=== PATIENT | female | born 1945 | race Caucasian/White ===

== ENCOUNTER 2016-08-24 11:09 | Inpatient (IN) | payer MEDICARE, OTHER ==
[~2016-08-24] VITALS: Ht 167.6 cm; Wt 106.8 kg
[~2016-08-24 11:09] MED LIST: CARV12.5 PO; GABA300C5 PO; HUMALOG SQ; LEVO.125 PO; PLAV75TA29 PO; SEVEL800 PO
[2016-08-24] MEDS ORDERED: HEPARIN SODIUM - SQ 10,000 UNITS/ML VIAL ONE (11:40)
[2016-08-24] MEDS ORDERED: BUPIVACAINE/EPINEPHRINE 0.5% PF 30 ML VIAL ONE (11:40)
[2016-08-24] MEDS ORDERED: HEPARIN SODIUM - IV 10,000 UNITS/10 ML VIAL ONE (11:40)
[2016-08-24] MEDS ORDERED: PROTAMINE SULFATE 50 MG/5 ML VIAL ONE (11:41)
[2016-08-24] MEDS ORDERED: LACTATED RINGER'S 1000 ML IV SCH (12:00)
[2016-08-24] MEDS ORDERED: SODIUM CHLORID 0.9% 500 ML IV SCH (12:00)
[2016-08-24] MEDS ORDERED: METOPROLOL TARTRATE 25 MG TAB PO PRN (12:00)
[2016-08-24] MEDS ORDERED: INSULIN HUMAN REGULAR 1,000 UNITS/10 ML VIAL SQ PRN (12:00)
[2016-08-24] MEDS ORDERED: PROPOFOL 200 MG/20 ML AMP IV ONE (12:00)
[2016-08-24] MEDS ORDERED: SODIUM CHLORID 0.9% 500 ML INJ 500 ML IV ONE (12:00)
[2016-08-24] MEDS ORDERED: ePHEDrine/NS 25 MG/5 ML SYR IV ONE (12:00)
[2016-08-24] MEDS ORDERED: ceFAZolin INJ 1,000 MG VIAL ONE (12:08)
[2016-08-24] MEDS ORDERED: SODIUM CHLORIDE 0.9% INJ 100 ML ONE (12:08)
[2016-08-24 12:33] LABS: AUTOMATED NEUTROPHIL # 6.7 TH/MM3 (1.8-7.7); BASOPHIL # 0.1 TH/MM3 (0-0.2); BASOPHIL % 0.9 % (0.0-2.0); EOSINOPHIL # 0.2 TH/MM3 (0-0.4); EOSINOPHIL % 2.4 % (0.0-4.0); HEMATOCRIT 33.9 % (35.0-46.0); HEMO FLAGS DIFF FINAL; LYMPH % 14.7 % (9.0-44.0); LYMPHOCYTE # 1.4 TH/MM3 (1.0-4.8); MEAN CELL VOLUME 94.3 FL (80.0-100.0); MEAN CORPUSCULAR HGB CONC 32.8 % (32.0-36.0); MONO % 11.1 % (0.0-8.0); NEUT % 70.9 % (16.0-70.0); PLATELET COUNT 245 TH/MM3 (150-450); RED BLOOD COUNT 3.59 MIL/MM3 (4.00-5.30); RED CELL DISTRIBUTION WIDTH 13.3 % (11.6-17.2); WHITE BLOOD COUNT 9.5 TH/MM3 (4.0-11.0)
[2016-08-24 12:40] LABS: APTT (PATIENT) 26.8 SEC (24.3-30.1); PROTHROMBIN TIME - PATIENT 10.6 SEC (9.8-11.6)
[2016-08-24 12:42] LABS: BICARBONATE 26.8 MEQ/L (21.0-32.0); POTASSIUM 4.3 MEQ/L (3.5-5.1)
[2016-08-24] MEDS ORDERED: MIDAZOLAM HCL 2 MG/2 ML VIAL ONE (12:45)
[2016-08-24] MEDS ORDERED: DEXAMETHASONE SOD PHOS 4 MG/ML VIAL ONE (12:45)
[2016-08-24] MEDS ORDERED: FAMOTIDINE 20 MG/2 ML VIAL ONE (12:45)
[2016-08-24] MEDS ORDERED: IOHEXOL 300 MG/ML 50 ML BTL (for RAD DIAG) OTHER ONE (13:53)
[2016-08-24] MEDS ORDERED: NITROGLYCERIN 1000 MCG/5 ML VIAL I-CORONARY ONE (14:46)
[2016-08-24] MEDS ORDERED: *morphine SULFATE 8 MG/ML PERIprocedure ONLY ONE ×3 (16:28→18:24)
[2016-08-24] MEDS ORDERED: *ONDANSETRON 4 MG VIAL PERIprocedural Use ONLY ONE (16:32)
[2016-08-24] MEDS: MEDIUM DOSE INSULIN NOVOLIN REGULAR SUPPLEMENTAL SCALE SQ SCH ×2 (16:50→20:44)
[2016-08-24] MEDS ORDERED: ONDANSETRON HCL 4 MG/2 ML VIAL IV PUSH PRN (17:00)
[2016-08-24] MEDS ORDERED: GLUCAGON 1 MG/ML VIAL OTHER PRN (17:00)
[2016-08-24] MEDS ORDERED: SODIUM CHLORIDE 0.9% FLUSH 10 ML FLUSH IV FLUSH PRN (17:00)
[2016-08-24] MEDS ORDERED: SODIUM CHLOR 0.9% 1000 ML INJ 1,000 ML IV ONE (17:00)
[2016-08-24] MEDS ORDERED: ATROPINE SULFATE 1 MG/10 ML SYRINGE IV PRN (17:00)
[2016-08-24] MEDS ORDERED: LIDOCAINE HCL 1% 20 ML VIAL INFIL PRN (17:00)
[2016-08-24] MEDS ORDERED: DEXTROSE 50% IN WATER 50 ML VIAL(D50) IV PUSH PRN (17:00)
[2016-08-24] MEDS ORDERED: CLOPIDOGREL 300 MG TAB PO SCH (17:00)
[2016-08-24] MEDS ORDERED: LORazepam 2 MG/ML VIAL IV PRN (17:00)
[2016-08-24] MEDS ORDERED: SODIUM CHLOR 0.9% 250 ML INJ 250 ML IV PRN (17:00)
[2016-08-24] MEDS ORDERED: DO NOT ADM ANY ANTICOAGULANT DRUGS XX PRN (17:00)
[2016-08-24] MEDS ORDERED: METOCLOPRAMIDE HCL 10 MG/2 ML VIAL IV PRN (17:00)
[2016-08-24] MEDS ORDERED: oxyCODONE/ACETAMINOPHEN 5 MG/325 MG TAB PO PRN (17:15)
[2016-08-24] MEDS ORDERED: NITROPRUSSIDE 50 MG/D5W 250 ML IV PRN ×2 (17:15)
[2016-08-24] MEDS ORDERED: ENALAPRILAT 1.25 MG/ML VIAL IV PUSH PRN (17:15)
[2016-08-24] MEDS ORDERED: POTASSIUM CHLORIDE 20 MEQ CONTROLLED RELEASE TAB PO PRN (17:15)
[2016-08-24] MEDS ORDERED: cloNIDine HCL 0.1 MG TAB PO PRN (17:15)
[2016-08-24] MEDS ORDERED: TEMAZEPAM 15 MG CAP PO PRN (17:15)
[2016-08-24] MEDS ORDERED: MISCELLANEOUS NURSING INFORMATION XX PRN (17:15)
[2016-08-24] MEDS ORDERED: LABETALOL HCL 100 MG/20 ML VIAL IV PRN (17:15)
[2016-08-24] MEDS ORDERED: MORPHINE SULFATE 4 MG/ML INJ IV PRN (17:15)
[2016-08-24 19:34] LABS: BICARBONATE 25.4 MEQ/L (21.0-32.0); POTASSIUM 5.1 MEQ/L (3.5-5.1)
[2016-08-24 20:00] VITALS: BP_SYST 109; BP_SYST 159; BP_DIAS 48; BP_DIAS 63; PULSE 61; PULSE 78; RESP 18; TEMP 97.8; O2SAT 96
[2016-08-24] MEDS: GABAPENTIN 300 MG CAP PO SCH ×2 (20:40→20:56)
[2016-08-24] MEDS: HEPARIN SODIUM - SQ 10,000 UNITS/ML VIAL SQ SCH (20:41)
[2016-08-24] MEDS: CARVEDILOL 12.5 MG TAB PO SCH (20:45)
[2016-08-24] MEDS: LISPRO INSULIN SQ SCH (20:58)
[2016-08-24 21:00] VITALS: PULSE 60
[2016-08-24 22:00] VITALS: PULSE 54
[2016-08-24 23:00] VITALS: PULSE 52
[2016-08-25] VITALS (11 sets, daily range): BP systolic 109–157; BP diastolic 48–71; PULSE 50–60; RESP 18–20; TEMP 97.6–98; O2SAT 99–100
[2016-08-25] MEDS: LISPRO INSULIN SQ SCH ×3 (05:28→16:00)
[2016-08-25] MEDS: MEDIUM DOSE INSULIN NOVOLIN REGULAR SUPPLEMENTAL SCALE SQ SCH ×3 (05:28→16:00)
[2016-08-25] MEDS: CILOSTAZOL 100 MG TAB PO SCH ×2 (05:28→16:00)
[2016-08-25] MEDS ORDERED: LEVOTHYROXINE SODIUM 125 MCG TAB PO SCH (06:00)
[2016-08-25] MEDS: GABAPENTIN 300 MG CAP PO SCH (07:53)
--- NOTE | 2016-08-25 07:53 | EKG ---
Date Performed: 08/24/2016 Time Performed: 12:00:32 PTAGE: 71 years EKG: Sinus rhythm WITH FIRST DEGREE AV BLOCK MARKED LEFT AXIS DEVIATION INTRAVENTRICULAR CONDUCTION DELAY ABNORMAL ECG Compared to PREVIOUS TRACING , there has been widening of the QRS complex and a leftward shift in the axis. There has been an increase in the lateral ST-T wave changes. EKG is now more suggestive of a p ossible old anteroseptal infarct. Clinical correlation is recommended. PREVIOUS TRACIN04/26/2005 0 1.27 DOCTOR: Buffy Hernandez Interpretating Date/Time 08/25/2016 07:53:32
[2016-08-25] MEDS: CARVEDILOL 12.5 MG TAB PO SCH (07:54)
[2016-08-25] MEDS: HEPARIN SODIUM - SQ 10,000 UNITS/ML VIAL SQ SCH (07:54)
[2016-08-25] MEDS: SEVELAMER CARBONATE 800 MG TAB PO SCH ×2 (07:59→12:00)
[2016-08-25] MEDS ORDERED: SODIUM CHLOR 0.9% 1000 ML INJ 1,000 ML IV PRN ×3 (08:54)
[2016-08-25] MEDS ORDERED: HEPARIN SODIUM - IV 10,000 UNITS/10 ML VIAL IVF PRN (09:00)
[2016-08-25] MEDS ORDERED: ACETAMINOPHEN 325 MG TAB PO PRN (09:00)
[2016-08-25] MEDS ORDERED: ALBUMIN HUMAN 25% 25 GM/100 ML BAGP IV PRN (09:00)
[2016-08-25] MEDS ORDERED: cloNIDine HCL 0.1 MG TAB PO PRN (09:00)
[2016-08-25] MEDS ORDERED: GELATIN 12 MM/7 MM FOAM TOP PRN (09:00)
[2016-08-25] MEDS ORDERED: SODIUM CHLORIDE 0.9% FLUSH 10 ML FLUSH IV FLUSH PRN (09:00)
[2016-08-25] MEDS ORDERED: GENTAMICIN SULFATE (DIALYSIS USE ONLY) 20 MG/2 ML VIAL IV PRN (09:00)
[2016-08-25] MEDS ORDERED: HEPARIN SODIUM - IV 10,000 UNITS/10 ML VIAL PRN (09:00)
[2016-08-25] MEDS ORDERED: NITROGLYCERIN 0.4 MG SL 25 TABS/BTL SL PRN (09:00)
[2016-08-25] MEDS ORDERED: ASPIRIN EC 81 MG TABEC PO SCH (09:00)
[2016-08-25] MEDS ORDERED: MANNITOL 12.5 GM/50 ML VIAL IV PRN (09:00)
[2016-08-25] MEDS ORDERED: ONDANSETRON HCL 4 MG/2 ML VIAL IV PRN (09:00)
[2016-08-25] MEDS ORDERED: CLOPIDOGREL 75 MG TAB PO SCH (09:00)
[2016-08-25] MEDS ORDERED: diphenhydrAMINE HCL 25 MG CAP PO PRN (09:00)
--- NOTE | 2016-08-25 09:06 | PD.CONS ---
HPI Service Nephrology Consult Requested By Dr. Brothers Reason for Consult Known ESRD on HD Primary Care Physician Anila (Garret) MD Ad[place] History of Present Illness The patient is a 71 yo [place] female who is known to our services for ESRD on HD. She was admitted to day surgery 08/[address] Brothers for re-vascularization of LLE with amputation of 2nd toe on same foot. We were consulted for dialysis as it is her regularly scheduled day and she will not be discharged in time to have outpatient HD. Feeling well. No NV. Anxious to eat. No specific complaints at the present. (Ayala Simmons) Review of Systems ROS Limitations: Other (ROS negative) (Ayala Simmons) Past Family Social History Allergies: Coded Allergies: Bumex (Verified Allergy, Severe, 08/23/16) PT STATES NOT ALLERGIC Norvasc (Verified Allergy, Severe, 08/23/16) Past Medical History ESRD on HD DM HTN CAD PVD Hx of Osteomyelitis CVA x2 Past Surgical History Sarah CABG 3 vessel RUE AVF formation Cataract repair L 2nd toe amputation Reported Medications Reported Meds & Active Scripts Active Reported Humalog Inj (Insulin Human Lispro) 1,000 Unit/10 Ml Vial Unknown Dose SQ ACHS Max dose at bedtime:( )units; sugars< 70,(0)units; sugars 150-199,(1)unit; sugars 200-249,(3)units; sugars 250-299,(5)units; sugars 300-349,(7)units; sugars more than 349,(9)units. Renvela (Sevelamer Carbonate) 800 Mg Tab 800 Mg PO TID Synthroid (Levothyroxine Sodium) 125 Mcg Tab 125 Mcg PO DAILY Gabapentin 300 Mg Cap 300 Mg PO BID Plavix (Clopidogrel Bisulfate) 75 Mg Tab 75 Mg PO DAILY Coreg (Carvedilol) 12.5 Mg Tab 12.5 Mg PO BID Active Ordered Medications Current Medications Medications (Trade) Dose Ordered Sig/Julius Route Start Time Stop Time Status Last Admin Miscellaneous Information ALL NURSING DEPARTME... UNSCH PRN XX 08/24/16 17:00 08/25/16 16:59 (D50w (Vial) Inj) 25 ml UNSCH PRN IV PUSH 08/24/16 17:00 (Glucagon Inj) 1 mg UNSCH PRN OTHER 08/24/16 17:00 (NS Flush) 2 ml UNSCH PRN IV FLUSH 08/24/16 17:00 (Xylocaine 1% Inj) 10 ml UNSCH PRN INFIL 08/24/16 17:00 (Ativan Inj) 0.5 mg Q10M PRN IV 08/24/16 17:00 Atropine Sulfate 0.5 mg 0.5 mg UNSCH PRN IV 08/24/16 17:00 (NS 250 ml Inj) 250 ml @ 250 mls/hr UNSCH PRN IV 08/24/16 17:00 (Reglan Inj) 10 mg Q4H PRN IV 08/24/16 17:00 (Zofran Inj) 4 mg Q6H PRN IV PUSH 08/24/16 17:00 (Heparin Inj) 5,000 units Q12H SQ 08/24/16 21:00 08/25/16 07:54 (Pletal) 100 mg BIDAC PO 08/25/16 07:00 08/25/16 05:28 (Plavix) 75 mg DAILY PO 08/25/16 09:00 08/25/16 07:54 (Morphine Inj) 4 mg Q30M PRN IV 08/24/16 17:15 (Restoril) 15 mg HS PRN PO 08/24/16 17:15 (Ecotrin Ec) 81 mg DAILY PO 08/25/16 09:00 08/25/16 07:53 (Vasotec Inj) 1.25 mg UNSCH PRN IV PUSH 08/24/16 17:15 Labetalol HCl 2.5 mg 2.5 mg Q10M PRN IV 08/24/16 17:15 (Nipride Inj/D5W Inj) 250 ml @ 0 mls/hr UNSCH PRN IV 08/24/16 17:15 (Catapres) 0.1 mg Q30M PRN PO 08/24/16 17:15 (KCl) 20 meq UNSCH PRN PO 08/24/16 17:15 (Percocet 5-325 Mg) 1 tab Q4H PRN PO 08/24/16 17:15 Miscellaneous Information "HOLD GLUCOPHAGE, GLUCOPH... UNSCH PRN XX 08/24/16 17:15 08/26/16 17:14 (Coreg) 12.5 mg BID PO 08/24/16 21:00 08/25/16 07:54 (Neurontin) 300 mg BID PO 08/24/16 21:00 08/25/16 07:53 (Synthroid) 125 mcg DAILY@06 PO 08/25/16 06:00 08/25/16 05:28 (Renvela) 800 mg TIDAC PO 08/25/16 08:00 08/25/16 07:59 Patient Own Medication PT OWN MED: INSU... ACHS SQ 08/24/16 21:00 08/24/16 20:58 Family History Non-contributory Social History , lives locally with her Non-smoker No EtOH No illicit (Ayala Simmons) Physical Exam Vital Signs Vital Signs Date Time Temp Pulse Resp B/P Pulse Ox O2 Delivery O2 Flow Rate FiO2 08/25/16 06:00 55 08/25/16 05:00 50 08/25/16 04:00 54 08/25/16 04:00 97.6 56 18 124/63 100 08/25/16 03:00 52 08/25/16 02:00 52 08/25/16 01:00 52 08/25/16 00:00 59 08/25/16 00:00 97.6 58 18 109/48 99 08/24/16 23:00 52 08/24/16 22:00 54 08/24/16 21:00 60 08/24/16 20:00 61 08/24/16 20:00 97.8 78 18 159/63 96 08/24/16 19:30 59 18 146/62 99 Nasal Cannula 2 08/24/16 19:15 62 20 157/64 97 Nasal Cannula 2 08/24/16 19:00 63 22 166/73 100 Nasal Cannula 2 08/24/16 18:45 62 22 158/66 99 Nasal Cannula 2 08/24/16 18:30 61 17 172/78 98 Nasal Cannula 2 08/24/16 18:15 56 17 158/66 100 Nasal Cannula 2 08/24/16 18:00 63 16 157/72 100 Nasal Cannula 2 08/24/16 17:45 60 16 167/64 99 Nasal Cannula 2 08/24/16 17:30 61 12 151/65 99 Nasal Cannula 2 08/24/16 17:15 58 16 147/69 100 Nasal Cannula 2 08/24/16 17:00 68 16 160/73 99 Nasal Cannula 2 08/24/16 16:45 66 16 154/67 99 Nasal Cannula 2 08/24/16 16:30 70 16 164/75 100 Nasal Cannula 2 08/24/16 16:24 97.7 80 16 162/76 100 Nasal Cannula 2 Physical Exam GENERAL: Pt sitting up in bed watching TV. Says she is feeling well and looks quite good. SKIN: Warm and dry. HEAD: Atraumatic. Normocephalic. EYES: Pupils equal and round. No scleral icterus. No injection or drainage. ENT: No nasal bleeding or discharge. Mucous membranes pink and moist. NECK: Trachea midline. No JVD. CARDIOVASCULAR: Regular rate and rhythm. RESPIRATORY: No accessory muscle use. Clear to auscultation. Breath sounds equal bilaterally. GASTROINTESTINAL: Abdomen soft, non-tender, nondistended. Hepatic and splenic margins not palpable. MUSCULOSKELETAL: Extremities without clubbing, cyanosis, or edema. L foot bandages in sterile dressings. NEUROLOGICAL: Awake and alert. Normal speech. PSYCHIATRIC: Appropriate mood and affect; insight and judgment normal. Laboratory Laboratory Tests Test 08/24/16 08/24/16 12:00 18:50 White Blood Count 9.5 Red Blood Count 3.59 Hemoglobin 11.1 Hematocrit 33.9 Mean Corpuscular Volume 94.3 Mean Corpuscular Hemoglobin 31.0 Mean Corpuscular Hemoglobin 32.8 Concent Red Cell Distribution Width 13.3 Platelet Count 245 Mean Platelet Volume 7.2 Neutrophils (%) (Auto) 70.9 Lymphocytes (%) (Auto) 14.7 Monocytes (%) (Auto) 11.1 Eosinophils (%) (Auto) 2.4 Basophils (%) (Auto) 0.9 Neutrophils # (Auto) 6.7 Lymphocytes # (Auto) 1.4 Monocytes # (Auto) 1.0 Eosinophils # (Auto) 0.2 Basophils # (Auto) 0.1 CBC Comment DIFF FINAL Differential Comment Prothrombin Time 10.6 Prothromb Time International 1.0 Ratio Activated Partial 26.8 Thromboplast Time Sodium Level 134 135 Potassium Level 4.3 5.1 Chloride Level 97 101 Carbon Dioxide Level 26.8 25.4 Anion Gap 10 9 Blood Urea Nitrogen 24 27 Creatinine 3.94 3.90 Estimat Glomerular Filtration 11 11 Rate Random Glucose 177 210 Calcium Level 9.7 9.4 Blood Type O NEGATIVE Antibody Screen NEGATIVE Blood Bank Comment (Ayala Simmons) Result Diagram: 08/24/16 1200 08/24/16 2270 Assessment and Plan Problem List: (1) ESRD (end stage renal disease) on dialysis Plan: Pt to be changed to admit status for HD as she will not be discharged in [facility] today to have outpatient tx. Order placed. Contacted HD nurse. HD orders in. Medications should be adjusted for the patient's ESRD. Avoid gadolinium. (2) Diabetes mellitus Plan: Continue home medications (on insulin pump) (3) Hypertension Plan: Continue home medications (4) Peripheral vascular disease Plan: s/p revascularization and toe amputation with Dr. Brothers (5) Amputated toe of left foot Plan: Mgmt as per Zev (Ayala Simmons) Assessment and Plan The exam, history, and the medical decision-making described in the above note were completed with the assistance of the PA-C. I reviewed and agree with the findings presented. I attest that I had a [id number] encounter with the patient on the same day, and personally performed and documented my assessment and findings in the medical record. (Kimberly Sampson MD) Ayala Simmons Aug 25, 2016 09:05 Kimberly Sampson MD Aug 25, 2016 17:10
--- NOTE | 2016-08-25 17:11 | HHI.PR ---
Subjective Remarks Patient was seen during her dialysis session today. Some difficulty accessing her fistula but currently we are achieving adequate blood flow. Patient alert and orientated. Lungs clear. Patient will likely be discharged today. Will follow-up in the outpatient dialysis unit. Objective Vital Signs Date Time Temp Pulse Resp B/P Pulse Ox O2 Delivery O2 Flow Rate FiO2 08/25/16 12:00 97.9 18 147/68 99 08/25/16 08:00 60 08/25/16 07:00 98.0 56 20 157/71 100 08/25/16 06:00 55 08/25/16 05:00 50 08/25/16 04:00 54 08/25/16 04:00 97.6 56 18 124/63 100 08/25/16 03:00 52 08/25/16 02:00 52 08/25/16 01:00 52 08/25/16 00:00 59 08/25/16 00:00 97.6 58 18 109/48 99 08/24/16 23:00 52 08/24/16 22:00 54 08/24/16 21:00 60 08/24/16 20:00 61 08/24/16 20:00 97.8 78 18 159/63 96 08/24/16 19:30 59 18 146/62 99 Nasal Cannula 2 08/24/16 19:15 62 20 157/64 97 Nasal Cannula 2 08/24/16 19:00 63 22 166/73 100 Nasal Cannula 2 08/24/16 18:45 62 22 158/66 99 Nasal Cannula 2 08/24/16 18:30 61 17 172/78 98 Nasal Cannula 2 08/24/16 18:15 56 17 158/66 100 Nasal Cannula 2 08/24/16 18:00 63 16 157/72 100 Nasal Cannula 2 08/24/16 17:45 60 16 167/64 99 Nasal Cannula 2 08/24/16 17:30 61 12 151/65 99 Nasal Cannula 2 08/24/16 17:15 58 16 147/69 100 Nasal Cannula 2 I/O 08/24/16 08/24/16 08/24/16 08/25/16 08/25/16 08/25/16 07:00 15:00 23:00 07:00 15:00 23:00 Intake Total 20 ml Balance 20 ml Intake IV Total 20 ml Result Diagram: 08/24/16 1200 08/24/16 1850 Kimberly Sampson MD Aug 25, 2016 17:11
--- NOTE | 2016-08-27 08:26 | MP ---
cc: JULIA BROTHERS M.D., STEVE M.D. DATE OF SURGERY 08/24/2016 PREOPERATIVE DIAGNOSIS Ischemic gangrene left second toe. POSTOPERATIVE DIAGNOSIS Ischemic gangrene left second toe. PROCEDURE Left superficial femoral and popliteal orbital atherectomy with percutaneous balloon angioplasty - drug coated. SURGEON Julia Brothers MD CHUCK TENDER TIM Winston ANESTHESIA Local MAC DESCRIPTION OF THE OPERATIVE PROCEDURE With the patient in the supine position and under IV sedation, the lower abdomen, both groins and thighs were prepped with Betadine and draped in a sterile fashion. One gram of Ancef was administered prophylactically and following a protocol time-out, the skin and subcutaneous tissue surrounding the right common femoral access site infiltrated with 0.5% Marcaine with epinephrine. Utilizing ultrasound guidance, an 18 gauge needle was negotiated into the right mid common femoral, retrograde approach. A J-wire was advanced under fluoroscopic guidance into the right external iliac artery. An Advantage guidewire Omni catheter combination was negotiated into the subrenal aorta. Diluted contrast was injected through the Omni catheter in conjunction with digital C-arm fluoroscopic imaging. The distal aorta, both common internal and external iliac arteries were widely patent throughout. The proximal left superficial femoral artery exhibited a high-grade, diffuse stenosis along its proximal one-third, at least 90% stenotic at its origin. The more distal SFA appeared less disease, however, the popliteal exhibited diffuse stenosis from the adductor level to the knee joint level. At the mid above-knee popliteal, near-complete occlusion was apparent. The below-knee popliteal was relatively non-diseased and a normal-appearing posterior tibial provided uninterrupted flow to the left foot with robust visualization of the plantar arch, tarsal and metatarsal vessels. An Advantage guidewire was negotiated over the aortic bifurcation into the left iliac. The 5-Taiwanese hemostatic sheath was exchanged for a 45 cm Taiwanese sheath which was guided over the aortic bifurcation and parked within the proximal left common femoral artery. The patient was systemically heparinized with 5000 units. During the course of the procedure, additional 1000 units aliquots of heparin were administered to maintain ACT above 250. The left popliteal and SFA disease was orbitally atherectomized with a CSI 2.0 solid crown spun at 60, 90 and 140 thousand RPMs. Post-atherectomy, the popliteal was treated with a 4 x 130 mm balloon inflated to 8 atmospheres, two separate inflations of two minutes each followed by a 5 x 130 mm drug coated balloon inflated to 8 atmospheres for three minutes. The SFA atherectomized area was treated with a 5 x 80 mm balloon followed by a 5 x 60 drug coated balloon, identical inflations and times. Completion angiogram revealed no residual stenotic disease with rapid flow through the left SFA to the plantar arch. The long 6-Taiwanese sheath was exchanged for a short 6-Taiwanese sheath. The Heparin was not reversed. The patient returned to recovery in stable condition having tolerated the procedure well. MD SHAKEEL Mejía/LIDYA /7:54 AM /8:15 AM
--- NOTE | 2016-09-09 08:34 | MP ---
cc: JULIA BROTHERS M.D. DATE OF SURGERY 08/24/2016 PREOPERATIVE DIAGNOSIS Ischemic gangrene left second toe. POSTOPERATIVE DIAGNOSIS Ischemic gangrene left second toe. OPERATIVE PROCEDURE Amputation left second toe. SURGEON Viral Brothers MD CUSTOMER SERVICE SUPERVISOR TIM Winston ANESTHESIA Local MAC. DESCRIPTION OF THE OPERATIVE PROCEDURE With the patient in supine position and under IV sedation following left SFA and popliteal orbital atherectomy/percutaneous balloon angioplasty, digital block left second toe was accomplished with 1% Xylocaine with epinephrine. A circumferential "fish-mouth shaped" incision was performed around the base of the left second toe. Superficial skin flaps were dissected to the metatarsophalangeal joint. Flexor and extensor tendons were transected. The proximal phalanx was transected with a bone cutter. The wound was irrigated with saline. Skin edges were reapproximated with skin jessika. Sterile dressing applied. No operative complications. The patient returned to the recovery room in stable condition having tolerated the procedure well. Julia Brothers MD JTS/SSB /3:25 PM /8:29 AM
== END 2016-08-25 18:42 | disposition home or self-care (01) | DRG 270 ==
LOC: HSDC 11:09 → HCIS 19:45 → OBSVTOIN 19:45
PROVIDERS: ADMIT Surgery Vascular Surgery; ATTEND Surgery Vascular Surgery
PROC: 04CN3ZZ Extirpation of Matter from Left Popliteal Artery, Percutaneous Approach (ICD-10-PCS; 2016-08-24)
PROC: B41DZZZ Fluoroscopy of Aorta and Bilateral Lower Extremity Arteries (ICD-10-PCS; 2016-08-24)
PROC: 0Y6S0Z3 Detachment at Left 2nd Toe, Low, Open Approach (ICD-10-PCS; 2016-08-24)
PROC: 04CL3ZZ Extirpation of Matter from Left Femoral Artery, Percutaneous Approach (ICD-10-PCS; principal; 2016-08-24 13:10)
PROC: 047L34Z Dilation of Left Femoral Artery with Drug-eluting Intraluminal Device, Percutaneous Approach (ICD-10-PCS; 2016-08-24 13:10)
PROC: 047N34Z Dilation of Left Popliteal Artery with Drug-eluting Intraluminal Device, Percutaneous Approach (ICD-10-PCS; 2016-08-24 13:10)
PROC: 5A1D00Z (ICD-10-PCS; 2016-08-25)
DX: I70.262 Atherosclerosis of native arteries of extremities with gangrene, left leg (principal); N18.6 End stage renal disease; E11.22 Type 2 diabetes mellitus with diabetic chronic kidney disease; I12.0 Hypertensive chronic kidney disease with stage 5 chronic kidney disease or end stage renal disease; Z96.41 Presence of insulin pump (external) (internal); E78.5 Hyperlipidemia, unspecified; I25.10 Atherosclerotic heart disease of native coronary artery without angina pectoris; E66.9 Obesity, unspecified; Z68.38 Body mass index [BMI] 38.0-38.9, adult; Z99.2 Dependence on renal dialysis; Z79.4 Long term (current) use of insulin; Z95.1 Presence of aortocoronary bypass graft
CPT/HCPCS: 75710; 80048; 82948; 85025; 85610; 85730; 86850; 86900; 86901; 88305; 88311; 90935; 93005; C1725; C1769; C1887; C2623; J0690; J1100; J1644; J2250; J2270; J2405; J2720; J3010; J7040; Q9967

== ENCOUNTER 2017-07-21 11:36 | Inpatient (IN) | payer MEDICARE, OTHER ==
[2017-07-21] VITALS (8 sets, daily range): BP systolic 144–222; BP diastolic 63–87; PULSE 61–75; RESP 16–20; TEMP 97.8–98.1; O2SAT 92–99
[~2017-07-21] VITALS: Ht 167.6 cm; Wt 107.0 kg
[2017-07-21] MEDS ORDERED: ONDANSETRON HCL 4 MG/2 ML VIAL IVP ONE (12:00)
[2017-07-21] MEDS ORDERED: SODIUM CHLORID 0.9% 500 ML INJ 500 ML IV ONE (12:00)
--- NOTE | 2017-07-21 12:33 | PD ---
HPI Chief Complaint: GI Complaint Time Seen by Provider: 11:54 Travel History International Travel<30 days: No Contact w/Intl Traveler<30days: No Traveled to known affect area: No History of Present Illness HPI 71-year-old female that presents to the ED for evaluation of nausea and vomiting since yesterday. Per patient she has significant history of CVA, kidney failure on dialysis and diabetes as well as history of ACS that presents to the ED for evaluation of emesis 7. Per patient she feels dizzy and she gets lightheaded whenever she stands up. She's also been noted to be pale. She denies any blood in her emesis. Denies any abdominal pain no chest pain or shortness of breath. She states that opening her eyes makes the symptoms worse. She denies any head injury or any new foods or drinks the car caused this. No diarrhea or bowel movement changes. She's had normal bowel movements. Takes blood thinners. Denies any symptoms like this in the past. She went to see her doctor who told her to come here to get evaluated. She had her last dialysis yesterday and she states that she was doing fine except she felt little dry yesterday. She has no other medical issues. Denies any numbness, tingling, weakness. She is hard to get a history as her nausea appears to be affecting her. PFSH Past Medical History Arthritis: Yes Autoimmune Disease: No Blood Disorders: No Cancer: No Cardiovascular Problems: Yes High Cholesterol: Yes Congestive Heart Failure: Yes Diabetes: Yes Endocrine: Yes Genitourinary: Yes (DIALYSIS MON, WED, FRI) Hepatitis: No Hiatal Hernia: No Hypertension: Yes Immune Disorder: No Musculoskeletal: Yes Neurologic: Yes (3 CAMERON IN THE PAST) Psychiatric: No Reproductive: No Respiratory: No Renal Failure: Yes Thyroid Disease: Yes Past Surgical History Abdominal Surgery: Yes (GALLBLADDER 1973, APPY 194) AICD: No Body Medical Devices: INSULIN PUMP, RUE DIALYSIS GRAFT STERNAL WIRES Cardiac Surgery: Yes (BYPASS TRIPLE ) Ear Surgery: No Endocrine Surgery: Yes Eye Surgery: Yes (CATARCT BILATERAL) Genitourinary Surgery: No Gynecologic Surgery: No Joint Replacement: No Oral Surgery: No Pacemaker: No Thoracic Surgery: Yes Social History Alcohol Use: No Tobacco Use: No Substance Use: No Allergies-Medications (Allergen,Severity, Reaction): Coded Allergies: amlodipine (Unverified Allergy, Severe, 8/15/17) bumetanide (Unverified Allergy, Severe, 01/11/17) PT STATES NOT ALLERGIC Reported Meds & Prescriptions Reported Meds & Active Scripts Active Reported Sensipar (Cinacalcet) 30 Mg Tab 30 Mg PO DAILY Humalog Inj (Insulin Human Lispro) 1,000 Unit/10 Ml Vial SQ ACHS SLIDING SCALE DIRECTED Synthroid (Levothyroxine Sodium) 125 Mcg Tab 125 Mcg PO DAILY Gabapentin 300 Mg Cap 300 Mg PO BID Plavix (Clopidogrel Bisulfate) 75 Mg Tab 75 Mg PO DAILY Coreg (Carvedilol) 12.5 Mg Tab 12.5 Mg PO BID Review of Systems Except as stated in HPI: all other systems reviewed are Neg Physical Exam Narrative GENERAL: SKIN: Warm and dry. HEAD: Atraumatic. Normocephalic. EYES: Pupils equal and round. No scleral icterus. No injection or drainage. ENT: No nasal bleeding or discharge. Mucous membranes pink and moist. Tongue is midline. No uvula deviation. TMS are clear bilaterally with no sign of infection or perforation. NECK: Trachea midline. No JVD. CARDIOVASCULAR: Regular rate and rhythm. No murmurs, S3, S4. RESPIRATORY: No accessory muscle use. Clear to auscultation. Breath sounds equal bilaterally. GASTROINTESTINAL: Abdomen soft, non-tender, nondistended. Hepatic and splenic margins not palpable. MUSCULOSKELETAL: Extremities without clubbing, cyanosis, or edema. No obvious deformities. Full range of motion of the upper and lower extremities bilaterally. 2+ pulses bilaterally. NEUROLOGICAL: Awake and alert. No obvious cranial nerve deficits. Motor grossly within normal limits. Five out of 5 muscle strength in the arms and legs. Normal speech. PSYCHIATRIC: Appropriate mood and affect; insight and judgment normal. Data Data Last Documented VS Vital Signs Date Time Temp Pulse Resp B/P (MAP) Pulse Ox O2 Delivery O2 Flow Rate FiO2 07/21/17 13:26 19 07/21/17 12:53 64 193/87 (122) 96 Room Air 07/21/17 11:37 98.1 Orders Orders Complete Blood Count With Diff (07/21/17 11:58) Comprehensive Metabolic Panel (07/21/17 11:58) Lipase (07/21/17 11:58) Lactic Acid (07/21/17 11:58) Prothrombin Time / Inr (Pt) (07/21/17 11:58) Act Partial Throm Time (Ptt) (07/21/17 11:58) Urinalysis - C+S If Indicated (07/21/17 11:58) Iv Access Insert/Monitor (07/21/17 11:58) Ecg Monitoring (07/21/17 11:58) Oximetry (07/21/17 11:58) Ondansetron Inj (Zofran Inj) (07/21/17 12:00) Electrocardiogram (07/21/17 11:58) Sodium Chlorid 0.9% 500 Ml Inj (Ns 500 M (07/21/17 12:00) Troponin I (07/21/17 11:58) Ckmb (Isoenzyme) Profile (07/21/17 11:58) Chest, Single Ap (07/21/17 ) Ct Brain W/O Iv Contrast(Rout) (07/21/17 ) Promethazine Inj (Phenergan Inj) (07/21/17 13:15) CKMB (07/21/17 12:57) CKMB% (07/21/17 12:57) Metoclopramide Inj (Reglan Inj) (07/21/17 14:00) Morphine Inj (Morphine Inj) (07/21/17 14:00) Aspirin (Aspirin) (07/21/17 14:00) Heparin-D5w 25,000 U/250 Ml (Heparin-D5w (07/21/17 16:00) Act Partial Throm Time (Ptt) (07/21/17 14:07) Prothrombin Time / Inr (Pt) (07/21/17 14:07) Cbc No Diff, Includes Plts (07/21/17 14:07) Cbc No Diff, Includes Plts (07/24/17 06:00) Act Partial Throm Time (Ptt) (07/21/17 21:07) Occult Blood (Hemoccult) Stool (07/21/17 14:07) Nitroglycerin 2% Oint (Nitroglycerin 2% (07/21/17 14:30) Admit Order (Ed Use Only) (07/21/17 14:25) Admit To Inpatient (07/21/17 ) Vital Signs (Adult) Q4H (07/21/17 14:24) Activity Oob With Assistance (07/21/17 14:24) Project Design Engineer / Telemetry .CONTINUOUS (07/21/17 14:24) Diet Npo (07/21/17 Dinner) Sodium Chloride 0.9% Flush (Ns Flush) (07/21/17 14:30) Sodium Chloride 0.9% Flush (Ns Flush) (07/21/17 21:00) Basic Metabolic Panel (Bmp) (07/22/17 06:00) Complete Blood Count With Diff (07/22/17 06:00) Creatine Kinase (Cpk) (07/21/17 19:00) Creatine Kinase (Cpk) (07/22/17 01:00) Troponin I (07/21/17 19:00) Troponin I (07/22/17 01:00) Electrocardiogram (07/21/17 19:00) Electrocardiogram (07/22/17 01:00) Pt Request For Service (07/21/17 14:24) Case Management Consult (07/21/17 14:24) Naloxone Inj (Narcan Inj) (07/21/17 14:30) Inpatient Certification (07/21/17 ) Labs Laboratory Tests Test 07/21/17 12:57 White Blood Count 12.3 TH/MM3 Red Blood Count 3.82 MIL/MM3 Hemoglobin 12.4 GM/DL Hematocrit 36.8 % Mean Corpuscular Volume 96.2 FL Mean Corpuscular Hemoglobin 32.3 PG Mean Corpuscular Hemoglobin Concent 33.6 % Red Cell Distribution Width 14.2 % Platelet Count 314 TH/MM3 Mean Platelet Volume 7.4 FL Neutrophils (%) (Auto) 85.9 % Lymphocytes (%) (Auto) 9.0 % Monocytes (%) (Auto) 4.2 % Eosinophils (%) (Auto) 0.2 % Basophils (%) (Auto) 0.7 % Neutrophils # (Auto) 10.5 TH/MM3 Lymphocytes # (Auto) 1.1 TH/MM3 Monocytes # (Auto) 0.5 TH/MM3 Eosinophils # (Auto) 0.0 TH/MM3 Basophils # (Auto) 0.1 TH/MM3 CBC Comment DIFF FINAL Differential Comment Prothrombin Time 10.3 SEC Prothromb Time International Ratio 1.0 RATIO Activated Partial Thromboplast Time 25.9 SEC Blood Urea Nitrogen 32 MG/DL Creatinine 4.16 MG/DL Random Glucose 307 MG/DL Total Protein 8.3 GM/DL Albumin 3.5 GM/DL Calcium Level 10.4 MG/DL Alkaline Phosphatase 110 U/L Aspartate Amino Transf (AST/SGOT) 39 U/L Alanine Aminotransferase (ALT/SGPT) 16 U/L Total Bilirubin 0.4 MG/DL Sodium Level 137 MEQ/L Potassium Level 4.2 MEQ/L Chloride Level 101 MEQ/L Carbon Dioxide Level 26.8 MEQ/L Anion Gap 9 MEQ/L Estimat Glomerular Filtration Rate 11 ML/MIN Lactic Acid Level 1.2 mmol/L Total Creatine Kinase 230 U/L Creatine Kinase MB 18.3 NG/ML Creatine Kinase MB % 8.0 % Troponin I 12.70 NG/ML Lipase 178 U/L MDM Medical Decision Making Medical Screen Exam Complete: Yes Emergency Medical Condition: Yes Medical Record Reviewed: Yes Interpretation(s) CBC & BMP Diagram 07/21/17 12:57 Total Protein 8.3 H, Albumin 3.5, Calcium Level 10.4 H, Alkaline Phosphatase 110 , Aspartate Amino Transf (AST/SGOT) 39 H, Alanine Aminotransferase (ALT/SGPT) 16 , Total Bilirubin 0.4 Last Impressions Chest X-Ray 07/21/17 0000 Signed Impressions: Service Date/Time: , July 21, 2017 12:13 - CONCLUSION: 1. Chronic appearing interstitial changes with a small area of atelectasis on the left. No acute abnormality. Satish Sanchez MD troponin of 12.7 CKMB elevated EKG shows atrial fibrillation but no ST elevation read by me and attending. Differential Diagnosis Hypertension versus hypertensive emergency versus nausea and vomiting versus intractable nausea and vomiting versus a typical chest pain versus dehydration versus electrolyte abnormality versus CVA Narrative Course 71-year-old female that presents to the ED for evaluation of nausea and vomiting. Patient was properly examined and was found to have signs and symptoms which appear to be consistent with motion vomiting. Platelet this time the patient does have significant medical history. She's had her her dialysis yesterday. She does appear to be very hypertensive on exam. Labs and imaging were ordered. Patient was given antiemetics and fluids. Labs and imaging came back and show what appears to be possible NSTEMI. patient still denies chest pain. Questionable whether this is angina equivalent. Case discussed with Dr Hinojosa who evaluated patient and agrees with admission. Started on nitroglycerin, aspirin, heparin. Admitted to Dr Blake who agrees to admission. Dr Khanna for cardiology agrees to follow patient and treatment plan. Procedures EKG Prior to Arrival: No Diagnosis Primary Impression: NSTEMI (non-ST elevated myocardial infarction) Additional Impression: ESRD (end stage renal disease) on dialysis Admitting Information Admitting Physician Requests: Admit Trino Koch Jul 21, 2017 12:33
--- NOTE | 2017-07-21 13:02 | RADRPT ---
EXAM DATE/TIME: 07/21/2017 12:13 [facility] COMPARISON: No previous studies available for comparison. INDICATIONS : Nausea, vomiting, weakness, short of breath for 24 hours MEDICAL HISTORY : Cardiovascular disease. SURGICAL HISTORY : CABG. ENCOUNTER: Initial ACUITY: 1 day PAIN SCORE: 0/10 LOCATION: Bilateral chest FINDINGS: The heart is mildly enlarged. The patient is post median sternotomy. There are chronic appearing inte rstitial changes. There is a small band of linear atelectasis in the left midlung field. The visualized bony structures are grossly intact. CONCLUSION: 1. Chronic appearing interstitial changes with a small area of atelectasis on the left. No acute abno rmality. Satish Sanchez MD on July 21, 2017 at 12:58 Board Certified Radiologist. This report was verified electronically.
[2017-07-21] MEDS ORDERED: PROMETHAZINE INJ 25 MG/ML VIAL IM ONE (13:15)
[2017-07-21 13:16] LABS: AUTOMATED NEUTROPHIL # 10.5 TH/MM3 (1.8-7.7); BASOPHIL # 0.1 TH/MM3 (0-0.2); BASOPHIL % 0.7 % (0.0-2.0); EOSINOPHIL % 0.2 % (0.0-4.0); HEMATOCRIT 36.8 % (35.0-46.0); HEMOGLOBIN 12.4 GM/DL (11.6-15.3); LYMPHOCYTE # 1.1 TH/MM3 (1.0-4.8); MEAN CELL VOLUME 96.2 FL (80.0-100.0); MEAN CORPUSCULAR HEMOGLOBIN 32.3 PG (27.0-34.0); MEAN CORPUSCULAR HGB CONC 33.6 % (32.0-36.0); MEAN PLATELET VOLUME 7.4 FL (7.0-11.0); MONO % 4.2 % (0.0-8.0); MONOCYTE # 0.5 TH/MM3 (0-0.9); NEUT % 85.9 % (16.0-70.0); PLATELET COUNT 314 TH/MM3 (150-450); RED BLOOD COUNT 3.82 MIL/MM3 (4.00-5.30); RED CELL DISTRIBUTION WIDTH 14.2 % (11.6-17.2); WHITE BLOOD COUNT 12.3 TH/MM3 (4.0-11.0)
[2017-07-21 13:32] LABS: PROTHROMBIN TIME - PATIENT 10.3 SEC (9.8-11.6)
[2017-07-21 13:35] LABS: ALBUMIN 3.5 GM/DL (3.4-5.0); ALT (GPT) 16 U/L (10-53); AST (GOT) 39 U/L (15-37); BICARBONATE 26.8 MEQ/L (21.0-32.0); BLOOD UREA NITROGEN 32 MG/DL (7-18); CALCIUM 10.4 MG/DL (8.5-10.1); CHLORIDE 101 MEQ/L (98-107); CREATININE 4.16 MG/DL (0.50-1.00); GLOMERULAR FILTRATION RATE 11 ML/MIN (>89); GLUCOSE,RANDOM 307 MG/DL (74-106); SODIUM (NA) 137 MEQ/L (136-145)
[2017-07-21 13:37] LABS: ALKALINE PHOSPHATASE 110 U/L (45-117); TOTAL BILIRUBIN ADULT 0.4 MG/DL (0.2-1.0); TOTAL PROTEIN 8.3 GM/DL (6.4-8.2)
[2017-07-21 13:58] LABS: TROPONIN I 12.7 NG/ML (0.02-0.05)
[2017-07-21] MEDS ORDERED: METOCLOPRAMIDE HCL 10 MG/2 ML VIAL IV PUSH ONE (14:00)
[2017-07-21] MEDS: ASPIRIN 325 MG TAB PO ONE ×2 (14:00→14:06)
[2017-07-21] MEDS ORDERED: MORPHINE SULFATE 4 MG/ML INJ IV PUSH ONE (14:00)
[2017-07-21] MEDS ORDERED: CINA30 PO (14:01)
[2017-07-21] MEDS ORDERED: NITROGLYCERIN 2% OINT 1 GM PACKET TOPICAL ONE (14:30)
[2017-07-21] MEDS ORDERED: SODIUM CHLORIDE 0.9% FLUSH 10 ML FLUSH IV FLUSH PRN (14:30)
[2017-07-21] MEDS ORDERED: NALOXONE HCL 0.4 MG/ML AMP IV PUSH PRN (14:30)
--- NOTE | 2017-07-21 14:36 | HHI.HP ---
[facility] Anila (Garret) MD [place] Admission Diagnosis NSTEMI, intractable nausea and vomit, angina equivalent? Diagnoses: Travel History International Travel<30 Days: No Contact w/Intl Traveler <30 Da: No Traveled to Known Affected Are: No History of Present Illness History from patient, ER physician communication, review of her medical records. Patient is quite lethargic at the time of my examination. She reports that she just got morphine prior to my arrival. She reports for the past 24 hours, she has been extremely nauseous. She vomited 7 times. Denies any blood in her vomitus. Denies any associated abdominal pain. Denies any diarrhea or constipation. Denies any chest pain or tightness. Denies shortness of breath. Report she was having cold chills at the time for the past 24 hours. Denies any sinus symptoms/cough/fever/nausea/vomiting/diarrhea/urinary burning or pain on urination in the past 1-2 weeks apart from her current symptoms in the past 24 hours. Patient's at the bedside stated that patient was here in August 2016 for her left toes amputation by Dr. Brothers. Prior to that, she was at [facility] and had undergone cardiac stress test and angiogram for cardiac clearance by Dr. De Leon. She then had her amputation and had another complicated infection in her toes within a few weeks for which she was treated with antibiotics by rib knitter Dr. Diego. Her last hospitalization was about 10 months ago. In the emergency room, patient was found to have troponin of 12. As far as the family knows, she has not had any similar lab abnormalities. She is end-stage renal disease patient on hemodialysis. She last received her dialysis yesterday. To the ER PA, patient was complaining of pain prior to my arrival. However she reported pain to me and the ER physician as all over. It is somewhat difficult called to get history from the patient at this time because she is falling asleep during interview. 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 Father with cancer. Social History Denies smoking/alcohol abuse/drug abuse. Physical Exam Vital Signs Vital Signs Date Time Temp Pulse Resp B/P (MAP) Pulse Ox O2 Delivery O2 Flow Rate FiO2 07/21/17 13:26 19 07/21/17 12:53 64 20 193/87 (122) 96 Room Air 07/21/17 11:37 98.1 69 16 222/86 (131) 98 Room Air Physical Exam GENERAL: This is a well-nourished, well-developed patient, in no apparent distress. but is drowsy SKIN: No rashes, ecchymoses or lesions. Cool and dry. HEAD: Atraumatic. Normocephalic. No temporal or scalp tenderness. EYES: No scleral icterus. No injection or drainage. ENT: Nose without bleeding, purulent drainage or septal hematoma. Airway patent. NECK: Trachea midline. No JVD CARDIOVASCULAR: Regular rate and rhythm without murmurs, gallops, or rubs. RESPIRATORY: Clear to auscultation. Breath sounds equal bilaterally. No wheezes , rales, or rhonchi. GASTROINTESTINAL: Abdomen soft, non-tender, nondistended. No guarding. MUSCULOSKELETAL: Extremities without clubbing, cyanosis, or edema. . No calf tenderness. NEUROLOGICAL: Awake and alert. Motor and sensory grossly within normal limits. Normal speech. Laboratory Laboratory Tests Test 07/21/17 12:57 White Blood Count 12.3 Red Blood Count 3.82 Hemoglobin 12.4 Hematocrit 36.8 Mean Corpuscular Volume 96.2 Mean Corpuscular Hemoglobin 32.3 Mean Corpuscular Hemoglobin Concent 33.6 Red Cell Distribution Width 14.2 Platelet Count 314 Mean Platelet Volume 7.4 Neutrophils (%) (Auto) 85.9 Lymphocytes (%) (Auto) 9.0 Monocytes (%) (Auto) 4.2 Eosinophils (%) (Auto) 0.2 Basophils (%) (Auto) 0.7 Neutrophils # (Auto) 10.5 Lymphocytes # (Auto) 1.1 Monocytes # (Auto) 0.5 Eosinophils # (Auto) 0.0 Basophils # (Auto) 0.1 CBC Comment DIFF FINAL Differential Comment Prothrombin Time 10.3 Prothromb Time International Ratio 1.0 Activated Partial Thromboplast Time 25.9 Blood Urea Nitrogen 32 Creatinine 4.16 Random Glucose 307 Total Protein 8.3 Albumin 3.5 Calcium Level 10.4 Alkaline Phosphatase 110 Aspartate Amino Transf (AST/SGOT) 39 Alanine Aminotransferase (ALT/SGPT) 16 Total Bilirubin 0.4 Sodium Level 137 Potassium Level 4.2 Chloride Level 101 Carbon Dioxide Level 26.8 Anion Gap 9 Estimat Glomerular Filtration Rate 11 Lactic Acid Level 1.2 Total Creatine Kinase 230 Creatine Kinase MB 18.3 Creatine Kinase MB % 8.0 Troponin I 12.70 Lipase 178 Result Diagram: 07/21/17 1257 07/21/17 1257 Imaging Last 48 hours Impressions Chest X-Ray 07/21/17 0000 Signed Impressions: Service Date/Time: June 12:13 - CONCLUSION: 1. Chronic appearing interstitial changes with a small area of atelectasis on the left. No acute abnormality. Satish Sanchez MD Caprini VTE Risk Assessment Caprini VTE Risk Assessment: Mod/High Risk (score >= 2) Caprini Risk Assessment Model Point Value = 1 Point Value = 2 Point Value = 3 Point Value = 5 Age 41-60 Minor surgery BMI > 25 kg/m2 Swollen legs Varicose veins or History of unexplained or recurrent spontaneous Oral contraceptives or hormone replacement Sepsis (< 1 month) Serious lung disease, including pneumonia (< 1 month) Abnormal pulmonary function Acute myocardial infarction Congestive heart failure (< 1 month) History of inflammatory bowel disease Medical patient at bed rest Age 61-74 Arthroscopic surgery Major open surgery (> 45 min) Laparoscopic surgery (> 45 min) Malignancy Confined to bed (> 72 hours) Immobilizing plaster cast Central venous access Age >= 75 History of VTE Family history of VTE Factor V Leiden Prothrombin [id number] Lupus anticoagulant Anticardiolipin antibodies Elevated serum homocysteine Heparin-induced thrombocytopenia Other congenital or acquired thrombophilia Stroke (< 1 month) Elective arthroplasty Hip, pelvis, or leg fracture Acute spinal cord injury (< 1 month) Prophylaxis Regimen Total Risk Factor Score Risk Level Prophylaxis Regimen 0-1 Low Early ambulation 2 Moderate Order ONE of the following: *Sequential Compression Device (SCD) *Heparin 5000 units SQ BID 3-4 Higher Order ONE of the following medications: *Heparin 5000 units SQ TID *Enoxaparin/Lovenox 40 mg SQ daily (WT < 150 kg, CrCl > 30 mL/min) *Enoxaparin/Lovenox 30 mg SQ daily (WT < 150 kg, CrCl > 10-29 mL/min) *Enoxaparin/Lovenox 30 mg SQ BID (WT < 150 kg, CrCl > 30 mL/min) AND/OR *Sequential Compression Device (SCD) 5 or more Highest Order ONE of the following medications: *Heparin 5000 units SQ TID (Preferred with Epidurals) *Enoxaparin/Lovenox 40 mg SQ daily (WT < 150 kg, CrCl > 30 mL/min) *Enoxaparin/Lovenox 30 mg SQ daily (WT < 150 kg, CrCl > 10-29 mL/min) *Enoxaparin/Lovenox 30 mg SQ BID (WT < 150 kg, CrCl > 30 mL/min) AND *Sequential Compression Device (SCD) Assessment and Plan Assessment and Plan Impression: Persistent nausea/vomiting. Possible angina equivalent. 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 Nitropaste. Serial cardiac enzymes and EKGs. Head CT. Heparin drip to start if head CT is negative for any acute bleed. Cardiology was consulted. ER PA discussed with tank cleaning supervisor. EKG personally reviewed. Sinus rhythm, left axis. Q waves in anterolateral leads. Age indeterminate. Obtain records from [facility]. Nephrologic consult for dialysis. Nothing by mouth. Start patient on D5 fluids at 42 cc per hour. Monitor fingersticks. DVT prophylaxis. We'll start heparin drip if head CT is negative. Discussed Condition With patient, , ER PA and physician, nursing staff Physician Certification 2 Midnight Certification Type: Admission for Inpatient Services Order for Inpatient Services The services are ordered in accordance with Medicare regulations or non- Medicare payer requirements, as applicable. In the case of services not specified as inpatient-only, they are appropriately provided as inpatient services in accordance with the 2-midnight benchmark. Estimated LOS (days): 2 days is the estimated time the patient will need to remain in the hospital, assuming treatment plan goals are met and no additional complications. Post-Hospital Plan: Home Lupe Blake MD Jul 21, 2017 14:36
[2017-07-21 14:57] LABS: HEMATOCRIT 33.9 % (35.0-46.0); HEMOGLOBIN 11.9 GM/DL (11.6-15.3); MEAN CELL VOLUME 95.8 FL (80.0-100.0); MEAN CORPUSCULAR HEMOGLOBIN 33.7 PG (27.0-34.0); MEAN CORPUSCULAR HGB CONC 35.2 % (32.0-36.0); MEAN PLATELET VOLUME 7.1 FL (7.0-11.0); PLATELET COUNT 269 TH/MM3 (150-450); RED BLOOD COUNT 3.54 MIL/MM3 (4.00-5.30); RED CELL DISTRIBUTION WIDTH 14.2 % (11.6-17.2); WHITE BLOOD COUNT 13.4 TH/MM3 (4.0-11.0)
[2017-07-21] MEDS ORDERED: NITROGLYCERIN 0.4 MG SL 25 TABS/BTL SL PRN (15:15)
[2017-07-21 15:19] LABS: PROTHROMBIN TIME - PATIENT 10.3 SEC (9.8-11.6)
--- NOTE | 2017-07-21 15:42 | PD ---
Physical Exam Date Seen by Provider: Jul 21, 2017 Time Seen by Provider: 15:35 Narrative 71-year-old female came to the emergency room with her with history of nausea, vomiting and dizziness that started yesterday. Patient has end-stage renal disease and hemodialysis dependent. This started after she got hemodialyzed yesterday and came home. Patient is seen by the PA and I'm supervising him. Test results came back and her troponin was significantly elevated. Patient has been complaining of some chest pain after the fact for which morphine was given. The PA spoke with the on-call cnp who is covering for the patient's cnp Dr. Cook. He will come and consult on the patient. There is a head CT that is pending. Head CT is negative patient will be started on heparin. Patient has been admitted to the hospitalist. When I examined her she was groggy with morphine. Vital signs are stable. Data Data Last Documented VS Orders Orders Complete Blood Count With Diff (07/21/17 11:58) Comprehensive Metabolic Panel (07/21/17 11:58) Lipase (07/21/17 11:58) Lactic Acid (07/21/17 11:58) Prothrombin Time / Inr (Pt) (07/21/17 11:58) Act Partial Throm Time (Ptt) (07/21/17 11:58) Urinalysis - C+S If Indicated (07/21/17 11:58) Iv Access Insert/Monitor (07/21/17 11:58) Ecg Monitoring (07/21/17 11:58) Oximetry (07/21/17 11:58) Ondansetron Inj (Zofran Inj) (07/21/17 12:00) Electrocardiogram (07/21/17 11:58) Sodium Chlorid 0.9% 500 Ml Inj (Ns 500 M (07/21/17 12:00) Troponin I (07/21/17 11:58) Ckmb (Isoenzyme) Profile (07/21/17 11:58) Chest, Single Ap (07/21/17 ) Ct Brain W/O Iv Contrast(Rout) (07/21/17 ) Promethazine Inj (Phenergan Inj) (07/21/17 13:15) CKMB (07/21/17 12:57) CKMB% (07/21/17 12:57) Metoclopramide Inj (Reglan Inj) (07/21/17 14:00) Morphine Inj (Morphine Inj) (07/21/17 14:00) Aspirin (Aspirin) (07/21/17 14:00) Heparin-D5w 25,000 U/250 Ml (Heparin-D5w (07/21/17 16:00) Act Partial Throm Time (Ptt) (07/21/17 14:07) Prothrombin Time / Inr (Pt) (07/21/17 14:07) Cbc No Diff, Includes Plts (07/21/17 14:07) Act Partial Throm Time (Ptt) (07/21/17 21:07) Occult Blood (Hemoccult) Stool (07/21/17 14:07) Nitroglycerin 2% Oint (Nitroglycerin 2% (07/21/17 14:30) Admit Order (Ed Use Only) (07/21/17 14:25) Admit To Inpatient (07/21/17 ) Vital Signs (Adult) Q4H (07/21/17 14:24) Activity Oob With Assistance (07/21/17 14:24) Operating Systems Specialist / Telemetry .CONTINUOUS (07/21/17 14:24) Sodium Chloride 0.9% Flush (Ns Flush) (07/21/17 14:30) Sodium Chloride 0.9% Flush (Ns Flush) (07/21/17 21:00) Basic Metabolic Panel (Bmp) (07/22/17 06:00) Complete Blood Count With Diff (07/22/17 06:00) Creatine Kinase (Cpk) (07/21/17 19:00) Creatine Kinase (Cpk) (07/22/17 01:00) Troponin I (07/21/17 19:00) Troponin I (07/22/17 01:00) Electrocardiogram (07/21/17 19:00) Electrocardiogram (07/22/17 01:00) Pt Request For Service (07/21/17 14:24) Case Management Consult (07/21/17 14:24) Naloxone Inj (Narcan Inj) (07/21/17 14:30) Inpatient Certification (07/21/17 ) Labs Laboratory Tests Test 07/21/17 12:57 White Blood Count 12.3 TH/MM3 Red Blood Count 3.82 MIL/MM3 Hemoglobin 12.4 GM/DL Hematocrit 36.8 % Mean Corpuscular Volume 96.2 FL Mean Corpuscular Hemoglobin 32.3 PG Mean Corpuscular Hemoglobin Concent 33.6 % Red Cell Distribution Width 14.2 % Platelet Count 314 TH/MM3 Mean Platelet Volume 7.4 FL Neutrophils (%) (Auto) 85.9 % Lymphocytes (%) (Auto) 9.0 % Monocytes (%) (Auto) 4.2 % Eosinophils (%) (Auto) 0.2 % Basophils (%) (Auto) 0.7 % Neutrophils # (Auto) 10.5 TH/MM3 Lymphocytes # (Auto) 1.1 TH/MM3 Monocytes # (Auto) 0.5 TH/MM3 Eosinophils # (Auto) 0.0 TH/MM3 Basophils # (Auto) 0.1 TH/MM3 CBC Comment DIFF FINAL Differential Comment Prothrombin Time 10.3 SEC Prothromb Time International Ratio 1.0 RATIO Activated Partial Thromboplast Time 25.9 SEC Blood Urea Nitrogen 32 MG/DL Creatinine 4.16 MG/DL Random Glucose 307 MG/DL Total Protein 8.3 GM/DL Albumin 3.5 GM/DL Calcium Level 10.4 MG/DL Alkaline Phosphatase 110 U/L Aspartate Amino Transf (AST/SGOT) 39 U/L Alanine Aminotransferase (ALT/SGPT) 16 U/L Total Bilirubin 0.4 MG/DL Sodium Level 137 MEQ/L Potassium Level 4.2 MEQ/L Chloride Level 101 MEQ/L Carbon Dioxide Level 26.8 MEQ/L Anion Gap 9 MEQ/L Estimat Glomerular Filtration Rate 11 ML/MIN Lactic Acid Level 1.2 mmol/L Total Creatine Kinase 230 U/L Creatine Kinase MB 18.3 NG/ML Creatine Kinase MB % 8.0 % Troponin I 12.70 NG/ML Lipase 178 U/L [facility] Supervised Visit with DIRK: Yes Critical Care Narrative Aggregate critical care time was 30 minutes. Time to perform other separately billable procedures was not included in the critical care time. My time did not include minutes spent treating any other patients simultaneously or on activities that did not directly contribute to the patient's treatment. The services I provided to this patient were to treat and/or prevent clinically significant deterioration that could result in: Non-STEMI, heparin I provided critical care services requiring my management, as noted below: Chart data review, documentation time, medication orders and management, vital sign assessments/reviewing monitor data, ordering and reviewing lab tests, ordering and interpreting/reviewing x-rays and diagnostic studies, care of the patient and discussion of the patient with the admitting physicians. Diagnosis Primary Impression: NSTEMI (non-ST elevated myocardial infarction) Additional Impression: ESRD (end stage renal disease) on dialysis Admitting Information Admitting Physician Requests: Admit Scripts Lactobacillus Acidophilus (Lactinex) 1 Chew 1 TAB CHEW DAILY for Nutritional Supplement, #30 TAB 0 Refills Prov: Lizzie Medeiros MD 07/23/17 Cefuroxime (Ceftin) 250 Mg Tab 250 MG PO BID for infection for 7 Days, #14 TAB Prov: Lizzie Medeiros MD 07/23/17 Oxygen tank (Oxygen tank) 1 Ea Tank LITER FLORINDA.CANULA CONTINUOUS for HYPOXEMIA PREVENTION, #2 Oxygen Concentrator Portable Gaseous 2 L/min via Nasal Cannula Continuous For 99 months Prov: Lizzie Medeiros MD 07/23/17 Oxygen (O2) (Oxygen (O2)) Device LITER FLORINDA.CANULA CONTINUOUS Y for respiratory failure , #2 Oxygen Concentrator Portable Gaseous 2 L/min via Nasal Canula Continuous For 99 months Prov: Lizzie Medeiros MD 07/23/17 Hydralazine HCl (Hydralazine HCl) 50 Mg Tablet 50 MG PO Q6HR for Blood Pressure Management, #90 TAB Prov: Lizzie Medeiros MD 07/23/17 Nitroglycerin SL (Nitrostat SL) 0.4 Mg Subl 0.4 MG SL Q5M Y for CHEST PAIN, #30 TAB Prov: Lizzie Medeiros MD 07/23/17 Labetalol (Labetalol) 100 Mg Tab 100 MG PO Q8HR for Blood Pressure Management, #90 TAB Prov: Lizzie Medeiros MD 07/23/17 Gabapentin (Gabapentin) 100 Mg Cap 100 MG PO TID for Pain Management, #60 CAP Prov: Lizzie Medeiros MD 07/23/17 Tejas Hinojosa MD Jul 21, 2017 15:42
[2017-07-21] MEDS ORDERED: HEPARIN-D5W 25,000 U/250 ML 250 ML IV PRN (16:00)
[2017-07-21] MEDS ORDERED: PROMETHAZINE INJ 25 MG/ML VIAL IM PRN (16:00)
--- NOTE | 2017-07-21 16:35 | RADRPT ---
EXAM DATE/TIME: 07/21/2017 14:53 [facility] COMPARISON: No previous studies available for comparison. INDICATIONS : Dizziness,nausea vomiting RADIATION DOSE: 36.52 CTDIvol (mGy) MEDICAL HISTORY : Cerebrovascular disease. Cardiovascular disease Hypertension.diabetes SURGICAL HISTORY : None. ENCOUNTER: Initial ACUITY: 1 day PAIN SCALE: 0/10 LOCATION: cranial TECHNIQUE: Multiple contiguous axial images were obtained of the head. Using automated exposure control and adj ustment of the mA and/or kV according to patient size, radiation dose was kept as low as reasonably a chievable to obtain optimal diagnostic quality images. DICOM format image data is available electro nically for review and comparison. FINDINGS: CEREBRUM: The ventricles are normal for age. No evidence of midline shift, mass lesion, hemorrhage or acute in farction. No extra-axial fluid collections are seen. POSTERIOR FOSSA: The cerebellum and brainstem are intact. The 4th ventricle is midline. The cerebellopontine angle i s unremarkable. EXTRACRANIAL: The visualized portion of the orbits is intact. SKULL: The calvaria is intact. No evidence of skull fracture. CONCLUSION: Normal examination. Rosendo Ruth MD on July 21, 2017 at 15:44 Board Certified Radiologist. This report was verified electronically.
[2017-07-21] MEDS ORDERED: PILL SPLITTER OTHER PRN (16:45)
[2017-07-21] MEDS ORDERED: LORazepam 2 MG/ML VIAL IV PUSH ONE (17:15)
[2017-07-21] MEDS ORDERED: PROMETHAZINE HCL 25 MG SUPP RECTAL PRN (17:15)
[2017-07-21] MEDS: ONDANSETRON HCL 4 MG/2 ML VIAL IV PUSH PRN (17:33)
--- NOTE | 2017-07-21 17:58 | MB ---
cc: BEATRICE JIANG MD DATE OF CONSULTATION 07/21/17 DATE OF 1945 I WAS asked by Dr. Lupe Blake to evaluate patient with abnormal troponin levels and history of coronary artery disease. HISTORY OF PRESENT ILLNESS Mary Jarrell is a pleasant 71-year-old woman with past medical history significant for coronary disease, status post coronary artery bypass graft times three, hypertension, hyperlipidemia, end-stage renal disease on hemodialysis. She is interviewed and examined in the emergency room with her at bedside. She reports having episodes of nausea and vomiting for the past two days. She is not able to hold anything down. She reports no associated chest pain, sustained palpitations or shortness of breath with her symptoms. The emergency room evaluation significant for elevated troponins. She reports having cardiac catheterization in November by Dr. De Leon that showed no significant coronary disease. No intervention was undertaken. Her coronary angiography was performed prior to her toe amputations. Emergency room evaluation significant for severe hypertension, 222/86 mmHg and 192/82 mmHg. Troponin 12.7, CK-MB 8.0, potassium 4.2, BUN 32, creatinine is 4.16. CARDIOLOGY STUDIES ECG showed sinus rhythm with first-degree heart block, left anterior mimi-block, old anteroseptal infarction. QS complexes V1-V3. T-wave inversion 1 and AVL. IMAGING STUDIES Chest x-ray shows cardiomegaly, status post sternotomy. No CHF. MEDICATIONS Prior to admission reviewed and noted to in JUL. 1. Sensipar 30 mg daily, 2. Humalog insulin, 3. Synthroid 125 mcg daily 4. Gabapentin 300 mg b.i.d., 5. Plavix 75 mg daily, 6. Aspirin 81 mg daily, 7. Coreg 12.5 mg b.i.d. ALLERGIES AMLODIPINE BUMETANIDE PAST MEDICAL HISTORY As above. 1. Diabetes mellitus, 2. Hypothyroidism, 3. Hyperlipidemia, 4. Hypertension, 5. End-stage renal disease on hemodialysis, 6. Peripheral arterial disease, 7. History of TIA. PAST SURGICAL HISTORY 1. Status post AV fistula right upper extremity 2. Status post coronary artery bypass graft times three 3. Appendectomy 4. Cholecystectomy SOCIAL HISTORY She lives with her . She does not smoke or drink alcohol. No illicit drug use. FAMILY HISTORY Mother had history of hypertension. Father of cancer. PHYSICAL EXAMINATION VITAL SIGNS: Blood pressure 192/72, respirations 17, pulse 68, room air sat 92%. GENERAL: Moderately obese, no acute distress, somnolent HEENT: Anicteric. Pupils equal, round, reactive to light and accommodation. No xanthelasma. NECK: Flat JVD, no carotid bruits. LUNGS: Few bibasilar crackles otherwise clear. HEART: Regular rate and rhythm. Soft 1-2/6 systolic murmur left lower sternal border. ABDOMEN: Soft and nontender. EXTREMITIES: With +1 edema. LABORATORY DATA Sodium 137, potassium 4.2, BUN 32, creatinine is 4.16. Lactic acid is 1.2, AST 39, ALT 16, troponin 12.7. WBC is 12.3, hemoglobin is 12.4, hematocrit 36.8, platelet count is 314,000. IMPRESSION 1. Nausea, vomiting, query etiology, query related to malignant hypertension. 2. Malignant hypertension. Blood pressure 222/86 on presentation, 3. Troponins positive for acute coronary syndrome. 4. History of end-stage renal disease on hemodialysis. 5. Known coronary artery disease, status post coronary artery bypass graft. PLAN 1. Discontinue Carvedilol. 2. Start labetalol 100 mg t.i.d. Can give labetalol 10 mg IV x1 now. 3. Start hydralazine 50 mg q. 6 hours 4. Continue nitro paste one inch q.6 h 5. Aggressive hemodialysis per renal service. 6. Obtain echocardiogram. 7. We will review previous coronary angiography at [facility] that was done this past summer. Thank you for allowing me to contribute to the patient's care. Thank you for this consultation. MD YONATHAN Westbrook/ /3:48 PM /5:38 PM
[2017-07-21] MEDS: hydrALAZINE HCL 50 MG TAB PO SCH ×2 (18:00→21:00)
[2017-07-21] MEDS: SODIUM CHLORIDE 0.9% FLUSH 10 ML FLUSH IV FLUSH SCH (20:57)
[2017-07-21] MEDS: GABAPENTIN 300 MG CAP PO SCH (21:00)
[2017-07-21] MEDS: LABETALOL HCL 100 MG TAB PO SCH (21:00)
[2017-07-21] MEDS ORDERED: CARVEDILOL 12.5 MG TAB PO SCH (21:00)
[2017-07-21 21:46] LABS: TROPONIN I 8.9 NG/ML (0.02-0.05)
[2017-07-22] VITALS (24 sets, daily range): BP systolic 109–174; BP diastolic 53–74; PULSE 60–77; RESP 16–20; TEMP 97.8–98.8; O2SAT 91–100
[2017-07-22] MEDS: ONDANSETRON HCL 4 MG/2 ML VIAL IV PUSH PRN ×3 (00:22→17:12)
[2017-07-22 03:55] LABS: TROPONIN I 8.37 NG/ML (0.02-0.05)
[2017-07-22 05:57] LABS: AUTOMATED NEUTROPHIL # 15.2 TH/MM3 (1.8-7.7); BASOPHIL # 0.1 TH/MM3 (0-0.2); BASOPHIL % 0.5 % (0.0-2.0); EOSINOPHIL % 0.1 % (0.0-4.0); HEMATOCRIT 33.9 % (35.0-46.0); HEMOGLOBIN 11.4 GM/DL (11.6-15.3); LYMPH % 6.6 % (9.0-44.0); LYMPHOCYTE # 1.2 TH/MM3 (1.0-4.8); MEAN CELL VOLUME 96.8 FL (80.0-100.0); MEAN CORPUSCULAR HEMOGLOBIN 32.6 PG (27.0-34.0); MEAN CORPUSCULAR HGB CONC 33.7 % (32.0-36.0); MEAN PLATELET VOLUME 7.1 FL (7.0-11.0); MONOCYTE # 1.1 TH/MM3 (0-0.9); NEUT % 86.8 % (16.0-70.0); PLATELET COUNT 294 TH/MM3 (150-450); RED BLOOD COUNT 3.51 MIL/MM3 (4.00-5.30); RED CELL DISTRIBUTION WIDTH 14.3 % (11.6-17.2); WHITE BLOOD COUNT 17.5 TH/MM3 (4.0-11.0)
[2017-07-22] MEDS: LEVOTHYROXINE SODIUM 125 MCG TAB PO SCH (06:00)
[2017-07-22 06:20] LABS: BICARBONATE 25.2 MEQ/L (21.0-32.0); CALCIUM 9.9 MG/DL (8.5-10.1); CREATININE 4.76 MG/DL (0.50-1.00)
--- NOTE | 2017-07-22 07:45 | HHI.PR ---
Subjective Remarks Chest pain overnight. Palpitations, nausea, lightheadedness. Plan for 2D echo today. Patient feels very tired. [place] nauseated in the morning however she is not nauseated at this time and no plan for cardiac cath per cardiology. Will advance diet. No diarrhea or constipation. Objective Vitals Vital Signs Date Time Temp Pulse Resp B/P (MAP) Pulse Ox O2 Delivery O2 Flow Rate FiO2 07/22/17 04:48 98.1 64 16 120/60 (80) 92 07/22/17 02:00 69 07/22/17 01:00 62 07/22/17 00:05 97.8 71 16 109/53 (71) 91 07/22/17 00:00 62 07/21/17 23:00 61 07/21/17 22:00 66 07/21/17 21:00 64 07/21/17 20:00 97.8 71 16 144/63 (90) 99 07/21/17 20:00 64 07/21/17 19:00 75 07/21/17 15:10 68 17 192/82 (118) 92 Room Air 07/21/17 13:26 19 07/21/17 12:53 64 20 193/87 (122) 96 Room Air 07/21/17 11:37 98.1 69 16 222/86 (131) 98 Room Air I/O 07/21/17 07/21/17 07/21/17 07/22/17 07/22/17 07/22/17 07:00 15:00 23:00 07:00 15:00 23:00 Intake Total 0 ml Balance 0 ml Intake Oral 0 ml # Voids 1 # Bowel Movements 0 Result Diagram: 07/22/17 0538 07/22/17 0538 Imaging Last Impressions Head CT 07/21/17 0000 Signed Impressions: Service Date/Time: June 14:53 - CONCLUSION: Normal examination. Rosendo Ruth MD Chest X-Ray 07/21/17 0000 Signed Impressions: Service Date/Time: June 12:13 - CONCLUSION: 1. Chronic appearing interstitial changes with a small area of atelectasis on the left. No acute abnormality. Satish Sanchez MD Objective Remarks GENERAL: This is a well-nourished, well-developed patient, in no apparent distress. but is drowsy CARDIOVASCULAR: Regular rate and rhythm without murmurs, gallops, or rubs. RESPIRATORY: Clear to auscultation. Breath sounds equal bilaterally. No wheezes , rales, or rhonchi. GASTROINTESTINAL: Abdomen soft, non-tender, nondistended. No guarding. MUSCULOSKELETAL: Extremities without clubbing, cyanosis, or edema. . No calf tenderness. NEUROLOGICAL: Awake and alert. Motor and sensory grossly within normal limits. Normal speech. A/P Assessment and Plan Persistent nausea/vomiting. Possible angina equivalent. 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 Control BP Nitropaste. Serial cardiac enzymes and EKGs. EKG reviewed. Sinus rhythm, left axis. Q waves in anterolateral leads. Age indeterminate. Head CT no acute findings Cardiology was consulted and ff Records from [facility]. Cardiac cath July 2016 : total occlusion RCA, LAD AND CFX, patent CARTER-LAD, SVG-OM and SVG-RCA. DC heparin. No plan for cardiac cath per cardiology. 2D echo pending Nephrology consult for dialysis. Continue HD Monitor fingersticks. DVT prophylaxis. scd/teds Discussed Condition With patient, nurse Lizzie Medeiros MD Jul 22, 2017 07:45
--- NOTE | 2017-07-22 08:39 | PD.CARD.PN ---
Subjective Subjective Remarks FEELS BETTER, NAUSEA LARGELY RESOLVED, FEELS HUNGRY. NO COMPLAINTS OF CHEST PAIN OR SOB HTN BETTER CONTROLLED CARDIAC CATH 07/2016 SHOWED TOTAL OCCLUSIONS OF RCA, LAD AND CFX PATENT CARTER-LAD, SVG-OM AND SVG-RCA. Objective Medications Current Medications Medications (Trade) Dose Ordered Sig/Julius Route Start Time Stop Time Status Last Admin Heparin Sodium/ Dextrose 250 ml @ 10 mls/hr TITRATE PRN IV 07/21/17 16:00 07/21/17 17:38 (NS Flush) 2 ml UNSCH PRN IV FLUSH 07/21/17 14:30 (NS Flush) 2 ml BID IV FLUSH 07/21/17 21:00 (Narcan Inj) 0.4 mg UNSCH PRN IV PUSH 07/21/17 14:30 (Nitrostat Sl) 0.4 mg Q5M PRN SL 07/21/17 15:15 (Sensipar) 30 mg DAILY PO 07/22/17 09:00 (Plavix) 75 mg DAILY PO 07/22/17 09:00 (Neurontin) 300 mg BID PO 07/21/17 21:00 (Synthroid) 125 mcg DAILY@0600 PO 07/22/17 06:00 (Zofran Inj) 4 mg Q6HR PRN IV PUSH 07/21/17 16:00 07/22/17 00:22 (Phenergan Inj) 12.5 mg Q4H PRN IM 07/21/17 16:00 07/22/17 03:54 (Trandate) 50 mg Q12HR PO 07/21/17 21:00 (Apresoline) 50 mg Q6HR PO 07/21/17 18:00 (Pill Splitter) 1 ea UNSCH PRN OTHER 07/21/17 16:45 (Phenergan Supp) 25 mg Q4H PRN RECTAL 07/21/17 17:15 Vital Signs / I&O Vital Signs Date Time Temp Pulse Resp B/P (MAP) Pulse Ox O2 Delivery O2 Flow Rate FiO2 07/22/17 06:00 68 07/22/17 05:00 64 07/22/17 04:48 98.1 64 16 120/60 (80) 92 07/22/17 04:00 66 07/22/17 03:00 66 07/22/17 02:00 69 07/22/17 01:00 62 07/22/17 00:05 97.8 71 16 109/53 (71) 91 07/22/17 00:00 62 07/21/17 23:00 61 07/21/17 22:00 66 07/21/17 21:00 64 07/21/17 20:00 97.8 71 16 144/63 (90) 99 07/21/17 20:00 64 07/21/17 19:00 75 07/21/17 15:10 68 17 192/82 (118) 92 Room Air 07/21/17 13:26 19 07/21/17 12:53 64 20 193/87 (122) 96 Room Air 07/21/17 11:37 98.1 69 16 222/86 (131) 98 Room Air I/O 07/21/17 07/21/17 07/21/17 07/22/17 07/22/17 07/22/17 07:00 15:00 23:00 07:00 15:00 23:00 Intake Total 0 ml Balance 0 ml Intake Oral 0 ml # Voids 1 # Bowel Movements 0 Physical Exam NAD, COMFORTABLE ANTICTERIC FLAT JVD LUNGS CLEAR IRREGULAR RATE AND RHYTHM ABD SOFT EXTREMITIES WITHOUT EDEMA Laboratory Laboratory Tests Test 07/21/17 12:57 07/21/17 14:45 07/21/17 20:33 07/21/17 23:07 White Blood Count 12.3 TH/MM3 13.4 TH/MM3 Red Blood Count 3.82 MIL/MM3 3.54 MIL/MM3 Hemoglobin 12.4 GM/DL 11.9 GM/DL Hematocrit 36.8 % 33.9 % Mean Corpuscular Volume 96.2 FL 95.8 FL Mean Corpuscular Hemoglobin 32.3 PG 33.7 PG Mean Corpuscular Hemoglobin Concent 33.6 % 35.2 % Red Cell Distribution Width 14.2 % 14.2 % Platelet Count 314 TH/MM3 269 TH/MM3 Mean Platelet Volume 7.4 FL 7.1 FL Neutrophils (%) (Auto) 85.9 % Lymphocytes (%) (Auto) 9.0 % Monocytes (%) (Auto) 4.2 % Eosinophils (%) (Auto) 0.2 % Basophils (%) (Auto) 0.7 % Neutrophils # (Auto) 10.5 TH/MM3 Lymphocytes # (Auto) 1.1 TH/MM3 Monocytes # (Auto) 0.5 TH/MM3 Eosinophils # (Auto) 0.0 TH/MM3 Basophils # (Auto) 0.1 TH/MM3 CBC Comment DIFF FINAL Differential Comment Prothrombin Time 10.3 SEC 10.3 SEC Prothromb Time International Ratio 1.0 RATIO 1.0 RATIO Activated Partial Thromboplast Time 25.9 SEC 28.3 SEC 37.3 SEC Blood Urea Nitrogen 32 MG/DL Creatinine 4.16 MG/DL Random Glucose 307 MG/DL Total Protein 8.3 GM/DL Albumin 3.5 GM/DL Calcium Level 10.4 MG/DL Alkaline Phosphatase 110 U/L Aspartate Amino Transf (AST/SGOT) 39 U/L Alanine Aminotransferase (ALT/SGPT) 16 U/L Total Bilirubin 0.4 MG/DL Sodium Level 137 MEQ/L Potassium Level 4.2 MEQ/L Chloride Level 101 MEQ/L Carbon Dioxide Level 26.8 MEQ/L Anion Gap 9 MEQ/L Estimat Glomerular Filtration Rate 11 ML/MIN Lactic Acid Level 1.2 mmol/L Total Creatine Kinase 230 U/L 184 U/L Creatine Kinase MB 18.3 NG/ML Creatine Kinase MB % 8.0 % Troponin I 12.70 NG/ML 8.90 NG/ML Lipase 178 U/L Test 07/22/17 02:36 07/22/17 05:38 Total Creatine Kinase 142 U/L Troponin I 8.37 NG/ML White Blood Count 17.5 TH/MM3 Red Blood Count 3.51 MIL/MM3 Hemoglobin 11.4 GM/DL Hematocrit 33.9 % Mean Corpuscular Volume 96.8 FL Mean Corpuscular Hemoglobin 32.6 PG Mean Corpuscular Hemoglobin Concent 33.7 % Red Cell Distribution Width 14.3 % Platelet Count 294 TH/MM3 Mean Platelet Volume 7.1 FL Neutrophils (%) (Auto) 86.8 % Lymphocytes (%) (Auto) 6.6 % Monocytes (%) (Auto) 6.0 % Eosinophils (%) (Auto) 0.1 % Basophils (%) (Auto) 0.5 % Neutrophils # (Auto) 15.2 TH/MM3 Lymphocytes # (Auto) 1.2 TH/MM3 Monocytes # (Auto) 1.1 TH/MM3 Eosinophils # (Auto) 0.0 TH/MM3 Basophils # (Auto) 0.1 TH/MM3 CBC Comment DIFF FINAL Differential Comment Activated Partial Thromboplast Time 45.1 SEC Blood Urea Nitrogen 42 MG/DL Creatinine 4.76 MG/DL Random Glucose 247 MG/DL Calcium Level 9.9 MG/DL Sodium Level 139 MEQ/L Potassium Level 4.6 MEQ/L Chloride Level 103 MEQ/L Carbon Dioxide Level 25.2 MEQ/L Anion Gap 11 MEQ/L Estimat Glomerular Filtration Rate 9 ML/MIN Assessment and Plan Assessment and Plan SEVERE/MALIGNANT HTN, IMPROVED, BETTER CONTROLLED ACS, PROBABLE TYPE 2 DUE TO MALIGNANT HTN HEMODYNAMICALLY STABLE, NO ANGINA, CHF OR VENTRICULAR ARRHYTHMIAS ESRD ON HD NAUSEA AND VOMITING, ? ETIO. NO ABD PAIN OR DIARRHEA, IS ASYMPTOMATIC. PLAN: OK TO DC IV HEPARIN MEDICATIONS REVIEWED, CONTINUE SAME CARDIAC CATH FOR ANGINA, CHF OR MALIGNANT ARRHYTHMIAS ECHO TODAY HD PER RENAL. PPI LFTS CONSIDER ABD US. DR JACKSON IS COVERING THIS WEEK END. Nitin Khanna MD Jul 22, 2017 08:39
[2017-07-22] MEDS: SODIUM CHLORIDE 0.9% FLUSH 10 ML FLUSH IV FLUSH SCH ×2 (09:00→21:54)
[2017-07-22] MEDS: LABETALOL HCL 100 MG TAB PO SCH ×2 (09:26→21:54)
[2017-07-22] MEDS: CLOPIDOGREL 75 MG TAB PO SCH (09:26)
[2017-07-22] MEDS: GABAPENTIN 300 MG CAP PO SCH (09:26)
[2017-07-22] MEDS: CINACALCET HYDROCHLORIDE 30 MG TAB PO SCH (09:26)
[2017-07-22] MEDS ORDERED: diphenhydrAMINE HCL 25 MG CAP PO PRN (09:30)
[2017-07-22] MEDS ORDERED: SODIUM CHLOR 0.9% 1000 ML OTHER PRN ×2 (09:30)
[2017-07-22] MEDS ORDERED: GELATIN 12 MM/7 MM FOAM TOPICAL PRN (09:30)
[2017-07-22] MEDS ORDERED: GENTAMICIN SULFATE 20 MG/2 ML VIAL OTHER PRN (09:30)
[2017-07-22] MEDS ORDERED: ONDANSETRON HCL 4 MG/2 ML VIAL IV PUSH PRN (09:30)
[2017-07-22] MEDS ORDERED: MANNITOL 12.5 GM/50 ML VIAL IV PUSH PRN (09:30)
[2017-07-22] MEDS ORDERED: ACETAMINOPHEN 325 MG TAB PO PRN (09:30)
[2017-07-22] MEDS ORDERED: NITROGLYCERIN 0.4 MG SL 25 TABS/BTL SL PRN (09:30)
[2017-07-22] MEDS ORDERED: NS 250 ML IV PRN (09:30)
[2017-07-22] MEDS ORDERED: ALBUMIN 25% 25 GM/100 ML BAG IV PRN (09:30)
[2017-07-22] MEDS ORDERED: cloNIDine HCL 0.1 MG TAB PO PRN (09:30)
[2017-07-22] MEDS ORDERED: HEPARIN SODIUM - IV 10,000 UNITS/10 ML VIAL IV FLUSH PRN ×2 (09:30)
[2017-07-22] MEDS ORDERED: SODIUM CHLORIDE 0.9% FLUSH 10 ML FLUSH IV FLUSH PRN (09:30)
[2017-07-22] MEDS ORDERED: HEPARIN SODIUM - IV 10,000 UNITS/10 ML VIAL OTHER PRN (09:30)
[2017-07-22] MEDS: hydrALAZINE HCL 50 MG TAB PO SCH ×2 (12:00→17:12)
--- NOTE | 2017-07-22 14:13 | EKG ---
Date Performed: 07/21/2017 Time Performed: 12:57:57 PTAGE: 71 years EKG: Sinus rhythm with a wandering atrial pacemaker MARKED LEFT AXIS DEVIATION ANTEROSEPTAL MYOCARDIAL INFARCTION MODE RATE T-WAVE ABNORMALITY, CONSIDER LATERAL ISCHEMIA ABNORMAL ECG PREVIOUS TRACING : 08/24/2016 12.00 Since the prior tracing, the rhythm disturbance is new, and there has been a slight increase in the lateral R-wave voltage on the precordial leads. But otherwis e, there is no overt significant serial change. DOCTOR: Buffy Hernandez Interpretating Date/Time 07/22/2017 14:12:23
--- NOTE | 2017-07-22 14:45 | EKG ---
Date Performed: 07/22/2017 Time Performed: 01:57:10 PTAGE: 71 years EKG: Sinus rhythm with PAC(s) with borderline 1st degree A-V block Left axis deviation Cannot rule out anteroseptal in farct - age undetermined Left ventricular hypertrophy Inferior/lateral ST-T changes may be due to hyp ertrophy and/or ischemia Abnormal ECG PREVIOUS TRACING 07/21/2017 @ 07.57 Since the prior tracing, there has been no significan t change DOCTOR: Buffy Hernandez Interpretating Date/Time 07/22/2017 14:39:22
--- NOTE | 2017-07-22 16:36 | PD.CONS ---
HPI Consult Requested By Reason for Consult End-stage renal disease Inpatient hemodialysis. Primary Care Physician Anila (Garret) MD [place] History of Present Illness This patient is a 71-year-old female with a history of end-stage renal disease, coronary artery disease, hypertension presenting with a history of nausea and vomiting for the last few days noted to have elevated troponin levels and uncontrolled hypertension on presentation. She has been evaluated by cardiology. Patient had a cardiac catheterization last year which showed extensive coronary disease but patent grafts. Blood pressure regimen adjusted by cardiology and the patient currently on labetalol and hydralazine. Review of Systems Constitutional: DENIES: Diaphoretic episodes, Fatigue, Fever, Weight gain, Weight loss, Chills, Dizziness, Change in appetite, Night Sweats Respiratory: DENIES: Apneas, Cough, Snoring, Wheezing, Hemoptysis, Sputum production, Shortness of breath Gastrointestinal: COMPLAINS OF: Nausea, Vomiting, DENIES: Abdominal pain, Black stools, Bloody stools, Constipation, Diarrhea, Difficulty Swallowing, Anorexia Musculoskeletal: DENIES: Joint pain, Muscle aches, Stiffness, Joint Swelling, Back pain, Neck pain Past Family Social History Allergies: Coded Allergies: amlodipine (Unverified Allergy, Severe, 01/11/17) bumetanide (Unverified Allergy, Severe, 01/11/17) PT STATES NOT ALLERGIC Past Medical History End-stage renal disease Diabetes mellitus Hypertension Coronary artery disease Peripheral arterial disease. Previous [place] this. CVA 2. Coronary artery bypass grafting 3.. Patent grafts noted on cardiac catheterization last year. Right upper extremity AV fistula. Previous left second toe amputation. Past Surgical History As above. Reported Medications Reported Meds & Active Scripts Active Reported Sensipar (Cinacalcet) 30 Mg Tab 30 Mg PO DAILY Humalog Inj (Insulin Human Lispro) 1,000 Unit/10 Ml Vial SQ ACHS SLIDING SCALE DIRECTED Synthroid (Levothyroxine Sodium) 125 Mcg Tab 125 Mcg PO DAILY Gabapentin 300 Mg Cap 300 Mg PO BID Plavix (Clopidogrel Bisulfate) 75 Mg Tab 75 Mg PO DAILY Coreg (Carvedilol) 12.5 Mg Tab 12.5 Mg PO BID Active Ordered Medications Current Medications Ondansetron HCl (Zofran Inj) 4 mg ONCE ONCE IVP Last administered on at 12:47; Start 07/21/17 at 12:00; Stop 07/21/17 at 12:03; Status DC Sodium Chloride 500 ml @ 500 mls/hr BOLUS ONCE IV Last administered on at 12:47; Start 07/21/17 at 12:00; Stop 07/21/17 at 12:59; Status DC Promethazine HCl (Phenergan Inj) 25 mg ONCE ONCE IM Last administered on at 13:19; Start 07/21/17 at 13:15; Stop 07/21/17 at 13:16; Status DC Metoclopramide HCl (Reglan Inj) 5 mg ONCE ONCE IV PUSH Last administered on at 14:05; Start 07/21/17 at 14:00; Stop 07/21/17 at 14:02; Status DC Morphine Sulfate (Morphine Inj) 4 mg ONCE ONCE IV PUSH Last administered on at 14:05; Start 07/21/17 at 14:00; Stop 07/21/17 at 14:02; Status DC Aspirin (Aspirin) 325 mg ONCE ONCE PO ; Start 07/21/17 at 14:00; Stop 07/21/17 at 14:02; Status DC Heparin Sodium/ Dextrose 250 ml @ 10 mls/hr TITRATE PRN IV Coagulation Management Last administered on 07/21/17at 17:38; Start 07/21/17 at 16:00 Nitroglycerin (Nitroglycerin 2% Oint) 1 inch ONCE ONCE TOPICAL Last administered on 07/21/17at 15:05; Start 07/21/17 at 14:30; Stop 07/21/17 at 14:31 ; Status DC Sodium Chloride (NS Flush) 2 ml UNSCH PRN IV FLUSH FLUSH AFTER USING IV ACCESS ; Start 07/21/17 at 14:30 Sodium Chloride (NS Flush) 2 ml BID IV FLUSH Last administered on 07/22/17at 09: 00; Start 07/21/17 at 21:00 Naloxone HCl (Narcan Inj) 0.4 mg UNSCH PRN IV PUSH SEE LABEL COMMENTS; Start at 14:30 Nitroglycerin (Nitrostat Sl) 0.4 mg Q5M PRN SL CHEST PAIN; Start 07/21/17 at 15 :15 Carvedilol (Coreg) 12.5 mg BID PO ; Start 07/21/17 at 21:00; Stop 07/21/17 at 21 :00; Status DC Cinacalcet (Sensipar) 30 mg DAILY PO Last administered on 07/22/17 09:26; Start 07/22/17 at 09:00 Clopidogrel Bisulfate (Plavix) 75 mg DAILY PO Last administered on 07/22/17 09 :26; Start 07/22/17 at 09:00 Gabapentin (Neurontin) 300 mg BID PO Last administered on 07/22/17at 09:26; Start 07/21/17 at 21:00 Levothyroxine Sodium (Synthroid) 125 mcg DAILY@0600 PO ; Start 07/22/17 at 06:00 Ondansetron HCl (Zofran Inj) 4 mg Q6HR PRN IV PUSH nausea Last administered on 07/22/17 09:26; Start 07/21/17 at 16:00 Promethazine HCl (Phenergan Inj) 12.5 mg Q4H PRN IM severe nausea Last administered on 07/22/17at 03:54; Start 07/21/17 at 16:00 Labetalol HCl (Trandate) 50 mg Q12HR PO Last administered on 07/22/17 09:26; Start 07/21/17 at 21:00 Hydralazine HCl (Apresoline) 50 mg Q6HR PO ; Start 07/21/17 at 18:00 Miscellaneous (Pill Splitter) 1 ea UNSCH PRN OTHER SEE LABEL COMMENTS; Start at 16:45 Lorazepam (Ativan Inj) 1 mg ONCE ONCE IV PUSH Last administered on 07/21/17at 17:33; Start 07/21/17 at 17:15; Stop 07/21/17 at 17:31; Status DC Promethazine HCl (Phenergan Supp) 25 mg Q4H PRN RECTAL persistent nausea; Start 07/21/17 at 17:15 Sodium Chloride 1,000 ml @ 0 mls/hr TITRATE PRN OTHER WITH DIALYSIS; Start at 09:30 Heparin Sodium (Porcine) (Heparin Inj) 8,000 units UNSCH PRN IV FLUSH WITH DIALYSIS; Start 07/22/17 at 09:30 Heparin Sodium (Porcine) (Heparin Inj) 1,000 units Q1H PRN IV FLUSH WITH DIALYSIS; Start 07/22/17 at 09:30 Sodium Chloride 1,000 ml @ 200 mls/hr Q5H PRN OTHER WITH DIALYSIS; Start at 09:30 Sodium Chloride 200 ml @ 0 mls/hr UNSCH PRN IV WITH DIALYSIS; Start 07/22/17 at 09:30 Mannitol (Mannitol Inj) 12.5 gm UNSCH PRN IV PUSH WITH DIALYSIS; Start at 09:30 Albumin Human 100 ml @ 60 mls/hr UNSCH PRN IV WITH DIALYSIS; Start 07/22/17 at 09:30 Sodium Chloride (NS Flush) 5 ml UNSCH PRN IV FLUSH WITH DIALYSIS; Start at 09:30 Heparin Sodium (Porcine) (Heparin Inj) Dwell Heparin to f... UNSCH PRN OTHER WITH DIALYSIS; Start 07/22/17 at 09:30 Gentamicin Sulfate (Gentamicin Inj) 10 mg UNSCH PRN OTHER WITH DIALYSIS; Start 07/22/17 at 09:30 Gelatin (Gelfoam 12 Mm/7 Mm Top) 1 foam UNSCH PRN TOPICAL WITH DIALYSIS; Start 07/22/17 at 09:30 Ondansetron HCl (Zofran Inj) 4 mg UNSCH PRN IV PUSH NAUSEA OR VOMITING; Start 07/22/17 at 09:30 Acetaminophen (Tylenol) 650 mg UNSCH PRN PO WITH DIALYSIS; Start 07/22/17 at 09 :30 Diphenhydramine HCl (Benadryl) 25 mg UNSCH PRN PO WITH DIALYSIS; Start at 09:30 Nitroglycerin (Nitrostat Sl) 0.4 mg UNSCH PRN SL WITH DIALYSIS; Start 07/22/17 at 09:30 Clonidine (Catapres) 0.1 mg UNSCH PRN PO WITH DIALYSIS; Start 07/22/17 at 09:30 Family History Noncontributory to current complaint. Social History No history of current illicit drug use. Physical Exam Vital Signs Vital Signs Date Time Temp Pulse Resp B/P (MAP) Pulse Ox O2 Delivery O2 Flow Rate FiO2 07/22/17 16:00 70 07/22/17 15:41 69 07/22/17 15:37 97.8 66 20 119/54 (75) 100 07/22/17 10:04 98 Nasal Cannula 3.00 07/22/17 10:00 64 07/22/17 09:00 60 07/22/17 09:00 60 07/22/17 08:00 98.8 61 20 174/74 (107) 97 07/22/17 08:00 68 07/22/17 06:00 68 07/22/17 05:00 64 07/22/17 04:48 98.1 64 16 120/60 (80) 92 07/22/17 04:00 66 07/22/17 03:00 66 07/22/17 02:00 69 07/22/17 01:00 62 07/22/17 00:05 97.8 71 16 109/53 (71) 91 07/22/17 00:00 62 07/21/17 23:00 61 07/21/17 22:00 66 07/21/17 21:00 64 07/21/17 20:00 97.8 71 16 144/63 (90) 99 07/21/17 20:00 64 07/21/17 19:00 75 Physical Exam GENERAL: Patient lying in bed not in respiratory distress still having some nausea however but no active vomiting. SKIN: Warm and dry. HEAD: Normocephalic. EYES: No scleral icterus. No injection or drainage. NECK: Supple, trachea midline. No JVD.. CARDIOVASCULAR: Regular rate and rhythm without murmurs, gallops, or rubs. AV fistula with good bruit and thrill. RESPIRATORY: Breath sounds equal bilaterally. No accessory muscle use. GASTROINTESTINAL: Abdomen soft, non-tender, nondistended. MUSCULOSKELETAL: No cyanosis, or edema. BACK: Nontender without obvious deformity. No CVA tenderness. Laboratory Laboratory Tests Test 07/21/17 20:33 07/21/17 23:07 07/22/17 02:36 07/22/17 05:38 Total Creatine Kinase 184 142 Troponin I 8.90 8.37 Activated Partial Thromboplast Time 37.3 45.1 White Blood Count 17.5 Red Blood Count 3.51 Hemoglobin 11.4 Hematocrit 33.9 Mean Corpuscular Volume 96.8 Mean Corpuscular Hemoglobin 32.6 Mean Corpuscular Hemoglobin Concent 33.7 Red Cell Distribution Width 14.3 Platelet Count 294 Mean Platelet Volume 7.1 Neutrophils (%) (Auto) 86.8 Lymphocytes (%) (Auto) 6.6 Monocytes (%) (Auto) 6.0 Eosinophils (%) (Auto) 0.1 Basophils (%) (Auto) 0.5 Neutrophils # (Auto) 15.2 Lymphocytes # (Auto) 1.2 Monocytes # (Auto) 1.1 Eosinophils # (Auto) 0.0 Basophils # (Auto) 0.1 CBC Comment DIFF FINAL Differential Comment Blood Urea Nitrogen 42 Creatinine 4.76 Random Glucose 247 Calcium Level 9.9 Sodium Level 139 Potassium Level 4.6 Chloride Level 103 Carbon Dioxide Level 25.2 Anion Gap 11 Estimat Glomerular Filtration Rate 9 Result Diagram: 07/22/1753707/22/17537 Assessment and Plan Problem List: (1) ESRD (end stage renal disease) on dialysis ICD Codes: N18.6 - End stage renal disease; Z99.2 - Dependence on renal dialysis Status: Chronic Plan: Patient completed her dialysis today as ordered. Will continue Tuesday and Tuesday schedule per outpatient schedule. Next dialysis tentatively Tuesday. Medications should be adjusted for end-stage renal disease when indicated. Will reduce Neurontin dosage in view of this. Avoid gadolinium. (2) Coronary artery disease ICD Codes: I25.10 - Atherosclerotic heart disease of [place] coronary artery without angina pectoris Plan: Management per cardiology. (3) Hypertension ICD Codes: I10 - Essential (primary) hypertension Status: Acute Plan: Continue to follow blood pressure on current regimen of hydralazine and labetalol. Blood pressure has improved since admission. (4) Diabetes mellitus type 2 with complications ICD Codes: E11.8 - Type 2 diabetes mellitus with unspecified complications Plan: Management per primary care physician. Kimberly Sampson MD Jul 22, 2017 16:36
--- NOTE | 2017-07-22 16:56 | ECHRPT ---
Indication: DYSPNEA CONCLUSIONS Moderate concentric left ventricular hypertrophy. The right ventricular size is normal. The aortic root and proximal ascending aorta are not well visualized. No mitral valve regurgitation. Aortic valve sclerosis is present. Diffuse calcification of the aortic valve. No aortic valve regurgitation. Mild aortic valve stenosis. No tricuspid regurgitation. The tricuspid valve is not well visualized. No pulmonary valve regurgitation. The inferior vena cava was not well visualized. BP: 120 / 60 HR: Rhythm: MEASUREMENTS (Male / Female) Normal Values Technical Quality:Technically difficult study 2D ECHO LV Diastolic Diameter PLAX 4.8 cm 4.2 - 5.9 / 3.9 - 5.3 cm LV Systolic Diameter PLAX 3.5 cm IVS Diastolic Thickness 1.6 cm 0.6 - 1.0 / 0.6 - 0.9 cm LVPW Diastolic Thickness 1.3 cm 0.6 - 1.0 / 0.6 - 0.9 cm LV Relative Wall Thickness 0.6 RV Internal Dim ED PLAX 3.4 cm M-MODE Aortic Root Diameter MM 3.3 cm LA Systolic Diameter MM 5.0 cm LA Ao Ratio MM 1.5 AV Cusp Separation MM 1.3 cm DOPPLER Mitral E Point Velocity 134.0 cm/s Mitral A Point Velocity 81.4 cm/s Mitral E to A Ratio 1.6 FINDINGS LEFT VENTRICLE The left ventricular systolic function is normal with an estimated ejection fraction in the range of 60-65%. Moderate concentric left ventricular hypertrophy. RIGHT VENTRICLE The right ventricular size is normal. LEFT ATRIUM The left atrial size is normal. RIGHT ATRIUM The right atrial size is normal. ATRIAL SEPTUM Normal atrial septal thickness without atrial level shunting by limited color doppler interrogation. AORTA The aortic root and proximal ascending aorta are not well visualized. MITRAL VALVE Structurally normal mitral valve. No mitral valve regurgitation. AORTIC VALVE Aortic valve sclerosis is present. Diffuse calcification of the aortic valve. No aortic valve regurgitation. Mild aortic valve stenosis. TRICUSPID VALVE No tricuspid regurgitation. The tricuspid valve is not well visualized. PULMONARY VALVE No pulmonary valve regurgitation. VESSELS The inferior vena cava was not well visualized. PERICARDIUM No pericardial effusion. Jann Gannon MD, FACC (Electronically Signed) Final Date:22 July 2017 16:54
[2017-07-22] MEDS: GABAPENTIN 100 MG CAP PO SCH (18:00)
[2017-07-23] VITALS (20 sets, daily range): BP systolic 149–168; BP diastolic 67–71; PULSE 50–64; RESP 16–18; TEMP 97.9–98.9; O2SAT 93–98
[2017-07-23] MEDS: hydrALAZINE HCL 50 MG TAB PO SCH ×3 (00:48→12:00)
[2017-07-23] MEDS: LEVOTHYROXINE SODIUM 125 MCG TAB PO SCH (06:07)
[2017-07-23 07:40] LABS: BACTERIA, URINE OCC /hpf; BILIRUBIN, URINE NEG (NEG); BLOOD, URINE SMALL (NEG); GLUCOSE,URINE 300 mg/dL (NEG); KETONE, URINE NEG (NEG); NITRITE,URINE NEG (NEG); RENAL EPITHELIAL CELLS <1 /hpf; SQUAMOUS EPITHELIAL CELL URINE 21 /hpf (0-5); URINE COLOR YELLOW (YELLW/STRAW); URINE LEUKOCYTE ESTERASE LARGE (NEG); WHITE BLOOD CELL CLUMPS MOD
[2017-07-23] MEDS ORDERED: LABE100T2 PO ×2 (08:47→09:21)
[2017-07-23] MEDS ORDERED: GABA100C4 PO (08:47)
--- NOTE | 2017-07-23 08:47 | HHI.DS ---
Discharge Summary Admission Date Jul 21, 2017 at 14:26 Discharge Date: Jul 23, 2017 Admitting Diagnosis NSTEMI, intractable nausea and vomit, angina equivalent? (1) Cough ICD Code: R05 - Cough (2) Diabetes mellitus ICD Code: E11.9 - Type 2 diabetes mellitus without complications Status: Acute (3) Coronary artery disease ICD Code: I25.10 - Atherosclerotic heart disease of [place] coronary artery without angina pectoris (4) Peripheral vascular disease ICD Code: I73.9 - Peripheral vascular disease, unspecified Status: Acute (5) Hypertension ICD Code: I10 - Essential (primary) hypertension Status: Acute (6) ESRD (end stage renal disease) on dialysis ICD Code: N18.6 - End stage renal disease; Z99.2 - Dependence on renal dialysis Status: Chronic (7) Diabetes mellitus type 2 with complications ICD Code: E11.8 - Type 2 diabetes mellitus with unspecified complications (8) Amputated toe of left foot ICD Code: Z89.422 - Acquired absence of other left toe(s) Status: Acute (9) Respiratory failure ICD Code: J96.90 - Respiratory failure, unspecified, unspecified whether with hypoxia or hypercapnia Procedures none Brief History - From Admission History from patient, ER physician communication, review of her medical records. Patient is quite lethargic at the time of my examination. She reports that she just got morphine prior to my arrival. She reports for the past 24 hours, she has been extremely nauseous. She vomited 7 times. Denies any blood in her vomitus. Denies any associated abdominal pain. Denies any diarrhea or constipation. Denies any chest pain or tightness. Denies shortness of breath. Report she was having cold chills at the time for the past 24 hours. Denies any sinus symptoms/cough/fever/nausea/vomiting/diarrhea/urinary burning or pain on urination in the past 1-2 weeks apart from her current symptoms in the past 24 hours. Patient's at the bedside stated that patient was here in August 2016 for her left toes amputation by Dr. Brothers. Prior to that, she was at [facility] and had undergone cardiac stress test and angiogram for cardiac clearance by Dr. De Leon. She then had her amputation and had another complicated infection in her toes within a few weeks for which she was treated with antibiotics by civilian technician Dr. Diego. Her last hospitalization was about 10 months ago. In the emergency room, patient was found to have troponin of 12. As far as the family knows, she has not had any similar lab abnormalities. She is end-stage renal disease patient on hemodialysis. She last received her dialysis yesterday. To the ER PA, patient was complaining of pain prior to my arrival. However she reported pain to me and the ER physician as all over. It is somewhat difficult called to get history from the patient at this time because she is falling asleep during interview. CBC/BMP: 07/22/17 0538 07/22/17 0538 Significant Findings Laboratory Tests Test 07/21/17 12:57 07/21/17 14:45 07/21/17 20:33 07/21/17 23:07 White Blood Count 12.3 TH/MM3 (4.0-11.0) 13.4 TH/MM3 (4.0-11.0) Red Blood Count 3.82 MIL/MM3 (4.00-5.30) 3.54 MIL/MM3 (4.00-5.30) Neutrophils (%) (Auto) 85.9 % (16.0-70.0) Neutrophils # (Auto) 10.5 TH/MM3 (1.8-7.7) Blood Urea Nitrogen 32 MG/DL (7-18) Creatinine 4.16 MG/DL (0.50-1.00) Random Glucose 307 MG/DL (74-106) Total Protein 8.3 GM/DL (6.4-8.2) Calcium Level 10.4 MG/DL (8.5-10.1) Aspartate Amino Transf (AST/SGOT) 39 U/L (15-37) Estimat Glomerular Filtration Rate 11 ML/MIN (>89) Total Creatine Kinase 230 U/L (26-192) Creatine Kinase MB 18.3 NG/ML (0.5-3.6) Creatine Kinase MB % 8.0 % (0.0-4.0) Troponin I 12.70 NG/ML (0.02-0.05) 8.90 NG/ML (0.02-0.05) Hematocrit 33.9 % (35.0-46.0) Activated Partial Thromboplast Time 37.3 SEC (24.3-30.1) Test 07/22/17 02:36 07/22/17 05:38 07/23/17 07:00 Troponin I 8.37 NG/ML (0.02-0.05) White Blood Count 17.5 TH/MM3 (4.0-11.0) Red Blood Count 3.51 MIL/MM3 (4.00-5.30) Hemoglobin 11.4 GM/DL (11.6-15.3) Hematocrit 33.9 % (35.0-46.0) Neutrophils (%) (Auto) 86.8 % (16.0-70.0) Lymphocytes (%) (Auto) 6.6 % (9.0-44.0) Neutrophils # (Auto) 15.2 TH/MM3 (1.8-7.7) Monocytes # (Auto) 1.1 TH/MM3 (0-0.9) Activated Partial Thromboplast Time 45.1 SEC (24.3-30.1) Blood Urea Nitrogen 42 MG/DL (7-18) Creatinine 4.76 MG/DL (0.50-1.00) Random Glucose 247 MG/DL (74-106) Estimat Glomerular Filtration Rate 9 ML/MIN (>89) Urine Turbidity CLOUDY (CLEAR) Urine Protein 300 mg/dL (NEG-TRACE) Urine Glucose (UA) 300 mg/dL (NEG) Urine Occult Blood SMALL (NEG) Urine Leukocyte Esterase LARGE (NEG) Urine RBC 10 /hpf (0-3) Urine WBC Clumps MOD (NONE) Urine Bacteria OCC /hpf (NONE) Urine Yeast (Budding) MANY (NONE) Imaging Last Impressions Head CT 07/21/17 0000 Signed Impressions: Service Date/Time: June 14:53 - CONCLUSION: Normal examination. Rosendo Ruth MD Chest X-Ray 07/21/17 0000 Signed Impressions: Service Date/Time: June 12:13 - CONCLUSION: 1. Chronic appearing interstitial changes with a small area of atelectasis on the left. No acute abnormality. Satish Sanchez MD PE at Discharge GENERAL: This is a very pleasant 71 yo female, well-nourished, well-developed patient, in no apparent distress. CARDIOVASCULAR: Regular rate and rhythm without murmurs, gallops, or rubs. RESPIRATORY: Clear to auscultation. Breath sounds equal bilaterally. No wheezes , rales, or rhonchi. GASTROINTESTINAL: Abdomen soft, non-tender, nondistended. No guarding. MUSCULOSKELETAL: Extremities without clubbing, cyanosis, or edema. . No calf tenderness. NEUROLOGICAL: Awake and alert. Motor and sensory grossly within normal limits. Normal speech. Pt update on day of discharge Feels better no more nausea. No cp, sob, however she is on 2L NC. Doesn't have O2 at home. Patient failed walking O2 at DC needs O2 at DC and arrangements done per CM for O2 at home . Feels weak. Hospital Course Persistent nausea/vomiting. Possible angina equivalent. 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 Control BP Nitropaste. Serial cardiac enzymes and EKGs. EKG reviewed. Sinus rhythm, left axis. Q waves in anterolateral leads. Age indeterminate. Head CT no acute findings Cardiology was consulted and ff Records from [facility]. Cardiac cath July 2016 : total occlusion RCA, LAD AND CFX, patent CARTER-LAD, SVG-OM and SVG-RCA. DC heparin. No plan for cardiac cath per cardiology. To follow up asOp with cardiology . Control HTN however patient with labile BP on HD. 2D echo with normal EF, Nephrology consult for dialysis. Continue HD Monitor fingersticks. DVT prophylaxis. scd/teds Discussed Condition With patient, nurse, family at baseline Patient improved able to eat, no more nausea, no chest pain . Was DC home with home health in stable condition to follow up as OP with PCP and consultants. Patient failed walking O2 at DC needs O2 at DC and arrangements done per CM for O2 at home . Pt Condition on Discharge: Stable Discharge Disposition: Disch w/ Home Health Serv Discharge Time: > 30 minutes Discharge Instructions DIET: Follow Instructions for: Heart Healthy Diet, Dialysis Diet Activities you can perform: Regular-No Restrictions Activities to Avoid: Driving Follow up Referrals: Cardiology - 1 Week Nephrology - 3-5 Days PCP Follow-up - 1 Week Pulmonology - 1 Week New Medications: Cefuroxime (Ceftin) 250 Mg Tab 250 MG PO BID for infection for 7 Days, #14 TAB Lactobacillus Acidophilus (Lactinex) 1 Chew 1 TAB CHEW DAILY for Nutritional Supplement, #30 TAB 0 Refills Oxygen (O2) (Oxygen (O2)) Device LITER FLORINDA.CANULA CONTINUOUS PRN for respiratory failure , #2 Oxygen Concentrator Portable Gaseous 2 L/min via Nasal Canula Continuous For 99 months Oxygen tank (Oxygen tank) 1 Ea Tank LITER FLORINDA.CANULA CONTINUOUS for HYPOXEMIA PREVENTION, #2 Oxygen Concentrator Portable Gaseous 2 L/min via Nasal Cannula Continuous For 99 months Gabapentin (Gabapentin) 100 Mg Cap 100 MG PO TID for Pain Management, #60 CAP Hydralazine HCl (Hydralazine HCl) 50 Mg Tablet 50 MG PO Q6HR for Blood Pressure Management, #90 TAB Labetalol (Labetalol) 100 Mg Tab 100 MG PO Q8HR for Blood Pressure Management, #90 TAB Nitroglycerin SL (Nitrostat SL) 0.4 Mg Subl 0.4 MG SL Q5M PRN for CHEST PAIN, #30 TAB Continued Medications: Cinacalcet (Sensipar) 30 Mg Tab 30 MG PO DAILY, #30 TAB 0 Refills Clopidogrel (Plavix) 75 Mg Tab 75 MG PO DAILY for Blood Clot Prevention, #30 TAB 0 Refills Gabapentin (Gabapentin) 300 Mg Cap 300 MG PO BID, #60 CAP 0 Refills Insulin Lispro (Human) Inj (Humalog Inj) 1,000 Unit/10 Ml Vial SQ ACHS for Blood Sugar Management, #1 VIAL 0 Refills SLIDING SCALE DIRECTED Levothyroxine (Synthroid) 125 Mcg Tab 125 MCG PO DAILY for Thyroid, #30 TAB 0 Refills Discontinued Medications: Carvedilol (Coreg) 12.5 Mg Tab 12.5 MG PO BID, #60 TAB 0 Refills Lizzie Medeiros MD Jul 23, 2017 08:47
--- NOTE | 2017-07-23 08:52 | HHI.FF ---
Face to Face Verification Diagnosis: (1) ESRD (end stage renal disease) on dialysis (2) NSTEMI (non-ST elevated myocardial infarction) (3) Hypertension (4) Peripheral vascular disease (5) Coronary artery disease (6) Amputated toe of left foot (7) Diabetes mellitus type 2 with complications Physical Therapy Order: Evaluate and Treat Home Health Nursing Order: Medical education Signs/symptoms of disease process Diabetic education Medication education-adverse effect Nursing assessment with vital signs I have seen patient Mary Jarrell on 07/23/17. My clinical findings support the need for the requested home health care services because: Ltd mobility - disease progression Patient has SOB I certify that my clinical findings support that this patient is homebound because: Post-op weakness Unsteady gait/balance Lizzie Medeiros MD Jul 23, 2017 08:52
[2017-07-23] MEDS ORDERED: DEXTROSE 50% IN WATER 50 ML VIAL(D50) IV PUSH PRN (09:00)
[2017-07-23] MEDS ORDERED: GLUCAGON 1 MG/ML VIAL OTHER PRN (09:00)
[2017-07-23] MEDS ORDERED: NITR0.4S SL (09:21)
[2017-07-23] MEDS ORDERED: HYDR-3800 PO (09:21)
[2017-07-23] MEDS: GABAPENTIN 100 MG CAP PO SCH ×2 (10:13→13:00)
[2017-07-23] MEDS: CLOPIDOGREL 75 MG TAB PO SCH (10:13)
[2017-07-23] MEDS: CINACALCET HYDROCHLORIDE 30 MG TAB PO SCH (10:13)
[2017-07-23] MEDS: SODIUM CHLORIDE 0.9% FLUSH 10 ML FLUSH IV FLUSH SCH (10:14)
[2017-07-23] MEDS ORDERED: INSULIN ASPART SUPPLEMENTAL SCALE SQ SCH (12:00)
[2017-07-23] MEDS ORDERED: OXYGENDME NAS.CANULA (12:58)
[2017-07-23] MEDS ORDERED: OXYGENTANK NAS.CANULA (13:03)
[2017-07-23] MEDS ORDERED: CEFU1TAB18 PO (13:07)
[2017-07-23] MEDS ORDERED: LACTCHW3 CHEW (13:08)
[2017-07-23] MEDS ORDERED: LABETALOL HCL 100 MG TAB PO SCH (14:00)
[2017-07-23 14:44] LABS: AUTOMATED NEUTROPHIL # 9.6 TH/MM3 (1.8-7.7); BASOPHIL # 0.1 TH/MM3 (0-0.2); BASOPHIL % 0.5 % (0.0-2.0); EOSINOPHIL % 0.3 % (0.0-4.0); HEMATOCRIT 35.5 % (35.0-46.0); HEMOGLOBIN 11.8 GM/DL (11.6-15.3); LYMPH % 11.4 % (9.0-44.0); LYMPHOCYTE # 1.4 TH/MM3 (1.0-4.8); MEAN CELL VOLUME 97.7 FL (80.0-100.0); MEAN CORPUSCULAR HEMOGLOBIN 32.6 PG (27.0-34.0); MEAN CORPUSCULAR HGB CONC 33.3 % (32.0-36.0); MEAN PLATELET VOLUME 7.5 FL (7.0-11.0); MONO % 7.6 % (0.0-8.0); MONOCYTE # 0.9 TH/MM3 (0-0.9); NEUT % 80.2 % (16.0-70.0); PLATELET COUNT 281 TH/MM3 (150-450); RED BLOOD COUNT 3.64 MIL/MM3 (4.00-5.30); RED CELL DISTRIBUTION WIDTH 14.3 % (11.6-17.2)
[2017-07-23 15:15] LABS: BICARBONATE 30.5 MEQ/L (21.0-32.0); CREATININE 4.6 MG/DL (0.50-1.00)
--- NOTE | 2017-07-25 07:05 | EKG ---
Date Performed: 07/21/2017 Time Performed: 19:57:32 PTAGE: 71 years EKG: Sinus arrhythmia with 1st degree A-V block Left axis deviation IV conduction defect Cannot rule out anteroseptal infarct - age undetermined Possible left ventricular hypertrophy Lateral ST-T c hanges may be due to hypertrophy and/or ischemia Abnormal ECG NO PREVIOUS TRACING 07/21/20172056 Since the prior tracing, there has been no significan t change DOCTOR: Buffy Hernandez Interpretating Date/Time 07/25/2017 07:04:59
== END 2017-07-23 17:35 | disposition home health service (06) | DRG 291 ==
LOC: NEPE 11:36 → NEDA 14:26 → HCPC 17:48
PROVIDERS: ADMIT Family Medicine; ATTEND Family Medicine
DX: I13.2 Hypertensive heart and chronic kidney disease with heart failure and with stage 5 chronic kidney disease, or end stage renal disease (principal); N18.6 End stage renal disease; J96.90 Respiratory failure, unspecified, unspecified whether with hypoxia or hypercapnia; E11.22 Type 2 diabetes mellitus with diabetic chronic kidney disease; I25.82 Chronic total occlusion of coronary artery; E11.51 Type 2 diabetes mellitus with diabetic peripheral angiopathy without gangrene; I25.110 Atherosclerotic heart disease of native coronary artery with unstable angina pectoris; R11.2 Nausea with vomiting, unspecified; E03.9 Hypothyroidism, unspecified; I48.91 Unspecified atrial fibrillation; E78.5 Hyperlipidemia, unspecified; M19.90 Unspecified osteoarthritis, unspecified site; Z79.4 Long term (current) use of insulin; Z86.73 Personal history of transient ischemic attack (TIA), and cerebral infarction without residual deficits; Z89.422 Acquired absence of other left toe(s); Z95.1 Presence of aortocoronary bypass graft; Z96.41 Presence of insulin pump (external) (internal); Z99.2 Dependence on renal dialysis
CPT/HCPCS: 70450; 71045; 80048; 80053; 81001; 82550; 82552; 82948; 83605; 83690; 84484; 85025; 85027; 85610; 85730; 87086; 90935; 93005; 93306; 94150; 94618; 96361; 96372; 96374; 96375; J1644; J2060; J2270; J2405; J2550; J2765; J7040

== ENCOUNTER 2017-09-06 19:44 | Inpatient (IN) | payer MEDICARE, OTHER ==
[~2017-09-06] VITALS: Ht 170.2 cm; Wt 117.0 kg
[~2017-09-06 19:44] MED LIST changes: -CARV12.5 PO; +CEFU1TAB18 PO; +CINA30 PO; +GABA100C4 PO; +HYDR-3800 PO; +LABE100T2 PO; +LACTCHW3 CHEW; +NITR0.4S SL; +OXYGENDME NAS.CANULA; +OXYGENTANK NAS.CANULA; -SEVEL800 PO
[2017-09-06 20:00] VITALS: BP 140/63; PULSE 55; RESP 16; TEMP 97.9; O2SAT 96
[2017-09-06] MEDS ORDERED: ONDANSETRON HCL 4 MG/2 ML VIAL IV PUSH ONE (20:30)
[2017-09-06] MEDS ORDERED: SODIUM CHLORIDE 0.9% FLUSH 10 ML FLUSH IV FLUSH PRN (20:30)
[2017-09-06] MEDS ORDERED: MORPHINE SULFATE 2 MG/ML SYRINGE SQ ONE (20:30)
[2017-09-06 20:45] VITALS: BP 116/59; PULSE 56; RESP 18; TEMP 97.8; O2SAT 97
[2017-09-06 21:08] LABS: AUTOMATED NEUTROPHIL # 7.7 TH/MM3 (1.8-7.7); BASOPHIL # 0.1 TH/MM3 (0-0.2); BASOPHIL % 0.8 % (0.0-2.0); EOSINOPHIL # 0.1 TH/MM3 (0-0.4); HEMATOCRIT 28.4 % (35.0-46.0); HEMOGLOBIN 9.5 GM/DL (11.6-15.3); LYMPH % 12.1 % (9.0-44.0); LYMPHOCYTE # 1.3 TH/MM3 (1.0-4.8); MEAN CELL VOLUME 103.9 FL (80.0-100.0); MEAN CORPUSCULAR HEMOGLOBIN 34.6 PG (27.0-34.0); MEAN CORPUSCULAR HGB CONC 33.3 % (32.0-36.0); MEAN PLATELET VOLUME 7.5 FL (7.0-11.0); MONO % 13.6 % (0.0-8.0); MONOCYTE # 1.5 TH/MM3 (0-0.9); NEUT % 72.5 % (16.0-70.0); PLATELET COUNT 296 TH/MM3 (150-450); RED BLOOD COUNT 2.74 MIL/MM3 (4.00-5.30); RED CELL DISTRIBUTION WIDTH 19.6 % (11.6-17.2); WHITE BLOOD COUNT 10.7 TH/MM3 (4.0-11.0)
[2017-09-06 21:20] LABS: INTERNATIONAL NORMALIZED RATIO 1.1 RATIO; PROTHROMBIN TIME - PATIENT 10.9 SEC (9.8-11.6)
--- NOTE | 2017-09-06 21:21 | RADRPT ---
EXAM DATE/TIME: 09/06/2017 20:55 [facility] COMPARISON: No previous studies available for comparison. INDICATIONS : Left flank pain, patient had fem pop one week ago on left side. ORAL CONTRAST: No oral contrast ingested. RADIATION DOSE: 17.02 CTDIvol (mGy) MEDICAL HISTORY : Hypertension. Congestive heart failure. Renal failure. Dialysis. Diabetes. SURGICAL HISTORY : CABG Cholecystectomy. Appendectomy. ENCOUNTER: Initial ACUITY: 1 week PAIN SCALE: 6/10 LOCATION: Left flank TECHNIQUE: Volumetric scanning of the abdomen and pelvis was performed. Using automated exposure control and ad justment of the mA and/or kV according to patient size, radiation dose was kept as low as reasonably achievable to obtain optimal diagnostic quality images. DICOM format image data is available electro nically for review and comparison. FINDINGS: LOWER LUNGS: There are no confluent infiltrates or effusions. There is a calcified granuloma in the left lower lob e. There is a noncalcified one point centimeter soft tissue nodule in the right lower lobe best seen on image #10. LIVER: Homogeneous density without lesion. There is no dilation of the biliary tree. No calcified gallston es. SPLEEN: Normal size without lesion. PANCREAS: Within normal limits. KIDNEYS: Bilateral cortical atrophy is present. There is a small cyst extending off the left kidney. There is no mass, stone, or hydronephrosis. ADRENAL GLANDS: Within normal limits. VASCULAR: There is no aortic aneurysm. BOWEL/MESENTERY: The stomach, small bowel, and colon demonstrate no acute abnormality. There is no free intraperitone al air or fluid. ABDOMINAL WALL: Within normal limits. RETROPERITONEUM: There is no lymphadenopathy. BLADDER: No wall thickening or mass. REPRODUCTIVE: Within normal limits. INGUINAL: There is no lymphadenopathy or hernia. Post surgical changes are noted in the left groin with hematom a measuring up to 4.1 x 2.6 cm in diameter and mild surrounding soft tissue swelling and inflammatory change. MUSCULOSKELETAL: Within normal limits for patient age. CONCLUSION: 1. Post surgical changes in the left groin with hematoma. 2. 1.2 cm noncalcified pulmonary nodule in the right lower lobe which is nonspecific. A nonemergent o utpatient chest CT is recommended for further evaluation. 3. Cortical atrophy in both kidneys. Efrem Briceño MD on September 06, 2017 at 21:14 Board Certified Radiologist. This report was verified electronically.
--- NOTE | 2017-09-06 21:32 | RADRPT ---
EXAM DATE/TIME: 09/06/2017 21:03 [facility] COMPARISON: CT ABDOMEN & PELVIS W/O CONTRAST, September 06, 2017, 20:55. INDICATIONS : Hematoma. MEDICAL HISTORY : Congestive heart failure. Hypercholesterolemia. Hypertension. Thyroid disease. Renal disease. Renal f ailure. Arthritis. Diabetes. SURGICAL HISTORY : CABG. Cholecystectomy. Bilateral cataract surgery. ENCOUNTER: Initial ACUITY: 4-6 days PAIN SCORE: 10/10 LOCATION: Left leg. AREA EVALUATED: Left groin. FINDINGS: A targeted left groin ultrasound study was performed again there is a hematoma which is hypoechoic an d measures up to 6.1 x 2.4 x 5.3 cm in greatest diameter. This demonstrates no internal color flow. CONCLUSION: Left groin hematoma. Efrem Briceño MD on September 06, 2017 at 21:28 Board Certified Radiologist. This report was verified electronically.
[2017-09-06 21:40] LABS: ALT (GPT) 24 U/L (10-53)
[2017-09-06 21:41] LABS: ALBUMIN 2.5 GM/DL (3.4-5.0); AST (GOT) 32 U/L (15-37); BLOOD UREA NITROGEN 29 MG/DL (7-18); CALCIUM 9.4 MG/DL (8.5-10.1); CHLORIDE 99 MEQ/L (98-107); CREATININE 5.22 MG/DL (0.50-1.00); GLOMERULAR FILTRATION RATE 8 ML/MIN (>89); GLUCOSE,RANDOM 83 MG/DL (74-106); SODIUM (NA) 136 MEQ/L (136-145)
[2017-09-06 21:43] LABS: ALKALINE PHOSPHATASE 157 U/L (45-117); TOTAL BILIRUBIN ADULT 0.8 MG/DL (0.2-1.0); TOTAL PROTEIN 6.7 GM/DL (6.4-8.2)
--- NOTE | 2017-09-06 22:00 | RADRPT ---
EXAM DATE/TIME: 09/06/2017 21:07 [facility] COMPARISON: No previous studies available for comparison. INDICATIONS : Left leg swelling. MEDICAL HISTORY : Congestive heart failure. Hypertension. Hypercholesterolemia. Thyroid disease. Renal disease. Leny l failure. Arthritis. Diabetes. SURGICAL HISTORY : Cholecystectomy. CABG Bilateral cataract surgery. ENCOUNTER: Initial ACUITY: 4 - 6 days PAIN SCORE: 10/10 LOCATION: Left leg. TECHNIQUE: Venous ultrasound of the leg was performed from the inguinal ligament to the proximal calf. Real-ryan e, color Doppler and spectral tracing, compression and augmentation techniques were used. FINDINGS: The study is suboptimal and admitted secondary to postsurgical changes, wound VAC and multiple bandag es in the groin. Portions of the common femoral and superficial femoral veins were not well visualize d and could not be compressed. No definite deep venous thrombosis was identified. The known groin hem atoma was partially visualized. CONCLUSION: 1. Limited, suboptimal examination. 2. No definite deep venous thrombosis identified. 3. Partial visualization of the known groin hematoma. Efrem Briceño MD on September 06, 2017 at 21:55 Board Certified Radiologist. This report was verified electronically.
--- NOTE | 2017-09-06 22:29 | PD ---
HPI Chief Complaint: Pain: Acute or Chronic Time Seen by Provider: 20:30 Travel History International Travel<30 days: No Contact w/Intl Traveler<30days: No Traveled to known affect area: No History of Present Illness HPI 72-year-old female presents to the emergency department by EMS transport from [facility] for complaint of left lower extremity left hip and left flank pain. Patient is under the care of Dr. Brothers. Patient underwent L femoral- popliteal bypass, femoral endartectomy procedure last Tuesday08/30/17 at [facility]. Patient reportedly did well and was discharged on Tuesday afternoon to the rehab facility after undergoing hemodialysis. Patient has chronic kidney failure and is dialyzed on Wednesdays and Fridays. Patient had reported significant pain to the left lower extremity hip and back area on Tuesday and Tuesday reportedly felt better on Tuesday and underwent physical therapy at the rehab facility with walking and leg exercises. On Tuesday patient noted significant pain increase to the left lower extremity hip and back and stated it was so severe it interfered with her dialysis on Tuesday and patient is now scheduled for dialysis Tuesday and Tuesday of this week. Due to persistent greater than 10/10 pain to the left lower extremity hip and back patient is brought to the emergency room for evaluation. Patient reportedly had Percocet prior to being released from the nursing facility to the paramedics. Patient denies fever chills. Patient denies chest pain or shortness of breath. Patient had no pleuritic pain. Patient does not report any abdominal pain. Patient denies any upper extremity numbness tingling or weakness or pain and denies any right lower extremity symptoms. Patient had dressings changed on her left lower extremity as recently as 09/04/17. Patient is not noticed any drainage from the surgical sites. Patient has a wound VAC in place. Patient also reports history of diabetes. Reports blood sugars have been well controlled. PFSH Past Medical History Arthritis: Yes Autoimmune Disease: No Blood Disorders: No Cancer: No Cardiovascular Problems: Yes High Cholesterol: Yes Congestive Heart Failure: Yes Diabetes: Yes Diminished Hearing: No Endocrine: Yes Genitourinary: Yes (DIALYSIS TUE, TUE, TUE) Hepatitis: No Hiatal Hernia: No Hypertension: Yes Immune Disorder: No Musculoskeletal: Yes Neurologic: Yes (3 CAMERON IN THE PAST) Psychiatric: No Reproductive: No Respiratory: No Renal Failure: Yes Thyroid Disease: Yes ?: Not Past Surgical History Abdominal Surgery: Yes (GALLBLADDER 1973, APPY 1949) AICD: No Body Medical Devices: INSULIN PUMP, RUE DIALYSIS GRAFT STERNAL WIRES Cardiac Surgery: Yes (BYPASS TRIPLE ) Ear Surgery: No Endocrine Surgery: Yes Eye Surgery: Yes (CATARCT BILATERAL) Genitourinary Surgery: No Gynecologic Surgery: No Joint Replacement: No Oral Surgery: No Pacemaker: No Thoracic Surgery: Yes Other Surgery: Yes Social History Alcohol Use: No Tobacco Use: No Substance Use: No Allergies-Medications (Allergen,Severity, Reaction): Coded Allergies: amlodipine (Unverified Allergy, Severe, 01/11/17) bumetanide (Unverified Allergy, Severe, 01/11/17) PT STATES NOT ALLERGIC Reported Meds & Prescriptions Reported Meds & Active Scripts Active Oxygen tank (Oxygen) 1 Ea Tank Liter FLORINDA.CANULA CONTINUOUS Oxygen Concentrator Portable Gaseous 2 L/min via Nasal Cannula Continuous For 99 months Oxygen (O2) Device Liter FLORINDA.CANULA CONTINUOUS PRN Oxygen Concentrator Portable Gaseous 2 L/min via Nasal Canula Continuous For 99 months Nitrostat SL (Nitroglycerin) 0.4 Mg Subl 0.4 Mg SL Q5M PRN Gabapentin 100 Mg Cap 100 Mg PO TID Reported Carvedilol 6.25 Mg Tab 6.25 Mg PO BID Renvela (Sevelamer Carbonate) 800 Mg Tab 800 Mg PO TID Ranitidine (Ranitidine HCl) 150 Mg Tab 150 Mg PO BID Vytorin (Ezetimibe-Simvastatin) 10-80 Mg Tab 1 Tab PO HS Procrit Inj (Epoetin Dio) 2,000 Unit/Ml Inj 1,000 Units SQ TUESDAY Sensipar (Cinacalcet) 30 Mg Tab 30 Mg PO DAILY Humalog Inj (Insulin Human Lispro) 1,000 Unit/10 Ml Vial SQ ACHS SLIDING SCALE DIRECTED Synthroid (Levothyroxine Sodium) 125 Mcg Tab 125 Mcg PO DAILY Plavix (Clopidogrel Bisulfate) 75 Mg Tab 75 Mg PO DAILY Physical Exam Narrative GENERAL: Well-developed well-nourished obese female in discomfort without respiratory distress SKIN: Warm and dry. HEAD: Normocephalic. EYES: No scleral icterus. No injection or drainage. NECK: Supple, trachea midline. No JVD or lymphadenopathy. CARDIOVASCULAR: Regular rate and rhythm without murmurs, gallops, or rubs. RESPIRATORY: Breath sounds equal bilaterally. No accessory muscle use. GASTROINTESTINAL: Abdomen soft, non-tender, nondistended. Left lower quadrant mild tenderness without fluctuance or induration seems consistent with postoperative changes. MUSCULOSKELETAL: No cyanosis, or edema. Attention left lower extremity and left hip patient with wound VAC in place ecchymosis and tenderness to the left groin distally extremity is with edema however pink and warm with brisk capillary refill less than 2 seconds per digit dorsalis pedis pulse is not palpable but readily detected by as well as well as is posterior tibialis to Doppler Doppler. Patient has intact range of motion at the left ankle. Patient able to bend knee although slowly due to pain to the right groin. Left lower extremity surgical wounds are without redness induration tenderness or drainage jessika are placed. Left groin ecchymotic and tender to palpation. BACK: Nontender without obvious deformity. No CVA tenderness. Data Data Last Documented VS Vital Signs Date Time Temp Pulse Resp B/P (MAP) Pulse Ox O2 Delivery O2 Flow Rate FiO2 09/06/17 20:00 97.9 55 16 140/63 (88) 96 Orders Orders Complete Blood Count With Diff (09/06/17 20:30) Comprehensive Metabolic Panel (09/06/17 20:30) Lipase (09/06/17 20:30) Prothrombin Time / Inr (Pt) (09/06/17 20:30) Act Partial Throm Time (Ptt) (09/06/17 20:30) Urinalysis - C+S If Indicated (09/06/17 20:30) Ct Abd/Pel W/O Iv Contrast (09/06/17 20:30) Iv Access Insert/Monitor (09/06/17 20:30) Ecg Monitoring (09/06/17 20:30) Oximetry (09/06/17 20:30) Sodium Chloride 0.9% Flush (Ns Flush) (09/06/17 20:30) Ondansetron Inj (Zofran Inj) (09/06/17 20:30) Morphine Inj (Morphine Inj) (09/06/17 20:30) Us Leg Venous Doppler (09/06/17 ) Us Leg Hematoma/Pseudoaneurysm (09/06/17 ) Admit Order (Ed Use Only) (09/06/17 ) Clinical Immunologist / Telemetry [id number] (09/06/17 22:47) Activity Bed Rest (09/06/17 22:47) Notify Dr: Other (09/06/17 22:47) Consult Nephrology (09/06/17 ) Consult Vascular Surgery (09/06/17 ) Labs Laboratory Tests Test 09/06/17 20:40 White Blood Count 10.7 TH/MM3 Red Blood Count 2.74 MIL/MM3 Hemoglobin 9.5 GM/DL Hematocrit 28.4 % Mean Corpuscular Volume 103.9 FL Mean Corpuscular Hemoglobin 34.6 PG Mean Corpuscular Hemoglobin Concent 33.3 % Red Cell Distribution Width 19.6 % Platelet Count 296 TH/MM3 Mean Platelet Volume 7.5 FL Neutrophils (%) (Auto) 72.5 % Lymphocytes (%) (Auto) 12.1 % Monocytes (%) (Auto) 13.6 % Eosinophils (%) (Auto) 1.0 % Basophils (%) (Auto) 0.8 % Neutrophils # (Auto) 7.7 TH/MM3 Lymphocytes # (Auto) 1.3 TH/MM3 Monocytes # (Auto) 1.5 TH/MM3 Eosinophils # (Auto) 0.1 TH/MM3 Basophils # (Auto) 0.1 TH/MM3 CBC Comment DIFF FINAL Differential Comment Prothrombin Time 10.9 SEC Prothromb Time International Ratio 1.1 RATIO Activated Partial Thromboplast Time 27.5 SEC Blood Urea Nitrogen 29 MG/DL Creatinine 5.22 MG/DL Random Glucose 83 MG/DL Total Protein 6.7 GM/DL Albumin 2.5 GM/DL Calcium Level 9.4 MG/DL Alkaline Phosphatase 157 U/L Aspartate Amino Transf (AST/SGOT) 32 U/L Alanine Aminotransferase (ALT/SGPT) 24 U/L Total Bilirubin 0.8 MG/DL Sodium Level 136 MEQ/L Potassium Level 4.9 MEQ/L Chloride Level 99 MEQ/L Carbon Dioxide Level 26.0 MEQ/L Anion Gap 11 MEQ/L Estimat Glomerular Filtration Rate 8 ML/MIN Lipase 46 U/L MDM Medical Decision Making Medical Screen Exam Complete: Yes Emergency Medical Condition: Yes Medical Record Reviewed: Yes Interpretation(s) Last Impressions Abdomen/Pelvis CT 09/06/172029 Signed Impressions: Service Date/Time: Wednesday, September 06, 2017 20:55 - CONCLUSION: 1. Post surgical changes in the left groin with hematoma. 2. 1.2 cm noncalcified pulmonary nodule in the right lower lobe which is nonspecific. A nonemergent outpatient chest CT is recommended for further evaluation. 3. Cortical atrophy in both kidneys. Efrem Briceño MD Lower Extremity Ultrasound 09/06/17 0000 Signed Impressions: Service Date/Time: Wednesday, September 06, 2017 21:03 - CONCLUSION: Left groin hematoma. Efrem Briceño MD Lower Extremity Ultrasound 09/06/17 0000 Signed Impressions: Service Date/Time: Wednesday, September 06, 2017 21:07 - CONCLUSION: 1. Limited, suboptimal examination. 2. No definite deep venous thrombosis identified. 3. Partial visualization of the known groin hematoma. Efrem Briceño MD CBC & BMP Diagram 09/06/17 20:40 Total Protein 6.7, Albumin 2.5 L, Calcium Level 9.4, Alkaline Phosphatase 157 H , Aspartate Amino Transf (AST/SGOT) 32, Alanine Aminotransferase (ALT/SGPT) 24, Total Bilirubin 0.8 Vital Signs Date Time Temp Pulse Resp B/P (MAP) Pulse Ox O2 Delivery O2 Flow Rate FiO2 09/06/17 20:00 97.9 55 16 140/63 (88) 96 Differential Diagnosis Leg pain musculoskeletal pain DVT limb ischemia fracture cellulitis abscess Narrative Course IV access obtained specimens collected and sent for resulting; patient administered morphine for pain management Imaging studies ordered CT abdomen pelvis reveals left groin hematoma Ultrasound left lower extremity no obvious DVT hematoma is noted; ultrasound for hematoma versus similar aneurysm shows fluid collection without flow consistent with hematoma. Lab values found to be grossly within normal range Patient's case discussed with her vascular surgeon Dr. Brothers recommends observation admission to medicine service with consult to vascular in the a.m. to further address patient's symptoms. Physician Communication Physician Communication discussed with Dr Brothers; call placed to Dr Guerrero Diagnosis Primary Impression: Groin hematoma Admitting Information Admitting Physician Requests: Observation Shreya Pablo MD Sep 06, 2017 22:29
[2017-09-06 22:54] VITALS: BP 102/50; PULSE 52; RESP 15; O2SAT 96
[2017-09-06] MEDS ORDERED: RANI150T PO (23:11)
[2017-09-06] MEDS ORDERED: CARV6.252 PO (23:11)
[2017-09-06] MEDS ORDERED: SEVEL800 PO (23:11)
[2017-09-06] MEDS ORDERED: [UNRECOGNIZED DRUG - CODE] SQ (23:11)
[2017-09-06] MEDS ORDERED: VYTO10TA25 PO (23:11)
[2017-09-07] VITALS (8 sets, daily range): BP systolic 80–129; BP diastolic 35–56; PULSE 49–88; RESP 16–18; TEMP 97.7–98.7; O2SAT 92–98
[2017-09-07] MEDS ORDERED: ONDANSETRON HCL 4 MG/2 ML VIAL IVP PRN (01:30)
[2017-09-07] MEDS ORDERED: LACTULOSE SYRUP 20 GM/30 ML CUP PO PRN (01:30)
[2017-09-07] MEDS ORDERED: SODIUM CHLORIDE 0.9% FLUSH 10 ML FLUSH IV FLUSH PRN ×2 (01:30→09:45)
[2017-09-07] MEDS ORDERED: SENNOSIDES 8.6 MG TAB PO PRN (01:30)
[2017-09-07] MEDS ORDERED: NALOXONE HCL 0.4 MG/ML AMP IV PUSH PRN (01:30)
[2017-09-07] MEDS ORDERED: BISACODYL 10 MG SUPP RECTAL PRN (01:30)
[2017-09-07] MEDS ORDERED: MAGNESIUM HYDROXIDE SUSP 30 ML CUP PO PRN (01:30)
[2017-09-07] MEDS: MORPHINE SULFATE 2 MG/ML SYRINGE IV PUSH PRN ×2 (01:53→10:15)
--- NOTE | 2017-09-07 03:22 | HHI.HP ---
[facility] Anila (Garret) MD Aden Admission Diagnosis L groin hematoma s/p Fem-Pop bypass Diagnoses: Travel History International Travel<30 Days: No Contact w/Intl Traveler <30 Da: No Traveled to Known Affected Are: No History of Present Illness 72-year-old female with a past medical history significant for diabetes mellitus , end-stage renal disease on dialysis, peripheral vascular disease, coronary artery disease, hypertension and hyperlipidemia presents to the emergency department from [facility] for the evaluation of left hip and left lower extremity pain. The patient had a left femoral-popliteal bypass and femoral endarterectomy last Tuesday on 08/30/17 at [facility]. The patient reportedly did well and was discharged on Tuesday to rehabilitation facility after undergoing hemodialysis. She reports that her pain was not adequately treated a [facility] and yesterday it became so severe that she had an ambulance transport her to the emergency department for further evaluation. Patient denies any chest pain or shortness of breath. Denies abdominal pain. No nausea/vomiting/diarrhea. No lateralizing signs/symptoms. No weakness. Review of Systems Except as stated in HPI: all other systems reviewed are Neg Past Family Social History Past Medical History Diabetes mellitus End-stage renal disease on dialysis Tuesday Peripheral vascular disease Hypertension Hyperlipidemia Coronary artery disease Past Surgical History Appendectomy Cholecystectomy CABG 3 Left second toe amputation Femoral-popliteal bypass with femoral endarterectomy Reported Medications Reported Meds & Active Scripts Active Oxygen tank (Oxygen) 1 Ea Tank Liter FLORINDA.CANULA CONTINUOUS Oxygen Concentrator Portable Gaseous 2 L/min via Nasal Cannula Continuous For 99 months Oxygen (O2) Device Liter FLORINDA.CANULA CONTINUOUS PRN Oxygen Concentrator Portable Gaseous 2 L/min via Nasal Canula Continuous For 99 months Nitrostat SL (Nitroglycerin) 0.4 Mg Subl 0.4 Mg SL Q5M PRN Gabapentin 100 Mg Cap 100 Mg PO TID Reported Carvedilol 6.25 Mg Tab 6.25 Mg PO BID Renvela (Sevelamer Carbonate) 800 Mg Tab 800 Mg PO TID Ranitidine (Ranitidine HCl) 150 Mg Tab 150 Mg PO BID Vytorin (Ezetimibe-Simvastatin) 10-80 Mg Tab 1 Tab PO HS Procrit Inj (Epoetin Dio) 2,000 Unit/Ml Inj 1,000 Units SQ TUESDAY Sensipar (Cinacalcet) 30 Mg Tab 30 Mg PO DAILY Humalog Inj (Insulin Human Lispro) 1,000 Unit/10 Ml Vial SQ ACHS SLIDING SCALE DIRECTED Synthroid (Levothyroxine Sodium) 125 Mcg Tab 125 Mcg PO DAILY Plavix (Clopidogrel Bisulfate) 75 Mg Tab 75 Mg PO DAILY Allergies: Coded Allergies: amlodipine (Unverified Allergy, Severe, 01/11/17) bumetanide (Unverified Allergy, Severe, 01/11/17) PT STATES NOT ALLERGIC Family History Father with cardiac disease Social History Negative for alcohol, tobacco and illicit drugs Physical Exam Vital Signs Vital Signs Date Time Temp Pulse Resp B/P (MAP) Pulse Ox O2 Delivery O2 Flow Rate FiO2 09/07/17 00:47 98.4 49 16 129/56 (80) 96 09/07/17 00:33 09/06/17 22:54 52 15 102/50 (67) 96 Room Air 09/06/17 20:00 97.9 55 16 140/63 (88) 96 Physical Exam GENERAL: female lying in bed SKIN: No rashes, ecchymoses or lesions. Cool and dry. Left wound VAC in place. HEAD: Atraumatic. Normocephalic. No temporal or scalp tenderness. EYES: Pupils equal round and reactive. Extraocular motions intact. No scleral icterus. No injection or drainage. ENT: Nose without bleeding, purulent drainage or septal hematoma. Throat without erythema, tonsillar hypertrophy or exudate. Uvula midline. Airway patent. NECK: Trachea midline. No JVD or lymphadenopathy. Supple, nontender, no meningeal signs. CARDIOVASCULAR: Regular rate and rhythm without murmurs, gallops, or rubs. RESPIRATORY: Clear to auscultation. Breath sounds equal bilaterally. No wheezes , rales, or rhonchi. GASTROINTESTINAL: Abdomen soft, non-tender, nondistended. No hepato-splenomegaly , or palpable masses. No guarding. MUSCULOSKELETAL: Extremities without clubbing, cyanosis, or edema. No joint tenderness, effusion, or edema noted. No calf tenderness. Negative Homans sign bilaterally. NEUROLOGICAL: Awake and alert. Cranial nerves II through XII intact. Motor and sensory grossly within normal limits. Normal speech. Laboratory Laboratory Tests Test 09/06/17 20:40 White Blood Count 10.7 Red Blood Count 2.74 Hemoglobin 9.5 Hematocrit 28.4 Mean Corpuscular Volume 103.9 Mean Corpuscular Hemoglobin 34.6 Mean Corpuscular Hemoglobin Concent 33.3 Red Cell Distribution Width 19.6 Platelet Count 296 Mean Platelet Volume 7.5 Neutrophils (%) (Auto) 72.5 Lymphocytes (%) (Auto) 12.1 Monocytes (%) (Auto) 13.6 Eosinophils (%) (Auto) 1.0 Basophils (%) (Auto) 0.8 Neutrophils # (Auto) 7.7 Lymphocytes # (Auto) 1.3 Monocytes # (Auto) 1.5 Eosinophils # (Auto) 0.1 Basophils # (Auto) 0.1 CBC Comment DIFF FINAL Differential Comment Prothrombin Time 10.9 Prothromb Time International Ratio 1.1 Activated Partial Thromboplast Time 27.5 Blood Urea Nitrogen 29 Creatinine 5.22 Random Glucose 83 Total Protein 6.7 Albumin 2.5 Calcium Level 9.4 Alkaline Phosphatase 157 Aspartate Amino Transf (AST/SGOT) 32 Alanine Aminotransferase (ALT/SGPT) 24 Total Bilirubin 0.8 Sodium Level 136 Potassium Level 4.9 Chloride Level 99 Carbon Dioxide Level 26.0 Anion Gap 11 Estimat Glomerular Filtration Rate 8 Lipase 46 Result Diagram: 09/06/17203909/06/172039 Caprini VTE Risk Assessment Caprini VTE Risk Assessment: Mod/High Risk (score >= 2) Caprini Risk Assessment Model Point Value = 1 Point Value = 2 Point Value = 3 Point Value = 5 Age 41-60 Minor surgery BMI > 25 kg/m2 Swollen legs Varicose veins or History of unexplained or recurrent spontaneous Oral contraceptives or hormone replacement Sepsis (< 1 month) Serious lung disease, including pneumonia (< 1 month) Abnormal pulmonary function Acute myocardial infarction Congestive heart failure (< 1 month) History of inflammatory bowel disease Medical patient at bed rest Age 61-74 Arthroscopic surgery Major open surgery (> 45 min) Laparoscopic surgery (> 45 min) Malignancy Confined to bed (> 72 hours) Immobilizing plaster cast Central venous access Age >= 75 History of VTE Family history of VTE Factor V Leiden Prothrombin [id number] Lupus anticoagulant Anticardiolipin antibodies Elevated serum homocysteine Heparin-induced thrombocytopenia Other congenital or acquired thrombophilia Stroke (< 1 month) Elective arthroplasty Hip, pelvis, or leg fracture Acute spinal cord injury (< 1 month) Prophylaxis Regimen Total Risk Factor Score Risk Level Prophylaxis Regimen 0-1 Low Early ambulation 2 Moderate Order ONE of the following: *Sequential Compression Device (SCD) *Heparin 5000 units SQ BID 3-4 Higher Order ONE of the following medications: *Heparin 5000 units SQ TID *Enoxaparin/Lovenox 40 mg SQ daily (WT < 150 kg, CrCl > 30 mL/min) *Enoxaparin/Lovenox 30 mg SQ daily (WT < 150 kg, CrCl > 10-29 mL/min) *Enoxaparin/Lovenox 30 mg SQ BID (WT < 150 kg, CrCl > 30 mL/min) AND/OR *Sequential Compression Device (SCD) 5 or more Highest Order ONE of the following medications: *Heparin 5000 units SQ TID (Preferred with Epidurals) *Enoxaparin/Lovenox 40 mg SQ daily (WT < 150 kg, CrCl > 30 mL/min) *Enoxaparin/Lovenox 30 mg SQ daily (WT < 150 kg, CrCl > 10-29 mL/min) *Enoxaparin/Lovenox 30 mg SQ BID (WT < 150 kg, CrCl > 30 mL/min) AND *Sequential Compression Device (SCD) Assessment and Plan Assessment and Plan Assessment/plan: 1. Left hip/lower extremity pain/left groin hematoma CT of the abdomen/pelvis significant for left groin with hematoma Vascular surgery, Dr. Brothers consulted, appreciate recommendations Morphine for pain 2. 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 Diabetes mellitus Sliding scale insulin Monitor blood glucose 4. Hypertension/hyperlipidemia/CAD/hypothyroidism Continue home medications FEN NPO Electrolytes: monitor and replete prn Holding pharmacologic anticoagulation secondary to hematoma Robyn Guerrero MD Sep 07, 2017 03:22
[2017-09-07] MEDS ORDERED: DEXTROSE 50% IN WATER 50 ML VIAL(D50) IV PUSH PRN (04:15)
[2017-09-07] MEDS ORDERED: GLUCAGON 1 MG/ML VIAL OTHER PRN (04:15)
[2017-09-07] MEDS: LEVOTHYROXINE SODIUM 125 MCG TAB PO SCH (06:13)
[2017-09-07] MEDS: INSULIN ASPART SUPPLEMENTAL SCALE SQ SCH ×4 (08:00→21:00)
[2017-09-07] MEDS: CINACALCET HYDROCHLORIDE 30 MG TAB PO SCH (09:00)
[2017-09-07] MEDS ORDERED: SODIUM CHLOR 0.9% 1000 ML INJ 1,000 ML IV PRN (09:42)
[2017-09-07] MEDS ORDERED: SODIUM CHLOR 0.9% 1000 ML INJ 1,000 ML OTHER PRN (09:42)
[2017-09-07] MEDS ORDERED: ONDANSETRON HCL 4 MG/2 ML VIAL IV PUSH PRN (09:45)
[2017-09-07] MEDS ORDERED: diphenhydrAMINE HCL 25 MG CAP PO PRN (09:45)
[2017-09-07] MEDS ORDERED: cloNIDine HCL 0.1 MG TAB PO PRN (09:45)
[2017-09-07] MEDS ORDERED: HEPARIN SODIUM - IV 10,000 UNITS/10 ML VIAL PRN (09:45)
[2017-09-07] MEDS ORDERED: GENTAMICIN SULFATE 20 MG/2 ML VIAL OTHER PRN (09:45)
[2017-09-07] MEDS ORDERED: NITROGLYCERIN 0.4 MG SL 25 TABS/BTL SL PRN (09:45)
[2017-09-07] MEDS: CARVEDILOL 6.25 MG TAB PO SCH ×2 (10:13→20:51)
[2017-09-07] MEDS: CLOPIDOGREL 75 MG TAB PO SCH (10:13)
[2017-09-07] MEDS: GABAPENTIN 100 MG CAP PO SCH ×3 (10:13→20:52)
[2017-09-07] MEDS: DOCUSATE SODIUM 50 MG/SENNA 8.6 MG TAB PO SCH ×2 (10:14→20:50)
[2017-09-07] MEDS: SODIUM CHLORIDE 0.9% FLUSH 10 ML FLUSH IV FLUSH SCH ×2 (10:15→20:50)
[2017-09-07] MEDS ORDERED: traMADol HCL 50 MG TAB PO PRN (11:45)
[2017-09-07] MEDS ORDERED: LEVOFLOXACIN 500 MG TAB PO ONE (15:00)
[2017-09-07] MEDS ORDERED: VANCOMYCIN 1,000 MG/NS 250 ML IV ONE ×2 (15:00)
--- NOTE | 2017-09-07 16:00 | PD.CONS ---
HPI Consult Requested By Reason for Consult End-stage renal disease with need for inpatient dialysis. Primary Care Physician Anila (GarretAdrianne Samaniego MD History of Present Illness This patient is a 72-year-old female with a history of multiple medical problems including diabetes mellitus, hypertension, end-stage renal disease, anemia renal disease and peripheral vascular disease now recently status post left femoropopliteal bypass after developing subacute occlusion. Ration now presented with pain and noted to have evidence of a hematoma complicating the femoropopliteal bypass. Review of Systems Constitutional: COMPLAINS OF: Fatigue, DENIES: Diaphoretic episodes, Fever, Weight gain, Chills Respiratory: DENIES: Apneas, Cough, Snoring, Wheezing, Hemoptysis, Sputum production, Shortness of breath Cardiovascular: COMPLAINS OF: Lower Extremity Edema, DENIES: Chest pain, Palpitations, Syncope, Dyspnea on Exertion, PND, Orthopnea, Claudication Gastrointestinal: COMPLAINS OF: Abdominal pain, DENIES: Black stools, Bloody stools, Constipation, Diarrhea, Nausea, Vomiting, Difficulty Swallowing, Anorexia Musculoskeletal: COMPLAINS OF: Stiffness Past Family Social History Allergies: Coded Allergies: amlodipine (Unverified Allergy, Severe, 01/11/17) bumetanide (Unverified Allergy, Severe, 01/11/17) PT STATES NOT ALLERGIC Past Medical History End-stage renal disease Diabetes mellitus Hypertension Coronary artery disease Peripheral arterial disease. Previous [place] this. CVA 2. Coronary artery bypass grafting 3.. Patent grafts noted on cardiac catheterization last year. Right upper extremity AV fistula. Previous left second toe amputation. Past Surgical History Patient status post recent left femoropopliteal bypass. Reported Medications Reported Meds & Active Scripts Active Oxygen tank (Oxygen) 1 Ea Tank Liter FLORINDA.CANULA CONTINUOUS Oxygen Concentrator Portable Gaseous 2 L/min via Nasal Cannula Continuous For 99 months Oxygen (O2) Device Liter FLORINDA.CANULA CONTINUOUS PRN Oxygen Concentrator Portable Gaseous 2 L/min via Nasal Canula Continuous For 99 months Nitrostat SL (Nitroglycerin) 0.4 Mg Subl 0.4 Mg SL Q5M PRN Gabapentin 100 Mg Cap 100 Mg PO TID Reported Carvedilol 6.25 Mg Tab 6.25 Mg PO BID Renvela (Sevelamer Carbonate) 800 Mg Tab 800 Mg PO TID Ranitidine (Ranitidine HCl) 150 Mg Tab 150 Mg PO BID Vytorin (Ezetimibe-Simvastatin) 10-80 Mg Tab 1 Tab PO HS Procrit Inj (Epoetin Dio) 2,000 Unit/Ml Inj 1,000 Units SQ TUESDAY Sensipar (Cinacalcet) 30 Mg Tab 30 Mg PO DAILY Humalog Inj (Insulin Human Lispro) 1,000 Unit/10 Ml Vial SQ ACHS SLIDING SCALE DIRECTED Synthroid (Levothyroxine Sodium) 125 Mcg Tab 125 Mcg PO DAILY Plavix (Clopidogrel Bisulfate) 75 Mg Tab 75 Mg PO DAILY Active Ordered Medications Current Medications Sodium Chloride (NS Flush) 2 ml UNSCH PRN IV FLUSH FLUSH AFTER USING IV ACCESS ; Start 09/06/17 at 20:30; Stop 09/07/17 at 01:31; Status DC Ondansetron HCl (Zofran Inj) 4 mg ONCE ONCE IV PUSH Last administered on at 20:41; Start 09/06/17 at 20:30; Stop 09/06/17 at 20:35; Status DC Morphine Sulfate (Morphine Inj) 2 mg ONCE ONCE SQ Last administered on at 20:42; Start 09/06/17 at 20:30; Stop 09/06/17 at 20:35; Status DC Sodium Chloride (NS Flush) 2 ml UNSCH PRN IV FLUSH FLUSH AFTER USING IV ACCESS ; Start 09/07/17 at 01:30 Sodium Chloride (NS Flush) 2 ml BID IV FLUSH Last administered on 09/07/17at 10: 15; Start 09/07/17 at 09:00 Acetaminophen (Tylenol) 650 mg Q4H PRN PO TEMP > 100.4; Start 09/07/17 at 01:30 Ondansetron HCl (Zofran Inj) 4 mg Q6H PRN IVP NAUSEA OR VOMITING; Start at 01:30 Naloxone HCl (Narcan Inj) 0.4 mg UNSCH PRN IV PUSH SEE LABEL COMMENTS; Start at 01:30 Senna/Docusate Sodium ([place]-Colace) 1 tab BID PO Last administered on at 10:14; Start 09/07/17 at 09:00 Magnesium Hydroxide (Milk Of Magnesia Liq) 30 ml Q12H PRN PO Mild constipation ; Start 09/07/17 at 01:30 Sennosides (Senokot) 17.2 mg Q12H PRN PO Moderate constipation; Start 09/07/17 at 01:30 Bisacodyl (Dulcolax Supp) 10 mg DAILY PRN RECTAL SEVERE CONSITIPATION; Start at 01:30 Lactulose (Lactulose Liq) 30 ml DAILY PRN PO SEVERE CONSITIPATION; Start at 01:30 Morphine Sulfate (Morphine Inj) 2 mg Q3H PRN IV PUSH BREAKTHROUGH PAIN Last administered on 09/07/17at 10:15; Start 09/07/17 at 01:30 Carvedilol (Coreg) 6.25 mg BID PO Last administered on 09/07/17at 10:13; Start 09/07/17 at 09:00 Cinacalcet (Sensipar) 30 mg DAILY PO ; Start 09/07/17 at 09:00 Clopidogrel Bisulfate (Plavix) 75 mg DAILY PO Last administered on 09/07/17at 10 :13; Start 09/07/17 at 09:00 Gabapentin (Neurontin) 100 mg TID PO Last administered on 09/07/17at 14:10; Start 09/07/17 at 09:00 Levothyroxine Sodium (Synthroid) 125 mcg DAILY@0600 PO Last administered on 04/16at 06:13; Start 09/07/17 at 06:00 Non-Formulary Medication 1 tab HS PO ; Start 09/07/17 at 21:00; Status UNV Dextrose (D50w (Vial) Inj) 50 ml UNSCH PRN IV PUSH HYPOGLYCEMIA-SEE COMMENTS; Start 09/07/17 at 04:15 Glucagon (Glucagon Inj) 1 mg UNSCH PRN OTHER HYPOGLYCEMIA-SEE COMMENTS; Start 09/07/17 at 04:15 Insulin Aspart (NovoLOG SUPPLEMENTAL SCALE) 1 ACHS SLIDING SCALE SQ ; Start 04/16 at 08:00 EZETIMIBE (Zetia) 10 mg HS PO ; Start 09/07/17 at 21:00 Atorvastatin Calcium (Lipitor) 40 mg HS PO ; Start 09/07/17 at 21:00 Sodium Chloride 1,000 ml @ 0 mls/hr Q0M PRN OTHER For Prime & Rinse Back; Start 09/07/17 at 09:42 Sodium Chloride 1,000 ml @ 200 mls/hr Q5H PRN IV WITH DIALYSIS; Start 09/07/17 at 09:42 Sodium Chloride 1,000 ml @ 0 mls/hr Q0M PRN OTHER WITH DIALYSIS; Start at 09:42 Albumin Human 100 ml @ 60 mls/hr UNSCH PRN IV WITH DIALYSIS; Start 09/07/17 at 09:45 Sodium Chloride (NS Flush) 5 ml UNSCH PRN IV FLUSH WITH DIALYSIS; Start at 09:45 Heparin Sodium (Porcine) (Heparin Inj) UNSCH PRN .XX WITH DIALYSIS; Start 04/16 at 09:45 Gentamicin Sulfate (Gentamicin Inj) 20 mg UNSCH PRN OTHER WITH DIALYSIS; Start 09/07/17 at 09:45 Ondansetron HCl (Zofran Inj) 4 mg UNSCH PRN IV PUSH WITH DIALYSIS; Start at 09:45 Acetaminophen (Tylenol) 650 mg UNSCH PRN PO for headach, pain, temp > 101F; Start 09/07/17 at 09:45 Diphenhydramine HCl (Benadryl) 25 mg UNSCH PRN PO for hives/itching/anaphylaxis ; Start 09/07/17 at 09:45 Nitroglycerin (Nitrostat Sl) 0.4 mg UNSCH PRN SL CHEST PAIN; Start 09/07/17 at 09:45 Clonidine (Catapres) 0.1 mg UNSCH PRN PO for BP > 180/100 X 2 readings; Start 09/07/17 at 09:45 Epoetin Dio (Epogen Inj) 8,000 units UNSCH PRN IV PUSH WITH DIALYSIS; Start at 09:45 Gelatin (Gelfoam 12 Mm/7 Mm Top) 1 foam UNSCH PRN TOP SEE LABEL COMMENTS; Start 09/07/17 at 09:45 Tramadol HCl (Ultram) 50 mg Q6H PRN PO Pain 5-10 Last administered on at 14:11; Start 09/07/17 at 11:45 Vancomycin HCl 1000 mg/Sodium Chloride 250 ml @ 250 mls/hr ONCE ONCE IV Last administered on 09/07/17at 15:32; Start 09/07/17 at 15:00; Stop 09/07/17 at 15:59 Levofloxacin (Levaquin) 500 mg ONCE ONCE PO Last administered on 09/07/17at 15: 32; Start 09/07/17 at 15:00; Stop 09/07/17 at 15:01; Status DC Levofloxacin (Levaquin) 250 mg Q48H PO ; Start 09/09/17 at 15:00 Family History Noncontributory to current complaint. Social History No history of illicit drug use. Patient . Physical Exam Vital Signs Vital Signs Date Time Temp Pulse Resp B/P (MAP) Pulse Ox O2 Delivery O2 Flow Rate FiO2 09/07/17 11:50 98.7 51 18 99/47 (64) 97 09/07/17 07:39 98.0 50 18 120/56 (77) 97 09/07/17 07:30 96 21 09/07/17 04:46 97.8 50 16 113/55 (74) 98 09/07/17 00:47 98.4 49 16 129/56 (80) 96 09/07/17 00:33 09/06/17 22:54 52 15 102/50 (67) 96 Room Air 09/06/17 20:00 97.9 55 16 140/63 (88) 96 Physical Exam GENERAL: female lying in bed not in respiratory distress. SKIN: Warm and dry. HEAD: Normocephalic. EYES: No scleral icterus. No injection or drainage. NECK: Supple, trachea midline. No JVD or lymphadenopathy. CARDIOVASCULAR: Regular rate and rhythm without murmurs, gallops, or rubs. RESPIRATORY: Breath sounds equal bilaterally. No accessory muscle use. GASTROINTESTINAL: Abdomen soft, non-tender, nondistended. MUSCULOSKELETAL: No cyanosis, 2+ pitting edema extending from left foot to groin. 1-2+ pitting edema involving right lower extremity. Some erythema noted in the left groin area. Dressing overlying the area was not disturbed. Dressing overlying leg not disturbed. BACK: Nontender without obvious deformity. No CVA tenderness. Laboratory Laboratory Tests Test 09/06/17 20:40 White Blood Count 10.7 Red Blood Count 2.74 Hemoglobin 9.5 Hematocrit 28.4 Mean Corpuscular Volume 103.9 Mean Corpuscular Hemoglobin 34.6 Mean Corpuscular Hemoglobin Concent 33.3 Red Cell Distribution Width 19.6 Platelet Count 296 Mean Platelet Volume 7.5 Neutrophils (%) (Auto) 72.5 Lymphocytes (%) (Auto) 12.1 Monocytes (%) (Auto) 13.6 Eosinophils (%) (Auto) 1.0 Basophils (%) (Auto) 0.8 Neutrophils # (Auto) 7.7 Lymphocytes # (Auto) 1.3 Monocytes # (Auto) 1.5 Eosinophils # (Auto) 0.1 Basophils # (Auto) 0.1 CBC Comment DIFF FINAL Differential Comment Prothrombin Time 10.9 Prothromb Time International Ratio 1.1 Activated Partial Thromboplast Time 27.5 Blood Urea Nitrogen 29 Creatinine 5.22 Random Glucose 83 Total Protein 6.7 Albumin 2.5 Calcium Level 9.4 Alkaline Phosphatase 157 Aspartate Amino Transf (AST/SGOT) 32 Alanine Aminotransferase (ALT/SGPT) 24 Total Bilirubin 0.8 Sodium Level 136 Potassium Level 4.9 Chloride Level 99 Carbon Dioxide Level 26.0 Anion Gap 11 Estimat Glomerular Filtration Rate 8 Lipase 46 Result Diagram: 09/06/17203909/06/172039 Imaging Last 48 hours Impressions Abdomen/Pelvis CT 09/06/172029 Signed Impressions: Service Date/Time: Wednesday, September 06, 2017 20:55 - CONCLUSION: 1. Post surgical changes in the left groin with hematoma. 2. 1.2 cm noncalcified pulmonary nodule in the right lower lobe which is nonspecific. A nonemergent outpatient chest CT is recommended for further evaluation. 3. Cortical atrophy in both kidneys. Efrem Briceño MD Lower Extremity Ultrasound 09/06/17 0000 Signed Impressions: Service Date/Time: Wednesday, September 06, 2017 21:03 - CONCLUSION: Left groin hematoma. Efrem Briceño MD Lower Extremity Ultrasound 09/06/17 0000 Signed Impressions: Service Date/Time: Wednesday, September 06, 2017 21:07 - CONCLUSION: 1. Limited, suboptimal examination. 2. No definite deep venous thrombosis identified. 3. Partial visualization of the known groin hematoma. Efrem Briceño MD Assessment and Plan Problem List: (1) ESRD (end stage renal disease) on dialysis ICD Codes: N18.6 - End stage renal disease; Z99.2 - Dependence on renal dialysis Status: Chronic Plan: Patient will receive hemodialysis today per outpatient schedule. In addition the patient was scheduled to have extra dialysis treatments as an outpatient in view of significant fluid retention. I will plan to do dialysis today, tomorrow and subsequently Tuesday to improve her volume status. Patient agreeable. (2) Edema of both legs ICD Codes: R60.0 - Localized edema Plan: We'll try to improve edema as tolerated with hemodialysis. (3) Anemia of renal disease ICD Codes: D63.1 - Anemia in chronic kidney disease Plan: Epogen for anemia renal disease as ordered. (4) Secondary hyperparathyroidism of renal origin ICD Codes: N25.81 - Secondary hyperparathyroidism of renal origin Plan: Continue Sensipar for secondary hyperparathyroidism of renal disease. (5) Hematoma of groin ICD Codes: S30.1XXA - Contusion of abdominal wall, initial encounter Plan: Per CT scan status post recent femoropopliteal bypass. Management per vascular surgery. Vancomycin will be given postdialysis today as ordered by surgery. Patient will need vancomycin post-each dialysis treatment if surgery plans continue same. (6) Diabetes mellitus ICD Codes: E11.9 - Type 2 diabetes mellitus without complications Status: Acute Kimberly Sampson MD Sep 07, 2017 16:00
[2017-09-07] MEDS: ALBUMIN 25% INJ 100 ML IV PRN ×2 (18:00→18:20)
--- NOTE | 2017-09-07 20:03 | MB ---
cc: Shant Brothers MD, James T MD DATE: 09/07/2017 REASON FOR CONSULTATION: Left thigh and hip pain following 08/30 left femoral popliteal bypass for limb-threatening ischemia. HISTORY OF PRESENT ILLNESS: This 72-year-old hypertensive, type 2 diabetic female with chronic kidney disease requiring maintenance hemodialysis on 08/30 required left femoral popliteal bypass for limb-threatening ischemia. The revascularization procedure was complicated due to severe, concentrically calcified popliteal and tibial runoff in conjunction with inadequate autogenous vein. A below-knee synthetic bypass graft was required. Also, exogenous obesity required extended retraction to allow adequate femoral exposure. She recovered uneventfully and was transferred to a rehab facility late last week. Her contacted me yesterday stating that Ms. Jarrell was experiencing severe pain within the left groin and thigh. She was brought to our emergency room for further evaluation and management. PAST MEDICAL HISTORY: 1. Hypertension. 2. Type 2 diabetes mellitus with diabetic nephropathy, requiring maintenance hemodialysis. 3. Exogenous obesity. 4. Coronary artery disease, status post myocardial infarction. 5. A 3-vessel CABG, 2002. 6. Diabetic retinopathy. 7. Hypothyroidism. PAST SURGICAL HISTORY: As above. Appendectomy 49, cholecystectomy 72, insulin pump placement. MEDICATIONS: Detailed in the medication reconciliation form. PHYSICAL EXAMINATION: VITAL SIGNS: Vitals are recorded in the medical record. GENERAL: A well-developed, obese 72-year-old female with pleasant affect. Alert, oriented to person, place and time. Cardiac rhythm is sinus. Well-healed sternotomy noted. LUNGS: Symmetrically expanded and clear. HEART: Faint bruit, both carotid bifurcations. No neck vein distention or HJR. A 2/6 systolic murmur, left sternal border. ABDOMEN: Obese, soft and nontender. EXTREMITIES: The skin and subcutaneous tissue surrounding the left femoral exposure incision is diffusely ecchymotic and vague erythema extends laterally. No drainage or fluctuance. The popliteal exposure incision is draining clear serous fluid; no incisional erythema apparent. The entire left leg is symmetrically edematous from the knee joint level distally, typical of post-revascularization edema and fluid retention. The femoral popliteal bypass is patent as evidenced by robust biphasic Doppler flow along the course of the prosthetic bypass graft as well as in the posterior tibial. The left foot is warm with brisk capillary refill. Ischemic necrosis of the distal aspect left great toe has become well demarcated. Surgical absence of left second toe noted. Bilateral knee saphenous vein harvest scars are noted as well. NEUROLOGIC: No gross focal deficit. IMAGING STUDIES: I reviewed the left lower extremity CT and ultrasound scans. IMPRESSION: 1. Patent left femoral popliteal bypass. 2. A 2 x 4 cm hematoma, left femoral exposure incision with surrounding cellulitis. PLAN: I changed both incisional dressings using sterile technique. Cultures of fluid left groin area obtained. We will initiate empiric IV vancomycin and oral Levaquin. We will follow with you. Thank you for allowing me to participate in this nice lady's care. MD Mor MejíaTS//rh , 06:16 PM , 06:41 PM
--- NOTE | 2017-09-07 20:10 | HHI.PR ---
Addendum to Inpatient Note Addendum Reason: Additional Documentation Additional Information The patient is complaining of severe left arm pain. Patient is in moderate to severe pain distress. Awake and alert, follows commands. Lungs clear to auscultation bilaterally. S1-S2 present. Abdomen is soft. Left groin has dressing which is C/D/I however there is warmth, induration and tenderness to palpation. Patient with a 24 cm hematoma with surrounding cellulitis. Continue IV antibiotics as started by vascular surgery. I will start the patient on [place] and given severe pain we will give 1 dose of 1 mg of IV Dilaudid and then started 0.5 mg as needed for breakthrough pain. Aj Bassett MD Sep 07, 2017 20:10
[2017-09-07] MEDS ORDERED: HYDROmorphone HCL PF 2 MG/ML VIAL IV PUSH PRN (20:15)
[2017-09-07] MEDS ORDERED: ACETAMINOPHEN/HYDROcodone 325 MG/5 MG TAB PO PRN (20:15)
[2017-09-07] MEDS ORDERED: HYDROmorphone HCL PF 2 MG/ML VIAL IV PUSH ONE (20:15)
[2017-09-07] MEDS: ATORVASTATIN 40 MG TAB PO SCH (20:50)
[2017-09-07] MEDS: EZETIMIBE 10 MG TAB PO SCH (20:51)
[2017-09-07] MEDS ORDERED: NON-FORMULARY DRUG (Ezetimibe-Simvastatin (Vytorin) 1 TAB) PO SCH (21:00)
[2017-09-08 02:33] LABS: HEMATOCRIT 28.5 % (35.0-46.0); HEMOGLOBIN 9.2 GM/DL (11.6-15.3)
--- NOTE | 2017-09-08 03:33 | RADRPT ---
EXAM DATE/TIME: 09/08/2017 02:33 [facility] COMPARISON: No previous studies available for comparison. INDICATIONS : Hematoma left hip post fem-pop. RADIATION DOSE: 25.51 CTDIvol (mGy) ; Combined studies MEDICAL HISTORY : Cardiovascular disease. Hypertension. renal failure. SURGICAL HISTORY : CABG Cholecystectomy. Appendectomy. ENCOUNTER: Initial ACUITY: 1 day PAIN SCALE: 7/10 LOCATION: Left TECHNIQUE: Volumetric scanning of the tibia and fibula was performed. Using automated exposure control and adju stment of the mA and/or kV according to patient size, radiation dose was kept as low as reasonably ac hievable to obtain optimal diagnostic quality images. DICOM format image data is available [facility] for review and comparison. FINDINGS: BONES: No evidence of fracture. Alignment is within normal limits. JOINTS: No evidence of joint narrowing or effusion. SOFT TISSUES: Muscles, tendons, and neurovascular structures are grossly unremarkable. No evidence of mass, organi zed fluid collection or foreign body. [place] are seen in the medial soft tissues. CONCLUSION: No fracture. Postsurgical changes. Marshall Watkins MD on September 08, 2017 at 3:30 Board Certified Radiologist. This report was verified electronically.
--- NOTE | 2017-09-08 03:35 | RADRPT ---
EXAM DATE/TIME: 09/08/2017 02:33 [facility] COMPARISON: No previous studies available for comparison. INDICATIONS : Hematoma post fem-pop. RADIATION DOSE: 25.51 CTDIvol (mGy) ; Combined studies MEDICAL HISTORY : Hypertension. Cardiovascular disease renal failure SURGICAL HISTORY : CABG Appendectomy. Cholecystectomy. ENCOUNTER: Initial ACUITY: 1 day PAIN SCALE: 7/10 LOCATION: Left femur TECHNIQUE: Volumetric scanning of the femur was performed. Using automated exposure control and adjustment of t he mA and/or kV according to patient size, radiation dose was kept as low as reasonably achievable to obtain optimal diagnostic quality images. DICOM format image data is available electronically for review and comparison. FINDINGS: BONES: No evidence of fracture. Alignment is within normal limits. JOINTS: No evidence of joint narrowing or effusion. SOFT TISSUES: Muscles, tendons, and neurovascular structures are grossly unremarkable. No evidence of mass or forei gn body. Small superficial hematoma in the inner thigh measures 4.2 cm CONCLUSION: Small hematoma in the thigh measures 4.2 cm. Marshall Watkins MD on September 08, 2017 at 3:32 Board Certified Radiologist. This report was verified electronically.
[2017-09-08 04:41] VITALS: BP 118/58; PULSE 57; RESP 18; TEMP 98.2; O2SAT 93
[2017-09-08] MEDS: LEVOTHYROXINE SODIUM 125 MCG TAB PO SCH (05:59)
[2017-09-08 08:00] VITALS: BP 128/58; PULSE 67; RESP 21; TEMP 98; O2SAT 97
[2017-09-08] MEDS: INSULIN ASPART SUPPLEMENTAL SCALE SQ SCH ×4 (08:00→23:11)
[2017-09-08] MEDS: CARVEDILOL 6.25 MG TAB PO SCH ×2 (09:00→21:37)
[2017-09-08] MEDS: DOCUSATE SODIUM 50 MG/SENNA 8.6 MG TAB PO SCH ×2 (09:00→23:10)
[2017-09-08] MEDS: CINACALCET HYDROCHLORIDE 30 MG TAB PO SCH (10:11)
[2017-09-08] MEDS: CLOPIDOGREL 75 MG TAB PO SCH (10:11)
[2017-09-08] MEDS: GABAPENTIN 100 MG CAP PO SCH ×3 (10:11→18:00)
[2017-09-08] MEDS: SODIUM CHLORIDE 0.9% FLUSH 10 ML FLUSH IV FLUSH SCH ×2 (10:12→23:11)
[2017-09-08 11:02] LABS: BASOPHIL # 0.1 TH/MM3 (0-0.2); BASOPHIL % 0.4 % (0.0-2.0); HEMATOCRIT 29.3 % (35.0-46.0); HEMOGLOBIN 9.4 GM/DL (11.6-15.3); LYMPH % 5.6 % (9.0-44.0); MEAN CELL VOLUME 104.3 FL (80.0-100.0); MEAN CORPUSCULAR HEMOGLOBIN 33.5 PG (27.0-34.0); MEAN CORPUSCULAR HGB CONC 32.1 % (32.0-36.0); MEAN PLATELET VOLUME 7.3 FL (7.0-11.0); MONO % 11.9 % (0.0-8.0); MONOCYTE # 2.2 TH/MM3 (0-0.9); NEUT % 82.1 % (16.0-70.0); PLATELET COUNT 289 TH/MM3 (150-450); RED CELL DISTRIBUTION WIDTH 19.7 % (11.6-17.2); WHITE BLOOD COUNT 18.3 TH/MM3 (4.0-11.0)
[2017-09-08 11:32] LABS: CALCIUM 9.5 MG/DL (8.5-10.1); CREATININE 4.79 MG/DL (0.50-1.00)
[2017-09-08 12:00] VITALS: BP 122/59; PULSE 59; RESP 20; TEMP 98.1; O2SAT 95
[2017-09-08] MEDS ORDERED: MORPHINE SULFATE 2 MG/ML SYRINGE IV PUSH ONE ×2 (12:45→13:15)
[2017-09-08] MEDS: ALBUMIN 25% INJ 100 ML IV PRN ×2 (15:37→15:57)
--- NOTE | 2017-09-08 16:46 | HHI.PR ---
Subjective Remarks Deferred entry - patient seen at 12: 30 pm Patient still experiencin pain on left groin Denies fevers or chills WBC trending up states dilaudid makes her loopy and refuses to have it. Objective Vitals Vital Signs Date Time Temp Pulse Resp B/P (MAP) Pulse Ox O2 Delivery O2 Flow Rate FiO2 09/08/17 12:00 98.1 59 20 122/59 (80) 95 09/08/17 08:00 98.0 67 21 128/58 (81) 97 09/08/17 04:41 98.2 57 18 118/58 (78) 93 09/08/17 03:47 16 09/07/17 23:51 98/42 (60) 09/07/17 23:39 98.6 88 18 80/35 (50) 92 09/07/17 21:30 18 I/O 09/07/17 09/07/17 09/07/17 09/08/17 09/08/17 09/08/17 07:00 15:00 23:00 07:00 15:00 23:00 Output Total 3000 ml Balance -3000 ml Output Hemodialysis 3000 ml Result Diagram: 09/08/17 1005 09/08/17 1005 Imaging Last Impressions Lower Extremity CT 09/08/17 0000 Signed Impressions: Service Date/Time: August 02:33 - CONCLUSION: No fracture. Postsurgical changes. Marshall Watkins MD Abdomen/Pelvis CT 09/06/172029 Signed Impressions: Service Date/Time: Wednesday, September 06, 2017 20:55 - CONCLUSION: 1. Post surgical changes in the left groin with hematoma. 2. 1.2 cm noncalcified pulmonary nodule in the right lower lobe which is nonspecific. A nonemergent outpatient chest CT is recommended for further evaluation. 3. Cortical atrophy in both kidneys. Efrem Briceño MD Lower Extremity Ultrasound 09/06/17 0000 Signed Impressions: Service Date/Time: Wednesday, September 06, 2017 21:03 - CONCLUSION: Left groin hematoma. Efrem Briceño MD Objective Remarks AAOx3 moderate distress due to pain The skin and subcutaneous tissue surrounding the left femoral exposure incision is diffusely ecchymotic and vague erythema extends laterally. No drainage or fluctuance. Medications and IVs Current Medications Medications (Trade) Dose Ordered Sig/Julius Route Start Time Stop Time Status Last Admin (NS Flush) 2 ml UNSCH PRN IV FLUSH 09/07/17 01:30 (NS Flush) 2 ml BID IV FLUSH 09/07/17 09:00 09/08/17 10:12 (Tylenol) 650 mg Q4H PRN PO 09/07/17 01:30 (Zofran Inj) 4 mg Q6H PRN IVP 09/07/17 01:30 (Narcan Inj) 0.4 mg UNSCH PRN IV PUSH 09/07/17 01:30 (Lucidna-Colace) 1 tab BID PO 09/07/17 09:00 09/07/17 20:50 (Milk Of Magnesia Liq) 30 ml Q12H PRN PO 09/07/17 01:30 (Senokot) 17.2 mg Q12H PRN PO 09/07/17 01:30 (Dulcolax Supp) 10 mg DAILY PRN RECTAL 09/07/17 01:30 (Lactulose Liq) 30 ml DAILY PRN PO 09/07/17 01:30 (Morphine Inj) 2 mg Q3H PRN IV PUSH 09/07/17 01:30 09/07/17 10:15 (Coreg) 6.25 mg BID PO 09/07/17 09:00 09/07/17 20:51 (Sensipar) 30 mg DAILY PO 09/07/17 09:00 09/08/17 10:11 (Plavix) 75 mg DAILY PO 09/07/17 09:00 09/08/17 10:11 (Neurontin) 100 mg TID PO 09/07/17 09:00 09/08/17 12:10 (Synthroid) 125 mcg DAILY@0600 PO 09/07/17 06:00 09/08/17 05:59 (D50w (Vial) Inj) 50 ml UNSCH PRN IV PUSH 09/07/17 04:15 (Glucagon Inj) 1 mg UNSCH PRN OTHER 09/07/17 04:15 (NovoLOG SUPPLEMENTAL SCALE) 1 ACHS SLIDING SCALE SQ 09/07/17 08:00 (Zetia) 10 mg HS PO 09/07/17 21:00 09/07/17 20:51 (Lipitor) 40 mg HS PO 09/07/17 21:00 09/07/17 20:50 Sodium Chloride 1,000 ml @ 0 mls/hr Q0M PRN OTHER 09/07/17 09:42 Sodium Chloride 1,000 ml @ 200 mls/hr Q5H PRN IV 09/07/17 09:42 Sodium Chloride 1,000 ml @ 0 mls/hr Q0M PRN OTHER 09/07/17 09:42 Albumin Human 100 ml @ 60 mls/hr UNSCH PRN IV 09/07/17 09:45 09/08/17 15:57 (NS Flush) 5 ml UNSCH PRN IV FLUSH 09/07/17 09:45 (Heparin Inj) UNSCH PRN .XX 09/07/17 09:45 (Gentamicin Inj) 20 mg UNSCH PRN OTHER 09/07/17 09:45 (Zofran Inj) 4 mg UNSCH PRN IV PUSH 09/07/17 09:45 (Tylenol) 650 mg UNSCH PRN PO 09/07/17 09:45 (Benadryl) 25 mg UNSCH PRN PO 09/07/17 09:45 (Nitrostat Sl) 0.4 mg UNSCH PRN SL 09/07/17 09:45 (Catapres) 0.1 mg UNSCH PRN PO 09/07/17 09:45 (Epogen Inj) 8,000 units UNSCH PRN IV PUSH 09/07/17 09:45 (Gelfoam 12 Mm/7 Mm Top) 1 foam UNSCH PRN TOP 09/07/17 09:45 (Levaquin) 250 mg Q48H PO 09/09/17 15:00 ([place] 5-325 Mg) 1 tab Q4H PRN PO 09/07/17 20:15 09/08/17 12:10 ([place] 5-325 Mg) 2 tab Q4H PRN PO 09/07/17 20:15 A/P Problem List: (1) Hematoma of groin ICD Code: S30.1XXA - Contusion of abdominal wall, initial encounter Status: Acute (2) Diabetes mellitus ICD Code: E11.9 - Type 2 diabetes mellitus without complications Status: Chronic (3) ESRD (end stage renal disease) on dialysis ICD Code: N18.6 - End stage renal disease; Z99.2 - Dependence on renal dialysis Status: Chronic (4) Anemia of renal disease ICD Code: D63.1 - Anemia in chronic kidney disease Assessment and Plan 1. Left hip/lower extremity pain/left groin hematoma CT of the abdomen/pelvis significant for left groin with hematoma Vascular surgery, Dr. Brothers consulted, appreciate recommendations Morphine for pain / There seems to be increased erythema, warmth on the left groin. DC Levaquin and start Zosyn IV, continue Vancomycin. Consult ID. Dc dilaudid for breakthrough pain. Place on Morphine. 2. End-stage renal disease on dialysis Patient reports she is supposed to be dialyzed daily secondary to volume overload Patient's financial operations consultant, Dr. Sampson consulted, appreciate assistance 3. Diabetes mellitus Sliding scale insulin Monitor blood glucose 4. Hypertension/hyperlipidemia/CAD/hypothyroidism Continue home medications FEN NPO Electrolytes: monitor and replete prn Holding pharmacologic anticoagulation secondary to hematoma Discharge Planning Id consulted Problem Qualifiers (1) Hematoma of groin: Qualified Codes: S30.1XXA - Contusion of abdominal wall, initial encounter (2) Diabetes mellitus: Aj Bassett MD Sep 08, 2017 16:46
--- NOTE | 2017-09-08 17:13 | HHI.NPPN ---
Subjective History of Present Illness This patient is a 72-year-old female with a history of multiple medical problems including diabetes mellitus, hypertension, end-stage renal disease, anemia renal disease and peripheral vascular disease now recently status post left femoropopliteal bypass after developing subacute occlusion. Ration now presented with pain and noted to have evidence of a hematoma complicating the femoropopliteal bypass. Interval History The patient was seen during her dialysis treatment today. Unfortunately not tolerating ultrafiltration goal secondary to hypotension. Patient did receive narcotics prior to dialysis today. This may have been contributory. Otherwise patient is alert with no verbal complaints. Review of Systems General Constitutional: Fatigue Objective Data Data Vital Signs Date Time Temp Pulse Resp B/P (MAP) Pulse Ox O2 Delivery O2 Flow Rate FiO2 09/08/17 12:00 98.1 59 20 122/59 (80) 95 09/08/17 08:00 98.0 67 21 128/58 (81) 97 09/08/17 04:41 98.2 57 18 118/58 (78) 93 09/08/17 03:47 16 09/07/17 23:51 98/42 (60) 09/07/17 23:39 98.6 88 18 80/35 (50) 92 09/07/17 21:30 18 -: 09/08/17 1005 09/08/17 1005 Physical Exam General Appearance: Well Nourished, No Acute Distress, Comfortable Pulmonary Resp Exam: Clear Bilaterally, Breath Sounds Equal Cardiology CV Exam: Regular, Normal Sinus Rhythm Gastrointestinal/Abdomen GI Exam: Soft, Non-Tender Integumentary Skin Exam: Clear, Warm, Normal Turgor Extremeties Extremities Exam: Moderate Edema (lower legs and feet.) Neurologic Neuro Exam: Alert, Awake Psychiatric Psych Exam: Appropriate Responses Assessment/Plan Discussed Condition With: Patient Problem List: (1) ESRD (end stage renal disease) on dialysis ICD Codes: N18.6 - End stage renal disease; Z99.2 - Dependence on renal dialysis Status: Chronic Plan: As indicated above probable hypotension during dialysis secondary to administration of narcotics prior to dialysis as well as ultrafiltration goal on dialysis. I will reduce the ultrafiltration goal today with subsequent repeat dialysis tomorrow for additional fluid removal. Thereafter continue regular schedule Tuesday. (2) Edema of both legs ICD Codes: R60.0 - Localized edema Plan: As above. (3) Anemia of renal disease ICD Codes: D63.1 - Anemia in chronic kidney disease Plan: Epogen for anemia renal disease as ordered. (4) Secondary hyperparathyroidism of renal origin ICD Codes: N25.81 - Secondary hyperparathyroidism of renal origin Plan: Continue Sensipar for secondary hyperparathyroidism of renal disease. (5) Hematoma of groin ICD Codes: S30.1XXA - Contusion of abdominal wall, initial encounter Plan: With probable superimposed cellulitis. Patient continues on Levaquin. Re-dose vancomycin today pending final decision from surgeon regarding antibiotic regimen. (6) Diabetes mellitus ICD Codes: E11.9 - Type 2 diabetes mellitus without complications Status: Acute Kimberly Sampson MD Sep 08, 2017 17:13
[2017-09-08] MEDS ORDERED: VANCOMYCIN INJ 1,000 MG in SODIUM CHLOR 0.9% 250 ML INJ 250 ML IV ONE (17:15)
[2017-09-08 18:00] VITALS: TEMP 100
[2017-09-08] MEDS: PIPERACIL-TAZO 2.25 GM PREMIX 50 ML IV SCH (18:58)
[2017-09-08 21:13] VITALS: BP 102/51; PULSE 86; RESP 18; TEMP 98.6; O2SAT 96
[2017-09-08] MEDS: EZETIMIBE 10 MG TAB PO SCH (23:10)
[2017-09-08] MEDS: ATORVASTATIN 40 MG TAB PO SCH (23:10)
[2017-09-09] MEDS: PIPERACIL-TAZO 2.25 GM PREMIX 50 ML IV SCH ×3 (03:34→18:19)
[2017-09-09 05:03] VITALS: BP 114/56; PULSE 59; RESP 18; TEMP 99.7; O2SAT 91
[2017-09-09] MEDS: LEVOTHYROXINE SODIUM 125 MCG TAB PO SCH (06:03)
[2017-09-09 07:40] VITALS: BP 114/50; PULSE 73; RESP 18; TEMP 100.4; O2SAT 92
[2017-09-09] MEDS: ACETAMINOPHEN/HYDROcodone 325 MG/5 MG TAB PO PRN (07:55)
[2017-09-09] MEDS: INSULIN ASPART SUPPLEMENTAL SCALE SQ SCH ×4 (08:00→20:51)
--- NOTE | 2017-09-09 08:41 | MB ---
cc: Bernardo Corrales MD, Franklyn F MD DATE: 09/08/2017 REQUESTING PHYSICIAN: Dr. Malhotra REASON FOR CONSULTATION: Hematoma of the left groin with surrounding cellulitis, worsening leukocytosis. HISTORY OF PRESENT ILLNESS: This is a 72-year-old white female who underwent left femoral popliteal bypass for limb-threatening ischemia on 08/30/2017. The patient started developing severe pain in the left groin on 09/06 and she was brought to the emergency department for evaluation. She was noted to have an area of ecchymosis at the groin and the proximal thigh on the left side. There was noted to be no drainage coming from the surgical site. A swab culture was performed on 09/07 and the culture has gram-negative lucien preliminary. White blood cell count is elevated at 18.3. The patient has a history of end-stage renal disease and undergoes hemodialysis. CT scan of the lower extremities shows a small hematoma measuring 4.[address] scan of the abdomen showed postsurgical changes in the left groin with hematoma. PAST MEDICAL HISTORY: Diabetes mellitus, peripheral vascular disease, hypertension, hyperlipidemia, coronary artery disease, end-stage kidney disease treated with hemodialysis. PAST SURGICAL HISTORY: Appendectomy, cholecystectomy, history of coronary artery bypass graft surgery x2, history of left second toe amputation. ALLERGIES: AMLODIPINE, BUMETANIDE MEDICATIONS: 1. Piperacillin/tazobactam 2. Zetia. 3. Lipitor. 4. [place] 5 p.r.n. 5. Plavix. 6. Sensipar. 7. Synthroid. 8. Neurontin. 9. Morphine sulfate p.r.n. SOCIAL HISTORY: The patient is . No tobacco, no alcohol, no illicit drugs. FAMILY HISTORY: Noncontributory. REVIEW OF SYSTEMS: Difficult to obtain since the patient is currently very drowsy. Main complaint is lower extremity pain on the left side. PHYSICAL EXAMINATION: GENERAL: This is a well-developed female who is currently somewhat drowsy. She awakens easily. VITAL SIGNS: Temperature 100 degrees, BP 122/59, respirations 20, heart rate 60. HEENT: Head is atraumatic. Extraocular movements grossly intact. Pupils reactive to light. No icterus. Oropharynx moist mucosa without lesions. NECK: Supple without adenopathy. LUNGS: Clear to auscultation with breath sounds diminished throughout. CARDIOVASCULAR: Regular S1 and S2. ABDOMEN: Bowel sounds present. Soft, no tenderness appreciated. RECTAL: Not performed. EXTREMITIES: The left groin has ecchymosis. The ecchymosis extends also to the proximal thigh on the left side. It is a large patch of ecchymosis and no significant erythema visible. There is edema of the left lower extremity including up to the thigh. There are 2 incisions in the left lower extremity from prior surgical procedure, which appear intact. The left great toe has dry necrotic eschar at the tip encompassing the entire frontal part of the tuft. SKIN: No diffuse rash. NEUROLOGIC: No gross focal finding. PSYCHIATRIC: The patient is calm and cooperative. LABORATORY DATA: WBC 18.3, platelets 289, hemoglobin 9.4, 82% neutrophils, 5% lymphocytes, 11% monocytes. Creatinine 4.79, BUN 25, sodium 136. IMPRESSION: 1. Gram-negative lucien infected left groin hematoma. May also have cellulitis of the left groin as well. 2. Leukocytosis secondary to infection. 3. End-stage kidney disease on hemodialysis. RECOMMENDATIONS: 1. Continue piperacillin/tazobactam. 2. Monitor gram-negative lucien identity and sensitivity to antibiotics. 3. Monitor clinical response. Further recommendations to be made based on the culture results. Thank you for this consultation. I will monitor the patient's progress with you and make further recommendations on followup if necessary. MD INGA Campuzano/ , 07:36 PM , 08:29 PM
[2017-09-09] MEDS: GABAPENTIN 100 MG CAP PO SCH ×3 (10:21→18:19)
[2017-09-09] MEDS: SODIUM CHLORIDE 0.9% FLUSH 10 ML FLUSH IV FLUSH SCH ×2 (10:21→22:11)
[2017-09-09] MEDS: DOCUSATE SODIUM 50 MG/SENNA 8.6 MG TAB PO SCH ×2 (10:21→22:11)
[2017-09-09] MEDS: CARVEDILOL 6.25 MG TAB PO SCH ×3 (10:21→22:10)
[2017-09-09] MEDS: CINACALCET HYDROCHLORIDE 30 MG TAB PO SCH (10:21)
[2017-09-09] MEDS: CLOPIDOGREL 75 MG TAB PO SCH (10:22)
[2017-09-09 10:50] VITALS: BP 121/58; PULSE 57; RESP 12; TEMP 99.3; O2SAT 96
[2017-09-09 11:48] LABS: AUTOMATED NEUTROPHIL # 19.7 TH/MM3 (1.8-7.7); BASOPHIL # 0.1 TH/MM3 (0-0.2); BASOPHIL % 0.4 % (0.0-2.0); HEMATOCRIT 26.5 % (35.0-46.0); HEMOGLOBIN 8.5 GM/DL (11.6-15.3); LYMPH % 5.3 % (9.0-44.0); LYMPHOCYTE # 1.2 TH/MM3 (1.0-4.8); MEAN CELL VOLUME 103.3 FL (80.0-100.0); MEAN CORPUSCULAR HEMOGLOBIN 33.2 PG (27.0-34.0); MEAN CORPUSCULAR HGB CONC 32.1 % (32.0-36.0); MEAN PLATELET VOLUME 7.6 FL (7.0-11.0); MONO % 9.9 % (0.0-8.0); MONOCYTE # 2.3 TH/MM3 (0-0.9); NEUT % 84.4 % (16.0-70.0); PLATELET COUNT 264 TH/MM3 (150-450); RED BLOOD COUNT 2.57 MIL/MM3 (4.00-5.30); RED CELL DISTRIBUTION WIDTH 19.5 % (11.6-17.2); WHITE BLOOD COUNT 23.3 TH/MM3 (4.0-11.0)
[2017-09-09 12:24] LABS: ALKALINE PHOSPHATASE 269 U/L (45-117); ALT (GPT) 161 U/L (10-53); AST (GOT) 283 U/L (15-37); BICARBONATE 26.9 MEQ/L (21.0-32.0); BLOOD UREA NITROGEN 32 MG/DL (7-18); CALCIUM 9.6 MG/DL (8.5-10.1); CHLORIDE 95 MEQ/L (98-107); CREATININE 4.74 MG/DL (0.50-1.00); GLOMERULAR FILTRATION RATE 9 ML/MIN (>89); GLUCOSE,RANDOM 180 MG/DL (74-106); MAGNESIUM 2.4 MG/DL (1.5-2.5); PHOSPHORUS 4.6 MG/DL (2.5-4.9); SODIUM (NA) 133 MEQ/L (136-145); TOTAL BILIRUBIN ADULT 1.1 MG/DL (0.2-1.0); TOTAL PROTEIN 6.5 GM/DL (6.4-8.2)
[2017-09-09] MEDS ORDERED: LEVOFLOXACIN 250 MG TAB PO SCH (15:00)
--- NOTE | 2017-09-09 15:02 | HHI.NPPN ---
Subjective History of Present Illness This patient is a 72-year-old female with a history of multiple medical problems including diabetes mellitus, hypertension, end-stage renal disease, anemia renal disease and peripheral vascular disease now recently status post left femoropopliteal bypass after developing subacute occlusion. Ration now presented with pain and noted to have evidence of a hematoma complicating the femoropopliteal bypass. Interval History Pt OK today. Pain controlled. Refused HD today. Says she will consent for tomorrow and then we will resume her MWF schedule. (Ayala Simmons) Review of Systems General Constitutional: Fatigue (Ayala Simmons) Objective Data Data Vital Signs Date Time Temp Pulse Resp B/P (MAP) Pulse Ox O2 Delivery O2 Flow Rate FiO2 09/09/17 10:50 99.3 57 12 121/58 (79) 96 Manual Cuff/Auscultation 09/09/17 07:40 100.4 73 18 114/50 (71) 92 09/09/17 05:03 99.7 59 18 114/56 (75) 91 09/08/17 21:13 98.6 86 18 102/51 (68) 96 09/08/17 18:00 100.0 (Ayala Simmons) -: 09/09/17 1128 09/09/17 1128 Imaging Last Impressions Lower Extremity CT 09/08/17 0000 Signed Impressions: Service Date/Time: August 02:33 - CONCLUSION: No fracture. Postsurgical changes. Marshall Watkins MD Abdomen/Pelvis CT [id number]/06/[id number] Signed Impressions: Service Date/Time: Wednesday, September 06, 2017 20:55 - CONCLUSION: 1. Post surgical changes in the left groin with hematoma. 2. 1.2 cm noncalcified pulmonary nodule in the right lower lobe which is nonspecific. A nonemergent outpatient chest CT is recommended for further evaluation. 3. Cortical atrophy in both kidneys. Efrem Briceño MD Lower Extremity Ultrasound 09/06/17 0000 Signed Impressions: Service Date/Time: Wednesday, September 06, 2017 21:03 - CONCLUSION: Left groin hematoma. Efrem Briceño MD Medication Review Current Medications Medications (Trade) Dose Ordered Sig/Julius Route Start Time Stop Time Status Last Admin (NS Flush) 2 ml UNSCH PRN IV FLUSH 09/07/17 01:30 (NS Flush) 2 ml BID IV FLUSH 09/07/17 09:00 09/09/17 10:21 (Tylenol) 650 mg Q4H PRN PO 09/07/17 01:30 (Zofran Inj) 4 mg Q6H PRN IVP 09/07/17 01:30 (Narcan Inj) 0.4 mg UNSCH PRN IV PUSH 09/07/17 01:30 (Lucinda-Colace) 1 tab BID PO 09/07/17 09:00 09/09/17 10:21 (Milk Of Magnesia Liq) 30 ml Q12H PRN PO 09/07/17 01:30 (Senokot) 17.2 mg Q12H PRN PO 09/07/17 01:30 (Dulcolax Supp) 10 mg DAILY PRN RECTAL 09/07/17 01:30 (Lactulose Liq) 30 ml DAILY PRN PO 09/07/17 01:30 (Morphine Inj) 2 mg Q3H PRN IV PUSH 09/07/17 01:30 09/07/17 10:15 (Coreg) 6.25 mg BID PO 09/07/17 09:00 09/09/17 10:21 (Sensipar) 30 mg DAILY PO 09/07/17 09:00 09/09/17 10:21 (Plavix) 75 mg DAILY PO 09/07/17 09:00 09/09/17 10:22 (Neurontin) 100 mg TID PO 09/07/17 09:00 09/09/17 13:41 (Synthroid) 125 mcg DAILY@0600 PO 09/07/17 06:00 09/09/17 06:03 (D50w (Vial) Inj) 50 ml UNSCH PRN IV PUSH 09/07/17 04:15 (Glucagon Inj) 1 mg UNSCH PRN OTHER 09/07/17 04:15 (NovoLOG SUPPLEMENTAL SCALE) 1 ACHS SLIDING SCALE SQ 09/07/17 08:00 (Zetia) 10 mg HS PO 09/07/17 21:00 09/08/17 23:10 (Lipitor) 40 mg HS PO 09/07/17 21:00 09/08/17 23:10 Sodium Chloride 1,000 ml @ 0 mls/hr Q0M PRN OTHER 09/07/17 09:42 Sodium Chloride 1,000 ml @ 200 mls/hr Q5H PRN IV 09/07/17 09:42 Sodium Chloride 1,000 ml @ 0 mls/hr Q0M PRN OTHER 09/07/17 09:42 Albumin Human 100 ml @ 60 mls/hr UNSCH PRN IV 09/07/17 09:45 09/08/17 15:57 (NS Flush) 5 ml UNSCH PRN IV FLUSH 09/07/17 09:45 (Heparin Inj) UNSCH PRN .XX 09/07/17 09:45 (Gentamicin Inj) 20 mg UNSCH PRN OTHER 09/07/17 09:45 (Zofran Inj) 4 mg UNSCH PRN IV PUSH 09/07/17 09:45 (Tylenol) 650 mg UNSCH PRN PO 09/07/17 09:45 (Benadryl) 25 mg UNSCH PRN PO 09/07/17 09:45 (Nitrostat Sl) 0.4 mg UNSCH PRN SL 09/07/17 09:45 (Catapres) 0.1 mg UNSCH PRN PO 09/07/17 09:45 (Epogen Inj) 8,000 units UNSCH PRN IV PUSH 09/07/17 09:45 (Gelfoam 12 Mm/7 Mm Top) 1 foam UNSCH PRN TOP 09/07/17 09:45 ([place] 5-325 Mg) 1 tab Q4H PRN PO 09/07/17 20:15 09/08/17 12:10 ([place] 5-325 Mg) 2 tab Q4H PRN PO 09/07/17 20:15 09/09/17 07:55 Piperacillin Sod/ Tazobactam Sod 50 ml @ 100 mls/hr Q8H IV 09/08/17 18:00 09/09/17 11:51 (Ayala Simmons) Physical Exam General Appearance: Well Nourished, No Acute Distress, Comfortable (Ayala Simmons) Pulmonary Resp Exam: Clear Bilaterally, Breath Sounds Equal (Ayala Simmons) Cardiology CV Exam: Regular, Normal Sinus Rhythm (Ayala Simmons) Gastrointestinal/Abdomen GI Exam: Soft, Non-Tender (Aayla Simmons) Integumentary Skin Exam: Clear, Warm, Normal Turgor (Ayala Simmons) Extremeties Extremities Exam: Moderate Edema (lower legs and feet.) (Ayala Simmons) Neurologic Neuro Exam: Alert, Awake (Ayala Simmons) Psychiatric Psych Exam: Appropriate Responses (Ayala Simmons) Assessment/Plan Discussed Condition With: Patient Problem List: (1) ESRD (end stage renal disease) on dialysis ICD Codes: N18.6 - End stage renal disease; Z99.2 - Dependence on renal dialysis Status: Chronic Plan: HD tomorrow and then resume MWF schedule Significant edema and refused extra HD today. (2) Edema of both legs ICD Codes: R60.0 - Localized edema Plan: As above. (3) Anemia of renal disease ICD Codes: D63.1 - Anemia in chronic kidney disease Status: Chronic Plan: Epogen for anemia renal disease as ordered. (4) Secondary hyperparathyroidism of renal origin ICD Codes: N25.81 - Secondary hyperparathyroidism of renal origin Plan: Continue Sensipar for secondary hyperparathyroidism of renal disease. (5) Hematoma of groin ICD Codes: S30.1XXA - Contusion of abdominal wall, initial encounter Status: Acute Plan: With probable superimposed cellulitis. ID on case. Now on Zosyn (6) Diabetes mellitus ICD Codes: E11.9 - Type 2 diabetes mellitus without complications Status: Chronic (7) Transaminitis ICD Codes: R74.0 - Nonspecific elevation of levels of transaminase and lactic acid dehydrogenase [LDH] Status: Acute Plan: Potentially related to APAP versus Zosyn? Repeat LFTs tomorrow. (Ayala Simmons) Plan The exam, history, and the medical decision-making described in the above note were completed with the assistance of the PALety. I reviewed and agree with the findings presented. (Kimberly Sampson MD) Problem Qualifiers (1) Hematoma of groin: Qualified Codes: S30.1XXA - Contusion of abdominal wall, initial encounter (2) Diabetes mellitus: Ayala Simmons Sep 09, 2017 15:02 Kimberly Sampson MD Sep 15, 2017 15:12
[2017-09-09 15:18] VITALS: BP 124/52; PULSE 56; RESP 20; O2SAT 93
--- NOTE | 2017-09-09 16:37 | HHI.PR ---
Subjective Remarks Rapid response activated yesterday during dialysis session patient found to be hypoglycemic. Patient states that she had her pump and her had been trying to manage her blood sugars. Patient states that she feels better and the pain in the left groin is better controlled. Patient has had a temperature with a T-max of 100.4. Objective Vitals Vital Signs Date Time Temp Pulse Resp B/P (MAP) Pulse Ox O2 Delivery O2 Flow Rate FiO2 09/09/17 15:18 56 20 124/52 (76) 93 09/09/17 10:50 99.3 57 12 121/58 (79) 96 Manual Cuff/Auscultation 09/09/17 07:40 100.4 73 18 114/50 (71) 92 09/09/17 05:03 99.7 59 18 114/56 (75) 91 09/08/17 21:13 98.6 86 18 102/51 (68) 96 09/08/17 18:00 100.0 I/O 09/08/17 09/08/17 09/08/17 09/09/17 09/09/17 09/09/17 07:00 15:00 23:00 07:00 15:00 23:00 Intake Total 480 ml 250 ml Output Total 1500 ml Balance -1020 ml 250 ml Intake Oral 480 ml IV Total 250 ml Output Hemodialysis 1500 ml # Voids 2 # Bowel Movements 2 Result Diagram: 09/09/17 1128 09/09/17 1128 Imaging Last Impressions Lower Extremity CT 09/08/17 0000 Signed Impressions: Service Date/Time: August 02:33 - CONCLUSION: No fracture. Postsurgical changes. Marshall Watkins MD Abdomen/Pelvis CT 09/06/172029 Signed Impressions: Service Date/Time: Wednesday, September 06, 2017 20:55 - CONCLUSION: 1. Post surgical changes in the left groin with hematoma. 2. 1.2 cm noncalcified pulmonary nodule in the right lower lobe which is nonspecific. A nonemergent outpatient chest CT is recommended for further evaluation. 3. Cortical atrophy in both kidneys. Efrem Briceño MD Lower Extremity Ultrasound 09/06/17 0000 Signed Impressions: Service Date/Time: Wednesday, September 06, 2017 21:03 - CONCLUSION: Left groin hematoma. Efrem Briceño MD Objective Remarks AAOx3 nad The skin and subcutaneous tissue surrounding the left femoral exposure incision is diffusely ecchymotic and vague erythema extends laterally. No drainage or fluctuance. Procedures None Medications and IVs Current Medications Medications (Trade) Dose Ordered Sig/Julius Route Start Time Stop Time Status Last Admin (NS Flush) 2 ml UNSCH PRN IV FLUSH 09/07/17 01:30 (NS Flush) 2 ml BID IV FLUSH 09/07/17 09:00 09/09/17 10:21 (Tylenol) 650 mg Q4H PRN PO 09/07/17 01:30 (Zofran Inj) 4 mg Q6H PRN IVP 09/07/17 01:30 (Narcan Inj) 0.4 mg UNSCH PRN IV PUSH 09/07/17 01:30 (Lucinda-Colace) 1 tab BID PO 09/07/17 09:00 09/09/17 10:21 (Milk Of Magnesia Liq) 30 ml Q12H PRN PO 09/07/17 01:30 (Senokot) 17.2 mg Q12H PRN PO 09/07/17 01:30 (Dulcolax Supp) 10 mg DAILY PRN RECTAL 09/07/17 01:30 (Lactulose Liq) 30 ml DAILY PRN PO 09/07/17 01:30 (Morphine Inj) 2 mg Q3H PRN IV PUSH 09/07/17 01:30 09/07/17 10:15 (Coreg) 6.25 mg BID PO 09/07/17 09:00 09/09/17 10:21 (Sensipar) 30 mg DAILY PO 09/07/17 09:00 09/09/17 10:21 (Plavix) 75 mg DAILY PO 09/07/17 09:00 09/09/17 10:22 (Neurontin) 100 mg TID PO 09/07/17 09:00 09/09/17 13:41 (Synthroid) 125 mcg DAILY@0600 PO 09/07/17 06:00 09/09/17 06:03 (D50w (Vial) Inj) 50 ml UNSCH PRN IV PUSH 09/07/17 04:15 (Glucagon Inj) 1 mg UNSCH PRN OTHER 09/07/17 04:15 (NovoLOG SUPPLEMENTAL SCALE) 1 ACHS SLIDING SCALE SQ 09/07/17 08:00 (Zetia) 10 mg HS PO 09/07/17 21:00 09/08/17 23:10 (Lipitor) 40 mg HS PO 09/07/17 21:00 09/08/17 23:10 Sodium Chloride 1,000 ml @ 0 mls/hr Q0M PRN OTHER 09/07/17 09:42 Sodium Chloride 1,000 ml @ 200 mls/hr Q5H PRN IV 09/07/17 09:42 Sodium Chloride 1,000 ml @ 0 mls/hr Q0M PRN OTHER 09/07/17 09:42 Albumin Human 100 ml @ 60 mls/hr UNSCH PRN IV 09/07/17 09:45 09/08/17 15:57 (NS Flush) 5 ml UNSCH PRN IV FLUSH 09/07/17 09:45 (Heparin Inj) UNSCH PRN .XX 09/07/17 09:45 (Gentamicin Inj) 20 mg UNSCH PRN OTHER 09/07/17 09:45 (Zofran Inj) 4 mg UNSCH PRN IV PUSH 09/07/17 09:45 (Tylenol) 650 mg UNSCH PRN PO 09/07/17 09:45 (Benadryl) 25 mg UNSCH PRN PO 09/07/17 09:45 (Nitrostat Sl) 0.4 mg UNSCH PRN SL 09/07/17 09:45 (Catapres) 0.1 mg UNSCH PRN PO 09/07/17 09:45 (Epogen Inj) 8,000 units UNSCH PRN IV PUSH 09/07/17 09:45 (Gelfoam 12 Mm/7 Mm Top) 1 foam UNSCH PRN TOP 09/07/17 09:45 ([place] 5-325 Mg) 1 tab Q4H PRN PO 09/07/17 20:15 09/08/17 12:10 ([place] 5-325 Mg) 2 tab Q4H PRN PO 09/07/17 20:15 09/09/17 07:55 Piperacillin Sod/ Tazobactam Sod 50 ml @ 100 mls/hr Q8H IV 09/08/17 18:00 09/09/17 11:51 A/P Problem List: (1) Hematoma of groin ICD Code: S30.1XXA - Contusion of abdominal wall, initial encounter Status: Acute (2) Diabetes mellitus ICD Code: E11.9 - Type 2 diabetes mellitus without complications Status: Chronic (3) ESRD (end stage renal disease) on dialysis ICD Code: N18.6 - End stage renal disease; Z99.2 - Dependence on renal dialysis Status: Chronic (4) Anemia of renal disease ICD Code: D63.1 - Anemia in chronic kidney disease Status: Chronic (5) Sepsis affecting skin ICD Code: A41.9 - Sepsis, unspecified organism Status: Acute (6) Hypoglycemia associated with type 2 diabetes mellitus ICD Code: E11.649 - Type 2 diabetes mellitus with hypoglycemia without coma Status: Resolved Assessment and Plan 1. Left hip/lower extremity pain/left groin hematoma/Sepsis CT of the abdomen/pelvis significant for left groin with hematoma Vascular surgery, Dr. Brothers consulted, appreciate recommendations Morphine for pain 09/08 There seems to be increased erythema, warmth on the left groin. DC Levaquin and start Zosyn IV, continue Vancomycin. Consult ID. Daryl bealaudid for breakthrough pain. Place on Morphine. 09/09 patient meets sepsis criteria with leukocytosis of 23 K and low-grade fever with a T-max of 100.4. Continue IV Zosyn. Infectious disease recommendations noted. 2. End-stage renal disease on dialysis Patient reports she is supposed to be dialyzed daily secondary to volume overload Patient's senior commercial loan officer, Dr. Sampson consulted, appreciate assistance 3. Diabetes mellitus Sliding scale insulin Monitor blood glucose 09/09 patient had episode of hypoglycemia on 09/08. Insulin Pump was turned off. Continue SSI for now. 4. Hypertension/hyperlipidemia/CAD/hypothyroidism Continue home medications FEN NPO Electrolytes: monitor and replete prn Holding pharmacologic anticoagulation secondary to hematoma Discharge Planning On IV antibiotics. Pending clinical improvement. Problem Qualifiers (1) Hematoma of groin: Qualified Codes: S30.1XXA - Contusion of abdominal wall, initial encounter (2) Diabetes mellitus: Aj Bassett MD Sep 09, 2017 16:37
--- NOTE | 2017-09-09 18:26 | HHI.IDPN ---
Note Infectious Disease Note Patient notes that she has pain in the left groin. Low-grade fever yesterday. Denies chills. The white blood cell count has increased. Wound culture has Klebsiella pneumoniae. Patient is status post left femoral popliteal bypass for limb-threatening ischemia on 08/30/2017. Started developing severe pain in the left groin on 09/06 and she was brought to the emergency department for evaluation. She was noted to have an area of ecchymosis at the groin and the proximal thigh on the left side. PAST MEDICAL HISTORY: Diabetes mellitus, peripheral vascular disease, hypertension, hyperlipidemia, coronary artery disease, end-stage kidney disease treated with hemodialysis. PAST SURGICAL HISTORY: Appendectomy, cholecystectomy, history of coronary artery bypass graft surgery x2, history of left second toe amputation. ALLERGIES: AMLODIPINE, BUMETANIDE MEDICATIONS: Current Medications Medications (Trade) Dose Ordered Sig/Julius Route PRN Reason Start Time Stop Time Status Last Admin Dose Admin Sodium Chloride (NS Flush) 2 ml UNSCH PRN IV FLUSH FLUSH AFTER USING IV ACCESS 09/07/17 01:30 Sodium Chloride (NS Flush) 2 ml BID IV FLUSH 09/07/17 09:00 09/09/17 10:21 Acetaminophen (Tylenol) 650 mg Q4H PRN PO TEMP > 100.4 09/07/17 01:30 Ondansetron HCl (Zofran Inj) 4 mg Q6H PRN IVP NAUSEA OR VOMITING 09/07/17 01:30 Naloxone HCl (Narcan Inj) 0.4 mg UNSCH PRN IV PUSH SEE LABEL COMMENTS 09/07/17 01:30 Senna/Docusate Sodium (Lucinda-Colace) 1 tab BID PO 09/07/17 09:00 09/09/17 10:21 Magnesium Hydroxide (Milk Of Magnesia Liq) 30 ml Q12H PRN PO Mild constipation 09/07/17 01:30 Sennosides (Senokot) 17.2 mg Q12H PRN PO Moderate constipation 09/07/17 01:30 Bisacodyl (Dulcolax Supp) 10 mg DAILY PRN RECTAL SEVERE CONSITIPATION 09/07/17 01:30 Lactulose (Lactulose Liq) 30 ml DAILY PRN PO SEVERE CONSITIPATION 09/07/17 01:30 Morphine Sulfate (Morphine Inj) 2 mg Q3H PRN IV PUSH BREAKTHROUGH PAIN 09/07/17 01:30 09/07/17 10:15 Carvedilol (Coreg) 6.25 mg BID PO 09/07/17 09:00 09/09/17 10:21 Cinacalcet (Sensipar) 30 mg DAILY PO 09/07/17 09:00 09/09/17 10:21 Clopidogrel Bisulfate (Plavix) 75 mg DAILY PO 09/07/17 09:00 09/09/17 10:22 Gabapentin (Neurontin) 100 mg TID PO 09/07/17 09:00 09/09/17 13:41 Levothyroxine Sodium (Synthroid) 125 mcg DAILY@0600 PO 09/07/17 06:00 09/09/17 06:03 Dextrose (D50w (Vial) Inj) 50 ml UNSCH PRN IV PUSH HYPOGLYCEMIA-SEE COMMENTS 09/07/17 04:15 Glucagon (Glucagon Inj) 1 mg UNSCH PRN OTHER HYPOGLYCEMIA-SEE COMMENTS 09/07/17 04:15 Insulin Aspart (NovoLOG SUPPLEMENTAL SCALE) 1 ACHS SLIDING SCALE SQ 09/07/17 08:00 EZETIMIBE (Zetia) 10 mg HS PO 09/07/17 21:00 09/08/17 23:10 Atorvastatin Calcium (Lipitor) 40 mg HS PO 09/07/17 21:00 09/08/17 23:10 Sodium Chloride 1,000 ml @ 0 mls/hr Q0M PRN OTHER For Prime & Rinse Back 09/07/17 09:42 Sodium Chloride 1,000 ml @ 200 mls/hr Q5H PRN IV WITH DIALYSIS 09/07/17 09:42 Sodium Chloride 1,000 ml @ 0 mls/hr Q0M PRN OTHER WITH DIALYSIS 09/07/17 09:42 Albumin Human 100 ml @ 60 mls/hr UNSCH PRN IV WITH DIALYSIS 09/07/17 09:45 09/08/17 15:57 Sodium Chloride (NS Flush) 5 ml UNSCH PRN IV FLUSH WITH DIALYSIS 09/07/17 09:45 Heparin Sodium (Porcine) (Heparin Inj) UNSCH PRN .XX WITH DIALYSIS 09/07/17 09:45 Gentamicin Sulfate (Gentamicin Inj) 20 mg UNSCH PRN OTHER WITH DIALYSIS 09/07/17 09:45 Ondansetron HCl (Zofran Inj) 4 mg UNSCH PRN IV PUSH WITH DIALYSIS 09/07/17 09:45 Acetaminophen (Tylenol) 650 mg UNSCH PRN PO for headach, pain, temp > 101F 09/07/17 09:45 Diphenhydramine HCl (Benadryl) 25 mg UNSCH PRN PO for hives/itching/anaphylaxis 09/07/17 09:45 Nitroglycerin (Nitrostat Sl) 0.4 mg UNSCH PRN SL CHEST PAIN 09/07/17 09:45 Clonidine (Catapres) 0.1 mg UNSCH PRN PO for BP > 180/100 X 2 readings 09/07/17 09:45 Epoetin Dio (Epogen Inj) 8,000 units UNSCH PRN IV PUSH WITH DIALYSIS 09/07/17 09:45 Gelatin (Gelfoam 12 Mm/7 Mm Top) 1 foam UNSCH PRN TOP SEE LABEL COMMENTS 09/07/17 09:45 Acetaminophen/ Hydrocodone Bitart ([place] 5-325 Mg) 1 tab Q4H PRN PO PAIN SCALE 1 TO 4 09/07/17 20:15 09/08/17 12:10 Acetaminophen/ Hydrocodone Bitart ([place] 5-325 Mg) 2 tab Q4H PRN PO PAIN SCALE 5 TO 10 09/07/17 20:15 09/09/17 07:55 Piperacillin Sod/ Tazobactam Sod 50 ml @ 100 mls/hr Q8H IV 09/08/17 18:00 09/09/17 11:51 SOCIAL HISTORY: The patient is . No tobacco, no alcohol, no illicit drugs. Review of systems: Negative 10 point review except for pain in the left groin. Objective: Vital Signs Date Time Temp Pulse Resp B/P (MAP) Pulse Ox O2 Delivery O2 Flow Rate FiO2 09/09/17 15:18 56 20 124/52 (76) 93 09/09/17 10:50 99.3 57 12 121/58 (79) 96 Manual Cuff/Auscultation 09/09/17 07:40 100.4 73 18 114/50 (71) 92 09/09/17 05:03 99.7 59 18 114/56 (75) 91 09/08/17 21:13 98.6 86 18 102/51 (68) 96 Laboratory Tests Test 09/08/17 02:20 09/08/17 10:05 09/09/17 11:28 Hemoglobin 9.2 GM/DL 9.4 GM/DL 8.5 GM/DL Hematocrit 28.5 % 29.3 % 26.5 % White Blood Count 18.3 TH/MM3 23.3 TH/MM3 Red Blood Count 2.80 MIL/MM3 2.57 MIL/MM3 Mean Corpuscular Volume 104.3 FL 103.3 FL Mean Corpuscular Hemoglobin 33.5 PG 33.2 PG Mean Corpuscular Hemoglobin Concent 32.1 % 32.1 % Red Cell Distribution Width 19.7 % 19.5 % Platelet Count 289 TH/MM3 264 TH/MM3 Mean Platelet Volume 7.3 FL 7.6 FL Neutrophils (%) (Auto) 82.1 % 84.4 % Lymphocytes (%) (Auto) 5.6 % 5.3 % Monocytes (%) (Auto) 11.9 % 9.9 % Eosinophils (%) (Auto) 0.0 % 0.0 % Basophils (%) (Auto) 0.4 % 0.4 % Neutrophils # (Auto) 15.0 TH/MM3 19.7 TH/MM3 Lymphocytes # (Auto) 1.0 TH/MM3 1.2 TH/MM3 Monocytes # (Auto) 2.2 TH/MM3 2.3 TH/MM3 Eosinophils # (Auto) 0.0 TH/MM3 0.0 TH/MM3 Basophils # (Auto) 0.1 TH/MM3 0.1 TH/MM3 CBC Comment AUTO DIFF AUTO DIFF Differential Comment AUTO DIFF CONFIRMED AUTO DIFF CONFIRMED Laboratory Tests Test 09/08/17 10:05 09/09/17 11:28 Blood Urea Nitrogen 25 MG/DL 32 MG/DL Creatinine 4.79 MG/DL 4.74 MG/DL Random Glucose 114 MG/DL 180 MG/DL Calcium Level 9.5 MG/DL 9.6 MG/DL Sodium Level 136 MEQ/L 133 MEQ/L Potassium Level 4.6 MEQ/L 5.0 MEQ/L Chloride Level 97 MEQ/L 95 MEQ/L Carbon Dioxide Level 28.0 MEQ/L 26.9 MEQ/L Anion Gap 11 MEQ/L 11 MEQ/L Estimat Glomerular Filtration Rate 9 ML/MIN 9 ML/MIN Total Protein 6.5 GM/DL Albumin 3.0 GM/DL Phosphorus Level 4.6 MG/DL Magnesium Level 2.4 MG/DL Alkaline Phosphatase 269 U/L Aspartate Amino Transf (AST/SGOT) 283 U/L Alanine Aminotransferase (ALT/SGPT) 161 U/L Total Bilirubin 1.1 MG/DL Microbiology Date/Time Source Procedure Growth Status 09/07/17 13:30 Wound Groin Gram Stain - Final Complete 09/07/17 13:30 Wound Culture - Final Klebsiella Pneumoniae Complete Imaging: Lower Extremity CT 09/08/17 0000 Signed Impressions: Service Date/Time: August 02:33 - CONCLUSION: No fracture. Postsurgical changes. Marshall Watkins MD Abdomen/Pelvis CT [id number] Signed Impressions: Service Date/Time: Wednesday, September 06, 2017 20:55 - CONCLUSION: 1. Post surgical changes in the left groin with hematoma. 2. 1.2 cm noncalcified pulmonary nodule in the right lower lobe which is nonspecific. A nonemergent outpatient chest CT is recommended for further evaluation. 3. Cortical atrophy in both kidneys. Efrem Briceño MD Lower Extremity Ultrasound 09/06/17 0000 Signed Impressions: Service Date/Time: Wednesday, September 06, 2017 21:03 - CONCLUSION: Left groin hematoma. Efrem Briceño MD PHYSICAL EXAMINATION: GENERAL: Somnolent. Easily aroused. Alert upon arousal. HEENT: Extraocular movements grossly intact. Pupils reactive to light. No icterus. Oropharynx moist mucosa without lesions. NECK: Supple without adenopathy. LUNGS: Clear to auscultation. CARDIOVASCULAR: Regular S1 and S2. ABDOMEN: Bowel sounds present. Soft, no tenderness appreciated. EXTREMITIES: The left groin has ecchymosis. The ecchymosis extends also to the proximal thigh on the left side. Blanching erythema at the left thigh as well. There is edema of the left lower extremity up to the thigh. There are 2 incisions in the left lower extremity from prior surgical procedure, which appear intact. The left great toe has dry necrotic eschar at the tip encompassing the entire frontal part of the tuft. SKIN: No diffuse rash. NEUROLOGIC: No gross focal finding. PSYCHIATRIC: The patient is calm and cooperative. IMPRESSION: 1. Infected left groin hematoma due to Klebsiella. 2. Cellulitis of the left groin as well. 3. Leukocytosis secondary to infection. 4. End-stage kidney disease on hemodialysis. RECOMMENDATIONS: 1. Continue piperacillin/tazobactam. 2. Monitor clinical response. Because of the recent femoral bypass surgery I would the patient on IV antibiotics for treatment. She may require a 2 week course of IV antibiotic. After that she may require continued antibiotics Oral since she has headache graft material in the groin. Bernardo Corrales MD Sep 09, 2017 18:26
[2017-09-09 20:00] VITALS: BP 101/51; PULSE 55; RESP 19; TEMP 98.9; O2SAT 94
[2017-09-09] MEDS: EZETIMIBE 10 MG TAB PO SCH (22:10)
[2017-09-09] MEDS: ATORVASTATIN 40 MG TAB PO SCH (22:11)
[2017-09-10] VITALS: BP 132/60; PULSE 55; RESP 19; TEMP 98; O2SAT 93
[2017-09-10] MEDS: PIPERACIL-TAZO 2.25 GM PREMIX 50 ML IV SCH ×3 (03:22→18:08)
[2017-09-10 04:00] VITALS: BP 116/56; PULSE 50; RESP 19; TEMP 97.9; O2SAT 95
[2017-09-10] MEDS: ACETAMINOPHEN/HYDROcodone 325 MG/5 MG TAB PO PRN ×4 (04:14→18:06)
[2017-09-10] MEDS: LEVOTHYROXINE SODIUM 125 MCG TAB PO SCH (05:49)
[2017-09-10 07:30] LABS: BASOPHIL # 0.1 TH/MM3 (0-0.2); BASOPHIL % 0.4 % (0.0-2.0); EOSINOPHIL % 0.1 % (0.0-4.0); HEMATOCRIT 26.4 % (35.0-46.0); HEMOGLOBIN 8.5 GM/DL (11.6-15.3); LYMPH % 6.2 % (9.0-44.0); LYMPHOCYTE # 1.3 TH/MM3 (1.0-4.8); MEAN CELL VOLUME 103.3 FL (80.0-100.0); MEAN CORPUSCULAR HEMOGLOBIN 33.3 PG (27.0-34.0); MEAN CORPUSCULAR HGB CONC 32.2 % (32.0-36.0); MEAN PLATELET VOLUME 7.8 FL (7.0-11.0); MONO % 7.7 % (0.0-8.0); MONOCYTE # 1.6 TH/MM3 (0-0.9); NEUT % 85.6 % (16.0-70.0); PLATELET COUNT 265 TH/MM3 (150-450); RED BLOOD COUNT 2.56 MIL/MM3 (4.00-5.30); RED CELL DISTRIBUTION WIDTH 18.4 % (11.6-17.2); WHITE BLOOD COUNT 21.1 TH/MM3 (4.0-11.0)
[2017-09-10 07:50] LABS: ALBUMIN 2.7 GM/DL (3.4-5.0); ALKALINE PHOSPHATASE 276 U/L (45-117); ALT (GPT) 332 U/L (10-53); AST (GOT) 405 U/L (15-37); BICARBONATE 26.8 MEQ/L (21.0-32.0); BLOOD UREA NITROGEN 49 MG/DL (7-18); CALCIUM 9.9 MG/DL (8.5-10.1); CHLORIDE 90 MEQ/L (98-107); CREATININE 5.73 MG/DL (0.50-1.00); GLOMERULAR FILTRATION RATE 7 ML/MIN (>89); GLUCOSE,RANDOM 238 MG/DL (74-106); SODIUM (NA) 131 MEQ/L (136-145); TOTAL BILIRUBIN ADULT 0.9 MG/DL (0.2-1.0); TOTAL PROTEIN 6.4 GM/DL (6.4-8.2)
[2017-09-10 08:23] VITALS: BP 134/60; PULSE 51; RESP 18; TEMP 97.6; O2SAT 97
--- NOTE | 2017-09-10 08:34 | PQ ---
Physician Query Response Document PATIENT: BARRY BARRON : 1945 ADMIT DATE: 09/07/2017 2:23 PM DISCH DATE: RESPONDING PROVIDER #: [email or web address] QUERY TEXT: CDS Clarification Postprocedural hematoma of skin and subcutaneous tissue following fem-pop bypass, being treated with antibiotics Other explanation of clinical findings. Unable to determine (no explanation for clinical findings). Please clarify and document your clinical opinion in the progress notes and discharge summary includi ng the definitive and/or presumptive diagnosis (suspected or probable), related to the above clinical findings. Please include clinical findings supporting your diagnosis. Thank you, Marcia Mcleod CDS: Marcia Mcleod Patient Unit: [id number] Contact Number: CDS/RN Room: [facility] The patient's Clinical Indicators include: * Clinical Indicators: A 2 x 4 cm hematoma, left femoral exposure incision with surrounding celluliti s. * Risk Factors: left femoral-popliteal bypass and femoral endarterectomy on 08/30/17 * Treatment: both incisional dressings changed, IV vancomycin and oral Levaquin initiated Query created by: Marcia Mcleod on 09/08/2017 11:40 AM RESPONSE TEXT: Post procedural hematoma of skin and subcutaneous tissue following fem-pop bypass, being treated with antibiotics Electronically signed by: Aj Anderson MD 09/10/2017 8:31 AM
[2017-09-10] MEDS: CARVEDILOL 6.25 MG TAB PO SCH ×2 (09:00→20:28)
[2017-09-10] MEDS: INSULIN ASPART SUPPLEMENTAL SCALE SQ SCH ×4 (09:15→20:47)
[2017-09-10] MEDS: DOCUSATE SODIUM 50 MG/SENNA 8.6 MG TAB PO SCH ×2 (09:16→20:28)
[2017-09-10] MEDS: GABAPENTIN 100 MG CAP PO SCH ×3 (09:18→18:06)
[2017-09-10] MEDS: CINACALCET HYDROCHLORIDE 30 MG TAB PO SCH (09:18)
[2017-09-10] MEDS: CLOPIDOGREL 75 MG TAB PO SCH (09:18)
[2017-09-10] MEDS: SODIUM CHLORIDE 0.9% FLUSH 10 ML FLUSH IV FLUSH SCH ×2 (09:19→20:28)
--- NOTE | 2017-09-10 11:40 | HHI.PR ---
Subjective Remarks Follow-up infected left groin hematoma/left lower extremity cellulitis September 10, 2017-patient seen and examined, currently afebrile. No acute event overnight. Denies any chest pain or shortness of breath. Pain to left lower extremity well controlled. Objective Vitals Vital Signs Date Time Temp Pulse Resp B/P (MAP) Pulse Ox O2 Delivery O2 Flow Rate FiO2 09/10/17 08:23 97.6 51 18 134/60 (84) 97 09/10/17 04:00 97.9 50 19 116/56 (76) 95 09/10/17 00:00 98.0 55 19 132/60 (84) 93 09/09/17 20:00 98.9 55 19 101/51 (68) 94 09/09/17 15:18 56 20 124/52 (76) 93 I/O 09/09/17 09/09/17 09/09/17 09/10/17 09/10/17 09/10/17 07:00 15:00 23:00 07:00 15:00 23:00 Intake Total 250 ml Balance 250 ml IV Total 250 ml # Voids 0 0 # Bowel Movements 0 0 Result Diagram: 09/10/17 0612 09/10/17 0612 Imaging Last Impressions Lower Extremity CT 09/08/17 0000 Signed Impressions: Service Date/Time: August 02:33 - CONCLUSION: No fracture. Postsurgical changes. Marshall Watkins MD Abdomen/Pelvis CT [id number] Signed Impressions: Service Date/Time: Wednesday, September 06, 2017 20:55 - CONCLUSION: 1. Post surgical changes in the left groin with hematoma. 2. 1.2 cm noncalcified pulmonary nodule in the right lower lobe which is nonspecific. A nonemergent outpatient chest CT is recommended for further evaluation. 3. Cortical atrophy in both kidneys. Efrem Briceño MD Lower Extremity Ultrasound 09/06/17 0000 Signed Impressions: Service Date/Time: Wednesday, September 06, 2017 21:03 - CONCLUSION: Left groin hematoma. Efrem Briceño MD Objective Remarks GENERAL: NAD SKIN: Warm and dry.dressing over LLE incision HEAD: Normocephalic. EYES: No scleral icterus. No injection or drainage. NECK: Supple, trachea midline. No JVD or lymphadenopathy. CARDIOVASCULAR: Regular rate and rhythm without murmurs, gallops, or rubs. RESPIRATORY: Breath sounds equal bilaterally. No accessory muscle use. GASTROINTESTINAL: Abdomen soft, non-tender, nondistended. MUSCULOSKELETAL: No cyanosis, or edema. BACK: Nontender without obvious deformity. No CVA tenderness. Procedures None A/P Problem List: (1) Hematoma of groin ICD Code: S30.1XXA - Contusion of abdominal wall, initial encounter Status: Acute (2) Diabetes mellitus ICD Code: E11.9 - Type 2 diabetes mellitus without complications Status: Chronic (3) ESRD (end stage renal disease) on dialysis ICD Code: N18.6 - End stage renal disease; Z99.2 - Dependence on renal dialysis Status: Chronic (4) Anemia of renal disease ICD Code: D63.1 - Anemia in chronic kidney disease Status: Chronic (5) Sepsis affecting skin ICD Code: A41.9 - Sepsis, unspecified organism Status: Acute (6) Hypoglycemia associated with type 2 diabetes mellitus ICD Code: E11.649 - Type 2 diabetes mellitus with hypoglycemia without coma Status: Resolved Assessment and Plan 72-year-old female with 1. Infected left groin hematoma due to Klebsiella. Cellulitis of the left groin as well. Leukocytosis secondary to infection. Sepsis Currently on vancomycin per infectious disease specialist 2. Left femoral popliteal bypass Appreciate input from Vascular surgery 3.CAD/HTN/Hyperlipidemia Continue with outpatient medications 4. End-stage kidney disease on hemodialysis. HD per Nephrology Continue with electrolyte supplement Problem Qualifiers (1) Hematoma of groin: Qualified Codes: S30.1XXA - Contusion of abdominal wall, initial encounter (2) Diabetes mellitus: Marshall Glover MD Sep 10, 2017 11:40
[2017-09-10 12:00] VITALS: BP 117/51; PULSE 56; RESP 18; TEMP 97.9; O2SAT 97
--- NOTE | 2017-09-10 15:15 | HHI.NPPN ---
Subjective History of Present Illness This patient is a 72-year-old female with a history of multiple medical problems including diabetes mellitus, hypertension, end-stage renal disease, anemia renal disease and peripheral vascular disease now recently status post left femoropopliteal bypass after developing subacute occlusion. Ration now presented with pain and noted to have evidence of a hematoma complicating the femoropopliteal bypass. Interval History Patient was seen during dialysis today. Tolerating treatment well and access is working well. Review of Systems General Constitutional: Fatigue Objective Data Data 09/10/17 09/11/17 19:00 07:00 Intake Total 50 ml Balance 50 ml IV Total 50 ml Vital Signs Date Time Temp Pulse Resp B/P (MAP) Pulse Ox O2 Delivery O2 Flow Rate FiO2 09/10/17 12:00 97.9 56 18 117/51 (73) 97 09/10/17 08:23 97.6 51 18 134/60 (84) 97 09/10/17 04:00 97.9 50 19 116/56 (76) 95 09/10/17 00:00 98.0 55 19 132/60 (84) 93 09/09/17 20:00 98.9 55 19 101/51 (68) 94 09/09/17 15:18 56 20 124/52 (76) 93 -: 09/10/17 0612 09/10/17 0612 Physical Exam General Appearance: Well Nourished, No Acute Distress, Comfortable Pulmonary Resp Exam: Clear Bilaterally, Breath Sounds Equal Cardiology CV Exam: Regular, Normal Sinus Rhythm Gastrointestinal/Abdomen GI Exam: Soft, Non-Tender Integumentary Skin Exam: Clear, Warm, Normal Turgor Extremeties Extremities Exam: Moderate Edema (lower legs and feet. 1+ pitting edema lower thighs.) Neurologic Neuro Exam: Alert, Awake Psychiatric Psych Exam: Appropriate Responses Assessment/Plan Discussed Condition With: Patient Problem List: (1) ESRD (end stage renal disease) on dialysis ICD Codes: N18.6 - End stage renal disease; Z99.2 - Dependence on renal dialysis Status: Chronic Plan: Patient refused hemodialysis yesterday. Treatment being performed today. Tolerating well. We will try to ultrafiltrate about 2.5 L today to try and improve her volume status. Resume Tuesday schedule next week. (2) Edema of both legs ICD Codes: R60.0 - Localized edema Plan: As above. (3) Anemia of renal disease ICD Codes: D63.1 - Anemia in chronic kidney disease Status: Chronic Plan: Epogen for anemia renal disease as ordered. (4) Secondary hyperparathyroidism of renal origin ICD Codes: N25.81 - Secondary hyperparathyroidism of renal origin Plan: Continue Sensipar for secondary hyperparathyroidism of renal disease. (5) Hematoma of groin ICD Codes: S30.1XXA - Contusion of abdominal wall, initial encounter Status: Acute Plan: With probable superimposed cellulitis. ID on case. Now on Zosyn (6) Diabetes mellitus ICD Codes: E11.9 - Type 2 diabetes mellitus without complications Status: Chronic (7) Transaminitis ICD Codes: R74.0 - Nonspecific elevation of levels of transaminase and lactic acid dehydrogenase [LDH] Status: Acute Plan: LFTs continuing to rise. We will check with primary care physician regarding continuance of Lipitor. GI opinion? Problem Qualifiers (1) Hematoma of groin: Qualified Codes: S30.1XXA - Contusion of abdominal wall, initial encounter (2) Diabetes mellitus: Kimberly Sampson MD Sep 10, 2017 15:15
[2017-09-10] MEDS: ALBUMIN 25% INJ 100 ML IV PRN (15:35)
[2017-09-10] MEDS: EPOETIN ALFA 10,000 UNITS/ML VIAL IV PUSH PRN (15:35)
[2017-09-10] MEDS: GELATIN 12 MM/7 MM FOAM TOP PRN (15:36)
[2017-09-10] MEDS: SODIUM CHLOR 0.9% 1000 ML INJ 1,000 ML OTHER PRN (15:36)
[2017-09-10 17:56] VITALS: BP 101/48; PULSE 52; RESP 18; TEMP 97.9; O2SAT 97
[2017-09-10] MEDS: EZETIMIBE 10 MG TAB PO SCH (20:28)
[2017-09-10 21:20] VITALS: BP 117/56; PULSE 60; RESP 18; TEMP 97.5; O2SAT 97
[2017-09-11 01:11] VITALS: BP 97/46; PULSE 49; RESP 18; TEMP 97.1; O2SAT 98
[2017-09-11] MEDS: PIPERACIL-TAZO 2.25 GM PREMIX 50 ML IV SCH ×3 (01:41→17:28)
[2017-09-11 05:08] VITALS: BP 112/50; PULSE 48; RESP 18; TEMP 97.2; O2SAT 98
[2017-09-11] MEDS: LEVOTHYROXINE SODIUM 125 MCG TAB PO SCH (05:20)
[2017-09-11] MEDS: ACETAMINOPHEN/HYDROcodone 325 MG/5 MG TAB PO PRN ×5 (05:25→22:46)
[2017-09-11 08:20] VITALS: BP 100/45; PULSE 50; RESP 18; TEMP 97.4; O2SAT 95
[2017-09-11 08:28] LABS: ALBUMIN 2.7 GM/DL (3.4-5.0); ALKALINE PHOSPHATASE 340 U/L (45-117); ALT (GPT) 237 U/L (10-53); AST (GOT) 132 U/L (15-37); BICARBONATE 27.9 MEQ/L (21.0-32.0); BLOOD UREA NITROGEN 40 MG/DL (7-18); CALCIUM 9.3 MG/DL (8.5-10.1); CHLORIDE 95 MEQ/L (98-107); CREATININE 4.37 MG/DL (0.50-1.00); GLOMERULAR FILTRATION RATE 10 ML/MIN (>89); GLUCOSE,RANDOM 184 MG/DL (74-106); SODIUM (NA) 133 MEQ/L (136-145); TOTAL BILIRUBIN ADULT 0.9 MG/DL (0.2-1.0); TOTAL PROTEIN 6.5 GM/DL (6.4-8.2)
[2017-09-11 08:52] LABS: AUTOMATED NEUTROPHIL # 14.3 TH/MM3 (1.8-7.7); BASOPHIL # 0.1 TH/MM3 (0-0.2); BASOPHIL % 0.5 % (0.0-2.0); EOSINOPHIL # 0.2 TH/MM3 (0-0.4); EOSINOPHIL % 1.2 % (0.0-4.0); HEMATOCRIT 27.2 % (35.0-46.0); HEMOGLOBIN 8.7 GM/DL (11.6-15.3); LYMPH % 5.6 % (9.0-44.0); MEAN CELL VOLUME 101.4 FL (80.0-100.0); MEAN CORPUSCULAR HEMOGLOBIN 32.5 PG (27.0-34.0); MEAN CORPUSCULAR HGB CONC 32.1 % (32.0-36.0); MONO % 9.1 % (0.0-8.0); MONOCYTE # 1.5 TH/MM3 (0-0.9); NEUT % 83.6 % (16.0-70.0); PLATELET COUNT 285 TH/MM3 (150-450); RED BLOOD COUNT 2.68 MIL/MM3 (4.00-5.30); RED CELL DISTRIBUTION WIDTH 18.4 % (11.6-17.2); WHITE BLOOD COUNT 17.1 TH/MM3 (4.0-11.0)
[2017-09-11] MEDS: DOCUSATE SODIUM 50 MG/SENNA 8.6 MG TAB PO SCH ×2 (09:00→22:46)
[2017-09-11] MEDS: CARVEDILOL 6.25 MG TAB PO SCH ×2 (09:00→22:46)
[2017-09-11] MEDS: INSULIN ASPART SUPPLEMENTAL SCALE SQ SCH ×4 (09:05→22:58)
[2017-09-11] MEDS: SODIUM CHLORIDE 0.9% FLUSH 10 ML FLUSH IV FLUSH SCH ×2 (09:05→22:53)
[2017-09-11] MEDS: CINACALCET HYDROCHLORIDE 30 MG TAB PO SCH (09:09)
[2017-09-11] MEDS: GABAPENTIN 100 MG CAP PO SCH ×3 (09:09→17:27)
[2017-09-11] MEDS: CLOPIDOGREL 75 MG TAB PO SCH (09:09)
--- NOTE | 2017-09-11 10:42 | HHI.PR ---
Subjective Remarks Follow-up infected left groin hematoma/left lower extremity cellulitis September 10, 2017-patient seen and examined, currently afebrile. No acute event overnight. Denies any chest pain or shortness of breath. Pain to left lower extremity well controlled. September 11, 2017-patient seen and examined, denies any complaints, LFTs improving , no chest pain or shortness of breath. Afebrile. Objective Vitals Vital Signs Date Time Temp Pulse Resp B/P (MAP) Pulse Ox O2 Delivery O2 Flow Rate FiO2 09/11/17 08:20 97.4 50 18 100/45 (63) 95 09/11/17 05:08 97.2 48 18 112/50 (70) 98 09/11/17 01:11 97.1 49 18 97/46 (63) 98 09/10/17 21:20 97.5 60 18 117/56 (76) 97 09/10/17 17:56 97.9 52 18 101/48 (65) 97 09/10/17 12:00 97.9 56 18 117/51 (73) 97 I/O 09/10/17 09/10/17 09/10/17 09/11/17 09/11/17 09/11/17 06:59 14:59 22:59 06:59 14:59 22:59 Intake Total 530 ml 50 ml 50 ml Balance 530 ml 50 ml 50 ml Intake Oral 480 ml IV Total 50 ml 50 ml 50 ml # Voids 0 0 # Bowel Movements 0 1 Result Diagram: 09/11/17 0637 09/11/17 0637 Objective Remarks GENERAL: NAD SKIN: Warm and dry.dressing over LLE incision HEAD: Normocephalic. EYES: No scleral icterus. No injection or drainage. NECK: Supple, trachea midline. No JVD or lymphadenopathy. CARDIOVASCULAR: Regular rate and rhythm without murmurs, gallops, or rubs. RESPIRATORY: Breath sounds equal bilaterally. No accessory muscle use. GASTROINTESTINAL: Abdomen soft, non-tender, nondistended. MUSCULOSKELETAL: No cyanosis, or edema. BACK: Nontender without obvious deformity. No CVA tenderness. Procedures None A/P Problem List: (1) Hematoma of groin ICD Code: S30.1XXA - Contusion of abdominal wall, initial encounter Status: Acute (2) Diabetes mellitus ICD Code: E11.9 - Type 2 diabetes mellitus without complications Status: Chronic (3) ESRD (end stage renal disease) on dialysis ICD Code: N18.6 - End stage renal disease; Z99.2 - Dependence on renal dialysis Status: Chronic (4) Anemia of renal disease ICD Code: D63.1 - Anemia in chronic kidney disease Status: Chronic (5) Sepsis affecting skin ICD Code: A41.9 - Sepsis, unspecified organism Status: Acute (6) Hypoglycemia associated with type 2 diabetes mellitus ICD Code: E11.649 - Type 2 diabetes mellitus with hypoglycemia without coma Status: Resolved Assessment and Plan 72-year-old female with 1. Infected left groin hematoma due to Klebsiella. Cellulitis of the left groin as well. Leukocytosis secondary to infection. Sepsis Currently on Zosyn per infectious disease specialist 2. Left femoral popliteal bypass Appreciate input from Vascular surgery 3.CAD/HTN/Hyperlipidemia Continue with outpatient medications 4. End-stage kidney disease on hemodialysis. HD per Nephrology Continue with electrolyte supplement 5. Transaminitis On admission LFTs within normal limits however now elevated LFTs likely secondary to medication side effect as patient currently on Zosyn Continue to hold statin and monitor LFTs Consider hepatitis profile Problem Qualifiers (1) Hematoma of groin: Qualified Codes: S30.1XXA - Contusion of abdominal wall, initial encounter (2) Diabetes mellitus: Marshall Glover MD Sep 11, 2017 10:42
[2017-09-11 12:00] VITALS: BP 107/49; PULSE 51; RESP 18; TEMP 97.5; O2SAT 95
[2017-09-11 16:38] VITALS: BP 114/51; PULSE 51; RESP 18; TEMP 97.9; O2SAT 95
[2017-09-11 21:10] VITALS: BP 112/50; PULSE 51; RESP 18; TEMP 97.8; O2SAT 95
[2017-09-11] MEDS: EZETIMIBE 10 MG TAB PO SCH (22:46)
[2017-09-12] VITALS: BP 116/49; PULSE 52; RESP 18; TEMP 98.7; O2SAT 95
[2017-09-12] MEDS: PIPERACIL-TAZO 2.25 GM PREMIX 50 ML IV SCH ×3 (01:22→17:38)
[2017-09-12 05:35] VITALS: BP 135/58; PULSE 60; RESP 18; TEMP 97.8; O2SAT 97
[2017-09-12] MEDS: LEVOTHYROXINE SODIUM 125 MCG TAB PO SCH (06:16)
[2017-09-12] MEDS: ACETAMINOPHEN/HYDROcodone 325 MG/5 MG TAB PO PRN ×2 (06:21→17:38)
[2017-09-12 08:00] VITALS: BP 109/49; PULSE 50; RESP 18; TEMP 98; O2SAT 97
[2017-09-12] MEDS: DOCUSATE SODIUM 50 MG/SENNA 8.6 MG TAB PO SCH ×2 (08:32→22:58)
[2017-09-12] MEDS: CARVEDILOL 6.25 MG TAB PO SCH ×2 (08:32→22:58)
[2017-09-12] MEDS: CLOPIDOGREL 75 MG TAB PO SCH (08:32)
[2017-09-12] MEDS: GABAPENTIN 100 MG CAP PO SCH ×3 (08:32→17:39)
[2017-09-12] MEDS: CINACALCET HYDROCHLORIDE 30 MG TAB PO SCH (08:32)
[2017-09-12] MEDS: SODIUM CHLORIDE 0.9% FLUSH 10 ML FLUSH IV FLUSH SCH ×2 (08:32→21:00)
[2017-09-12] MEDS: INSULIN ASPART SUPPLEMENTAL SCALE SQ SCH ×4 (08:33→22:58)
[2017-09-12 10:29] LABS: BASOPHIL # 0.1 TH/MM3 (0-0.2); BASOPHIL % 0.6 % (0.0-2.0); EOSINOPHIL # 0.2 TH/MM3 (0-0.4); EOSINOPHIL % 1.7 % (0.0-4.0); HEMATOCRIT 27.8 % (35.0-46.0); HEMOGLOBIN 9.1 GM/DL (11.6-15.3); LYMPH % 7.4 % (9.0-44.0); LYMPHOCYTE # 1.1 TH/MM3 (1.0-4.8); MEAN CELL VOLUME 102.6 FL (80.0-100.0); MEAN CORPUSCULAR HEMOGLOBIN 33.7 PG (27.0-34.0); MEAN CORPUSCULAR HGB CONC 32.9 % (32.0-36.0); MEAN PLATELET VOLUME 7.8 FL (7.0-11.0); MONO % 8.9 % (0.0-8.0); MONOCYTE # 1.3 TH/MM3 (0-0.9); NEUT % 81.4 % (16.0-70.0); PLATELET COUNT 300 TH/MM3 (150-450); RED BLOOD COUNT 2.71 MIL/MM3 (4.00-5.30); RED CELL DISTRIBUTION WIDTH 18.5 % (11.6-17.2); WHITE BLOOD COUNT 14.8 TH/MM3 (4.0-11.0)
--- NOTE | 2017-09-12 10:49 | HHI.PR ---
Subjective Remarks Follow-up infected left groin hematoma/left lower extremity cellulitis September 10, 2017-patient seen and examined, currently afebrile. No acute event overnight. Denies any chest pain or shortness of breath. Pain to left lower extremity well controlled. September 11, 2017-patient seen and examined, denies any complaints, LFTs improving , no chest pain or shortness of breath. Afebrile. September 12, 2017-patient seen and examined, no acute event overnight. doing well. CMP pending Objective Vitals Vital Signs Date Time Temp Pulse Resp B/P (MAP) Pulse Ox O2 Delivery O2 Flow Rate FiO2 09/12/17 08:00 98.0 50 18 109/49 (69) 97 09/12/17 05:35 97.8 60 18 135/58 (83) 97 09/12/17 00:00 98.7 52 18 116/49 (71) 95 09/11/17 21:10 97.8 51 18 112/50 (70) 95 09/11/17 16:38 97.9 51 18 114/51 (72) 95 09/11/17 12:00 97.5 51 18 107/49 (68) 95 I/O 09/11/17 09/11/17 09/11/17 09/12/17 09/12/17 09/12/17 07:00 15:00 23:00 07:00 15:00 23:00 Intake Total 530 ml 50 ml Balance 530 ml 50 ml Intake Oral 480 ml IV Total 50 ml 50 ml # Voids 0 # Bowel Movements 1 1 Result Diagram: 09/12/17 0939 09/11/17 0637 Objective Remarks GENERAL: NAD SKIN: Warm and dry.dressing over LLE incision HEAD: Normocephalic. EYES: No scleral icterus. No injection or drainage. NECK: Supple, trachea midline. No JVD or lymphadenopathy. CARDIOVASCULAR: Regular rate and rhythm without murmurs, gallops, or rubs. RESPIRATORY: Breath sounds equal bilaterally. No accessory muscle use. GASTROINTESTINAL: Abdomen soft, non-tender, nondistended. MUSCULOSKELETAL: No cyanosis, or edema. BACK: Nontender without obvious deformity. No CVA tenderness. Procedures None A/P Problem List: (1) Hematoma of groin ICD Code: S30.1XXA - Contusion of abdominal wall, initial encounter Status: Acute (2) Diabetes mellitus ICD Code: E11.9 - Type 2 diabetes mellitus without complications Status: Chronic (3) ESRD (end stage renal disease) on dialysis ICD Code: N18.6 - End stage renal disease; Z99.2 - Dependence on renal dialysis Status: Chronic (4) Anemia of renal disease ICD Code: D63.1 - Anemia in chronic kidney disease Status: Chronic (5) Sepsis affecting skin ICD Code: A41.9 - Sepsis, unspecified organism Status: Acute (6) Hypoglycemia associated with type 2 diabetes mellitus ICD Code: E11.649 - Type 2 diabetes mellitus with hypoglycemia without coma Status: Resolved Assessment and Plan 72-year-old female with 1. Infected left groin hematoma due to Klebsiella. Cellulitis of the left groin as well. Leukocytosis secondary to infection-Trending down Sepsis Currently on Zosyn per infectious disease specialist 2. Left femoral popliteal bypass Appreciate input from Vascular surgery 3.CAD/HTN/Hyperlipidemia Continue with outpatient medications 4. End-stage kidney disease on hemodialysis. HD per Nephrology Continue with electrolyte supplement 5. Transaminitis On admission LFTs within normal limits however now elevated LFTs likely secondary to medication side effect as patient currently on Zosyn Continue to hold statin and monitor LFTs Problem Qualifiers (1) Hematoma of groin: Qualified Codes: S30.1XXA - Contusion of abdominal wall, initial encounter (2) Diabetes mellitus: Marshall Glover MD Sep 12, 2017 10:49
[2017-09-12 10:53] LABS: ALBUMIN 2.6 GM/DL (3.4-5.0); ALKALINE PHOSPHATASE 449 U/L (45-117); ALT (GPT) 197 U/L (10-53); AST (GOT) 84 U/L (15-37); BICARBONATE 28.2 MEQ/L (21.0-32.0); BLOOD UREA NITROGEN 65 MG/DL (7-18); CALCIUM 9.4 MG/DL (8.5-10.1); CHLORIDE 92 MEQ/L (98-107); CREATININE 5.68 MG/DL (0.50-1.00); GLOMERULAR FILTRATION RATE 7 ML/MIN (>89); GLUCOSE,RANDOM 204 MG/DL (74-106); SODIUM (NA) 131 MEQ/L (136-145); TOTAL BILIRUBIN ADULT 0.8 MG/DL (0.2-1.0); TOTAL PROTEIN 6.7 GM/DL (6.4-8.2)
--- NOTE | 2017-09-12 11:29 | HHI.NPPN ---
Subjective History of Present Illness This patient is a 72-year-old female with a history of multiple medical problems including diabetes mellitus, hypertension, end-stage renal disease, anemia renal disease and peripheral vascular disease now recently status post left femoropopliteal bypass after developing subacute occlusion. Ration now presented with pain and noted to have evidence of a hematoma complicating the femoropopliteal bypass. Interval History Patient with no verbal complaints today. Review of Systems General Constitutional: Fatigue Objective Data Data Vital Signs Date Time Temp Pulse Resp B/P (MAP) Pulse Ox O2 Delivery O2 Flow Rate FiO2 09/12/17 08:00 98.0 50 18 109/49 (69) 97 09/12/17 05:35 97.8 60 18 135/58 (83) 97 09/12/17 00:00 98.7 52 18 116/49 (71) 95 09/11/17 21:10 97.8 51 18 112/50 (70) 95 09/11/17 16:38 97.9 51 18 114/51 (72) 95 09/11/17 12:00 97.5 51 18 107/49 (68) 95 -: 09/12/17 0939 09/12/17 0939 Physical Exam General Appearance: Well Nourished, No Acute Distress, Comfortable Pulmonary Resp Exam: Clear Bilaterally, Breath Sounds Equal Cardiology CV Exam: Regular, Normal Sinus Rhythm Gastrointestinal/Abdomen GI Exam: Soft, Non-Tender Integumentary Skin Exam: Clear, Warm, Normal Turgor Extremeties Extremities Exam: Moderate Edema (lower legs and feet. 1+ pitting edema lower thighs.) Neurologic Neuro Exam: Alert, Awake Psychiatric Psych Exam: Appropriate Responses Assessment/Plan Discussed Condition With: Patient Problem List: (1) ESRD (end stage renal disease) on dialysis ICD Codes: N18.6 - End stage renal disease; Z99.2 - Dependence on renal dialysis Status: Chronic Plan: Plan for hemodialysis today to resume her Tuesday schedule. Discussed with patient. Discharge planning per vascular surgery and primary care physician. (2) Edema of both legs ICD Codes: R60.0 - Localized edema Plan: As above. (3) Anemia of renal disease ICD Codes: D63.1 - Anemia in chronic kidney disease Status: Chronic Plan: Epogen for anemia renal disease as ordered. (4) Secondary hyperparathyroidism of renal origin ICD Codes: N25.81 - Secondary hyperparathyroidism of renal origin Plan: Continue Sensipar for secondary hyperparathyroidism of renal disease. (5) Hematoma of groin ICD Codes: S30.1XXA - Contusion of abdominal wall, initial encounter Status: Acute Plan: With probable superimposed cellulitis. ID on case. Now on Zosyn (6) Diabetes mellitus ICD Codes: E11.9 - Type 2 diabetes mellitus without complications Status: Chronic (7) Transaminitis ICD Codes: R74.0 - Nonspecific elevation of levels of transaminase and lactic acid dehydrogenase [LDH] Status: Acute Plan: LFTs continuing to rise. We will check with primary care physician regarding continuance of Lipitor. GI opinion? Problem Qualifiers (1) Hematoma of groin: Qualified Codes: S30.1XXA - Contusion of abdominal wall, initial encounter (2) Diabetes mellitus: Kimberly Sampson MD Sep 12, 2017 11:29
[2017-09-12 11:31] LABS: BANDS 2 % (0-6); BASOPHILS 2 % (0-2); CORRECTED NUCLEATED RBC 1 /100 WBC (0-0); LYMPHOCYTES 10 % (9-44); MONOCYTES 9 % (0-8); NEUTROPHIL # MANUAL DIFF 11.4 TH/MM3 (1.8-7.7); NUCLEATED RED BLOOD CELL 1 (0-0); POLYS (SEG NEUTROPHILS) 75 % (16-70)
[2017-09-12 12:00] VITALS: BP 119/57; PULSE 62; RESP 18; TEMP 97.8; O2SAT 97
--- NOTE | 2017-09-12 12:19 | HHI.IDPN ---
Note Infectious Disease Note Patient notes that she has mild pain in the left groin. Afebrile Denies chills. White blood cell count is decreasing. Some serous drainage coming from the left groin where there is a small opening At the groove underneath the abdominal fold. Patient is status post left femoral popliteal bypass for limb-threatening ischemia on 08/30/2017. Started developing severe pain in the left groin on 09/06 and she was brought to the emergency department for evaluation. She was noted to have an area of ecchymosis at the groin and the proximal thigh on the left side. PAST MEDICAL HISTORY: Diabetes mellitus, peripheral vascular disease, hypertension, hyperlipidemia, coronary artery disease, end-stage kidney disease treated with hemodialysis. PAST SURGICAL HISTORY: Appendectomy, cholecystectomy, history of coronary artery bypass graft surgery x2, history of left second toe amputation. ALLERGIES: AMLODIPINE, BUMETANIDE MEDICATIONS: Current Medications Medications (Trade) Dose Ordered Sig/Julius Route PRN Reason Start Time Stop Time Status Last Admin Dose Admin Sodium Chloride (NS Flush) 2 ml UNSCH PRN IV FLUSH FLUSH AFTER USING IV ACCESS 09/07/17 01:30 Sodium Chloride (NS Flush) 2 ml BID IV FLUSH 09/07/17 09:00 09/12/17 08:32 Acetaminophen (Tylenol) 650 mg Q4H PRN PO TEMP > 100.4 09/07/17 01:30 Ondansetron HCl (Zofran Inj) 4 mg Q6H PRN IVP NAUSEA OR VOMITING 09/07/17 01:30 Naloxone HCl (Narcan Inj) 0.4 mg UNSCH PRN IV PUSH SEE LABEL COMMENTS 09/07/17 01:30 Senna/Docusate Sodium (Lucinda-Colace) 1 tab BID PO 09/07/17 09:00 09/12/17 08:32 Magnesium Hydroxide (Milk Of Magnesia Liq) 30 ml Q12H PRN PO Mild constipation 09/07/17 01:30 Sennosides (Senokot) 17.2 mg Q12H PRN PO Moderate constipation 09/07/17 01:30 Bisacodyl (Dulcolax Supp) 10 mg DAILY PRN RECTAL SEVERE CONSITIPATION 09/07/17 01:30 Lactulose (Lactulose Liq) 30 ml DAILY PRN PO SEVERE CONSITIPATION 09/07/17 01:30 Morphine Sulfate (Morphine Inj) 2 mg Q3H PRN IV PUSH BREAKTHROUGH PAIN 09/07/17 01:30 09/07/17 10:15 Carvedilol (Coreg) 6.25 mg BID PO 09/07/17 09:00 09/12/17 08:32 Cinacalcet (Sensipar) 30 mg DAILY PO 09/07/17 09:00 09/12/17 08:32 Clopidogrel Bisulfate (Plavix) 75 mg DAILY PO 09/07/17 09:00 09/12/17 08:32 Gabapentin (Neurontin) 100 mg TID PO 09/07/17 09:00 09/12/17 08:32 Levothyroxine Sodium (Synthroid) 125 mcg DAILY@0600 PO 09/07/17 06:00 09/12/17 06:16 Dextrose (D50w (Vial) Inj) 50 ml UNSCH PRN IV PUSH HYPOGLYCEMIA-SEE COMMENTS 09/07/17 04:15 Glucagon (Glucagon Inj) 1 mg UNSCH PRN OTHER HYPOGLYCEMIA-SEE COMMENTS 09/07/17 04:15 Insulin Aspart (NovoLOG SUPPLEMENTAL SCALE) 1 ACHS SLIDING SCALE SQ 09/07/17 08:00 09/12/17 08:33 EZETIMIBE (Zetia) 10 mg HS PO 09/07/17 21:00 09/11/17 22:46 Atorvastatin Calcium (Lipitor) 40 mg HS PO 09/07/17 21:00 Future Hold 09/09/17 22:11 Sodium Chloride 1,000 ml @ 0 mls/hr Q0M PRN OTHER For Prime & Rinse Back 09/07/17 09:42 09/10/17 15:36 Sodium Chloride 1,000 ml @ 200 mls/hr Q5H PRN IV WITH DIALYSIS 09/07/17 09:42 Sodium Chloride 1,000 ml @ 0 mls/hr Q0M PRN OTHER WITH DIALYSIS 09/07/17 09:42 Albumin Human 100 ml @ 60 mls/hr UNSCH PRN IV WITH DIALYSIS 09/07/17 09:45 09/10/17 15:35 Sodium Chloride (NS Flush) 5 ml UNSCH PRN IV FLUSH WITH DIALYSIS 09/07/17 09:45 Heparin Sodium (Porcine) (Heparin Inj) UNSCH PRN .XX WITH DIALYSIS 09/07/17 09:45 Gentamicin Sulfate (Gentamicin Inj) 20 mg UNSCH PRN OTHER WITH DIALYSIS 09/07/17 09:45 Ondansetron HCl (Zofran Inj) 4 mg UNSCH PRN IV PUSH WITH DIALYSIS 09/07/17 09:45 Acetaminophen (Tylenol) 650 mg UNSCH PRN PO for headach, pain, temp > 101F 09/07/17 09:45 Diphenhydramine HCl (Benadryl) 25 mg UNSCH PRN PO for hives/itching/anaphylaxis 09/07/17 09:45 Nitroglycerin (Nitrostat Sl) 0.4 mg UNSCH PRN SL CHEST PAIN 09/07/17 09:45 Clonidine (Catapres) 0.1 mg UNSCH PRN PO for BP > 180/100 X 2 readings 09/07/17 09:45 Epoetin Dio (Epogen Inj) 8,000 units UNSCH PRN IV PUSH WITH DIALYSIS 09/07/17 09:45 09/10/17 15:35 Gelatin (Gelfoam 12 Mm/7 Mm Top) 1 foam UNSCH PRN TOP SEE LABEL COMMENTS 09/07/17 09:45 09/10/17 15:36 Acetaminophen/ Hydrocodone Bitart ([place] 5-325 Mg) 1 tab Q4H PRN PO PAIN SCALE 1 TO 4 09/07/17 20:15 09/08/17 12:10 Acetaminophen/ Hydrocodone Bitart ([place] 5-325 Mg) 2 tab Q4H PRN PO PAIN SCALE 5 TO 10 09/07/17 20:15 09/12/17 06:21 Piperacillin Sod/ Tazobactam Sod 50 ml @ 100 mls/hr Q8H IV 09/08/17 18:00 09/12/17 09:52 SOCIAL HISTORY: The patient is . No tobacco, no alcohol, no illicit drugs. Review of systems: Negative 10 point review except for pain in the left groin. Objective: Vital Signs Date Time Temp Pulse Resp B/P (MAP) Pulse Ox O2 Delivery O2 Flow Rate FiO2 09/12/17 08:00 98.0 50 18 109/49 (69) 97 09/12/17 05:35 97.8 60 18 135/58 (83) 97 09/12/17 00:00 98.7 52 18 116/49 (71) 95 4/15/18 21:10 97.8 51 18 112/50 (70) 95 09/11/17 16:38 97.9 51 18 114/51 (72) 95 Laboratory Tests Test 09/11/17 06:37 09/12/17 09:39 White Blood Count 17.1 TH/MM3 14.8 TH/MM3 Red Blood Count 2.68 MIL/MM3 2.71 MIL/MM3 Hemoglobin 8.7 GM/DL 9.1 GM/DL Hematocrit 27.2 % 27.8 % Mean Corpuscular Volume 101.4 FL 102.6 FL Mean Corpuscular Hemoglobin 32.5 PG 33.7 PG Mean Corpuscular Hemoglobin Concent 32.1 % 32.9 % Red Cell Distribution Width 18.4 % 18.5 % Platelet Count 285 TH/MM3 300 TH/MM3 Mean Platelet Volume 8.0 FL 7.8 FL Neutrophils (%) (Auto) 83.6 % 81.4 % Lymphocytes (%) (Auto) 5.6 % 7.4 % Monocytes (%) (Auto) 9.1 % 8.9 % Eosinophils (%) (Auto) 1.2 % 1.7 % Basophils (%) (Auto) 0.5 % 0.6 % Neutrophils # (Auto) 14.3 TH/MM3 12.0 TH/MM3 Lymphocytes # (Auto) 1.0 TH/MM3 1.1 TH/MM3 Monocytes # (Auto) 1.5 TH/MM3 1.3 TH/MM3 Eosinophils # (Auto) 0.2 TH/MM3 0.2 TH/MM3 Basophils # (Auto) 0.1 TH/MM3 0.1 TH/MM3 CBC Comment DIFF FINAL AUTO DIFF Differential Comment FINAL DIFF MANUAL Hematology Comments Differential Total Cells Counted 100 Neutrophils % (Manual) 75 % Band Neutrophils % 2 % Lymphocytes % 10 % Monocytes % 9 % Eosinophils % 2 % Basophils % 2 % Neutrophils # (Manual) 11.4 TH/MM3 Nucleated Red Blood Cells 1 /100 WBC Platelet Estimate NORMAL Platelet Morphology Comment NORMAL Laboratory Tests Test 09/11/17 06:37 09/12/17 09:39 Blood Urea Nitrogen 40 MG/DL 65 MG/DL Creatinine 4.37 MG/DL 5.68 MG/DL Random Glucose 184 MG/DL 204 MG/DL Total Protein 6.5 GM/DL 6.7 GM/DL Albumin 2.7 GM/DL 2.6 GM/DL Calcium Level 9.3 MG/DL 9.4 MG/DL Alkaline Phosphatase 340 U/L 449 U/L Aspartate Amino Transf (AST/SGOT) 132 U/L 84 U/L Alanine Aminotransferase (ALT/SGPT) 237 U/L 197 U/L Total Bilirubin 0.9 MG/DL 0.8 MG/DL Sodium Level 133 MEQ/L 131 MEQ/L Potassium Level 4.3 MEQ/L 4.6 MEQ/L Chloride Level 95 MEQ/L 92 MEQ/L Carbon Dioxide Level 27.9 MEQ/L 28.2 MEQ/L Anion Gap 10 MEQ/L 11 MEQ/L Estimat Glomerular Filtration Rate 10 ML/MIN 7 ML/MIN Imaging: Lower Extremity CT 09/08/17 0000 Signed Impressions: Service Date/Time: August 02:33 - CONCLUSION: No fracture. Postsurgical changes. Marshall Watkins MD Abdomen/Pelvis CT [id number] Signed Impressions: Service Date/Time: Wednesday, September 06, 2017 20:55 - CONCLUSION: 1. Post surgical changes in the left groin with hematoma. 2. 1.2 cm noncalcified pulmonary nodule in the right lower lobe which is nonspecific. A nonemergent outpatient chest CT is recommended for further evaluation. 3. Cortical atrophy in both kidneys. Efrem Briceño MD Lower Extremity Ultrasound 09/06/17 Signed Impressions: Service Date/Time: Wednesday, September 06, 2017 21:03 - CONCLUSION: Left groin hematoma. Efrem Briceño MD PHYSICAL EXAMINATION: GENERAL: Alert and oriented. No acute distress. HEENT: Extraocular movements grossly intact. Pupils reactive to light. No icterus. Oropharynx moist mucosa without lesions. NECK: Supple without adenopathy. LUNGS: Clear to auscultation. CARDIOVASCULAR: Regular S1 and S2. ABDOMEN: Bowel sounds present. Soft, no tenderness appreciated. EXTREMITIES: The left thigh has ecchymosis and also the left groin. Blanching erythema at the left thigh Laterally and also at the in the posterior aspect. Serous drainage coming via a small opening at the group of the groin. SKIN: No diffuse rash. NEUROLOGIC: No gross focal finding. PSYCHIATRIC: The patient is calm and cooperative. IMPRESSION: 1. Infected left groin hematoma due to Klebsiella. Post fem pop bypass with graft. 2. Cellulitis of the left groin. 3. Leukocytosis secondary to infection. 4. End-stage kidney disease on hemodialysis. RECOMMENDATIONS: 1. Continue piperacillin/tazobactam. 2. Monitor clinical response. Further antibiotic determination depending on her clinical response. Bernardo Corrales MD Sep 12, 2017 12:19
[2017-09-12 16:00] VITALS: BP 118/60; PULSE 65; RESP 18; TEMP 97.8; O2SAT 99
[2017-09-12 20:00] VITALS: BP 110/47; PULSE 57; RESP 18; TEMP 97.7; O2SAT 94
[2017-09-12] MEDS: EZETIMIBE 10 MG TAB PO SCH (22:57)
[2017-09-13] VITALS: BP 130/56; PULSE 53; RESP 18; TEMP 97.7; O2SAT 94
[2017-09-13] MEDS: PIPERACIL-TAZO 2.25 GM PREMIX 50 ML IV SCH ×3 (02:57→17:45)
[2017-09-13 04:00] VITALS: BP 128/60; PULSE 55; RESP 18; TEMP 97.9; O2SAT 94
[2017-09-13] MEDS: LEVOTHYROXINE SODIUM 125 MCG TAB PO SCH (05:56)
[2017-09-13 08:00] VITALS: BP 106/46; PULSE 55; RESP 16; TEMP 97.7; O2SAT 95
[2017-09-13] MEDS: GABAPENTIN 100 MG CAP PO SCH ×3 (08:16→17:44)
[2017-09-13] MEDS: CLOPIDOGREL 75 MG TAB PO SCH (08:16)
[2017-09-13] MEDS: DOCUSATE SODIUM 50 MG/SENNA 8.6 MG TAB PO SCH ×2 (08:16→23:30)
[2017-09-13] MEDS: CARVEDILOL 6.25 MG TAB PO SCH ×2 (08:16→23:30)
[2017-09-13] MEDS: CINACALCET HYDROCHLORIDE 30 MG TAB PO SCH (08:16)
[2017-09-13] MEDS: INSULIN ASPART SUPPLEMENTAL SCALE SQ SCH ×4 (09:15→21:00)
[2017-09-13] MEDS: SODIUM CHLORIDE 0.9% FLUSH 10 ML FLUSH IV FLUSH SCH ×2 (09:15→23:31)
[2017-09-13] MEDS: ACETAMINOPHEN/HYDROcodone 325 MG/5 MG TAB PO PRN (10:08)
--- NOTE | 2017-09-13 11:08 | HHI.PR ---
Subjective Remarks Follow-up infected left groin hematoma/left lower extremity cellulitis September 10, 2017-patient seen and examined, currently afebrile. No acute event overnight. Denies any chest pain or shortness of breath. Pain to left lower extremity well controlled. September 11, 2017-patient seen and examined, denies any complaints, LFTs improving , no chest pain or shortness of breath. Afebrile. September 12, 2017-patient seen and examined, no acute event overnight. doing well. CMP pending September 13, 2017-patient seen and examined, afebrile, still with significant drainage from left hematoma; Still with some confusion otherwise stable Objective Vitals Vital Signs Date Time Temp Pulse Resp B/P (MAP) Pulse Ox O2 Delivery O2 Flow Rate FiO2 09/13/17 08:00 97.7 55 16 106/46 (66) 95 09/13/17 04:00 97.9 55 18 128/60 (82) 94 09/13/17 00:00 97.7 53 18 130/56 (80) 94 09/12/17 20:00 97.7 57 18 110/47 (68) 94 09/12/17 16:00 97.8 65 18 118/60 (79) 99 09/12/17 12:00 97.8 62 18 119/57 (77) 97 I/O 09/12/17 09/12/17 09/12/17 09/13/17 09/13/17 09/13/17 07:00 15:00 23:00 07:00 15:00 23:00 Output Total 3000 ml Balance -3000 ml Output Hemodialysis 3000 ml # Bowel Movements 1 Result Diagram: 09/12/17 0939 09/12/17 0939 Imaging Last Impressions Lower Extremity CT 09/08/17 0000 Signed Impressions: Service Date/Time: August 02:33 - CONCLUSION: No fracture. Postsurgical changes. Marshall Watkins MD Abdomen/Pelvis CT [id number] Signed Impressions: Service Date/Time: Wednesday, September 06, 2017 20:55 - CONCLUSION: 1. Post surgical changes in the left groin with hematoma. 2. 1.2 cm noncalcified pulmonary nodule in the right lower lobe which is nonspecific. A nonemergent outpatient chest CT is recommended for further evaluation. 3. Cortical atrophy in both kidneys. Efrem Briceño MD Lower Extremity Ultrasound 09/06/17 0000 Signed Impressions: Service Date/Time: Wednesday, September 06, 2017 21:03 - CONCLUSION: Left groin hematoma. Efrem Briceño MD Objective Remarks GENERAL: NAD SKIN: Warm and dry.dressing over LLE incision HEAD: Normocephalic. EYES: No scleral icterus. No injection or drainage. NECK: Supple, trachea midline. No JVD or lymphadenopathy. CARDIOVASCULAR: Regular rate and rhythm without murmurs, gallops, or rubs. RESPIRATORY: Breath sounds equal bilaterally. No accessory muscle use. GASTROINTESTINAL: Abdomen soft, non-tender, nondistended. MUSCULOSKELETAL: No cyanosis, or edema. BACK: Nontender without obvious deformity. No CVA tenderness. Procedures None A/P Problem List: (1) Hematoma of groin ICD Code: S30.1XXA - Contusion of abdominal wall, initial encounter Status: Acute (2) Diabetes mellitus ICD Code: E11.9 - Type 2 diabetes mellitus without complications Status: Chronic (3) ESRD (end stage renal disease) on dialysis ICD Code: N18.6 - End stage renal disease; Z99.2 - Dependence on renal dialysis Status: Chronic (4) Anemia of renal disease ICD Code: D63.1 - Anemia in chronic kidney disease Status: Chronic (5) Sepsis affecting skin ICD Code: A41.9 - Sepsis, unspecified organism Status: Acute (6) Hypoglycemia associated with type 2 diabetes mellitus ICD Code: E11.649 - Type 2 diabetes mellitus with hypoglycemia without coma Status: Resolved Assessment and Plan 72-year-old female with 1. Infected left groin hematoma due to Klebsiella. Cellulitis of the left groin as well. Leukocytosis secondary to infection-Trending down Sepsis Currently on Zosyn per infectious disease specialist 2. Left femoral popliteal bypass Appreciate input from Vascular surgery 3.CAD/HTN/Hyperlipidemia Continue with outpatient medications 4. End-stage kidney disease on hemodialysis. HD per Nephrology Continue with electrolyte supplement 5. Transaminitis On admission LFTs within normal limits however now elevated LFTs likely secondary to medication side effect as patient currently on Zosyn Continue to hold statin and monitor LFTs. LFTs trending down 6. DM Start Levemir 10units HS and change to Medium ISS Check HgA1C Problem Qualifiers (1) Hematoma of groin: Qualified Codes: S30.1XXA - Contusion of abdominal wall, initial encounter (2) Diabetes mellitus: Marshall Glover MD Sep 13, 2017 11:07
[2017-09-13] MEDS ORDERED: GLUCAGON 1 MG/ML VIAL OTHER PRN (11:15)
[2017-09-13] MEDS ORDERED: DEXTROSE 50% IN WATER 50 ML VIAL(D50) IV PUSH PRN (11:15)
--- NOTE | 2017-09-13 11:45 | HHI.NPPN ---
Subjective History of Present Illness This patient is a 72-year-old female with a history of multiple medical problems including diabetes mellitus, hypertension, end-stage renal disease, anemia renal disease and peripheral vascular disease now recently status post left femoropopliteal bypass after developing subacute occlusion. Ration now presented with pain and noted to have evidence of a hematoma complicating the femoropopliteal bypass. Interval History Pt sitting up in chair. Says she is tired. Appears heavily medicated. (Ayala Simmons) Review of Systems General Constitutional: Fatigue (Ayala Simmons) Objective Data Data Vital Signs Date Time Temp Pulse Resp B/P (MAP) Pulse Ox O2 Delivery O2 Flow Rate FiO2 09/13/17 08:00 97.7 55 16 106/46 (66) 95 09/13/17 04:00 97.9 55 18 128/60 (82) 94 09/13/17 00:00 97.7 53 18 130/56 (80) 94 09/12/17 20:00 97.7 57 18 110/47 (68) 94 09/12/17 16:00 97.8 65 18 118/60 (79) 99 09/12/17 12:00 97.8 62 18 119/57 (77) 97 (Ayala Simmons) -: 09/12/17 0939 09/12/17 0939 Imaging Last Impressions Lower Extremity CT 09/08/17 0000 Signed Impressions: Service Date/Time: August 02:33 - CONCLUSION: No fracture. Postsurgical changes. Marshall Watkins MD Abdomen/Pelvis CT [id number] Signed Impressions: Service Date/Time: Wednesday, September 06, 2017 20:55 - CONCLUSION: 1. Post surgical changes in the left groin with hematoma. 2. 1.2 cm noncalcified pulmonary nodule in the right lower lobe which is nonspecific. A nonemergent outpatient chest CT is recommended for further evaluation. 3. Cortical atrophy in both kidneys. Efrem Briceño MD Lower Extremity Ultrasound 09/06/17 0000 Signed Impressions: Service Date/Time: Wednesday, September 06, 2017 21:03 - CONCLUSION: Left groin hematoma. Efrem Briceño MD Medication Review Current Medications Medications (Trade) Dose Ordered Sig/Julius Route Start Time Stop Time Status Last Admin (NS Flush) 2 ml UNSCH PRN IV FLUSH 09/07/17 01:30 (NS Flush) 2 ml BID IV FLUSH 09/07/17 09:00 09/13/17 09:15 (Tylenol) 650 mg Q4H PRN PO 09/07/17 01:30 (Zofran Inj) 4 mg Q6H PRN IVP 09/07/17 01:30 (Narcan Inj) 0.4 mg UNSCH PRN IV PUSH 09/07/17 01:30 (Lucinda-Colace) 1 tab BID PO 09/07/17 09:00 09/13/17 08:16 (Milk Of Magnesia Liq) 30 ml Q12H PRN PO 09/07/17 01:30 (Senokot) 17.2 mg Q12H PRN PO 09/07/17 01:30 (Dulcolax Supp) 10 mg DAILY PRN RECTAL 09/07/17 01:30 (Lactulose Liq) 30 ml DAILY PRN PO 09/07/17 01:30 (Morphine Inj) 2 mg Q3H PRN IV PUSH 09/07/17 01:30 09/07/17 10:15 (Coreg) 6.25 mg BID PO 09/07/17 09:00 09/13/17 08:16 (Sensipar) 30 mg DAILY PO 09/07/17 09:00 09/13/17 08:16 (Plavix) 75 mg DAILY PO 09/07/17 09:00 09/13/17 08:16 (Neurontin) 100 mg TID PO 09/07/17 09:00 09/13/17 08:16 (Synthroid) 125 mcg DAILY@0600 PO 09/07/17 06:00 09/13/17 05:56 (Glucagon Inj) 1 mg UNSCH PRN OTHER 09/07/17 04:15 (Zetia) 10 mg HS PO 09/07/17 21:00 09/12/17 22:57 (Lipitor) 40 mg HS PO 09/07/17 21:00 Future Hold 09/09/17 22:11 Sodium Chloride 1,000 ml @ 0 mls/hr Q0M PRN OTHER 09/07/17 09:42 09/10/17 15:36 Sodium Chloride 1,000 ml @ 200 mls/hr Q5H PRN IV 09/07/17 09:42 Sodium Chloride 1,000 ml @ 0 mls/hr Q0M PRN OTHER 09/07/17 09:42 Albumin Human 100 ml @ 60 mls/hr UNSCH PRN IV 09/07/17 09:45 09/10/17 15:35 (NS Flush) 5 ml UNSCH PRN IV FLUSH 09/07/17 09:45 (Heparin Inj) UNSCH PRN .XX 09/07/17 09:45 (Gentamicin Inj) 20 mg UNSCH PRN OTHER 09/07/17 09:45 (Zofran Inj) 4 mg UNSCH PRN IV PUSH 09/07/17 09:45 (Tylenol) 650 mg UNSCH PRN PO 09/07/17 09:45 (Benadryl) 25 mg UNSCH PRN PO 09/07/17 09:45 (Nitrostat Sl) 0.4 mg UNSCH PRN SL 09/07/17 09:45 (Catapres) 0.1 mg UNSCH PRN PO 09/07/17 09:45 (Epogen Inj) 8,000 units UNSCH PRN IV PUSH 09/07/17 09:45 09/10/17 15:35 (Gelfoam 12 Mm/7 Mm Top) 1 foam UNSCH PRN TOP 09/07/17 09:45 09/10/17 15:36 ([place] 5-325 Mg) 1 tab Q4H PRN PO 09/07/17 20:15 09/08/17 12:10 ([place] 5-325 Mg) 2 tab Q4H PRN PO 09/07/17 20:15 09/13/17 10:08 Piperacillin Sod/ Tazobactam Sod 50 ml @ 100 mls/hr Q8H IV 09/08/17 18:00 09/13/17 09:15 (D50w (Vial) Inj) 50 ml UNSCH PRN IV PUSH 09/13/17 11:15 (Glucagon Inj) 1 mg UNSCH PRN OTHER 09/13/17 11:15 (NovoLOG SUPPLEMENTAL SCALE) 1 ACHS SLIDING SCALE SQ 09/13/17 12:00 (Levemir Inj) 10 units HS SQ 09/13/17 21:00 (Ayala Simmons) Physical Exam General Appearance: Well Nourished, No Acute Distress, Comfortable (Ayala Simmons) Pulmonary Resp Exam: Clear Bilaterally, Breath Sounds Equal (Ayala Simmons) Cardiology CV Exam: Regular, Normal Sinus Rhythm (Ayala Simmons) Gastrointestinal/Abdomen GI Exam: Soft, Non-Tender (Ayala Simmons) Integumentary Skin Exam: Clear, Warm, Normal Turgor (Ayala Simmons) Extremeties Extremities Exam: Trace Edema (Ayala Simmons) Neurologic Neuro Exam: Alert, Awake (Ayala Simmons) Psychiatric Psych Exam: Appropriate Responses (Ayala Simmons) Assessment/Plan Discussed Condition With: Patient Problem List: (1) ESRD (end stage renal disease) on dialysis ICD Codes: N18.6 - End stage renal disease; Z99.2 - Dependence on renal dialysis Status: Chronic Plan: Continue HD MWF as before. Discharge planning OK from renal standpoint. Medication should be adjusted for the patient's ESRD. Avoid gadolinium. (2) Edema of both legs ICD Codes: R60.0 - Localized edema Plan: Resolved with HD (3) Anemia of renal disease ICD Codes: D63.1 - Anemia in chronic kidney disease Status: Chronic Plan: Epogen for anemia renal disease as ordered. (4) Secondary hyperparathyroidism of renal origin ICD Codes: N25.81 - Secondary hyperparathyroidism of renal origin Plan: Continue Sensipar for secondary hyperparathyroidism of renal disease. (5) Hematoma of groin ICD Codes: S30.1XXA - Contusion of abdominal wall, initial encounter Status: Acute Plan: With probable superimposed cellulitis. ID on case. Now on Zosyn (6) Diabetes mellitus ICD Codes: E11.9 - Type 2 diabetes mellitus without complications Status: Chronic (7) Transaminitis ICD Codes: R74.0 - Nonspecific elevation of levels of transaminase and lactic acid dehydrogenase [LDH] Status: Acute Plan: LFTs improving but still elevated Mgmt deferred to primary (Ayala Simmons) Plan The exam, history, and the medical decision-making described in the above note were completed with the assistance of the RAD[facility]. I reviewed and agree with the findings presented. (Kimberly Sampson MD) Problem Qualifiers (1) Hematoma of groin: Qualified Codes: S30.1XXA - Contusion of abdominal wall, initial encounter (2) Diabetes mellitus: Ayala Simmons Sep 13, 2017 11:45 Kimberly Sampson MD Sep 15, 2017 15:11
[2017-09-13 12:00] VITALS: BP 107/51; PULSE 53; RESP 16; TEMP 98.9; O2SAT 94
--- NOTE | 2017-09-13 15:24 | HHI.NPPN ---
Subjective History of Present Illness This patient is a 72-year-old female with a history of multiple medical problems including diabetes mellitus, hypertension, end-stage renal disease, anemia renal disease and peripheral vascular disease now recently status post left femoropopliteal bypass after developing subacute occlusion. Ration now presented with pain and noted to have evidence of a hematoma complicating the femoropopliteal bypass. Review of Systems General Constitutional: Fatigue Objective Data Data Vital Signs Date Time Temp Pulse Resp B/P (MAP) Pulse Ox O2 Delivery O2 Flow Rate FiO2 09/13/17 08:00 97.7 55 16 106/46 (66) 95 09/13/17 04:00 97.9 55 18 128/60 (82) 94 09/13/17 00:00 97.7 53 18 130/56 (80) 94 09/12/17 20:00 97.7 57 18 110/47 (68) 94 09/12/17 16:00 97.8 65 18 118/60 (79) 99 -: 09/12/17 0939 09/12/17 0939 Physical Exam General Appearance: Well Nourished, No Acute Distress, Comfortable Pulmonary Resp Exam: Clear Bilaterally, Breath Sounds Equal Cardiology CV Exam: Regular, Normal Sinus Rhythm Gastrointestinal/Abdomen GI Exam: Soft, Non-Tender Integumentary Skin Exam: Clear, Warm, Normal Turgor Extremeties Extremities Exam: Trace Edema Neurologic Neuro Exam: Alert, Awake Psychiatric Psych Exam: Appropriate Responses Assessment/Plan Discussed Condition With: Patient Problem List: (1) ESRD (end stage renal disease) on dialysis ICD Codes: N18.6 - End stage renal disease; Z99.2 - Dependence on renal dialysis Status: Chronic Plan: Continue HD MWF as before. Discharge planning OK from renal standpoint. Medication should be adjusted for the patient's ESRD. Avoid gadolinium. (2) Edema of both legs ICD Codes: R60.0 - Localized edema Plan: Resolved with HD (3) Anemia of renal disease ICD Codes: D63.1 - Anemia in chronic kidney disease Status: Chronic Plan: Epogen for anemia renal disease as ordered. (4) Secondary hyperparathyroidism of renal origin ICD Codes: N25.81 - Secondary hyperparathyroidism of renal origin Plan: Continue Sensipar for secondary hyperparathyroidism of renal disease. (5) Hematoma of groin ICD Codes: S30.1XXA - Contusion of abdominal wall, initial encounter Status: Acute Plan: With probable superimposed cellulitis. ID on case. Now on Zosyn (6) Diabetes mellitus ICD Codes: E11.9 - Type 2 diabetes mellitus without complications Status: Chronic (7) Transaminitis ICD Codes: R74.0 - Nonspecific elevation of levels of transaminase and lactic acid dehydrogenase [LDH] Status: Acute Plan: LFTs improving but still elevated Mgmt deferred to primary Plan The exam, history, and the medical decision-making described in the above note were completed with the assistance of the RADHA. I reviewed and agree with the findings presented. Problem Qualifiers (1) Hematoma of groin: Qualified Codes: S30.1XXA - Contusion of abdominal wall, initial encounter (2) Diabetes mellitus: Kimberly Sampson MD Sep 13, 2017 15:24
[2017-09-13 16:00] VITALS: BP 109/44; PULSE 50; RESP 16; TEMP 98.5; O2SAT 94
[2017-09-13 20:00] VITALS: BP 105/49; PULSE 52; RESP 18; TEMP 97.9; O2SAT 95
[2017-09-13] MEDS: EZETIMIBE 10 MG TAB PO SCH (21:00)
[2017-09-13] MEDS: INSULIN DETEMIR 100 UNITS/ML VIAL SQ SCH (21:00)
[2017-09-14] VITALS: BP 114/57; PULSE 52; RESP 18; TEMP 98.2; O2SAT 97
[2017-09-14] MEDS: PIPERACIL-TAZO 2.25 GM PREMIX 50 ML IV SCH ×3 (03:29→18:34)
[2017-09-14 04:00] VITALS: BP 124/55; PULSE 53; RESP 18; TEMP 98.5; O2SAT 96
[2017-09-14] MEDS: LEVOTHYROXINE SODIUM 125 MCG TAB PO SCH (05:59)
[2017-09-14 08:00] VITALS: BP 103/44; PULSE 53; RESP 18; TEMP 98.3; O2SAT 95
[2017-09-14] MEDS: GABAPENTIN 100 MG CAP PO SCH ×3 (09:13→18:34)
[2017-09-14] MEDS: CARVEDILOL 6.25 MG TAB PO SCH ×2 (09:13→21:40)
[2017-09-14] MEDS: CLOPIDOGREL 75 MG TAB PO SCH (09:13)
[2017-09-14] MEDS: CINACALCET HYDROCHLORIDE 30 MG TAB PO SCH (09:13)
[2017-09-14] MEDS: DOCUSATE SODIUM 50 MG/SENNA 8.6 MG TAB PO SCH ×2 (09:14→21:39)
[2017-09-14] MEDS: SODIUM CHLORIDE 0.9% FLUSH 10 ML FLUSH IV FLUSH SCH ×2 (09:14→21:40)
[2017-09-14] MEDS: INSULIN ASPART SUPPLEMENTAL SCALE SQ SCH ×4 (09:14→21:41)
[2017-09-14 09:36] LABS: ALBUMIN 2.8 GM/DL (3.4-5.0); BICARBONATE 27.1 MEQ/L (21.0-32.0); BLOOD UREA NITROGEN 62 MG/DL (7-18); CALCIUM 9.8 MG/DL (8.5-10.1); CHLORIDE 92 MEQ/L (98-107); CREATININE 5.61 MG/DL (0.50-1.00); GLOMERULAR FILTRATION RATE 7 ML/MIN (>89); GLUCOSE,RANDOM 147 MG/DL (74-106); SODIUM (NA) 131 MEQ/L (136-145)
[2017-09-14 09:37] LABS: PHOSPHORUS 4.5 MG/DL (2.5-4.9)
[2017-09-14 12:00] VITALS: PULSE 68; RESP 18; TEMP 98.2; O2SAT 94
--- NOTE | 2017-09-14 12:42 | HHI.IDPN ---
Note Infectious Disease Note Patient notes that she has pain approximately 6/10 level at the left groin. Afebrile Denies chills. Patient is status post left femoral popliteal bypass for limb-threatening ischemia on 08/30/2017. Started developing severe pain in the left groin on 09/06 and she was brought to the emergency department for evaluation. She was noted to have an area of ecchymosis at the groin and the proximal thigh on the left side. PAST MEDICAL HISTORY: Diabetes mellitus, peripheral vascular disease, hypertension, hyperlipidemia, coronary artery disease, end-stage kidney disease treated with hemodialysis. PAST SURGICAL HISTORY: Appendectomy, cholecystectomy, history of coronary artery bypass graft surgery x2, history of left second toe amputation. ALLERGIES: AMLODIPINE, BUMETANIDE MEDICATIONS: Current Medications Medications (Trade) Dose Ordered Sig/Julius Route PRN Reason Start Time Stop Time Status Last Admin Dose Admin Sodium Chloride (NS Flush) 2 ml UNSCH PRN IV FLUSH FLUSH AFTER USING IV ACCESS 09/07/17 01:30 Sodium Chloride (NS Flush) 2 ml BID IV FLUSH 09/07/17 09:00 09/14/17 09:14 Acetaminophen (Tylenol) 650 mg Q4H PRN PO TEMP > 100.4 09/07/17 01:30 Ondansetron HCl (Zofran Inj) 4 mg Q6H PRN IVP NAUSEA OR VOMITING 09/07/17 01:30 Naloxone HCl (Narcan Inj) 0.4 mg UNSCH PRN IV PUSH SEE LABEL COMMENTS 09/07/17 01:30 Senna/Docusate Sodium (Lucinda-Colace) 1 tab BID PO 09/07/17 09:00 09/14/17 09:14 Magnesium Hydroxide (Milk Of Magnesia Liq) 30 ml Q12H PRN PO Mild constipation 09/07/17 01:30 Sennosides (Senokot) 17.2 mg Q12H PRN PO Moderate constipation 09/07/17 01:30 Bisacodyl (Dulcolax Supp) 10 mg DAILY PRN RECTAL SEVERE CONSITIPATION 09/07/17 01:30 Lactulose (Lactulose Liq) 30 ml DAILY PRN PO SEVERE CONSITIPATION 09/07/17 01:30 Morphine Sulfate (Morphine Inj) 2 mg Q3H PRN IV PUSH BREAKTHROUGH PAIN 09/07/17 01:30 09/07/17 10:15 Carvedilol (Coreg) 6.25 mg BID PO 09/07/17 09:00 09/14/17 09:13 Cinacalcet (Sensipar) 30 mg DAILY PO 09/07/17 09:00 09/14/17 09:13 Clopidogrel Bisulfate (Plavix) 75 mg DAILY PO 09/07/17 09:00 09/14/17 09:13 Gabapentin (Neurontin) 100 mg TID PO 09/07/17 09:00 09/14/17 09:13 Levothyroxine Sodium (Synthroid) 125 mcg DAILY@0600 PO 09/07/17 06:00 09/14/17 05:59 Glucagon (Glucagon Inj) 1 mg UNSCH PRN OTHER HYPOGLYCEMIA-SEE COMMENTS 09/07/17 04:15 EZETIMIBE (Zetia) 10 mg HS PO 09/07/17 21:00 09/13/17 21:00 Atorvastatin Calcium (Lipitor) 40 mg HS PO 09/07/17 21:00 Future Hold 09/09/17 22:11 Sodium Chloride 1,000 ml @ 0 mls/hr Q0M PRN OTHER For Prime & Rinse Back 09/07/17 09:42 09/10/17 15:36 Sodium Chloride 1,000 ml @ 200 mls/hr Q5H PRN IV WITH DIALYSIS 09/07/17 09:42 Sodium Chloride 1,000 ml @ 0 mls/hr Q0M PRN OTHER WITH DIALYSIS 09/07/17 09:42 Albumin Human 100 ml @ 60 mls/hr UNSCH PRN IV WITH DIALYSIS 09/07/17 09:45 09/10/17 15:35 Sodium Chloride (NS Flush) 5 ml UNSCH PRN IV FLUSH WITH DIALYSIS 09/07/17 09:45 Heparin Sodium (Porcine) (Heparin Inj) UNSCH PRN .XX WITH DIALYSIS 09/07/17 09:45 Gentamicin Sulfate (Gentamicin Inj) 20 mg UNSCH PRN OTHER WITH DIALYSIS 09/07/17 09:45 Ondansetron HCl (Zofran Inj) 4 mg UNSCH PRN IV PUSH WITH DIALYSIS 09/07/17 09:45 Acetaminophen (Tylenol) 650 mg UNSCH PRN PO for headach, pain, temp > 101F 09/07/17 09:45 Diphenhydramine HCl (Benadryl) 25 mg UNSCH PRN PO for hives/itching/anaphylaxis 09/07/17 09:45 Nitroglycerin (Nitrostat Sl) 0.4 mg UNSCH PRN SL CHEST PAIN 09/07/17 09:45 Clonidine (Catapres) 0.1 mg UNSCH PRN PO for BP > 180/100 X 2 readings 09/07/17 09:45 Epoetin Dio (Epogen Inj) 8,000 units UNSCH PRN IV PUSH WITH DIALYSIS 09/07/17 09:45 09/10/17 15:35 Gelatin (Gelfoam 12 Mm/7 Mm Top) 1 foam UNSCH PRN TOP SEE LABEL COMMENTS 09/07/17 09:45 09/10/17 15:36 Acetaminophen/ Hydrocodone Bitart ([place] 5-325 Mg) 1 tab Q4H PRN PO PAIN SCALE 1 TO 4 09/07/17 20:15 09/08/17 12:10 Acetaminophen/ Hydrocodone Bitart ([place] 5-325 Mg) 2 tab Q4H PRN PO PAIN SCALE 5 TO 10 09/07/17 20:15 09/13/17 10:08 Piperacillin Sod/ Tazobactam Sod 50 ml @ 100 mls/hr Q8H IV 09/08/17 18:00 09/14/17 09:13 Dextrose (D50w (Vial) Inj) 50 ml UNSCH PRN IV PUSH HYPOGLYCEMIA-SEE COMMENTS 09/13/17 11:15 Glucagon (Glucagon Inj) 1 mg UNSCH PRN OTHER HYPOGLYCEMIA-SEE COMMENTS 09/13/17 11:15 Insulin Aspart (NovoLOG SUPPLEMENTAL SCALE) 1 ACHS SLIDING SCALE SQ 09/13/17 12:00 09/14/17 09:14 Insulin Detemir (Levemir Inj) 10 units HS SQ 09/13/17 21:00 09/13/17 21:00 SOCIAL HISTORY: The patient is . No tobacco, no alcohol, no illicit drugs. Review of systems: Negative 10 point review except for pain in the left groin. Objective: Vital Signs Date Time Temp Pulse Resp B/P (MAP) Pulse Ox O2 Delivery O2 Flow Rate FiO2 09/14/17 08:00 98.3 53 18 103/44 (63) 95 09/14/17 04:00 98.5 53 18 124/55 (78) 96 09/14/17 00:00 98.2 52 18 114/57 (76) 97 09/13/17 20:00 97.9 52 18 105/49 (67) 95 09/13/17 16:00 98.5 50 16 109/44 (65) 94 Laboratory Tests Test 09/14/17 08:48 Blood Urea Nitrogen 62 MG/DL Creatinine 5.61 MG/DL Random Glucose 147 MG/DL Albumin 2.8 GM/DL Calcium Level 9.8 MG/DL Phosphorus Level 4.5 MG/DL Sodium Level 131 MEQ/L Potassium Level 4.7 MEQ/L Chloride Level 92 MEQ/L Carbon Dioxide Level 27.1 MEQ/L Anion Gap 12 MEQ/L Estimat Glomerular Filtration Rate 7 ML/MIN Imaging: Lower Extremity CT 09/08/17 0000 Signed Impressions: Service Date/Time: August 02:33 - CONCLUSION: No fracture. Postsurgical changes. Marshall Watkins MD Abdomen/Pelvis CT [id number] Signed Impressions: Service Date/Time: Wednesday, September 06, 2017 20:55 - CONCLUSION: 1. Post surgical changes in the left groin with hematoma. 2. 1.2 cm noncalcified pulmonary nodule in the right lower lobe which is nonspecific. A nonemergent outpatient chest CT is recommended for further evaluation. 3. Cortical atrophy in both kidneys. Efrem Briceño MD Lower Extremity Ultrasound 09/06/17 0000 Signed Impressions: Service Date/Time: Wednesday, September 06, 2017 21:03 - CONCLUSION: Left groin hematoma. Efrem Briceño MD PHYSICAL EXAMINATION: GENERAL: Alert and oriented. No acute distress. HEENT: Extraocular movements grossly intact. Pupils reactive to light. No icterus. Oropharynx moist mucosa without lesions. NECK: Supple without adenopathy. LUNGS: Clear to auscultation. CARDIOVASCULAR: Regular S1 and S2. No murmurs rubs or gallops. ABDOMEN: Bowel sounds present. Soft, no tenderness. EXTREMITIES: The left thigh and left groin has ecchymosis. Blanching erythema at the left thigh Laterally and also at the in the posterior aspect. Serous drainage coming via a small opening at the groove of the groin. The current dressing is saturated. SKIN: No diffuse rash. NEUROLOGIC: Nonfocal. PSYCHIATRIC: Calm and cooperative. IMPRESSION: 1. Infected left groin hematoma due to Klebsiella. Post fem pop bypass with graft. 2. Cellulitis/ecchymosis of the left groin. 3. Leukocytosis secondary to infection. 4. End-stage kidney disease on hemodialysis. RECOMMENDATIONS: 1. Continue piperacillin/tazobactam. 2. Continue to monitor clinical response. 3. Dressing changes to the groin wound. Bernardo Corrales MD Sep 14, 2017 12:42
--- NOTE | 2017-09-14 15:21 | HHI.PR ---
Subjective Remarks Patient just seen by surgeon, she looks fatigued, pain in her groin and leg, per the nurse she has altered mental status on and off today Objective Vitals Vital Signs Date Time Temp Pulse Resp B/P (MAP) Pulse Ox O2 Delivery O2 Flow Rate FiO2 09/14/17 12:00 98.2 68 18 94 09/14/17 08:00 98.3 53 18 103/44 (63) 95 09/14/17 04:00 98.5 53 18 124/55 (78) 96 09/14/17 00:00 98.2 52 18 114/57 (76) 97 09/13/17 20:00 97.9 52 18 105/49 (67) 95 09/13/17 16:00 98.5 50 16 109/44 (65) 94 I/O 09/13/17 09/13/17 09/13/17 09/14/17 09/14/17 09/14/17 07:00 15:00 23:00 07:00 15:00 23:00 # Bowel Movements 1 Result Diagram: 09/12/17 0939 09/14/17 0848 Objective Remarks GENERAL: This is a well-nourished, well-developed patient, in mild distress due to pain in the groin SKIN: No rashes, warm and dry HEAD: Atraumatic. Normocephalic. EYES: Pupils equal round and reactive. Extraocular motions intact. No scleral icterus. ENT: Nose without bleeding, or drainage, Airway patent. NECK: Trachea midline. Supple CARDIOVASCULAR: Regular rate and rhythm without murmurs, gallops, or rubs. RESPIRATORY: Fair air entry bilaterally. No wheezes, rales, or rhonchi. GASTROINTESTINAL: Abdomen soft, non-tender, nondistended. Positive bowel sounds MUSCULOSKELETAL: Right groin hematoma under pressure and gauze along with lower extremity femoropopliteal surgical site and jessika it has been cleaned by the nurse NEUROLOGICAL: Awake and alert. Moves all extremity. Normal speech.no focal neurological deficit Procedures None A/P Problem List: (1) Hematoma of groin ICD Code: S30.1XXA - Contusion of abdominal wall, initial encounter Status: Acute (2) Diabetes mellitus ICD Code: E11.9 - Type 2 diabetes mellitus without complications Status: Chronic (3) ESRD (end stage renal disease) on dialysis ICD Code: N18.6 - End stage renal disease; Z99.2 - Dependence on renal dialysis Status: Chronic (4) Anemia of renal disease ICD Code: D63.1 - Anemia in chronic kidney disease Status: Chronic (5) Sepsis affecting skin ICD Code: A41.9 - Sepsis, unspecified organism Status: Acute (6) Hypoglycemia associated with type 2 diabetes mellitus ICD Code: E11.649 - Type 2 diabetes mellitus with hypoglycemia without coma Status: Resolved Assessment and Plan 72-year-old female with 09/14: Patient just assessed by the surgeon, continue current care with IV antibiotic, monitor growing hematoma, CBC in a.m. A/P: 1. Infected left groin hematoma due to Klebsiella. Cellulitis of the left groin as well. Leukocytosis secondary to infection-Trending down Sepsis Currently on Zosyn per infectious disease specialist 2. Left femoral popliteal bypass Appreciate input from Vascular surgery 3.CAD/HTN/Hyperlipidemia Continue with outpatient medications 4. End-stage kidney disease on hemodialysis. HD per Nephrology Continue with electrolyte supplement 5. Transaminitis On admission LFTs within normal limits however now elevated LFTs likely secondary to medication side effect as patient currently on Zosyn Continue to hold statin and monitor LFTs. LFTs trending down 6. DM Start Levemir 10units HS and change to Medium ISS Check HgA1C Problem Qualifiers (1) Hematoma of groin: Qualified Codes: S30.1XXA - Contusion of abdominal wall, initial encounter (2) Diabetes mellitus: Cydney Katz MD Sep 14, 2017 15:21
[2017-09-14] MEDS ORDERED: traMADol HCL 50 MG TAB PO PRN (15:30)
--- NOTE | 2017-09-14 16:26 | HHI.NPPN ---
Subjective History of Present Illness This patient is a 72-year-old female with a history of multiple medical problems including diabetes mellitus, hypertension, end-stage renal disease, anemia renal disease and peripheral vascular disease now recently status post left femoropopliteal bypass after developing subacute occlusion. Ration now presented with pain and noted to have evidence of a hematoma complicating the femoropopliteal bypass. Interval History Pt seen during HD today. Says that she is in a significant amount of pain and says she may have to sign off treatment early. Trying to de-escalate her pain medication requirement. (Ayala Simmons) Review of Systems General Constitutional: Fatigue (Ayala Simmons) Objective Data Data Vital Signs Date Time Temp Pulse Resp B/P (MAP) Pulse Ox O2 Delivery O2 Flow Rate FiO2 09/14/17 12:00 98.2 68 18 94 09/14/17 08:00 98.3 53 18 103/44 (63) 95 09/14/17 04:00 98.5 53 18 124/55 (78) 96 09/14/17 00:00 98.2 52 18 114/57 (76) 97 09/13/17 20:00 97.9 52 18 105/49 (67) 95 (Ayala Simmons) -: 09/12/17 0939 09/14/17 0848 Imaging Last Impressions Lower Extremity CT 09/08/17 0000 Signed Impressions: Service Date/Time: August 02:33 - CONCLUSION: No fracture. Postsurgical changes. Marshall Watkins MD Abdomen/Pelvis CT [id number] Signed Impressions: Service Date/Time: Wednesday, September 06, 2017 20:55 - CONCLUSION: 1. Post surgical changes in the left groin with hematoma. 2. 1.2 cm noncalcified pulmonary nodule in the right lower lobe which is nonspecific. A nonemergent outpatient chest CT is recommended for further evaluation. 3. Cortical atrophy in both kidneys. Efrem Briceño MD Lower Extremity Ultrasound 09/06/17 0000 Signed Impressions: Service Date/Time: Wednesday, September 06, 2017 21:03 - CONCLUSION: Left groin hematoma. Efrem Briceño MD Medication Review Current Medications Medications (Trade) Dose Ordered Sig/Julius Route Start Time Stop Time Status Last Admin (NS Flush) 2 ml UNSCH PRN IV FLUSH 09/07/17 01:30 (NS Flush) 2 ml BID IV FLUSH 09/07/17 09:00 09/14/17 09:14 (Tylenol) 650 mg Q4H PRN PO 09/07/17 01:30 (Zofran Inj) 4 mg Q6H PRN IVP 09/07/17 01:30 (Narcan Inj) 0.4 mg UNSCH PRN IV PUSH 09/07/17 01:30 (Lucinda-Colace) 1 tab BID PO 09/07/17 09:00 09/14/17 09:14 (Milk Of Magnesia Liq) 30 ml Q12H PRN PO 09/07/17 01:30 (Senokot) 17.2 mg Q12H PRN PO 09/07/17 01:30 (Dulcolax Supp) 10 mg DAILY PRN RECTAL 09/07/17 01:30 (Lactulose Liq) 30 ml DAILY PRN PO 09/07/17 01:30 (Morphine Inj) 2 mg Q3H PRN IV PUSH 09/07/17 01:30 09/07/17 10:15 (Coreg) 6.25 mg BID PO 09/07/17 09:00 09/14/17 09:13 (Sensipar) 30 mg DAILY PO 09/07/17 09:00 09/14/17 09:13 (Plavix) 75 mg DAILY PO 09/07/17 09:00 09/14/17 09:13 (Neurontin) 100 mg TID PO 09/07/17 09:00 09/14/17 13:02 (Synthroid) 125 mcg DAILY@0600 PO 09/07/17 06:00 09/14/17 05:59 (Glucagon Inj) 1 mg UNSCH PRN OTHER 09/07/17 04:15 (Zetia) 10 mg HS PO 09/07/17 21:00 09/13/17 21:00 (Lipitor) 40 mg HS PO 09/07/17 21:00 Future Hold 09/09/17 22:11 Sodium Chloride 1,000 ml @ 0 mls/hr Q0M PRN OTHER 09/07/17 09:42 09/10/17 15:36 Sodium Chloride 1,000 ml @ 200 mls/hr Q5H PRN IV 09/07/17 09:42 Sodium Chloride 1,000 ml @ 0 mls/hr Q0M PRN OTHER 09/07/17 09:42 Albumin Human 100 ml @ 60 mls/hr UNSCH PRN IV 09/07/17 09:45 09/10/17 15:35 (NS Flush) 5 ml UNSCH PRN IV FLUSH 09/07/17 09:45 (Heparin Inj) UNSCH PRN .XX 09/07/17 09:45 (Gentamicin Inj) 20 mg UNSCH PRN OTHER 09/07/17 09:45 (Zofran Inj) 4 mg UNSCH PRN IV PUSH 09/07/17 09:45 (Tylenol) 650 mg UNSCH PRN PO 09/07/17 09:45 (Benadryl) 25 mg UNSCH PRN PO 09/07/17 09:45 (Nitrostat Sl) 0.4 mg UNSCH PRN SL 09/07/17 09:45 (Catapres) 0.1 mg UNSCH PRN PO 09/07/17 09:45 (Epogen Inj) 8,000 units UNSCH PRN IV PUSH 09/07/17 09:45 09/10/17 15:35 (Gelfoam 12 Mm/7 Mm Top) 1 foam UNSCH PRN TOP 09/07/17 09:45 09/10/17 15:36 Piperacillin Sod/ Tazobactam Sod 50 ml @ 100 mls/hr Q8H IV 09/08/17 18:00 09/14/17 09:13 (D50w (Vial) Inj) 50 ml UNSCH PRN IV PUSH 09/13/17 11:15 (Glucagon Inj) 1 mg UNSCH PRN OTHER 09/13/17 11:15 (NovoLOG SUPPLEMENTAL SCALE) 1 ACHS SLIDING SCALE SQ 09/13/17 12:00 09/14/17 13:02 (Levemir Inj) 10 units HS SQ 09/13/17 21:00 09/13/17 21:00 (Ultram) 50 mg Q8H PRN PO 09/14/17 15:30 09/14/17 16:09 (Ayala Simmons) Physical Exam General Appearance: No Acute Distress (Ayala Simmons) Pulmonary Resp Exam: Clear Bilaterally, Breath Sounds Equal (Ayala Simmons) Cardiology CV Exam: Regular, Normal Sinus Rhythm (Ayala Simmons) Gastrointestinal/Abdomen GI Exam: Soft, Non-Tender (Ayala Simmons) Integumentary Skin Exam: Clear, Warm, Normal Turgor (Ayala Simmons) Extremeties Extremities Exam: Moderate Edema (1+ pitting edema BLE L>R) (Ayala Simmons) Neurologic Neuro Exam: Alert, Awake (Ayala Simmons) Psychiatric Psych Exam: Appropriate Responses (Ayala Simmons) Assessment/Plan Discussed Condition With: Patient Problem List: (1) ESRD (end stage renal disease) on dialysis ICD Codes: N18.6 - End stage renal disease; Z99.2 - Dependence on renal dialysis Status: Chronic Plan: Pt seen during HD today. Access working well. Significant edema, but BP marginal as she is on pain medications. May need additional HD tomorrow for additional fluid removal, but doubtful she will consent. Will re-assess in the AM and have tentative extra treatment tomorrow. Discussed with HD nurse. Medication should be adjusted for the patient's ESRD. Avoid gadolinium. (2) Edema of both legs ICD Codes: R60.0 - Localized edema Plan: L>R 2/2 to cellulitis (3) Anemia of renal disease ICD Codes: D63.1 - Anemia in chronic kidney disease Status: Chronic Plan: Epogen for anemia renal disease as ordered. (4) Secondary hyperparathyroidism of renal origin ICD Codes: N25.81 - Secondary hyperparathyroidism of renal origin Plan: Continue Sensipar for secondary hyperparathyroidism of renal disease. (5) Hematoma of groin ICD Codes: S30.1XXA - Contusion of abdominal wall, initial encounter Status: Acute Plan: With probable superimposed cellulitis. ID on case. Now on Zosyn (6) Diabetes mellitus ICD Codes: E11.9 - Type 2 diabetes mellitus without complications Status: Chronic (7) Transaminitis ICD Codes: R74.0 - Nonspecific elevation of levels of transaminase and lactic acid dehydrogenase [LDH] Status: Acute Plan: Repeat LFTs tomorrow (Ayala Simmons) Plan The exam, history, and the medical decision-making described in the above note were completed with the assistance of the RADHA. I reviewed and agree with the findings presented. (Kimberly Sampson MD) Problem Qualifiers (1) Hematoma of groin: Qualified Codes: S30.1XXA - Contusion of abdominal wall, initial encounter (2) Diabetes mellitus: Ayala Simmons Sep 14, 2017 16:26 Kimberly Sampson MD Sep 15, 2017 15:11
[2017-09-14 16:43] LABS: HEMOGLOBIN A1C 6.6 % (4.3-6.0)
[2017-09-14 18:21] LABS: ALBUMIN 2.8 GM/DL (3.4-5.0); DIRECT BILIRUBIN ADULT 0.4 MG/DL (0.0-0.2)
[2017-09-14 18:23] LABS: INDIRECT BILIRUBIN 0.4 MG/DL (0.0-0.8); TOTAL BILIRUBIN ADULT 0.8 MG/DL (0.2-1.0); TOTAL PROTEIN 6.7 GM/DL (6.4-8.2)
[2017-09-14] MEDS: ACETAMINOPHEN 325 MG TAB PO PRN (19:08)
[2017-09-14 21:00] VITALS: BP 111/52; PULSE 56; RESP 16; TEMP 97.8; O2SAT 94
[2017-09-14] MEDS: EZETIMIBE 10 MG TAB PO SCH (21:39)
[2017-09-14] MEDS: INSULIN DETEMIR 100 UNITS/ML VIAL SQ SCH (21:41)
[2017-09-15 00:30] VITALS: BP 115/54; PULSE 58; RESP 17; TEMP 98; O2SAT 94
[2017-09-15] MEDS: PIPERACIL-TAZO 2.25 GM PREMIX 50 ML IV SCH ×3 (01:45→17:59)
[2017-09-15] MEDS: LEVOTHYROXINE SODIUM 125 MCG TAB PO SCH (05:20)
[2017-09-15 05:40] VITALS: BP 110/53; PULSE 56; RESP 16; TEMP 98; O2SAT 95
[2017-09-15 08:00] VITALS: BP 116/56; PULSE 55; RESP 18; TEMP 98.3; O2SAT 92
[2017-09-15] MEDS: INSULIN ASPART SUPPLEMENTAL SCALE SQ SCH ×4 (08:00→22:04)
[2017-09-15] MEDS: CARVEDILOL 6.25 MG TAB PO SCH ×2 (09:00→21:00)
[2017-09-15] MEDS: SODIUM CHLORIDE 0.9% FLUSH 10 ML FLUSH IV FLUSH SCH ×2 (09:21→22:04)
[2017-09-15] MEDS: CINACALCET HYDROCHLORIDE 30 MG TAB PO SCH (09:24)
[2017-09-15] MEDS: DOCUSATE SODIUM 50 MG/SENNA 8.6 MG TAB PO SCH ×2 (09:25→21:00)
[2017-09-15] MEDS: GABAPENTIN 100 MG CAP PO SCH ×3 (09:25→17:59)
[2017-09-15] MEDS: CLOPIDOGREL 75 MG TAB PO SCH (09:27)
[2017-09-15] MEDS: ACETAMINOPHEN 325 MG TAB PO PRN ×2 (09:31→22:03)
[2017-09-15 09:54] LABS: HEMATOCRIT 27.7 % (35.0-46.0); HEMOGLOBIN 8.9 GM/DL (11.6-15.3); MEAN CORPUSCULAR HEMOGLOBIN 33.2 PG (27.0-34.0); MEAN CORPUSCULAR HGB CONC 32.2 % (32.0-36.0); MEAN PLATELET VOLUME 7.8 FL (7.0-11.0); PLATELET COUNT 225 TH/MM3 (150-450); RED BLOOD COUNT 2.69 MIL/MM3 (4.00-5.30); RED CELL DISTRIBUTION WIDTH 19.7 % (11.6-17.2); WHITE BLOOD COUNT 12.9 TH/MM3 (4.0-11.0)
[2017-09-15 10:09] LABS: ALBUMIN 2.6 GM/DL (3.4-5.0); BICARBONATE 25.7 MEQ/L (21.0-32.0); CALCIUM 9.5 MG/DL (8.5-10.1); CREATININE 5.2 MG/DL (0.50-1.00); PHOSPHORUS 4.9 MG/DL (2.5-4.9)
--- NOTE | 2017-09-15 15:13 | HHI.NPPN ---
Subjective History of Present Illness This patient is a 72-year-old female with a history of multiple medical problems including diabetes mellitus, hypertension, end-stage renal disease, anemia renal disease and peripheral vascular disease now recently status post left femoropopliteal bypass after developing subacute occlusion. Ration now presented with pain and noted to have evidence of a hematoma complicating the femoropopliteal bypass. Interval History Patient was seen post dialysis today. No verbal complaints. Review of Systems General Constitutional: Fatigue Objective Data Data 09/15/17 09/16/17 19:00 07:00 Output Total 2000 ml Balance -2000 ml Hemodialysis 2000 ml # Bowel Movements 1 Vital Signs Date Time Temp Pulse Resp B/P (MAP) Pulse Ox O2 Delivery O2 Flow Rate FiO2 09/15/17 08:00 98.3 55 18 116/56 (76) 92 09/15/17 05:40 98.0 56 16 110/53 (72) 95 09/15/17 00:30 98.0 58 17 115/54 (74) 94 09/14/17 21:00 97.8 56 16 111/52 (71) 94 -: 09/15/17 0759 09/15/17 0759 Physical Exam General Appearance: No Acute Distress Pulmonary Resp Exam: Clear Bilaterally, Breath Sounds Equal Cardiology CV Exam: Regular, Normal Sinus Rhythm Gastrointestinal/Abdomen GI Exam: Soft, Non-Tender Integumentary Skin Exam: Clear, Warm, Normal Turgor Extremeties Extremities Exam: Moderate Edema (1+ pitting edema BLE L>R), Pitting Edema Neurologic Neuro Exam: Alert, Awake Psychiatric Psych Exam: Appropriate Responses Assessment/Plan Discussed Condition With: Patient Problem List: (1) ESRD (end stage renal disease) on dialysis ICD Codes: N18.6 - End stage renal disease; Z99.2 - Dependence on renal dialysis Status: Chronic Plan: The patient completed her dialysis today but still has significant edema. To continue dialysis tomorrow as per her Tuesday schedule for additional fluid removal also. This was discussed with her. Medication should be adjusted for the patient's ESRD. Avoid gadolinium. (2) Edema of both legs ICD Codes: R60.0 - Localized edema Plan: L>R 2/2 to cellulitis (3) Anemia of renal disease ICD Codes: D63.1 - Anemia in chronic kidney disease Status: Chronic Plan: Epogen for anemia renal disease as ordered. (4) Secondary hyperparathyroidism of renal origin ICD Codes: N25.81 - Secondary hyperparathyroidism of renal origin Plan: Continue Sensipar for secondary hyperparathyroidism of renal disease. (5) Hematoma of groin ICD Codes: S30.1XXA - Contusion of abdominal wall, initial encounter Status: Acute Plan: With probable superimposed cellulitis. ID on case. Now on Zosyn (6) Diabetes mellitus ICD Codes: E11.9 - Type 2 diabetes mellitus without complications Status: Chronic (7) Transaminitis ICD Codes: R74.0 - Nonspecific elevation of levels of transaminase and lactic acid dehydrogenase [LDH] Status: Acute Plan: Repeat LFTs tomorrow Problem Qualifiers (1) Hematoma of groin: Qualified Codes: S30.1XXA - Contusion of abdominal wall, initial encounter (2) Diabetes mellitus: Kimberly Sampson MD Sep 15, 2017 15:13
[2017-09-15 16:00] VITALS: BP_SYST 75; BP_SYST 89; BP_DIAS 42; BP_DIAS 50; PULSE 53; RESP 18; TEMP 98.2; O2SAT 96
--- NOTE | 2017-09-15 19:53 | HHI.PR ---
Subjective Remarks Resting in bed awake alert she is pleasant denied dizziness or lightheadedness despite low blood pressure, she just came from dialysis she had 2 L removed fluid Objective Vitals Vital Signs Date Time Temp Pulse Resp B/P (MAP) Pulse Ox O2 Delivery O2 Flow Rate FiO2 09/15/17 16:00 98.2 53 18 89/42 (58) 96 75/50 (58) 09/15/17 08:00 98.3 55 18 116/56 (76) 92 09/15/17 05:40 98.0 56 16 110/53 (72) 95 09/15/17 00:30 98.0 58 17 115/54 (74) 94 09/14/17 21:00 97.8 56 16 111/52 (71) 94 I/O 09/14/17 09/14/17 09/14/17 09/15/17 09/15/17 09/15/17 07:00 15:00 23:00 07:00 15:00 23:00 Intake Total 0 ml 500 ml Output Total 1800 ml 0 ml 2000 ml Balance -1800 ml 500 ml -2000 ml Intake Oral 0 ml 500 ml Output Urine Total 0 ml 0 ml Hemodialysis 1800 ml 2000 ml # Bowel Movements 1 0 1 1 Result Diagram: 09/15/17 0759 09/15/17 0759 Objective Remarks GENERAL: This is a well-nourished, well-developed patient, in mild distress due to pain in the groin SKIN: No rashes, warm and dry HEAD: Atraumatic. Normocephalic. EYES: Pupils equal round and reactive. Extraocular motions intact. No scleral icterus. ENT: Nose without bleeding, or drainage, Airway patent. NECK: Trachea midline. Supple CARDIOVASCULAR: Regular rate and rhythm without murmurs, gallops, or rubs. RESPIRATORY: Fair air entry bilaterally. No wheezes, rales, or rhonchi. GASTROINTESTINAL: Abdomen soft, non-tender, nondistended. Positive bowel sounds MUSCULOSKELETAL: Right groin hematoma under pressure and gauze along with lower extremity femoropopliteal surgical site and jessika it has been cleaned by the nurse NEUROLOGICAL: Awake and alert. Moves all extremity. Normal speech.no focal neurological deficit Procedures None A/P Problem List: (1) Hematoma of groin ICD Code: S30.1XXA - Contusion of abdominal wall, initial encounter Status: Acute (2) Diabetes mellitus ICD Code: E11.9 - Type 2 diabetes mellitus without complications Status: Chronic (3) ESRD (end stage renal disease) on dialysis ICD Code: N18.6 - End stage renal disease; Z99.2 - Dependence on renal dialysis Status: Chronic (4) Anemia of renal disease ICD Code: D63.1 - Anemia in chronic kidney disease Status: Chronic (5) Sepsis affecting skin ICD Code: A41.9 - Sepsis, unspecified organism Status: Acute (6) Hypoglycemia associated with type 2 diabetes mellitus ICD Code: E11.649 - Type 2 diabetes mellitus with hypoglycemia without coma Status: Resolved Assessment and Plan 72-year-old female with 09/14: Patient just assessed by the surgeon, continue current care with IV antibiotic, monitor growing hematoma, CBC in a.m. 09/15: Blood pressure on the lower side, status post hemodialysis, 2 L has been removed, nonsymptomatic, continue current care, IV antibiotic, BMP in a.m. Follow with severe and ID A/P: 1. Infected left groin hematoma due to Klebsiella. Cellulitis of the left groin as well. Leukocytosis secondary to infection-Trending down Sepsis Currently on Zosyn per infectious disease specialist 2. Left femoral popliteal bypass Appreciate input from Vascular surgery 3.CAD/HTN/Hyperlipidemia Continue with outpatient medications 4. End-stage kidney disease on hemodialysis. HD per Nephrology Continue with electrolyte supplement 5. Transaminitis On admission LFTs within normal limits however now elevated LFTs likely secondary to medication side effect as patient currently on Zosyn Continue to hold statin and monitor LFTs. LFTs trending down 6. DM Start Levemir 10units HS and change to Medium ISS Check HgA1C Problem Qualifiers (1) Hematoma of groin: Qualified Codes: S30.1XXA - Contusion of abdominal wall, initial encounter (2) Diabetes mellitus: Cydney Katz MD Sep 15, 2017 19:53
[2017-09-15 20:00] VITALS: BP 96/52; PULSE 57; RESP 20; TEMP 98.4; O2SAT 94
[2017-09-15] MEDS: EZETIMIBE 10 MG TAB PO SCH (22:02)
[2017-09-15] MEDS: INSULIN DETEMIR 100 UNITS/ML VIAL SQ SCH (22:03)
[2017-09-16 00:29] VITALS: BP 115/55; PULSE 56; RESP 18; TEMP 97.6; O2SAT 95
[2017-09-16] MEDS: PIPERACIL-TAZO 2.25 GM PREMIX 50 ML IV SCH ×3 (02:30→17:33)
[2017-09-16 04:00] VITALS: BP 114/50; PULSE 54; RESP 18; TEMP 99; O2SAT 94
[2017-09-16] MEDS: LEVOTHYROXINE SODIUM 125 MCG TAB PO SCH (06:23)
[2017-09-16] MEDS: ACETAMINOPHEN 325 MG TAB PO PRN ×3 (06:42→19:31)
[2017-09-16] MEDS: SODIUM CHLORIDE 0.9% FLUSH 10 ML FLUSH IV FLUSH SCH ×2 (08:11→23:00)
[2017-09-16] MEDS: INSULIN ASPART SUPPLEMENTAL SCALE SQ SCH ×4 (08:11→23:02)
[2017-09-16] MEDS: DOCUSATE SODIUM 50 MG/SENNA 8.6 MG TAB PO SCH ×2 (08:12→23:00)
[2017-09-16] MEDS: GABAPENTIN 100 MG CAP PO SCH ×3 (08:12→17:37)
[2017-09-16] MEDS: CARVEDILOL 6.25 MG TAB PO SCH ×2 (08:13→23:00)
[2017-09-16] MEDS: CLOPIDOGREL 75 MG TAB PO SCH (08:14)
[2017-09-16] MEDS: CINACALCET HYDROCHLORIDE 30 MG TAB PO SCH (08:14)
[2017-09-16 08:37] VITALS: BP 106/55; PULSE 57; RESP 18; TEMP 98.8; O2SAT 97
[2017-09-16 12:05] VITALS: BP 113/78; PULSE 55; RESP 18; TEMP 97.2; O2SAT 97
--- NOTE | 2017-09-16 15:50 | HHI.IDPN ---
Note Infectious Disease Note Patient continues to have pain in the left groin. Afebrile. Erythema appears slightly decreased. Patient is status post left femoral popliteal bypass for limb-threatening ischemia on 08/30/2017. Started developing severe pain in the left groin on 09/06 and she was brought to the emergency department for evaluation. She was noted to have an area of ecchymosis at the groin and the proximal thigh on the left side. PAST MEDICAL HISTORY: Diabetes mellitus, peripheral vascular disease, hypertension, hyperlipidemia, coronary artery disease, end-stage kidney disease treated with hemodialysis. PAST SURGICAL HISTORY: Appendectomy, cholecystectomy, history of coronary artery bypass graft surgery x2, history of left second toe amputation. ALLERGIES: AMLODIPINE, BUMETANIDE MEDICATIONS: Current Medications Medications (Trade) Dose Ordered Sig/Julius Route PRN Reason Start Time Stop Time Status Last Admin Dose Admin Sodium Chloride (NS Flush) 2 ml UNSCH PRN IV FLUSH FLUSH AFTER USING IV ACCESS 09/07/17 01:30 09/16/17 02:30 Sodium Chloride (NS Flush) 2 ml BID IV FLUSH 09/07/17 09:00 09/16/17 08:11 Acetaminophen (Tylenol) 650 mg Q4H PRN PO TEMP > 100.4 09/07/17 01:30 Ondansetron HCl (Zofran Inj) 4 mg Q6H PRN IVP NAUSEA OR VOMITING 09/07/17 01:30 Naloxone HCl (Narcan Inj) 0.4 mg UNSCH PRN IV PUSH SEE LABEL COMMENTS 09/07/17 01:30 Senna/Docusate Sodium (Lucinda-Colace) 1 tab BID PO 09/07/17 09:00 09/15/17 09:25 Magnesium Hydroxide (Milk Of Magnesia Liq) 30 ml Q12H PRN PO Mild constipation 09/07/17 01:30 Sennosides (Senokot) 17.2 mg Q12H PRN PO Moderate constipation 09/07/17 01:30 Bisacodyl (Dulcolax Supp) 10 mg DAILY PRN RECTAL SEVERE CONSITIPATION 09/07/17 01:30 Lactulose (Lactulose Liq) 30 ml DAILY PRN PO SEVERE CONSITIPATION 09/07/17 01:30 Morphine Sulfate (Morphine Inj) 2 mg Q3H PRN IV PUSH BREAKTHROUGH PAIN 09/07/17 01:30 09/07/17 10:15 Carvedilol (Coreg) 6.25 mg BID PO 09/07/17 09:00 09/14/17 09:13 Cinacalcet (Sensipar) 30 mg DAILY PO 09/07/17 09:00 09/16/17 08:14 Clopidogrel Bisulfate (Plavix) 75 mg DAILY PO 09/07/17 09:00 09/16/17 08:14 Gabapentin (Neurontin) 100 mg TID PO 09/07/17 09:00 09/16/17 12:52 Levothyroxine Sodium (Synthroid) 125 mcg DAILY@0600 PO 09/07/17 06:00 09/16/17 06:23 EZETIMIBE (Zetia) 10 mg HS PO 09/07/17 21:00 09/15/17 22:02 Atorvastatin Calcium (Lipitor) 40 mg HS PO 09/07/17 21:00 Future Hold 09/09/17 22:11 Sodium Chloride 1,000 ml @ 0 mls/hr Q0M PRN OTHER For Prime & Rinse Back 09/07/17 09:42 09/10/17 15:36 Sodium Chloride 1,000 ml @ 200 mls/hr Q5H PRN IV WITH DIALYSIS 09/07/17 09:42 Sodium Chloride 1,000 ml @ 0 mls/hr Q0M PRN OTHER WITH DIALYSIS 09/07/17 09:42 Albumin Human 100 ml @ 60 mls/hr UNSCH PRN IV WITH DIALYSIS 09/07/17 09:45 09/10/17 15:35 Sodium Chloride (NS Flush) 5 ml UNSCH PRN IV FLUSH WITH DIALYSIS 09/07/17 09:45 Heparin Sodium (Porcine) (Heparin Inj) UNSCH PRN .XX WITH DIALYSIS 09/07/17 09:45 Gentamicin Sulfate (Gentamicin Inj) 20 mg UNSCH PRN OTHER WITH DIALYSIS 09/07/17 09:45 Ondansetron HCl (Zofran Inj) 4 mg UNSCH PRN IV PUSH WITH DIALYSIS 09/07/17 09:45 Acetaminophen (Tylenol) 650 mg UNSCH PRN PO for headach, pain, temp > 101F 09/07/17 09:45 09/16/17 15:19 Diphenhydramine HCl (Benadryl) 25 mg UNSCH PRN PO for hives/itching/anaphylaxis 09/07/17 09:45 Nitroglycerin (Nitrostat Sl) 0.4 mg UNSCH PRN SL CHEST PAIN 09/07/17 09:45 Clonidine (Catapres) 0.1 mg UNSCH PRN PO for BP > 180/100 X 2 readings 09/07/17 09:45 Epoetin Dio (Epogen Inj) 8,000 units UNSCH PRN IV PUSH WITH DIALYSIS 09/07/17 09:45 09/10/17 15:35 Gelatin (Gelfoam 12 Mm/7 Mm Top) 1 foam UNSCH PRN TOP SEE LABEL COMMENTS 09/07/17 09:45 09/10/17 15:36 Piperacillin Sod/ Tazobactam Sod 50 ml @ 100 mls/hr Q8H IV 09/08/17 18:00 09/16/17 08:24 Dextrose (D50w (Vial) Inj) 50 ml UNSCH PRN IV PUSH HYPOGLYCEMIA-SEE COMMENTS 09/13/17 11:15 Glucagon (Glucagon Inj) 1 mg UNSCH PRN OTHER HYPOGLYCEMIA-SEE COMMENTS 09/13/17 11:15 Insulin Aspart (NovoLOG SUPPLEMENTAL SCALE) 1 ACHS SLIDING SCALE SQ 09/13/17 12:00 09/16/17 12:52 Insulin Detemir (Levemir Inj) 10 units HS SQ 09/13/17 21:00 09/15/17 22:03 SOCIAL HISTORY: The patient is . No tobacco, no alcohol, no illicit drugs. Review of systems: Negative 10 point review except for pain in the left groin. Objective: Vital Signs Date Time Temp Pulse Resp B/P (MAP) Pulse Ox O2 Delivery O2 Flow Rate FiO2 09/16/17 12:05 97.2 55 18 113/78 (90) 97 09/16/17 08:37 98.8 57 18 106/55 (72) 97 Manual Cuff/Auscultation 09/16/17 04:00 99.0 54 18 114/50 (71) 94 09/16/17 00:29 97.6 56 18 115/55 (75) 95 09/15/17 20:00 98.4 57 20 96/52 (67) 94 09/15/17 16:00 98.2 53 18 89/42 (58) 96 75/50 (58) Laboratory Tests Test 09/15/17 07:59 White Blood Count 12.9 TH/MM3 Red Blood Count 2.69 MIL/MM3 Hemoglobin 8.9 GM/DL Hematocrit 27.7 % Mean Corpuscular Volume 103.0 FL Mean Corpuscular Hemoglobin 33.2 PG Mean Corpuscular Hemoglobin Concent 32.2 % Red Cell Distribution Width 19.7 % Platelet Count 225 TH/MM3 Mean Platelet Volume 7.8 FL Laboratory Tests Test 09/15/17 07:59 Blood Urea Nitrogen 60 MG/DL Creatinine 5.20 MG/DL Random Glucose 220 MG/DL Albumin 2.6 GM/DL Calcium Level 9.5 MG/DL Phosphorus Level 4.9 MG/DL Sodium Level 131 MEQ/L Potassium Level 4.4 MEQ/L Chloride Level 92 MEQ/L Carbon Dioxide Level 25.7 MEQ/L Anion Gap 13 MEQ/L Estimat Glomerular Filtration Rate 8 ML/MIN Imaging: Lower Extremity CT 09/08/17 0000 Signed Impressions: Service Date/Time: August 02:33 - CONCLUSION: No fracture. Postsurgical changes. Marshall Watkins MD Abdomen/Pelvis CT [id number]/06/[id number] Signed Impressions: Service Date/Time: Wednesday, September 06, 2017 20:55 - CONCLUSION: 1. Post surgical changes in the left groin with hematoma. 2. 1.2 cm noncalcified pulmonary nodule in the right lower lobe which is nonspecific. A nonemergent outpatient chest CT is recommended for further evaluation. 3. Cortical atrophy in both kidneys. Efrem Briceño MD Lower Extremity Ultrasound 09/06/17 Signed Impressions: Service Date/Time: Wednesday, September 06, 2017 21:03 - CONCLUSION: Left groin hematoma. Efrem Briceño MD PHYSICAL EXAMINATION: GENERAL: Alert and oriented. No acute distress. HEENT: Extraocular movements grossly intact. Pupils reactive to light. No icterus. Oropharynx moist mucosa without lesions. NECK: Supple without adenopathy. LUNGS: Clear to auscultation. CARDIOVASCULAR: Regular S1 and S2. No murmurs rubs or gallops. ABDOMEN: Bowel sounds present. Soft, no tenderness. EXTREMITIES: The left thigh and left groin has ecchymosis. Blanching erythema at the left thigh is decreased slightly. Serous drainage coming via a small opening at the groove of the groin. The current dressing is saturated. SKIN: No diffuse rash. NEUROLOGIC: Nonfocal. PSYCHIATRIC: Calm and cooperative. IMPRESSION: 1. Infected left groin hematoma due to Klebsiella. Post fem pop bypass with graft. 2. Cellulitis/ecchymosis of the left groin. 3. Leukocytosis secondary to infection. 4. End-stage kidney disease on hemodialysis. RECOMMENDATIONS: 1. Continue piperacillin/tazobactam. Plan on treatment with IV antibiotics until October 07, 2017. 2. Because of her kidney dysfunction and need for hemodialysis, we will not be able to use a PICC line. 3. We may need to put a central line for the IV antibiotics but that would have to be cleared with the forging press setter up. Bernardo Corrales MD Sep 16, 2017 15:50
[2017-09-16 16:42] VITALS: BP 144/60; PULSE 60; RESP 18; TEMP 97.6; O2SAT 97
--- NOTE | 2017-09-16 19:45 | HHI.PR ---
Subjective Remarks Patient reported feeling tired in fatigue I will check the groin hematoma along with a nurse seems to be improving Objective Vitals Vital Signs Date Time Temp Pulse Resp B/P (MAP) Pulse Ox O2 Delivery O2 Flow Rate FiO2 09/16/17 16:42 97.6 60 18 144/60 (88) 97 09/16/17 12:05 97.2 55 18 113/78 (90) 97 09/16/17 08:37 98.8 57 18 106/55 (72) 97 Manual Cuff/Auscultation 09/16/17 04:00 99.0 54 18 114/50 (71) 94 09/16/17 00:29 97.6 56 18 115/55 (75) 95 09/15/17 20:00 98.4 57 20 96/52 (67) 94 I/O 09/15/17 09/15/17 09/15/17 09/16/17 09/16/17 09/16/17 07:00 15:00 23:00 07:00 15:00 23:00 Intake Total 500 ml 680 ml Output Total 0 ml 2000 ml Balance 500 ml -2000 ml 680 ml Intake Oral 500 ml 680 ml Output Urine Total 0 ml Hemodialysis 2000 ml # Voids 0 # Bowel Movements 0 1 1 3 1 Result Diagram: 09/15/17 0759 09/15/17 0759 Objective Remarks GENERAL: This is a well-nourished, well-developed patient, in mild distress due to pain in the groin SKIN: No rashes, warm and dry HEAD: Atraumatic. Normocephalic. EYES: Pupils equal round and reactive. Extraocular motions intact. No scleral icterus. ENT: Nose without bleeding, or drainage, Airway patent. NECK: Trachea midline. Supple CARDIOVASCULAR: Regular rate and rhythm without murmurs, gallops, or rubs. RESPIRATORY: Fair air entry bilaterally. No wheezes, rales, or rhonchi. GASTROINTESTINAL: Abdomen soft, non-tender, nondistended. Positive bowel sounds MUSCULOSKELETAL: Right groin hematoma under pressure and gauze along with lower extremity femoropopliteal surgical site and jessika it has been cleaned by the nurse NEUROLOGICAL: Awake and alert. Moves all extremity. Normal speech.no focal neurological deficit Procedures None A/P Problem List: (1) Hematoma of groin ICD Code: S30.1XXA - Contusion of abdominal wall, initial encounter Status: Acute (2) Diabetes mellitus ICD Code: E11.9 - Type 2 diabetes mellitus without complications Status: Chronic (3) ESRD (end stage renal disease) on dialysis ICD Code: N18.6 - End stage renal disease; Z99.2 - Dependence on renal dialysis Status: Chronic (4) Anemia of renal disease ICD Code: D63.1 - Anemia in chronic kidney disease Status: Chronic (5) Sepsis affecting skin ICD Code: A41.9 - Sepsis, unspecified organism Status: Acute (6) Hypoglycemia associated with type 2 diabetes mellitus ICD Code: E11.649 - Type 2 diabetes mellitus with hypoglycemia without coma Status: Resolved Assessment and Plan 72-year-old female with 09/16: Continue IV antibiotic, follow with ID and CVS A/P: 1. Infected left groin hematoma due to Klebsiella. Cellulitis of the left groin as well. Leukocytosis secondary to infection-Trending down Sepsis Currently on Zosyn per infectious disease specialist 2. Left femoral popliteal bypass Appreciate input from Vascular surgery 3.CAD/HTN/Hyperlipidemia Continue with outpatient medications 4. End-stage kidney disease on hemodialysis. HD per Nephrology Continue with electrolyte supplement 5. Transaminitis On admission LFTs within normal limits however now elevated LFTs likely secondary to medication side effect as patient currently on Zosyn Continue to hold statin and monitor LFTs. LFTs trending down 6. DM Start Levemir 10units HS and change to Medium ISS Check HgA1C Problem Qualifiers (1) Hematoma of groin: Qualified Codes: S30.1XXA - Contusion of abdominal wall, initial encounter (2) Diabetes mellitus: Cdyney Katz MD Sep 16, 2017 19:45
[2017-09-16 21:06] VITALS: BP 130/59; PULSE 63; RESP 18; TEMP 98.2; O2SAT 95
[2017-09-16] MEDS: EZETIMIBE 10 MG TAB PO SCH (22:59)
[2017-09-16] MEDS: INSULIN DETEMIR 100 UNITS/ML VIAL SQ SCH (23:02)
[2017-09-17] MEDS: ACETAMINOPHEN 325 MG TAB PO PRN ×4 (00:06→16:48)
[2017-09-17 00:38] VITALS: BP 105/46; PULSE 60; RESP 18; TEMP 98.5; O2SAT 96
[2017-09-17] MEDS: PIPERACIL-TAZO 2.25 GM PREMIX 50 ML IV SCH ×3 (02:55→18:00)
[2017-09-17 05:13] VITALS: BP 114/53; PULSE 59; RESP 18; TEMP 98.2; O2SAT 96
[2017-09-17] MEDS: LEVOTHYROXINE SODIUM 125 MCG TAB PO SCH (06:02)
[2017-09-17 08:00] VITALS: BP 123/55; PULSE 54; RESP 17; TEMP 97.4; O2SAT 96
[2017-09-17] MEDS: DOCUSATE SODIUM 50 MG/SENNA 8.6 MG TAB PO SCH ×2 (09:00→21:00)
[2017-09-17] MEDS: CARVEDILOL 6.25 MG TAB PO SCH ×2 (09:00→22:01)
[2017-09-17] MEDS: CINACALCET HYDROCHLORIDE 30 MG TAB PO SCH (09:00)
[2017-09-17] MEDS: GABAPENTIN 100 MG CAP PO SCH ×3 (09:08→18:00)
[2017-09-17] MEDS: CLOPIDOGREL 75 MG TAB PO SCH (09:09)
[2017-09-17] MEDS: INSULIN ASPART SUPPLEMENTAL SCALE SQ SCH ×4 (09:10→22:10)
[2017-09-17] MEDS: SODIUM CHLORIDE 0.9% FLUSH 10 ML FLUSH IV FLUSH SCH ×2 (09:10→22:01)
--- NOTE | 2017-09-17 11:48 | HHI.NPPN ---
Subjective History of Present Illness This patient is a 72-year-old female with a history of multiple medical problems including diabetes mellitus, hypertension, end-stage renal disease, anemia renal disease and peripheral vascular disease now recently status post left femoropopliteal bypass after developing subacute occlusion. Ration now presented with pain and noted to have evidence of a hematoma complicating the femoropopliteal bypass. Interval History Pt says she is feeling OK today Refused HD yesterday, but is willing to go today. Apparently D/C planning underway (Ayala Simmons) Review of Systems General Constitutional: Fatigue (Ayala Simmons) Objective Data Data Vital Signs Date Time Temp Pulse Resp B/P (MAP) Pulse Ox O2 Delivery O2 Flow Rate FiO2 09/17/17 08:00 97.4 54 17 123/55 (77) 96 09/17/17 05:13 98.2 59 18 114/53 (73) 96 09/17/17 00:38 98.5 60 18 105/46 (65) 96 09/16/17 21:06 98.2 63 18 130/59 (82) 95 09/16/17 16:42 97.6 60 18 144/60 (88) 97 09/16/17 12:05 97.2 55 18 113/78 (90) 97 (Ayala Simmons) -: 09/15/17 0759 09/15/17 0759 Imaging Last Impressions Lower Extremity CT 09/08/17 0000 Signed Impressions: Service Date/Time: August 02:33 - CONCLUSION: No fracture. Postsurgical changes. Marshall Watkins MD Abdomen/Pelvis CT [id number]/06/172029 Signed Impressions: Service Date/Time: Wednesday, September 06, 2017 20:55 - CONCLUSION: 1. Post surgical changes in the left groin with hematoma. 2. 1.2 cm noncalcified pulmonary nodule in the right lower lobe which is nonspecific. A nonemergent outpatient chest CT is recommended for further evaluation. 3. Cortical atrophy in both kidneys. Efrem Briceño MD Lower Extremity Ultrasound 09/06/17 0000 Signed Impressions: Service Date/Time: Wednesday, September 06, 2017 21:03 - CONCLUSION: Left groin hematoma. Efrem Briceño MD Medication Review Current Medications Medications (Trade) Dose Ordered Sig/Julius Route Start Time Stop Time Status Last Admin (NS Flush) 2 ml UNSCH PRN IV FLUSH 09/07/17 01:30 09/16/17 02:30 (NS Flush) 2 ml BID IV FLUSH 09/07/17 09:00 09/17/17 09:10 (Tylenol) 650 mg Q4H PRN PO 09/07/17 01:30 09/17/17 06:06 (Zofran Inj) 4 mg Q6H PRN IVP 09/07/17 01:30 (Narcan Inj) 0.4 mg UNSCH PRN IV PUSH 09/07/17 01:30 (Lucinda-Colace) 1 tab BID PO 09/07/17 09:00 09/16/17 23:00 (Milk Of Magnesia Liq) 30 ml Q12H PRN PO 09/07/17 01:30 (Senokot) 17.2 mg Q12H PRN PO 09/07/17 01:30 (Dulcolax Supp) 10 mg DAILY PRN RECTAL 09/07/17 01:30 (Lactulose Liq) 30 ml DAILY PRN PO 09/07/17 01:30 (Morphine Inj) 2 mg Q3H PRN IV PUSH 09/07/17 01:30 09/07/17 10:15 (Coreg) 6.25 mg BID PO 09/07/17 09:00 09/16/17 23:00 (Sensipar) 30 mg DAILY PO 09/07/17 09:00 09/17/17 09:00 (Plavix) 75 mg DAILY PO 09/07/17 09:00 09/17/17 09:09 (Neurontin) 100 mg TID PO 09/07/17 09:00 09/17/17 09:08 (Synthroid) 125 mcg DAILY@0600 PO 09/07/17 06:00 09/17/17 06:02 (Zetia) 10 mg HS PO 09/07/17 21:00 09/16/17 22:59 (Lipitor) 40 mg HS PO 09/07/17 21:00 Future Hold 09/09/17 22:11 Sodium Chloride 1,000 ml @ 0 mls/hr Q0M PRN OTHER 09/07/17 09:42 09/10/17 15:36 Sodium Chloride 1,000 ml @ 200 mls/hr Q5H PRN IV 09/07/17 09:42 Sodium Chloride 1,000 ml @ 0 mls/hr Q0M PRN OTHER 09/07/17 09:42 Albumin Human 100 ml @ 60 mls/hr UNSCH PRN IV 09/07/17 09:45 09/10/17 15:35 (NS Flush) 5 ml UNSCH PRN IV FLUSH 09/07/17 09:45 (Heparin Inj) UNSCH PRN .XX 09/07/17 09:45 (Gentamicin Inj) 20 mg UNSCH PRN OTHER 09/07/17 09:45 (Zofran Inj) 4 mg UNSCH PRN IV PUSH 09/07/17 09:45 (Tylenol) 650 mg UNSCH PRN PO 09/07/17 09:45 09/16/17 19:31 (Benadryl) 25 mg UNSCH PRN PO 09/07/17 09:45 (Nitrostat Sl) 0.4 mg UNSCH PRN SL 09/07/17 09:45 (Catapres) 0.1 mg UNSCH PRN PO 09/07/17 09:45 (Epogen Inj) 8,000 units UNSCH PRN IV PUSH 09/07/17 09:45 09/10/17 15:35 (Gelfoam 12 Mm/7 Mm Top) 1 foam UNSCH PRN TOP 09/07/17 09:45 09/10/17 15:36 Piperacillin Sod/ Tazobactam Sod 50 ml @ 100 mls/hr Q8H IV 09/08/17 18:00 09/17/17 11:03 (D50w (Vial) Inj) 50 ml UNSCH PRN IV PUSH 09/13/17 11:15 (Glucagon Inj) 1 mg UNSCH PRN OTHER 09/13/17 11:15 (NovoLOG SUPPLEMENTAL SCALE) 1 ACHS SLIDING SCALE SQ 09/13/17 12:00 09/17/17 09:10 (Levemir Inj) 10 units HS SQ 09/13/17 21:00 09/16/17 23:02 (Ayala Simmons) Physical Exam General Appearance: No Acute Distress (Ayala Simmons) Pulmonary Resp Exam: Clear Bilaterally, Breath Sounds Equal (Ayala Simmons) Cardiology CV Exam: Regular, Normal Sinus Rhythm (Ayala Simmons) Gastrointestinal/Abdomen GI Exam: Soft, Non-Tender (Ayala Simmons) Integumentary Skin Exam: Clear, Warm, Normal Turgor (Ayala Simmons) Extremeties Extremities Exam: Moderate Edema (1+ pitting edema BLE L>R), Pitting Edema (Ayala Simmons) Neurologic Neuro Exam: Alert, Awake (Ayala Simmons) Psychiatric Psych Exam: Appropriate Responses (Ayala Simmons) Assessment/Plan Discussed Condition With: Patient Problem List: (1) ESRD (end stage renal disease) on dialysis ICD Codes: N18.6 - End stage renal disease; Z99.2 - Dependence on renal dialysis Status: Chronic Plan: HD today then resume MWF outpatient schedule Mention of discharge with abx. OK for [facility], but would avoid PICC Will defer this to ID. Discharge planning OK from renal standpoint. CM to arrange for rehab and transportation [facility]. May contact DESTINY Chen or Email Administrator Ling at [phone] if needed. Medication should be adjusted for the patient's ESRD. Avoid gadolinium. (2) Edema of both legs ICD Codes: R60.0 - Localized edema Plan: L>R 2/2 to cellulitis Will improve with HD (3) Anemia of renal disease ICD Codes: D63.1 - Anemia in chronic kidney disease Status: Chronic Plan: Epogen for anemia renal disease as ordered. (4) Secondary hyperparathyroidism of renal origin ICD Codes: N25.81 - Secondary hyperparathyroidism of renal origin Plan: Continue Sensipar for secondary hyperparathyroidism of renal disease. (5) Hematoma of groin ICD Codes: S30.1XXA - Contusion of abdominal wall, initial encounter Status: Acute Plan: With probable superimposed cellulitis. ID on case. Now on Zosyn (6) Diabetes mellitus ICD Codes: E11.9 - Type 2 diabetes mellitus without complications Status: Chronic (7) Transaminitis ICD Codes: R74.0 - Nonspecific elevation of levels of transaminase and lactic acid dehydrogenase [LDH] Status: Acute Plan: Improving (Ayala Simmons) Plan The exam, history, and the medical decision-making described in the above note were completed with the assistance of the RADHA. I reviewed and agree with the findings presented. (Kimberly Sampson MD) Problem Qualifiers (1) Hematoma of groin: Qualified Codes: S30.1XXA - Contusion of abdominal wall, initial encounter (2) Diabetes mellitus: Ayala Simmons Sep 17, 2017 11:48 Kimberly Sampson MD Sep 18, 2017 15:05
[2017-09-17 12:00] VITALS: BP 146/62; PULSE 54; RESP 17; TEMP 97.1; O2SAT 98
[2017-09-17] MEDS: EPOETIN ALFA 10,000 UNITS/ML VIAL IV PUSH PRN (16:49)
[2017-09-17] MEDS: GELATIN 12 MM/7 MM FOAM TOP PRN (16:49)
[2017-09-17] MEDS: SODIUM CHLOR 0.9% 1000 ML INJ 1,000 ML OTHER PRN (16:49)
--- NOTE | 2017-09-17 17:58 | HHI.PR ---
Subjective Remarks Patient resting in bed comfortably she is pleasant, discussed with the nurse seems to be doing better hematoma is improving No fever or chills Objective Vitals Vital Signs Date Time Temp Pulse Resp B/P (MAP) Pulse Ox O2 Delivery O2 Flow Rate FiO2 09/17/17 12:00 97.1 54 17 146/62 (90) 98 09/17/17 08:00 97.4 54 17 123/55 (77) 96 09/17/17 05:13 98.2 59 18 114/53 (73) 96 09/17/17 00:38 98.5 60 18 105/46 (65) 96 09/16/17 21:06 98.2 63 18 130/59 (82) 95 I/O 09/16/17 09/16/17 09/16/17 09/17/17 09/17/17 09/17/17 06:59 14:59 22:59 06:59 14:59 22:59 Intake Total 680 ml Output Total 500 ml Balance 680 ml -500 ml Intake Oral 680 ml Output Urine Total 500 ml # Voids 0 # Bowel Movements 3 1 Result Diagram: 09/15/17 0759 09/15/17 0759 Objective Remarks GENERAL: This is a well-nourished, well-developed patient, in mild distress due to pain in the groin SKIN: No rashes, warm and dry HEAD: Atraumatic. Normocephalic. EYES: Pupils equal round and reactive. Extraocular motions intact. No scleral icterus. ENT: Nose without bleeding, or drainage, Airway patent. NECK: Trachea midline. Supple CARDIOVASCULAR: Regular rate and rhythm without murmurs, gallops, or rubs. RESPIRATORY: Fair air entry bilaterally. No wheezes, rales, or rhonchi. GASTROINTESTINAL: Abdomen soft, non-tender, nondistended. Positive bowel sounds MUSCULOSKELETAL: Right groin hematoma under pressure and gauze along with lower extremity femoropopliteal surgical site and jessika it has been cleaned by the nurse NEUROLOGICAL: Awake and alert. Moves all extremity. Normal speech.no focal neurological deficit Procedures None A/P Problem List: (1) Hematoma of groin ICD Code: S30.1XXA - Contusion of abdominal wall, initial encounter Status: Acute (2) Diabetes mellitus ICD Code: E11.9 - Type 2 diabetes mellitus without complications Status: Chronic (3) ESRD (end stage renal disease) on dialysis ICD Code: N18.6 - End stage renal disease; Z99.2 - Dependence on renal dialysis Status: Chronic (4) Anemia of renal disease ICD Code: D63.1 - Anemia in chronic kidney disease Status: Chronic (5) Sepsis affecting skin ICD Code: A41.9 - Sepsis, unspecified organism Status: Acute (6) Hypoglycemia associated with type 2 diabetes mellitus ICD Code: E11.649 - Type 2 diabetes mellitus with hypoglycemia without coma Status: Resolved Assessment and Plan 72-year-old female with 09/16: Continue IV antibiotic, follow with ID and CVS 09/17: Continue IV antibiotic, awaiting further recommendation by CVS, follow H&H A/P: 1. Infected left groin hematoma due to Klebsiella. Cellulitis of the left groin as well. Leukocytosis secondary to infection-Trending down Sepsis Currently on Zosyn per infectious disease specialist 2. Left femoral popliteal bypass Appreciate input from Vascular surgery 3.CAD/HTN/Hyperlipidemia Continue with outpatient medications 4. End-stage kidney disease on hemodialysis. HD per Nephrology Continue with electrolyte supplement 5. Transaminitis On admission LFTs within normal limits however now elevated LFTs likely secondary to medication side effect as patient currently on Zosyn Continue to hold statin and monitor LFTs. LFTs trending down 6. DM Start Levemir 10units HS and change to Medium ISS Check HgA1C Problem Qualifiers (1) Hematoma of groin: Qualified Codes: S30.1XXA - Contusion of abdominal wall, initial encounter (2) Diabetes mellitus: Cydney Katz MD Sep 17, 2017 17:58
[2017-09-17] MEDS: EZETIMIBE 10 MG TAB PO SCH (22:01)
[2017-09-17] MEDS: INSULIN DETEMIR 100 UNITS/ML VIAL SQ SCH (22:04)
[2017-09-18] MEDS: PIPERACIL-TAZO 2.25 GM PREMIX 50 ML IV SCH ×3 (01:14→17:35)
[2017-09-18] MEDS: ACETAMINOPHEN 325 MG TAB PO PRN ×4 (03:37→21:38)
[2017-09-18] MEDS: LEVOTHYROXINE SODIUM 125 MCG TAB PO SCH (06:09)
[2017-09-18 08:00] VITALS: BP 103/48; PULSE 61; RESP 18; TEMP 98.4; O2SAT 97
[2017-09-18 08:09] LABS: HEMATOCRIT 28.1 % (35.0-46.0); HEMOGLOBIN 9.2 GM/DL (11.6-15.3); MEAN CELL VOLUME 100.9 FL (80.0-100.0); MEAN CORPUSCULAR HEMOGLOBIN 33.1 PG (27.0-34.0); MEAN CORPUSCULAR HGB CONC 32.8 % (32.0-36.0); MEAN PLATELET VOLUME 8.1 FL (7.0-11.0); PLATELET COUNT 254 TH/MM3 (150-450); RED BLOOD COUNT 2.78 MIL/MM3 (4.00-5.30); RED CELL DISTRIBUTION WIDTH 19.1 % (11.6-17.2); WHITE BLOOD COUNT 10.7 TH/MM3 (4.0-11.0)
[2017-09-18 08:50] LABS: ALBUMIN 2.2 GM/DL (3.4-5.0); BICARBONATE 27.6 MEQ/L (21.0-32.0); CALCIUM 9.3 MG/DL (8.5-10.1); CREATININE 4.55 MG/DL (0.50-1.00); PHOSPHORUS 4.4 MG/DL (2.5-4.9)
[2017-09-18] MEDS: CARVEDILOL 6.25 MG TAB PO SCH ×2 (09:00→19:38)
[2017-09-18] MEDS: CINACALCET HYDROCHLORIDE 30 MG TAB PO SCH (09:03)
[2017-09-18] MEDS: INSULIN ASPART SUPPLEMENTAL SCALE SQ SCH ×4 (09:04→19:51)
[2017-09-18] MEDS: SODIUM CHLORIDE 0.9% FLUSH 10 ML FLUSH IV FLUSH SCH ×2 (09:04→19:39)
[2017-09-18] MEDS: CLOPIDOGREL 75 MG TAB PO SCH (09:04)
[2017-09-18] MEDS: DOCUSATE SODIUM 50 MG/SENNA 8.6 MG TAB PO SCH ×2 (09:04→19:38)
[2017-09-18] MEDS: GABAPENTIN 100 MG CAP PO SCH (09:04)
[2017-09-18 12:00] VITALS: BP 123/51; PULSE 70; RESP 18; TEMP 97.5; O2SAT 98
--- NOTE | 2017-09-18 14:14 | HHI.PR ---
Subjective Remarks Patient pleasant resting in bed, at the bedside, he just had a bowel movement. No acute complaints she has seen by nephrology, ID recommended Kerwin until October 07, she will need central line Objective Vitals Vital Signs Date Time Temp Pulse Resp B/P (MAP) Pulse Ox O2 Delivery O2 Flow Rate FiO2 09/18/17 12:00 97.5 70 18 123/51 (75) 98 09/18/17 08:00 98.4 61 18 103/48 (66) 97 I/O 09/17/17 09/17/17 09/17/17 09/18/17 09/18/17 09/18/17 07:00 15:00 23:00 07:00 15:00 23:00 Intake Total 120 ml 110 ml Output Total 500 ml Balance -500 ml 120 ml 110 ml Intake Oral 120 ml 60 ml IV Total 50 ml Output Urine Total 500 ml # Bowel Movements 1 1 Result Diagram: 09/18/17 0730 09/18/17 0730 Objective Remarks GENERAL: This is a well-nourished, well-developed patient, in mild distress due to pain in the groin SKIN: No rashes, warm and dry HEAD: Atraumatic. Normocephalic. EYES: Pupils equal round and reactive. Extraocular motions intact. No scleral icterus. ENT: Nose without bleeding, or drainage, Airway patent. NECK: Trachea midline. Supple CARDIOVASCULAR: Regular rate and rhythm without murmurs, gallops, or rubs. RESPIRATORY: Fair air entry bilaterally. No wheezes, rales, or rhonchi. GASTROINTESTINAL: Abdomen soft, non-tender, nondistended. Positive bowel sounds MUSCULOSKELETAL: Right groin hematoma under pressure and gauze along with lower extremity femoropopliteal surgical site and jessika it has been cleaned by the nurse NEUROLOGICAL: Awake and alert. Moves all extremity. Normal speech.no focal neurological deficit Procedures None A/P Problem List: (1) Hematoma of groin ICD Code: S30.1XXA - Contusion of abdominal wall, initial encounter Status: Acute (2) Diabetes mellitus ICD Code: E11.9 - Type 2 diabetes mellitus without complications Status: Chronic (3) ESRD (end stage renal disease) on dialysis ICD Code: N18.6 - End stage renal disease; Z99.2 - Dependence on renal dialysis Status: Chronic (4) Anemia of renal disease ICD Code: D63.1 - Anemia in chronic kidney disease Status: Chronic (5) Sepsis affecting skin ICD Code: A41.9 - Sepsis, unspecified organism Status: Acute (6) Hypoglycemia associated with type 2 diabetes mellitus ICD Code: E11.649 - Type 2 diabetes mellitus with hypoglycemia without coma Status: Resolved Assessment and Plan 72-year-old female with 09/18: Stable, seen by nephrology will need to continue IV antibiotic Zosyn until October 07 per ID, who did not recommend PICC line may need central line if okay with renal A/P: 1. Infected left groin hematoma due to Klebsiella. Cellulitis of the left groin as well. Leukocytosis secondary to infection-Trending down Sepsis Currently on Zosyn per infectious disease specialist 2. Left femoral popliteal bypass Appreciate input from Vascular surgery 3.CAD/HTN/Hyperlipidemia Continue with outpatient medications 4. End-stage kidney disease on hemodialysis. HD per Nephrology Continue with electrolyte supplement 5. Transaminitis On admission LFTs within normal limits however now elevated LFTs likely secondary to medication side effect as patient currently on Zosyn Continue to hold statin and monitor LFTs. LFTs trending down 6. DM Start Levemir 10units HS and change to Medium ISS Check HgA1C Problem Qualifiers (1) Hematoma of groin: Qualified Codes: S30.1XXA - Contusion of abdominal wall, initial encounter (2) Diabetes mellitus: Cydney Katz MD Sep 18, 2017 14:14
[2017-09-18] MEDS: EZETIMIBE 10 MG TAB PO SCH (19:38)
[2017-09-18] MEDS: INSULIN DETEMIR 100 UNITS/ML VIAL SQ SCH (19:51)
[2017-09-18 20:00] VITALS: BP 112/57; PULSE 61; RESP 18; TEMP 97.9; O2SAT 96
[2017-09-19] VITALS: BP 115/53; PULSE 67; RESP 18; TEMP 97.6; O2SAT 96
[2017-09-19] MEDS: PIPERACIL-TAZO 2.25 GM PREMIX 50 ML IV SCH ×3 (01:42→17:11)
[2017-09-19] MEDS: ACETAMINOPHEN 325 MG TAB PO PRN ×5 (01:47→21:49)
[2017-09-19 04:00] VITALS: BP 114/33; PULSE 55; RESP 18; TEMP 98.2; O2SAT 95
[2017-09-19] MEDS: LEVOTHYROXINE SODIUM 125 MCG TAB PO SCH (06:00)
[2017-09-19 08:00] VITALS: BP 127/60; PULSE 57; RESP 18; TEMP 97.5; O2SAT 100
[2017-09-19] MEDS: CINACALCET HYDROCHLORIDE 30 MG TAB PO SCH (08:43)
[2017-09-19] MEDS: DOCUSATE SODIUM 50 MG/SENNA 8.6 MG TAB PO SCH ×2 (08:44→21:00)
[2017-09-19] MEDS: CLOPIDOGREL 75 MG TAB PO SCH (08:44)
[2017-09-19] MEDS: GABAPENTIN 100 MG CAP PO SCH (08:45)
[2017-09-19] MEDS: CARVEDILOL 6.25 MG TAB PO SCH ×2 (08:47→21:00)
[2017-09-19] MEDS: SODIUM CHLORIDE 0.9% FLUSH 10 ML FLUSH IV FLUSH SCH ×2 (08:48→21:42)
[2017-09-19] MEDS: INSULIN ASPART SUPPLEMENTAL SCALE SQ SCH ×5 (08:54→21:45)
--- NOTE | 2017-09-19 11:16 | HHI.NPPN ---
Subjective History of Present Illness This patient is a 72-year-old female with a history of multiple medical problems including diabetes mellitus, hypertension, end-stage renal disease, anemia renal disease and peripheral vascular disease now recently status post left femoropopliteal bypass after developing subacute occlusion. Ration now presented with pain and noted to have evidence of a hematoma complicating the femoropopliteal bypass. Interval History Patient was seen during dialysis today. Appears to be tolerating the treatment well. Indicating to me that she has difficulty voiding and has not done so in about 2 days. Review of Systems General Constitutional: Fatigue Objective Data Data 09/19/17 09/20/17 19:00 07:00 # Bowel Movements 1 Vital Signs Date Time Temp Pulse Resp B/P (MAP) Pulse Ox O2 Delivery O2 Flow Rate FiO2 09/19/17 08:00 97.5 57 18 127/60 (82) 100 09/19/17 04:00 98.2 55 18 114/33 (60) 95 09/19/17 00:00 97.6 67 18 115/53 (73) 96 09/18/17 20:00 97.9 61 18 112/57 (75) 96 09/18/17 12:00 97.5 70 18 123/51 (75) 98 -: 09/18/17 0730 09/18/17 0730 Physical Exam General Appearance: No Acute Distress Pulmonary Resp Exam: Clear Bilaterally, Breath Sounds Equal Cardiology CV Exam: Regular, Normal Sinus Rhythm Gastrointestinal/Abdomen GI Exam: Soft, Non-Tender Integumentary Skin Exam: Clear, Warm, Normal Turgor Extremeties Extremities Exam: Moderate Edema (1+ pitting edema BLE L>R), Pitting Edema Neurologic Neuro Exam: Alert, Awake Psychiatric Psych Exam: Appropriate Responses Assessment/Plan Discussed Condition With: Patient Problem List: (1) ESRD (end stage renal disease) on dialysis ICD Codes: N18.6 - End stage renal disease; Z99.2 - Dependence on renal dialysis Status: Chronic Plan: Unfortunately patient not being too cooperative as far as doing extra dialysis sessions to try and improve her edema refusing to come down for treatments when extra treatment ordered. We will attempt ultrafiltration of about 1968-6912 mL's today with albumin. Straight cath bladder ordered today per patient's request in view of symptoms of retention. If persisting may need urological opinion. Mention of discharge with abx. OK becca Purdy but would avoid PICC Will defer this to ID. Discharge planning OK from renal standpoint. CM to arrange for rehab and transportation to [facility]. May contact DESTINY Chen or [facility] at [phone] if needed. Medication should be adjusted for the patient's ESRD. Avoid gadolinium. (2) Edema of both legs ICD Codes: R60.0 - Localized edema Plan: Difficulty managing same because of patient's noncompliance with extra dialysis sessions. (3) Anemia of renal disease ICD Codes: D63.1 - Anemia in chronic kidney disease Status: Chronic Plan: Epogen for anemia renal disease as ordered. (4) Secondary hyperparathyroidism of renal origin ICD Codes: N25.81 - Secondary hyperparathyroidism of renal origin Plan: Continue Sensipar for secondary hyperparathyroidism of renal disease. (5) Hematoma of groin ICD Codes: S30.1XXA - Contusion of abdominal wall, initial encounter Status: Acute Plan: With probable superimposed cellulitis. ID on case. Now on Zosyn (6) Diabetes mellitus ICD Codes: E11.9 - Type 2 diabetes mellitus without complications Status: Chronic Problem Qualifiers (1) Hematoma of groin: Qualified Codes: S30.1XXA - Contusion of abdominal wall, initial encounter (2) Diabetes mellitus: Kimberly Sampson MD Sep 19, 2017 11:16
[2017-09-19] MEDS: EPOETIN ALFA 10,000 UNITS/ML VIAL IV PUSH PRN (12:06)
[2017-09-19] MEDS: GELATIN 12 MM/7 MM FOAM TOP PRN (12:06)
--- NOTE | 2017-09-19 14:59 | HHI.IDPN ---
Note Infectious Disease Note Patient feels pressure in the left groin. Pain has decreased. Afebrile. Erythema at the left thigh has decreased. Denies chills. Patient is status post left femoral popliteal bypass for limb-threatening ischemia on 08/30/2017. Started developing severe pain in the left groin on 09/06 and she was brought to the emergency department for evaluation. She was noted to have an area of ecchymosis at the groin and the proximal thigh on the left side. PAST MEDICAL HISTORY: Diabetes mellitus, peripheral vascular disease, hypertension, hyperlipidemia, coronary artery disease, end-stage kidney disease treated with hemodialysis. PAST SURGICAL HISTORY: Appendectomy, cholecystectomy, history of coronary artery bypass graft surgery x2, history of left second toe amputation. ALLERGIES: AMLODIPINE, BUMETANIDE MEDICATIONS: Current Medications Medications (Trade) Dose Ordered Sig/Julius Route PRN Reason Start Time Stop Time Status Last Admin Dose Admin Sodium Chloride (NS Flush) 2 ml UNSCH PRN IV FLUSH FLUSH AFTER USING IV ACCESS 09/07/17 01:30 09/16/17 02:30 Sodium Chloride (NS Flush) 2 ml BID IV FLUSH 09/07/17 09:00 09/19/17 08:48 Acetaminophen (Tylenol) 650 mg Q4H PRN PO TEMP > 100.4 09/07/17 01:30 09/17/17 16:48 Ondansetron HCl (Zofran Inj) 4 mg Q6H PRN IVP NAUSEA OR VOMITING 09/07/17 01:30 Naloxone HCl (Narcan Inj) 0.4 mg UNSCH PRN IV PUSH SEE LABEL COMMENTS 09/07/17 01:30 Senna/Docusate Sodium (Lucinda-Colace) 1 tab BID PO 09/07/17 09:00 09/19/17 08:44 Magnesium Hydroxide (Milk Of Magnesia Liq) 30 ml Q12H PRN PO Mild constipation 09/07/17 01:30 Sennosides (Senokot) 17.2 mg Q12H PRN PO Moderate constipation 09/07/17 01:30 Bisacodyl (Dulcolax Supp) 10 mg DAILY PRN RECTAL SEVERE CONSITIPATION 09/07/17 01:30 Lactulose (Lactulose Liq) 30 ml DAILY PRN PO SEVERE CONSITIPATION 09/07/17 01:30 Morphine Sulfate (Morphine Inj) 2 mg Q3H PRN IV PUSH BREAKTHROUGH PAIN 09/07/17 01:30 09/07/17 10:15 Carvedilol (Coreg) 6.25 mg BID PO 09/07/17 09:00 09/18/17 19:38 Cinacalcet (Sensipar) 30 mg DAILY PO 09/07/17 09:00 09/19/17 08:43 Clopidogrel Bisulfate (Plavix) 75 mg DAILY PO 09/07/17 09:00 09/19/17 08:44 Levothyroxine Sodium (Synthroid) 125 mcg DAILY@0600 PO 09/07/17 06:00 09/19/17 06:00 EZETIMIBE (Zetia) 10 mg HS PO 09/07/17 21:00 09/18/17 19:38 Atorvastatin Calcium (Lipitor) 40 mg HS PO 09/07/17 21:00 Future Hold 09/09/17 22:11 Sodium Chloride 1,000 ml @ 0 mls/hr Q0M PRN OTHER For Prime & Rinse Back 09/07/17 09:42 09/17/17 16:49 Sodium Chloride 1,000 ml @ 200 mls/hr Q5H PRN IV WITH DIALYSIS 09/07/17 09:42 Sodium Chloride 1,000 ml @ 0 mls/hr Q0M PRN OTHER WITH DIALYSIS 09/07/17 09:42 Albumin Human 100 ml @ 60 mls/hr UNSCH PRN IV WITH DIALYSIS 09/07/17 09:45 09/10/17 15:35 Sodium Chloride (NS Flush) 5 ml UNSCH PRN IV FLUSH WITH DIALYSIS 09/07/17 09:45 Heparin Sodium (Porcine) (Heparin Inj) UNSCH PRN .XX WITH DIALYSIS 09/07/17 09:45 Gentamicin Sulfate (Gentamicin Inj) 20 mg UNSCH PRN OTHER WITH DIALYSIS 09/07/17 09:45 Ondansetron HCl (Zofran Inj) 4 mg UNSCH PRN IV PUSH WITH DIALYSIS 09/07/17 09:45 Acetaminophen (Tylenol) 650 mg UNSCH PRN PO for headach, pain, temp > 101F 09/07/17 09:45 09/19/17 12:06 Diphenhydramine HCl (Benadryl) 25 mg UNSCH PRN PO for hives/itching/anaphylaxis 09/07/17 09:45 Nitroglycerin (Nitrostat Sl) 0.4 mg UNSCH PRN SL CHEST PAIN 09/07/17 09:45 Clonidine (Catapres) 0.1 mg UNSCH PRN PO for BP > 180/100 X 2 readings 09/07/17 09:45 Epoetin Dio (Epogen Inj) 8,000 units UNSCH PRN IV PUSH WITH DIALYSIS 09/07/17 09:45 09/19/17 12:06 Gelatin (Gelfoam 12 Mm/7 Mm Top) 1 foam UNSCH PRN TOP SEE LABEL COMMENTS 09/07/17 09:45 09/19/17 12:06 Piperacillin Sod/ Tazobactam Sod 50 ml @ 100 mls/hr Q8H IV 09/08/17 18:00 09/19/17 09:31 Dextrose (D50w (Vial) Inj) 50 ml UNSCH PRN IV PUSH HYPOGLYCEMIA-SEE COMMENTS 09/13/17 11:15 Glucagon (Glucagon Inj) 1 mg UNSCH PRN OTHER HYPOGLYCEMIA-SEE COMMENTS 09/13/17 11:15 Insulin Aspart (NovoLOG SUPPLEMENTAL SCALE) 1 ACHS SLIDING SCALE SQ 09/13/17 12:00 09/19/17 08:54 Insulin Detemir (Levemir Inj) 10 units HS SQ 09/13/17 21:00 09/18/17 19:51 Gabapentin (Neurontin) 100 mg DAILY PO 09/19/17 09:00 09/19/17 08:45 Objective: Vital Signs Date Time Temp Pulse Resp B/P (MAP) Pulse Ox O2 Delivery O2 Flow Rate FiO2 09/19/17 08:00 97.5 57 18 127/60 (82) 100 09/19/17 04:00 98.2 55 18 114/33 (60) 95 09/19/17 00:00 97.6 67 18 115/53 (73) 96 09/18/17 20:00 97.9 61 18 112/57 (75) 96 Laboratory Tests Test 09/18/17 07:30 White Blood Count 10.7 TH/MM3 Red Blood Count 2.78 MIL/MM3 Hemoglobin 9.2 GM/DL Hematocrit 28.1 % Mean Corpuscular Volume 100.9 FL Mean Corpuscular Hemoglobin 33.1 PG Mean Corpuscular Hemoglobin Concent 32.8 % Red Cell Distribution Width 19.1 % Platelet Count 254 TH/MM3 Mean Platelet Volume 8.1 FL Laboratory Tests Test 09/18/17 07:30 Blood Urea Nitrogen 43 MG/DL Creatinine 4.55 MG/DL Random Glucose 255 MG/DL Albumin 2.2 GM/DL Calcium Level 9.3 MG/DL Phosphorus Level 4.4 MG/DL Sodium Level 135 MEQ/L Potassium Level 3.5 MEQ/L Chloride Level 96 MEQ/L Carbon Dioxide Level 27.6 MEQ/L Anion Gap 11 MEQ/L Estimat Glomerular Filtration Rate 9 ML/MIN Imaging: Lower Extremity CT 09/08/17 Signed Impressions: Service Date/Time: August 02:33 - CONCLUSION: No fracture. Postsurgical changes. Marshall Watkins MD Abdomen/Pelvis CT [id number] Signed Impressions: Service Date/Time: Wednesday, September 06, 2017 20:55 - CONCLUSION: 1. Post surgical changes in the left groin with hematoma. 2. 1.2 cm noncalcified pulmonary nodule in the right lower lobe which is nonspecific. A nonemergent outpatient chest CT is recommended for further evaluation. 3. Cortical atrophy in both kidneys. Efrem Briceño MD Lower Extremity Ultrasound 09/06/17 Signed Impressions: Service Date/Time: Wednesday, September 06, 2017 21:03 - CONCLUSION: Left groin hematoma. Efrem Briceño MD Lower Extremity CT 09/08/17 Signed Impressions: Service Date/Time: August 02:33 - CONCLUSION: No fracture. Postsurgical changes. Marshall Watkins MD Abdomen/Pelvis CT [id number] Signed Impressions: Service Date/Time: Wednesday, September 06, 2017 20:55 - CONCLUSION: 1. Post surgical changes in the left groin with hematoma. 2. 1.2 cm noncalcified pulmonary nodule in the right lower lobe which is nonspecific. A nonemergent outpatient chest CT is recommended for further evaluation. 3. Cortical atrophy in both kidneys. Efrem Briceño MD Lower Extremity Ultrasound 09/06/17 Signed Impressions: Service Date/Time: Wednesday, September 06, 2017 21:03 - CONCLUSION: Left groin hematoma. Efrem Briceño MD PHYSICAL EXAMINATION: GENERAL: Alert and oriented. No acute distress. HEENT: No icterus. Oropharynx moist mucosa without lesions. NECK: Supple without adenopathy. LUNGS: Clear to auscultation. CARDIOVASCULAR: Regular S1 and S2. No murmurs rubs or gallops. ABDOMEN: Bowel sounds present. Soft, no tenderness. EXTREMITIES: The left thigh and left groin erythema and ecchymosis has decreased. Serous drainage on the dressing. 2+ edema at the upper thigh. Little serous drainage from the left distal thigh incision. SKIN: No diffuse rash. NEUROLOGIC: Nonfocal. PSYCHIATRIC: Calm and cooperative. IMPRESSION: 1. Infected left groin hematoma due to Klebsiella. Post fem pop bypass with graft. 2. Cellulitis/ecchymosis of the left groin. 3. Leukocytosis secondary to infection. WBC is down to normal. 4. End-stage kidney disease on hemodialysis. RECOMMENDATIONS: 1. Continue piperacillin/tazobactam. Plan on treatment with IV antibiotics until October 07, 2017. After completion of the IV antibiotics she may need to be placed on oral antibiotics. Arrange follow-up with infectious disease physician outpatient in 1 week. 2. Purdy ordered for IV antibiotics. 3. Okay to arrange for transfer to rehab and continue the antibiotics at rehab. Case management to arrange for antibiotics. Orders written for antibiotics and also for the Purdy. Discussed with patient and her . Bernardo Corrales MD Sep 19, 2017 14:58
--- NOTE | 2017-09-19 15:02 | HHI.FF ---
Infusion Therapy Location of Infusion Therapy: [facility] Infusion Therapy Order Patient Information Patient Weight 119.5 kg Diagnosis: (1) Groin hematoma Diagnosis Infected groin hematoma - Klebsiella. Coded Allergies: amlodipine (Unverified Allergy, Severe, 01/11/17) bumetanide (Unverified Allergy, Severe, 01/11/17) PT STATES NOT ALLERGIC Administer Medication Piperacillin/Tazobactam q 8 hours 2.2grams IV Stop Treatment: October 07, 2017 Additional Information Venous access: Tunneled Catheter Additional Instructions [x] Peripheral flush and dressing changes per protocol [x] Implanted port and central personal lines account manager: * Implanted port: 10 ml Normal Saline followed by 5 ml Heparin 100 units/ml Heparin flush after each use and monthly to maintain. [] May leave port accessed during therapy. [] May leave peripheral site accessed for duration of therapy. [x] If patient has SOB or respiratory distress, check oxygen saturation. If less than 90% or clinical signs of respiratory distress, administer oxygen at 2 L/min. via nasal cannula and notify physician. [x] Anaphylaxis/Reaction orders: * Stop infusion. * Keep IV line open with saline flush. * Notify physician. * Monitor vital signs every 15 minutes until symptoms resolve. * Check Oxygen saturation; Oxygen at 2 L/min. via nasal cannula if less than 90% or clinical signs of respiratory distress. * Administer diphenhydramine (Benadryl) 25 mg IV STAT, (unless patient has received as pre-med). May repeat once, if necessary. * Solu-Cortef 250 mg IVP over 30-60 seconds, use 100 mg vials for each dissolution. * Epinephrine (1mg/1 ml) 0.3 mg subcutaneously or IVP now with any signs of respiratory distress. * Check with physician for new additional pre-med orders if patient is re- challenged or re-treated. [x] May remove PICC line when treatment complete, after confirming with Physician. [x] If the patient is admitted to the hospital, the ED, or transferred via [facility] , complete transfer form including medication reconciliation order sheet. Laboratory Tests Additional Information Follow up with Dr Paula Hughes in 1 week. Bernardo Corrales MD Sep 19, 2017 15:02
[2017-09-19 16:00] VITALS: BP 129/58; PULSE 66; RESP 18; TEMP 97.8; O2SAT 98
--- NOTE | 2017-09-19 16:08 | PD.CONS ---
HPI Service Urology Consult Requested By Dr Katz Reason for Consult Urinary retention Primary Care Physician Anila (Garret) MD [place] Diagnosis: (1) Hematoma of groin ICD Code: S30.1XXA - Contusion of abdominal wall, initial encounter (2) Diabetes mellitus ICD Code: E11.9 - Type 2 diabetes mellitus without complications (3) ESRD (end stage renal disease) on dialysis ICD Code: N18.6 - End stage renal disease; Z99.2 - Dependence on renal dialysis (4) Anemia of renal disease ICD Code: D63.1 - Anemia in chronic kidney disease (5) Sepsis affecting skin ICD Code: A41.9 - Sepsis, unspecified organism (6) Hypoglycemia associated with type 2 diabetes mellitus ICD Code: E11.649 - Type 2 diabetes mellitus with hypoglycemia without coma History of Present Illness 72y.o F with a history of multiple medical problems including diabetes mellitus , hypertension, end-stage renal disease, anemia renal disease and peripheral vascular disease. She is status post left femoropopliteal bypass after developing subacute occlusion. She presented with pain and noted to have evidence of a hematoma complicating the femoropopliteal bypass She is on dialysis and recently told [employer] that has difficulties to pass urine. She states that usually at home has some hesitancy too but here for the past few days because of her groin /genital swelling post surgery its more difficult to pass urine and uncomfortable. She is on str cath, today 700cc was drain, she had previous catheterization a few days ago. She also mentioned that voids on days when has no dialysis Review of Systems Except as stated in HPI: all other systems reviewed are Neg Past Family Social History Past Medical History Diabetes mellitus End-stage renal disease on dialysis Tuesday Peripheral vascular disease Hypertension Hyperlipidemia Coronary artery disease Past Surgical History Appendectomy Cholecystectomy CABG 3 Left second toe amputation Femoral-popliteal bypass with femoral endarterectomy Allergies: Coded Allergies: amlodipine (Unverified Allergy, Severe, 01/11/17) bumetanide (Unverified Allergy, Severe, 01/11/17) PT STATES NOT ALLERGIC Family History Father with cardiac disease Social History Negative for alcohol, tobacco and illicit drugs Physical Exam Vital Signs Date Time Temp Pulse Resp B/P (MAP) Pulse Ox O2 Delivery O2 Flow Rate FiO2 09/19/17 08:00 97.5 57 18 127/60 (82) 100 4/23/18 04:00 98.2 55 18 114/33 (60) 95 09/19/17 00:00 97.6 67 18 115/53 (73) 96 09/18/17 20:00 97.9 61 18 112/57 (75) 96 Physical Exam GENERAL: This is a well-nourished, well-developed patient, in no apparent distress. CARDIOVASCULAR: Regular rate and rhythm without murmurs, gallops, or rubs. RESPIRATORY: Clear to auscultation. Breath sounds equal bilaterally. No wheezes , rales, or rhonchi. GASTROINTESTINAL: Abdomen soft, non-tender, nondistended. GENITOURINARY: Bladder not distended MUSCULOSKELETAL: Gait not assessed NEUROLOGICAL: Awake and alert. Lab results reviewed: Yes Date/Time Source Procedure Growth Status 09/07/17 13:30 Wound Groin Gram Stain - Final Complete 09/07/17 13:30 Wound Culture - Final Klebsiella Pneumoniae Complete Result Diagram: 09/18/17 0730 09/18/17 0730 Personally reviewed images: Yes Imaging Last Impressions Lower Extremity CT 09/08/17 0000 Signed Impressions: Service Date/Time: August 02:33 - CONCLUSION: No fracture. Postsurgical changes. Marshall Watkins MD Abdomen/Pelvis CT 09/06/172029 Signed Impressions: Service Date/Time: Wednesday, September 06, 2017 20:55 - CONCLUSION: 1. Post surgical changes in the left groin with hematoma. 2. 1.2 cm noncalcified pulmonary nodule in the right lower lobe which is nonspecific. A nonemergent outpatient chest CT is recommended for further evaluation. 3. Cortical atrophy in both kidneys. Efrem Briceño MD Lower Extremity Ultrasound 09/06/17 0000 Signed Impressions: Service Date/Time: Wednesday, September 06, 2017 21:03 - CONCLUSION: Left groin hematoma. Efrem Briceño MD Assessment and Plan Assessment and Plan 72 y.o F with above history. urology consulted for possible urinary retention. PT has ESRD and is getting dialysis - Continue care as per primary team and Other consulting teams - No acute intervention needed - If pt c/o inability to void, perform bladder scan, if retains > 250cc place abbott or drain by doing str cath - Flomax daily may help - Send urine for UC to r/o infection - Pt will need to see as outpt if continues to retain urine Urology remains available as needed Discussed Condition With Discussed with Dr Klaudia HELTON attending who agrees with this plan Problem Qualifiers (1) Hematoma of groin: Qualified Codes: S30.1XXA - Contusion of abdominal wall, initial encounter (2) Diabetes mellitus: Tate Redding Sep 19, 2017 16:08
--- NOTE | 2017-09-19 19:09 | HHI.PR ---
Subjective Remarks Patient seen in hemodialysis, slightly tired, no acute issue afebrile Complaint of urinary retention, nephrology recommended urology consultation, nephrology recommended Purdy for IV antibiotic at discharge we will hold Plavix need 5 days holding for Purdy placement Objective Vitals Vital Signs Date Time Temp Pulse Resp B/P (MAP) Pulse Ox O2 Delivery O2 Flow Rate FiO2 09/19/17 16:00 97.8 66 18 129/58 (81) 98 09/19/17 08:00 97.5 57 18 127/60 (82) 100 09/19/17 04:00 98.2 55 18 114/33 (60) 95 09/19/17 00:00 97.6 67 18 115/53 (73) 96 09/18/17 20:00 97.9 61 18 112/57 (75) 96 I/O 09/18/17 09/18/17 09/18/17 09/19/17 09/19/17 09/19/17 07:00 15:00 23:00 07:00 15:00 23:00 Intake Total 110 ml 60 ml 50 ml 480 ml Output Total 3500 ml Balance 110 ml 60 ml 50 ml -3500 ml 480 ml Intake Oral 60 ml 60 ml 480 ml IV Total 50 ml 50 ml Hemodialysis 3500 ml # Bowel Movements 1 1 1 Result Diagram: 09/18/1772909/18/17729 Objective Remarks GENERAL: This is a well-nourished, well-developed patient, in mild distress due to pain in the groin SKIN: No rashes, warm and dry HEAD: Atraumatic. Normocephalic. EYES: Pupils equal round and reactive. Extraocular motions intact. No scleral icterus. ENT: Nose without bleeding, or drainage, Airway patent. NECK: Trachea midline. Supple CARDIOVASCULAR: Regular rate and rhythm without murmurs, gallops, or rubs. RESPIRATORY: Fair air entry bilaterally. No wheezes, rales, or rhonchi. GASTROINTESTINAL: Abdomen soft, non-tender, nondistended. Positive bowel sounds MUSCULOSKELETAL: Right groin hematoma under pressure and gauze along with lower extremity femoropopliteal surgical site and jessika it has been cleaned by the nurse NEUROLOGICAL: Awake and alert. Moves all extremity. Normal speech.no focal neurological deficit Procedures None A/P Problem List: (1) Hematoma of groin ICD Code: S30.1XXA - Contusion of abdominal wall, initial encounter Status: Acute (2) Diabetes mellitus ICD Code: E11.9 - Type 2 diabetes mellitus without complications Status: Chronic (3) ESRD (end stage renal disease) on dialysis ICD Code: N18.6 - End stage renal disease; Z99.2 - Dependence on renal dialysis Status: Chronic (4) Anemia of renal disease ICD Code: D63.1 - Anemia in chronic kidney disease Status: Chronic (5) Sepsis affecting skin ICD Code: A41.9 - Sepsis, unspecified organism Status: Acute (6) Hypoglycemia associated with type 2 diabetes mellitus ICD Code: E11.649 - Type 2 diabetes mellitus with hypoglycemia without coma Status: Resolved Assessment and Plan 72-year-old female with 09/19: Complaint of urinary retention, nephrology recommended urology consultation, nephrology recommended Purdy for IV antibiotic at discharge we will hold Plavix need 5 days holding for Purdy placement A/P: 1. Infected left groin hematoma due to Klebsiella. Cellulitis of the left groin as well. Leukocytosis secondary to infection-Trending down Sepsis Currently on Zosyn per infectious disease specialist 2. Left femoral popliteal bypass Appreciate input from Vascular surgery 3.CAD/HTN/Hyperlipidemia Continue with outpatient medications 4. End-stage kidney disease on hemodialysis. HD per Nephrology Continue with electrolyte supplement 5. Transaminitis On admission LFTs within normal limits however now elevated LFTs likely secondary to medication side effect as patient currently on Zosyn Continue to hold statin and monitor LFTs. LFTs trending down 6. DM Start Levemir 10units HS and change to Medium ISS Check HgA1C Problem Qualifiers (1) Hematoma of groin: Qualified Codes: S30.1XXA - Contusion of abdominal wall, initial encounter (2) Diabetes mellitus: Cydney Katz MD Sep 19, 2017 19:09
[2017-09-19 20:00] VITALS: BP 109/48; PULSE 64; RESP 21; TEMP 97.4; O2SAT 96
[2017-09-19] MEDS: EZETIMIBE 10 MG TAB PO SCH (21:41)
[2017-09-19] MEDS: INSULIN DETEMIR 100 UNITS/ML VIAL SQ SCH (21:43)
[2017-09-20] VITALS: BP 120/58; PULSE 65; RESP 19; TEMP 99.4; O2SAT 94
[2017-09-20] MEDS: PIPERACIL-TAZO 2.25 GM PREMIX 50 ML IV SCH ×3 (02:16→16:51)
[2017-09-20 04:00] VITALS: BP 122/74; PULSE 61; RESP 18; TEMP 98; O2SAT 98
[2017-09-20] MEDS: LEVOTHYROXINE SODIUM 125 MCG TAB PO SCH (05:44)
[2017-09-20 07:44] VITALS: BP 122/55; PULSE 64; RESP 20; TEMP 98.9; O2SAT 98
[2017-09-20] MEDS: DOCUSATE SODIUM 50 MG/SENNA 8.6 MG TAB PO SCH ×2 (08:30→20:34)
[2017-09-20] MEDS: GABAPENTIN 100 MG CAP PO SCH (08:30)
[2017-09-20] MEDS: ACETAMINOPHEN 325 MG TAB PO PRN ×3 (08:31→20:33)
[2017-09-20] MEDS: CINACALCET HYDROCHLORIDE 30 MG TAB PO SCH (08:31)
[2017-09-20] MEDS: SODIUM CHLORIDE 0.9% FLUSH 10 ML FLUSH IV FLUSH SCH ×2 (08:33→20:34)
[2017-09-20] MEDS: CLOPIDOGREL 75 MG TAB PO SCH (08:33)
[2017-09-20] MEDS: CARVEDILOL 6.25 MG TAB PO SCH ×2 (08:38→20:33)
[2017-09-20] MEDS: INSULIN ASPART SUPPLEMENTAL SCALE SQ SCH ×4 (10:08→20:39)
--- NOTE | 2017-09-20 10:44 | HHI.NPPN ---
Subjective History of Present Illness This patient is a 72-year-old female with a history of multiple medical problems including diabetes mellitus, hypertension, end-stage renal disease, anemia renal disease and peripheral vascular disease now recently status post left femoropopliteal bypass after developing subacute occlusion. Ration now presented with pain and noted to have evidence of a hematoma complicating the femoropopliteal bypass. Interval History Some pain and odor to L foot today. Tolerated HD yesterday with some nausea afterwards. (Ayala Simmons) Review of Systems General Constitutional: Fatigue (Ayala Simmons) Musculoskeletal MS: Swelling in Joint (Ayala Simmons) Skin Skin: Lesions (Ayala Simmons) Objective Data Data Vital Signs Date Time Temp Pulse Resp B/P (MAP) Pulse Ox O2 Delivery O2 Flow Rate FiO2 09/20/17 07:44 98.9 64 20 122/55 (77) 98 09/20/17 04:00 98.0 61 18 122/74 (90) 98 09/20/17 00:00 99.4 65 19 120/58 (78) 94 09/19/17 20:00 97.4 64 21 109/48 (68) 96 09/19/17 16:00 97.8 66 18 129/58 (81) 98 (Ayala Simmons) -: 09/18/17 0730 09/18/17 0730 Imaging Last Impressions Lower Extremity CT 09/08/17 0000 Signed Impressions: Service Date/Time: August 02:33 - CONCLUSION: No fracture. Postsurgical changes. Marshall Watkins MD Abdomen/Pelvis CT 09/06/172029 Signed Impressions: Service Date/Time: Wednesday, September 06, 2017 20:55 - CONCLUSION: 1. Post surgical changes in the left groin with hematoma. 2. 1.2 cm noncalcified pulmonary nodule in the right lower lobe which is nonspecific. A nonemergent outpatient chest CT is recommended for further evaluation. 3. Cortical atrophy in both kidneys. Efrem Briceño MD Lower Extremity Ultrasound 09/06/17 0000 Signed Impressions: Service Date/Time: Wednesday, September 06, 2017 21:03 - CONCLUSION: Left groin hematoma. Efrem Briceño MD Medication Review Current Medications Medications (Trade) Dose Ordered Sig/Julius Route Start Time Stop Time Status Last Admin (NS Flush) 2 ml UNSCH PRN IV FLUSH 09/07/17 01:30 09/16/17 02:30 (NS Flush) 2 ml BID IV FLUSH 09/07/17 09:00 09/20/17 08:33 (Tylenol) 650 mg Q4H PRN PO 09/07/17 01:30 09/17/17 16:48 (Zofran Inj) 4 mg Q6H PRN IVP 09/07/17 01:30 (Narcan Inj) 0.4 mg UNSCH PRN IV PUSH 09/07/17 01:30 (Lucinda-Colace) 1 tab BID PO 09/07/17 09:00 09/20/17 08:30 (Milk Of Magnesia Liq) 30 ml Q12H PRN PO 09/07/17 01:30 (Senokot) 17.2 mg Q12H PRN PO 09/07/17 01:30 (Dulcolax Supp) 10 mg DAILY PRN RECTAL 09/07/17 01:30 (Lactulose Liq) 30 ml DAILY PRN PO 09/07/17 01:30 (Morphine Inj) 2 mg Q3H PRN IV PUSH 09/07/17 01:30 09/07/17 10:15 (Coreg) 6.25 mg BID PO 09/07/17 09:00 09/18/17 19:38 (Sensipar) 30 mg DAILY PO 09/07/17 09:00 09/20/17 08:31 (Plavix) 75 mg DAILY PO 09/07/17 09:00 Future hold 09/19/17 08:44 (Synthroid) 125 mcg DAILY@0600 PO 09/07/17 06:00 09/20/17 05:44 (Zetia) 10 mg HS PO 09/07/17 21:00 09/19/17 21:41 (Lipitor) 40 mg HS PO 09/07/17 21:00 Future Hold 09/09/17 22:11 Sodium Chloride 1,000 ml @ 0 mls/hr Q0M PRN OTHER 09/07/17 09:42 09/17/17 16:49 Sodium Chloride 1,000 ml @ 200 mls/hr Q5H PRN IV 09/07/17 09:42 Sodium Chloride 1,000 ml @ 0 mls/hr Q0M PRN OTHER 09/07/17 09:42 Albumin Human 100 ml @ 60 mls/hr UNSCH PRN IV 09/07/17 09:45 09/10/17 15:35 (NS Flush) 5 ml UNSCH PRN IV FLUSH 09/07/17 09:45 (Heparin Inj) UNSCH PRN .XX 09/07/17 09:45 (Gentamicin Inj) 20 mg UNSCH PRN OTHER 09/07/17 09:45 (Zofran Inj) 4 mg UNSCH PRN IV PUSH 09/07/17 09:45 (Tylenol) 650 mg UNSCH PRN PO 09/07/17 09:45 09/20/17 08:31 (Benadryl) 25 mg UNSCH PRN PO 09/07/17 09:45 (Nitrostat Sl) 0.4 mg UNSCH PRN SL 09/07/17 09:45 (Catapres) 0.1 mg UNSCH PRN PO 09/07/17 09:45 (Epogen Inj) 8,000 units UNSCH PRN IV PUSH 09/07/17 09:45 09/19/17 12:06 (Gelfoam 12 Mm/7 Mm Top) 1 foam UNSCH PRN TOP 09/07/17 09:45 09/19/17 12:06 Piperacillin Sod/ Tazobactam Sod 50 ml @ 100 mls/hr Q8H IV 09/08/17 18:00 09/20/17 10:10 (D50w (Vial) Inj) 50 ml UNSCH PRN IV PUSH 09/13/17 11:15 (Glucagon Inj) 1 mg UNSCH PRN OTHER 09/13/17 11:15 (NovoLOG SUPPLEMENTAL SCALE) 1 ACHS SLIDING SCALE SQ 09/13/17 12:00 09/20/17 10:08 (Levemir Inj) 10 units HS SQ 09/13/17 21:00 09/19/17 21:43 (Neurontin) 100 mg DAILY PO 09/19/17 09:00 09/20/17 08:30 (Ayala Simmons) Physical Exam General Appearance: No Acute Distress (Ayala Simmons) Pulmonary Resp Exam: Clear Bilaterally, Breath Sounds Equal (Ayala Simmons) Cardiology CV Exam: Regular, Normal Sinus Rhythm (Ayala Simmons) Gastrointestinal/Abdomen GI Exam: Soft, Non-Tender (Ayala Simmons) Integumentary Skin Exam: Warm, Normal Turgor, Ulcer(s) (L great toe with eschar present distally. Noted serosangineous discharge between 4th and 5th digits. Malodorous ) (Ayala Simmons) Extremeties Extremities Exam: Moderate Edema (1+ pitting edema BLE L>R), Pitting Edema (Ayala Simmons) Neurologic Neuro Exam: Alert, Awake (Ayala Simmons) Psychiatric Psych Exam: Appropriate Responses (Ayala Simmons) Assessment/Plan Discussed Condition With: Patient Problem List: (1) ESRD (end stage renal disease) on dialysis ICD Codes: N18.6 - End stage renal disease; Z99.2 - Dependence on renal dialysis Status: Chronic Plan: s/p HD yesterday Will continue MWF schedule with UF of 4L as tolerated each session. Mention of discharge with abx. OK for Purdy, but would avoid PICC. Plavix held yesterday in preparation for Purdy. Apparently has to be held 5 days prior to insertion. Medication should be adjusted for the patient's ESRD. Avoid gadolinium. (2) Edema of both legs ICD Codes: R60.0 - Localized edema Plan: Difficulty managing same because of patient's noncompliance with extra dialysis sessions. (3) Anemia of renal disease ICD Codes: D63.1 - Anemia in chronic kidney disease Status: Chronic Plan: Epogen for anemia renal disease as ordered. (4) Secondary hyperparathyroidism of renal origin ICD Codes: N25.81 - Secondary hyperparathyroidism of renal origin Plan: Continue Sensipar for secondary hyperparathyroidism of renal disease. (5) Hematoma of groin ICD Codes: S30.1XXA - Contusion of abdominal wall, initial encounter Status: Acute Plan: With probable superimposed cellulitis. ID on case. Now on Zosyn with end date 10/07/17 (6) Diabetes mellitus ICD Codes: E11.9 - Type 2 diabetes mellitus without complications Status: Chronic (7) Urinary retention ICD Codes: R33.9 - Retention of urine, unspecified Plan: Appreciate assistance with urology. Undergoing straight cath periodically (8) Peripheral vascular disease ICD Codes: I73.9 - Peripheral vascular disease, unspecified Status: Acute Plan: Advised RN to contact Dr. Brothers in regards to the patient's L foot ulceration. Will consult Wound Care as well. (Ayala Simmons) Plan The exam, history, and the medical decision-making described in the above note were completed with the assistance of the PA-C. I reviewed and agree with the findings presented. (Kimberly Sampson MD) Problem Qualifiers (1) Hematoma of groin: Qualified Codes: S30.1XXA - Contusion of abdominal wall, initial encounter (2) Diabetes mellitus: Ayala Simmons Sep 20, 2017 10:44 Kimberly Sampson MD Sep 21, 2017 17:16
[2017-09-20 11:32] VITALS: BP 137/63; PULSE 66; RESP 20; TEMP 98.2; O2SAT 96
[2017-09-20] MEDS: TAMSULOSIN HCL 0.4 MG CAP PO SCH (11:56)
--- NOTE | 2017-09-20 15:39 | HHI.PR ---
Subjective Remarks Resting in bed no acute issue, patient is on hemodialysis she will need IV antibiotics until October 07, ID and nephrology agreed on Purdy catheter for which we need to keep Plavix on hold for 5 days, also will need to check lab work a week after placing the Purdy as per nephrology recommendation Objective Vitals Vital Signs Date Time Temp Pulse Resp B/P (MAP) Pulse Ox O2 Delivery O2 Flow Rate FiO2 09/20/17 11:32 98.2 66 20 137/63 (87) 96 09/20/17 07:44 98.9 64 20 122/55 (77) 98 09/20/17 04:00 98.0 61 18 122/74 (90) 98 09/20/17 00:00 99.4 65 19 120/58 (78) 94 09/19/17 20:00 97.4 64 21 109/48 (68) 96 09/19/17 16:00 97.8 66 18 129/58 (81) 98 I/O 09/19/17 09/19/17 09/19/17 09/20/17 09/20/17 09/20/17 07:00 15:00 23:00 07:00 15:00 23:00 Intake Total 50 ml 480 ml Output Total 3500 ml Balance 50 ml -3500 ml 480 ml Intake Oral 480 ml IV Total 50 ml Hemodialysis 3500 ml # Voids 0 # Bowel Movements 1 0 Result Diagram: 09/18/1772909/18/17729 Objective Remarks GENERAL: This is a well-nourished, well-developed patient, in mild distress due to pain in the groin SKIN: No rashes, warm and dry HEAD: Atraumatic. Normocephalic. EYES: Pupils equal round and reactive. Extraocular motions intact. No scleral icterus. ENT: Nose without bleeding, or drainage, Airway patent. NECK: Trachea midline. Supple CARDIOVASCULAR: Regular rate and rhythm without murmurs, gallops, or rubs. RESPIRATORY: Fair air entry bilaterally. No wheezes, rales, or rhonchi. GASTROINTESTINAL: Abdomen soft, non-tender, nondistended. Positive bowel sounds MUSCULOSKELETAL: Right groin hematoma under pressure and gauze along with lower extremity femoropopliteal surgical site and jessika it has been cleaned by the nurse NEUROLOGICAL: Awake and alert. Moves all extremity. Normal speech.no focal neurological deficit Procedures None A/P Problem List: (1) Hematoma of groin ICD Code: S30.1XXA - Contusion of abdominal wall, initial encounter Status: Acute (2) Diabetes mellitus ICD Code: E11.9 - Type 2 diabetes mellitus without complications Status: Chronic (3) ESRD (end stage renal disease) on dialysis ICD Code: N18.6 - End stage renal disease; Z99.2 - Dependence on renal dialysis Status: Chronic (4) Anemia of renal disease ICD Code: D63.1 - Anemia in chronic kidney disease Status: Chronic (5) Sepsis affecting skin ICD Code: A41.9 - Sepsis, unspecified organism Status: Acute (6) Hypoglycemia associated with type 2 diabetes mellitus ICD Code: E11.649 - Type 2 diabetes mellitus with hypoglycemia without coma Status: Resolved Assessment and Plan 72-year-old female with 09/20: will need IV antibiotics until October 07, ID and nephrology agreed on Purdy catheter for which we need to keep Plavix on hold for 5 days, also will need to check lab work a week after placing the Purdy as per nephrology recommendation Left big toe tip necrosis: Consulted podiatry will check MANJEET A/P: 1. Infected left groin hematoma due to Klebsiella. Cellulitis of the left groin as well. Leukocytosis secondary to infection-Trending down Sepsis Currently on Zosyn per infectious disease specialist 2. Left femoral popliteal bypass Appreciate input from Vascular surgery 3.CAD/HTN/Hyperlipidemia Continue with outpatient medications 4. End-stage kidney disease on hemodialysis. HD per Nephrology Continue with electrolyte supplement 5. Transaminitis On admission LFTs within normal limits however now elevated LFTs likely secondary to medication side effect as patient currently on Zosyn Continue to hold statin and monitor LFTs. LFTs trending down 6. DM Start Levemir 10units HS and change to Medium ISS Check HgA1C Problem Qualifiers (1) Hematoma of groin: Qualified Codes: S30.1XXA - Contusion of abdominal wall, initial encounter (2) Diabetes mellitus: Cydney Katz MD Sep 20, 2017 15:39
[2017-09-20 16:06] VITALS: BP 132/55; PULSE 65; RESP 20; TEMP 98.1; O2SAT 98
[2017-09-20 20:00] VITALS: BP 137/59; PULSE 61; RESP 18; TEMP 98.1; O2SAT 98
[2017-09-20] MEDS: EZETIMIBE 10 MG TAB PO SCH (20:32)
[2017-09-20] MEDS: INSULIN DETEMIR 100 UNITS/ML VIAL SQ SCH (20:38)
[2017-09-21] VITALS: BP 117/57; PULSE 67; RESP 21; TEMP 98.6; O2SAT 97
[2017-09-21] MEDS: ACETAMINOPHEN 325 MG TAB PO PRN ×5 (00:20→21:17)
[2017-09-21] MEDS: PIPERACIL-TAZO 2.25 GM PREMIX 50 ML IV SCH ×3 (02:53→17:43)
[2017-09-21 04:00] VITALS: BP 120/56; PULSE 59; RESP 18; TEMP 98.1; O2SAT 98
[2017-09-21] MEDS: LEVOTHYROXINE SODIUM 125 MCG TAB PO SCH (04:46)
[2017-09-21 07:56] LABS: HEMOGLOBIN 9.2 GM/DL (11.6-15.3); MEAN CELL VOLUME 99.9 FL (80.0-100.0); MEAN CORPUSCULAR HEMOGLOBIN 32.9 PG (27.0-34.0); MEAN PLATELET VOLUME 7.8 FL (7.0-11.0); PLATELET COUNT 372 TH/MM3 (150-450); RED BLOOD COUNT 2.81 MIL/MM3 (4.00-5.30); RED CELL DISTRIBUTION WIDTH 18.8 % (11.6-17.2); WHITE BLOOD COUNT 9.8 TH/MM3 (4.0-11.0)
[2017-09-21] MEDS: INSULIN ASPART SUPPLEMENTAL SCALE SQ SCH ×3 (08:00→21:18)
[2017-09-21 08:06] VITALS: BP 112/53; PULSE 53; RESP 20; TEMP 97.2; O2SAT 95
[2017-09-21 08:22] LABS: ALBUMIN 2.3 GM/DL (3.4-5.0); BICARBONATE 25.3 MEQ/L (21.0-32.0); CALCIUM 9.3 MG/DL (8.5-10.1)
[2017-09-21 08:23] LABS: CREATININE 5.36 MG/DL (0.50-1.00)
[2017-09-21 08:29] LABS: DIRECT BILIRUBIN ADULT 0.2 MG/DL (0.0-0.2); INDIRECT BILIRUBIN 0.3 MG/DL (0.0-0.8); PHOSPHORUS 5.4 MG/DL (2.5-4.9); TOTAL BILIRUBIN ADULT 0.5 MG/DL (0.2-1.0); TOTAL PROTEIN 6.1 GM/DL (6.4-8.2)
[2017-09-21] MEDS: CARVEDILOL 6.25 MG TAB PO SCH ×2 (09:00→21:17)
[2017-09-21] MEDS: SODIUM CHLORIDE 0.9% FLUSH 10 ML FLUSH IV FLUSH SCH ×2 (09:00→21:21)
[2017-09-21] MEDS: TAMSULOSIN HCL 0.4 MG CAP PO SCH (09:00)
[2017-09-21] MEDS: DOCUSATE SODIUM 50 MG/SENNA 8.6 MG TAB PO SCH ×2 (09:00→21:00)
[2017-09-21] MEDS: CINACALCET HYDROCHLORIDE 30 MG TAB PO SCH (09:00)
[2017-09-21] MEDS: GABAPENTIN 100 MG CAP PO SCH (09:00)
[2017-09-21] MEDS: GELATIN 12 MM/7 MM FOAM TOP PRN (12:02)
[2017-09-21] MEDS: EPOETIN ALFA 10,000 UNITS/ML VIAL IV PUSH PRN (12:03)
--- NOTE | 2017-09-21 12:44 | RADRPT ---
EXAM DATE/TIME: 09/20/2017 00:00 [facility] COMPARISON: No previous studies available for comparison. INDICATIONS : Status post fem-pop bypass, Diabetes mellitus TECHNIQUE: Four-cuff ankle and brachial pressures were obtained. Pulse cuff waveform tracings of the ankles were recorded, and ankle-brachial indices were calculated. PRESSURES (mmHg): Brachial (arm): Right IV SITE Left 123 Ankle: Right 75 Left CNO MANJEET: Right 0.61 Left CNO TBI: Right 0.19 Left 0.59 PULSED CUFF WAVEFORMS: Demonstrate normal amplitude bilaterally. CONCLUSION: Findings a moderate disease on the right with nondiagnostic evaluation on the left. Small vessel dise ase bilaterally worse on the right than on the left. CT angiography of the abdominal aorta and lower extremities is recommended for further evaluation if clinically indicated. Keyshawn Soliman MD on September 21, 2017 at 12:40 Board Certified Radiologist. This report was verified electronically.
--- NOTE | 2017-09-21 13:33 | HHI.PR ---
Subjective Remarks Follow-up for infected hematoma. Patient is currently doing well. Return from dialysis today. No fever or chills. Objective Vitals Vital Signs Date Time Temp Pulse Resp B/P (MAP) Pulse Ox O2 Delivery O2 Flow Rate FiO2 09/21/17 08:06 97.2 53 20 112/53 (72) 95 09/21/17 04:00 98.1 59 18 120/56 (77) 98 09/21/17 00:00 98.6 67 21 117/57 (77) 97 09/20/17 20:00 98.1 61 18 137/59 (85) 98 09/20/17 16:06 98.1 65 20 132/55 (80) 98 I/O 09/20/17 09/20/17 09/20/17 09/21/17 09/21/17 09/21/17 07:00 15:00 23:00 07:00 15:00 23:00 Intake Total 360 ml Output Total 3500 ml Balance 360 ml -3500 ml Intake Oral 360 ml Hemodialysis 3500 ml Bladder Scan Volume Amount 72 ml # Voids 0 0 1 # Bowel Movements 0 0 0 Result Diagram: 09/21/17 0717 09/21/17 0717 Imaging Last Impressions Lower Extremity CT 09/08/17 0000 Signed Impressions: Service Date/Time: August 02:33 - CONCLUSION: No fracture. Postsurgical changes. Marshall Watkins MD Abdomen/Pelvis CT 09/06/172029 Signed Impressions: Service Date/Time: Wednesday, September 06, 2017 20:55 - CONCLUSION: 1. Post surgical changes in the left groin with hematoma. 2. 1.2 cm noncalcified pulmonary nodule in the right lower lobe which is nonspecific. A nonemergent outpatient chest CT is recommended for further evaluation. 3. Cortical atrophy in both kidneys. Efrem Briceño MD Lower Extremity Ultrasound 09/06/17 0000 Signed Impressions: Service Date/Time: Wednesday, September 06, 2017 21:03 - CONCLUSION: Left groin hematoma. Efrem Briceño MD Objective Remarks GENERAL: Alert, oriented 3, NAD. SKIN: Warm and dry. HEAD: Normocephalic. EYES: No scleral icterus. No injection or drainage. NECK: Supple, trachea midline. No JVD or lymphadenopathy. CARDIOVASCULAR: Regular rate and rhythm without murmurs, gallops, or rubs. RESPIRATORY: Breath sounds equal bilaterally. No accessory muscle use. GASTROINTESTINAL: Abdomen soft, non-tender, nondistended. MUSCULOSKELETAL: No cyanosis, or edema. Large infected area in the medial left thigh. Left great toe has necrotic tip and there is some necrosis around the base of digit 4 and 5 of left foot. BACK: Nontender without obvious deformity. No CVA tenderness. Procedures None A/P Problem List: (1) Hematoma of groin ICD Code: S30.1XXA - Contusion of abdominal wall, initial encounter Status: Acute (2) Diabetes mellitus ICD Code: E11.9 - Type 2 diabetes mellitus without complications Status: Chronic (3) ESRD (end stage renal disease) on dialysis ICD Code: N18.6 - End stage renal disease; Z99.2 - Dependence on renal dialysis Status: Chronic (4) Anemia of renal disease ICD Code: D63.1 - Anemia in chronic kidney disease Status: Chronic (5) Sepsis affecting skin ICD Code: A41.9 - Sepsis, unspecified organism Status: Acute (6) Hypoglycemia associated with type 2 diabetes mellitus ICD Code: E11.649 - Type 2 diabetes mellitus with hypoglycemia without coma Status: Resolved Assessment and Plan Ms. Jarrell is a pleasant 72-year-old female with a history of ESRD, diabetes mellitus, PAD, CAD who presented to the emergency department on 09/07/2017 from [facility] due to left hip and left lower extremity pain. Patient underwent left femoral popliteal bypass and femoral endarterectomy on 08/30/[address] [facility]. She was noted to have ecchymosis at the groin and proximal thigh on the left side. There was drainage from the surgical site. Infectious disease was consulted. Infected left groin hematoma due to Klebsiella. Cellulitis of the left groin as well. -Currently on Zosyn 2.25 mg every 8 hours. -Will consult wound care. Left foot toe gangrene -Patient will discuss with Dr. Brothers. -May need a podiatry evaluation. Diabetes mellitus Diabetic neuropathy -Increase Levemir from 10 to 12 units nightly and medium scale sliding scale insulin. -Goal blood glucose 140-180. If needed we may need to add pre-meal insulin. -Continue gabapentin 100 mg daily. End-stage kidney disease on hemodialysis. -HD per Nephrology -Continue with electrolyte supplement CAD Hypertension -Continue carvedilol 6.25 twice daily Hypothyroidism - continue levothyroxine 125 mcg daily. Full code. SCDs. Problem Qualifiers (1) Hematoma of groin: Qualified Codes: S30.1XXA - Contusion of abdominal wall, initial encounter (2) Diabetes mellitus: Leny White DO Sep 21, 2017 1:33 pm
[2017-09-21 16:31] VITALS: BP 114/59; PULSE 67; RESP 20; TEMP 98.5; O2SAT 98
--- NOTE | 2017-09-21 17:18 | HHI.NPPN ---
Subjective History of Present Illness This patient is a 72-year-old female with a history of multiple medical problems including diabetes mellitus, hypertension, end-stage renal disease, anemia renal disease and peripheral vascular disease now recently status post left femoropopliteal bypass after developing subacute occlusion. Ration now presented with pain and noted to have evidence of a hematoma complicating the femoropopliteal bypass. Interval History Patient lying comfortably in bed. by bedside. No verbal complaints. Review of Systems General Constitutional: Fatigue Musculoskeletal MS: Swelling in Joint Skin Skin: Lesions Objective Data Data 09/21/17 09/22/17 19:00 07:00 Intake Total 600 ml Output Total 3500 ml Balance -2900 ml Intake Oral 600 ml Hemodialysis 3500 ml # Voids 0 # Bowel Movements 0 Vital Signs Date Time Temp Pulse Resp B/P (MAP) Pulse Ox O2 Delivery O2 Flow Rate FiO2 09/21/17 16:31 98.5 67 20 114/59 (77) 98 09/21/17 08:06 97.2 53 20 112/53 (72) 95 09/21/17 04:00 98.1 59 18 120/56 (77) 98 09/21/17 00:00 98.6 67 21 117/57 (77) 97 09/20/17 20:00 98.1 61 18 137/59 (85) 98 -: 09/21/17 0717 09/21/17 0717 Physical Exam General Appearance: No Acute Distress Pulmonary Resp Exam: Clear Bilaterally, Breath Sounds Equal Cardiology CV Exam: Regular, Normal Sinus Rhythm Gastrointestinal/Abdomen GI Exam: Soft, Non-Tender Integumentary Skin Exam: Warm, Normal Turgor, Ulcer(s) (L great toe with eschar present distally. Noted serosangineous discharge between 4th and 5th digits. Malodorous ) Extremeties Extremities Exam: Moderate Edema (1+ pitting edema BLE L>R), Pitting Edema Neurologic Neuro Exam: Alert, Awake Psychiatric Psych Exam: Appropriate Responses Assessment/Plan Discussed Condition With: Patient Problem List: (1) ESRD (end stage renal disease) on dialysis ICD Codes: N18.6 - End stage renal disease; Z99.2 - Dependence on renal dialysis Status: Chronic Plan: Continue hemodialysis Tuesday and Tuesday. Volume status/edema much improved. Mention of discharge with abx. OK for Purdy, but would avoid PICC. Plavix held yesterday in preparation for Purdy. Apparently has to be held 5 days prior to insertion. Medication should be adjusted for the patient's ESRD. Avoid gadolinium. (2) Edema of both legs ICD Codes: R60.0 - Localized edema Plan: Difficulty managing same because of patient's noncompliance with extra dialysis sessions. (3) Anemia of renal disease ICD Codes: D63.1 - Anemia in chronic kidney disease Status: Chronic Plan: Epogen for anemia renal disease as ordered. (4) Secondary hyperparathyroidism of renal origin ICD Codes: N25.81 - Secondary hyperparathyroidism of renal origin Plan: Continue Sensipar for secondary hyperparathyroidism of renal disease. (5) Hematoma of groin ICD Codes: S30.1XXA - Contusion of abdominal wall, initial encounter Status: Acute Plan: With probable superimposed cellulitis. ID on case. Now on Zosyn with end date 10/07/17 (6) Diabetes mellitus ICD Codes: E11.9 - Type 2 diabetes mellitus without complications Status: Chronic (7) Urinary retention ICD Codes: R33.9 - Retention of urine, unspecified Plan: Appreciate assistance with urology. Undergoing straight cath periodically (8) Peripheral vascular disease ICD Codes: I73.9 - Peripheral vascular disease, unspecified Status: Acute Plan: Advised RN to contact Dr. Brothers in regards to the patient's L foot ulceration. Will consult Wound Care as well. Problem Qualifiers (1) Hematoma of groin: Qualified Codes: S30.1XXA - Contusion of abdominal wall, initial encounter (2) Diabetes mellitus: Kimberly Sampson MD Sep 21, 2017 17:17
--- NOTE | 2017-09-21 19:01 | MB ---
cc: Jeny Bloom DPM, Laura M DPM DATE: 09/21/2017 CHIEF COMPLAINT: Left hallux dry gangrene. HISTORY OF PRESENT ILLNESS: Mrs. Jarrell is a 72-year-old female patient with a history of ulcerations to the left foot. She had a femoral popliteal bypass with femoral endarterectomy last Tuesday at [facility]. That is 08/30/2017. The patient developed a severe hematoma and some postoperative complications that led to her admission at [facility]. She has subsequently developed a left hallux eschar on the distal tip of the toe, but states that it was actually there before her procedure. She also has a wound in the 4th interspace, which she also states was there before her procedure. She routinely sees Dr. Roberto Diego as an outpatient. She denies any pain or discomfort to the left foot. PAST MEDICAL HISTORY: Includes diabetes mellitus, end-stage renal disease on dialysis, peripheral vascular disease, hypertension, hyperlipidemia, coronary artery disease. PAST SURGICAL HISTORY: Includes appendectomy, cholecystectomy, CABG x3, left second digit amputation, femoral popliteal bypass with femoral endarterectomy. MEDICATIONS: Please see list. ALLERGIES: AMLODIPINE, BUMETANIDE FAMILY HISTORY: Noncontributory. SOCIAL HISTORY: The patient denies any alcohol, tobacco or drug abuse. Lives at home with family, but is currently residing at [facility]. VITAL SIGNS: Temperature is 98.5, pulse 67, respiratory rate 20, blood pressure 114/59, pulse oximetry 98% O2 on room air. LABORATORY DATA: White count is 9.8, down from 17.1 on admission, hemoglobin 9.2, hematocrit 28.0, platelets 372. PHYSICAL EXAMINATION: The patient has nonpalpable DP and PT pulses, but the foot does feel perfused and warm. Gross sensation is severely diminished. There is an absence of the second digit. The amputation site has healed. The distal tip of the left hallux has a dry eschar with no signs of infection. The fourth interspace has a full-thickness ulceration of approximately 0.75 x 0.75 cm with no exposed bone, tendon, or deep probing. No erythema or signs of infection. ASSESSMENT AND PLAN: 1. Left hallux dry gangrene. No erythema. 2. Left foot stage II ulceration, noninfected. - The hallux is stable. No surgical plans at this time. We will continue to monitor. - Left fourth interspace wound is stable with no signs of infection, dressing change instructions left for nursing staff. - The patient plans to followup with her technical services analyst, Dr. Diego, upon discharge. However, please feel free to reconsult or call with any questions or concerns. We will continue to monitor the patient intermittently while in-house. SNEHAL Clemente/ , 06:46 PM , 07:01 PM [place]
[2017-09-21 20:26] VITALS: BP 152/68; PULSE 76; RESP 18; TEMP 98.9; O2SAT 98
[2017-09-21] MEDS: EZETIMIBE 10 MG TAB PO SCH (21:00)
[2017-09-21] MEDS: INSULIN DETEMIR 100 UNITS/ML VIAL SQ SCH (21:18)
[2017-09-22 00:50] VITALS: BP 120/70; PULSE 69; RESP 18; TEMP 98.7; O2SAT 96
[2017-09-22] MEDS: PIPERACIL-TAZO 2.25 GM PREMIX 50 ML IV SCH ×3 (01:59→18:19)
[2017-09-22 04:50] VITALS: BP 125/56; PULSE 62; RESP 18; TEMP 97.1; O2SAT 96
[2017-09-22] MEDS: LEVOTHYROXINE SODIUM 125 MCG TAB PO SCH (05:41)
[2017-09-22] MEDS: ACETAMINOPHEN 325 MG TAB PO PRN ×3 (05:43→21:55)
[2017-09-22 07:57] VITALS: BP 122/56; PULSE 62; RESP 20; TEMP 98; O2SAT 96
[2017-09-22] MEDS: CINACALCET HYDROCHLORIDE 30 MG TAB PO SCH (08:36)
[2017-09-22] MEDS: GABAPENTIN 100 MG CAP PO SCH (08:37)
[2017-09-22] MEDS: DOCUSATE SODIUM 50 MG/SENNA 8.6 MG TAB PO SCH ×2 (08:37→21:47)
[2017-09-22] MEDS: TAMSULOSIN HCL 0.4 MG CAP PO SCH (08:37)
[2017-09-22] MEDS: CARVEDILOL 6.25 MG TAB PO SCH ×2 (08:39→21:46)
[2017-09-22] MEDS: INSULIN ASPART SUPPLEMENTAL SCALE SQ SCH ×4 (08:40→21:49)
[2017-09-22] MEDS: SODIUM CHLORIDE 0.9% FLUSH 10 ML FLUSH IV FLUSH SCH ×2 (08:40→21:54)
--- NOTE | 2017-09-22 09:08 | HHI.PR ---
Subjective Remarks She is in the chair. Says she has pain in her left groin. Plan for debridement and wound VAC tomorrow. She does not have any fever or chills. Was able to ambulate has some pain with ambulation in her left groin and leg. No nausea vomiting no diarrhea or constipation. She had normal bowel movement in the morning. Had diarrhea yesterday. Objective Vitals Vital Signs Date Time Temp Pulse Resp B/P (MAP) Pulse Ox O2 Delivery O2 Flow Rate FiO2 09/22/17 07:57 98.0 62 20 122/56 (78) 96 09/22/17 04:50 97.1 62 18 125/56 (79) 96 09/22/17 00:50 98.7 69 18 120/70 (87) 96 09/21/17 20:26 98.9 76 18 152/68 (96) 98 09/21/17 16:31 98.5 67 20 114/59 (77) 98 I/O 09/21/17 09/21/17 09/21/17 09/22/17 09/22/17 09/22/17 07:00 15:00 23:00 07:00 15:00 23:00 Intake Total 600 ml Output Total 3500 ml Balance -3500 ml 600 ml Intake Oral 600 ml Hemodialysis 3500 ml # Voids 1 0 2 # Bowel Movements 0 1 2 Result Diagram: 09/21/1717 09/21/1717 Imaging Last Impressions Lower Extremity CT 09/08/17 0000 Signed Impressions: Service Date/Time: August 02:33 - CONCLUSION: No fracture. Postsurgical changes. Marshall Watkins MD Abdomen/Pelvis CT 09/06/172029 Signed Impressions: Service Date/Time: Wednesday, September 06, 2017 20:55 - CONCLUSION: 1. Post surgical changes in the left groin with hematoma. 2. 1.2 cm noncalcified pulmonary nodule in the right lower lobe which is nonspecific. A nonemergent outpatient chest CT is recommended for further evaluation. 3. Cortical atrophy in both kidneys. Efrem Briceño MD Lower Extremity Ultrasound 09/06/17 0000 Signed Impressions: Service Date/Time: Wednesday, September 06, 2017 21:03 - CONCLUSION: Left groin hematoma. Efrem Briceño MD Objective Remarks GENERAL: Alert, oriented 3, NAD. CARDIOVASCULAR: Regular rate and rhythm without murmurs, gallops, or rubs. RESPIRATORY: Breath sounds equal bilaterally. No accessory muscle use. GASTROINTESTINAL: Abdomen soft, non-tender, nondistended. MUSCULOSKELETAL: No cyanosis, or edema. Large infected area in the medial left thigh. Left great toe has necrotic tip and there is some necrosis around the base of digit 4 and 5 of left foot. BACK: Nontender without obvious deformity. No CVA tenderness. Procedures None A/P Problem List: (1) Hematoma of groin ICD Code: S30.1XXA - Contusion of abdominal wall, initial encounter Status: Acute (2) Diabetes mellitus ICD Code: E11.9 - Type 2 diabetes mellitus without complications Status: Chronic (3) ESRD (end stage renal disease) on dialysis ICD Code: N18.6 - End stage renal disease; Z99.2 - Dependence on renal dialysis Status: Chronic (4) Anemia of renal disease ICD Code: D63.1 - Anemia in chronic kidney disease Status: Chronic (5) Sepsis affecting skin ICD Code: A41.9 - Sepsis, unspecified organism Status: Acute (6) Hypoglycemia associated with type 2 diabetes mellitus ICD Code: E11.649 - Type 2 diabetes mellitus with hypoglycemia without coma Status: Resolved Assessment and Plan Ms. Jarrell is a pleasant 72-year-old female with a history of ESRD, diabetes mellitus, PAD, CAD who presented to the emergency department on 09/07/2017 from [facility] due to left hip and left lower extremity pain. Patient underwent left femoral popliteal bypass and femoral endarterectomy on 08/30/2017 at [facility]. She was noted to have ecchymosis at the groin and proximal thigh on the left side. There was drainage from the surgical site. Infectious disease was consulted. Infected left groin hematoma due to Klebsiella. Cellulitis of the left groin as well. Currently on Zosyn 2.25 mg every 8 hours. Consult wound care, appreciate recommendations Consult vascular surgery Plan for debridement and possible wound VAC placement Left foot toe gangrene Patient will discuss with Dr. Brothers. May need a podiatry evaluation. Diabetes mellitus insulin dependent Diabetic neuropathy Increase Levemir from 10 to 12 units nightly and medium scale sliding scale insulin. Goal blood glucose 140-180. If needed we may need to add pre-meal insulin. Continue gabapentin 100 mg daily. End-stage kidney disease on hemodialysis. HD per Nephrology Continue with electrolyte supplement CAD Hypertension Continue carvedilol 6.25 twice daily Hypothyroidism - continue levothyroxine 125 mcg daily. Full code. DVT pps - SCDs. DC plan: pending improvement Plan debridement and possible wound VAC placement tomorrow Check PTT/INR presurgical Discussed with the patient, nurse, Wound care nurse Problem Qualifiers (1) Hematoma of groin: Qualified Codes: S30.1XXA - Contusion of abdominal wall, initial encounter (2) Diabetes mellitus: Lizzie Medeiros MD Sep 22, 2017 09:08
--- NOTE | 2017-09-22 10:08 | PD.WCN.NOT ---
Wound Consult Description: Wound consult ordered by for wound management of left medial thigh. Communicated with: Julio MERCADO [place] , Recommendation: 1. Cleanse Left upper thigh/groin with normal saline pat dry 2. Apply Santyl 2mm thick to wound base with moisten gauze then cover with dry dressing change daily 3. Please reframe from using any adhesive dressing skin/tissue is very friable . 4. Consult general surgery for debridement. Additional Information: Patient was seen today on by production underwriter for wound management.Patient alert and oriented x3 sitting in recliner chair.Dressing removed from Left medial upper thigh/groin with difficulty due to paper tape adhering to friable skin.Wound cleansed with normal saline .Patient has a full thickness wound measuring 11cm x 18cm x Slough.Wound base is ~50% adhered yellow slough 50% adhered soft black necrotic tissue.Periwound has erythema ~5cm circumferential to wound base wound edges are defined irregular in shape even with wound base.Moderate serosanguineous drainage noted to prior dressing.Patient has a dehisced surgical incision to left groin proximal thigh measures 1.0cm x3.0cm x 6.0cm wound base is 100% beefy red non granular tissue .wound edges are well defined thickening starting to roll under.2 Clots noted when incision probed for depth.scant bloody drainage noted with out odor.patient has partial thickness moisture related denuded wound to inner pannus cleansed with normal saline pat dry.ABD pad gently tucked into inner pannus and covering wound.Patient will need aggressive debridement with possible wound vac placement. Do Ocasio [facility] Sep 22, 2017 10:08
[2017-09-22 11:24] VITALS: BP 117/59; PULSE 61; RESP 20; TEMP 97.8; O2SAT 96
[2017-09-22 12:12] LABS: INTERNATIONAL NORMALIZED RATIO 1.1 RATIO; PROTHROMBIN TIME - PATIENT 11.4 SEC (9.8-11.6)
[2017-09-22 15:30] VITALS: BP 136/63; PULSE 70; RESP 20; TEMP 98.2; O2SAT 100
[2017-09-22 20:00] VITALS: BP 112/51; PULSE 59; RESP 16; TEMP 98.2; O2SAT 98
[2017-09-22] MEDS: EZETIMIBE 10 MG TAB PO SCH (21:47)
[2017-09-22] MEDS: INSULIN DETEMIR 100 UNITS/ML VIAL SQ SCH (21:48)
[2017-09-23] VITALS: BP 116/56; PULSE 62; RESP 16; TEMP 98.1; O2SAT 98
[2017-09-23] MEDS: PIPERACIL-TAZO 2.25 GM PREMIX 50 ML IV SCH ×3 (01:19→18:09)
[2017-09-23] MEDS: ACETAMINOPHEN 325 MG TAB PO PRN ×3 (03:10→18:10)
[2017-09-23] MEDS: LEVOTHYROXINE SODIUM 125 MCG TAB PO SCH (05:50)
[2017-09-23 08:00] VITALS: BP 129/60; PULSE 59; RESP 18; TEMP 98.2; O2SAT 97
[2017-09-23] MEDS: INSULIN ASPART SUPPLEMENTAL SCALE SQ SCH ×4 (08:00→21:48)
[2017-09-23 08:01] LABS: AUTOMATED NEUTROPHIL # 5.7 TH/MM3 (1.8-7.7); BASOPHIL # 0.1 TH/MM3 (0-0.2); BASOPHIL % 1.3 % (0.0-2.0); EOSINOPHIL # 0.2 TH/MM3 (0-0.4); EOSINOPHIL % 2.2 % (0.0-4.0); HEMATOCRIT 29.9 % (35.0-46.0); HEMOGLOBIN 9.7 GM/DL (11.6-15.3); LYMPHOCYTE # 1.1 TH/MM3 (1.0-4.8); MEAN CORPUSCULAR HEMOGLOBIN 32.2 PG (27.0-34.0); MEAN CORPUSCULAR HGB CONC 32.5 % (32.0-36.0); MEAN PLATELET VOLUME 7.7 FL (7.0-11.0); MONO % 12.7 % (0.0-8.0); NEUT % 70.8 % (16.0-70.0); PLATELET COUNT 389 TH/MM3 (150-450); RED BLOOD COUNT 3.02 MIL/MM3 (4.00-5.30); RED CELL DISTRIBUTION WIDTH 18.8 % (11.6-17.2); WHITE BLOOD COUNT 8.1 TH/MM3 (4.0-11.0)
[2017-09-23 08:30] LABS: CALCIUM 9.7 MG/DL (8.5-10.1); CREATININE 5.02 MG/DL (0.50-1.00)
[2017-09-23] MEDS: CINACALCET HYDROCHLORIDE 30 MG TAB PO SCH (08:36)
[2017-09-23] MEDS: TAMSULOSIN HCL 0.4 MG CAP PO SCH (08:36)
[2017-09-23] MEDS: GABAPENTIN 100 MG CAP PO SCH (08:36)
[2017-09-23] MEDS: CARVEDILOL 6.25 MG TAB PO SCH ×2 (09:00→21:00)
[2017-09-23] MEDS: DOCUSATE SODIUM 50 MG/SENNA 8.6 MG TAB PO SCH ×2 (09:00→21:00)
[2017-09-23] MEDS: SODIUM CHLORIDE 0.9% FLUSH 10 ML FLUSH IV FLUSH SCH ×2 (09:03→21:00)
--- NOTE | 2017-09-23 11:17 | HHI.NPPN ---
Subjective History of Present Illness This patient is a 72-year-old female with a history of multiple medical problems including diabetes mellitus, hypertension, end-stage renal disease, anemia renal disease and peripheral vascular disease now recently status post left femoropopliteal bypass after developing subacute occlusion. Ration now presented with pain and noted to have evidence of a hematoma complicating the femoropopliteal bypass. Interval History Seen during HD Plans for Purdy placement today for IV abx Also getting wound vac today Potential plans for D/C to [place] this afternoon (Ayala Simmons) Review of Systems General Constitutional: Fatigue (Ayala Simmons) Musculoskeletal MS: Swelling in Joint (Ayala Simmons) Skin Skin: Lesions (Ayala Simmons) Objective Data Data Vital Signs Date Time Temp Pulse Resp B/P (MAP) Pulse Ox O2 Delivery O2 Flow Rate FiO2 09/23/17 08:00 98.2 59 18 129/60 (83) 97 09/23/17 00:00 98.1 62 16 116/56 (76) 98 09/22/17 20:00 98.2 59 16 112/51 (71) 98 09/22/17 15:50 18 09/22/17 15:30 98.2 70 20 136/63 (87) 100 09/22/17 11:24 97.8 61 20 117/59 (78) 96 (Ayala Simmons) -: 09/23/17 0704 09/23/17 0704 Imaging Last Impressions Lower Extremity CT 09/08/17 0000 Signed Impressions: Service Date/Time: August 02:33 - CONCLUSION: No fracture. Postsurgical changes. Marshall Watkins MD Abdomen/Pelvis CT 09/06/172029 Signed Impressions: Service Date/Time: Wednesday, September 06, 2017 20:55 - CONCLUSION: 1. Post surgical changes in the left groin with hematoma. 2. 1.2 cm noncalcified pulmonary nodule in the right lower lobe which is nonspecific. A nonemergent outpatient chest CT is recommended for further evaluation. 3. Cortical atrophy in both kidneys. Efrem Briceño MD Lower Extremity Ultrasound 09/06/17 0000 Signed Impressions: Service Date/Time: Wednesday, September 06, 2017 21:03 - CONCLUSION: Left groin hematoma. Efrem Briceño MD Medication Review Current Medications Medications (Trade) Dose Ordered Sig/Julius Route Start Time Stop Time Status Last Admin (NS Flush) 2 ml UNSCH PRN IV FLUSH 09/07/17 01:30 09/16/17 02:30 (NS Flush) 2 ml BID IV FLUSH 09/07/17 09:00 09/23/17 09:03 (Tylenol) 650 mg Q4H PRN PO 09/07/17 01:30 09/22/17 21:55 (Zofran Inj) 4 mg Q6H PRN IVP 09/07/17 01:30 (Narcan Inj) 0.4 mg UNSCH PRN IV PUSH 09/07/17 01:30 (Lucinda-Colace) 1 tab BID PO 09/07/17 09:00 09/22/17 21:47 (Milk Of Magnesia Liq) 30 ml Q12H PRN PO 09/07/17 01:30 (Senokot) 17.2 mg Q12H PRN PO 09/07/17 01:30 (Dulcolax Supp) 10 mg DAILY PRN RECTAL 09/07/17 01:30 (Lactulose Liq) 30 ml DAILY PRN PO 09/07/17 01:30 (Morphine Inj) 2 mg Q3H PRN IV PUSH 09/07/17 01:30 09/07/17 10:15 (Coreg) 6.25 mg BID PO 09/07/17 09:00 09/22/17 21:46 (Sensipar) 30 mg DAILY PO 09/07/17 09:00 09/23/17 08:36 (Plavix) 75 mg DAILY PO 09/07/17 09:00 Future hold 09/19/17 08:44 (Synthroid) 125 mcg DAILY@0600 PO 09/07/17 06:00 09/22/17 05:41 (Zetia) 10 mg HS PO 09/07/17 21:00 09/22/17 21:47 (Lipitor) 40 mg HS PO 09/07/17 21:00 Future Hold 09/09/17 22:11 Sodium Chloride 1,000 ml @ 0 mls/hr Q0M PRN OTHER 09/07/17 09:42 09/17/17 16:49 Sodium Chloride 1,000 ml @ 200 mls/hr Q5H PRN IV 09/07/17 09:42 Sodium Chloride 1,000 ml @ 0 mls/hr Q0M PRN OTHER 09/07/17 09:42 Albumin Human 100 ml @ 60 mls/hr UNSCH PRN IV 09/07/17 09:45 09/10/17 15:35 (NS Flush) 5 ml UNSCH PRN IV FLUSH 09/07/17 09:45 (Heparin Inj) UNSCH PRN .XX 09/07/17 09:45 (Gentamicin Inj) 20 mg UNSCH PRN OTHER 09/07/17 09:45 (Zofran Inj) 4 mg UNSCH PRN IV PUSH 09/07/17 09:45 (Tylenol) 650 mg UNSCH PRN PO 09/07/17 09:45 09/23/17 08:45 (Benadryl) 25 mg UNSCH PRN PO 09/07/17 09:45 (Nitrostat Sl) 0.4 mg UNSCH PRN SL 09/07/17 09:45 (Catapres) 0.1 mg UNSCH PRN PO 09/07/17 09:45 (Epogen Inj) 8,000 units UNSCH PRN IV PUSH 09/07/17 09:45 09/21/17 12:03 (Gelfoam 12 Mm/7 Mm Top) 1 foam UNSCH PRN TOP 09/07/17 09:45 09/21/17 12:02 Piperacillin Sod/ Tazobactam Sod 50 ml @ 100 mls/hr Q8H IV 09/08/17 18:00 09/23/17 09:03 (D50w (Vial) Inj) 50 ml UNSCH PRN IV PUSH 09/13/17 11:15 (Glucagon Inj) 1 mg UNSCH PRN OTHER 09/13/17 11:15 (NovoLOG SUPPLEMENTAL SCALE) 1 ACHS SLIDING SCALE SQ 09/13/17 12:00 09/22/17 21:49 (Neurontin) 100 mg DAILY PO 09/19/17 09:00 09/23/17 08:36 (Flomax) 0.4 mg DAILY PO 09/20/17 10:45 09/23/17 08:36 (Levemir Inj) 12 units HS SQ 09/21/17 21:00 09/22/17 21:48 (Ayala Simmons) Physical Exam General Appearance: No Acute Distress (Ayala Simmons) Pulmonary Resp Exam: Clear Bilaterally, Breath Sounds Equal (Ayala Simmons) Cardiology CV Exam: Regular, Normal Sinus Rhythm (Ayala Simmons) Gastrointestinal/Abdomen GI Exam: Soft, Non-Tender (Ayala Simmons) Integumentary Skin Exam: Warm, Normal Turgor, Ulcer(s) (L great toe with eschar present distally. Noted serosangineous discharge between 4th and 5th digits. Malodorous ) (Ayala Simmons) Extremeties Extremities Exam: Moderate Edema (1+ pitting edema BLE L>R), Pitting Edema (Ayala Simmons) Neurologic Neuro Exam: Alert, Awake (Ayala Simmons) Psychiatric Psych Exam: Appropriate Responses (Ayala Simmons) Assessment/Plan Discussed Condition With: Patient Problem List: (1) ESRD (end stage renal disease) on dialysis ICD Codes: N18.6 - End stage renal disease; Z99.2 - Dependence on renal dialysis Status: Chronic Plan: Continue hemodialysis Tuesday and Tuesday. Seen during HD today Volume status/edema much improved. Purdy placement today for continuation of IV abx Potential plans for D/C to [place] this afternoon after Purdy and wound vac placement Medication should be adjusted for the patient's ESRD. Avoid gadolinium. (2) Edema of both legs ICD Codes: R60.0 - Localized edema Plan: Improving with UF (3) Anemia of renal disease ICD Codes: D63.1 - Anemia in chronic kidney disease Status: Chronic Plan: Epogen for anemia renal disease as ordered. (4) Secondary hyperparathyroidism of renal origin ICD Codes: N25.81 - Secondary hyperparathyroidism of renal origin Plan: Continue Sensipar for secondary hyperparathyroidism of renal disease. (5) Hematoma of groin ICD Codes: S30.1XXA - Contusion of abdominal wall, initial encounter Status: Acute Plan: With probable superimposed cellulitis. ID on case. Now on Zosyn with end date 10/07/17 (6) Diabetes mellitus ICD Codes: E11.9 - Type 2 diabetes mellitus without complications Status: Chronic (7) Urinary retention ICD Codes: R33.9 - Retention of urine, unspecified Plan: Appreciate assistance with urology. Undergoing straight cath periodically (8) Peripheral vascular disease ICD Codes: I73.9 - Peripheral vascular disease, unspecified Status: Acute Plan: mgmt as per Vasc and Wound Care (Ayala Simmons) Plan The exam, history, and the medical decision-making described in the above note were completed with the assistance of the PA-C. I reviewed and agree with the findings presented. (Kimberly Sampson MD) Problem Qualifiers (1) Hematoma of groin: Qualified Codes: S30.1XXA - Contusion of abdominal wall, initial encounter (2) Diabetes mellitus: Ayala Simmons Sep 23, 2017 11:17 Kimberly Sampson MD Sep 24, 2017 14:17
[2017-09-23] MEDS ORDERED: SUCCINYLCHOLINE CHLORIDE 100 MG/5 ML SYRINGE IV PUSH ONE (12:00)
[2017-09-23] MEDS ORDERED: LIDOCAINE HCL 1% PF 5 ML SYRINGE OTHER ONE (12:00)
[2017-09-23] MEDS ORDERED: PROPOFOL 200 MG/20 ML AMP IV ONE (12:00)
[2017-09-23] MEDS ORDERED: ONDANSETRON HCL 4 MG/2 ML VIAL IV ONE (12:00)
[2017-09-23] MEDS ORDERED: ePHEDrine/NS 25 MG/5 ML SYRINGE IV ONE (12:00)
[2017-09-23] MEDS ORDERED: MIDAZOLAM HCL 2 MG/2 ML VIAL ONE (12:34)
--- NOTE | 2017-09-23 13:05 | PD.RAD ---
Post Procedure Progress Note Pre Procedure Diagnosis: (1) Sepsis affecting skin Post Procedure Diagnosis: (1) Sepsis affecting skin Procedure Date: Sep 23, 2017 Supervising Radiologist: Keyshawn Soliman Proceduralist/Assist: RT Kandice(R)() Anesthesia: Conscious Sedation Plan of Activity Patient to Unit: Nursing Unit Patient Condition: Fair See PACS Report for procedural detail/treatment Central Venous Access Device Procedure 1 Right Internal Jugular Tunneled Central Line Placement single lumen Keyshawn Soliman MD Sep 23, 2017 13:05
[2017-09-23] MEDS ORDERED: SODIUM CHLORIDE 0.9% FLUSH 10 ML FLUSH IVF PRN (13:15)
--- NOTE | 2017-09-23 14:32 | RADRPT ---
EXAM DATE/TIME: 09/23/2017 13:01 [facility] COMPARISON: No previous studies available for comparison. INDICATIONS : Renal patient in need of chcf antibiotic therapy. MEDICAL HISTORY : 1. DM 2. ESRD 3. PAD 4. CAD 5. HTN 6. Hyperlipidemia SURGICAL HISTORY : 1. Appendectomy 2. Cholecystectomy 3. CABG x3 4. Lt toe amputation 5. Fem pop-bypass ENCOUNTER: Initial ACUITY: 2 weeks PAIN SCORE: 6/10 LOCATION: Lt hip and back area FLUORO TIME: 0.6 minutes IMAGE SERIES: 1 SEDATION TIME: 10 minutes ACCESS: Right internal jugular vein SEDATION: 1.) 1 mg midazolam (Versed) IV 2.) 50 mcg fentanyl (Sublimaze) IV DEVICE: 1. 6 Malian single lumen Purdy catheter PROCEDURE : 1. Ultrasound-guided puncture of the prescribed vein. 2. Fluoroscopic guidance. 3. Purdy catheter placement 4. Conscious sedation with continuous EKG and oximetry monitoring. The risks, benefits and alternatives to the procedure were explained and verbal and written consent w as obtained. The site was prepped in sterile fashion. Full sterile technique was used, including ca p, mask, sterile gloves and gown and a large sterile sheet. Hand hygiene and 2% chlorhexidine Betadi ne was utilized per protocol for cutaneous antisepsis with appropriate dry time for site. Sterile ge l and sterile probe cover were utilized for ultrasound guidance. The skin and subcutaneous tissues w ere infiltrated with local anesthetic solution. With ultrasound and fluoroscopic guidance a dermatotomy was created in the supraclavicular region. A micropuncture set was used to access to the prescribed vein and serial dilatation was performed to a ccept a Purdy catheter. A subcutaneous tunnel was created and in antegrade fashion the catheter wa s pulled through the tunnel, cut to the appropriate length and place through the sheath. The cathete r was locked with heparin and sutured in place. Conscious sedation was performed with the prescribed dosages and duration as above in the presence of an independent trained radiology nurse to assist in the monitoring of the patient. EKG and oximetry remained stable throughout the procedure. The patient tolerated the procedure well and there were no complications. The patient was sent to post anesthesia recovery in stable condition. CONCLUSION: Uncomplicated Purdy catheter placement as above. Keyshawn Soliman MD on September 23, 2017 at 14:29 Board Certified Radiologist. This report was verified electronically.
[2017-09-23] MEDS ORDERED: BUPIVACAINE/EPINEPHRINE 0.5% PF 30 ML VIAL ONE (14:34)
[2017-09-23] MEDS ORDERED: DO NOT ADM ANY ANTICOAGULANT DRUGS PRN (15:19)
--- NOTE | 2017-09-23 16:02 | HHI.PR ---
Subjective Remarks Went for HD and had wound vac placement today. Feels nauseated and also has pain. No v/d/c. Denies chest pain or sob. No fever or chills Objective Vitals Vital Signs Date Time Temp Pulse Resp B/P (MAP) Pulse Ox O2 Delivery O2 Flow Rate FiO2 09/23/17 15:45 97.6 63 14 117/71 (86) 97 Nasal Cannula 2 09/23/17 15:30 62 14 115/71 (86) 97 Nasal Cannula 2 09/23/17 15:21 97.6 62 14 127/69 (88) 97 Nasal Cannula 2 09/23/17 12:00 09/23/17 08:00 98.2 59 18 129/60 (83) 97 09/23/17 00:00 98.1 62 16 116/56 (76) 98 09/22/17 20:00 98.2 59 16 112/51 (71) 98 I/O 09/22/17 09/22/17 09/22/17 09/23/17 09/23/17 09/23/17 07:00 15:00 23:00 07:00 15:00 23:00 Intake Total 480 ml 50 ml Output Total 2810 ml Balance 480 ml -2760 ml Intake Oral 480 ml Other 50 ml Hemodialysis 2800 ml Estimated Blood Loss 10 ml # Voids 2 3 # Bowel Movements 2 3 Result Diagram: 09/23/17 0704 09/23/17 0704 Imaging Last Impressions Catheter Placement X-Ray 09/23/17 0000 Signed Impressions: Service Date/Time: Saturday, September 23, 2017 13:01 - CONCLUSION: Uncomplicated Purdy catheter placement as above. Keyshawn Soliman MD Lower Extremity CT 09/08/17 0000 Signed Impressions: Service Date/Time: August 02:33 - CONCLUSION: No fracture. Postsurgical changes. Marshall Watkins MD Abdomen/Pelvis CT 09/06/172029 Signed Impressions: Service Date/Time: Wednesday, September 06, 2017 20:55 - CONCLUSION: 1. Post surgical changes in the left groin with hematoma. 2. 1.2 cm noncalcified pulmonary nodule in the right lower lobe which is nonspecific. A nonemergent outpatient chest CT is recommended for further evaluation. 3. Cortical atrophy in both kidneys. Efrem Briceño MD Lower Extremity Ultrasound 09/06/17 0000 Signed Impressions: Service Date/Time: Wednesday, September 06, 2017 21:03 - CONCLUSION: Left groin hematoma. Efrem Briceño MD Objective Remarks GENERAL: Alert, oriented, appears chronically ill in pain and also nauseated CARDIOVASCULAR: Regular rate and rhythm without murmurs, gallops, or rubs. RESPIRATORY: Breath sounds equal bilaterally. No accessory muscle use. GASTROINTESTINAL: Abdomen soft, non-tender, nondistended. MUSCULOSKELETAL: No cyanosis, or edema. Large infected area in the medial left thigh now with wound vac in place. Left great toe has necrotic tip and there is some necrosis around the base of digit 4 and 5 of left foot. BACK: Nontender without obvious deformity. No CVA tenderness. Procedures None A/P Problem List: (1) Hematoma of groin ICD Code: S30.1XXA - Contusion of abdominal wall, initial encounter Status: Acute (2) Diabetes mellitus ICD Code: E11.9 - Type 2 diabetes mellitus without complications Status: Chronic (3) ESRD (end stage renal disease) on dialysis ICD Code: N18.6 - End stage renal disease; Z99.2 - Dependence on renal dialysis Status: Chronic (4) Anemia of renal disease ICD Code: D63.1 - Anemia in chronic kidney disease Status: Chronic (5) Sepsis affecting skin ICD Code: A41.9 - Sepsis, unspecified organism Status: Acute (6) Hypoglycemia associated with type 2 diabetes mellitus ICD Code: E11.649 - Type 2 diabetes mellitus with hypoglycemia without coma Status: Resolved Assessment and Plan Ms. Jarrell is a pleasant 72-year-old female with a history of ESRD, diabetes mellitus, PAD, CAD who presented to the emergency department on 09/07/[address] [facility] due to left hip and left lower extremity pain. Patient underwent left femoral popliteal bypass and femoral endarterectomy on 08/30/2017 at [facility]. She was noted to have ecchymosis at the groin and proximal thigh on the left side. There was drainage from the surgical site. Infectious disease was consulted. Infected left groin hematoma due to Klebsiella. Cellulitis of the left groin as well. Currently on Zosyn 2.25 mg every 8 hours. Consult wound care, appreciate recommendations Consult vascular surgery Plan for debridement and possible wound VAC placement Nausea/Vomiting. Zofran, add reglan as intractable nausea Left foot toe gangrene Patient will discuss with Dr. Brothers. May need a podiatry evaluation. Diabetes mellitus insulin dependent Diabetic neuropathy Increase Levemir from 10 to 12 units nightly and medium scale sliding scale insulin. Goal blood glucose 140-180. If needed we may need to add pre-meal insulin. Continue gabapentin 100 mg daily. End-stage kidney disease on hemodialysis. HD per Nephrology Continue with electrolyte supplement CAD Hypertension Continue carvedilol 6.25 twice daily Hypothyroidism - continue levothyroxine 125 mcg daily. Full code. DVT pps - SCDs. DC plan: pending improvement Plan debridement and possible wound VAC placement tomorrow Check PTT/INR presurgical Discussed with the patient, nurse. Wound care nurse. Problem Qualifiers (1) Hematoma of groin: Qualified Codes: S30.1XXA - Contusion of abdominal wall, initial encounter (2) Diabetes mellitus: Lizzie Medeiros MD Sep 23, 2017 16:02
--- NOTE | 2017-09-23 16:29 | HHI.IDPN ---
Note Infectious Disease Note Patient notes pain in the left groin. Had wound vac placed today. Now having nausea and HERRMANN. Afebrile. New wound culture sent. Patient is status post left femoral popliteal bypass for limb-threatening ischemia on 08/30/2017. Started developing severe pain in the left groin on 09/06 and she was brought to the emergency department for evaluation. She was noted to have an area of ecchymosis at the groin and the proximal thigh on the left side. PAST MEDICAL HISTORY: Diabetes mellitus, peripheral vascular disease, hypertension, hyperlipidemia, coronary artery disease, end-stage kidney disease treated with hemodialysis. PAST SURGICAL HISTORY: Appendectomy, cholecystectomy, history of coronary artery bypass graft surgery x2, history of left second toe amputation. ALLERGIES: AMLODIPINE, BUMETANIDE MEDICATIONS: Current Medications Medications (Trade) Dose Ordered Sig/Julius Route PRN Reason Start Time Stop Time Status Last Admin Dose Admin Sodium Chloride (NS Flush) 2 ml UNSCH PRN IV FLUSH FLUSH AFTER USING IV ACCESS 09/07/17 01:30 09/16/17 02:30 Sodium Chloride (NS Flush) 2 ml BID IV FLUSH 09/07/17 09:00 09/23/17 09:03 Acetaminophen (Tylenol) 650 mg Q4H PRN PO TEMP > 100.4 09/07/17 01:30 09/22/17 21:55 Ondansetron HCl (Zofran Inj) 4 mg Q6H PRN IVP NAUSEA OR VOMITING 09/07/17 01:30 09/23/17 14:35 Naloxone HCl (Narcan Inj) 0.4 mg UNSCH PRN IV PUSH SEE LABEL COMMENTS 09/07/17 01:30 Senna/Docusate Sodium (Lucinda-Colace) 1 tab BID PO 09/07/17 09:00 09/22/17 21:47 Magnesium Hydroxide (Milk Of Magnesia Liq) 30 ml Q12H PRN PO Mild constipation 09/07/17 01:30 Sennosides (Senokot) 17.2 mg Q12H PRN PO Moderate constipation 09/07/17 01:30 Bisacodyl (Dulcolax Supp) 10 mg DAILY PRN RECTAL SEVERE CONSITIPATION 09/07/17 01:30 Lactulose (Lactulose Liq) 30 ml DAILY PRN PO SEVERE CONSITIPATION 09/07/17 01:30 Morphine Sulfate (Morphine Inj) 2 mg Q3H PRN IV PUSH BREAKTHROUGH PAIN 09/07/17 01:30 09/07/17 10:15 Carvedilol (Coreg) 6.25 mg BID PO 09/07/17 09:00 09/22/17 21:46 Cinacalcet (Sensipar) 30 mg DAILY PO 09/07/17 09:00 09/23/17 08:36 Clopidogrel Bisulfate (Plavix) 75 mg DAILY PO 09/07/17 09:00 Future hold 09/19/17 08:44 Levothyroxine Sodium (Synthroid) 125 mcg DAILY@0600 PO 09/07/17 06:00 09/22/17 05:41 EZETIMIBE (Zetia) 10 mg HS PO 09/07/17 21:00 09/22/17 21:47 Atorvastatin Calcium (Lipitor) 40 mg HS PO 09/07/17 21:00 Future Hold 09/09/17 22:11 Sodium Chloride 1,000 ml @ 0 mls/hr Q0M PRN OTHER For Prime & Rinse Back 09/07/17 09:42 09/17/17 16:49 Sodium Chloride 1,000 ml @ 200 mls/hr Q5H PRN IV WITH DIALYSIS 09/07/17 09:42 Sodium Chloride 1,000 ml @ 0 mls/hr Q0M PRN OTHER WITH DIALYSIS 09/07/17 09:42 Albumin Human 100 ml @ 60 mls/hr UNSCH PRN IV WITH DIALYSIS 09/07/17 09:45 09/10/17 15:35 Sodium Chloride (NS Flush) 5 ml UNSCH PRN IV FLUSH WITH DIALYSIS 09/07/17 09:45 Heparin Sodium (Porcine) (Heparin Inj) UNSCH PRN .XX WITH DIALYSIS 09/07/17 09:45 Gentamicin Sulfate (Gentamicin Inj) 20 mg UNSCH PRN OTHER WITH DIALYSIS 09/07/17 09:45 Ondansetron HCl (Zofran Inj) 4 mg UNSCH PRN IV PUSH WITH DIALYSIS 09/07/17 09:45 Acetaminophen (Tylenol) 650 mg UNSCH PRN PO for headach, pain, temp > 101F 09/07/17 09:45 09/23/17 08:45 Diphenhydramine HCl (Benadryl) 25 mg UNSCH PRN PO for hives/itching/anaphylaxis 09/07/17 09:45 Nitroglycerin (Nitrostat Sl) 0.4 mg UNSCH PRN SL CHEST PAIN 09/07/17 09:45 Clonidine (Catapres) 0.1 mg UNSCH PRN PO for BP > 180/100 X 2 readings 09/07/17 09:45 Epoetin Dio (Epogen Inj) 8,000 units UNSCH PRN IV PUSH WITH DIALYSIS 09/07/17 09:45 09/21/17 12:03 Gelatin (Gelfoam 12 Mm/7 Mm Top) 1 foam UNSCH PRN TOP SEE LABEL COMMENTS 09/07/17 09:45 09/21/17 12:02 Piperacillin Sod/ Tazobactam Sod 50 ml @ 100 mls/hr Q8H IV 09/08/17 18:00 09/23/17 09:03 Dextrose (D50w (Vial) Inj) 50 ml UNSCH PRN IV PUSH HYPOGLYCEMIA-SEE COMMENTS 09/13/17 11:15 Glucagon (Glucagon Inj) 1 mg UNSCH PRN OTHER HYPOGLYCEMIA-SEE COMMENTS 09/13/17 11:15 Insulin Aspart (NovoLOG SUPPLEMENTAL SCALE) 1 ACHS SLIDING SCALE SQ 09/13/17 12:00 09/22/17 21:49 Gabapentin (Neurontin) 100 mg DAILY PO 09/19/17 09:00 09/23/17 08:36 Tamsulosin HCl (Flomax) 0.4 mg DAILY PO 09/20/17 10:45 09/23/17 08:36 Insulin Detemir (Levemir Inj) 12 units HS SQ 09/21/17 21:00 09/22/17 21:48 Sodium Chloride (NS Flush) DAILY IVF 09/24/17 09:00 Heparin Sodium (Porcine) (Heparin Central Flush) DAILY IV FLUSH 09/24/17 09:00 Sodium Chloride (NS Flush) UNSCH PRN IVF SEE PROTOCOL 09/23/17 13:15 Heparin Sodium (Porcine) (Heparin Central Flush) UNSCH PRN IV FLUSH SEE PROTOCOL 09/23/17 13:15 Objective: Vital Signs Date Time Temp Pulse Resp B/P (MAP) Pulse Ox O2 Delivery O2 Flow Rate FiO2 09/23/17 15:45 97.6 63 14 117/71 (86) 97 Nasal Cannula 2 09/23/17 15:30 62 14 115/71 (86) 97 Nasal Cannula 2 09/23/17 15:21 97.6 62 14 127/69 (88) 97 Nasal Cannula 2 09/23/17 12:00 09/23/17 08:00 98.2 59 18 129/60 (83) 97 09/23/17 00:00 98.1 62 16 116/56 (76) 98 09/22/17 20:00 98.2 59 16 112/51 (71) 98 Laboratory Tests Test 09/23/17 07:04 White Blood Count 8.1 TH/MM3 Red Blood Count 3.02 MIL/MM3 Hemoglobin 9.7 GM/DL Hematocrit 29.9 % Mean Corpuscular Volume 99.0 FL Mean Corpuscular Hemoglobin 32.2 PG Mean Corpuscular Hemoglobin Concent 32.5 % Red Cell Distribution Width 18.8 % Platelet Count 389 TH/MM3 Mean Platelet Volume 7.7 FL Neutrophils (%) (Auto) 70.8 % Lymphocytes (%) (Auto) 13.0 % Monocytes (%) (Auto) 12.7 % Eosinophils (%) (Auto) 2.2 % Basophils (%) (Auto) 1.3 % Neutrophils # (Auto) 5.7 TH/MM3 Lymphocytes # (Auto) 1.1 TH/MM3 Monocytes # (Auto) 1.0 TH/MM3 Eosinophils # (Auto) 0.2 TH/MM3 Basophils # (Auto) 0.1 TH/MM3 CBC Comment DIFF FINAL Differential Comment Laboratory Tests Test 09/23/17 07:04 Blood Urea Nitrogen 42 MG/DL Creatinine 5.02 MG/DL Random Glucose 162 MG/DL Calcium Level 9.7 MG/DL Sodium Level 135 MEQ/L Potassium Level 4.0 MEQ/L Chloride Level 93 MEQ/L Carbon Dioxide Level 28.0 MEQ/L Anion Gap 14 MEQ/L Estimat Glomerular Filtration Rate 8 ML/MIN Microbiology Date/Time Source Procedure Growth Status 09/23/17 14:40 Wound Groin Fungal Smear Pending Received 09/23/17 14:40 Wound Groin Fungal Culture Pending Received 09/23/17 14:40 Wound Groin Acid Fast Stain Pending Received 09/23/17 14:40 Wound Groin Mycobacterial Culture Pending Received 09/23/17 14:40 Wound Groin Gram Stain Pending Received 09/23/17 14:40 Wound Groin Wound Culture Pending Received Imaging: Catheter Placement X-Ray 09/23/17 Signed Impressions: Service Date/Time: Saturday, September 23, 2017 13:01 - CONCLUSION: Uncomplicated Purdy catheter placement as above. Keyshawn Soliman MD Lower Extremity CT 09/08/17 Signed Impressions: Service Date/Time: August 02:33 - CONCLUSION: No fracture. Postsurgical changes. Marshall Watkins MD Abdomen/Pelvis CT [id number] Signed Impressions: Service Date/Time: Wednesday, September 06, 2017 20:55 - CONCLUSION: 1. Post surgical changes in the left groin with hematoma. 2. 1.2 cm noncalcified pulmonary nodule in the right lower lobe which is nonspecific. A nonemergent outpatient chest CT is recommended for further evaluation. 3. Cortical atrophy in both kidneys. Efrem Briceño MD Lower Extremity Ultrasound 09/06/17 Signed Impressions: Service Date/Time: Wednesday, September 06, 2017 21:03 - CONCLUSION: Left groin hematoma. Efrem Briceño MD Lower Extremity CT 09/08/17 Signed Impressions: Service Date/Time: August 02:33 - CONCLUSION: No fracture. Postsurgical changes. Marshall Watkins MD Abdomen/Pelvis CT [id number] Signed Impressions: Service Date/Time: Wednesday, September 06, 2017 20:55 - CONCLUSION: 1. Post surgical changes in the left groin with hematoma. 2. 1.2 cm noncalcified pulmonary nodule in the right lower lobe which is nonspecific. A nonemergent outpatient chest CT is recommended for further evaluation. 3. Cortical atrophy in both kidneys. Efrem Briceño MD Lower Extremity Ultrasound 09/06/17 Signed Impressions: Service Date/Time: Wednesday, September 06, 2017 21:03 - CONCLUSION: Left groin hematoma. Efrem Briceño MD PHYSICAL EXAMINATION: GENERAL: Alert and oriented. No acute distress. HEENT: No icterus. Oropharynx moist mucosa without lesions. NECK: Supple without adenopathy. LUNGS: Clear to auscultation. CARDIOVASCULAR: Regular S1 and S2. No murmurs rubs or gallops. ABDOMEN: Bowel sounds present. Soft, no tenderness. EXTREMITIES: The left thigh with erythema. Wound vac in pace. 2+ edema at the upper thigh. SKIN: No diffuse rash. NEUROLOGIC: Nonfocal. PSYCHIATRIC: Calm and cooperative. IMPRESSION: 1. Infected left groin hematoma due to Klebsiella. Status post fem pop bypass with graft. 2. Cellulitis/ecchymosis of the left groin. 3. Leukocytosis secondary to infection. WBC is down to normal. 4. End-stage kidney disease on hemodialysis. RECOMMENDATIONS: 1. Continue piperacillin/tazobactam. Plan on treatment with IV antibiotics until October 07, 2017. After completion of the IV antibiotics she may need to be placed on oral antibiotics. Arrange follow-up with infectious disease physician outpatient in 1 week. 2. Monitor the new cultures. Bernardo Corrales MD Sep 23, 2017 16:29
[2017-09-23 16:31] VITALS: BP 136/60; PULSE 64; RESP 18; TEMP 98; O2SAT 100
[2017-09-23] MEDS ORDERED: ACETAMINOPHEN/CODEINE 300 MG/30 MG TAB PO PRN (16:45)
[2017-09-23] MEDS ORDERED: METOCLOPRAMIDE HCL 10 MG/2 ML VIAL IV PUSH PRN (17:00)
--- NOTE | 2017-09-23 17:37 | MP ---
cc: Shant Brothers MD DATE OF OPERATION: 09/23/2017 DATE OF PROCEDURE: 09/23/2017 PREOPERATIVE DIAGNOSIS: Infected left groin wound with hematoma. POSTOPERATIVE DIAGNOSIS: Infected left groin wound with hematoma. OPERATIVE PROCEDURE: Moderate left groin wound, evacuation subcutaneous hematoma and VAC dressing placement. SURGEON: Shant Brothers MD ANESTHESIA: LMA/local. DESCRIPTION OF PROCEDURE: With the patient in the supine position and under general anesthesia, the lower abdomen, left groin and thigh were prepped with Betadine and draped in a sterile fashion. The patient was receiving scheduled IV antibiotics and no additional IV antibiotic prophylaxis was indicated. The skin and subcutaneous tissue along the edges of the necrotic wound infiltrated with 0.5% Marcaine with epinephrine. The irregular-shaped area of skin and subcutaneous tissue necrosis was excised along the viable skin edge and to viable subcutaneous tissue. The small hematoma within the subcutaneous space was evacuated. Additional cultures were obtained. The wound was then copiously irrigated with saline and strict hemostasis achieved. A VAC dressing was placed. There were no operative complications. The patient returned to the recovery room in stable condition, having tolerated the procedure well. Shant Brothers MD JTS/KD , 05:22 PM , 05:35 PM
[2017-09-23 19:56] VITALS: BP 121/53; PULSE 62; RESP 18; TEMP 98.8; O2SAT 97
[2017-09-23] MEDS: EZETIMIBE 10 MG TAB PO SCH (21:46)
[2017-09-23] MEDS: INSULIN DETEMIR 100 UNITS/ML VIAL SQ SCH (21:48)
[2017-09-24 00:19] VITALS: BP 113/49; PULSE 62; RESP 16; TEMP 98.4; O2SAT 96
[2017-09-24] MEDS: PIPERACIL-TAZO 2.25 GM PREMIX 50 ML IV SCH ×2 (01:32→09:45)
[2017-09-24 05:12] LABS: HEMATOCRIT 28.3 % (35.0-46.0); HEMOGLOBIN 9.3 GM/DL (11.6-15.3); MEAN CELL VOLUME 99.7 FL (80.0-100.0); MEAN CORPUSCULAR HEMOGLOBIN 32.7 PG (27.0-34.0); MEAN CORPUSCULAR HGB CONC 32.8 % (32.0-36.0); MEAN PLATELET VOLUME 7.4 FL (7.0-11.0); PLATELET COUNT 381 TH/MM3 (150-450); RED BLOOD COUNT 2.84 MIL/MM3 (4.00-5.30); RED CELL DISTRIBUTION WIDTH 18.9 % (11.6-17.2); WHITE BLOOD COUNT 7.4 TH/MM3 (4.0-11.0)
[2017-09-24 05:26] LABS: ALBUMIN 2.2 GM/DL (3.4-5.0); BICARBONATE 28.4 MEQ/L (21.0-32.0); CALCIUM 8.7 MG/DL (8.5-10.1); CREATININE 4.28 MG/DL (0.50-1.00)
[2017-09-24] MEDS: LEVOTHYROXINE SODIUM 125 MCG TAB PO SCH (05:44)
[2017-09-24] MEDS: ACETAMINOPHEN 325 MG TAB PO PRN ×2 (05:45→14:34)
[2017-09-24 06:17] VITALS: BP 110/49; PULSE 63; RESP 18; TEMP 98.6; O2SAT 96
[2017-09-24 08:02] VITALS: BP 111/51; PULSE 61; RESP 20; TEMP 97.2; O2SAT 96
--- NOTE | 2017-09-24 08:19 | HHI.PR ---
Subjective Remarks Patient in the chair. Says she is no more nauseated and she is able to eat. No fever or chills. Swelling in her left leg is improving. Eager to get better. Pain is fairly controlle says christophe doesn't help. she is taking tylenol/ codeine. Denies chest pain or sob. No n/v/d/c. Objective Vitals Vital Signs Date Time Temp Pulse Resp B/P (MAP) Pulse Ox O2 Delivery O2 Flow Rate FiO2 09/24/17 08:02 97.2 61 20 111/51 (71) 96 09/24/17 06:17 98.6 63 18 110/49 (69) 96 09/24/17 00:19 98.4 62 16 113/49 (70) 96 09/23/17 19:56 98.8 62 18 121/53 (75) 97 09/23/17 16:31 98.0 64 18 136/60 (85) 100 09/23/17 15:45 97.6 63 14 117/71 (86) 97 Nasal Cannula 2 09/23/17 15:30 62 14 115/71 (86) 97 Nasal Cannula 2 09/23/17 15:21 97.6 62 14 127/69 (88) 97 Nasal Cannula 2 09/23/17 12:00 I/O 09/23/17 09/23/17 09/23/17 09/24/17 09/24/17 09/24/17 07:00 15:00 23:00 07:00 15:00 23:00 Intake Total 50 ml Output Total 2810 ml Balance -2760 ml Other 50 ml Hemodialysis 2800 ml Estimated Blood Loss 10 ml # Voids 2 Result Diagram: 09/24/17 0450 09/24/17 0450 Imaging Last Impressions Catheter Placement X-Ray 09/23/17 0000 Signed Impressions: Service Date/Time: Saturday, September 23, 2017 13:01 - CONCLUSION: Uncomplicated Purdy catheter placement as above. Keyshawn Soliman MD Lower Extremity CT 09/08/17 0000 Signed Impressions: Service Date/Time: August 02:33 - CONCLUSION: No fracture. Postsurgical changes. Marshall Watkins MD Abdomen/Pelvis CT [id number]/06/[id number] Signed Impressions: Service Date/Time: Wednesday, September 06, 2017 20:55 - CONCLUSION: 1. Post surgical changes in the left groin with hematoma. 2. 1.2 cm noncalcified pulmonary nodule in the right lower lobe which is nonspecific. A nonemergent outpatient chest CT is recommended for further evaluation. 3. Cortical atrophy in both kidneys. Efrem Briceño MD Lower Extremity Ultrasound 09/06/17 0000 Signed Impressions: Service Date/Time: Wednesday, September 06, 2017 21:03 - CONCLUSION: Left groin hematoma. Efrem Briceño MD Objective Remarks GENERAL: Alert, oriented, appears chronically ill in pain and also nauseated CARDIOVASCULAR: Regular rate and rhythm without murmurs, gallops, or rubs. RESPIRATORY: Breath sounds equal bilaterally. No accessory muscle use. GASTROINTESTINAL: Abdomen soft, non-tender, nondistended. MUSCULOSKELETAL: No cyanosis, or edema. Large wound medial left thigh now with wound vac in place. Left great toe has necrotic tip and there is some necrosis around the base of digit 4 and 5 of left foot. BACK: Nontender without obvious deformity. No CVA tenderness. Procedures None A/P Problem List: (1) Hematoma of groin ICD Code: S30.1XXA - Contusion of abdominal wall, initial encounter Status: Acute (2) Diabetes mellitus ICD Code: E11.9 - Type 2 diabetes mellitus without complications Status: Chronic (3) ESRD (end stage renal disease) on dialysis ICD Code: N18.6 - End stage renal disease; Z99.2 - Dependence on renal dialysis Status: Chronic (4) Anemia of renal disease ICD Code: D63.1 - Anemia in chronic kidney disease Status: Chronic (5) Sepsis affecting skin ICD Code: A41.9 - Sepsis, unspecified organism Status: Acute (6) Hypoglycemia associated with type 2 diabetes mellitus ICD Code: E11.649 - Type 2 diabetes mellitus with hypoglycemia without coma Status: Resolved Assessment and Plan Ms. Jarrell is a pleasant 72-year-old female with a history of ESRD, diabetes mellitus, PAD, CAD who presented to the emergency department on 09/07/2017 from [facility] due to left hip and left lower extremity pain. Patient underwent left femoral popliteal bypass and femoral endarterectomy on 08/30/2017 at [facility]. She was noted to have ecchymosis at the groin and proximal thigh on the left side. There was drainage from the surgical site. Infectious disease was consulted. Continue Zosyn 2.25 mg every 8 hours until 10/07/[address] Corrales. Patient has a wound vac placed [id number]. Infected left groin hematoma due to Klebsiella. Cellulitis of the left groin as well. Continue Zosyn 2.25 mg every 8 hours until 10/07/[address] Corrales. Consult wound care, appreciate recommendations Consult vascular surgery Plan for debridement and wound VAC placement 09/23/17 Nausea/Vomiting. Zofran, add reglan as intractable nausea Left foot toe gangrene Patient will discuss with Dr. Brothers. May need a podiatry evaluation. Diabetes mellitus insulin dependent Diabetic neuropathy Increase Levemir from 10 to 12 units nightly and medium scale sliding scale insulin. Goal blood glucose 140-180. If needed we may need to add pre-meal insulin. Continue gabapentin 100 mg daily. End-stage kidney disease on hemodialysis. HD per Nephrology Continue with electrolyte supplement CAD Hypertension Continue carvedilol 6.25 twice daily Hypothyroidism - continue levothyroxine 125 mcg daily. Full code. DVT pps - SCDs. DC plan: pending improvement S/P debridement and wound VAC placement 09/23/17 Discussed with the patient, nurse. PT/OT ff Plan to DC to inpatient rehab . Patient has wound vac. Also need antibiotic Zosyn 2.25 mg every 8 hours until 10/07/[address] Corrales. Discussed with Dr Corrales regarding abx at DC. Infusion therapy done by Dr Corrales. ' Plan to DC to [place] rehab once arrangements are done. Problem Qualifiers (1) Hematoma of groin: Qualified Codes: S30.1XXA - Contusion of abdominal wall, initial encounter (2) Diabetes mellitus: Lizzie Medeiros MD Sep 24, 2017 08:19
[2017-09-24] MEDS: CARVEDILOL 6.25 MG TAB PO SCH (09:00)
[2017-09-24] MEDS ORDERED: SODIUM CHLORIDE 0.9% FLUSH 10 ML FLUSH IVF SCH (09:00)
[2017-09-24] MEDS: SODIUM CHLORIDE 0.9% FLUSH 10 ML FLUSH IV FLUSH SCH (09:00)
[2017-09-24] MEDS: DOCUSATE SODIUM 50 MG/SENNA 8.6 MG TAB PO SCH (09:00)
[2017-09-24] MEDS: GABAPENTIN 100 MG CAP PO SCH (09:01)
[2017-09-24] MEDS: CINACALCET HYDROCHLORIDE 30 MG TAB PO SCH (09:01)
[2017-09-24] MEDS: TAMSULOSIN HCL 0.4 MG CAP PO SCH (09:01)
[2017-09-24] MEDS: INSULIN ASPART SUPPLEMENTAL SCALE SQ SCH ×2 (09:02→12:52)
[2017-09-24 11:27] VITALS: BP 120/58; PULSE 63; RESP 20; TEMP 98.2; O2SAT 98
[2017-09-24] MEDS ORDERED: PERI PO (11:29)
[2017-09-24] MEDS ORDERED: ACET1TAB94 PO (11:29)
--- NOTE | 2017-09-24 11:30 | HHI.DS ---
Discharge Summary Admission Date Sep 07, 2017 at 14:23 Discharge Date: Sep 24, 2017 Admitting Diagnosis L groin hematoma s/p Fem-Pop bypass (1) Hematoma of groin ICD Code: S30.1XXA - Contusion of abdominal wall, initial encounter Status: Acute (2) Diabetes mellitus ICD Code: E11.9 - Type 2 diabetes mellitus without complications Status: Chronic (3) ESRD (end stage renal disease) on dialysis ICD Code: N18.6 - End stage renal disease; Z99.2 - Dependence on renal dialysis Status: Chronic (4) Anemia of renal disease ICD Code: D63.1 - Anemia in chronic kidney disease Status: Chronic (5) Sepsis affecting skin ICD Code: A41.9 - Sepsis, unspecified organism Status: Acute (6) Hypoglycemia associated with type 2 diabetes mellitus ICD Code: E11.649 - Type 2 diabetes mellitus with hypoglycemia without coma Status: Resolved Procedures Moderate left groin wound, evacuation subcutaneous hematoma and VAC dressing placement by Dr Brothers Brief History - From Admission 72-year-old female with a past medical history significant for diabetes mellitus , end-stage renal disease on dialysis, peripheral vascular disease, coronary artery disease, hypertension and hyperlipidemia presents to the emergency department from [facility] for the evaluation of left hip and left lower extremity pain. The patient had a left femoral-popliteal bypass and femoral endarterectomy last Tuesday on 08/30/17 at [facility]. The patient reportedly did well and was discharged on Tuesday to rehabilitation facility after undergoing hemodialysis. She reports that her pain was not adequately treated a [facility] and yesterday it became so severe that she had an ambulance transport her to the emergency department for further evaluation. Patient denies any chest pain or shortness of breath. Denies abdominal pain. No nausea/vomiting/diarrhea. No lateralizing signs/symptoms. No weakness. CBC/BMP: 09/24/17 0450 09/24/17 0450 Significant Findings Laboratory Tests Test 09/22/17 11:46 09/23/17 07:04 09/24/17 04:50 Red Blood Count 3.02 MIL/MM3 (4.00-5.30) 2.84 MIL/MM3 (4.00-5.30) Hemoglobin 9.7 GM/DL (11.6-15.3) 9.3 GM/DL (11.6-15.3) Hematocrit 29.9 % (35.0-46.0) 28.3 % (35.0-46.0) Red Cell Distribution Width 18.8 % (11.6-17.2) 18.9 % (11.6-17.2) Neutrophils (%) (Auto) 70.8 % (16.0-70.0) Monocytes (%) (Auto) 12.7 % (0.0-8.0) Monocytes # (Auto) 1.0 TH/MM3 (0-0.9) Blood Urea Nitrogen 42 MG/DL (7-18) 30 MG/DL (7-18) Creatinine 5.02 MG/DL (0.50-1.00) 4.28 MG/DL (0.50-1.00) Random Glucose 162 MG/DL (74-106) 162 MG/DL (74-106) Sodium Level 135 MEQ/L (136-145) Chloride Level 93 MEQ/L (98-107) 95 MEQ/L (98-107) Estimat Glomerular Filtration Rate 8 ML/MIN (>89) 10 ML/MIN (>89) Albumin 2.2 GM/DL (3.4-5.0) Phosphorus Level 5.0 MG/DL (2.5-4.9) Imaging Last Impressions Catheter Placement X-Ray 09/23/17 0000 Signed Impressions: Service Date/Time: Saturday, September 23, 2017 13:01 - CONCLUSION: Uncomplicated Purdy catheter placement as above. Keyshawn Soliman MD Lower Extremity CT 09/08/17 0000 Signed Impressions: Service Date/Time: August 02:33 - CONCLUSION: No fracture. Postsurgical changes. Marshall Watkins MD Abdomen/Pelvis CT [id number]/06/[id number] Signed Impressions: Service Date/Time: Wednesday, September 06, 2017 20:55 - CONCLUSION: 1. Post surgical changes in the left groin with hematoma. 2. 1.2 cm noncalcified pulmonary nodule in the right lower lobe which is nonspecific. A nonemergent outpatient chest CT is recommended for further evaluation. 3. Cortical atrophy in both kidneys. Efrem Briceño MD Lower Extremity Ultrasound 09/06/17 0000 Signed Impressions: Service Date/Time: Wednesday, September 06, 2017 21:03 - CONCLUSION: Left groin hematoma. Efrem Briceño MD PE at Discharge GENERAL: Alert, oriented, appears chronically ill in pain and also nauseated CARDIOVASCULAR: Regular rate and rhythm without murmurs, gallops, or rubs. RESPIRATORY: Breath sounds equal bilaterally. No accessory muscle use. GASTROINTESTINAL: Abdomen soft, non-tender, nondistended. MUSCULOSKELETAL: No cyanosis, or edema. Large infected area in the medial left thigh now with wound vac in place. Left great toe has necrotic tip and there is some necrosis around the base of digit 4 and 5 of left foot. BACK: Nontender without obvious deformity. No CVA tenderness. Hospital Course Ms. Jarrell is a pleasant 72-year-old female with a history of ESRD, diabetes mellitus, PAD, CAD who presented to the emergency department on 09/07/2017 from [facility] due to left hip and left lower extremity pain. Patient underwent left femoral popliteal bypass and femoral endarterectomy on 08/30/2017 at [facility]. She was noted to have ecchymosis at the groin and proximal thigh on the left side. There was drainage from the surgical site. Infectious disease was consulted. Continue Zosyn 2.25 mg every 8 hours until 10/07/[address] Corrales. Patient has a wound vac placed [id number]. DC to [facility] in stable condition to follow up as OP with PCP and consultants. Infected left groin hematoma due to Klebsiella. Cellulitis of the left groin as well. Continue Zosyn 2.25 mg every 8 hours until 10/07/[address] Corrales. Consult wound care, appreciate recommendations Consult vascular surgery S/P Moderate left groin wound, evacuation subcutaneous hematoma and VAC dressing placement by Dr Brothers 09/23/17 Nausea/Vomiting. Zofran, add reglan as intractable nausea Left foot toe gangrene Patient will discuss with Dr. Brothers. May need a podiatry evaluation. Diabetes mellitus insulin dependent Diabetic neuropathy Increase Levemir from 10 to 12 units nightly and medium scale sliding scale insulin. Goal blood glucose 140-180. If needed we may need to add pre-meal insulin. Continue gabapentin 100 mg daily. End-stage kidney disease on hemodialysis. HD per Nephrology Continue with electrolyte supplement CAD Hypertension Continue carvedilol 6.25 twice daily Hypothyroidism - continue levothyroxine 125 mcg daily. Full code. DVT pps - SCDs. DC plan: pending improvement S/P debridement and wound VAC placement 09/23/17 Discussed with the patient, nurse. PT/OT ff Plan to DC to inpatient rehab . Patient has wound vac. Also need antibiotic Zosyn 2.25 mg every 8 hours until 10/07/[address] Corrales. Discussed with Dr Corrales regarding abx at DC. Infusion therapy done by Dr Corrales. ' DC to [facility] in stable condition to follow up as OP with PCP and consultants. Pt Condition on Discharge: Stable Discharge Disposition: Rehab Inpatient Discharge Time: > 30 minutes Discharge Instructions DIET: Follow Instructions for: Heart Healthy Diet, Diabetic Diet Activities you can perform: Regular-No Restrictions Follow up Referrals: Appointment for Follow Up - 1 Week with [facility] - 3-5 Days PCP Follow-up - 2-3 Days Urology - 2 Weeks Vascular Surgery - 2 Weeks New Medications: Piperacillin-Tazobactam Inj (Piperacillin-Tazobactam Inj) 2-0.25 Gm Inj 2.25 GM IV Q8H for Infection for 13 Days, BAG 0 Refills end date 10/07/17 Acetaminophen-Codeine (Acetaminophen-Codeine) 300-30 mg Tab 1 TAB PO Q4H PRN for PAIN SCALE 1-10, #30 TAB Sennosides-Docusate Sodium (Gnp Senna Plus 8.6-50 mg) 8.6 Mg-50 Mg Tab 1 TAB PO BID for Constipation, #60 TAB Continued Medications: Carvedilol (Carvedilol) 6.25 Mg Tab 6.25 MG PO BID, #60 TAB 0 Refills Cinacalcet (Sensipar) 30 Mg Tab 30 MG PO DAILY, #30 TAB 0 Refills Clopidogrel (Plavix) 75 Mg Tab 75 MG PO DAILY for Blood Clot Prevention, #30 TAB 0 Refills Epoetin Inj (Procrit Inj) 2,000 Unit/Ml Inj 1000 UNITS SQ TUESDAY for Anemia, #12 VIAL 0 Refills Ezetimibe-Simvastatin (Vytorin) 10-80 Mg Tab 1 TAB PO HS, #30 TAB 0 Refills Gabapentin (Gabapentin) 100 Mg Cap 100 MG PO TID for Pain Management, #60 CAP Insulin Lispro (Human) Inj (Humalog Inj) 1,000 Unit/10 Ml Vial SQ ACHS for Blood Sugar Management, #1 VIAL 0 Refills SLIDING SCALE DIRECTED Levothyroxine (Synthroid) 125 Mcg Tab 125 MCG PO DAILY for Thyroid, #30 TAB 0 Refills Nitroglycerin SL (Nitrostat SL) 0.4 Mg Subl 0.4 MG SL Q5M PRN for CHEST PAIN, #30 TAB Oxygen (O2) (Oxygen (O2)) Device LITER FLORINDA.CANULA CONTINUOUS PRN for respiratory failure , #2 Oxygen Concentrator Portable Gaseous 2 L/min via Nasal Canula Continuous For 99 months Oxygen tank (Oxygen tank) 1 Ea Tank LITER FLORINDA.CANULA CONTINUOUS for HYPOXEMIA PREVENTION, #2 Oxygen Concentrator Portable Gaseous 2 L/min via Nasal Cannula Continuous For 99 months Ranitidine (Ranitidine) 150 Mg Tab 150 MG PO BID for Heartburn Management, #60 TAB 0 Refills Sevelamer Carbonate (Renvela) 800 Mg Tab 800 MG PO TID for Control phosphorous levels, #90 TAB 0 Refills Lizzie Medeiros MD Sep 24, 2017 11:30
[2017-09-24] MEDS ORDERED: [UNRECOGNIZED DRUG - CODE] IV (11:33)
== END 2017-09-24 14:48 | DRG 919 ==
LOC: NEPC 19:44 → NEDA 22:52 → NEPHCDU 09-07 01:00 → OBSVTOIN 09-07 14:23 → N05B 09-09 19:10
PROVIDERS: ADMIT Hospitalist; ATTEND Hospitalist
PROC: 5A1D70Z Performance of Urinary Filtration, Intermittent, Less than 6 Hours Per Day (ICD-10-PCS; principal; 2017-09-07)
PROC: 0JCM3ZZ Extirpation of Matter from Left Upper Leg Subcutaneous Tissue and Fascia, Percutaneous Approach (ICD-10-PCS; 2017-09-23)
PROC: 05HM33Z Insertion of Infusion Device into Right Internal Jugular Vein, Percutaneous Approach (ICD-10-PCS; 2017-09-23)
DX: L76.32 Postprocedural hematoma of skin and subcutaneous tissue following other procedure (principal); N18.6 End stage renal disease; I13.2 Hypertensive heart and chronic kidney disease with heart failure and with stage 5 chronic kidney disease, or end stage renal disease; E11.52 Type 2 diabetes mellitus with diabetic peripheral angiopathy with gangrene; N25.81 Secondary hyperparathyroidism of renal origin; E11.21 Type 2 diabetes mellitus with diabetic nephropathy; L03.116 Cellulitis of left lower limb; I95.3 Hypotension of hemodialysis; Z68.41 Body mass index [BMI] 40.0-44.9, adult; L97.528 Non-pressure chronic ulcer of other part of left foot with other specified severity; L03.314 Cellulitis of groin; E11.40 Type 2 diabetes mellitus with diabetic neuropathy, unspecified; E11.621 Type 2 diabetes mellitus with foot ulcer; E11.22 Type 2 diabetes mellitus with diabetic chronic kidney disease; I25.10 Atherosclerotic heart disease of native coronary artery without angina pectoris; E78.5 Hyperlipidemia, unspecified; E03.9 Hypothyroidism, unspecified; Y83.2 Surgical operation with anastomosis, bypass or graft as the cause of abnormal reaction of the patient, or of later complication, without mention of misadventure at the time of the procedure; M19.90 Unspecified osteoarthritis, unspecified site; E78.00 Pure hypercholesterolemia, unspecified; E66.09 Other obesity due to excess calories; D63.1 Anemia in chronic kidney disease; E11.319 Type 2 diabetes mellitus with unspecified diabetic retinopathy without macular edema; M79.89 Other specified soft tissue disorders; E11.649 Type 2 diabetes mellitus with hypoglycemia without coma; R74.0 Nonspecific elevation of levels of transaminase and lactic acid dehydrogenase [LDH]; R33.9 Retention of urine, unspecified; R79.89 Other specified abnormal findings of blood chemistry; B96.1 Klebsiella pneumoniae [K. pneumoniae] as the cause of diseases classified elsewhere; I25.2 Old myocardial infarction; Z79.4 Long term (current) use of insulin; Z91.15 Patient's noncompliance with renal dialysis; Z79.899 Other long term (current) drug therapy; Z99.81 Dependence on supplemental oxygen; Z99.2 Dependence on renal dialysis; Z95.1 Presence of aortocoronary bypass graft; Z89.422 Acquired absence of other left toe(s); Z86.73 Personal history of transient ischemic attack (TIA), and cerebral infarction without residual deficits; T40.605A Adverse effect of unspecified narcotics, initial encounter
CPT/HCPCS: 73700; 74176; 76937; 80048; 80053; 80069; 80076; 82948; 83036; 83690; 83735; 84100; 85007; 85014; 85018; 85025; 85027; 85610; 85730; 86403; 87015; 87070; 87077; 87102; 87116; 87186; 87205; 87206; 90935; 93922; 93926; 93971; 96365; 96374; 96375; G8987-GP; G8988-GP; J0330; J1170; J1642; J1815; J2250; J2270; J2405; J2543; J3010; J3370; J7030; J7050; P9047; Q4081

== ENCOUNTER 2017-10-07 12:29 | Inpatient (IN) | payer MEDICARE, OTHER ==
[~2017-10-07] VITALS: Ht 167.6 cm; Wt 122.0 kg
[~2017-10-07 12:29] MED LIST changes: +ACET1TAB94 PO; +CARV6.252 PO; -CEFU1TAB18 PO; +CHOL1000 PO; +COMMODE 3-IN-11 MIS; +FAMO20TA2 PO; -GABA300C5 PO; +HYDR-3516 PO; -HYDR-3800 PO; -LABE100T2 PO; +LACT PO; -LACTCHW3 CHEW; +LEVEMIR SQ; +LIDOCAINE HCL 1% PF 5 ML SYRINGE OTHER ONE; +PERI PO; +PROPOFOL 200 MG/20 ML AMP IV ONE; +RANI150T PO; +SEVEL800 PO; +VYTO10TA25 PO; +WHEEMIS3; +[UNRECOGNIZED DRUG - CODE] IV; +[UNRECOGNIZED DRUG - CODE] SQ; +ePHEDrine/NS 25 MG/5 ML SYRINGE IV ONE
[2017-10-07] MEDS ORDERED: SODIUM CHLORIDE 0.9% FLUSH 10 ML FLUSH IV FLUSH PRN ×3 (13:15→17:00)
[2017-10-07] MEDS ORDERED: LIDOCAINE 1%/EPINEPHrine 1:100,000 SOLN 50 ML VIAL ONE (13:48)
[2017-10-07] MEDS ORDERED: DEXTROSE 50% IN WATER 50 ML SYRINGE ONE (13:58)
[2017-10-07] MEDS ORDERED: DO NOT ADM ANY ANTICOAGULANT DRUGS PRN (15:00)
[2017-10-07] MEDS ORDERED: ONDANSETRON HCL 4 MG/2 ML VIAL IVP PRN (15:30)
[2017-10-07] MEDS ORDERED: LACTULOSE SYRUP 20 GM/30 ML CUP PO PRN (15:30)
[2017-10-07] MEDS ORDERED: MAGNESIUM HYDROXIDE SUSP 30 ML CUP PO PRN (15:30)
[2017-10-07] MEDS ORDERED: SENNOSIDES 8.6 MG TAB PO PRN (15:30)
[2017-10-07] MEDS ORDERED: NITROGLYCERIN 0.4 MG SL 25 TABS/BTL SL PRN ×2 (15:45→17:00)
[2017-10-07] MEDS ORDERED: MORPHINE SULFATE 2 MG/ML SYRINGE IV PUSH PRN (15:45)
[2017-10-07] MEDS ORDERED: ACETAMINOPHEN 325 MG TAB PO PRN ×2 (16:00→17:00)
[2017-10-07] MEDS ORDERED: NALOXONE HCL 0.4 MG/ML AMP IV PUSH PRN (16:00)
[2017-10-07] MEDS ORDERED: SODIUM CHLOR 0.9% 1000 ML INJ 1,000 ML IV SCH (16:00)
[2017-10-07] MEDS ORDERED: BISACODYL 10 MG SUPP RECTAL PRN (16:00)
[2017-10-07] MEDS ORDERED: SODIUM CHLOR 0.9% 1000 ML INJ 1,000 ML IV PRN (16:53)
[2017-10-07] MEDS ORDERED: SODIUM CHLOR 0.9% 1000 ML INJ 1,000 ML OTHER PRN ×2 (16:53)
--- NOTE | 2017-10-07 16:53 | PD.CONS ---
HPI Service Nephrology Consult Requested By Reason for Consult Known to our services for ESRD on HD Primary Care Physician Anila (Garret) MD [place] History of Present Illness This patient is a 72-year-old female with a history of multiple medical problems including diabetes mellitus, hypertension, end-stage renal disease, anemia renal disease and peripheral vascular disease now recently status post left femoropopliteal bypass after developing subacute occlusion. Patient recently admitted with hematoma/infection complicating the femoropopliteal bypass. She has been in [facility] since 09/24, but had to have debridement of L groin hematoma this AM. Pt seen in PACU Awake and alert. No complaints at the present. Review of Systems ROS Limitations: Clinical Condition Past Family Social History Allergies: Coded Allergies: amlodipine (Unverified Allergy, Severe, 01/11/17) adhesive tape (Verified Allergy, Unknown, Generalized Itching, 09/24/17) Redness Past Medical History End-stage renal disease Diabetes mellitus Hypertension Coronary artery disease Peripheral arterial disease. Previous osteomyelitis. CVA 2. Coronary artery bypass grafting 3. Right upper extremity AV fistula. Previous left second toe amputation. Past Surgical History Right upper extremity AV fistula. Previous left second toe amputation. Left femoropopliteal bypass Hematoma debridement 10/07/17 Reported Medications Gnp Vitamin D3 Extra Stre (Cholecalciferol) 1,000 Unit Tab 1,000 Units PO DAILY Sensipar (Cinacalcet) 30 Mg Tab 30 Mg PO WITH DINNER Levemir Inj (Insulin Detemir) 1,000 unit/ 10 ML Vial 20 Units SQ DAILY 30 Days Do not mix with any other Insulin. Levemir Inj (Insulin Detemir) 1,000 unit/ 10 ML Vial 17 Units SQ HS 30 Days Do not mix with any other Insulin. Acidophilus/l-Sporogenes (Lactobacillus Acidophilus) 35 Million Cell-25 Million Cell Tab 1 Tab PO TID Famotidine 20 Mg Tab 10 Mg PO BID Gabapentin 100 Mg Cap 200 Mg PO TID Hydrocodone-Acetamin 5-325 mg (Hydrocodone/Acetaminophen) 5 Mg-325 Mg Tablet 1 Tab PO Q6H PRN Wheelchair (Device) 1 Mis Mis Ea .XX DIRECTED Commode 3-in-1 (Device) 1 Mis Mis Ea .XX DIRECTED Piperacillin-Tazobactam Inj 2-0.25 Gm Inj 2.25 Gm IV Q8H 13 Days end date 10/07/17 Gnp Senna Plus 8.6-50 mg (Sennosides-Docusate Sodium) 8.6 Mg-50 Mg Tab 1 Tab PO BID Oxygen tank (Oxygen) 1 Ea Tank Liter FLORINDA.CANULA CONTINUOUS Oxygen Concentrator Portable Gaseous 2 L/min via Nasal Cannula Continuous For 99 months Oxygen (O2) Device Liter FLORINDA.CANULA CONTINUOUS PRN Oxygen Concentrator Portable Gaseous 2 L/min via Nasal Canula Continuous For 99 months Nitrostat SL (Nitroglycerin) 0.4 Mg Subl 0.4 Mg SL Q5M PRN Reported Carvedilol 6.25 Mg Tab 6.25 Mg PO BID Renvela (Sevelamer Carbonate) 800 Mg Tab 800 Mg PO TID Vytorin (Ezetimibe-Simvastatin) 10-80 Mg Tab 1 Tab PO HS Procrit Inj (Epoetin Dio) 2,000 Unit/Ml Inj 1,000 Units SQ TUESDAY Humalog Inj (Insulin Human Lispro) 1,000 Unit/10 Ml Vial SQ ACHS SLIDING SCALE DIRECTED Synthroid (Levothyroxine Sodium) 125 Mcg Tab 125 Mcg PO DAILY Plavix (Clopidogrel Bisulfate) 75 Mg Tab 75 Mg PO DAILY Active Ordered Medications Current Medications Medications (Trade) Dose Ordered Sig/Julius Route Start Time Stop Time Status Last Admin (NS Flush) 5 ml DAILY IV FLUSH 10/08/17 09:00 (Heparin Central Flush) 500 units DAILY IV FLUSH 10/08/17 09:00 (NS Flush) 5 ml UNSCH PRN IV FLUSH 10/07/17 13:15 10/07/17 13:20 (Heparin Central Flush) 500 units UNSCH PRN IV FLUSH 10/07/17 13:15 Sodium Chloride 1,000 ml @ 75 mls/hr [id number] IV 10/07/17 16:00 (NS Flush) 2 ml UNSCH PRN IV FLUSH 10/07/17 15:30 UNV (NS Flush) 2 ml BID IV FLUSH 10/07/17 21:00 UNV (Tylenol) 650 mg Q4H PRN PO 10/07/17 16:00 (Narcan Inj) 0.4 mg UNSCH PRN IV PUSH 10/07/17 16:00 (Lucinda-Colace) 1 tab BID PO 10/07/17 21:00 (Milk Of Magnesia Liq) 30 ml Q12H PRN PO 10/07/17 15:30 (Senokot) 17.2 mg Q12H PRN PO 10/07/17 15:30 (Dulcolax Supp) 10 mg DAILY PRN RECTAL 10/07/17 16:00 (Lactulose Liq) 30 ml DAILY PRN PO 10/07/17 15:30 (Lovenox Inj) 30 mg Q24H SQ 10/07/17 17:00 UNV ([place] 5-325 Mg) 1 tab Q4H PRN PO 10/07/17 15:45 UNV (Morphine Inj) 2 mg Q4H PRN IV PUSH 10/07/17 15:45 UNV (Coreg) 6.25 mg BID PO 10/07/17 21:00 UNV (Vitamin D3) 1,000 units DAILY PO 10/08/17 09:00 UNV (Sensipar) 30 mg WITH DINNER PO 10/07/17 18:00 UNV (Plavix) 75 mg DAILY PO 10/08/17 09:00 UNV (Pepcid) 10 mg BID PO 10/07/17 21:00 UNV (Neurontin) 200 mg TID PO 10/07/17 18:00 UNV (Levemir Inj) 17 units HS SQ 10/07/17 21:00 UNV (Levemir Inj) 20 units DAILY SQ 10/08/17 09:00 UNV (Lactinex) 1 tab TID PO 10/07/17 18:00 UNV (Synthroid) 125 mcg DAILY PO 10/08/17 09:00 UNV (Nitrostat Sl) 0.4 mg Q5M PRN SL 10/07/17 15:45 UNV (Zosyn 2.25 Gm Vial) 2.25 gm Q8H IV 10/07/17 15:45 UNV (Lucinda-Colace) 1 tab BID PO 10/07/17 21:00 UNV (Renvela) 800 mg TID PO 10/07/17 18:00 UNV Non-Formulary Medication 1 tab HS PO 10/07/17 21:00 UNV (Zofran Odt) 4 mg Q6H PRN PO 10/07/17 15:45 ([facility]) ALL NURSING DEPARTME... UNSCH PRN .XX 10/07/17 15:00 10/08/17 14:59 Family History NC Social History Lives in [place] with her Previous normal ADLs Denies smoking, no EtOH, no illicits Physical Exam Vital Signs Vital Signs Date Time Temp Pulse Resp B/P (MAP) Pulse Ox O2 Delivery O2 Flow Rate FiO2 10/07/17 14:55 97.4 52 14 110/51 (70) 97 Nasal Cannula 3 Physical Exam GENERAL: Laying in PACU bed. Awake and alert. SKIN: Warm and dry. HEAD: Atraumatic. Normocephalic. EYES: Pupils equal and round. No scleral icterus. No injection or drainage. ENT: No nasal bleeding or discharge. Mucous membranes pink and moist. NECK: Trachea midline. No JVD. CARDIOVASCULAR: Regular rate and rhythm. RESPIRATORY: No accessory muscle use. Clear to auscultation. Breath sounds equal bilaterally. GASTROINTESTINAL: Abdomen soft, non-tender, nondistended. Hepatic and splenic margins not palpable. MUSCULOSKELETAL: Extremities without clubbing, cyanosis, 2+ pitting edema BLE NEUROLOGICAL: Awake and alert.Normal speech. PSYCHIATRIC: Appropriate mood and affect; insight and judgment normal. Assessment and Plan Problem List: (1) ESRD (end stage renal disease) on dialysis ICD Codes: N18.6 - End stage renal disease; Z99.2 - Dependence on renal dialysis Status: Chronic Plan: Typical HD MWF, but was held until tomorrow 2/2 to surgery today. HD 10/08 then resume MWF thereafter UF 3-3.5L as tolerated tomorrow. Continue Renvela for hyperphosphatemia Medications should be adjusted for the patient's ESRD. Avoid gadolinium (2) Hematoma of groin ICD Codes: S30.1XXA - Contusion of abdominal wall, initial encounter Status: Acute Plan: s/p debridement 10/08 Management as per vascular (3) Peripheral vascular disease ICD Codes: I73.9 - Peripheral vascular disease, unspecified Status: Acute (4) Anemia of renal disease ICD Codes: D63.1 - Anemia in chronic kidney disease Status: Chronic Plan: CBC in the AM Fe stores mildly low but will hold off on Venofer given infection. Epogen with HD (5) Diabetes mellitus type 2 with complications ICD Codes: E11.8 - Type 2 diabetes mellitus with unspecified complications Status: Chronic Plan: Mgmt as per primary (6) Secondary hyperparathyroidism of renal origin ICD Codes: N25.81 - Secondary hyperparathyroidism of renal origin Plan: Increase Sensipar to 60mg QD. PTH elevated. Goal 150-500 Add on Ergocalciferol twice monthly (7) Hypertension ICD Codes: I10 - Essential (primary) hypertension Status: Acute Ayala Simmons October 07, 2017 16:53
[2017-10-07] MEDS ORDERED: HEPARIN SODIUM - IV 10,000 UNITS/10 ML VIAL PRN (17:00)
[2017-10-07] MEDS ORDERED: ALBUMIN 25% INJ 100 ML IV PRN (17:00)
[2017-10-07] MEDS ORDERED: diphenhydrAMINE HCL 25 MG CAP PO PRN (17:00)
[2017-10-07] MEDS ORDERED: HEPARIN SODIUM - IV 10,000 UNITS/10 ML VIAL IV FLUSH PRN (17:00)
[2017-10-07] MEDS ORDERED: GENTAMICIN SULFATE 20 MG/2 ML VIAL OTHER PRN (17:00)
[2017-10-07] MEDS ORDERED: MANNITOL 12.5 GM/50 ML VIAL IV PRN (17:00)
[2017-10-07] MEDS ORDERED: cloNIDine HCL 0.1 MG TAB PO PRN (17:00)
--- NOTE | 2017-10-07 17:08 | HHI.HP ---
[facility] Physician Anila De La TorreGarretAdrianne Samaniego MD Admission Diagnosis Diagnoses: Chief Complaint: Left groin I&D and wound vac exchange Travel History International Travel<30 Days: No Contact w/Intl Traveler <30 Da: No History of Present Illness This is a 72-year-old female with a past medical history significant for diabetes, end-stage renal disease on hemodialysis Wednesdays and Fridays, peripheral vascular disease, coronary artery disease, hypertension, dyslipidemia, CHF, previous CVA x 3, hx of left foot second toe amputation and hypothyroidism who underwent a left femoral-popliteal bypass and femoral endarterectomy on August 30, [address] Brothers at [facility]. Patient had unremarkable hospital course and was discharged to a [facility] facility for rehabilitation. While at that facility patient developed increasing pain and was brought to [facility] for evaluation. Patient was admitted on September 07, 2017 for acute sepsis secondary to infected left groin hematoma which grew Klebsiella. Dr. Corrales of infectious disease was consulted and recommended patient be treated with IV Zosyn through October 07. Patient was admitted to [facility] on 09/24/17. Dr. Brothers was consulted and performed wound debridement on September 23, 2017 which was subsequently seen by wound care nurse who applied a wound VAC to left groin. While in rehab, patient was seen in consultation by Dr. Perkins of podiatry due to concern for ischemic wound on the left great toe and bony erosions seen on x-ray. Follow- up MRI failed to show any evidence of osteomyelitis and patient underwent bedside debridement of eschar. Patient is now to be admitted following repeat I &D of the left groin and application of wound VAC. Review of Systems Except as stated in HPI: all other systems reviewed are Neg Past Family Social History Past Medical History History of falls PVD CAD s/p CABG x 3 Cerebrovascular accident 3 Osteoarthritis Hypertension Congestive heart failure ESRD on HD MWF Hypothyroidism Diabetes Diabetic retinopathy Past Surgical History Femoral popliteal bypass and debridement of femoral-popliteal bypass site in August 2017 Coronary artery disease with CABG 3 Cholecystectomy Appendectomy Cataracts bilaterally Right upper extremity dialysis graft Reported Medications Gnp Vitamin D3 Extra Stre (Cholecalciferol) 1,000 Unit Tab 1,000 Units PO DAILY Sensipar (Cinacalcet) 30 Mg Tab 30 Mg PO WITH DINNER Levemir Inj (Insulin Detemir) 1,000 unit/ 10 ML Vial 20 Units SQ DAILY 30 Days Do not mix with any other Insulin. Levemir Inj (Insulin Detemir) 1,000 unit/ 10 ML Vial 17 Units SQ HS 30 Days Do not mix with any other Insulin. Acidophilus/l-Sporogenes (Lactobacillus Acidophilus) 35 Million Cell-25 Million Cell Tab 1 Tab PO TID Famotidine 20 Mg Tab 10 Mg PO BID Gabapentin 100 Mg Cap 200 Mg PO TID Hydrocodone-Acetamin 5-325 mg (Hydrocodone/Acetaminophen) 5 Mg-325 Mg Tablet 1 Tab PO Q6H PRN Wheelchair (Device) 1 Mis Mis Ea .XX DIRECTED Commode 3-in-1 (Device) 1 Mis Mis Ea .XX DIRECTED Piperacillin-Tazobactam Inj 2-0.25 Gm Inj 2.25 Gm IV Q8H 13 Days end date 10/07/17 Gnp Senna Plus 8.6-50 mg (Sennosides-Docusate Sodium) 8.6 Mg-50 Mg Tab 1 Tab PO BID Oxygen tank (Oxygen) 1 Ea Tank Liter FLORINDA.CANULA CONTINUOUS Oxygen Concentrator Portable Gaseous 2 L/min via Nasal Cannula Continuous For 99 months Oxygen (O2) Device Liter FLORINDA.CANULA CONTINUOUS PRN Oxygen Concentrator Portable Gaseous 2 L/min via Nasal Canula Continuous For 99 months Nitrostat SL (Nitroglycerin) 0.4 Mg Subl 0.4 Mg SL Q5M PRN Carvedilol 6.25 Mg Tab 6.25 Mg PO BID Renvela (Sevelamer Carbonate) 800 Mg Tab 800 Mg PO TID Vytorin (Ezetimibe-Simvastatin) 10-80 Mg Tab 1 Tab PO HS Procrit Inj (Epoetin Dio) 2,000 Unit/Ml Inj 1,000 Units SQ TUESDAY Humalog Inj (Insulin Human Lispro) 1,000 Unit/10 Ml Vial SQ ACHS SLIDING SCALE DIRECTED Synthroid (Levothyroxine Sodium) 125 Mcg Tab 125 Mcg PO DAILY Plavix (Clopidogrel Bisulfate) 75 Mg Tab 75 Mg PO DAILY Allergies: Coded Allergies: amlodipine (Unverified Allergy, Severe, 01/11/17) adhesive tape (Verified Allergy, Unknown, Generalized Itching, 09/24/17) Redness Active Ordered Medications Current Medications Medications (Trade) Dose Ordered Sig/Julius Route Start Time Stop Time Status Last Admin (NS Flush) 5 ml DAILY IV FLUSH 10/08/17 09:00 (Heparin Central Flush) 500 units DAILY IV FLUSH 10/08/17 09:00 (NS Flush) 5 ml UNSCH PRN IV FLUSH 10/07/17 13:15 10/07/17 13:20 (Heparin Central Flush) 500 units UNSCH PRN IV FLUSH 10/07/17 13:15 Sodium Chloride 1,000 ml @ 75 mls/hr [id number] IV 10/07/17 16:00 (NS Flush) 2 ml UNSCH PRN IV FLUSH 10/07/17 15:30 UNV (NS Flush) 2 ml BID IV FLUSH 10/07/17 21:00 UNV (Tylenol) 650 mg Q4H PRN PO 10/07/17 16:00 (Narcan Inj) 0.4 mg UNSCH PRN IV PUSH 10/07/17 16:00 (Lucinda-Colace) 1 tab BID PO 10/07/17 21:00 (Milk Of Magnesia Liq) 30 ml Q12H PRN PO 10/07/17 15:30 (Senokot) 17.2 mg Q12H PRN PO 10/07/17 15:30 (Dulcolax Supp) 10 mg DAILY PRN RECTAL 10/07/17 16:00 (Lactulose Liq) 30 ml DAILY PRN PO 10/07/17 15:30 (Lovenox Inj) 30 mg Q24H SQ 10/07/17 17:00 UNV ([place] 5-325 Mg) 1 tab Q4H PRN PO 10/07/17 15:45 UNV (Morphine Inj) 2 mg Q4H PRN IV PUSH 10/07/17 15:45 UNV (Coreg) 6.25 mg BID PO 10/07/17 21:00 UNV (Vitamin D3) 1,000 units DAILY PO 10/08/17 09:00 UNV (Sensipar) 30 mg WITH DINNER PO 10/07/17 18:00 UNV (Plavix) 75 mg DAILY PO 10/08/17 09:00 UNV (Pepcid) 10 mg BID PO 10/07/17 21:00 UNV (Neurontin) 200 mg TID PO 10/07/17 18:00 UNV (Levemir Inj) 17 units HS SQ 10/07/17 21:00 UNV (Levemir Inj) 20 units DAILY SQ 10/08/17 09:00 UNV (Lactinex) 1 tab TID PO 10/07/17 18:00 UNV (Synthroid) 125 mcg DAILY PO 10/08/17 09:00 UNV (Nitrostat Sl) 0.4 mg Q5M PRN SL 10/07/17 15:45 UNV (Zosyn 2.25 Gm Vial) 2.25 gm Q8H IV 10/07/17 15:45 UNV (Lucinda-Colace) 1 tab BID PO 10/07/17 21:00 UNV (Renvela) 800 mg TID PO 10/07/17 18:00 UNV Non-Formulary Medication 1 tab HS PO 10/07/17 21:00 UNV (Zofran Odt) 4 mg Q6H PRN PO 10/07/17 15:45 ([facility] ALL NURSING DEPARTME... UNSCH PRN .XX 10/07/17 15:00 10/08/17 14:59 Family History Mother, at age 72 with lung cancer was a smoker Father, in his 80s due to congestive heart failure Social History Patient denies any tobacco use, alcohol consumption or illicit drug use. Physical Exam Vital Signs Vital Signs Date Time Temp Pulse Resp B/P (MAP) Pulse Ox O2 Delivery O2 Flow Rate FiO2 10/07/17 14:55 97.4 52 14 110/51 (70) 97 Nasal Cannula 3 Physical Exam GENERAL: This is an overweight well-nourished, well-developed female patient, in no apparent distress. Awake and alert. SKIN: Warm and dry. Left groin large wound with dry and intact wound VAC with surrounding erythema and edema. HEAD: Atraumatic. Normocephalic. No temporal or scalp tenderness. EYES: Pupils equal round and reactive. Extraocular motions intact. No scleral icterus. No injection or drainage. ENT: Nose without bleeding, purulent drainage or septal hematoma. Throat without erythema, tonsillar hypertrophy or exudate. Uvula midline. Airway patent. NECK: Trachea midline. No JVD or lymphadenopathy. Supple, nontender, no meningeal signs. CARDIOVASCULAR: Regular rate and rhythm without murmurs, gallops, or rubs. RESPIRATORY: Clear to auscultation. Breath sounds equal bilaterally. No wheezes , rales, or rhonchi. GASTROINTESTINAL: Abdomen soft, non-tender, nondistended. No hepato-splenomegaly , or palpable masses. No guarding. MUSCULOSKELETAL: Extremities without clubbing or cyanosis. No joint tenderness, effusion, or edema noted. Bilateral lower extremity edema pitting 2+. s/p left 2nd toe amputation. Right foot first digit s/p removal of eschar with small 1x1cm wound noted over distal aspect, left fourth interspace ulceration noted. Left foot ulceration with granulation noted at base. Right heel DTI. NEUROLOGICAL: Awake and alert. Cranial nerves II through XII grossly intact. Motor and sensory grossly within normal limits. No focal neurologic findings appreciated. Normal speech. Caprini VTE Risk Assessment Caprini VTE Risk Assessment: Mod/High Risk (score >= 2) Caprini Risk Assessment Model Point Value = 1 Point Value = 2 Point Value = 3 Point Value = 5 Age 41-60 Minor surgery BMI > 25 kg/m2 Swollen legs Varicose veins or History of unexplained or recurrent spontaneous Oral contraceptives or hormone replacement Sepsis (< 1 month) Serious lung disease, including pneumonia (< 1 month) Abnormal pulmonary function Acute myocardial infarction Congestive heart failure (< 1 month) History of inflammatory bowel disease Medical patient at bed rest Age 61-74 Arthroscopic surgery Major open surgery (> 45 min) Laparoscopic surgery (> 45 min) Malignancy Confined to bed (> 72 hours) Immobilizing plaster cast Central venous access Age >= 75 History of VTE Family history of VTE Factor V Leiden Prothrombin [id number] Lupus anticoagulant Anticardiolipin antibodies Elevated serum homocysteine Heparin-induced thrombocytopenia Other congenital or acquired thrombophilia Stroke (< 1 month) Elective arthroplasty Hip, pelvis, or leg fracture Acute spinal cord injury (< 1 month) Prophylaxis Regimen Total Risk Factor Score Risk Level Prophylaxis Regimen 0-1 Low Early ambulation 2 Moderate Order ONE of the following: *Sequential Compression Device (SCD) *Heparin 5000 units SQ BID 3-4 Higher Order ONE of the following medications: *Heparin 5000 units SQ TID *Enoxaparin/Lovenox 40 mg SQ daily (WT < 150 kg, CrCl > 30 mL/min) *Enoxaparin/Lovenox 30 mg SQ daily (WT < 150 kg, CrCl > 10-29 mL/min) *Enoxaparin/Lovenox 30 mg SQ BID (WT < 150 kg, CrCl > 30 mL/min) AND/OR *Sequential Compression Device (SCD) 5 or more Highest Order ONE of the following medications: *Heparin 5000 units SQ TID (Preferred with Epidurals) *Enoxaparin/Lovenox 40 mg SQ daily (WT < 150 kg, CrCl > 30 mL/min) *Enoxaparin/Lovenox 30 mg SQ daily (WT < 150 kg, CrCl > 10-29 mL/min) *Enoxaparin/Lovenox 30 mg SQ BID (WT < 150 kg, CrCl > 30 mL/min) AND *Sequential Compression Device (SCD) Assessment and Plan Assessment and Plan Infected left groin hematoma due to Klebsiella Cellulitis left groin On IV Zosyn Status post debridement and application of wound VAC Patient to undergo repeat debridement left groin by Dr. Brothers -Postop management per Dr. Brothers -Follow-up on intraoperative wound culture results -Continue on IV Zosyn -Consult ID, appreciate assistance -Pain management with bowel regimen -PT/OT eval/tx CAD s/p CABG x3 CHF, not in acute exacerbation HTN -Continue on Coreg 6.25 mg twice daily -Monitor for evidence of fluid overload -Monitor BP and adjust treatment according End-stage renal disease on hemodialysis Tuesday -Consult nephrology to resume hemodialysis -resume Lalita DM -Heart healthy diabetic diet -Resume patient on scheduled insulin Levemir 20 units daily, 17 units nightly -Accu-Cheks and insulin sliding scale Hx of CVA -Continue on Plavix and statin therapy Deep tissue injury right Wound left great toe -wound care per Dr. Perkins's orders -pressure relief/off loading, heel raiser boot Hypothyroidism -Resume patient on home dose of levothyroxine 125 mcg daily DVT prophylaxis -Lovenox sq Discussed Condition With Dr. Medeiros Physician Certification 2 Midnight Certification Type: Admission for Inpatient Services Order for Inpatient Services The services are ordered in accordance with Medicare regulations or non- Medicare payer requirements, as applicable. In the case of services not specified as inpatient-only, they are appropriately provided as inpatient services in accordance with the 2-midnight benchmark. Estimated LOS (days): 3 3 days is the estimated time the patient will need to remain in the hospital, assuming treatment plan goals are met and no additional complications. Post-Hospital Plan: Not yet determined Yane Lr October 07, 2017 17:08
[2017-10-07] MEDS ORDERED: ERGOCALCIFEROL (VIT D2) 50,000 UNIT CAP PO SCH (18:00)
[2017-10-07] MEDS ORDERED: PIPERACILLIN/TAZOBACTAM SOD 2.25 GM VIAL IV SCH (18:00)
[2017-10-07] MEDS: CINACALCET HYDROCHLORIDE 30 MG TAB PO SCH (18:00)
[2017-10-07] MEDS ORDERED: CINACALCET HYDROCHLORIDE 30 MG TAB PO SCH (18:00)
[2017-10-07] MEDS: SEVELAMER CARBONATE 800 MG TAB PO SCH (18:00)
[2017-10-07] MEDS ORDERED: PIPERACIL-TAZO 2.25 GM PREMIX 50 ML IV SCH ×2 (18:00→18:15)
[2017-10-07] MEDS: PIPERACIL-TAZO 2.25 GM PREMIX 50 ML IV SCH (18:20)
[2017-10-07] MEDS: GABAPENTIN 100 MG CAP PO SCH (18:49)
[2017-10-07] MEDS: LACTOBACILLUS ACIDOPHILUS TAB PO SCH (18:50)
[2017-10-07 20:00] VITALS: BP 139/61; PULSE 51; RESP 18; O2SAT 98
[2017-10-07] MEDS: ENOXAPARIN SODIUM 30 MG/0.3 ML SYRINGE SQ SCH (20:00)
[2017-10-07] MEDS: SODIUM CHLORIDE 0.9% FLUSH 10 ML FLUSH IV FLUSH SCH (20:24)
[2017-10-07] MEDS: ATORVASTATIN 40 MG TAB PO SCH (20:26)
[2017-10-07] MEDS: CARVEDILOL 6.25 MG TAB PO SCH (20:26)
[2017-10-07] MEDS: FAMOTIDINE 20 MG TAB PO SCH (20:27)
[2017-10-07] MEDS: DOCUSATE SODIUM 50 MG/SENNA 8.6 MG TAB PO SCH (20:27)
[2017-10-07] MEDS: INSULIN DETEMIR 100 UNITS/ML VIAL SQ SCH (20:28)
[2017-10-07] MEDS ORDERED: DOCUSATE SODIUM 50 MG/SENNA 8.6 MG TAB PO SCH (21:00)
[2017-10-07] MEDS ORDERED: NON-FORMULARY DRUG (Ezetimibe-Simvastatin (Vytorin) 1 TAB) PO SCH (21:00)
--- NOTE | 2017-10-07 21:37 | RADRPT ---
EXAM DATE/TIME: 10/07/2017 21:04 [place] COMPARISON: No previous studies available for comparison. INDICATIONS : Persistent left groin wound infection status post fempop bypass ORAL CONTRAST: No oral contrast ingested. RADIATION DOSE: 15.54 CTDIvol (mGy) MEDICAL HISTORY : Renal failure, chronic. Diabetes mellitus type 1. Hypertension.CVA, CHF SURGICAL HISTORY : None. ENCOUNTER: Initial ACUITY: 1 day PAIN SCALE: 6/10 LOCATION: Left groin TECHNIQUE: Volumetric scanning of the pelvis was performed. Using automated exposure control and adjustment of the mA and/or kV according to patient size, radiation dose was kept as low as reasonably achievable t o obtain optimal diagnostic quality images. DICOM format image data is available electronically for review and comparison. FINDINGS: There is an open wound involving the left groin. There is subcutaneous edema seen throughout the visu alized portions of the pelvis including the proximal left thigh. There is fluid circumferential aroun d the proximal femoropopliteal bypass. No air associated with this. The fluid extends for approximate ly 1.5 cm along the proximal bypass. Heavily calcified atherosclerotic plaque is seen involving the n ative vessels. The uterus is unremarkable. Visualized abdominal viscera are unremarkable. No free air or free fluid. CONCLUSION: 1. Large soft tissue defect involving the left groin which does not reach the bypass. Intact soft tis anthony is noted surrounding the bypass. There is a small amount of circumferential fluid surrounding the proximal bypass. 2. Anasarca. Ryan Nugent Jr., MD on October 07, 2017 at 21:31 Board Certified Radiologist. This report was verified electronically.
[2017-10-08] VITALS: BP 104/58; PULSE 52; RESP 18; TEMP 93.5; O2SAT 96
[2017-10-08 01:31] VITALS: O2SAT 95
[2017-10-08] MEDS: PIPERACIL-TAZO 2.25 GM PREMIX 50 ML IV SCH ×3 (02:41→17:55)
[2017-10-08] MEDS: LEVOTHYROXINE SODIUM 125 MCG TAB PO SCH (06:14)
[2017-10-08 06:53] LABS: AUTOMATED NEUTROPHIL # 6.8 TH/MM3 (1.8-7.7); BASOPHIL # 0.1 TH/MM3 (0-0.2); BASOPHIL % 1.1 % (0.0-2.0); EOSINOPHIL # 0.3 TH/MM3 (0-0.4); EOSINOPHIL % 2.8 % (0.0-4.0); HEMOGLOBIN 10.6 GM/DL (11.6-15.3); LYMPH % 10.5 % (9.0-44.0); MEAN CELL VOLUME 96.5 FL (80.0-100.0); MEAN CORPUSCULAR HGB CONC 32.2 % (32.0-36.0); MEAN PLATELET VOLUME 8.2 FL (7.0-11.0); MONO % 13.1 % (0.0-8.0); MONOCYTE # 1.2 TH/MM3 (0-0.9); NEUT % 72.5 % (16.0-70.0); PLATELET COUNT 229 TH/MM3 (150-450); RED BLOOD COUNT 3.42 MIL/MM3 (4.00-5.30); RED CELL DISTRIBUTION WIDTH 18.9 % (11.6-17.2); WHITE BLOOD COUNT 9.4 TH/MM3 (4.0-11.0)
[2017-10-08 07:12] LABS: BICARBONATE 28.1 MEQ/L (21.0-32.0); CREATININE 5.6 MG/DL (0.50-1.00); PHOSPHORUS 6.2 MG/DL (2.5-4.9)
[2017-10-08 08:00] VITALS: BP 139/63; PULSE 58; RESP 17; TEMP 97.6; O2SAT 97
[2017-10-08] MEDS: INSULIN DETEMIR 100 UNITS/ML VIAL SQ SCH ×2 (09:00→21:28)
[2017-10-08] MEDS: SODIUM CHLORIDE 0.9% FLUSH 10 ML FLUSH IV FLUSH SCH ×2 (09:00→21:28)
[2017-10-08] MEDS: DOCUSATE SODIUM 50 MG/SENNA 8.6 MG TAB PO SCH ×2 (09:00→21:28)
[2017-10-08] MEDS: EPOETIN ALFA 10,000 UNITS/ML VIAL IV PUSH PRN (11:39)
[2017-10-08] MEDS: LACTOBACILLUS ACIDOPHILUS TAB PO SCH ×3 (13:00→17:56)
[2017-10-08] MEDS: SEVELAMER CARBONATE 800 MG TAB PO SCH ×3 (13:00→17:56)
[2017-10-08] MEDS: GABAPENTIN 100 MG CAP PO SCH ×3 (13:00→17:56)
[2017-10-08] MEDS: FAMOTIDINE 20 MG TAB PO SCH ×2 (13:15→21:28)
[2017-10-08] MEDS: ACETAMINOPHEN/HYDROcodone 325 MG/5 MG TAB PO PRN ×2 (13:16→17:57)
[2017-10-08] MEDS: EZETIMIBE 10 MG TAB PO SCH (13:16)
[2017-10-08] MEDS: CLOPIDOGREL 75 MG TAB PO SCH (13:16)
[2017-10-08] MEDS: CARVEDILOL 6.25 MG TAB PO SCH ×2 (13:16→21:28)
[2017-10-08] MEDS: Hickman Catheter Daily NS Lock Flush IV FLUSH SCH (13:57)
[2017-10-08] MEDS: CHOLECALCIFEROL (VIT D3) 1000 UNIT TAB PO SCH (14:14)
[2017-10-08] MEDS ORDERED: PHARMACY INFORMATION XX PRN ×3 (14:15)
[2017-10-08] MEDS ORDERED: ASP: Other exception documentation: ( ) PRN (14:15)
[2017-10-08] MEDS: FLUCONAZOLE 100 MG PREMIX BAG 50 ML IV SCH (15:44)
[2017-10-08] MEDS: MEROPENEM INJ 500 MG in SODIUM CHLORIDE 0.9% INJ 100 ML IV SCH ×2 (15:45→17:55)
[2017-10-08 16:00] VITALS: BP 130/60; PULSE 61; RESP 17; TEMP 97.8; O2SAT 95
[2017-10-08 17:41] VITALS: O2SAT 97
[2017-10-08] MEDS: CINACALCET HYDROCHLORIDE 30 MG TAB PO SCH (17:56)
--- NOTE | 2017-10-08 18:04 | MB ---
cc: Bernardo Corrales MD, Franklyn F MD DATE: 10/08/2017 REQUESTING PHYSICIAN: Dr. Medeiros. CHIEF COMPLAINT: Left groin wound. HISTORY OF PRESENT ILLNESS: This is a 72-year-old white female who is known to me from previous hospitalizations. The patient has had a wound in the left groin, which was being treated with IV antibiotics. She had a culture showing Klebsiella and she received IV antibiotics with piperacillin/tazobactam which was started on 09/07/2017. The plan was to continue that treatment until 10/07. The patient was in rehabilitation at [facility]. The wound did not appear to be showing signs of healing and she was evaluated and taken to surgery yesterday. She was found to have very poor tissue and some necrosis of the fat. She underwent debridement and new cultures were taken. The wound is now opened and being packed with surgical dressings. The wound was noted to be getting larger. The patient had previous wound VAC in place and that did not seem to be leading to any improvement as would be expected. The previous culture from the wound had Klebsiella. The new culture is now showing gram-negative lucien from yesterday's procedure. Mrs. Jarrell is afebrile. She has pain in the area of the debridement of the left groin. Her white count is normal. CT scan of the pelvis was performed and it showed a large soft tissue defect involving the left groin, which does not reach the bypass. She had previous femoral bypass surgery. There was intact soft tissue noted surrounding the bypass. The patient has end-stage renal disease, and she undergoes hemodialysis. She has had past history of nonhealing wound before, including the wound at the left tibia, and she had developed some skin breakdown between toes 4 and 5 on the left foot and she was seen by podiatry recently on 10/06/2017. An eschar was removed from the left hallux and there was no signs of ischemia noted. The right heel wound was treated with dressing changes. There was no osteomyelitis noted on MRI of the left foot. The patient states that she has pain in the left groin. She is awake and alert. The pain is her only complaint. PAST MEDICAL HISTORY: Diabetes mellitus, hypertension, peripheral vascular disease, hyperlipidemia, coronary artery disease, end-stage renal disease treated with hemodialysis. Left femoral artery bypass surgery on 08/30/2017 with graft. ALLERGIES: AMLODIPINE, ADHESIVE TAPE. MEDICATIONS: 1. Piperacillin/tazobactam. 2. Vitamin D3. 3. Plavix. 4. Insulin 5. Zetia. 6. Synthroid. 7. Coreg. 8. Pepcid. 9. Levemir. 10. Lucinda-Colace. 11. Lovenox. 12. Lipitor. 13. Lactinex, 14. Neurontin. 15. Renvela. 16. Sensipar. 17. Ergocalciferol. 18. Epogen 19. [place] 5 p.r.n. SOCIAL HISTORY: The patient is . No tobacco, alcohol or illicit drugs. FAMILY HISTORY: Noncontributory. REVIEW OF SYSTEMS: Significant for pain in the left groin. Otherwise, negative on 10-point review of systems. PHYSICAL EXAMINATION: GENERAL: This is a well-developed female who is in no acute distress. She is awake and alert. VITAL SIGNS: Temperature 97.6, BP 139/63, respirations 17, heart rate 58. HEENT: Extraocular movements are grossly intact. Pupils reactive to light. No icterus. No conjunctival erythema. Oropharynx moist mucosa. No visible lesions. No thrush. NECK: Supple without adenopathy or swelling. LUNGS: Clear breath sounds bilateral. No rhonchi. HEART: Regular rate and rhythm. No murmurs, rubs or gallops. ABDOMEN: Bowel sounds, moderately obese, soft, nontender. RECTAL: Not performed. GROIN: The left groin has an open wound with very good clean base tissue. No visible surrounding erythema. The left foot has a surgical dressing over the heel and interspace between the fourth and fifth toes. EXTREMITIES: No clubbing, cyanosis or edema. SKIN: No rash. NEUROLOGIC: No gross focal findings. PSYCHIATRIC: The patient is calm and cooperative. LABORATORY DATA: WBC 9.4, platelets 229, 72% neutrophils, hemoglobin 10.6. Creatinine 5.6, BUN 42, estimated GFR 7. Sodium 132. IMPRESSION: 1. Wound infection of the left groin, nonhealing. Poorly responsive, despite adequate antibiotic for previous bacteria recovered. New culture showing gram-negative lucien. 2. Status post femoral bypass with graft. The graft does not appear to be involved with the wound or infection. 3. Poor wound healing, which could be due to some underlying clinical condition which prevents adequate healing. Also, we need to consider the possibility that there could also be underlying pyoderma gangrenosum. There was noted to be necrosis in the fat tissue upon surgery. RECOMMENDATIONS: 1. Continue the piperacillin. 2. Add meropenem for extended gram negative coverage. 3. Add Diflucan for potential yeast. 4. Add Flagyl to cover potential anaerobes. 5. Monitor the wound closely. 6. Consider sending tissue for pathology evaluation. 7. Continue to follow closely. If there is still difficulty healing the wound, the patient may benefit from hyperbaric oxygen treatments, if that is available and feasible. The patient has end-stage renal disease and she has to go for hemodialysis 3 times a week and hyperbaric chamber treatment sometimes has to be done on a daily basis. Thank you for this consultation. I will monitor the patient's progress along with you. MD INGA Campuzano/ , 02:47 PM , 06:02 PM
[2017-10-08 20:00] VITALS: BP 141/65; PULSE 61; RESP 18; TEMP 98; O2SAT 92
[2017-10-08] MEDS: ENOXAPARIN SODIUM 30 MG/0.3 ML SYRINGE SQ SCH (21:27)
[2017-10-08] MEDS: metroNIDAZOLE 500 MG TAB PO SCH (21:28)
[2017-10-08] MEDS: ATORVASTATIN 40 MG TAB PO SCH (21:28)
[2017-10-09] VITALS (7 sets, daily range): BP systolic 129–147; BP diastolic 58–65; PULSE 44–65; RESP 17–20; TEMP 97.2–98.1; O2SAT 94–97
[2017-10-09] MEDS: PIPERACIL-TAZO 2.25 GM PREMIX 50 ML IV SCH ×3 (00:54→17:04)
[2017-10-09] MEDS: LEVOTHYROXINE SODIUM 125 MCG TAB PO SCH (05:13)
[2017-10-09] MEDS: metroNIDAZOLE 500 MG TAB PO SCH ×3 (05:13→20:48)
[2017-10-09] MEDS: SEVELAMER CARBONATE 800 MG TAB PO SCH ×3 (08:12→17:03)
[2017-10-09] MEDS: FAMOTIDINE 20 MG TAB PO SCH ×2 (08:12→20:49)
[2017-10-09] MEDS: LACTOBACILLUS ACIDOPHILUS TAB PO SCH ×3 (08:12→17:03)
[2017-10-09] MEDS: Hickman Catheter Daily NS Lock Flush IV FLUSH SCH (08:13)
[2017-10-09] MEDS: CARVEDILOL 6.25 MG TAB PO SCH ×2 (08:13→20:49)
[2017-10-09] MEDS: CLOPIDOGREL 75 MG TAB PO SCH (08:13)
[2017-10-09] MEDS: EZETIMIBE 10 MG TAB PO SCH (08:13)
[2017-10-09] MEDS: CHOLECALCIFEROL (VIT D3) 1000 UNIT TAB PO SCH (08:13)
[2017-10-09] MEDS: DOCUSATE SODIUM 50 MG/SENNA 8.6 MG TAB PO SCH ×2 (08:13→20:48)
[2017-10-09] MEDS: GABAPENTIN 100 MG CAP PO SCH ×3 (08:13→17:03)
[2017-10-09] MEDS: SODIUM CHLORIDE 0.9% FLUSH 10 ML FLUSH IV FLUSH SCH ×2 (08:14→20:49)
[2017-10-09] MEDS: INSULIN DETEMIR 100 UNITS/ML VIAL SQ SCH ×2 (08:16→20:49)
[2017-10-09] MEDS: ACETAMINOPHEN/HYDROcodone 325 MG/5 MG TAB PO PRN (08:18)
--- NOTE | 2017-10-09 12:24 | HHI.NPPN ---
Subjective History of Present Illness This patient is a 72-year-old female with a history of multiple medical problems including diabetes mellitus, hypertension, end-stage renal disease, anemia renal disease and peripheral vascular disease now recently status post left femoropopliteal bypass after developing subacute occlusion. Patient recently admitted with hematoma/infection complicating the femoropopliteal bypass. She has been in [facility] since 09/24, but had to have debridement of L groin hematoma this AM. Interval History Patient lying in bed having her wound dressed. No verbal complaints. Objective Data Data Vital Signs Date Time Temp Pulse Resp B/P (MAP) Pulse Ox O2 Delivery O2 Flow Rate FiO2 10/09/17 08:00 98.1 65 17 136/63 (87) 97 10/09/17 00:00 98.0 55 20 129/58 (81) 94 10/08/17 20:00 98.0 61 18 141/65 (90) 92 10/08/17 17:41 97 21 10/08/17 16:00 97.8 61 17 130/60 (83) 95 -: 10/08/17 0618 10/08/17 0618 Physical Exam General Appearance: Well Developed, No Acute Distress, Comfortable Eyes Eye Exam: Sclera White Pulmonary Resp Exam: Clear Bilaterally, Breath Sounds Equal, No Distress Cardiology CV Exam: Regular, Normal Sinus Rhythm Gastrointestinal/Abdomen GI Exam: Soft, Non-Tender Integumentary Skin Exam: Clear, Warm Extremeties Extremities Exam: Trace Edema Assessment/Plan Discussed Condition With: Patient Problem List: (1) ESRD (end stage renal disease) on dialysis ICD Codes: N18.6 - End stage renal disease; Z99.2 - Dependence on renal dialysis Status: Chronic Plan: Hemodialysis to continue Tuesday and Tuesday starting tomorrow. Infectious disease consult reviewed. If hyperbaric possible we will try and coordinate dialysis with same. Continue Renvela for hyperphosphatemia. Medications should be adjusted for the patient's ESRD. Avoid gadolinium (2) Hematoma of groin ICD Codes: S30.1XXA - Contusion of abdominal wall, initial encounter Status: Acute Plan: s/p debridement 10/08 Management as per vascular and infectious disease (3) Peripheral vascular disease ICD Codes: I73.9 - Peripheral vascular disease, unspecified Status: Acute (4) Anemia of renal disease ICD Codes: D63.1 - Anemia in chronic kidney disease Status: Chronic Plan: CBC in the AM Fe stores mildly low but will hold off on Venofer given infection. Epogen with HD (5) Diabetes mellitus type 2 with complications ICD Codes: E11.8 - Type 2 diabetes mellitus with unspecified complications Status: Chronic Plan: Mgmt as per primary (6) Secondary hyperparathyroidism of renal origin ICD Codes: N25.81 - Secondary hyperparathyroidism of renal origin Plan: Increase Sensipar to 60mg QD. PTH elevated. Goal 150-500 Add on Ergocalciferol twice monthly (7) Hypertension ICD Codes: I10 - Essential (primary) hypertension Status: Acute Kimberly Sampson MD October 09, 2017 12:24
[2017-10-09] MEDS: FLUCONAZOLE 100 MG PREMIX BAG 50 ML IV SCH (15:23)
[2017-10-09] MEDS ORDERED: GLUCAGON 1 MG/ML VIAL OTHER PRN (16:45)
[2017-10-09] MEDS ORDERED: PLEASE DISCONTINUE PREVIOUS SUPPLEMENTAL SCALE INSULIN ORDERS ONE (16:45)
[2017-10-09] MEDS ORDERED: DEXTROSE 50% IN WATER 50 ML VIAL(D50) IV PUSH PRN (16:45)
[2017-10-09] MEDS: CINACALCET HYDROCHLORIDE 30 MG TAB PO SCH (17:03)
[2017-10-09] MEDS: MEDIUM DOSE INSULIN NOVOLOG SUPPLEMENTAL SCALE SQ SCH ×2 (17:09→20:50)
[2017-10-09] MEDS: ENOXAPARIN SODIUM 30 MG/0.3 ML SYRINGE SQ SCH (20:49)
[2017-10-09] MEDS: ATORVASTATIN 40 MG TAB PO SCH (20:49)
[2017-10-10] VITALS: BP 144/95; PULSE 65; RESP 18; TEMP 98.4; O2SAT 96
[2017-10-10] MEDS: PIPERACIL-TAZO 2.25 GM PREMIX 50 ML IV SCH ×2 (01:46→10:33)
[2017-10-10] MEDS: metroNIDAZOLE 500 MG TAB PO SCH ×3 (05:39→22:09)
[2017-10-10] MEDS: LEVOTHYROXINE SODIUM 125 MCG TAB PO SCH (05:39)
[2017-10-10 08:00] VITALS: BP 141/60; PULSE 59; RESP 18; TEMP 98.6; O2SAT 96
[2017-10-10] MEDS: MEDIUM DOSE INSULIN NOVOLOG SUPPLEMENTAL SCALE SQ SCH ×4 (08:00→21:00)
[2017-10-10] MEDS: DOCUSATE SODIUM 50 MG/SENNA 8.6 MG TAB PO SCH ×2 (09:00→22:09)
[2017-10-10] MEDS: EZETIMIBE 10 MG TAB PO SCH (09:00)
[2017-10-10] MEDS: CARVEDILOL 6.25 MG TAB PO SCH ×2 (09:00→22:09)
[2017-10-10] MEDS: Hickman Catheter Daily NS Lock Flush IV FLUSH SCH (10:18)
[2017-10-10] MEDS: SODIUM CHLORIDE 0.9% FLUSH 10 ML FLUSH IV FLUSH SCH ×2 (10:19→22:09)
[2017-10-10] MEDS: LACTOBACILLUS ACIDOPHILUS TAB PO SCH ×3 (10:20→18:39)
[2017-10-10] MEDS: GABAPENTIN 100 MG CAP PO SCH ×3 (10:20→18:39)
[2017-10-10] MEDS: CLOPIDOGREL 75 MG TAB PO SCH (10:21)
[2017-10-10] MEDS: FAMOTIDINE 20 MG TAB PO SCH ×2 (10:21→22:08)
[2017-10-10] MEDS: CHOLECALCIFEROL (VIT D3) 1000 UNIT TAB PO SCH (10:22)
[2017-10-10] MEDS: SEVELAMER CARBONATE 800 MG TAB PO SCH ×3 (10:22→18:39)
[2017-10-10] MEDS: INSULIN DETEMIR 100 UNITS/ML VIAL SQ SCH ×2 (10:33→22:10)
[2017-10-10 10:35] VITALS: O2SAT 96
[2017-10-10] MEDS: ACETAMINOPHEN/HYDROcodone 325 MG/5 MG TAB PO PRN ×3 (10:45→22:09)
[2017-10-10 12:00] VITALS: BP 153/65; PULSE 54; RESP 20; TEMP 98.2; O2SAT 95
--- NOTE | 2017-10-10 14:34 | MP ---
cc: Shant Brothers MD, Donald DPM DATE OF OPERATION: 10/07/2017 PREOPERATIVE DIAGNOSIS: Left groin wound infection with subcutaneous tissue necrosis. POSTOPERATIVE DIAGNOSIS: Left groin wound infection with subcutaneous tissue necrosis. OPERATIVE PROCEDURE: Debridement, left groin wound. SURGEON: Shant Brothers MD ANESTHESIA: General/local. HISTORY: On 08/25, this 72-year-old hypertensive, type 2 diabetic female with end-stage renal disease requiring maintenance hemodialysis due to diabetic nephropathy required left femoral popliteal revascularization for progressive ischemic necrosis involving the left great toe and associated cellulitis within the left foot. Unfortunately, both preoperative mapping venous ultrasound and intraoperative findings revealed inadequate autogenous tissue for an autogenous below knee bypass. Thus, a prosthetic PTFE graft was required. Due to prolonged hospitalization leading up to the bypass and brief postoperative hospital course, she was extremely debilitated. She was transferred to a rehab facility. At the time of discharge from [facility], she was afebrile and the left femoral and popliteal exposure incisions appeared to be healing without complication. However, 3 days later, the left groin incision became inflamed with serous drainage, and she was subsequently admitted to this hospital for further evaluation and management. Initial CT scan revealed a small subcutaneous hematoma within the left groin wound, but no evidence of fluid or gas suggestive of abscess. The femoral anastomosis appeared fairly well encompassed by viable muscle and adipose tissue. She was initially treated with superficial wound dressing changes and broad spectrum IV antibiotics as directed by culture and sensitivity reports. Progressive inflammation and development of superficial subcutaneous necrosis required initial debridement, at which time a VAC dressing was applied. She was subsequently transferred to [facility] for much needed physical therapy to arrest her declining physical status. Despite the above measures, wound necrosis appeared to be progressing along the edges of the previous debridement. During this time, the ischemic necrosis that had developed within her left great toe became well demarcated and both physical and Doppler examination suggested continued wide patency of the femoral popliteal bypass. 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 She is returned to the operating room this afternoon for additional wound debridement. The VAC dressing may or may not be supporting wound healing and will be discontinued after today's debridement in lieu of regular b.i.d. dressing changes by wound care. DESCRIPTION OF OPERATIVE PROCEDURE: With the patient in the supine position, general anesthesia was induced. The lower abdomen, left thigh prepped with Hibiclens and draped in a sterile fashion. The skin and subcutaneous tissue along the edges of the irregular shaped left groin wound was infiltrated with 1% Xylocaine. The necrotic subcutaneous tissue (all of the skin edges were viable) was debrided to a vascularized subcutaneous tissue. The base of the wound is clean, viable sartorius muscle and soft tissue, which appears to be recovering well in shielding the underlying femoral anastomosis. There is no evidence of fluctuance or drainage from the deeper tissues suggesting graft infection. The wound was copiously irrigated with saline and strict hemostasis assured. A fluffed sterile saline moistened gauze was placed within the wound covered with ABD pads. No operative complications. The patient returned to the recovery room in stable condition, having tolerated the procedure well. ADDENDUM: PREOPERATIVE DIAGNOSIS: Left groin wound necrosis with cellulitis. POSTOPERATIVE DIAGNOSIS: Left groin wound necrosis with cellulitis. OPERATIVE PROCEDURE: Debridement left groin wound. SURGEON: Viral Brothers MD ANESTHESIA: General/local. DESCRIPTION: This operative procedure involved debridement of skin, necrotic adipose tissue down to viable fascia and viable adipose tissue along the wound edges. The procedure was accomplished utilizing sharp dissection with a scalpel and scissors. Shant Brothers MD JTS/SINGH , 02:06 PM , 02:33 PM
[2017-10-10] MEDS: FLUCONAZOLE 100 MG PREMIX BAG 50 ML IV SCH (15:00)
[2017-10-10] MEDS: MEROPENEM INJ 500 MG in SODIUM CHLORIDE 0.9% INJ 100 ML IV SCH (17:30)
[2017-10-10] MEDS: LINEZOLID 600 MG PREMIX 300 ML IV SCH (18:19)
[2017-10-10] MEDS: CINACALCET HYDROCHLORIDE 30 MG TAB PO SCH (18:39)
[2017-10-10 20:00] VITALS: BP 132/52; PULSE 62; RESP 18; TEMP 98; O2SAT 95
[2017-10-10 20:24] VITALS: O2SAT 98
[2017-10-10] MEDS: ATORVASTATIN 40 MG TAB PO SCH (22:09)
[2017-10-10] MEDS: ENOXAPARIN SODIUM 30 MG/0.3 ML SYRINGE SQ SCH (22:10)
--- NOTE | 2017-10-10 22:22 | HHI.PR ---
Subjective Remarks c/o some pain in left groin Denies cp/sob Denies fevers or chills Objective Vitals Vital Signs Date Time Temp Pulse Resp B/P (MAP) Pulse Ox O2 Delivery O2 Flow Rate FiO2 10/10/17 20:24 98 21 10/10/17 20:00 98.0 62 18 132/52 (78) 95 10/10/17 18:28 16 10/10/17 12:00 98.2 54 20 153/65 (94) 95 10/10/17 10:35 96 10/10/17 08:00 98.6 59 18 141/60 (87) 96 10/10/17 00:00 98.4 65 18 144/95 (111) 96 I/O 10/09/17 10/09/17 10/09/17 10/10/17 10/10/17 10/10/17 07:00 15:00 23:00 07:00 15:00 23:00 Intake Total 100 ml 950 ml 410 ml 50 ml 620 ml Output Total 0 ml 3000 ml Balance 100 ml 950 ml 410 ml 50 ml -2380 ml Intake Oral 800 ml 360 ml 620 ml IV Total 100 ml 150 ml 50 ml 50 ml Output Urine Total 0 ml Stool Total 0 ml Hemodialysis 3000 ml # Voids 1 1 # Bowel Movements 1 2 Result Diagram: 10/08/17 0618 10/08/17 0618 Imaging Last Impressions Pelvis CT 10/07/17 0000 Signed Impressions: Service Date/Time: Saturday, October 07, 2017 21:04 - CONCLUSION: 1. Large soft tissue defect involving the left groin which does not reach the bypass. Intact soft tissue is noted surrounding the bypass. There is a small amount of circumferential fluid surrounding the proximal bypass. 2. Anasarca. Ryan Nugent Jr., MD Objective Remarks GENERAL: This is an overweight well-nourished, well-developed female patient, in no apparent distress. Awake and alert. SKIN: Warm and dry. Left groin large wound with dry and intact wound VAC with surrounding erythema and edema. HEAD: Atraumatic. Normocephalic. No temporal or scalp tenderness. EYES: Pupils equal round and reactive. Extraocular motions intact. No scleral icterus. No injection or drainage. ENT: Nose without bleeding, purulent drainage or septal hematoma. Throat without erythema, tonsillar hypertrophy or exudate. Uvula midline. Airway patent. NECK: Trachea midline. No JVD or lymphadenopathy. Supple, nontender, no meningeal signs. CARDIOVASCULAR: Regular rate and rhythm without murmurs, gallops, or rubs. RESPIRATORY: Clear to auscultation. Breath sounds equal bilaterally. No wheezes , rales, or rhonchi. GASTROINTESTINAL: Abdomen soft, non-tender, nondistended. No hepato-splenomegaly , or palpable masses. No guarding. MUSCULOSKELETAL: Extremities without clubbing or cyanosis. No joint tenderness, effusion, or edema noted. Bilateral lower extremity edema pitting 2+. s/p left 2nd toe amputation. Right foot first digit s/p removal of eschar with small 1x1cm wound noted over distal aspect, left fourth interspace ulceration noted. Left foot ulceration with granulation noted at base. Right heel DTI. NEUROLOGICAL: Awake and alert. Cranial nerves II through XII grossly intact. Motor and sensory grossly within normal limits. No focal neurologic findings appreciated. Normal speech. A/P Assessment and Plan Infected left groin hematoma due to Klebsiella Cellulitis left groin On IV Zosyn Status post debridement and application of wound VAC -Postop management per Dr. Brothers -Follow-up on intraoperative wound culture results -ID consulted. -Pain management with bowel regimen -PT/OT eval/tx -wound cultures are growing K pneumonia MDR and Enterococcus Faecium Vre -Continue antibiotics as per ID - Patient currently on IV Linezolid, IV Meropenem, Fluconazole, oral flagyl, Zosyn IV. CAD s/p CABG x3 CHF, not in acute exacerbation HTN -Continue on Coreg 6.25 mg twice daily -Monitor for evidence of fluid overload -Monitor BP and adjust treatment according -10/10 BP stable, continue management as above. End-stage renal disease on hemodialysis Tuesday -Consult nephrology to resume hemodialysis -Continue Renvela DM -Heart healthy diabetic diet -Resume patient on scheduled insulin Levemir 20 units daily, 17 units nightly -Accu-Cheks and insulin sliding scale Hx of CVA -Continue on Plavix and statin therapy Deep tissue injury right Wound left great toe -wound care per Dr. Perkins's orders -pressure relief/off loading, heel raiser boot Hypothyroidism -Resume patient on home dose of levothyroxine 125 mcg daily DVT prophylaxis -Lovenox sq Aj Bassett MD October 10, 2017 22:22
[2017-10-11] VITALS: BP 140/62; PULSE 62; RESP 18; TEMP 97.7; O2SAT 97
[2017-10-11] MEDS: LEVOTHYROXINE SODIUM 125 MCG TAB PO SCH (04:09)
[2017-10-11] MEDS: metroNIDAZOLE 500 MG TAB PO SCH ×3 (04:09→21:23)
[2017-10-11] MEDS: ACETAMINOPHEN/HYDROcodone 325 MG/5 MG TAB PO PRN ×4 (04:09→21:22)
[2017-10-11] MEDS: LINEZOLID 600 MG PREMIX 300 ML IV SCH ×2 (04:11→18:01)
[2017-10-11 04:52] LABS: HEMATOCRIT 33.5 % (35.0-46.0); HEMOGLOBIN 10.9 GM/DL (11.6-15.3); MEAN CELL VOLUME 96.2 FL (80.0-100.0); MEAN CORPUSCULAR HEMOGLOBIN 31.2 PG (27.0-34.0); MEAN CORPUSCULAR HGB CONC 32.4 % (32.0-36.0); PLATELET COUNT 231 TH/MM3 (150-450); RED BLOOD COUNT 3.48 MIL/MM3 (4.00-5.30); RED CELL DISTRIBUTION WIDTH 19.1 % (11.6-17.2); WHITE BLOOD COUNT 9.3 TH/MM3 (4.0-11.0)
[2017-10-11 08:00] VITALS: BP 122/76; PULSE 56; RESP 17; TEMP 97.2; O2SAT 95
[2017-10-11] MEDS: MEDIUM DOSE INSULIN NOVOLOG SUPPLEMENTAL SCALE SQ SCH ×4 (08:00→21:22)
[2017-10-11 08:13] LABS: CREATININE 3.93 MG/DL (0.50-1.00)
[2017-10-11 08:14] LABS: BICARBONATE 25.9 MEQ/L (21.0-32.0)
[2017-10-11] MEDS: CHOLECALCIFEROL (VIT D3) 1000 UNIT TAB PO SCH (08:44)
[2017-10-11] MEDS: FAMOTIDINE 20 MG TAB PO SCH ×2 (08:44→21:12)
[2017-10-11] MEDS: CLOPIDOGREL 75 MG TAB PO SCH (08:44)
[2017-10-11] MEDS: CARVEDILOL 6.25 MG TAB PO SCH ×2 (08:44→21:00)
[2017-10-11] MEDS: DOCUSATE SODIUM 50 MG/SENNA 8.6 MG TAB PO SCH ×2 (08:44→21:00)
[2017-10-11] MEDS: LACTOBACILLUS ACIDOPHILUS TAB PO SCH ×3 (08:44→18:02)
[2017-10-11] MEDS: SEVELAMER CARBONATE 800 MG TAB PO SCH ×3 (08:45→18:03)
[2017-10-11] MEDS: INSULIN DETEMIR 100 UNITS/ML VIAL SQ SCH ×2 (08:45→21:22)
[2017-10-11] MEDS: EZETIMIBE 10 MG TAB PO SCH (08:45)
[2017-10-11] MEDS: SODIUM CHLORIDE 0.9% FLUSH 10 ML FLUSH IV FLUSH SCH ×2 (09:00→21:00)
[2017-10-11] MEDS: GABAPENTIN 100 MG CAP PO SCH ×3 (09:00→18:03)
--- NOTE | 2017-10-11 09:57 | PD.WOU.CON ---
Patient Intake Chief Complaint Post surgical groin ulcer Consult Requested by Primary Care Physician Anila (Garret) MD [place] Coded Allergies: amlodipine (Unverified Allergy, Severe, 01/11/17) adhesive tape (Verified Allergy, Unknown, Generalized Itching, 09/24/17) Redness Vital Signs Date Time Temp Pulse Resp B/P (MAP) Pulse Ox O2 Delivery O2 Flow Rate FiO2 10/11/17 08:00 97.2 56 17 122/76 (91) 95 10/11/17 00:00 97.7 62 18 140/62 (88) 97 10/10/17 20:24 98 21 10/10/17 20:00 98.0 62 18 132/52 (78) 95 10/10/17 18:28 16 10/10/17 12:00 98.2 54 20 153/65 (94) 95 10/10/17 10:35 96 Lab and Radiology Results Radiology Last Impressions Pelvis CT 10/07/17 0000 Signed Impressions: Service Date/Time: Saturday, October 07, 2017 21:04 - CONCLUSION: 1. Large soft tissue defect involving the left groin which does not reach the bypass. Intact soft tissue is noted surrounding the bypass. There is a small amount of circumferential fluid surrounding the proximal bypass. 2. Anasarca. MD Layla Pena Jr.,Elsa Delcid MD October 11, 2017 09:57
--- NOTE | 2017-10-11 10:55 | PD.WCN.NOT ---
Wound Consult Description: Wound consult ordered by for left groin Communicated with: ,, Recommendation: 1. Cleanse left groin with normal saline pat dry. 2. Apply saline moistened fluffed gauze to wound base cover with ABD secure with paper tape. 3. Change dressing BID sign,date and time dressing. Additional Information: Patient was seen today on 7 by senior technical writer , and for wound management of left groin.Patient alert and oriented x4 sitting up in bed upon arrival with no complaints of distress/discomfort.Dressing removed from Left groin with out difficulty wound cleansed with normal saline pat dry.Measurements are 12.2cm x 21.3cm x 3.3cm with undermining noted from 10-1 O' clock max depth @12 O'clock measuring 4.8cm .Wound edges are well defined irregular in shape mixed sloped and steep with wound base.Periwound has maceration noted @7 O'clock and between 2-4 O'clock. Wound base is ~75% adipose tissue ~15% red/pink non granular tissue 10% beefy red granular tissue.Moderate serosanguineous drainage noted with out odor.Erythema noted ~ 1.0cm circumferentially with worsening erythema noted between 12-4 o'clock and between 7-9 O'clock.Saline moistened fluffed gauze applied to wound base and covered with ABD secured with minimal paper tape.Skin prep applied to distal lateral lower extremity left open to air.Patient had no questions or concerns upon writers departure. Do Ocasio [facility] October 11, 2017 10:55
--- NOTE | 2017-10-11 11:30 | HHI.NPPN ---
Subjective History of Present Illness This patient is a 72-year-old female with a history of multiple medical problems including diabetes mellitus, hypertension, end-stage renal disease, anemia renal disease and peripheral vascular disease now recently status post left femoropopliteal bypass after developing subacute occlusion. Patient recently admitted with hematoma/infection complicating the femoropopliteal bypass. She has been in [facility] since 09/24, but had to have debridement of L groin hematoma this AM. Interval History Pt feeling OK. Is concerned about upcoming plans regarding her wound healing. (Ayala Simmons) Review of Systems General General Remarks No specific complaints (Ayala Simmons) Objective Data Data Vital Signs Date Time Temp Pulse Resp B/P (MAP) Pulse Ox O2 Delivery O2 Flow Rate FiO2 10/11/17 08:00 97.2 56 17 122/76 (91) 95 10/11/17 00:00 97.7 62 18 140/62 (88) 97 10/10/17 20:24 98 21 10/10/17 20:00 98.0 62 18 132/52 (78) 95 10/10/17 18:28 16 10/10/17 12:00 98.2 54 20 153/65 (94) 95 (Ayala Simmons) -: 10/11/17 0432 10/11/17 0551 Imaging Last Impressions Pelvis CT 10/07/17 0000 Signed Impressions: Service Date/Time: Saturday, October 07, 2017 21:04 - CONCLUSION: 1. Large soft tissue defect involving the left groin which does not reach the bypass. Intact soft tissue is noted surrounding the bypass. There is a small amount of circumferential fluid surrounding the proximal bypass. 2. Anasarca. Ryan Nugent Jr., MD Medication Review Current Medications Medications (Trade) Dose Ordered Sig/Julius Route Start Time Stop Time Status Last Admin (NS Flush) 5 ml DAILY IV FLUSH 10/08/17 09:00 10/10/17 10:18 (Heparin Central Flush) 500 units DAILY IV FLUSH 10/08/17 09:00 10/10/17 10:18 (NS Flush) 5 ml UNSCH PRN IV FLUSH 10/07/17 13:15 10/07/17 13:20 (Heparin Central Flush) 500 units UNSCH PRN IV FLUSH 10/07/17 13:15 (NS Flush) 2 ml UNSCH PRN IV FLUSH 10/07/17 15:30 (NS Flush) 2 ml BID IV FLUSH 10/07/17 21:00 10/11/17 09:00 (Tylenol) 650 mg Q4H PRN PO 10/07/17 16:00 (Narcan Inj) 0.4 mg UNSCH PRN IV PUSH 10/07/17 16:00 (Milk Of Magnesia Liq) 30 ml Q12H PRN PO 10/07/17 15:30 (Senokot) 17.2 mg Q12H PRN PO 10/07/17 15:30 (Dulcolax Supp) 10 mg DAILY PRN RECTAL 10/07/17 16:00 (Lactulose Liq) 30 ml DAILY PRN PO 10/07/17 15:30 (Lovenox Inj) 30 mg Q24H SQ 10/07/17 20:00 10/10/17 22:10 ([place] 5-325 Mg) 1 tab Q4H PRN PO 10/07/17 15:45 10/11/17 11:17 (Morphine Inj) 2 mg Q4H PRN IV PUSH 10/07/17 15:45 (Coreg) 6.25 mg BID PO 10/07/17 21:00 10/11/17 08:44 (Vitamin D3) 1,000 units DAILY PO 10/08/17 09:00 10/11/17 08:44 (Plavix) 75 mg DAILY PO 10/08/17 09:00 10/11/17 08:44 (Pepcid) 10 mg BID PO 10/07/17 21:00 10/11/17 08:44 (Neurontin) 200 mg TID PO 10/07/17 18:00 10/10/17 18:39 (Levemir Inj) 17 units HS SQ 10/07/17 21:00 10/10/17 22:10 (Levemir Inj) 20 units DAILY SQ 10/08/17 09:00 10/11/17 08:45 (Lactinex) 1 tab TID PO 10/07/17 18:00 10/11/17 08:44 (Synthroid) 125 mcg DAILY@0600 PO 10/08/17 06:00 10/11/17 04:09 (Nitrostat Sl) 0.4 mg Q5M PRN SL 10/07/17 15:45 (Lucinda-Colace) 1 tab BID PO 10/07/17 21:00 10/11/17 08:44 (Renvela) 800 mg TID PO 10/07/17 18:00 10/11/17 08:45 (Zofran Odt) 4 mg Q6H PRN PO 10/07/17 15:45 (Zetia) 10 mg DAILY PO 10/08/17 09:00 10/11/17 08:45 (Lipitor) 40 mg HS PO 10/07/17 21:00 10/10/17 22:09 (Sensipar) 60 mg WITH DINNER PO 10/07/17 18:00 10/10/17 18:39 Sodium Chloride 1,000 ml @ 0 mls/hr Q0M PRN OTHER 10/07/17 16:53 (Heparin Inj) 8,000 units UNSCH PRN IV FLUSH 10/07/17 17:00 Sodium Chloride 1,000 ml @ 200 mls/hr Q5H PRN IV 10/07/17 16:53 10/08/17 11:39 Sodium Chloride 1,000 ml @ 0 mls/hr Q0M PRN OTHER 10/07/17 16:53 (Mannitol Inj) 12.5 gm UNSCH PRN IV 10/07/17 17:00 Albumin Human 100 ml @ 60 mls/hr UNSCH PRN IV 10/07/17 17:00 (NS Flush) 5 ml UNSCH PRN IV FLUSH 10/07/17 17:00 (Heparin Inj) UNSCH PRN .XX 10/07/17 17:00 10/08/17 11:39 (Gentamicin Inj) 20 mg UNSCH PRN OTHER 10/07/17 17:00 10/08/17 11:40 (Zofran Inj) 4 mg UNSCH PRN IV PUSH 10/07/17 17:00 (Tylenol) 650 mg UNSCH PRN PO 10/07/17 17:00 (Benadryl) 25 mg UNSCH PRN PO 10/07/17 17:00 (Nitrostat Sl) 0.4 mg UNSCH PRN SL 10/07/17 17:00 (Catapres) 0.1 mg UNSCH PRN PO 10/07/17 17:00 (Epogen Inj) 8,000 units UNSCH PRN IV PUSH 10/07/17 17:00 10/08/17 11:39 (Gelfoam 12 Mm/7 Mm Top) 1 foam UNSCH PRN TOP 10/07/17 17:00 (Drisdol) 50,000 units Q14D PO 10/07/17 18:00 10/07/17 18:49 Meropenem 500 mg/ Sodium Chloride 100 ml @ 200 mls/hr Q24H IV 10/08/17 16:00 10/10/17 17:30 (Flagyl) 500 mg Q8HR PO 10/08/17 22:00 10/11/17 04:09 Fluconazole/ Sodium Chloride 50 ml @ 50 mls/hr Q24H IV 10/08/17 15:00 10/09/17 15:23 (D50w (Vial) Inj) 50 ml UNSCH PRN IV PUSH 10/09/17 16:45 (Glucagon Inj) 1 mg UNSCH PRN OTHER 10/09/17 16:45 (NovoLOG SUPPLEMENTAL SCALE) 1 ACHS SLIDING SCALE SQ 10/09/17 17:00 10/09/17 20:50 Linezolid 300 ml @ 300 mls/hr Q12H IV 10/10/17 18:00 10/11/17 04:11 (Ayala Simmons) Physical Exam General Appearance: Well Developed, No Acute Distress, Comfortable (Ayala Simmons) Eyes Eye Exam: Sclera White (Ayala Simmons) Pulmonary Resp Exam: Clear Bilaterally, Breath Sounds Equal, No Distress (Ayala Simmons) Cardiology CV Exam: Regular, Normal Sinus Rhythm (Ayala Simmons) Gastrointestinal/Abdomen GI Exam: Soft, Non-Tender (Ayala Simmons) Integumentary Skin Exam: Clear, Warm (Ayala Simmons) Extremeties Extremities Exam: Moderate Edema (bilat LEs to hips) (Ayala Simmons) Neurologic Neuro Exam: Alert, Awake (Ayala Simmons) Assessment/Plan Discussed Condition With: Patient Problem List: (1) ESRD (end stage renal disease) on dialysis ICD Codes: N18.6 - End stage renal disease; Z99.2 - Dependence on renal dialysis Status: Chronic Plan: Continue Hemodialysis Tuesday and Tuesday Continue Renvela for hyperphosphatemia. Monitor Ca2+ levels. Low 2/2 to hypoalbuminemia. If trends lower, will decrease Sensipar and start Rocaltrol. Encouraged to eat more protein. Will order Nepro as supplement. Medications should be adjusted for the patient's ESRD. Avoid gadolinium (2) Hematoma of groin ICD Codes: S30.1XXA - Contusion of abdominal wall, initial encounter Status: Acute Plan: s/p debridement 10/08 Management as per vascular and infectious disease (3) Peripheral vascular disease ICD Codes: I73.9 - Peripheral vascular disease, unspecified Status: Acute (4) Anemia of renal disease ICD Codes: D63.1 - Anemia in chronic kidney disease Status: Chronic Plan: CBC in the AM Fe stores mildly low but will hold off on Venofer given infection. Epogen with HD (5) Diabetes mellitus type 2 with complications ICD Codes: E11.8 - Type 2 diabetes mellitus with unspecified complications Status: Chronic Plan: Mgmt as per primary (6) Secondary hyperparathyroidism of renal origin ICD Codes: N25.81 - Secondary hyperparathyroidism of renal origin Plan: Continue Sensipar and Ergocalciferol as before. (7) Hypertension ICD Codes: I10 - Essential (primary) hypertension Status: Acute (Ayala Simmons) Plan The exam, history, and the medical decision-making described in the above note were completed with the assistance of the PALety. I reviewed and agree with the findings presented. (Kimberly Sampson MD) Ayala Simmons October 11, 2017 11:30 Kimberly Sampson MD October 12, 2017 10:23
[2017-10-11 12:00] VITALS: BP 136/62; PULSE 62; RESP 16; TEMP 97.2; O2SAT 92
--- NOTE | 2017-10-11 13:17 | PD.VS.CON ---
History of Present Illness Chief Complaint: Left Groin wound S/P L LE distal bypass Consult Requested by: Dr. Brothers History of Present Illness 72/F with a PMH of diabetes mellitus, hypertension, end-stage renal disease, anemia renal disease and peripheral vascular disease Pt s/p L LE fem-pop bypass/ L groin debridement X 2 Pt w/o fever or chills LE warm with biphasic R/L DP/PT (Dorota Mariee) Past/Family/Social History Past Medical History End-stage renal disease Diabetes mellitus Hypertension Coronary artery disease Peripheral arterial disease. Previous osteomyelitis. CVA 2. Coronary artery bypass grafting 3. Right upper extremity AV fistula. Previous left second toe amputation. Past Surgical History Right upper extremity AV fistula. Previous left second toe amputation. 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 Prov:Don Chambers MD 10/07/17 Insulin Detemir Inj (Levemir Inj) 1,000 unit/ 10 ML Vial, 17 UNITS SQ HS for 30 Days, INJECTION Do not mix with any other Insulin. Prov:Don Chambers MD 10/07/17 Lactobacillus Acidophilus (Acidophilus/l-Sporogenes) 35 Million Cell-25 Million Cell Tab, 1 TAB PO TID, #90 TAB Prov:Don Chambers MD 10/07/17 Famotidine (Famotidine) 20 Mg Tab, 10 MG PO BID, #30 TAB Prov:Don Chambers MD 10/07/17 Gabapentin (Gabapentin) 100 Mg Cap, 200 MG PO TID, #180 CAP Prov:Don Chambers MD 10/07/17 Hydrocodone/Acetaminophen (Hydrocodone-Acetamin 5-325 mg) 5 Mg-325 Mg Tablet, 1 TAB PO Q6H Y for Pain 5-10, #60 Prov:Don Chambers MD 10/07/17 Wheelchair (Wheelchair) 1 Mis Mis, EA .XX DIRECTED, #1 0 Refills Prov:Rhoda Ro BREEZY 10/04/17 Commode 3-in-1 (Commode 3-in-1) 1 Mis Mis, EA .XX DIRECTED, #1 0 Refills Prov:JayjayRhoda Keylamiguel a TIJERINA 10/04/17 Piperacillin-Tazobactam Inj (Piperacillin-Tazobactam Inj) 2-0.25 Gm Inj, 2.25 GM IV Q8H for Infection for 13 Days, BAG 0 Refills end date 10/07/17 Prov:Lizzie Medeiros MD 09/24/17 Sennosides-Docusate Sodium (Gnp Senna Plus 8.6-50 mg) 8.6 Mg-50 Mg Tab, 1 TAB PO BID for Constipation, #60 TAB Prov:Lizzie Medeiros MD 09/24/17 Oxygen tank (Oxygen tank) 1 Ea Tank, LITER FLORINDA.CANULA CONTINUOUS for HYPOXEMIA PREVENTION, #2 Oxygen Concentrator Portable Gaseous 2 L/min via Nasal Cannula Continuous For 99 months Prov:Lizzie Medeiros MD 07/23/17 Oxygen (O2) (Oxygen (O2)) Device, LITER FLORINDA.CANULA CONTINUOUS Y for respiratory failure , #2 Oxygen Concentrator Portable Gaseous 2 L/min via Nasal Canula Continuous For 99 months Prov:Lizzie Medeiros MD 07/23/17 Nitroglycerin SL (Nitrostat SL) 0.4 Mg Subl, 0.4 MG SL Q5M Y for CHEST PAIN, # 30 TAB Prov:Lizzie Medeiros MD 07/23/17 Reported Medications Carvedilol (Carvedilol) 6.25 Mg Tab, 6.25 MG PO BID, #60 TAB 0 Refills 09/06/17 Sevelamer Carbonate (Renvela) 800 Mg Tab, 800 MG PO TID for Control phosphorous levels, #90 TAB 0 Refills 09/06/17 Ezetimibe-Simvastatin (Vytorin) 10-80 Mg Tab, 1 TAB PO HS, #30 TAB 0 Refills 09/06/17 Epoetin Inj (Procrit Inj) 2,000 Unit/Ml Inj, 1000 UNITS SQ TUESDAY for Anemia, # 12 VIAL 0 Refills 09/06/17 Insulin Lispro (Human) Inj (Humalog Inj) 1,000 Unit/10 Ml Vial, SQ ACHS for Blood Sugar Management, #1 VIAL 0 Refills SLIDING SCALE DIRECTED 08/23/16 Levothyroxine (Synthroid) 125 Mcg Tab, 125 MCG PO DAILY for Thyroid, #30 TAB 0 Refills 08/23/16 Clopidogrel (Plavix) 75 Mg Tab, 75 MG PO DAILY for Blood Clot Prevention, #30 TAB 0 Refills 08/23/16 Discontinued Reported Medications Ranitidine (Ranitidine) 150 Mg Tab, 150 MG PO BID for Heartburn Management, #60 TAB 0 Refills 09/06/17 Cinacalcet (Sensipar) 30 Mg Tab, 30 MG PO DAILY, #30 TAB 0 Refills 07/21/17 Discontinued Scripts Acetaminophen-Codeine (Acetaminophen-Codeine) 300-30 mg Tab, 1 TAB PO Q4H Y for PAIN SCALE 1-10, #30 TAB Prov:Lizzie Medeiros MD 09/24/17 Gabapentin (Gabapentin) 100 Mg Cap, 100 MG PO TID for Pain Management, #60 CAP Prov:Lizzie Medeiros MD 07/23/17 Coded Allergies: amlodipine (Unverified Allergy, Severe, 01/11/17) adhesive tape (Verified Allergy, Unknown, Generalized Itching, 09/24/17) Redness Review of Systems Constitutional: DENIES: Fever, Chills Cardiovascular: COMPLAINS OF: Lower Extremity Edema (Mild B LE ), DENIES: Chest pain, Claudication Integumentary: COMPLAINS OF: Abnormal pigmentation (Large L groin opened wound with yellow exudate and erythema negrita wound) (Dorota Mariee) Physical Exam Vitals/I&O Date Time Temp Pulse Resp B/P (MAP) Pulse Ox O2 Delivery O2 Flow Rate FiO2 10/11/17 12:00 97.2 62 16 136/62 (86) 92 10/11/17 08:00 97.2 56 17 122/76 (91) 95 10/11/17 00:00 97.7 62 18 140/62 (88) 97 10/10/17 20:24 98 21 10/10/17 20:00 98.0 62 18 132/52 (78) 95 10/10/17 18:28 16 10/11/17 10/11/17 10/11/17 07:00 15:00 23:00 Intake Total 1100 ml Balance 1100 ml Neuro: CN 2-12 intact A&OX3 GCS 15 Speech clear HEENT: LAN Neck: No JVD distention Heart: RRR Lungs: BS CTA Abdomen: S/NT Large L groin opened wound with yellow exudate and erythema negrita wound Vascular: R/L Biphasic DP/PT LE warm w/ motor intact Extremities: LE 5/ UE 5/5 L LE incision intact with jessika (Dorota Mariee) Laboratory Tests Test 10/11/17 04:32 10/11/17 05:51 White Blood Count 9.3 Red Blood Count 3.48 Hemoglobin 10.9 Hematocrit 33.5 Mean Corpuscular Volume 96.2 Mean Corpuscular Hemoglobin 31.2 Mean Corpuscular Hemoglobin Concent 32.4 Red Cell Distribution Width 19.1 Platelet Count 231 Mean Platelet Volume 8.0 Blood Urea Nitrogen 26 Creatinine 3.93 Random Glucose 127 Albumin 2.0 Calcium Level 8.0 Phosphorus Level 4.0 Sodium Level 133 Potassium Level 3.4 Chloride Level 93 Carbon Dioxide Level 25.9 Anion Gap 14 Estimat Glomerular Filtration Rate 11 Date/Time Source Procedure Growth Status 10/07/17 14:40 Wound Groin Fungal Smear - Final NO FUNGAL ELEMENTS SEEN. Resulted 10/07/17 14:40 Fungal Culture - Preliminary Yeast-Id To Follow Resulted (Dorota Mariee) Assessment and Plan Assessment: (1) Peripheral vascular disease Status: Acute (2) Hematoma of groin Status: Acute Plan 72/F S/P L groin debridement/distal bypass LE warm w/ motor intact Reviewed CT results- L LE Graft ok Plan Recommend aggressive wound care to L groin - Wound Vac with debridement ( veraflow) Continue PT Continue broad spectrum antibiotic Dorota Mariee CARE ASSISTANT [facility]/Possible Web [phone] (Dorota Mariee) Plan Pt with significant L groin wound and dessicated muscle but no evidence clinically or radiographically that it involves the graft. I recommend surgical debridement and VAC application. Also may benefit from plastic surgery consultation for possible rectus rotational flap. Mukesh Rodrigues MD [facility] residential leasing agent [facility] - Heart and Vascular Surgery at [place] [phone] (Mukesh Rodrigues MD) Dorota Mariee October 11, 2017 13:17 Mukesh Rodrigues MD October 11, 2017 13:37
[2017-10-11] MEDS: Hickman Catheter Daily NS Lock Flush IV FLUSH SCH (13:31)
[2017-10-11] MEDS: MEROPENEM INJ 500 MG in SODIUM CHLORIDE 0.9% INJ 100 ML IV SCH (15:35)
[2017-10-11] MEDS: FLUCONAZOLE 100 MG PREMIX BAG 50 ML IV SCH (15:35)
[2017-10-11 16:00] VITALS: BP 145/66; PULSE 61; RESP 16; TEMP 97.1; O2SAT 94
--- NOTE | 2017-10-11 16:38 | HHI.PR ---
Subjective Remarks Denies cp/sob Pain controlled Afebrile Objective Vitals Vital Signs Date Time Temp Pulse Resp B/P (MAP) Pulse Ox O2 Delivery O2 Flow Rate FiO2 10/11/17 12:00 97.2 62 16 136/62 (86) 92 10/11/17 08:00 97.2 56 17 122/76 (91) 95 10/11/17 00:00 97.7 62 18 140/62 (88) 97 10/10/17 20:24 98 21 10/10/17 20:00 98.0 62 18 132/52 (78) 95 10/10/17 18:28 16 I/O 10/10/17 10/10/17 10/10/17 10/11/17 10/11/17 10/11/17 07:00 15:00 23:00 07:00 15:00 23:00 Intake Total 410 ml 50 ml 620 ml 1100 ml Output Total 0 ml 3000 ml Balance 410 ml 50 ml -2380 ml 1100 ml Intake Oral 360 ml 620 ml 800 ml IV Total 50 ml 50 ml 300 ml Output Urine Total 0 ml Stool Total 0 ml Hemodialysis 3000 ml # Voids 1 # Bowel Movements 2 1 Result Diagram: 10/11/17 0432 10/11/17 0551 Imaging Last Impressions Pelvis CT 10/07/17 0000 Signed Impressions: Service Date/Time: Saturday, October 07, 2017 21:04 - CONCLUSION: 1. Large soft tissue defect involving the left groin which does not reach the bypass. Intact soft tissue is noted surrounding the bypass. There is a small amount of circumferential fluid surrounding the proximal bypass. 2. Anasarca. Ryan Nugent Jr., MD Objective Remarks GENERAL: This is an overweight well-nourished, well-developed female patient, in no apparent distress. Awake and alert. SKIN: Warm and dry. Left groin large wound with dry and intact wound VAC with surrounding erythema and edema. HEAD: Atraumatic. Normocephalic. No temporal or scalp tenderness. EYES: Pupils equal round and reactive. Extraocular motions intact. No scleral icterus. No injection or drainage. ENT: Nose without bleeding, purulent drainage or septal hematoma. Throat without erythema, tonsillar hypertrophy or exudate. Uvula midline. Airway patent. NECK: Trachea midline. No JVD or lymphadenopathy. Supple, nontender, no meningeal signs. CARDIOVASCULAR: Regular rate and rhythm without murmurs, gallops, or rubs. RESPIRATORY: Clear to auscultation. Breath sounds equal bilaterally. No wheezes , rales, or rhonchi. GASTROINTESTINAL: Abdomen soft, non-tender, nondistended. No hepato-splenomegaly , or palpable masses. No guarding. MUSCULOSKELETAL: Extremities without clubbing or cyanosis. No joint tenderness, effusion, or edema noted. Bilateral lower extremity edema pitting 2+. s/p left 2nd toe amputation. Right foot first digit s/p removal of eschar with small 1x1cm wound noted over distal aspect, left fourth interspace ulceration noted. Left foot ulceration with granulation noted at base. Right heel DTI. NEUROLOGICAL: Awake and alert. Cranial nerves II through XII grossly intact. Motor and sensory grossly within normal limits. No focal neurologic findings appreciated. Normal speech. A/P Assessment and Plan Infected left groin hematoma due to Klebsiella Cellulitis left groin On IV Zosyn Status post debridement and application of wound VAC -Postop management per Dr. Brothers -Follow-up on intraoperative wound culture results -ID consulted. -Pain management with bowel regimen -PT/OT eval/tx -wound cultures are growing K pneumonia MDR and Enterococcus Faecium Vre -Continue antibiotics as per ID - Patient currently on IV Linezolid, IV Meropenem, Fluconazole, oral flagyl, Zosyn IV. 10/11 vascular surgery recommends surgical debridement and VAC application. Patient also may benefit from plastic surgery consultation for possible rectus rotational flap. CAD s/p CABG x3 CHF, not in acute exacerbation HTN -Continue on Coreg 6.25 mg twice daily -Monitor for evidence of fluid overload -Monitor BP and adjust treatment according -10/10 BP stable, continue management as above. End-stage renal disease on hemodialysis Tuesday -Consult nephrology to resume hemodialysis -Continue Renvela DM -Heart healthy diabetic diet -Resume patient on scheduled insulin Levemir 20 units daily, 17 units nightly -Accu-Cheks and insulin sliding scale Hx of CVA -Continue on Plavix and statin therapy Deep tissue injury right Wound left great toe -wound care per Dr. Perkins's orders -pressure relief/off loading, heel raiser boot Hypothyroidism -Resume patient on home dose of levothyroxine 125 mcg daily DVT prophylaxis -Lovenox sq Discharge Planning As per primary team. Aj Bassett MD October 11, 2017 16:38
[2017-10-11] MEDS ORDERED: POTASSIUM CHLORIDE 10 MEQ CONTROLLED RELEASE TAB PO ONE (16:45)
--- NOTE | 2017-10-11 17:06 | HHI.IDPN ---
Note Infectious Disease Note Patient feels okay. I reviewed her chart yesterday and made antibiotic changes based on culture. She was not in the room when I came by yesterday. She has little pain in the left groin. Afebrile. No Chills or SOB. Ambulates in the room. Left groin wound culture has VRE, Klebsiella and another multi resistant bacteria not identified. Pathology evaluation shows adipose tissue with marked acute inflammation and necrosis PAST MEDICAL HISTORY: Diabetes mellitus, hypertension, peripheral vascular disease, hyperlipidemia, coronary artery disease, end-stage renal disease treated with hemodialysis. Left femoral artery bypass surgery on 08/30/2017 with graft. ALLERGIES: AMLODIPINE, ADHESIVE TAPE. MEDICATIONS: Current Medications Medications (Trade) Dose Ordered Sig/Julius Route PRN Reason Start Time Stop Time Status Last Admin Dose Admin Sodium Chloride (NS Flush) 5 ml DAILY IV FLUSH 10/08/17 09:00 10/11/17 13:31 Heparin Sodium (Porcine) (Heparin Central Flush) 500 units DAILY IV FLUSH 10/08/17 09:00 10/11/17 13:31 Sodium Chloride (NS Flush) 5 ml UNSCH PRN IV FLUSH SEE PROTOCOL TABLE 10/07/17 13:15 10/07/17 13:20 Heparin Sodium (Porcine) (Heparin Central Flush) 500 units UNSCH PRN IV FLUSH SEE PROTOCOL TABLE 10/07/17 13:15 Sodium Chloride (NS Flush) 2 ml UNSCH PRN IV FLUSH FLUSH AFTER USING IV ACCESS 10/07/17 15:30 Sodium Chloride (NS Flush) 2 ml BID IV FLUSH 10/07/17 21:00 10/11/17 09:00 Acetaminophen (Tylenol) 650 mg Q4H PRN PO TEMP > 100.4 10/07/17 16:00 Naloxone HCl (Narcan Inj) 0.4 mg UNSCH PRN IV PUSH SEE LABEL COMMENTS 10/07/17 16:00 Magnesium Hydroxide (Milk Of Magnesia Liq) 30 ml Q12H PRN PO Mild constipation 10/07/17 15:30 Sennosides (Senokot) 17.2 mg Q12H PRN PO Moderate constipation 10/07/17 15:30 Bisacodyl (Dulcolax Supp) 10 mg DAILY PRN RECTAL SEVERE CONSITIPATION 10/07/17 16:00 Lactulose (Lactulose Liq) 30 ml DAILY PRN PO SEVERE CONSITIPATION 10/07/17 15:30 Enoxaparin Sodium (Lovenox Inj) 30 mg Q24H SQ 10/07/17 20:00 10/10/17 22:10 Acetaminophen/ Hydrocodone Bitart (Merritt 5-325 Mg) 1 tab Q4H PRN PO pain 2-10 10/07/17 15:45 10/11/17 15:35 Morphine Sulfate (Morphine Inj) 2 mg Q4H PRN IV PUSH breakthrough pain 10/07/17 15:45 Carvedilol (Coreg) 6.25 mg BID PO 10/07/17 21:00 10/11/17 08:44 Cholecalciferol (Vitamin D3) 1,000 units DAILY PO 10/08/17 09:00 10/11/17 08:44 Clopidogrel Bisulfate (Plavix) 75 mg DAILY PO 10/08/17 09:00 10/11/17 08:44 Famotidine (Pepcid) 10 mg BID PO 10/07/17 21:00 10/11/17 08:44 Gabapentin (Neurontin) 200 mg TID PO 10/07/17 18:00 10/11/17 13:30 Insulin Detemir (Levemir Inj) 17 units HS SQ 10/07/17 21:00 10/10/17 22:10 Insulin Detemir (Levemir Inj) 20 units DAILY SQ 10/08/17 09:00 10/11/17 08:45 Lactobacillus Acidophilus (Lactinex) 1 tab TID PO 10/07/17 18:00 10/11/17 13:30 Levothyroxine Sodium (Synthroid) 125 mcg DAILY@0600 PO 10/08/17 06:00 10/11/17 04:09 Nitroglycerin (Nitrostat Sl) 0.4 mg Q5M PRN SL CHEST PAIN 10/07/17 15:45 Senna/Docusate Sodium (Lucinda-Colace) 1 tab BID PO 10/07/17 21:00 10/11/17 08:44 Sevelamer Carbonate (Renvela) 800 mg TID PO 10/07/17 18:00 10/11/17 13:30 Ondansetron HCl (Zofran Odt) 4 mg Q6H PRN PO NAUSEA OR VOMITING 10/07/17 15:45 EZETIMIBE (Zetia) 10 mg DAILY PO 10/08/17 09:00 10/11/17 08:45 Atorvastatin Calcium (Lipitor) 40 mg HS PO 10/07/17 21:00 10/10/17 22:09 Cinacalcet (Sensipar) 60 mg WITH DINNER PO 10/07/17 18:00 10/10/17 18:39 Sodium Chloride 1,000 ml @ 0 mls/hr Q0M PRN OTHER For Prime & Rinse Back 10/07/17 16:53 Heparin Sodium (Porcine) (Heparin Inj) 8,000 units UNSCH PRN IV FLUSH WITH DIALYSIS 10/07/17 17:00 Sodium Chloride 1,000 ml @ 200 mls/hr Q5H PRN IV WITH DIALYSIS 10/07/17 16:53 10/08/17 11:39 Sodium Chloride 1,000 ml @ 0 mls/hr Q0M PRN OTHER WITH DIALYSIS 10/07/17 16:53 Mannitol (Mannitol Inj) 12.5 gm UNSCH PRN IV WITH DIALYSIS 10/07/17 17:00 Albumin Human 100 ml @ 60 mls/hr UNSCH PRN IV WITH DIALYSIS 10/07/17 17:00 Sodium Chloride (NS Flush) 5 ml UNSCH PRN IV FLUSH WITH DIALYSIS 10/07/17 17:00 Heparin Sodium (Porcine) (Heparin Inj) UNSCH PRN .XX WITH DIALYSIS 10/07/17 17:00 10/08/17 11:39 Gentamicin Sulfate (Gentamicin Inj) 20 mg UNSCH PRN OTHER WITH DIALYSIS 10/07/17 17:00 10/08/17 11:40 Ondansetron HCl (Zofran Inj) 4 mg UNSCH PRN IV PUSH WITH DIALYSIS 10/07/17 17:00 Acetaminophen (Tylenol) 650 mg UNSCH PRN PO for headach, pain, temp > 101F 10/07/17 17:00 Diphenhydramine HCl (Benadryl) 25 mg UNSCH PRN PO for hives/itching/anaphylaxis 10/07/17 17:00 Nitroglycerin (Nitrostat Sl) 0.4 mg UNSCH PRN SL CHEST PAIN 10/07/17 17:00 Clonidine (Catapres) 0.1 mg UNSCH PRN PO for BP > 180/100 X 2 readings 10/07/17 17:00 Epoetin Dio (Epogen Inj) 8,000 units UNSCH PRN IV PUSH WITH DIALYSIS 10/07/17 17:00 10/08/17 11:39 Gelatin (Gelfoam 12 Mm/7 Mm Top) 1 foam UNSCH PRN TOP SEE LABEL COMMENTS 10/07/17 17:00 Ergocalciferol (Drisdol) 50,000 units Q14D PO 10/07/17 18:00 10/07/17 18:49 Meropenem 500 mg/ Sodium Chloride 100 ml @ 200 mls/hr Q24H IV 10/08/17 16:00 10/11/17 15:35 Metronidazole (Flagyl) 500 mg Q8HR PO 10/08/17 22:00 10/11/17 13:30 Fluconazole/ Sodium Chloride 50 ml @ 50 mls/hr Q24H IV 10/08/17 15:00 10/11/17 15:35 Dextrose (D50w (Vial) Inj) 50 ml UNSCH PRN IV PUSH HYPOGLYCEMIA - SEE COMMENTS 10/09/17 16:45 Glucagon (Glucagon Inj) 1 mg UNSCH PRN OTHER HYPOGLYCEMIA-SEE COMMENTS 10/09/17 16:45 Insulin Aspart (NovoLOG SUPPLEMENTAL SCALE) 1 ACHS SLIDING SCALE SQ 10/09/17 17:00 10/09/17 20:50 Linezolid 300 ml @ 300 mls/hr Q12H IV 10/10/17 18:00 10/11/17 04:11 OBJECTIVE: Vital Signs Date Time Temp Pulse Resp B/P (MAP) Pulse Ox O2 Delivery O2 Flow Rate FiO2 10/11/17 16:00 97.1 61 16 145/66 (92) 94 10/11/17 12:00 97.2 62 16 136/62 (86) 92 10/11/17 08:00 97.2 56 17 122/76 (91) 95 10/11/17 00:00 97.7 62 18 140/62 (88) 97 10/10/17 20:24 98 21 10/10/17 20:00 98.0 62 18 132/52 (78) 95 10/10/17 18:28 16 Laboratory Tests Test 10/11/17 04:32 White Blood Count 9.3 TH/MM3 Red Blood Count 3.48 MIL/MM3 Hemoglobin 10.9 GM/DL Hematocrit 33.5 % Mean Corpuscular Volume 96.2 FL Mean Corpuscular Hemoglobin 31.2 PG Mean Corpuscular Hemoglobin Concent 32.4 % Red Cell Distribution Width 19.1 % Platelet Count 231 TH/MM3 Mean Platelet Volume 8.0 FL Laboratory Tests Test 10/11/17 05:51 Blood Urea Nitrogen 26 MG/DL Creatinine 3.93 MG/DL Random Glucose 127 MG/DL Albumin 2.0 GM/DL Calcium Level 8.0 MG/DL Phosphorus Level 4.0 MG/DL Sodium Level 133 MEQ/L Potassium Level 3.4 MEQ/L Chloride Level 93 MEQ/L Carbon Dioxide Level 25.9 MEQ/L Anion Gap 14 MEQ/L Estimat Glomerular Filtration Rate 11 ML/MIN IMAGING: Pelvis CT 10/07/17 0000 Signed Impressions: Service Date/Time: Saturday, October 07, 2017 21:04 - CONCLUSION: 1. Large soft tissue defect involving the left groin which does not reach the bypass. Intact soft tissue is noted surrounding the bypass. There is a small amount of circumferential fluid surrounding the proximal bypass. 2. Anasarca. Ryan Nugent Jr., MD PHYSICAL EXAMINATION: GENERAL: No acute distress. She is awake and alert. HEENT: Extraocular movements are grossly intact. Pupils reactive to light. No icterus. No conjunctival erythema. Oropharynx moist mucosa. No visible lesions. No thrush. NECK: Supple without adenopathy or swelling. LUNGS: Clear breath sounds. HEART: Regular rate and rhythm. No murmurs, rubs or gallops. ABDOMEN: Bowel sounds, moderately obese, soft, nontender. GROIN: The left groin has an open wound with very good clean base tissue with granulation. Erythema of the surrounding skin. EXTREMITIES: No clubbing, cyanosis or edema. SKIN: No rash. NEUROLOGIC: No gross focal findings. PSYCHIATRIC: Pleasant, calm and cooperative. IMPRESSION: 1. Wound infection of the left groin, nonhealing. new culture has VRE, Klebsiella and 3rd organism and also Rosa. 2. Status post femoral bypass with graft. The graft does not appear to be involved with the wound or infection. 3. Poor wound healing, which could be due to some underlying clinical condition which prevents adequate healing. RECOMMENDATIONS: 1. Continue meropenem for gram-negative coverage including resistant bacteria. 2. Continue Diflucan for potential yeast. 3. Continue Flagyl to cover potential anaerobes. 4. Continue Zyvox for VRE. 5. Monitor clinical response. Bernardo Corrales MD October 11, 2017 17:06
[2017-10-11] MEDS: CINACALCET HYDROCHLORIDE 30 MG TAB PO SCH (18:02)
[2017-10-11 20:00] VITALS: BP 141/65; PULSE 68; RESP 16; TEMP 97.9; O2SAT 96
[2017-10-11] MEDS: ATORVASTATIN 40 MG TAB PO SCH (21:12)
[2017-10-11] MEDS: ENOXAPARIN SODIUM 30 MG/0.3 ML SYRINGE SQ SCH (21:12)
[2017-10-12] VITALS: BP 140/81; PULSE 62; RESP 16; TEMP 97.7; O2SAT 97
[2017-10-12] MEDS: LEVOTHYROXINE SODIUM 125 MCG TAB PO SCH (05:37)
[2017-10-12] MEDS: metroNIDAZOLE 500 MG TAB PO SCH ×3 (05:37→21:49)
[2017-10-12] MEDS: LINEZOLID 600 MG PREMIX 300 ML IV SCH ×2 (05:37→17:05)
[2017-10-12] MEDS: ONDANSETRON ODT 4 MG TAB PO PRN (05:55)
[2017-10-12 06:34] LABS: MEAN CELL VOLUME 95.8 FL (80.0-100.0); MEAN CORPUSCULAR HEMOGLOBIN 31.1 PG (27.0-34.0); MEAN CORPUSCULAR HGB CONC 32.4 % (32.0-36.0); MEAN PLATELET VOLUME 7.7 FL (7.0-11.0); PLATELET COUNT 232 TH/MM3 (150-450); RED BLOOD COUNT 3.55 MIL/MM3 (4.00-5.30); RED CELL DISTRIBUTION WIDTH 19.6 % (11.6-17.2); WHITE BLOOD COUNT 9.6 TH/MM3 (4.0-11.0)
[2017-10-12 07:08] LABS: BICARBONATE 25.1 MEQ/L (21.0-32.0); CALCIUM 8.1 MG/DL (8.5-10.1); CREATININE 4.55 MG/DL (0.50-1.00)
[2017-10-12 07:09] LABS: PHOSPHORUS 4.5 MG/DL (2.5-4.9)
[2017-10-12 08:00] VITALS: BP 136/60; PULSE 63; RESP 17; TEMP 97.6; O2SAT 94
[2017-10-12] MEDS: MEDIUM DOSE INSULIN NOVOLOG SUPPLEMENTAL SCALE SQ SCH ×4 (08:00→21:50)
[2017-10-12] MEDS: ACETAMINOPHEN/HYDROcodone 325 MG/5 MG TAB PO PRN ×2 (08:16→17:11)
[2017-10-12] MEDS: LACTOBACILLUS ACIDOPHILUS TAB PO SCH ×3 (09:00→17:11)
[2017-10-12] MEDS: SEVELAMER CARBONATE 800 MG TAB PO SCH ×3 (09:00→17:11)
[2017-10-12] MEDS: GABAPENTIN 100 MG CAP PO SCH ×3 (09:00→17:11)
[2017-10-12] MEDS: GELATIN 12 MM/7 MM FOAM TOP PRN (09:16)
[2017-10-12] MEDS: EPOETIN ALFA 10,000 UNITS/ML VIAL IV PUSH PRN (12:37)
[2017-10-12] MEDS: EZETIMIBE 10 MG TAB PO SCH (13:58)
[2017-10-12] MEDS: FAMOTIDINE 20 MG TAB PO SCH ×2 (13:58→21:49)
[2017-10-12] MEDS: CHOLECALCIFEROL (VIT D3) 1000 UNIT TAB PO SCH (13:59)
[2017-10-12] MEDS: CLOPIDOGREL 75 MG TAB PO SCH (13:59)
[2017-10-12] MEDS: CARVEDILOL 6.25 MG TAB PO SCH ×2 (13:59→21:49)
[2017-10-12] MEDS: DOCUSATE SODIUM 50 MG/SENNA 8.6 MG TAB PO SCH ×2 (14:00→21:49)
[2017-10-12] MEDS: INSULIN DETEMIR 100 UNITS/ML VIAL SQ SCH ×2 (14:00→21:49)
[2017-10-12] MEDS: Hickman Catheter Daily NS Lock Flush IV FLUSH SCH (14:00)
[2017-10-12] MEDS: FLUCONAZOLE 100 MG PREMIX BAG 50 ML IV SCH (14:10)
[2017-10-12] MEDS: SODIUM CHLORIDE 0.9% FLUSH 10 ML FLUSH IV FLUSH SCH ×2 (14:11→21:00)
[2017-10-12 14:22] VITALS: O2SAT 98
[2017-10-12] MEDS: MEROPENEM INJ 500 MG in SODIUM CHLORIDE 0.9% INJ 100 ML IV SCH (15:33)
[2017-10-12 16:00] VITALS: BP 150/68; PULSE 70; RESP 17; TEMP 97.4; O2SAT 98
--- NOTE | 2017-10-12 16:47 | HHI.PR ---
Subjective Remarks Follow up groin wound, infection. Patient states that she feels OK today. She denies chest pain, dyspnea. Wound is still painful. No other complaints at this time. Objective Vitals Vital Signs Date Time Temp Pulse Resp B/P (MAP) Pulse Ox O2 Delivery O2 Flow Rate FiO2 10/12/17 14:22 98 21 10/12/17 08:00 97.6 63 17 136/60 (85) 94 10/12/17 00:00 97.7 62 16 140/81 (100) 97 10/11/17 22:30 18 10/11/17 20:00 97.9 68 16 141/65 (90) 96 I/O 10/11/17 10/11/17 10/11/17 10/12/17 10/12/17 10/12/17 07:00 15:00 23:00 07:00 15:00 23:00 Intake Total 1100 ml 900 ml 650 ml Output Total 50 ml Balance 1100 ml 900 ml 600 ml Intake Oral 800 ml 900 ml 650 ml IV Total 300 ml Drainage Total 50 ml # Voids 2 1 # Bowel Movements 1 1 1 Result Diagram: 10/12/17 0600 10/12/17 0600 Imaging Last Impressions Pelvis CT 10/07/17 0000 Signed Impressions: Service Date/Time: Saturday, October 07, 2017 21:04 - CONCLUSION: 1. Large soft tissue defect involving the left groin which does not reach the bypass. Intact soft tissue is noted surrounding the bypass. There is a small amount of circumferential fluid surrounding the proximal bypass. 2. Anasarca. Ryan Nugent Jr., MD Objective Remarks General: Obese elderly female in no acute distress. Heart: Regular rate and rhythm. No murmur. Lungs: Clear to auscultation bilaterally. No wheezes, rales, or rhonchi. Breathing is nonlabored. Abdomen: Soft, nontender, nondistended. Extremities: 2+ bilateral lower extremity edema. Psych: Alert and oriented. Neuro: Normal speech. No focal deficits noted. Skin: Left groin and upper left leg wound bandaged. Procedures 10/07/17 debridement of left groin wound Urinary Catheter: No Vascular Central Line Catheter: No A/P Assessment and Plan 1. Infected left groin hematoma, cellulitis left groin: Continue IV antibiotics per infectious disease recommendations. Wound culture growing Klebsiella pneumonia multidrug resistant, and VRE. Management per vascular surgery. Patient will need surgical debridement and wound VAC application versus plastic surgery consultation for possible rectus rotational flap. 2. Coronary artery disease: Status post CABG 3 vessels. No cardiovascular complaints at this time. Continue current medications. 3. Chronic systolic congestive heart failure: Not in acute exacerbation. Continue beta-murphy. Monitor for fluid overload. 4. End-stage renal disease: Hemodialysis Tuesday/Tuesday/Tuesday. Appreciate nephrology management. 5. Diabetes mellitus: Continue Levemir. Monitor Accu-Cheks and cover with sliding scale insulin. 6. History of CVA: Continue Plavix, statin. 7. Left great toe wound: Appreciate podiatry recommendations. Continue wound care. Offloading heel raiser boots. 8. Hypothyroidism: Continue Synthroid. 9. DVT prophylaxis: Lovenox. Alex Hanley MD October 12, 2017 16:47
[2017-10-12] MEDS: CINACALCET HYDROCHLORIDE 30 MG TAB PO SCH (17:36)
[2017-10-12 20:00] VITALS: BP 136/61; PULSE 67; RESP 19; TEMP 98.1; O2SAT 96
[2017-10-12] MEDS: ATORVASTATIN 40 MG TAB PO SCH (21:49)
[2017-10-12] MEDS: ENOXAPARIN SODIUM 30 MG/0.3 ML SYRINGE SQ SCH (21:50)
[2017-10-13] VITALS: BP 135/62; PULSE 65; RESP 19; TEMP 98.7; O2SAT 97
[2017-10-13] MEDS ORDERED: MORPHINE SULFATE 4 MG/ML INJ IV PUSH PRN (03:30)
[2017-10-13] MEDS: LINEZOLID 600 MG PREMIX 300 ML IV SCH ×2 (06:21→18:07)
[2017-10-13] MEDS: metroNIDAZOLE 500 MG TAB PO SCH ×3 (06:21→19:52)
[2017-10-13] MEDS: LEVOTHYROXINE SODIUM 125 MCG TAB PO SCH (06:21)
[2017-10-13 08:00] VITALS: BP 125/61; PULSE 60; RESP 18; TEMP 97.2; O2SAT 94
[2017-10-13] MEDS: MEDIUM DOSE INSULIN NOVOLOG SUPPLEMENTAL SCALE SQ SCH ×4 (08:00→20:12)
[2017-10-13] MEDS: DOCUSATE SODIUM 50 MG/SENNA 8.6 MG TAB PO SCH ×2 (08:05→19:53)
[2017-10-13] MEDS: Hickman Catheter Daily NS Lock Flush IV FLUSH SCH (08:05)
[2017-10-13] MEDS: GABAPENTIN 100 MG CAP PO SCH ×3 (08:05→18:08)
[2017-10-13] MEDS: CARVEDILOL 6.25 MG TAB PO SCH ×2 (08:06→19:52)
[2017-10-13] MEDS: EZETIMIBE 10 MG TAB PO SCH (08:06)
[2017-10-13] MEDS: FAMOTIDINE 20 MG TAB PO SCH ×2 (08:06→19:52)
[2017-10-13] MEDS: CLOPIDOGREL 75 MG TAB PO SCH (08:06)
[2017-10-13] MEDS: SEVELAMER CARBONATE 800 MG TAB PO SCH ×3 (08:06→18:08)
[2017-10-13] MEDS: CHOLECALCIFEROL (VIT D3) 1000 UNIT TAB PO SCH (08:06)
[2017-10-13] MEDS: LACTOBACILLUS ACIDOPHILUS TAB PO SCH ×3 (08:07→18:08)
[2017-10-13] MEDS: INSULIN DETEMIR 100 UNITS/ML VIAL SQ SCH ×2 (08:07→20:05)
[2017-10-13] MEDS: SODIUM CHLORIDE 0.9% FLUSH 10 ML FLUSH IV FLUSH SCH ×2 (08:07→19:56)
[2017-10-13 08:57] LABS: AUTOMATED NEUTROPHIL # 4.7 TH/MM3 (1.8-7.7); BASOPHIL # 0.2 TH/MM3 (0-0.2); BASOPHIL % 1.8 % (0.0-2.0); EOSINOPHIL # 0.2 TH/MM3 (0-0.4); EOSINOPHIL % 2.2 % (0.0-4.0); HEMATOCRIT 33.2 % (35.0-46.0); HEMOGLOBIN 10.6 GM/DL (11.6-15.3); LYMPH % 22.7 % (9.0-44.0); LYMPHOCYTE # 1.9 TH/MM3 (1.0-4.8); MEAN CELL VOLUME 96.7 FL (80.0-100.0); MEAN CORPUSCULAR HEMOGLOBIN 30.8 PG (27.0-34.0); MEAN CORPUSCULAR HGB CONC 31.8 % (32.0-36.0); MEAN PLATELET VOLUME 7.7 FL (7.0-11.0); MONO % 17.1 % (0.0-8.0); MONOCYTE # 1.4 TH/MM3 (0-0.9); NEUT % 56.2 % (16.0-70.0); PLATELET COUNT 213 TH/MM3 (150-450); RED BLOOD COUNT 3.44 MIL/MM3 (4.00-5.30); RED CELL DISTRIBUTION WIDTH 19.5 % (11.6-17.2); WHITE BLOOD COUNT 8.3 TH/MM3 (4.0-11.0)
[2017-10-13 09:06] LABS: BICARBONATE 26.8 MEQ/L (21.0-32.0); CALCIUM 7.9 MG/DL (8.5-10.1); CREATININE 4.11 MG/DL (0.50-1.00)
--- NOTE | 2017-10-13 10:58 | HHI.PR ---
Subjective Remarks Follow up wound infection. Patient has no complaints at this time. Has had some loose stools this morning. Objective Vitals Vital Signs Date Time Temp Pulse Resp B/P (MAP) Pulse Ox O2 Delivery O2 Flow Rate FiO2 10/13/17 08:00 97.2 60 18 125/61 (82) 94 10/13/17 04:39 18 10/13/17 00:00 98.7 65 19 135/62 (86) 97 10/12/17 20:00 98.1 67 19 136/61 (86) 96 10/12/17 16:00 97.4 70 17 150/68 (95) 98 10/12/17 14:22 98 21 I/O 10/12/17 10/12/17 10/12/17 10/13/17 10/13/17 10/13/17 06:59 14:59 22:59 06:59 14:59 22:59 Intake Total 650 ml 240 ml 680 ml 300 ml Output Total 50 ml Balance 600 ml 240 ml 680 ml 300 ml Intake Oral 650 ml 240 ml 680 ml IV Total 300 ml Drainage Total 50 ml # Voids 1 0 1 # Bowel Movements 1 1 1 1 Result Diagram: 10/13/17 0810 10/13/17 0810 Imaging Last Impressions Pelvis CT 10/07/17 0000 Signed Impressions: Service Date/Time: Saturday, October 07, 2017 21:04 - CONCLUSION: 1. Large soft tissue defect involving the left groin which does not reach the bypass. Intact soft tissue is noted surrounding the bypass. There is a small amount of circumferential fluid surrounding the proximal bypass. 2. Anasarca. Ryan Nugent Jr., MD Objective Remarks General: Obese elderly female in no acute distress. Heart: Regular rate and rhythm. No murmur. Lungs: Clear to auscultation bilaterally. No wheezes, rales, or rhonchi. Breathing is nonlabored. Abdomen: Soft, nontender, nondistended. Extremities: 2+ bilateral lower extremity edema. Psych: Alert and oriented. Neuro: Normal speech. No focal deficits noted. Skin: Left groin and upper left leg wound examined, packing removed by vascular surgery. Procedures 10/07/17 debridement of left groin wound Urinary Catheter: No Vascular Central Line Catheter: No A/P Assessment and Plan 1. Infected left groin hematoma, cellulitis left groin: Continue IV antibiotics per infectious disease recommendations. Wound culture growing Klebsiella pneumonia multidrug resistant, and VRE. Management per vascular surgery. Patient will likely need further surgical debridement on Tuesday. 2. Coronary artery disease: Status post CABG 3 vessels. No cardiovascular complaints at this time. Continue current medications. 3. Chronic systolic congestive heart failure: Not in acute exacerbation. Continue beta-murphy. Monitor for fluid overload. 4. End-stage renal disease: Hemodialysis Tuesday/Tuesday/Tuesday. Appreciate nephrology management. 5. Diabetes mellitus: Continue Levemir. Monitor Accu-Cheks and cover with sliding scale insulin. 6. History of CVA: Continue Plavix, statin. 7. Left great toe wound: Appreciate podiatry recommendations. Continue wound care. Offloading heel raiser boots. 8. Hypothyroidism: Continue Synthroid. 9. DVT prophylaxis: Lovenox. Seen and discussed with Dr. Brothers. Alex Hanley MD October 13, 2017 10:58
[2017-10-13 12:00] VITALS: BP 132/62; PULSE 67; RESP 19; TEMP 97; O2SAT 92
[2017-10-13] MEDS: ACETAMINOPHEN/HYDROcodone 325 MG/5 MG TAB PO PRN ×2 (13:08→18:08)
--- NOTE | 2017-10-13 13:22 | HHI.IDPN ---
Note Infectious Disease Note Patient feels okay. She notes one episode of nausea and a little bit of vomitus. Notes 1 episode of loose stools yesterday also. States that she still has some pain in the left groin. No Chills or SOB. Ambulates in the room. Left groin wound culture has VRE, Klebsiella and another multi resistant bacteria not identified. Left groin wound wound also has Rosa glabrata. Pathology evaluation shows adipose tissue with marked acute inflammation and necrosis PAST MEDICAL HISTORY: Diabetes mellitus, hypertension, peripheral vascular disease, hyperlipidemia, coronary artery disease, end-stage renal disease treated with hemodialysis. Left femoral artery bypass surgery on 08/30/2017 with graft. ALLERGIES: AMLODIPINE, ADHESIVE TAPE. MEDICATIONS: Current Medications Medications (Trade) Dose Ordered Sig/Julius Route PRN Reason Start Time Stop Time Status Last Admin Dose Admin Sodium Chloride (NS Flush) 5 ml DAILY IV FLUSH 10/08/17 09:00 10/13/17 08:05 Heparin Sodium (Porcine) (Heparin Central Flush) 500 units DAILY IV FLUSH 10/08/17 09:00 10/13/17 08:05 Sodium Chloride (NS Flush) 5 ml UNSCH PRN IV FLUSH SEE PROTOCOL TABLE 10/07/17 13:15 10/07/17 13:20 Heparin Sodium (Porcine) (Heparin Central Flush) 500 units UNSCH PRN IV FLUSH SEE PROTOCOL TABLE 10/07/17 13:15 Sodium Chloride (NS Flush) 2 ml UNSCH PRN IV FLUSH FLUSH AFTER USING IV ACCESS 10/07/17 15:30 Sodium Chloride (NS Flush) 2 ml BID IV FLUSH 10/07/17 21:00 10/13/17 08:07 Acetaminophen (Tylenol) 650 mg Q4H PRN PO TEMP > 100.4 10/07/17 16:00 Naloxone HCl (Narcan Inj) 0.4 mg UNSCH PRN IV PUSH SEE LABEL COMMENTS 10/07/17 16:00 Magnesium Hydroxide (Milk Of Magnesia Liq) 30 ml Q12H PRN PO Mild constipation 10/07/17 15:30 Sennosides (Senokot) 17.2 mg Q12H PRN PO Moderate constipation 10/07/17 15:30 Bisacodyl (Dulcolax Supp) 10 mg DAILY PRN RECTAL SEVERE CONSITIPATION 10/07/17 16:00 Lactulose (Lactulose Liq) 30 ml DAILY PRN PO SEVERE CONSITIPATION 10/07/17 15:30 Enoxaparin Sodium (Lovenox Inj) 30 mg Q24H SQ 10/07/17 20:00 10/12/17 21:50 Acetaminophen/ Hydrocodone Bitart ([place] 5-325 Mg) 1 tab Q4H PRN PO pain 2-10 10/07/17 15:45 10/13/17 13:08 Carvedilol (Coreg) 6.25 mg BID PO 10/07/17 21:00 10/13/17 08:06 Cholecalciferol (Vitamin D3) 1,000 units DAILY PO 10/08/17 09:00 10/13/17 08:06 Clopidogrel Bisulfate (Plavix) 75 mg DAILY PO 10/08/17 09:00 10/13/17 08:06 Famotidine (Pepcid) 10 mg BID PO 10/07/17 21:00 10/13/17 08:06 Gabapentin (Neurontin) 200 mg TID PO 10/07/17 18:00 10/13/17 13:07 Insulin Detemir (Levemir Inj) 17 units HS SQ 10/07/17 21:00 10/12/17 21:49 Insulin Detemir (Levemir Inj) 20 units DAILY SQ 10/08/17 09:00 10/13/17 08:07 Lactobacillus Acidophilus (Lactinex) 1 tab TID PO 10/07/17 18:00 10/13/17 13:07 Levothyroxine Sodium (Synthroid) 125 mcg DAILY@0600 PO 10/08/17 06:00 10/13/17 06:21 Nitroglycerin (Nitrostat Sl) 0.4 mg Q5M PRN SL CHEST PAIN 10/07/17 15:45 Senna/Docusate Sodium (Lucinda-Colace) 1 tab BID PO 10/07/17 21:00 10/13/17 08:05 Sevelamer Carbonate (Renvela) 800 mg TID PO 10/07/17 18:00 10/13/17 13:07 Ondansetron HCl (Zofran Odt) 4 mg Q6H PRN PO NAUSEA OR VOMITING 10/07/17 15:45 10/12/17 05:55 EZETIMIBE (Zetia) 10 mg DAILY PO 10/08/17 09:00 10/13/17 08:06 Atorvastatin Calcium (Lipitor) 40 mg HS PO 10/07/17 21:00 10/12/17 21:49 Cinacalcet (Sensipar) 60 mg WITH DINNER PO 10/07/17 18:00 10/12/17 17:36 Sodium Chloride 1,000 ml @ 0 mls/hr Q0M PRN OTHER For Prime & Rinse Back 10/07/17 16:53 Heparin Sodium (Porcine) (Heparin Inj) 8,000 units UNSCH PRN IV FLUSH WITH DIALYSIS 10/07/17 17:00 Sodium Chloride 1,000 ml @ 200 mls/hr Q5H PRN IV WITH DIALYSIS 10/07/17 16:53 10/08/17 11:39 Sodium Chloride 1,000 ml @ 0 mls/hr Q0M PRN OTHER WITH DIALYSIS 10/07/17 16:53 Mannitol (Mannitol Inj) 12.5 gm UNSCH PRN IV WITH DIALYSIS 10/07/17 17:00 Albumin Human 100 ml @ 60 mls/hr UNSCH PRN IV WITH DIALYSIS 10/07/17 17:00 10/12/17 09:16 Sodium Chloride (NS Flush) 5 ml UNSCH PRN IV FLUSH WITH DIALYSIS 10/07/17 17:00 Heparin Sodium (Porcine) (Heparin Inj) UNSCH PRN .XX WITH DIALYSIS 10/07/17 17:00 10/08/17 11:39 Gentamicin Sulfate (Gentamicin Inj) 20 mg UNSCH PRN OTHER WITH DIALYSIS 10/07/17 17:00 10/08/17 11:40 Ondansetron HCl (Zofran Inj) 4 mg UNSCH PRN IV PUSH WITH DIALYSIS 10/07/17 17:00 Acetaminophen (Tylenol) 650 mg UNSCH PRN PO for headach, pain, temp > 101F 10/07/17 17:00 Diphenhydramine HCl (Benadryl) 25 mg UNSCH PRN PO for hives/itching/anaphylaxis 10/07/17 17:00 Nitroglycerin (Nitrostat Sl) 0.4 mg UNSCH PRN SL CHEST PAIN 10/07/17 17:00 Clonidine (Catapres) 0.1 mg UNSCH PRN PO for BP > 180/100 X 2 readings 10/07/17 17:00 Epoetin Dio (Epogen Inj) 8,000 units UNSCH PRN IV PUSH WITH DIALYSIS 10/07/17 17:00 10/12/17 12:37 Gelatin (Gelfoam 12 Mm/7 Mm Top) 1 foam UNSCH PRN TOP SEE LABEL COMMENTS 10/07/17 17:00 10/12/17 09:16 Ergocalciferol (Drisdol) 50,000 units Q14D PO 10/07/17 18:00 10/07/17 18:49 Meropenem 500 mg/ Sodium Chloride 100 ml @ 200 mls/hr Q24H IV 10/08/17 16:00 10/12/17 15:33 Metronidazole (Flagyl) 500 mg Q8HR PO 10/08/17 22:00 10/13/17 13:07 Fluconazole/ Sodium Chloride 50 ml @ 50 mls/hr Q24H IV 10/08/17 15:00 10/12/17 14:10 Dextrose (D50w (Vial) Inj) 50 ml UNSCH PRN IV PUSH HYPOGLYCEMIA - SEE COMMENTS 10/09/17 16:45 Glucagon (Glucagon Inj) 1 mg UNSCH PRN OTHER HYPOGLYCEMIA-SEE COMMENTS 10/09/17 16:45 Insulin Aspart (NovoLOG SUPPLEMENTAL SCALE) 1 ACHS SLIDING SCALE SQ 10/09/17 17:00 10/12/17 21:50 Linezolid 300 ml @ 300 mls/hr Q12H IV 10/10/17 18:00 10/13/17 06:21 Morphine Sulfate (Morphine Inj) 2 mg Q4H PRN IV PUSH breakthrough pain 10/13/17 03:30 10/13/17 03:44 OBJECTIVE: Vital Signs Date Time Temp Pulse Resp B/P (MAP) Pulse Ox O2 Delivery O2 Flow Rate FiO2 10/13/17 12:00 97.0 67 19 132/62 (85) 92 10/13/17 08:00 97.2 60 18 125/61 (82) 94 10/13/17 04:39 18 10/13/17 00:00 98.7 65 19 135/62 (86) 97 10/12/17 20:00 98.1 67 19 136/61 (86) 96 10/12/17 16:00 97.4 70 17 150/68 (95) 98 5/16/18 14:22 98 21 Laboratory Tests Test 10/12/17 06:00 10/13/17 08:10 White Blood Count 9.6 TH/MM3 8.3 TH/MM3 Red Blood Count 3.55 MIL/MM3 3.44 MIL/MM3 Hemoglobin 11.0 GM/DL 10.6 GM/DL Hematocrit 34.0 % 33.2 % Mean Corpuscular Volume 95.8 FL 96.7 FL Mean Corpuscular Hemoglobin 31.1 PG 30.8 PG Mean Corpuscular Hemoglobin Concent 32.4 % 31.8 % Red Cell Distribution Width 19.6 % 19.5 % Platelet Count 232 TH/MM3 213 TH/MM3 Mean Platelet Volume 7.7 FL 7.7 FL Neutrophils (%) (Auto) 56.2 % Lymphocytes (%) (Auto) 22.7 % Monocytes (%) (Auto) 17.1 % Eosinophils (%) (Auto) 2.2 % Basophils (%) (Auto) 1.8 % Neutrophils # (Auto) 4.7 TH/MM3 Lymphocytes # (Auto) 1.9 TH/MM3 Monocytes # (Auto) 1.4 TH/MM3 Eosinophils # (Auto) 0.2 TH/MM3 Basophils # (Auto) 0.2 TH/MM3 CBC Comment DIFF FINAL Differential Comment Laboratory Tests Test 10/12/17 06:00 10/13/17 08:10 Blood Urea Nitrogen 31 MG/DL 24 MG/DL Creatinine 4.55 MG/DL 4.11 MG/DL Random Glucose 138 MG/DL 86 MG/DL Albumin 2.0 GM/DL Calcium Level 8.1 MG/DL 7.9 MG/DL Phosphorus Level 4.5 MG/DL Sodium Level 130 MEQ/L 134 MEQ/L Potassium Level 3.7 MEQ/L 3.8 MEQ/L Chloride Level 90 MEQ/L 95 MEQ/L Carbon Dioxide Level 25.1 MEQ/L 26.8 MEQ/L Anion Gap 15 MEQ/L 12 MEQ/L Estimat Glomerular Filtration Rate 9 ML/MIN 11 ML/MIN IMAGING: Pelvis CT 10/07/17 0000 Signed Impressions: Service Date/Time: Saturday, October 07, 2017 21:04 - CONCLUSION: 1. Large soft tissue defect involving the left groin which does not reach the bypass. Intact soft tissue is noted surrounding the bypass. There is a small amount of circumferential fluid surrounding the proximal bypass. 2. Anasarca. Ryan Nugent Jr., MD PHYSICAL EXAMINATION: GENERAL: No acute distress. She is awake and alert. HEENT: No icterus. No conjunctival erythema. Oropharynx moist mucosa. No visible lesions. No thrush. NECK: Supple without adenopathy or swelling. LUNGS: Clear breath sounds. HEART: Regular rate and rhythm. No murmurs, rubs or gallops. ABDOMEN: Bowel sounds, moderately obese, soft, nontender. GROIN: The left groin has an open wound with very good clean base tissue with granulation. Erythema present at the surrounding skin particularly at the outer portion EXTREMITIES: No clubbing, cyanosis or edema. SKIN: No rash. NEUROLOGIC: No gross focal findings. PSYCHIATRIC: Pleasant, calm and cooperative. IMPRESSION: 1. Wound infection of the left groin, nonhealing. Underwent debridement of the wound left open and is being packed. New culture has VRE, Klebsiella and 3rd organism and also Rosa. Rosa identified as Rosa glabrata. 2. Status post femoral bypass with graft. The graft does not appear to be involved with the infection. 3. Poor wound healing, which could be due to some underlying clinical condition which prevents adequate healing. RECOMMENDATIONS: 1. Continue meropenem for gram-negative coverage including resistant bacteria. 2. Change Diflucan to micafungin for Rosa glabrata. 3. Continue Flagyl to cover potential anaerobes. 4. Continue Zyvox for VRE. 5. Continue to monitor clinical response. Bernardo Corrales MD October 13, 2017 13:22
[2017-10-13] MEDS: MEROPENEM INJ 500 MG in SODIUM CHLORIDE 0.9% INJ 100 ML IV SCH (14:32)
[2017-10-13] MEDS: MICAFUNGIN INJ 100 MG in SODIUM CHLORIDE 0.9% INJ 100 ML IV SCH (14:32)
[2017-10-13 16:00] VITALS: BP 143/61; PULSE 63; RESP 18; TEMP 98.4; O2SAT 94
[2017-10-13] MEDS: CINACALCET HYDROCHLORIDE 30 MG TAB PO SCH (18:08)
[2017-10-13] MEDS: ATORVASTATIN 40 MG TAB PO SCH (19:51)
[2017-10-13] MEDS: ENOXAPARIN SODIUM 30 MG/0.3 ML SYRINGE SQ SCH (19:54)
[2017-10-13 20:00] VITALS: BP 139/60; PULSE 60; RESP 18; TEMP 97.5; O2SAT 96
[2017-10-14] VITALS: BP 159/70; PULSE 59; RESP 20; TEMP 98; O2SAT 97
[2017-10-14] MEDS: metroNIDAZOLE 500 MG TAB PO SCH ×3 (05:32→21:25)
[2017-10-14] MEDS: LEVOTHYROXINE SODIUM 125 MCG TAB PO SCH (05:32)
[2017-10-14] MEDS: LINEZOLID 600 MG PREMIX 300 ML IV SCH ×2 (05:34→17:53)
[2017-10-14 06:48] LABS: HEMATOCRIT 34.1 % (35.0-46.0); HEMOGLOBIN 10.9 GM/DL (11.6-15.3); MEAN CORPUSCULAR HEMOGLOBIN 30.8 PG (27.0-34.0); MEAN CORPUSCULAR HGB CONC 32.1 % (32.0-36.0); MEAN PLATELET VOLUME 7.7 FL (7.0-11.0); PLATELET COUNT 213 TH/MM3 (150-450); RED BLOOD COUNT 3.55 MIL/MM3 (4.00-5.30); RED CELL DISTRIBUTION WIDTH 19.3 % (11.6-17.2); WHITE BLOOD COUNT 7.4 TH/MM3 (4.0-11.0)
[2017-10-14 07:04] LABS: ALBUMIN 2.2 GM/DL (3.4-5.0); BICARBONATE 27.8 MEQ/L (21.0-32.0); CALCIUM 7.8 MG/DL (8.5-10.1); CREATININE 4.79 MG/DL (0.50-1.00)
[2017-10-14 07:05] LABS: PHOSPHORUS 4.8 MG/DL (2.5-4.9)
[2017-10-14 07:06] LABS: CALCIUM-PROTEIN CORRECTED 8.5 MG/DL (8.5-10.1); TOTAL PROTEIN 5.9 GM/DL (6.4-8.2)
[2017-10-14] MEDS: MEDIUM DOSE INSULIN NOVOLOG SUPPLEMENTAL SCALE SQ SCH ×4 (07:36→21:00)
[2017-10-14 08:00] VITALS: BP 158/65; PULSE 58; RESP 18; TEMP 97.5; O2SAT 98
[2017-10-14] MEDS: GABAPENTIN 100 MG CAP PO SCH ×3 (08:41→18:04)
[2017-10-14] MEDS: CLOPIDOGREL 75 MG TAB PO SCH (08:41)
[2017-10-14] MEDS: SEVELAMER CARBONATE 800 MG TAB PO SCH ×3 (08:41→18:04)
[2017-10-14] MEDS: FAMOTIDINE 20 MG TAB PO SCH ×2 (08:41→21:24)
[2017-10-14] MEDS: DOCUSATE SODIUM 50 MG/SENNA 8.6 MG TAB PO SCH ×2 (08:42→21:25)
[2017-10-14] MEDS: CARVEDILOL 6.25 MG TAB PO SCH ×2 (08:42→21:24)
[2017-10-14] MEDS: LACTOBACILLUS ACIDOPHILUS TAB PO SCH ×3 (08:42→18:05)
[2017-10-14] MEDS: CHOLECALCIFEROL (VIT D3) 1000 UNIT TAB PO SCH (08:42)
[2017-10-14] MEDS: ACETAMINOPHEN/HYDROcodone 325 MG/5 MG TAB PO PRN ×2 (08:42→21:24)
[2017-10-14] MEDS: Hickman Catheter Daily NS Lock Flush IV FLUSH SCH (08:43)
[2017-10-14] MEDS: SODIUM CHLORIDE 0.9% FLUSH 10 ML FLUSH IV FLUSH SCH ×2 (08:43→21:25)
[2017-10-14] MEDS: EZETIMIBE 10 MG TAB PO SCH (08:43)
[2017-10-14] MEDS: INSULIN DETEMIR 100 UNITS/ML VIAL SQ SCH ×2 (08:44→21:26)
--- NOTE | 2017-10-14 11:09 | HHI.NPPN ---
Subjective History of Present Illness This patient is a 72-year-old female with a history of multiple medical problems including diabetes mellitus, hypertension, end-stage renal disease, anemia renal disease and peripheral vascular disease now recently status post left femoropopliteal bypass after developing subacute occlusion. Patient recently admitted with hematoma/infection complicating the femoropopliteal bypass. She has been in [facility] since 09/24, but had to have debridement of L groin hematoma this AM. Interval History Pt seen during PT today In good spirits Significant edema today (Ayala Simmons) Review of Systems General General Remarks No specific complaints (Ayala Simmons) Objective Data Data Vital Signs Date Time Temp Pulse Resp B/P (MAP) Pulse Ox O2 Delivery O2 Flow Rate FiO2 10/14/17 08:00 97.5 58 18 158/65 (96) 98 10/14/17 00:00 98.0 59 20 159/70 (99) 97 10/13/17 20:00 97.5 60 18 139/60 (86) 96 10/13/17 16:00 98.4 63 18 143/61 (88) 94 10/13/17 12:00 97.0 67 19 132/62 (85) 92 (Ayala Simmons) -: 10/14/17 0600 10/14/17 0600 Imaging Last Impressions Pelvis CT 10/07/17 0000 Signed Impressions: Service Date/Time: Saturday, October 07, 2017 21:04 - CONCLUSION: 1. Large soft tissue defect involving the left groin which does not reach the bypass. Intact soft tissue is noted surrounding the bypass. There is a small amount of circumferential fluid surrounding the proximal bypass. 2. Anasarca. Ryan Nugent Jr., MD Medication Review Current Medications Medications (Trade) Dose Ordered Sig/Julius Route Start Time Stop Time Status Last Admin (NS Flush) 5 ml DAILY IV FLUSH 10/08/17 09:00 10/14/17 08:43 (Heparin Central Flush) 500 units DAILY IV FLUSH 10/08/17 09:00 10/14/17 08:48 (NS Flush) 5 ml UNSCH PRN IV FLUSH 10/07/17 13:15 10/07/17 13:20 (Heparin Central Flush) 500 units UNSCH PRN IV FLUSH 10/07/17 13:15 (NS Flush) 2 ml UNSCH PRN IV FLUSH 10/07/17 15:30 (NS Flush) 2 ml BID IV FLUSH 10/07/17 21:00 10/13/17 19:56 (Tylenol) 650 mg Q4H PRN PO 10/07/17 16:00 (Narcan Inj) 0.4 mg UNSCH PRN IV PUSH 10/07/17 16:00 (Milk Of Magnesia Liq) 30 ml Q12H PRN PO 10/07/17 15:30 (Senokot) 17.2 mg Q12H PRN PO 10/07/17 15:30 (Dulcolax Supp) 10 mg DAILY PRN RECTAL 10/07/17 16:00 (Lactulose Liq) 30 ml DAILY PRN PO 10/07/17 15:30 (Lovenox Inj) 30 mg Q24H SQ 10/07/17 20:00 10/13/17 19:54 ([place] 5-325 Mg) 1 tab Q4H PRN PO 10/07/17 15:45 10/14/17 08:42 (Coreg) 6.25 mg BID PO 10/07/17 21:00 10/14/17 08:42 (Vitamin D3) 1,000 units DAILY PO 10/08/17 09:00 10/14/17 08:42 (Plavix) 75 mg DAILY PO 10/08/17 09:00 10/14/17 08:41 (Pepcid) 10 mg BID PO 10/07/17 21:00 10/14/17 08:41 (Neurontin) 200 mg TID PO 10/07/17 18:00 10/14/17 08:41 (Levemir Inj) 17 units HS SQ 10/07/17 21:00 10/13/17 20:05 (Levemir Inj) 20 units DAILY SQ 10/08/17 09:00 10/14/17 08:44 (Lactinex) 1 tab TID PO 10/07/17 18:00 10/14/17 08:42 (Synthroid) 125 mcg DAILY@0600 PO 10/08/17 06:00 10/14/17 05:32 (Nitrostat Sl) 0.4 mg Q5M PRN SL 10/07/17 15:45 (Lucinda-Colace) 1 tab BID PO 10/07/17 21:00 10/13/17 08:05 (Renvela) 800 mg TID PO 10/07/17 18:00 10/14/17 08:41 (Zofran Odt) 4 mg Q6H PRN PO 10/07/17 15:45 10/12/17 05:55 (Zetia) 10 mg DAILY PO 10/08/17 09:00 10/14/17 08:43 (Lipitor) 40 mg HS PO 10/07/17 21:00 10/13/17 19:51 (Sensipar) 60 mg WITH DINNER PO 10/07/17 18:00 10/13/17 18:08 Sodium Chloride 1,000 ml @ 0 mls/hr Q0M PRN OTHER 10/07/17 16:53 (Heparin Inj) 8,000 units UNSCH PRN IV FLUSH 10/07/17 17:00 Sodium Chloride 1,000 ml @ 200 mls/hr Q5H PRN IV 10/07/17 16:53 10/08/17 11:39 Sodium Chloride 1,000 ml @ 0 mls/hr Q0M PRN OTHER 10/07/17 16:53 (Mannitol Inj) 12.5 gm UNSCH PRN IV 10/07/17 17:00 Albumin Human 100 ml @ 60 mls/hr UNSCH PRN IV 10/07/17 17:00 10/12/17 09:16 (NS Flush) 5 ml UNSCH PRN IV FLUSH 10/07/17 17:00 (Heparin Inj) UNSCH PRN .XX 10/07/17 17:00 10/08/17 11:39 (Gentamicin Inj) 20 mg UNSCH PRN OTHER 10/07/17 17:00 10/08/17 11:40 (Zofran Inj) 4 mg UNSCH PRN IV PUSH 10/07/17 17:00 (Tylenol) 650 mg UNSCH PRN PO 10/07/17 17:00 (Benadryl) 25 mg UNSCH PRN PO 10/07/17 17:00 (Nitrostat Sl) 0.4 mg UNSCH PRN SL 10/07/17 17:00 (Catapres) 0.1 mg UNSCH PRN PO 10/07/17 17:00 (Epogen Inj) 8,000 units UNSCH PRN IV PUSH 10/07/17 17:00 10/12/17 12:37 (Gelfoam 12 Mm/7 Mm Top) 1 foam UNSCH PRN TOP 10/07/17 17:00 10/12/17 09:16 (Drisdol) 50,000 units Q14D PO 10/07/17 18:00 10/07/17 18:49 Meropenem 500 mg/ Sodium Chloride 100 ml @ 200 mls/hr Q24H IV 10/08/17 16:00 10/13/17 14:32 (Flagyl) 500 mg Q8HR PO 10/08/17 22:00 10/14/17 05:32 (D50w (Vial) Inj) 50 ml UNSCH PRN IV PUSH 10/09/17 16:45 (Glucagon Inj) 1 mg UNSCH PRN OTHER 10/09/17 16:45 (NovoLOG SUPPLEMENTAL SCALE) 1 ACHS SLIDING SCALE SQ 10/09/17 17:00 10/13/17 20:12 Linezolid 300 ml @ 300 mls/hr Q12H IV 10/10/17 18:00 10/14/17 05:34 (Morphine Inj) 2 mg Q4H PRN IV PUSH 10/13/17 03:30 10/13/17 03:44 Micafungin Sodium 100 mg/Sodium Chloride 100 ml @ 100 mls/hr Q24H IV 10/13/17 14:00 10/13/17 14:32 (Ayala Simmons) Physical Exam General Appearance: Well Developed, No Acute Distress, Comfortable (Ayala Simmons) Eyes Eye Exam: Sclera White (Ayala Simmons) Pulmonary Resp Exam: Clear Bilaterally, Breath Sounds Equal, No Distress (Ayala Simmons) Cardiology CV Exam: Regular, Normal Sinus Rhythm (Ayala Simmons) Gastrointestinal/Abdomen GI Exam: Soft, Non-Tender (Ayala Simmons) Integumentary Skin Exam: Clear, Warm (Ayala Simmons) Extremeties Extremities Exam: Moderate Edema (generalized) (Ayala Simmons) Neurologic Neuro Exam: Alert, Awake (Simmons,Ayala Jesica PA) Assessment/Plan Discussed Condition With: Patient Problem List: (1) ESRD (end stage renal disease) on dialysis ICD Codes: N18.6 - End stage renal disease; Z99.2 - Dependence on renal dialysis Status: Chronic Plan: Pending HD today Will try for additional UF given her edema Refused extra treatment tomorrow. Will try for UF of 4-4.5L as tolerated all next week. Continue Renvela for hyperphosphatemia. Encouraged to eat more protein. Will order Nepro as supplement. Medications should be adjusted for the patient's ESRD. Avoid gadolinium (2) Hematoma of groin ICD Codes: S30.1XXA - Contusion of abdominal wall, initial encounter Status: Acute Plan: s/p debridement 10/08 Wound cx Rosa, VRE, and Kleb. Now on Micafungin, Flagyl, and Zyvox (3) Peripheral vascular disease ICD Codes: I73.9 - Peripheral vascular disease, unspecified Status: Acute (4) Anemia of renal disease ICD Codes: D63.1 - Anemia in chronic kidney disease Status: Chronic Plan: CBC in the AM Fe stores mildly low but will hold off on Venofer given infection. Epogen with HD (5) Diabetes mellitus type 2 with complications ICD Codes: E11.8 - Type 2 diabetes mellitus with unspecified complications Status: Chronic Plan: Mgmt as per primary (6) Secondary hyperparathyroidism of renal origin ICD Codes: N25.81 - Secondary hyperparathyroidism of renal origin Plan: Continue Sensipar and Ergocalciferol as before. (7) Hypertension ICD Codes: I10 - Essential (primary) hypertension Status: Acute (Ayala Simmons) Plan The exam, history, and the medical decision-making described in the above note were completed with the assistance of the PALety. I reviewed and agree with the findings presented. (Kimberly Sampson MD) Ayala Simmons October 14, 2017 11:09 Kimberly Sampson MD October 17, 2017 10:55
[2017-10-14 12:00] VITALS: BP 136/64; PULSE 61; RESP 18; TEMP 97.3; O2SAT 96
--- NOTE | 2017-10-14 12:46 | HHI.IDPN ---
Note Infectious Disease Note Patient feels okay. Had loose stool x 1. Little pain in the left groin. No Chills or SOB. Ambulates in the room. Afebrile. Left groin wound culture has VRE, Klebsiella multi drug resistant. Left groin wound wound also has Rosa glabrata. Pathology evaluation shows adipose tissue with marked acute inflammation and necrosis PAST MEDICAL HISTORY: Diabetes mellitus, hypertension, peripheral vascular disease, hyperlipidemia, coronary artery disease, end-stage renal disease treated with hemodialysis. Left femoral artery bypass surgery on 08/30/2017 with graft. ALLERGIES: AMLODIPINE, ADHESIVE TAPE. MEDICATIONS: Current Medications Medications (Trade) Dose Ordered Sig/Julius Route PRN Reason Start Time Stop Time Status Last Admin Dose Admin Sodium Chloride (NS Flush) 5 ml DAILY IV FLUSH 10/08/17 09:00 10/14/17 08:43 Heparin Sodium (Porcine) (Heparin Central Flush) 500 units DAILY IV FLUSH 10/08/17 09:00 10/14/17 08:48 Sodium Chloride (NS Flush) 5 ml UNSCH PRN IV FLUSH SEE PROTOCOL TABLE 10/07/17 13:15 10/07/17 13:20 Heparin Sodium (Porcine) (Heparin Central Flush) 500 units UNSCH PRN IV FLUSH SEE PROTOCOL TABLE 10/07/17 13:15 Sodium Chloride (NS Flush) 2 ml UNSCH PRN IV FLUSH FLUSH AFTER USING IV ACCESS 10/07/17 15:30 Sodium Chloride (NS Flush) 2 ml BID IV FLUSH 10/07/17 21:00 10/13/17 19:56 Acetaminophen (Tylenol) 650 mg Q4H PRN PO TEMP > 100.4 10/07/17 16:00 Naloxone HCl (Narcan Inj) 0.4 mg UNSCH PRN IV PUSH SEE LABEL COMMENTS 10/07/17 16:00 Magnesium Hydroxide (Milk Of Magnesia Liq) 30 ml Q12H PRN PO Mild constipation 10/07/17 15:30 Sennosides (Senokot) 17.2 mg Q12H PRN PO Moderate constipation 10/07/17 15:30 Bisacodyl (Dulcolax Supp) 10 mg DAILY PRN RECTAL SEVERE CONSITIPATION 10/07/17 16:00 Lactulose (Lactulose Liq) 30 ml DAILY PRN PO SEVERE CONSITIPATION 10/07/17 15:30 Enoxaparin Sodium (Lovenox Inj) 30 mg Q24H SQ 10/07/17 20:00 10/13/17 19:54 Acetaminophen/ Hydrocodone Bitart ([place] 5-325 Mg) 1 tab Q4H PRN PO pain 2-10 10/07/17 15:45 10/14/17 08:42 Carvedilol (Coreg) 6.25 mg BID PO 10/07/17 21:00 10/14/17 08:42 Cholecalciferol (Vitamin D3) 1,000 units DAILY PO 10/08/17 09:00 10/14/17 08:42 Clopidogrel Bisulfate (Plavix) 75 mg DAILY PO 10/08/17 09:00 10/14/17 08:41 Famotidine (Pepcid) 10 mg BID PO 10/07/17 21:00 10/14/17 08:41 Gabapentin (Neurontin) 200 mg TID PO 10/07/17 18:00 10/14/17 08:41 Insulin Detemir (Levemir Inj) 17 units HS SQ 10/07/17 21:00 10/13/17 20:05 Insulin Detemir (Levemir Inj) 20 units DAILY SQ 10/08/17 09:00 10/14/17 08:44 Lactobacillus Acidophilus (Lactinex) 1 tab TID PO 10/07/17 18:00 10/14/17 08:42 Levothyroxine Sodium (Synthroid) 125 mcg DAILY@0600 PO 10/08/17 06:00 10/14/17 05:32 Nitroglycerin (Nitrostat Sl) 0.4 mg Q5M PRN SL CHEST PAIN 10/07/17 15:45 Senna/Docusate Sodium (Lucinda-Colace) 1 tab BID PO 10/07/17 21:00 10/13/17 08:05 Sevelamer Carbonate (Renvela) 800 mg TID PO 10/07/17 18:00 10/14/17 08:41 Ondansetron HCl (Zofran Odt) 4 mg Q6H PRN PO NAUSEA OR VOMITING 10/07/17 15:45 10/12/17 05:55 EZETIMIBE (Zetia) 10 mg DAILY PO 10/08/17 09:00 10/14/17 08:43 Atorvastatin Calcium (Lipitor) 40 mg HS PO 10/07/17 21:00 10/13/17 19:51 Cinacalcet (Sensipar) 60 mg WITH DINNER PO 10/07/17 18:00 10/13/17 18:08 Sodium Chloride 1,000 ml @ 0 mls/hr Q0M PRN OTHER For Prime & Rinse Back 10/07/17 16:53 Heparin Sodium (Porcine) (Heparin Inj) 8,000 units UNSCH PRN IV FLUSH WITH DIALYSIS 10/07/17 17:00 Sodium Chloride 1,000 ml @ 200 mls/hr Q5H PRN IV WITH DIALYSIS 10/07/17 16:53 10/08/17 11:39 Sodium Chloride 1,000 ml @ 0 mls/hr Q0M PRN OTHER WITH DIALYSIS 10/07/17 16:53 Mannitol (Mannitol Inj) 12.5 gm UNSCH PRN IV WITH DIALYSIS 10/07/17 17:00 Albumin Human 100 ml @ 60 mls/hr UNSCH PRN IV WITH DIALYSIS 10/07/17 17:00 10/12/17 09:16 Sodium Chloride (NS Flush) 5 ml UNSCH PRN IV FLUSH WITH DIALYSIS 10/07/17 17:00 Heparin Sodium (Porcine) (Heparin Inj) UNSCH PRN .XX WITH DIALYSIS 10/07/17 17:00 10/08/17 11:39 Gentamicin Sulfate (Gentamicin Inj) 20 mg UNSCH PRN OTHER WITH DIALYSIS 10/07/17 17:00 10/08/17 11:40 Ondansetron HCl (Zofran Inj) 4 mg UNSCH PRN IV PUSH WITH DIALYSIS 10/07/17 17:00 Acetaminophen (Tylenol) 650 mg UNSCH PRN PO for headach, pain, temp > 101F 10/07/17 17:00 Diphenhydramine HCl (Benadryl) 25 mg UNSCH PRN PO for hives/itching/anaphylaxis 10/07/17 17:00 Nitroglycerin (Nitrostat Sl) 0.4 mg UNSCH PRN SL CHEST PAIN 10/07/17 17:00 Clonidine (Catapres) 0.1 mg UNSCH PRN PO for BP > 180/100 X 2 readings 10/07/17 17:00 Epoetin Dio (Epogen Inj) 8,000 units UNSCH PRN IV PUSH WITH DIALYSIS 10/07/17 17:00 10/12/17 12:37 Gelatin (Gelfoam 12 Mm/7 Mm Top) 1 foam UNSCH PRN TOP SEE LABEL COMMENTS 10/07/17 17:00 10/12/17 09:16 Ergocalciferol (Drisdol) 50,000 units Q14D PO 10/07/17 18:00 10/07/17 18:49 Meropenem 500 mg/ Sodium Chloride 100 ml @ 200 mls/hr Q24H IV 10/08/17 16:00 10/13/17 14:32 Metronidazole (Flagyl) 500 mg Q8HR PO 10/08/17 22:00 10/14/17 05:32 Dextrose (D50w (Vial) Inj) 50 ml UNSCH PRN IV PUSH HYPOGLYCEMIA - SEE COMMENTS 10/09/17 16:45 Glucagon (Glucagon Inj) 1 mg UNSCH PRN OTHER HYPOGLYCEMIA-SEE COMMENTS 10/09/17 16:45 Insulin Aspart (NovoLOG SUPPLEMENTAL SCALE) 1 ACHS SLIDING SCALE SQ 10/09/17 17:00 10/13/17 20:12 Linezolid 300 ml @ 300 mls/hr Q12H IV 10/10/17 18:00 10/14/17 05:34 Morphine Sulfate (Morphine Inj) 2 mg Q4H PRN IV PUSH breakthrough pain 10/13/17 03:30 10/13/17 03:44 Micafungin Sodium 100 mg/Sodium Chloride 100 ml @ 100 mls/hr Q24H IV 10/13/17 14:00 10/13/17 14:32 OBJECTIVE: Laboratory Tests Test 10/13/17 08:10 10/14/17 06:00 White Blood Count 8.3 TH/MM3 7.4 TH/MM3 Red Blood Count 3.44 MIL/MM3 3.55 MIL/MM3 Hemoglobin 10.6 GM/DL 10.9 GM/DL Hematocrit 33.2 % 34.1 % Mean Corpuscular Volume 96.7 FL 96.0 FL Mean Corpuscular Hemoglobin 30.8 PG 30.8 PG Mean Corpuscular Hemoglobin Concent 31.8 % 32.1 % Red Cell Distribution Width 19.5 % 19.3 % Platelet Count 213 TH/MM3 213 TH/MM3 Mean Platelet Volume 7.7 FL 7.7 FL Neutrophils (%) (Auto) 56.2 % Lymphocytes (%) (Auto) 22.7 % Monocytes (%) (Auto) 17.1 % Eosinophils (%) (Auto) 2.2 % Basophils (%) (Auto) 1.8 % Neutrophils # (Auto) 4.7 TH/MM3 Lymphocytes # (Auto) 1.9 TH/MM3 Monocytes # (Auto) 1.4 TH/MM3 Eosinophils # (Auto) 0.2 TH/MM3 Basophils # (Auto) 0.2 TH/MM3 CBC Comment DIFF FINAL Differential Comment Laboratory Tests Test 10/13/17 08:10 10/14/17 06:00 Blood Urea Nitrogen 24 MG/DL 31 MG/DL Creatinine 4.11 MG/DL 4.79 MG/DL Random Glucose 86 MG/DL 105 MG/DL Calcium Level 7.9 MG/DL 7.8 MG/DL Sodium Level 134 MEQ/L 131 MEQ/L Potassium Level 3.8 MEQ/L 4.0 MEQ/L Chloride Level 95 MEQ/L 92 MEQ/L Carbon Dioxide Level 26.8 MEQ/L 27.8 MEQ/L Anion Gap 12 MEQ/L 11 MEQ/L Estimat Glomerular Filtration Rate 11 ML/MIN 9 ML/MIN Total Protein 5.9 GM/DL Albumin 2.2 GM/DL Phosphorus Level 4.8 MG/DL Protein Corrected Calcium 8.5 MG/DL IMAGING: Pelvis CT 10/07/17 0000 Signed Impressions: Service Date/Time: Saturday, October 07, 2017 21:04 - CONCLUSION: 1. Large soft tissue defect involving the left groin which does not reach the bypass. Intact soft tissue is noted surrounding the bypass. There is a small amount of circumferential fluid surrounding the proximal bypass. 2. Anasarca. Ryan Nugent Jr., MD PHYSICAL EXAMINATION: GENERAL: No acute distress. She is awake and alert. HEENT: No icterus. No conjunctival erythema. Oropharynx moist mucosa. No visible lesions. No thrush. NECK: Supple without adenopathy or swelling. LUNGS: Clear breath sounds. HEART: Regular rate and rhythm. No murmurs, rubs or gallops. ABDOMEN: Bowel sounds, moderately obese, soft, nontender. GROIN: The left groin has an open wound with very good clean base tissue with granulation. creamy slough at edge. Erythema present at the surrounding skin particularly lateral 12 to 4 o'clock position at the outer portion EXTREMITIES: No clubbing, cyanosis, bilateral LE edema. SKIN: No rash. NEUROLOGIC: No gross focal findings. PSYCHIATRIC: Pleasant, calm and cooperative. IMPRESSION: 1. Wound infection of the left groin, nonhealing. Underwent debridement of the wound left open and is being packed. New culture has VRE, Klebsiella and 3rd organism and also Rosa. Rosa identified as Rosa glabrata. 2. Status post femoral bypass with graft. The graft does not appear to be involved with the infection. 3. Poor wound healing, which could be due to some underlying clinical condition which prevents adequate healing. RECOMMENDATIONS: 1. Continue meropenem for Klebsiella. 2. Continue micafungin for Rosa glabrata. 3. Continue Flagyl to cover potential anaerobes. 4. Continue Zyvox for VRE. 5. Monitor clinical response. Bernardo Corrales MD October 14, 2017 12:46
--- NOTE | 2017-10-14 15:19 | HHI.PR ---
Subjective Remarks Follow up loose stools, wound, diabetes. Patient seen in dialysis. She reports worsening diarrhea. No other complaints at this time. Objective Vitals Vital Signs Date Time Temp Pulse Resp B/P (MAP) Pulse Ox O2 Delivery O2 Flow Rate FiO2 10/14/17 12:00 97.3 61 18 136/64 (88) 96 10/14/17 08:00 97.5 58 18 158/65 (96) 98 10/14/17 00:00 98.0 59 20 159/70 (99) 97 10/13/17 20:00 97.5 60 18 139/60 (86) 96 10/13/17 16:00 98.4 63 18 143/61 (88) 94 I/O 10/13/17 10/13/17 10/13/17 10/14/17 10/14/17 10/14/17 07:00 15:00 23:00 07:00 15:00 23:00 Intake Total 680 ml 300 ml 1400 ml 300 ml Balance 680 ml 300 ml 1400 ml 300 ml Intake Oral 680 ml 1400 ml IV Total 300 ml 300 ml # Voids 1 4 1 # Bowel Movements 1 3 1 Result Diagram: 10/14/17 0600 10/14/17 0600 Imaging Last Impressions Pelvis CT 10/07/17 0000 Signed Impressions: Service Date/Time: Saturday, October 07, 2017 21:04 - CONCLUSION: 1. Large soft tissue defect involving the left groin which does not reach the bypass. Intact soft tissue is noted surrounding the bypass. There is a small amount of circumferential fluid surrounding the proximal bypass. 2. Anasarca. Ryan Nugent Jr., MD Objective Remarks General: Obese elderly female in no acute distress. Heart: Regular rate and rhythm. No murmur. Lungs: Clear to auscultation bilaterally. No wheezes, rales, or rhonchi. Breathing is nonlabored. Abdomen: Soft, nontender, nondistended. Extremities: 2+ bilateral lower extremity edema. Psych: Alert and oriented. Neuro: Normal speech. No focal deficits noted. Procedures 10/07/17 debridement of left groin wound Urinary Catheter: No Vascular Central Line Catheter: No A/P Assessment and Plan 1. Infected left groin hematoma, cellulitis left groin: Continue IV antibiotics per infectious disease recommendations. Wound culture growing Klebsiella pneumonia multidrug resistant, and VRE. Management per vascular surgery. Patient will likely need further surgical debridement on Tuesday. 2. Coronary artery disease: Status post CABG 3 vessels. No cardiovascular complaints at this time. Continue current medications. 3. Chronic systolic congestive heart failure: Not in acute exacerbation. Continue beta-murphy. Monitor for fluid overload. 4. End-stage renal disease: Hemodialysis Tuesday/Tuesday/Tuesday. Appreciate nephrology management. 5. Diabetes mellitus: Continue Levemir. Monitor Accu-Cheks and cover with sliding scale insulin. 6. History of CVA: Continue Plavix, statin. 7. Left great toe wound: Appreciate podiatry recommendations. Continue wound care. Offloading heel raiser boots. 8. Hypothyroidism: Continue Synthroid. 9. DVT prophylaxis: Lovenox. 10. Diarrhea: Continue Lactinex. Check stool for C. difficile. Discharge Planning Plan is for discharge to [place] when cleared by vascular surgery, infectious disease. Alex Hanley MD October 14, 2017 15:19
[2017-10-14 17:47] VITALS: BP 126/56; PULSE 67; RESP 20; TEMP 97.7; O2SAT 96
[2017-10-14] MEDS: MEROPENEM INJ 500 MG in SODIUM CHLORIDE 0.9% INJ 100 ML IV SCH (17:52)
[2017-10-14] MEDS: MICAFUNGIN INJ 100 MG in SODIUM CHLORIDE 0.9% INJ 100 ML IV SCH (17:52)
[2017-10-14] MEDS: CINACALCET HYDROCHLORIDE 30 MG TAB PO SCH (18:04)
[2017-10-14 20:00] VITALS: BP 133/63; PULSE 70; RESP 18; TEMP 97.2; O2SAT 96
[2017-10-14] MEDS: ATORVASTATIN 40 MG TAB PO SCH (21:25)
[2017-10-14] MEDS: ENOXAPARIN SODIUM 30 MG/0.3 ML SYRINGE SQ SCH (21:25)
[2017-10-15] VITALS: BP 135/60; PULSE 69; RESP 18; O2SAT 95
[2017-10-15] MEDS: LINEZOLID 600 MG PREMIX 300 ML IV SCH ×2 (05:22→17:19)
[2017-10-15] MEDS: LEVOTHYROXINE SODIUM 125 MCG TAB PO SCH (05:24)
[2017-10-15] MEDS: metroNIDAZOLE 500 MG TAB PO SCH ×3 (05:24→21:15)
[2017-10-15 05:42] LABS: HEMATOCRIT 34.3 % (35.0-46.0); MEAN CELL VOLUME 95.9 FL (80.0-100.0); MEAN CORPUSCULAR HEMOGLOBIN 30.8 PG (27.0-34.0); MEAN CORPUSCULAR HGB CONC 32.1 % (32.0-36.0); MEAN PLATELET VOLUME 7.7 FL (7.0-11.0); PLATELET COUNT 210 TH/MM3 (150-450); RED BLOOD COUNT 3.58 MIL/MM3 (4.00-5.30); WHITE BLOOD COUNT 7.4 TH/MM3 (4.0-11.0)
[2017-10-15 06:17] LABS: ALBUMIN 2.7 GM/DL (3.4-5.0); BICARBONATE 28.6 MEQ/L (21.0-32.0); CREATININE 3.9 MG/DL (0.50-1.00); PHOSPHORUS 3.5 MG/DL (2.5-4.9)
[2017-10-15 08:00] VITALS: BP 175/70; PULSE 65; RESP 17; TEMP 97.9; O2SAT 95
[2017-10-15] MEDS: ONDANSETRON ODT 4 MG TAB PO PRN (08:23)
[2017-10-15] MEDS: MEDIUM DOSE INSULIN NOVOLOG SUPPLEMENTAL SCALE SQ SCH ×4 (08:24→20:07)
[2017-10-15] MEDS: INSULIN DETEMIR 100 UNITS/ML VIAL SQ SCH ×2 (08:24→20:07)
[2017-10-15] MEDS: Hickman Catheter Daily NS Lock Flush IV FLUSH SCH (08:27)
[2017-10-15] MEDS: SODIUM CHLORIDE 0.9% FLUSH 10 ML FLUSH IV FLUSH SCH ×2 (08:27→20:08)
[2017-10-15] MEDS: EZETIMIBE 10 MG TAB PO SCH (09:00)
[2017-10-15] MEDS: CHOLECALCIFEROL (VIT D3) 1000 UNIT TAB PO SCH (09:00)
[2017-10-15] MEDS: DOCUSATE SODIUM 50 MG/SENNA 8.6 MG TAB PO SCH ×2 (09:00→20:08)
[2017-10-15] MEDS: LACTOBACILLUS ACIDOPHILUS TAB PO SCH ×3 (09:50→16:32)
[2017-10-15] MEDS: CLOPIDOGREL 75 MG TAB PO SCH (09:50)
[2017-10-15] MEDS: GABAPENTIN 100 MG CAP PO SCH ×3 (09:50→16:33)
[2017-10-15] MEDS: FAMOTIDINE 20 MG TAB PO SCH ×2 (09:51→20:08)
[2017-10-15] MEDS: CARVEDILOL 6.25 MG TAB PO SCH ×2 (09:51→20:08)
[2017-10-15] MEDS: SEVELAMER CARBONATE 800 MG TAB PO SCH ×3 (09:51→17:17)
[2017-10-15] MEDS: MICAFUNGIN INJ 100 MG in SODIUM CHLORIDE 0.9% INJ 100 ML IV SCH (11:55)
[2017-10-15 12:00] VITALS: BP 138/63; PULSE 65; RESP 16; TEMP 97.9; O2SAT 96
--- NOTE | 2017-10-15 14:36 | HHI.PR ---
Subjective Remarks Follow up diarrhea, groin wound, diabetes. Patient reports ongoing diarrhea. No nausea/vomiting. No chest pain, dyspnea. Right heel is more painful today. Objective Vitals Vital Signs Date Time Temp Pulse Resp B/P (MAP) Pulse Ox O2 Delivery O2 Flow Rate FiO2 10/15/17 12:00 97.9 65 16 138/63 (88) 96 10/15/17 08:00 97.9 65 17 175/70 (105) 95 10/15/17 00:00 69 18 135/60 (85) 95 10/14/17 20:00 97.2 70 18 133/63 (86) 96 10/14/17 17:47 97.7 67 20 126/56 (79) 96 I/O 10/14/17 10/14/17 10/14/17 10/15/17 10/15/17 10/15/17 07:00 15:00 23:00 07:00 15:00 23:00 Intake Total 300 ml 500 ml 560 ml Output Total 4500 ml Balance 300 ml -4000 ml 560 ml Intake Oral 560 ml IV Total 300 ml 500 ml Hemodialysis 4500 ml # Voids 1 1 1 # Bowel Movements 1 2 1 Result Diagram: 10/15/17 0526 10/15/17 0526 Imaging Last Impressions Pelvis CT 10/07/17 0000 Signed Impressions: Service Date/Time: Saturday, October 07, 2017 21:04 - CONCLUSION: 1. Large soft tissue defect involving the left groin which does not reach the bypass. Intact soft tissue is noted surrounding the bypass. There is a small amount of circumferential fluid surrounding the proximal bypass. 2. Anasarca. Ryan Nugent Jr., MD Objective Remarks General: Obese elderly female in no acute distress. Heart: Regular rate and rhythm. No murmur. Lungs: Clear to auscultation bilaterally. No wheezes, rales, or rhonchi. Breathing is nonlabored. Abdomen: Soft, nontender, nondistended. Extremities: 2+ bilateral lower extremity edema. Feet in soft boots. Psych: Alert and oriented. Neuro: Normal speech. No focal deficits noted. Procedures 10/07/17 debridement of left groin wound Urinary Catheter: No Vascular Central Line Catheter: No A/P Assessment and Plan 1. Infected left groin hematoma, cellulitis left groin: Continue IV antibiotics per infectious disease recommendations. Wound culture growing Klebsiella pneumonia multidrug resistant, and VRE. Management per vascular surgery. Patient will likely need further surgical debridement on Tuesday. 2. Coronary artery disease: Status post CABG 3 vessels. No cardiovascular complaints at this time. Continue current medications. 3. Chronic systolic congestive heart failure: Not in acute exacerbation. Continue beta-murphy. Monitor for fluid overload. 4. End-stage renal disease: Hemodialysis Tuesday/Tuesday/Tuesday. Appreciate nephrology management. 5. Diabetes mellitus: Continue Levemir. Monitor Accu-Cheks and cover with sliding scale insulin. 6. History of CVA: Continue Plavix, statin. 7. Left great toe wound, right heel wound: Appreciate podiatry recommendations. Continue wound care. Offloading heel raiser boots. 8. Hypothyroidism: Continue Synthroid. 9. DVT prophylaxis: Lovenox. 10. Diarrhea: Continue Lactinex. C. difficile negative. Imodium as needed. Discharge Planning Plan is for discharge to [place] when cleared by vascular surgery, infectious disease. Alex Hanley MD October 15, 2017 14:36
[2017-10-15] MEDS: LOPERAMIDE HCL 2 MG CAP PO PRN ×2 (15:49→20:08)
[2017-10-15] MEDS: MEROPENEM INJ 500 MG in SODIUM CHLORIDE 0.9% INJ 100 ML IV SCH (15:50)
[2017-10-15 16:00] VITALS: BP 143/65; PULSE 63; RESP 16; TEMP 97.3; O2SAT 95
[2017-10-15] MEDS: CINACALCET HYDROCHLORIDE 30 MG TAB PO SCH (16:32)
[2017-10-15] MEDS: ACETAMINOPHEN/HYDROcodone 325 MG/5 MG TAB PO PRN ×2 (17:17→21:15)
[2017-10-15 20:00] VITALS: BP 140/66; PULSE 70; RESP 18; TEMP 97.5; O2SAT 95
[2017-10-15] MEDS: ATORVASTATIN 40 MG TAB PO SCH (20:07)
[2017-10-15] MEDS: ENOXAPARIN SODIUM 30 MG/0.3 ML SYRINGE SQ SCH (20:08)
[2017-10-16] VITALS: BP 131/62; PULSE 68; RESP 17; TEMP 97; O2SAT 95
[2017-10-16] MEDS: metroNIDAZOLE 500 MG TAB PO SCH ×3 (05:43→22:31)
[2017-10-16] MEDS: LEVOTHYROXINE SODIUM 125 MCG TAB PO SCH (05:43)
[2017-10-16] MEDS: LINEZOLID 600 MG PREMIX 300 ML IV SCH ×2 (06:11→18:07)
[2017-10-16 08:00] VITALS: BP 146/65; PULSE 64; RESP 16; TEMP 98.2; O2SAT 96
[2017-10-16] MEDS: MEDIUM DOSE INSULIN NOVOLOG SUPPLEMENTAL SCALE SQ SCH ×4 (08:00→21:00)
[2017-10-16] MEDS: CLOPIDOGREL 75 MG TAB PO SCH (08:23)
[2017-10-16] MEDS: CARVEDILOL 6.25 MG TAB PO SCH ×2 (08:23→22:31)
[2017-10-16] MEDS: GABAPENTIN 100 MG CAP PO SCH ×3 (08:23→18:00)
[2017-10-16] MEDS: INSULIN DETEMIR 100 UNITS/ML VIAL SQ SCH ×2 (08:24→22:33)
[2017-10-16] MEDS: CHOLECALCIFEROL (VIT D3) 1000 UNIT TAB PO SCH (08:24)
[2017-10-16] MEDS: FAMOTIDINE 20 MG TAB PO SCH ×2 (08:24→22:31)
[2017-10-16] MEDS: LACTOBACILLUS ACIDOPHILUS TAB PO SCH ×3 (08:37→18:00)
[2017-10-16] MEDS: SEVELAMER CARBONATE 800 MG TAB PO SCH ×3 (08:37→18:01)
[2017-10-16] MEDS: EZETIMIBE 10 MG TAB PO SCH (08:38)
[2017-10-16] MEDS: ACETAMINOPHEN/HYDROcodone 325 MG/5 MG TAB PO PRN ×3 (08:38→18:48)
[2017-10-16] MEDS: DOCUSATE SODIUM 50 MG/SENNA 8.6 MG TAB PO SCH ×2 (08:43→22:31)
[2017-10-16] MEDS: SODIUM CHLORIDE 0.9% FLUSH 10 ML FLUSH IV FLUSH SCH ×2 (08:43→22:32)
[2017-10-16] MEDS: Hickman Catheter Daily NS Lock Flush IV FLUSH SCH (08:43)
[2017-10-16] MEDS: LOPERAMIDE HCL 2 MG CAP PO PRN (11:38)
[2017-10-16 12:00] VITALS: BP 129/61; PULSE 65; RESP 16; TEMP 97.4; O2SAT 95
[2017-10-16] MEDS: MICAFUNGIN INJ 100 MG in SODIUM CHLORIDE 0.9% INJ 100 ML IV SCH (13:02)
--- NOTE | 2017-10-16 14:33 | HHI.PR ---
Subjective Remarks Follow up diarrhea, groin wound, diabetes. Stools are more formed today. Denies chest pain, dyspnea. Less right heel pain today. Objective Vitals Vital Signs Date Time Temp Pulse Resp B/P (MAP) Pulse Ox O2 Delivery O2 Flow Rate FiO2 10/16/17 12:00 97.4 65 16 129/61 (83) 95 10/16/17 08:00 98.2 64 16 146/65 (92) 96 10/16/17 00:00 97.0 68 17 131/62 (85) 95 10/15/17 20:00 97.5 70 18 140/66 (90) 95 10/15/17 18:46 16 10/15/17 16:00 97.3 63 16 143/65 (91) 95 I/O 10/15/17 10/15/17 10/15/17 10/16/17 10/16/17 10/16/17 06:59 14:59 22:59 06:59 14:59 22:59 Intake Total 560 ml 1490 ml 240 ml Balance 560 ml 1490 ml 240 ml Intake Oral 560 ml 990 ml 240 ml IV Total 500 ml # Voids 1 1 2 # Bowel Movements 1 3 Result Diagram: 10/15/17 0526 10/15/17 0526 Imaging Last Impressions Pelvis CT 10/07/17 0000 Signed Impressions: Service Date/Time: Saturday, October 07, 2017 21:04 - CONCLUSION: 1. Large soft tissue defect involving the left groin which does not reach the bypass. Intact soft tissue is noted surrounding the bypass. There is a small amount of circumferential fluid surrounding the proximal bypass. 2. Anasarca. Ryna Nugent Jr., MD Objective Remarks General: Obese elderly female in no acute distress. Heart: Regular rate and rhythm. No murmur. Lungs: Clear to auscultation bilaterally. No wheezes, rales, or rhonchi. Breathing is nonlabored. Abdomen: Soft, nontender, nondistended. Extremities: 2+ bilateral lower extremity edema. Feet in soft boots. Psych: Alert and oriented. Neuro: Normal speech. No focal deficits noted. Procedures 10/07/17 debridement of left groin wound Urinary Catheter: No Vascular Central Line Catheter: No A/P Assessment and Plan 1. Infected left groin hematoma, cellulitis left groin: Continue IV antibiotics per infectious disease recommendations. Wound culture growing Klebsiella pneumonia multidrug resistant, and VRE. Management per vascular surgery. Patient will likely need further surgical debridement tomorrow. 2. Coronary artery disease: Status post CABG 3 vessels. No cardiovascular complaints at this time. Continue current medications. 3. Chronic systolic congestive heart failure: Not in acute exacerbation. Continue beta-murphy. Monitor for fluid overload. 4. End-stage renal disease: Hemodialysis Tuesday/Tuesday/Tuesday. Appreciate nephrology management. 5. Diabetes mellitus: Continue Levemir. Monitor Accu-Cheks and cover with sliding scale insulin. 6. History of CVA: Continue Plavix, statin. 7. Left great toe wound, right heel wound: Appreciate podiatry recommendations. Continue wound care. Offloading heel raiser boots. 8. Hypothyroidism: Continue Synthroid. 9. DVT prophylaxis: Lovenox. 10. Diarrhea: Continue Lactinex. C. difficile negative. Imodium as needed. Discharge Planning Plan is for discharge to [place] when cleared by vascular surgery, infectious disease. Alex Hanley MD October 16, 2017 14:33
[2017-10-16 16:00] VITALS: BP 137/62; PULSE 61; RESP 16; TEMP 97.1; O2SAT 97
[2017-10-16] MEDS: CINACALCET HYDROCHLORIDE 30 MG TAB PO SCH (18:00)
[2017-10-16] MEDS: MEROPENEM INJ 500 MG in SODIUM CHLORIDE 0.9% INJ 100 ML IV SCH (18:02)
[2017-10-16 20:00] VITALS: BP 146/64; PULSE 64; RESP 18; TEMP 98.1; O2SAT 97
[2017-10-16] MEDS: ATORVASTATIN 40 MG TAB PO SCH (22:31)
[2017-10-16] MEDS: ENOXAPARIN SODIUM 30 MG/0.3 ML SYRINGE SQ SCH (22:32)
[2017-10-17] VITALS: BP 128/61; PULSE 68; RESP 17; TEMP 97.2; O2SAT 98
[2017-10-17] MEDS: ONDANSETRON HCL 4 MG/2 ML VIAL IV PUSH PRN ×2 (00:57→04:50)
[2017-10-17] MEDS: ACETAMINOPHEN/HYDROcodone 325 MG/5 MG TAB PO PRN ×3 (00:59→20:57)
[2017-10-17] MEDS: metroNIDAZOLE 500 MG TAB PO SCH ×3 (04:50→20:59)
[2017-10-17] MEDS: LEVOTHYROXINE SODIUM 125 MCG TAB PO SCH (04:50)
[2017-10-17] MEDS: LINEZOLID 600 MG PREMIX 300 ML IV SCH ×2 (04:50→16:10)
[2017-10-17 06:55] LABS: AUTOMATED NEUTROPHIL # 5.2 TH/MM3 (1.8-7.7); BASOPHIL # 0.1 TH/MM3 (0-0.2); BASOPHIL % 1.1 % (0.0-2.0); EOSINOPHIL # 0.2 TH/MM3 (0-0.4); EOSINOPHIL % 2.1 % (0.0-4.0); HEMATOCRIT 36.8 % (35.0-46.0); HEMOGLOBIN 11.8 GM/DL (11.6-15.3); LYMPH % 23.1 % (9.0-44.0); LYMPHOCYTE # 1.9 TH/MM3 (1.0-4.8); MEAN CELL VOLUME 96.2 FL (80.0-100.0); MEAN CORPUSCULAR HEMOGLOBIN 30.8 PG (27.0-34.0); MEAN CORPUSCULAR HGB CONC 32.1 % (32.0-36.0); MEAN PLATELET VOLUME 7.7 FL (7.0-11.0); MONO % 9.8 % (0.0-8.0); MONOCYTE # 0.8 TH/MM3 (0-0.9); NEUT % 63.9 % (16.0-70.0); PLATELET COUNT 185 TH/MM3 (150-450); RED BLOOD COUNT 3.83 MIL/MM3 (4.00-5.30); RED CELL DISTRIBUTION WIDTH 20.3 % (11.6-17.2); WHITE BLOOD COUNT 8.1 TH/MM3 (4.0-11.0)
[2017-10-17 07:41] LABS: BICARBONATE 26.1 MEQ/L (21.0-32.0); CALCIUM 8.1 MG/DL (8.5-10.1); CREATININE 5.29 MG/DL (0.50-1.00)
[2017-10-17 08:00] VITALS: BP 147/74; PULSE 70; RESP 18; TEMP 98.4; O2SAT 95
[2017-10-17] MEDS: MEDIUM DOSE INSULIN NOVOLOG SUPPLEMENTAL SCALE SQ SCH ×4 (08:00→20:57)
[2017-10-17] MEDS: INSULIN DETEMIR 100 UNITS/ML VIAL SQ SCH ×2 (08:18→20:58)
[2017-10-17] MEDS: GABAPENTIN 100 MG CAP PO SCH ×3 (08:19→16:07)
[2017-10-17] MEDS: CARVEDILOL 6.25 MG TAB PO SCH ×2 (08:19→21:00)
[2017-10-17] MEDS: EZETIMIBE 10 MG TAB PO SCH (08:20)
[2017-10-17] MEDS: SEVELAMER CARBONATE 800 MG TAB PO SCH ×3 (08:20→16:06)
[2017-10-17] MEDS: LACTOBACILLUS ACIDOPHILUS TAB PO SCH ×3 (08:20→16:07)
[2017-10-17] MEDS: FAMOTIDINE 20 MG TAB PO SCH ×2 (08:20→20:59)
[2017-10-17] MEDS: CLOPIDOGREL 75 MG TAB PO SCH (08:20)
[2017-10-17] MEDS: CHOLECALCIFEROL (VIT D3) 1000 UNIT TAB PO SCH (08:21)
[2017-10-17] MEDS: DOCUSATE SODIUM 50 MG/SENNA 8.6 MG TAB PO SCH ×2 (08:21→21:00)
[2017-10-17] MEDS: Hickman Catheter Daily NS Lock Flush IV FLUSH SCH (08:25)
[2017-10-17] MEDS: SODIUM CHLORIDE 0.9% FLUSH 10 ML FLUSH IV FLUSH SCH ×2 (08:25→21:00)
--- NOTE | 2017-10-17 10:57 | HHI.NPPN ---
Subjective History of Present Illness This patient is a 72-year-old female with a history of multiple medical problems including diabetes mellitus, hypertension, end-stage renal disease, anemia renal disease and peripheral vascular disease now recently status post left femoropopliteal bypass after developing subacute occlusion. Patient recently admitted with hematoma/infection complicating the femoropopliteal bypass. She has been in [facility] since 09/24, but had to have debridement of L groin hematoma this AM. Interval History Patient complaining of edema. Otherwise no verbal complaints. Review of Systems General General Remarks No specific complaints Objective Data Data Vital Signs Date Time Temp Pulse Resp B/P (MAP) Pulse Ox O2 Delivery O2 Flow Rate FiO2 10/17/17 08:00 98.4 70 18 147/74 (98) 95 10/17/17 00:00 97.2 68 17 128/61 (83) 98 10/16/17 20:00 98.1 64 18 146/64 (91) 97 10/16/17 16:00 97.1 61 16 137/62 (87) 97 10/16/17 12:00 97.4 65 16 129/61 (83) 95 -: 10/17/17 0600 10/17/17 0600 Physical Exam General Appearance: Well Developed, No Acute Distress, Comfortable Eyes Eye Exam: Sclera White Pulmonary Resp Exam: Clear Bilaterally, Breath Sounds Equal, No Distress Cardiology CV Exam: Regular, Normal Sinus Rhythm Gastrointestinal/Abdomen GI Exam: Soft, Non-Tender Integumentary Skin Exam: Clear, Warm Extremeties Extremities Exam: Moderate Edema (generalized) Neurologic Neuro Exam: Alert, Awake Assessment/Plan Discussed Condition With: Patient Problem List: (1) ESRD (end stage renal disease) on dialysis ICD Codes: N18.6 - End stage renal disease; Z99.2 - Dependence on renal dialysis Status: Chronic Plan: Patient has marked fluid retention. We have ordered extra dialysis sessions to try and improve her volume status with the patient initially saying that she would do these treatments subsequently refused to have them done. I advised her that there is a limit to how much fluid we can ultrafiltrate off each dialysis session and we do need these extra treatments to try and improve her volume status which may also help in wound healing by reducing her edema. She again indicated to me that she is agreeable to have an extra dialysis session tomorrow and I advised the dialysis nurses of this. Hemodialysis tomorrow and subsequently Tuesday. Continue Renvela for hyperphosphatemia. Encouraged to eat more protein. Will order Nepro as supplement. Medications should be adjusted for the patient's ESRD. Avoid gadolinium (2) Hematoma of groin ICD Codes: S30.1XXA - Contusion of abdominal wall, initial encounter Status: Acute Plan: s/p debridement 10/08 Wound cx Rosa, VRE, and Kleb. Now on Micafungin, Flagyl, and Zyvox (3) Peripheral vascular disease ICD Codes: I73.9 - Peripheral vascular disease, unspecified Status: Acute (4) Anemia of renal disease ICD Codes: D63.1 - Anemia in chronic kidney disease Status: Chronic Plan: CBC in the AM Fe stores mildly low but will hold off on Venofer given infection. Epogen with HD (5) Diabetes mellitus type 2 with complications ICD Codes: E11.8 - Type 2 diabetes mellitus with unspecified complications Status: Chronic Plan: Mgmt as per primary (6) Secondary hyperparathyroidism of renal origin ICD Codes: N25.81 - Secondary hyperparathyroidism of renal origin Plan: Continue Sensipar and Ergocalciferol as before. (7) Hypertension ICD Codes: I10 - Essential (primary) hypertension Status: Acute Kimberly Sampson MD October 17, 2017 10:57
[2017-10-17] MEDS: EPOETIN ALFA 10,000 UNITS/ML VIAL IV PUSH PRN (12:46)
[2017-10-17] MEDS: MICAFUNGIN INJ 100 MG in SODIUM CHLORIDE 0.9% INJ 100 ML IV SCH (13:37)
--- NOTE | 2017-10-17 13:49 | HHI.PR ---
Subjective Remarks Follow up wound, ESRD, diabetes. Patient just returned from dialysis. Had mild nausea this morning. She is hungry. Objective Vitals Vital Signs Date Time Temp Pulse Resp B/P (MAP) Pulse Ox O2 Delivery O2 Flow Rate FiO2 10/17/17 08:00 98.4 70 18 147/74 (98) 95 10/17/17 00:00 97.2 68 17 128/61 (83) 98 10/16/17 20:00 98.1 64 18 146/64 (91) 97 10/16/17 16:00 97.1 61 16 137/62 (87) 97 I/O 10/16/17 10/16/17 10/16/17 10/17/17 10/17/17 10/17/17 07:00 15:00 23:00 07:00 15:00 23:00 Intake Total 240 ml 220 ml 0 ml Output Total 100 ml 4000 ml Balance 240 ml 120 ml 0 ml -4000 ml Intake Oral 240 ml 220 ml 0 ml Output Urine Total 100 ml Hemodialysis 4000 ml # Voids 2 2 # Bowel Movements 2 Result Diagram: 10/17/17 0600 10/17/17 0600 Imaging Last Impressions Pelvis CT 10/07/17 0000 Signed Impressions: Service Date/Time: Saturday, October 07, 2017 21:04 - CONCLUSION: 1. Large soft tissue defect involving the left groin which does not reach the bypass. Intact soft tissue is noted surrounding the bypass. There is a small amount of circumferential fluid surrounding the proximal bypass. 2. Anasarca. Ryan Nugent Jr., MD Objective Remarks General: Obese elderly female in no acute distress. Heart: Regular rate and rhythm. No murmur. Lungs: Clear to auscultation bilaterally. No wheezes, rales, or rhonchi. Breathing is nonlabored. Abdomen: Soft, nontender, nondistended. Extremities: 2+ bilateral lower extremity edema. Feet in soft boots. Psych: Alert and oriented. Neuro: Normal speech. No focal deficits noted. Procedures 10/07/17 debridement of left groin wound Urinary Catheter: No Vascular Central Line Catheter: No A/P Assessment and Plan 1. Infected left groin hematoma, cellulitis left groin: Continue IV antibiotics per infectious disease recommendations. Wound culture growing Klebsiella pneumonia multidrug resistant, and VRE. Management per vascular surgery. No further surgical intervention planned at this time. 2. Coronary artery disease: Status post CABG 3 vessels. No cardiovascular complaints at this time. Continue current medications. 3. Chronic systolic congestive heart failure: Not in acute exacerbation. Continue beta-murphy. Monitor for fluid overload. 4. End-stage renal disease: Hemodialysis Tuesday/Tuesday/Tuesday. Appreciate nephrology management. Will received extra dialysis tomorrow. 5. Diabetes mellitus: Continue Levemir. Monitor Accu-Cheks and cover with sliding scale insulin. 6. History of CVA: Continue Plavix, statin. 7. Left great toe wound, right heel wound: Appreciate podiatry recommendations. Continue wound care. Offloading heel raiser boots. 8. Hypothyroidism: Continue Synthroid. 9. DVT prophylaxis: Lovenox. 10. Diarrhea: Continue Lactinex. C. difficile negative. Imodium as needed. Discharge Planning Probable discharge to [place] inpatient rehab tomorrow. Alex Hanley MD October 17, 2017 13:49
--- NOTE | 2017-10-17 15:11 | HHI.IDPN ---
Note Infectious Disease Note Patient feels okay. No complaints. Little pain in the left groin. No Chills. Ambulates in the room. Afebrile. Left groin wound culture has VRE, Klebsiella multi drug resistant and Rosa. Pathology evaluation shows adipose tissue with marked acute inflammation and necrosis PAST MEDICAL HISTORY: Diabetes mellitus, hypertension, peripheral vascular disease, hyperlipidemia, coronary artery disease, end-stage renal disease treated with hemodialysis. Left femoral artery bypass surgery on 08/30/2017 with graft. ALLERGIES: AMLODIPINE, ADHESIVE TAPE. ANTIBIOTICS: Linezolid. Micafungin. Meropenem. Flagyl. MEDICATIONS: Current Medications Medications (Trade) Dose Ordered Sig/Julius Route PRN Reason Start Time Stop Time Status Last Admin Dose Admin Sodium Chloride (NS Flush) 5 ml DAILY IV FLUSH 10/08/17 09:00 10/17/17 08:25 Heparin Sodium (Porcine) (Heparin Central Flush) 500 units DAILY IV FLUSH 10/08/17 09:00 10/17/17 08:19 Sodium Chloride (NS Flush) 5 ml UNSCH PRN IV FLUSH SEE PROTOCOL TABLE 10/07/17 13:15 10/07/17 13:20 Heparin Sodium (Porcine) (Heparin Central Flush) 500 units UNSCH PRN IV FLUSH SEE PROTOCOL TABLE 10/07/17 13:15 Sodium Chloride (NS Flush) 2 ml UNSCH PRN IV FLUSH FLUSH AFTER USING IV ACCESS 10/07/17 15:30 Sodium Chloride (NS Flush) 2 ml BID IV FLUSH 10/07/17 21:00 10/17/17 08:25 Acetaminophen (Tylenol) 650 mg Q4H PRN PO TEMP > 100.4 10/07/17 16:00 Naloxone HCl (Narcan Inj) 0.4 mg UNSCH PRN IV PUSH SEE LABEL COMMENTS 10/07/17 16:00 Magnesium Hydroxide (Milk Of Magnesia Liq) 30 ml Q12H PRN PO Mild constipation 10/07/17 15:30 Sennosides (Senokot) 17.2 mg Q12H PRN PO Moderate constipation 10/07/17 15:30 Bisacodyl (Dulcolax Supp) 10 mg DAILY PRN RECTAL SEVERE CONSITIPATION 10/07/17 16:00 Lactulose (Lactulose Liq) 30 ml DAILY PRN PO SEVERE CONSITIPATION 10/07/17 15:30 Enoxaparin Sodium (Lovenox Inj) 30 mg Q24H SQ 10/07/17 20:00 10/16/17 22:32 Acetaminophen/ Hydrocodone Bitart ([place] 5-325 Mg) 1 tab Q4H PRN PO pain 2-10 10/07/17 15:45 10/17/17 00:59 Carvedilol (Coreg) 6.25 mg BID PO 10/07/17 21:00 10/17/17 08:19 Cholecalciferol (Vitamin D3) 1,000 units DAILY PO 10/08/17 09:00 10/16/17 08:24 Clopidogrel Bisulfate (Plavix) 75 mg DAILY PO 10/08/17 09:00 10/17/17 08:20 Famotidine (Pepcid) 10 mg BID PO 10/07/17 21:00 10/17/17 08:20 Gabapentin (Neurontin) 200 mg TID PO 10/07/17 18:00 10/17/17 08:19 Insulin Detemir (Levemir Inj) 17 units HS SQ 10/07/17 21:00 10/16/17 22:33 Insulin Detemir (Levemir Inj) 20 units DAILY SQ 10/08/17 09:00 10/17/17 08:18 Lactobacillus Acidophilus (Lactinex) 1 tab TID PO 10/07/17 18:00 10/17/17 08:20 Levothyroxine Sodium (Synthroid) 125 mcg DAILY@0600 PO 10/08/17 06:00 10/17/17 04:50 Nitroglycerin (Nitrostat Sl) 0.4 mg Q5M PRN SL CHEST PAIN 10/07/17 15:45 Senna/Docusate Sodium (Lucinda-Colace) 1 tab BID PO 10/07/17 21:00 10/16/17 22:31 Sevelamer Carbonate (Renvela) 800 mg TID PO 10/07/17 18:00 10/17/17 08:20 Ondansetron HCl (Zofran Odt) 4 mg Q6H PRN PO NAUSEA OR VOMITING 10/07/17 15:45 10/15/17 08:23 EZETIMIBE (Zetia) 10 mg DAILY PO 10/08/17 09:00 10/17/17 08:20 Atorvastatin Calcium (Lipitor) 40 mg HS PO 10/07/17 21:00 10/16/17 22:31 Cinacalcet (Sensipar) 60 mg WITH DINNER PO 10/07/17 18:00 10/16/17 18:00 Sodium Chloride 1,000 ml @ 0 mls/hr Q0M PRN OTHER For Prime & Rinse Back 10/07/17 16:53 Heparin Sodium (Porcine) (Heparin Inj) 8,000 units UNSCH PRN IV FLUSH WITH DIALYSIS 10/07/17 17:00 Sodium Chloride 1,000 ml @ 200 mls/hr Q5H PRN IV WITH DIALYSIS 10/07/17 16:53 10/08/17 11:39 Sodium Chloride 1,000 ml @ 0 mls/hr Q0M PRN OTHER WITH DIALYSIS 10/07/17 16:53 Mannitol (Mannitol Inj) 12.5 gm UNSCH PRN IV WITH DIALYSIS 10/07/17 17:00 Albumin Human 100 ml @ 60 mls/hr UNSCH PRN IV WITH DIALYSIS 10/07/17 17:00 10/12/17 09:16 Sodium Chloride (NS Flush) 5 ml UNSCH PRN IV FLUSH WITH DIALYSIS 10/07/17 17:00 Heparin Sodium (Porcine) (Heparin Inj) UNSCH PRN .XX WITH DIALYSIS 10/07/17 17:00 10/08/17 11:39 Gentamicin Sulfate (Gentamicin Inj) 20 mg UNSCH PRN OTHER WITH DIALYSIS 10/07/17 17:00 10/08/17 11:40 Ondansetron HCl (Zofran Inj) 4 mg UNSCH PRN IV PUSH WITH DIALYSIS 10/07/17 17:00 10/17/17 04:50 Acetaminophen (Tylenol) 650 mg UNSCH PRN PO for headach, pain, temp > 101F 10/07/17 17:00 Diphenhydramine HCl (Benadryl) 25 mg UNSCH PRN PO for hives/itching/anaphylaxis 10/07/17 17:00 Nitroglycerin (Nitrostat Sl) 0.4 mg UNSCH PRN SL CHEST PAIN 10/07/17 17:00 Clonidine (Catapres) 0.1 mg UNSCH PRN PO for BP > 180/100 X 2 readings 10/07/17 17:00 Epoetin Dio (Epogen Inj) 8,000 units UNSCH PRN IV PUSH WITH DIALYSIS 10/07/17 17:00 10/17/17 12:46 Gelatin (Gelfoam 12 Mm/7 Mm Top) 1 foam UNSCH PRN TOP SEE LABEL COMMENTS 10/07/17 17:00 10/12/17 09:16 Ergocalciferol (Drisdol) 50,000 units Q14D PO 10/07/17 18:00 10/07/17 18:49 Meropenem 500 mg/ Sodium Chloride 100 ml @ 200 mls/hr Q24H IV 10/08/17 16:00 10/16/17 18:02 Metronidazole (Flagyl) 500 mg Q8HR PO 10/08/17 22:00 10/17/17 13:37 Dextrose (D50w (Vial) Inj) 50 ml UNSCH PRN IV PUSH HYPOGLYCEMIA - SEE COMMENTS 10/09/17 16:45 Glucagon (Glucagon Inj) 1 mg UNSCH PRN OTHER HYPOGLYCEMIA-SEE COMMENTS 10/09/17 16:45 Insulin Aspart (NovoLOG SUPPLEMENTAL SCALE) 1 ACHS SLIDING SCALE SQ 10/09/17 17:00 10/17/17 08:00 Linezolid 300 ml @ 300 mls/hr Q12H IV 10/10/17 18:00 10/17/17 04:50 Morphine Sulfate (Morphine Inj) 2 mg Q4H PRN IV PUSH breakthrough pain 10/13/17 03:30 10/13/17 03:44 Micafungin Sodium 100 mg/Sodium Chloride 100 ml @ 100 mls/hr Q24H IV 10/13/17 14:00 10/17/17 13:37 Loperamide HCl (Imodium) 2 mg Q4H PRN PO DIARRHEA 10/15/17 14:45 10/16/17 11:38 OBJECTIVE: Vital Signs Date Time Temp Pulse Resp B/P (MAP) Pulse Ox O2 Delivery O2 Flow Rate FiO2 10/17/17 08:00 98.4 70 18 147/74 (98) 95 10/17/17 00:00 97.2 68 17 128/61 (83) 98 10/16/17 20:00 98.1 64 18 146/64 (91) 97 10/16/17 16:00 97.1 61 16 137/62 (87) 97 Laboratory Tests Test 10/17/17 06:00 White Blood Count 8.1 TH/MM3 Red Blood Count 3.83 MIL/MM3 Hemoglobin 11.8 GM/DL Hematocrit 36.8 % Mean Corpuscular Volume 96.2 FL Mean Corpuscular Hemoglobin 30.8 PG Mean Corpuscular Hemoglobin Concent 32.1 % Red Cell Distribution Width 20.3 % Platelet Count 185 TH/MM3 Mean Platelet Volume 7.7 FL Neutrophils (%) (Auto) 63.9 % Lymphocytes (%) (Auto) 23.1 % Monocytes (%) (Auto) 9.8 % Eosinophils (%) (Auto) 2.1 % Basophils (%) (Auto) 1.1 % Neutrophils # (Auto) 5.2 TH/MM3 Lymphocytes # (Auto) 1.9 TH/MM3 Monocytes # (Auto) 0.8 TH/MM3 Eosinophils # (Auto) 0.2 TH/MM3 Basophils # (Auto) 0.1 TH/MM3 CBC Comment DIFF FINAL Differential Comment Laboratory Tests Test 10/17/17 06:00 Blood Urea Nitrogen 40 MG/DL Creatinine 5.29 MG/DL Random Glucose 147 MG/DL Calcium Level 8.1 MG/DL Sodium Level 130 MEQ/L Potassium Level 4.5 MEQ/L Chloride Level 89 MEQ/L Carbon Dioxide Level 26.1 MEQ/L Anion Gap 15 MEQ/L Estimat Glomerular Filtration Rate 8 ML/MIN IMAGING: Pelvis CT 10/07/17 0000 Signed Impressions: Service Date/Time: Saturday, October 07, 2017 21:04 - CONCLUSION: 1. Large soft tissue defect involving the left groin which does not reach the bypass. Intact soft tissue is noted surrounding the bypass. There is a small amount of circumferential fluid surrounding the proximal bypass. 2. Anasarca. Ryan Nugent Jr., MD PHYSICAL EXAMINATION: GENERAL: No acute distress. She is awake and alert. HEENT: No icterus. No conjunctival erythema. Oropharynx moist mucosa. No visible lesions. No thrush. NECK: Supple without adenopathy or swelling. LUNGS: Clear breath sounds. HEART: Regular rate and rhythm. No murmurs, rubs or gallops. ABDOMEN: Bowel sounds, moderately obese, soft, nontender. GROIN: The left groin has an open wound with very good clean base tissue with granulation. creamy slough at edge. Erythema is present but decreased at the surrounding skin at the lateral outer portion EXTREMITIES: No clubbing, cyanosis, bilateral LE edema. SKIN: No rash. NEUROLOGIC: No gross focal findings. PSYCHIATRIC: Pleasant, calm and cooperative. IMPRESSION: 1. Wound infection of the left groin, nonhealing. Underwent debridement of the wound left open and is being packed. New culture has VRE, Klebsiella and 3rd organism and also Rosa. Rosa identified as Rosa glabrata. 2. Status post femoral bypass with graft. The graft does not appear to be involved with the infection. 3. Poor wound healing, which could be due to some underlying clinical condition which prevents adequate healing. RECOMMENDATIONS: 1. Continue meropenem for Klebsiella. 2. Continue micafungin for Rosa glabrata. 3. Continue Flagyl to cover potential anaerobes. 4. Continue Zyvox for VRE. 5. Monitor clinical response. Plan for Antibiotics for 6 weeks (until November 18, 2017) post surgery due to poor healing. Bernardo Corrales MD October 17, 2017 15:11
[2017-10-17] MEDS: MEROPENEM INJ 500 MG in SODIUM CHLORIDE 0.9% INJ 100 ML IV SCH (15:40)
[2017-10-17 16:00] VITALS: BP 136/87; PULSE 68; RESP 17; TEMP 97.4; O2SAT 96
[2017-10-17] MEDS: CINACALCET HYDROCHLORIDE 30 MG TAB PO SCH (16:07)
[2017-10-17 20:00] VITALS: BP 140/63; PULSE 72; RESP 16; TEMP 97.1; O2SAT 94
[2017-10-17] MEDS: ENOXAPARIN SODIUM 30 MG/0.3 ML SYRINGE SQ SCH (20:58)
[2017-10-17] MEDS: ATORVASTATIN 40 MG TAB PO SCH (21:00)
[2017-10-18] VITALS: BP 142/65; PULSE 74; RESP 16; TEMP 98.8; O2SAT 99
[2017-10-18] MEDS: metroNIDAZOLE 500 MG TAB PO SCH ×2 (05:35→15:28)
[2017-10-18] MEDS: LINEZOLID 600 MG PREMIX 300 ML IV SCH (05:35)
[2017-10-18] MEDS: LEVOTHYROXINE SODIUM 125 MCG TAB PO SCH (05:35)
[2017-10-18 06:26] LABS: BICARBONATE 28.2 MEQ/L (21.0-32.0); CALCIUM 8.3 MG/DL (8.5-10.1); CREATININE 4.51 MG/DL (0.50-1.00)
[2017-10-18 08:00] VITALS: BP 142/64; PULSE 66; RESP 18; TEMP 97.2; O2SAT 94
[2017-10-18] MEDS: MEDIUM DOSE INSULIN NOVOLOG SUPPLEMENTAL SCALE SQ SCH ×3 (08:00→16:38)
[2017-10-18] MEDS: DOCUSATE SODIUM 50 MG/SENNA 8.6 MG TAB PO SCH (09:00)
[2017-10-18] MEDS: SODIUM CHLORIDE 0.9% FLUSH 10 ML FLUSH IV FLUSH SCH (09:00)
[2017-10-18] MEDS: INSULIN DETEMIR 100 UNITS/ML VIAL SQ SCH (09:00)
--- NOTE | 2017-10-18 09:45 | HHI.NPPN ---
Subjective History of Present Illness This patient is a 72-year-old female with a history of multiple medical problems including diabetes mellitus, hypertension, end-stage renal disease, anemia renal disease and peripheral vascular disease now recently status post left femoropopliteal bypass after developing subacute occlusion. Patient recently admitted with hematoma/infection complicating the femoropopliteal bypass. She has been in [facility] since 09/24, but had to have debridement of L groin hematoma this AM. Interval History Pt seen at start of extra HD today UF 4L 10/17 Will attempt 3.5 today and 4L 10/19 to keep on MWF schedule She has been counselled about fluid intake and restrictions. Admitted that she was "snacking on ice chips" more so than she usually does Review of Systems General General Remarks No specific complaints Objective Data Data Vital Signs Date Time Temp Pulse Resp B/P (MAP) Pulse Ox O2 Delivery O2 Flow Rate FiO2 10/18/17 08:00 97.2 66 18 142/64 (90) 94 10/18/17 00:00 98.8 74 16 142/65 (90) 99 10/17/17 20:00 97.1 72 16 140/63 (88) 94 10/17/17 17:46 16 10/17/17 16:00 97.4 68 17 136/87 (103) 96 -: 10/17/17 0600 10/18/17 0530 Imaging Last Impressions Pelvis CT 10/07/17 0000 Signed Impressions: Service Date/Time: Saturday, October 07, 2017 21:04 - CONCLUSION: 1. Large soft tissue defect involving the left groin which does not reach the bypass. Intact soft tissue is noted surrounding the bypass. There is a small amount of circumferential fluid surrounding the proximal bypass. 2. Anasarca. Ryan Nugent Jr., MD Medication Review Current Medications Medications (Trade) Dose Ordered Sig/Julius Route Start Time Stop Time Status Last Admin (NS Flush) 5 ml DAILY IV FLUSH 10/08/17 09:00 10/17/17 08:25 (Heparin Central Flush) 500 units DAILY IV FLUSH 10/08/17 09:00 10/17/17 08:19 (NS Flush) 5 ml UNSCH PRN IV FLUSH 10/07/17 13:15 10/07/17 13:20 (Heparin Central Flush) 500 units UNSCH PRN IV FLUSH 10/07/17 13:15 (NS Flush) 2 ml UNSCH PRN IV FLUSH 10/07/17 15:30 (NS Flush) 2 ml BID IV FLUSH 10/07/17 21:00 10/17/17 21:00 (Tylenol) 650 mg Q4H PRN PO 10/07/17 16:00 (Narcan Inj) 0.4 mg UNSCH PRN IV PUSH 10/07/17 16:00 (Milk Of Magnesia Liq) 30 ml Q12H PRN PO 10/07/17 15:30 (Senokot) 17.2 mg Q12H PRN PO 10/07/17 15:30 (Dulcolax Supp) 10 mg DAILY PRN RECTAL 10/07/17 16:00 (Lactulose Liq) 30 ml DAILY PRN PO 10/07/17 15:30 (Lovenox Inj) 30 mg Q24H SQ 10/07/17 20:00 10/17/17 20:58 ([employer] 5-325 Mg) 1 tab Q4H PRN PO 10/07/17 15:45 10/17/17 20:57 (Coreg) 6.25 mg BID PO 10/07/17 21:00 10/17/17 21:00 (Vitamin D3) 1,000 units DAILY PO 10/08/17 09:00 10/16/17 08:24 (Plavix) 75 mg DAILY PO 10/08/17 09:00 10/17/17 08:20 (Pepcid) 10 mg BID PO 10/07/17 21:00 10/17/17 20:59 (Neurontin) 200 mg TID PO 10/07/17 18:00 10/17/17 16:07 (Levemir Inj) 17 units HS SQ 10/07/17 21:00 10/17/17 20:58 (Levemir Inj) 20 units DAILY SQ 10/08/17 09:00 10/17/17 08:18 (Lactinex) 1 tab TID PO 10/07/17 18:00 10/17/17 16:07 (Synthroid) 125 mcg DAILY@0600 PO 10/08/17 06:00 10/18/17 05:35 (Nitrostat Sl) 0.4 mg Q5M PRN SL 10/07/17 15:45 (Lucinda-Colace) 1 tab BID PO 10/07/17 21:00 10/17/17 21:00 (Renvela) 800 mg TID PO 10/07/17 18:00 10/17/17 16:06 (Zofran Odt) 4 mg Q6H PRN PO 10/07/17 15:45 10/15/17 08:23 (Zetia) 10 mg DAILY PO 10/08/17 09:00 10/17/17 08:20 (Lipitor) 40 mg HS PO 10/07/17 21:00 10/17/17 21:00 (Sensipar) 60 mg WITH DINNER PO 10/07/17 18:00 10/17/17 16:07 Sodium Chloride 1,000 ml @ 0 mls/hr Q0M PRN OTHER 10/07/17 16:53 (Heparin Inj) 8,000 units UNSCH PRN IV FLUSH 10/07/17 17:00 Sodium Chloride 1,000 ml @ 200 mls/hr Q5H PRN IV 10/07/17 16:53 10/08/17 11:39 Sodium Chloride 1,000 ml @ 0 mls/hr Q0M PRN OTHER 10/07/17 16:53 (Mannitol Inj) 12.5 gm UNSCH PRN IV 10/07/17 17:00 Albumin Human 100 ml @ 60 mls/hr UNSCH PRN IV 10/07/17 17:00 10/12/17 09:16 (NS Flush) 5 ml UNSCH PRN IV FLUSH 10/07/17 17:00 (Heparin Inj) UNSCH PRN .XX 10/07/17 17:00 10/08/17 11:39 (Gentamicin Inj) 20 mg UNSCH PRN OTHER 10/07/17 17:00 10/08/17 11:40 (Zofran Inj) 4 mg UNSCH PRN IV PUSH 10/07/17 17:00 10/17/17 04:50 (Tylenol) 650 mg UNSCH PRN PO 10/07/17 17:00 (Benadryl) 25 mg UNSCH PRN PO 10/07/17 17:00 (Nitrostat Sl) 0.4 mg UNSCH PRN SL 10/07/17 17:00 (Catapres) 0.1 mg UNSCH PRN PO 10/07/17 17:00 (Epogen Inj) 8,000 units UNSCH PRN IV PUSH 10/07/17 17:00 10/17/17 12:46 (Gelfoam 12 Mm/7 Mm Top) 1 foam UNSCH PRN TOP 10/07/17 17:00 10/12/17 09:16 (Drisdol) 50,000 units Q14D PO 10/07/17 18:00 10/07/17 18:49 Meropenem 500 mg/ Sodium Chloride 100 ml @ 200 mls/hr Q24H IV 10/08/17 16:00 10/17/17 15:40 (Flagyl) 500 mg Q8HR PO 10/08/17 22:00 10/18/17 05:35 (D50w (Vial) Inj) 50 ml UNSCH PRN IV PUSH 10/09/17 16:45 (Glucagon Inj) 1 mg UNSCH PRN OTHER 10/09/17 16:45 (NovoLOG SUPPLEMENTAL SCALE) 1 ACHS SLIDING SCALE SQ 10/09/17 17:00 10/17/17 20:57 Linezolid 300 ml @ 300 mls/hr Q12H IV 10/10/17 18:00 10/18/17 05:35 (Morphine Inj) 2 mg Q4H PRN IV PUSH 10/13/17 03:30 10/13/17 03:44 Micafungin Sodium 100 mg/Sodium Chloride 100 ml @ 100 mls/hr Q24H IV 10/13/17 14:00 10/17/17 13:37 (Imodium) 2 mg Q4H PRN PO 10/15/17 14:45 10/16/17 11:38 Physical Exam General Appearance: Well Developed, No Acute Distress, Comfortable Eyes Eye Exam: Sclera White Pulmonary Resp Exam: Clear Bilaterally, Breath Sounds Equal, No Distress Cardiology CV Exam: Regular, Normal Sinus Rhythm Gastrointestinal/Abdomen GI Exam: Soft, Non-Tender Integumentary Skin Exam: Clear, Warm Extremeties Extremities Exam: Moderate Edema (generalized) Neurologic Neuro Exam: Alert, Awake Assessment/Plan Discussed Condition With: Patient Problem List: (1) ESRD (end stage renal disease) on dialysis ICD Codes: N18.6 - End stage renal disease; Z99.2 - Dependence on renal dialysis Status: Chronic Plan: Seen during extra HD for volume HD tomorrow again as per regular schedule with 4L UF Plans for D/C back to [facility] this afternoon. Continue Renvela for hyperphosphatemia. Encouraged to eat more protein. Nepro as supplement. Medications should be adjusted for the patient's ESRD. Avoid gadolinium (2) Hematoma of groin ICD Codes: S30.1XXA - Contusion of abdominal wall, initial encounter Status: Acute Plan: s/p debridement 10/08 Wound cx Rosa, VRE, and Kleb. Now on Micafungin, Flagyl, and Zyvox (3) Peripheral vascular disease ICD Codes: I73.9 - Peripheral vascular disease, unspecified Status: Acute (4) Anemia of renal disease ICD Codes: D63.1 - Anemia in chronic kidney disease Status: Chronic Plan: CBC in the AM Fe stores mildly low but will hold off on Venofer given infection. Epogen with HD (5) Diabetes mellitus type 2 with complications ICD Codes: E11.8 - Type 2 diabetes mellitus with unspecified complications Status: Chronic Plan: Mgmt as per primary (6) Secondary hyperparathyroidism of renal origin ICD Codes: N25.81 - Secondary hyperparathyroidism of renal origin Plan: Continue Sensipar and Ergocalciferol as before. (7) Hypertension ICD Codes: I10 - Essential (primary) hypertension Status: Acute Ayala Simmons October 18, 2017 09:45
[2017-10-18] MEDS: EPOETIN ALFA 10,000 UNITS/ML VIAL IV PUSH PRN (09:56)
[2017-10-18] MEDS: GELATIN 12 MM/7 MM FOAM TOP PRN (09:56)
[2017-10-18] MEDS: LACTOBACILLUS ACIDOPHILUS TAB PO SCH ×2 (13:00→15:28)
[2017-10-18] MEDS: GABAPENTIN 100 MG CAP PO SCH ×2 (13:00→15:29)
[2017-10-18] MEDS: SEVELAMER CARBONATE 800 MG TAB PO SCH ×2 (13:00→15:29)
[2017-10-18] MEDS ORDERED: HYDR-3516 PO (15:10)
[2017-10-18] MEDS ORDERED: METR-1 PO (15:10)
[2017-10-18] MEDS ORDERED: VITA500012 PO (15:10)
[2017-10-18] MEDS ORDERED: [UNRECOGNIZED DRUG - CODE] IV (15:10)
[2017-10-18] MEDS ORDERED: MERO1INJ IV (15:10)
[2017-10-18] MEDS ORDERED: [UNRECOGNIZED DRUG - CODE] IV (15:10)
[2017-10-18] MEDS ORDERED: CINA30 PO (15:10)
--- NOTE | 2017-10-18 15:19 | HHI.DS ---
Discharge Summary Admission Date October 07, 2017 at 15:33 Discharge Date: October 18, 2017 Admitting Diagnosis (1) Diabetes mellitus type 2 with complications ICD Code: E11.8 - Type 2 diabetes mellitus with unspecified complications Status: Chronic (2) ESRD (end stage renal disease) on dialysis ICD Code: N18.6 - End stage renal disease; Z99.2 - Dependence on renal dialysis Status: Chronic (3) Wound infection ICD Code: T14.8XXA - Other injury of unspecified body region, initial encounter ; L08.9 - Local infection of the skin and subcutaneous tissue, unspecified Diagnosis: Principal Procedures 10/07/17 debridement of left groin wound Brief History - From Admission This is a 72-year-old female with a past medical history significant for diabetes, end-stage renal disease on hemodialysis Wednesdays and Fridays, peripheral vascular disease, coronary artery disease, hypertension, dyslipidemia, CHF, previous CVA x 3, hx of left foot second toe amputation and hypothyroidism who underwent a left femoral-popliteal bypass and femoral endarterectomy on August 30, [address] Brothers at [facility]. Patient had unremarkable hospital course and was [facility] a detention [facility]. While at that facility patient developed increasing pain and was brought to [facility] for evaluation. Patient was admitted on September 07, 2017 for acute sepsis secondary to infected left groin hematoma which grew Klebsiella. Dr. Corrales of infectious disease was consulted and recommended patient be treated with IV Zosyn through October 07. Patient was admitted to [facility] on 09/24/17. Dr. Brothers was consulted and performed wound debridement on September 23, 2017 which was subsequently seen by wound care nurse who applied a wound VAC to left groin. While in rehab, patient was seen in consultation by Dr. Perkins of podiatry due to concern for ischemic wound on the left great toe and bony erosions seen on x-ray. Follow- up MRI failed to show any evidence of osteomyelitis and patient underwent bedside debridement of eschar. Patient is now to be admitted following repeat I &D of the left groin and application of wound VAC. CBC/BMP: 10/17/17 0600 10/18/17 0530 Significant Findings Laboratory Tests Test 10/17/17 06:00 10/18/17 05:30 Red Blood Count 3.83 MIL/MM3 (4.00-5.30) Red Cell Distribution Width 20.3 % (11.6-17.2) Monocytes (%) (Auto) 9.8 % (0.0-8.0) Blood Urea Nitrogen 40 MG/DL (7-18) 35 MG/DL (7-18) Creatinine 5.29 MG/DL (0.50-1.00) 4.51 MG/DL (0.50-1.00) Random Glucose 147 MG/DL (74-106) Calcium Level 8.1 MG/DL (8.5-10.1) 8.3 MG/DL (8.5-10.1) Sodium Level 130 MEQ/L (136-145) Chloride Level 89 MEQ/L (98-107) 94 MEQ/L (98-107) Estimat Glomerular Filtration Rate 8 ML/MIN (>89) 10 ML/MIN (>89) Imaging Last Impressions Pelvis CT 10/07/17 0000 Signed Impressions: Service Date/Time: Saturday, October 07, 2017 21:04 - CONCLUSION: 1. Large soft tissue defect involving the left groin which does not reach the bypass. Intact soft tissue is noted surrounding the bypass. There is a small amount of circumferential fluid surrounding the proximal bypass. 2. Anasarca. Ryan Nugent Jr., MD PE at Discharge General: Obese elderly female in no acute distress. Heart: Regular rate and rhythm. No murmur. Lungs: Clear to auscultation bilaterally. No wheezes, rales, or rhonchi. Breathing is nonlabored. Abdomen: Soft, nontender, nondistended. Extremities: 2+ bilateral lower extremity edema. Feet in soft boots. Psych: Alert and oriented. Neuro: Normal speech. No focal deficits noted. Pt update on day of discharge The patient was eating a late lunch. She was looking forward to going back to rehabilitation. She had no acute complaints. Family was at the bedside. Their questions were answered. Discussed with nursing. Hospital Course Infected left groin hematoma/ cellulitis left groin Imaging showed: Large soft tissue defect involving the left groin which does not reach the bypass; Intact soft tissue is noted surrounding the bypass; There is a small amount of circumferential fluid surrounding the proximal bypass. Wound culture growing Klebsiella pneumonia, multidrug resistant, hans and VRE. Infectious disease and vascular surgery were consulted. 10/07/17 s/p debridement of left groin wound. She received wound care per surgery. No further surgical intervention planned at this time. She will continue IV meropenem, Zyvox, micafungin and PO Flagyl until 11/18/17 per ID. She will follow up with surgery as an outpt. End-stage renal disease Nephrology was consulted. The pt was resumed on hemodialysis Tuesday/Tuesday/ Tuesday. She will follow up with nephrology and will continue her supplements and dialysis as scheduled. Diabetes mellitus We continued Levemir. We monitored Accu-Cheks and covered with sliding scale insulin. She will resume her home regimen upon discharge. Left great toe wound/ right heel wound Podiatry was consulted. The pt received wound care. Offloading heel raiser boots were recommended. She will follow up with podiatry as an outpt. Diarrhea C diff was negative. We continued Lactinex. She received Imodium as needed. Pt Condition on Discharge: Stable Discharge Disposition: Rehab Inpatient Discharge Time: > 30 minutes Discharge Instructions DIET: Follow Instructions for: Diabetic Diet, Renal Failure Diet Activities you can perform: Weight Bearing as Marika Follow up Referrals: Nephrology - 1 Week PCP Follow-up - 1 Week Podiatry - 2 Weeks Vascular Surgery - 1 Week New Medications: Linezolid Inj (Linezolid Inj) 600 Mg/300 Ml Bag 600 MG IV Q12H for Infection, #1 BAG 0 Refills Meropenem Inj (Meropenem Inj) 500 Mg/50 Ml Bag 500 MG IV Q24H for Infection, #1 BAG 0 Refills Micafungin Inj (Mycamine Inj) 100 Mg Inj 100 MG IV DAILY for Infection, #1 VIAL Cinacalcet (Sensipar) 30 Mg Tab 60 MG PO WITH DINNER for Kidneys, #60 TAB Ergocalciferol (Ergocalciferol) 50,000 Unit Cap 33279 UNITS PO Q14D for Supplement, #4 CAP Metronidazole (Flagyl) 500 Mg Tab 500 MG PO Q8HR for Infection, #1 TAB Continued Medications: Carvedilol (Carvedilol) 6.25 Mg Tab 6.25 MG PO BID, #60 TAB 0 Refills Cholecalciferol (Gnp Vitamin D3 Extra Stre) 1,000 Unit Tab 1000 UNITS PO DAILY, #30 TAB Clopidogrel (Plavix) 75 Mg Tab 75 MG PO DAILY for Blood Clot Prevention, #30 TAB 0 Refills Epoetin Inj (Procrit Inj) 2,000 Unit/Ml Inj 1000 UNITS SQ TUESDAY for Anemia, #12 VIAL 0 Refills Ezetimibe-Simvastatin (Vytorin) 10-80 Mg Tab 1 TAB PO HS, #30 TAB 0 Refills Famotidine (Famotidine) 20 Mg Tab 10 MG PO BID, #30 TAB Gabapentin (Gabapentin) 100 Mg Cap 200 MG PO TID, #180 CAP Hydrocodone/Acetaminophen (Hydrocodone-Acetamin 5-325 mg) 5 Mg-325 Mg Tablet 1 TAB PO Q6H PRN for Pain 5-10, #12 TAB (This prescription has been renewed) Insulin Detemir Inj (Levemir Inj) 1,000 unit/ 10 ML Vial 17 UNITS SQ HS for 30 Days, INJECTION Do not mix with any other Insulin. Insulin Detemir Inj (Levemir Inj) 1,000 unit/ 10 ML Vial 20 UNITS SQ DAILY for 30 Days, INJECTION Do not mix with any other Insulin. Insulin Lispro (Human) Inj (Humalog Inj) 1,000 Unit/10 Ml Vial SQ ACHS for Blood Sugar Management, #1 VIAL 0 Refills SLIDING SCALE DIRECTED Lactobacillus Acidophilus (Acidophilus/l-Sporogenes) 35 Million Cell-25 Million Cell Tab 1 TAB PO TID, #90 TAB Levothyroxine (Synthroid) 125 Mcg Tab 125 MCG PO DAILY for Thyroid, #30 TAB 0 Refills Nitroglycerin SL (Nitrostat SL) 0.4 Mg Subl 0.4 MG SL Q5M PRN for CHEST PAIN, #30 TAB Sennosides-Docusate Sodium (Gnp Senna Plus 8.6-50 mg) 8.6 Mg-50 Mg Tab 1 TAB PO BID for Constipation, #60 TAB Sevelamer Carbonate (Renvela) 800 Mg Tab 800 MG PO TID for Control phosphorous levels, #90 TAB 0 Refills Discontinued Medications: Cinacalcet (Sensipar) 30 Mg Tab 30 MG PO WITH DINNER, #30 TAB Piperacillin-Tazobactam Inj (Piperacillin-Tazobactam Inj) 2-0.25 Gm Inj 2.25 GM IV Q8H for Infection for 13 Days, BAG 0 Refills end date 10/07/17 Efrem Garzon DO October 18, 2017 15:18
--- NOTE | 2017-10-18 15:22 | HHI.DCPOC ---
Discharge Care Plan Diagnosis: (1) Wound infection (2) Diabetes mellitus type 2 with complications (3) Anemia of renal disease (4) ESRD (end stage renal disease) on dialysis (5) Peripheral vascular disease Goals to Promote Your Health * To prevent worsening of your condition and complications * To maintain your health at the optimal level Directions to Meet Your Goals Take your medications as prescribed Follow your dietary instruction Follow activity as directed Keep your appointments as scheduled Take your immunizations and boosters as scheduled If your symptoms worsen call your PCP, if no PCP go to Urgent Care Center or Emergency Room Smoking is Dangerous to Your Health. Avoid second hand smoke Call the 24-hour hour crisis hotline for domestic abuse at Efrem Garzon DO October 18, 2017 15:22
[2017-10-18] MEDS: EZETIMIBE 10 MG TAB PO SCH (15:28)
[2017-10-18] MEDS: MICAFUNGIN INJ 100 MG in SODIUM CHLORIDE 0.9% INJ 100 ML IV SCH (15:28)
[2017-10-18] MEDS: CHOLECALCIFEROL (VIT D3) 1000 UNIT TAB PO SCH (15:29)
[2017-10-18] MEDS: FAMOTIDINE 20 MG TAB PO SCH (15:29)
[2017-10-18] MEDS: CLOPIDOGREL 75 MG TAB PO SCH (15:29)
[2017-10-18] MEDS: Hickman Catheter Daily NS Lock Flush IV FLUSH SCH (15:30)
[2017-10-18] MEDS: CARVEDILOL 6.25 MG TAB PO SCH (15:59)
[2017-10-18 16:00] VITALS: BP 129/58; PULSE 79; RESP 19; TEMP 97.2; O2SAT 90
[2017-10-18] MEDS: MEROPENEM INJ 500 MG in SODIUM CHLORIDE 0.9% INJ 100 ML IV SCH (16:36)
[2017-10-18] MEDS: ACETAMINOPHEN/HYDROcodone 325 MG/5 MG TAB PO PRN (17:17)
== END 2017-10-18 17:40 | DRG 856 ==
LOC: HSDC 12:29 → N07B 15:33
PROVIDERS: ADMIT Hospitalist; ATTEND Hospitalist
PROC: 5A1D70Z Performance of Urinary Filtration, Intermittent, Less than 6 Hours Per Day (ICD-10-PCS; 2017-10-08)
PROC: 0JBM0ZZ Excision of Left Upper Leg Subcutaneous Tissue and Fascia, Open Approach (ICD-10-PCS; principal; 2017-10-10)
DX: T81.4XXA Infection following a procedure, initial encounter (principal); N18.6 End stage renal disease; I13.2 Hypertensive heart and chronic kidney disease with heart failure and with stage 5 chronic kidney disease, or end stage renal disease; N25.81 Secondary hyperparathyroidism of renal origin; E11.21 Type 2 diabetes mellitus with diabetic nephropathy; L03.314 Cellulitis of groin; L76.32 Postprocedural hematoma of skin and subcutaneous tissue following other procedure; I50.22 Chronic systolic (congestive) heart failure; Z68.41 Body mass index [BMI] 40.0-44.9, adult; E11.51 Type 2 diabetes mellitus with diabetic peripheral angiopathy without gangrene; D63.1 Anemia in chronic kidney disease; B96.1 Klebsiella pneumoniae [K. pneumoniae] as the cause of diseases classified elsewhere; E83.39 Other disorders of phosphorus metabolism; E11.22 Type 2 diabetes mellitus with diabetic chronic kidney disease; E03.9 Hypothyroidism, unspecified; E78.5 Hyperlipidemia, unspecified; R60.0 Localized edema; R19.7 Diarrhea, unspecified; E11.319 Type 2 diabetes mellitus with unspecified diabetic retinopathy without macular edema; M79.671 Pain in right foot; I25.10 Atherosclerotic heart disease of native coronary artery without angina pectoris; M19.90 Unspecified osteoarthritis, unspecified site; E66.9 Obesity, unspecified; Z16.24 Resistance to multiple antibiotics; Z95.1 Presence of aortocoronary bypass graft; Z99.2 Dependence on renal dialysis; Z79.4 Long term (current) use of insulin; Z86.73 Personal history of transient ischemic attack (TIA), and cerebral infarction without residual deficits; Z79.899 Other long term (current) drug therapy; Z89.422 Acquired absence of other left toe(s); Z79.02 Long term (current) use of antithrombotics/antiplatelets; Z91.81 History of falling
CPT/HCPCS: 72192; 80048; 80069; 82948; 84100; 84155; 85025; 85027; 87015; 87070; 87077; 87102; 87106; 87116; 87176; 87186; 87205; 87206; 87493; 88304; 88305; 90935; 96374; 96375; J1450; J1580; J1642; J1644; J1650; J1815; J2020; J2185; J2248; J2270; J2405; J2543; J7030; P9047; Q4081

== ENCOUNTER 2017-11-15 13:48 | Inpatient (IN) | payer MEDICARE, OTHER ==
[~2017-11-15] VITALS: Ht 167.6 cm; Wt 105.0 kg
[~2017-11-15 13:48] MED LIST changes: -ACET1TAB94 PO; +ACET325T15 PO; +ATOR40TA16 PO; +Aquaphor Oint TOPICAL; +CHOL4POW4 PO; +EZET10 PO; +HYDR-3580 PO; -LIDOCAINE HCL 1% PF 5 ML SYRINGE OTHER ONE; +LOPE2CAP2 PO; +METR-1 PO; -NITR0.4S SL; +ONDA4TAB7 PO; -PERI PO; -PROPOFOL 200 MG/20 ML AMP IV ONE; -RANI150T PO; -SEVEL800 PO; +SILV1CRE20 TOPICAL; +VITA500012 PO; -VYTO10TA25 PO; +Zinc Oxide 20% Oint TOPICAL; +[UNRECOGNIZED DRUG - CODE] IV; -[UNRECOGNIZED DRUG - CODE] IV; -ePHEDrine/NS 25 MG/5 ML SYRINGE IV ONE
[2017-11-15 14:00] VITALS: BP 168/70; PULSE 65; RESP 16; TEMP 97.7; O2SAT 99
--- NOTE | 2017-11-15 14:18 | PD ---
HPI Chief Complaint: GI Complaint Time Seen by Provider: 14:16 Travel History International Travel<30 days: No Contact w/Intl Traveler<30days: No Traveled to known affect area: No History of Present Illness HPI 72 y/o female presents with nonbloody emesis and diarrhea with abdominal cramping over the past couple days. She notes she just got discharged from rehab on Tuesday. She confirms she still on her antibiotics with home health. She notes chills but denies any other concurrent complaints. Quality is nonbloody. Severity is multiple episodes per patient. She states she feels worse when she moves around. She denies other modifying factors. History is supplemented from nurses patient is a poor historian. PFSH Past Medical History Hx Anticoagulant Therapy: Yes Arthritis: Yes Asthma: No Autoimmune Disease: Yes Blood Disorders: No Anxiety: No Depression: No Heart Rhythm Problems: No Cancer: No Cardiovascular Problems: Yes High Cholesterol: Yes Chemotherapy: No Chest Pain: No Congestive Heart Failure: Yes COPD: No Cerebrovascular Accident: Yes Coronary Artery Disease: Yes Diabetes: Yes Diminished Hearing: No Endocrine: Yes GERD: Yes Genitourinary: Yes (DIALYSIS TUE, TUE, TUE) Hepatitis: No Hiatal Hernia: No Hypertension: Yes Immune Disorder: No Kidney Stones: No Musculoskeletal: Yes Neurologic: Yes (3 strokes ) Psychiatric: No Reproductive: No Respiratory: No Migraines: No Radiation Therapy: No Renal Failure: Yes (ON DIALYSIS) Seizures: No Sickle Cell Disease: No Sleep Apnea: No Thyroid Disease: Yes (hypothyroid) Triglycerides - High: Yes Ulcer: No ?: Not Menopausal: Yes Past Surgical History Abdominal Surgery: Yes (appendectomy / gallbladder out) AICD: No Arteriovenous Shunt: Yes (AV Fistula right arm ) Body Medical Devices: INSULIN PUMP, RUE DIALYSIS GRAFT STERNAL WIRES Cardiac Surgery: Yes (3 vessel bypass, fembypass ) Ear Surgery: No Endocrine Surgery: No Eye Surgery: Yes (CATARCT BILATERAL 1999) Genitourinary Surgery: No Gynecologic Surgery: No Insulin Pump: No Joint Replacement: No Oral Surgery: No Pacemaker: No Thoracic Surgery: No Other Surgery: Yes Social History Alcohol Use: No Tobacco Use: No Substance Use: No Allergies-Medications (Allergen,Severity, Reaction): Coded Allergies: amlodipine (Unverified Allergy, Severe, 11/15/17) adhesive tape (Verified Allergy, Unknown, Generalized Itching, 11/15/17) Redness Reported Meds & Prescriptions Reported Meds & Active Scripts Active Eq Acetaminophen (Acetaminophen) 325 Mg Tab 650 Mg PO Q12HR PRN Hydrocodone-Acetamin 5-325 mg (Hydrocodone/Acetaminophen) 5 Mg-325 Mg Tablet 1 Tab PO Q12HR PRN Hydrocodone-Acetamin 7.5-325 (Hydrocodone/Acetaminophen) 7.5 Mg-325 Mg Tablet 1 Tab PO BID PRN [Zinc Oxide 20% Oint] 30 APPLIC/30 GM Oint 1 Applic TOPICAL BID [Aquaphor Oint] 50 APPLIC/50 GM Oint 1 Applic TOPICAL Q12HR Silvadene Topical (Silver Sulfadiazine) 1 % Cream 1 Applic TOPICAL DAILY Levemir Inj (Insulin Detemir) 1,000 unit/ 10 ML Vial 20 Units SQ DAILY 30 Days Do not mix with any other Insulin. Levemir Inj (Insulin Detemir) 1,000 unit/ 10 ML Vial 22 Units SQ HS 30 Days Do not mix with any other Insulin. Ondansetron Odt 4 Mg Tab 4 Mg PO Q4H PRN Hm Loperamide HCl (Loperamide HCl) 2 Mg Cap 4 Mg PO Q6H PRN Gabapentin 100 Mg Cap 200 Mg PO DAILY Atorvastatin (Atorvastatin Calcium) 40 Mg Tab 40 Mg PO HS Zetia (Ezetimibe) 10 Mg Tab 10 Mg PO DAILY Ergocalciferol 50,000 Unit Cap 50,000 Units PO Q14D Sensipar (Cinacalcet) 30 Mg Tab 60 Mg PO WITH DINNER Flagyl (Metronidazole) 500 Mg Tab 500 Mg PO Q8HR Through November 18, 2017. Gnp Vitamin D3 Extra Stre (Cholecalciferol) 1,000 Unit Tab 1,000 Units PO DAILY Acidophilus/l-Sporogenes (Lactobacillus Acidophilus) 35 Million Cell-25 Million Cell Tab 1 Tab PO TID Famotidine 20 Mg Tab 10 Mg PO BID Carvedilol 6.25 Mg Tab 6.25 Mg PO BID Humalog Inj (Insulin Human Lispro) 1,000 Unit/10 Ml Vial 1 Unit SQ ACHS SLIDING SCALE DIRECTED Synthroid (Levothyroxine Sodium) 125 Mcg Tab 125 Mcg PO DAILY Plavix (Clopidogrel Bisulfate) 75 Mg Tab 75 Mg PO DAILY Mycamine Inj (Micafungin Sodium) 100 Mg Inj 100 Mg IV DAILY Wheelchair (Device) 1 Mis Mis Ea .XX DIRECTED Commode 3-in-1 (Device) 1 Mis Mis Ea .XX DIRECTED Oxygen tank (Oxygen) 1 Ea Tank Liter FLORINDA.CANULA CONTINUOUS Oxygen Concentrator Portable Gaseous 2 L/min via Nasal Cannula Continuous For 99 months Oxygen (O2) Device Liter FLORINDA.CANULA CONTINUOUS PRN Oxygen Concentrator Portable Gaseous 2 L/min via Nasal Canula Continuous For 99 months Reported [Rocephin] 1 Gm IV DAILY Procrit Inj (Epoetin Dio) 2,000 Unit/Ml Inj 1,000 Units SQ TUESDAY Review of Systems ROS Limitations: Poor Historian Except as stated in HPI: all other systems reviewed are Neg Physical Exam Narrative GENERAL: 72-year-old female in no apparent distress SKIN: Wound noted to left lower groin without active drainage HEAD: Atraumatic. Normocephalic. EYES: Pupils equal and round. No injection or drainage. ENT: No nasal bleeding or discharge. Mucous membranes pink and moist. NECK: Trachea midline. CARDIOVASCULAR: Regular rate and rhythm. RESPIRATORY: No accessory muscle use. Clear to auscultation. Breath sounds equal bilaterally. GASTROINTESTINAL: Abdomen soft, mild tenderness diffusely, nondistended. MUSCULOSKELETAL: No obvious deformities. No clubbing. No cyanosis. NEUROLOGICAL: Awake. Moves all extremities. Normal speech. Data Data Last Documented VS Vital Signs Date Time Temp Pulse Resp B/P (MAP) Pulse Ox O2 Delivery O2 Flow Rate FiO2 11/15/17 16:28 67 20 169/74 (105) 99 Room Air 11/15/17 14:00 97.7 Orders Orders Complete Blood Count With Diff (11/15/17 14:23) Comprehensive Metabolic Panel (11/15/17 14:23) Lipase (11/15/17 14:23) Iv Access Insert/Monitor (11/15/17 14:23) Oximetry (11/15/17 14:23) Metoclopramide Inj (Reglan Inj) (11/15/17 14:30) Sodium Chlorid 0.9% 500 Ml Inj (Ns 500 M (11/15/17 14:30) Ct Abd/Pel W/O Iv Contrast (11/15/17 ) Ondansetron Odt (Zofran Odt) (11/15/17 16:30) Prochlorperazine Inj (Compazine Inj) (11/15/17 16:30) Consult Nephrology (11/15/17 ) Admit Order (Ed Use Only) (11/15/17 16:48) Labs Laboratory Tests Test 11/15/17 14:20 White Blood Count 14.0 TH/MM3 Red Blood Count 3.99 MIL/MM3 Hemoglobin 12.0 GM/DL Hematocrit 37.9 % Mean Corpuscular Volume 95.0 FL Mean Corpuscular Hemoglobin 30.1 PG Mean Corpuscular Hemoglobin Concent 31.7 % Red Cell Distribution Width 22.1 % Platelet Count 410 TH/MM3 Mean Platelet Volume 7.2 FL Neutrophils (%) (Auto) 83.7 % Lymphocytes (%) (Auto) 8.9 % Monocytes (%) (Auto) 6.3 % Eosinophils (%) (Auto) 0.1 % Basophils (%) (Auto) 1.0 % Neutrophils # (Auto) 11.7 TH/MM3 Lymphocytes # (Auto) 1.2 TH/MM3 Monocytes # (Auto) 0.9 TH/MM3 Eosinophils # (Auto) 0.0 TH/MM3 Basophils # (Auto) 0.1 TH/MM3 CBC Comment DIFF FINAL Differential Comment Blood Urea Nitrogen 31 MG/DL Creatinine 4.37 MG/DL Random Glucose 192 MG/DL Total Protein 7.5 GM/DL Albumin 3.1 GM/DL Calcium Level 8.9 MG/DL Alkaline Phosphatase 258 U/L Aspartate Amino Transf (AST/SGOT) 17 U/L Alanine Aminotransferase (ALT/SGPT) 10 U/L Total Bilirubin 0.6 MG/DL Sodium Level 135 MEQ/L Potassium Level 4.5 MEQ/L Chloride Level 97 MEQ/L Carbon Dioxide Level 23.3 MEQ/L Anion Gap 15 MEQ/L Estimat Glomerular Filtration Rate 10 ML/MIN Lipase 146 U/L [facility] Medical Decision Making Medical Screen Exam Complete: Yes Emergency Medical Condition: Yes Medical Record Reviewed: Yes (Antibiotics noted, discharged from rehab yesterday, recent postop infection) Interpretation(s) CBC & BMP Diagram 11/15/17 14:20 Total Protein 7.5, Albumin 3.1 L, Calcium Level 8.9, Alkaline Phosphatase 258 H , Aspartate Amino Transf (AST/SGOT) 17, Alanine Aminotransferase (ALT/SGPT) 10, Total Bilirubin 0.6 Last 24 hours Impressions Abdomen/Pelvis CT 11/15/17 0000 Signed Impressions: CONCLUSION: 1. No acute finding is identified to explain the clinical symptoms. There is t race free fluid in the left paracolic gutter. 2. Anasarca. 3. Small right pleural effusion with compressive atelectasis in the right lowe r lobe. The 10 mm right lower lobe pulmonary nodule is stable. As recommended p reviously, suggest follow-up to confirm stability. 4. Severe atherosclerotic disease. Differential Diagnosis Colitis, renal failure, abscess... Narrative Course per ID note to Continue Ceftriaxone, Daptomycin (VRE), Micafungin, Flagyl p.o. until November 18, 2017, will check blood work, imaging to assess acute scenario Patient has had 8 of Zofran at home and has had Reglan and Compazine here and is still nauseous and had an episode of emesis. Will place in observation for further care. Her last dialysis was yesterday with Dr. Sampson. Will consult him to follow along. Physician Communication Physician Communication dr talavera agrees to observation Diagnosis Primary Impression: Intractable nausea and vomiting Qualified Codes: R11.2 - Nausea with vomiting, unspecified Additional Impressions: ESRD (end stage renal disease) on dialysis Wound of left groin Qualified Codes: S31.109D - Unspecified open wound of abdominal wall, unspecified quadrant without penetration into peritoneal cavity, subsequent encounter Leukocytosis Qualified Codes: D72.829 - Elevated white blood cell count, unspecified Admitting Information Admitting Physician Requests: Observation Saritha Minaya MD Nov 15, 2017 14:18
[2017-11-15] MEDS ORDERED: SODIUM CHLORID 0.9% 500 ML INJ 500 ML IV ONE (14:30)
[2017-11-15] MEDS ORDERED: METOCLOPRAMIDE HCL 10 MG/2 ML VIAL IV PUSH ONE (14:30)
[2017-11-15 14:39] VITALS: RESP 16; O2SAT 97
[2017-11-15 14:48] LABS: AUTOMATED NEUTROPHIL # 11.7 TH/MM3 (1.8-7.7); BASOPHIL # 0.1 TH/MM3 (0-0.2); EOSINOPHIL % 0.1 % (0.0-4.0); HEMATOCRIT 37.9 % (35.0-46.0); LYMPH % 8.9 % (9.0-44.0); LYMPHOCYTE # 1.2 TH/MM3 (1.0-4.8); MEAN CORPUSCULAR HEMOGLOBIN 30.1 PG (27.0-34.0); MEAN CORPUSCULAR HGB CONC 31.7 % (32.0-36.0); MEAN PLATELET VOLUME 7.2 FL (7.0-11.0); MONO % 6.3 % (0.0-8.0); MONOCYTE # 0.9 TH/MM3 (0-0.9); NEUT % 83.7 % (16.0-70.0); PLATELET COUNT 410 TH/MM3 (150-450); RED BLOOD COUNT 3.99 MIL/MM3 (4.00-5.30); RED CELL DISTRIBUTION WIDTH 22.1 % (11.6-17.2)
[2017-11-15] MEDS ORDERED: ROCEPHIN IV (14:59)
[2017-11-15 15:04] LABS: ALBUMIN 3.1 GM/DL (3.4-5.0); ALT (GPT) 10 U/L (10-53); AST (GOT) 17 U/L (15-37); BICARBONATE 23.3 MEQ/L (21.0-32.0); BLOOD UREA NITROGEN 31 MG/DL (7-18); CALCIUM 8.9 MG/DL (8.5-10.1); CHLORIDE 97 MEQ/L (98-107); CREATININE 4.37 MG/DL (0.50-1.00); GLOMERULAR FILTRATION RATE 10 ML/MIN (>89); GLUCOSE,RANDOM 192 MG/DL (74-106); SODIUM (NA) 135 MEQ/L (136-145)
[2017-11-15 15:08] LABS: ALKALINE PHOSPHATASE 258 U/L (45-117); TOTAL BILIRUBIN ADULT 0.6 MG/DL (0.2-1.0); TOTAL PROTEIN 7.5 GM/DL (6.4-8.2)
--- NOTE | 2017-11-15 16:02 | RADRPT ---
EXAM DATE: 11/15/2017 3:41 PM EDT AGE/SEX: 72 years / Female INDICATIONS: Abdominal pain, nausea, vomiting. CLINICAL DATA: This is the patient's initial encounter. Patient reports that signs and symptoms have been present for 1 day and indicates a pain score of 4/10. MEDICAL/SURGICAL HISTORY: Cardiovascular disease. Hypertension. Diabetes. Reflux, dialysis. CABG. Appendectomy. Cholecystectomy. RADIATION DOSE: 17.02 CTDI (mGy) ; Patient body habitus COMPARISON: [facility] [place], CT ABDOMEN & PELVIS W/O CONTRAST, 09/06/2017. . TECHNIQUE: Multiple contiguous axial images were obtained through the abdomen. Images were obtained using multiple row detector helical technique. Using automated exposure control and adjustment of the mA and/or kV according to patient size, radiation dose was kept as low as reasonably achievable to o btain optimal diagnostic quality images. DICOM format image data is available electronically for rev iew and comparison. FINDINGS: Lower chest: There is a small right pleural effusion with associated compressive atelectasis in the r ight lower lobe. In the right lower lobe there is a stable 10 mm noncalcified pulmonary nodule. In th e left lower lobe there is a stable calcified 10 mm nodule. Severe coronary artery calcification is p resent. Hepatobiliary: No focal lesion is identified on this noncontrast examination. Gallbladder is not visu alized. Kidneys: No hydronephrosis, stone, or mass. There is a 15 mm low-density lesion in the left mid kidne y with density measurements consistent with a simple cyst. Adrenal Glands: Within normal limits. Spleen: Within normal limits. Pancreas: Within normal limits. Vascular: The aorta is nonaneurysmal. There is severe atherosclerotic disease. Bowel/Mesentery: Stomach and small bowel demonstrate no acute finding. No acute colon abnormality is seen. There is trace free fluid in the left paracolic gutter. Abdominal Wall: No hernia is visualized. There is diffuse subcutaneous edema. Retroperitoneum: No lymphadenopathy. Bladder: No wall thickening or mass. Reproductive: No acute abnormality. Inguinal: No lymphadenopathy or hernia. Musculoskeletal: No acute osseous abnormality is identified. There are degenerative changes of the emeka mbar spine. CONCLUSION: 1. No acute finding is identified to explain the clinical symptoms. There is trace free fluid in the left paracolic gutter. 2. Anasarca. 3. Small right pleural effusion with compressive atelectasis in the right lower lobe. The 10 mm righ t lower lobe pulmonary nodule is stable. As recommended previously, suggest follow-up to confirm stab ility. 4. Severe atherosclerotic disease. Electronically signed by: Rosendo Ngo MD 11/15/2017 4:00 PM EDT
[2017-11-15 16:28] VITALS: BP 169/74; PULSE 67; RESP 20; O2SAT 99
[2017-11-15] MEDS ORDERED: ONDANSETRON ODT 4 MG TAB PO ONE (16:30)
[2017-11-15] MEDS ORDERED: PROCHLORPERAZINE INJ 10 MG/2 ML VIAL IV PUSH ONE (16:30)
[2017-11-15] MEDS ORDERED: SENNOSIDES 8.6 MG TAB PO PRN (17:15)
[2017-11-15] MEDS ORDERED: SODIUM CHLORIDE 0.9% FLUSH 10 ML FLUSH IV FLUSH PRN (17:15)
[2017-11-15] MEDS ORDERED: NALOXONE HCL 0.4 MG/ML AMP IV PUSH PRN (17:15)
[2017-11-15] MEDS ORDERED: LACTULOSE SYRUP 20 GM/30 ML CUP PO PRN (17:15)
[2017-11-15] MEDS ORDERED: MAGNESIUM HYDROXIDE SUSP 30 ML CUP PO PRN (17:15)
[2017-11-15] MEDS ORDERED: BISACODYL 10 MG SUPP RECTAL PRN (17:15)
[2017-11-15] MEDS ORDERED: ACETAMINOPHEN/HYDROcodone 325 MG/7.5 MG TAB PO PRN (17:30)
[2017-11-15] MEDS ORDERED: METOCLOPRAMIDE HCL 10 MG/2 ML VIAL IVS PRN (17:30)
[2017-11-15] MEDS ORDERED: PILL SPLITTER OTHER PRN (17:45)
[2017-11-15] MEDS: CINACALCET HYDROCHLORIDE 30 MG TAB PO SCH (18:00)
[2017-11-15] MEDS ORDERED: cefTRIAXone INJ 1,000 MG in SODIUM CHLORIDE 0.9% INJ 100 ML IV SCH (18:00)
[2017-11-15] MEDS: PROMETHAZINE INJ 25 MG/ML VIAL IM PRN (18:07)
[2017-11-15] MEDS ORDERED: ZINC OXIDE 20% OINT 30 GM TUBE TOPICAL PRN (19:45)
--- NOTE | 2017-11-15 20:27 | HHI.HP ---
HPI Service [facility] Primary Care Physician Anila (Garret) MD Aden Admission Diagnosis intractable nausea and vomiting Diagnoses: Chief Complaint: Nausea vomiting diarrhea Travel History International Travel<30 Days: No Contact w/Intl Traveler <30 Da: No Traveled to Known Affected Are: No History of Present Illness 72-year-old female with a history of ESRD on hemodialysis, CAD status post CABG , hypertension, hyperlipidemia, hypothyroid, PVD, diabetes, diabetic neuropathy , CVA who recently underwent a left femoral bypass and femoral artery endarterectomy on 09/26/[address] Brothers for bilateral lower extremity ulcerations. Patient was sent to rehab and discharged on Tuesday, presents today with nausea vomiting and diarrhea. Patient states she has just been feeling very weak and having diarrhea every time she goes to the bathroom. She denies any associated fevers or chills at home. States she has had home health care for her multiple wounds that are due to be changed tonight. For her left groin wound she does follow with Dr. Brothers. In rehab she was followed by Dr. Vega who stated patient was a poor candidate for graft, and was managed by podiatry who recommended amputation for her left heel but it was decided against and conservative management was taken. Review of Systems Except as stated in HPI: all other systems reviewed are Neg Past Family Social History Past Medical History Cerebrovascular accident 3 Osteoarthritis Hypertension Congestive heart failure Hemodialysis on Tuesday Renal failure end-stage renal disease Hypothyroidism Diabetes Diabetic retinopathy Insulin pump Past Surgical History Femoral popliteal bypass and debridement of femoral-popliteal bypass site in August 2017 Coronary artery disease with CABG 3 Cholecystectomy Appendectomy Cataracts bilaterally Right upper extremity dialysis graft Reported Medications Reported Meds & Active Scripts Active Eq Acetaminophen (Acetaminophen) 325 Mg Tab 650 Mg PO Q12HR PRN Hydrocodone-Acetamin 5-325 mg (Hydrocodone/Acetaminophen) 5 Mg-325 Mg Tablet 1 Tab PO Q12HR PRN Hydrocodone-Acetamin 7.5-325 (Hydrocodone/Acetaminophen) 7.5 Mg-325 Mg Tablet 1 Tab PO BID PRN [Zinc Oxide 20% Oint] 30 APPLIC/30 GM Oint 1 Applic TOPICAL BID [Aquaphor Oint] 50 APPLIC/50 GM Oint 1 Applic TOPICAL Q12HR Silvadene Topical (Silver Sulfadiazine) 1 % Cream 1 Applic TOPICAL DAILY Levemir Inj (Insulin Detemir) 1,000 unit/ 10 ML Vial 20 Units SQ DAILY 30 Days Do not mix with any other Insulin. Levemir Inj (Insulin Detemir) 1,000 unit/ 10 ML Vial 22 Units SQ HS 30 Days Do not mix with any other Insulin. Ondansetron Odt 4 Mg Tab 4 Mg PO Q4H PRN Hm Loperamide HCl (Loperamide HCl) 2 Mg Cap 4 Mg PO Q6H PRN Gabapentin 100 Mg Cap 200 Mg PO DAILY Atorvastatin (Atorvastatin Calcium) 40 Mg Tab 40 Mg PO HS Zetia (Ezetimibe) 10 Mg Tab 10 Mg PO DAILY Ergocalciferol 50,000 Unit Cap 50,000 Units PO Q14D Sensipar (Cinacalcet) 30 Mg Tab 60 Mg PO WITH DINNER Flagyl (Metronidazole) 500 Mg Tab 500 Mg PO Q8HR Through November 18, 2017. Gnp Vitamin D3 Extra Stre (Cholecalciferol) 1,000 Unit Tab 1,000 Units PO DAILY Acidophilus/l-Sporogenes (Lactobacillus Acidophilus) 35 Million Cell-25 Million Cell Tab 1 Tab PO TID Famotidine 20 Mg Tab 10 Mg PO BID Carvedilol 6.25 Mg Tab 6.25 Mg PO BID Humalog Inj (Insulin Human Lispro) 1,000 Unit/10 Ml Vial 1 Unit SQ ACHS SLIDING SCALE DIRECTED Synthroid (Levothyroxine Sodium) 125 Mcg Tab 125 Mcg PO DAILY Plavix (Clopidogrel Bisulfate) 75 Mg Tab 75 Mg PO DAILY Mycamine Inj (Micafungin Sodium) 100 Mg Inj 100 Mg IV DAILY Wheelchair (Device) 1 Mis Mis Ea .XX DIRECTED Commode 3-in-1 (Device) 1 Mis Mis Ea .XX DIRECTED Oxygen tank (Oxygen) 1 Ea Tank Liter FLORINDA.CANULA CONTINUOUS Oxygen Concentrator Portable Gaseous 2 L/min via Nasal Cannula Continuous For 99 months Oxygen (O2) Device Liter FLORINDA.CANULA CONTINUOUS PRN Oxygen Concentrator Portable Gaseous 2 L/min via Nasal Canula Continuous For 99 months Reported [Rocephin] 1 Gm IV DAILY Procrit Inj (Epoetin Dio) 2,000 Unit/Ml Inj 1,000 Units SQ TUESDAY Allergies: Coded Allergies: amlodipine (Unverified Allergy, Severe, 11/15/17) adhesive tape (Verified Allergy, Unknown, Generalized Itching, 11/15/17) Redness Active Ordered Medications Current Medications Medications (Trade) Dose Ordered Sig/Julius Route Start Time Stop Time Status Last Admin (NS Flush) 2 ml UNSCH PRN IV FLUSH 11/15/17 17:15 (NS Flush) 2 ml BID IV FLUSH 11/15/17 21:00 (Narcan Inj) 0.4 mg UNSCH PRN IV PUSH 11/15/17 17:15 (Milk Of Magnesia Liq) 30 ml Q12H PRN PO 11/15/17 17:15 (Senokot) 17.2 mg Q12H PRN PO 11/15/17 17:15 (Dulcolax Supp) 10 mg DAILY PRN RECTAL 11/15/17 17:15 (Lactulose Liq) 30 ml DAILY PRN PO 11/15/17 17:15 (Lipitor) 40 mg HS PO 11/15/17 21:00 (Coreg) 6.25 mg BID PO 11/15/17 21:00 (Sensipar) 60 mg WITH DINNER PO 11/15/17 18:00 (Plavix) 75 mg DAILY PO 11/16/17 09:00 (Zetia) 10 mg DAILY PO 11/16/17 09:00 (Pepcid) 10 mg BID PO 11/15/17 21:00 ([place] 7.5-325 Mg) 1 tab BID PRN PO 11/15/17 17:30 (Levemir Inj) 20 units DAILY SQ 11/16/17 09:00 (Levemir Inj) 22 units HS SQ 11/15/17 21:00 (Synthroid) 125 mcg DAILY@0600 PO 11/16/17 06:00 (Flagyl) 500 mg Q8HR PO 11/15/17 22:00 Ceftriaxone Sodium 1000 mg/ Sodium Chloride 100 ml @ 200 mls/hr Q24H IV 11/15/17 18:00 11/15/17 18:07 Micafungin Sodium 100 mg/Sodium Chloride 100 ml @ 100 mls/hr Q24H IV 11/16/17 09:00 (Reglan Inj) 5 mg Q6H PRN IVS 6/19/18 17:30 (Phenergan Inj) 25 mg Q6H PRN IM 11/15/17 17:30 11/15/17 18:07 (Pill Splitter) 1 ea UNSCH PRN OTHER 11/15/17 17:45 Family History Mother at age 72 with lung cancer was a smoker Father in his 80s due to congestive heart failure Social History Denies any tobacco, alcohol, or illicit drug use. 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 Physical Exam Vital Signs Vital Signs Date Time Temp Pulse Resp B/P (MAP) Pulse Ox O2 Delivery O2 Flow Rate FiO2 11/15/17 16:28 67 20 169/74 (105) 99 Room Air 11/15/17 14:39 16 97 Room Air 11/15/17 14:00 97.7 65 16 168/70 (102) 99 Physical Exam GENERAL: This is a well-developed obese female, in no apparent distress. SKIN: No rashes, ecchymoses. Cool and dry. Left groin large wound with dry and intact dressing, Left thigh jessika dry and intact with mid to lower surgical site dehiscence noted covered with gauze. HEAD: Atraumatic. Normocephalic. EYES: Pupils equal round and reactive. No scleral icterus. No injection or drainage. CARDIOVASCULAR: Regular rate and rhythm without murmurs, gallops, or rubs. RESPIRATORY: Clear to auscultation. Breath sounds equal bilaterally. No wheezes , rales, or rhonchi. GASTROINTESTINAL: Abdomen soft, non-tender, nondistended. No guarding. Normal active bowel MUSCULOSKELETAL: Extremities without clubbing, cyanosis. No joint tenderness, effusion, or edema noted. No calf tenderness. Bilateral lower extremity edema + 3 pitting. Right heel dressing intact covered with Santyl. NEUROLOGICAL: Awake and alert, oriented 3. Normal speech. Laboratory Laboratory Tests Test 11/15/17 14:20 White Blood Count 14.0 Red Blood Count 3.99 Hemoglobin 12.0 Hematocrit 37.9 Mean Corpuscular Volume 95.0 Mean Corpuscular Hemoglobin 30.1 Mean Corpuscular Hemoglobin Concent 31.7 Red Cell Distribution Width 22.1 Platelet Count 410 Mean Platelet Volume 7.2 Neutrophils (%) (Auto) 83.7 Lymphocytes (%) (Auto) 8.9 Monocytes (%) (Auto) 6.3 Eosinophils (%) (Auto) 0.1 Basophils (%) (Auto) 1.0 Neutrophils # (Auto) 11.7 Lymphocytes # (Auto) 1.2 Monocytes # (Auto) 0.9 Eosinophils # (Auto) 0.0 Basophils # (Auto) 0.1 CBC Comment DIFF FINAL Differential Comment Blood Urea Nitrogen 31 Creatinine 4.37 Random Glucose 192 Total Protein 7.5 Albumin 3.1 Calcium Level 8.9 Alkaline Phosphatase 258 Aspartate Amino Transf (AST/SGOT) 17 Alanine Aminotransferase (ALT/SGPT) 10 Total Bilirubin 0.6 Sodium Level 135 Potassium Level 4.5 Chloride Level 97 Carbon Dioxide Level 23.3 Anion Gap 15 Estimat Glomerular Filtration Rate 10 Lipase 146 Result Diagram: 11/15/17 1420 11/15/17 1420 Imaging Last Impressions Abdomen/Pelvis CT 11/15/17 0000 Signed Impressions: CONCLUSION: 1. No acute finding is identified to explain the clinical symptoms. There is t race free fluid in the left paracolic gutter. 2. Anasarca. 3. Small right pleural effusion with compressive atelectasis in the right lowe r lobe. The 10 mm right lower lobe pulmonary nodule is stable. As recommended p reviously, suggest follow-up to confirm stability. 4. Severe atherosclerotic disease. Caprini VTE Risk Assessment Caprini VTE Risk Assessment: No/Low Risk (score <= 1) Caprini Risk Assessment Model Point Value = 1 Point Value = 2 Point Value = 3 Point Value = 5 Age 41-60 Minor surgery BMI > 25 kg/m2 Swollen legs Varicose veins or History of unexplained or recurrent spontaneous Oral contraceptives or hormone replacement Sepsis (< 1 month) Serious lung disease, including pneumonia (< 1 month) Abnormal pulmonary function Acute myocardial infarction Congestive heart failure (< 1 month) History of inflammatory bowel disease Medical patient at bed rest Age 61-74 Arthroscopic surgery Major open surgery (> 45 min) Laparoscopic surgery (> 45 min) Malignancy Confined to bed (> 72 hours) Immobilizing plaster cast Central venous access Age >= 75 History of VTE Family history of VTE Factor V Leiden Prothrombin [id number] Lupus anticoagulant Anticardiolipin antibodies Elevated serum homocysteine Heparin-induced thrombocytopenia Other congenital or acquired thrombophilia Stroke (< 1 month) Elective arthroplasty Hip, pelvis, or leg fracture Acute spinal cord injury (< 1 month) Prophylaxis Regimen Total Risk Factor Score Risk Level Prophylaxis Regimen 0-1 Low Early ambulation 2 Moderate Order ONE of the following: *Sequential Compression Device (SCD) *Heparin 5000 units SQ BID 3-4 Higher Order ONE of the following medications: *Heparin 5000 units SQ TID *Enoxaparin/Lovenox 40 mg SQ daily (WT < 150 kg, CrCl > 30 mL/min) *Enoxaparin/Lovenox 30 mg SQ daily (WT < 150 kg, CrCl > 10-29 mL/min) *Enoxaparin/Lovenox 30 mg SQ BID (WT < 150 kg, CrCl > 30 mL/min) AND/OR *Sequential Compression Device (SCD) 5 or more Highest Order ONE of the following medications: *Heparin 5000 units SQ TID (Preferred with Epidurals) *Enoxaparin/Lovenox 40 mg SQ daily (WT < 150 kg, CrCl > 30 mL/min) *Enoxaparin/Lovenox 30 mg SQ daily (WT < 150 kg, CrCl > 10-29 mL/min) *Enoxaparin/Lovenox 30 mg SQ BID (WT < 150 kg, CrCl > 30 mL/min) AND *Sequential Compression Device (SCD) Assessment and Plan Assessment and Plan 72-year-old female with a history of ESRD on hemodialysis, CAD status post CABG , hypertension, hyperlipidemia, hypothyroid, PVD, diabetes, diabetic neuropathy , CVA who recently underwent a left femoral bypass and femoral artery endarterectomy on 09/26/[address] Brothers for bilateral lower extremity ulcerations. Patient was sent to rehab and discharged on Tuesday, presents today with nausea vomiting and diarrhea. Nausea, vomiting, diarrhea, with leukocytosis, WBC [address] shows a small pleural effusion, unremarkable abdomen -Antiemetics as needed -C. difficile ordered AK I on chronic CKD, creatinine 4.3, baseline 3.8 -Consult nephrology patient is a dialysis patient -Monitor creatinine -Avoid nephrotoxins Chronic left groin wound, and bilateral heels -Dr. Vega had recommended Dakin's solution 0.25% to the wound to be changed twice daily along with zinc oxide around the wound edges for protection against the moisture -podiatry had recommended Betadine moistened gauze with DSD to left fifth digit ulceration in between toes and Silvadene with DSD to left and right posterior heel ulceration. -Consult wound care for additional recommendations -Consult infectious disease -IV antibiotics Rocephin and micafungin, PO Flagyl -Pain management with po norco -Doppler US r/o DVT DM, chronic -Accu checks with SSI -Cont home long acting insulin DVT prophylaxis: Heparin Discussed Condition With Patient and RN Mouna Caballero Nov 15, 2017 20:27
[2017-11-15 20:42] VITALS: BP 166/73; PULSE 66; RESP 17; TEMP 98.5; O2SAT 97
[2017-11-15] MEDS: INSULIN ASPART SUPPLEMENTAL SCALE SQ SCH ×2 (21:00→22:02)
[2017-11-15] MEDS: SODIUM HYPOCHLORITE 0.25% 500 ML BTL TOPICAL SCH (21:00)
[2017-11-15] MEDS ORDERED: DEXTROSE 50% IN WATER 50 ML VIAL(D50) IV PUSH PRN (21:00)
[2017-11-15] MEDS ORDERED: GLUCAGON 1 MG/ML VIAL OTHER PRN (21:00)
--- NOTE | 2017-11-15 21:45 | RADRPT ---
EXAM DATE: 11/15/2017 9:41 PM EDT AGE/SEX: 72 years / Female INDICATIONS: Left lower extremity edema. CLINICAL DATA: This is the patient's subsequent encounter. Patient reports that signs and symptoms h ave been present for 2 months and indicates a pain score of 4/10. MEDICAL/SURGICAL HISTORY: Hypertension. Congestive heart failure. Cardiovascular disease. Th yroid disease. CVA. GERD. Dialysis. Renal failure. Diabetic. Liver disease . AV fistula right arm. L eft Fem-Pop Graft - 2017. COMPARISON: [facility] [place]ENOUS [place] 09/06/2017. . TECHNIQUE: Venous ultrasound of both lower extremities was performed from the inguinal ligament to t he proximal calf. Real-time, color Doppler and spectral tracing, compression and augmentation techni ques were used. FINDINGS: There is very limited evaluation of the common femoral vein and proximal femoral vein due t o open wound with wound VAC in place. There is normal compressibility of the mid to distal femoral ve in the proximal calf. No echogenic clot is seen in the lumen of the mid to distal femoral, popliteal , and posterior tibial veins. There is a normal response of the venous system to proximal and distal augmentation and respiration. CONCLUSION: 1. Very limited evaluation of the common femoral and proximal femoral veins, as above. 2. Otherwise, no evidence for left lower extremity DVT. Electronically signed by: Alvarez Sow MD 11/15/2017 9:43 PM EDT
[2017-11-15] MEDS: FAMOTIDINE 20 MG TAB PO SCH ×2 (21:49→23:30)
[2017-11-15] MEDS: metroNIDAZOLE 500 MG TAB PO SCH ×2 (21:50→23:28)
[2017-11-15] MEDS: CARVEDILOL 6.25 MG TAB PO SCH ×2 (21:50→23:29)
[2017-11-15] MEDS: ATORVASTATIN 40 MG TAB PO SCH ×2 (21:50→23:30)
[2017-11-15] MEDS: INSULIN DETEMIR 100 UNITS/ML VIAL SQ SCH (21:54)
[2017-11-15] MEDS: SODIUM CHLORIDE 0.9% FLUSH 10 ML FLUSH IV FLUSH SCH (22:02)
[2017-11-15] MEDS: HEPARIN SODIUM - SQ 10,000 UNITS/ML VIAL SQ SCH (22:02)
[2017-11-16] VITALS (7 sets, daily range): BP systolic 132–170; BP diastolic 65–89; PULSE 62–69; RESP 16–20; TEMP 97.5–98.4; O2SAT 96–98
[2017-11-16] MEDS: PROMETHAZINE INJ 25 MG/ML VIAL IM PRN ×2 (02:29→09:32)
[2017-11-16] MEDS: LEVOTHYROXINE SODIUM 125 MCG TAB PO SCH (06:00)
[2017-11-16] MEDS: SODIUM HYPOCHLORITE 0.25% 500 ML BTL TOPICAL SCH ×3 (06:28→21:00)
[2017-11-16] MEDS: SILVER SULFADIAZINE 1% CR 400 GM JAR TOPICAL SCH ×2 (06:30→21:00)
[2017-11-16 07:30] LABS: AUTOMATED NEUTROPHIL # 9.5 TH/MM3 (1.8-7.7); BASOPHIL # 0.1 TH/MM3 (0-0.2); BASOPHIL % 0.7 % (0.0-2.0); HEMATOCRIT 39.2 % (35.0-46.0); HEMOGLOBIN 12.4 GM/DL (11.6-15.3); LYMPH % 11.8 % (9.0-44.0); LYMPHOCYTE # 1.4 TH/MM3 (1.0-4.8); MEAN CELL VOLUME 96.3 FL (80.0-100.0); MEAN CORPUSCULAR HEMOGLOBIN 30.4 PG (27.0-34.0); MEAN CORPUSCULAR HGB CONC 31.6 % (32.0-36.0); MEAN PLATELET VOLUME 7.5 FL (7.0-11.0); MONOCYTE # 1.1 TH/MM3 (0-0.9); NEUT % 78.5 % (16.0-70.0); PLATELET COUNT 381 TH/MM3 (150-450); RED BLOOD COUNT 4.07 MIL/MM3 (4.00-5.30); RED CELL DISTRIBUTION WIDTH 22.7 % (11.6-17.2); WHITE BLOOD COUNT 12.1 TH/MM3 (4.0-11.0)
[2017-11-16] MEDS: INSULIN ASPART SUPPLEMENTAL SCALE SQ SCH ×4 (08:00→21:00)
[2017-11-16 08:02] LABS: ALKALINE PHOSPHATASE 252 U/L (45-117); ALT (GPT) 7 U/L (10-53); AST (GOT) 20 U/L (15-37); BICARBONATE 25.4 MEQ/L (21.0-32.0); BLOOD UREA NITROGEN 38 MG/DL (7-18); CALCIUM 9.2 MG/DL (8.5-10.1); CHLORIDE 99 MEQ/L (98-107); CREATININE 4.97 MG/DL (0.50-1.00); GLOMERULAR FILTRATION RATE 9 ML/MIN (>89); GLUCOSE,RANDOM 172 MG/DL (74-106); SODIUM (NA) 139 MEQ/L (136-145); TOTAL BILIRUBIN ADULT 0.6 MG/DL (0.2-1.0); TOTAL PROTEIN 7.2 GM/DL (6.4-8.2)
[2017-11-16] MEDS ORDERED: SODIUM CHLOR 0.9% 1000 ML INJ 1,000 ML OTHER PRN ×2 (08:57)
[2017-11-16] MEDS ORDERED: SODIUM CHLOR 0.9% 1000 ML INJ 1,000 ML IV PRN (08:57)
[2017-11-16] MEDS: INSULIN DETEMIR 100 UNITS/ML VIAL SQ SCH ×2 (09:00→22:19)
[2017-11-16] MEDS ORDERED: HEPARIN SODIUM - IV 10,000 UNITS/10 ML VIAL IV FLUSH PRN (09:00)
[2017-11-16] MEDS ORDERED: ONDANSETRON ODT 4 MG TAB PO PRN (09:00)
[2017-11-16] MEDS ORDERED: MICAFUNGIN 100 MG/NS 100 ML IV SCH ×2 (09:00)
[2017-11-16] MEDS ORDERED: ACETAMINOPHEN 325 MG TAB PO PRN (09:00)
[2017-11-16] MEDS ORDERED: HEPARIN SODIUM - IV 10,000 UNITS/10 ML VIAL PRN (09:00)
[2017-11-16] MEDS ORDERED: MANNITOL 12.5 GM/50 ML VIAL IV PRN (09:00)
[2017-11-16] MEDS ORDERED: NITROGLYCERIN 0.4 MG SL 25 TABS/BTL SL PRN (09:00)
[2017-11-16] MEDS ORDERED: GELATIN 12 MM/7 MM FOAM TOP PRN (09:00)
[2017-11-16] MEDS ORDERED: ALBUMIN 25% INJ 100 ML IV PRN (09:00)
[2017-11-16] MEDS ORDERED: cloNIDine HCL 0.1 MG TAB PO PRN (09:00)
[2017-11-16] MEDS ORDERED: MICAFUNGIN SODIUM 100 MG VIAL IV SCH (09:00)
[2017-11-16] MEDS ORDERED: SODIUM CHLORIDE 0.9% FLUSH 10 ML FLUSH IV FLUSH PRN (09:00)
[2017-11-16] MEDS ORDERED: GENTAMICIN SULFATE 20 MG/2 ML VIAL OTHER PRN (09:00)
[2017-11-16] MEDS ORDERED: diphenhydrAMINE HCL 25 MG CAP PO PRN (09:00)
[2017-11-16] MEDS: CLOPIDOGREL 75 MG TAB PO SCH (09:31)
[2017-11-16] MEDS: EZETIMIBE 10 MG TAB PO SCH (09:31)
[2017-11-16] MEDS: HEPARIN SODIUM - SQ 10,000 UNITS/ML VIAL SQ SCH ×2 (09:32→22:19)
[2017-11-16] MEDS: SODIUM CHLORIDE 0.9% FLUSH 10 ML FLUSH IV FLUSH SCH ×2 (09:32→22:17)
--- NOTE | 2017-11-16 12:41 | MB ---
cc: Bernardo Corrales MD DATE: 11/16/2017 REQUESTING PHYSICIAN: Dr. Fonseca. REASON FOR CONSULTATION: On daptomycin for groin wound. HISTORY OF PRESENT ILLNESS: This is a 72-year-old white female who was recently discharged from [facility] 4 days ago. The patient was receiving IV antibiotics for a left groin open wound, which had grew ____ VRE, Klebsiella and Rosa glabrata. She has been receiving IV antibiotics throughout her stay at [place] and during prior hospitalization as well. She also has been getting wound care treatments to the wound. The patient was also being treated with metronidazole prophylactically. The patient developed nausea and vomiting yesterday morning and she also had pain in her abdomen and what her describes as rumbling in the abdomen as well. She continued with nausea and dry heaves throughout yesterday and it is reported that she had diarrhea as well. She, however, tells me this morning that her stools were loose, but somewhat formed. She was sent to the emergency department for evaluation. She had 1 episode of vomiting when she arrived at the emergency department yesterday evening. Currently, she feels slightly better. She has no complaints of pain in the groin. She has no chills or fever. She is somewhat sleepy currently. She undergoes hemodialysis and is due to have hemodialysis treatment today. I have discussed the case regarding the nausea and the diarrhea yesterday with Dr. Brothers and it was decided that a stool sample should be taken if the diarrhea persisted. The patient is afebrile. CBC drawn yesterday evening revealed white count of 14.0 and today, white count is 12.1. Liver function test is normal. Today, she has no abdominal pain. The patient's states that her food intake was of normal foods. She states that she did well after she was discharged 4 days ago for the first 2 days. PAST MEDICAL HISTORY: Hypertension, diabetes mellitus, coronary artery disease, peripheral vascular disease, hyperlipidemia, end-stage renal disease, left femoral artery bypass graft done on 08/31/2017. ALLERGIES 1. AMLODIPINE. 2. ADHESIVE TAPE. MEDICATIONS: 1. Ceftriaxone. 2. Micafungin. 3. Daptomycin. 4. Metronidazole. 5. Zetia. 6. Plavix. 7. Levemir. 8. Zofran. 9. Synthroid. 10. Lipitor. 11. Coreg. 12. Pepcid. 13. Zinc oxide topical. 14. Sensipar. 15. [place] 7.5 hours p.r.n. 16. Phenergan p.r.n. SOCIAL HISTORY: The patient is . No tobacco. No alcohol. No illicit drugs. FAMILY HISTORY: Noncontributory. REVIEW OF SYSTEMS: CONSTITUTIONAL: No fever or chills. HEAD, EARS, EYES, NOSE AND THROAT: No difficulty, blurring or diplopia. No nasal bleeding. No difficulty swallowing. NECK: No neck pain or swelling. CARDIOVASCULAR: No palpitation or chest pain. RESPIRATORY: No cough or shortness of breath. GASTROINTESTINAL: Positive for nausea, vomiting, and abdominal pain. GENITOURINARY: Denies urgency, frequency or dysuria. HEMATOPOIETIC: No easy bruising or bleeding. MUSCULOSKELETAL: Pain occurs in the left groin with dressing changes of the wound. ENDOCRINE: No polyuria or polydipsia. INTEGUMENTARY: No skin rash. Edema of the left lower extremity. NEUROLOGIC: Denies problems with coordination. PSYCHIATRIC: Denies mood changes. PHYSICAL EXAMINATION: GENERAL: Well-developed female who is in no acute distress. She is somewhat somnolent. VITAL SIGNS: Includes temperature 97.6, BP 149/69, heart rate 67, respirations 18. HEENT: Head is atraumatic. Extraocular movements grossly intact. Pupils reactive to light. No icterus. Oropharynx moist mucosa without lesions. NECK: Supple without adenopathy. LUNGS: Clear breath sounds. HEART: Regular S1 and S2, without audible murmurs, rubs or gallops. ABDOMEN: Obese, soft, no tenderness appreciated. No palpable mass. RECTAL: Not performed. EXTREMITIES: Left upper thigh and groin region has a large ulceration which has good granulation tissue and some fatty slough interspersed. The wound is clean and has no erythema. The left leg has 1+ edema including the tibia and proximal thigh. The right heel has a scabbed dry wound, which does not appear infected. The left fifth toe has mild erythema, but does not appear infected. SKIN: No rash. NEUROLOGIC: No gross focal findings. PSYCHIATRIC: The patient is calm and cooperative. LABORATORY DATA: WBC 12.1, platelets 381, hemoglobin 12.4, 78% neutrophils. Creatinine 4.97, BUN 38, estimated GFR of 9, sodium 139, alkaline phosphatase 252. IMAGING STUDIES: A CT scan of the abdomen showed no acute finds. Trace free fluid in the left paracolic gutter. Anasarca and severe atherosclerotic disease and also a 10 mm right lower lobe pulmonary nodule, which is noted to be stable. IMPRESSION: 1. Intractable nausea with some vomiting. 2. Left groin wound infection, being treated with IV antibiotics and appears to be improving. The wound looks clean. 3. End-stage renal disease. The patient undergoes hemodialysis. 4. Leukocytosis. The patient was due to complete the IV antibiotics on 11/18/2017. She has also been receiving the metronidazole, which sometimes can cause nausea and vomiting. She has no signs suggesting sepsis currently. RECOMMENDATIONS: 1. Discontinue micafungin. 2. Discontinue ceftriaxone. 3. Stop daptomycin. 4. Discontinue metronidazole. 5. Follow C. difficile stool testing if obtained. However, the patient does not have sean diarrhea. 6. Continue wound care. 7. Monitor response to treatment. Thank you for this consultation. I will monitor the patient's progress with you and make further recommendations if necessary. MD INGA Campuzano/DARON , 11:53 AM , 12:40 PM
--- NOTE | 2017-11-16 15:24 | HHI.PR ---
Subjective Remarks Follow-up on patient with nausea, vomiting and diarrhea. Patient seen and examined. Patient continues to have some mild nausea however she has not had any further episodes of vomiting. She was able to eat some breakfast without any difficulty. She denies any fever or chills. She denies any chest pain or shortness of breath. She has not had any further episodes of diarrhea. Patient states she was supposed to be seen by her surgeon Dr. Brothers today for follow-up appointment and would like for him to come by and see her while she is in the hospital. She complains of generalized weakness. Objective Vitals Vital Signs Date Time Temp Pulse Resp B/P (MAP) Pulse Ox O2 Delivery O2 Flow Rate FiO2 11/16/17 07:40 97.6 67 18 149/69 (95) 98 11/16/17 04:19 98.2 69 17 170/75 (106) 97 11/16/17 00:11 98.4 69 18 132/89 (103) 97 11/15/17 20:42 98.5 66 17 166/73 (104) 97 11/15/17 16:28 67 20 169/74 (105) 99 Room Air I/O 11/15/17 11/15/17 11/15/17 11/16/17 11/16/17 11/16/17 07:00 15:00 23:00 07:00 15:00 23:00 Intake Total 600 ml Balance 600 ml Intake IV Total 600 ml Result Diagram: 11/16/17 0622 11/16/17 0622 Imaging Last Impressions Lower Extremity Ultrasound 11/15/17 0000 Signed Impressions: CONCLUSION: 1. Very limited evaluation of the common femoral and proximal femoral veins, a s above. 2. Otherwise, no evidence for left lower extremity DVT. Abdomen/Pelvis CT 11/15/17 0000 Signed Impressions: CONCLUSION: 1. No acute finding is identified to explain the clinical symptoms. There is t race free fluid in the left paracolic gutter. 2. Anasarca. 3. Small right pleural effusion with compressive atelectasis in the right lowe r lobe. The 10 mm right lower lobe pulmonary nodule is stable. As recommended p reviously, suggest follow-up to confirm stability. 4. Severe atherosclerotic disease. Objective Remarks GENERAL: This is a well-developed obese female, in no apparent distress. Lethargic after taking pain medication but able to appropriately answer questions. is at the bedside. SKIN: No rashes, ecchymoses. Cool and dry. + Large left groin wound approximately 10x8cm with mild erythema noted along wound edges and yellowish exudate in the wound bed. Incision along lower left leg anteriorly appears to be healing well with some jessika still in place. HEAD: Atraumatic. Normocephalic. EYES: Pupils equal round and reactive. No scleral icterus. No injection or drainage. CARDIOVASCULAR: Regular rate and rhythm without murmurs, gallops, or rubs. RESPIRATORY: Nonlabored. Clear to auscultation. Breath sounds equal bilaterally. No wheezes, rales, or rhonchi. GASTROINTESTINAL: Abdomen soft, non-tender, nondistended. No guarding. Normal active bowel sounds noted. MUSCULOSKELETAL: Extremities without clubbing or cyanosis. No calf tenderness. Bilateral lower extremity edema +1 pitting. Right heel dressing intact covered with Santyl. NEUROLOGICAL: Awake, lethargic, oriented 3. Able to move all extremities spontaneously. No focal neurologic finding appreciated. Normal speech. PSYCHIATRIC: Calm and cooperative. A/P Assessment and Plan 72-year-old female with a history of ESRD on hemodialysis, CAD status post CABG , hypertension, hyperlipidemia, hypothyroid, PVD, diabetes, diabetic neuropathy , CVA who recently underwent a left femoral bypass and femoral artery endarterectomy on 09/26/[address] Brothers for bilateral lower extremity ulcerations. Patient was sent to rehab and discharged on Tuesday, presents today with nausea vomiting and diarrhea. Nausea, vomiting, diarrhea, with leukocytosis, WBC 14, uncertain etiology, possibly medication side effect, patient is on multiple IV antibiotics and p.o. Flagyl CT the abdomen and pelvis reveals anasarca, small right pleural effusion, stable 10 mm right lower lobe pulmonary nodule -Patient is improving. Able to tolerate some breakfast. -Continue antiemetics as needed -C. difficile ordered but unable to obtain specimen secondary to diarrhea resolving -IS and acapella at bedside, encourage use -monitor Leukocytosis, multifactorial, suspect secondary to left groin infection and active nausea/vomiting White count improving, dropped from 14-12.1 Patient is afebrile -Continue to monitor white count as indicated ESRD on HD MWF Hyperkalemia, K 5.9 -Consult nephrology, appreciate assistance -Patient to have hemodialysis today -repeat K level after HD today -Avoid nephrotoxins -monitor on telemetry Left groin wound infection, cultures positive for VRE, MDR, Klebsiella and Rosa glabrata On outpatient IV antibiotic treatment to be completed 11/18/[address] Vega had recommended Dakin's solution 0.25% to the wound to be changed twice daily along with zinc oxide around the wound edges for protection against the moisture Podiatry had recommended Betadine moistened gauze with DSD to left fifth digit ulceration in between toes and Silvadene with DSD to left and right posterior heel ulceration. -Consult wound care for additional recommendations -Infectious disease following, appreciate assistance. Per ID, all antibiotics discontinued. -Pain management with po norco -multipolus boots, float heels off bed PVD Recent left femoral bypass and femoral artery endarterectomy on 09/26/[address] Brothers -Patient states that she had a follow-up appointment with Dr. Brothers's office scheduled for today and is requesting that she be seen while in the hospital -Consult placed to Dr. Brothers, appreciate assistance -continue on Plavix -continue with PT Hypertension, controlled Hx CVA Hx CABGx3 -Continue Coreg 6.25 mg twice daily, Lipitor 40 mg nightly, Zetia 10 mg nightly, and Plavix 75 mg daily -continue to monitor Left lower extremity edema, suspect postoperative response Doppler study negative for DVT -Elevate legs while in bed DM, chronic Blood sugars adequately controlled -Accu checks with SSI -Cont home long acting insulin Hypothyroidism -Continue on home dose of Synthroid -obtain TSH level DVT prophylaxis: Heparin Discharge Planning Patient is not ready for discharge. Discharge pending infectious disease and nephrology clearance. Yane Lr Nov 16, 2017 15:24
[2017-11-16] MEDS: CINACALCET HYDROCHLORIDE 30 MG TAB PO SCH (16:58)
--- NOTE | 2017-11-16 18:58 | PD.CONS ---
HPI Consult Requested By Primary Care Physician Anila (Garret) MD [place] History of Present Illness This patient is a 72-year-old female with a history of multiple medical problems including diabetes mellitus, hypertension, end-stage renal disease, anemia renal disease and peripheral vascular disease now recently status post left femoropopliteal bypass after developing subacute occlusion. Patient recently admitted with hematoma/infection complicating the femoropopliteal bypass requiring surgical debridement and subsequently required wound care for the lesion in her groin. Was on antibiotics for prolonged period of time and subsequently was discharged to rehab. Patient was only discharged from rehab this weekend but now presents with complaints of nausea and vomiting. . Infectious disease has seen the patient during this admission and antibiotics apparently no longer indicated. Being evaluated for possible Clostridium difficile but suspicion apparently low. Review of Systems Constitutional: COMPLAINS OF: Fatigue, Change in appetite, DENIES: Diaphoretic episodes, Fever, Weight gain, Weight loss, Chills, Dizziness, Night Sweats Cardiovascular: COMPLAINS OF: Lower Extremity Edema, DENIES: Chest pain, Palpitations, Syncope, Dyspnea on Exertion, PND, Orthopnea, Claudication Gastrointestinal: COMPLAINS OF: Diarrhea (Improved per), Vomiting (Improved.), DENIES: Abdominal pain, Black stools, Bloody stools, Constipation, Nausea, Difficulty Swallowing, Anorexia Past Family Social History Allergies: Coded Allergies: amlodipine (Unverified Allergy, Severe, 11/15/17) adhesive tape (Verified Allergy, Unknown, Generalized Itching, 11/15/17) Redness Past Medical History Cerebrovascular accident 3 Osteoarthritis Hypertension Congestive heart failure Hemodialysis on Tuesday Renal failure end-stage renal disease Hypothyroidism Diabetes Diabetic retinopathy Insulin pump Past Surgical History Femoral popliteal bypass and debridement of femoral-popliteal bypass site in August 2017 Coronary artery disease with CABG 3 Cholecystectomy Appendectomy Cataracts bilaterally Right upper extremity dialysis graft Family History Noncontributory to current complaint. Social History Contributory to current complaint Physical Exam Vital Signs Vital Signs Date Time Temp Pulse Resp B/P (MAP) Pulse Ox O2 Delivery O2 Flow Rate FiO2 11/16/17 16:30 97.5 68 16 159/67 (97) 97 11/16/17 07:40 97.6 67 18 149/69 (95) 98 11/16/17 04:19 98.2 69 17 170/75 (106) 97 11/16/17 00:11 98.4 69 18 132/89 (103) 97 11/15/17 20:42 98.5 66 17 166/73 (104) 97 Physical Exam GENERAL: Somewhat debilitated appearing elderly female lying in bed not in respiratory distress. SKIN: Warm and dry. HEAD: Normocephalic. EYES: No scleral icterus. No injection or drainage. NECK: Supple, trachea midline. No JVD or lymphadenopathy. CARDIOVASCULAR: Regular rate and rhythm without murmurs, gallops, or rubs. RESPIRATORY: Breath sounds equal bilaterally. No accessory muscle use. GASTROINTESTINAL: Abdomen soft, non-tender, nondistended. MUSCULOSKELETAL: No cyanosis, trace edema of the lower legs. Laboratory Laboratory Tests Test 11/16/17 06:22 11/16/17 18:22 White Blood Count 12.1 Red Blood Count 4.07 Hemoglobin 12.4 Hematocrit 39.2 Mean Corpuscular Volume 96.3 Mean Corpuscular Hemoglobin 30.4 Mean Corpuscular Hemoglobin Concent 31.6 Red Cell Distribution Width 22.7 Platelet Count 381 Mean Platelet Volume 7.5 Neutrophils (%) (Auto) 78.5 Lymphocytes (%) (Auto) 11.8 Monocytes (%) (Auto) 9.0 Eosinophils (%) (Auto) 0.0 Basophils (%) (Auto) 0.7 Neutrophils # (Auto) 9.5 Lymphocytes # (Auto) 1.4 Monocytes # (Auto) 1.1 Eosinophils # (Auto) 0.0 Basophils # (Auto) 0.1 CBC Comment DIFF FINAL Differential Comment Blood Urea Nitrogen 38 Creatinine 4.97 Random Glucose 172 Total Protein 7.2 Albumin 3.0 Calcium Level 9.2 Alkaline Phosphatase 252 Aspartate Amino Transf (AST/SGOT) 20 Alanine Aminotransferase (ALT/SGPT) 7 Total Bilirubin 0.6 Sodium Level 139 Potassium Level 5.9 Chloride Level 99 Carbon Dioxide Level 25.4 Anion Gap 15 Estimat Glomerular Filtration Rate 9 Thyroid Stimulating Hormone 3rd Gen 2.310 Result Diagram: 11/16/1762111/16/17621 Assessment and Plan Problem List: (1) ESRD (end stage renal disease) on dialysis ICD Codes: N18.6 - End stage renal disease; Z99.2 - Dependence on renal dialysis Status: Chronic Plan: Patient has had her hemodialysis today as per outpatient schedule. Tolerated same and her volume status has improved significantly since I last saw her. Medication should be adjusted for end-stage renal disease when indicated. Avoid gadolinium Continue hemodialysis Tuesday and Tuesday as per outpatient schedule. (2) Hyperkalemia ICD Codes: E87.5 - Hyperkalemia Status: Acute Plan: Should improve with dialysis today. Follow-up tomorrow. (3) Secondary hyperparathyroidism of renal origin ICD Codes: N25.81 - Secondary hyperparathyroidism of renal origin Status: Chronic (4) Hypertension ICD Codes: I10 - Essential (primary) hypertension Status: Acute (5) Diabetes mellitus type 2 with complications ICD Codes: E11.8 - Type 2 diabetes mellitus with unspecified complications Status: Chronic Kimberly Sampson MD Nov 16, 2017 18:58
[2017-11-16] MEDS: CARVEDILOL 6.25 MG TAB PO SCH (22:18)
[2017-11-16] MEDS: FAMOTIDINE 20 MG TAB PO SCH (22:18)
[2017-11-16] MEDS: ATORVASTATIN 40 MG TAB PO SCH (22:18)
[2017-11-17 03:20] VITALS: BP 142/65; PULSE 61; RESP 20; TEMP 97.8; O2SAT 97
[2017-11-17 08:00] VITALS: BP 168/69; PULSE 63; RESP 17; TEMP 97.6; O2SAT 63
[2017-11-17] MEDS: INSULIN ASPART SUPPLEMENTAL SCALE SQ SCH ×2 (08:00→12:00)
[2017-11-17] MEDS: LEVOTHYROXINE SODIUM 125 MCG TAB PO SCH (08:46)
[2017-11-17] MEDS: FAMOTIDINE 20 MG TAB PO SCH (08:49)
[2017-11-17] MEDS: CLOPIDOGREL 75 MG TAB PO SCH (08:49)
[2017-11-17] MEDS: EZETIMIBE 10 MG TAB PO SCH (08:49)
[2017-11-17] MEDS: HEPARIN SODIUM - SQ 10,000 UNITS/ML VIAL SQ SCH (08:49)
[2017-11-17] MEDS: CARVEDILOL 6.25 MG TAB PO SCH (08:49)
[2017-11-17] MEDS: SODIUM CHLORIDE 0.9% FLUSH 10 ML FLUSH IV FLUSH SCH (08:49)
[2017-11-17] MEDS: SODIUM HYPOCHLORITE 0.25% 500 ML BTL TOPICAL SCH (08:50)
[2017-11-17] MEDS: INSULIN DETEMIR 100 UNITS/ML VIAL SQ SCH (08:50)
[2017-11-17 12:00] VITALS: BP 122/58; PULSE 59; RESP 16; TEMP 97.6; O2SAT 97
[2017-11-17 12:02] LABS: CALCIUM 8.1 MG/DL (8.5-10.1); CREATININE 4.2 MG/DL (0.50-1.00)
--- NOTE | 2017-11-17 14:27 | HHI.IDPN ---
Note Infectious Disease Note Patient says that he feels much better. She has no nausea. No diarrhea. No fever or chills. Reports mild pain in the left groin. White female who was recently discharged from [facility] 4 days prior to presenting to the emergency department. The patient was receiving IV antibiotics for a left groin open wound, which had grew VRE, Klebsiella and Rosa glabrata. She has been receiving IV antibiotics throughout her stay at [place] and during prior hospitalization as well. She also has been getting wound care treatments to the wound. The patient was also being treated with metronidazole prophylactically. The patient developed nausea and vomiting yesterday morning and she also had pain in her abdomen and what her describes as rumbling in the abdomen as well. She continued with nausea and dry heaves throughout yesterday and it is reported that she had diarrhea as well. She, however, tells me this morning that her stools were loose, but somewhat formed. PAST MEDICAL HISTORY: Hypertension, diabetes mellitus, coronary artery disease, peripheral vascular disease, hyperlipidemia, end-stage renal disease, left femoral artery bypass graft done on 08/31/2017. ALLERGIES 1. AMLODIPINE. 2. ADHESIVE TAPE. MEDICATIONS: Current Medications Medications (Trade) Dose Ordered Sig/Julius Route PRN Reason Start Time Stop Time Status Last Admin Dose Admin Sodium Chloride (NS Flush) 2 ml UNSCH PRN IV FLUSH FLUSH AFTER USING IV ACCESS 11/15/17 17:15 Sodium Chloride (NS Flush) 2 ml BID IV FLUSH 11/15/17 21:00 11/17/17 08:49 Naloxone HCl (Narcan Inj) 0.4 mg UNSCH PRN IV PUSH SEE LABEL COMMENTS 11/15/17 17:15 Magnesium Hydroxide (Milk Of Magnesia Liq) 30 ml Q12H PRN PO Mild constipation 11/15/17 17:15 Sennosides (Senokot) 17.2 mg Q12H PRN PO Moderate constipation 11/15/17 17:15 Bisacodyl (Dulcolax Supp) 10 mg DAILY PRN RECTAL SEVERE CONSITIPATION 11/15/17 17:15 Lactulose (Lactulose Liq) 30 ml DAILY PRN PO SEVERE CONSITIPATION 11/15/17 17:15 Atorvastatin Calcium (Lipitor) 40 mg HS PO 11/15/17 21:00 6/20/18 22:18 Carvedilol (Coreg) 6.25 mg BID PO 11/15/17 21:00 11/17/17 08:49 Cinacalcet (Sensipar) 60 mg WITH DINNER PO 11/15/17 18:00 11/16/17 16:58 Clopidogrel Bisulfate (Plavix) 75 mg DAILY PO 11/16/17 09:00 11/17/17 08:49 EZETIMIBE (Zetia) 10 mg DAILY PO 11/16/17 09:00 11/17/17 08:49 Famotidine (Pepcid) 10 mg BID PO 11/15/17 21:00 11/17/17 08:49 Acetaminophen/ Hydrocodone Bitart ([place] 7.5-325 Mg) 1 tab BID PRN PO For wound dressing changes 11/15/17 17:30 11/16/17 06:19 Insulin Detemir (Levemir Inj) 20 units DAILY SQ 11/16/17 09:00 11/17/17 08:50 Insulin Detemir (Levemir Inj) 22 units HS SQ 11/15/17 21:00 11/16/17 22:19 Levothyroxine Sodium (Synthroid) 125 mcg DAILY@0600 PO 11/16/17 06:00 11/16/17 06:00 Metoclopramide HCl (Reglan Inj) 5 mg Q6H PRN IVS NAUSEA OR VOMITING 11/15/17 17:30 Promethazine HCl (Phenergan Inj) 25 mg Q6H PRN IM NAUSEA IF REGLAN INEFFECTIVE 11/15/17 17:30 11/16/17 09:32 Miscellaneous (Pill Splitter) 1 ea UNSCH PRN OTHER SEE LABEL COMMENTS 11/15/17 17:45 Silver Sulfadiazine (Silvadene 1% Cream (400 Gm)) 1 applic DAILY@2100 TOPICAL 11/15/17 21:00 11/16/17 06:30 Sodium Hypochlorite (Dakin'S 0.25% Soln) 50 ml BID TOPICAL 11/15/17 21:00 11/17/17 08:50 Zinc Oxide (Zinc Oxide 20% Oint) 1 applic UNSCH PRN TOPICAL Dressing changes 11/15/17 19:45 Heparin Sodium (Porcine) (Heparin Inj) 5,000 units Q12HR SQ 11/15/17 21:00 11/17/17 08:49 Dextrose (D50w (Vial) Inj) 50 ml UNSCH PRN IV PUSH HYPOGLYCEMIA-SEE COMMENTS 11/15/17 21:00 Glucagon (Glucagon Inj) 1 mg UNSCH PRN OTHER HYPOGLYCEMIA-SEE COMMENTS 11/15/17 21:00 Insulin Aspart (NovoLOG SUPPLEMENTAL SCALE) 1 ACHS SLIDING SCALE SQ 11/15/17 21:00 Sodium Chloride 1,000 ml @ 0 mls/hr Q0M PRN OTHER For Prime & Rinse Back 11/16/17 08:57 11/16/17 14:50 Heparin Sodium (Porcine) (Heparin Inj) 8,000 units UNSCH PRN IV FLUSH WITH DIALYSIS 11/16/17 09:00 Sodium Chloride 1,000 ml @ 200 mls/hr Q5H PRN IV WITH DIALYSIS 11/16/17 08:57 Sodium Chloride 1,000 ml @ 0 mls/hr Q0M PRN OTHER WITH DIALYSIS 11/16/17 08:57 Mannitol (Mannitol Inj) 12.5 gm UNSCH PRN IV WITH DIALYSIS 11/16/17 09:00 Albumin Human 100 ml @ 60 mls/hr UNSCH PRN IV WITH DIALYSIS 11/16/17 09:00 Sodium Chloride (NS Flush) 5 ml UNSCH PRN IV FLUSH WITH DIALYSIS 11/16/17 09:00 Heparin Sodium (Porcine) (Heparin Inj) UNSCH PRN .XX WITH DIALYSIS 11/16/17 09:00 Gentamicin Sulfate (Gentamicin Inj) 20 mg UNSCH PRN OTHER WITH DIALYSIS 11/16/17 09:00 Ondansetron HCl (Zofran Odt) 4 mg UNSCH PRN PO WITH DIALYSIS 11/16/17 09:00 Acetaminophen (Tylenol) 650 mg UNSCH PRN PO for headach, pain, temp > 101F 11/16/17 09:00 Diphenhydramine HCl (Benadryl) 25 mg UNSCH PRN PO for hives/itching/anaphylaxis 11/16/17 09:00 Nitroglycerin (Nitrostat Sl) 0.4 mg UNSCH PRN SL CHEST PAIN 11/16/17 09:00 Clonidine (Catapres) 0.1 mg UNSCH PRN PO for BP > 180/100 X 2 readings 11/16/17 09:00 Gelatin (Gelfoam 12 Mm/7 Mm Top) 1 foam UNSCH PRN TOP SEE LABEL COMMENTS 11/16/17 09:00 11/16/17 14:50 Objective: Vital Signs Date Time Temp Pulse Resp B/P (MAP) Pulse Ox O2 Delivery O2 Flow Rate FiO2 11/17/17 12:00 97.6 59 16 122/58 (79) 97 11/17/17 08:00 97.6 63 17 168/69 (102) 63 11/17/17 03:20 97.8 61 20 142/65 (90) 97 11/16/17 23:41 97.9 62 20 140/65 (90) 96 11/16/17 20:04 98.4 66 17 150/67 (94) 96 11/16/17 19:49 97 21 11/16/17 16:30 97.5 68 16 159/67 (97) 97 Laboratory Tests Test 11/16/17 06:22 White Blood Count 12.1 TH/MM3 Red Blood Count 4.07 MIL/MM3 Hemoglobin 12.4 GM/DL Hematocrit 39.2 % Mean Corpuscular Volume 96.3 FL Mean Corpuscular Hemoglobin 30.4 PG Mean Corpuscular Hemoglobin Concent 31.6 % Red Cell Distribution Width 22.7 % Platelet Count 381 TH/MM3 Mean Platelet Volume 7.5 FL Neutrophils (%) (Auto) 78.5 % Lymphocytes (%) (Auto) 11.8 % Monocytes (%) (Auto) 9.0 % Eosinophils (%) (Auto) 0.0 % Basophils (%) (Auto) 0.7 % Neutrophils # (Auto) 9.5 TH/MM3 Lymphocytes # (Auto) 1.4 TH/MM3 Monocytes # (Auto) 1.1 TH/MM3 Eosinophils # (Auto) 0.0 TH/MM3 Basophils # (Auto) 0.1 TH/MM3 CBC Comment DIFF FINAL Differential Comment Laboratory Tests Test 11/16/17 06:22 11/16/17 18:22 11/17/17 10:46 Blood Urea Nitrogen 38 MG/DL 29 MG/DL Creatinine 4.97 MG/DL 4.20 MG/DL Random Glucose 172 MG/DL 100 MG/DL Total Protein 7.2 GM/DL Albumin 3.0 GM/DL Calcium Level 9.2 MG/DL 8.1 MG/DL Alkaline Phosphatase 252 U/L Aspartate Amino Transf (AST/SGOT) 20 U/L Alanine Aminotransferase (ALT/SGPT) 7 U/L Total Bilirubin 0.6 MG/DL Sodium Level 139 MEQ/L 137 MEQ/L Potassium Level 5.9 MEQ/L 3.6 MEQ/L 3.7 MEQ/L Chloride Level 99 MEQ/L 96 MEQ/L Carbon Dioxide Level 25.4 MEQ/L 29.0 MEQ/L Anion Gap 15 MEQ/L 12 MEQ/L Estimat Glomerular Filtration Rate 9 ML/MIN 10 ML/MIN Thyroid Stimulating Hormone 3rd Gen 2.310 uIU/ML PHYSICAL EXAMINATION: GENERAL: Patient is awake and alert. No acute distress. HEENT: Head is atraumatic. Extraocular movements grossly intact. Pupils reactive to light. No icterus. Oropharynx moist mucosa without lesions. NECK: Supple without adenopathy. LUNGS: Clear breath sounds. HEART: Regular S1 and S2, without audible murmurs, rubs or gallops. ABDOMEN: Obese, soft, no tenderness appreciated. No palpable mass. EXTREMITIES: Left upper thigh and groin region has a large ulceration which has good granulation tissue and some fatty slough interspersed. The wound is clean and has no erythema. The left leg has 1+ edema including the tibia and proximal thigh. The right heel has a scabbed dry wound, which does not appear infected. The left fifth toe has mild erythema, but does not appear infected. SKIN: No rash. NEUROLOGIC: No gross focal findings. PSYCHIATRIC: Calm and cooperative. IMPRESSION: 1. Intractable nausea with some vomiting. Resolved. Possibly may have been due to metronidazole. 2. Left groin wound infection, being treated with IV antibiotics and appears to be improving. The wound looks clean. 3. End-stage renal disease. The patient undergoes hemodialysis. 4. Leukocytosis. The patient was due to complete the IV antibiotics on 11/18/2017. She has also been receiving the metronidazole, which sometimes can cause nausea and vomiting. She has no signs suggesting sepsis currently. RECOMMENDATIONS: Stop all antibiotics. She has received a long course of antibiotics and I do not think continuing the antibiotics is necessary. Continue to treat with wound care at home. Patient is also due to be evaluated by plastic specialty. No need to follow-up with outpatient ID physician. Outpatient appointment with ID can be arranged if the wound Worsens or show signs of infection. Okay to discharge today from ID standpoint. Bernardo Corrales MD Nov 17, 2017 14:27
--- NOTE | 2017-11-17 15:42 | HHI.PR ---
Subjective Remarks Follow-up on patient with nausea, vomiting and diarrhea. Patient seen and examined. Patient states she feels much better today. She is able to tolerate diet. She denies any nausea, vomiting or abdominal pain. She denies any fever or chills. She denies any diarrhea. Patient states she was seen by Dr. Brothers yesterday and told that the wound looks good. Discussed with nursing staff, no acute issues noted. Objective Vitals Vital Signs Date Time Temp Pulse Resp B/P (MAP) Pulse Ox O2 Delivery O2 Flow Rate FiO2 11/17/17 12:00 97.6 59 16 122/58 (79) 97 11/17/17 08:00 97.6 63 17 168/69 (102) 63 11/17/17 03:20 97.8 61 20 142/65 (90) 97 11/16/17 23:41 97.9 62 20 140/65 (90) 96 11/16/17 20:04 98.4 66 17 150/67 (94) 96 11/16/17 19:49 97 21 11/16/17 16:30 97.5 68 16 159/67 (97) 97 I/O 11/16/17 11/16/17 11/16/17 11/17/17 11/17/17 11/17/17 07:00 15:00 23:00 07:00 15:00 23:00 Intake Total 240 ml Output Total 4000 ml Balance -3760 ml Intake Oral 240 ml Hemodialysis 4000 ml # Voids 1 # Bowel Movements 2 Result Diagram: 11/16/17 0622 11/17/17 1046 Imaging Last Impressions Lower Extremity Ultrasound 11/15/17 0000 Signed Impressions: CONCLUSION: 1. Very limited evaluation of the common femoral and proximal femoral veins, a s above. 2. Otherwise, no evidence for left lower extremity DVT. Abdomen/Pelvis CT 11/15/17 0000 Signed Impressions: CONCLUSION: 1. No acute finding is identified to explain the clinical symptoms. There is t race free fluid in the left paracolic gutter. 2. Anasarca. 3. Small right pleural effusion with compressive atelectasis in the right lowe r lobe. The 10 mm right lower lobe pulmonary nodule is stable. As recommended p reviously, suggest follow-up to confirm stability. 4. Severe atherosclerotic disease. Objective Remarks GENERAL: This is a well-developed obese female, in no apparent distress. Awake and alert. Appears comfortable. at the bedside. SKIN: No rashes, ecchymoses. Cool and dry. + Large left groin wound approximately 10x8cm with mild erythema noted along wound edges and yellowish exudate in the wound bed. Incision along lower left leg anteriorly appears to be healing well with some jessika still in place. HEAD: Atraumatic. Normocephalic. EYES: Pupils equal round and reactive. No scleral icterus. No injection or drainage. CARDIOVASCULAR: Regular rate and rhythm without murmurs, gallops, or rubs. RESPIRATORY: Nonlabored. Clear to auscultation. Breath sounds equal bilaterally. No wheezes, rales, or rhonchi. GASTROINTESTINAL: Abdomen soft, non-tender, nondistended. No guarding. Normal active bowel sounds noted. MUSCULOSKELETAL: Extremities without clubbing or cyanosis. No calf tenderness. Bilateral lower extremity edema +1 pitting. Right heel dressing intact covered with Santyl. NEUROLOGICAL: Awake, lethargic, oriented 3. Able to move all extremities spontaneously. No focal neurologic finding appreciated. Normal speech. PSYCHIATRIC: Calm and cooperative. A/P Assessment and Plan 72-year-old female with a history of ESRD on hemodialysis, CAD status post CABG , hypertension, hyperlipidemia, hypothyroid, PVD, diabetes, diabetic neuropathy , CVA who recently underwent a left femoral bypass and femoral artery endarterectomy on 09/26/[address] Brothers for bilateral lower extremity ulcerations. Patient was sent to rehab and discharged on Tuesday, presents today with nausea vomiting and diarrhea. Nausea, vomiting, diarrhea, with leukocytosis, WBC 14, uncertain etiology, possibly medication side effect, patient is on multiple IV antibiotics and p.o. Flagyl CT the abdomen and pelvis reveals anasarca, small right pleural effusion, stable 10 mm right lower lobe pulmonary nodule Resolved, patient able to tolerate dinner and breakfast without any recurrence of nausea or vomiting. No episodes of diarrhea since admission. -Continue antiemetics as needed -C. difficile ordered but unable to obtain specimen secondary to diarrhea resolving -IS and acapella at bedside, encourage use -monitor Leukocytosis, multifactorial, suspect secondary to left groin infection and active nausea/vomiting White count improving, dropped from 14-12.1 Patient is afebrile -Continue to monitor white count as indicated ESRD on HD MWF Hyperkalemia, K 5.9 -Nephrology following, appreciate assistance -Potassium dropped to 3.6 status post HD yesterday -Avoid nephrotoxins Left groin wound infection, cultures positive for VRE, MDR, Klebsiella and Rosa glabrata On outpatient IV antibiotic treatment to be completed 11/18/[address] Vega had recommended Dakin's solution 0.25% to the wound to be changed twice daily along with zinc oxide around the wound edges for protection against the moisture Podiatry had recommended Betadine moistened gauze with DSD to left fifth digit ulceration in between toes and Silvadene with DSD to left and right posterior heel ulceration. -Patient to resume home health care wound care and physical therapy following discharge -Infectious disease following, appreciate assistance. All antibiotics discontinued, patient completed treatment. Cleared for discharge from ID standpoint -Pain management with po norco -multipolus boots, float heels off bed PVD Recent left femoral bypass and femoral artery endarterectomy on 09/26/[address] Brothers -Patient states that Dr. Brothers came by and saw her yesterday, and told her wound is healing well. No note in chart. -continue on Plavix -continue with PT Hypertension, controlled Hx CVA Hx CABGx3 -Continue Coreg 6.25 mg twice daily, Lipitor 40 mg nightly, Zetia 10 mg nightly, and Plavix 75 mg daily -continue to monitor Left lower extremity edema, suspect postoperative response Doppler study negative for DVT -Elevate legs while in bed DM, chronic Blood sugars adequately controlled -Accu checks with SSI -Cont home long acting insulin Hypothyroidism TSH WNL -Continue on home dose of Synthroid DVT prophylaxis: Heparin Discharge patient to home. Patient to resume previously ordered home health care wound care in PT. Condition on discharge: Improved Heart healthy, renal, diabetic diet as tolerated Ad Judith activity Rx written: Jovan Follow-up with primary care physician, Dr. Brothers of vascular surgery and nephrology Yane Lr Nov 17, 2017 15:42
[2017-11-17] MEDS ORDERED: ONDA4TAB7 PO (15:46)
--- NOTE | 2017-11-17 15:47 | HHI.DCPOC ---
Discharge Care Plan Diagnosis: (1) Hyperkalemia (2) ESRD (end stage renal disease) on dialysis (3) Wound of left groin (4) Intractable nausea and vomiting (5) Leukocytosis Goals to Promote Your Health * To prevent worsening of your condition and complications * To maintain your health at the optimal level Directions to Meet Your Goals Take your medications as prescribed Follow your dietary instruction Follow activity as directed Keep your appointments as scheduled Take your immunizations and boosters as scheduled If your symptoms worsen call your PCP, if no PCP go to Urgent Care Center or Emergency Room Smoking is Dangerous to Your Health. Avoid second hand smoke Call the 24-hour hour crisis hotline for domestic abuse at Yane Lr Nov 17, 2017 15:47
--- NOTE | 2017-11-17 17:35 | HHI.FF ---
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 Silvadene with DSD to right and left posterior heel ulceration Left groin wound wet-to-dry with Dakin solution I have seen patient Mary Jarrell on 11/17/17. My clinical findings support the need for the requested home health care services because: Deconditioned w/ increased weakness Limited ability to care for self High risk of falls I certify that my clinical findings support that this patient is homebound because: Post-op weakness Unsteady gait/balance Unsafe to leave home unassisted Unable to use public transportation Yane Lr Nov 17, 2017 17:35
--- NOTE | 2017-11-17 18:30 | EKG ---
Date Performed: 11/15/2017 Time Performed: 18:06:17 PTAGE: 72 years EKG: Sinus rhythm MARKED LEFT AXIS DEVIATION INTRAVENTRICULAR CONDUCTION DELAY ANTEROSEPTAL MYOCARDIAL INFARCTION ABNO RMAL ECG Since the PREVIOUS TRACING , no significant change noted PREVIOUS TRACIN07/22/2017 01.57 DOCTOR: Amber Zarate Interpretating Date/Time 11/17/2017 18:29:23
--- NOTE | 2017-11-19 17:47 | HHI.DS ---
Discharge Summary Admission Date Nov 16, 2017 at 11:47 Discharge Date: Nov 17, 2017 Admitting Diagnosis intractable nausea and vomiting (1) Diarrhea ICD Code: R19.7 - Diarrhea, unspecified (2) Leukocytosis ICD Code: D72.829 - Elevated white blood cell count, unspecified (3) Nausea & vomiting ICD Code: R11.2 - Nausea with vomiting, unspecified (4) Impaired mobility and activities of daily living ICD Code: Z74.09 - Other reduced mobility Status: Acute (5) Edema of both legs ICD Code: R60.0 - Localized edema (6) Wound infection ICD Code: T14.8XXA - Other injury of unspecified body region, initial encounter ; L08.9 - Local infection of the skin and subcutaneous tissue, unspecified Status: Chronic (7) Status post femoral-popliteal bypass surgery ICD Code: Z95.828 - Presence of other vascular implants and grafts Status: Acute Procedures None Brief History - From Admission 72-year-old female with a history of ESRD on hemodialysis, CAD status post CABG , hypertension, hyperlipidemia, hypothyroid, PVD, diabetes, diabetic neuropathy , CVA who recently underwent a left femoral bypass and femoral artery endarterectomy on 09/26/[address] Brothers for bilateral lower extremity ulcerations. Patient was sent to rehab and discharged on Tuesday, presents today with nausea vomiting and diarrhea. Patient states she has just been feeling very weak and having diarrhea every time she goes to the bathroom. She denies any associated fevers or chills at home. States she has had home health care for her multiple wounds that are due to be changed tonight. For her left groin wound she does follow with Dr. Brothers. In rehab she was followed by Dr. Vega who stated patient was a poor candidate for graft, and was managed by podiatry who recommended amputation for her left heel but it was decided against and conservative management was taken. CBC/BMP: 11/16/17 0622 11/17/17 1046 Significant Findings Laboratory Tests Test 11/16/17 18:22 11/17/17 10:46 Blood Urea Nitrogen 29 MG/DL (7-18) Creatinine 4.20 MG/DL (0.50-1.00) Calcium Level 8.1 MG/DL (8.5-10.1) Chloride Level 96 MEQ/L (98-107) Estimat Glomerular Filtration Rate 10 ML/MIN (>89) Imaging Last Impressions Lower Extremity Ultrasound 11/15/17 0000 Signed Impressions: CONCLUSION: 1. Very limited evaluation of the common femoral and proximal femoral veins, a s above. 2. Otherwise, no evidence for left lower extremity DVT. Abdomen/Pelvis CT 11/15/17 0000 Signed Impressions: CONCLUSION: 1. No acute finding is identified to explain the clinical symptoms. There is t race free fluid in the left paracolic gutter. 2. Anasarca. 3. Small right pleural effusion with compressive atelectasis in the right lowe r lobe. The 10 mm right lower lobe pulmonary nodule is stable. As recommended p reviously, suggest follow-up to confirm stability. 4. Severe atherosclerotic disease. PE at Discharge GENERAL: This is a well-developed obese female, in no apparent distress. Awake and alert. Appears comfortable. at the bedside. SKIN: No rashes, ecchymoses. Cool and dry. + Large left groin wound approximately 10x8cm with mild erythema noted along wound edges and yellowish exudate in the wound bed. Incision along lower left leg anteriorly appears to be healing well with some jessika still in place. HEAD: Atraumatic. Normocephalic. EYES: Pupils equal round and reactive. No scleral icterus. No injection or drainage. CARDIOVASCULAR: Regular rate and rhythm without murmurs, gallops, or rubs. RESPIRATORY: Nonlabored. Clear to auscultation. Breath sounds equal bilaterally. No wheezes, rales, or rhonchi. GASTROINTESTINAL: Abdomen soft, non-tender, nondistended. No guarding. Normal active bowel sounds noted. MUSCULOSKELETAL: Extremities without clubbing or cyanosis. No calf tenderness. Bilateral lower extremity edema +1 pitting. Right heel dressing intact covered with Santyl. NEUROLOGICAL: Awake, lethargic, oriented 3. Able to move all extremities spontaneously. No focal neurologic finding appreciated. Normal speech. PSYCHIATRIC: Calm and cooperative. Pt update on day of discharge Follow-up on patient with nausea, vomiting and diarrhea. Patient seen and examined. Patient states she feels much better today. She is able to tolerate diet. She denies any nausea, vomiting or abdominal pain. She denies any fever or chills. She denies any diarrhea. Patient states she was seen by Dr. Brothers yesterday and told that the wound looks good. Discussed with nursing staff, no acute issues noted. Hospital Course Patient admitted with intractable nausea vomiting and diarrhea. She is noted to have leukocytosis with white count of 14. C. difficile studies were ordered however unable to complete testing secondary lack of sample as patient's diarrhea resolved. She had significant swelling in left lower extremity likely postoperative response. Doppler studies were obtained and were negative for DVT. Patient was continued on her IV antibiotic therapy per her home regimen and was seen in consultation by Dr. Corrales of ID who felt that the patient had adequately completed her course of antibiotic treatment and discontinued all of her antibiotics. Patient had a rapid recovery. Patient's nausea and vomiting resolved. She is able to tolerate a diet. Patient was cleared for discharge from ID standpoint. She was seen in consultation by her vascular surgeon Dr. Brothers who felt that the postoperative wound was healing well and recommended she follow-up as an outpatient. She was seen in consultation by nephrology to continue with her Tuesday hemodialysis schedule. She was noted to be hyperkalemic with potassium level 5.9 which dropped to 3.6 following hemodialysis. Patient was discharged earlier than anticipated due to unforeseen recovery. Pt Condition on Discharge: Stable Discharge Disposition: Disch w/ Home Health Serv Discharge Time: > 30 minutes Discharge Instructions DIET: Follow Instructions for: Heart Healthy Diet, Diabetic Diet Activities you can perform: See Additionl Instruction Other Activity Instructions: per PT recommendations Follow up Referrals: Nephrology - 1 Week PCP Follow-up - 1 Week Vascular Surgery - 1 Week Changed Medications: Ondansetron Odt (Ondansetron Odt) 4 Mg Tab 4 MG PO Q6H PRN for NAUSEA OR VOMITING, #6 TAB (Changed from: Q4H; 10) Continued Medications: Atorvastatin (Atorvastatin) 40 Mg Tab 40 MG PO HS for Cholesterol Management, #30 TAB Carvedilol (Carvedilol) 6.25 Mg Tab 6.25 MG PO BID for Blood Pressure Management, #60 TAB 0 Refills Cholecalciferol (Gnp Vitamin D3 Extra Stre) 1,000 Unit Tab 1000 UNITS PO DAILY for Nutritional Supplement, #30 TAB Cinacalcet (Sensipar) 30 Mg Tab 60 MG PO WITH DINNER for Kidneys, #60 TAB Clopidogrel (Plavix) 75 Mg Tab 75 MG PO DAILY for Blood Clot Prevention, #30 TAB 0 Refills Epoetin Inj (Procrit Inj) 2,000 Unit/Ml Inj 1000 UNITS SQ TUESDAY for Anemia, #12 VIAL 0 Refills Ergocalciferol (Ergocalciferol) 50,000 Unit Cap 69609 UNITS PO Q14D for Supplement, #2 CAP Ezetimibe (Zetia) 10 Mg Tab 10 MG PO DAILY for Cholesterol Management, #30 TAB Famotidine (Famotidine) 20 Mg Tab 10 MG PO BID for Reflux, #30 TAB Gabapentin (Gabapentin) 100 Mg Cap 200 MG PO DAILY for Pain Management, #60 CAP Hydrocodone/Acetaminophen (Hydrocodone-Acetamin 7.5-325) 7.5 Mg-325 Mg Tablet 1 TAB PO BID PRN for For wound dressing changes, #30 0 Refills Hydrocodone/Acetaminophen (Hydrocodone-Acetamin 5-325 mg) 5 Mg-325 Mg Tablet 1 TAB PO Q12HR PRN for PAIN SCALE 6 TO 10, #30 0 Refills Insulin Detemir Inj (Levemir Inj) 1,000 unit/ 10 ML Vial 22 UNITS SQ HS for glucose control for 30 Days, INJECTION Do not mix with any other Insulin. Insulin Detemir Inj (Levemir Inj) 1,000 unit/ 10 ML Vial 20 UNITS SQ DAILY for glucose control for 30 Days, INJECTION Do not mix with any other Insulin. Insulin Lispro (Human) Inj (Humalog Inj) 1,000 Unit/10 Ml Vial 1 UNIT SQ ACHS for Blood Sugar Management, #1 VIAL 0 Refills SLIDING SCALE DIRECTED Lactobacillus Acidophilus (Acidophilus/l-Sporogenes) 35 Million Cell-25 Million Cell Tab 1 TAB PO TID for healthy bacteria, #90 TAB Levothyroxine (Synthroid) 125 Mcg Tab 125 MCG PO DAILY for Thyroid, #30 TAB 0 Refills Loperamide HCl (Hm Loperamide HCl) 2 Mg Cap 4 MG PO Q6H PRN for DIARRHEA, #25 CAP Silver Sulfadiazine Topical (Silvadene Topical) 1 % Cream 1 APPLIC TOPICAL DAILY for wound care for heel, #2 TUBE [Aquaphor Oint] () 50 APPLIC/50 GM OINT 1 APPLIC TOPICAL Q12HR for dry skin, #2 TUBE [Zinc Oxide 20% Oint] () 30 APPLIC/30 GM OINT 1 APPLIC TOPICAL BID for pressure ulcer care, #2 TUBE Discontinued Medications: Acetaminophen (Eq Acetaminophen) 325 Mg Tab 650 MG PO Q12HR PRN for PAIN SCALE 1 TO 5, #30 TAB 0 Refills Metronidazole (Flagyl) 500 Mg Tab 500 MG PO Q8HR for Infection, #20 TAB Through November 18, 2017. Micafungin Inj (Mycamine Inj) 100 Mg Inj 100 MG IV DAILY for Infection, #1 VIAL [Rocephin] () 1 GM IV DAILY Yane Lr Nov 19, 2017 17:47
== END 2017-11-17 18:27 | disposition home health service (06) | DRG 391 ==
LOC: NEPE 13:48 → NEDA 16:57 → INTOOBSV 16:57 → NEPHCDU 18:40 → OBSVTOIN 11-16 11:47
PROVIDERS: ADMIT Hospitalist; ATTEND Hospitalist
PROC: 5A1D70Z Performance of Urinary Filtration, Intermittent, Less than 6 Hours Per Day (ICD-10-PCS; principal; 2017-11-16)
DX: R11.2 Nausea with vomiting, unspecified (principal); I12.0 Hypertensive chronic kidney disease with stage 5 chronic kidney disease or end stage renal disease; N18.6 End stage renal disease; N17.9 Acute kidney failure, unspecified; B37.89 Other sites of candidiasis; N25.81 Secondary hyperparathyroidism of renal origin; E11.22 Type 2 diabetes mellitus with diabetic chronic kidney disease; E87.5 Hyperkalemia; L97.429 Non-pressure chronic ulcer of left heel and midfoot with unspecified severity; L97.419 Non-pressure chronic ulcer of right heel and midfoot with unspecified severity; T81.4XXA Infection following a procedure, initial encounter; L08.9 Local infection of the skin and subcutaneous tissue, unspecified; B95.2 Enterococcus as the cause of diseases classified elsewhere; B96.1 Klebsiella pneumoniae [K. pneumoniae] as the cause of diseases classified elsewhere; Z16.21 Resistance to vancomycin; E11.40 Type 2 diabetes mellitus with diabetic neuropathy, unspecified; E03.9 Hypothyroidism, unspecified; I25.10 Atherosclerotic heart disease of native coronary artery without angina pectoris; Z95.1 Presence of aortocoronary bypass graft; E11.51 Type 2 diabetes mellitus with diabetic peripheral angiopathy without gangrene; E11.319 Type 2 diabetes mellitus with unspecified diabetic retinopathy without macular edema; E11.621 Type 2 diabetes mellitus with foot ulcer; Z79.4 Long term (current) use of insulin; Z99.2 Dependence on renal dialysis; M19.90 Unspecified osteoarthritis, unspecified site; E66.9 Obesity, unspecified; Z68.37 Body mass index [BMI] 37.0-37.9, adult; R91.1 Solitary pulmonary nodule; Z79.02 Long term (current) use of antithrombotics/antiplatelets; Z86.73 Personal history of transient ischemic attack (TIA), and cerebral infarction without residual deficits
CPT/HCPCS: 74176; 80048; 80053; 82948; 83690; 84132; 84443; 85025; 90935; 93005; 93971; 94150; 94667; 94668; 96361; 96365; 96372; 96375; G0378; G8987-GP; G8988-GP; J0696; J0780; J1644; J1815; J2550; J2765; J7030; J7040

== ENCOUNTER 2017-12-22 15:42 | Inpatient (IN) ==
--- NOTE | 2017-12-22 16:37 | ED ---
HPI General Chief complaint: Wound/Laceration Stated complaint: Leg pain/Vomiting Time Seen by Provider: 12/22/17 16:16 Source: patient, family, RN notes reviewed and old records reviewed Mode of arrival: ambulatory Limitations: no limitations History of Present Illness HPI narrative: 72-year-old female presents to the emergency department for evaluation of infection to the left leg. Patient was sent by Dr. Brothers and , vascular surgeon, met her in the emergency department. He states he would like the patient to be admitted to hospitalist and he will consult and do surgery tomorrow. TPatient has PMH of diabetes, end-stage renal disease on hemodialysis Wednesdays and Fridays, peripheral vascular disease, coronary artery disease, hypertension, dyslipidemia, CHF, previous CVA x 3, hx of left foot second toe amputation and hypothyroidism who underwent a left femoral-popliteal bypass and femoral endarterectomy on August 30, [address] Brothers at [facility]. Patient's manager technology is Dr. Sampson. She has had multiple complications and has a large wound to the left upper leg. She reports pain around her left knee at this time. She reports subjective fevers. Moderate severity. MD complaint: Infected left femoropopliteal bypass Location: lower extremity Radiation: non-radiation Severity: moderate Severity scale (1-10): 7 Quality: aching Pain Consistency: constant Relieving factors: none Exacerbating factors: none Associated symptoms: denies other symptoms Related Data Home Medications Medication Instructions Recorded Confirmed carvedilol [Coreg] 6.25 mg PO BID 12/22/17 12/22/17 cinacalcet [Sensipar] 30 mg PO DAILY 12/22/17 12/22/17 clopidogrel [Plavix] 75 mg PO DAILY 12/22/17 12/22/17 ezetimibe-simvastatin [Vytorin 1 tab PO QPM 12/22/17 12/22/17 10-80] gabapentin 100 mg PO BID 12/22/17 12/22/17 insulin pump-infus. 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 within the Last 8 Weeks: No Recent Out of Country Travel within the Last 8 Weeks: No Exam Narrative Exam Narrative: GENERAL: Well-nourished, well-developed female patient, afebrile. SKIN: Focused skin assessment warm/dry. Patient has diffuse erythema to the left lower extremity with a large wound that is currently packed to the proximal aspect of the left leg HEAD: Normocephalic. Atraumatic. EYES: No scleral icterus. No injection or drainage. NECK: Supple, trachea midline. No JVD or lymphadenopathy. CARDIOVASCULAR: Regular rate and rhythm without murmurs, gallops, or rubs. RESPIRATORY: Breath sounds equal bilaterally. No accessory muscle use. Lung sounds are clear to auscultation GASTROINTESTINAL: Abdomen soft, non-tender, nondistended. MUSCULOSKELETAL: No cyanosis. BACK: Nontender without obvious deformity. No CVA tenderness. Course Initial Documented Vital Signs Temperature 99.5 F 12/22/17 15:51 Pulse Rate 67 12/22/17 15:51 Respiratory Rate 16 12/22/17 15:51 Blood Pressure 121/54 L 12/22/17 15:51 Pulse Oximetry 98 12/22/17 15:51 Last Documented Vital Signs Temperature 98.8 F 12/22/17 16:35 Pulse Rate 66 12/22/17 16:35 Respiratory Rate 18 12/22/17 16:41 Blood Pressure 110/49 L 12/22/17 16:35 Pulse Oximetry 99 12/22/17 16:35 Medical Decision Making DIRK Attestation DIRK supervised visit: Yes Attestation: I, Dr. Wilcox, have reviewed the advance practice practitioner's documentation and am in agreement, met with the patient face to face, made the diagnosis, and the medical decision making was done by me. *My assessment and Findings: she was sent her for admission, surgery is planned for tomorrow. Work up initiated and pt admitted to medicine with vasc surg consult as rec by Dr Mor PETERSON Narrative Medical decision making narrative: 72-year-old female presents to the emergency department for infected femoropopliteal bypass to the left lower extremity. Dr. Shell, vascular surgeon, has already examined patient and the emergency department. He like the patient to be admitted to the hospitalist and he will do surgery tomorrow. Consult is placed for him. He states he will place orders. Differential Diagnosis Differential Diagnosis: Infected femoropopliteal bypass versus cellulitis versus sepsis Lab Data Result diagrams: 12/22/17 17:05 12/22/17 17:05 Lab Results 12/22/17 12/22/17 Range/Units 17:05 17:05 WBC 14.5 H (4.0-11.0) th/mm3 RBC 3.44 L (4.00-5.30) mil/mm3 Hgb 10.2 L (11.6-15.3) gm/dL Hct 31.5 L (35.0-46.0) % MCV 91.5 (80.0-100.0) fL MCH 29.6 (27.0-34.0) pg MCHC 32.4 (32.0-36.0) % RDW 20.0 H (11.6-17.2) % Plt Count 332 (150-450) th/mm3 MPV 7.6 (7.0-11.0) fL Neut % (Auto) 76.9 H (16.0-70.0) % Lymph % (Auto) 9.4 (9.0-44.0) % Marin % (Auto) 12.2 H (0.0-8.0) % Eos % (Auto) 0.8 (0.0-4.0) % Baso % (Auto) 0.7 (0.0-2.0) % Neut # (Auto) 11.1 H (1.8-7.7) th/mm3 Lymph # (Auto) 1.4 (1.0-4.8) th/mm3 Marin # (Auto) 1.8 H (0.0-0.9) th/mm3 Eos # (Auto) 0.1 (0.0-0.4) th/mm3 Baso # (Auto) 0.1 (0.0-0.2) th/mm3 WBC Differential . Differential Comment Auto diff final PT 11.3 (9.8-11.6) sec INR 1.1 Ratio APTT 29.4 (24.3-30.1) sec Imaging Data Radiologist's impression: Chest X-Ray 12/22/17 17:10 CONCLUSION: Discharge Plan Discharge Disposition Patient Disposition: 30 Still Patient Discharge Details Diagnosis: Cellulitis Physicians Team ED Provider: Alex Wilcox ED Midlevel Provider: Yue Zarate Primary Care Provider: Garret Samaniego Other Providers: Hemant Shell Rxs /Orders / Referrals /Forms Prescriptions: No Action carvedilol [Coreg] 6.25 mg Tablet 6.25 mg PO BID RF: 0 clopidogrel [Plavix] 75 mg Tablet 75 mg PO DAILY RF: 0 ranitidine HCl [Zantac] 150 mg Tablet 150 mg PO BID RF: 0 gabapentin 100 mg Capsule 100 mg PO BID RF: 0 cinacalcet [Sensipar] 30 mg Tablet 30 mg PO DAILY RF: 0 ezetimibe-simvastatin [Vytorin 10-80] 10-80 mg Tablet 1 tab PO QPM RF: 0 sevelamer carbonate [Renvela] 800 mg Tablet 800 mg PO QID RF: 0 levothyroxine 125 mcg Capsule 125 mcg PO DAILY RF: 0 insulin pump-infus. set-meter auto-injector RF: 0 Status ED Status: With Doctor
--- NOTE | 2017-12-22 17:34 | XR ---
EXAM DATE: 12/22/2017 5:31 PM EDT AGE/SEX: 72 years / Female INDICATIONS: Fever CLINICAL DATA: This is the patient's initial encounter. Patient reports that signs and symptoms have been present for 1 day and indicates a pain score of 0/10. MEDICAL/SURGICAL HISTORY: . : Hypertension. Congestive heart failure. Cardiovascular disease. T hyroid disease. CVA. GERD. Dialysis. Renal failure. Diabetic. Liver disease .. . AV fistula right arm. Left Fem-Pop Graft - 2017 COMPARISON: [facility] [place], CHEST SINGLE AP, 07/21/2017. . FINDINGS: A single AP view of the chest demonstrates the lungs to be symmetrically aerated without evidence of mass, infiltrate or effusion. The heart size remains at the upper limits of normal with no evidence of perihilar edema. Osseous structures are intact. The patient is status post median sternotomy for bypass grafting procedure. There are mild atherosclerotic changes in the aorta. CONCLUSION: No acute cardiopulmonary disease. There is no evidence of pneumonia. Electronically signed by: Efrem Briceño MD 12/22/2017 5:32 PM EDT
--- NOTE | 2017-12-22 17:42 | MB ---
cc: Hemant Shell MD DATE: 12/22/2017 REASON FOR CONSULTATION: Infection of the left leg overlying the left femoral distal graft. HISTORY OF PRESENT ILLNESS: This 72-year-old lady underwent, in August of this year, a successful left leg revascularization with PTFE graft by Dr. Brothers. The patient did well initially, was transferred to [facility], but then developed infection of the left groin with Klebsiella and VRE and Rosa glabrata. She was hospitalized on antibiotics after I and D of the left groin, and a wound VAC was placed. The patient had several episodes of infection, which were treated successfully, still has a wound VAC in the left groin, although I do not see one today, but then she was noted to have redness down the left leg in the area of the distal graft. This was initially aspirated and this seemed to be serous but I was called by Dr. Brothers today to please attend this patient. The patient now comes through the emergency room as admission for incision and drainage of the left leg. PAST MEDICAL HISTORY: Diabetes mellitus, coronary artery disease, severe peripheral vascular disease with end-stage renal disease, and hypertension. PAST SURGICAL HISTORY: Left distal fem-pop graft for severe limb threatening ischemia. MEDICATIONS: Can be found on the record. SOCIAL HISTORY: The patient does not smoke or drink. She is somewhat obese. PHYSICAL EXAMINATION: GENERAL: Reveals a pleasant 72-year-old lady. HEENT: Normocephalic. No trauma to the head. Pupils equal, reactive. Extraocular muscles intact. NECK: Supple. Bilateral carotid pulses. LUNGS: Bilateral breath sounds. HEART: Regular rate and rhythm. ABDOMEN: Soft, active bowel sounds, obese. EXTREMITIES: The patient has dopplerable right and left pulses. The left groin has an incision, which is now packed wet-to-dry, although I was told that otherwise there is a wound VAC in it, but it was taken off for some reason today. Distally, the patient has redness over the popliteal area and then a little lower down. There is some fluctuance noted and this was aspirated by Dr. Jasso yesterday and serous fluid was obtained, so this may not be infected; however, appears to be somewhat red and warm. In addition, the patient has generalized edema in the form of anasarca that does not make any of this easier. NEUROLOGIC: The patient is intact. IMPRESSION AND RECOMMENDATIONS: The patient with possible infection and collection in the left leg. The patient will go for incision and drainage of the left lower leg, washout and debridement of the left groin and new wound VAC placement. The patient will be admitted to medicine due to multitude of medical problems. Thank you very much for your referral. MD CARRIE Brown/DARON , 05:23 PM , 05:31 PM
[2017-12-22 17:56] LABS: Baso # (Auto) 0.1 th/mm3 (0.0-0.2); Baso % (Auto) 0.7 % (0.0-2.0); Eos # (Auto) 0.1 th/mm3 (0.0-0.4); Eos % (Auto) 0.8 % (0.0-4.0); Hematocrit 31.5 % (35.0-46.0); Hemoglobin 10.2 gm/dL (11.6-15.3); Lymph # (Auto) 1.4 th/mm3 (1.0-4.8); Lymph % (Auto) 9.4 % (9.0-44.0); Mean Corpuscular HGB Conc 32.4 % (32.0-36.0); Mean Corpuscular Hemoglobin 29.6 pg (27.0-34.0); Mean Corpuscular Volume 91.5 fL (80.0-100.0); Mean Platelet Volume 7.6 fL (7.0-11.0); Mono # (Auto) 1.8 th/mm3 (0.0-0.9); Mono % (Auto) 12.2 % (0.0-8.0); Neut # (Auto) 11.1 th/mm3 (1.8-7.7); Neut % (Auto) 76.9 % (16.0-70.0); Platelet Count 332 th/mm3 (150-450); Red Blood Count 3.44 mil/mm3 (4.00-5.30); White Blood Count 14.5 th/mm3 (4.0-11.0)
[2017-12-22 18:03] LABS: Activated Partial Thrombo Time 29.4 sec (24.3-30.1); INR 1.1 Ratio; Prothrombin Time 11.3 sec (9.8-11.6)
[2017-12-22 18:23] LABS: Albumin 2.8 g/dL (3.4-5.0); Anion Gap 12 meq/L (5-15); Aspartate Aminotransferase 22 U/L (15-37); Blood Urea Nitrogen 30 mg/dL (7-18); Calcium 9.2 mg/dL (8.5-10.1); Carbon Dioxide 27.3 meq/L (21.0-32.0); Chloride 92 meq/L (98-107); Glomerular Filtration Rate 10 mL/min (>89); Glucose,Random 129 mg/dL (74-106); Sodium 131 meq/L (136-145)
[2017-12-22 18:24] LABS: Alanine Aminotransferase 25 U/L (10-53)
[2017-12-22 18:25] LABS: Alkaline Phosphatase 585 U/L (45-117); Total Protein 7.5 g/dL (6.4-8.2)
[2017-12-22] MEDS ORDERED: Piperacil/Tazo 2.25 GM Premix 50 ML IV.SIG ONE (18:36)
[2017-12-22] MEDS ORDERED: Acetaminophen 325 MG Tablet PO PRN (18:59)
[2017-12-22] MEDS ORDERED: Temazepam 15 MG Capsule PO PRN (18:59)
[2017-12-22] MEDS ORDERED: Bisacodyl 10 MG Supp RECTAL PRN (18:59)
[2017-12-22] MEDS ORDERED: Vancomycin Consult Pharmacy 1 EACH OTHER SCH (19:00)
--- NOTE | 2017-12-22 19:03 | P.HPIM ---
History of Present Illness Primary Care Physician: Garret Samaniego MD History of Present Illness: This is a 72-year-old female with a PMH of HTN, ESRD on HD M/W/F, Hyperlipidemia , PVD, DM and h/o CVA who was referred to the ER by Dr. Brothers for admission due to LLE infection. S/p Left Fem-Bypass and Femoral Artery Endarterectomy on 08/24/[address] Brothers, has had multiple issues w/ infection of surgical site, s/ p evacuation hematoma w/ VAC placement on 09/23/17. Previous Wound Cultures + Rosa, Klebsiella and VRE 10/07/17. Initially on Zyvox, however developed thrombocytopenia and switched to Daptomycin/Ceftriaxone w/ plans for IV antibiotics until 11/18/17 per review of ID notes, Wound VAC placed, however no VAC in place, unclear when it was removed. C/o ongoing left groin pain, severe , 10/10, non-radiating, worse w/ movement. On arrival, BP 121/54, HR 67, O2 sat 98% on RA, Temp 99.5. WBC 14.5. Platelets 332. INR 1.1. Chemistry at baseline, creatinine 4.40, stable. CXR w/ no acute findings. S/p eval in ER by Dr. Juares, plans for surgical intervention in am. S/p Zosyn in ER. 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 HTN (hypertension) High cholesterol Type II diabetes mellitus - Surgical History Surgical History: Surgical History (Last Updated 12/22/17 @ 16:38 by Del Bryant) H/O heart bypass surgery History of appendectomy History of cholecystectomy - Tobacco History Smoking Status: Never smoker - Alcohol History How Often Do You Have a Drink Containing Alcohol: Never - Substance Use History Substance History: No History of Abuse - Travel History Recent Travel in the [place] Within the Last 8 Weeks: No Recent Travel Out of the Country Within the Last 8 Weeks: No - Immunization History Tetanus Immunization: <5 Years Hx Influenza Vaccine This Season: Yes Medications and Allergies Active Medications: Active Medications Acetaminophen (Tylenol) 650 mg PO Q4H PRN PRN Reason: Temp > 100.4 Al Hydroxide/Mg Hydroxide (Milk Of Magnesia Liq) 30 ml PO Q12H PRN PRN Reason: Mild Constipation Bisacodyl (Dulcolax Supp) 10 mg RECTAL DAILY PRN PRN Reason: SEVERE CONSITIPATION Carvedilol (Coreg) 6.25 mg PO BID [facility] Cinacalcet (Sensipar) 30 mg PO DAILY [facility] Gabapentin (Neurontin) 100 mg PO BID [facility] Piperacillin/Tazobactam/Dextrose (Zosyn 2.25 Gm Premix) 50 mls @ 100 mls/hr IV.SIG ONCE ONE Stop: 12/22/17 19:05 Cefepime HCl 1,000 mg/ Sodium (Chloride) 100 mls @ 200 mls/hr IV.SIG Q12H [facility] Pharmacy Profile Note (Vancomycin Consult Pharmacy) 0 mls @ 0 mls/hr OTHER UNSCH [facility] Lactulose (Lactulose Liq) 30 ml PO DAILY PRN PRN Reason: SEVERE CONSITIPATION Non-Formulary Medication (Ezetimibe-Simvastatin [Vytorin 10-80]) 1 tab PO QPM [facility] Non-Formulary Medication (Levothyroxine [Levothyroxine]) 125 mcg PO DAILY [facility] Ondansetron HCl (Zofran Inj) 4 mg IV.PUSH Q6H PRN PRN Reason: NAUSEA OR VOMITING Senna/Docusate Sodium (Lucinda-Colace) 1 tab PO BID [facility] Sennosides (Senokot) 17.2 mg PO Q12H PRN PRN Reason: Moderate Constipation Sevelamer Carbonate (Renvela) 800 mg PO QID [facility] Sodium Chloride (Ns Flush) 2 ml IV.FLUSH BID RICARDO Sodium Chloride (Ns Flush) 2 ml IV.FLUSH PRN PRN PRN Reason: FLUSH AFTER USING IV ACCESS Temazepam (Restoril) 15 mg PO HS PRN PRN Reason: INSOMNIA Allergies Allergy/AdvReac Type Severity Reaction Status Date / Time amlodipine Allergy Severe Unverified 11/15/17 14:41 adhesive tape Allergy Unknown Generalized Verified 11/15/17 14:41 Itching Home Medications Medication Instructions Recorded Confirmed Type carvedilol [Coreg] 6.25 mg PO BID 12/22/17 12/22/17 History cinacalcet [Sensipar] 30 mg PO DAILY 12/22/17 12/22/17 History clopidogrel [Plavix] 75 mg PO DAILY 12/22/17 12/22/17 History ezetimibe-simvastatin [Vytorin 1 tab PO QPM 12/22/17 12/22/17 History 10-80] gabapentin 100 mg PO BID 12/22/17 12/22/17 History insulin pump-infus. set-meter 12/22/17 12/22/17 History levothyroxine 125 mcg PO DAILY 12/22/17 12/22/17 History ranitidine HCl [Zantac] 150 mg PO BID 12/22/17 12/22/17 History sevelamer carbonate [Renvela] 800 mg PO QID 12/22/17 12/22/17 History Exam Vital signs: Vital Signs 12/22/17 15:51 12/22/17 16:35 12/22/17 16:41 Temperature 99.5 F 98.8 F Pulse Rate 67 66 Respiratory Rate 16 17 18 Blood Pressure 121/54 L 110/49 L Pulse Oximetry 98 99 Intake & Output 12/22/17 12/22/17 12/23/17 06:59 18:59 06:59 Weight 99.79 kg Narrative: PE: GENERAL: Pleasant elderly white female in no acute distress. HEENT: PERRLA, EOMI. No scleral icterus or conjunctival pallor. No lid lag or facial droop. CARDIOVASCULAR: Regular rate and rhythm. No obvious murmurs to auscultation. No chest tenderness to palpation. RESPIRATORY: No obvious rhonchi or wheezing. Clear to auscultation. Breath sounds equal bilaterally. GASTROINTESTINAL: Abdomen soft, non-tender, nondistended. BS normal. MUSCULOSKELETAL: Extremities without clubbing, cyanosis, or edema. No obvious deformities. LLE groin w/ dressing in place, open wound, no VAC, +erythema/ edema. NEUROLOGICAL: Awake, alert and oriented x4. No focal neurologic deficits. Moving both upper and lower extremities spontaneously. Results - Labs CBC & Chem 7: 12/22/17 17:05 12/22/17 17:05 Labs: Short CBC 12/22/17 Range/Units 17:05 WBC 14.5 H (4.0-11.0) th/mm3 Hgb 10.2 L (11.6-15.3) gm/dL Hct 31.5 L (35.0-46.0) % Plt Count 332 (150-450) th/mm3 BMP 12/22/17 17:05 Sodium 131 L Potassium 4.0 Chloride 92 L Carbon Dioxide 27.3 BUN 30 H Creatinine 4.40 H Calcium 9.2 Liver Function 12/22/17 Range/Units 17:05 Total Bilirubin 0.6 (0.2-1.0) mg/dL AST 22 (15-37) U/L ALT 25 (10-53) U/L Alkaline Phosphatase 585 H (45-117) U/L Albumin 2.8 L (3.4-5.0) g/dL - Imaging Impressions Chest X-Ray 12/22/17 17:10 CONCLUSION: Caprini VTE Risk Assessment Caprini VTE Risk Assessment: No/Low Risk (score <= 1) VTE Pharmacological Exception Reason: High risk for bleeding VTE Mechanical Exception: LE injury/wound Caprini Risk Assessment Model: Point Value = 1 Point Value = 2 Point Value = 3 Point Value = 5 Age 41-60 Minor surgery BMI > 25 kg/m2 Swollen legs Varicose veins or History of unexplained or recurrent spontaneous Oral contraceptives or hormone replacement Sepsis (< 1 month) Serious lung disease, including pneumonia (< 1 month) Abnormal pulmonary function Acute myocardial infarction Congestive heart failure (< 1 month) History of inflammatory bowel disease Medical patient at bed rest Age 61-74 Arthroscopic surgery Major open surgery (> 45 min) Laparoscopic surgery (> 45 min) Malignancy Confined to bed (> 72 hours) Immobilizing plaster cast Central venous access Age >= 75 History of VTE Family history of VTE Factor V Leiden Prothrombin [id number] Lupus anticoagulant Anticardiolipin antibodies Elevated serum homocysteine Heparin-induced thrombocytopenia Other congenital or acquired thrombophilia Stroke (< 1 month) Elective arthroplasty Hip, pelvis, or leg fracture Acute spinal cord injury (< 1 month) Prophylaxis Regimen: Total Risk Factor Score Risk Level Prophylaxis Regimen 0-1 Low Early ambulation 2 Moderate Order ONE of the following: *Sequential Compression Device (SCD) *Heparin 5000 units SQ BID 3-4 Higher Order ONE of the following medications: *Heparin 5000 units SQ TID *Enoxaparin/Lovenox 40 mg SQ daily (WT < 150 kg, CrCl > 30 mL/min) *Enoxaparin/Lovenox 30 mg SQ daily (WT < 150 kg, CrCl > 10-29 mL/min) *Enoxaparin/Lovenox 30 mg SQ BID (WT < 150 kg, CrCl > 30 mL/min) AND/OR *Sequential Compression Device (SCD) 5 or more Highest Order ONE of the following medications: *Heparin 5000 units SQ TID (Preferred with Epidurals) *Enoxaparin/Lovenox 40 mg SQ daily (WT < 150 kg, CrCl > 30 mL/min) *Enoxaparin/Lovenox 30 mg SQ daily (WT < 150 kg, CrCl > 10-29 mL/min) *Enoxaparin/Lovenox 30 mg SQ BID (WT < 150 kg, CrCl > 30 mL/min) AND *Sequential Compression Device (SCD) Assessment and Plan - Assessment (1) Post op infection Code(s): T81.4XXA - Infection following a procedure, initial encounter Status : Acute (2) ESRD (end stage renal disease) on dialysis Code(s): N18.6 - End stage renal disease; Z99.2 - Dependence on renal dialysis Status: Acute (3) HTN (hypertension) Code(s): I10 - Essential (primary) hypertension Status: Acute (4) DM (diabetes mellitus) Code(s): E11.9 - Type 2 diabetes mellitus without complications Status: Acute - Plan A/P: 1. LLE Post Op Wound Infection: h/o LLE bypass w/ femoral artery endarterectomy by Dr. Brothers, postop complications/infection w/ VAC placement , cultures 10/07/17 +Klebsiella, Rosa and VRE, s/p IV antibiotics, now w / possible recurrent infection. S/p Zosyn in ER, will continue w/ IV Cefepime and Zyvox, monitor for thrombocytopenia closely. S/p eval by Dr. Juares, plans for surgical intervention in am, NPO, analgesics/antiemetics as needed. Consult ID for further evaluation/recommendations regarding antibiotic regimen. Follow up cultures. Wound Consult postop 2. ESRD on HD: M/W/F, follows w/ Dr. Sampson, will consult to resume HD as scheduled. Resume home medications, monitor I/O. 3. DM: H/o DM, not on home medications, Hgb A1c reviewed, 6.6 on 09/14/17, will recheck Hgb A1c, sliding scale w/ Accu-Cheks. 4. HTN: Monitor BP, resume home medications. 5. DVT Prophylaxis: Pharmacologic contraindication due to upcoming surgery, mechanical contraindication due to wound. 6. Social work for d/c planning as needed 7. Case discussed w/ ER physician at length, labs/records/imaging reviewed by me.
[2017-12-22] MEDS ORDERED: Dextrose 50% in Water 50 ML Vial IV.PUSH PRN (19:36)
[2017-12-22] MEDS ORDERED: Vancomycin Inj 2,000 MG in Sodium Chlor 0.9% Inj 500 ML IV.SIG ONE (20:00)
[2017-12-22] MEDS: Gabapentin 100 MG Capsule PO SCH (21:55)
[2017-12-22] MEDS: Carvedilol 6.25 MG Tablet PO SCH (21:56)
[2017-12-22] MEDS: Ezetimibe 10 MG Tablet PO SCH (21:56)
[2017-12-22] MEDS: Senna/Docusate Sodium 8.6/50 MG Tablet PO SCH (22:28)
[2017-12-22] MEDS: Insulin NovoLOG Aspart Correctional Sugar Inj SQ SCH (23:00)
[2017-12-23] MEDS: Levothyroxine 125 MCG Tablet PO SCH (05:51)
[2017-12-23 06:25] LABS: Baso # (Auto) 0.1 th/mm3 (0.0-0.2); Baso % (Auto) 0.9 % (0.0-2.0); Eos # (Auto) 0.2 th/mm3 (0.0-0.4); Eos % (Auto) 1.8 % (0.0-4.0); Hematocrit 28.4 % (35.0-46.0); Hemoglobin 9.3 gm/dL (11.6-15.3); Lymph # (Auto) 1.3 th/mm3 (1.0-4.8); Lymph % (Auto) 9.9 % (9.0-44.0); Mean Corpuscular HGB Conc 32.8 % (32.0-36.0); Mean Corpuscular Hemoglobin 29.5 pg (27.0-34.0); Mean Corpuscular Volume 90.2 fL (80.0-100.0); Mean Platelet Volume 7.4 fL (7.0-11.0); Mono # (Auto) 1.7 th/mm3 (0.0-0.9); Mono % (Auto) 13.5 % (0.0-8.0); Neut # (Auto) 9.4 th/mm3 (1.8-7.7); Neut % (Auto) 73.9 % (16.0-70.0); Platelet Count 283 th/mm3 (150-450); Red Blood Count 3.15 mil/mm3 (4.00-5.30); Red Cell Distribution Width 20.3 % (11.6-17.2); White Blood Count 12.8 th/mm3 (4.0-11.0)
[2017-12-23 06:44] LABS: Albumin 2.3 g/dL (3.4-5.0); Anion Gap 14 meq/L (5-15); Aspartate Aminotransferase 11 U/L (15-37); Blood Urea Nitrogen 34 mg/dL (7-18); Calcium 9.1 mg/dL (8.5-10.1); Carbon Dioxide 24.5 meq/L (21.0-32.0); Chloride 94 meq/L (98-107); Glomerular Filtration Rate 9 mL/min (>89); Glucose,Random 68 mg/dL (74-106); Potassium 4.5 meq/L (3.5-5.1); Sodium 132 meq/L (136-145)
[2017-12-23 06:45] LABS: Alanine Aminotransferase 19 U/L (10-53)
[2017-12-23 06:47] LABS: Alkaline Phosphatase 481 U/L (45-117); Total Protein 6.7 g/dL (6.4-8.2)
[2017-12-23] MEDS ORDERED: Chlorhexidine Gluconate 2% 1 Pack (2 Cloths) TOPICAL SCH (07:15)
[2017-12-23] MEDS ORDERED: Sodium Chlor 0.9% Inj 500 ML IV.SIG SCH (08:00)
[2017-12-23] MEDS ORDERED: Dexmedetomidine Inj 200 MCG/2 ML Vial ONE (09:56)
[2017-12-23] MEDS ORDERED: Heparin 10,000 UNITS/10 ML Vial (for IV use) OTHER PRN ×2 (10:02)
[2017-12-23] MEDS ORDERED: Sod Chloride 0.9% Inj 1,000 ML OTHER PRN ×2 (10:02)
[2017-12-23] MEDS ORDERED: Gelatin 12 MM/7 MM Topical Foam TOPICAL PRN (10:02)
[2017-12-23] MEDS ORDERED: Sod Chloride 0.9% Inj 1,000 ML IV.CONT PRN (10:02)
[2017-12-23] MEDS ORDERED: Albumin Human 25% Inj 100 ML IV.SIG PRN (10:02)
[2017-12-23] MEDS ORDERED: Acetaminophen 325 MG Tablet PO PRN (10:02)
[2017-12-23] MEDS ORDERED: *Meperidine Inj 25 MG/ML Vial PERIprocedural Use ONLY ONE (11:57)
[2017-12-23] MEDS ORDERED: Glycopyrrolate Inj 1 MG/5 ML Syringe IV.PUSH ONE (12:00)
[2017-12-23] MEDS ORDERED: Lidocaine PF 1% Inj 5 ML Syringe INFILTRATN ONE (12:00)
[2017-12-23] MEDS ORDERED: Neostigmine Inj 5 MG/5 ML Syringe IV.PUSH ONE (12:00)
[2017-12-23] MEDS ORDERED: fentaNYL Citrate Inj 100 MCG/2 ML Ampul ONE (12:01)
[2017-12-23] MEDS ORDERED: Morphine Inj 4 MG/ML Vial ONE (12:01)
[2017-12-23] MEDS: Insulin NovoLOG Aspart Correctional Sugar Inj SQ SCH ×4 (12:04→20:53)
[2017-12-23] MEDS: Gabapentin 100 MG Capsule PO SCH ×2 (12:06→20:49)
[2017-12-23] MEDS: Carvedilol 6.25 MG Tablet PO SCH ×2 (12:06→20:53)
[2017-12-23] MEDS: Senna/Docusate Sodium 8.6/50 MG Tablet PO SCH ×2 (12:07→20:49)
[2017-12-23] MEDS ORDERED: *morphine SULFATE 10 MG/ML PERIprocedure ONLY ONE (12:20)
--- NOTE | 2017-12-23 13:23 | P.PNVS ---
Subjective Subjective/Hospital Course: 11/2717 This 72-year-old lady underwent, in August of this year, a successful left leg revascularization with PTFE graft by Dr. Brothers. The patient did well initially, was transferred to [facility], but then developed infection of the left groin with Klebsiella and VRE and Rosa glabrata. She was hospitalized on antibiotics after I and D of the left groin, and a wound VAC was placed. The patient had several episodes of infection, which were treated successfully, still has a wound VAC in the left groin, although I do not see one today, but then she was noted to have redness down the left leg in the area of the distal graft. This was initially aspirated and this seemed to be serous but I was called by Dr. Brothers today to please attend this patient. The patient now comes through the emergency room as admission for incision and drainage of the left leg7. Today patient underwent successful debridement and drainage of the collection of the left popliteal fossa and placement of a new wound VAC to the popliteals and inguinal space Patient will be treated for antibiotics as per infectious disease and be able to go home with wound vacs in a day or 2 depending on the cultures. Pulses remain intact distally Objective Vital Signs / I&O: Vital Signs 12/22/17 15:51 12/22/17 16:35 12/22/17 16:41 Temperature 99.5 F 98.8 F Pulse Rate 67 66 Respiratory Rate 16 17 18 Blood Pressure 121/54 L 110/49 L Pulse Oximetry 98 99 12/22/17 19:46 12/22/17 21:19 12/23/17 00:38 Temperature 98.2 F 97.9 F Pulse Rate 62 62 60 Respiratory Rate 20 18 18 Blood Pressure 107/51 L 123/61 111/53 L Pulse Oximetry 99 95 97 12/23/17 08:00 12/23/17 11:51 12/23/17 12:00 Temperature 98.2 F 98.1 F Pulse Rate 60 58 L 60 Respiratory Rate 16 20 19 Blood Pressure 102/49 L 121/58 L Pulse Oximetry 94 L 99 98 12/23/17 12:15 12/23/17 12:30 12/23/17 12:31 Temperature 98 F Pulse Rate 55 L 56 L Respiratory Rate 18 15 Blood Pressure 115/55 L 111/58 L Pulse Oximetry 100 98 99 12/23/17 12:45 Temperature Pulse Rate 59 L Respiratory Rate 19 Blood Pressure 113/55 L Pulse Oximetry 100 Intake & Output 12/22/17 12/23/17 12/23/17 18:59 06:59 18:59 Intake Total 300 / 300 50 / 50 Output Total 100 / 100 Balance 300 / 300 -50 / -50 Weight 99.79 kg 102 kg Intake: IV 300 / 300 Zyvox 600 mg Premix 300 ML @ 300 / 300 300 mls/hr IV.SIG Q12H RICARDO Rx#: [id number] Anesthesia Amount 50 / 50 Output: Estimated Blood Loss 100 / 100 Other: # Voids 2 Laboratory Results - last 24 hr 12/22/17 12/22/17 12/22/17 17:05 17:05 17:05 WBC 14.5 H RBC 3.44 L Hgb 10.2 L Hct 31.5 L MCV 91.5 MCH 29.6 MCHC 32.4 RDW 20.0 H Plt Count 332 MPV 7.6 Neut % (Auto) 76.9 H Lymph % (Auto) 9.4 Coleman % (Auto) 12.2 H Eos % (Auto) 0.8 Baso % (Auto) 0.7 Neut # (Auto) 11.1 H Lymph # (Auto) 1.4 Coleman # (Auto) 1.8 H Eos # (Auto) 0.1 Baso # (Auto) 0.1 WBC Differential . Differential Comment Auto diff final PT 11.3 INR 1.1 APTT 29.4 Sodium 131 L Potassium 4.0 Chloride 92 L Carbon Dioxide 27.3 Anion Gap 12 BUN 30 H Creatinine 4.40 H Estimated GFR 10 L POC Glucose Random Glucose 129 H Lactic Acid Calcium 9.2 Total Bilirubin 0.6 AST 22 ALT 25 Alkaline Phosphatase 585 H Total Protein 7.5 Albumin 2.8 L 12/22/17 12/23/17 12/23/17 17:05 00:33 05:59 WBC 12.8 H RBC 3.15 L Hgb 9.3 L Hct 28.4 L MCV 90.2 MCH 29.5 MCHC 32.8 RDW 20.3 H Plt Count 283 MPV 7.4 Neut % (Auto) 73.9 H Lymph % (Auto) 9.9 Coleman % (Auto) 13.5 H Eos % (Auto) 1.8 Baso % (Auto) 0.9 Neut # (Auto) 9.4 H Lymph # (Auto) 1.3 Coleman # (Auto) 1.7 H Eos # (Auto) 0.2 Baso # (Auto) 0.1 WBC Differential . Differential Comment Auto diff final PT INR APTT Sodium Potassium Chloride Carbon Dioxide Anion Gap BUN Creatinine Estimated GFR POC Glucose 181 H Random Glucose Lactic Acid 1.2 Calcium Total Bilirubin AST ALT Alkaline Phosphatase Total Protein Albumin 12/23/17 12/23/17 05:59 12:08 WBC RBC Hgb Hct MCV MCH MCHC RDW Plt Count MPV Neut % (Auto) Lymph % (Auto) Coleman % (Auto) Eos % (Auto) Baso % (Auto) Neut # (Auto) Lymph # (Auto) Coleman # (Auto) Eos # (Auto) Baso # (Auto) WBC Differential Differential Comment PT INR APTT Sodium 132 L Potassium 4.5 Chloride 94 L Carbon Dioxide 24.5 Anion Gap 14 BUN 34 H Creatinine 4.94 H Estimated GFR 9 L POC Glucose 104 Random Glucose 68 L Lactic Acid Calcium 9.1 Total Bilirubin 0.6 AST 11 L ALT 19 Alkaline Phosphatase 481 H Total Protein 6.7 D Albumin 2.3 L Microbiology 12/22/17 17:20 Aerobic Blood Culture - Preliminary Blood - Peripheral No growth in 1 day Anaerobic Blood Culture - Preliminary No growth in 1 day 12/22/17 17:05 Aerobic Blood Culture - Preliminary Blood - Peripheral No growth in 1 day Anaerobic Blood Culture - Preliminary No growth in 1 day Impressions Chest X-Ray 12/22/17 17:10 CONCLUSION: No acute cardiopulmonary disease. There is no evidence of pneumonia.
--- NOTE | 2017-12-23 13:37 | MP ---
cc: Hemant Shell MD DATE OF OPERATION: 12/23/2017 DATE OF SURGERY: 12/23/2017 PREOPERATIVE DIAGNOSIS: Infection of the left popliteal space. POSTOPERATIVE DIAGNOSIS: Infection of the left popliteal space. OPERATIVE PROCEDURE: Incision, drainage and debridement of the left popliteal collection. Debridement of the left groin wound. Wound VAC placements to both. SURGEON: MD Suleman ANESTHESIA: General. ESTIMATED BLOOD LOSS: 30 mL DESCRIPTION OF PROCEDURE: The patient was prepped and draped in usual fashion and the left popliteal incision is opened medially at the site of the previous scar. Upon opening of the incision, purulent material escapes which was thick and foul smelling grayish red in color, probably not MRSA, but probably combination of multiple organisms. This is cultured for aerobes and anaerobes. This was washed out. Then, a small retractor was placed and all the devitalized and sort of infected tissue appearing material is debrided and tissue cultures are sent as well. The area irrigated with copious amounts of saline. Meticulous hemostasis obtained. With the new instruments now, the groin incision is clean without and debrided and then wound VACs are placed on both. The patient tolerated the procedure well. MD CARRIE Brown/SINGH , 01:25 PM , 01:30 PM
[2017-12-23 14:55] LABS: Hemoglobin A1c 7.9 % (4.3-6.0)
--- NOTE | 2017-12-23 15:08 | P.PNIM ---
Subjective Interval history: The pt was resting comfortably. She denied any pain. She was awaiting dialysis. She has been having some bleeding from the wound vac site. Discussed with nursing. Family at the bedside. Physical Exam Vital signs: Vital Signs 12/22/17 15:51 12/22/17 16:35 12/22/17 16:41 Temperature 99.5 F 98.8 F Pulse Rate 67 66 Respiratory Rate 16 17 18 Blood Pressure 121/54 L 110/49 L Pulse Oximetry 98 99 12/22/17 19:46 12/22/17 21:19 12/23/17 00:38 Temperature 98.2 F 97.9 F Pulse Rate 62 62 60 Respiratory Rate 20 18 18 Blood Pressure 107/51 L 123/61 111/53 L Pulse Oximetry 99 95 97 12/23/17 08:00 12/23/17 11:51 12/23/17 12:00 Temperature 98.2 F 98.1 F Pulse Rate 60 58 L 60 Respiratory Rate 16 20 19 Blood Pressure 102/49 L 121/58 L Pulse Oximetry 94 L 99 98 12/23/17 12:15 12/23/17 12:30 12/23/17 12:31 Temperature 98 F Pulse Rate 55 L 56 L Respiratory Rate 18 15 Blood Pressure 115/55 L 111/58 L Pulse Oximetry 100 98 99 12/23/17 12:45 Temperature Pulse Rate 59 L Respiratory Rate 19 Blood Pressure 113/55 L Pulse Oximetry 100 Intake & Output 12/22/17 12/23/17 12/23/17 18:59 06:59 18:59 Intake Total 300 / 300 50 / 50 Output Total 100 / 100 Balance 300 / 300 -50 / -50 Weight 99.79 kg 102 kg Intake: IV 300 / 300 Zyvox 600 mg Premix 300 ML @ 300 / 300 300 mls/hr IV.SIG Q12H RICARDO Rx#: [id number] Anesthesia Amount 50 / 50 Output: Estimated Blood Loss 100 / 100 Other: # Voids 2 Narrative: GENERAL: Pleasant female in no acute distress. HEENT: PERRLA, EOMI. No scleral icterus or conjunctival pallor. No lid lag or facial droop. CARDIOVASCULAR: Regular rate and rhythm. No obvious murmurs to auscultation. No chest tenderness to palpation. RESPIRATORY: No obvious rhonchi or wheezing. Clear to auscultation. Breath sounds equal bilaterally. GASTROINTESTINAL: Abdomen soft, non-tender, nondistended. BS normal. MUSCULOSKELETAL: LLE wound VAC with blood around bandages. NEUROLOGICAL: Awake, alert and oriented x4. No focal neurologic deficits. Moving both upper and lower extremities spontaneously. Results - Labs CBC & Chem 7: 12/23/17 05:59 12/23/17 05:59 Laboratory Results - last 24 hr 12/22/17 12/22/17 12/22/17 17:05 17:05 17:05 WBC 14.5 H RBC 3.44 L Hgb 10.2 L Hct 31.5 L MCV 91.5 MCH 29.6 MCHC 32.4 RDW 20.0 H Plt Count 332 MPV 7.6 Neut % (Auto) 76.9 H Lymph % (Auto) 9.4 Swisher % (Auto) 12.2 H Eos % (Auto) 0.8 Baso % (Auto) 0.7 Neut # (Auto) 11.1 H Lymph # (Auto) 1.4 Swisher # (Auto) 1.8 H Eos # (Auto) 0.1 Baso # (Auto) 0.1 WBC Differential . Differential Comment Auto diff final PT 11.3 INR 1.1 APTT 29.4 Sodium 131 L Potassium 4.0 Chloride 92 L Carbon Dioxide 27.3 Anion Gap 12 BUN 30 H Creatinine 4.40 H Estimated GFR 10 L POC Glucose Random Glucose 129 H Lactic Acid Calcium 9.2 Total Bilirubin 0.6 AST 22 ALT 25 Alkaline Phosphatase 585 H Total Protein 7.5 Albumin 2.8 L 12/22/17 12/23/17 12/23/17 17:05 00:33 05:59 WBC 12.8 H RBC 3.15 L Hgb 9.3 L Hct 28.4 L MCV 90.2 MCH 29.5 MCHC 32.8 RDW 20.3 H Plt Count 283 MPV 7.4 Neut % (Auto) 73.9 H Lymph % (Auto) 9.9 Swisher % (Auto) 13.5 H Eos % (Auto) 1.8 Baso % (Auto) 0.9 Neut # (Auto) 9.4 H Lymph # (Auto) 1.3 Swisher # (Auto) 1.7 H Eos # (Auto) 0.2 Baso # (Auto) 0.1 WBC Differential . Differential Comment Auto diff final PT INR APTT Sodium Potassium Chloride Carbon Dioxide Anion Gap BUN Creatinine Estimated GFR POC Glucose 181 H Random Glucose Lactic Acid 1.2 Calcium Total Bilirubin AST ALT Alkaline Phosphatase Total Protein Albumin 12/23/17 12/23/17 05:59 12:08 WBC RBC Hgb Hct MCV MCH MCHC RDW Plt Count MPV Neut % (Auto) Lymph % (Auto) Swisher % (Auto) Eos % (Auto) Baso % (Auto) Neut # (Auto) Lymph # (Auto) Swisher # (Auto) Eos # (Auto) Baso # (Auto) WBC Differential Differential Comment PT INR APTT Sodium 132 L Potassium 4.5 Chloride 94 L Carbon Dioxide 24.5 Anion Gap 14 BUN 34 H Creatinine 4.94 H Estimated GFR 9 L POC Glucose 104 Random Glucose 68 L Lactic Acid Calcium 9.1 Total Bilirubin 0.6 AST 11 L ALT 19 Alkaline Phosphatase 481 H Total Protein 6.7 D Albumin 2.3 L Microbiology 12/22/17 17:20 Blood - Peripheral Aerobic Blood Culture - Preliminary No growth in 1 day 12/22/17 17:20 Blood - Peripheral Anaerobic Blood Culture - Preliminary No growth in 1 day 12/22/17 17:05 Blood - Peripheral Aerobic Blood Culture - Preliminary No growth in 1 day 12/22/17 17:05 Blood - Peripheral Anaerobic Blood Culture - Preliminary No growth in 1 day - Imaging Impressions Chest X-Ray 12/22/17 17:10 CONCLUSION: No acute cardiopulmonary disease. There is no evidence of pneumonia. Assessment and Plan - Assessment (1) Post op infection Code(s): T81.4XXA - Infection following a procedure, initial encounter Status : Acute (2) ESRD (end stage renal disease) on dialysis Code(s): N18.6 - End stage renal disease; Z99.2 - Dependence on renal dialysis Status: Acute (3) HTN (hypertension) Code(s): I10 - Essential (primary) hypertension Status: Acute (4) DM (diabetes mellitus) Code(s): E11.9 - Type 2 diabetes mellitus without complications Status: Acute - Plan LLE post op wound infection H/o LLE bypass w/ femoral artery endarterectomy by Dr. Brothers, postop complications/infection w/ VAC placement 09/23/17, cultures 10/07/17 +Klebsiella, Rosa and VRE, s/p IV antibiotics, now w/ possible recurrent infection. Vascular surgery consult appreciated, s/p debridement and drainage of the collection of the left popliteal fossa and placement of a new wound VAC to the popliteals and inguinal space. - continue IV Cefepime and Zyvox, monitor for thrombocytopenia closely. Consult ID for further evaluation/recommendations regarding antibiotic regimen. - Follow up cultures. - has had bleeding at site of wound vac. Awaiting vascular surgery to re- evaluate. ESRD On HD: M/W/F, follows w/ Dr. Sampson. - resume HD as scheduled. - Resume home medications, monitor I/O. DM H/o DM, not on home medications, Hgb A1c 7.9%. - sliding scale w/ Accu-Cheks. HTN - Monitor BP, resume home medications. DVT Prophylaxis: Pharmacologic contraindication due to surgery, mechanical contraindication due to wound
--- NOTE | 2017-12-23 16:00 | P.CONNP ---
<Ayala Simmons - Last Filed: 12/23/17 15:36> History of Present Illness Service: Nephrology Consult date: 12/23/17 Requesting Physician: Rosie Martinez Reason for Consult: Known ESRD on HD Primary Care Provider: Garret Samaniego MD Family Provider: Garret Samaniego MD Chief Complaint: Leg infection History of Present Illness: The patient is a 72 yo [place] female who is known to our services for ESRD on HD. She presented to this facility yesterday after a visit with Dr. Brothers regarding left groin wound. She underwent a femoral bypass on 08/24/17 with multiple complications including infection & hematoma requiring evacuation and wound vac placement. She completed abx regimen on 11/18/17. She has been having worsening left groin pain for the past few days. Some nausea and vomiting. Seen s/p I&D and debridement of the left popliteal collection and well as debridement of left groin wound. Wound vac present on both sites, but apparent issues involving vac on L popliteal suction. present in the room. Pt groggy, but conversive and appropriate. We have been consulted for HD management Last HD 12/21/17 without complications. 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 HTN (hypertension) High cholesterol Insulin pump in place Type II diabetes mellitus Wound of left groin - Surgical History Surgical History: Surgical History (Last Updated 12/22/17 @ 16:38 by Del Bryant) H/O heart bypass surgery History of appendectomy History of cholecystectomy - Tobacco History Second Hand Smoke Exposure: No Smoking Status: Never smoker - Alcohol History How Often Do You Have a Drink Containing Alcohol: Never - Substance Use History Substance History: No History of Abuse - Travel History Recent Travel in the [place] Within the Last 8 Weeks: No Recent Travel Out of the Country Within the Last 8 Weeks: No - Immunization History Tetanus Immunization: <5 Years Hx Influenza Vaccine This Season: Yes Medications and Allergies Allergies Allergy/AdvReac Type Severity Reaction Status Date / Time amlodipine Allergy Severe Edema, Verified 12/22/17 22:56 Generalized adhesive tape Allergy Unknown Generalized Verified 12/22/17 22:56 Itching Home Medications Medication Instructions Recorded Confirmed Type carvedilol [Coreg] 6.25 mg PO BID 12/22/17 12/22/17 History cinacalcet [Sensipar] 30 mg PO DAILY 12/22/17 12/22/17 History clopidogrel [Plavix] 75 mg PO DAILY 12/22/17 12/22/17 History ezetimibe-simvastatin [Vytorin 1 tab PO QPM 12/22/17 12/22/17 History 10-80] gabapentin 100 mg PO BID 12/22/17 12/22/17 History insulin pump-infus. set-meter 12/22/17 12/22/17 History levothyroxine 125 mcg PO DAILY 12/22/17 12/22/17 History ranitidine HCl [Zantac] 150 mg PO BID 12/22/17 12/22/17 History sevelamer carbonate [Renvela] 800 mg PO QID 12/22/17 12/22/17 History Active Medications: Active Medications Acetaminophen (Tylenol) 650 mg PO Q4H PRN PRN Reason: Temp > 100.4 Acetaminophen (Tylenol) 650 mg PO UNSCH PRN PRN Reason: SEE LABEL COMMENTS Hydrocodone Bitart/Acetaminophen ([place] 5/325) 1 tab PO Q4H PRN PRN Reason: PAIN SCALE 1 TO 10 Last Admin: 12/23/17 05:51 Dose: 1 tab Al Hydroxide/Mg Hydroxide (Milk Of Magnsulma Liq) 30 ml PO Q12H PRN PRN Reason: Mild Constipation Atorvastatin Calcium (Lipitor) 40 mg PO [facility] Last Admin: 12/22/17 21:55 Dose: 40 mg Bisacodyl (Dulcolax Supp) 10 mg RECTAL DAILY PRN PRN Reason: SEVERE CONSITIPATION Carvedilol (Coreg) 6.25 mg PO BID [facility] Last Admin: 12/23/17 12:06 Dose: Not Given Chlorhexidine Gluconate (Chlorhexidine 2% Cloth) 3 pack 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 [facility] Stop: 12/26/17 07:12 Cinacalcet (Sensipar) 30 mg PO DAILY [facility] Last Admin: 12/23/17 12:07 Dose: Not Given Clonidine HCl (Catapres) 0.1 mg PO UNSCH PRN PRN Reason: SEE LABEL COMMENTS Dextrose (D50w Vial) 50 ml IV.PUSH UNSCH PRN PRN Reason: PER HYPOGLYCEMIA PROTOCOL Diphenhydramine HCl (Benadryl) 25 mg PO UNSCH PRN PRN Reason: SEE LABEL COMMENTS Ezetimibe (Zetia) 10 mg PO HS [facility] Last Admin: 12/22/17 21:56 Dose: 10 mg Gabapentin (Neurontin) 100 mg PO BID [facility] Last Admin: 12/23/17 12:06 Dose: Not Given Gelatin (Gelfoam 12 Mm/7 Mm Topical) 1 foam TOPICAL UNSCH PRN PRN Reason: help stop bleeding from site Gentamicin Sulfate (Gentamicin Inj) 20 mg OTHER WITH DIALYSIS PRN PRN Reason: Dwell Gentamycin Lock Glucagon (Glucagon Inj) 1 mg OTHER PRN PRN PRN Reason: for Hypoglycemia Protocol Linezolid (Zyvox 600 Mg Premix) 300 mls @ 300 mls/hr IV.SIG Q12H [facility] Last Admin: 12/23/17 12:05 Dose: Not Given Lactated Ringer's (Lr 1000 Ml Inj) 1,000 mls @ 30 mls/hr IV.SIG .Q24H [facility] Stop: 12/26/17 07:12 Last Admin: 12/23/17 12:04 Dose: Not Given Sodium Chloride (Ns Inj) 500 mls @ 30 mls/hr IV.SIG .Q10H [facility] Stop: 12/26/17 07:12 Albumin Human (Flexbumin 25% Inj) 100 mls @ 60 mls/hr IV.SIG WITH DIALYSIS PRN PRN Reason: hypotension / volume replace Sodium Chloride (Ns Inj) 1,000 mls @ 0 mls/hr OTHER .Q0M PRN PRN Reason: for prime and rinse back Sodium Chloride (Ns Inj) 1,000 mls @ 200 mls/hr OTHER .Q5H PRN PRN Reason: for dialyzer flush PRN Sodium Chloride (Ns Inj) 1,000 mls @ 0 mls/hr IV.CONT .Q0M PRN PRN Reason: hypotension / volume replace Cefepime HCl 1,000 mg/ Sodium (Chloride) 100 mls @ 200 mls/hr IV.SIG Q24H [facility] Insulin Aspart (Novolog Insulin Correctional Sugar Inj) 0 unit SQ ACHS [facility]; Protocol Last Admin: 12/23/17 12:05 Dose: Not Given Lactulose (Lactulose Liq) 30 ml PO DAILY PRN PRN Reason: SEVERE CONSITIPATION Levothyroxine Sodium (Synthroid) 125 mcg PO DAILY@0600 [facility] Last Admin: 12/23/17 05:51 Dose: 125 mcg Mannitol (Mannitol Inj) 12.5 gm IV.PUSH UNSCH PRN PRN Reason: hypotension / volume replace Miscellaneous Information ([employer] [facility] [employer] Nursing Information) 1 each OTHER UNSCH PRN PRN Reason: SEE LABEL COMMENTS Stop: 12/24/17 13:11 Miscellaneous Information ([employer] [facility] [employer] Nursing Information) 1 each OTHER UNSCH PRN PRN Reason: SEE LABEL COMMENTS Stop: 12/24/17 13:14 Nitroglycerin (Nitrostat Sl) 0.4 mg SL Q5M PRN PRN Reason: CHEST PAIN Ondansetron HCl (Zofran Odt) 4 mg PO Q6H PRN PRN Reason: NAUSEA OR VOMITING Ondansetron HCl (Zofran Odt) 4 mg PO UNSCH PRN PRN Reason: NAUSEA OR VOMITING Povidone Iodine (Betadine 5% Antisepsis Kit) 1 applicatio EACH 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 [facility] Stop: 12/26/17 07:12 Senna/Docusate Sodium (Lucinda-Colace) 1 tab PO BID [facility] Last Admin: 12/23/17 12:07 Dose: Not Given Sennosides (Senokot) 17.2 mg PO Q12H PRN PRN Reason: Moderate Constipation Sevelamer Carbonate (Renvela) 800 mg PO ACHS [facility] Last Admin: 12/23/17 12:05 Dose: Not Given Sodium Chloride (Ns Flush) 2 ml IV.FLUSH BID [facility] Last Admin: 12/23/17 12:06 Dose: Not Given Sodium Chloride (Ns Flush) 2 ml IV.FLUSH PRN PRN PRN Reason: FLUSH AFTER USING IV ACCESS Sodium Chloride (Ns Flush) 5 ml IV.FLUSH UNSCH PRN PRN Reason: flush each lumen during HD Temazepam (Restoril) 15 mg PO HS PRN PRN Reason: INSOMNIA Exam Vital signs: Vital Signs 12/22/17 15:51 12/22/17 16:35 12/22/17 16:41 Temperature 99.5 F 98.8 F Pulse Rate 67 66 Respiratory Rate 16 17 18 Blood Pressure 121/54 L 110/49 L Pulse Oximetry 98 99 12/22/17 19:46 12/22/17 21:19 12/23/17 00:38 Temperature 98.2 F 97.9 F Pulse Rate 62 62 60 Respiratory Rate 20 18 18 Blood Pressure 107/51 L 123/61 111/53 L Pulse Oximetry 99 95 97 12/23/17 08:00 12/23/17 11:51 12/23/17 12:00 Temperature 98.2 F 98.1 F Pulse Rate 60 58 L 60 Respiratory Rate 16 20 19 Blood Pressure 102/49 L 121/58 L Pulse Oximetry 94 L 99 98 12/23/17 12:15 12/23/17 12:30 12/23/17 12:31 Temperature 98 F Pulse Rate 55 L 56 L Respiratory Rate 18 15 Blood Pressure 115/55 L 111/58 L Pulse Oximetry 100 98 99 12/23/17 12:45 Temperature Pulse Rate 59 L Respiratory Rate 19 Blood Pressure 113/55 L Pulse Oximetry 100 Intake & Output 12/22/17 12/23/17 12/23/17 18:59 06:59 18:59 Intake Total 300 / 300 50 / 50 Output Total 100 / 100 Balance 300 / 300 -50 / -50 Weight 99.79 kg 102 kg Intake: IV 300 / 300 Zyvox 600 mg Premix 300 ML @ 300 / 300 300 mls/hr IV.SIG Q12H [facility] Rx#: [id number] Anesthesia Amount 50 / 50 Output: Estimated Blood Loss 100 / 100 Other: # Voids 2 - Constitutional no acute distress (medicated, but alert and appropriate) - Routine HEENT Exam Head: Present: normocephalic - Routine Neck Exam Present: supple - Routine Respiratory Exam Present: accessory muscle use, CTA bilaterally - Routine Cardiovascular Exam Present: RRR, S1, S2 - Routine Abdominal Exam Present: soft - Routine Extremities Exam Comments: Wound Vac in place in left groin and in medial popliteal region. Popliteal vac does not appear to be suctioning properly. L leg is mildly edematous. Trace edema in hips. - Routine Neurological Exam Present: alert Results - Lab Results 12/23/17 05:59 12/23/17 05:59 Most recent lab results Calcium 9.1 mg/dL (8.5-10.1) 12/23/17 05:59 Assessment and Plan - Assessment (1) ESRD (end stage renal disease) on dialysis Code(s): N18.6 - End stage renal disease; Z99.2 - Dependence on renal dialysis Status: Acute Plan: Typical HD days MWF Will place on HD first thing in the AM as she is currently undergoing additional procedure with her wound vac this evening. workplace relations adviser contacted and says they can bring her down first thing in the AM. Will plan MWF thereafter. Medications should be adjusted for the patient's ESRD. Avoid gadolinium. (2) Cellulitis Code(s): L03.90 - Cellulitis, unspecified Status: Acute Plan: Management as per vacular team. Cx pending Received Vanc and Zosyn in the ED. Now on Cefepime. 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 HTN (hypertension) High cholesterol Insulin pump in place Type II diabetes mellitus Wound of left groin - Surgical History Surgical History: Surgical History (Last Updated 12/22/17 @ 16:38 by Del Bryant) H/O heart bypass surgery History of appendectomy History of cholecystectomy Medications and Allergies Active Medications: Active Medications Acetaminophen (Tylenol) 650 mg PO Q4H PRN PRN Reason: Temp > 100.4 Acetaminophen (Tylenol) 650 mg PO UNSCH PRN PRN Reason: SEE LABEL COMMENTS Hydrocodone Bitart/Acetaminophen ([place] 5/325) 1 tab PO Q4H PRN PRN Reason: PAIN SCALE 1 TO 10 Last Admin: 12/24/17 12:19 Dose: 1 tab Al Hydroxide/Mg Hydroxide (Milk Of Magnesia Liq) 30 ml PO Q12H PRN PRN Reason: Mild Constipation Atorvastatin Calcium (Lipitor) 40 mg PO HS [facility] Last Admin: 12/23/17 20:48 Dose: 40 mg Bisacodyl (Dulcolax Supp) 10 mg RECTAL DAILY PRN PRN Reason: SEVERE CONSITIPATION Carvedilol (Coreg) 6.25 mg PO BID [facility] Last Admin: 12/24/17 10:17 Dose: Not Given Chlorhexidine Gluconate (Chlorhexidine 2% Cloth) 3 pack [employer] 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 [facility] Stop: 12/26/17 07:12 Cinacalcet (Sensipar) 30 mg PO DAILY [facility] Last Admin: 12/24/17 10:18 Dose: Not Given Clonidine HCl (Catapres) 0.1 mg PO UNSCH PRN PRN Reason: SEE LABEL COMMENTS Dextrose (D50w Vial) 50 ml IV.PUSH UNSCH PRN PRN Reason: PER HYPOGLYCEMIA PROTOCOL Diphenhydramine HCl (Benadryl) 25 mg PO UNSCH PRN PRN Reason: SEE LABEL COMMENTS Ezetimibe (Zetia) 10 mg PO HS [facility] Last Admin: 12/23/17 20:49 Dose: 10 mg Gabapentin (Neurontin) 100 mg PO BID [facility] Last Admin: 12/24/17 10:17 Dose: Not Given Gelatin (Gelfoam 12 Mm/7 Mm Topical) 1 foam TOPICAL UNSCH PRN PRN Reason: help stop bleeding from site Gentamicin Sulfate (Gentamicin Inj) 20 mg OTHER WITH DIALYSIS PRN PRN Reason: Dwell Gentamycin Lock Glucagon (Glucagon Inj) 1 mg OTHER PRN PRN PRN Reason: for Hypoglycemia Protocol Lactated Ringer's (Lr 1000 Ml Inj) 1,000 mls @ 30 mls/hr IV.SIG .Q24H [facility] Stop: 12/26/17 07:12 Last Admin: 12/24/17 07:53 Dose: Not Given Sodium Chloride (Ns Inj) 500 mls @ 30 mls/hr IV.SIG .Q10H [facility] Stop: 12/26/17 07:12 Albumin Human (Flexbumin 25% Inj) 100 mls @ 60 mls/hr IV.SIG WITH DIALYSIS PRN PRN Reason: hypotension / volume replace Last Infusion: 12/24/17 15:51 Dose: Infused Sodium Chloride (Ns Inj) 1,000 mls @ 0 mls/hr OTHER .Q0M PRN PRN Reason: for prime and rinse back Sodium Chloride (Ns Inj) 1,000 mls @ 200 mls/hr OTHER .Q5H PRN PRN Reason: for dialyzer flush PRN Sodium Chloride (Ns Inj) 1,000 mls @ 0 mls/hr IV.CONT .Q0M PRN PRN Reason: hypotension / volume replace Cefepime HCl 1,000 mg/ Sodium (Chloride) 100 mls @ 200 mls/hr IV.SIG Q24H [facility] Last Infusion: 12/24/17 15:49 Dose: Infused Micafungin Sodium 150 mg/ (Sodium Chloride) 100 mls @ 100 mls/hr IV.SIG Q24H [facility] Last Infusion: 12/24/17 10:26 Dose: Infused Linezolid (Zyvox 600 Mg Premix) 300 mls @ 300 mls/hr IV.SIG Q12H [facility] Last Admin: 12/24/17 13:40 Dose: Not Given Insulin Aspart (Novolog Insulin Correctional Sugar Inj) 0 unit SQ [facility]; Protocol Last Admin: 12/24/17 12:11 Dose: Not Given Lactulose (Lactulose Liq) 30 ml PO DAILY PRN PRN Reason: SEVERE CONSITIPATION Levothyroxine Sodium (Synthroid) 125 mcg PO DAILY@0600 [facility] Last Admin: 12/24/17 05:57 Dose: 125 mcg Mannitol (Mannitol Inj) 12.5 gm IV.PUSH UNSCH PRN PRN Reason: hypotension / volume replace Nitroglycerin (Nitrostat Sl) 0.4 mg SL Q5M PRN PRN Reason: CHEST PAIN Ondansetron HCl (Zofran Odt) 4 mg PO Q6H PRN PRN Reason: NAUSEA OR VOMITING Ondansetron HCl (Zofran Odt) 4 mg PO UNSCH PRN PRN Reason: NAUSEA OR VOMITING Povidone Iodine (Betadine 5% Antisepsis Kit) 1 applicatio EACH 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 [facility] Stop: 12/26/17 07:12 Senna/Docusate Sodium (Lucinda-Colace) 1 tab PO BID [facility] Last Admin: 12/24/17 10:18 Dose: Not Given Sennosides (Senokot) 17.2 mg PO Q12H PRN PRN Reason: Moderate Constipation Sevelamer Carbonate (Renvela) 800 mg PO [facility] Last Admin: 12/24/17 12:21 Dose: 800 mg Sodium Chloride (Ns Flush) 2 ml IV.FLUSH BID [facility] Last Admin: 12/24/17 10:17 Dose: Not Given Sodium Chloride (Ns Flush) 2 ml IV.FLUSH PRN PRN PRN Reason: FLUSH AFTER USING IV ACCESS Sodium Chloride (Ns Flush) 5 ml IV.FLUSH UNSCH PRN PRN Reason: flush each lumen during HD Temazepam (Restoril) 15 mg PO HS PRN PRN Reason: INSOMNIA Exam Vital signs: Vital Signs 12/23/17 17:55 12/23/17 20:41 12/24/17 00:25 Temperature 97.1 F L 97.2 F L Pulse Rate 56 L 56 L Respiratory Rate 17 17 Blood Pressure 108/53 L 114/56 L Pulse Oximetry 99 96 96 12/24/17 04:55 12/24/17 08:00 12/24/17 12:00 Temperature 97.2 F L 97.1 F L 97.2 F L Pulse Rate 60 59 L 81 Respiratory Rate 18 16 18 Blood Pressure 109/52 L 118/53 L 116/56 L Pulse Oximetry 97 97 98 Intake & Output 12/23/17 12/24/17 12/24/17 18:59 06:59 18:59 Intake Total 50 / 50 780 / 780 750 / 750 Output Total 300 / 300 75 / 75 3500 / 3500 Balance -250 / -250 705 / 705 -2750 / -2750 Weight 102 kg Intake: IV 300 / 300 650 / 650 Flexbumin 25% Inj 100 ML @ 60 100 / 100 mls/hr IV.SIG WITH DIALYSIS PRN Rx#:[id number] Maxipime Inj 1,000 MG In NS Inj 100 / 100 100 ML @ 200 mls/hr IV.SIG Q24H [facility] Rx#:[id number] Zyvox 600 mg Premix 300 ML @ 300 / 300 300 / 300 300 mls/hr IV.SIG Q12H [facility] Rx#: [id number] Mycamine Inj 150 MG In NS Inj 100 / 100 100 ML @ 100 mls/hr IV.SIG Q24H [facility] Rx#:[id number] Oral 480 / 480 100 / 100 Anesthesia Amount 50 / 50 Output: Hemodialysis Amount 3500 / 3500 Estimated Blood Loss 100 / 100 Wound Vac Amount 200 / 200 75 / 75 LLE and groin 200 / 200 75 / 75 Other: Mode Setting LLE and groin Continuous Continuous Results - Lab Results 12/24/17 06:42 12/24/17 06:42 Most recent lab results Calcium 9.0 mg/dL (8.5-10.1) 12/24/17 06:42 Phosphorus 8.4 mg/dL (2.5-4.9) H 12/24/17 06:42 Assessment and Plan - Assessment (1) ESRD (end stage renal disease) on dialysis Code(s): N18.6 - End stage renal disease; Z99.2 - Dependence on renal dialysis Status: Acute (2) Cellulitis Code(s): L03.90 - Cellulitis, unspecified Status: Acute (3) DM (diabetes mellitus) Code(s): E11.9 - Type 2 diabetes mellitus without complications Status: Acute - Attending Attestation The exam, history, and the medical decision-making described in the above note were completed with the assistance of the RADHA. I reviewed and agree with the findings presented. <Ayala Simmons - Last Filed: 12/23/17 15:36> (2) Cellulitis Qualifiers: Site of cellulitis: extremity Site of cellulitis of extremity: lower extremity Laterality: left Qualified Code(s): L03.116 - Cellulitis of left lower limb <Ryan Sampson - Last Filed: 12/24/17 16:12> (2) Cellulitis Qualifiers: Site of cellulitis: extremity Site of cellulitis of extremity: lower extremity Laterality: left Qualified Code(s): L03.116 - Cellulitis of left lower limb
--- NOTE | 2017-12-23 16:08 | P.CONID ---
History of Present Illness Service: ID Consult date: 12/23/17 Requesting Physician: Hemant Shell Reason for Consult: infected graft Primary Care Provider: Garret Samaniego MD Family Provider: Garret Samaniego MD Chief Complaint: Leg infection History of Present Illness: 72 yo [place] life time no smoker with h/o hypertension, diabetes mellitus, coronary artery disease, peripheral vascular disease, hyperlipidemia, end-stage renal disease, left femoral artery bypass graft done on 08/31/2017. In October pt presented with infected groin wound, cultures were positive for VRE , Klebsiella and Rosa glabrata. She was hospitalized on antibiotics after I and D of the left groin, and a wound VAC was placed She was cont on VAC treatment followed by Dr Mireles as o/p Pt presented few days ago after she was noted to have redness down the left leg in the area of the distal graft. This was initially aspirated and this seemed to be infected. SHe underwent I+D by Dr Shell earlier today I saw her in PACU shortly after surgery She is afebrile, WBC on presentation 14.5 K she was given several abx, including cefepime, zosyn and vancomycin; now on zyvox,cefepime OP Gstain showed purulence, no org's Review of Systems All other systems reviewed negative except as stated in HPI PMFSH - History History Provided By: Patient - Medical History Medical History: Medical History (Last Reviewed 02/19/18 @ 17:31 by Richa Gutierrez MD) Hypothyroidism (Acute) Coronary artery disease (Acute) Retinopathy due to secondary diabetes (Acute) Wound of left groin (Acute) ESRD on dialysis (Acute) Insulin pump in place (Acute) Type II diabetes mellitus (Acute) High cholesterol (Acute) HTN (hypertension) (Acute) 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 (Acute) AV (arteriovenous fistula) - Surgical History Surgical History: Surgical History (Last Reviewed 02/19/18 @ 17:31 by Richa Gutierrez MD) History of coronary artery bypass graft x 3 (Acute) History of cholecystectomy (Acute) History of appendectomy (Acute) H/O heart bypass surgery (Acute) Hx of AKA (above knee amputation) - Family History Family History: Family History (Last Reviewed 02/19/18 @ 17:31 by Richa Gutierrez MD) Mother Cancer Lung cancer Sister Uterine cancer Father Congestive heart failure - Social History I have reviewed the patient's Social History: Yes - Tobacco History Second Hand Smoke Exposure: No Smoking Status: Never smoker - Alcohol History How Often Do You Have a Drink Containing Alcohol: Never - Substance Use History Substance History: No History of Abuse - Travel History Recent Travel in the [place] Within the Last 8 Weeks: No Recent Travel Out of the Country Within the Last 8 Weeks: No - Immunization History Tetanus Immunization: <5 Years Hx Influenza Vaccine This Season: Yes Medications and Allergies Active Medications: Active Medications Acetaminophen (Tylenol) 650 mg PO Q4H PRN PRN Reason: Temp > 100.4 Acetaminophen (Tylenol) 650 mg PO UNSCH PRN PRN Reason: SEE LABEL COMMENTS Hydrocodone Bitart/Acetaminophen ([place] 5/325) 1 tab PO Q4H PRN PRN Reason: PAIN SCALE 1 TO 10 Last Admin: 12/23/17 05:51 Dose: 1 tab Al Hydroxide/Mg Hydroxide (Milk Of Magnesia Liq) 30 ml PO Q12H PRN PRN Reason: Mild Constipation Atorvastatin Calcium (Lipitor) 40 mg PO [facility] Last Admin: 12/22/17 21:55 Dose: 40 mg Bisacodyl (Dulcolax Supp) 10 mg RECTAL DAILY PRN PRN Reason: SEVERE CONSITIPATION Carvedilol (Coreg) 6.25 mg PO BID [facility] Last Admin: 12/23/17 12:06 Dose: Not Given Chlorhexidine Gluconate (Chlorhexidine 2% Cloth) 3 pack [employer] [facility] Stop: 12/26/17 07:12 Cinacalcet (Sensipar) 30 mg PO DAILY [facility] Last Admin: 12/23/17 12:07 Dose: Not Given Clonidine HCl (Catapres) 0.1 mg PO UNSCH PRN PRN Reason: SEE LABEL COMMENTS Dextrose (D50w Vial) 50 ml IV.PUSH UNSCH PRN PRN Reason: PER HYPOGLYCEMIA PROTOCOL Diphenhydramine HCl (Benadryl) 25 mg PO UNSCH PRN PRN Reason: SEE LABEL COMMENTS Ezetimibe (Zetia) 10 mg PO [facility] Last Admin: 12/22/17 21:56 Dose: 10 mg Gabapentin (Neurontin) 100 mg PO BID [facility] Last Admin: 12/23/17 12:06 Dose: Not Given Gelatin (Gelfoam 12 Mm/7 Mm Topical) 1 foam TOPICAL UNSCH PRN PRN Reason: help stop bleeding from site Gentamicin Sulfate (Gentamicin Inj) 20 mg OTHER WITH DIALYSIS PRN PRN Reason: Dwell Gentamycin Lock Glucagon (Glucagon Inj) 1 mg OTHER PRN PRN PRN Reason: for Hypoglycemia Protocol Linezolid (Zyvox 600 Mg Premix) 300 mls @ 300 mls/hr IV.SIG Q12H [facility] Last Admin: 12/23/17 12:05 Dose: Not Given Lactated Ringer's (Lr 1000 Ml Inj) 1,000 mls @ 30 mls/hr IV.SIG .Q24H [facility] Stop: 12/26/17 07:12 Last Admin: 12/23/17 12:04 Dose: Not Given Sodium Chloride (Ns Inj) 500 mls @ 30 mls/hr IV.SIG .Q10H [facility] Stop: 12/26/17 07:12 Albumin Human (Flexbumin 25% Inj) 100 mls @ 60 mls/hr IV.SIG WITH DIALYSIS PRN PRN Reason: hypotension / volume replace Sodium Chloride (Ns Inj) 1,000 mls @ 0 mls/hr OTHER .Q0M PRN PRN Reason: for prime and rinse back Sodium Chloride (Ns Inj) 1,000 mls @ 200 mls/hr OTHER .Q5H PRN PRN Reason: for dialyzer flush PRN Sodium Chloride (Ns Inj) 1,000 mls @ 0 mls/hr IV.CONT .Q0M PRN PRN Reason: hypotension / volume replace Cefepime HCl 1,000 mg/ Sodium (Chloride) 100 mls @ 200 mls/hr IV.SIG Q24H [facility] Insulin Aspart (Novolog Insulin Correctional Sugar Inj) 0 unit SQ ACHS [facility]; Protocol Last Admin: 12/23/17 12:05 Dose: Not Given Lactulose (Lactulose Liq) 30 ml PO DAILY PRN PRN Reason: SEVERE CONSITIPATION Levothyroxine Sodium (Synthroid) 125 mcg PO DAILY@0600 [facility] Last Admin: 12/23/17 05:51 Dose: 125 mcg Mannitol (Mannitol Inj) 12.5 gm IV.PUSH UNSCH PRN PRN Reason: hypotension / volume replace Miscellaneous Information (Misc Nursing Information) 1 each OTHER UNSCH PRN PRN Reason: SEE LABEL COMMENTS Stop: 12/24/17 13:11 Miscellaneous Information ([facility] [place] [facility]) 1 each OTHER UNSCH PRN PRN Reason: SEE LABEL COMMENTS Stop: 12/24/17 13:14 Nitroglycerin (Nitrostat Sl) 0.4 mg SL Q5M PRN PRN Reason: CHEST PAIN Ondansetron HCl (Zofran Odt) 4 mg PO Q6H PRN PRN Reason: NAUSEA OR VOMITING Ondansetron HCl (Zofran Odt) 4 mg PO UNSCH PRN PRN Reason: NAUSEA OR VOMITING Povidone Iodine (Betadine 5% Antisepsis Kit) 1 applicatio EACH [employer] [facility] Stop: 12/26/17 07:12 Senna/Docusate Sodium (Lucinda-Colace) 1 tab PO BID [facility] Last Admin: 12/23/17 12:07 Dose: Not Given Sennosides (Senokot) 17.2 mg PO Q12H PRN PRN Reason: Moderate Constipation Sevelamer Carbonate (Renvela) 800 mg PO ACHS [facility] Last Admin: 12/23/17 12:05 Dose: Not Given Sodium Chloride (Ns Flush) 2 ml IV.FLUSH BID [facility] Last Admin: 12/23/17 12:06 Dose: Not Given Sodium Chloride (Ns Flush) 2 ml IV.FLUSH PRN PRN PRN Reason: FLUSH AFTER USING IV ACCESS Sodium Chloride (Ns Flush) 5 ml IV.FLUSH UNSCH PRN PRN Reason: flush each lumen during HD Temazepam (Restoril) 15 mg PO HS PRN PRN Reason: INSOMNIA Allergies Allergy/AdvReac Type Severity Reaction Status Date / Time amlodipine Allergy Severe Edema, Verified 12/22/17 22:56 Generalized adhesive tape Allergy Unknown Generalized Verified 12/22/17 22:56 Itching Home Medications Medication Instructions Recorded Confirmed Type insulin pump-infus. set-meter 12/22/17 01/16/18 History Exam Vital signs: Vital Signs 12/22/17 16:35 12/22/17 16:41 12/22/17 19:46 Temperature 98.8 F Pulse Rate 66 62 Respiratory Rate 17 18 20 Blood Pressure 110/49 L 107/51 L Pulse Oximetry 99 99 12/22/17 21:19 12/23/17 00:38 12/23/17 08:00 Temperature 98.2 F 97.9 F 98.2 F Pulse Rate 62 60 60 Respiratory Rate 18 18 16 Blood Pressure 123/61 111/53 L Pulse Oximetry 95 97 94 L 12/23/17 11:51 12/23/17 12:00 12/23/17 12:15 Temperature 98.1 F Pulse Rate 58 L 60 55 L Respiratory Rate 20 19 18 Blood Pressure 102/49 L 121/58 L 115/55 L Pulse Oximetry 99 98 100 12/23/17 12:30 12/23/17 12:31 12/23/17 12:45 Temperature 98 F Pulse Rate 56 L 59 L Respiratory Rate 15 19 Blood Pressure 111/58 L 113/55 L Pulse Oximetry 98 99 100 Intake & Output 12/22/17 12/23/17 12/23/17 18:59 06:59 18:59 Intake Total 300 / 300 50 / 50 Output Total 100 / 100 Balance 300 / 300 -50 / -50 Weight 99.79 kg 102 kg Intake: IV 300 / 300 Zyvox 600 mg Premix 300 ML @ 300 / 300 300 mls/hr IV.SIG Q12H [facility] Rx#: [id number] Anesthesia Amount 50 / 50 Output: Estimated Blood Loss 100 / 100 Other: # Voids 2 - Constitutional no acute distress, morbidly obese - Routine HEENT Exam Head: Present: normocephalic, atraumatic Eye: Present: EOMI, PERRL ENT: Present: mucous membranes moist, oropharynx clear - Routine Neck Exam Present: supple, full ROM, trachea midline - Routine Respiratory Exam Present: decreased breath sounds (habiitus), CTA bilaterally - Routine Cardiovascular Exam Present: RRR, S1, S2 Comments: no JVD - Routine Abdominal Exam Present: soft, normoactive bowel sounds Comments: no organomegaly or masses - Routine Extremities Exam Comments: R foot with cyanosis, cool to cold to touch R heel wound showing poor healing signs L foot is warm, well perfused; + edema LLE edematous , + erythema induration @ distal medial aspect VAC in place with serosang dc L groin with VAC in place with serosang dc - Routine Skin Exam Present: intact, warm - Routine Neurological Exam Present: alert, oriented X3, CN II-XII intact, moving all extremities, vision grossly intact, hearing grossly intact - Routine Psychiatric Exam Present: normal affect, cooperative Results - Labs CBC & Chem 7: 12/27/17 05:04 12/27/17 05:04 Labs: Laboratory Results - last 24 hr 12/22/17 12/22/17 12/22/17 17:05 17:05 17:05 WBC 14.5 H RBC 3.44 L Hgb 10.2 L Hct 31.5 L MCV 91.5 MCH 29.6 MCHC 32.4 RDW 20.0 H Plt Count 332 MPV 7.6 Neut % (Auto) 76.9 H Lymph % (Auto) 9.4 [place] % (Auto) 12.2 H Eos % (Auto) 0.8 Baso % (Auto) 0.7 Neut # (Auto) 11.1 H Lymph # (Auto) 1.4 [place] # (Auto) 1.8 H Eos # (Auto) 0.1 Baso # (Auto) 0.1 WBC Differential . Differential Comment Auto diff final PT 11.3 INR 1.1 APTT 29.4 Sodium 131 L Potassium 4.0 Chloride 92 L Carbon Dioxide 27.3 Anion Gap 12 BUN 30 H Creatinine 4.40 H Estimated GFR 10 L POC Glucose Random Glucose 129 H Hemoglobin A1c Lactic Acid Calcium 9.2 Total Bilirubin 0.6 AST 22 ALT 25 Alkaline Phosphatase 585 H Total Protein 7.5 Albumin 2.8 L 12/22/17 12/23/17 12/23/17 17:05 00:33 05:59 WBC 12.8 H RBC 3.15 L Hgb 9.3 L Hct 28.4 L MCV 90.2 MCH 29.5 MCHC 32.8 RDW 20.3 H Plt Count 283 MPV 7.4 Neut % (Auto) 73.9 H Lymph % (Auto) 9.9 [place] % (Auto) 13.5 H Eos % (Auto) 1.8 Baso % (Auto) 0.9 Neut # (Auto) 9.4 H Lymph # (Auto) 1.3 [place] # (Auto) 1.7 H Eos # (Auto) 0.2 Baso # (Auto) 0.1 WBC Differential . Differential Comment Auto diff final PT INR APTT Sodium Potassium Chloride Carbon Dioxide Anion Gap BUN Creatinine Estimated GFR POC Glucose 181 H Random Glucose Hemoglobin A1c Lactic Acid 1.2 Calcium Total Bilirubin AST ALT Alkaline Phosphatase Total Protein Albumin 07/27/18 07/27/18 07/27/18 05:59 05:59 12:08 WBC RBC Hgb Hct MCV MCH MCHC RDW Plt Count MPV Neut % (Auto) Lymph % (Auto) [place] % (Auto) Eos % (Auto) Baso % (Auto) Neut # (Auto) Lymph # (Auto) [place] # (Auto) Eos # (Auto) Baso # (Auto) WBC Differential Differential Comment PT INR APTT Sodium 132 L Potassium 4.5 Chloride 94 L Carbon Dioxide 24.5 Anion Gap 14 BUN 34 H Creatinine 4.94 H Estimated GFR 9 L POC Glucose 104 Random Glucose 68 L Hemoglobin A1c 7.9 H Lactic Acid Calcium 9.1 Total Bilirubin 0.6 AST 11 L ALT 19 Alkaline Phosphatase 481 H Total Protein 6.7 D Albumin 2.3 L - Imaging Impressions Chest X-Ray 12/22/17 17:10 CONCLUSION: No acute cardiopulmonary disease. There is no evidence of pneumonia. Assessment and Plan - Plan PVD ESRD Multiple med probx sp left femoral artery bypass graft done on 08/31/2017. s/p recent infection with VRE, Klebsiella, Rosa glabrata of the proximal graft aspect Now new infection of the distal aspect of the PTFE graft of LLE RECOMMENDATIONS: cont zyvox cefepime micafungin dw Dr Shell will fu op clx Dr Kc to resume care starting tomorrow
[2017-12-23] MEDS ORDERED: EZETIMIBE SIMVASTATIN PO SCH (18:00)
[2017-12-23] MEDS: Micafungin Inj 150 MG in Sodium Chlor 0.9% Inj 100 ML IV.SIG SCH (18:51)
[2017-12-23] MEDS: Ezetimibe 10 MG Tablet PO SCH (20:49)
[2017-12-24] MEDS: Levothyroxine 125 MCG Tablet PO SCH (05:57)
[2017-12-24] MEDS: Insulin NovoLOG Aspart Correctional Sugar Inj SQ SCH ×4 (07:58→21:00)
[2017-12-24 08:16] LABS: Baso # (Auto) 0.1 th/mm3 (0.0-0.2); Baso % (Auto) 0.9 % (0.0-2.0); Eos # (Auto) 0.5 th/mm3 (0.0-0.4); Hematocrit 28.4 % (35.0-46.0); Lymph # (Auto) 1.2 th/mm3 (1.0-4.8); Mean Corpuscular HGB Conc 31.9 % (32.0-36.0); Mean Corpuscular Hemoglobin 29.1 pg (27.0-34.0); Mean Corpuscular Volume 91.3 fL (80.0-100.0); Mean Platelet Volume 7.6 fL (7.0-11.0); Mono # (Auto) 1.4 th/mm3 (0.0-0.9); Mono % (Auto) 11.6 % (0.0-8.0); Neut # (Auto) 9.1 th/mm3 (1.8-7.7); Neut % (Auto) 73.5 % (16.0-70.0); Platelet Count 321 th/mm3 (150-450); Red Blood Count 3.11 mil/mm3 (4.00-5.30); Red Cell Distribution Width 20.1 % (11.6-17.2); White Blood Count 12.4 th/mm3 (4.0-11.0)
[2017-12-24 08:44] LABS: Albumin 2.4 g/dL (3.4-5.0); Carbon Dioxide 25.2 meq/L (21.0-32.0); Phosphorus 8.4 mg/dL (2.5-4.9); Potassium 5.8 meq/L (3.5-5.1)
[2017-12-24] MEDS: Gabapentin 100 MG Capsule PO SCH ×2 (10:17→20:01)
[2017-12-24] MEDS: Carvedilol 6.25 MG Tablet PO SCH ×2 (10:17→20:02)
[2017-12-24] MEDS: Senna/Docusate Sodium 8.6/50 MG Tablet PO SCH ×2 (10:18→20:01)
--- NOTE | 2017-12-24 12:15 | P.PNVS ---
Subjective Subjective/Hospital Course: 11/2717 This 72-year-old lady underwent, in August of this year, a successful left leg revascularization with PTFE graft by Dr. Brothers. The patient did well initially, was transferred to [facility], but then developed infection of the left groin with Klebsiella and VRE and Rosa glabrata. She was hospitalized on antibiotics after I and D of the left groin, and a wound VAC was placed. The patient had several episodes of infection, which were treated successfully, still has a wound VAC in the left groin, although I do not see one today, but then she was noted to have redness down the left leg in the area of the distal graft. This was initially aspirated and this seemed to be serous but I was called by Dr. Brothers today to please attend this patient. The patient now comes through the emergency room as admission for incision and drainage of the left leg7. Today patient underwent successful debridement and drainage of the collection of the left popliteal fossa and placement of a new wound VAC to the popliteals and inguinal space Patient will be treated for antibiotics as per infectious disease and be able to go home with wound vacs in a day or 2 depending on the cultures. Pulses remain intact distally 12/24/2017 Patient is status post drainage of the left leg Swelling is definitely decreased and rubor has receded Pain has also significantly diminished. Wound VAC placed in the operating room had to be changed by me at the bedside yesterday evening for it was not connected to the suction system for a while and it was allowed to form a hematoma which consequently clotted off the tubing. I changed the wound VAC in the bedside washed out incision and is now working fine Distal pulses intact ID help appreciated Objective Vital Signs / I&O: Vital Signs 12/23/17 12:15 12/23/17 12:30 12/23/17 12:31 Temperature 98 F Pulse Rate 55 L 56 L Respiratory Rate 18 15 Blood Pressure 115/55 L 111/58 L Pulse Oximetry 100 98 99 12/23/17 12:45 12/23/17 17:55 12/23/17 20:41 Temperature 97.1 F L Pulse Rate 59 L 56 L Respiratory Rate 19 17 Blood Pressure 113/55 L 108/53 L Pulse Oximetry 100 99 96 12/24/17 00:25 12/24/17 04:55 12/24/17 08:00 Temperature 97.2 F L 97.2 F L 97.1 F L Pulse Rate 56 L 60 59 L Respiratory Rate 17 18 16 Blood Pressure 114/56 L 109/52 L 118/53 L Pulse Oximetry 96 97 97 Intake & Output 12/23/17 12/24/17 12/24/17 18:59 06:59 18:59 Intake Total 50 / 50 780 / 780 100 / 100 Output Total 300 / 300 75 / 75 3500 / 3500 Balance -250 / -250 705 / 705 -3400 / -3400 Weight 102 kg Intake: IV 300 / 300 100 / 100 Zyvox 600 mg Premix 300 ML @ 300 / 300 300 mls/hr IV.SIG Q12H [facility] Rx#: [id number] Mycamine Inj 150 MG In NS Inj 100 / 100 100 ML @ 100 mls/hr IV.SIG Q24H [facility] Rx#:[id number] Oral 480 / 480 Anesthesia Amount 50 / 50 Output: Hemodialysis Amount 3500 / 3500 Estimated Blood Loss 100 / 100 Wound Vac Amount 200 / 200 75 / 75 LLE and groin 200 / 200 75 / 75 Other: Mode Setting LLE and groin Continuous Continuous Laboratory Results - last 24 hr 12/23/17 12/24/17 12/24/17 05:59 06:42 06:42 WBC 12.4 H RBC 3.11 L Hgb 9.0 L Hct 28.4 L MCV 91.3 MCH 29.1 MCHC 31.9 L RDW 20.1 H Plt Count 321 MPV 7.6 Neut % (Auto) 73.5 H Lymph % (Auto) 10.0 [place] % (Auto) 11.6 H Eos % (Auto) 4.0 Baso % (Auto) 0.9 Neut # (Auto) 9.1 H Lymph # (Auto) 1.2 [place] # (Auto) 1.4 H Eos # (Auto) 0.5 H Baso # (Auto) 0.1 WBC Differential . Differential Comment Auto diff final Sodium 129 L Potassium 5.8 H D Chloride 90 L Carbon Dioxide 25.2 Anion Gap 14 BUN 43 H Creatinine 6.06 H Estimated GFR 7 L Random Glucose 75 Hemoglobin A1c 7.9 H Calcium 9.0 Phosphorus 8.4 H Albumin 2.4 L Microbiology 12/22/17 17:20 Aerobic Blood Culture - Preliminary Blood - Peripheral No growth in 2 days Anaerobic Blood Culture - Preliminary No growth in 2 days 12/22/17 17:05 Aerobic Blood Culture - Preliminary Blood - Peripheral No growth in 2 days Anaerobic Blood Culture - Preliminary No growth in 2 days 12/23/17 11:36 Fungal Smear - Final Wound - Leg No fungal elements seen 12/23/17 11:36 Gram Stain - Final Wound - Leg 12/23/17 11:36 Fungal Smear - Final Abscess - Leg No fungal elements seen 12/23/17 11:36 Gram Stain - Final Abscess - Leg Impressions Chest X-Ray 12/22/17 17:10 CONCLUSION: No acute cardiopulmonary disease. There is no evidence of pneumonia.
--- NOTE | 2017-12-24 15:03 | ECG ---
Date Performed: 12/22/2017 Time Performed: 22:14:49 PTAGE: 72 years EKG: Sinus rhythm WITH FIRST DEGREE AV BLOCK MARKED LEFT AXIS DEVIATION INTRAVENTRICULAR CONDUCTION DELAY Since previo us tracing, no significant change noted ABNORMAL ECG PREVIOUS TRACING : 11/15/2017 18.06 DOCTOR: Jeremy Gutierrez Interpretating Date/Time 12/24/2017 15:02:18
--- NOTE | 2017-12-24 15:31 | P.PNIM ---
Subjective Interval history: The patient said that she felt uncomfortable during dialysis. She says she has aches and such. She feels like to take too much fluid off of her. Her was at the bedside. Discussed with nursing. Physical Exam Vital signs: Vital Signs 12/23/17 17:55 12/23/17 20:41 12/24/17 00:25 Temperature 97.1 F L 97.2 F L Pulse Rate 56 L 56 L Respiratory Rate 17 17 Blood Pressure 108/53 L 114/56 L Pulse Oximetry 99 96 96 12/24/17 04:55 12/24/17 08:00 12/24/17 12:00 Temperature 97.2 F L 97.1 F L 97.2 F L Pulse Rate 60 59 L 81 Respiratory Rate 18 16 18 Blood Pressure 109/52 L 118/53 L 116/56 L Pulse Oximetry 97 97 98 Intake & Output 12/23/17 12/24/17 12/24/17 18:59 06:59 18:59 Intake Total 50 / 50 780 / 780 400 / 400 Output Total 300 / 300 75 / 75 3500 / 3500 Balance -250 / -250 705 / 705 -3100 / -3100 Weight 102 kg Intake: IV 300 / 300 400 / 400 Zyvox 600 mg Premix 300 ML @ 300 / 300 300 / 300 300 mls/hr IV.SIG Q12H [facility] Rx#: [id number] Mycamine Inj 150 MG In NS Inj 100 / 100 100 ML @ 100 mls/hr IV.SIG Q24H [facility] Rx#:[id number] Oral 480 / 480 Anesthesia Amount 50 / 50 Output: Hemodialysis Amount 3500 / 3500 Estimated Blood Loss 100 / 100 Wound Vac Amount 200 / 200 75 / 75 LLE and groin 200 / 200 75 / 75 Other: Mode Setting LLE and groin Continuous Continuous Narrative: GENERAL: Pleasant female in no acute distress. HEENT: PERRLA, EOMI. No scleral icterus or conjunctival pallor. No lid lag or facial droop. CARDIOVASCULAR: Regular rate and rhythm. No obvious murmurs to auscultation. No chest tenderness to palpation. RESPIRATORY: No obvious rhonchi or wheezing. Clear to auscultation. Breath sounds equal bilaterally. GASTROINTESTINAL: Abdomen soft, non-tender, nondistended. BS normal. MUSCULOSKELETAL: LLE with wound VAC. NEUROLOGICAL: Awake, alert and oriented x4. No focal neurologic deficits. Moving both upper and lower extremities spontaneously. Results - Labs CBC & Chem 7: 12/24/17 06:42 12/24/17 06:42 Laboratory Results - last 24 hr 12/23/17 12/24/17 12/24/17 05:59 06:42 06:42 WBC 12.4 H RBC 3.11 L Hgb 9.0 L Hct 28.4 L MCV 91.3 MCH 29.1 MCHC 31.9 L RDW 20.1 H Plt Count 321 MPV 7.6 Neut % (Auto) 73.5 H Lymph % (Auto) 10.0 [place] % (Auto) 11.6 H Eos % (Auto) 4.0 Baso % (Auto) 0.9 Neut # (Auto) 9.1 H Lymph # (Auto) 1.2 [place] # (Auto) 1.4 H Eos # (Auto) 0.5 H Baso # (Auto) 0.1 WBC Differential . Differential Comment Auto diff final Sodium 129 L Potassium 5.8 H D Chloride 90 L Carbon Dioxide 25.2 Anion Gap 14 BUN 43 H Creatinine 6.06 H Estimated GFR 7 L Random Glucose 75 Hemoglobin A1c 7.9 H Calcium 9.0 Phosphorus 8.4 H Albumin 2.4 L Microbiology 12/23/17 11:36 Wound - Leg Gram Stain - Final 12/23/17 11:36 Wound - Leg Wound Culture - Preliminary Pseudomonas species 12/23/17 11:36 Abscess - Leg Gram Stain - Final 12/23/17 11:36 Abscess - Leg Wound Culture - Preliminary Pseudomonas species gram negative rods 12/23/17 11:36 Abscess - Leg Fungal Smear - Final No fungal elements seen 12/22/17 17:20 Blood - Peripheral Aerobic Blood Culture - Preliminary No growth in 2 days 12/22/17 17:20 Blood - Peripheral Anaerobic Blood Culture - Preliminary No growth in 2 days 12/22/17 17:05 Blood - Peripheral Aerobic Blood Culture - Preliminary No growth in 2 days 12/22/17 17:05 Blood - Peripheral Anaerobic Blood Culture - Preliminary No growth in 2 days 12/23/17 11:36 Wound - Leg Fungal Smear - Final No fungal elements seen Assessment and Plan - Assessment (1) Post op infection Code(s): T81.4XXA - Infection following a procedure, initial encounter Status : Acute (2) ESRD (end stage renal disease) on dialysis Code(s): N18.6 - End stage renal disease; Z99.2 - Dependence on renal dialysis Status: Acute (3) HTN (hypertension) Code(s): I10 - Essential (primary) hypertension Status: Acute (4) DM (diabetes mellitus) Code(s): E11.9 - Type 2 diabetes mellitus without complications Status: Acute - Plan LLE post op wound infection H/o LLE bypass w/ femoral artery endarterectomy by Dr. Brothers, postop complications/infection w/ VAC placement 09/23/17, cultures 10/07/17 +Klebsiella, Rosa and VRE, s/p IV antibiotics, now w/ possible recurrent infection. Vascular surgery consult appreciated, s/p debridement and drainage of the collection of the left popliteal fossa and placement of a new wound VAC to the popliteals and inguinal space. - Follow up cultures. Pseudomonas growing. - ID consult appreciated. Continue antibiotics. - wound care per vascular surgery. - pain control with a bowel regimen. ESRD On HD: M/W/F, follows w/ Dr. Sampson. - resume HD as scheduled. Had dialysis 12/24. - Resume home medications, monitor I/O. DM H/o DM, not on home medications, Hgb A1c 7.9%. Relatively well controlled. - sliding scale w/ Accu-Cheks. HTN Well controlled. - Monitor BP, resume home medications. DVT Prophylaxis: Pharmacologic contraindication due to surgery, mechanical contraindication due to wound
--- NOTE | 2017-12-24 16:15 | P.PNNP ---
Subjective Interval history: The patient is a 72 yo [place] female who is known to our services for ESRD on HD. She presented to this facility yesterday after a visit with Dr. Brothers regarding left groin wound. She underwent a femoral bypass on 08/24/17 with multiple complications including infection & hematoma requiring evacuation and wound vac placement. She completed abx regimen on 11/18/17. She has been having worsening left groin pain for the past few days. Some nausea and vomiting. Seen s/p I&D and debridement of the left popliteal collection and well as debridement of left groin wound. Wound vac present on both sites, but apparent issues involving vac on L popliteal suction. present in the room. Pt groggy, but conversive and appropriate. We have been consulted for HD management Physical Exam Vital signs: Vital Signs 12/23/17 17:55 12/23/17 20:41 12/24/17 00:25 Temperature 97.1 F L 97.2 F L Pulse Rate 56 L 56 L Respiratory Rate 17 17 Blood Pressure 108/53 L 114/56 L Pulse Oximetry 99 96 96 12/24/17 04:55 12/24/17 08:00 12/24/17 12:00 Temperature 97.2 F L 97.1 F L 97.2 F L Pulse Rate 60 59 L 81 Respiratory Rate 18 16 18 Blood Pressure 109/52 L 118/53 L 116/56 L Pulse Oximetry 97 97 98 Intake & Output 12/23/17 12/24/17 12/24/17 18:59 06:59 18:59 Intake Total 50 / 50 780 / 780 750 / 750 Output Total 300 / 300 75 / 75 3500 / 3500 Balance -250 / -250 705 / 705 -2750 / -2750 Weight 102 kg Intake: IV 300 / 300 650 / 650 Flexbumin 25% Inj 100 ML @ 60 100 / 100 mls/hr IV.SIG WITH DIALYSIS PRN Rx#:[id number] Maxipime Inj 1,000 MG In NS Inj 100 / 100 100 ML @ 200 mls/hr IV.SIG Q24H [facility] Rx#:[id number] Zyvox 600 mg Premix 300 ML @ 300 / 300 300 / 300 300 mls/hr IV.SIG Q12H [facility] Rx#: [id number] Mycamine Inj 150 MG In NS Inj 100 / 100 100 ML @ 100 mls/hr IV.SIG Q24H [facility] Rx#:[id number] Oral 480 / 480 100 / 100 Anesthesia Amount 50 / 50 Output: Hemodialysis Amount 3500 / 3500 Estimated Blood Loss 100 / 100 Wound Vac Amount 200 / 200 75 / 75 LLE and groin 200 / 200 75 / 75 Other: Mode Setting LLE and groin Continuous Continuous Narrative: GENERAL: Pleasant female in no acute distress. HEENT: No scleral icterus or conjunctival pallor. No facial droop. CARDIOVASCULAR: Regular rate and rhythm. No obvious murmurs to auscultation. No chest tenderness to palpation. RESPIRATORY: No obvious rhonchi or wheezing. Clear to auscultation. Breath sounds equal bilaterally. GASTROINTESTINAL: Abdomen soft, non-tender, nondistended. BS normal. MUSCULOSKELETAL: LLE with wound VAC. NEUROLOGICAL: Awake, alert and oriented x4. No focal neurologic deficits. Moving both upper and lower extremities spontaneously. Assessment and Plan - Assessment (1) ESRD (end stage renal disease) on dialysis Code(s): N18.6 - End stage renal disease; Z99.2 - Dependence on renal dialysis Status: Acute Plan: Typical HD days MWF Patient completed her hemodialysis today which will improve her potassium level. Will plan MWF thereafter. Unfortunately patient has required multiple recurrent admissions for complications associated with her vascular bypass surgery. Given her comorbidities believe her long-term prognosis is guarded. Medications should be adjusted for the patient's ESRD. Avoid gadolinium. (2) Cellulitis Code(s): L03.90 - Cellulitis, unspecified Status: Acute Qualifiers: Site of cellulitis: extremity Site of cellulitis of extremity: lower extremity Laterality: left Qualified Code(s): L03.116 - Cellulitis of left lower limb Plan: Management as per vacular team. Received Vanc and Zosyn in the ED. Now on Cefepime. (3) DM (diabetes mellitus) Code(s): E11.9 - Type 2 diabetes mellitus without complications Status: Acute Plan: Mgmt as per primary
[2017-12-24] MEDS: Micafungin Inj 150 MG in Sodium Chlor 0.9% Inj 100 ML IV.SIG SCH (17:51)
[2017-12-24] MEDS: Ezetimibe 10 MG Tablet PO SCH (20:04)
[2017-12-25] MEDS ORDERED: Mineral Oil Enema 118 ML Bottle RECTAL ONE (04:28)
[2017-12-25] MEDS: Levothyroxine 125 MCG Tablet PO SCH (05:03)
[2017-12-25] MEDS: Insulin NovoLOG Aspart Correctional Sugar Inj SQ SCH ×4 (07:11→21:00)
[2017-12-25 08:27] LABS: Hematocrit 32.5 % (35.0-46.0); Hemoglobin 10.2 gm/dL (11.6-15.3); Mean Corpuscular HGB Conc 31.5 % (32.0-36.0); Mean Corpuscular Hemoglobin 29.5 pg (27.0-34.0); Mean Corpuscular Volume 93.7 fL (80.0-100.0); Mean Platelet Volume 7.7 fL (7.0-11.0); Platelet Count 307 th/mm3 (150-450); Red Blood Count 3.47 mil/mm3 (4.00-5.30); Red Cell Distribution Width 20.2 % (11.6-17.2)
[2017-12-25 09:06] LABS: Calcium 9.8 mg/dL (8.5-10.1); Carbon Dioxide 27.5 meq/L (21.0-32.0); Potassium 5.1 meq/L (3.5-5.1)
[2017-12-25] MEDS: Carvedilol 6.25 MG Tablet PO SCH ×3 (09:29→22:30)
[2017-12-25] MEDS: Senna/Docusate Sodium 8.6/50 MG Tablet PO SCH ×2 (09:29→22:26)
[2017-12-25] MEDS: Gabapentin 100 MG Capsule PO SCH ×2 (09:29→22:26)
--- NOTE | 2017-12-25 11:41 | P.PNVS ---
Subjective Subjective/Hospital Course: 11/2717 This 72-year-old lady underwent, in August of this year, a successful left leg revascularization with PTFE graft by Dr. Brothers. The patient did well initially, was transferred to [facility], but then developed infection of the left groin with Klebsiella and VRE and Rosa glabrata. She was hospitalized on antibiotics after I and D of the left groin, and a wound VAC was placed. The patient had several episodes of infection, which were treated successfully, still has a wound VAC in the left groin, although I do not see one today, but then she was noted to have redness down the left leg in the area of the distal graft. This was initially aspirated and this seemed to be serous but I was called by Dr. Brothers today to please attend this patient. The patient now comes through the emergency room as admission for incision and drainage of the left leg7. Today patient underwent successful debridement and drainage of the collection of the left popliteal fossa and placement of a new wound VAC to the popliteals and inguinal space Patient will be treated for antibiotics as per infectious disease and be able to go home with wound vacs in a day or 2 depending on the cultures. Pulses remain intact distally 12/24/2017 Patient is status post drainage of the left leg Swelling is definitely decreased and rubor has receded Pain has also significantly diminished. Wound VAC placed in the operating room had to be changed by me at the bedside yesterday evening for it was not connected to the suction system for a while and it was allowed to form a hematoma which consequently clotted off the tubing. I changed the wound VAC in the bedside washed out incision and is now working fine Distal pulses intact ID help appreciated 12/25/2017 Wound VAC is now working fine in both branches or with a draining serosanguineous fluid The upper wound is very clean and soon will be ready for grafting while the lower one will need some work and allowed to granulate Wound VAC to be changed every Tuesday and and patient expressed wish to take a shower in the meantime while the wound VAC is off which is fine with me. She can get wounds wet with soap and water and wash it out which will help the cleansing and healing as well Cultures of back and patient is growing pseudomonas aeruginosa in the wounds and based on the appearance of the purulent material I suspected this to be a gram-negative and mixed culture collection Objective Vital Signs / I&O: Vital Signs 12/24/17 12:00 12/24/17 16:00 12/24/17 20:00 Temperature 97.2 F L 98.3 F 97.9 F Pulse Rate 81 62 66 Respiratory Rate 18 16 18 Blood Pressure 116/56 L 105/50 L 123/60 Pulse Oximetry 98 94 L 95 12/24/17 22:28 12/25/17 00:00 12/25/17 08:00 Temperature 98.1 F 97.5 F L Pulse Rate 80 58 L Respiratory Rate 18 14 Blood Pressure 130/60 131/60 Pulse Oximetry 96 94 L 94 L Intake & Output 12/24/17 12/25/17 12/25/17 18:59 06:59 18:59 Intake Total 1950 / 1950 Output Total 3500 / 3500 100 / 100 Balance -1550 / -1550 -100 / -100 Intake: IV 650 / 650 Flexbumin 25% Inj 100 ML @ 60 100 / 100 mls/hr IV.SIG WITH DIALYSIS PRN Rx#:[id number] Maxipime Inj 1,000 MG In NS Inj 100 / 100 100 ML @ 200 mls/hr IV.SIG Q24H [facility] Rx#:[id number] Zyvox 600 mg Premix 300 ML @ 300 / 300 300 mls/hr IV.SIG Q12H [facility] Rx#: [id number] Mycamine Inj 150 MG In NS Inj 100 / 100 100 ML @ 100 mls/hr IV.SIG Q24H [facility] Rx#:[id number] Oral 1300 / 1300 Output: Hemodialysis Amount 3500 / 3500 Wound Vac Amount 100 / 100 LLE and groin 100 / 100 Left Coccyx 0 / 0 Other: Mode Setting LLE and groin Continuous Continuous Left Coccyx Continuous Continuous # Voids 2 2 Date of Last Bowel Movement 12/16/17 12/16/17 # Bowel Movements 1 Laboratory Results - last 24 hr 12/25/17 12/25/17 07:50 07:50 WBC 12.0 H RBC 3.47 L Hgb 10.2 L Hct 32.5 L MCV 93.7 MCH 29.5 MCHC 31.5 L RDW 20.2 H Plt Count 307 MPV 7.7 Sodium 132 L Potassium 5.1 Chloride 93 L Carbon Dioxide 27.5 Anion Gap 12 BUN 30 H Creatinine 4.80 H Estimated GFR 9 L Random Glucose 157 H Calcium 9.8 D Microbiology 12/22/17 17:20 Aerobic Blood Culture - Preliminary Blood - Peripheral No growth in 3 days Anaerobic Blood Culture - Preliminary No growth in 3 days 12/22/17 17:05 Aerobic Blood Culture - Preliminary Blood - Peripheral No growth in 3 days Anaerobic Blood Culture - Preliminary No growth in 3 days 12/23/17 11:36 Gram Stain - Final Wound - Leg Wound Culture - Final Pseudomonas aeruginosa 12/23/17 11:36 Gram Stain - Final Abscess - Leg Wound Culture - Preliminary Pseudomonas aeruginosa gram negative rods 12/23/17 11:36 Fungal Smear - Final Abscess - Leg No fungal elements seen Impressions Chest X-Ray 12/22/17 17:10 CONCLUSION: No acute cardiopulmonary disease. There is no evidence of pneumonia.
--- NOTE | 2017-12-25 15:12 | P.PNIM ---
Subjective Interval history: The patient was resting comfortably in bed. She said that she had a bowel movement earlier. She has not been eating that much. Her pain was controlled. Discussed with nursing. Physical Exam Vital signs: Vital Signs 12/24/17 16:00 12/24/17 20:00 12/24/17 22:28 Temperature 98.3 F 97.9 F Pulse Rate 62 66 Respiratory Rate 16 18 Blood Pressure 105/50 L 123/60 Pulse Oximetry 94 L 95 96 12/25/17 00:00 12/25/17 08:00 Temperature 98.1 F 97.5 F L Pulse Rate 80 58 L Respiratory Rate 18 14 Blood Pressure 130/60 131/60 Pulse Oximetry 94 L 94 L Intake & Output 12/24/17 12/25/17 12/25/17 18:59 06:59 18:59 Intake Total 1950 / 1950 300 / 300 100 / 100 Output Total 3500 / 3500 100 / 100 Balance -1550 / -1550 200 / 200 100 / 100 Intake: IV 650 / 650 300 / 300 100 / 100 Flexbumin 25% Inj 100 ML @ 60 100 / 100 mls/hr IV.SIG WITH DIALYSIS PRN Rx#:[id number] Maxipime Inj 1,000 MG In NS Inj 100 / 100 100 ML @ 200 mls/hr IV.SIG Q24H [facility] Rx#:[id number] Zyvox 600 mg Premix 300 ML @ 300 / 300 300 / 300 300 mls/hr IV.SIG Q12H [facility] Rx#: [id number] Mycamine Inj 150 MG In NS Inj 100 / 100 100 / 100 100 ML @ 100 mls/hr IV.SIG Q24H [facility] Rx#:[id number] Oral 1300 / 1300 Output: Hemodialysis Amount 3500 / 3500 Wound Vac Amount 100 / 100 LLE and groin 100 / 100 Left Coccyx 0 / 0 Other: Mode Setting LLE and groin Continuous Continuous Left Coccyx Continuous Continuous # Voids 2 2 Date of Last Bowel Movement 12/16/17 12/16/17 # Bowel Movements 1 Narrative: GENERAL: Pleasant female in no acute distress. HEENT: No scleral icterus or conjunctival pallor. No facial droop. CARDIOVASCULAR: Regular rate and rhythm. No obvious murmurs to auscultation. No chest tenderness to palpation. RESPIRATORY: No obvious rhonchi or wheezing. Clear to auscultation. Breath sounds equal bilaterally. GASTROINTESTINAL: Abdomen soft, non-tender, nondistended. BS normal. MUSCULOSKELETAL: LLE with wound VAC in two locations. NEUROLOGICAL: Awake, alert and oriented x4. No focal neurologic deficits. Moving both upper and lower extremities spontaneously. Results - Labs CBC & Chem 7: 12/25/17 07:50 12/25/17 07:50 Laboratory Results - last 24 hr 12/25/17 12/25/17 07:50 07:50 WBC 12.0 H RBC 3.47 L Hgb 10.2 L Hct 32.5 L MCV 93.7 MCH 29.5 MCHC 31.5 L RDW 20.2 H Plt Count 307 MPV 7.7 Sodium 132 L Potassium 5.1 Chloride 93 L Carbon Dioxide 27.5 Anion Gap 12 BUN 30 H Creatinine 4.80 H Estimated GFR 9 L Random Glucose 157 H Calcium 9.8 D Microbiology 12/23/17 11:36 Wound - Leg Acid Fast Bacilli Smear - Final No acid fast bacilli seen 12/23/17 11:36 Abscess - Leg Acid Fast Bacilli Smear - Final No acid fast bacilli seen 12/22/17 17:20 Blood - Peripheral Aerobic Blood Culture - Preliminary No growth in 3 days 12/22/17 17:20 Blood - Peripheral Anaerobic Blood Culture - Preliminary No growth in 3 days 12/22/17 17:05 Blood - Peripheral Aerobic Blood Culture - Preliminary No growth in 3 days 12/22/17 17:05 Blood - Peripheral Anaerobic Blood Culture - Preliminary No growth in 3 days 12/23/17 11:36 Wound - Leg Gram Stain - Final 12/23/17 11:36 Wound - Leg Wound Culture - Final Pseudomonas aeruginosa 12/23/17 11:36 Abscess - Leg Gram Stain - Final 12/23/17 11:36 Abscess - Leg Wound Culture - Preliminary Pseudomonas aeruginosa gram negative rods 12/23/17 11:36 Abscess - Leg Fungal Smear - Final No fungal elements seen Assessment and Plan - Assessment (1) Post op infection Code(s): T81.4XXA - Infection following a procedure, initial encounter Status : Acute (2) ESRD (end stage renal disease) on dialysis Code(s): N18.6 - End stage renal disease; Z99.2 - Dependence on renal dialysis Status: Acute (3) HTN (hypertension) Code(s): I10 - Essential (primary) hypertension Status: Acute (4) DM (diabetes mellitus) Code(s): E11.9 - Type 2 diabetes mellitus without complications Status: Acute - Plan LLE post op wound infection H/o LLE bypass w/ femoral artery endarterectomy by Dr. Brothers, postop complications/infection w/ VAC placement 09/23/17, cultures 10/07/17 +Klebsiella, Roas and VRE, s/p IV antibiotics, now w/ possible recurrent infection. Vascular surgery consult appreciated, s/p debridement and drainage of the collection of the left popliteal fossa and placement of a new wound VAC to the popliteals and inguinal space. Pseudomonas growing in cultures. - ID consult appreciated. Continue antibiotics, renally dosed. - wound care per vascular surgery. - pain control with a bowel regimen. - physical therapy. - incentive spirometry. ESRD On HD: M/W/F, follows w/ Dr. Sampson. - resume HD as scheduled. Had dialysis 12/24. - Resume home medications, monitor I/O. DM H/o DM, not on home medications, Hgb A1c 7.9%. Relatively well controlled. - sliding scale w/ Accu-Cheks. HTN Well controlled. - Monitor BP, resume home medications. DVT Prophylaxis: Pharmacologic contraindication due to surgery, mechanical contraindication due to wound
[2017-12-25] MEDS: Micafungin Inj 150 MG in Sodium Chlor 0.9% Inj 100 ML IV.SIG SCH (17:14)
[2017-12-25] MEDS: Ezetimibe 10 MG Tablet PO SCH (22:27)
[2017-12-26] MEDS: Levothyroxine 125 MCG Tablet PO SCH (06:45)
[2017-12-26 08:21] LABS: Calcium 9.6 mg/dL (8.5-10.1); Carbon Dioxide 24.4 meq/L (21.0-32.0); Potassium 4.9 meq/L (3.5-5.1)
[2017-12-26] MEDS: Carvedilol 6.25 MG Tablet PO SCH ×2 (08:58→20:15)
[2017-12-26] MEDS: Senna/Docusate Sodium 8.6/50 MG Tablet PO SCH ×2 (08:58→20:16)
[2017-12-26] MEDS: Insulin NovoLOG Aspart Correctional Sugar Inj SQ SCH ×4 (08:59→20:32)
[2017-12-26] MEDS: Gabapentin 100 MG Capsule PO SCH ×2 (09:00→20:09)
--- NOTE | 2017-12-26 09:27 | P.PNNP ---
Subjective Interval history: The patient is a 72 yo [place] female who is known to our services for ESRD on HD. She presented to this facility yesterday after a visit with Dr. Brothers regarding left groin wound. She underwent a femoral bypass on 08/24/17 with multiple complications including infection & hematoma requiring evacuation and wound vac placement. She completed abx regimen on 11/18/17. She has been having worsening left groin pain for the past few days. Some nausea and vomiting. Seen s/p I&D and debridement of the left popliteal collection and well as debridement of left groin wound. Wound vac present on both sites, but apparent issues involving vac on L popliteal suction. present in the room. Pt groggy, but conversive and appropriate. We have been consulted for HD management Last HD 12/21/17 without complications. 12/26/17 Pt laying comfortably in bed. HD completed on 12/24 without issues, but does state she feels too much fluid was removed. Pending HD today. Is hopeful to go home soon. Physical Exam Vital signs: Vital Signs 12/25/17 12:00 12/25/17 20:00 12/26/17 00:00 Temperature 97.4 F L 97.3 F L 97.3 F L Pulse Rate 64 55 L 58 L Respiratory Rate 18 16 16 Blood Pressure 102/50 L 104/48 L 109/50 L Pulse Oximetry 95 96 98 Intake & Output 12/25/17 12/26/17 12/26/17 18:59 06:59 18:59 Intake Total 1400 / 1400 Output Total 50 / 50 Balance 1400 / 1400 -50 / -50 Intake: IV 600 / 600 Maxipime Inj 1,000 MG In NS Inj 100 / 100 100 ML @ 200 mls/hr IV.SIG Q24H [facility] Rx#:[id number] Zyvox 600 mg Premix 300 ML @ 300 / 300 300 mls/hr IV.SIG Q12H [facility] Rx#: [id number] Mycamine Inj 150 MG In NS Inj 200 / 200 100 ML @ 100 mls/hr IV.SIG Q24H [facility] Rx#:[id number] Oral 800 / 800 Output: Wound Vac Amount 50 / 50 LLE and groin 50 / 50 Other: Mode Setting LLE and groin Continuous Continuous Left Coccyx Continuous Left Upper Thigh Continuous # Voids 2 3 Date of Last Bowel Movement 12/16/17 # Bowel Movements 3 - Constitutional no acute distress - Routine HEENT Exam Head: Present: normocephalic - Routine Neck Exam Present: supple - Routine Respiratory Exam Present: CTA bilaterally - Routine Cardiovascular Exam Present: RRR, S1, S2 - Routine Abdominal Exam Present: soft - Routine Extremities Exam Present: edema (trace posterior calves. ) - Routine Skin Exam Comments: two wound vacs present L leg - Routine Neurological Exam Present: alert, oriented X3 - Routine Psychiatric Exam Present: normal affect Assessment and Plan - Assessment (1) ESRD (end stage renal disease) on dialysis Code(s): N18.6 - End stage renal disease; Z99.2 - Dependence on renal dialysis Status: Acute Plan: Pending HD today. Continue MWF schedule. Will discontinue Nepro at patient's request. Did encouraged continued protein intake otherwise. Unfortunately patient has required multiple recurrent admissions for complications associated with her vascular bypass surgery. Given her comorbidities believe her long-term prognosis is guarded. Medications should be adjusted for the patient's ESRD. Avoid gadolinium. (2) Cellulitis Code(s): L03.90 - Cellulitis, unspecified Status: Acute Qualifiers: Site of cellulitis: extremity Site of cellulitis of extremity: lower extremity Laterality: left Qualified Code(s): L03.116 - Cellulitis of left lower limb Plan: Wound cx pseudomonas. Abx as per vascular (3) DM (diabetes mellitus) Code(s): E11.9 - Type 2 diabetes mellitus without complications Status: Acute Plan: Mgmt as per primary
--- NOTE | 2017-12-26 15:55 | P.DCO ---
Post Hospital Infusion Therapy Location of Infusion Therapy: Home [facility] Care IV Infusion Order Patient Weight: 102 kg - Diagnosis (1) Post op infection Code(s): T81.4XXA - Infection following a procedure, initial encounter - Administer Medication Cefepime Dose: 2 grams IV Directions: q 48 hours Additional Dosing Instructions: DOSES TO BE GIVEN AFTER DIALYSIS on MON/WED/FRI. Stop Treatment: 01/23/18 - Additional Information Venous Access: Peripheral Additional Instructions: [x] Peripheral flush and dressing changes per protocol [x] Implanted port and central personal lines agent: * Implanted port: 10 ml Normal Saline followed by 5 ml Heparin 100 units/ml Heparin flush after each use and monthly to maintain. [] May leave port accessed during therapy. [] May leave peripheral site accessed for duration of therapy. [x] If patient has SOB or respiratory distress, check oxygen saturation. If less than 90% or clinical signs of respiratory distress, administer oxygen at 2 L/min. via nasal cannula and notify physician. [x] Anaphylaxis/Reaction orders: * Stop infusion. * Keep IV line open with saline flush. * Notify physician. * Monitor vital signs every 15 minutes until symptoms resolve. * Check Oxygen saturation; Oxygen at 2 L/min. via nasal cannula if less than 90% or clinical signs of respiratory distress. * Administer diphenhydramine (Benadryl) 25 mg IV STAT, (unless patient has received as pre-med). May repeat once, if necessary. * Solu-Cortef 250 mg IVP over 30-60 seconds, use 100 mg vials for each dissolution. * Epinephrine (1mg/1 ml) 0.3 mg subcutaneously or IVP now with any signs of respiratory distress. * Check with physician for new additional pre-med orders if patient is re- challenged or re-treated. [x] May remove PICC line when treatment complete, after confirming with Physician. [x] If the patient is admitted to the hospital, the ED, or transferred via [facility] , complete transfer form including medication reconciliation order sheet. Case Management Consult: Yes Additional Information: Call Dr. Corrales [phone] with questions about antibiotics. Allergies amlodipine Allergy (Severe, Verified 12/22/17 22:56) Edema, Generalized adhesive tape Allergy (Unknown, Verified 12/22/17 22:56) Generalized Itching Redness
--- NOTE | 2017-12-26 16:02 | P.PNID ---
Subjective Remarks: ID follow-up. Patient with known to me from prior hospitalization. Consultation note reviewed. Notes reviewed. Brief history: Patient was treated for left groin wound infection postop. She received a course of IV antibiotics For treatment of VRE, Klebsiella and Rosa from the groin wound. She completed a course of antibiotics and the antibiotics were discontinued. She subsequently followed up with plastics for possible grafting of the left groin wound. It was felt that the skin graft was not appropriate and this another wound VAC was applied to the left groin. Patient subsequently developed swelling at the lower aspect of her femoral bypass graft incision at the inner left leg. She was evaluated by general surgery 1 week ago and attempts at aspiration yielded a small amount of fluid. The area became more swollen and she was sent to the emergency department for evaluation and surgical intervention. She was taken to surgery and had incision and debridement of the wound culture was taken. Culture has growth of pseudomonas aeruginosa and Klebsiella in 1 sample and the second culture has Pseudomonas aeruginosa. She is currently receiving IV antibiotics including linezolid, micafungin and cefepime. Patient has no complaints currently. He was having some problems with constipation but has moved her bowels over the past couple of days. She has no fever chills nausea vomiting or other symptoms. Afebrile. Lines: Peripheral IV catheter intact. 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 (Acute) HTN (hypertension) (Acute) High cholesterol (Acute) Insulin pump in place (Acute) Type II diabetes mellitus (Acute) Wound of left groin (Acute) No Social History Section defined (Last Reviewed 12/25/17 @ 06:33 by Murray Avalos) H/O heart bypass surgery (Acute) History of appendectomy (Acute) History of cholecystectomy (Acute) Allergies/Adverse Reactions: Allergies amlodipine Allergy (Severe, Verified 12/22/17 22:56) Edema, Generalized adhesive tape Allergy (Unknown, Verified 12/22/17 22:56) Generalized Itching Redness Objective Vital Signs 12/25/17 20:00 12/26/17 00:00 12/26/17 08:00 Temperature 97.3 F L 97.3 F L 97.3 F L Pulse Rate 55 L 58 L 55 L Respiratory Rate 16 16 18 Blood Pressure 104/48 L 109/50 L 147/64 H Pulse Oximetry 96 98 97 Intake & Output 12/25/17 12/26/17 12/26/17 18:59 06:59 18:59 Intake Total 1400 / 1400 Output Total 1999 50 / 50 Balance -600 / -600 -50 / -50 Weight 102 kg Intake: IV 600 / 600 Maxipime Inj 1,000 MG In NS Inj 100 / 100 100 ML @ 200 mls/hr IV.SIG Q24H RICARDO Rx#:[id number] Zyvox 600 mg Premix 300 ML @ 300 / 300 300 mls/hr IV.SIG Q12H RICARDO Rx#: [id number] Mycamine Inj 150 MG In NS Inj 200 / 200 100 ML @ 100 mls/hr IV.SIG Q24H RICARDO Rx#:[id number] Oral 800 / 800 Output: Hemodialysis Amount 1999 Wound Vac Amount 50 / 50 LLE and groin 50 / 50 Other: Mode Setting LLE and groin Continuous Continuous Continuous Left Coccyx Continuous Left Upper Thigh Continuous # Voids 2 3 Date of Last Bowel Movement 12/16/17 # Bowel Movements 3 12/22/17 17:20 Blood - Peripheral Aerobic Blood Culture - Preliminary No growth in 4 days 12/22/17 17:20 Blood - Peripheral Anaerobic Blood Culture - Preliminary No growth in 4 days 12/22/17 17:05 Blood - Peripheral Aerobic Blood Culture - Preliminary No growth in 4 days 12/22/17 17:05 Blood - Peripheral Anaerobic Blood Culture - Preliminary No growth in 4 days 12/23/17 11:36 Abscess - Leg Gram Stain - Final 12/23/17 11:36 Abscess - Leg Wound Culture - Final Pseudomonas aeruginosa Klebsiella pneumoniae 12/23/17 11:36 Wound - Leg Acid Fast Bacilli Smear - Final No acid fast bacilli seen 12/23/17 11:36 Wound - Leg Mycobacterial Culture - Pending 12/23/17 11:36 Abscess - Leg Acid Fast Bacilli Smear - Final No acid fast bacilli seen 12/23/17 11:36 Abscess - Leg Mycobacterial Culture - Pending 12/23/17 11:36 Wound - Leg Gram Stain - Final 12/23/17 11:36 Wound - Leg Wound Culture - Final Pseudomonas aeruginosa 12/23/17 11:36 Abscess - Leg Fungal Smear - Final No fungal elements seen 12/23/17 11:36 Abscess - Leg Fungal Culture - Pending 12/23/17 11:36 Wound - Leg Fungal Smear - Final No fungal elements seen 12/23/17 11:36 Wound - Leg Fungal Culture - Pending Lab - Hematology Results 12/25/17 07:50 WBC 12.0 H RBC 3.47 L Hgb 10.2 L Hct 32.5 L MCV 93.7 MCH 29.5 MCHC 31.5 L RDW 20.2 H Plt Count 307 MPV 7.7 Lab - Chemistry Results 12/25/17 12/26/17 12/26/17 07:50 07:15 07:44 Sodium 132 L 130 L Potassium 5.1 4.9 Chloride 93 L 93 L Carbon Dioxide 27.5 24.4 Anion Gap 12 13 BUN 30 H 37 H Creatinine 4.80 H 5.60 H Estimated GFR 9 L 7 L POC Glucose 120 H Random Glucose 157 H 84 Calcium 9.8 D 9.6 12/26/17 12/26/17 12:53 13:15 Sodium Potassium Chloride Carbon Dioxide Anion Gap BUN Creatinine Estimated GFR POC Glucose 78 85 Random Glucose Calcium Imaging: ITS Impressions Chest X-Ray 12/22/17 17:10 CONCLUSION: No acute cardiopulmonary disease. There is no evidence of pneumonia. Physical Exam: GENERAL: No apparent distress. SKIN: Warm and dry. HEAD: Normocephalic. EYES: No scleral icterus. No injection or drainage. NECK: Supple, trachea midline. No JVD or lymphadenopathy. CARDIOVASCULAR: Regular rate and rhythm without murmurs, gallops, or rubs. RESPIRATORY: Breath sounds equal bilaterally. No accessory muscle use. GASTROINTESTINAL: Abdomen soft, non-tender, nondistended. MUSCULOSKELETAL: No cyanosis, or edema. Wound VAC is present at the left groin (left groin wound has shrunken) no surrounding erythema. Left inner thigh has a wound VAC in place and mild erythema and mild swelling is present. Both wound vacs has serosanguineous drainage. NEUROLOGIC: Nonfocal. Assessment and Plan (1) Post op infection Status: Acute Code(s): T81.4XXA - Infection following a procedure, initial encounter - Plan s/p left femoral artery bypass graft done on 08/31/2017. Wound infection of the distal aspect of the graft incision site with klebsiella and Pseudomonas on new culture. s/p recent infection with VRE, Klebsiella, Rosa glabrata of the proximal graft aspect RECOMMENDATIONS: Stop Zyvox Stop micafungin Continue Cefepime 2 g after each dialysis treatment on Mondays, Wednesdays and Fridays for 4 weeks until January 23, 2018. Case management to arrange for IV antibiotics outpatient on discharge. We will try to use peripheral IV catheters for treatment because I like to avoid putting in a new Purdy catheter. Otherwise if we will have to make arrangements to get the antibiotics infused with dialysis if possible.
--- NOTE | 2017-12-26 16:40 | P.PNIM ---
Subjective Interval history: The patient was seen following dialysis. She was hoping to see vascular surgery soon. She says her pain during dialysis was very bad but currently a 2 out of 10. Family at the bedside. Discussed with nursing. Physical Exam Vital signs: Vital Signs 12/25/17 20:00 12/26/17 00:00 12/26/17 08:00 Temperature 97.3 F L 97.3 F L 97.3 F L Pulse Rate 55 L 58 L 55 L Respiratory Rate 16 16 18 Blood Pressure 104/48 L 109/50 L 147/64 H Pulse Oximetry 96 98 97 Intake & Output 12/25/17 12/26/17 12/26/17 18:59 06:59 18:59 Intake Total 1400 / 1400 Output Total 1999 50 / 50 Balance -600 / -600 -50 / -50 Weight 102 kg Intake: IV 600 / 600 Maxipime Inj 1,000 MG In NS Inj 100 / 100 100 ML @ 200 mls/hr IV.SIG Q24H RICARDO Rx#:[id number] Zyvox 600 mg Premix 300 ML @ 300 / 300 300 mls/hr IV.SIG Q12H RICARDO Rx#: [id number] Mycamine Inj 150 MG In NS Inj 200 / 200 100 ML @ 100 mls/hr IV.SIG Q24H RICARDO Rx#:[id number] Oral 800 / 800 Output: Hemodialysis Amount 1999 Wound Vac Amount 50 / 50 LLE and groin 50 / 50 Other: Mode Setting LLE and groin Continuous Continuous Continuous Left Coccyx Continuous Left Upper Thigh Continuous # Voids 2 3 Date of Last Bowel Movement 12/16/17 # Bowel Movements 3 Narrative: GENERAL: Pleasant female in no acute distress. HEENT: No scleral icterus or conjunctival pallor. No facial droop. CARDIOVASCULAR: Regular rate and rhythm. No obvious murmurs to auscultation. No chest tenderness to palpation. RESPIRATORY: No obvious rhonchi or wheezing. Clear to auscultation. Breath sounds equal bilaterally. GASTROINTESTINAL: Abdomen soft, non-tender, nondistended. BS normal. MUSCULOSKELETAL: LLE with wound VAC in two locations. NEUROLOGICAL: Awake, alert and oriented x4. No focal neurologic deficits. Moving both upper and lower extremities spontaneously. Results - Labs CBC & Chem 7: 12/25/17 07:50 12/26/17 07:15 Laboratory Results - last 24 hr 12/26/17 12/26/17 12/26/17 07:15 07:44 12:53 Sodium 130 L Potassium 4.9 Chloride 93 L Carbon Dioxide 24.4 Anion Gap 13 BUN 37 H Creatinine 5.60 H Estimated GFR 7 L POC Glucose 120 H 78 Random Glucose 84 Calcium 9.6 12/26/17 13:15 Sodium Potassium Chloride Carbon Dioxide Anion Gap BUN Creatinine Estimated GFR POC Glucose 85 Random Glucose Calcium Microbiology 12/22/17 17:20 Blood - Peripheral Aerobic Blood Culture - Preliminary No growth in 4 days 12/22/17 17:20 Blood - Peripheral Anaerobic Blood Culture - Preliminary No growth in 4 days 12/22/17 17:05 Blood - Peripheral Aerobic Blood Culture - Preliminary No growth in 4 days 12/22/17 17:05 Blood - Peripheral Anaerobic Blood Culture - Preliminary No growth in 4 days 12/23/17 11:36 Abscess - Leg Gram Stain - Final 12/23/17 11:36 Abscess - Leg Wound Culture - Final Pseudomonas aeruginosa Klebsiella pneumoniae 12/23/17 11:36 Wound - Leg Acid Fast Bacilli Smear - Final No acid fast bacilli seen 12/23/17 11:36 Abscess - Leg Acid Fast Bacilli Smear - Final No acid fast bacilli seen Assessment and Plan - Assessment (1) Post op infection Code(s): T81.4XXA - Infection following a procedure, initial encounter Status : Acute (2) ESRD (end stage renal disease) on dialysis Code(s): N18.6 - End stage renal disease; Z99.2 - Dependence on renal dialysis Status: Acute (3) HTN (hypertension) Code(s): I10 - Essential (primary) hypertension Status: Acute (4) DM (diabetes mellitus) Code(s): E11.9 - Type 2 diabetes mellitus without complications Status: Acute - Plan LLE post op wound infection H/o LLE bypass w/ femoral artery endarterectomy by Dr. Brothers, postop complications/infection w/ VAC placement 09/23/17, cultures 10/07/17 +Klebsiella, Rosa and VRE, s/p IV antibiotics, now w/ possible recurrent infection. Vascular surgery consult appreciated, s/p debridement and drainage of the collection of the left popliteal fossa and placement of a new wound VAC to the popliteals and inguinal space. Pseudomonas growing in cultures. - ID consult appreciated. Continue cefepime, renally dosed. Discharge referral has been placed. Case management to arrange outpt antibiotics. - wound care per vascular surgery. Will need clearance prior to discharge. - pain control with a bowel regimen. - physical therapy. - incentive spirometry. ESRD On HD: M/W/F, follows w/ Dr. Sampson. - resume HD as scheduled. Had dialysis 12/26. - Resume home medications, monitor I/O. DM H/o DM, not on home medications, Hgb A1c 7.9%. Relatively well controlled. - sliding scale w/ Accu-Cheks. HTN Well controlled. - Monitor BP, resume home medications. DVT Prophylaxis: Pharmacologic contraindication due to surgery, mechanical contraindication due to wound
[2017-12-26] MEDS: Ezetimibe 10 MG Tablet PO SCH (20:15)
[2017-12-27 05:18] LABS: Baso # (Auto) 0.1 th/mm3 (0.0-0.2); Eos # (Auto) 0.3 th/mm3 (0.0-0.4); Eos % (Auto) 2.9 % (0.0-4.0); Hematocrit 28.6 % (35.0-46.0); Hemoglobin 9.2 gm/dL (11.6-15.3); Lymph % (Auto) 10.1 % (9.0-44.0); Mean Corpuscular Hemoglobin 29.4 pg (27.0-34.0); Mean Corpuscular Volume 91.9 fL (80.0-100.0); Mean Platelet Volume 7.1 fL (7.0-11.0); Mono % (Auto) 10.4 % (0.0-8.0); Neut # (Auto) 7.3 th/mm3 (1.8-7.7); Neut % (Auto) 75.6 % (16.0-70.0); Platelet Count 310 th/mm3 (150-450); Red Blood Count 3.11 mil/mm3 (4.00-5.30); Red Cell Distribution Width 19.7 % (11.6-17.2); White Blood Count 9.7 th/mm3 (4.0-11.0)
[2017-12-27 05:39] LABS: Albumin 2.5 g/dL (3.4-5.0); Calcium 8.9 mg/dL (8.5-10.1); Carbon Dioxide 30.1 meq/L (21.0-32.0); Phosphorus 5.1 mg/dL (2.5-4.9); Potassium 4.2 meq/L (3.5-5.1)
[2017-12-27] MEDS: Levothyroxine 125 MCG Tablet PO SCH (06:31)
[2017-12-27] MEDS: Insulin NovoLOG Aspart Correctional Sugar Inj SQ SCH ×2 (07:50→11:10)
[2017-12-27] MEDS: Carvedilol 6.25 MG Tablet PO SCH (08:03)
[2017-12-27] MEDS: Senna/Docusate Sodium 8.6/50 MG Tablet PO SCH (08:03)
[2017-12-27] MEDS: Gabapentin 100 MG Capsule PO SCH (08:05)
--- NOTE | 2017-12-27 10:18 | P.DCO ---
- Physical Therapy Order: Evaluate and treat, Improve ambulation, Strength and gait training - Home Health Nursing Order: Medical education, Signs/symptoms of disease process, Diabetic education , Medication education-adverse effect, Wound care and dressing changes, Nursing assessment with vital signs, IV medication administration Instructions: Wound vac to be changed on Mondays and - Certification I have seen patient Mary Jarrell on 12/27/17. My clinical findings support the need for the requested home health care services because: Limited mobility due to disease progression, Deconditioned with increased weakness, Infection with risk of complications, Injectable medication education/ administration I certify that my clinical findings support that this patient is homebound because: Post-op weakness, Unsafe to leave home unassisted
--- NOTE | 2017-12-27 10:20 | P.DS ---
Date of admission: 12/22/17 19:03 Primary care physician: Garret Samaniego MD Anticipated date of discharge: 12/27/17 Brief History from admission: This is a 72-year-old female with a PMH of HTN, ESRD on HD M/W/F, Hyperlipidemia , PVD, DM and h/o CVA who was referred to the ER by Dr. Brothers for admission due to LLE infection. S/p Left Fem-Bypass and Femoral Artery Endarterectomy on 08/24/[address] Brothers, has had multiple issues w/ infection of surgical site, s/ p evacuation hematoma w/ VAC placement on 09/23/17. Previous Wound Cultures + Hans, Klebsiella and VRE 10/07/17. Initially on Zyvox, however developed thrombocytopenia and switched to Daptomycin/Ceftriaxone w/ plans for IV antibiotics until 11/18/17 per review of ID notes, Wound VAC placed, however no VAC in place, unclear when it was removed. C/o ongoing left groin pain, severe , 10/10, non-radiating, worse w/ movement. On arrival, BP 121/54, HR 67, O2 sat 98% on RA, Temp 99.5. WBC 14.5. Platelets 332. INR 1.1. Chemistry at baseline, creatinine 4.40, stable. CXR w/ no acute findings. S/p eval in ER by Dr. Juares, plans for surgical intervention in am. S/p Zosyn in ER. DS: Diagnosis - Discharge Diagnosis (1) Post op infection Status: Acute (2) ESRD (end stage renal disease) on dialysis Status: Acute (3) HTN (hypertension) Status: Acute (4) DM (diabetes mellitus) Status: Acute DS: Medications - Discharge Medications Prescriptions: hydrocodone-acetaminophen 1 tab PO Q4H PRN #18 tab PRN Reason: Pain Scale 1 To 10 DS: Summary Hospital Course: LLE post op wound infection History of LLE bypass w/ femoral artery endarterectomy by Dr. Brothers, postop complications/infection w/ VAC placement 09/23/17, cultures 10/07/17 +Klebsiella, hans and VRE, s/p IV antibiotics. The pt presents with a recurrent infection. Vascular surgery was consulted. S/p debridement and drainage of the collection of the left popliteal fossa and placement of a new wound VAC to the popliteal and inguinal space. Pseudomonas and klebsiella growing in cultures. Infectious disease was consulted. Antibiotics were changed to cefepime, renally dosed. Discharge referral has been placed for continued antibiotics upon discharge. Case management was consulted to arrange outpt antibiotics and wound vac care. The pt received pain control with a bowel regimen. She worked with physical therapy. She utilized incentive spirometry. She will be discharged with home health care and will follow up with vascular surgery. She will resume her vascular regimen upon discharge. ESRD On HD: M/W/F, follows w/ Dr. Sampson. Nephrology was consulted. HD was resumed as scheduled. DM Hgb A1c 7.9%. Relatively well controlled in the hospital. She was placed on a sliding scale w/ Accu-Cheks. She will resume her home regimen and will follow up with her PCP. - Time Spent with Patient Total time spent providing and/or coordinating discharge services: Greater than 30 minutes - Quality: VTE Deep Vein Thrombosis/Pulmonary Embolism Present on Admission: No Exam Vital signs: Vital Signs 12/26/17 16:00 12/26/17 20:00 12/27/17 00:00 Temperature 97.2 F L 97.5 F L 97.7 F Pulse Rate 53 L 63 65 Respiratory Rate 16 18 18 Blood Pressure 109/51 L 110/55 L 115/59 L Pulse Oximetry 95 99 98 12/27/17 08:00 Temperature 97.4 F L Pulse Rate 58 L Respiratory Rate 18 Blood Pressure 112/64 Pulse Oximetry 97 Intake & Output 12/26/17 12/27/17 12/27/17 18:59 06:59 18:59 Intake Total 640 / 640 Balance 640 / 640 Weight 102 kg Intake: Oral 640 / 640 Other: Mode Setting LLE and groin Continuous Continuous Continuous Left Upper Thigh Continuous Continuous # Voids 3 Date of Last Bowel Movement 12/25/17 12/26/17 # Bowel Movements 3 Narrative: GENERAL: Pleasant female in no acute distress. HEENT: No scleral icterus or conjunctival pallor. No facial droop. CARDIOVASCULAR: Regular rate and rhythm. No obvious murmurs to auscultation. No chest tenderness to palpation. RESPIRATORY: No obvious rhonchi or wheezing. Clear to auscultation. Breath sounds equal bilaterally. GASTROINTESTINAL: Abdomen soft, non-tender, nondistended. BS normal. MUSCULOSKELETAL: LLE with wound VAC in two locations. NEUROLOGICAL: Awake, alert and oriented x4. No focal neurologic deficits. Moving both upper and lower extremities spontaneously. Results Procedures completed during hospitalization: Incision, drainage and debridement of the left popliteal collection. Debridement of the left groin wound. Wound VAC placements to both. Labs on day of discharge: Labs from last 24 hours 12/27/17 12/27/17 12/27/17 07:14 05:04 05:04 WBC 9.7 RBC 3.11 L Hgb 9.2 L Hct 28.6 L MCV 91.9 MCH 29.4 MCHC 32.0 RDW 19.7 H Plt Count 310 MPV 7.1 Neut % (Auto) 75.6 H Lymph % (Auto) 10.1 [place] % (Auto) 10.4 H Eos % (Auto) 2.9 Baso % (Auto) 1.0 Neut # (Auto) 7.3 Lymph # (Auto) 1.0 [place] # (Auto) 1.0 H Eos # (Auto) 0.3 Baso # (Auto) 0.1 WBC Differential . Differential Comment Auto diff final Sodium 136 Potassium 4.2 Chloride 97 L Carbon Dioxide 30.1 Anion Gap 9 BUN 22 H Creatinine 4.06 H Estimated GFR 11 L POC Glucose 104 Random Glucose 92 Calcium 8.9 Phosphorus 5.1 H Albumin 2.5 L 12/26/17 12/26/17 12/26/17 23:31 22:46 22:10 WBC RBC Hgb Hct MCV MCH MCHC RDW Plt Count MPV Neut % (Auto) Lymph % (Auto) [place] % (Auto) Eos % (Auto) Baso % (Auto) Neut # (Auto) Lymph # (Auto) [place] # (Auto) Eos # (Auto) Baso # (Auto) WBC Differential Differential Comment Sodium Potassium Chloride Carbon Dioxide Anion Gap BUN Creatinine Estimated GFR POC Glucose 89 64 L 58 L Random Glucose Calcium Phosphorus Albumin 12/26/17 12/26/17 12/26/17 21:44 20:30 17:16 WBC RBC Hgb Hct MCV MCH MCHC RDW Plt Count MPV Neut % (Auto) Lymph % (Auto) [place] % (Auto) Eos % (Auto) Baso % (Auto) Neut # (Auto) Lymph # (Auto) [place] # (Auto) Eos # (Auto) Baso # (Auto) WBC Differential Differential Comment Sodium Potassium Chloride Carbon Dioxide Anion Gap BUN Creatinine Estimated GFR POC Glucose 62 L 67 L 109 Random Glucose Calcium Phosphorus Albumin 12/26/17 12/26/17 13:15 12:53 WBC RBC Hgb Hct MCV MCH MCHC RDW Plt Count MPV Neut % (Auto) Lymph % (Auto) [place] % (Auto) Eos % (Auto) Baso % (Auto) Neut # (Auto) Lymph # (Auto) [place] # (Auto) Eos # (Auto) Baso # (Auto) WBC Differential Differential Comment Sodium Potassium Chloride Carbon Dioxide Anion Gap BUN Creatinine Estimated GFR POC Glucose 85 78 Random Glucose Calcium Phosphorus Albumin Preliminary micro results at discharge 12/22/17 17:20 Aerobic Blood Culture - Preliminary Blood - Peripheral No growth in 4 days Anaerobic Blood Culture - Preliminary No growth in 4 days 12/22/17 17:05 Aerobic Blood Culture - Preliminary Blood - Peripheral No growth in 4 days Anaerobic Blood Culture - Preliminary No growth in 4 days - Impressions ITS Impressions Chest X-Ray 12/22/17 17:10 CONCLUSION: No acute cardiopulmonary disease. There is no evidence of pneumonia. Discharge Plan - Discharge Disposition Patient Disposition: /Home Health Service - Discharge Condition Condition: Stable - Discharge Order Discharge Orders: Discharge Order (Routine); Ordered 12/27/17 Ordered By: Efrem Garzon - Discharge Details Anticipated Discharge Date: 12/27/17 - Physicians Team Primary Care Provider: Garret Samaniego Attending Provider: Efrem Garzon Other Providers: Hemant Shell MD ; Rihca Gutierrez MD ; Ryan Sampson MD ; [facility],Agency ; Bernardo Corrales MD ; [facility],Agency
== END 2017-12-27 13:46 | disposition home health service (06) ==
LOC: NEPE 15:42 → NEDA 19:03 → N07 20:53
PROVIDERS: ADMIT Hospitalist; ATTEND Hospitalist
DX: Z95.1 Presence of aortocoronary bypass graft; E11.22 Type 2 diabetes mellitus with diabetic chronic kidney disease; N18.6 End stage renal disease; Z99.2 Dependence on renal dialysis; E78.5 Hyperlipidemia, unspecified; T81.4XXA Infection following a procedure, initial encounter; Z79.4 Long term (current) use of insulin; B96.5 Pseudomonas (aeruginosa) (mallei) (pseudomallei) as the cause of diseases classified elsewhere; I12.0 Hypertensive chronic kidney disease with stage 5 chronic kidney disease or end stage renal disease; L03.116 Cellulitis of left lower limb; E11.51 Type 2 diabetes mellitus with diabetic peripheral angiopathy without gangrene; Z86.73 Personal history of transient ischemic attack (TIA), and cerebral infarction without residual deficits

== ENCOUNTER 2017-12-28 11:03 | Observation (INO) ==
--- NOTE | 2017-12-28 15:46 | ED ---
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 She was discharged in the hospital yesterday with 2 areas of wound VAC placement. She is on long-term IV antibiotics that she is due to get after her dialysis. Her wound VAC came undone today, she was unable to replace it, while trying to fix that she missed dialysis. Her wound care nurse is unable to give her her IV and Related Data Home Medications Medication Instructions Recorded Confirmed carvedilol [Coreg] 6.25 mg PO BID 12/22/17 12/22/17 cinacalcet [Sensipar] 30 mg PO DAILY 12/22/17 12/22/17 clopidogrel [Plavix] 75 mg PO DAILY 12/22/17 12/22/17 ezetimibe-simvastatin [Vytorin 1 tab PO QPM 12/22/17 12/22/17 10-80] gabapentin 100 mg PO BID 12/22/17 12/22/17 insulin pump-infus. set-meter 12/22/17 12/22/17 levothyroxine 125 mcg PO DAILY 12/22/17 12/22/17 ranitidine HCl [Zantac] 150 mg PO BID 12/22/17 12/22/17 sevelamer carbonate [Renvela] 800 mg PO QID 12/22/17 12/22/17 Previous Rx's Medication Instructions Recorded cefepime 2,000 mg IV Q48H ea 12/27/17 hydrocodone-acetaminophen 1 tab PO Q4H PRN #18 tab 12/27/17 Allergies Allergy/AdvReac Type Severity Reaction Status Date / Time amlodipine Allergy Severe Edema, Verified 12/22/17 22:56 Generalized adhesive tape Allergy Unknown Generalized Verified 12/22/17 22:56 Itching Review of Systems ROS Unobtainable All other systems reviewed negative except as stated in HPI [facility] Medical History Medical History Wound of left groin (Acute) ESRD on dialysis (Acute) Insulin pump in place (Acute) Type II diabetes mellitus (Acute) High cholesterol (Acute) HTN (hypertension) (Acute) 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 (Acute) Surgical History Surgical History History of cholecystectomy (Acute) History of appendectomy (Acute) H/O heart bypass surgery (Acute) Social History Social History Substance History: No History of Abuse Second Hand Smoke Exposure: No Smoking Status: Never smoker Tobacco Type: Cigarettes How Often Do You Have a Drink Containing Alcohol: Never Recent Travel in [facility] within the Last 8 Weeks: No Recent Out of Country Travel within the Last 8 Weeks: No Immunization History Tetanus Immunization: <5 Years Hx Influenza Vaccine This Season: Yes Exam Narrative Exam Narrative: GENERAL: Chronically ill-appearing 72-year-old woman, nontoxic, no acute distress. SKIN: Focused skin assessment warm/dry. HEAD: Atraumatic. Normocephalic. CARDIOVASCULAR: Regular rate and rhythm. No murmur appreciated. RESPIRATORY: No accessory muscle use. Clear to auscultation. Breath sounds equal bilaterally. GASTROINTESTINAL: Abdomen soft, non-tender, nondistended. Hepatic and splenic margins not palpable. MUSCULOSKELETAL: No obvious deformities. She has several areas of wound. There is a wound VAC high up on the left leg. There is a large open wound in the left medial leg, little bit more distal, with just the packing and dressing in place. Course Initial Documented Vital Signs Temperature 98.6 F 12/28/17 11:12 Pulse Rate 65 12/28/17 11:12 Respiratory Rate 20 12/28/17 11:12 Blood Pressure 146/63 H 12/28/17 11:12 Pulse Oximetry 99 12/28/17 11:12 Last Documented Vital Signs Temperature 98.6 F 12/28/17 11:12 Pulse Rate 65 12/28/17 11:12 Respiratory Rate 20 12/28/17 11:12 Blood Pressure 146/63 H 12/28/17 11:12 Pulse Oximetry 99 12/28/17 11:12 Medical Decision Making MDM Narrative Medical decision making narrative: Is a 72-year-old woman, discharge yesterday needs hemodialysis, IV antibiotics after hemodialysis, will plan on observation , discharge once this is accomplished. Discharge Plan Discharge Disposition Patient Disposition: 30 Still Patient Physicians Team ED Provider: Jann Gallegos Primary Care Provider: Garret Samaniego Rxs /Orders / Referrals /Forms Prescriptions: No Action carvedilol [Coreg] 6.25 mg Tablet 6.25 mg PO BID RF: 0 clopidogrel [Plavix] 75 mg Tablet 75 mg PO DAILY RF: 0 ranitidine HCl [Zantac] 150 mg Tablet 150 mg PO BID RF: 0 gabapentin 100 mg Capsule 100 mg PO BID RF: 0 cinacalcet [Sensipar] 30 mg Tablet 30 mg PO DAILY RF: 0 ezetimibe-simvastatin [Vytorin 10-80] 10-80 mg Tablet 1 tab PO QPM RF: 0 sevelamer carbonate [Renvela] 800 mg Tablet 800 mg PO QID RF: 0 levothyroxine 125 mcg Capsule 125 mcg PO DAILY RF: 0 insulin pump-infus. set-meter auto-injector RF: 0 cefepime 1 gram Recon Soln 2,000 mg IV Q48H RF: 0 hydrocodone-acetaminophen 5-325 mg Tablet 1 tab PO Q4H PRN (Reason: Pain Scale 1 To 10) Qty: 18 RF: 0 Status ED Status: With Doctor
[2017-12-28] MEDS ORDERED: Temazepam 15 MG Capsule PO PRN (15:47)
[2017-12-28] MEDS ORDERED: Acetaminophen 325 MG Tablet PO PRN (15:47)
[2017-12-28] MEDS: Heparin - SQ 10,000 UNITS/ML Vial SQ SCH (16:18)
[2017-12-28] MEDS ORDERED: EZETIMIBE SIMVASTATIN PO SCH (18:00)
--- NOTE | 2017-12-28 18:01 | P.HPIM ---
History of Present Illness Primary Care Physician: Garret Samaniego MD Chief Complaint: Wound vac problem History of Present Illness: The patient is a 72-year-old woman with end-stage renal disease and wounds in her left leg from recent femoropopliteal bypass complicated by several areas of infection who was discharged from the hospital yesterday who is presenting with a wound vac problem. The patient states that she was getting ready for dialysis this morning and she somehow pulled out the lower wound VAC. She is unsure how this happened. She called nurse pedodontist and they recommended packing the wound. The higher wound VAC remains in place. Because the patient was trying to fix her wound VAC she missed her dialysis this morning and came to the hospital for further care. The patient complained of the same pains she has been having recently. She denies any changes compared to how she has been feeling on her last hospitalization. She denies any shortness of breath. Her leg pain is controlled with p.o. medication. 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 (Acute) - Surgical History Surgical History: Surgical History (Last Reviewed 12/28/17 @ 15:44 by Jann Gallegos MD) History of cholecystectomy (Acute) History of appendectomy (Acute) H/O heart bypass surgery (Acute) - Tobacco History Second Hand Smoke Exposure: No Tobacco Use In Past 30 Days: No Smoking Status: Never smoker Tobacco Type: Cigarettes - Alcohol History How Often Do You Have a Drink Containing Alcohol: Never - Substance Use History Substance History: No History of Abuse - Travel History Recent Travel in the [place] Within the Last 8 Weeks: No Recent Travel Out of the Country Within the Last 8 Weeks: No - Immunization History Tetanus Immunization: <5 Years Hx Influenza Vaccine This Season: Yes Medications and Allergies Active Medications: Active Medications Acetaminophen (Tylenol) 650 mg PO Q4H PRN PRN Reason: Temp > 100.4 Carvedilol (Coreg) 6.25 mg PO BID [facility] Cinacalcet (Sensipar) 30 mg PO DAILY [facility] Clopidogrel Bisulfate (Plavix) 75 mg PO DAILY [facility] Gabapentin (Neurontin) 100 mg PO BID [facility] Heparin Sodium (Porcine) (Heparin Inj) 5,000 units SQ Q8H [facility] Last Admin: 12/28/17 16:18 Dose: 5,000 units Non-Formulary Medication (Ezetimibe-Simvastatin [Vytorin 10-80]) 1 tab PO QPM [facility] Non-Formulary Medication (Levothyroxine [Levothyroxine]) 125 mcg PO DAILY [facility] Non-Formulary Medication (Ranitidine Hcl [Zantac]) 150 mg PO BID [facility] Sevelamer Carbonate (Renvela) 800 mg PO QID [facility] Temazepam (Restoril) 15 mg PO HS PRN PRN Reason: INSOMNIA Allergies Allergy/AdvReac Type Severity Reaction Status Date / Time amlodipine Allergy Severe Edema, Verified 12/22/17 22:56 Generalized adhesive tape Allergy Unknown Generalized Verified 12/22/17 22:56 Itching Home Medications Medication Instructions Recorded Confirmed Type carvedilol [Coreg] 6.25 mg PO BID 12/22/17 12/22/17 History cinacalcet [Sensipar] 30 mg PO DAILY 12/22/17 12/22/17 History clopidogrel [Plavix] 75 mg PO DAILY 12/22/17 12/22/17 History ezetimibe-simvastatin [Vytorin 1 tab PO QPM 12/22/17 12/22/17 History 10-80] gabapentin 100 mg PO BID 12/22/17 12/22/17 History insulin pump-infus. set-meter 12/22/17 12/22/17 History levothyroxine 125 mcg PO DAILY 12/22/17 12/22/17 History ranitidine HCl [Zantac] 150 mg PO BID 12/22/17 12/22/17 History sevelamer carbonate [Renvela] 800 mg PO QID 12/22/17 12/22/17 History Exam Vital signs: Vital Signs 12/28/17 11:12 12/28/17 16:21 Temperature 98.6 F 98.8 F Pulse Rate 65 60 Respiratory Rate 20 16 Blood Pressure 146/63 H 134/62 Pulse Oximetry 99 Intake & Output 12/27/17 12/28/17 12/28/17 18:59 06:59 18:59 Weight 100.698 kg Narrative: GENERAL: No acute distress. SKIN: Focused skin assessment warm/dry. HEAD: Atraumatic. Normocephalic. CARDIOVASCULAR: Regular rate and rhythm. No murmur appreciated. RESPIRATORY: No accessory muscle use. Clear to auscultation. Breath sounds equal bilaterally. GASTROINTESTINAL: Abdomen soft, non-tender, nondistended. Hepatic and splenic margins not palpable. MUSCULOSKELETAL: There is a wound VAC high up on the left leg. There is a large open wound in the left medial leg, little bit more distal, with just the packing and dressing in place. NEURO: No gross deficits. Caprini VTE Risk Assessment Caprini VTE Risk Assessment: Moderate/High Risk (score >= 2) Caprini Risk Assessment Model: Point Value = 1 Point Value = 2 Point Value = 3 Point Value = 5 Age 41-60 Minor surgery BMI > 25 kg/m2 Swollen legs Varicose veins or History of unexplained or recurrent spontaneous Oral contraceptives or hormone replacement Sepsis (< 1 month) Serious lung disease, including pneumonia (< 1 month) Abnormal pulmonary function Acute myocardial infarction Congestive heart failure (< 1 month) History of inflammatory bowel disease Medical patient at bed rest Age 61-74 Arthroscopic surgery Major open surgery (> 45 min) Laparoscopic surgery (> 45 min) Malignancy Confined to bed (> 72 hours) Immobilizing plaster cast Central venous access Age >= 75 History of VTE Family history of VTE Factor V Leiden Prothrombin 47315H Lupus anticoagulant Anticardiolipin antibodies Elevated serum homocysteine Heparin-induced thrombocytopenia Other congenital or acquired thrombophilia Stroke (< 1 month) Elective arthroplasty Hip, pelvis, or leg fracture Acute spinal cord injury (< 1 month) Prophylaxis Regimen: Total Risk Factor Score Risk Level Prophylaxis Regimen 0-1 Low Early ambulation 2 Moderate Order ONE of the following: *Sequential Compression Device (SCD) *Heparin 5000 units SQ BID 3-4 Higher Order ONE of the following medications: *Heparin 5000 units SQ TID *Enoxaparin/Lovenox 40 mg SQ daily (WT < 150 kg, CrCl > 30 mL/min) *Enoxaparin/Lovenox 30 mg SQ daily (WT < 150 kg, CrCl > 10-29 mL/min) *Enoxaparin/Lovenox 30 mg SQ BID (WT < 150 kg, CrCl > 30 mL/min) AND/OR *Sequential Compression Device (SCD) 5 or more Highest Order ONE of the following medications: *Heparin 5000 units SQ TID (Preferred with Epidurals) *Enoxaparin/Lovenox 40 mg SQ daily (WT < 150 kg, CrCl > 30 mL/min) *Enoxaparin/Lovenox 30 mg SQ daily (WT < 150 kg, CrCl > 10-29 mL/min) *Enoxaparin/Lovenox 30 mg SQ BID (WT < 150 kg, CrCl > 30 mL/min) AND *Sequential Compression Device (SCD) Assessment and Plan - Plan LLE post op wound infection H/o LLE bypass w/ femoral artery endarterectomy complicated by infection. Vascular surgery consulted on last admission, s/p debridement and drainage of the collection of the left popliteal fossa and placement of a new wound VAC to the popliteals and inguinal space. Pseudomonas growing in cultures. She was discharged on IV cefepime to be dosed with dialysis. Last dose was 12/27. Wound vac became dislodged on the lower leg 12/28. - Continue cefepime. She will be due for her next dose after dialysis on 12/29. Discharge referral has been placed. - wound care nurse consult to replace dislodged wound vac. - pain control with a bowel regimen. - physical therapy. - case management consult. ESRD On HD: M/W/F, follows w/ Dr. Sampson. She missed her session 12/28. - Nephrology consulted to resume HD. - Resume home medications, monitor I/O. DM H/o DM, not on home medications, Hgb A1c 7.9%. Relatively well controlled. - sliding scale w/ Accu-Cheks. HTN Well controlled. - Monitor BP, resume home medications. DVT Prophylaxis: Heparin
[2017-12-28] MEDS ORDERED: Dextrose 50% in Water 50 ML Vial IV.PUSH PRN (18:03)
[2017-12-28] MEDS ORDERED: Ezetimibe 10 MG Tablet PO SCH (21:00)
[2017-12-28] MEDS: Famotidine 20 MG Tablet PO SCH (22:47)
[2017-12-28] MEDS: Insulin NovoLOG Aspart Correctional Sugar Inj SQ SCH (22:48)
[2017-12-28] MEDS: Gabapentin 100 MG Capsule PO SCH (22:48)
[2017-12-28] MEDS: Docusate Sodium 100 MG Capsule PO SCH (22:48)
[2017-12-28] MEDS: Carvedilol 6.25 MG Tablet PO SCH (22:48)
[2017-12-29] MEDS: Heparin - SQ 10,000 UNITS/ML Vial SQ SCH ×2 (05:13→08:59)
[2017-12-29] MEDS ORDERED: Levothyroxine 125 MCG Tablet PO SCH (06:00)
[2017-12-29 07:43] LABS: Baso # (Auto) 0.1 th/mm3 (0.0-0.2); Baso % (Auto) 0.9 % (0.0-2.0); Eos # (Auto) 0.3 th/mm3 (0.0-0.4); Eos % (Auto) 3.2 % (0.0-4.0); Hematocrit 28.2 % (35.0-46.0); Hemoglobin 8.9 gm/dL (11.6-15.3); Lymph # (Auto) 1.2 th/mm3 (1.0-4.8); Lymph % (Auto) 12.6 % (9.0-44.0); Mean Corpuscular HGB Conc 31.7 % (32.0-36.0); Mean Corpuscular Hemoglobin 29.2 pg (27.0-34.0); Mean Corpuscular Volume 92.1 fL (80.0-100.0); Mean Platelet Volume 7.2 fL (7.0-11.0); Mono # (Auto) 1.2 th/mm3 (0.0-0.9); Neut # (Auto) 6.5 th/mm3 (1.8-7.7); Neut % (Auto) 70.3 % (16.0-70.0); Platelet Count 265 th/mm3 (150-450); Red Blood Count 3.06 mil/mm3 (4.00-5.30); Red Cell Distribution Width 19.8 % (11.6-17.2); White Blood Count 9.2 th/mm3 (4.0-11.0)
[2017-12-29 08:29] LABS: Alanine Aminotransferase 11 U/L (10-53); Albumin 2.4 g/dL (3.4-5.0); Alkaline Phosphatase 368 U/L (45-117); Anion Gap 11 meq/L (5-15); Aspartate Aminotransferase 10 U/L (15-37); Blood Urea Nitrogen 40 mg/dL (7-18); Carbon Dioxide 27.1 meq/L (21.0-32.0); Chloride 96 meq/L (98-107); Glomerular Filtration Rate 7 mL/min (>89); Glucose,Random 94 mg/dL (74-106); Potassium 4.7 meq/L (3.5-5.1); Sodium 134 meq/L (136-145); Total Protein 6.4 g/dL (6.4-8.2)
[2017-12-29 08:49] VITALS: RESP 18
[2017-12-29] MEDS ORDERED: Albumin Human 25% Inj 100 ML IV.SIG PRN (08:53)
[2017-12-29] MEDS ORDERED: Sod Chloride 0.9% Inj 1,000 ML OTHER PRN ×2 (08:53)
[2017-12-29] MEDS ORDERED: Gelatin 12 MM/7 MM Topical Foam TOPICAL PRN (08:53)
[2017-12-29] MEDS ORDERED: Heparin 10,000 UNITS/10 ML Vial (for IV use) OTHER PRN ×2 (08:53)
[2017-12-29] MEDS ORDERED: Sod Chloride 0.9% Inj 1,000 ML IV.CONT PRN (08:53)
[2017-12-29] MEDS ORDERED: Acetaminophen 325 MG Tablet PO PRN (08:53)
--- NOTE | 2017-12-29 08:53 | P.CONNP ---
History of Present Illness Service: Nephrology Consult date: 12/28/17 Reason for Consult: Known ESRD on HD Primary Care Provider: Garret Samaniego MD Chief Complaint: Wound vac problem History of Present Illness: The patient is a 72 yo [place] female who is known to our services for ESRD on HD. She presented to the ED 12/28/17 with complaints of wound VAC malfunction. She was due for abx today during HD, but unfortunately missed 2/2 to her issues. 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 (Acute) - Surgical History Surgical History: Surgical History (Last Reviewed 12/28/17 @ 15:44 by Jann Gallegos MD) History of cholecystectomy (Acute) History of appendectomy (Acute) H/O heart bypass surgery (Acute) - Tobacco History Second Hand Smoke Exposure: No Tobacco Use In Past 30 Days: No Smoking Status: Never smoker Tobacco Type: Cigarettes - Alcohol History How Often Do You Have a Drink Containing Alcohol: Never - Substance Use History Substance History: No History of Abuse - Travel History Recent Travel in the [place] Within the Last 8 Weeks: No Recent Travel Out of the Country Within the Last 8 Weeks: No - Immunization History Tetanus Immunization: <5 Years Hx Influenza Vaccine This Season: Yes Medications and Allergies Active Medications: Active Medications Acetaminophen (Tylenol) 650 mg PO Q4H PRN PRN Reason: Temp > 100.4 Hydrocodone Bitart/Acetaminophen ([place] 5/325) 1 tab PO Q4H PRN PRN Reason: pain 3-10 Last Admin: 12/29/17 05:14 Dose: 1 tab Atorvastatin Calcium (Lipitor) 40 mg PO HS [facility] Last Admin: 12/28/17 22:47 Dose: 40 mg Carvedilol (Coreg) 6.25 mg PO BID [facility] Last Admin: 12/28/17 22:48 Dose: 6.25 mg Cinacalcet (Sensipar) 30 mg PO DAILY [facility] Clopidogrel Bisulfate (Plavix) 75 mg PO DAILY [facility] Dextrose (D50w Vial) 50 ml IV.PUSH UNSCH PRN PRN Reason: PER HYPOGLYCEMIA PROTOCOL Docusate Sodium (Colace) 100 mg PO BID [facility] Last Admin: 12/28/17 22:48 Dose: 100 mg Ezetimibe (Zetia) 10 mg PO HS [facility] Last Admin: 12/28/17 22:49 Dose: 10 mg Famotidine (Pepcid) 20 mg PO BID [facility] Last Admin: 12/28/17 22:47 Dose: 20 mg Gabapentin (Neurontin) 100 mg PO BID [facility] Last Admin: 12/28/17 22:48 Dose: 100 mg Glucagon (Glucagon Inj) 1 mg OTHER PRN PRN PRN Reason: for Hypoglycemia Protocol Heparin Sodium (Porcine) (Heparin Inj) 5,000 units SQ Q8H [facility] Last Admin: 12/29/17 05:13 Dose: 5,000 units Insulin Aspart (Novolog Insulin Correctional Sugar Inj) 0 unit SQ ACHS [facility]; Protocol Last Admin: 12/28/17 22:48 Dose: Not Given Levothyroxine Sodium (Synthroid) 125 mcg PO DAILY@0600 [facility] Last Admin: 12/29/17 05:14 Dose: 125 mcg Sevelamer Carbonate (Renvela) 800 mg PO QID [facility] Last Admin: 12/28/17 22:48 Dose: 800 mg Temazepam (Restoril) 15 mg PO HS PRN PRN Reason: INSOMNIA Allergies Allergy/AdvReac Type Severity Reaction Status Date / Time amlodipine Allergy Severe Edema, Verified 12/22/17 22:56 Generalized adhesive tape Allergy Unknown Generalized Verified 12/22/17 22:56 Itching Home Medications Medication Instructions Recorded Confirmed Type carvedilol [Coreg] 6.25 mg PO BID 12/22/17 12/28/17 History cinacalcet [Sensipar] 30 mg PO DAILY 12/22/17 12/28/17 History clopidogrel [Plavix] 75 mg PO DAILY 12/22/17 12/28/17 History ezetimibe-simvastatin [Vytorin 1 tab PO QPM 12/22/17 12/28/17 History 10-80] gabapentin 100 mg PO BID 12/22/17 12/28/17 History insulin pump-infus. set-meter 12/22/17 12/28/17 History levothyroxine 125 mcg PO DAILY 12/22/17 12/28/17 History ranitidine HCl [Zantac] 150 mg PO BID 12/22/17 12/28/17 History sevelamer carbonate [Renvela] 800 mg PO QID 12/22/17 12/28/17 History Exam Vital signs: Vital Signs 12/28/17 11:12 12/28/17 16:21 12/28/17 20:00 Temperature 98.6 F 98.8 F 98.1 F Pulse Rate 65 60 58 L Respiratory Rate 20 16 15 Blood Pressure 146/63 H 134/62 121/58 L Pulse Oximetry 99 98 12/28/17 22:30 12/28/17 23:53 12/29/17 04:00 Temperature 98.2 F 98.2 F Pulse Rate 55 L 60 Respiratory Rate 18 16 16 Blood Pressure 115/56 L 115/56 L Pulse Oximetry 97 99 Intake & Output 12/28/17 12/29/17 12/29/17 18:59 06:59 18:59 Weight 100.698 kg 100.698 kg Other: # Voids 1 Weight On Admission 100.698 kg - Constitutional no acute distress - Routine HEENT Exam Head: Present: normocephalic - Routine Neck Exam Present: supple - Routine Respiratory Exam Present: CTA bilaterally - Routine Cardiovascular Exam Present: RRR, S1, S2 - Routine Abdominal Exam Present: soft - Routine Extremities Exam Present: edema (trace-1+ pitting BLE) - Routine Neurological Exam Present: alert, oriented X3 Results - Lab Results 12/29/17 07:00 12/29/17 07:00 Most recent lab results Calcium 9.0 mg/dL (8.5-10.1) 12/29/17 07:00 Assessment and Plan - Assessment (1) ESRD (end stage renal disease) on dialysis Code(s): N18.6 - End stage renal disease; Z99.2 - Dependence on renal dialysis Status: Acute Plan: Pt seen during HD today. Will need dose of Cefepime 2g after HD prior to D/C/ To continue HD MWF otherwise with Cefepime 2g after each HD until 01/23/18. (2) HTN (hypertension) Code(s): I10 - Essential (primary) hypertension Status: Acute (3) Wound of left groin Code(s): S31.109A - Unspecified open wound of abdominal wall, unspecified quadrant without penetration into peritoneal cavity, initial encounter Status : Acute Plan: s/p re-attachment of wound VAC. Likely will be discharged today after HD and abx.
[2017-12-29] MEDS: Insulin NovoLOG Aspart Correctional Sugar Inj SQ SCH ×2 (08:56→13:16)
[2017-12-29] MEDS: Carvedilol 6.25 MG Tablet PO SCH (08:59)
[2017-12-29] MEDS: Gabapentin 100 MG Capsule PO SCH (09:02)
[2017-12-29] MEDS: Famotidine 20 MG Tablet PO SCH (09:03)
[2017-12-29] MEDS: Docusate Sodium 100 MG Capsule PO SCH (09:03)
[2017-12-29 13:27] VITALS: BP 135/59; PULSE 61; TEMP 98.8; O2SAT 98
--- NOTE | 2017-12-29 14:50 | P.PN ---
Subjective Interval history: Follow-up visit end-stage renal disease on hemodialysis, left femoropopliteal wound with wound VAC. Patient seen and examined today. and family at bedside. Patient states that she is doing well. Pain is manageable. States that she had peeled her wound VAC dressing and it had a leak was unable to put it back together that she was told to go to the hospital. She just completed dialysis and was given IV antibiotics. She will continue this at home. Denies pain and discomfort. Denies SOB/ dyspnea. Denies chest pain, palpitations, headaches, dizziness. Denies fevers, chills, n/v/d. Denies dysuria. Physical Exam Vital signs: Vital Signs 12/28/17 16:21 12/28/17 20:00 12/28/17 22:30 Temperature 98.8 F 98.1 F Pulse Rate 60 58 L Respiratory Rate 16 15 18 Blood Pressure 134/62 121/58 L Pulse Oximetry 98 12/28/17 23:53 12/29/17 04:00 12/29/17 08:00 Temperature 98.2 F 98.2 F 97.5 F L Pulse Rate 55 L 60 57 L Respiratory Rate 16 16 18 Blood Pressure 115/56 L 115/56 L 125/58 L Pulse Oximetry 97 99 99 12/29/17 13:25 Temperature 98.8 F Pulse Rate 61 Respiratory Rate 18 Blood Pressure 135/59 L Pulse Oximetry 98 Intake & Output 12/28/17 12/29/17 12/29/17 18:59 06:59 18:59 Intake Total 100 / 100 Output Total 1999 Balance -1900 / -1900 Weight 100.698 kg 100.698 kg Intake: IV 100 / 100 Maxipime Inj 2,000 MG In NS Inj 100 / 100 100 ML @ 200 mls/hr IV.SIG ONCE ONE Rx#:[id number] Output: Hemodialysis Amount 1999 Other: # Voids 1 Weight On Admission 100.698 kg Narrative: GENERAL: This is a well-nourished, well-developed patient, in no apparent distress. SKIN: Warm and dry. Left thigh wound with wound vac in place, surrounding edema and erythema. Left lower extremity wound with wound VAC, surrounding edema and erythema HEENT: Normocephalic. Pupils equal round and reactive. Nose without bleeding. Airway patent. NECK: Trachea midline. Supple. CARDIOVASCULAR: Regular rate and rhythm without murmurs, gallops, or rubs. RESPIRATORY: Clear to auscultation. Breath sounds equal bilaterally. No wheezes , rales, or rhonchi. GASTROINTESTINAL: Abdomen soft, non-tender, nondistended. Bowel Sounds normoactive x4. MUSCULOSKELETAL: Extremities without clubbing, cyanosis. Left lower extremity edema. NEUROLOGICAL: Awake and alert. Oriented to time, place, person. No focal neuro deficit. Moves all extremities. Normal speech. Results - Labs CBC & Chem 7: 12/29/17 07:00 12/29/17 07:00 Laboratory Results - last 24 hr 12/28/17 12/28/17 12/29/17 16:46 22:27 05:17 WBC RBC Hgb Hct MCV MCH MCHC RDW Plt Count MPV Neut % (Auto) Lymph % (Auto) [place] % (Auto) Eos % (Auto) Baso % (Auto) Neut # (Auto) Lymph # (Auto) [place] # (Auto) Eos # (Auto) Baso # (Auto) WBC Differential Differential Comment Sodium Potassium Chloride Carbon Dioxide Anion Gap BUN Creatinine Estimated GFR POC Glucose 88 157 H 94 Random Glucose Calcium Total Bilirubin AST ALT Alkaline Phosphatase Total Protein Albumin 12/29/17 12/29/17 12/29/17 07:00 07:00 08:56 WBC 9.2 RBC 3.06 L Hgb 8.9 L Hct 28.2 L MCV 92.1 MCH 29.2 MCHC 31.7 L RDW 19.8 H Plt Count 265 MPV 7.2 Neut % (Auto) 70.3 H Lymph % (Auto) 12.6 [place] % (Auto) 13.0 H Eos % (Auto) 3.2 Baso % (Auto) 0.9 Neut # (Auto) 6.5 Lymph # (Auto) 1.2 [place] # (Auto) 1.2 H Eos # (Auto) 0.3 Baso # (Auto) 0.1 WBC Differential . Differential Comment Auto diff final Sodium 134 L Potassium 4.7 Chloride 96 L Carbon Dioxide 27.1 Anion Gap 11 BUN 40 H Creatinine 5.99 H Estimated GFR 7 L POC Glucose 105 Random Glucose 94 Calcium 9.0 Total Bilirubin 0.5 AST 10 L ALT 11 Alkaline Phosphatase 368 H Total Protein 6.4 Albumin 2.4 L 12/29/17 11:14 WBC RBC Hgb Hct MCV MCH MCHC RDW Plt Count MPV Neut % (Auto) Lymph % (Auto) [place] % (Auto) Eos % (Auto) Baso % (Auto) Neut # (Auto) Lymph # (Auto) [place] # (Auto) Eos # (Auto) Baso # (Auto) WBC Differential Differential Comment Sodium Potassium Chloride Carbon Dioxide Anion Gap BUN Creatinine Estimated GFR POC Glucose 121 H Random Glucose Calcium Total Bilirubin AST ALT Alkaline Phosphatase Total Protein Albumin Assessment and Plan - Assessment (1) Cellulitis Code(s): L03.90 - Cellulitis, unspecified Status: Acute (2) DM (diabetes mellitus) Code(s): E11.9 - Type 2 diabetes mellitus without complications Status: Acute (3) Wound of left groin Code(s): S31.109A - Unspecified open wound of abdominal wall, unspecified quadrant without penetration into peritoneal cavity, initial encounter Status : Acute (4) ESRD on dialysis Code(s): N18.6 - End stage renal disease; Z99.2 - Dependence on renal dialysis Status: Acute - Plan patient is a 72-year-old woman with end-stage renal disease and wounds in her left leg from recent femoropopliteal bypass complicated by several areas of infection who was discharged from the hospital yesterday who is presenting with a wound vac problem. LLE post op wound infection -H/o LLE bypass w/ femoral artery endarterectomy complicated by infection. Vascular surgery consulted on last admission, s/p debridement and drainage of the collection of the left popliteal fossa and placement of a new wound VAC to the popliteals and inguinal space. Pseudomonas growing in cultures. She was discharged on IV cefepime to be dosed with dialysis. Last dose was 12/27. Wound vac became dislodged on the lower leg 12/28. -Continue cefepime. She will be due for her next dose after dialysis on 12/29. Discharge referral has been placed. -wound care nurse consult to replace dislodged wound vac. Wound VAC has been replaced. -pain control with a bowel regimen. -DC with C and wound care. HD gini ESRD On HD: M/W/F, follows w/ Dr. Sampson. She missed her session 12/28. -Nephrology consulted to resume HD. -Resume home medications, monitor I/O. DM H/o DM, not on home medications, Hgb A1c 7.9%. Relatively well controlled. -sliding scale w/ Accu-Cheks. HTN Well controlled. -Monitor BP, resume home medications. DVT Prophylaxis: Heparin Discharge patient to home with home health care Condition on discharge: Improved Diabetic diet as tolerated Ad Judith activity Rx written: cont home meds Follow-up with primary care physician Code Status: Full code Discussed Condition With: Patient, nurse Discharge Planning: Plan to DC home today continue with home health care. (1) Cellulitis Qualifiers: Site of cellulitis: extremity Site of cellulitis of extremity: lower extremity Laterality: left Qualified Code(s): L03.116 - Cellulitis of left lower limb
--- NOTE | 2017-12-29 15:00 | P.DCO ---
- Physical Therapy Order: Evaluate and treat, Improve ambulation, Strength and gait training - Home Health Nursing Order: Medical education, Signs/symptoms of disease process, Medication education-adverse effect, Wound care and dressing changes, Nursing assessment with vital signs, IV medication administration Instructions: WOUND VAC as ordered - Certification I have seen patient Mary Jarrell on 12/29/17. My clinical findings support the need for the requested home health care services because: Limited mobility due to disease progression, Deconditioned with increased weakness, Medication compliance is questionable, Limited ability to care for self I certify that my clinical findings support that this patient is homebound because: Unsteady gait/balance, Non-ambulatory: confined to bed or chair, Unable to use public transportation, Poor cardiac reserve
--- NOTE | 2017-12-29 15:41 | P.PNWCN ---
Wound Care Nurse Consult Description: Wound consult ordered by for wound vac management Communicated with: Mary MERCADO, Recommendation: Follow up with home health agency for //tue wound vac changes. Additional information: Patient was seen today by designer writer for wound vac placement to left lower extremity full thickness wound and surgical wound.Wounds cleansed with normal saline pat dry Adaptic gauze single layer place on exposed fascia periwounds window paned with drape.black GranuFoam sponge cut to fit wound bed applied .Sponge covered with transparent drape and track pad applied connected to Y connector.Seal obtained @125mmHg low continuous suction with no leaks noted .Patient tolerated wound care well .Currently established with Nurses director of parks and recreation home health whom will perform dressing change Tuesday.No questions or comments upon writers departure. Wound Vac - Wound Vac Left Upper Leg Pressure Setting (mmHg): 125 Mode Setting: Continuous Drainage Description: Serosanguinous Foam type: Black Other Foam Type: Adaptic Left Lower Leg Pressure Setting (mmHg): 125 Mode Setting: Continuous Drainage Description: Serosanguinous Foam type: Black Other Foam Type: adaptic
== END 2017-12-29 17:21 | disposition home health service (06) ==
LOC: NEDA 11:03 → NEPE 11:03 → NEPGCP 11:03
PROVIDERS: ADMIT Hospitalist; ATTEND Hospitalist
DX: L03.90 Cellulitis, unspecified; Z79.02 Long term (current) use of antithrombotics/antiplatelets; E11.22 Type 2 diabetes mellitus with diabetic chronic kidney disease; N18.6 End stage renal disease; I74.3 Embolism and thrombosis of arteries of the lower extremities; Z96.41 Presence of insulin pump (external) (internal); Z91.048 Other nonmedicinal substance allergy status; I12.0 Hypertensive chronic kidney disease with stage 5 chronic kidney disease or end stage renal disease; S31.109A Unspecified open wound of abdominal wall, unspecified quadrant without penetration into peritoneal cavity, initial encounter; Z90.49 Acquired absence of other specified parts of digestive tract; Z79.899 Other long term (current) drug therapy; F17.210 Nicotine dependence, cigarettes, uncomplicated; Z79.4 Long term (current) use of insulin; E78.00 Pure hypercholesterolemia, unspecified; Z99.2 Dependence on renal dialysis

== ENCOUNTER 2018-01-12 11:28 | Inpatient (IN) ==
[2018-01-12] MEDS ORDERED: HYDROmorphone PF Inj 2 MG/ML Vial IV.PUSH ONE (12:00)
--- NOTE | 2018-01-12 12:28 | ED ---
HPI General Chief Complaint: Extremity Injury, Lower Stated Complaint: Leg pain Time Seen by Provider: 01/12/18 11:42 Source: patient Mode of arrival: ambulatory Limitations: no limitations History of Present Illness HPI Narrative: 72-year-old female arrives at the request of Dr. Brothers of vascular surgery. The patient has pain in the bilateral lower extremities. The left lower extremity she has had postoperative wound infections and has been taking antibiotics for those, cefepime and clindamycin. The right lower extremity has severe peripheral artery disease with progressive ischemia causing constant severe pain. As needed oxycodone and 25 mcg/h fentanyl patch does not adequately manage pain. Pain especially on the right side has gradually increased. No fever or vomiting. Compliance with antibiotics reported. I spoke with Dr. Brothers who requests admission to the hospital service for help managing multiple medical problems. A request for a consultation to him and Dr. Rodrigues of vascular was requested. Dr Brothers requested that CTA imaging not be obtained. Severity: severe Relieving factors: other (minimal benefit with oxycodone and fentanyl) Exacerbating factors: movement and palpation Related Data Home Medications Medication Instructions Recorded Confirmed carvedilol [Coreg] 6.25 mg PO BID 12/22/17 12/28/17 cinacalcet [Sensipar] 30 mg PO DAILY 12/22/17 12/28/17 clopidogrel [Plavix] 75 mg PO DAILY 12/22/17 12/28/17 ezetimibe-simvastatin [Vytorin 1 tab PO QPM 12/22/17 12/28/17 10-80] gabapentin 100 mg PO BID 12/22/17 12/28/17 insulin pump-infus. set-meter 12/22/17 12/28/17 levothyroxine 125 mcg PO DAILY 12/22/17 12/28/17 ranitidine HCl [Zantac] 150 mg PO BID 12/22/17 12/28/17 sevelamer carbonate [Renvela] 800 mg PO QID 12/22/17 12/28/17 Previous Rx's Medication Instructions Recorded cefepime 2,000 mg IV Q48H ea 12/27/17 hydrocodone-acetaminophen 1 tab PO Q4H PRN #18 tab 12/27/17 Allergies Allergy/AdvReac Type Severity Reaction Status Date / Time amlodipine Allergy Severe Edema, Verified 12/22/17 22:56 Generalized adhesive tape Allergy Unknown Generalized Verified 12/22/17 22:56 Itching Review of Systems ROS: all other systems reviewed are negative Constitutional Denies fever(s) PMFSH Family History Family History Other Cancer Congestive heart failure Social History Social History Substance History: No History of Abuse Second Hand Smoke Exposure: No Smoking Status: Never smoker Tobacco Type: Cigarettes How Often Do You Have a Drink Containing Alcohol: Never Recent Travel in [facility] within the Last 8 Weeks: No Recent Out of Country Travel within the Last 8 Weeks: No Immunization History Tetanus Immunization: Unsure Hx Influenza Vaccine This Season: Unable to Assess Exam Narrative Exam Narrative: GENERAL: 72-year-old female pleasant well-nourished well- developed moderate to severe distress secondary to pain SKIN: In the region left inguinal crease is a approximate 10 cm x 5 cm markedly tender open surgical wound with some granulation tissue and ecchymosis about the margin possibly and necrosis about the inferior margin. Along the medial aspect of the left tibia is a approximate 10 x 2 cm surgical incision wound. Along the lateral aspect of the left thigh from the region of the greater trochanter to about the midportion of the thigh is an area of chronic appearing ecchymosis which is also quite tender. There is no crepitus. The right lower extremity from the distal third of the tibia through the tips of the toes is erythematous markedly tender with some purple discoloration of the fourth and fifth toe. The heel on the right side there is a open wound and along the head of the first metatarsal there is an open wound laterally. There is no palpable dorsalis pedis pulse on the right side. HEAD: Atraumatic. Normocephalic. EYES: Pupils equal and round. No scleral icterus. No injection or drainage. ENT: No nasal bleeding or discharge. Mucous membranes pink and moist. NECK: Trachea midline. No JVD. CARDIOVASCULAR: Regular rate and rhythm. No murmur appreciated. RESPIRATORY: No accessory muscle use. Clear to auscultation. Breath sounds equal bilaterally. GASTROINTESTINAL: Abdomen soft, non-tender, nondistended. Hepatic and splenic margins not palpable. MUSCULOSKELETAL: No obvious deformities. No clubbing. No cyanosis. No edema. NEUROLOGICAL: Awake and alert. No obvious cranial nerve deficits. Motor grossly within normal limits. Normal speech. PSYCHIATRIC: Appropriate mood and affect; insight and judgment normal. Course Initial Documented Vital Signs Temperature 98.5 F 01/12/18 11:33 Pulse Rate 70 01/12/18 11:33 Respiratory Rate 20 01/12/18 11:33 Blood Pressure 101/45 L 01/12/18 11:33 Pulse Oximetry 98 01/12/18 11:33 Last Documented Vital Signs Temperature 98.5 F 01/12/18 11:33 Pulse Rate 70 01/12/18 11:33 Respiratory Rate 18 01/12/18 11:50 Blood Pressure 125/58 L 01/12/18 11:50 Pulse Oximetry 98 01/12/18 11:33 Medical Decision Making DIRK Attestation DIRK supervised visit: No MDM Narrative Medical decision making narrative: The patient has multiple medical conditions including end-stage kidney disease (test equipment mechanic is Dr. Sampson), diabetes, hypertension in addition to concurrent cellulitis about surgical wounds. There is infected wounds along the left lower extremity and a progressive ischemic right lower extremity. The main issues now are both infection and pain management. Hospitalist service called. The patient received 1 mg hydromorphone here IV. This is on top of 25 mcg fentanyl and 10 mg of oxycodone which had been given about 8 hours prior to ER arrival. d/w Dr Taylor for [facility] service. Medical Screen Exam Complete: Yes Emergency Medical Condition: Yes Medical Records Medical records reviewed: Yes I reviewed the patient's medical records. Lab Data Lab results reviewed: Yes I reviewed the patient's lab results. Result diagrams: 01/12/18 12:15 01/12/18 12:15 Lab Results 01/12/18 01/12/18 01/12/18 Range/Units 12:15 12:15 12:15 WBC 15.2 H (4.0-11.0) th/mm3 RBC 3.44 L (4.00-5.30) mil/mm3 Hgb 10.7 L (11.6-15.3) gm/dL Hct 32.1 L (35.0-46.0) % MCV 93.1 (80.0-100.0) fL MCH 31.2 (27.0-34.0) pg MCHC 33.5 (32.0-36.0) % RDW 20.2 H (11.6-17.2) % Plt Count 371 D (150-450) th/mm3 MPV 7.9 (7.0-11.0) fL Neut % (Auto) 80.0 H (16.0-70.0) % Lymph % (Auto) 7.8 L (9.0-44.0) % [place] % (Auto) 10.1 H (0.0-8.0) % Eos % (Auto) 1.3 (0.0-4.0) % Baso % (Auto) 0.8 (0.0-2.0) % Neut # (Auto) 12.1 H (1.8-7.7) th/mm3 Lymph # (Auto) 1.2 (1.0-4.8) th/mm3 [place] # (Auto) 1.5 H (0.0-0.9) th/mm3 Eos # (Auto) 0.2 (0.0-0.4) th/mm3 Baso # (Auto) 0.1 (0.0-0.2) th/mm3 WBC Differential . Differential Comment Auto diff final PT 11.0 (9.8-11.6) sec INR 1.1 Ratio APTT 29.9 (24.3-30.1) sec Sodium 133 L (136-145) meq/L Potassium 4.4 (3.5-5.1) meq/L Chloride 95 L (98-107) meq/L Carbon Dioxide 27.4 (21.0-32.0) meq/L Anion Gap 11 (5-15) meq/L BUN 25 H (7-18) mg/dL Creatinine 4.17 H (0.50-1.00) mg/dL Estimated GFR 10 L (>89) mL/min Random Glucose 110 H (74-106) mg/dL Calcium 9.9 (8.5-10.1) mg/dL Total Bilirubin 0.7 (0.2-1.0) mg/dL AST 23 (15-37) U/L ALT 15 (10-53) U/L Alkaline Phosphatase 535 H (45-117) U/L Total Protein 8.6 H (6.4-8.2) g/dL Albumin 2.6 L (3.4-5.0) g/dL Lipase 85 (73-393) U/L Blood Type Antibody Screen 01/12/18 Range/Units 12:15 WBC (4.0-11.0) th/mm3 RBC (4.00-5.30) mil/mm3 Hgb (11.6-15.3) gm/dL Hct (35.0-46.0) % MCV (80.0-100.0) fL MCH (27.0-34.0) pg MCHC (32.0-36.0) % RDW (11.6-17.2) % Plt Count (150-450) th/mm3 MPV (7.0-11.0) fL Neut % (Auto) (16.0-70.0) % Lymph % (Auto) (9.0-44.0) % [place] % (Auto) (0.0-8.0) % Eos % (Auto) (0.0-4.0) % Baso % (Auto) (0.0-2.0) % Neut # (Auto) (1.8-7.7) th/mm3 Lymph # (Auto) (1.0-4.8) th/mm3 [place] # (Auto) (0.0-0.9) th/mm3 Eos # (Auto) (0.0-0.4) th/mm3 Baso # (Auto) (0.0-0.2) th/mm3 WBC Differential Differential Comment PT (9.8-11.6) sec INR Ratio APTT (24.3-30.1) sec Sodium (136-145) meq/L Potassium (3.5-5.1) meq/L Chloride (98-107) meq/L Carbon Dioxide (21.0-32.0) meq/L Anion Gap (5-15) meq/L BUN (7-18) mg/dL Creatinine (0.50-1.00) mg/dL Estimated GFR (>89) mL/min Random Glucose (74-106) mg/dL Calcium (8.5-10.1) mg/dL Total Bilirubin (0.2-1.0) mg/dL AST (15-37) U/L ALT (10-53) U/L Alkaline Phosphatase (45-117) U/L Total Protein (6.4-8.2) g/dL Albumin (3.4-5.0) g/dL Lipase (73-393) U/L Blood Type O Negative Antibody Screen Negative Discharge Plan Discharge Disposition Patient Disposition: 30 Still Patient Physicians Team ED Provider: Satish Emerson Primary Care Provider: Garret Samaniego Attending Provider: Mika Taylor Other Providers: Ryan Sampson ; Shant Brothers ; Richa Gutierrez Discharge Interventions Interventions: Vital Signs Last Done: 01/12/18 11:50 Status ED Status: Admitted Observation Patient
[2018-01-12 12:47] LABS: Baso # (Auto) 0.1 th/mm3 (0.0-0.2); Baso % (Auto) 0.8 % (0.0-2.0); Eos # (Auto) 0.2 th/mm3 (0.0-0.4); Eos % (Auto) 1.3 % (0.0-4.0); Hematocrit 32.1 % (35.0-46.0); Hemoglobin 10.7 gm/dL (11.6-15.3); Lymph # (Auto) 1.2 th/mm3 (1.0-4.8); Lymph % (Auto) 7.8 % (9.0-44.0); Mean Corpuscular HGB Conc 33.5 % (32.0-36.0); Mean Corpuscular Hemoglobin 31.2 pg (27.0-34.0); Mean Corpuscular Volume 93.1 fL (80.0-100.0); Mean Platelet Volume 7.9 fL (7.0-11.0); Mono # (Auto) 1.5 th/mm3 (0.0-0.9); Mono % (Auto) 10.1 % (0.0-8.0); Neut # (Auto) 12.1 th/mm3 (1.8-7.7); Platelet Count 371 th/mm3 (150-450); Red Blood Count 3.44 mil/mm3 (4.00-5.30); Red Cell Distribution Width 20.2 % (11.6-17.2); White Blood Count 15.2 th/mm3 (4.0-11.0)
[2018-01-12 12:56] LABS: Activated Partial Thrombo Time 29.9 sec (24.3-30.1); INR 1.1 Ratio
[2018-01-12 13:17] LABS: Alanine Aminotransferase 15 U/L (10-53); Albumin 2.6 g/dL (3.4-5.0); Alkaline Phosphatase 535 U/L (45-117); Anion Gap 11 meq/L (5-15); Aspartate Aminotransferase 23 U/L (15-37); Blood Urea Nitrogen 25 mg/dL (7-18); Calcium 9.9 mg/dL (8.5-10.1); Carbon Dioxide 27.4 meq/L (21.0-32.0); Chloride 95 meq/L (98-107); Glomerular Filtration Rate 10 mL/min (>89); Glucose,Random 110 mg/dL (74-106); Lipase 85 U/L (73-393); Sodium 133 meq/L (136-145); Total Protein 8.6 g/dL (6.4-8.2)
[2018-01-12 13:34] LABS: Potassium 4.4 meq/L (3.5-5.1)
--- NOTE | 2018-01-12 14:02 | P.HP ---
History of Present Illness Primary Care Physician: Garret Samaniego MD History of Present Illness: 72 y/o WF admitted for intract BL LE pain. Namely right foot and left proximal thigh. Patient was in her usual state of health until about 1 week ago when she began experiencing worsening of the pains in her bilateral lower extremities. She has been unable to bear weight now due to the pain whereas she could normally at least transfer and make to her wheelchair. Now the pain is becoming unbearable. Has associated new onset increasing progressing erythema emerging over RLE from ríos level down covering the right foot. unable to bear wt due to pain. Also has left lateral thigh bruising and induration that is very painful as well. Vomited x3 this week per . no fevers, nor diarrhea. Denies any lower extremity swelling. Denies any shortness of breath. Has been treated for chronic ischemic and infected wounds over her left lower extremity, one that is on anterior proximal left thigh and medial left calf. Is still being treated for them with cefepime with her dialysis sessions for recent klebsiella/ Pseudomonas infection. denies any change in the nature of the drainage from the wounds, no purulence noted. Says that wounds drain on a daily basis. Most recently had multiple hospitalization related to her LE wounds. Had a fempop bypass earlier this summer with subsequent formation of chronic wounds . Family member at bedside states that the patient has been most recently started on [facility] because the pain that she has been having his uncontrolled on the max regimen she can receive not being on hospice. Family member states that she is now on a fentanyl patch and oxycodone. 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 (Acute) - Surgical History Surgical History: Surgical History (Last Reviewed 01/12/18 @ 14:01 by Mika Taylor MD) History of cholecystectomy (Acute) History of appendectomy (Acute) H/O heart bypass surgery (Acute) - Family History Family History: Family History (Last Updated 01/12/18 @ 14:14 by Mika Taylor MD) Other Cancer Congestive heart failure - Tobacco History Second Hand Smoke Exposure: No Tobacco Use In Past 30 Days: No Smoking Status: Never smoker Tobacco Type: Cigarettes - Alcohol History How Often Do You Have a Drink Containing Alcohol: Never - Substance Use History Substance History: No History of Abuse - Travel History Recent Travel in the [place] Within the Last 8 Weeks: No Recent Travel Out of the Country Within the Last 8 Weeks: No - Immunization History Tetanus Immunization: Unsure Hx Influenza Vaccine This Season: Unable to Assess Medications and Allergies Active Medications: Active Medications Sodium Chloride (Ns Flush) 2 ml IV.FLUSH BID RICARDO Sodium Chloride (Ns Flush) 2 ml IV.FLUSH PRN PRN PRN Reason: FLUSH AFTER USING IV ACCESS Allergies Allergy/AdvReac Type Severity Reaction Status Date / Time amlodipine Allergy Severe Edema, Verified 12/22/17 22:56 Generalized adhesive tape Allergy Unknown Generalized Verified 12/22/17 22:56 Itching Home Medications Medication Instructions Recorded Confirmed Type carvedilol [Coreg] 6.25 mg PO BID 12/22/17 12/28/17 History cinacalcet [Sensipar] 30 mg PO DAILY 12/22/17 12/28/17 History clopidogrel [Plavix] 75 mg PO DAILY 12/22/17 12/28/17 History ezetimibe-simvastatin [Vytorin 1 tab PO QPM 12/22/17 12/28/17 History 10-80] gabapentin 100 mg PO BID 12/22/17 12/28/17 History insulin pump-infus. set-meter 12/22/17 12/28/17 History levothyroxine 125 mcg PO DAILY 12/22/17 12/28/17 History ranitidine HCl [Zantac] 150 mg PO BID 12/22/17 12/28/17 History sevelamer carbonate [Renvela] 800 mg PO QID 12/22/17 12/28/17 History Exam Vital signs: Vital Signs 01/12/18 11:33 01/12/18 11:50 Temperature 98.5 F Pulse Rate 70 Respiratory Rate 20 18 Blood Pressure 101/45 L 125/58 L Pulse Oximetry 98 Intake & Output 08/15/18 08/16/18 08/16/18 18:59 06:59 18:59 Weight 102.512 kg Narrative: VS: afebrile GENERAL: Obese white female, lying in bed, mild distress secondary to pain, SKIN: Warm and dry. Right ríos with scatterred erythematous streaks that coalease further down at the level of the foot where there is global edema and purple discoloration of right 5th toe. Also has about a palm sized area of induration and ecchymosis over the lateral proximal left thigh that is very tender to touch. Has a anterior wound on the left proximal thigh that has eschar formation on the inferior margin, also has about a 6 inch wound on her left medial thigh. Both wounds are packed with dressing, no obvious purulent drainage, just serosanguineous. EYES: No scleral icterus. No injection or drainage. ENT: No nasal bleeding or discharge. Mucous membranes pink and moist. CARDIOVASCULAR: Regular rate and rhythm. no murmurs RESPIRATORY: No accessory muscle use. Clear to auscultation. Breath sounds equal bilaterally. GASTROINTESTINAL: Abdomen soft, non-tender, nondistended. Extremities: No clubbing, cyanosis, or edema. No obvious deformities. MUSCULOSKELETAL: adequate muscle bulk and tone for age and habitus NEUROLOGICAL: Awake and alert. No obvious cranial nerve deficits. No facial droop nor slurred speech noted. PSYCHIATRIC: Appropriate mood and affect; insight and judgment normal. Results - Labs CBC & Chem 7: 01/12/18 12:15 01/12/18 12:15 Labs: Laboratory Results - last 24 hr 01/12/18 01/12/18 01/12/18 12:15 12:15 12:15 WBC 15.2 H RBC 3.44 L Hgb 10.7 L Hct 32.1 L MCV 93.1 MCH 31.2 MCHC 33.5 RDW 20.2 H Plt Count 371 D MPV 7.9 Neut % (Auto) 80.0 H Lymph % (Auto) 7.8 L [place] % (Auto) 10.1 H Eos % (Auto) 1.3 Baso % (Auto) 0.8 Neut # (Auto) 12.1 H Lymph # (Auto) 1.2 [place] # (Auto) 1.5 H Eos # (Auto) 0.2 Baso # (Auto) 0.1 WBC Differential . Differential Comment Auto diff final PT 11.0 INR 1.1 APTT 29.9 Sodium 133 L Potassium 4.4 Chloride 95 L Carbon Dioxide 27.4 Anion Gap 11 BUN 25 H Creatinine 4.17 H Estimated GFR 10 L Random Glucose 110 H Calcium 9.9 Total Bilirubin 0.7 AST 23 ALT 15 Alkaline Phosphatase 535 H Total Protein 8.6 H Albumin 2.6 L Lipase 85 Blood Type Antibody Screen 01/12/18 12:15 WBC RBC Hgb Hct MCV MCH MCHC RDW Plt Count MPV Neut % (Auto) Lymph % (Auto) [place] % (Auto) Eos % (Auto) Baso % (Auto) Neut # (Auto) Lymph # (Auto) [place] # (Auto) Eos # (Auto) Baso # (Auto) WBC Differential Differential Comment PT INR APTT Sodium Potassium Chloride Carbon Dioxide Anion Gap BUN Creatinine Estimated GFR Random Glucose Calcium Total Bilirubin AST ALT Alkaline Phosphatase Total Protein Albumin Lipase Blood Type O Negative Antibody Screen Negative Caprini VTE Risk Assessment Caprini VTE Risk Assessment: Moderate/High Risk (score >= 2) VTE Pharmacological Exception Reason: Postop bleeding VTE Mechanical Exception: LE injury/wound Caprini Risk Assessment Model: Point Value = 1 Point Value = 2 Point Value = 3 Point Value = 5 Age 41-60 Minor surgery BMI > 25 kg/m2 Swollen legs Varicose veins or History of unexplained or recurrent spontaneous Oral contraceptives or hormone replacement Sepsis (< 1 month) Serious lung disease, including pneumonia (< 1 month) Abnormal pulmonary function Acute myocardial infarction Congestive heart failure (< 1 month) History of inflammatory bowel disease Medical patient at bed rest Age 61-74 Arthroscopic surgery Major open surgery (> 45 min) Laparoscopic surgery (> 45 min) Malignancy Confined to bed (> 72 hours) Immobilizing plaster cast Central venous access Age >= 75 History of VTE Family history of VTE Factor V Leiden Prothrombin [id number] Lupus anticoagulant Anticardiolipin antibodies Elevated serum homocysteine Heparin-induced thrombocytopenia Other congenital or acquired thrombophilia Stroke (< 1 month) Elective arthroplasty Hip, pelvis, or leg fracture Acute spinal cord injury (< 1 month) Prophylaxis Regimen: Total Risk Factor Score Risk Level Prophylaxis Regimen 0-1 Low Early ambulation 2 Moderate Order ONE of the following: *Sequential Compression Device (SCD) *Heparin 5000 units SQ BID 3-4 Higher Order ONE of the following medications: *Heparin 5000 units SQ TID *Enoxaparin/Lovenox 40 mg SQ daily (WT < 150 kg, CrCl > 30 mL/min) *Enoxaparin/Lovenox 30 mg SQ daily (WT < 150 kg, CrCl > 10-29 mL/min) *Enoxaparin/Lovenox 30 mg SQ BID (WT < 150 kg, CrCl > 30 mL/min) AND/OR *Sequential Compression Device (SCD) 5 or more Highest Order ONE of the following medications: *Heparin 5000 units SQ TID (Preferred with Epidurals) *Enoxaparin/Lovenox 40 mg SQ daily (WT < 150 kg, CrCl > 30 mL/min) *Enoxaparin/Lovenox 30 mg SQ daily (WT < 150 kg, CrCl > 10-29 mL/min) *Enoxaparin/Lovenox 30 mg SQ BID (WT < 150 kg, CrCl > 30 mL/min) AND *Sequential Compression Device (SCD) Assessment and Plan - Plan Right foot pain - cellulitis + possible acute on chronic ischemia. Vasc surg consult pending. abx per ID. - continue home fentanyl and gabapentin and oxycodone - We will defer antiplatelet therapy (home medicine being Plavix) to vascular surgery in case procedure is warranted left prox thigh pain - cellulitis , abx per ID (dapto and merrem) Leukocytosis -Stress-induced, possibly from cellulitis as well, monitor for now, treated with antibiotics as above PAD -defer plavix therapy to vasc surg in case procedure anticipated -continue home statin; d/w pharmacy, will check CPK once weekly since pt is started on dapto given risk of myositis Chronic lower extremity wounds -Continue wound care Diabetes type I -Patient wants to use her home insulin pump which I evaluated which seems to be running at a basal rate of 1 U/h. Patient has insisted to let her at least use the basal rate of her insulin pump and is allowing us to cover her with sliding scale as needed otherwise. Her current pump has about 100 hours left worth of basal rate insulin before it runs out. They will attempt to get the cartridge from home. Nephrology -End-stage renal disease, dialysis Tuesday, nephrology consult for such No mechanical DVT prophylaxis due to lower extremity conditions, no pharmacological DVT prophylaxis in light of possible surgery Discharge Planning: Pt affirms full code for now. Currently on hospice otherwise.
[2018-01-12] MEDS ORDERED: Dextrose 50% in Water 50 ML Vial IV.PUSH PRN (14:18)
[2018-01-12] MEDS ORDERED: DAPTOmycin Inj 600 MG in Sodium Chlor 0.9% Inj 100 ML IV.SIG SCH ×2 (15:00→16:00)
--- NOTE | 2018-01-12 15:41 | MB ---
cc: Bernardo Corrales MD DATE: 01/12/2018 REQUESTING PHYSICIAN: Dr. Brothers. REASON: Ischemia with cellulitis of the right foot. Patient with history of wound infections of the left leg. HISTORY OF PRESENT ILLNESS: This is a 72-year-old white female who is known to me from previous hospitalizations. The patient was last admitted for a dehisced wound at the left tibia from a vascular procedure at the end of November. She had Pseudomonas aeruginosa cultured from the leg and also Klebsiella pneumoniae. She was discharged on cefepime, which she was receiving at home. She has been undergoing hemodialysis 3 times a week on Mondays, Wednesdays, and Fridays. She had a previous open wound at the left thigh/groin which was treated with a long course of antibiotics and she was undergoing wound treatment with wound changes. Prior to that she had several wound VACs applied to the wounds. She was noted to have granulation tissue at both the tibial wound and the groin wound. About a week ago, she developed redness of her right foot and became progressively worse with increased erythema and purplish discoloration at the right fifth toe and at the base of the fifth toe as well. She also was noted to develop redness at the lateral thigh, which is new on the left and it has changed color to a slightly purplish. It is around the level of a groin wound but at the lateral aspect of the thigh. The patient tells me that she has had Her is at bedside. He notes that she has had 3 episodes of vomiting after she ate breakfast this week. Besides that, she denies other symptoms including fever, chills, shortness of breath, dizziness, or sweats. Her white count is elevated at 15.2 and she also has increased alkaline phosphatase of 535. She has no trouble with bowel movements. She is afebrile. Blood pressure is normal. She does admit that she has had very severe pains in the leg where the wounds are located on the left. She is awake and alert. 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 ALLERGIES: AMLODIPINE, ADHESIVE TAPE. MEDICATIONS: 1. Coreg. 2. Sensipar. 3. Neurontin. 4. Zantac. 5. Levothyroxine. 6. Renvela. 7. The patient received cefepime with dialysis yesterday. SOCIAL HISTORY: The patient is . No tobacco, no alcohol, no illicit drugs. FAMILY HISTORY: Noncontributory. REVIEW OF SYSTEMS: All systems have been reviewed and are negative, except for that mentioned in the history of present illness. PHYSICAL EXAMINATION: GENERAL: This is a moderately obese female who is in no acute distress. She is currently awake and alert, pleasant. VITAL SIGNS: Temperature 98.5, BP 124/58, respirations 18, heart rate 80. HEENT: Head is atraumatic. Extraocular movements grossly intact. Pupils reactive to light. No icterus. No conjunctival erythema. Oropharynx mucosa moist. NECK: Supple without adenopathy. LUNGS: Clear to auscultation. HEART: Regular S1, S2, without murmurs, rubs or gallops. ABDOMEN: Bowel sounds present, obese, soft, nontender. RECTAL: Not performed. EXTREMITIES: The left inner thigh has chronic open ulceration with good granulation tissue, but some mild erythema at the edge of the lower aspect and some necrosis as well at the edge of the lower aspect of the wound crater. The left lateral thigh has purplish discoloration of the skin. It is warm to touch. The left inner tibial area where the dehisced surgical incision is located is clean with good granulation tissue and some specks of necrotic tissue within it. The left foot is intact and has no erythema. The right foot has a bright red confluent erythema which extends up the proximal tibia and the right 5th toe is completely purplish discolored; and the area around the left fifth toe as well including the plantar aspect has a dark blue discoloration and there is a superficial ulceration at the base of the fifth toe. The upper extremities have no clubbing, cyanosis or edema. SKIN: No diffuse rash. NEUROLOGIC: She is alert and oriented. No gross focal finding. PSYCHIATRIC: The patient is pleasant, calm, and cooperative. ASSESSMENT: 1. Severe peripheral vascular disease, now involving the right foot with necrotic changes at the right fifth toe and base of the right fifth toe. 2. Open wound of the left inner tibia which grew out Pseudomonas and Klebsiella, sensitive to cefepime in late November. 3. Chronic open wound of the left inner groin/thigh which has had positive bacteria in the past and was treated with antibiotics and was doing well with dressing changes. However, now she has some discolored erythematous change in the lateral aspect which may suggest an area of cellulitis and infection, as well. The patient has had prior wounds before these and she had great difficulty healing. 4. Diabetes mellitus. 5. End-stage renal disease on hemodialysis via a right upper extremity arteriovenous fistula which is functioning well. RECOMMENDATIONS: 1. Begin daptomycin. The patient has had VRE in the past in addition to other organisms. 2. Begin meropenem for gram-negative coverage. 3. Begin Diflucan. She has also had Rosa in the past. 4. Follow response of the wounds. 5. Surgical intervention to be determined by vascular surgery. 6. Monitor white blood cell count. 7. Monitor clinical status. The has been discussed with the patient and her . I Will be off tomorrow. Dr. Shiva Feldman will be covering in my absence, and the ID doctor on the weekend will also cover this weekend as well. Thank you for this consultation. I will continue to monitor the patient's progress also. MD INGA Campuzano/ghazal/dane , 02:29 PM , 02:50 PM [place]
[2018-01-12] MEDS: DAPTOmycin Inj 600 MG in Sodium Chlor 0.9% Inj 100 ML IV.SIG SCH (17:50)
[2018-01-12] MEDS ORDERED: EZETIMIBE SIMVASTATIN PO SCH (18:00)
[2018-01-12] MEDS: Ezetimibe 10 MG Tablet PO SCH (18:02)
--- NOTE | 2018-01-12 20:12 | CT ---
EXAM DATE: 01/12/2018 8:00 PM EDT AGE/SEX: 72 years / Female INDICATIONS: Cellulitis abscess CLINICAL DATA: This is the patient's initial encounter. Patient reports that signs and symptoms have been present for 1 day and indicates a pain score of 7/10. MEDICAL/SURGICAL HISTORY: Hypertension. Diabetes. Renal failure, chronic. Cancer Cholecystectom y. RADIATION DOSE: 33.23 CTDI (mGy) COMPARISON: [facility] – [place], CT ABDOMEN & PELVIS W/O CONTRAST, 11/15/2017. . TECHNIQUE: Multiple contiguous axial images were acquired using a multirow detector CT scanner witho ut contrast. Multiplanar reconstruction was performed in the sagittal and coronal planes. Using auto mated exposure control and adjustment of the mA and/or kV according to patient size, radiation dose w as kept as low as reasonably achievable to obtain optimal diagnostic quality images. DICOM format im age data is available electronically for review and comparison. FINDINGS: There are multiple soft tissue defects including the upper anterior thigh as well as the me dial lower thigh in the region of the knee joint. Stranding in the subcutaneous tissues is characteri stic of regional edema but I do not see findings of a drainable abscess. Osseous structures are intac t. There is athetotic calcification of the regional vasculature. CONCLUSION: 1. Soft tissue defect in the anterior upper left thigh and the medial distal left thigh at the level of the knee. 2. Diffuse subcutaneous soft tissue edema. No drainable abscess identified. Electronically signed by: Bradly Pearson MD 01/12/2018 8:11 PM EDT
[2018-01-12] MEDS: Carvedilol 6.25 MG Tablet PO SCH (20:32)
[2018-01-12] MEDS: Heparin - SQ 10,000 UNITS/ML Vial SQ SCH (20:40)
[2018-01-12] MEDS: Gabapentin 100 MG Capsule PO SCH (20:41)
[2018-01-12] MEDS: Famotidine 20 MG Tablet PO SCH (20:42)
[2018-01-13 04:29] LABS: Baso # (Auto) 0.1 th/mm3 (0.0-0.2); Baso % (Auto) 1.3 % (0.0-2.0); Eos # (Auto) 0.2 th/mm3 (0.0-0.4); Eos % (Auto) 1.4 % (0.0-4.0); Hematocrit 30.3 % (35.0-46.0); Hemoglobin 9.6 gm/dL (11.6-15.3); Lymph # (Auto) 1.4 th/mm3 (1.0-4.8); Mean Corpuscular HGB Conc 31.6 % (32.0-36.0); Mean Corpuscular Hemoglobin 29.5 pg (27.0-34.0); Mean Corpuscular Volume 93.3 fL (80.0-100.0); Mean Platelet Volume 7.6 fL (7.0-11.0); Mono # (Auto) 1.5 th/mm3 (0.0-0.9); Neut # (Auto) 8.4 th/mm3 (1.8-7.7); Neut % (Auto) 72.3 % (16.0-70.0); Platelet Count 305 th/mm3 (150-450); Red Blood Count 3.24 mil/mm3 (4.00-5.30); Red Cell Distribution Width 19.9 % (11.6-17.2); White Blood Count 11.6 th/mm3 (4.0-11.0)
[2018-01-13] MEDS: Levothyroxine 125 MCG Tablet PO SCH (05:05)
[2018-01-13] MEDS: Insulin NovoLOG Aspart Correctional Sugar Inj SQ SCH ×4 (08:40→20:20)
[2018-01-13] MEDS: Carvedilol 6.25 MG Tablet PO SCH ×2 (08:41→20:20)
[2018-01-13] MEDS: Gabapentin 100 MG Capsule PO SCH ×2 (08:41→20:18)
[2018-01-13] MEDS: Famotidine 20 MG Tablet PO SCH ×2 (08:42→20:18)
[2018-01-13] MEDS: Heparin - SQ 10,000 UNITS/ML Vial SQ SCH ×2 (08:43→20:20)
[2018-01-13] MEDS ORDERED: Acetaminophen 325 MG Tablet PO PRN (09:49)
[2018-01-13] MEDS ORDERED: Sod Chloride 0.9% Inj 1,000 ML IV.CONT PRN (09:49)
[2018-01-13] MEDS ORDERED: Heparin 10,000 UNITS/10 ML Vial (for IV use) OTHER PRN ×2 (09:49)
[2018-01-13] MEDS ORDERED: Sod Chloride 0.9% Inj 1,000 ML OTHER PRN (09:49)
--- NOTE | 2018-01-13 09:49 | P.CONNP ---
History of Present Illness Service: Nephrology Consult date: 01/12/18 Requesting Physician: Mika Taylor Reason for Consult: Known ESRD on HD Primary Care Provider: Garret Samaniego MD Chief Complaint: Worsening RLE pain History of Present Illness: The patient is a 72 yo [place] female who is known to our services for ESRD on HD. She has had multiple admissions over the past 6 months regarding revascularization of LLE complicated by non-healing of the wound, wound dehiscence, and recurrent cellulitis leading to need for prolonged IV abx and wound VAC. She also has a known non-healing ulceration on her R heel and was told recently that she has severe PAD in her right leg and will likely need amputation soon. She presents with progressive pain in her right foot with darkening toes and redness extending to ríos with inability to ambulate 2/2 to severe pain. There is also a new area of erythema on left lateral thigh that is concerning for new cellulitis. ID has been to see the patient and started on new abx regimen. Pending vascular consultation at this point in time. Should be noted that she is a [facility] patient with dialysis just started . She remains full code with aggressive care. We have been consulted for dialysis management. Last outpatient HD 01/11/18. 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 (Acute) - Surgical History Surgical History: Surgical History (Last Reviewed 01/13/18 @ 09:42 by ANTHONY Recinos) History of cholecystectomy (Acute) History of appendectomy (Acute) H/O heart bypass surgery (Acute) - Family History Family History: Family History (Last Reviewed 01/13/18 @ 09:42 by ANTHONY Recinos) Other Cancer Congestive heart failure - Tobacco History Second Hand Smoke Exposure: No Tobacco Use In Past 30 Days: No Smoking Status: Former smoker Tobacco Type: Cigarettes - Alcohol History How Often Do You Have a Drink Containing Alcohol: Never - Substance Use History Substance History: No History of Abuse - Travel History Recent Travel in the [place] Within the Last 8 Weeks: No Recent Travel Out of the Country Within the Last 8 Weeks: No - Immunization History Tetanus Immunization: Unsure Hx Influenza Vaccine This Season: Unable to Assess Medications and Allergies Active Medications: Active Medications Atorvastatin Calcium (Lipitor) 40 mg PO QPM [facility] Last Admin: 01/12/18 18:02 Dose: 40 mg Carvedilol (Coreg) 6.25 mg PO BID [facility] Last Admin: 01/13/18 08:41 Dose: Not Given Cinacalcet (Sensipar) 30 mg PO DAILY [facility] Last Admin: 01/13/18 08:52 Dose: 30 mg Dextrose (D50w Vial) 50 ml IV.PUSH UNSCH PRN PRN Reason: PER HYPOGLYCEMIA PROTOCOL Ezetimibe (Zetia) 10 mg PO QPM [facility] Last Admin: 01/12/18 18:02 Dose: 10 mg Famotidine (Pepcid) 10 mg PO BID [facility] Last Admin: 01/13/18 08:42 Dose: 10 mg Fentanyl (Duragesic 25 Mcg Patch.72hr) 1 patch T-DERMAL Q3D [facility] Last Admin: 01/12/18 17:50 Dose: 1 patch Gabapentin (Neurontin) 100 mg PO BID [facility] Last Admin: 01/13/18 08:41 Dose: 100 mg Glucagon (Glucagon Inj) 1 mg OTHER PRN PRN PRN Reason: for Hypoglycemia Protocol Heparin Sodium (Porcine) (Heparin Inj) 5,000 units SQ Q12H [facility] Last Admin: 01/13/18 08:43 Dose: 5,000 units Daptomycin 600 mg/ Sodium (Chloride) 100 mls @ 200 mls/hr IV.SIG Q48H [facility] Last Infusion: 01/12/18 18:46 Dose: Infused Meropenem 2,000 mg/ Sodium (Chloride) 100 mls @ 200 mls/hr IV.SIG Q24H [facility] Last Infusion: 01/12/18 19:20 Dose: Infused Fluconazole (Diflucan 200 Mg Premix Bag) 100 mls @ 100 mls/hr IV.SIG Q24H [facility] Last Infusion: 01/12/18 21:38 Dose: Infused Insulin Aspart (Novolog Insulin Correctional Sugar Inj) 0 unit SQ ACHS [facility]; Protocol Last Admin: 01/13/18 08:40 Dose: 2 unit Levothyroxine Sodium (Synthroid) 125 mcg PO DAILY@0600 [facility] Last Admin: 01/13/18 05:05 Dose: 125 mcg Oxycodone HCl (Roxicodone) 10 mg PO Q8H PRN PRN Reason: Acute Pain Patch Removal (Remove Old Patch) 1 each T-DERMAL Q3D [facility] Sevelamer Carbonate (Renvela) 800 mg PO QID [facility] Last Admin: 01/13/18 08:40 Dose: 800 mg Sodium Chloride (Ns Flush) 2 ml IV.FLUSH BID [facility] Last Admin: 01/13/18 08:42 Dose: 2 ml Sodium Chloride (Ns Flush) 2 ml IV.FLUSH PRN PRN PRN Reason: FLUSH AFTER USING IV ACCESS Allergies Allergy/AdvReac Type Severity Reaction Status Date / Time amlodipine Allergy Severe Edema, Verified 12/22/17 22:56 Generalized adhesive tape Allergy Unknown Generalized Verified 12/22/17 22:56 Itching Home Medications Medication Instructions Recorded Confirmed Type carvedilol [Coreg] 6.25 mg PO BID 12/22/17 01/12/18 History cinacalcet [Sensipar] 30 mg PO DAILY 12/22/17 01/12/18 History clopidogrel [Plavix] 75 mg PO DAILY 12/22/17 01/12/18 History ezetimibe-simvastatin [Vytorin 1 tab PO QPM 12/22/17 01/12/18 History 10-80] gabapentin 100 mg PO BID 12/22/17 01/12/18 History insulin pump-infus. set-meter 12/22/17 12/28/17 History levothyroxine 0.125 mg PO DAILY 12/22/17 01/12/18 History ranitidine HCl [Zantac] 150 mg PO BID 12/22/17 01/12/18 History sevelamer carbonate [Renvela] 800 mg PO QID 12/22/17 01/12/18 History clindamycin HCl 300 mg PO TID 01/12/18 01/12/18 History fentanyl 1 patch TRANSDERMAL Q72H 01/12/18 01/12/18 History oxycodone 10 mg PO Q4H PRN 01/12/18 01/12/18 History Exam Vital signs: Vital Signs 01/12/18 11:33 01/12/18 11:50 01/12/18 15:00 Temperature 98.5 F 98.9 F Pulse Rate 70 68 Respiratory Rate 20 18 18 Blood Pressure 101/45 L 125/58 L 104/45 L Pulse Oximetry 98 01/12/18 16:00 01/12/18 20:00 01/13/18 00:00 Temperature 97.4 F L 98.4 F 98 F Pulse Rate 65 62 60 Respiratory Rate 16 17 17 Blood Pressure 111/55 L 97/49 L 104/57 L Pulse Oximetry 97 97 96 01/13/18 08:00 Temperature 97.9 F Pulse Rate 63 Respiratory Rate 18 Blood Pressure 99/45 L Pulse Oximetry 96 Intake & Output 01/12/18 01/13/18 01/13/18 18:59 06:59 18:59 Intake Total 400 / 400 440 / 440 Balance 400 / 400 440 / 440 Weight 102.512 kg 102.512 kg Intake: IV 100 / 100 200 / 200 Cubicin Inj 600 MG In NS Inj 100 / 100 100 ML @ 200 mls/hr IV.SIG Q48H [facility] Rx#:[id number] Diflucan 200 mg Premix Bag 100 100 / 100 ML @ 100 mls/hr IV.SIG Q24H [facility] Rx#:[id number] Merrem Inj 2,000 MG In NS Inj 100 / 100 100 ML @ 200 mls/hr IV.SIG Q24H [facility] Rx#:[id number] Oral 300 / 300 240 / 240 - Constitutional no acute distress Comments: visibly tearful - Routine HEENT Exam Head: Present: normocephalic, atraumatic - Routine Neck Exam Present: supple - Routine Respiratory Exam Present: CTA bilaterally - Routine Cardiovascular Exam Present: RRR, S1, S2 - Routine Abdominal Exam Present: soft, normoactive bowel sounds - Routine Extremities Exam Present: AV fistula - Routine Skin Exam Comments: right 5th toe is purple with extending erythema from foot to her mid ríos. Approx 2cm ulceration on R heel. Large heeling wounds in medial left thigh. Left lateral thigh with large area of erythema and warmth to palpation without definite area of loculation or open wound. - Routine Neurological Exam Present: alert Results - Lab Results 01/13/18 03:38 01/12/18 12:15 Most recent lab results Calcium 9.9 mg/dL (8.5-10.1) 01/12/18 12:15 Assessment and Plan - Assessment (1) ESRD (end stage renal disease) on dialysis Code(s): N18.6 - End stage renal disease; Z99.2 - Dependence on renal dialysis Status: Acute Plan: HD today with tentative MWF schedule as per outpatient. Epogen with HD. Check Phos and iPTH levels. Medications should be adjusted for the patient's ESRD. Avoid gadolinium. (2) Peripheral vascular disease of lower extremity with ulceration Code(s): I73.9 - Peripheral vascular disease, unspecified; L97.909 - Non- pressure chronic ulcer of unspecified part of unspecified lower leg with unspecified severity Status: Acute Plan: Awaiting vascular consultation. ID on case and abx have been adjusted. Will likely require amputation of RLE. Pt aware. (3) Cellulitis Code(s): L03.90 - Cellulitis, unspecified Status: Acute Plan: Abx per ID (4) DM (diabetes mellitus) Code(s): E11.9 - Type 2 diabetes mellitus without complications Status: Acute Plan: Mgmt per primary (3) Cellulitis Qualifiers: Site of cellulitis: extremity Site of cellulitis of extremity: lower extremity Laterality: left Qualified Code(s): L03.116 - Cellulitis of left lower limb
--- NOTE | 2018-01-13 11:14 | P.PNIM ---
Subjective Interval history: The patient was complaining of a lot of lower extremity pain. She said that her new pain medication regimen was working. She said she spoke with the vascular surgeon yesterday. She also spoke with nephrology this morning. She says she is due for dialysis. She has not had a bowel movement in a few days and says she normally takes Metamucil at home. Family at the bedside. Physical Exam Vital signs: Vital Signs 01/12/18 11:33 01/12/18 11:50 01/12/18 15:00 Temperature 98.5 F 98.9 F Pulse Rate 70 68 Respiratory Rate 20 18 18 Blood Pressure 101/45 L 125/58 L 104/45 L Pulse Oximetry 98 01/12/18 16:00 01/12/18 20:00 01/13/18 00:00 Temperature 97.4 F L 98.4 F 98 F Pulse Rate 65 62 60 Respiratory Rate 16 17 17 Blood Pressure 111/55 L 97/49 L 104/57 L Pulse Oximetry 97 97 96 01/13/18 08:00 Temperature 97.9 F Pulse Rate 63 Respiratory Rate 18 Blood Pressure 99/45 L Pulse Oximetry 96 Intake & Output 01/12/18 01/13/18 01/13/18 18:59 06:59 18:59 Intake Total 400 / 400 440 / 440 Balance 400 / 400 440 / 440 Weight 102.512 kg 102.512 kg Intake: IV 100 / 100 200 / 200 Cubicin Inj 600 MG In NS Inj 100 / 100 100 ML @ 200 mls/hr IV.SIG Q48H [facility] Rx#:[id number] Diflucan 200 mg Premix Bag 100 100 / 100 ML @ 100 mls/hr IV.SIG Q24H [facility] Rx#:[id number] Merrem Inj 2,000 MG In NS Inj 100 / 100 100 ML @ 200 mls/hr IV.SIG Q24H [facility] Rx#:[id number] Oral 300 / 300 240 / 240 Narrative: GENERAL: Obese female, lying in bed, no distress. SKIN: Right foot with purple discoloration of 5th toe. Erythema around the area. Also has about a palm sized area of induration and ecchymosis over the lateral proximal left thigh that is very tender to touch. Has a anterior wound on the left proximal thigh that has eschar formation on the inferior margin, also has about a 6 inch wound on her left medial thigh. EYES: No scleral icterus. No injection or drainage. ENT: No nasal bleeding or discharge. Mucous membranes pink and moist. CARDIOVASCULAR: Regular rate and rhythm. No murmurs. RESPIRATORY: No accessory muscle use. Clear to auscultation. Breath sounds equal bilaterally. GASTROINTESTINAL: Abdomen soft, non-tender, nondistended. MUSCULOSKELETAL: LE exam as above. NEUROLOGICAL: Awake and alert. No obvious cranial nerve deficits. Results - Labs CBC & Chem 7: 01/13/18 03:38 01/12/18 12:15 Laboratory Results - last 24 hr 01/12/18 01/12/18 01/12/18 12:15 12:15 12:15 WBC 15.2 H RBC 3.44 L Hgb 10.7 L Hct 32.1 L MCV 93.1 MCH 31.2 MCHC 33.5 RDW 20.2 H Plt Count 371 D MPV 7.9 Neut % (Auto) 80.0 H Lymph % (Auto) 7.8 L [place] % (Auto) 10.1 H Eos % (Auto) 1.3 Baso % (Auto) 0.8 Neut # (Auto) 12.1 H Lymph # (Auto) 1.2 [place] # (Auto) 1.5 H Eos # (Auto) 0.2 Baso # (Auto) 0.1 WBC Differential . Differential Comment Auto diff final PT 11.0 INR 1.1 APTT 29.9 Sodium 133 L Potassium 4.4 Chloride 95 L Carbon Dioxide 27.4 Anion Gap 11 BUN 25 H Creatinine 4.17 H Estimated GFR 10 L POC Glucose Random Glucose 110 H Calcium 9.9 Total Bilirubin 0.7 AST 23 ALT 15 Alkaline Phosphatase 535 H Total Creatine Kinase Total Protein 8.6 H Albumin 2.6 L Lipase 85 Blood Type Antibody Screen 01/12/18 01/12/18 01/12/18 12:15 16:46 22:17 WBC RBC Hgb Hct MCV MCH MCHC RDW Plt Count MPV Neut % (Auto) Lymph % (Auto) [place] % (Auto) Eos % (Auto) Baso % (Auto) Neut # (Auto) Lymph # (Auto) [place] # (Auto) Eos # (Auto) Baso # (Auto) WBC Differential Differential Comment PT INR APTT Sodium Potassium Chloride Carbon Dioxide Anion Gap BUN Creatinine Estimated GFR POC Glucose 143 H 176 H Random Glucose Calcium Total Bilirubin AST ALT Alkaline Phosphatase Total Creatine Kinase Total Protein Albumin Lipase Blood Type O Negative Antibody Screen Negative 01/13/18 01/13/18 01/13/18 03:38 03:38 07:14 WBC 11.6 H RBC 3.24 L Hgb 9.6 L Hct 30.3 L MCV 93.3 MCH 29.5 MCHC 31.6 L RDW 19.9 H Plt Count 305 MPV 7.6 Neut % (Auto) 72.3 H Lymph % (Auto) 12.0 [place] % (Auto) 13.0 H Eos % (Auto) 1.4 Baso % (Auto) 1.3 Neut # (Auto) 8.4 H Lymph # (Auto) 1.4 [place] # (Auto) 1.5 H Eos # (Auto) 0.2 Baso # (Auto) 0.1 WBC Differential . Differential Comment Auto diff final PT INR APTT Sodium Potassium Chloride Carbon Dioxide Anion Gap BUN Creatinine Estimated GFR POC Glucose 199 H Random Glucose Calcium Total Bilirubin AST ALT Alkaline Phosphatase Total Creatine Kinase 28 Total Protein Albumin Lipase Blood Type Antibody Screen - Imaging Impressions Femur CT 01/12/18 00:00 CONCLUSION: 1. Soft tissue defect in the anterior upper left thigh and the medial distal left thigh at the level of the knee. 2. Diffuse subcutaneous soft tissue edema. No drainable abscess identified. Assessment and Plan - Plan Right foot pain/ Chronic lower extremity wounds Cellulitis + possible acute on chronic ischemia. -Vasc surg consult pending. -antibiotics per ID. -continue home fentanyl and gabapentin and oxycodone. -We will defer antiplatelet therapy (home medicine being Plavix) to vascular surgery in case procedure is warranted. PAD Chronic. -defer Plavix therapy to vasc surgery. -continue home statin; will check CPK once weekly since pt is started on dapto given risk of myositis. Diabetes type I Patient wants to use her home insulin pump. -pt will use insulin pump. Sliding scale as needed. Nephrology End-stage renal disease, dialysis Tuesday. -dialysis per nephrology. Constipation Chronic. -add Metamucil per pt request. Chronic pain The pt is on hospice as an outpt. -case management consult. -pain control. No mechanical DVT prophylaxis due to lower extremity conditions, no pharmacological DVT prophylaxis in light of possible surgery
--- NOTE | 2018-01-13 11:31 | P.PNID ---
Subjective Remarks: ID Coverage 72 year old female with known PVD, admitted for evaluation of discoloration on her R foot. She has had prior revascularization surgery on her left lower extremity, and this was complicated by postoperative wound infection on the left groin as well as on the left leg. She grew Pseudomonas and Klebsiella from her wounds. She was discharged and was getting IV antibiotics in the dialysis clinic. Patient stated that she has not had any revascularization procedure on her right lower extremity. Notes reviewed Temps ok Has had ulcer over her 5th MT for months recent bluish discoloration of her R 5th toe and MTP Gets HD MWF Has AVF RUE Antibiotics: Meropenem Daptomycin Diflucan Past Medical History: Diabetes mellitus, end-stage kidney disease, on hemodialysis Tuesday, Tuesday and Tuesday; hypertension, hypercholesteremia, left groin wound infection post-vascular surgery, status post femoral popliteal arterial bypass graft for thrombosed arterial disease of the left leg, wound infection of a the left tibial, history of cholecystectomy, history of appendectomy, history of coronary artery bypass graft. Allergies/Adverse Reactions: Allergies amlodipine Allergy (Severe, Verified 12/22/17 22:56) Edema, Generalized adhesive tape Allergy (Unknown, Verified 12/22/17 22:56) Generalized Itching Redness Objective Vital Signs 01/12/18 11:33 01/12/18 11:50 01/12/18 15:00 Temperature 98.5 F 98.9 F Pulse Rate 70 68 Respiratory Rate 20 18 18 Blood Pressure 101/45 L 125/58 L 104/45 L Pulse Oximetry 98 01/12/18 16:00 01/12/18 20:00 01/13/18 00:00 Temperature 97.4 F L 98.4 F 98 F Pulse Rate 65 62 60 Respiratory Rate 16 17 17 Blood Pressure 111/55 L 97/49 L 104/57 L Pulse Oximetry 97 97 96 01/13/18 08:00 01/13/18 11:19 Temperature 97.9 F Pulse Rate 63 Respiratory Rate 18 Blood Pressure 99/45 L Pulse Oximetry 96 97 Intake & Output 01/12/18 01/13/18 01/13/18 18:59 06:59 18:59 Intake Total 400 / 400 440 / 440 Balance 400 / 400 440 / 440 Weight 102.512 kg 102.512 kg Intake: IV 100 / 100 200 / 200 Cubicin Inj 600 MG In NS Inj 100 / 100 100 ML @ 200 mls/hr IV.SIG Q48H [facility] Rx#:[id number] Diflucan 200 mg Premix Bag 100 100 / 100 ML @ 100 mls/hr IV.SIG Q24H [facility] Rx#:[id number] Merrem Inj 2,000 MG In NS Inj 100 / 100 100 ML @ 200 mls/hr IV.SIG Q24H [facility] Rx#:[id number] Oral 300 / 300 240 / 240 Lab - Hematology Results 01/12/18 01/13/18 12:15 03:38 WBC 15.2 H 11.6 H RBC 3.44 L 3.24 L Hgb 10.7 L 9.6 L Hct 32.1 L 30.3 L MCV 93.1 93.3 MCH 31.2 29.5 MCHC 33.5 31.6 L RDW 20.2 H 19.9 H Plt Count 371 D 305 MPV 7.9 7.6 Neut % (Auto) 80.0 H 72.3 H Lymph % (Auto) 7.8 L 12.0 [place] % (Auto) 10.1 H 13.0 H Eos % (Auto) 1.3 1.4 Baso % (Auto) 0.8 1.3 Neut # (Auto) 12.1 H 8.4 H Lymph # (Auto) 1.2 1.4 [place] # (Auto) 1.5 H 1.5 H Eos # (Auto) 0.2 0.2 Baso # (Auto) 0.1 0.1 WBC Differential . . Differential Comment Auto diff final Auto diff final Lab - Chemistry Results 01/12/18 01/12/18 01/12/18 12:15 16:46 22:17 Sodium 133 L Potassium 4.4 Chloride 95 L Carbon Dioxide 27.4 Anion Gap 11 BUN 25 H Creatinine 4.17 H Estimated GFR 10 L POC Glucose 143 H 176 H Random Glucose 110 H Calcium 9.9 Total Bilirubin 0.7 AST 23 ALT 15 Alkaline Phosphatase 535 H Total Creatine Kinase Total Protein 8.6 H Albumin 2.6 L Lipase 85 01/13/18 01/13/18 03:38 07:14 Sodium Potassium Chloride Carbon Dioxide Anion Gap BUN Creatinine Estimated GFR POC Glucose 199 H Random Glucose Calcium Total Bilirubin AST ALT Alkaline Phosphatase Total Creatine Kinase 28 Total Protein Albumin Lipase Imaging: ITS Impressions Femur CT 01/12/18 00:00 CONCLUSION: 1. Soft tissue defect in the anterior upper left thigh and the medial distal left thigh at the level of the knee. 2. Diffuse subcutaneous soft tissue edema. No drainable abscess identified. Physical Exam: GENERAL: Awake and alert, NAD. HEENT: Head is atraumatic. Extraocular movements grossly intact. Pupils reactive to light. No icterus. No conjunctival erythema. Oropharynx mucosa moist. NECK: Supple without adenopathy. LUNGS: Clear to auscultation. HEART: Regular S1, S2, without murmurs, rubs or gallops. ABDOMEN: Bowel sounds present, obese, soft, nontender. EXTREMITIES: R foot - has purplish color on her 5th toe and MTP,, and a black dry ulcer over 5th MTP. There are some reddish color on the distal R foot that looks more ischemic than cellulitis. LLE - has open wound over her upper thigh with granulation tissue and small area of black necrotic tissue at lower aspect. L leg wound with granulation tissue and small amount of slough. SKIN: No diffuse rash. NEUROLOGIC: She is alert and oriented. No gross focal finding. PSYCHIATRIC: The patient is pleasant, calm, and cooperative. Assessment and Plan - Plan Impression Known PVD LLE PVD RLE, with ischemia 5th toe Infected wounds LLE, completing Rx ESRD on HD MWF DM RECOMMENDATIONS: Continue Cubicin, she has had prior VRE in the past Continue meropenem Continue Diflucan Wound care Vascular surgery to evaluate the patient Follow CBC I will order cultures Monitor progress
--- NOTE | 2018-01-13 15:56 | P.PNWCN ---
Wound Care Nurse Consult Description: Wound consult ordered by for wound management. Communicated with: Richa MERCADO, Recommendation: 1. Ensure patient has heel protectors on when in bed avoiding contact with surface. 2. Cleanse all wounds with normal saline only.Pat dry 3. Apply Calazime cream in thin layer to periwound. 4. Apply Santyl 2mm thick to L groin wound base and left medial surgical wound base. 5. Cover with saline moistened gauze cover with ABD secure with rolled gauze and minimal pieces of tape. 6. Sign and date all dressings.Skin prep Right calcaneus and Right 5th digit BID. Additional information: Patient was seen today by writer technical publications for wound management.Patient known to writer technical publications from multiple previous visits.Patient alert and oriented x4 resting in bed with spouse present at bedside.Dressings removed from left lower extremity without difficulty.Wounds cleansed with normal saline pat dry. Left upper thigh/groin wound measures 11.4cm x15.5cm x1.1cm wound base is 85% moist red granular tissue with 15% black adhered eschar noted from 5-7 O' clock.Wound edges are well defined sloped with wound base.Wound edges noted to be shiv indicating healing process.Moderate serosanguineous exudate noted without odor.Mild erythema noted to periwound. Left lateral thigh has red/light purple blanchable erythema noted.Blanchable and warm to touch no open areas noted. Left medial surgical wound measures 14.8cm x3.9cm x1.6cm .Wound base is 50% moist red tissue and 50% loosely adhered yellow/black slough.1 vascular staple removed with cleaning.Wound edges are well defined and sloped with wound base.Moderate serosanguineous exudate noted with out odor.Periwound intact with mild erythema noted circumferentially. Right calcaneus has a 1.5cm x2.0cm x eschar .Eschar firmly adhered dry intact.no erythema noted to periwound. Right 5th digit purple/black non blanching with black ulcer located on lateral metatarsal.No palpable pedal pulse felt on right. Wounds cleansed with normals rhonda pat dry .Saline moistened gauze applied to left upper thigh and left medial surgical wound, Covered with ABD secured with rolled gauze/4 little pieces of tape.Calazime applied to periwound prior to dressing.Skin prep applied to right heel and right 5th digit. Transport arrived to transport to [facility].wound care to follow up next week on wound progress. Wound/Pressure Injury - Wound Right Foot Wound Assessment: Ongoing Wound Type: Traumatic Wound Is This a Chronic Wound: No Requested from Provider a Wound Care Consult: No (BRIDGETTE Aparicio RN seen 01/13) Wound Bed Appearance: Necrotic Surrounding Tissue Temperature: Cold Left Groin Wound Assessment: Ongoing Wound Type: Traumatic Wound Is This a Chronic Wound: Yes Requested from Provider a Wound Care Consult: No (BRIDGETTE Aparicio RN seen 01/13) Length: 11.4 Width: 15.5 Depth: 1.1 Wound Bed Appearance: Necrotic, Red, Yellow Surrounding Tissue Appearance: Erythema Surrounding Tissue Temperature: Warm Drainage Description: Serosanguinous Drainage Amount: Moderate Drainage Odor: No Odor Dressing Status: Changed Cleansing Solution: Saline Topical: Enzymatic Debridement Ointment Wound Packing Type: Gauze Pads Primary Dressing: Absorbant Pad Tape Type: Paper Wound Dressing Change Date: 01/13/18 Left medial surgical Wound Assessment: Ongoing Wound Type: Traumatic Wound Is This a Chronic Wound: Yes Requested from Provider a Wound Care Consult: No Length: 14.8 Width: 3.9 Depth: 1.6 Wound Bed Appearance: Necrotic, Red, Yellow Surrounding Tissue Appearance: Erythema Surrounding Tissue Temperature: Cool Drainage Description: Serosanguinous Drainage Amount: Minimal Drainage Odor: No Odor Dressing Status: Changed Cleansing Solution: Saline Topical: Enzymatic Debridement Ointment Wound Packing Type: Gauze Pads Primary Dressing: Absorbant Pad Cover Dressing: Gauze Roll/Wrap Tape Type: Paper Wound Dressing Change Date: 01/13/18 Right heel Wound Staging: Unstageable Wound Assessment: Ongoing Wound Type: Pressure Injury Is This a Chronic Wound: Yes Requested from Provider a Wound Care Consult: No Length: 1.5 Width: 2.0 Wound Bed Appearance: Necrotic Wound Bed Appearance: 100% firmly adhered dry black eschar Topical: Cavilon skin prep
--- NOTE | 2018-01-13 16:00 | MB ---
cc: Shant Brothers MD DATE: 01/12/2018 DATE OF CONSULTATION: 01/12/2018 REASON FOR CONSULTATION: Progressive ischemic necrosis, right foot. Delayed healing, left femoral popliteal bypass wounds. HISTORY: This 72-year-old hypertensive, type 2, diabetic female with stage V chronic kidney disease requiring maintenance hemodialysis, coronary artery disease status post CABG has progressive ischemic necrosis involving the right foot. Prior angiographic studies have demonstrated severe, diffuse right SFA, popliteal occlusive disease in conjunction with diabetic type right mid distal tibial arterial occlusions. Her disease pattern is not likely amenable to either surgical or endovascular revascularization. We have been managing her expectantly with oral analgesics. Over the past 2 weeks, her right forefoot and heel necrosis has progressed in her pain has become unbearable. On 08/30/2017, she underwent left below-knee prosthetic femoral popliteal bypass for progressive ischemic necrosis involving the left great and fifth toes. Following reperfusion, necrotic changes within the left great and fifth toes spontaneously lysed/healed. However, she developed necrosis within the femoral and popliteal exposure of wounds. With debridement and ongoing wound care, both wounds have granulated, but remain incompletely healed. Repeated imaging has disclosed no suggestion of infection of the underlying prosthetic graft -- specifically the graft remains patent without any signs of perigraft fluid collections. PAST MEDICAL HISTORY: 1. Hypertension. 2. Type 2 diabetes mellitus. 3. Chronic kidney disease secondary to diabetic nephropathy requiring maintenance hemodialysis. 4. Coronary artery disease, status post CABG 2002. 5. Hypothyroidism. PREVIOUS SURGERY: Appendectomy 48, cholecystectomy 73, 3-vessel CABG in 2002. Diabetic retinopathy laser 2005. Right brachiocephalic AV fistula 08/2014. Left femoral at tibial bypass 08/2017. MEDICATIONS AND ALLERGIES: Detailed in the med reconciliation. PHYSICAL EXAMINATION: VITAL SIGNS: BP 140/80. Pulse 86, respirations 16. GENERAL: A well-developed, obese and chronically debilitated-appearing female with depressed, somewhat somnolent/narcotized affect. CARDIOVASCULAR: Bilateral carotid bifurcation bruits are noted. No neck vein distention or HJR. Well-healed sternotomy. Cardiac rhythm is sinus. A 2/6 systolic murmur, left sternal border. LUNGS: Symmetrically expanded with diminished breath sounds at both bases. ABDOMEN: Obese, soft, nontender. EXTREMITIES: The right foot exhibits ischemic necrosis involving the skin of toes 1 through 5 and right calcaneal region with 14 mm superficial necrotic ulceration centered over the right heel. The entire right foot is swollen with erythema extending proximally to the mid calf level. Right femoral pulse is 2+. Popliteal and pedal pulses are nonpalpable. Right foot is cool with diminished capillary refill. On the left side, oval shaped granulating wounds are present. Left groin and vertical granulating wound, left popliteal exposure areas. Both wounds are quite clean and granulating well. No drainage. No fluctuance. An area approximately 24 x 20 cm diameter is centered over the left proximal lateral thigh, which is indurated, vaguely ecchymotic and slightly erythematous suggesting soft tissue necrosis in this area as well. There is no crepitus or drainage. NEUROLOGIC: Nonfocal. I reviewed this lady's prior aortofemoral CT angiographic imaging studies with interventional radiologist, Perez Nugent MD, and Satish Sanchez MD. As detailed above, Ms. Jarrell has advanced right infrainguinal arterial occlusive disease causing the ischemic changes within her right foot. The occlusive changes do not appear reasonably amenable to endovascular revascularization with any hope of long-term durability. I am going to also ask Mukesh Rodrigues MD, to review the films and give us an opinion as well. If she cannot be reperfused, she will require major amputation. I am also concerned about the area of induration, ecchymosis left lateral thigh. This area has been developing for several weeks, and I do not feel represents an acute necrotizing soft tissue infection. In fact, prior CT scans has documented inflammation within the area of induration, left lateral thigh. We will re-image this area to ensure that no acute changes suggesting evolving necrotizing infection exist. Finally, her left groin and popliteal wounds will require ongoing conservative wound care. We will ask wound care team to assess. I am also going to ask Dr. Corrales to reassess her current antibiotic management and adjust as needed. Thank you for allowing me to participate in this lady's care. Shant Brtohers MD JTS/bry , 03:23 PM , 03:39 PM
[2018-01-13] MEDS: Collagenase Oint 30 GM Tube TOPICAL SCH (16:12)
[2018-01-13] MEDS: Psyllium Husk SF 3.4 GM in 5.8 GM Packet PO SCH (17:35)
[2018-01-13] MEDS: Gelatin 12 MM/7 MM Topical Foam TOPICAL PRN (18:00)
[2018-01-13] MEDS: Ezetimibe 10 MG Tablet PO SCH (20:17)
[2018-01-14] MEDS: Levothyroxine 125 MCG Tablet PO SCH (06:14)
[2018-01-14 07:32] LABS: Baso # (Auto) 0.2 th/mm3 (0.0-0.2); Baso % (Auto) 1.3 % (0.0-2.0); Eos # (Auto) 0.1 th/mm3 (0.0-0.4); Eos % (Auto) 0.8 % (0.0-4.0); Hematocrit 31.8 % (35.0-46.0); Lymph # (Auto) 1.5 th/mm3 (1.0-4.8); Lymph % (Auto) 11.7 % (9.0-44.0); Mean Corpuscular HGB Conc 31.6 % (32.0-36.0); Mean Corpuscular Hemoglobin 29.5 pg (27.0-34.0); Mean Corpuscular Volume 93.4 fL (80.0-100.0); Mean Platelet Volume 7.8 fL (7.0-11.0); Mono # (Auto) 1.6 th/mm3 (0.0-0.9); Mono % (Auto) 12.4 % (0.0-8.0); Neut # (Auto) 9.3 th/mm3 (1.8-7.7); Neut % (Auto) 73.8 % (16.0-70.0); Platelet Count 364 th/mm3 (150-450); White Blood Count 12.6 th/mm3 (4.0-11.0)
[2018-01-14 08:14] LABS: Albumin 2.2 g/dL (3.4-5.0); Calcium 9.9 mg/dL (8.5-10.1); Carbon Dioxide 28.7 meq/L (21.0-32.0); Phosphorus 5.1 mg/dL (2.5-4.9); Potassium 4.8 meq/L (3.5-5.1)
[2018-01-14 08:30] LABS: % Iron Saturation 22.1 % (20-50)
[2018-01-14] MEDS: Collagenase Oint 30 GM Tube TOPICAL SCH (10:04)
[2018-01-14] MEDS: Carvedilol 6.25 MG Tablet PO SCH ×2 (10:04→22:03)
[2018-01-14] MEDS: Insulin NovoLOG Aspart Correctional Sugar Inj SQ SCH ×4 (10:05→22:08)
[2018-01-14] MEDS: Heparin - SQ 10,000 UNITS/ML Vial SQ SCH ×2 (10:05→22:03)
[2018-01-14] MEDS: Gabapentin 100 MG Capsule PO SCH ×2 (10:05→22:02)
[2018-01-14] MEDS: Famotidine 20 MG Tablet PO SCH ×2 (10:05→22:02)
--- NOTE | 2018-01-14 10:48 | P.PNIM ---
Subjective Interval history: Follow-up for right lower extremity cellulitis Right lower extremity pain at baseline. Awaiting for vascular surgery input. Afebrile. Right toe cyanosis stable. Physical Exam Vital signs: Vital Signs 01/13/18 11:19 01/13/18 12:00 01/13/18 20:00 Temperature 97.3 F L 98.5 F Pulse Rate 64 63 Respiratory Rate 17 16 Blood Pressure 100/45 L 96/46 L Pulse Oximetry 97 97 93 L 01/14/18 00:00 01/14/18 04:00 01/14/18 08:00 Temperature 98.3 F 97.1 F L 98.6 F Pulse Rate 70 67 66 Respiratory Rate 16 18 18 Blood Pressure 91/41 L 106/49 L 125/52 L Pulse Oximetry 96 95 95 Intake & Output 01/13/18 01/14/18 01/14/18 18:59 06:59 18:59 Intake Total 800 / 800 1160 / 1160 Balance 800 / 800 1160 / 1160 Weight 100.1 kg Intake: IV 200 / 200 Diflucan 200 mg Premix Bag 100 100 / 100 ML @ 100 mls/hr IV.SIG Q24H RICARDO Rx#:[id number] Merrem Inj 2,000 MG In NS Inj 100 / 100 100 ML @ 200 mls/hr IV.SIG Q24H RICARDO Rx#:[id number] Oral 800 / 800 960 / 960 Other: # Voids 0 Date of Last Bowel Movement 01/09/18 Narrative: GENERAL: Obese female, lying in bed, no distress. CARDIOVASCULAR: Regular rate and rhythm. No murmurs. RESPIRATORY: No accessory muscle use. Clear to auscultation. Breath sounds equal bilaterally. GASTROINTESTINAL: Abdomen soft, non-tender, nondistended. MUSCULOSKELETAL:ight foot with purple discoloration of 5th toe. Erythema around the area. Also has about a palm sized area of induration and ecchymosis over the lateral proximal left thigh that is very tender to touch. Has a anterior wound on the left proximal thigh that has eschar formation on the inferior margin, also has about a 6 inch wound on her left medial thigh. NEUROLOGICAL: Awake and alert. No obvious cranial nerve deficits. Mildly confused, says this happens when she takes narcotics. Results - Labs CBC & Chem 7: 01/14/18 06:40 01/14/18 06:40 Laboratory Results - last 24 hr 01/13/18 01/13/18 01/13/18 11:21 18:43 19:52 WBC RBC Hgb Hct MCV MCH MCHC RDW Plt Count MPV Neut % (Auto) Lymph % (Auto) [place] % (Auto) Eos % (Auto) Baso % (Auto) Neut # (Auto) Lymph # (Auto) [place] # (Auto) Eos # (Auto) Baso # (Auto) WBC Differential Differential Comment Sodium Potassium Chloride Carbon Dioxide Anion Gap BUN Creatinine Estimated GFR POC Glucose 260 H 172 H 183 H Random Glucose Calcium Phosphorus Iron TIBC % Saturation Ferritin Albumin Vitamin D 25-Hydroxy PTH Intact 01/14/18 01/14/18 01/14/18 06:40 06:40 06:40 WBC 12.6 H RBC 3.40 L Hgb 10.0 L Hct 31.8 L MCV 93.4 MCH 29.5 MCHC 31.6 L RDW 20.0 H Plt Count 364 MPV 7.8 Neut % (Auto) 73.8 H Lymph % (Auto) 11.7 [place] % (Auto) 12.4 H Eos % (Auto) 0.8 Baso % (Auto) 1.3 Neut # (Auto) 9.3 H Lymph # (Auto) 1.5 [place] # (Auto) 1.6 H Eos # (Auto) 0.1 Baso # (Auto) 0.2 WBC Differential . Differential Comment Auto diff final Sodium 135 L Potassium 4.8 Chloride 96 L Carbon Dioxide 28.7 Anion Gap 10 BUN 22 H Creatinine 3.95 H Estimated GFR 11 L POC Glucose Random Glucose 153 H Calcium 9.9 Phosphorus 5.1 H Iron 43 L TIBC 195 L % Saturation 22.1 Ferritin 5818 H Albumin 2.2 L Vitamin D 25-Hydroxy 43.6 PTH Intact 274.8 H 01/14/18 08:17 WBC RBC Hgb Hct MCV MCH MCHC RDW Plt Count MPV Neut % (Auto) Lymph % (Auto) [place] % (Auto) Eos % (Auto) Baso % (Auto) Neut # (Auto) Lymph # (Auto) [place] # (Auto) Eos # (Auto) Baso # (Auto) WBC Differential Differential Comment Sodium Potassium Chloride Carbon Dioxide Anion Gap BUN Creatinine Estimated GFR POC Glucose 185 H Random Glucose Calcium Phosphorus Iron TIBC % Saturation Ferritin Albumin Vitamin D 25-Hydroxy PTH Intact Microbiology 01/13/18 12:20 Blood - Peripheral Anaerobic Blood Culture - Final QNS - See aerobic report. 01/13/18 12:25 Blood - Peripheral Anaerobic Blood Culture - Final QNS - See aerobic report. Assessment and Plan - Plan 72 y/o WF admitted for intract BL LE pain. Right lower extremity cellulitis with possible acute on chronic ischemia -Infectious disease following, continue Cubicin, prior VRE in the past, continue meropenem and Diflucan per infectious disease. -Vasc surg consult pending, has history of fifth toe ischemia with PAD -continue home fentanyl and gabapentin and oxycodone. -We will defer antiplatelet therapy (home medicine being Plavix) to vascular surgery in case procedure is warranted. PAD -defer Plavix therapy to vasc surgery. -continue home statin; will check CPK once weekly since pt is started on dapto given risk of myositis. Diabetes type I Patient wants to use her home insulin pump. -pt will use insulin pump. Sliding scale as needed. Nephrology End-stage renal disease, dialysis Tuesday. -dialysis per nephrology. Constipation Chronic. -Continue Metamucil per pt request. Chronic pain The pt is on hospice as an outpt. -case management consult. -pain control. No mechanical DVT prophylaxis due to lower extremity conditions, no pharmacological DVT prophylaxis in light of possible surgery Discussed with .
--- NOTE | 2018-01-14 14:30 | P.PNNP ---
Subjective Interval history: History of Present Illness: The patient is a 72 yo [place] female who is known to our services for ESRD on HD. She has had multiple admissions over the past 6 months regarding revascularization of LLE complicated by non-healing of the wound, wound dehiscence, and recurrent cellulitis leading to need for prolonged IV abx and wound VAC. She also has a known non-healing ulceration on her R heel and was told recently that she has severe PAD in her right leg and will likely need amputation soon. She presents with progressive pain in her right foot with darkening toes and redness extending to ríos with inability to ambulate 2/2 to severe pain. There is also a new area of erythema on left lateral thigh that is concerning for new cellulitis. ID has been to see the patient and started on new abx regimen. Pending vascular consultation at this point in time. Should be noted that she is a [facility] patient with dialysis just started . She remains full code with aggressive care. We have been consulted for dialysis management. Last outpatient HD 01/14/2018: Patient lying comfortably in bed. No respiratory distress. Physical Exam Vital signs: Vital Signs 01/13/18 20:00 01/14/18 00:00 01/14/18 04:00 Temperature 98.5 F 98.3 F 97.1 F L Pulse Rate 63 70 67 Respiratory Rate 16 16 18 Blood Pressure 96/46 L 91/41 L 106/49 L Pulse Oximetry 93 L 96 95 01/14/18 08:00 01/14/18 10:01 01/14/18 12:00 Temperature 98.6 F 98.3 F Pulse Rate 66 67 66 Respiratory Rate 18 18 Blood Pressure 125/52 L 136/60 Pulse Oximetry 95 96 Intake & Output 01/13/18 01/14/18 01/14/18 18:59 06:59 18:59 Intake Total 800 / 800 1160 / 1160 Balance 800 / 800 1160 / 1160 Weight 100.1 kg Intake: IV 200 / 200 Diflucan 200 mg Premix Bag 100 100 / 100 ML @ 100 mls/hr IV.SIG Q24H RICARDO Rx#:[id number] Merrem Inj 2,000 MG In NS Inj 100 / 100 100 ML @ 200 mls/hr IV.SIG Q24H RICARDO Rx#:[id number] Oral 800 / 800 960 / 960 Other: # Voids 0 Date of Last Bowel Movement 01/09/18 01/09/18 Narrative: GENERAL: lying in bed, no distress. CARDIOVASCULAR: Regular rate and rhythm. No murmurs. RESPIRATORY: No accessory muscle use. Clear to auscultation. Breath sounds equal bilaterally. GASTROINTESTINAL: Abdomen soft, non-tender, nondistended. MUSCULOSKELETAL:ight foot with purple discoloration of 5th toe. Erythema around the area. Also has about a palm sized area of induration and ecchymosis over the lateral proximal left thigh with a anterior wound on the left proximal thigh that has eschar formation on the inferior margin, also has about a 6 inch wound on her left medial thigh. NEUROLOGICAL: Awake and alert responding to questions appropriately. Assessment and Plan - Assessment (1) ESRD (end stage renal disease) on dialysis Code(s): N18.6 - End stage renal disease; Z99.2 - Dependence on renal dialysis Status: Acute Plan: HD today with tentative MWF schedule as per outpatient. Epogen with HD. Check Phos and iPTH levels. Medications should be adjusted for the patient's ESRD. Avoid gadolinium. Patient's overall condition has been declining over the last several weeks. (2) Peripheral vascular disease of lower extremity with ulceration Code(s): I73.9 - Peripheral vascular disease, unspecified; L97.909 - Non- pressure chronic ulcer of unspecified part of unspecified lower leg with unspecified severity Status: Acute Plan: Awaiting second opinion from vascular surgery. ID on case and abx have been adjusted. Will likely require amputation of RLE. Pt aware. (3) Cellulitis Code(s): L03.90 - Cellulitis, unspecified Status: Acute Qualifiers: Site of cellulitis: extremity Site of cellulitis of extremity: lower extremity Laterality: left Qualified Code(s): L03.116 - Cellulitis of left lower limb Plan: Abx per ID (4) DM (diabetes mellitus) Code(s): E11.9 - Type 2 diabetes mellitus without complications Status: Acute Plan: Mgmt per primary
[2018-01-14] MEDS: DAPTOmycin Inj 600 MG in Sodium Chlor 0.9% Inj 100 ML IV.SIG SCH (16:42)
[2018-01-14] MEDS: Psyllium Husk SF 3.4 GM in 5.8 GM Packet PO SCH (16:42)
[2018-01-14] MEDS: Ezetimibe 10 MG Tablet PO SCH (17:17)
[2018-01-15] MEDS: Levothyroxine 125 MCG Tablet PO SCH (06:16)
[2018-01-15] MEDS: Famotidine 20 MG Tablet PO SCH ×2 (09:30→22:02)
[2018-01-15] MEDS: Carvedilol 6.25 MG Tablet PO SCH ×2 (09:31→22:02)
[2018-01-15] MEDS: Gabapentin 100 MG Capsule PO SCH ×2 (09:31→22:02)
[2018-01-15] MEDS: Heparin - SQ 10,000 UNITS/ML Vial SQ SCH ×2 (09:32→22:01)
[2018-01-15] MEDS: Insulin NovoLOG Aspart Correctional Sugar Inj SQ SCH ×4 (09:32→22:11)
[2018-01-15] MEDS: Collagenase Oint 30 GM Tube TOPICAL SCH (09:38)
--- NOTE | 2018-01-15 09:55 | P.PNIM ---
Subjective Interval history: Follow-up for lower extremity cellulitis Pain is manageable, patient gets very sleepy but easily arousable, does not want to increase her pain medications because of this. Afebrile. Blood glucose elevated. Physical Exam Vital signs: Vital Signs 01/14/18 10:01 01/14/18 12:00 01/14/18 16:00 Temperature 98.3 F 98.1 F Pulse Rate 67 66 64 Respiratory Rate 18 19 Blood Pressure 136/60 96/45 L Pulse Oximetry 96 97 01/14/18 20:00 01/14/18 23:54 01/15/18 04:00 Temperature 98.2 F 98.7 F 98.7 F Pulse Rate 62 58 L 57 L Respiratory Rate 18 18 Blood Pressure 116/51 L 94/54 L 103/49 L Pulse Oximetry 98 95 94 L Intake & Output 01/14/18 01/15/18 01/15/18 18:59 06:59 18:59 Intake Total 400 / 400 300 / 300 Output Total 0 / 0 Balance 400 / 400 300 / 300 Weight 101.9 kg Intake: IV 300 / 300 Cubicin Inj 600 MG In NS Inj 100 / 100 100 ML @ 200 mls/hr IV.SIG Q48H RICARDO Rx#:[id number] Diflucan 200 mg Premix Bag 100 100 / 100 ML @ 100 mls/hr IV.SIG Q24H RICARDO Rx#:[id number] Merrem Inj 2,000 MG In NS Inj 100 / 100 100 ML @ 200 mls/hr IV.SIG Q24H RICARDO Rx#:[id number] Oral 400 / 400 Output: Urine 0 / 0 Other: # Voids 0 Date of Last Bowel Movement 01/09/18 01/14/18 # Bowel Movements 0 Narrative: GENERAL: Nondistressed. CARDIOVASCULAR: Regular rate and rhythm. No murmurs. RESPIRATORY: No accessory muscle use. Clear to auscultation. Breath sounds equal bilaterally. GASTROINTESTINAL: Abdomen soft, non-tender, nondistended. MUSCULOSKELETAL:Right foot with purple discoloration of 5th toe. Erythema around the area especially on the dorsal aspect. Left medial thigh dressings in place. NEUROLOGICAL: Awake and alert and oriented 3, no focal deficits responding to questions appropriately. Results - Labs CBC & Chem 7: 01/14/18 06:40 01/14/18 06:40 Laboratory Results - last 24 hr 01/14/18 01/14/18 01/14/18 11:44 16:42 22:08 POC Glucose 246 H 200 H 172 H 01/15/18 07:56 POC Glucose 208 H Microbiology 01/13/18 12:25 Blood - Peripheral Aerobic Blood Culture - Preliminary No growth in 1 day 01/13/18 12:25 Blood - Peripheral Anaerobic Blood Culture - Final QNS - See aerobic report. 01/13/18 12:20 Blood - Peripheral Aerobic Blood Culture - Preliminary No growth in 1 day 01/13/18 12:20 Blood - Peripheral Anaerobic Blood Culture - Final QNS - See aerobic report. Assessment and Plan - Plan 72 y/o WF admitted for intract BL LE pain. Right lower extremity cellulitis, left groin and left popliteal wounds, with possible acute on chronic ischemia from PAD -Infectious disease following, continue Cubicin, prior VRE in the past, continue meropenem and Diflucan per infectious disease. -Vascular surgery Dr. 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 Per surgery, does not appear to be amenable to endovascular revascularization with any hope of long-term durability. For second opinion from Dr. Rodrigues. If she cannot be profuse, she will need major amputation. -Continue wound care left groin popliteal once. CT scan of the left thigh showed tissue defect in the left thigh and medial distal left thigh at the level of the knee. Diffuse subcutaneous edema. No abscess. Blood culture remains negative. -continue home fentanyl and gabapentin and oxycodone. -We will defer antiplatelet therapy (home medicine being Plavix) to vascular surgery in case procedure is warranted. PAD -defer Plavix therapy to vasc surgery. -continue home statin; will check CPK once weekly since pt is started on dapto given risk of myositis. Hypertension-controlled, Coreg, Diabetes type I Patient wants to use her home insulin pump. -pt will use insulin pump. Sliding scale as needed. Nephrology End-stage renal disease, dialysis Tuesday. -dialysis per nephrology. Constipation Chronic. -Continue Metamucil per pt request. Chronic pain The pt is on hospice as an outpt. -pain control. No mechanical DVT prophylaxis due to lower extremity conditions, heparin for DVT prophylaxis. Discussed with .
--- NOTE | 2018-01-15 10:45 | P.CONVS ---
History of Present Illness Service: vascular surgery Consult date: 01/15/18 Requesting Physician: Shant Brothers Reason for Consult: R LE ischemia Primary Care Provider: Garret Samaniego MD Chief Complaint: Worsening RLE pain History of Present Illness: 72 yo female with PAD and ESRD s/p L arterial reconstruction with Dr. Brothers and post-operative L groin wound that is being managed by him and wound care team. Asked to eval for R LE ischemia. Pt notes her R foot hurts all the time. She tried to walk yesterday but was unable to put weight on it. 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 (Acute) - Surgical History Surgical History: Surgical History (Last Reviewed 01/15/18 @ 10:42 by Mukesh Rodrigues MD) History of cholecystectomy (Acute) History of appendectomy (Acute) H/O heart bypass surgery (Acute) - Family History Family History: Family History (Last Reviewed 01/13/18 @ 09:42 by ANTHONY Recinos) Other Cancer Congestive heart failure - Tobacco History Second Hand Smoke Exposure: No Tobacco Use In Past 30 Days: No Smoking Status: Former smoker Tobacco Type: Cigarettes - Alcohol History How Often Do You Have a Drink Containing Alcohol: Never - Substance Use History Substance History: No History of Abuse - Travel History Recent Travel in the [place] Within the Last 8 Weeks: No Recent Travel Out of the Country Within the Last 8 Weeks: No - Immunization History Tetanus Immunization: Unsure Hx Influenza Vaccine This Season: Unable to Assess Medications and Allergies Active Medications: Active Medications Acetaminophen (Tylenol) 650 mg PO UNSCH PRN PRN Reason: SEE LABEL COMMENTS Atorvastatin Calcium (Lipitor) 40 mg PO QPM ON LICENSE OF [facility] Last Admin: 01/14/18 17:11 Dose: 40 mg Carvedilol (Coreg) 6.25 mg PO BID ON LICENSE OF [facility] Last Admin: 01/15/18 09:31 Dose: 6.25 mg Cinacalcet (Sensipar) 30 mg PO DAILY ON LICENSE OF [facility] Last Admin: 01/15/18 09:31 Dose: 30 mg Clonidine HCl (Catapres) 0.1 mg PO UNSCH PRN PRN Reason: SEE LABEL COMMENTS Collagenase (Santyl Oint) 1 applicatio TOPICAL DAILY ON LICENSE OF [facility] Last Admin: 01/15/18 09:38 Dose: 1 applicatio Dextrose (D50w Vial) 50 ml IV.PUSH UNSCH PRN PRN Reason: PER HYPOGLYCEMIA PROTOCOL Diphenhydramine HCl (Benadryl) 25 mg PO UNSCH PRN PRN Reason: SEE LABEL COMMENTS Ezetimibe (Zetia) 10 mg PO QPM ON LICENSE OF [facility] Last Admin: 01/14/18 17:17 Dose: 10 mg Epoetin Dio (Epogen Inj) 10,000 unit IV.PUSH UNSCH PRN PRN Reason: SEE LABEL COMMENTS Last Admin: 01/13/18 18:00 Dose: 10,000 unit Famotidine (Pepcid) 10 mg PO BID ON LICENSE OF [facility] Last Admin: 01/15/18 09:30 Dose: 10 mg Fentanyl (Duragesic 25 Mcg Patch.72hr) 1 patch T-DERMAL Q3D ON LICENSE OF [facility] Last Admin: 01/12/18 17:50 Dose: 1 patch Gabapentin (Neurontin) 100 mg PO BID ON LICENSE OF [facility] Last Admin: 01/15/18 09:31 Dose: 100 mg Gelatin (Gelfoam 12 Mm/7 Mm Topical) 1 foam TOPICAL PRN PRN PRN Reason: help stop bleeding from site Last Admin: 01/13/18 18:00 Dose: 1 foam Gentamicin Sulfate (Gentamicin Inj) 20 mg OTHER WITH DIALYSIS PRN PRN Reason: Dwell Gentamycin Lock Glucagon (Glucagon Inj) 1 mg OTHER PRN PRN PRN Reason: for Hypoglycemia Protocol Heparin Sodium (Porcine) (Heparin Inj) 5,000 units SQ Q12H ON LICENSE OF [facility] Last Admin: 01/15/18 09:32 Dose: 5,000 units Heparin Sodium (Porcine) (Heparin Inj) 1,000 units OTHER WITH DIALYSIS PRN PRN Reason: Dwell Heparin to Fill Catheter Heparin Sodium (Porcine) (Heparin Inj) 8,000 units OTHER WITH DIALYSIS PRN PRN Reason: for machine prime Daptomycin 600 mg/ Sodium (Chloride) 100 mls @ 200 mls/hr IV.SIG Q48H ON LICENSE OF [facility] Last Infusion: 01/14/18 19:19 Dose: Infused Meropenem 2,000 mg/ Sodium (Chloride) 100 mls @ 200 mls/hr IV.SIG Q24H ON LICENSE OF [facility] Last Infusion: 01/14/18 19:19 Dose: Infused Fluconazole (Diflucan 200 Mg Premix Bag) 100 mls @ 100 mls/hr IV.SIG Q24H ON LICENSE OF [facility] Last Infusion: 01/15/18 00:40 Dose: Infused Albumin Human (Flexbumin 25% Inj) 100 mls @ 60 mls/hr IV.SIG WITH DIALYSIS PRN PRN Reason: hypotension / volume replace Sodium Chloride (Ns Inj) 1,000 mls @ 0 mls/hr OTHER .Q0M PRN PRN Reason: for prime and rinse back Sodium Chloride (Ns Inj) 1,000 mls @ 200 mls/hr OTHER .Q5H PRN PRN Reason: for dialyzer flush PRN Sodium Chloride (Ns Inj) 1,000 mls @ 0 mls/hr IV.CONT .Q0M PRN PRN Reason: hypotension / volume replace Insulin Aspart (Novolog Insulin Correctional Sugar Inj) 0 unit SQ ACHS ON LICENSE OF [facility]; Protocol Last Admin: 01/15/18 09:32 Dose: 4 unit Levothyroxine Sodium (Synthroid) 125 mcg PO DAILY@0600 ON LICENSE OF [facility] Last Admin: 01/15/18 06:16 Dose: 125 mcg Mannitol (Mannitol Inj) 12.5 gm IV.PUSH UNSCH PRN PRN Reason: hypotension / volume replace Nitroglycerin (Nitrostat Sl) 0.4 mg SL Q5M PRN PRN Reason: CHEST PAIN Oxycodone HCl (Roxicodone) 10 mg PO Q8H PRN PRN Reason: Acute Pain Last Admin: 01/14/18 12:39 Dose: 10 mg Patch Removal (Remove Old Patch) 1 each T-DERMAL Q3D ON LICENSE OF [facility] Psyllium Hydrophilic Mucilloid (Metamucil Fiber Sf Pkt) 1 pack PO DAILY@1700 ON LICENSE OF [facility] Last Admin: 01/14/18 16:42 Dose: 1 pack Sevelamer Carbonate (Renvela) 800 mg PO QID ON LICENSE OF [facility] Last Admin: 01/15/18 09:31 Dose: 800 mg Sodium Chloride (Ns Flush) 2 ml IV.FLUSH BID ON LICENSE OF [facility] Last Admin: 01/15/18 09:38 Dose: 2 ml Sodium Chloride (Ns Flush) 2 ml IV.FLUSH PRN PRN PRN Reason: FLUSH AFTER USING IV ACCESS Sodium Chloride (Ns Flush) 5 ml IV.FLUSH PRN PRN PRN Reason: flush each lumen during HD Allergies Allergy/AdvReac Type Severity Reaction Status Date / Time amlodipine Allergy Severe Edema, Verified 12/22/17 22:56 Generalized adhesive tape Allergy Unknown Generalized Verified 12/22/17 22:56 Itching Home Medications Medication Instructions Recorded Confirmed Type carvedilol [Coreg] 6.25 mg PO BID 12/22/17 01/12/18 History cinacalcet [Sensipar] 30 mg PO DAILY 12/22/17 01/12/18 History clopidogrel [Plavix] 75 mg PO DAILY 12/22/17 01/12/18 History ezetimibe-simvastatin [Vytorin 1 tab PO QPM 12/22/17 01/12/18 History 10-80] gabapentin 100 mg PO BID 12/22/17 01/12/18 History insulin pump-infus. set-meter 12/22/17 12/28/17 History levothyroxine 0.125 mg PO DAILY 12/22/17 01/12/18 History ranitidine HCl [Zantac] 150 mg PO BID 12/22/17 01/12/18 History sevelamer carbonate [Renvela] 800 mg PO QID 12/22/17 01/12/18 History clindamycin HCl 300 mg PO TID 01/12/18 01/12/18 History fentanyl 1 patch TRANSDERMAL Q72H 01/12/18 01/12/18 History oxycodone 10 mg PO Q4H PRN 01/12/18 01/12/18 History Physical Exam Vital Signs / I&O: Vital Signs 01/14/18 12:00 01/14/18 16:00 01/14/18 20:00 Temperature 98.3 F 98.1 F 98.2 F Pulse Rate 66 64 62 Respiratory Rate 18 18 Blood Pressure 136/60 96/45 L 116/51 L Pulse Oximetry 96 97 98 01/14/18 23:54 01/15/18 04:00 01/15/18 08:00 Temperature 98.7 F 98.7 F 97.8 F Pulse Rate 58 L 57 L 58 L Respiratory Rate 18 19 Blood Pressure 94/54 L 103/49 L 116/53 L Pulse Oximetry 95 94 L 91 L Intake & Output 01/14/18 01/15/18 01/15/18 18:59 06:59 18:59 Intake Total 400 / 400 300 / 300 Output Total 0 / 0 Balance 400 / 400 300 / 300 Weight 101.9 kg Intake: IV 300 / 300 Cubicin Inj 600 MG In NS Inj 100 / 100 100 ML @ 200 mls/hr IV.SIG Q48H [facility] Rx#:[id number] Diflucan 200 mg Premix Bag 100 100 / 100 ML @ 100 mls/hr IV.SIG Q24H [facility] Rx#:[id number] Merrem Inj 2,000 MG In NS Inj 100 / 100 100 ML @ 200 mls/hr IV.SIG Q24H [facility] Rx#:[id number] Oral 400 / 400 Output: Urine 0 / 0 Other: # Voids 0 Date of Last Bowel Movement 01/09/18 01/14/18 # Bowel Movements 0 Neuro: alert, slightly somnolent secondary to pain medications HEENT: NC/AT; anicteric; wears glasses Neck: no JVD Heart: reg rate Lungs: nonlabored Vascular: no palpable femoral/popliteal or pedal pulses R LE Extremities: R 5th digit gangrene, forefoot ischemia Laboratory Results - last 24 hr 01/14/18 01/14/18 01/14/18 11:44 16:42 22:08 POC Glucose 246 H 200 H 172 H 01/15/18 07:56 POC Glucose 208 H Microbiology 01/13/18 12:25 Aerobic Blood Culture - Preliminary Blood - Peripheral No growth in 1 day Anaerobic Blood Culture - Final QNS - See aerobic report. 01/13/18 12:20 Aerobic Blood Culture - Preliminary Blood - Peripheral No growth in 1 day Anaerobic Blood Culture - Final QNS - See aerobic report. Assessment and Plan - Assessment (1) Peripheral vascular disease of lower extremity with ulceration Code(s): I73.9 - Peripheral vascular disease, unspecified; L97.909 - Non- pressure chronic ulcer of unspecified part of unspecified lower leg with unspecified severity Status: Acute - Plan She has the unfortunate combination of PAD and ESRD. I don't feel a femoral pulse but may be limited by body habitus. She has had a prolonged recovery from the LEFT leg revascularization. 1. CTA with runoff (on HD) 2. wound care as you are doing 3. PT 4. Will follow Mukesh Rodrigues MD FACS [employer] sales and service officer [facility] - Heart and Vascular Surgery at [place] [phone]
--- NOTE | 2018-01-15 13:59 | P.DIET ---
Nutritional Evaluation Type of nutrition evaluation: initial Nutrition consult regarding: Diet Evaluation ([facility] for Supplement to Oral Intake) Objective - Diagnosis Limb Ischemia, LLE Infection - Objective % IBW: 166 (KME=814#) Body Weight Used for Calculations: IBW (61.4kg) Energy Needs - Lower Range (kCal/kg): 25 Energy Needs - Upper Range (kCal/kg): 30 Lower Limit kCal/kg (kCals): 1,535 Upper Limit kCal/kg (kCals): 1,842 Lower Limit Protein Factor (Grams per Kg): 1.2 Upper Limit Protein Factor (Grams per Kg): 1.5 Lower Protein Needs (Protein): 74 Upper Protein Needs (Protein): 92 Dietitian Reviewed in Medical Record: Current diet, Curent medications, Intake & Output, Labs, Medical history, Wound/DTI Diet Order: Renal, 2g Na Wound Care Note: 01/13 reviewed. Unstageable pressure injury to R heel Objective Comments: Meds: Sensipar, Santyl, Synthroid, Renvela LBM 01/14 Assessment Assessment: Pt admitted for limb ischemia and LLE infection. Pt is on hemodialysis and was on hospice services prior to admission to hospital. She's at 166% of her IBW. Per WOCN note, she has an unstageable pressure injury to her R heel. Current diet is a Renal 2g Na diet. Will provide Nepro supplement BID. Continue current POC. Dietitian following. Recommendations: 1. Diet per MD order. 2. Nepro BID. Dietitian to Monitor: Lab values, Supplement acceptance, Intake & Output, Diet tolerance, Weight change, PO Intake, Wound/skin status, Medical course
--- NOTE | 2018-01-15 15:06 | CT ---
EXAM DATE: 01/15/2018 2:38 PM EDT AGE/SEX: 72 years / Female INDICATIONS: Right foot pain for two days. CLINICAL DATA: This is the patient's initial encounter. Patient reports that signs and symptoms have been present for 2 days and indicates a pain score of 6/10. MEDICAL/SURGICAL HISTORY: Hypertension. femoropopliteal arterial thrombosis Cholecystectomy. Appe ndectomy. insulin pump RADIATION DOSE: 12.35 CTDI (mGy) COMPARISON: [facility] [place] & [place]EL[place] W/O CONTRAST, 11/15/2017. . TECHNIQUE: Volumetric scanning was performed using a multi-row detector CT scanner during bolus infu kash of 97 ml Omnipaque 350 (iohexol) nonionic water-soluble contrast as a single exam dose. The d mikal was post processed with a variety of visualization algorithms including full volume maximum inten sity projection, multi-planar sliding thin slab reformation, curved planar reformation, and surface r endering techniques. Using automated exposure control and adjustment of the mA and/or kV according t o patient size, radiation dose was kept as low as reasonably achievable to obtain optimal diagnostic quality images. DICOM format image data is available electronically for review and comparison. FINDINGS: Angiographic Findings: Abdominal Aorta: Diffuse atherosclerotic calcifications of the abdominal aorta with moderate stenosi s distally at the bifurcation. Renal Arteries: Patent single right renal artery. Calcified left renal artery origin with resultant m ild stenosis. Mesenteric Arteries: Mild stenosis of the celiac origin secondary to calcified plaque. SMA is patent. RUPERT is patent. Right side: Inflow: Moderate focal stenosis of the common iliac origin secondary to concentric calcified plaque. Diffusely calcified common iliac artery with mild diffuse stenosis. Diffusely diseased internal iliac artery. Small caliber but patent external iliac artery. Diffusely calcified common femoral artery wi th mild stenosis. Outflow: Heavily calcified but patent profunda. Diffusely calcified and diffusely diseased SFA with m ultiple tandem moderate to severe stenoses in the mid and severe stenoses in the distal thigh. Diffus sana calcified popliteal artery with severe stenoses in the proximal above-knee popliteal artery and t andem [id number] stenoses throughout. Runoff: Diffusely calcified runoff vessels with occlusion of the posterior tibial artery in the proxi mal calf. Anterior tibial artery also appears occluded in the proximal calf. The peroneal artery is t he predominant runoff vessel with reconstitution of the anterior tibial artery near the distal calf. Left side: Inflow: Prominent circumferential calcified plaque in the proximal common iliac artery with resultant diffuse moderate severe stenosis. Diffusely calcified internal iliac artery. External iliac artery i s small in caliber but patent. Diffuse calcified plaque in the distal common femoral artery with mild to moderate stenosis at the femoral bifurcation. Outflow: Profunda is patent. SFA is occluded. There is a left femoral to above-knee popliteal artery bypass graft in place. There is critical stenosis of the proximal anastomosis. There is circumferenti al mild stenosis of the distal anastomosis. Diffusely calcified below knee popliteal artery with tand em mild stenoses. Runoff: Anterior tibial artery is occluded just beyond the origin. Two-vessel runoff via the peroneal and posterior tibial artery which are diffusely diseased. General Findings: LOWER LUNGS: 10 mm stable nodule in the right lung base. 10 mm calcified nodule in the left lung bas e. Mildly improved trace right pleural effusion. LIVER: Diffusely homogeneous in density without evidence for volume loss. SPLEEN: Homogeneous density without enlargement. PANCREAS: Grossly unremarkable. KIDNEYS: Stable 15 mm cyst in the left mid kidney. Stable (and a fat density lesion in the superior pole the right kidney. Kidneys demonstrate cortical thinning and bilateral cortical scarring but are otherwise stable. No hydronephrosis. ADRENAL GLANDS: Unremarkable. BOWEL/MESENTERY: The bowel loops are grossly unremarkable. The cecum and sigmoid colon have a amanda l configuration. Trace free fluid in the right paracolic gutter. ABDOMINAL WALL: Intact. RETROPERITONEUM: No evidence of adenopathy in the retrocrural, para-aortic, or deep pelvic regions. BLADDER: Contours are smooth. REPRODUCTIVE: No abnormal masses or calcifications seen. INGUINAL: The inguinal region is unremarkable without evidence of adenopathy. BONY STRUCTURES: Degenerative changes of the lower lumbar spine. CONCLUSION: 1. Diffuse atherosclerotic disease with moderate distal aortic stenosis at the bifurcation. 2. Bilateral moderate common iliac artery stenosis, likely overestimated due to degree of calcified plaque. 3. Left femoral to above-knee popliteal artery bypass graft with critical stenosis of the proximal a nastomosis and mild stenosis of the distal anastomosis. 4. Diffuse right SFA disease with tandem moderate stenoses in the proximal thigh and tandem severe s tenoses in the distal thigh. Diffuse right popliteal artery disease. 5. Limited single vessel runoff on the right. The peroneal artery with reconstitution of the anterio r tibial artery in the distal calf. 6. Limited two-vessel runoff on the left. Diffusely diseased posterior tibial and peroneal arteries. 7. Stable 10 mm nodule in the right lung base. Follow-up examination in 3-6 months is again recommen ded to document stability. 8. Stable additional ancillary findings, as above. Electronically signed by: Alvarez Sow MD 01/15/2018 3:05 PM EDT
[2018-01-15] MEDS: Psyllium Husk SF 3.4 GM in 5.8 GM Packet PO SCH (17:03)
[2018-01-15] MEDS: Ezetimibe 10 MG Tablet PO SCH (17:04)
[2018-01-16] MEDS: Levothyroxine 125 MCG Tablet PO SCH (06:45)
--- NOTE | 2018-01-16 07:21 | P.PNVS ---
Subjective Subjective/Hospital Course: Pt with continued R foot pain. No change. CTA reviewed - L LE failing bypass and R significant calcific disease although the opacification of the infrageniculate vessels limited Objective Vital Signs / I&O: Vital Signs 01/15/18 08:00 01/15/18 12:00 01/15/18 16:00 Temperature 97.8 F 98.4 F 98.4 F Pulse Rate 58 L 53 L 56 L Respiratory Rate 19 16 18 Blood Pressure 116/53 L 106/46 L 99/49 L Pulse Oximetry 91 L 95 98 01/15/18 20:00 01/16/18 00:00 01/16/18 04:00 Temperature 98.3 F 98.2 F 98.2 F Pulse Rate 55 L 54 L 52 L Respiratory Rate 17 17 17 Blood Pressure 106/46 L 90/53 L 96/43 L Pulse Oximetry 94 L 96 96 Intake & Output 01/15/18 01/16/18 01/16/18 18:59 06:59 18:59 Intake Total 475 / 475 340 / 340 Output Total 0 / 0 Balance 475 / 475 340 / 340 Intake: IV 100 / 100 Merrem Inj 2,000 MG In NS Inj 100 / 100 100 ML @ 200 mls/hr IV.SIG Q24H [facility] Rx#:[id number] Oral 475 / 475 240 / 240 Output: Urine 0 / 0 Other: Date of Last Bowel Movement 01/14/18 # Bowel Movements 0 Physical Exam: stable R LE tissue loss L groin dressing in tact Laboratory Results - last 24 hr 01/15/18 01/15/18 01/15/18 07:56 12:10 17:01 POC Glucose 208 H 248 H 296 H 01/15/18 22:11 POC Glucose 201 H Microbiology 01/13/18 12:25 Aerobic Blood Culture - Preliminary Blood - Peripheral No growth in 2 days Anaerobic Blood Culture - Final QNS - See aerobic report. 01/13/18 12:20 Aerobic Blood Culture - Preliminary Blood - Peripheral No growth in 2 days Anaerobic Blood Culture - Final QNS - See aerobic report. Impressions Aorta w/Runoff CTA 01/15/18 00:00 CONCLUSION: 1. Diffuse atherosclerotic disease with moderate distal aortic stenosis at the bifurcation. 2. Bilateral moderate common iliac artery stenosis, likely overestimated due to degree of calcified plaque. 3. Left femoral to above-knee popliteal artery bypass graft with critical stenosis of the proximal anastomosis and mild stenosis of the distal anastomosis. 4. Diffuse right SFA disease with tandem moderate stenoses in the proximal thigh and tandem severe stenoses in the distal thigh. Diffuse right popliteal artery disease. 5. Limited single vessel runoff on the right. The peroneal artery with reconstitution of the anterior tibial artery in the distal calf. 6. Limited two-vessel runoff on the left. Diffusely diseased posterior tibial and peroneal arteries. 7. Stable 10 mm nodule in the right lung base. Follow-up examination in 3-6 months is again recommended to document stability. 8. Stable additional ancillary findings, as above. Assessment and Plan - Assessment (1) Peripheral vascular disease of lower extremity with ulceration Code(s): I73.9 - Peripheral vascular disease, unspecified; L97.909 - Non- pressure chronic ulcer of unspecified part of unspecified lower leg with unspecified severity Status: Acute - Plan She has the unfortunate combination of PAD and ESRD. 1. defer to Dr. Brothers re: L LE bypass. Will discuss with him. 2. Tentatively plan for RIGHT leg angiogram on Tue. Please arrange AFTERNOON dialysis and will take to OR in the morning. 3. ABIs pending still 4. wound care as you are doing 5. PT Mukesh Rodrigues MD FACS [employer] food safety technician [facility] - Heart and Vascular Surgery at [facility] [phone]
[2018-01-16 07:44] LABS: Carbon Dioxide 24.2 meq/L (21.0-32.0); Potassium 5.2 meq/L (3.5-5.1)
[2018-01-16] MEDS: Heparin - SQ 10,000 UNITS/ML Vial SQ SCH ×2 (08:05→20:35)
[2018-01-16] MEDS: Insulin NovoLOG Aspart Correctional Sugar Inj SQ SCH ×4 (08:06→20:42)
[2018-01-16] MEDS: Famotidine 20 MG Tablet PO SCH ×2 (08:06→20:34)
[2018-01-16] MEDS: Carvedilol 6.25 MG Tablet PO SCH ×2 (08:07→20:34)
[2018-01-16] MEDS: Gabapentin 100 MG Capsule PO SCH ×2 (08:07→20:34)
[2018-01-16] MEDS: Collagenase Oint 30 GM Tube TOPICAL SCH (08:07)
[2018-01-16] MEDS: Sod Chloride 0.9% Inj 1,000 ML OTHER PRN (11:44)
--- NOTE | 2018-01-16 12:09 | P.PNNP ---
Subjective Interval history: Patient was seen during her dialysis session today. Lethargic secondary to pain meds but responding appropriately to questions. Reviewed vascular surgical notes. Patient is scheduled for a lower extremity angiogram this Tuesday and they are requesting dialysis post angioplasty tentative surgery for . Physical Exam Vital signs: Vital Signs 01/15/18 16:00 01/15/18 20:00 01/16/18 00:00 Temperature 98.4 F 98.3 F 98.2 F Pulse Rate 56 L 55 L 54 L Respiratory Rate 18 17 17 Blood Pressure 99/49 L 106/46 L 90/53 L Pulse Oximetry 98 94 L 96 01/16/18 04:00 01/16/18 08:00 01/16/18 08:03 Temperature 98.2 F 97.5 F L Pulse Rate 52 L 60 51 L Respiratory Rate 17 16 Blood Pressure 96/43 L 119/66 Pulse Oximetry 96 95 Intake & Output 01/15/18 01/16/18 01/16/18 18:59 06:59 18:59 Intake Total 475 / 475 340 / 340 Output Total 0 / 0 Balance 475 / 475 340 / 340 Intake: IV 100 / 100 Merrem Inj 2,000 MG In NS Inj 100 / 100 100 ML @ 200 mls/hr IV.SIG Q24H [facility] Rx#:[id number] Oral 475 / 475 240 / 240 Output: Urine 0 / 0 Other: Date of Last Bowel Movement 01/14/18 # Bowel Movements 0 Narrative: GENERAL: Not in respiratory distress. Currently on hemodialysis. SKIN: Warm and dry. HEAD: Normocephalic. EYES: No scleral icterus. No injection or drainage. NECK: Supple, trachea midline. No JVD or lymphadenopathy. CARDIOVASCULAR: Regular rate and rhythm without murmurs, gallops, or rubs. RESPIRATORY: Breath sounds equal bilaterally. No accessory muscle use. GASTROINTESTINAL: Abdomen soft, non-tender, nondistended. MUSCULOSKELETAL: No cyanosis, trace edema lower extremity. Dressings overlying lesions left lower extremity were not disturbed. Assessment and Plan - Assessment (1) ESRD (end stage renal disease) on dialysis Code(s): N18.6 - End stage renal disease; Z99.2 - Dependence on renal dialysis Status: Acute Plan: HD today with tentative MWF schedule as per outpatient. Epogen with HD. Patient's overall condition has been declining over the last several weeks. Patient still with significant comorbidities and increasing debilitation. Prognosis guarded. Gadolinium is contraindicated. Medication should be adjusted for the patient's end-stage renal disease when indicated. (2) Peripheral vascular disease of lower extremity with ulceration Code(s): I73.9 - Peripheral vascular disease, unspecified; L97.909 - Non- pressure chronic ulcer of unspecified part of unspecified lower leg with unspecified severity Status: Acute Plan: Awaiting second opinion from vascular surgery. ID on case and abx have been adjusted. Will likely require amputation of RLE. Pt aware. (3) Cellulitis Code(s): L03.90 - Cellulitis, unspecified Status: Acute Qualifiers: Site of cellulitis: extremity Site of cellulitis of extremity: lower extremity Laterality: left Qualified Code(s): L03.116 - Cellulitis of left lower limb Plan: Abx per ID (4) DM (diabetes mellitus) Code(s): E11.9 - Type 2 diabetes mellitus without complications Status: Acute Plan: Mgmt per primary
--- NOTE | 2018-01-16 14:27 | P.PNID ---
Subjective Remarks: Patient is post dialysis. Says she has pain in the left lateral thigh. No fever, chills, nausea or vomiting. Afebrile. Due to go for angiogram in couple of days. Ischemia with cellulitis of the right foot. Patient with history of wound infections of the left leg. HISTORY OF PRESENT ILLNESS: This is a 72-year-old white female who is known to me from previous hospitalizations. The patient was last admitted for a dehisced wound at the left tibia from a vascular procedure at the end of November. She had Pseudomonas aeruginosa cultured from the leg and also Klebsiella pneumoniae. She was discharged on cefepime, which she was receiving at hemodialysis center. She developed redness of her right foot and it became progressively worse with increased erythema and purplish discoloration at the right fifth toe and at the base of the fifth toe as well. 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 Allergies/Adverse Reactions: Allergies amlodipine Allergy (Severe, Verified 12/22/17 22:56) Edema, Generalized adhesive tape Allergy (Unknown, Verified 12/22/17 22:56) Generalized Itching Redness Objective Vital Signs 01/15/18 16:00 01/15/18 20:00 01/16/18 00:00 Temperature 98.4 F 98.3 F 98.2 F Pulse Rate 56 L 55 L 54 L Respiratory Rate 18 17 17 Blood Pressure 99/49 L 106/46 L 90/53 L Pulse Oximetry 98 94 L 96 01/16/18 04:00 01/16/18 08:00 01/16/18 08:03 Temperature 98.2 F 97.5 F L Pulse Rate 52 L 60 51 L Respiratory Rate 17 16 Blood Pressure 96/43 L 119/66 Pulse Oximetry 96 95 Intake & Output 01/15/18 01/16/18 01/16/18 18:59 06:59 18:59 Intake Total 475 / 475 340 / 340 Output Total 0 / 0 1999 Balance 475 / 475 340 / 340 -1999 Intake: IV 100 / 100 Merrem Inj 2,000 MG In NS Inj 100 / 100 100 ML @ 200 mls/hr IV.SIG Q24H RICARDO Rx#:[id number] Oral 475 / 475 240 / 240 Output: Urine 0 / 0 Hemodialysis Amount 1999 Other: Date of Last Bowel Movement 01/14/18 # Bowel Movements 0 01/13/18 12:25 Blood - Peripheral Aerobic Blood Culture - Preliminary No growth in 3 days 01/13/18 12:25 Blood - Peripheral Anaerobic Blood Culture - Final QNS - See aerobic report. 01/13/18 12:20 Blood - Peripheral Aerobic Blood Culture - Preliminary No growth in 3 days 01/13/18 12:20 Blood - Peripheral Anaerobic Blood Culture - Final QNS - See aerobic report. Lab - Chemistry Results 01/14/18 01/14/18 01/15/18 16:42 22:08 07:56 Sodium Potassium Chloride Carbon Dioxide Anion Gap BUN Creatinine Estimated GFR POC Glucose 200 H 172 H 208 H Random Glucose Calcium 01/15/18 01/15/18 01/15/18 12:10 17:01 22:11 Sodium Potassium Chloride Carbon Dioxide Anion Gap BUN Creatinine Estimated GFR POC Glucose 248 H 296 H 201 H Random Glucose Calcium 01/16/18 01/16/18 01/16/18 06:16 07:50 11:37 Sodium 129 L Potassium 5.2 H Chloride 91 L Carbon Dioxide 24.2 Anion Gap 14 BUN 48 H Creatinine 6.14 H Estimated GFR 7 L POC Glucose 170 H 127 H Random Glucose 160 H Calcium 10.0 Imaging: ITS Impressions Femur CT 01/12/18 00:00 CONCLUSION: 1. Soft tissue defect in the anterior upper left thigh and the medial distal left thigh at the level of the knee. 2. Diffuse subcutaneous soft tissue edema. No drainable abscess identified. Aorta w/Runoff CTA 01/15/18 00:00 CONCLUSION: 1. Diffuse atherosclerotic disease with moderate distal aortic stenosis at the bifurcation. 2. Bilateral moderate common iliac artery stenosis, likely overestimated due to degree of calcified plaque. 3. Left femoral to above-knee popliteal artery bypass graft with critical stenosis of the proximal anastomosis and mild stenosis of the distal anastomosis. 4. Diffuse right SFA disease with tandem moderate stenoses in the proximal thigh and tandem severe stenoses in the distal thigh. Diffuse right popliteal artery disease. 5. Limited single vessel runoff on the right. The peroneal artery with reconstitution of the anterior tibial artery in the distal calf. 6. Limited two-vessel runoff on the left. Diffusely diseased posterior tibial and peroneal arteries. 7. Stable 10 mm nodule in the right lung base. Follow-up examination in 3-6 months is again recommended to document stability. 8. Stable additional ancillary findings, as above. Physical Exam: GENERAL: No acute distress. Awake, slow verbal responses. HEENT: Head is atraumatic. Extraocular movements grossly intact. Pupils reactive to light. No icterus. No conjunctival erythema. Oropharynx mucosa moist. NECK: Supple without adenopathy. LUNGS: Clear to auscultation. HEART: Regular S1, S2, without murmurs, rubs or gallops. ABDOMEN: Bowel sounds present, obese, soft, nontender. EXTREMITIES: The left inner thigh has chronic open ulceration with good granulation tissue, mild erythema at the edge of the lower aspect. The left lateral thigh has purplish discoloration of the skin. It is warm to touch. The left inner tibial area where the dehisced surgical incision is located is clean with good granulation tissue. The right foot has erythema has receded. Redness now at the dorsum of the foot at the base of the toes and at toe #3 and 4. The right 5th toe and 5th MTP is dry/gangrenous. SKIN: No diffuse rash. NEUROLOGIC: No gross focal finding. PSYCHIATRIC: The patient is pleasant, calm, and cooperative. Assessment and Plan - Plan IMPRESION: 1. Severe peripheral vascular disease, now involving the right foot with gangrene at the right fifth toe and base of the right fifth toe. 2. Open wound of the left inner tibia which grew out Pseudomonas and Klebsiella, sensitive to cefepime in late November. 3. Chronic open wound of the left inner groin/thigh which has had positive bacteria in the past and was treated with antibiotics and was doing well with dressing changes. 4. Left latera thigh ecchymosis/cellulitis. The patient has had prior wounds before these wounds and she had great difficulty healing. 5. Diabetes mellitus. 6. End-stage renal disease on hemodialysis RECOMMENDATIONS: 1. Continue daptomycin. The patient has had VRE in the past in addition to other organisms. 2. Continue Meropenem for gram-negative coverage. 3. Continue Diflucan. She has also had Rosa in the past. 4. Monitor wounds and clinical response.
--- NOTE | 2018-01-16 15:13 | ECHRPT ---
EXAM DATE: 01/16/2018 2:50 PM EDT AGE/SEX: 72 years / Female INDICATIONS: limb ischemia, LLE infection CLINICAL DATA: This is the patient's initial encounter. Patient reports that signs and symptoms have been present for 1 week and indicates a pain score of 1/10. MEDICAL/SURGICAL HISTORY: . Padres, CHF, cancer, wound L groin, ESRD on dialysis, type II diabe tank, HTN, high cholesterol . cholecystectomy, appendectomy, heart bypass surgery, left arterial mick nstruction, fem pop LLE COMPARISON: No prior exams available for comparison. TECHNIQUE: Four-cuff ankle and brachial pressures were obtained. Pulse cuff waveform tracings of the ankles were recorded, and ankle-brachial indices were calculated. PRESSURES (mmHg): Brachial (arm) : RIGHT: no bp/stick, LEFT: 96 Ankle : RIGHT: 32, LEFT: CNO>230 MANJEET : RIGHT: 0.33, LEFT: CNO >230 TBI : RIGHT: 0.00, LEFT: 0.52 FINDINGS: Pulsed-Cuff Waveform: There is blunting of the waveform bilaterally. Other: None. CONCLUSION: Findings of severe disease on the right side with nondiagnostic evaluation on the left. CT angiograph y of the abdominal aorta and lower extremities is recommended for further evaluation if clinically in dicated. Electronically signed by: Keyshawn Soliman MD 01/16/2018 3:12 PM EDT
--- NOTE | 2018-01-16 17:36 | P.PNIM ---
Subjective Interval history: Patient says she is feeling all right. Denies any chest pain or shortness of breath. Physical Exam Vital signs: Vital Signs 01/15/18 20:00 01/16/18 00:00 01/16/18 04:00 Temperature 98.3 F 98.2 F 98.2 F Pulse Rate 55 L 54 L 52 L Respiratory Rate 17 17 17 Blood Pressure 106/46 L 90/53 L 96/43 L Pulse Oximetry 94 L 96 96 01/16/18 08:00 01/16/18 08:03 01/16/18 16:00 Temperature 97.5 F L 97.8 F Pulse Rate 60 51 L 59 L Respiratory Rate 16 15 Blood Pressure 119/66 101/46 L Pulse Oximetry 95 95 Intake & Output 01/15/18 01/16/18 01/16/18 18:59 06:59 18:59 Intake Total 475 / 475 340 / 340 Output Total 0 / 0 1999 Balance 475 / 475 340 / 340 -1999 Intake: IV 100 / 100 Merrem Inj 2,000 MG In NS Inj 100 / 100 100 ML @ 200 mls/hr IV.SIG Q24H RICARDO Rx#:[id number] Oral 475 / 475 240 / 240 Output: Urine 0 / 0 Hemodialysis Amount 1999 Other: Date of Last Bowel Movement 01/14/18 # Bowel Movements 0 Narrative: GENERAL: Patient lying in bed. Appears comfortable. SKIN: Warm and dry. HEAD: Normocephalic. EYES: No scleral icterus. No injection or drainage. NECK: Supple, trachea midline. No JVD. CARDIOVASCULAR: Regular rate and rhythm without murmurs, gallops, or rubs. RESPIRATORY: Breath sounds equal bilaterally. No accessory muscle use. GASTROINTESTINAL: Abdomen soft, non-tender, nondistended. MUSCULOSKELETAL: No cyanosis, or edema. Right lower extremity with right fifth toe gangrene. Dressings not disturbed. BACK: Nontender without obvious deformity. No CVA tenderness. Results - Labs CBC & Chem 7: 01/14/18 06:40 01/16/18 06:16 Laboratory Results - last 24 hr 01/15/18 01/16/18 01/16/18 22:11 06:16 07:50 Sodium 129 L Potassium 5.2 H Chloride 91 L Carbon Dioxide 24.2 Anion Gap 14 BUN 48 H Creatinine 6.14 H Estimated GFR 7 L POC Glucose 201 H 170 H Random Glucose 160 H Calcium 10.0 01/16/18 01/16/18 11:37 17:28 Sodium Potassium Chloride Carbon Dioxide Anion Gap BUN Creatinine Estimated GFR POC Glucose 127 H 257 H Random Glucose Calcium Microbiology 01/13/18 12:25 Blood - Peripheral Aerobic Blood Culture - Preliminary No growth in 3 days 01/13/18 12:25 Blood - Peripheral Anaerobic Blood Culture - Final QNS - See aerobic report. 01/13/18 12:20 Blood - Peripheral Aerobic Blood Culture - Preliminary No growth in 3 days 01/13/18 12:20 Blood - Peripheral Anaerobic Blood Culture - Final QNS - See aerobic report. - Imaging Impressions Extremity Arterial Study 01/15/18 00:00 CONCLUSION: Findings of severe disease on the right side with nondiagnostic evaluation on the left. CT angiography of the abdominal aorta and lower extremities is recommended for further evaluation if clinically indicated. Assessment and Plan - Plan 72 y/o WF admitted for intract BL LE pain. //Right lower extremity cellulitis, left groin and left popliteal wounds, with possible acute on chronic ischemia from PAD -Infectious disease following, continue Cubicin, prior VRE in the past, continue meropenem and Diflucan per infectious disease. -Vascular surgery Dr. 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 Per surgery, does not appear to be amenable to endovascular revascularization with any hope of long-term durability. For second opinion from Dr. Rodrigues. If she cannot be profuse, she will need major amputation. -Continue wound care left groin popliteal once. CT scan of the left thigh showed tissue defect in the left thigh and medial distal left thigh at the level of the knee. Diffuse subcutaneous edema. No abscess. Blood culture remains negative. -continue home fentanyl and gabapentin and oxycodone. -We will defer antiplatelet therapy (home medicine being Plavix) to vascular surgery in case procedure is warranted. = Continue antibiotics as per ID. Vascular surgery following. Plan for intervention on Tuesday. //PAD -defer Plavix therapy to vasc surgery. -continue home statin; will check CPK once weekly since pt is started on dapto given risk of myositis. = Vascular surgery procedure on Tuesday. //Hypertension-controlled, Coreg, //Diabetes type I Patient wants to use her home insulin pump. -pt will use insulin pump. Sliding scale as needed. //Nephrology End-stage renal disease, dialysis Tuesday. -dialysis per nephrology. //Constipation Chronic. -Continue Metamucil per pt request. //Chronic pain The pt is on hospice as an outpt. -pain control. No mechanical DVT prophylaxis due to lower extremity conditions, heparin for DVT prophylaxis. Discharge Planning: When cleared by ID, vascular surgery.
[2018-01-16] MEDS: DAPTOmycin Inj 600 MG in Sodium Chlor 0.9% Inj 100 ML IV.SIG SCH (18:48)
[2018-01-16] MEDS: Psyllium Husk SF 3.4 GM in 5.8 GM Packet PO SCH (18:51)
[2018-01-16] MEDS: Ezetimibe 10 MG Tablet PO SCH (18:53)
--- NOTE | 2018-01-16 20:11 | CT ---
EXAM DATE: 01/16/2018 8:04 PM EDT AGE/SEX: 72 years / Female INDICATIONS: Altered mental status. CLINICAL DATA: This is the patient's initial encounter. Patient reports that signs and symptoms have been present for 1 day and indicates a pain score of Nonresponsive. MEDICAL/SURGICAL HISTORY: Hypertension. CABG. Appendectomy. Cholecystectomy. RADIATION DOSE: 39.80 CTDI (mGy) COMPARISON: [facility] [place], CT BRAIN W/O CONTRAST, 07/21/2017. . TECHNIQUE: CT of the head without contrast. Using automated exposure control and adjustment of the mA and/or kV according to patient size, radiation dose was kept as low as reasonably achievable to ob tain optimal diagnostic quality images. DICOM format image data is available electronically for revi ew and comparison. FINDINGS: Cerebrum: The ventricles are normal for age. No evidence of midline shift, mass lesion, hemorrhage or acute infarction. No extraaxial fluid collections are seen. Posterior Fossa: The cerebellum and brainstem are intact. The 4th ventricle is midline. The cerebe llopontine angle is unremarkable. Extracranial: The visualized portion of the orbits is intact. Skull: The calvaria is intact. No evidence of skull fracture. CONCLUSION: 1. No acute findings in the brain. . Electronically signed by: Ryan De La Torre MD 01/16/2018 8:09 PM EDT
[2018-01-17] MEDS: Levothyroxine 125 MCG Tablet PO SCH (05:03)
[2018-01-17 05:06] LABS: Baso # (Auto) 0.1 th/mm3 (0.0-0.2); Baso % (Auto) 0.6 % (0.0-2.0); Eos # (Auto) 0.5 th/mm3 (0.0-0.4); Eos % (Auto) 3.3 % (0.0-4.0); Hemoglobin 9.4 gm/dL (11.6-15.3); Lymph # (Auto) 1.8 th/mm3 (1.0-4.8); Lymph % (Auto) 12.9 % (9.0-44.0); Mean Corpuscular HGB Conc 32.3 % (32.0-36.0); Mean Corpuscular Hemoglobin 29.8 pg (27.0-34.0); Mean Corpuscular Volume 92.1 fL (80.0-100.0); Mean Platelet Volume 7.7 fL (7.0-11.0); Mono # (Auto) 2.2 th/mm3 (0.0-0.9); Mono % (Auto) 15.2 % (0.0-8.0); Neut # (Auto) 9.7 th/mm3 (1.8-7.7); Platelet Count 321 th/mm3 (150-450); Red Blood Count 3.15 mil/mm3 (4.00-5.30); Red Cell Distribution Width 20.9 % (11.6-17.2); White Blood Count 14.3 th/mm3 (4.0-11.0)
[2018-01-17 05:34] LABS: Albumin 1.9 g/dL (3.4-5.0); Calcium 9.3 mg/dL (8.5-10.1); Carbon Dioxide 28.2 meq/L (21.0-32.0); Phosphorus 3.9 mg/dL (2.5-4.9); Potassium 4.4 meq/L (3.5-5.1)
[2018-01-17 07:02] LABS: Alanine Aminotransferase 11 U/L (10-53); Albumin 1.9 g/dL (3.4-5.0); Anion Gap 6 meq/L (5-15); Aspartate Aminotransferase 20 U/L (15-37); Blood Urea Nitrogen 31 mg/dL (7-18); Calcium 9.3 mg/dL (8.5-10.1); Carbon Dioxide 31.6 meq/L (21.0-32.0); Chloride 97 meq/L (98-107); Glomerular Filtration Rate 9 mL/min (>89); Glucose,Random 156 mg/dL (74-106); Potassium 4.5 meq/L (3.5-5.1); Sodium 135 meq/L (136-145)
[2018-01-17 07:04] LABS: Alkaline Phosphatase 319 U/L (45-117); Total Protein 6.1 g/dL (6.4-8.2)
[2018-01-17 07:23] LABS: Eosinophils 3 % (0-4); Lymphocytes 11 % (9-44); Monocytes 15 % (0-8); Platelet Estimate Normal (Normal); Platelet Morphology Normal (Normal); Tallied Nucleated RBC 4 (0-0)
[2018-01-17] MEDS: Gabapentin 100 MG Capsule PO SCH ×2 (08:15→20:59)
[2018-01-17] MEDS: Carvedilol 6.25 MG Tablet PO SCH ×2 (08:15→20:59)
[2018-01-17] MEDS: Famotidine 20 MG Tablet PO SCH ×2 (08:15→20:58)
[2018-01-17] MEDS: Heparin - SQ 10,000 UNITS/ML Vial SQ SCH ×2 (08:16→21:00)
[2018-01-17] MEDS: Insulin NovoLOG Aspart Correctional Sugar Inj SQ SCH ×4 (08:27→20:56)
[2018-01-17] MEDS: Collagenase Oint 30 GM Tube TOPICAL SCH (08:27)
--- NOTE | 2018-01-17 12:30 | P.PNID ---
Subjective Remarks: Patient feels okay. She is somewhat lethargic. Notes pain in the left thigh when touched. Denies chills, nausea or vomiting. Afebrile. No new complaints Angiogram planned. HISTORY OF PRESENT ILLNESS: This is a 72-year-old white female who is known to me from previous hospitalizations. The patient was last admitted for a dehisced wound at the left tibia from a vascular procedure at the end of November. She had Pseudomonas aeruginosa cultured from the leg and also Klebsiella pneumoniae. She was discharged on cefepime, which she was receiving at hemodialysis center. She developed redness of her right foot and it became progressively worse with increased erythema and purplish discoloration at the right fifth toe and at the base of the fifth toe as well. 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 Allergies/Adverse Reactions: Allergies amlodipine Allergy (Severe, Verified 12/22/17 22:56) Edema, Generalized adhesive tape Allergy (Unknown, Verified 12/22/17 22:56) Generalized Itching Redness Objective Vital Signs 01/16/18 16:00 01/16/18 20:00 01/17/18 00:00 Temperature 97.8 F 98.2 F 97.7 F Pulse Rate 59 L 64 62 Respiratory Rate 15 16 16 Blood Pressure 101/46 L 114/62 111/53 L Pulse Oximetry 95 91 L 92 L 01/17/18 04:00 01/17/18 08:00 Temperature 98.3 F 97.9 F Pulse Rate 56 L 50 L Respiratory Rate 17 14 Blood Pressure 98/50 L 109/47 L Pulse Oximetry 96 94 L Intake & Output 01/16/18 01/17/18 01/17/18 18:59 06:59 18:59 Intake Total 1640 / 1640 Output Total 1999 / 1999 Balance -1999 / -1999 1640 / 1640 Intake: IV 1400 / 1400 Cubicin Inj 600 MG In NS Inj 100 / 100 100 ML @ 200 mls/hr IV.SIG Q48H RICARDO Rx#:[id number] Diflucan 200 mg Premix Bag 100 200 / 200 ML @ 100 mls/hr IV.SIG Q24H RICARDO Rx#:[id number] Merrem Inj 2,000 MG In NS Inj 100 / 100 100 ML @ 200 mls/hr IV.SIG Q24H RICARDO Rx#:[id number] NS Inj 1,000 ML @ As Directed 1000 / 1000 OTHER .Q0M PRN Rx#:[id number] Oral 240 / 240 Output: Hemodialysis Amount 1999 Other: # Voids 0 01/13/18 12:25 Blood - Peripheral Aerobic Blood Culture - Preliminary No growth in 4 days 01/13/18 12:25 Blood - Peripheral Anaerobic Blood Culture - Final QNS - See aerobic report. 01/13/18 12:20 Blood - Peripheral Aerobic Blood Culture - Preliminary No growth in 4 days 01/13/18 12:20 Blood - Peripheral Anaerobic Blood Culture - Final QNS - See aerobic report. Lab - Hematology Results 01/17/18 04:02 WBC 14.3 H RBC 3.15 L Hgb 9.4 L Hct 29.0 L MCV 92.1 MCH 29.8 MCHC 32.3 RDW 20.9 H Plt Count 321 MPV 7.7 Prelim Diff (Auto) Slide review pending Neut % (Auto) 68.0 Lymph % (Auto) 12.9 Creek % (Auto) 15.2 H Eos % (Auto) 3.3 Baso % (Auto) 0.6 Neut # (Auto) 9.7 H Lymph # (Auto) 1.8 Creek # (Auto) 2.2 H Eos # (Auto) 0.5 H Baso # (Auto) 0.1 WBC Differential Manual diff final Seg Neuts % (Manual) 70 Lymphocytes % (Manual) 11 Monocytes % (Manual) 15 H Eosinophils % (Manual) 3 Basophils % (Manual) 1 Abs Neuts (Manual) 10.0 H Nucleated RBCs/100 WBC 4 H Differential Comment . Platelet Estimate Normal Platelet Morphology Normal Lab - Chemistry Results 01/15/18 01/15/18 01/16/18 17:01 22:11 06:16 Sodium 129 L Potassium 5.2 H Chloride 91 L Carbon Dioxide 24.2 Anion Gap 14 BUN 48 H Creatinine 6.14 H Estimated GFR 7 L POC Glucose 296 H 201 H Random Glucose 160 H Calcium 10.0 Phosphorus Magnesium Total Bilirubin AST ALT Alkaline Phosphatase Ammonia Total Protein Albumin 01/16/18 01/16/18 01/16/18 07:50 11:37 17:28 Sodium Potassium Chloride Carbon Dioxide Anion Gap BUN Creatinine Estimated GFR POC Glucose 170 H 127 H 257 H Random Glucose Calcium Phosphorus Magnesium Total Bilirubin AST ALT Alkaline Phosphatase Ammonia Total Protein Albumin 01/16/18 01/17/18 01/17/18 20:39 04:02 06:19 Sodium 136 135 L Potassium 4.4 D 4.5 Chloride 96 L 97 L Carbon Dioxide 28.2 31.6 Anion Gap 12 6 BUN 30 H 31 H Creatinine 4.42 H 4.61 H Estimated GFR 10 L 9 L POC Glucose 194 H Random Glucose 146 H 156 H Calcium 9.3 9.3 Phosphorus 3.9 Magnesium 2.0 Total Bilirubin 0.5 AST 20 ALT 11 Alkaline Phosphatase 319 H Ammonia Total Protein 6.1 L D Albumin 1.9 L 1.9 L 01/17/18 01/17/18 01/17/18 06:19 07:34 11:28 Sodium Potassium Chloride Carbon Dioxide Anion Gap BUN Creatinine Estimated GFR POC Glucose 167 H 189 H Random Glucose Calcium Phosphorus Magnesium Total Bilirubin AST ALT Alkaline Phosphatase Ammonia 39 H Total Protein Albumin Imaging: ITS Impressions Femur CT 01/12/18 00:00 CONCLUSION: 1. Soft tissue defect in the anterior upper left thigh and the medial distal left thigh at the level of the knee. 2. Diffuse subcutaneous soft tissue edema. No drainable abscess identified. Aorta w/Runoff CTA 01/15/18 00:00 CONCLUSION: 1. Diffuse atherosclerotic disease with moderate distal aortic stenosis at the bifurcation. 2. Bilateral moderate common iliac artery stenosis, likely overestimated due to degree of calcified plaque. 3. Left femoral to above-knee popliteal artery bypass graft with critical stenosis of the proximal anastomosis and mild stenosis of the distal anastomosis. 4. Diffuse right SFA disease with tandem moderate stenoses in the proximal thigh and tandem severe stenoses in the distal thigh. Diffuse right popliteal artery disease. 5. Limited single vessel runoff on the right. The peroneal artery with reconstitution of the anterior tibial artery in the distal calf. 6. Limited two-vessel runoff on the left. Diffusely diseased posterior tibial and peroneal arteries. 7. Stable 10 mm nodule in the right lung base. Follow-up examination in 3-6 months is again recommended to document stability. 8. Stable additional ancillary findings, as above. Extremity Arterial Study 01/15/18 00:00 CONCLUSION: Findings of severe disease on the right side with nondiagnostic evaluation on the left. CT angiography of the abdominal aorta and lower extremities is recommended for further evaluation if clinically indicated. Head CT 01/16/18 00:00 CONCLUSION: 1. No acute findings in the brain. . Physical Exam: GENERAL: No acute distress. Awake, alert, lethargic. HEENT: Head is atraumatic. Extraocular movements grossly intact. Pupils reactive to light. No icterus. No conjunctival erythema. Oropharynx mucosa moist. NECK: Supple without adenopathy. LUNGS: Clear to auscultation. HEART: Regular S1, S2, without murmurs, rubs or gallops. ABDOMEN: Bowel sounds present, obese, soft, nontender. EXTREMITIES: The left inner thigh has chronic open ulceration with good granulation tissue. little superficial necrotic area at lower edge. The left lateral thigh has purplish discoloration of the skin. It is warm to touch and tender on palpation. The left inner tibial area dehisced surgical incision has pale granulation tissue with specs of necrotic in the wound bed. Decreased erythema at the dorsum of the foot at the base of the toes and at toe #3 and 4. The right 5th toe and 5th MTP is dry/gangrenous. SKIN: No diffuse rash. NEUROLOGIC: No gross focal finding. PSYCHIATRIC: The patient is pleasant, calm, and cooperative. Assessment and Plan - Plan IMPRESION: 1. Severe peripheral vascular disease, now involving the right foot with gangrene at the right fifth toe and base of the right fifth toe. 2. Open wound of the left inner tibia which grew out Pseudomonas and Klebsiella, sensitive to cefepime in late November. 3. Chronic open wound of the left inner groin/thigh which has had positive bacteria in the past and was treated with antibiotics and was doing well with dressing changes. 4. Left latera thigh ecchymosis/cellulitis unchanged. The patient has had prior wounds before these wounds and she had great difficulty healing. 5. Diabetes mellitus. 6. End-stage renal disease on hemodialysis RECOMMENDATIONS: 1. Continue daptomycin. The patient has had VRE in the past in addition to other organisms. 2. Continue Meropenem for gram-negative coverage. 3. Continue Diflucan. She has also had Rosa in the past. 4. Add Minocycline PO. 5. Wound care and monitor wounds and clinical response.
--- NOTE | 2018-01-17 12:32 | P.PNNP ---
Subjective Interval history: Pt getting wounds dressed. present. Pt very medicated and somewhat confused. Angioplasty scheduled tomorrow. Physical Exam Vital signs: Vital Signs 01/16/18 16:00 01/16/18 20:00 01/17/18 00:00 Temperature 97.8 F 98.2 F 97.7 F Pulse Rate 59 L 64 62 Respiratory Rate 15 16 16 Blood Pressure 101/46 L 114/62 111/53 L Pulse Oximetry 95 91 L 92 L 01/17/18 04:00 01/17/18 08:00 01/17/18 12:00 Temperature 98.3 F 97.9 F 98.1 F Pulse Rate 56 L 50 L 52 L Respiratory Rate 17 14 16 Blood Pressure 98/50 L 109/47 L 96/41 L Pulse Oximetry 96 94 L 97 Intake & Output 01/16/18 01/17/18 01/17/18 18:59 06:59 18:59 Intake Total 1640 / 1640 Output Total 1999 Balance -1999 1640 / 1640 Intake: IV 1400 / 1400 Cubicin Inj 600 MG In NS Inj 100 / 100 100 ML @ 200 mls/hr IV.SIG Q48H [facility] Rx#:[id number] Diflucan 200 mg Premix Bag 100 200 / 200 ML @ 100 mls/hr IV.SIG Q24H [facility] Rx#:[id number] Merrem Inj 2,000 MG In NS Inj 100 / 100 100 ML @ 200 mls/hr IV.SIG Q24H [facility] Rx#:[id number] NS Inj 1,000 ML @ As Directed 1000 / 1000 OTHER .Q0M PRN Rx#:[id number] Oral 240 / 240 Output: Hemodialysis Amount 1999 Other: # Voids 0 - Constitutional no acute distress - Routine HEENT Exam Head: Present: normocephalic - Routine Neck Exam Present: supple - Routine Respiratory Exam Present: CTA bilaterally - Routine Cardiovascular Exam Present: RRR, S1, S2 - Routine Abdominal Exam Present: soft - Routine Extremities Exam Present: edema (trace bilat hips and thighs) - Routine Skin Exam Comments: Ongoing area of apparent ischemia on left lateral thigh that appears to be worsening. Right small toe necrotic. Assessment and Plan - Assessment (1) ESRD (end stage renal disease) on dialysis Code(s): N18.6 - End stage renal disease; Z99.2 - Dependence on renal dialysis Status: Acute Plan: HD today with tentative MWF schedule as per outpatient. Epogen with HD. Patient's overall condition has been declining over the last several weeks. Patient still with significant comorbidities and increasing debilitation. Prognosis guarded. Gadolinium is contraindicated. Medication should be adjusted for the patient's end-stage renal disease when indicated. (2) Peripheral vascular disease of lower extremity with ulceration Code(s): I73.9 - Peripheral vascular disease, unspecified; L97.909 - Non- pressure chronic ulcer of unspecified part of unspecified lower leg with unspecified severity Status: Acute Plan: Angioplasty scheduled 01/18 in AM with HD after. Attempting to salvage right leg. Apparent ischemic area on left lateral thigh. Will review pathology from previous wound debridement of thigh wound from last admission. (3) Cellulitis Code(s): L03.90 - Cellulitis, unspecified Status: Acute Qualifiers: Site of cellulitis: extremity Site of cellulitis of extremity: lower extremity Laterality: left Qualified Code(s): L03.116 - Cellulitis of left lower limb Plan: Abx per ID (4) DM (diabetes mellitus) Code(s): E11.9 - Type 2 diabetes mellitus without complications Status: Acute Plan: Mgmt per primary
--- NOTE | 2018-01-17 13:05 | P.PNIM ---
Subjective Interval history: Patient says she is feeling better than yesterday. Up in bed eating ice cream. Reports pain is controlled. confirms that patient's confusion has resolved Physical Exam Vital signs: Vital Signs 01/16/18 16:00 01/16/18 20:00 01/17/18 00:00 Temperature 97.8 F 98.2 F 97.7 F Pulse Rate 59 L 64 62 Respiratory Rate 15 16 16 Blood Pressure 101/46 L 114/62 111/53 L Pulse Oximetry 95 91 L 92 L 01/17/18 04:00 01/17/18 08:00 01/17/18 12:00 Temperature 98.3 F 97.9 F 98.1 F Pulse Rate 56 L 50 L 52 L Respiratory Rate 17 14 16 Blood Pressure 98/50 L 109/47 L 96/41 L Pulse Oximetry 96 94 L 97 Intake & Output 01/16/18 01/17/18 01/17/18 18:59 06:59 18:59 Intake Total 1640 / 1640 Output Total 1999 / 1999 Balance -1999 / 1640 / 1640 Intake: IV 1400 / 1400 Cubicin Inj 600 MG In NS Inj 100 / 100 100 ML @ 200 mls/hr IV.SIG Q48H [facility] Rx#:[id number] Diflucan 200 mg Premix Bag 100 200 / 200 ML @ 100 mls/hr IV.SIG Q24H [facility] Rx#:[id number] Merrem Inj 2,000 MG In NS Inj 100 / 100 100 ML @ 200 mls/hr IV.SIG Q24H [facility] Rx#:[id number] NS Inj 1,000 ML @ As Directed 1000 / 1000 OTHER .Q0M PRN Rx#:[id number] Oral 240 / 240 Output: Hemodialysis Amount 1999 Other: # Voids 0 Narrative: GENERAL: Patient lying in bed. Appears comfortable. SKIN: Warm and dry. HEAD: Normocephalic. EYES: No scleral icterus. No injection or drainage. NECK: Supple, trachea midline. No JVD. CARDIOVASCULAR: Regular rate and rhythm without murmurs, gallops, or rubs. RESPIRATORY: Breath sounds equal bilaterally. No accessory muscle use. GASTROINTESTINAL: Abdomen soft, non-tender, nondistended. MUSCULOSKELETAL: No cyanosis, or edema. Right lower extremity with right fifth toe gangrene. Dressings not disturbed. Exam unchanged. BACK: Nontender without obvious deformity. No CVA tenderness. Results - Labs CBC & Chem 7: 01/17/18 04:02 01/17/18 06:19 Laboratory Results - last 24 hr 01/16/18 01/16/18 01/17/18 17:28 20:39 04:02 WBC 14.3 H RBC 3.15 L Hgb 9.4 L Hct 29.0 L MCV 92.1 MCH 29.8 MCHC 32.3 RDW 20.9 H Plt Count 321 MPV 7.7 Prelim Diff (Auto) Slide review pending Neut % (Auto) 68.0 Lymph % (Auto) 12.9 Bowie % (Auto) 15.2 H Eos % (Auto) 3.3 Baso % (Auto) 0.6 Neut # (Auto) 9.7 H Lymph # (Auto) 1.8 Bowie # (Auto) 2.2 H Eos # (Auto) 0.5 H Baso # (Auto) 0.1 WBC Differential Manual diff final Seg Neuts % (Manual) 70 Lymphocytes % (Manual) 11 Monocytes % (Manual) 15 H Eosinophils % (Manual) 3 Basophils % (Manual) 1 Abs Neuts (Manual) 10.0 H Nucleated RBCs/100 WBC 4 H Differential Comment . Platelet Estimate Normal Platelet Morphology Normal Sodium Potassium Chloride Carbon Dioxide Anion Gap BUN Creatinine Estimated GFR POC Glucose 257 H 194 H Random Glucose Calcium Phosphorus Magnesium Total Bilirubin AST ALT Alkaline Phosphatase Ammonia Total Protein Albumin 01/17/18 01/17/18 01/17/18 04:02 06:19 06:19 WBC RBC Hgb Hct MCV MCH MCHC RDW Plt Count MPV Prelim Diff (Auto) Neut % (Auto) Lymph % (Auto) Bowie % (Auto) Eos % (Auto) Baso % (Auto) Neut # (Auto) Lymph # (Auto) Bowie # (Auto) Eos # (Auto) Baso # (Auto) WBC Differential Seg Neuts % (Manual) Lymphocytes % (Manual) Monocytes % (Manual) Eosinophils % (Manual) Basophils % (Manual) Abs Neuts (Manual) Nucleated RBCs/100 WBC Differential Comment Platelet Estimate Platelet Morphology Sodium 136 135 L Potassium 4.4 D 4.5 Chloride 96 L 97 L Carbon Dioxide 28.2 31.6 Anion Gap 12 6 BUN 30 H 31 H Creatinine 4.42 H 4.61 H Estimated GFR 10 L 9 L POC Glucose Random Glucose 146 H 156 H Calcium 9.3 9.3 Phosphorus 3.9 Magnesium 2.0 Total Bilirubin 0.5 AST 20 ALT 11 Alkaline Phosphatase 319 H Ammonia 39 H Total Protein 6.1 L D Albumin 1.9 L 1.9 L 01/17/18 01/17/18 07:34 11:28 WBC RBC Hgb Hct MCV MCH MCHC RDW Plt Count MPV Prelim Diff (Auto) Neut % (Auto) Lymph % (Auto) Bowie % (Auto) Eos % (Auto) Baso % (Auto) Neut # (Auto) Lymph # (Auto) Bowie # (Auto) Eos # (Auto) Baso # (Auto) WBC Differential Seg Neuts % (Manual) Lymphocytes % (Manual) Monocytes % (Manual) Eosinophils % (Manual) Basophils % (Manual) Abs Neuts (Manual) Nucleated RBCs/100 WBC Differential Comment Platelet Estimate Platelet Morphology Sodium Potassium Chloride Carbon Dioxide Anion Gap BUN Creatinine Estimated GFR POC Glucose 167 H 189 H Random Glucose Calcium Phosphorus Magnesium Total Bilirubin AST ALT Alkaline Phosphatase Ammonia Total Protein Albumin Microbiology 01/13/18 12:25 Blood - Peripheral Aerobic Blood Culture - Preliminary No growth in 4 days 01/13/18 12:25 Blood - Peripheral Anaerobic Blood Culture - Final QNS - See aerobic report. 01/13/18 12:20 Blood - Peripheral Aerobic Blood Culture - Preliminary No growth in 4 days 01/13/18 12:20 Blood - Peripheral Anaerobic Blood Culture - Final QNS - See aerobic report. - Imaging Impressions Extremity Arterial Study 01/15/18 00:00 CONCLUSION: Findings of severe disease on the right side with nondiagnostic evaluation on the left. CT angiography of the abdominal aorta and lower extremities is recommended for further evaluation if clinically indicated. Head CT 01/16/18 00:00 CONCLUSION: 1. No acute findings in the brain. . Assessment and Plan - Plan 72 y/o WF admitted for intract BL LE pain. //Right lower extremity cellulitis, left groin and left popliteal wounds, with possible acute on chronic ischemia from PAD -Infectious disease following, continue Cubicin, prior VRE in the past, continue meropenem and Diflucan per infectious disease. -Vascular surgery Dr. 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 Per surgery, does not appear to be amenable to endovascular revascularization with any hope of long-term durability. For second opinion from Dr. Rodrigues. If she cannot be profuse, she will need major amputation. -Continue wound care left groin popliteal once. CT scan of the left thigh showed tissue defect in the left thigh and medial distal left thigh at the level of the knee. Diffuse subcutaneous edema. No abscess. Blood culture remains negative. -continue home fentanyl and gabapentin and oxycodone. -We will defer antiplatelet therapy (home medicine being Plavix) to vascular surgery in case procedure is warranted. = 01/17. Continue antibiotics as per ID. Vascular surgery following. Plan for intervention tomorrow. //PAD -defer Plavix therapy to vasc surgery. -continue home statin; will check CPK once weekly since pt is started on dapto given risk of myositis. = 01/17 vascular surgery procedure tomorrow. //Hypertension-controlled, Coreg, //Diabetes type I Patient wants to use her home insulin pump. -pt will use insulin pump. Sliding scale as needed. //Nephrology End-stage renal disease, dialysis Tuesday. -dialysis per nephrology. //Constipation Chronic. -Continue Metamucil per pt request. //Chronic pain The pt is on hospice as an outpt. -pain control. No mechanical DVT prophylaxis due to lower extremity conditions, heparin for DVT prophylaxis. Discharge Planning: When cleared by ID, vascular surgery.
--- NOTE | 2018-01-17 14:49 | P.PNVS ---
- Pre-operative Note Planned Procedure: Bilateral Lower Extremity Angiogram Interval History: 72/F with a Hx of peripheral vascular disease,R LE ischemia and ESRD on HD M/W/ F Pt S/p L arterial reconstruction with Dr. Brothers and post-operative L groin wound that is being managed by him and wound care team Labs: WBC 14.3 th/mm3 (4.0-11.0) H 01/17/18 04:02 RBC 3.15 mil/mm3 (4.00-5.30) L 01/17/18 04:02 Hgb 9.4 gm/dL (11.6-15.3) L 01/17/18 04:02 Hct 29.0 % (35.0-46.0) L 01/17/18 04:02 MCV 92.1 fL (80.0-100.0) 01/17/18 04:02 MCH 29.8 pg (27.0-34.0) 01/17/18 04:02 MCHC 32.3 % (32.0-36.0) 01/17/18 04:02 RDW 20.9 % (11.6-17.2) H 01/17/18 04:02 Plt Count 321 th/mm3 (150-450) 01/17/18 04:02 MPV 7.7 fL (7.0-11.0) 01/17/18 04:02 INR 1.1 Ratio 01/12/18 12:15 Sodium 135 meq/L (136-145) L 01/17/18 06:19 Potassium 4.5 meq/L (3.5-5.1) 01/17/18 06:19 Chloride 97 meq/L (98-107) L 01/17/18 06:19 Carbon Dioxide 31.6 meq/L (21.0-32.0) 01/17/18 06:19 Anion Gap 6 meq/L (5-15) 01/17/18 06:19 BUN 31 mg/dL (7-18) H 01/17/18 06:19 Random Glucose 156 mg/dL (74-106) H 01/17/18 06:19 Calcium 9.3 mg/dL (8.5-10.1) 01/17/18 06:19 Imaging: ITS Impressions Femur CT 01/12/18 00:00 CONCLUSION: 1. Soft tissue defect in the anterior upper left thigh and the medial distal left thigh at the level of the knee. 2. Diffuse subcutaneous soft tissue edema. No drainable abscess identified. Aorta w/Runoff CTA 01/15/18 00:00 CONCLUSION: 1. Diffuse atherosclerotic disease with moderate distal aortic stenosis at the bifurcation. 2. Bilateral moderate common iliac artery stenosis, likely overestimated due to degree of calcified plaque. 3. Left femoral to above-knee popliteal artery bypass graft with critical stenosis of the proximal anastomosis and mild stenosis of the distal anastomosis. 4. Diffuse right SFA disease with tandem moderate stenoses in the proximal thigh and tandem severe stenoses in the distal thigh. Diffuse right popliteal artery disease. 5. Limited single vessel runoff on the right. The peroneal artery with reconstitution of the anterior tibial artery in the distal calf. 6. Limited two-vessel runoff on the left. Diffusely diseased posterior tibial and peroneal arteries. 7. Stable 10 mm nodule in the right lung base. Follow-up examination in 3-6 months is again recommended to document stability. 8. Stable additional ancillary findings, as above. Extremity Arterial Study 01/15/18 00:00 CONCLUSION: Findings of severe disease on the right side with nondiagnostic evaluation on the left. CT angiography of the abdominal aorta and lower extremities is recommended for further evaluation if clinically indicated. Head CT 01/16/18 00:00 CONCLUSION: 1. No acute findings in the brain. . Orders: NPO after midnight Consent: Informed consent has been obtained from Mary Jarrell and Mr. Jarrell (). I have explained the procedure in detail and discussed the risks, benefits, and potential complications. All questions have been answered.
[2018-01-17] MEDS: Psyllium Husk SF 3.4 GM in 5.8 GM Packet PO SCH (16:41)
[2018-01-17] MEDS: Ezetimibe 10 MG Tablet PO SCH (17:08)
[2018-01-17] MEDS: Minocycline 100 MG Capsule PO SCH (20:58)
--- NOTE | 2018-01-17 22:26 | MG ---
cc: Braden Garzon MD ELECTROENCEPHALOGRAM RECORD NUMBER: [id number] DESCRIPTION: A 4-5 Hz posterior rhythm, occasional delta, 20-50 microvolts, suggesting a sleep state. Induced driving with photic stimulation and mild EEG variability reactivity. Background slowing when the patient was noted to be awake. Single-lead EKG showing sinus rhythm. INTERPRETATION: Mild encephalopathy and probable sleep state. Clinical correlation. MD SANFORD Duffy/luis , 09:48 PM , 09:54 PM
[2018-01-18] MEDS ORDERED: Chlorhexidine Gluconate 2% 1 Pack (2 Cloths) TOPICAL SCH (04:45)
[2018-01-18] MEDS ORDERED: Sodium Chlor 0.9% Inj 500 ML IV.SIG SCH (05:00)
[2018-01-18] MEDS: Levothyroxine 125 MCG Tablet PO SCH (05:53)
[2018-01-18] MEDS: Heparin - SQ 10,000 UNITS/ML Vial SQ SCH ×3 (09:33→20:39)
[2018-01-18] MEDS: Gabapentin 100 MG Capsule PO SCH ×2 (09:34→20:06)
[2018-01-18] MEDS: Insulin NovoLOG Aspart Correctional Sugar Inj SQ SCH ×4 (09:34→20:20)
[2018-01-18] MEDS: Carvedilol 6.25 MG Tablet PO SCH ×2 (09:34→20:05)
[2018-01-18] MEDS: Minocycline 100 MG Capsule PO SCH ×2 (09:34→20:00)
[2018-01-18] MEDS: Famotidine 20 MG Tablet PO SCH ×2 (09:34→20:00)
[2018-01-18] MEDS: Collagenase Oint 30 GM Tube TOPICAL SCH (09:36)
[2018-01-18] MEDS ORDERED: Heparin/NS PF Inj 500 ML ONE (10:43)
[2018-01-18] MEDS ORDERED: Heparin 10,000 UNITS/10 ML Vial (for IV use) ONE (10:43)
[2018-01-18] MEDS ORDERED: Iohexol 300 MG/ML 50 ML Vial (for Rad Diag) IVCONTRAST ONE ×4 (11:52→11:53)
[2018-01-18] MEDS ORDERED: Sodium Chlor 0.9% Inj 100 ML IV.SIG ONE (12:00)
[2018-01-18] MEDS ORDERED: Phenylephrine/NS 1000 MCG/10ML Syringe IV.PUSH ONE (12:00)
[2018-01-18] MEDS ORDERED: Glycopyrrolate Inj 1 MG/5 ML Syringe IV.PUSH ONE (12:00)
[2018-01-18] MEDS ORDERED: Lidocaine PF 1% Inj 5 ML Syringe INFILTRATN ONE (12:00)
[2018-01-18] MEDS ORDERED: *morphine SULFATE 4 MG/ML PERIprocedure ONLY ONE ×3 (12:13→12:59)
--- NOTE | 2018-01-18 12:17 | P.OP ---
- Preoperative Diagnosis (1) Peripheral vascular disease of lower extremity with ulceration - Postoperative Diagnosis (1) Peripheral vascular disease of lower extremity with ulceration Date of procedure: 01/18/18 Procedure: 1. Aortogram w/ B LE angiogram 2. L proximal bypass [employer] (6mm DCB) 3. R SEAM TAPER MACHINE Angioseal Implants: R SEAM TAPER MACHINE Angioseal Anesthesia: [facility] Surgeon: Mukesh Rodrigues MD Estimated blood loss (mL): 5 Pathology: none sent Operation and Findings: 1. Patent aorto-iliac segment 2. occluded L profunda 3. High grade (catheter diameter) L bypass stenosis proximally, successful [employer] to 6mm with DCB 4. L PT runoff 5. R infrageniculate disease with PT occlusion, AT reconstitution distally mid calf Will need R fem-AT bypass vs major amputation
[2018-01-18] MEDS ORDERED: *Meperidine Inj 25 MG/ML Vial PERIprocedural Use ONLY ONE (12:20)
--- NOTE | 2018-01-18 13:41 | MP ---
cc: Mukesh Rodrigues MD DATE OF OPERATION: 01/18/2018 PREOPERATIVE DIAGNOSES: Bilateral lower extremity ischemia, peripheral arterial disease, and failing left lower extremity bypass. POSTOPERATIVE DIAGNOSES: Bilateral lower extremity ischemia, peripheral arterial disease, and failing left lower extremity bypass. PROCEDURES: 1. Aortogram with bilateral lower extremity angiograms. 2. Left femoral popliteal angioplasty with a 6-mm drug-coated balloon. 3. Right common femoral artery Angio-Seal. ATTENDING SURGEON: Mukesh Rodrigues MD. ANESTHESIA: Local with sedation. INDICATIONS FOR PROCEDURE: Ms. Jarrell is a 72-year-old lady, who had a left lower extremity bypass done elsewhere. She was taken to the operating room for angiographic evaluation of her left leg, as it is suspected to be a failing bypass as well as the right leg, which has tissue loss. There was no prior catheterization that seemed to be available for my review. DESCRIPTION OF PROCEDURE: Informed consent was obtained from the patient. She was taken to the operating room and placed supine on the operating table. An appropriate timeout was taken to ensure the patient's identity, operative site, and planned procedure. The administration of antibiotics was not necessary, as this was a clean procedure, without the planned implantation of any foreign object. Everyone in the room agreed with the timeout and we proceeded. Her right groin was prepped and draped and locally anesthetized with 1% lidocaine. A 21-gauge micropuncture needle was used to access the right common femoral artery. This was exchanged using Seldinger technique for a micropuncture sheath, through which a 0.035 Glidewire was introduced. The micropuncture sheath was exchanged for a 4-Mongolian sheath. The Glidewire was advanced through the aorta and the VCF catheter was advanced over this, and aortogram was obtained. The Glidewire and VCF were navigated down to the left common femoral artery and a left lower extremity arteriogram was obtained. The patient was heparinized with 3000 units of IV heparin. A 0.035 Griffith wire was introduced through the VCF catheter and the VCF catheter was removed, and a 4-Mongolian sheath was removed. A 6-Mongolian 55-cm Jose sheath was placed over the Griffith. A CXI catheter was placed over the Griffith through the Jose sheath, and the Griffith was exchanged for a Glidewire, which was used to navigate past the stenosis into the distal part of the graft. CXI catheter was advanced over this and we exchanged this back for the Griffith. The CXI catheter was removed and the proximal stenosis was predilated with a 4-mm balloon, and then dilated with a 6 x 60 drug-coated balloon. The completion of angiogram showed excellent result on a extravasation or flow-limiting dissection wire. Catheter and sheath were removed, and a short 6-Mongolian sheath was placed in the right groin, and a right lower extremity arteriogram was obtained. The wire was reintroduced and the sheath was exchanged for the Angio-Seal device, which was used to close the groin. Hemostasis was achieved and the patient was taken to recovery room in stable condition. INTERPRETATION OF IMAGES: The patient has a patent terminal aorta, common iliac arteries, and external arteries bilaterally with no hemodynamically significant stenoses. The left common femoral artery was patent, the profunda was occluded, but reconstitutes several centimeters distally. There was a high-grade proximal stenosis of the femoral to below-knee popliteal artery prosthetic bypass, and this was successfully angioplastied. The below-knee popliteal artery was patent. The posterior tibial artery is the dominant runoff to the foot. Anterior tibial artery is occluded. On the right-hand side, the common femoral and profunda are patent. The SFA had several sequential high-grade calcific stenoses. The popliteal artery has a high-grade ulcerative calcific stenosis and the posterior tibial artery is occluded. The peroneal artery is occluded. The anterior tibial artery reconstitutes at the distal calf. MD DUARTE Matos/quincy/dane , 12:48 PM , 12:55 PM
[2018-01-18] MEDS: Gelatin 12 MM/7 MM Topical Foam TOPICAL PRN (18:05)
--- NOTE | 2018-01-18 18:11 | P.PNIM ---
Subjective Interval history: patient seen this afternoon in dialysis.denies any chest pain or shortness breath. Reports the pain is under control. Physical Exam Vital signs: Vital Signs 01/17/18 20:00 01/18/18 00:00 01/18/18 01:56 Temperature 97.7 F 97.8 F Pulse Rate 52 L 52 L 53 L Respiratory Rate 16 16 Blood Pressure 121/52 L 103/47 L Pulse Oximetry 95 96 01/18/18 04:00 01/18/18 08:00 01/18/18 09:37 Temperature 97.9 F 97.0 F L Pulse Rate 53 L 54 L 52 L Respiratory Rate 17 16 Blood Pressure 114/53 L 112/52 L Pulse Oximetry 96 96 01/18/18 12:05 01/18/18 12:20 01/18/18 12:35 Temperature 98.0 F Pulse Rate 54 L 54 L 54 L Respiratory Rate 20 20 18 Blood Pressure 113/49 L 126/51 L 100/44 L Pulse Oximetry 100 100 95 01/18/18 13:00 01/18/18 14:00 Temperature Pulse Rate 52 L 51 L Respiratory Rate 18 20 Blood Pressure 101/48 L 105/51 L Pulse Oximetry 95 95 Intake & Output 01/17/18 01/18/18 01/18/18 18:59 06:59 18:59 Intake Total 800 / 800 700 / 700 400 / 400 Output Total 5 / 5 Balance 800 / 800 700 / 700 395 / 395 Weight 102 kg Intake: IV 100 / 100 100 / 100 0 / 0 Heparin/NS PF Inj 500 ML @ 0 0 / 0 mls/hr .ROUTE .K-MED ONE Rx#: [id number] Diflucan 200 mg Premix Bag 100 100 / 100 ML @ 100 mls/hr IV.SIG Q24H [facility] Rx#:[id number] Merrem Inj 2,000 MG In NS Inj 100 / 100 100 ML @ 200 mls/hr IV.SIG Q24H [facility] Rx#:[id number] Oral 600 / 600 600 / 600 Anesthesia Amount 400 / 400 Other 100 / 100 Output: Estimated Blood Loss 5 / 5 Other: # Voids 1 Date of Last Bowel Movement 01/17/18 01/17/18 # Bowel Movements 1 Narrative: GENERAL: Patient lying in dialysis bed. Appears comfortable. SKIN: Warm and dry. HEAD: Normocephalic. EYES: No scleral icterus. No injection or drainage. NECK: Supple, trachea midline. No JVD. CARDIOVASCULAR: Regular rate and rhythm without murmurs, gallops, or rubs. RESPIRATORY: Breath sounds equal bilaterally. No accessory muscle use. GASTROINTESTINAL: Abdomen soft, non-tender, nondistended. MUSCULOSKELETAL: No cyanosis, or edema. Right lower extremity with right fifth toe gangrene, about the same as yesterday. Dressings not disturbed. Exam unchanged. BACK: Nontender without obvious deformity. No CVA tenderness. Results - Labs CBC & Chem 7: 01/17/18 04:02 01/17/18 06:19 Laboratory Results - last 24 hr 01/17/18 01/18/18 01/18/18 20:55 08:03 12:32 POC Glucose 200 H 175 H 159 H 01/18/18 18:03 POC Glucose 113 H Microbiology 01/13/18 12:25 Blood - Peripheral Aerobic Blood Culture - Final No growth in 5 days 01/13/18 12:25 Blood - Peripheral Anaerobic Blood Culture - Final QNS - See aerobic report. 01/13/18 12:20 Blood - Peripheral Aerobic Blood Culture - Final No growth in 5 days 01/13/18 12:20 Blood - Peripheral Anaerobic Blood Culture - Final QNS - See aerobic report. Assessment and Plan - Plan 72 y/o WF admitted for intract BL LE pain. //Right lower extremity cellulitis, left groin and left popliteal wounds, with possible acute on chronic ischemia from PAD -Infectious disease following, continue Cubicin, prior VRE in the past, continue meropenem and Diflucan per infectious disease. -Vascular surgery Dr. 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 Per surgery, does not appear to be amenable to endovascular revascularization with any hope of long-term durability. For second opinion from Dr. Rodrigues. If she cannot be profuse, she will need major amputation. -Continue wound care left groin popliteal once. CT scan of the left thigh showed tissue defect in the left thigh and medial distal left thigh at the level of the knee. Diffuse subcutaneous edema. No abscess. Blood culture remains negative. -continue home fentanyl and gabapentin and oxycodone. -We will defer antiplatelet therapy (home medicine being Plavix) to vascular surgery in case procedure is warranted. = 01/17. Continue antibiotics as per ID. Vascular surgery following. Plan for intervention tomorrow. =01/18. Appreciate vascular surgery intervention. Patient underwent angiogram. Plan as per podiatry. Continue antibiotics as per ID. //PAD -defer Plavix therapy to vasc surgery. -continue home statin; will check CPK once weekly since pt is started on dapto given risk of myositis. = 01/17 vascular surgery procedure tomorrow. =01/18. Status post angiogram. Appreciate vascular surgery assistance. //Hypertension-controlled, Coreg, //Diabetes type I Patient wants to use her home insulin pump. -pt will use insulin pump. Sliding scale as needed. //Nephrology End-stage renal disease, dialysis Tuesday. -dialysis per nephrology. //Constipation Chronic. -Continue Metamucil per pt request. //Chronic pain The pt is on hospice as an outpt. -pain control. No mechanical DVT prophylaxis due to lower extremity conditions, heparin for DVT prophylaxis. Discharge Planning: When cleared by ID, podiatry,vascular surgery.
[2018-01-18] MEDS: Psyllium Husk SF 3.4 GM in 5.8 GM Packet PO SCH (18:57)
[2018-01-18] MEDS: DAPTOmycin Inj 600 MG in Sodium Chlor 0.9% Inj 100 ML IV.SIG SCH (19:08)
[2018-01-18] MEDS: Ezetimibe 10 MG Tablet PO SCH (19:09)
--- NOTE | 2018-01-18 19:41 | P.PNNP ---
Subjective Interval history: Patient was seen post hemodialysis and also post angiogram with angioplasty earlier today. Slightly lethargic. by bedside. Physical Exam Vital signs: Vital Signs 01/17/18 20:00 01/18/18 00:00 01/18/18 01:56 Temperature 97.7 F 97.8 F Pulse Rate 52 L 52 L 53 L Respiratory Rate 16 16 Blood Pressure 121/52 L 103/47 L Pulse Oximetry 95 96 01/18/18 04:00 01/18/18 08:00 01/18/18 09:37 Temperature 97.9 F 97.0 F L Pulse Rate 53 L 54 L 52 L Respiratory Rate 17 16 Blood Pressure 114/53 L 112/52 L Pulse Oximetry 96 96 01/18/18 12:05 01/18/18 12:20 01/18/18 12:35 Temperature 98.0 F Pulse Rate 54 L 54 L 54 L Respiratory Rate 20 20 18 Blood Pressure 113/49 L 126/51 L 100/44 L Pulse Oximetry 100 100 95 01/18/18 13:00 01/18/18 14:00 Temperature Pulse Rate 52 L 51 L Respiratory Rate 18 20 Blood Pressure 101/48 L 105/51 L Pulse Oximetry 95 95 Intake & Output 01/18/18 01/18/18 01/19/18 06:59 18:59 06:59 Intake Total 700 / 700 400 / 400 Output Total 5 / 5 Balance 700 / 700 395 / 395 Weight 102 kg Intake: IV 100 / 100 0 / 0 Heparin/NS PF Inj 500 ML @ 0 0 / 0 mls/hr .ROUTE .[facility] Rx#: [id number] Diflucan 200 mg Premix Bag 100 100 / 100 ML @ 100 mls/hr IV.SIG Q24H [facility] Rx#:[id number] Oral 600 / 600 Anesthesia Amount 400 / 400 Output: Estimated Blood Loss 5 / 5 Other: # Voids 1 Date of Last Bowel Movement 01/17/18 01/17/18 Narrative: GENERAL: Patient not in respiratory distress. SKIN: Warm and dry. Lateral aspect of the left thigh is erythematous and tender with brawny edema. HEAD: Normocephalic. EYES: No scleral icterus. No injection or drainage. NECK: Supple, trachea midline. No JVD or lymphadenopathy. CARDIOVASCULAR: Regular rate and rhythm without murmurs, gallops, or rubs. RESPIRATORY: Breath sounds equal bilaterally. No accessory muscle use. GASTROINTESTINAL: Abdomen soft, non-tender, nondistended. MUSCULOSKELETAL:, toes right foot dusky. BACK: Nontender without obvious deformity. No CVA tenderness. Assessment and Plan - Assessment (1) ESRD (end stage renal disease) on dialysis Code(s): N18.6 - End stage renal disease; Z99.2 - Dependence on renal dialysis Status: Acute Plan: HD completed today. Next hemodialysis tentatively Tuesday. Epogen with HD. Patient's overall condition has been declining over the last several weeks. Patient still with significant comorbidities and increasing debilitation. Prognosis guarded. Gadolinium is contraindicated. Medication should be adjusted for the patient's end-stage renal disease when indicated. (2) Peripheral vascular disease of lower extremity with ulceration Code(s): I73.9 - Peripheral vascular disease, unspecified; L97.909 - Non- pressure chronic ulcer of unspecified part of unspecified lower leg with unspecified severity Status: Acute Plan: Patient now status post angioplasty of left femoropopliteal today. Vascular surgery to discuss options regarding right lower extremity i.e. bypass versus amputation. (3) Cellulitis Code(s): L03.90 - Cellulitis, unspecified Status: Acute Qualifiers: Site of cellulitis: extremity Site of cellulitis of extremity: lower extremity Laterality: left Qualified Code(s): L03.116 - Cellulitis of left lower limb Plan: Infectious disease has raised the possibility of calciphylaxis involving the upper lateral left thigh. Patient does not have a history of hypercalcemia or markedly elevated phosphate levels in the past and the PTH level has been within desired range for end- stage renal disease. However the patient does have tenderness involving the left lateral thigh and she is diabetic which is a risk factor for development of calciphylaxis in the setting of end-stage renal disease. Definitive diagnosis however I believe would require skin punch biopsy since there is some question as to the diagnosis. I discussed with the and the patient indications for punch biopsy as well as risks associated with doing same including risk of nonhealing. I also discussed with them off label treatment of calciphylaxis with sodium thiosulfate including duration of therapy and potential complications associated with same. I did explain to them however the calciphylaxis would not account for her peripheral vascular disease in the calciphylaxis is a pathology that involves microvasculature associated with painful skin lesions and poor wound healing. Currently however her wound appears to be healing quite well. The patient indicated that she would like to think about it and will make a decision tomorrow regarding punch biopsy. (4) DM (diabetes mellitus) Code(s): E11.9 - Type 2 diabetes mellitus without complications Status: Acute Plan: Mgmt per primary
[2018-01-19] MEDS: Levothyroxine 125 MCG Tablet PO SCH (05:27)
--- NOTE | 2018-01-19 08:15 | P.PNIM ---
Subjective Interval history: Patient says she is feeling all right. Denies any chest pain or shortness of breath. Reports pain is controlled. Physical Exam Vital signs: Vital Signs 01/18/18 09:37 01/18/18 12:05 01/18/18 12:20 Temperature 98.0 F Pulse Rate 52 L 54 L 54 L Respiratory Rate 20 20 Blood Pressure 113/49 L 126/51 L Pulse Oximetry 100 100 01/18/18 12:35 01/18/18 13:00 01/18/18 14:00 Temperature Pulse Rate 54 L 52 L 51 L Respiratory Rate 18 18 20 Blood Pressure 100/44 L 101/48 L 105/51 L Pulse Oximetry 95 95 95 01/18/18 20:00 01/18/18 20:40 01/19/18 00:00 Temperature 97.2 F L 97.7 F Pulse Rate 57 L 81 Respiratory Rate 15 15 Blood Pressure 105/46 L 124/53 L Pulse Oximetry 97 95 91 L 01/19/18 04:00 Temperature 97.8 F Pulse Rate 57 L Respiratory Rate 16 Blood Pressure 102/43 L Pulse Oximetry 93 L Intake & Output 01/18/18 01/19/18 01/19/18 18:59 06:59 18:59 Intake Total 400 / 400 1200 / 1200 Output Total 5 / 5 Balance 395 / 395 1200 / 1200 Weight 104.2 kg Intake: IV 0 / 0 300 / 300 Heparin/NS PF Inj 500 ML @ 0 0 / 0 mls/hr .ROUTE .[facility] Rx#: [id number] Cubicin Inj 600 MG In NS Inj 100 / 100 100 ML @ 200 mls/hr IV.SIG Q48H [facility] Rx#:[id number] Diflucan 200 mg Premix Bag 100 100 / 100 ML @ 100 mls/hr IV.SIG Q24H [facility] Rx#:[id number] Merrem Inj 2,000 MG In NS Inj 100 / 100 100 ML @ 200 mls/hr IV.SIG Q24H [facility] Rx#:[id number] Oral 900 / 900 Anesthesia Amount 400 / 400 Output: Estimated Blood Loss 5 / 5 Other: Date of Last Bowel Movement 01/17/18 01/17/18 Narrative: GENERAL: Patient appears comfortable lying in bed. SKIN: Warm and dry. HEAD: Normocephalic. EYES: No scleral icterus. No injection or drainage. NECK: Supple, trachea midline. No JVD. CARDIOVASCULAR: Regular rate and rhythm without murmurs, gallops, or rubs. RESPIRATORY: Breath sounds equal bilaterally. No accessory muscle use. GASTROINTESTINAL: Abdomen soft, non-tender, nondistended. MUSCULOSKELETAL: Right fifth toe is necrotic as before. Left thigh erythematous with edema. BACK: Nontender without obvious deformity. No CVA tenderness. Results - Labs CBC & Chem 7: 01/17/18 04:02 01/17/18 06:19 Laboratory Results - last 24 hr 01/18/18 01/18/18 01/18/18 12:32 18:03 20:18 POC Glucose 159 H 113 H 142 H 01/19/18 08:00 POC Glucose 214 H Microbiology 01/13/18 12:25 Blood - Peripheral Aerobic Blood Culture - Final No growth in 5 days 01/13/18 12:25 Blood - Peripheral Anaerobic Blood Culture - Final QNS - See aerobic report. 01/13/18 12:20 Blood - Peripheral Aerobic Blood Culture - Final No growth in 5 days 01/13/18 12:20 Blood - Peripheral Anaerobic Blood Culture - Final QNS - See aerobic report. Assessment and Plan - Plan 72 y/o WF admitted for intract BL LE pain. //Right lower extremity cellulitis, left groin and left popliteal wounds, with possible acute on chronic ischemia from PAD -Infectious disease following, continue Cubicin, prior VRE in the past, continue meropenem and Diflucan per infectious disease. -Vascular surgery Dr. 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 Per surgery, does not appear to be amenable to endovascular revascularization with any hope of long-term durability. For second opinion from Dr. Rodrigues. If she cannot be profuse, she will need major amputation. -Continue wound care left groin popliteal once. CT scan of the left thigh showed tissue defect in the left thigh and medial distal left thigh at the level of the knee. Diffuse subcutaneous edema. No abscess. Blood culture remains negative. -continue home fentanyl and gabapentin and oxycodone. -We will defer antiplatelet therapy (home medicine being Plavix) to vascular surgery in case procedure is warranted. = 01/17. Continue antibiotics as per ID. Vascular surgery following. Plan for intervention tomorrow. =01/18. Appreciate vascular surgery intervention. Patient underwent angiogram. Plan as per podiatry. Continue antibiotics as per ID. = 01/19. Status post bilateral revascularization procedure. Continue antibiotics as per infectious disease. Appreciate vascular surgery assistance. //PAD -defer Plavix therapy to vasc surgery. -continue home statin; will check CPK once weekly since pt is started on dapto given risk of myositis. = 01/17 vascular surgery procedure tomorrow. =01/18. Status post angiogram. Appreciate vascular surgery assistance. //Hypertension-controlled, Coreg, //Diabetes type I Patient wants to use her home insulin pump. -pt will use insulin pump. Sliding scale as needed. //Nephrology End-stage renal disease, dialysis Tuesday. -dialysis per nephrology. //Constipation Chronic. -Continue Metamucil per pt request. //Chronic pain The pt is on hospice as an outpt. -pain control. No mechanical DVT prophylaxis due to lower extremity conditions, heparin for DVT prophylaxis. Discharge Planning: When cleared by ID, vascular surgery.
[2018-01-19] MEDS: Minocycline 100 MG Capsule PO SCH ×2 (09:51→21:25)
[2018-01-19] MEDS: Heparin - SQ 10,000 UNITS/ML Vial SQ SCH ×2 (09:51→21:21)
[2018-01-19] MEDS: Famotidine 20 MG Tablet PO SCH ×2 (09:51→21:25)
[2018-01-19] MEDS: Carvedilol 6.25 MG Tablet PO SCH ×2 (09:51→21:22)
[2018-01-19] MEDS: Insulin NovoLOG Aspart Correctional Sugar Inj SQ SCH ×4 (09:52→21:22)
[2018-01-19] MEDS: Gabapentin 100 MG Capsule PO SCH ×2 (09:55→21:27)
[2018-01-19] MEDS: Collagenase Oint 30 GM Tube TOPICAL SCH (09:57)
[2018-01-19 10:24] LABS: Hematocrit 32.7 % (35.0-46.0); Mean Corpuscular Hemoglobin 29.3 pg (27.0-34.0); Mean Corpuscular Volume 95.2 fL (80.0-100.0); Mean Platelet Volume 7.7 fL (7.0-11.0); Platelet Count 286 th/mm3 (150-450); Red Blood Count 3.43 mil/mm3 (4.00-5.30); Red Cell Distribution Width 21.4 % (11.6-17.2); White Blood Count 11.5 th/mm3 (4.0-11.0)
[2018-01-19 10:25] LABS: Mean Corpuscular HGB Conc 30.8 % (32.0-36.0)
[2018-01-19 10:59] LABS: Calcium 9.4 mg/dL (8.5-10.1); Carbon Dioxide 28.6 meq/L (21.0-32.0); Magnesium 2.1 mg/dL (1.5-2.5); Phosphorus 4.4 mg/dL (2.5-4.9); Potassium 4.3 meq/L (3.5-5.1)
[2018-01-19 11:25] LABS: Eosinophils 9 % (0-4); Lymphocytes 3 % (9-44); Monocytes 10 % (0-8); Myelocytes 1 % (0-0); Platelet Estimate Normal (Normal); Platelet Morphology Normal (Normal)
--- NOTE | 2018-01-19 13:53 | P.PNID ---
Subjective Remarks: Patient has undergone vascular procedure yesterday. She is somnolent but arousable. Her is at bedside and he reports that she was very alert at breakfast time this morning. No fever. Reports that she has no pain at this time. The necrosis at the right fifth toe remains the same. HISTORY OF PRESENT ILLNESS: This is a 72-year-old white female who is known to me from previous hospitalizations. The patient was last admitted for a dehisced wound at the left tibia from a vascular procedure at the end of November. She had Pseudomonas aeruginosa cultured from the leg and also Klebsiella pneumoniae. She was discharged on cefepime, which she was receiving at hemodialysis center. She developed redness of her right foot and it became progressively worse with increased erythema and purplish discoloration at the right fifth toe and at the base of the fifth toe as well. Antibiotics: Meropenem Daptomycin Diflucan Doxycycline. 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 Allergies/Adverse Reactions: Allergies amlodipine Allergy (Severe, Verified 12/22/17 22:56) Edema, Generalized adhesive tape Allergy (Unknown, Verified 12/22/17 22:56) Generalized Itching Redness Objective Vital Signs 01/18/18 14:00 01/18/18 20:00 01/18/18 20:40 Temperature 97.2 F L Pulse Rate 51 L 57 L Respiratory Rate 20 15 Blood Pressure 105/51 L 105/46 L Pulse Oximetry 95 97 95 01/19/18 00:00 01/19/18 04:00 01/19/18 08:00 Temperature 97.7 F 97.8 F 97.7 F Pulse Rate 81 57 L 56 L Respiratory Rate 15 16 20 Blood Pressure 124/53 L 102/43 L 118/74 Pulse Oximetry 91 L 93 L 96 01/19/18 12:00 Temperature 97.4 F L Pulse Rate 88 Respiratory Rate 18 Blood Pressure 117/53 L Pulse Oximetry 92 L Intake & Output 01/18/18 01/19/18 01/19/18 18:59 06:59 18:59 Intake Total 400 / 400 1200 / 1200 Output Total / Balance 395 / 395 1200 / 1200 Weight 104.2 kg Intake: IV 0 / 0 300 / 300 Heparin/NS PF Inj 500 ML @ 0 0 / 0 mls/hr .ROUTE [facility] Rx#: [id number] Cubicin Inj 600 MG In NS Inj 100 / 100 100 ML @ 200 mls/hr IV.SIG Q48H [facility] Rx#:[id number] Diflucan 200 mg Premix Bag 100 100 / 100 ML @ 100 mls/hr IV.SIG Q24H [facility] Rx#:[id number] Merrem Inj 2,000 MG In NS Inj 100 / 100 100 ML @ 200 mls/hr IV.SIG Q24H [facility] Rx#:[id number] Oral 900 / 900 Anesthesia Amount 400 / 400 Output: Estimated Blood Loss Other: Date of Last Bowel Movement 01/17/18 01/17/18 01/13/18 12:25 Blood - Peripheral Aerobic Blood Culture - Final No growth in 5 days 01/13/18 12:25 Blood - Peripheral Anaerobic Blood Culture - Final QNS - See aerobic report. 01/13/18 12:20 Blood - Peripheral Aerobic Blood Culture - Final No growth in 5 days 01/13/18 12:20 Blood - Peripheral Anaerobic Blood Culture - Final QNS - See aerobic report. Lab - Hematology Results 01/19/18 06:53 WBC 11.5 H RBC 3.43 L Hgb 10.0 L Hct 32.7 L MCV 95.2 MCH 29.3 MCHC 30.8 L RDW 21.4 H Plt Count 286 MPV 7.7 Prelim Diff (Auto) Manual diff required WBC Differential Manual diff final Seg Neuts % (Manual) 70 Band Neuts % (Manual) 7 H Lymphocytes % (Manual) 3 L Monocytes % (Manual) 10 H Eosinophils % (Manual) 9 H Myelocytes % (Man) 1 H Abs Neuts (Manual) 9.0 H Differential Comment . Platelet Estimate Normal Platelet Morphology Normal Lab - Chemistry Results 01/17/18 01/17/18 01/18/18 16:36 20:55 08:03 Sodium Potassium Chloride Carbon Dioxide Anion Gap BUN Creatinine Estimated GFR POC Glucose 241 H 200 H 175 H Random Glucose Calcium Phosphorus Magnesium Total Creatine Kinase Albumin 01/18/18 01/18/18 01/18/18 12:32 18:03 20:18 Sodium Potassium Chloride Carbon Dioxide Anion Gap BUN Creatinine Estimated GFR POC Glucose 159 H 113 H 142 H Random Glucose Calcium Phosphorus Magnesium Total Creatine Kinase Albumin 01/19/18 01/19/18 01/19/18 06:53 08:00 11:58 Sodium 134 L Potassium 4.3 Chloride 93 L Carbon Dioxide 28.6 Anion Gap 12 BUN 25 H Creatinine 3.93 H Estimated GFR 11 L POC Glucose 214 H 173 H Random Glucose 165 H Calcium 9.4 Phosphorus 4.4 Magnesium 2.1 Total Creatine Kinase 42 Albumin 2.0 L Imaging: ITS Impressions Femur CT 01/12/18 00:00 CONCLUSION: 1. Soft tissue defect in the anterior upper left thigh and the medial distal left thigh at the level of the knee. 2. Diffuse subcutaneous soft tissue edema. No drainable abscess identified. Aorta w/Runoff CTA 01/15/18 00:00 CONCLUSION: 1. Diffuse atherosclerotic disease with moderate distal aortic stenosis at the bifurcation. 2. Bilateral moderate common iliac artery stenosis, likely overestimated due to degree of calcified plaque. 3. Left femoral to above-knee popliteal artery bypass graft with critical stenosis of the proximal anastomosis and mild stenosis of the distal anastomosis. 4. Diffuse right SFA disease with tandem moderate stenoses in the proximal thigh and tandem severe stenoses in the distal thigh. Diffuse right popliteal artery disease. 5. Limited single vessel runoff on the right. The peroneal artery with reconstitution of the anterior tibial artery in the distal calf. 6. Limited two-vessel runoff on the left. Diffusely diseased posterior tibial and peroneal arteries. 7. Stable 10 mm nodule in the right lung base. Follow-up examination in 3-6 months is again recommended to document stability. 8. Stable additional ancillary findings, as above. Extremity Arterial Study 01/15/18 00:00 CONCLUSION: Findings of severe disease on the right side with nondiagnostic evaluation on the left. CT angiography of the abdominal aorta and lower extremities is recommended for further evaluation if clinically indicated. Head CT 01/16/18 00:00 CONCLUSION: 1. No acute findings in the brain. . Physical Exam: GENERAL: No acute distress. Awake, slow verbal responses. HEENT: Head is atraumatic. Extraocular movements grossly intact. Pupils reactive to light. No icterus. No conjunctival erythema. Oropharynx mucosa moist. NECK: Supple without adenopathy. LUNGS: Clear to auscultation. HEART: Regular S1, S2, without murmurs, rubs or gallops. ABDOMEN: Bowel sounds present, obese, soft, nontender. EXTREMITIES: The left inner thigh has chronic open ulceration with good granulation tissue, mild erythema at the edge of the lower aspect and some necrosis at the lower aspect near the edge. The left lateral thigh discoloration appears less purple and more red. It is warm to touch. The left inner tibial area where the dehisced surgical incision is located is clean with good granulation tissue. Few specks of necrosis. Redness at the dorsum of the foot at the base of the toes #3 and 4 minimal. The right 5th toe and 5th MTP is dry/gangrenous. SKIN: No diffuse rash. NEUROLOGIC: No gross focal finding. PSYCHIATRIC: calm, and cooperative. Assessment and Plan - Plan IMPRESION: 1. Severe peripheral vascular disease, now involving the right foot with gangrene at the right fifth toe and base of the right fifth toe. 2. Open wound of the left inner tibia which grew out Pseudomonas and Klebsiella, sensitive to cefepime in late November. 3. Chronic open wound of the left inner groin/thigh which has had positive bacteria in the past and was treated with antibiotics and was doing well with dressing changes. 4. Left lateral thigh ecchymosis/cellulitis. 5. Diabetes mellitus. 6. End-stage renal disease on hemodialysis RECOMMENDATIONS: 1. Continue daptomycin. The patient has had VRE in the past in addition to other organisms. 2. Continue Meropenem for gram-negative coverage. 3. Continue Diflucan. Change to p.o. She has also had Rosa in the past. 4. Continue doxycycline. 5. Monitor wounds and clinical response.
--- NOTE | 2018-01-19 17:02 | P.PNVS ---
Subjective Subjective/Hospital Course: PT s/p B LE angiogram (w/ L bypass COMPOSITION PROFESSOR) that showed significant infrageniculate disease. She would need a [employer]WAGE [employer]ANT OPERATOR-AT bypass (with non-autologous tissue) for any attempt at limb salvage and I think this is somewhat of a long shot . I attempted to talk with her again today about this but she is too somnolent to have a meaningful conversation. Her is aware of the options, as is Dr. Brothers who bypassed her LEFT leg. Objective Vital Signs / I&O: Vital Signs 01/18/18 20:00 01/18/18 20:40 01/19/18 00:00 Temperature 97.2 F L 97.7 F Pulse Rate 57 L 81 Respiratory Rate 15 15 Blood Pressure 105/46 L 124/53 L Pulse Oximetry 97 95 91 L 01/19/18 04:00 01/19/18 08:00 01/19/18 12:00 Temperature 97.8 F 97.7 F 97.4 F L Pulse Rate 57 L 56 L 88 Respiratory Rate 16 20 18 Blood Pressure 102/43 L 118/74 117/53 L Pulse Oximetry 93 L 96 92 L 01/19/18 14:39 Temperature Pulse Rate Respiratory Rate Blood Pressure Pulse Oximetry 96 Intake & Output 01/18/18 01/19/18 01/19/18 18:59 06:59 18:59 Intake Total 400 / 400 1200 / 1200 Output Total 5 / 5 Balance 395 / 395 1200 / 1200 Weight 104.2 kg Intake: IV 0 / 0 300 / 300 Heparin/NS PF Inj 500 ML @ 0 0 / 0 mls/hr .ROUTE [facility] Rx#: [id number] Cubicin Inj 600 MG In NS Inj 100 / 100 100 ML @ 200 mls/hr IV.SIG Q48H [facility] Rx#:[id number] Diflucan 200 mg Premix Bag 100 100 / 100 ML @ 100 mls/hr IV.SIG Q24H [facility] Rx#:[id number] Merrem Inj 2,000 MG In NS Inj 100 / 100 100 ML @ 200 mls/hr IV.SIG Q24H [facility] Rx#:[id number] Oral 900 / 900 Anesthesia Amount 400 / 400 Output: Estimated Blood Loss 5 / 5 Other: Date of Last Bowel Movement 01/17/18 01/17/18 Physical Exam: Palpable LEFT PT. R foot with severe forefoot ischemia and lateral / 5th toe dry gangrene Laboratory Results - last 24 hr 01/18/18 01/18/18 01/19/18 18:03 20:18 06:53 WBC 11.5 H RBC 3.43 L Hgb 10.0 L Hct 32.7 L MCV 95.2 MCH 29.3 MCHC 30.8 L RDW 21.4 H Plt Count 286 MPV 7.7 Prelim Diff (Auto) Manual diff required WBC Differential Manual diff final Seg Neuts % (Manual) 70 Band Neuts % (Manual) 7 H Lymphocytes % (Manual) 3 L Monocytes % (Manual) 10 H Eosinophils % (Manual) 9 H Myelocytes % (Man) 1 H Abs Neuts (Manual) 9.0 H Differential Comment . Platelet Estimate Normal Platelet Morphology Normal Sodium Potassium Chloride Carbon Dioxide Anion Gap BUN Creatinine Estimated GFR POC Glucose 113 H 142 H Random Glucose Calcium Phosphorus Magnesium Total Creatine Kinase Albumin 01/19/18 01/19/18 01/19/18 06:53 08:00 11:58 WBC RBC Hgb Hct MCV MCH MCHC RDW Plt Count MPV Prelim Diff (Auto) WBC Differential Seg Neuts % (Manual) Band Neuts % (Manual) Lymphocytes % (Manual) Monocytes % (Manual) Eosinophils % (Manual) Myelocytes % (Man) Abs Neuts (Manual) Differential Comment Platelet Estimate Platelet Morphology Sodium 134 L Potassium 4.3 Chloride 93 L Carbon Dioxide 28.6 Anion Gap 12 BUN 25 H Creatinine 3.93 H Estimated GFR 11 L POC Glucose 214 H 173 H Random Glucose 165 H Calcium 9.4 Phosphorus 4.4 Magnesium 2.1 Total Creatine Kinase 42 Albumin 2.0 L Assessment and Plan - Assessment (1) Peripheral vascular disease of lower extremity with ulceration Code(s): I73.9 - Peripheral vascular disease, unspecified; L97.909 - Non- pressure chronic ulcer of unspecified part of unspecified lower leg with unspecified severity Status: Acute - Plan She has the unfortunate combination of PAD and ESRD; very challenging revascularization options. I would like her opinion and guidance but she is at present too somnolent as she was yesterday. The seems to understand the challenges of such a revascularization. The LEFT leg bypass is patent after COMPOSITION PROFESSOR yesterday. 1. continue wound care 2. Limit narcotics 3. I will continue to engage the patient about primary amputation vs fem-AT. 4. Aggressive PT. If she is unable to use her legs then a bypass would not be considered. 5. Consult podiatry for foot wound. The toe is mummified and will need amputation if a bypass is successful. Mukesh Rodrigues MD FACS [employer] piping engineer [facility] - Heart and Vascular Surgery at [place] [id number] [phone]
--- NOTE | 2018-01-19 18:22 | P.PNNP ---
Subjective Interval history: Patient lying in bed. Not in respiratory distress. A bit more alert today. was by bedside. Physical Exam Vital signs: Vital Signs 01/18/18 20:00 01/18/18 20:40 01/19/18 00:00 Temperature 97.2 F L 97.7 F Pulse Rate 57 L 81 Respiratory Rate 15 15 Blood Pressure 105/46 L 124/53 L Pulse Oximetry 97 95 91 L 01/19/18 04:00 01/19/18 08:00 01/19/18 12:00 Temperature 97.8 F 97.7 F 97.4 F L Pulse Rate 57 L 56 L 88 Respiratory Rate 16 20 18 Blood Pressure 102/43 L 118/74 117/53 L Pulse Oximetry 93 L 96 92 L 01/19/18 14:39 01/19/18 16:00 Temperature 97.7 F Pulse Rate 58 L Respiratory Rate 18 Blood Pressure 129/57 L Pulse Oximetry 96 96 Intake & Output 01/18/18 01/19/18 01/19/18 18:59 06:59 18:59 Intake Total 400 / 400 1200 / 1200 420 / 420 Output Total 5 / 5 Balance 395 / 395 1200 / 1200 420 / 420 Weight 104.2 kg Intake: IV 0 / 0 300 / 300 Heparin/NS PF Inj 500 ML @ 0 0 / 0 mls/hr .ROUTE .[facility] Rx#: [id number] Cubicin Inj 600 MG In NS Inj 100 / 100 100 ML @ 200 mls/hr IV.SIG Q48H [facility] Rx#:[id number] Diflucan 200 mg Premix Bag 100 100 / 100 ML @ 100 mls/hr IV.SIG Q24H [facility] Rx#:[id number] Merrem Inj 2,000 MG In NS Inj 100 / 100 100 ML @ 200 mls/hr IV.SIG Q24H [facility] Rx#:[id number] Oral 900 / 900 420 / 420 Anesthesia Amount 400 / 400 Output: Estimated Blood Loss 5 / 5 Other: # Voids 0 Date of Last Bowel Movement 01/17/18 01/17/18 # Bowel Movements 0 Narrative: GENERAL: Patient appears comfortable lying in bed. SKIN: Warm and dry. HEAD: Normocephalic. EYES: No scleral icterus. No injection or drainage. NECK: trachea midline. No JVD. CARDIOVASCULAR: Regular rate and rhythm without murmurs, gallops, or rubs. RESPIRATORY: Breath sounds equal bilaterally. No accessory muscle use. GASTROINTESTINAL: Abdomen soft, non-tender, nondistended. Assessment and Plan - Assessment (1) ESRD (end stage renal disease) on dialysis Code(s): N18.6 - End stage renal disease; Z99.2 - Dependence on renal dialysis Status: Acute Plan: Next hemodialysis tentatively Tuesday. Epogen with HD. Patient's overall condition has been declining over the last several weeks. Patient still with significant comorbidities and increasing debilitation. Prognosis guarded. Gadolinium is contraindicated. Medication should be adjusted for the patient's end-stage renal disease when indicated. (2) Peripheral vascular disease of lower extremity with ulceration Code(s): I73.9 - Peripheral vascular disease, unspecified; L97.909 - Non- pressure chronic ulcer of unspecified part of unspecified lower leg with unspecified severity Status: Acute Plan: Patient now status post angioplasty of left femoropopliteal today. Vascular surgery to discuss options regarding right lower extremity i.e. bypass versus amputation. (3) Cellulitis Code(s): L03.90 - Cellulitis, unspecified Status: Acute Qualifiers: Site of cellulitis: extremity Site of cellulitis of extremity: lower extremity Laterality: left Qualified Code(s): L03.116 - Cellulitis of left lower limb Plan: Infectious disease has raised the possibility of calciphylaxis involving the upper lateral left thigh. I did explain to them however the calciphylaxis would not account for her peripheral vascular disease in the calciphylaxis is a pathology that involves microvasculature associated with painful skin lesions and poor wound healing. The patient and indicated to me today that they were agreeable to proceed with a skin punch biopsy to determine if there is any pathological indication of the patient does indeed have calciphylaxis. It does appear to be the case proceed with sodium thiosulfate therapy with dialysis. I discussed with them again potential side effects of sodium thiosulfate therapy as well as potential benefits i.e possible improvement in wound healing as well as relief of pain. They are aware that this will not however improve her peripheral arterial disease. Quality of life issues were also discussed with patient and . I suspect that the patient's quality of life as well as prognosis regardless of aggressiveness of care will likely be poor. I spoke with Dr. Brothers. He indicated that he would be leaving town but he will discuss the situation with Dr. Rodrigues with the possibility of proceeding to punch skin biopsy for possible calciphylaxis either this week or next week. The patient indicated that she would like to think about it and will make a decision tomorrow regarding punch biopsy. (4) DM (diabetes mellitus) Code(s): E11.9 - Type 2 diabetes mellitus without complications Status: Acute Plan: Mgmt per primary
[2018-01-19] MEDS: Ezetimibe 10 MG Tablet PO SCH (18:28)
[2018-01-19] MEDS: Psyllium Husk SF 3.4 GM in 5.8 GM Packet PO SCH (18:28)
[2018-01-20] MEDS: Levothyroxine 125 MCG Tablet PO SCH (06:10)
--- NOTE | 2018-01-20 09:06 | P.PNIM ---
Subjective Interval history: Patient says she is feeling right. Denies any chest pain or shortness of breath. Denies nausea or vomiting. Physical Exam Vital signs: Vital Signs 01/19/18 12:00 01/19/18 14:39 01/19/18 16:00 Temperature 97.4 F L 97.7 F Pulse Rate 88 58 L Respiratory Rate 18 18 Blood Pressure 117/53 L 129/57 L Pulse Oximetry 92 L 96 96 01/19/18 20:00 01/19/18 21:37 01/20/18 00:00 Temperature 97.8 F 98.6 F Pulse Rate 58 L 78 Respiratory Rate 17 18 19 Blood Pressure 106/46 L 119/53 L Pulse Oximetry 94 L 93 L 01/20/18 04:00 Temperature 97.6 F Pulse Rate 60 Respiratory Rate 16 Blood Pressure 119/52 L Pulse Oximetry 94 L Intake & Output 01/19/18 01/20/18 01/20/18 18:59 06:59 18:59 Intake Total 420 / 420 700 / 700 Balance 420 / 420 700 / 700 Weight 105 kg Intake: IV 200 / 200 Diflucan 200 mg Premix Bag 100 100 / 100 ML @ 100 mls/hr IV.SIG Q24H [facility] Rx#:[id number] Merrem Inj 2,000 MG In NS Inj 100 / 100 100 ML @ 200 mls/hr IV.SIG Q24H [facility] Rx#:[id number] Oral 420 / 420 500 / 500 Other: # Voids 0 Date of Last Bowel Movement 01/17/18 01/18/18 # Bowel Movements 0 Narrative: GENERAL: Patient lying in bed. Appears comfortable. Awake, alert SKIN: Warm and dry. HEAD: Normocephalic. EYES: No scleral icterus. No injection or drainage. NECK: Supple, trachea midline. No JVD CARDIOVASCULAR: Regular rate and rhythm without murmurs, gallops, or rubs. RESPIRATORY: Breath sounds equal bilaterally. No accessory muscle use. GASTROINTESTINAL: Abdomen soft, non-tender, nondistended. MUSCULOSKELETAL: No edema. Right fifth toe dry gangrene. Minimal surrounding erythema. BACK: Nontender without obvious deformity. No CVA tenderness. Results - Labs CBC & Chem 7: 01/19/18 06:53 01/19/18 06:53 Laboratory Results - last 24 hr 01/19/18 01/19/18 01/19/18 06:53 06:53 11:58 WBC 11.5 H RBC 3.43 L Hgb 10.0 L Hct 32.7 L MCV 95.2 MCH 29.3 MCHC 30.8 L RDW 21.4 H Plt Count 286 MPV 7.7 Prelim Diff (Auto) Manual diff required WBC Differential Manual diff final Seg Neuts % (Manual) 70 Band Neuts % (Manual) 7 H Lymphocytes % (Manual) 3 L Monocytes % (Manual) 10 H Eosinophils % (Manual) 9 H Myelocytes % (Man) 1 H Abs Neuts (Manual) 9.0 H Differential Comment . Platelet Estimate Normal Platelet Morphology Normal Sodium 134 L Potassium 4.3 Chloride 93 L Carbon Dioxide 28.6 Anion Gap 12 BUN 25 H Creatinine 3.93 H Estimated GFR 11 L POC Glucose 173 H Random Glucose 165 H Calcium 9.4 Phosphorus 4.4 Magnesium 2.1 Total Creatine Kinase 42 Albumin 2.0 L 01/19/18 01/19/18 01/20/18 17:09 20:54 08:23 WBC RBC Hgb Hct MCV MCH MCHC RDW Plt Count MPV Prelim Diff (Auto) WBC Differential Seg Neuts % (Manual) Band Neuts % (Manual) Lymphocytes % (Manual) Monocytes % (Manual) Eosinophils % (Manual) Myelocytes % (Man) Abs Neuts (Manual) Differential Comment Platelet Estimate Platelet Morphology Sodium Potassium Chloride Carbon Dioxide Anion Gap BUN Creatinine Estimated GFR POC Glucose 201 H 141 H 186 H Random Glucose Calcium Phosphorus Magnesium Total Creatine Kinase Albumin Assessment and Plan - Plan 72 y/o WF admitted for intract BL LE pain. //Right lower extremity cellulitis, left groin and left popliteal wounds, with possible acute on chronic ischemia from PAD -Infectious disease following, continue Cubicin, prior VRE in the past, continue meropenem and Diflucan per infectious disease. -Vascular surgery Dr. 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 Per surgery, does not appear to be amenable to endovascular revascularization with any hope of long-term durability. For second opinion from Dr. Rodrigues. If she cannot be profuse, she will need major amputation. -Continue wound care left groin popliteal once. CT scan of the left thigh showed tissue defect in the left thigh and medial distal left thigh at the level of the knee. Diffuse subcutaneous edema. No abscess. Blood culture remains negative. -continue home fentanyl and gabapentin and oxycodone. -We will defer antiplatelet therapy (home medicine being Plavix) to vascular surgery in case procedure is warranted. = 01/17. Continue antibiotics as per ID. Vascular surgery following. Plan for intervention tomorrow. =01/18. Appreciate vascular surgery intervention. Patient underwent angiogram. Plan as per podiatry. Continue antibiotics as per ID. = 01/19. Status post bilateral revascularization procedure. Continue antibiotics as per infectious disease. Appreciate vascular surgery assistance. = 01/20. Appreciate vascular surgery assistance. Will consult podiatry as per vascular surgery recommendations for right fifth toe resection. //PAD -defer Plavix therapy to vasc surgery. -continue home statin; will check CPK once weekly since pt is started on dapto given risk of myositis. = 01/17 vascular surgery procedure tomorrow. =01/18. Status post angiogram. Appreciate vascular surgery assistance. = 01/20. Appreciate vascular surgery assistance. //Hypertension-controlled, Coreg, //Diabetes type I Patient wants to use her home insulin pump. -pt will use insulin pump. Sliding scale as needed. //Nephrology End-stage renal disease, dialysis Tuesday. -dialysis per nephrology. //Constipation Chronic. -Continue Metamucil per pt request. //Chronic pain The pt is on hospice as an outpt. -pain control. No mechanical DVT prophylaxis due to lower extremity conditions, heparin for DVT prophylaxis. Discharge Planning: When cleared by ID, vascular surgery, podiatry.
[2018-01-20] MEDS: Minocycline 100 MG Capsule PO SCH ×2 (09:25→22:09)
[2018-01-20] MEDS: Heparin - SQ 10,000 UNITS/ML Vial SQ SCH ×2 (09:25→22:10)
[2018-01-20] MEDS: Famotidine 20 MG Tablet PO SCH ×2 (09:26→22:09)
[2018-01-20] MEDS: Carvedilol 6.25 MG Tablet PO SCH ×2 (09:26→22:09)
[2018-01-20] MEDS: Insulin NovoLOG Aspart Correctional Sugar Inj SQ SCH ×4 (09:26→22:12)
[2018-01-20] MEDS: Gabapentin 100 MG Capsule PO SCH ×2 (09:26→22:11)
[2018-01-20] MEDS ORDERED: Senna/Docusate Sodium 8.6/50 MG Tablet PO ONE (10:00)
--- NOTE | 2018-01-20 12:11 | P.DIET ---
Nutritional Evaluation Type of nutrition evaluation: follow-up Nutrition consult regarding: Diet Evaluation (MDC for Supplement to Oral Intake) Screening comments: 01/14 MDC for supplement to oral intake Subjective Subjective Comments: Pt visited after breakfast today. Meal tray still in room w/approx. 75% po intake. Pt says breakfast is okay and adds there arent many menu choices. Pt does not care for the Nepro flavors she has received; receptive to trying another flavor. Objective - Diagnosis Limb Ischemia, LLE Infection - Objective [place] body weight: 61.8 kg % IBW: 166 (CZM=002#) Body Weight Used for Calculations: IBW (61.4kg) Energy Needs - Lower Range (kCal/kg): 30 Energy Needs - Upper Range (kCal/kg): 35 Lower Limit kCal/kg (kCals): 1,854 Upper Limit kCal/kg (kCals): 2,163 Lower Limit Protein Factor (Grams per Kg): 1.2 Upper Limit Protein Factor (Grams per Kg): 1.5 Lower Protein Needs (Protein): 74 Upper Protein Needs (Protein): 93 Dietitian Reviewed in Medical Record: Current diet, Curent medications, Intake & Output, Labs, Medical history, Wound/DTI Diet Order: Renal, 2g Na Wound Care Note: 01/13 WOCN note-reviewed: Unstageable pressure injury to Right heel Objective Comments: PMH Includes: ESRD HD --, high cholesterol, HTN, DM-2 w/Insulin pump inlace Accucheck 186, BUN 25, Creatinine 3.93, estGFR 11 Meds: Lipitor, Zetia, Coreg, Cinacalcet, Catapres, Pepcid, Neurontin, Metamucil Fiber, Synthroid, Renvela LBM 01/18 Feeding - Current PO Supplement Current Supplement: Nepro Current Frequency of Supplement: Twice daily Current kCals Provided by Supplement: 425 Current Protein Provided by Supplement: 19 Assessment Assessment: Pt continues to be at nutritional risk r/t diagnosis, increased needs for wounds and ESRD on hemodialysis --. Pt receiving hospice services at home prior to this admission. Variable po intake 25% to 75% for meals. Current diet is a Renal 2g Na diet. Rec diet change to Cardiac to allow for increased menu selections. Continue Nepro supplement BID w/a different flavor-monitor for pt acceptance. Labs, electrolytes, fluids reviewed. Wt changes noted. Dietitian following. Recommendations: 1. Rec diet change to Cardiac to allow for increased menu selections 2. Continue Nepro supplement BID w/a different flavor-monitor for pt acceptance 3. Dietitian following Dietitian to Monitor: Lab values, Electrolytes, Renal labs, Glucose level, Supplement acceptance, Intake & Output, Diet tolerance, Weight change, PO Intake , Wound/skin status, Medical course
[2018-01-20] MEDS: Collagenase Oint 30 GM Tube TOPICAL SCH (13:01)
--- NOTE | 2018-01-20 15:06 | P.PNNP ---
Subjective Interval history: Seen during HD today. Lethargic. <Ayala Simmons R - Last Filed: 01/20/18 16:26> Physical Exam Vital signs: Vital Signs 01/19/18 16:00 01/19/18 20:00 01/19/18 21:37 Temperature 97.7 F 98.1 F Pulse Rate 58 L 59 L Respiratory Rate 18 20 18 Blood Pressure 129/57 L 120/53 L Pulse Oximetry 96 94 L 01/20/18 00:00 01/20/18 04:00 01/20/18 12:00 Temperature 98.6 F 97.6 F 97.9 F Pulse Rate 78 60 64 Respiratory Rate 19 16 19 Blood Pressure 119/53 L 119/52 L 124/58 L Pulse Oximetry 93 L 94 L 93 L Intake & Output 01/19/18 01/20/18 01/20/18 18:59 06:59 18:59 Intake Total 420 / 420 700 / 700 Balance 420 / 420 700 / 700 Weight 105 kg Intake: IV 200 / 200 Diflucan 200 mg Premix Bag 100 100 / 100 ML @ 100 mls/hr IV.SIG Q24H [facility] Rx#:[id number] Merrem Inj 2,000 MG In NS Inj 100 / 100 100 ML @ 200 mls/hr IV.SIG Q24H [facility] Rx#:[id number] Oral 420 / 420 500 / 500 Other: # Voids 0 Date of Last Bowel Movement 01/17/18 01/18/18 # Bowel Movements 0 - Constitutional no acute distress - Routine Respiratory Exam Present: CTA bilaterally - Routine Cardiovascular Exam Present: RRR, S1, S2 - Routine Extremities Exam Present: edema (1+ hips.) <Ayala Simmons R - Last Filed: 01/20/18 16:26> Vital signs: Vital Signs 01/19/18 20:00 01/19/18 21:37 01/20/18 00:00 Temperature 98.1 F 98.6 F Pulse Rate 59 L 78 Respiratory Rate 20 18 19 Blood Pressure 120/53 L 119/53 L Pulse Oximetry 94 L 93 L 01/20/18 04:00 01/20/18 09:00 01/20/18 12:00 Temperature 97.6 F 97.9 F Pulse Rate 60 64 Respiratory Rate 16 19 Blood Pressure 119/52 L 124/58 L Pulse Oximetry 94 L 95 93 L Intake & Output 01/19/18 01/20/18 01/20/18 18:59 06:59 18:59 Intake Total 420 / 420 700 / 700 Balance 420 / 420 700 / 700 Weight 105 kg Intake: IV 200 / 200 Diflucan 200 mg Premix Bag 100 100 / 100 ML @ 100 mls/hr IV.SIG Q24H [facility] Rx#:[id number] Merrem Inj 2,000 MG In NS Inj 100 / 100 100 ML @ 200 mls/hr IV.SIG Q24H [facility] Rx#:[id number] Oral 420 / 420 500 / 500 Other: # Voids 0 Date of Last Bowel Movement 01/17/18 01/18/18 # Bowel Movements 0 <Ryan Sampson - Last Filed: 01/20/18 17:05> Assessment and Plan - Assessment (1) ESRD (end stage renal disease) on dialysis Code(s): N18.6 - End stage renal disease; Z99.2 - Dependence on renal dialysis Status: Acute Plan: Seen during HD today. Tolerating session well. But access flow suboptimal. Will ask vascular to assess on Tuesday. Continue MWF HD schedule. Patient's overall condition has been declining over the last several weeks. Patient still with significant comorbidities and increasing debilitation. Prognosis guarded. Gadolinium is contraindicated. Medication should be adjusted for the patient's end-stage renal disease when indicated. (2) Peripheral vascular disease of lower extremity with ulceration Code(s): I73.9 - Peripheral vascular disease, unspecified; L97.909 - Non- pressure chronic ulcer of unspecified part of unspecified lower leg with unspecified severity Status: Acute Plan: Patient now status post angioplasty of left femoropopliteal today. Vascular surgery to discuss options regarding right lower extremity i.e. bypass versus amputation. (3) Cellulitis Code(s): L03.90 - Cellulitis, unspecified Status: Acute Qualifiers: Site of cellulitis: extremity Site of cellulitis of extremity: lower extremity Laterality: left Qualified Code(s): L03.116 - Cellulitis of left lower limb Plan: Infectious disease has raised the possibility of calciphylaxis involving the upper lateral left thigh. I did explain to them however the calciphylaxis would not account for her peripheral vascular disease in the calciphylaxis is a pathology that involves microvasculature associated with painful skin lesions and poor wound healing. The patient and indicated to me today that they were agreeable to proceed with a skin punch biopsy to determine if there is any pathological indication of the patient does indeed have calciphylaxis. If it does appear to be the case, can proceed with sodium thiosulfate therapy with dialysis. I discussed with them again potential side effects of sodium thiosulfate therapy as well as potential benefits i.e possible improvement in wound healing as well as relief of pain. They are aware that this will not however improve her peripheral arterial disease. Quality of life issues were also discussed with patient and . I suspect that the patient's quality of life as well as prognosis regardless of aggressiveness of care will likely be poor. I spoke with Dr. Brothers. He indicated that he would be leaving town but he will discuss the situation with Dr. Rodrigues with the possibility of proceeding to punch skin biopsy for possible calciphylaxis either this week or next week. (4) DM (diabetes mellitus) Code(s): E11.9 - Type 2 diabetes mellitus without complications Status: Acute Plan: Mgmt per primary <Ayala Simmons - Last Filed: 01/20/18 16:26> - Assessment (1) ESRD (end stage renal disease) on dialysis Code(s): N18.6 - End stage renal disease; Z99.2 - Dependence on renal dialysis Status: Acute (2) Peripheral vascular disease of lower extremity with ulceration Code(s): I73.9 - Peripheral vascular disease, unspecified; L97.909 - Non- pressure chronic ulcer of unspecified part of unspecified lower leg with unspecified severity Status: Acute (3) Cellulitis Code(s): L03.90 - Cellulitis, unspecified Status: Acute Qualifiers: Site of cellulitis: extremity Site of cellulitis of extremity: lower extremity Laterality: left Qualified Code(s): L03.116 - Cellulitis of left lower limb (4) DM (diabetes mellitus) Code(s): E11.9 - Type 2 diabetes mellitus without complications Status: Acute - Attending Attestation The exam, history, and the medical decision-making described in the above note were completed with the assistance of the PALety. I reviewed and agree with the findings presented. I attest that I had a [id number] encounter with the patient on the same day, and personally performed and documented my assessment and findings in the medical record. <Ryan Sampson - Last Filed: 01/20/18 17:05>
--- NOTE | 2018-01-20 18:22 | P.PNID ---
Subjective Remarks: Patient is currently undergoing hemodialysis. No complaints. Notes pain at the left thigh. No fever. HISTORY OF PRESENT ILLNESS: This is a 72-year-old white female who is known to me from previous hospitalizations. The patient was last admitted for a dehisced wound at the left tibia from a vascular procedure at the end of November. She had Pseudomonas aeruginosa cultured from the leg and also Klebsiella pneumoniae. She was discharged on cefepime, which she was receiving at hemodialysis center. She developed redness of her right foot and it became progressively worse with increased erythema and purplish discoloration at the right fifth toe and at the base of the fifth toe as well. Antibiotics: Meropenem Daptomycin Diflucan Doxycycline. 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 Allergies/Adverse Reactions: Allergies amlodipine Allergy (Severe, Verified 12/22/17 22:56) Edema, Generalized adhesive tape Allergy (Unknown, Verified 12/22/17 22:56) Generalized Itching Redness Objective Vital Signs 01/19/18 20:00 01/19/18 21:37 01/20/18 00:00 Temperature 98.1 F 98.6 F Pulse Rate 59 L 78 Respiratory Rate 20 18 19 Blood Pressure 120/53 L 119/53 L Pulse Oximetry 94 L 93 L 01/20/18 04:00 01/20/18 09:00 01/20/18 12:00 Temperature 97.6 F 97.9 F Pulse Rate 60 64 Respiratory Rate 16 19 Blood Pressure 119/52 L 124/58 L Pulse Oximetry 94 L 95 93 L Intake & Output 01/19/18 01/20/18 01/20/18 18:59 06:59 18:59 Intake Total 420 / 420 700 / 700 Balance 420 / 420 700 / 700 Weight 105 kg Intake: IV 200 / 200 Diflucan 200 mg Premix Bag 100 100 / 100 ML @ 100 mls/hr IV.SIG Q24H [facility] Rx#:[id number] Merrem Inj 2,000 MG In NS Inj 100 / 100 100 ML @ 200 mls/hr IV.SIG Q24H [facility] Rx#:[id number] Oral 420 / 420 500 / 500 Other: # Voids 0 Date of Last Bowel Movement 01/17/18 01/18/18 # Bowel Movements 0 01/13/18 12:25 Blood - Peripheral Aerobic Blood Culture - Final No growth in 5 days 01/13/18 12:25 Blood - Peripheral Anaerobic Blood Culture - Final QNS - See aerobic report. 01/13/18 12:20 Blood - Peripheral Aerobic Blood Culture - Final No growth in 5 days 01/13/18 12:20 Blood - Peripheral Anaerobic Blood Culture - Final QNS - See aerobic report. Lab - Hematology Results 01/19/18 06:53 WBC 11.5 H RBC 3.43 L Hgb 10.0 L Hct 32.7 L MCV 95.2 MCH 29.3 MCHC 30.8 L RDW 21.4 H Plt Count 286 MPV 7.7 Prelim Diff (Auto) Manual diff required WBC Differential Manual diff final Seg Neuts % (Manual) 70 Band Neuts % (Manual) 7 H Lymphocytes % (Manual) 3 L Monocytes % (Manual) 10 H Eosinophils % (Manual) 9 H Myelocytes % (Man) 1 H Abs Neuts (Manual) 9.0 H Differential Comment . Platelet Estimate Normal Platelet Morphology Normal Lab - Chemistry Results 01/18/18 01/19/18 01/19/18 20:18 06:53 08:00 Sodium 134 L Potassium 4.3 Chloride 93 L Carbon Dioxide 28.6 Anion Gap 12 BUN 25 H Creatinine 3.93 H Estimated GFR 11 L POC Glucose 142 H 214 H Random Glucose 165 H Calcium 9.4 Phosphorus 4.4 Magnesium 2.1 Total Creatine Kinase 42 Albumin 2.0 L 01/19/18 01/19/18 01/19/18 11:58 17:09 20:54 Sodium Potassium Chloride Carbon Dioxide Anion Gap BUN Creatinine Estimated GFR POC Glucose 173 H 201 H 141 H Random Glucose Calcium Phosphorus Magnesium Total Creatine Kinase Albumin 01/20/18 01/20/18 01/20/18 08:23 12:26 14:51 Sodium Potassium Chloride Carbon Dioxide Anion Gap BUN Creatinine Estimated GFR POC Glucose 186 H 197 H 182 H Random Glucose Calcium Phosphorus Magnesium Total Creatine Kinase Albumin Imaging: ITS Impressions Femur CT 01/12/18 00:00 CONCLUSION: 1. Soft tissue defect in the anterior upper left thigh and the medial distal left thigh at the level of the knee. 2. Diffuse subcutaneous soft tissue edema. No drainable abscess identified. Aorta w/Runoff CTA 01/15/18 00:00 CONCLUSION: 1. Diffuse atherosclerotic disease with moderate distal aortic stenosis at the bifurcation. 2. Bilateral moderate common iliac artery stenosis, likely overestimated due to degree of calcified plaque. 3. Left femoral to above-knee popliteal artery bypass graft with critical stenosis of the proximal anastomosis and mild stenosis of the distal anastomosis. 4. Diffuse right SFA disease with tandem moderate stenoses in the proximal thigh and tandem severe stenoses in the distal thigh. Diffuse right popliteal artery disease. 5. Limited single vessel runoff on the right. The peroneal artery with reconstitution of the anterior tibial artery in the distal calf. 6. Limited two-vessel runoff on the left. Diffusely diseased posterior tibial and peroneal arteries. 7. Stable 10 mm nodule in the right lung base. Follow-up examination in 3-6 months is again recommended to document stability. 8. Stable additional ancillary findings, as above. Extremity Arterial Study 01/15/18 00:00 CONCLUSION: Findings of severe disease on the right side with nondiagnostic evaluation on the left. CT angiography of the abdominal aorta and lower extremities is recommended for further evaluation if clinically indicated. Head CT 01/16/18 00:00 CONCLUSION: 1. No acute findings in the brain. . Physical Exam: GENERAL: No acute distress. Awake, slow verbal responses. HEENT: Head is atraumatic. Extraocular movements grossly intact. Pupils reactive to light. No icterus. No conjunctival erythema. Oropharynx mucosa moist. NECK: Supple without adenopathy. LUNGS: Clear to auscultation. HEART: Regular S1, S2, without murmurs, rubs or gallops. ABDOMEN: Bowel sounds present, obese, soft, nontender. EXTREMITIES: The left inner thigh has chronic open ulceration with good granulation tissue, mild erythema at the edge of the lower aspect and some necrosis at the lower aspect near the edge. Lateral left thigh erythema is the same. The left inner tibial area where the dehisced surgical incision is located is clean with good granulation tissue. Few specks of necrosis. Redness at the dorsum of the foot at the base of the toes #3 and 4 minimal. The right 5th toe and 5th MTP is dry/gangrenous. SKIN: No diffuse rash. NEUROLOGIC: No gross focal finding. PSYCHIATRIC: calm, and cooperative. Assessment and Plan - Plan IMPRESION: 1. Severe peripheral vascular disease, now involving the right foot with gangrene at the right fifth toe and base of the right fifth toe. 2. Open wound of the left inner tibia which grew out Pseudomonas and Klebsiella, sensitive to cefepime in late November. 3. Chronic open wound of the left inner groin/thigh which has had positive bacteria in the past and was treated with antibiotics and was doing well with dressing changes. 4. Left lateral thigh ecchymosis/cellulitis. 5. Diabetes mellitus. 6. End-stage renal disease on hemodialysis RECOMMENDATIONS: 1. Continue daptomycin. 2. Continue Meropenem. 3. Continue Diflucan. 4. Continue doxycycline. 5. Monitor wounds and clinical response.
[2018-01-20] MEDS: Psyllium Husk SF 3.4 GM in 5.8 GM Packet PO SCH (18:51)
[2018-01-20] MEDS: DAPTOmycin Inj 600 MG in Sodium Chlor 0.9% Inj 100 ML IV.SIG SCH (18:51)
[2018-01-20] MEDS: Ezetimibe 10 MG Tablet PO SCH (18:53)
--- NOTE | 2018-01-20 19:36 | P.CONPOD ---
History of Present Illness Service: Podiatry Consult date: 01/20/18 Reason for Consult: gangrene right foot, left 5th toe infection Primary Care Provider: Garret Samaniego MD Chief Complaint: Worsening RLE pain History of Present Illness: Patient relates history of pain to right foot that was increasing and color changes to right foot. She says the left little toe is better, and when I told her that bone was sticking out, she said, "Oh." Patient says that she has had a problem there for a long time, but it is not as painful as the right. Review of Systems All other systems reviewed negative except as stated in HPI PMFSH - History History Provided By: Patient, Family Member - Medical History Medical History: Medical History (Last Reviewed 01/17/18 @ 08:20 by Pradeep Dhoerty) Wound of left groin (Acute) ESRD on dialysis (Acute) Insulin pump in place (Acute) Type II diabetes mellitus (Acute) High cholesterol (Acute) HTN (hypertension) (Acute) 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 (Acute) - Surgical History Surgical History: Surgical History (Last Reviewed 01/17/18 @ 08:20 by Pradeep Doherty) History of cholecystectomy (Acute) History of appendectomy (Acute) H/O heart bypass surgery (Acute) - Family History Family History: Family History (Last Reviewed 01/13/18 @ 09:42 by ANTHONY Recinos) Other Cancer Congestive heart failure - Tobacco History Second Hand Smoke Exposure: No Tobacco Use In Past 30 Days: No Smoking Status: Former smoker Tobacco Type: Cigarettes - Alcohol History How Often Do You Have a Drink Containing Alcohol: Never - Substance Use History Substance History: No History of Abuse - Travel History Recent Travel in the [place] Within the Last 8 Weeks: No Recent Travel Out of the Country Within the Last 8 Weeks: No - Immunization History Tetanus Immunization: Unsure Hx Influenza Vaccine This Season: Unable to Assess Medications and Allergies Active Medications: Active Medications Acetaminophen (Tylenol) 650 mg PO UNSCH PRN PRN Reason: SEE LABEL COMMENTS Atorvastatin Calcium (Lipitor) 40 mg PO QPM [facility] Last Admin: 01/20/18 18:52 Dose: Not Given Carvedilol (Coreg) 6.25 mg PO BID [facility] Last Admin: 01/20/18 09:26 Dose: 6.25 mg Chlorhexidine Gluconate (Chlorhexidine 2% Cloth) 3 pack TOPICAL RIBBON INKER [facility] Stop: 01/21/18 04:44 Cinacalcet (Sensipar) 30 mg PO DAILY [facility] Last Admin: 01/20/18 09:25 Dose: 30 mg Clonidine HCl (Catapres) 0.1 mg PO UNSCH PRN PRN Reason: SEE LABEL COMMENTS Collagenase (Santyl Oint) 1 applicatio TOPICAL DAILY [facility] Last Admin: 01/20/18 13:01 Dose: 1 applicatio Dextrose (D50w Vial) 50 ml IV.PUSH UNSCH PRN PRN Reason: PER HYPOGLYCEMIA PROTOCOL Diphenhydramine HCl (Benadryl) 25 mg PO UNSCH PRN PRN Reason: SEE LABEL COMMENTS Ezetimibe (Zetia) 10 mg PO QPM [facility] Last Admin: 01/20/18 18:53 Dose: Not Given Epoetin Dio (Epogen Inj) 10,000 unit IV.PUSH UNSCH PRN PRN Reason: SEE LABEL COMMENTS Last Admin: 01/20/18 17:54 Dose: 10,000 unit Famotidine (Pepcid) 10 mg PO BID [facility] Last Admin: 01/20/18 09:26 Dose: 10 mg Gabapentin (Neurontin) 100 mg PO BID [facility] Last Admin: 01/20/18 09:26 Dose: 100 mg Gelatin (Gelfoam 12 Mm/7 Mm Topical) 1 foam TOPICAL PRN PRN PRN Reason: help stop bleeding from site Last Admin: 01/18/18 18:05 Dose: 1 foam Gentamicin Sulfate (Gentamicin Inj) 20 mg OTHER WITH DIALYSIS PRN PRN Reason: Dwell Gentamycin Lock Glucagon (Glucagon Inj) 1 mg OTHER PRN PRN PRN Reason: for Hypoglycemia Protocol Heparin Sodium (Porcine) (Heparin Inj) 5,000 units SQ Q12H [facility] Last Admin: 01/20/18 09:25 Dose: 5,000 units Heparin Sodium (Porcine) (Heparin Inj) 1,000 units OTHER WITH DIALYSIS PRN PRN Reason: Dwell Heparin to Fill Catheter Heparin Sodium (Porcine) (Heparin Inj) 8,000 units OTHER WITH DIALYSIS PRN PRN Reason: for machine prime Daptomycin 600 mg/ Sodium (Chloride) 100 mls @ 200 mls/hr IV.SIG Q48H [facility] Last Admin: 01/20/18 18:51 Dose: Not Given Meropenem 2,000 mg/ Sodium (Chloride) 100 mls @ 200 mls/hr IV.SIG Q24H [facility] Last Admin: 01/20/18 18:52 Dose: Not Given Fluconazole (Diflucan 200 Mg Premix Bag) 100 mls @ 100 mls/hr IV.SIG Q24H [facility] Last Infusion: 01/19/18 23:55 Dose: Infused Albumin Human (Flexbumin 25% Inj) 100 mls @ 60 mls/hr IV.SIG WITH DIALYSIS PRN PRN Reason: hypotension / volume replace Sodium Chloride (Ns Inj) 1,000 mls @ 0 mls/hr OTHER .Q0M PRN PRN Reason: for prime and rinse back Last Infusion: 01/16/18 19:46 Dose: Infused Sodium Chloride (Ns Inj) 1,000 mls @ 200 mls/hr OTHER .Q5H PRN PRN Reason: for dialyzer flush PRN Sodium Chloride (Ns Inj) 1,000 mls @ 0 mls/hr IV.CONT .Q0M PRN PRN Reason: hypotension / volume replace Lactated Ringer's (Lr 1000 Ml Inj) 1,000 mls @ 30 mls/hr IV.SIG .Q24H [facility] Stop: 01/21/18 04:44 Last Admin: 01/20/18 06:04 Dose: Not Given Sodium Chloride (Ns Inj) 500 mls @ 30 mls/hr IV.SIG .Q10H [facility] Stop: 01/21/18 04:44 Insulin Aspart (Novolog Insulin Correctional Sugar Inj) 0 unit SQ ACHS [facility]; Protocol Last Admin: 01/20/18 18:51 Dose: Not Given Levothyroxine Sodium (Synthroid) 125 mcg PO DAILY@0600 [facility] Last Admin: 01/20/18 06:10 Dose: 125 mcg Mannitol (Mannitol Inj) 12.5 gm IV.PUSH UNSCH PRN PRN Reason: hypotension / volume replace Minocycline HCl (Minocin) 100 mg PO Q12HR [facility] Last Admin: 01/20/18 09:25 Dose: 100 mg Nitroglycerin (Nitrostat Sl) 0.4 mg SL Q5M PRN PRN Reason: CHEST PAIN Oxycodone HCl (Roxicodone) 10 mg PO Q8H PRN PRN Reason: Acute Pain Last Admin: 01/19/18 01:29 Dose: 10 mg Patch Removal (Remove Old Patch) 1 each T-DERMAL Q3D [facility] Last Admin: 01/18/18 18:09 Dose: Not Given Povidone Iodine (Betadine 5% Antisepsis Kit) 1 applicatio EACH NARE RIBBON INKER [facility] Stop: 01/21/18 04:44 Psyllium Hydrophilic Mucilloid (Metamucil Fiber Sf Pkt) 1 pack PO DAILY@1700 [facility] Last Admin: 01/20/18 18:51 Dose: Not Given Sevelamer Carbonate (Renvela) 800 mg PO QID [facility] Last Admin: 01/20/18 18:53 Dose: Not Given Sodium Chloride (Ns Flush) 2 ml IV.FLUSH BID [facility] Last Admin: 01/20/18 09:28 Dose: 2 ml Sodium Chloride (Ns Flush) 5 ml IV.FLUSH PRN PRN PRN Reason: flush each lumen during HD Sodium Chloride (Ns Flush) 2 ml IV.FLUSH BID [facility] Last Admin: 01/20/18 11:31 Dose: Not Given Sodium Chloride (Ns Flush) 2 ml IV.FLUSH PRN PRN PRN Reason: FLUSH AFTER USING IV ACCESS Allergies Allergy/AdvReac Type Severity Reaction Status Date / Time amlodipine Allergy Severe Edema, Verified 12/22/17 22:56 Generalized adhesive tape Allergy Unknown Generalized Verified 12/22/17 22:56 Itching Home Medications Medication Instructions Recorded Confirmed Type carvedilol [Coreg] 6.25 mg PO BID 12/22/17 01/12/18 History cinacalcet [Sensipar] 30 mg PO DAILY 12/22/17 01/12/18 History clopidogrel [Plavix] 75 mg PO DAILY 12/22/17 01/12/18 History ezetimibe-simvastatin [Vytorin 1 tab PO QPM 12/22/17 01/12/18 History 10-80] gabapentin 100 mg PO BID 12/22/17 01/12/18 History insulin pump-infus. set-meter 12/22/17 01/16/18 History levothyroxine 0.125 mg PO DAILY 12/22/17 01/12/18 History ranitidine HCl [Zantac] 150 mg PO BID 12/22/17 01/12/18 History sevelamer carbonate [Renvela] 800 mg PO QID 12/22/17 01/12/18 History clindamycin HCl 300 mg PO TID 01/12/18 01/12/18 History fentanyl 1 patch TRANSDERMAL Q72H 01/12/18 01/12/18 History oxycodone 10 mg PO Q4H PRN 01/12/18 01/12/18 History Physical Exam Vital signs: Vital Signs 01/19/18 20:00 01/19/18 21:37 01/20/18 00:00 Temperature 98.1 F 98.6 F Pulse Rate 59 L 78 Respiratory Rate 20 18 19 Blood Pressure 120/53 L 119/53 L Pulse Oximetry 94 L 93 L 01/20/18 04:00 01/20/18 09:00 01/20/18 12:00 Temperature 97.6 F 97.9 F Pulse Rate 60 64 Respiratory Rate 16 19 Blood Pressure 119/52 L 124/58 L Pulse Oximetry 94 L 95 93 L 01/20/18 18:38 Temperature Pulse Rate Respiratory Rate Blood Pressure Pulse Oximetry 93 L Intake & Output 01/20/18 01/20/18 01/21/18 06:59 18:59 06:59 Intake Total 700 / 700 Output Total 3000 / 3000 Balance 700 / 700 -3000 / -3000 Weight 105 kg Intake: IV 200 / 200 Diflucan 200 mg Premix Bag 100 100 / 100 ML @ 100 mls/hr IV.SIG Q24H [facility] Rx#:[id number] Merrem Inj 2,000 MG In NS Inj 100 / 100 100 ML @ 200 mls/hr IV.SIG Q24H [facility] Rx#:[id number] Oral 500 / 500 Output: Hemodialysis Amount 3000 / 3000 Other: Date of Last Bowel Movement 01/18/18 Narrative: Right lateral foot with mummified tissue to 5th digit extending along 5th metatarsal area dorsally and plantarly. Margins with mild erythema, edema, but dry and stable. Left 5th toe with exposed bone of proximal phalanx medially. No sean purulence. No erythema, minimal edema. Results - Labs CBC & Chem 7: 01/19/18 06:53 01/19/18 06:53 Laboratory Results - last 24 hr 01/19/18 01/20/18 01/20/18 20:54 08:23 12:26 POC Glucose 141 H 186 H 197 H 01/20/18 14:51 POC Glucose 182 H - Imaging Ordering XR bilateral feet Assessment and Plan - Assessment (1) Osteomyelitis of left foot Code(s): M86.9 - Osteomyelitis, unspecified Status: Acute Plan: Bone exposed and amputation of 5th digit likely when surgery for right foot takes place. (2) Gangrene of right foot Code(s): I96 - Gangrene, not elsewhere classified Status: Acute Plan: Await revascularization and further demarcation. Likely amputation late next week.
--- NOTE | 2018-01-20 22:31 | XR ---
EXAM DATE: 01/20/2018 10:15 PM EDT AGE/SEX: 72 years / Female INDICATIONS: Left foot pain, no injury. CLINICAL DATA: This is the patient's initial encounter. Patient reports that signs and symptoms have been present for 1 day and indicates a pain score of 9/10. MEDICAL/SURGICAL HISTORY: Diabetes. Hypertension. None. COMPARISON: [facility] [place] COMPLETE ([id number]), 10/05/2017. . FINDINGS: First digit: Truncation of the distal tuft, stable. Second digit: Phalangeal amputation. Third digit: Concentric narrowing of the distal metaphysis of the metatarsus and hyperangulation of t he MTP joint, stable from prior. Fourth digit dislocation of the MTP joint with 90 degree angulation, stable from prior. Fifth digit: Dislocation of the PIP joint and hyperextension of the MTP joint. Other: Scattered areas of periarticular sclerosis of the TMT articulation with regional osteoporosis. Large plantar and retrocalcaneal spurs. Vascular calcification in the dorsal midfoot. CONCLUSION: Multiple bony deformities and subluxations, very similar appearance to 10/05/2017. No evidence of new f ocal bony destruction or periosteal reaction. Electronically signed by: Ryan De La Torre MD 01/20/2018 10:30 PM EDT
--- NOTE | 2018-01-20 22:33 | XR ---
EXAM DATE: 01/20/2018 10:19 PM EDT AGE/SEX: 72 years / Female INDICATIONS: Right foot pain, no injury. CLINICAL DATA: This is the patient's initial encounter. Patient reports that signs and symptoms have been present for 1 day and indicates a pain score of 10/10. MEDICAL/SURGICAL HISTORY: Diabetes. Hypertension. None. COMPARISON: [facility], FOOT RIGHT COMPLETE ([id number]), 10/05/2017. . FINDINGS: The osseous structures of the foot are intact. Moderate arthropathy in the TMT articulation. Hypertro phic bone at the base of the fifth metatarsus and plantar/retrocrural calcaneal region, stable. Diffu se vascular calcifications. Areas of calcification in the soft tissues posterior to the calcaneus, st able. Mild periosteal thickening of the maximal cortex of the second through fourth metatarsus, stabl e. CONCLUSION: No acute findings. No evidence of bony destruction or new periosteal reaction. Electronically signed by: Ryan De La Torre MD 01/20/2018 10:32 PM EDT
[2018-01-21] MEDS: Levothyroxine 125 MCG Tablet PO SCH (05:56)
[2018-01-21] MEDS: Heparin - SQ 10,000 UNITS/ML Vial SQ SCH ×2 (10:33→20:31)
[2018-01-21] MEDS: Famotidine 20 MG Tablet PO SCH ×2 (10:34→20:31)
[2018-01-21] MEDS: Carvedilol 6.25 MG Tablet PO SCH ×2 (10:34→20:31)
[2018-01-21] MEDS: Minocycline 100 MG Capsule PO SCH ×2 (10:34→20:32)
[2018-01-21] MEDS: Gabapentin 100 MG Capsule PO SCH ×2 (10:35→20:32)
[2018-01-21] MEDS: Insulin NovoLOG Aspart Correctional Sugar Inj SQ SCH ×4 (10:35→20:32)
[2018-01-21] MEDS: Collagenase Oint 30 GM Tube TOPICAL SCH (10:41)
--- NOTE | 2018-01-21 11:51 | P.PNIM ---
Subjective Interval history: Patient says she is feeling well. Denies any chest pain or shortness of breath. Patient apparently confused overnight. Physical Exam Vital signs: Vital Signs 01/20/18 12:00 01/20/18 18:38 01/20/18 20:00 Temperature 97.9 F 98.8 F Pulse Rate 64 64 Respiratory Rate 19 22 Blood Pressure 124/58 L 119/52 L Pulse Oximetry 93 L 93 L 93 L 01/20/18 20:34 01/21/18 00:00 01/21/18 08:00 Temperature 97.9 F 97.4 F L Pulse Rate 60 61 Respiratory Rate 20 18 Blood Pressure 128/62 146/65 H Pulse Oximetry 94 L 94 L 97 Intake & Output 01/20/18 01/21/18 01/21/18 18:59 06:59 18:59 Intake Total 100 / 100 Output Total 3000 / 3000 Balance -3000 / -3000 100 / 100 Intake: IV 100 / 100 Diflucan 200 mg Premix Bag 100 100 / 100 ML @ 100 mls/hr IV.SIG Q24H [facility] Rx#:[id number] Output: Hemodialysis Amount 3000 / 3000 Other: Date of Last Bowel Movement 01/21/18 Narrative: GENERAL: Patient lying in bed. Appears comfortable. Awake, alert SKIN: Warm and dry. HEAD: Normocephalic. EYES: No scleral icterus. No injection or drainage. NECK: Supple, trachea midline. No JVD CARDIOVASCULAR: Regular rate and rhythm without murmurs, gallops, or rubs. RESPIRATORY: Breath sounds equal bilaterally. No accessory muscle use. GASTROINTESTINAL: Abdomen soft, non-tender, nondistended. MUSCULOSKELETAL: No edema. Right fifth toe dry gangrene. Minimal surrounding erythema. Dressing to left groin intact. BACK: Nontender without obvious deformity. No CVA tenderness. Results - Labs CBC & Chem 7: 01/19/18 06:53 01/19/18 06:53 Laboratory Results - last 24 hr 01/20/18 01/20/18 01/21/18 12:26 14:51 07:15 POC Glucose 197 H 182 H 193 H - Imaging Impressions Foot X-Ray 01/20/18 00:00 CONCLUSION: Multiple bony deformities and subluxations, very similar appearance to 2017. No evidence of new focal bony destruction or periosteal reaction. Foot X-Ray 01/20/18 00:00 CONCLUSION: No acute findings. No evidence of bony destruction or new periosteal reaction. Assessment and Plan - Plan 72 y/o WF admitted for intract BL LE pain. //Right lower extremity cellulitis, left groin and left popliteal wounds, with possible acute on chronic ischemia from PAD -Infectious disease following, continue Cubicin, prior VRE in the past, continue meropenem and Diflucan per infectious disease. -Vascular surgery Dr. 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 Per surgery, does not appear to be amenable to endovascular revascularization with any hope of long-term durability. For second opinion from Dr. Rodrigues. If she cannot be profuse, she will need major amputation. -Continue wound care left groin popliteal once. CT scan of the left thigh showed tissue defect in the left thigh and medial distal left thigh at the level of the knee. Diffuse subcutaneous edema. No abscess. Blood culture remains negative. -continue home fentanyl and gabapentin and oxycodone. -We will defer antiplatelet therapy (home medicine being Plavix) to vascular surgery in case procedure is warranted. = 01/17. Continue antibiotics as per ID. Vascular surgery following. Plan for intervention tomorrow. =01/18. Appreciate vascular surgery intervention. Patient underwent angiogram. Plan as per podiatry. Continue antibiotics as per ID. = 01/19. Status post bilateral revascularization procedure. Continue antibiotics as per infectious disease. Appreciate vascular surgery assistance. = 01/20. Appreciate vascular surgery assistance. Will consult podiatry as per vascular surgery recommendations for right fifth toe resection. = 01/21. Family present would like to speak with Dr. Rodrigues. Nursing will see if Dr. Rodrigues can discuss with family //PAD -defer Plavix therapy to vasc surgery. -continue home statin; will check CPK once weekly since pt is started on dapto given risk of myositis. = 01/17 vascular surgery procedure tomorrow. =01/18. Status post angiogram. Appreciate vascular surgery assistance. = 01/20. Appreciate vascular surgery assistance. = 01/21. Await vascular surgery discussion with family. //Hypertension-controlled, Coreg, //Diabetes type I Patient wants to use her home insulin pump. -Sliding scale as needed. = 01/21. Will add low-dose Levemir as patient is on dialysis //Nephrology End-stage renal disease, dialysis Tuesday. -dialysis per nephrology. //Constipation Chronic. -Continue Metamucil per pt request. //Chronic pain The pt is on hospice as an outpt. -pain control. //Hospital induced delirium/. Discussed with family. Would recommend possible Seroquel, who her family does not feel this is appropriate. Would not like to change pain regimen at this time as pain appears controlled. Would recommend family or another facility her face could see with patient overnight. No mechanical DVT prophylaxis due to lower extremity conditions, heparin for DVT prophylaxis. Discharge Planning: When cleared by ID, vascular surgery, podiatry.
[2018-01-21] MEDS: Psyllium Husk SF 3.4 GM in 5.8 GM Packet PO SCH (18:34)
[2018-01-21] MEDS: Ezetimibe 10 MG Tablet PO SCH (20:31)
[2018-01-21] MEDS: Insulin Detemir Inj 1,000 UNIT/10 ML Vial SQ SCH (20:32)
[2018-01-21 21:28] LABS: Baso # (Auto) 0.1 th/mm3 (0.0-0.2); Baso % (Auto) 0.5 % (0.0-2.0); Eos # (Auto) 0.3 th/mm3 (0.0-0.4); Eos % (Auto) 2.4 % (0.0-4.0); Hematocrit 32.3 % (35.0-46.0); Hemoglobin 10.1 gm/dL (11.6-15.3); Lymph % (Auto) 13.9 % (9.0-44.0); Mean Corpuscular HGB Conc 31.3 % (32.0-36.0); Mean Corpuscular Hemoglobin 29.3 pg (27.0-34.0); Mean Corpuscular Volume 93.9 fL (80.0-100.0); Mean Platelet Volume 8.1 fL (7.0-11.0); Mono # (Auto) 1.9 th/mm3 (0.0-0.9); Mono % (Auto) 13.5 % (0.0-8.0); Neut # (Auto) 9.8 th/mm3 (1.8-7.7); Neut % (Auto) 69.7 % (16.0-70.0); Platelet Count 275 th/mm3 (150-450); Red Blood Count 3.44 mil/mm3 (4.00-5.30); Red Cell Distribution Width 21.1 % (11.6-17.2); White Blood Count 14.1 th/mm3 (4.0-11.0)
[2018-01-21 22:06] LABS: Albumin 1.9 g/dL (3.4-5.0); Calcium 8.6 mg/dL (8.5-10.1); Carbon Dioxide 28.3 meq/L (21.0-32.0); Phosphorus 4.2 mg/dL (2.5-4.9); Potassium 3.9 meq/L (3.5-5.1)
[2018-01-22] MEDS: Levothyroxine 125 MCG Tablet PO SCH (05:53)
[2018-01-22] MEDS: Heparin - SQ 10,000 UNITS/ML Vial SQ SCH ×2 (08:24→21:43)
[2018-01-22] MEDS: Carvedilol 6.25 MG Tablet PO SCH ×2 (08:24→21:45)
[2018-01-22] MEDS: Famotidine 20 MG Tablet PO SCH ×2 (08:25→21:44)
[2018-01-22] MEDS: Insulin NovoLOG Aspart Correctional Sugar Inj SQ SCH ×4 (08:25→21:51)
[2018-01-22] MEDS: Gabapentin 100 MG Capsule PO SCH ×2 (08:26→21:46)
[2018-01-22] MEDS: Minocycline 100 MG Capsule PO SCH ×2 (08:26→21:45)
[2018-01-22] MEDS: Insulin Detemir Inj 1,000 UNIT/10 ML Vial SQ SCH ×2 (08:26→21:54)
--- NOTE | 2018-01-22 08:26 | P.PNVS ---
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 Discussed options with patient and her this morning. The patient is much more alert. They both would like to proceed with R LE bypass. I think they understand that this is somewhat heroic given her poor physical state at present, the extent of the bypass, as well as the lack of available autogenous conduit. They are aware that the other option, which may come to fruition if/when the bypass fails, is an AKA. Objective Vital Signs / I&O: Vital Signs 01/21/18 12:00 01/21/18 15:59 01/21/18 20:00 Temperature 97.4 F L 98.0 F 97.3 F L Pulse Rate 61 57 L 16 L Respiratory Rate 18 18 16 Blood Pressure 142/65 H 135/64 113/5 L Pulse Oximetry 95 96 97 01/22/18 00:00 01/22/18 04:00 Temperature 97.3 F L 97.2 F L Pulse Rate 51 L 50 L Respiratory Rate 16 18 Blood Pressure 113/56 L 108/51 L Pulse Oximetry 97 96 Intake & Output 01/21/18 01/22/18 01/22/18 18:59 06:59 18:59 Intake Total 1200 / 1200 200 / 200 Balance 1200 / 1200 200 / 200 Weight 102.3 kg Intake: IV 200 / 200 Diflucan 200 mg Premix Bag 100 100 / 100 ML @ 100 mls/hr IV.SIG Q24H RICARDO Rx#:[id number] Merrem Inj 1,000 MG In NS Inj 100 / 100 100 ML @ 200 mls/hr IV.SIG Q24H RICARDO Rx#:[id number] Oral 1200 / 1200 Other: # Voids 0 # Bowel Movements 1 Physical Exam: R forefoot ischemia and 4th and 5th toe gangrene. Laboratory Results - last 24 hr 01/21/18 01/21/18 01/21/18 12:11 18:01 19:52 WBC RBC Hgb Hct MCV MCH MCHC RDW Plt Count MPV Neut % (Auto) Lymph % (Auto) Cobb % (Auto) Eos % (Auto) Baso % (Auto) Neut # (Auto) Lymph # (Auto) Cobb # (Auto) Eos # (Auto) Baso # (Auto) WBC Differential Differential Comment Sodium Potassium Chloride Carbon Dioxide Anion Gap BUN Creatinine Estimated GFR POC Glucose 216 H 196 H 203 H Random Glucose Calcium Phosphorus Albumin 01/21/18 01/21/18 01/22/18 20:26 20:26 07:41 WBC 14.1 H RBC 3.44 L Hgb 10.1 L Hct 32.3 L MCV 93.9 MCH 29.3 MCHC 31.3 L RDW 21.1 H Plt Count 275 MPV 8.1 Neut % (Auto) 69.7 Lymph % (Auto) 13.9 Cobb % (Auto) 13.5 H Eos % (Auto) 2.4 Baso % (Auto) 0.5 Neut # (Auto) 9.8 H Lymph # (Auto) 2.0 Cobb # (Auto) 1.9 H Eos # (Auto) 0.3 Baso # (Auto) 0.1 WBC Differential . Differential Comment Auto diff final Sodium 134 L Potassium 3.9 Chloride 94 L Carbon Dioxide 28.3 Anion Gap 12 BUN 34 H Creatinine 4.32 H Estimated GFR 10 L POC Glucose 168 H Random Glucose 164 H Calcium 8.6 Phosphorus 4.2 Albumin 1.9 L Impressions Foot X-Ray 01/20/18 00:00 CONCLUSION: Multiple bony deformities and subluxations, very similar appearance to 2017. No evidence of new focal bony destruction or periosteal reaction. Foot X-Ray 01/20/18 00:00 CONCLUSION: No acute findings. No evidence of bony destruction or new periosteal reaction. Assessment and Plan - Assessment (1) Peripheral vascular disease of lower extremity with ulceration Code(s): I73.9 - Peripheral vascular disease, unspecified; L97.909 - Non- pressure chronic ulcer of unspecified part of unspecified lower leg with unspecified severity Status: Acute - Plan She has the unfortunate combination of PAD and ESRD; very challenging revascularization options. The , the patient, and I all talked about bypass options and we will proceed with R LE bypass on WEDNESDAY 01/24. 1. continue wound care 2. Limit narcotics 3. Aggressive daily PT with putting weight on the foot 4. HD Tuesday. 5. OR Tuesday. Mukesh Rodrigues MD FACS RPVI clockmaker [facility] - Heart and Vascular Surgery at [place] [phone]
[2018-01-22] MEDS: Collagenase Oint 30 GM Tube TOPICAL SCH (08:27)
--- NOTE | 2018-01-22 12:20 | P.PNIM ---
Subjective Interval history: Patient says she is feeling well. Denies any chest pain or shortness of breath. Denies constipation. Slept well overnight. Physical Exam Vital signs: Vital Signs 01/21/18 15:59 01/21/18 20:00 01/22/18 00:00 Temperature 98.0 F 97.3 F L 97.3 F L Pulse Rate 57 L 16 L 51 L Respiratory Rate 18 16 16 Blood Pressure 135/64 113/5 L 113/56 L Pulse Oximetry 96 97 97 01/22/18 04:00 01/22/18 08:00 Temperature 97.2 F L 97.2 F L Pulse Rate 50 L 52 L Respiratory Rate 18 17 Blood Pressure 108/51 L 107/56 L Pulse Oximetry 96 98 Intake & Output 01/21/18 01/22/18 01/22/18 18:59 06:59 18:59 Intake Total 1200 / 1200 200 / 200 Balance 1200 / 1200 200 / 200 Weight 102.3 kg Intake: IV 200 / 200 Diflucan 200 mg Premix Bag 100 100 / 100 ML @ 100 mls/hr IV.SIG Q24H RICARDO Rx#:[id number] Merrem Inj 1,000 MG In NS Inj 100 / 100 100 ML @ 200 mls/hr IV.SIG Q24H RICARDO Rx#:[id number] Oral 1200 / 1200 Other: # Voids 0 # Bowel Movements 1 Narrative: GENERAL: Patient lying in bed. Appears comfortable. Awake, alert. Exam unchanged from yesterday. SKIN: Warm and dry. HEAD: Normocephalic. EYES: No scleral icterus. No injection or drainage. NECK: Supple, trachea midline. No JVD CARDIOVASCULAR: Regular rate and rhythm without murmurs, gallops, or rubs. RESPIRATORY: Breath sounds equal bilaterally. No accessory muscle use. GASTROINTESTINAL: Abdomen soft, non-tender, nondistended. MUSCULOSKELETAL: No edema. Right fifth toe dry gangrene. Minimal surrounding erythema. Dressing to left groin intact. BACK: Nontender without obvious deformity. No CVA tenderness. Results - Labs CBC & Chem 7: 01/21/18 20:26 01/21/18 20:26 Laboratory Results - last 24 hr 01/21/18 01/21/18 01/21/18 12:11 18:01 19:52 WBC RBC Hgb Hct MCV MCH MCHC RDW Plt Count MPV Neut % (Auto) Lymph % (Auto) Adams % (Auto) Eos % (Auto) Baso % (Auto) Neut # (Auto) Lymph # (Auto) Adams # (Auto) Eos # (Auto) Baso # (Auto) WBC Differential Differential Comment Sodium Potassium Chloride Carbon Dioxide Anion Gap BUN Creatinine Estimated GFR POC Glucose 216 H 196 H 203 H Random Glucose Calcium Phosphorus Albumin 01/21/18 01/21/18 01/22/18 20:26 20:26 07:41 WBC 14.1 H RBC 3.44 L Hgb 10.1 L Hct 32.3 L MCV 93.9 MCH 29.3 MCHC 31.3 L RDW 21.1 H Plt Count 275 MPV 8.1 Neut % (Auto) 69.7 Lymph % (Auto) 13.9 Adams % (Auto) 13.5 H Eos % (Auto) 2.4 Baso % (Auto) 0.5 Neut # (Auto) 9.8 H Lymph # (Auto) 2.0 Adams # (Auto) 1.9 H Eos # (Auto) 0.3 Baso # (Auto) 0.1 WBC Differential . Differential Comment Auto diff final Sodium 134 L Potassium 3.9 Chloride 94 L Carbon Dioxide 28.3 Anion Gap 12 BUN 34 H Creatinine 4.32 H Estimated GFR 10 L POC Glucose 168 H Random Glucose 164 H Calcium 8.6 Phosphorus 4.2 Albumin 1.9 L 01/22/18 11:56 WBC RBC Hgb Hct MCV MCH MCHC RDW Plt Count MPV Neut % (Auto) Lymph % (Auto) Adams % (Auto) Eos % (Auto) Baso % (Auto) Neut # (Auto) Lymph # (Auto) Adams # (Auto) Eos # (Auto) Baso # (Auto) WBC Differential Differential Comment Sodium Potassium Chloride Carbon Dioxide Anion Gap BUN Creatinine Estimated GFR POC Glucose 201 H Random Glucose Calcium Phosphorus Albumin Assessment and Plan - Plan 72 y/o WF admitted for intract BL LE pain. //Right lower extremity cellulitis, left groin and left popliteal wounds, with possible acute on chronic ischemia from PAD -Infectious disease following, continue Cubicin, prior VRE in the past, continue meropenem and Diflucan per infectious disease. -Vascular surgery Dr. 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 Per surgery, does not appear to be amenable to endovascular revascularization with any hope of long-term durability. For second opinion from Dr. Rodrigues. If she cannot be profuse, she will need major amputation. -Continue wound care left groin popliteal once. CT scan of the left thigh showed tissue defect in the left thigh and medial distal left thigh at the level of the knee. Diffuse subcutaneous edema. No abscess. Blood culture remains negative. -continue home fentanyl and gabapentin and oxycodone. -We will defer antiplatelet therapy (home medicine being Plavix) to vascular surgery in case procedure is warranted. = 01/17. Continue antibiotics as per ID. Vascular surgery following. Plan for intervention tomorrow. =01/18. Appreciate vascular surgery intervention. Patient underwent angiogram. Plan as per podiatry. Continue antibiotics as per ID. = 01/19. Status post bilateral revascularization procedure. Continue antibiotics as per infectious disease. Appreciate vascular surgery assistance. = 01/20. Appreciate vascular surgery assistance. Will consult podiatry as per vascular surgery recommendations for right fifth toe resection. = 01/21. Family present would like to speak with Dr. Rodrigues. Nursing will see if Dr. Rodrigues can discuss with family = 01/22. Family, patient had discussion with Dr. Rodrigues. Planning for revascularization early this week. Appreciate vascular surgery assistance. Continue antibiotics as per infectious disease. //PAD -defer Plavix therapy to vasc surgery. -continue home statin; will check CPK once weekly since pt is started on dapto given risk of myositis. = 01/17 vascular surgery procedure tomorrow. =01/18. Status post angiogram. Appreciate vascular surgery assistance. = 01/20. Appreciate vascular surgery assistance. = 01/21. Await vascular surgery discussion with family. //Hypertension-controlled, Coreg, //Diabetes type I Patient wants to use her home insulin pump. -Sliding scale as needed. = 01/21. Will add low-dose Levemir as patient is on dialysis = 01/22 glucose acceptable. Continue to monitor. //Nephrology End-stage renal disease, dialysis Tuesday. -dialysis per nephrology. //Constipation Chronic. -Continue Metamucil per pt request. //Chronic pain The pt is on hospice as an outpt. -pain control. //Hospital induced delirium/. Discussed with family. Would recommend possible Seroquel, who her family does not feel this is appropriate. Would not like to change pain regimen at this time as pain appears controlled. Would recommend family or another facility her face could see with patient overnight. No mechanical DVT prophylaxis due to lower extremity conditions, heparin for DVT prophylaxis. Discharge Planning: When cleared by ID, vascular surgery, podiatry.
--- NOTE | 2018-01-22 15:58 | P.PNNP ---
Subjective Interval history: Family member by bedside. She indicated to me that patient was more alert this morning but somewhat more lethargic after receiving analgesia. No verbal complaints. Physical Exam Vital signs: Vital Signs 01/21/18 15:59 01/21/18 20:00 01/22/18 00:00 Temperature 98.0 F 97.3 F L 97.3 F L Pulse Rate 57 L 16 L 51 L Respiratory Rate 18 16 16 Blood Pressure 135/64 113/5 L 113/56 L Pulse Oximetry 96 97 97 01/22/18 04:00 01/22/18 08:00 01/22/18 12:00 Temperature 97.2 F L 97.2 F L 97.2 F L Pulse Rate 50 L 52 L 54 L Respiratory Rate 18 17 18 Blood Pressure 108/51 L 107/56 L 121/60 Pulse Oximetry 96 98 98 01/22/18 15:07 Temperature 97.6 F Pulse Rate 105 H Respiratory Rate 18 Blood Pressure 120/56 L Pulse Oximetry 94 L Intake & Output 01/21/18 01/22/18 01/22/18 18:59 06:59 18:59 Intake Total 1200 / 1200 200 / 200 Balance 1200 / 1200 200 / 200 Weight 102.3 kg Intake: IV 200 / 200 Diflucan 200 mg Premix Bag 100 100 / 100 ML @ 100 mls/hr IV.SIG Q24H RICARDO Rx#:[id number] Merrem Inj 1,000 MG In NS Inj 100 / 100 100 ML @ 200 mls/hr IV.SIG Q24H RICARDO Rx#:[id number] Oral 1200 / 1200 Other: # Voids 0 # Bowel Movements 1 Narrative: GENERAL: Patient lying in bed. Appears comfortable. SKIN: Warm and dry. HEAD: Normocephalic. EYES: No scleral icterus. No injection or drainage. NECK: Supple, trachea midline. No JVD CARDIOVASCULAR: Regular rate and rhythm without murmurs, gallops, or rubs. RESPIRATORY: Breath sounds equal bilaterally. GASTROINTESTINAL: Abdomen soft, non-tender, nondistended. MUSCULOSKELETAL: No edema. Right fifth toe dry gangrene. Minimal surrounding erythema. Dressing to left groin intact. Assessment and Plan - Assessment (1) ESRD (end stage renal disease) on dialysis Code(s): N18.6 - End stage renal disease; Z99.2 - Dependence on renal dialysis Status: Acute Plan: Tolerating session well. But access flow suboptimal. Will ask vascular to assess on Tuesday. Continue MWF HD schedule. Patient's overall condition has been declining over the last several weeks. Patient still with significant comorbidities and increasing debilitation. Prognosis guarded. Gadolinium is contraindicated. Medication should be adjusted for the patient's end-stage renal disease when indicated. (2) Peripheral vascular disease of lower extremity with ulceration Code(s): I73.9 - Peripheral vascular disease, unspecified; L97.909 - Non- pressure chronic ulcer of unspecified part of unspecified lower leg with unspecified severity Status: Acute Plan: Patient now status post angioplasty of left femoropopliteal today. Vascular surgery to discuss options regarding right lower extremity i.e. bypass versus amputation. Vascular note reviewed. (3) Cellulitis Code(s): L03.90 - Cellulitis, unspecified Status: Acute Qualifiers: Site of cellulitis: extremity Site of cellulitis of extremity: lower extremity Laterality: left Qualified Code(s): L03.116 - Cellulitis of left lower limb Plan: Infectious disease has raised the possibility of calciphylaxis involving the upper lateral left thigh. I did explain to them however the calciphylaxis would not account for her peripheral vascular disease in the calciphylaxis is a pathology that involves microvasculature associated with painful skin lesions and poor wound healing. The patient and indicated to me today that they were agreeable to proceed with a skin punch biopsy to determine if there is any pathological indication of the patient does indeed have calciphylaxis. If it does appear to be the case, can proceed with sodium thiosulfate therapy with dialysis. I discussed with them again potential side effects of sodium thiosulfate therapy as well as potential benefits i.e possible improvement in wound healing as well as relief of pain. They are aware that this will not however improve her peripheral arterial disease. Quality of life issues were also discussed with patient and . I suspect that the patient's quality of life as well as prognosis regardless of aggressiveness of care will likely be poor. I spoke with Dr. Brothers. He indicated that he would be leaving town but he would discuss the situation with Dr. Rodrigues with the possibility of proceeding to punch skin biopsy for possible calciphylaxis either this week or next week. Will confirm same tomorrow. (4) DM (diabetes mellitus) Code(s): E11.9 - Type 2 diabetes mellitus without complications Status: Acute Plan: Mgmt per primary
[2018-01-22] MEDS: Psyllium Husk SF 3.4 GM in 5.8 GM Packet PO SCH (17:18)
[2018-01-22] MEDS: DAPTOmycin Inj 600 MG in Sodium Chlor 0.9% Inj 100 ML IV.SIG SCH (18:15)
[2018-01-22] MEDS: Ezetimibe 10 MG Tablet PO SCH (18:22)
[2018-01-23] MEDS: Levothyroxine 125 MCG Tablet PO SCH (05:42)
[2018-01-23] MEDS: Collagenase Oint 30 GM Tube TOPICAL SCH (08:33)
[2018-01-23] MEDS: Heparin - SQ 10,000 UNITS/ML Vial SQ SCH ×2 (09:01→21:48)
[2018-01-23] MEDS: Insulin NovoLOG Aspart Correctional Sugar Inj SQ SCH ×4 (09:02→21:48)
[2018-01-23] MEDS: Famotidine 20 MG Tablet PO SCH ×2 (09:02→21:47)
[2018-01-23] MEDS: Minocycline 100 MG Capsule PO SCH ×2 (09:02→21:47)
[2018-01-23] MEDS: Gabapentin 100 MG Capsule PO SCH ×2 (09:02→21:47)
[2018-01-23] MEDS: Insulin Detemir Inj 1,000 UNIT/10 ML Vial SQ SCH ×2 (09:02→21:48)
[2018-01-23] MEDS: Carvedilol 6.25 MG Tablet PO SCH ×2 (09:02→21:47)
[2018-01-23] MEDS ORDERED: fentaNYL Citrate Inj 250 MCG/5 ML Ampul ONE (09:22)
--- NOTE | 2018-01-23 10:22 | P.RAD ---
Post Procedure Progress Note - Pre Procedure Diagnosis (1) ESRD (end stage renal disease) on dialysis - Post Procedure Diagnosis (1) ESRD (end stage renal disease) on dialysis - Procedure Information Procedure Date: 01/23/18 Supervising Radiologist: Satish Sanchez MD Estimated blood loss (mL): 1 Anesthesia: Local, Conscious Sedation - Plan of Activity Patient to Unit: Nursing Unit Patient Condition: Good Additional Comments: Right upper extremity AV fistula evaluated. Brisk flow through the arterial venous anastomosis with the outflow veins widely patent. full dictated report to follow See PACS Report for procedural detail/treatment.
--- NOTE | 2018-01-23 14:16 | P.PNVS ---
- Pre-operative Note Planned Procedure: R LE bypass Interval History: The patient has been feeling well, is much more alert. The forefoot on the RIGHT continues to be profoundly ischemic. Have offered R fem-AT with cryo and she and her agree. We discussed the LEFT lateral hip wound. I think this is more related to underlying ischemia due to profunda occlusion and don't think it is true calciphylaxis. As such, a biopsy would worsen the wound. Labs: WBC 14.1 th/mm3 (4.0-11.0) H 01/21/18 20:26 RBC 3.44 mil/mm3 (4.00-5.30) L 01/21/18 20: Hgb 10.1 gm/dL (11.6-15.3) L 01/21/18 20: Hct 32.3 % (35.0-46.0) L 01/21/18 20: MCV 93.9 fL (80.0-100.0) 01/21/18 20: MCH 29.3 pg (27.0-34.0) 01/21/18 20: MCHC 31.3 % (32.0-36.0) L 01/21/18 20: RDW 21.1 % (11.6-17.2) H 01/21/18 20: Plt Count 275 th/mm3 (150-450) 01/21/18 20:26 MPV 8.1 fL (7.0-11.0) 01/21/18 20: INR 1.1 Ratio 01/12/18 12:15 Sodium 134 meq/L (136-145) L 01/21/18 20: Potassium 3.9 meq/L (3.5-5.1) 01/21/18 20: Chloride 94 meq/L (98-107) L 01/21/18 20: Carbon Dioxide 28.3 meq/L (21.0-32.0) 01/21/18 20: Anion Gap 12 meq/L (5-15) 01/21/18 20: BUN 34 mg/dL (7-18) H 01/21/18 20:26 Random Glucose 164 mg/dL (74-106) H 01/21/18 20:26 Calcium 8.6 mg/dL (8.5-10.1) 01/21/18 20:26 Blood: T&S Imaging: ITS Impressions Femur CT 01/12/18 00:00 CONCLUSION: 1. Soft tissue defect in the anterior upper left thigh and the medial distal left thigh at the level of the knee. 2. Diffuse subcutaneous soft tissue edema. No drainable abscess identified. Aorta w/Runoff CTA 01/15/18 00:00 CONCLUSION: 1. Diffuse atherosclerotic disease with moderate distal aortic stenosis at the bifurcation. 2. Bilateral moderate common iliac artery stenosis, likely overestimated due to degree of calcified plaque. 3. Left femoral to above-knee popliteal artery bypass graft with critical stenosis of the proximal anastomosis and mild stenosis of the distal anastomosis. 4. Diffuse right SFA disease with tandem moderate stenoses in the proximal thigh and tandem severe stenoses in the distal thigh. Diffuse right popliteal artery disease. 5. Limited single vessel runoff on the right. The peroneal artery with reconstitution of the anterior tibial artery in the distal calf. 6. Limited two-vessel runoff on the left. Diffusely diseased posterior tibial and peroneal arteries. 7. Stable 10 mm nodule in the right lung base. Follow-up examination in 3-6 months is again recommended to document stability. 8. Stable additional ancillary findings, as above. Extremity Arterial Study 01/15/18 00:00 CONCLUSION: Findings of severe disease on the right side with nondiagnostic evaluation on the left. CT angiography of the abdominal aorta and lower extremities is recommended for further evaluation if clinically indicated. Head CT 01/16/18 00:00 CONCLUSION: 1. No acute findings in the brain. . Foot X-Ray 01/20/18 00:00 CONCLUSION: No acute findings. No evidence of bony destruction or new periosteal reaction. Orders: NPO after MN Post-operative Destination: PACU Operative site marked: Yes Consent: Informed consent has been obtained from Mary Jarrell. I have explained the procedure in detail and discussed the risks, benefits, and potential complications. All questions have been answered. Patient Contact Information:
--- NOTE | 2018-01-23 14:42 | P.PN ---
Subjective Interval history: Follow up: RLE ischemia, lower extremity cellulitis Patient sitting up in bed eating lunch with at bedside offer no new concerns/complaints at this time looking forward to surgery tomorrow Physical Exam Vital signs: Vital Signs 01/22/18 15:07 01/22/18 20:00 01/23/18 00:00 Temperature 97.6 F 98.3 F 98 F Pulse Rate 105 H 56 L 55 L Respiratory Rate 18 18 Blood Pressure 120/56 L 117/56 L 111/61 Pulse Oximetry 94 L 95 97 01/23/18 04:00 01/23/18 08:00 01/23/18 10:35 Temperature 97.4 F L 99.5 F 97.9 F Pulse Rate 52 L 53 L 53 L Respiratory Rate 20 18 19 Blood Pressure 110/51 L 123/64 121/74 Pulse Oximetry 98 99 95 01/23/18 10:50 Temperature Pulse Rate 53 L Respiratory Rate 20 Blood Pressure 119/56 L Pulse Oximetry 96 Intake & Output 01/22/18 01/23/18 01/23/18 18:59 06:59 18:59 Intake Total 100 / 100 200 / 200 Balance 100 / 100 200 / 200 Weight 105 kg Intake: IV 100 / 100 200 / 200 Cubicin Inj 600 MG In NS Inj 100 / 100 100 ML @ 200 mls/hr IV.SIG Q48H RICARDO Rx#:[id number] Diflucan 200 mg Premix Bag 100 100 / 100 ML @ 100 mls/hr IV.SIG Q24H RICARDO Rx#:[id number] Merrem Inj 1,000 MG In NS Inj 100 / 100 100 ML @ 200 mls/hr IV.SIG Q24H RICARDO Rx#:[id number] Other: # Bowel Movements 1 Narrative: GENERAL: Patient lying in bed. Appears comfortable. SKIN: Right fifth toe dry gangrene. Minimal surrounding erythema. Dressing to left groin intact. NECK: Supple, trachea midline. No JVD CARDIOVASCULAR: Regular rate and rhythm RESPIRATORY: Breath sounds equal bilaterally. No accessory muscle use. GASTROINTESTINAL: Abdomen soft, non-tender, nondistended. MUSCULOSKELETAL: No edema. BACK: Nontender without obvious deformity. No CVA tenderness. Results - Labs CBC & Chem 7: 01/21/18 20:26 01/21/18 20:26 Laboratory Results - last 24 hr 01/22/18 01/22/18 01/23/18 17:16 21:51 08:12 POC Glucose 278 H 145 H 167 H Blood Type Antibody Screen 01/23/18 01/23/18 08:40 12:24 POC Glucose 191 H Blood Type O Negative Antibody Screen Negative Assessment and Plan - Plan 72 y/o WF admitted for intract BL LE pain. //Right lower extremity cellulitis, left groin and left popliteal wounds, with possible acute on chronic ischemia from PAD -Infectious disease following, continue Cubicin, prior VRE in the past, continue meropenem and Diflucan per infectious disease. -Vascular surgery Dr. 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 Per surgery, does not appear to be amenable to endovascular revascularization with any hope of long-term durability. For second opinion from Dr. Rodrigues. If she cannot be profuse, she will need major amputation. -Continue wound care left groin popliteal once. CT scan of the left thigh showed tissue defect in the left thigh and medial distal left thigh at the level of the knee. Diffuse subcutaneous edema. No abscess. Blood culture remains negative. -continue home fentanyl and gabapentin and oxycodone. -We will defer antiplatelet therapy (home medicine being Plavix) to vascular surgery in case procedure is warranted. = 01/17. Continue antibiotics as per ID. Vascular surgery following. Plan for intervention tomorrow. =01/18. Appreciate vascular surgery intervention. Patient underwent angiogram. Plan as per podiatry. Continue antibiotics as per ID. = 01/19. Status post bilateral revascularization procedure. Continue antibiotics as per infectious disease. Appreciate vascular surgery assistance. = 01/20. Appreciate vascular surgery assistance. Will consult podiatry as per vascular surgery recommendations for right fifth toe resection. = 01/21. Family present would like to speak with Dr. Rodrigues. Nursing will see if Dr. Rodrigues can discuss with family = 01/22. Family, patient had discussion with Dr. Rodrigues. Planning for revascularization early this week. Appreciate vascular surgery assistance. Continue antibiotics as per infectious disease. =01/23. patient offers no new concerns looking forward to surgery tomorrow //PAD -defer Plavix therapy to vasc surgery. -continue home statin; will check CPK once weekly since pt is started on dapto given risk of myositis. = 01/17 vascular surgery procedure tomorrow. =01/18. Status post angiogram. Appreciate vascular surgery assistance. = 01/20. Appreciate vascular surgery assistance. = 01/21. Await vascular surgery discussion with family. = plan surgery 01/24 //Hypertension-controlled, Coreg, //Diabetes type I Patient wants to use her home insulin pump. -Sliding scale as needed. = 01/21. Will add low-dose Levemir as patient is on dialysis = 01/22 glucose acceptable. Continue to monitor. //Nephrology End-stage renal disease, dialysis Tuesday. -dialysis per nephrology. //Constipation Chronic. last BM 01/23 -Continue Metamucil per pt request. //Chronic pain The pt is on hospice as an outpt. -pain control. //Hospital induced delirium/. Discussed with family. Would recommend possible Seroquel, who her family does not feel this is appropriate. Would not like to change pain regimen at this time as pain appears controlled. Would recommend family or another facility her face could see with patient overnight. No mechanical DVT prophylaxis due to lower extremity conditions, heparin for DVT prophylaxis. Discharge Planning: When cleared by ID, vascular surgery, podiatry. Discussed the case with supervising physician Dr. Collins
[2018-01-23] MEDS: Sod Chloride 0.9% Inj 1,000 ML OTHER PRN (18:39)
[2018-01-23] MEDS: Ezetimibe 10 MG Tablet PO SCH (18:40)
[2018-01-23] MEDS: Gelatin 12 MM/7 MM Topical Foam TOPICAL PRN (18:40)
[2018-01-23] MEDS: Psyllium Husk SF 3.4 GM in 5.8 GM Packet PO SCH (18:40)
[2018-01-24] MEDS ORDERED: Sodium Chlor 0.9% Inj 500 ML IV.SIG SCH (02:00)
[2018-01-24] MEDS ORDERED: Chlorhexidine Gluconate 2% 1 Pack (2 Cloths) TOPICAL SCH (02:00)
[2018-01-24 05:05] LABS: Baso # (Auto) 0.1 th/mm3 (0.0-0.2); Baso % (Auto) 0.9 % (0.0-2.0); Eos # (Auto) 0.3 th/mm3 (0.0-0.4); Eos % (Auto) 2.8 % (0.0-4.0); Hematocrit 30.7 % (35.0-46.0); Hemoglobin 9.7 gm/dL (11.6-15.3); Lymph # (Auto) 1.4 th/mm3 (1.0-4.8); Lymph % (Auto) 11.7 % (9.0-44.0); Mean Corpuscular HGB Conc 31.5 % (32.0-36.0); Mean Platelet Volume 7.9 fL (7.0-11.0); Mono # (Auto) 1.6 th/mm3 (0.0-0.9); Neut # (Auto) 8.3 th/mm3 (1.8-7.7); Neut % (Auto) 70.6 % (16.0-70.0); Platelet Count 251 th/mm3 (150-450); Red Blood Count 3.34 mil/mm3 (4.00-5.30); White Blood Count 11.8 th/mm3 (4.0-11.0)
[2018-01-24 05:20] LABS: Calcium 8.3 mg/dL (8.5-10.1); Carbon Dioxide 28.7 meq/L (21.0-32.0)
[2018-01-24] MEDS: Levothyroxine 125 MCG Tablet PO SCH (05:42)
[2018-01-24] MEDS: Heparin - SQ 10,000 UNITS/ML Vial SQ SCH (07:16)
[2018-01-24] MEDS ORDERED: Heparin/NS PF Inj 500 ML ONE (07:38)
[2018-01-24] MEDS ORDERED: Heparin 10,000 UNITS/10 ML Vial (for IV use) ONE ×2 (07:38→11:20)
[2018-01-24] MEDS ORDERED: Thrombin Topical 20,000 UNIT Spray Kit TOPICAL ONE (07:38)
[2018-01-24] MEDS: Carvedilol 6.25 MG Tablet PO SCH ×2 (08:02→20:22)
[2018-01-24] MEDS: Minocycline 100 MG Capsule PO SCH ×2 (08:02→20:22)
[2018-01-24] MEDS: Famotidine 20 MG Tablet PO SCH ×2 (08:03→20:22)
[2018-01-24] MEDS: Gabapentin 100 MG Capsule PO SCH ×2 (08:03→20:23)
[2018-01-24] MEDS: Collagenase Oint 30 GM Tube TOPICAL SCH (08:04)
[2018-01-24] MEDS: Insulin Detemir Inj 1,000 UNIT/10 ML Vial SQ SCH ×2 (08:08→20:44)
[2018-01-24] MEDS: Insulin NovoLOG Aspart Correctional Sugar Inj SQ SCH ×4 (08:08→20:45)
[2018-01-24] MEDS ORDERED: Bupivacaine PF 0.5% Inj 30 ML Vial ONE (10:45)
[2018-01-24] MEDS ORDERED: Neostigmine Inj 5 MG/5 ML Syringe IV.PUSH ONE (10:48)
[2018-01-24] MEDS ORDERED: Glycopyrrolate Inj 1 MG/5 ML Syringe IV.PUSH ONE (10:48)
[2018-01-24] MEDS ORDERED: Sodium Chlor 0.9% Inj 500 ML IV.SIG ONE (10:48)
[2018-01-24] MEDS ORDERED: Lidocaine PF 1% Inj 5 ML Syringe INFILTRATN ONE (10:48)
[2018-01-24] MEDS ORDERED: Neostigmine Inj 5 MG/5 ML Syringe ONE (12:41)
--- NOTE | 2018-01-24 12:41 | P.PN ---
Subjective Interval history: Follow up: RLE ischemia, lower extremity cellulitis offer no new concerns/complaints at this time looking forward to surgery today Physical Exam Vital signs: Vital Signs 01/23/18 16:00 01/23/18 20:00 01/24/18 00:00 Temperature 97.3 F L 97.8 F 98 F Pulse Rate 58 L 62 62 Respiratory Rate 18 20 20 Blood Pressure 117/68 142/65 H 144/63 H Pulse Oximetry 100 96 96 01/24/18 04:00 01/24/18 07:58 01/24/18 08:03 Temperature 98.6 F 98.0 F Pulse Rate 59 L 64 58 L Respiratory Rate 20 17 Blood Pressure 119/53 L 119/55 L Pulse Oximetry 94 L 96 Intake & Output 01/23/18 01/24/18 01/24/18 18:59 06:59 18:59 Intake Total 1200 / 1200 Output Total 2200 / 2200 40 / 40 Balance -1000 / -1000 -40 / -40 Weight 106.3 kg Intake: IV 1200 / 1200 Diflucan 200 mg Premix Bag 100 100 / 100 ML @ 100 mls/hr IV.SIG Q24H [facility] Rx#:[id number] Merrem Inj 1,000 MG In NS Inj 100 / 100 100 ML @ 200 mls/hr IV.SIG Q24H [facility] Rx#:[id number] NS Inj 1,000 ML @ As Directed 1000 / 1000 OTHER .Q0M PRN Rx#:[id number] Output: Hemodialysis Amount 1500 / 1500 Estimated Blood Loss 30 / 30 Urine Amount (Catheter) 700 / 700 10 / 10 Indwelling Urethral Catheter 10 Straight 700 / 700 Other: Date of Last Bowel Movement 01/23/18 01/24/18 # Bowel Movements 1 1 Narrative: GENERAL: Patient lying in bed. Appears comfortable. SKIN: Right fifth toe dry gangrene. Minimal surrounding erythema. Dressing to left groin intact. NECK: Supple, trachea midline. No JVD CARDIOVASCULAR: Regular rate and rhythm RESPIRATORY: Breath sounds equal bilaterally. No accessory muscle use. GASTROINTESTINAL: Abdomen soft, non-tender, nondistended. MUSCULOSKELETAL: No edema. BACK: Nontender without obvious deformity. No CVA tenderness. - Urinary Catheter Management Straight Cath placed during this visit: no Reason for continuing: Hourly intake/output Indwelling Urethral Catheter Cath placed during this visit: yes Reason for continuing: Acute urinary retention Insertion date: 01/24/18 Insertion time: 11:30 Results - Labs CBC & Chem 7: 01/24/18 03:32 01/24/18 03:32 Laboratory Results - last 24 hr 01/23/18 01/23/18 01/24/18 18:34 21:34 03:32 WBC 11.8 H RBC 3.34 L Hgb 9.7 L Hct 30.7 L MCV 92.0 MCH 29.0 MCHC 31.5 L RDW 20.0 H Plt Count 251 MPV 7.9 Neut % (Auto) 70.6 H Lymph % (Auto) 11.7 [place] % (Auto) 14.0 H Eos % (Auto) 2.8 Baso % (Auto) 0.9 Neut # (Auto) 8.3 H Lymph # (Auto) 1.4 [place] # (Auto) 1.6 H Eos # (Auto) 0.3 Baso # (Auto) 0.1 WBC Differential . Differential Comment Auto diff final Sodium Potassium Chloride Carbon Dioxide Anion Gap BUN Creatinine Estimated GFR POC Glucose 157 H 254 H Random Glucose Calcium 01/24/18 01/24/18 03:32 07:42 WBC RBC Hgb Hct MCV MCH MCHC RDW Plt Count MPV Neut % (Auto) Lymph % (Auto) [place] % (Auto) Eos % (Auto) Baso % (Auto) Neut # (Auto) Lymph # (Auto) [place] # (Auto) Eos # (Auto) Baso # (Auto) WBC Differential Differential Comment Sodium 138 Potassium 4.0 Chloride 96 L Carbon Dioxide 28.7 Anion Gap 13 BUN 29 H Creatinine 3.90 H Estimated GFR 11 L POC Glucose 161 H Random Glucose 159 H Calcium 8.3 L Assessment and Plan - Plan 72 y/o WF admitted for intract BL LE pain. //Right lower extremity cellulitis, left groin and left popliteal wounds, with possible acute on chronic ischemia from PAD -Infectious disease following, continue Cubicin, prior VRE in the past, continue meropenem and Diflucan per infectious disease. -Vascular surgery Dr. 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 Per surgery, does not appear to be amenable to endovascular revascularization with any hope of long-term durability. For second opinion from Dr. Feezor. If she cannot be profuse, she will need major amputation. -Continue wound care left groin popliteal once. CT scan of the left thigh showed tissue defect in the left thigh and medial distal left thigh at the level of the knee. Diffuse subcutaneous edema. No abscess. Blood culture remains negative. -continue home fentanyl and gabapentin and oxycodone. -We will defer antiplatelet therapy (home medicine being Plavix) to vascular surgery in case procedure is warranted. = 01/17. Continue antibiotics as per ID. Vascular surgery following. Plan for intervention tomorrow. =01/18. Appreciate vascular surgery intervention. Patient underwent angiogram. Plan as per podiatry. Continue antibiotics as per ID. = 01/19. Status post bilateral revascularization procedure. Continue antibiotics as per infectious disease. Appreciate vascular surgery assistance. = 01/20. Appreciate vascular surgery assistance. Will consult podiatry as per vascular surgery recommendations for right fifth toe resection. = 01/21. Family present would like to speak with Dr. Rodrigues. Nursing will see if Dr. Rodrigues can discuss with family = 01/22. Family, patient had discussion with Dr. Rodrigues. Planning for revascularization early this week. Appreciate vascular surgery assistance. Continue antibiotics as per infectious disease. =01/23. patient offers no new concerns looking forward to surgery tomorrow //PAD -defer Plavix therapy to vasc surgery. -continue home statin; will check CPK once weekly since pt is started on dapto given risk of myositis. = 01/17 vascular surgery procedure tomorrow. =01/18. Status post angiogram. Appreciate vascular surgery assistance. = 01/20. Appreciate vascular surgery assistance. = 01/21. Await vascular surgery discussion with family. = plan surgery 01/24 //Hypertension-controlled, Coreg, //Diabetes type I Patient wants to use her home insulin pump. -Sliding scale as needed. = 01/21. Will add low-dose Levemir as patient is on dialysis = 01/22 glucose acceptable. Continue to monitor. =01/24 Levemir held patient NPO for surgery //Nephrology End-stage renal disease, dialysis Tuesday. -dialysis per nephrology. //Constipation Chronic. last BM 01/23 -Continue Metamucil per pt request. //Chronic pain The pt is on hospice as an outpt. -pain control. //Hospital induced delirium/sundowning. Discussed with family. Would recommend possible Seroquel, who her family does not feel this is appropriate. Would not like to change pain regimen at this time as pain appears controlled. Would recommend family or another facility her face could see with patient overnight. No mechanical DVT prophylaxis due to lower extremity conditions, heparin for DVT prophylaxis. Discharge Planning: When cleared by ID, vascular surgery, podiatry. Discussed the case with supervising physician Dr. Collins
--- NOTE | 2018-01-24 12:57 | P.OP ---
Date of procedure: 01/24/18 Procedure: R groin exploration Implants: none Anesthesia: GETA Surgeon: Mukesh Rodrigues MD Surgery Scheduler: Tonia Koenig Estimated blood loss (mL): 50 IV fluids (mL): 350 Pathology: other (urine culture (pre-or)) Operation and Findings: no bypassable vessel discussed with ; will need R AKA
[2018-01-24 13:12] LABS: Bacteria,Urine Moderate /hpf; Bilirubin,Urine Negative (Negative); Clarity,Urine Turbid (Clear); Color,Urine Yellow (Yellw/Straw); Glucose,Urine (UA) 50 mg/dL (Negative); Leukocyte Esterase,Urine Moderate (Negative); Nitrite,Urine Negative (Negative); Specific Gravity,Urine 1.025 (1.002-1.035); Urobilinogen,Urine 4 or Greater mg/dL (Less than 2)
[2018-01-24] MEDS ORDERED: fentaNYL Citrate Inj 100 MCG/2 ML Ampul ONE (13:22)
--- NOTE | 2018-01-24 14:10 | MP ---
cc: Mukesh Rodrigues MD DATE OF OPERATION: 01/24/2018 PREOPERATIVE DIAGNOSES: Right lower extremity tissue loss and end-stage renal disease. POSTOPERATIVE DIAGNOSES: Right lower extremity tissue loss and end-stage renal disease. PROCEDURE PERFORMED: Right femoral artery exploration. ATTENDING SURGEON: Mukesh Rodrigues MD DUCK OPERATOR SURGEON: ANTHONY Ramos, PA/Technical Services Representative ANESTHESIA: General. INDICATIONS: Ms. Jarrell is a 72-year-old lady with multiple comorbidities who is minimally ambulatory and has extensive right foot tissue loss. She was taken to the operating room for attempted bypass. Intraoperatively, it was found that the common femoral artery was so calcified it was ____ and she would need significant arterial reconstruction of her groin. After a discussion with the , a decision was made to abort the procedure in anticipation of a major amputation. DESCRIPTION OF PROCEDURE: Informed consent was obtained from the patient and the and she was taken to the operating room and placed supine on the operating room table. An appropriate timeout was taken to ensure the patient's identity, operative site and planned procedure. The administration of 1 gram of vancomycin was initiated prior to skin incision and will be discontinued after a single preoperative dose. Vancomycin was chosen because of the patient's end-stage renal disease. Everyone in the room agreed with the timeout and we proceeded. Her right leg from her nipples to her toes was prepped. An oblique incision was made in the patient's right groin and carried down through the subcutaneous tissues with electrocautery. The wound was noted to be quite deep. The common femoral artery was identified. It was noted to be calcified and a side branch was ligated for hemostasis. The entire artery was noted to be so calcified that it would require arterial reconstruction to do a satisfactory bypass. The wound was then irrigated and made hemostatic. Surgicel and spray thrombin were applied and the wound was closed with 2-0 Polysorb, 3-0 Polysorb and 4-0 Monocryl. The sponge and needle counts were correct at the end of the case. I was present and scrubbed and performed the entire procedure. MD DUARTE Matos/luis/dane , 01:07 PM , 01:15 PM
--- NOTE | 2018-01-24 16:51 | P.PNID ---
Subjective Remarks: Notes reviewed. Patient noted to not have vessel that can be bypassed. drowsy from sedation for procedure. No fever. HISTORY OF PRESENT ILLNESS: This is a 72-year-old white female who is known to me from previous hospitalizations. The patient was last admitted for a dehisced wound at the left tibia from a vascular procedure at the end of November. She had Pseudomonas aeruginosa cultured from the leg and also Klebsiella pneumoniae. She was discharged on cefepime, which she was receiving at hemodialysis center. She developed redness of her right foot and it became progressively worse with increased erythema and purplish discoloration at the right fifth toe and at the base of the fifth toe as well. Antibiotics: Meropenem Daptomycin Diflucan Doxycycline. 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 Allergies/Adverse Reactions: Allergies amlodipine Allergy (Severe, Verified 12/22/17 22:56) Edema, Generalized adhesive tape Allergy (Unknown, Verified 12/22/17 22:56) Generalized Itching Redness Objective Vital Signs 01/23/18 20:00 01/24/18 00:00 01/24/18 04:00 Temperature 97.8 F 98 F 98.6 F Pulse Rate 62 62 59 L Respiratory Rate 20 20 20 Blood Pressure 142/65 H 144/63 H 119/53 L Pulse Oximetry 96 96 94 L 01/24/18 07:58 01/24/18 08:03 01/24/18 13:14 Temperature 98.0 F 97.4 F L Pulse Rate 64 58 L 52 L Respiratory Rate 17 24 Blood Pressure 119/55 L 112/53 L Pulse Oximetry 96 100 01/24/18 13:15 01/24/18 13:30 01/24/18 14:00 Temperature 97.5 F L Pulse Rate 52 L 54 L 53 L Respiratory Rate 24 24 24 Blood Pressure 105/52 L 106/63 114/58 L Pulse Oximetry 100 97 96 01/24/18 14:57 Temperature 97.5 F L Pulse Rate 54 L Respiratory Rate 17 Blood Pressure 118/56 L Pulse Oximetry 98 Intake & Output 01/23/18 01/24/18 01/24/18 18:59 06:59 18:59 Intake Total 1200 / 1200 350 / 350 Output Total 2200 / 2200 40 / 40 Balance -1000 / -1000 310 / 310 Weight 106.3 kg Intake: IV 1200 / 1200 0 / 0 Heparin/NS PF Inj 500 ML @ 0 0 / 0 mls/hr .ROUTE .K-MED ONE Rx#: [id number] Diflucan 200 mg Premix Bag 100 100 / 100 ML @ 100 mls/hr IV.SIG Q24H [facility] Rx#:[id number] Merrem Inj 1,000 MG In NS Inj 100 / 100 100 ML @ 200 mls/hr IV.SIG Q24H [facility] Rx#:[id number] NS Inj 1,000 ML @ As Directed 1000 / 1000 OTHER .Q0M PRN Rx#:[id number] Oral 0 / 0 Anesthesia Amount 350 / 350 Output: Urine 0 / 0 Hemodialysis Amount 1500 / 1500 Estimated Blood Loss 30 / 30 Urine Amount (Catheter) 700 / 700 10 Indwelling Urethral Catheter Straight 700 / 700 Other: Date of Last Bowel Movement 01/23/18 01/24/18 # Bowel Movements 1 1 01/24/18 11:30 Catheterized Urine Urine Culture - Pending Lab - Hematology Results 01/24/18 03:32 WBC 11.8 H RBC 3.34 L Hgb 9.7 L Hct 30.7 L MCV 92.0 MCH 29.0 MCHC 31.5 L RDW 20.0 H Plt Count 251 MPV 7.9 Neut % (Auto) 70.6 H Lymph % (Auto) 11.7 [place] % (Auto) 14.0 H Eos % (Auto) 2.8 Baso % (Auto) 0.9 Neut # (Auto) 8.3 H Lymph # (Auto) 1.4 [place] # (Auto) 1.6 H Eos # (Auto) 0.3 Baso # (Auto) 0.1 WBC Differential . Differential Comment Auto diff final Lab - Chemistry Results 01/22/18 01/22/18 01/23/18 17:16 21:51 08:12 Sodium Potassium Chloride Carbon Dioxide Anion Gap BUN Creatinine Estimated GFR POC Glucose 278 H 145 H 167 H Random Glucose Calcium 01/23/18 01/23/18 01/23/18 12:24 18:34 21:34 Sodium Potassium Chloride Carbon Dioxide Anion Gap BUN Creatinine Estimated GFR POC Glucose 191 H 157 H 254 H Random Glucose Calcium 01/24/18 01/24/18 01/24/18 03:32 07:42 13:20 Sodium 138 Potassium 4.0 Chloride 96 L Carbon Dioxide 28.7 Anion Gap 13 BUN 29 H Creatinine 3.90 H Estimated GFR 11 L POC Glucose 161 H 125 H Random Glucose 159 H Calcium 8.3 L 01/24/18 16:36 Sodium Potassium Chloride Carbon Dioxide Anion Gap BUN Creatinine Estimated GFR POC Glucose 117 H Random Glucose Calcium Imaging: ITS Impressions Femur CT 01/12/18 00:00 CONCLUSION: 1. Soft tissue defect in the anterior upper left thigh and the medial distal left thigh at the level of the knee. 2. Diffuse subcutaneous soft tissue edema. No drainable abscess identified. Aorta w/Runoff CTA 01/15/18 00:00 CONCLUSION: 1. Diffuse atherosclerotic disease with moderate distal aortic stenosis at the bifurcation. 2. Bilateral moderate common iliac artery stenosis, likely overestimated due to degree of calcified plaque. 3. Left femoral to above-knee popliteal artery bypass graft with critical stenosis of the proximal anastomosis and mild stenosis of the distal anastomosis. 4. Diffuse right SFA disease with tandem moderate stenoses in the proximal thigh and tandem severe stenoses in the distal thigh. Diffuse right popliteal artery disease. 5. Limited single vessel runoff on the right. The peroneal artery with reconstitution of the anterior tibial artery in the distal calf. 6. Limited two-vessel runoff on the left. Diffusely diseased posterior tibial and peroneal arteries. 7. Stable 10 mm nodule in the right lung base. Follow-up examination in 3-6 months is again recommended to document stability. 8. Stable additional ancillary findings, as above. Extremity Arterial Study 01/15/18 00:00 CONCLUSION: Findings of severe disease on the right side with nondiagnostic evaluation on the left. CT angiography of the abdominal aorta and lower extremities is recommended for further evaluation if clinically indicated. Head CT 01/16/18 00:00 CONCLUSION: 1. No acute findings in the brain. . Foot X-Ray 01/20/18 00:00 CONCLUSION: No acute findings. No evidence of bony destruction or new periosteal reaction. Physical Exam: GENERAL: No acute distress. Awake, drowsy. HEENT: Head is atraumatic. Extraocular movements grossly intact. Pupils reactive to light. No icterus. No conjunctival erythema. Oropharynx mucosa moist. NECK: Supple without adenopathy. LUNGS: Clear to auscultation. HEART: Regular S1, S2, without murmurs, rubs or gallops. ABDOMEN: Bowel sounds present, obese, soft, nontender. EXTREMITIES: The left inner thigh has chronic open ulceration with good granulation tissue, mild erythema at the edge of the lower aspect and some necrosis at the lower aspect near the edge. Lateral left thigh erythema slightly decreased. The left inner tibial area where the dehisced surgical incision has few specks of necrosis. Mild redness at the dorsum of the foot at the base of the toes #3 and 4. The right 5th toe and 5th MTP is dry/gangrenous. mild erythema at toes 3 and 4. SKIN: No diffuse rash. NEUROLOGIC: No gross focal finding. PSYCHIATRIC: calm, and cooperative. Assessment and Plan - Plan IMPRESION: 1. Severe peripheral vascular disease, now involving the right foot with gangrene at the right fifth toe and base of the right fifth toe. 2. Open wound of the left inner tibia which grew out Pseudomonas and Klebsiella, sensitive to cefepime in late November. 3. Chronic open wound of the left inner groin/thigh which has had positive bacteria in the past and was treated with antibiotics and was doing well with dressing changes. 4. Left lateral thigh ecchymosis/cellulitis. 5. Diabetes mellitus. 6. End-stage renal disease on hemodialysis RECOMMENDATIONS: 1. Continue daptomycin. 2. Continue Meropenem. 3. Continue Diflucan. 4. Continue doxycycline. 5. Monitor wounds and clinical response.
[2018-01-24] MEDS: Psyllium Husk SF 3.4 GM in 5.8 GM Packet PO SCH (17:53)
[2018-01-24] MEDS: Ezetimibe 10 MG Tablet PO SCH (17:56)
--- NOTE | 2018-01-24 18:08 | P.PNGS ---
Physical Exam Vital signs: Vital Signs 01/23/18 20:00 01/24/18 00:00 01/24/18 04:00 Temperature 97.8 F 98 F 98.6 F Pulse Rate 62 62 59 L Respiratory Rate 20 20 20 Blood Pressure 142/65 H 144/63 H 119/53 L Pulse Oximetry 96 96 94 L 01/24/18 07:58 01/24/18 08:03 01/24/18 13:14 Temperature 98.0 F 97.4 F L Pulse Rate 64 58 L 52 L Respiratory Rate 17 24 Blood Pressure 119/55 L 112/53 L Pulse Oximetry 96 100 01/24/18 13:15 01/24/18 13:30 01/24/18 14:00 Temperature 97.5 F L Pulse Rate 52 L 54 L 53 L Respiratory Rate 24 24 24 Blood Pressure 105/52 L 106/63 114/58 L Pulse Oximetry 100 97 96 01/24/18 14:57 Temperature 97.5 F L Pulse Rate 54 L Respiratory Rate 17 Blood Pressure 118/56 L Pulse Oximetry 98 Intake & Output 01/23/18 01/24/18 01/24/18 18:59 06:59 18:59 Intake Total 1200 / 1200 750 / 750 Output Total 2200 / 2200 40 / 40 Balance -1000 / -1000 710 / 710 Weight 106.3 kg Intake: IV 1200 / 1200 0 / 0 Heparin/NS PF Inj 500 ML @ 0 0 / 0 mls/hr .ROUTE .STK-MED ONE Rx#: [id number] Diflucan 200 mg Premix Bag 100 100 / 100 ML @ 100 mls/hr IV.SIG Q24H [facility] Rx#:[id number] Merrem Inj 1,000 MG In NS Inj 100 / 100 100 ML @ 200 mls/hr IV.SIG Q24H [facility] Rx#:[id number] NS Inj 1,000 ML @ As Directed 1000 / 1000 OTHER .Q0M PRN Rx#:[id number] Oral 400 / 400 Anesthesia Amount 350 / 350 Output: Urine 0 / 0 Hemodialysis Amount 1500 / 1500 Estimated Blood Loss 30 / 30 Urine Amount (Catheter) 700 / 700 10 / 10 Indwelling Urethral Catheter 10 10 Straight 700 / 700 Other: Date of Last Bowel Movement 01/23/18 01/24/18 # Bowel Movements 1 1 Narrative: 72-year-old lady known to me from previous encounters when I took care of her left leg issues. Patient now has gangrene of the right foot Fully agree with Dr. Rodrigues. The option of doing a femoral to distal bypass at this point is probably not reasonable considering the patient already has gangrene of the foot and this would only temporize the situation for about few weeks and subject patient to another surgery. After reviewing lobe origin diagnostic procedures and examining the patient I fully agree that patient will benefit most from a right above-knee amputation which would be one single procedure and quite certainly to heal Therefore agree with Dr. Rodrigues to proceed with a right above-knee amputation Thanks J - Urinary Catheter Management Straight Cath placed during this visit: no Reason for continuing: Hourly intake/output Indwelling Urethral Catheter Cath placed during this visit: yes, but has since been removed by the nurse Reason for continuing: Decision to DC catheter Insertion date: 01/24/18 Insertion time: 11:30 Removal date: 01/24/18 Removal time: 12:50
[2018-01-24] MEDS: DAPTOmycin Inj 600 MG in Sodium Chlor 0.9% Inj 100 ML IV.SIG SCH (19:30)
[2018-01-25] MEDS: Levothyroxine 125 MCG Tablet PO SCH (05:25)
[2018-01-25] MEDS: Insulin NovoLOG Aspart Correctional Sugar Inj SQ SCH ×4 (09:49→21:18)
[2018-01-25] MEDS: Famotidine 20 MG Tablet PO SCH ×2 (09:49→19:59)
[2018-01-25] MEDS: Gabapentin 100 MG Capsule PO SCH ×2 (09:49→19:59)
[2018-01-25] MEDS: Carvedilol 6.25 MG Tablet PO SCH ×2 (09:49→19:59)
[2018-01-25] MEDS: Minocycline 100 MG Capsule PO SCH ×2 (09:49→19:59)
[2018-01-25] MEDS: Insulin Detemir Inj 1,000 UNIT/10 ML Vial SQ SCH ×2 (09:49→21:15)
--- NOTE | 2018-01-25 10:12 | P.PNVS ---
Subjective Post Op Day #: 1 Procedure: Right groin exploration Subjective/Hospital Course: Pt eating breakfast this am in good spirits Pt s/p B LE angiogram (w/ L bypass [employer]) that showed significant infrageniculate disease. Pt S/P R groin exploration POD 1 w/ findings of no bypassable vessel Pt and are aware of an above the knee amputation (planning) Questions answered . Objective Vital Signs / I&O: Vital Signs 01/24/18 13:14 01/24/18 13:15 01/24/18 13:30 Temperature 97.4 F L Pulse Rate 52 L 52 L 54 L Respiratory Rate 24 24 24 Blood Pressure 112/53 L 105/52 L 106/63 Pulse Oximetry 100 100 97 01/24/18 14:00 01/24/18 14:57 01/24/18 20:00 Temperature 97.5 F L 97.5 F L 97.3 F L Pulse Rate 53 L 54 L 53 L Respiratory Rate 24 17 20 Blood Pressure 114/58 L 118/56 L 125/58 L Pulse Oximetry 96 98 97 01/24/18 20:45 01/24/18 21:20 01/25/18 00:00 Temperature 97.4 F L Pulse Rate 55 L Respiratory Rate 20 Blood Pressure 124/58 L Pulse Oximetry 97 93 L 98 01/25/18 04:00 01/25/18 08:00 01/25/18 08:51 Temperature 98 F 98.5 F Pulse Rate 60 63 Respiratory Rate 20 18 Blood Pressure 135/59 L 120/68 Pulse Oximetry 96 94 L 95 Intake & Output 01/24/18 01/25/18 01/25/18 18:59 06:59 18:59 Intake Total 750 / 750 540 / 540 Output Total 40 / 40 Balance 710 / 710 540 / 540 Weight 109.9 kg Intake: IV 0 / 0 300 / 300 Heparin/NS PF Inj 500 ML @ 0 0 / 0 mls/hr .ROUTE .STK-MED ONE Rx#: [id number] Cubicin Inj 600 MG In NS Inj 100 / 100 100 ML @ 200 mls/hr IV.SIG Q48H [facility] Rx#:[id number] Diflucan 200 mg Premix Bag 100 100 / 100 ML @ 100 mls/hr IV.SIG Q24H [facility] Rx#:[id number] Merrem Inj 1,000 MG In NS Inj 100 / 100 100 ML @ 200 mls/hr IV.SIG Q24H [facility] Rx#:[id number] Oral 400 / 400 240 / 240 Anesthesia Amount 350 / 350 Output: Urine 0 / 0 Estimated Blood Loss Urine Amount (Catheter) Indwelling Urethral Catheter Other: Date of Last Bowel Movement 01/24/18 # Bowel Movements 1 Exam: R groin S/NT Prevena wound vac to R groin w/o hematoma or swelling [employer]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 Laboratory Results - last 24 hr 01/24/18 01/24/18 01/24/18 11:30 13:20 16:36 POC Glucose 125 H 117 H Urine Color Yellow Urine Clarity Turbid H Urine pH 5.0 Ur Specific [place] 1.025 Urine Protein 100 H Urine Glucose (UA) 50 Urine Ketones Trace H Urine Occult Blood Moderate H Urine Nitrate Negative Urine Bilirubin Negative Urine Urobilinogen 4 or greater Ur Leukocyte Esterase Moderate H Urine RBC 36 H Urine WBC Urine WBC Clumps Many H Urine Bacteria Moderate H Micro UA Comment Culture indicated Ur Microscopic Review Not Reportable Urine Culture Comments Culture indicated 01/24/18 01/25/18 20:26 08:14 POC Glucose 154 H 153 H Urine Color Urine Clarity Urine pH Ur Specific [place] Urine Protein Urine Glucose (UA) Urine Ketones Urine Occult Blood Urine Nitrate Urine Bilirubin Urine Urobilinogen Ur Leukocyte Esterase Urine RBC Urine WBC Urine WBC Clumps Urine Bacteria Micro UA Comment Ur Microscopic Review Urine Culture Comments Assessment and Plan - Assessment (1) Peripheral vascular disease of lower extremity with ulceration Code(s): I73.9 - Peripheral vascular disease, unspecified; L97.909 - Non- pressure chronic ulcer of unspecified part of unspecified lower leg with unspecified severity Status: Acute - Plan 72/F with a PMH of PAD and ESRD Pt S/P R groin exploration w/ findings of no bypassable vessel Pt and aware of an above the knee amputation -Planning Pt and agree w/ plan Plan Discussed and reviewed AKA surgical intervention w/ pt and R AKA planning for early next week Continue wound care Continue to Limit narcotic medication Continue PT Dorota Mariee NP [employer] [facility] [phone]
--- NOTE | 2018-01-25 10:16 | P.PN ---
Subjective Interval history: Follow up: RLE ischemia, lower extremity cellulitis Complained of pain earlier, received pain medications and feels much better now. Says takes pain meds Q8 Hrs and is not controlled. Will give ore often discussed with the patient, at bedside and the nurse. Patient denies fever, chills overnight. No nausea or vomiting. However she is not eating much. Has decreased appetite. Also at bedside. Patient and is aware of plan for amputation and agree. Patient hopes she will have less pain and she will feel better afterwards. Physical Exam Vital signs: Vital Signs 01/24/18 13:14 01/24/18 13:15 01/24/18 13:30 Temperature 97.4 F L Pulse Rate 52 L 52 L 54 L Respiratory Rate 24 24 24 Blood Pressure 112/53 L 105/52 L 106/63 Pulse Oximetry 100 100 97 01/24/18 14:00 01/24/18 14:57 01/24/18 20:00 Temperature 97.5 F L 97.5 F L 97.3 F L Pulse Rate 53 L 54 L 53 L Respiratory Rate 24 17 20 Blood Pressure 114/58 L 118/56 L 125/58 L Pulse Oximetry 96 98 97 01/24/18 20:45 01/24/18 21:20 01/25/18 00:00 Temperature 97.4 F L Pulse Rate 55 L Respiratory Rate 20 Blood Pressure 124/58 L Pulse Oximetry 97 93 L 98 01/25/18 04:00 01/25/18 08:00 01/25/18 08:51 Temperature 98 F 98.5 F Pulse Rate 60 63 Respiratory Rate 20 18 Blood Pressure 135/59 L 120/68 Pulse Oximetry 96 94 L 95 Intake & Output 01/24/18 01/25/18 01/25/18 18:59 06:59 18:59 Intake Total 750 / 750 540 / 540 Output Total 40 / 40 Balance 710 / 710 540 / 540 Weight 109.9 kg Intake: IV 0 / 0 300 / 300 Heparin/NS PF Inj 500 ML @ 0 0 / 0 mls/hr .ROUTE .STK-[facility] Rx#: [id number] Cubicin Inj 600 MG In NS Inj 100 / 100 100 ML @ 200 mls/hr IV.SIG Q48H [facility] Rx#:[id number] Diflucan 200 mg Premix Bag 100 100 / 100 ML @ 100 mls/hr IV.SIG Q24H [facility] Rx#:[id number] Merrem Inj 1,000 MG In NS Inj 100 / 100 100 ML @ 200 mls/hr IV.SIG Q24H [facility] Rx#:[id number] Oral 400 / 400 240 / 240 Anesthesia Amount 350 / 350 Output: Urine 0 / 0 Estimated Blood Loss 30 / 30 Urine Amount (Catheter) 10 Indwelling Urethral Catheter Other: Date of Last Bowel Movement 01/24/18 # Bowel Movements 1 Narrative: GENERAL: Patient lying in bed. Appears comfortable. SKIN: Right fifth toe dry gangrene. Minimal surrounding erythema. Dressing to left groin intact. NECK: Supple, trachea midline. No JVD CARDIOVASCULAR: Regular rate and rhythm RESPIRATORY: Breath sounds equal bilaterally. No accessory muscle use. GASTROINTESTINAL: Abdomen soft, non-tender, nondistended. MUSCULOSKELETAL: No edema. BACK: Nontender without obvious deformity. No CVA tenderness. - Urinary Catheter Management Straight Cath placed during this visit: no Reason for continuing: Hourly intake/output Indwelling Urethral Catheter Cath placed during this visit: yes, but has since been removed by the nurse Reason for continuing: Decision to DC catheter Insertion date: 01/24/18 Insertion time: 11:30 Removal date: 01/24/18 Removal time: 12:50 Results - Labs CBC & Chem 7: 01/24/18 03:32 01/24/18 03:32 Laboratory Results - last 24 hr 01/24/18 01/24/18 01/24/18 11:30 13:20 16:36 POC Glucose 125 H 117 H Urine Color Yellow Urine Clarity Turbid H Urine pH 5.0 Ur Specific Issue 1.025 Urine Protein 100 H Urine Glucose (UA) 50 Urine Ketones Trace H Urine Occult Blood Moderate H Urine Nitrate Negative Urine Bilirubin Negative Urine Urobilinogen 4 or greater Ur Leukocyte Esterase Moderate H Urine RBC 36 H Urine WBC Urine WBC Clumps Many H Urine Bacteria Moderate H Micro UA Comment Culture indicated Ur Microscopic Review Not Reportable Urine Culture Comments Culture indicated 01/24/18 01/25/18 20:26 08:14 POC Glucose 154 H 153 H Urine Color Urine Clarity Urine pH Ur Specific Issue Urine Protein Urine Glucose (UA) Urine Ketones Urine Occult Blood Urine Nitrate Urine Bilirubin Urine Urobilinogen Ur Leukocyte Esterase Urine RBC Urine WBC Urine WBC Clumps Urine Bacteria Micro UA Comment Ur Microscopic Review Urine Culture Comments Assessment and Plan - Plan 72 y/o WF admitted for intract BL LE pain. Right lower extremity cellulitis, left groin and left popliteal wounds, with possible acute on chronic ischemia from PAD -Infectious disease following, continue Cubicin, prior VRE in the past, continue meropenem and Diflucan per infectious disease. -Vascular surgery Dr. 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 Per surgery, does not appear to be amenable to endovascular revascularization with any hope of long-term durability. For second opinion from Dr. Rodrigues. If she cannot be profuse, she will need major amputation. -Continue wound care left groin popliteal once. CT scan of the left thigh showed tissue defect in the left thigh and medial distal left thigh at the level of the knee. Diffuse subcutaneous edema. No abscess. Blood culture remains negative. -continue home fentanyl and gabapentin and oxycodone. -We will defer antiplatelet therapy (home medicine being Plavix) to vascular surgery in case procedure is warranted. = 01/17. Continue antibiotics as per ID. Vascular surgery following. Plan for intervention tomorrow. =01/18. Appreciate vascular surgery intervention. Patient underwent angiogram. Plan as per podiatry. Continue antibiotics as per ID. = 01/19. Status post bilateral revascularization procedure. Continue antibiotics as per infectious disease. Appreciate vascular surgery assistance. = 01/20. Appreciate vascular surgery assistance. Will consult podiatry as per vascular surgery recommendations for right fifth toe resection. = 01/21. Family present would like to speak with Dr. Rodrigues. Nursing will see if Dr. Rodrigues can discuss with family = 01/22. Family, patient had discussion with Dr. Rodrigues. Planning for revascularization early this week. Appreciate vascular surgery assistance. Continue antibiotics as per infectious disease. =01/23. patient offers no new concerns looking forward to surgery tomorrow =01/25 s/p B LE angiogram (w/ L bypass DRY TALC RACKER) that showed significant infrageniculate disease. Pt S/P R groin exploration on 01/24/[address] Rodrigues findings of no bypassable vessel Both Dr Rodrigues vascular surgeon and Dr Shell recommends amputation Pt and are aware of an above the knee amputation Pain is not controlled. Change roxycodone po to q6 hrs prn PAD -defer Plavix therapy to vasc surgery. -continue home statin; will check CPK once weekly since pt is started on dapto given risk of myositis. = 01/17 vascular surgery procedure tomorrow. =01/18. Status post angiogram. Appreciate vascular surgery assistance. = 01/20. Appreciate vascular surgery assistance. = 01/21. Await vascular surgery discussion with family. = plan surgery 01/24 Hypertension-controlled, Coreg, Diabetes type I Patient wants to use her home insulin pump. -Sliding scale as needed. = 01/21. Will add low-dose Levemir as patient is on dialysis = 01/22 glucose acceptable. Continue to monitor. =01/24 Levemir held patient NPO for surgery Nephrology End-stage renal disease, dialysis Tuesday. -dialysis per nephrology. Constipation Chronic. last BM 01/23 -Continue Metamucil per pt request. Chronic pain The pt is on hospice as an outpt. -pain control. Hospital induced delirium/. Discussed with family. Would recommend possible Seroquel, who her family does not feel this is appropriate. Would not like to change pain regimen at this time as pain appears controlled. Would recommend family or another facility her face could see with patient overnight. No mechanical DVT prophylaxis due to lower extremity conditions, heparin for DVT prophylaxis. Discharge Planning: When cleared by ID, vascular surgery, podiatry. plan for amputation, date to be determined by surgeon Discussed with the patient, at bedside, nurse, surgeon.
[2018-01-25] MEDS: Heparin - SQ 10,000 UNITS/ML Vial SQ SCH (12:12)
[2018-01-25] MEDS: Collagenase Oint 30 GM Tube TOPICAL SCH (12:13)
--- NOTE | 2018-01-25 13:32 | P.PNID ---
Subjective Remarks: Patient complaining of pain in the right groin. Looks drowsy. at bedside. No other complaints. No fever. Patient noted to not have vessel that can be bypassed on attempts at revascularization 01/24/2018. Urine culture result pending. HISTORY OF PRESENT ILLNESS: This is a 72-year-old white female who is known to me from previous hospitalizations. The patient was last admitted for a dehisced wound at the left tibia from a vascular procedure at the end of November. She had Pseudomonas aeruginosa cultured from the leg and also Klebsiella pneumoniae. She was discharged on cefepime, which she was receiving at hemodialysis center. She developed redness of her right foot and it became progressively worse with increased erythema and purplish discoloration at the right fifth toe and at the base of the fifth toe as well. Antibiotics: Meropenem Daptomycin Diflucan Doxycycline. 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 Allergies/Adverse Reactions: Allergies amlodipine Allergy (Severe, Verified 12/22/17 22:56) Edema, Generalized adhesive tape Allergy (Unknown, Verified 12/22/17 22:56) Generalized Itching Redness Objective Vital Signs 01/24/18 13:30 01/24/18 14:00 01/24/18 14:57 Temperature 97.5 F L 97.5 F L Pulse Rate 54 L 53 L 54 L Respiratory Rate 24 24 17 Blood Pressure 106/63 114/58 L 118/56 L Pulse Oximetry 97 96 98 01/24/18 20:00 01/24/18 20:45 01/24/18 21:20 Temperature 97.3 F L Pulse Rate 53 L Respiratory Rate 20 Blood Pressure 125/58 L Pulse Oximetry 97 97 93 L 01/25/18 00:00 01/25/18 04:00 01/25/18 08:00 Temperature 97.4 F L 98 F 98.5 F Pulse Rate 55 L 60 63 Respiratory Rate 20 20 18 Blood Pressure 124/58 L 135/59 L 120/68 Pulse Oximetry 98 96 94 L 01/25/18 08:51 01/25/18 12:00 Temperature 98.9 F Pulse Rate 67 Respiratory Rate 18 Blood Pressure 136/63 Pulse Oximetry 95 94 L Intake & Output 01/24/18 01/25/18 01/25/18 18:59 06:59 18:59 Intake Total 750 / 750 540 / 540 Output Total 40 / 40 Balance 710 / 710 540 / 540 Weight 109.9 kg Intake: IV 0 / 0 300 / 300 Heparin/NS PF Inj 500 ML @ 0 0 / 0 mls/hr .ROUTE .STK-MED [facility] Rx#: [id number] Cubicin Inj 600 MG In NS Inj 100 / 100 100 ML @ 200 mls/hr IV.SIG Q48H [facility] Rx#:[id number] Diflucan 200 mg Premix Bag 100 100 / 100 ML @ 100 mls/hr IV.SIG Q24H [facility] Rx#:[id number] Merrem Inj 1,000 MG In NS Inj 100 / 100 100 ML @ 200 mls/hr IV.SIG Q24H [facility] Rx#:[id number] Oral 400 / 400 240 / 240 Anesthesia Amount 350 / 350 Output: Urine 0 / 0 Estimated Blood Loss 30 30 Urine Amount (Catheter) Indwelling Urethral Catheter Other: Date of Last Bowel Movement 01/24/18 01/24/18 # Bowel Movements 1 01/24/18 11:30 Catheterized Urine Urine Culture - Pending Lab - Hematology Results 01/24/18 03:32 WBC 11.8 H RBC 3.34 L Hgb 9.7 L Hct 30.7 L MCV 92.0 MCH 29.0 MCHC 31.5 L RDW 20.0 H Plt Count 251 MPV 7.9 Neut % (Auto) 70.6 H Lymph % (Auto) 11.7 [place] % (Auto) 14.0 H Eos % (Auto) 2.8 Baso % (Auto) 0.9 Neut # (Auto) 8.3 H Lymph # (Auto) 1.4 [place] # (Auto) 1.6 H Eos # (Auto) 0.3 Baso # (Auto) 0.1 WBC Differential . Differential Comment Auto diff final Lab - Chemistry Results 01/23/18 01/23/18 01/24/18 18:34 21:34 03:32 Sodium 138 Potassium 4.0 Chloride 96 L Carbon Dioxide 28.7 Anion Gap 13 BUN 29 H Creatinine 3.90 H Estimated GFR 11 L POC Glucose 157 H 254 H Random Glucose 159 H Calcium 8.3 L 01/24/18 01/24/18 01/24/18 07:42 13:20 16:36 Sodium Potassium Chloride Carbon Dioxide Anion Gap BUN Creatinine Estimated GFR POC Glucose 161 H 125 H 117 H Random Glucose Calcium 01/24/18 01/25/18 01/25/18 20:26 08:14 11:46 Sodium Potassium Chloride Carbon Dioxide Anion Gap BUN Creatinine Estimated GFR POC Glucose 154 H 153 H 162 H Random Glucose Calcium Imaging: ITS Impressions Femur CT 01/12/18 00:00 CONCLUSION: 1. Soft tissue defect in the anterior upper left thigh and the medial distal left thigh at the level of the knee. 2. Diffuse subcutaneous soft tissue edema. No drainable abscess identified. Aorta w/Runoff CTA 01/15/18 00:00 CONCLUSION: 1. Diffuse atherosclerotic disease with moderate distal aortic stenosis at the bifurcation. 2. Bilateral moderate common iliac artery stenosis, likely overestimated due to degree of calcified plaque. 3. Left femoral to above-knee popliteal artery bypass graft with critical stenosis of the proximal anastomosis and mild stenosis of the distal anastomosis. 4. Diffuse right SFA disease with tandem moderate stenoses in the proximal thigh and tandem severe stenoses in the distal thigh. Diffuse right popliteal artery disease. 5. Limited single vessel runoff on the right. The peroneal artery with reconstitution of the anterior tibial artery in the distal calf. 6. Limited two-vessel runoff on the left. Diffusely diseased posterior tibial and peroneal arteries. 7. Stable 10 mm nodule in the right lung base. Follow-up examination in 3-6 months is again recommended to document stability. 8. Stable additional ancillary findings, as above. Extremity Arterial Study 01/15/18 00:00 CONCLUSION: Findings of severe disease on the right side with nondiagnostic evaluation on the left. CT angiography of the abdominal aorta and lower extremities is recommended for further evaluation if clinically indicated. Head CT 01/16/18 00:00 CONCLUSION: 1. No acute findings in the brain. . Foot X-Ray 01/20/18 00:00 CONCLUSION: No acute findings. No evidence of bony destruction or new periosteal reaction. Physical Exam: GENERAL: No acute distress. Awake, drowsy. HEENT: Head is atraumatic. Extraocular movements grossly intact. Pupils reactive to light. No icterus. No conjunctival erythema. Oropharynx mucosa moist. NECK: Supple without adenopathy. LUNGS: Clear to auscultation. HEART: Regular S1, S2, without murmurs, rubs or gallops. ABDOMEN: Bowel sounds present, obese, soft, nontender. EXTREMITIES: The left inner thigh has chronic open ulceration with good granulation tissue, mild erythema at the edge of the lower aspect and some necrosis at the lower aspect near the edge. Lateral left thigh erythema slightly decreased. The left inner tibial area where the dehisced surgical incision has few specks of necrosis. Right groin has sponge overlying surgical incision. No surrounding redness. Mild redness at the dorsum of the foot at the base of the toes #3 and 4. The right 5th toe and 5th MTP is dry/gangrenous. mild erythema at toes 3 and 4. SKIN: No diffuse rash. NEUROLOGIC: No gross focal finding. PSYCHIATRIC: calm, and cooperative. Assessment and Plan - Plan IMPRESION: 1. Severe peripheral vascular disease, now involving the right foot with gangrene at the right fifth toe and base of the right fifth toe. -Vascular disease not fixable with vascular procedure. Plans for right above- the-knee amputation in progress. 2. Open wound of the left inner tibia which grew out Pseudomonas and Klebsiella, sensitive to cefepime in late November. 3. Chronic open wound of the left inner groin/thigh which has had positive bacteria in the past and was treated with antibiotics and was doing well with dressing changes. 4. Left lateral thigh ecchymosis/cellulitis. Stable. 5. Diabetes mellitus. 6. End-stage renal disease on hemodialysis RECOMMENDATIONS: 1. Continue daptomycin. 2. Continue Meropenem. 3. Continue Diflucan. 4. Continue doxycycline. 5. Monitor wounds and clinical response. 6. Due to difficulty with blood draws, a Purdy catheter will be ordered Spoke to wound care about special mattress because of patient being placed at the left thigh and to avoid further pressure ulcerations.
[2018-01-25 15:15] LABS: Baso # (Auto) 0.2 th/mm3 (0.0-0.2); Baso % (Auto) 1.1 % (0.0-2.0); Eos # (Auto) 0.2 th/mm3 (0.0-0.4); Eos % (Auto) 1.5 % (0.0-4.0); Hematocrit 31.9 % (35.0-46.0); Hemoglobin 10.1 gm/dL (11.6-15.3); Lymph # (Auto) 1.3 th/mm3 (1.0-4.8); Lymph % (Auto) 9.2 % (9.0-44.0); Mean Corpuscular HGB Conc 31.5 % (32.0-36.0); Mean Corpuscular Volume 92.1 fL (80.0-100.0); Mean Platelet Volume 7.8 fL (7.0-11.0); Mono % (Auto) 6.9 % (0.0-8.0); Neut # (Auto) 11.5 th/mm3 (1.8-7.7); Neut % (Auto) 81.3 % (16.0-70.0); Platelet Count 249 th/mm3 (150-450); Red Blood Count 3.46 mil/mm3 (4.00-5.30); Red Cell Distribution Width 20.1 % (11.6-17.2); White Blood Count 14.2 th/mm3 (4.0-11.0)
[2018-01-25 15:35] LABS: Calcium 8.5 mg/dL (8.5-10.1); Potassium 4.3 meq/L (3.5-5.1)
[2018-01-25] MEDS: Psyllium Husk SF 3.4 GM in 5.8 GM Packet PO SCH (18:19)
[2018-01-25] MEDS: Ezetimibe 10 MG Tablet PO SCH (18:21)
--- NOTE | 2018-01-25 18:24 | P.PNNP ---
Subjective Interval history: Patient is just got back from dialysis. Except for discomfort at the operative site no verbal complaints. by bedside. Physical Exam Vital signs: Vital Signs 01/24/18 20:00 01/24/18 20:45 01/24/18 21:20 Temperature 97.3 F L Pulse Rate 53 L Respiratory Rate 20 Blood Pressure 125/58 L Pulse Oximetry 97 97 93 L 01/25/18 00:00 01/25/18 04:00 01/25/18 08:00 Temperature 97.4 F L 98 F 98.5 F Pulse Rate 55 L 60 63 Respiratory Rate 20 20 18 Blood Pressure 124/58 L 135/59 L 120/68 Pulse Oximetry 98 96 94 L 01/25/18 08:51 01/25/18 12:00 Temperature 98.9 F Pulse Rate 67 Respiratory Rate 18 Blood Pressure 136/63 Pulse Oximetry 95 94 L Intake & Output 01/24/18 01/25/18 01/25/18 18:59 06:59 18:59 Intake Total 750 / 750 540 / 540 720 / 720 Output Total 40 / 40 1500 / 1500 Balance 710 / 710 540 / 540 -780 / -780 Weight 109.9 kg Intake: IV 0 / 0 300 / 300 Heparin/NS PF Inj 500 ML @ 0 0 / 0 mls/hr .ROUTE .ST-MED [facility] Rx#: [id number] Cubicin Inj 600 MG In NS Inj 100 / 100 100 ML @ 200 mls/hr IV.SIG Q48H [facility] Rx#:[id number] Diflucan 200 mg Premix Bag 100 100 / 100 ML @ 100 mls/hr IV.SIG Q24H [facility] Rx#:[id number] Merrem Inj 1,000 MG In NS Inj 100 / 100 100 ML @ 200 mls/hr IV.SIG Q24H [facility] Rx#:[id number] Oral 400 / 400 240 / 240 720 / 720 Anesthesia Amount 350 / 350 Output: Urine 0 / 0 Hemodialysis Amount 1500 / 1500 Estimated Blood Loss 30 / 30 Urine Amount (Catheter) Indwelling Urethral Catheter Other: Date of Last Bowel Movement 01/24/18 01/24/18 # Bowel Movements 1 Narrative: GENERAL: Patient lying in bed. Appears comfortable. SKIN: Right fifth toe dry gangrene. Minimal surrounding erythema. Dressing to left groin intact. NECK: Supple, trachea midline. No JVD CARDIOVASCULAR: Regular rate and rhythm RESPIRATORY: Breath sounds equal bilaterally. No accessory muscle use. GASTROINTESTINAL: Abdomen soft, non-tender, nondistended. MUSCULOSKELETAL: 2+ pitting edema involving the hip left side. Erythema improved however. BACK: Nontender without obvious deformity. No CVA tenderness. - Urinary Catheter Management Straight Cath placed during this visit: no Reason for continuing: Hourly intake/output Indwelling Urethral Catheter Cath placed during this visit: yes, but has since been removed by the nurse Reason for continuing: Decision to DC catheter Insertion date: 01/24/18 Insertion time: 11:30 Removal date: 01/24/18 Removal time: 12:50 Assessment and Plan - Assessment (1) ESRD (end stage renal disease) on dialysis Code(s): N18.6 - End stage renal disease; Z99.2 - Dependence on renal dialysis Status: Acute Plan: Continue hemodialysis Tuesday. Patient's overall condition has been declining over the last several weeks. Patient still with significant comorbidities and increasing debilitation. Prognosis guarded. Gadolinium is contraindicated. Medication should be adjusted for the patient's end-stage renal disease when indicated. (2) Peripheral vascular disease of lower extremity with ulceration Code(s): I73.9 - Peripheral vascular disease, unspecified; L97.909 - Non- pressure chronic ulcer of unspecified part of unspecified lower leg with unspecified severity Status: Acute Plan: Unfortunately right lower extremity bypass attempt was unsuccessful and she is now scheduled for amputation. (3) Cellulitis Code(s): L03.90 - Cellulitis, unspecified Status: Acute Qualifiers: Site of cellulitis: extremity Site of cellulitis of extremity: lower extremity Laterality: left Qualified Code(s): L03.116 - Cellulitis of left lower limb Plan: Vascular surgery believes probability of calciphylaxis is very low and biopsy associated with significant risk as far as healing is concerned. As mentioned previously laboratory results did not appear to be consistent with significant probability for calciphylaxis and the patient does unfortunately have diffuse atherosclerotic disease which likely accounts for clinical findings. (4) DM (diabetes mellitus) Code(s): E11.9 - Type 2 diabetes mellitus without complications Status: Acute Plan: Mgmt per primary
[2018-01-26] MEDS: Levothyroxine 125 MCG Tablet PO SCH (05:15)
[2018-01-26] MEDS ORDERED: Heparin Central Flush 100 UNIT/ML 5 ML Vial IV.FLUSH ONE (07:47)
[2018-01-26] MEDS ORDERED: Lidocaine 1%/Epinephrine 1:100,000 Inj 20 ML Vial ONE (07:47)
[2018-01-26] MEDS ORDERED: fentaNYL Citrate Inj 100 MCG/2 ML Ampul ONE (07:59)
--- NOTE | 2018-01-26 09:57 | IR ---
EXAM DATE: 01/26/2018 9:28 AM EDT AGE/SEX: 72 years / Female INDICATIONS: Patient presents with an infection to her right foot in need of Puryd catheter for an tibiotics. CLINICAL DATA: This is the patient's initial encounter. Patient reports that signs and symptoms have been present for 1 day and indicates a pain score of 6/10. MEDICAL/SURGICAL HISTORY: Diabetes. Chronic renal failure. Hypertension. Hypercholesteremia, Left groin wound infection, Cholecystectomy. Appendectomy. Popliteal arterial bypass graft, Coron brian artery bypass graft COMPARISON: No prior exams available for comparison. FLUORO TIME (min): :40 IMAGE SERIES: 1 SEDATION TIME (min): 30 MEDICATION(S): 1.5mg midazolam (Versed) IV 75mcg fentanyl (Sublimaze) IV DEVICE(S): Right 9F Purdy Duel Lumen . . PROCEDURE : 1. Fluoroscopic guidance. 2. Purdy catheter placement 3. Conscious sedation with continuous EKG and oximetry monitoring. The risks, benefits and alternatives to the procedure were explained and verbal and written consent w as obtained. The site was prepped in sterile fashion. Full sterile technique was used, including ca p, mask, sterile gloves and gown and a large sterile sheet. Hand hygiene and 2% chlorhexidine and Be tadine was utilized per protocol for cutaneous antisepsis with appropriate dry time for site. The sk in and subcutaneous tissues were infiltrated with local anesthetic solution. With fluoroscopic guidance a dermatotomy was created in the supraclavicular region. A micropuncture set was used to access to the prescribed vein and serial dilatation was performed to accept a Purdy catheter. A subcutaneous tunnel was created and in antegrade fashion the catheter was pulled throug h the tunnel, cut to the appropriate length and place through the sheath. The catheter was locked wi th heparin and sutured in place. Conscious sedation was performed with the prescribed dosages and duration as above in the presence of an independent trained radiology nurse to assist in the monitoring of the patient. EKG and oximetry remained stable throughout the procedure. The patient tolerated the procedure well and there were no complications. The patient was sent to post anesthesia recovery in stable condition. CONCLUSION: Uncomplicated ultrasound and fluoroscopic guided Purdy catheter placement as above. Electronically signed by: Rosendo Ruth MD 01/26/2018 9:55 AM EDT
[2018-01-26] MEDS: Minocycline 100 MG Capsule PO SCH ×2 (10:47→20:51)
[2018-01-26] MEDS: Gabapentin 100 MG Capsule PO SCH ×2 (10:47→20:51)
[2018-01-26] MEDS: Famotidine 20 MG Tablet PO SCH ×2 (10:47→20:49)
[2018-01-26] MEDS: Carvedilol 6.25 MG Tablet PO SCH ×2 (10:48→20:51)
[2018-01-26] MEDS: Insulin NovoLOG Aspart Correctional Sugar Inj SQ SCH ×4 (10:48→20:53)
[2018-01-26] MEDS: Insulin Detemir Inj 1,000 UNIT/10 ML Vial SQ SCH ×2 (10:48→20:51)
[2018-01-26] MEDS: Collagenase Oint 30 GM Tube TOPICAL SCH (10:50)
[2018-01-26] MEDS ORDERED: Heparin Central Flush 100 UNIT/ML 5 ML Vial IV.FLUSH PRN (11:49)
[2018-01-26] MEDS ORDERED: Naloxone Inj 0.4 MG/ML Vial IV.PUSH PRN (13:43)
--- NOTE | 2018-01-26 14:00 | P.PNID ---
Subjective Remarks: Patient complaining of pain in the right groin. Looks drowsy. at bedside. No other complaints. No fever. Patient noted to not have vessel that can be bypassed on attempts at revascularization 01/24/2018. Urine culture result has no growth. HISTORY OF PRESENT ILLNESS: This is a 72-year-old white female who is known to me from previous hospitalizations. The patient was last admitted for a dehisced wound at the left tibia from a vascular procedure at the end of November. She had Pseudomonas aeruginosa cultured from the leg and also Klebsiella pneumoniae. She was discharged on cefepime, which she was receiving at hemodialysis center. She developed redness of her right foot and it became progressively worse with increased erythema and purplish discoloration at the right fifth toe and at the base of the fifth toe as well. Antibiotics: Meropenem Daptomycin Diflucan Doxycycline. 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 Allergies/Adverse Reactions: Allergies amlodipine Allergy (Severe, Verified 12/22/17 22:56) Edema, Generalized adhesive tape Allergy (Unknown, Verified 12/22/17 22:56) Generalized Itching Redness Objective Vital Signs 01/25/18 19:09 01/25/18 20:00 01/25/18 21:10 Temperature 98.6 F Pulse Rate 61 Respiratory Rate 16 Blood Pressure 108/52 L Pulse Oximetry 94 L 93 L 93 L 01/26/18 00:00 01/26/18 04:00 01/26/18 08:00 Temperature 97.1 F L 97.1 F L Pulse Rate 60 62 68 Respiratory Rate 16 16 Blood Pressure 116/66 112/56 L Pulse Oximetry 94 L 94 L 01/26/18 09:20 01/26/18 09:50 01/26/18 10:37 Temperature 97.7 F Pulse Rate 73 63 68 Respiratory Rate 20 Blood Pressure 140/73 111/56 L 123/58 L Pulse Oximetry 94 L 97 94 L 01/26/18 12:00 Temperature 97.3 F L Pulse Rate 57 L Respiratory Rate 18 Blood Pressure 130/76 Pulse Oximetry 96 Intake & Output 01/25/18 01/26/18 01/26/18 18:59 06:59 18:59 Intake Total 720 / 720 200 / 200 Output Total 1500 / 1500 Balance -780 / -780 200 / 200 Weight 116 kg Intake: IV 200 / 200 Diflucan 200 mg Premix Bag 100 100 / 100 ML @ 100 mls/hr IV.SIG Q24H [facility] Rx#:[id number] Merrem Inj 1,000 MG In NS Inj 100 / 100 100 ML @ 200 mls/hr IV.SIG Q24H [facility] Rx#:[id number] Oral 720 / 720 Output: Hemodialysis Amount 1500 / 1500 Other: Date of Last Bowel Movement 01/24/18 01/24/18 # Bowel Movements 1 01/24/18 11:30 Catheterized Urine Urine Culture - Final Lab - Hematology Results 01/25/18 14:30 WBC 14.2 H RBC 3.46 L Hgb 10.1 L Hct 31.9 L MCV 92.1 MCH 29.0 MCHC 31.5 L RDW 20.1 H Plt Count 249 MPV 7.8 Neut % (Auto) 81.3 H Lymph % (Auto) 9.2 [place] % (Auto) 6.9 Eos % (Auto) 1.5 Baso % (Auto) 1.1 Neut # (Auto) 11.5 H Lymph # (Auto) 1.3 [place] # (Auto) 1.0 H Eos # (Auto) 0.2 Baso # (Auto) 0.2 WBC Differential . Differential Comment Auto diff final Lab - Chemistry Results 01/24/18 01/24/18 01/25/18 16:36 20:26 08:14 Sodium Potassium Chloride Carbon Dioxide Anion Gap BUN Creatinine Estimated GFR POC Glucose 117 H 154 H 153 H Random Glucose Calcium 01/25/18 01/25/18 01/25/18 11:46 14:30 17:37 Sodium 136 Potassium 4.3 Chloride 97 L Carbon Dioxide 30.0 Anion Gap 9 BUN 30 H Creatinine 3.88 H Estimated GFR 11 L POC Glucose 162 H 109 Random Glucose 118 H Calcium 8.5 01/25/18 01/26/18 01/26/18 20:10 07:56 12:06 Sodium Potassium Chloride Carbon Dioxide Anion Gap BUN Creatinine Estimated GFR POC Glucose 142 H 189 H 193 H Random Glucose Calcium Imaging: ITS Impressions Femur CT 01/12/18 00:00 CONCLUSION: 1. Soft tissue defect in the anterior upper left thigh and the medial distal left thigh at the level of the knee. 2. Diffuse subcutaneous soft tissue edema. No drainable abscess identified. Aorta w/Runoff CTA 01/15/18 00:00 CONCLUSION: 1. Diffuse atherosclerotic disease with moderate distal aortic stenosis at the bifurcation. 2. Bilateral moderate common iliac artery stenosis, likely overestimated due to degree of calcified plaque. 3. Left femoral to above-knee popliteal artery bypass graft with critical stenosis of the proximal anastomosis and mild stenosis of the distal anastomosis. 4. Diffuse right SFA disease with tandem moderate stenoses in the proximal thigh and tandem severe stenoses in the distal thigh. Diffuse right popliteal artery disease. 5. Limited single vessel runoff on the right. The peroneal artery with reconstitution of the anterior tibial artery in the distal calf. 6. Limited two-vessel runoff on the left. Diffusely diseased posterior tibial and peroneal arteries. 7. Stable 10 mm nodule in the right lung base. Follow-up examination in 3-6 months is again recommended to document stability. 8. Stable additional ancillary findings, as above. Extremity Arterial Study 01/15/18 00:00 CONCLUSION: Findings of severe disease on the right side with nondiagnostic evaluation on the left. CT angiography of the abdominal aorta and lower extremities is recommended for further evaluation if clinically indicated. Head CT 01/16/18 00:00 CONCLUSION: 1. No acute findings in the brain. . Foot X-Ray 01/20/18 00:00 CONCLUSION: No acute findings. No evidence of bony destruction or new periosteal reaction. Purdy Line Insertion 01/26/18 00:00 CONCLUSION: Uncomplicated ultrasound and fluoroscopic guided Purdy catheter placement as above. Physical Exam: GENERAL: No acute distress. Awake. HEENT: No icterus. No conjunctival erythema. Oropharynx mucosa moist. NECK: Supple without adenopathy. LUNGS: Clear to auscultation. HEART: Regular S1, S2, without murmurs, rubs or gallops. ABDOMEN: Bowel sounds present, obese, soft, nontender. EXTREMITIES: The left inner thigh has chronic open ulceration with good granulation tissue, mild erythema at the edge of the lower aspect and some necrosis at the lower aspect near the edge. Lateral left thigh erythema decreased. The left inner tibial area where the dehisced surgical incision has few specks of necrosis. Right groin has sponge overlying surgical incision. No surrounding redness. Mild redness at the dorsum of the foot at the base of the toes #3 and 4. The right 5th toe and 5th MTP is dry/gangrenous. mild erythema at toes 3 and 4. SKIN: No diffuse rash. NEUROLOGIC: No gross focal finding. PSYCHIATRIC: calm, and cooperative. Assessment and Plan - Plan IMPRESION: 1. Severe peripheral vascular disease, now involving the right foot with gangrene at the right fifth toe and base of the right fifth toe. -Vascular disease not fixable with vascular procedure. Plans for right above- the-knee amputation in progress. 2. Open wound of the left inner tibia which grew out Pseudomonas and Klebsiella, sensitive to cefepime in late November. 3. Chronic open wound of the left inner groin/thigh which has had positive bacteria in the past and was treated with antibiotics and was doing well with dressing changes. 4. Left lateral thigh ecchymosis/cellulitis. Stable. 5. Diabetes mellitus. 6. End-stage renal disease on hemodialysis RECOMMENDATIONS: 1. Continue daptomycin. 2. Continue Meropenem. 3. Continue Diflucan. 4. Continue doxycycline. 5. Monitor wounds and clinical response.
--- NOTE | 2018-01-26 14:16 | P.PNPOD ---
Subjective Interval history: Left 5th digit dry eschar. Pt denies any pain. She is seen at bedside with her . She is scheduled for a right leg amputation next week. Physical Exam Vital signs: Vital Signs 01/25/18 19:09 01/25/18 20:00 01/25/18 21:10 Temperature 98.6 F Pulse Rate 61 Respiratory Rate 16 Blood Pressure 108/52 L Pulse Oximetry 94 L 93 L 93 L 01/26/18 00:00 01/26/18 04:00 01/26/18 08:00 Temperature 97.1 F L 97.1 F L Pulse Rate 60 62 68 Respiratory Rate 16 16 Blood Pressure 116/66 112/56 L Pulse Oximetry 94 L 94 L 01/26/18 09:20 01/26/18 09:50 01/26/18 10:37 Temperature 97.7 F Pulse Rate 73 63 68 Respiratory Rate 20 Blood Pressure 140/73 111/56 L 123/58 L Pulse Oximetry 94 L 97 94 L 01/26/18 12:00 Temperature 97.3 F L Pulse Rate 57 L Respiratory Rate 18 Blood Pressure 130/76 Pulse Oximetry 96 Intake & Output 01/25/18 01/26/18 01/26/18 18:59 06:59 18:59 Intake Total 720 / 720 200 / 200 Output Total 1500 / 1500 Balance -780 / -780 200 / 200 Weight 116 kg Intake: IV 200 / 200 Diflucan 200 mg Premix Bag 100 100 / 100 ML @ 100 mls/hr IV.SIG Q24H [facility] Rx#:[id number] Merrem Inj 1,000 MG In NS Inj 100 / 100 100 ML @ 200 mls/hr IV.SIG Q24H [facility] Rx#:[id number] Oral 720 / 720 Output: Hemodialysis Amount 1500 / 1500 Other: Date of Last Bowel Movement 01/24/18 01/24/18 # Bowel Movements 1 Narrative: Left foot non palpable pulses, but no ischemia seen or felt. Previous second digit amputation site is healed. Dry eschar to the lateral 5th toe without any erythema. Medications and Allergies Active Medications: Active Medications Acetaminophen (Tylenol) 650 mg PO UNSCH PRN PRN Reason: SEE LABEL COMMENTS Atorvastatin Calcium (Lipitor) 40 mg PO QPM [facility] Last Admin: 01/25/18 18:21 Dose: 40 mg Carvedilol (Coreg) 6.25 mg PO BID [facility] Last Admin: 01/26/18 10:48 Dose: 6.25 mg Chlorhexidine Gluconate (Chlorhexidine 2% Cloth) 3 pack [employer] [facility] Stop: 01/27/18 01:46 Cinacalcet (Sensipar) 30 mg PO DAILY [facility] Last Admin: 01/26/18 10:47 Dose: 30 mg Clonidine HCl (Catapres) 0.1 mg PO UNSCH PRN PRN Reason: SEE LABEL COMMENTS Collagenase (Santyl Oint) 1 applicatio TOPICAL DAILY [facility] Last Admin: 01/26/18 10:50 Dose: 1 applicatio Dextrose (D50w Vial) 50 ml IV.PUSH UNSCH PRN PRN Reason: PER HYPOGLYCEMIA PROTOCOL Diphenhydramine HCl (Benadryl) 25 mg PO UNSCH PRN PRN Reason: SEE LABEL COMMENTS Ezetimibe (Zetia) 10 mg PO QPM [facility] Last Admin: 01/25/18 18:21 Dose: 10 mg Epoetin Dio (Epogen Inj) 10,000 unit IV.PUSH UNSCH PRN PRN Reason: SEE LABEL COMMENTS Last Admin: 01/23/18 18:39 Dose: 10,000 unit Famotidine (Pepcid) 10 mg PO BID [facility] Last Admin: 01/26/18 10:47 Dose: 10 mg Gabapentin (Neurontin) 100 mg PO BID [facility] Last Admin: 01/26/18 10:47 Dose: 100 mg Gelatin (Gelfoam 12 Mm/7 Mm Topical) 1 foam TOPICAL PRN PRN PRN Reason: help stop bleeding from site Last Admin: 01/23/18 18:40 Dose: 1 foam Gentamicin Sulfate (Gentamicin Inj) 20 mg OTHER WITH DIALYSIS PRN PRN Reason: Dwell Gentamycin Lock Glucagon (Glucagon Inj) 1 mg OTHER PRN PRN PRN Reason: for Hypoglycemia Protocol Heparin Sodium (Porcine) (Heparin Inj) 1,000 units OTHER WITH DIALYSIS PRN PRN Reason: Dwell Heparin to Fill Catheter Heparin Sodium (Porcine) (Heparin Inj) 8,000 units OTHER WITH DIALYSIS PRN PRN Reason: for machine prime Heparin Sodium (Porcine) (Heparin Inj) 5,000 units SQ Q12H [facility] Last Admin: 01/25/18 12:12 Dose: 5,000 units Heparin Sodium (Porcine) (Heparin Central Flush) 0 unit IV.FLUSH DAILY [facility] Heparin Sodium (Porcine) (Heparin Central Flush) 0 unit IV.FLUSH PRN PRN PRN Reason: Flush each lumen Daptomycin 600 mg/ Sodium (Chloride) 100 mls @ 200 mls/hr IV.SIG Q48H [facility] Last Infusion: 01/24/18 20:20 Dose: Infused Fluconazole (Diflucan 200 Mg Premix Bag) 100 mls @ 100 mls/hr IV.SIG Q24H [facility] Last Infusion: 01/25/18 21:47 Dose: Infused Albumin Human (Flexbumin 25% Inj) 100 mls @ 60 mls/hr IV.SIG WITH DIALYSIS PRN PRN Reason: hypotension / volume replace Sodium Chloride (Ns Inj) 1,000 mls @ 0 mls/hr OTHER .Q0M PRN PRN Reason: for prime and rinse back Last Infusion: 01/23/18 20:00 Dose: Infused Sodium Chloride (Ns Inj) 1,000 mls @ 200 mls/hr OTHER .Q5H PRN PRN Reason: for dialyzer flush PRN Sodium Chloride (Ns Inj) 1,000 mls @ 0 mls/hr IV.CONT .Q0M PRN PRN Reason: hypotension / volume replace Meropenem 1,000 mg/ Sodium (Chloride) 100 mls @ 200 mls/hr IV.SIG Q24H [facility] Last Infusion: 01/25/18 19:22 Dose: Infused Sodium Chloride (Ns Inj) 500 mls @ 30 mls/hr IV.SIG .Q10H [facility] Stop: 01/27/18 01:46 Lactated Ringer's (Lr 1000 Ml Inj) 1,000 mls @ 30 mls/hr IV.SIG .Q24H [facility] Stop: 01/27/18 01:46 Last Admin: 01/26/18 01:35 Dose: Not Given Insulin Aspart (Novolog Insulin Correctional Sugar Inj) 0 unit SQ ACHS [facility]; Protocol Last Admin: 01/26/18 12:15 Dose: 2 unit Insulin Detemir (Levemir Inj) 2 unit SQ BID [facility] Last Admin: 01/26/18 10:48 Dose: Not Given Levothyroxine Sodium (Synthroid) 125 mcg PO DAILY@0600 [facility] Last Admin: 01/26/18 05:15 Dose: 125 mcg Mannitol (Mannitol Inj) 12.5 gm IV.PUSH UNSCH PRN PRN Reason: hypotension / volume replace Minocycline HCl (Minocin) 100 mg PO Q12HR [facility] Last Admin: 01/26/18 10:47 Dose: 100 mg Naloxone HCl (Narcan Inj) 0.4 mg IV.PUSH Q2M PRN PRN Reason: persistant lethargy Nitroglycerin (Nitrostat Sl) 0.4 mg SL Q5M PRN PRN Reason: CHEST PAIN Oxycodone HCl (Roxicodone) 10 mg PO Q4H PRN PRN Reason: Pain 3 to 10 Patch Removal (Remove Old Patch) 1 each T-DERMAL Q3D [facility] Last Admin: 01/24/18 17:53 Dose: Not Given Povidone Iodine (Betadine 5% Antisepsis Kit) 1 applicatio EACH [employer] [facility] Stop: 01/27/18 01:46 Psyllium Hydrophilic Mucilloid (Metamucil Fiber Sf Pkt) 1 pack PO DAILY@1700 [facility] Last Admin: 01/25/18 18:19 Dose: Not Given Sevelamer Carbonate (Renvela) 800 mg PO QID [facility] Last Admin: 01/26/18 12:15 Dose: 800 mg Sodium Chloride (Ns Flush) 5 ml IV.FLUSH PRN PRN PRN Reason: flush each lumen during HD Sodium Chloride (Ns Flush) 2 ml IV.FLUSH BID [facility] Last Admin: 01/26/18 10:49 Dose: 2 ml Sodium Chloride (Ns Flush) 2 ml IV.FLUSH PRN PRN PRN Reason: FLUSH AFTER USING IV ACCESS Sodium Chloride (Ns Flush) 0 ml IV.FLUSH DAILY [facility] Sodium Chloride (Ns Flush) 0 ml IV.FLUSH PRN PRN PRN Reason: FLUSH AFTER USING IV ACCESS Allergies Allergy/AdvReac Type Severity Reaction Status Date / Time amlodipine Allergy Severe Edema, Verified 12/22/17 22:56 Generalized adhesive tape Allergy Unknown Generalized Verified 12/22/17 22:56 Itching Home Medications Medication Instructions Recorded Confirmed Type carvedilol [Coreg] 6.25 mg PO BID 12/22/17 01/12/18 History cinacalcet [Sensipar] 30 mg PO DAILY 12/22/17 01/12/18 History clopidogrel [Plavix] 75 mg PO DAILY 12/22/17 01/12/18 History ezetimibe-simvastatin [Vytorin 1 tab PO QPM 12/22/17 01/12/18 History 10-80] gabapentin 100 mg PO BID 12/22/17 01/12/18 History insulin pump-infus. set-meter 12/22/17 01/16/18 History levothyroxine 0.125 mg PO DAILY 12/22/17 01/12/18 History ranitidine HCl [Zantac] 150 mg PO BID 12/22/17 01/12/18 History sevelamer carbonate [Renvela] 800 mg PO QID 12/22/17 01/12/18 History clindamycin HCl 300 mg PO TID 01/12/18 01/12/18 History fentanyl 1 patch TRANSDERMAL Q72H 01/12/18 01/12/18 History oxycodone 10 mg PO Q4H PRN 01/12/18 01/12/18 History Results - Labs CBC & Chem 7: 01/25/18 14:30 01/25/18 14:30 Laboratory Results - last 24 hr 01/25/18 01/25/18 01/25/18 14:30 14:30 17:37 WBC 14.2 H RBC 3.46 L Hgb 10.1 L Hct 31.9 L MCV 92.1 MCH 29.0 MCHC 31.5 L RDW 20.1 H Plt Count 249 MPV 7.8 Neut % (Auto) 81.3 H Lymph % (Auto) 9.2 [place] % (Auto) 6.9 Eos % (Auto) 1.5 Baso % (Auto) 1.1 Neut # (Auto) 11.5 H Lymph # (Auto) 1.3 [place] # (Auto) 1.0 H Eos # (Auto) 0.2 Baso # (Auto) 0.2 WBC Differential . Differential Comment Auto diff final Sodium 136 Potassium 4.3 Chloride 97 L Carbon Dioxide 30.0 Anion Gap 9 BUN 30 H Creatinine 3.88 H Estimated GFR 11 L POC Glucose 109 Random Glucose 118 H Calcium 8.5 01/25/18 01/26/18 01/26/18 20:10 07:56 12:06 WBC RBC Hgb Hct MCV MCH MCHC RDW Plt Count MPV Neut % (Auto) Lymph % (Auto) [place] % (Auto) Eos % (Auto) Baso % (Auto) Neut # (Auto) Lymph # (Auto) [place] # (Auto) Eos # (Auto) Baso # (Auto) WBC Differential Differential Comment Sodium Potassium Chloride Carbon Dioxide Anion Gap BUN Creatinine Estimated GFR POC Glucose 142 H 189 H 193 H Random Glucose Calcium Microbiology 01/24/18 11:30 Catheterized Urine Urine Culture - Final - Imaging Impressions Purdy Line Insertion 01/26/18 00:00 CONCLUSION: Uncomplicated ultrasound and fluoroscopic guided Purdy catheter placement as above. Assessment and Plan - Assessment (1) Osteomyelitis of left foot Code(s): M86.9 - Osteomyelitis, unspecified Status: Acute (2) Gangrene of right foot Code(s): I96 - Gangrene, not elsewhere classified Status: Acute - Plan -pt and her which to avoid any surgery to the left foot, as she has a leg amputation planned for the right side next week. The toe appears very stable and even shows improvement since revascularation. I do not feel that refraining from surgery will be detrimental to her health at this time. She is aware that there is always a chance of progression and possible amputation in the future. Will monitor the patient intermittently while in house.
--- NOTE | 2018-01-26 15:13 | P.PNIM ---
Subjective Interval history: Some pain complaints today, present prior to Q6hr pain treatment interval. Plan for amputation on Tuesday01/31/18. No new complaints. Physical Exam Vital signs: Vital Signs 01/25/18 19:09 01/25/18 20:00 01/25/18 21:10 Temperature 98.6 F Pulse Rate 61 Respiratory Rate 16 Blood Pressure 108/52 L Pulse Oximetry 94 L 93 L 93 L 01/26/18 00:00 01/26/18 04:00 01/26/18 08:00 Temperature 97.1 F L 97.1 F L Pulse Rate 60 62 68 Respiratory Rate 16 16 Blood Pressure 116/66 112/56 L Pulse Oximetry 94 L 94 L 01/26/18 09:20 01/26/18 09:50 01/26/18 10:37 Temperature 97.7 F Pulse Rate 73 63 68 Respiratory Rate 20 Blood Pressure 140/73 111/56 L 123/58 L Pulse Oximetry 94 L 97 94 L 01/26/18 12:00 Temperature 97.3 F L Pulse Rate 57 L Respiratory Rate 18 Blood Pressure 130/76 Pulse Oximetry 96 Intake & Output 01/25/18 01/26/18 01/26/18 18:59 06:59 18:59 Intake Total 720 / 720 200 / 200 Output Total 1500 / 1500 Balance -780 / -780 200 / 200 Weight 116 kg Intake: IV 200 / 200 Diflucan 200 mg Premix Bag 100 100 / 100 ML @ 100 mls/hr IV.SIG Q24H [facility] Rx#:[id number] Merrem Inj 1,000 MG In NS Inj 100 / 100 100 ML @ 200 mls/hr IV.SIG Q24H [facility] Rx#:[id number] Oral 720 / 720 Output: Hemodialysis Amount 1500 / 1500 Other: Date of Last Bowel Movement 01/24/18 01/24/18 # Bowel Movements 1 Narrative: GENERAL: NAD, A&Ox3 HEAD: Normocephalic. NECK: Supple, trachea midline. No lymphadenopathy. EYES: No scleral icterus. No injection or drainage. CARDIOVASCULAR: Regular rate and rhythm without murmurs, gallops, or rubs. RESPIRATORY: Breath sounds equal bilaterally. No accessory muscle use. GASTROINTESTINAL: Abdomen soft, non-tender, nondistended. MUSCULOSKELETAL: No cyanosis, or edema. Right distal leg has poor capillary flow. Right lateral foot is gangrenous. SKIN: Warm and dry. NEURO: No focal neurological deficits. - Urinary Catheter Management Straight Cath placed during this visit: no Reason for continuing: Hourly intake/output Indwelling Urethral Catheter Cath placed during this visit: yes, but has since been removed by the nurse Reason for continuing: Decision to DC catheter Insertion date: 01/24/18 Insertion time: 11:30 Removal date: 01/24/18 Removal time: 12:50 Results - Labs CBC & Chem 7: 01/25/18 14:30 01/25/18 14:30 Laboratory Results - last 24 hr 01/25/18 01/25/18 01/25/18 14:30 14:30 17:37 WBC 14.2 H RBC 3.46 L Hgb 10.1 L Hct 31.9 L MCV 92.1 MCH 29.0 MCHC 31.5 L RDW 20.1 H Plt Count 249 MPV 7.8 Neut % (Auto) 81.3 H Lymph % (Auto) 9.2 [place] % (Auto) 6.9 Eos % (Auto) 1.5 Baso % (Auto) 1.1 Neut # (Auto) 11.5 H Lymph # (Auto) 1.3 [place] # (Auto) 1.0 H Eos # (Auto) 0.2 Baso # (Auto) 0.2 WBC Differential . Differential Comment Auto diff final Sodium 136 Potassium 4.3 Chloride 97 L Carbon Dioxide 30.0 Anion Gap 9 BUN 30 H Creatinine 3.88 H Estimated GFR 11 L POC Glucose 109 Random Glucose 118 H Calcium 8.5 01/25/18 01/26/18 01/26/18 20:10 07:56 12:06 WBC RBC Hgb Hct MCV MCH MCHC RDW Plt Count MPV Neut % (Auto) Lymph % (Auto) [place] % (Auto) Eos % (Auto) Baso % (Auto) Neut # (Auto) Lymph # (Auto) [place] # (Auto) Eos # (Auto) Baso # (Auto) WBC Differential Differential Comment Sodium Potassium Chloride Carbon Dioxide Anion Gap BUN Creatinine Estimated GFR POC Glucose 142 H 189 H 193 H Random Glucose Calcium Microbiology 01/24/18 11:30 Catheterized Urine Urine Culture - Final - Imaging Impressions Purdy Line Insertion 01/26/18 00:00 CONCLUSION: Uncomplicated ultrasound and fluoroscopic guided Purdy catheter placement as above. Assessment and Plan - Assessment (1) Cellulitis Code(s): L03.90 - Cellulitis, unspecified Status: Acute (2) ESRD (end stage renal disease) on dialysis Code(s): N18.6 - End stage renal disease; Z99.2 - Dependence on renal dialysis Status: Acute (3) HTN (hypertension) Code(s): I10 - Essential (primary) hypertension Status: Acute (4) DM (diabetes mellitus) Code(s): E11.9 - Type 2 diabetes mellitus without complications Status: Acute (5) Gangrene of right foot Code(s): I96 - Gangrene, not elsewhere classified Status: Acute - Plan 72 y/o WF admitted for BL LE pain secondary to infection/gangrene. Right lower extremity cellulitis left groin and left popliteal wounds PAD Right lower extremity gangrene Lower extremity limb ischemia Plan for right lower extremity amputation Vascular surgeon following Podiatry following Trauma surgeon following Continue statin Continue pain management Hypertension Continue Coreg Monitor blood pressures Diabetes type I Continue insulin pump Follow blood sugars Insulin sliding scale Diabetic diet End-stage renal disease Continue dialysis Tuesday. Continue dialysis per nephrology Nephrology following Constipation Chronic. Continue Metamucil Chronic pain Continue pain control. Hospital induced delirium/. Supportive care DVT Prophylaxis Heparin Discharge Planning: Limb amputation pending prior to discharge (1) Cellulitis Qualifiers: Site of cellulitis: extremity Site of cellulitis of extremity: lower extremity Laterality: left Qualified Code(s): L03.116 - Cellulitis of left lower limb
--- NOTE | 2018-01-26 16:00 | P.PNWCN ---
Wound Care Nurse Consult Description: Wound consult ordered by for wound management. Recommendation: 1. Ensure patient has heel protectors on when in bed avoiding contact with surface. 2. Cleanse all wounds with normal saline only.Pat dry 3. Apply Calazime cream in thin layer to periwound. 4. Apply Santyl 2mm thick to L groin wound base and left medial surgical wound base. 5. Cover with saline moistened gauze cover with ABD secure with rolled gauze and minimal pieces of tape. 6. Sign and date all dressings.Skin prep Right calcaneus and Right 5th digit BID. Wound/Pressure Injury - Patient Status Premedicated for Pain Prior to Dressing Change: No - Wound Right Foot Wound Assessment: Ongoing Wound Type: Traumatic Wound Is This a Chronic Wound: No Requested from Provider a Wound Care Consult: No (Markus MERCADO,[facility] seen 01/26) Wound Bed Appearance: Necrotic Surrounding Tissue Appearance: Bright Red, Dark Red Surrounding Tissue Temperature: Cold Drainage Amount: None Drainage Odor: No Odor Dressing Status: Open to Air Topical: Povidine-Iodine (Betadine) Wound Dressing Change Date: 01/13/18 Left Groin Wound Assessment: Ongoing Wound Type: Traumatic Wound Is This a Chronic Wound: No Requested from Provider a Wound Care Consult: No (Markus MERCADO,[facility] seen 01/13) Length: 10 Width: 17.3 Depth: 1.0 Wound Bed Appearance: Necrotic, Red Surrounding Tissue Appearance: [place] Surrounding Tissue Temperature: Warm Drainage Description: Serosanguinous Drainage Amount: Minimal Drainage Odor: No Odor Dressing Status: Changed Cleansing Solution: Saline Topical: Enzymatic Debridement Ointment Wound Packing Type: Gauze Pads Primary Dressing: Gauze Pad Cover Dressing: Absorbant Pad Tape Type: Paper Wound Dressing Change Date: 01/26/18 Left medial Wound Assessment: Ongoing Wound Type: Traumatic Wound Is This a Chronic Wound: No Requested from Provider a Wound Care Consult: No Length: 12.4 Width: 2.2 Depth: 1.8 Wound Bed Appearance: Necrotic, Red, Yellow Surrounding Tissue Appearance: Erythema Surrounding Tissue Temperature: Warm Drainage Description: Serosanguinous Drainage Amount: Minimal Drainage Odor: Slight Odor Dressing Status: Changed Topical: Enzymatic Debridement Ointment Primary Dressing: Gauze Pad Cover Dressing: Absorbant Pad Tape Type: Paper Left medial surgical Length: 14.8 Width: 3.9 Depth: 1.6 Wound Dressing Change Date: 01/17/18 Right heel Length: 1.5 Width: 2.0 Wound Bed Appearance: Necrotic Wound Bed Appearance: 100% firmly adhered dry black eschar Incision - Patient Status Premedicated for Pain Prior to Dressing Change: No - Incision Left Groin Incision Assessment: Ongoing Incision Type: Incision Incision Description: Open Incision Bed Appearance: Necrotic, [place], Red, Shiny, White Surrounding Tissue Appearance: Bright Red Surrounding Tissue Temperature: Warm Drainage Description: Serosanguinous Drainage Amount: None Drainage Odor: No Odor Incision Dressing Status: Dry & Intact Incision Cleaning Solution: Saline Topical: Santyl Incision Packing Type: Gauze Pads Primary Dressing: Gauze Pad Cover Dressing: Absorbant Pad Tape Type: Paper Right Groin Incision Assessment: Ongoing Incision Type: Incision Incision Description: Liquid Adhesive (MASTISOL) Drainage Amount: None Drainage Odor: No Odor Incision Dressing Status: Dry & Intact Incision Packing Type: Woundvac Sponge Primary Dressing: Negative Pressure Wound Dressing (PREVENA) Incision/Surgery Date: 01/24/18 Left Anterior Calf Incision Assessment: Ongoing Incision Type: Incision Incision Description: Steri-Strips Incision Bed Appearance: Necrotic, [place], Red, Shiny, White Surrounding Tissue Appearance: Bright Red Surrounding Tissue Temperature: Warm Drainage Description: Serosanguinous Drainage Amount: None Drainage Odor: No Odor Incision Dressing Status: Dry & Intact Incision Cleaning Solution: Saline Topical: Santyl Incision Packing Type: Gauze Pads Primary Dressing: Absorbant Pad Cover Dressing: Gauze Roll/Wrap Tape Type: Paper Right Upper Chest Incision Assessment: Ongoing Incision Type: Incision Incision Description: Steri-Strips Surrounding Tissue Temperature: Warm Incision Dressing Status: Dry & Intact Primary Dressing: Film Dressing Cover Dressing: Transparent Tape Type: Transparent
[2018-01-26] MEDS: DAPTOmycin Inj 600 MG in Sodium Chlor 0.9% Inj 100 ML IV.SIG SCH (16:25)
[2018-01-26] MEDS: Psyllium Husk SF 3.4 GM in 5.8 GM Packet PO SCH (16:32)
[2018-01-26] MEDS: Ezetimibe 10 MG Tablet PO SCH (17:12)
--- NOTE | 2018-01-26 17:17 | P.PNNP ---
Subjective Interval history: 01/13/18 The patient is a 72 yo [place] female who is known to our services for ESRD on HD. She has had multiple admissions over the past 6 months regarding revascularization of LLE complicated by non-healing of the wound, wound dehiscence, and recurrent cellulitis leading to need for prolonged IV abx and wound VAC. She also has a known non-healing ulceration on her R heel and was told recently that she has severe PAD in her right leg and will likely need amputation soon. She presents with progressive pain in her right foot with darkening toes and redness extending to ríos with inability to ambulate 2/2 to severe pain. There is also a new area of erythema on left lateral thigh that is concerning for new cellulitis. ID has been to see the patient and started on new abx regimen. Pending vascular consultation at this point in time. Should be noted that she is a [facility] patient with dialysis just started . She remains full code with aggressive care. We have been consulted for dialysis management. Last outpatient HD 01/14/2018 Patient lying comfortably in bed. No respiratory distress. 01/16/18 Patient was seen during her dialysis session today. Lethargic secondary to pain meds but responding appropriately to questions. Reviewed vascular surgical notes. Patient is scheduled for a lower extremity angiogram this Tuesday and they are requesting dialysis post angioplasty tentative surgery for . 01/17/18 Pt getting wounds dressed. present. Pt very medicated and somewhat confused. Angioplasty scheduled tomorrow. 01/18/18 Patient was seen post hemodialysis and also post angiogram with angioplasty earlier today. Slightly lethargic. by bedside. 01/19/18 Patient lying in bed. Not in respiratory distress. A bit more alert today. was by bedside. 01/20/18 Seen during HD today. Lethargic. 01/22/18 Family member by bedside. She indicated to me that patient was more alert this morning but somewhat more lethargic after receiving analgesia. No verbal complaints. 01/25/18 Patient is just got back from dialysis. Except for discomfort at the operative site no verbal complaints. by bedside. 01/26/18 Pt sleeping deeply. at bedside. Purdy placed this afternoon for ongoing abx. 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 Next HD scheduled 01/27/18 <Ayala Simmons - Last Filed: 01/26/18 17:11> Physical Exam Vital signs: Vital Signs 01/25/18 19:09 01/25/18 20:00 01/25/18 21:10 Temperature 98.6 F Pulse Rate 61 Respiratory Rate 16 Blood Pressure 108/52 L Pulse Oximetry 94 L 93 L 93 L 01/26/18 00:00 01/26/18 04:00 01/26/18 08:00 Temperature 97.1 F L 97.1 F L Pulse Rate 60 62 68 Respiratory Rate 16 16 Blood Pressure 116/66 112/56 L Pulse Oximetry 94 L 94 L 01/26/18 09:20 01/26/18 09:50 01/26/18 10:37 Temperature 97.7 F Pulse Rate 73 63 68 Respiratory Rate 20 Blood Pressure 140/73 111/56 L 123/58 L Pulse Oximetry 94 L 97 94 L 01/26/18 12:00 Temperature 97.3 F L Pulse Rate 57 L Respiratory Rate 18 Blood Pressure 130/76 Pulse Oximetry 96 Intake & Output 01/25/18 01/26/18 01/26/18 18:59 06:59 18:59 Intake Total 720 / 720 200 / 200 Output Total 1500 / 1500 Balance -780 / -780 200 / 200 Weight 116 kg Intake: IV 200 / 200 Diflucan 200 mg Premix Bag 100 100 / 100 ML @ 100 mls/hr IV.SIG Q24H RICARDO Rx#:[id number] Merrem Inj 1,000 MG In NS Inj 100 / 100 100 ML @ 200 mls/hr IV.SIG Q24H RICARDO Rx#:[id number] Oral 720 / 720 Output: Hemodialysis Amount 1500 / 1500 Other: Date of Last Bowel Movement 01/24/18 01/24/18 # Bowel Movements 1 - Constitutional no acute distress - Routine HEENT Exam Head: Present: normocephalic, atraumatic - Routine Neck Exam Present: supple - Routine Respiratory Exam Present: CTA bilaterally - Routine Cardiovascular Exam Present: RRR, S1, S2 - Routine Abdominal Exam Present: soft - Routine Extremities Exam Present: edema (trace-1+ bilat hips) - Urinary Catheter Management Straight Cath placed during this visit: no Reason for continuing: Hourly intake/output Indwelling Urethral Catheter Cath placed during this visit: yes, but has since been removed by the nurse Reason for continuing: Decision to DC catheter Insertion date: 01/24/18 Insertion time: 11:30 Removal date: 01/24/18 Removal time: 12:50 <Ayala Simmons - Last Filed: 01/26/18 17:11> Vital signs: Vital Signs 01/27/18 16:00 01/27/18 19:00 01/27/18 20:00 Temperature 98.1 F 97.4 F L Pulse Rate 61 62 55 L Respiratory Rate 19 18 18 Blood Pressure 106/50 L 97/45 L Pulse Oximetry 93 L 93 L 01/28/18 00:00 01/28/18 04:00 01/28/18 08:00 Temperature 97.7 F 97.7 F 97.8 F Pulse Rate 55 L 53 L 62 Respiratory Rate 18 17 17 Blood Pressure 104/48 L 108/64 121/55 L Pulse Oximetry 95 94 L 01/28/18 08:15 01/28/18 11:50 Temperature 97.8 F Pulse Rate 59 L 58 L Respiratory Rate 18 Blood Pressure 107/62 Pulse Oximetry 95 Intake & Output 01/27/18 01/28/18 01/28/18 18:59 06:59 18:59 Intake Total 820 / 820 340 / 340 Output Total 1999 Balance 820 / 820 -1660 / -1660 Weight 115.5 kg Intake: IV 100 / 100 100 / 100 Diflucan 200 mg Premix Bag 100 100 / 100 ML @ 100 mls/hr IV.SIG Q24H RICARDO Rx#:[id number] Merrem Inj 1,000 MG In NS Inj 100 / 100 100 ML @ 200 mls/hr IV.SIG Q24H RICARDO Rx#:[id number] Oral 720 / 720 240 / 240 Output: Urine 0 / 0 Hemodialysis Amount 1999 Other: # Voids 0 # Bowel Movements 0 0 - Urinary Catheter Management Straight Cath placed during this visit: no Indwelling Urethral Catheter Cath placed during this visit: no <Ryan Sampson - Last Filed: 01/28/18 15:04> Assessment and Plan - Assessment (1) ESRD (end stage renal disease) on dialysis Code(s): N18.6 - End stage renal disease; Z99.2 - Dependence on renal dialysis Status: Acute Plan: Continue hemodialysis [place] Wednesday Shabbir. Scheduled right AKA on 01/31/18. Patient's overall condition has been declining over the last several weeks. Patient still with significant comorbidities and increasing debilitation. Prognosis remains guarded to poor. Gadolinium is contraindicated. Medication should be adjusted for the patient's end-stage renal disease when indicated. (2) Peripheral vascular disease of lower extremity with ulceration Code(s): I73.9 - Peripheral vascular disease, unspecified; L97.909 - Non- pressure chronic ulcer of unspecified part of unspecified lower leg with unspecified severity Status: Acute Plan: Unfortunately right lower extremity bypass attempt was unsuccessful and she is now scheduled for amputation 01/31/18. (3) Cellulitis Code(s): L03.90 - Cellulitis, unspecified Status: Acute Qualifiers: Site of cellulitis: extremity Site of cellulitis of extremity: lower extremity Laterality: left Qualified Code(s): L03.116 - Cellulitis of left lower limb Plan: Vascular surgery believes probability of calciphylaxis is very low regarding lesion on L lateral thigh and biopsy associated with significant risk as far as healing is concerned. As mentioned previously laboratory results did not appear to be consistent with significant probability for calciphylaxis and the patient does unfortunately have diffuse atherosclerotic disease which likely accounts for clinical findings. (4) DM (diabetes mellitus) Code(s): E11.9 - Type 2 diabetes mellitus without complications Status: Acute Plan: Mgmt per primary <Ayala Simmons - Last Filed: 01/26/18 17:11> - Assessment (1) ESRD (end stage renal disease) on dialysis Code(s): N18.6 - End stage renal disease; Z99.2 - Dependence on renal dialysis Status: Acute (2) Peripheral vascular disease of lower extremity with ulceration Code(s): I73.9 - Peripheral vascular disease, unspecified; L97.909 - Non- pressure chronic ulcer of unspecified part of unspecified lower leg with unspecified severity Status: Acute (3) Cellulitis Code(s): L03.90 - Cellulitis, unspecified Status: Acute Qualifiers: Site of cellulitis: extremity Site of cellulitis of extremity: lower extremity Laterality: left Qualified Code(s): L03.116 - Cellulitis of left lower limb (4) DM (diabetes mellitus) Code(s): E11.9 - Type 2 diabetes mellitus without complications Status: Acute - Attending Attestation The exam, history, and the medical decision-making described in the above note were completed with the assistance of the PALety. I reviewed and agree with the findings presented. I attest that I had a [id number] encounter with the patient on the same day, and personally performed and documented my assessment and findings in the medical record. <Ryan Sampson - Last Filed: 01/28/18 15:04>
--- NOTE | 2018-01-26 21:24 | P.PNVS ---
Subjective Subjective/Hospital Course: Saw patient this afternoon and discussed plan moving forward with her . No new complaints. They expressed concern over the LEFT toe amputation. RIGHT foot stable, still painful although patient was resting at time of my visit. . Objective Vital Signs / I&O: Vital Signs 01/26/18 00:00 01/26/18 04:00 01/26/18 08:00 Temperature 97.1 F L 97.1 F L Pulse Rate 60 62 68 Respiratory Rate 16 16 Blood Pressure 116/66 112/56 L Pulse Oximetry 94 L 94 L 01/26/18 09:20 01/26/18 09:50 01/26/18 10:37 Temperature 97.7 F Pulse Rate 73 63 68 Respiratory Rate 20 Blood Pressure 140/73 111/56 L 123/58 L Pulse Oximetry 94 L 97 94 L 01/26/18 12:00 01/26/18 16:00 Temperature 97.3 F L 97.5 F L Pulse Rate 57 L 59 L Respiratory Rate 18 18 Blood Pressure 130/76 126/60 Pulse Oximetry 96 96 Intake & Output 01/26/18 01/26/18 01/27/18 06:59 18:59 06:59 Intake Total 200 / 200 200 / 200 Balance 200 / 200 200 / 200 Weight 116 kg Intake: IV 200 / 200 200 / 200 Cubicin Inj 600 MG In NS Inj 100 / 100 100 ML @ 200 mls/hr IV.SIG Q48H RICARDO Rx#:[id number] Diflucan 200 mg Premix Bag 100 100 / 100 ML @ 100 mls/hr IV.SIG Q24H RICARDO Rx#:[id number] Merrem Inj 1,000 MG In NS Inj 100 / 100 100 / 100 100 ML @ 200 mls/hr IV.SIG Q24H RICARDO Rx#:[id number] Other: Date of Last Bowel Movement 01/24/18 # Bowel Movements 1 Physical Exam: R foot ischemic with forefoot gangrene. L foot stable. Palpable L PT. Laboratory Results - last 24 hr 01/26/18 01/26/18 01/26/18 07:56 12:06 17:00 POC Glucose 189 H 193 H 187 H 01/26/18 20:48 POC Glucose 188 H Microbiology 01/24/18 11:30 Urine Culture - Final Catheterized Urine Impressions Purdy Line Insertion 01/26/18 00:00 CONCLUSION: Uncomplicated ultrasound and fluoroscopic guided Purdy catheter placement as above. Assessment and Plan - Assessment (1) Peripheral vascular disease of lower extremity with ulceration Code(s): I73.9 - Peripheral vascular disease, unspecified; L97.909 - Non- pressure chronic ulcer of unspecified part of unspecified lower leg with unspecified severity Status: Acute - Plan 72/F with a PMH of PAD and ESRD L foot stable, well perfused with palpable PT R foot unreconstructable. Planning for R Tuesday.
[2018-01-27] MEDS: Heparin - SQ 10,000 UNITS/ML Vial SQ SCH ×2 (01:07→11:44)
[2018-01-27] MEDS: Levothyroxine 125 MCG Tablet PO SCH (05:08)
[2018-01-27 05:33] LABS: Baso # (Auto) 0.1 th/mm3 (0.0-0.2); Baso % (Auto) 0.8 % (0.0-2.0); Eos # (Auto) 0.3 th/mm3 (0.0-0.4); Eos % (Auto) 2.1 % (0.0-4.0); Hematocrit 30.5 % (35.0-46.0); Hemoglobin 9.6 gm/dL (11.6-15.3); Lymph # (Auto) 1.9 th/mm3 (1.0-4.8); Lymph % (Auto) 13.2 % (9.0-44.0); Mean Corpuscular HGB Conc 31.5 % (32.0-36.0); Mean Corpuscular Hemoglobin 29.2 pg (27.0-34.0); Mean Corpuscular Volume 92.7 fL (80.0-100.0); Mono # (Auto) 2.1 th/mm3 (0.0-0.9); Mono % (Auto) 14.5 % (0.0-8.0); Neut # (Auto) 10.1 th/mm3 (1.8-7.7); Neut % (Auto) 69.4 % (16.0-70.0); Platelet Count 240 th/mm3 (150-450); Red Blood Count 3.28 mil/mm3 (4.00-5.30); Red Cell Distribution Width 19.7 % (11.6-17.2); White Blood Count 14.6 th/mm3 (4.0-11.0)
[2018-01-27 06:04] LABS: Albumin 1.5 g/dL (3.4-5.0); Anion Gap 9 meq/L (5-15); Aspartate Aminotransferase 10 U/L (15-37); Blood Urea Nitrogen 42 mg/dL (7-18); Carbon Dioxide 30.9 meq/L (21.0-32.0); Chloride 95 meq/L (98-107); Glomerular Filtration Rate 9 mL/min (>89); Glucose,Random 155 mg/dL (74-106); Sodium 135 meq/L (136-145)
[2018-01-27 06:06] LABS: Alkaline Phosphatase 283 U/L (45-117); Total Protein 5.2 g/dL (6.4-8.2)
[2018-01-27] MEDS: Famotidine 20 MG Tablet PO SCH ×2 (09:05→21:21)
[2018-01-27] MEDS: Heparin Central Flush 100 UNIT/ML 5 ML Vial IV.FLUSH SCH (09:05)
[2018-01-27] MEDS: Carvedilol 6.25 MG Tablet PO SCH ×2 (09:05→21:20)
[2018-01-27] MEDS: Minocycline 100 MG Capsule PO SCH ×2 (09:05→21:21)
[2018-01-27] MEDS: Gabapentin 100 MG Capsule PO SCH ×2 (09:05→21:21)
[2018-01-27] MEDS: Insulin NovoLOG Aspart Correctional Sugar Inj SQ SCH ×4 (09:06→21:24)
[2018-01-27] MEDS: Insulin Detemir Inj 1,000 UNIT/10 ML Vial SQ SCH ×2 (09:06→21:20)
[2018-01-27] MEDS: Collagenase Oint 30 GM Tube TOPICAL SCH (09:27)
--- NOTE | 2018-01-27 12:24 | P.PNNP ---
Subjective Interval history: 01/13/18 The patient is a 72 yo [place] female who is known to our services for ESRD on HD. She has had multiple admissions over the past 6 months regarding revascularization of LLE complicated by non-healing of the wound, wound dehiscence, and recurrent cellulitis leading to need for prolonged IV abx and wound VAC. She also has a known non-healing ulceration on her R heel and was told recently that she has severe PAD in her right leg and will likely need amputation soon. She presents with progressive pain in her right foot with darkening toes and redness extending to ríos with inability to ambulate 2/2 to severe pain. There is also a new area of erythema on left lateral thigh that is concerning for new cellulitis. ID has been to see the patient and started on new abx regimen. Pending vascular consultation at this point in time. Should be noted that she is a [facility] patient with dialysis just started . She remains full code with aggressive care. We have been consulted for dialysis management. Last outpatient HD 01/14/2018 Patient lying comfortably in bed. No respiratory distress. 01/16/18 Patient was seen during her dialysis session today. Lethargic secondary to pain meds but responding appropriately to questions. Reviewed vascular surgical notes. Patient is scheduled for a lower extremity angiogram this Tuesday and they are requesting dialysis post angioplasty tentative surgery for . 01/17/18 Pt getting wounds dressed. present. Pt very medicated and somewhat confused. Angioplasty scheduled tomorrow. 01/18/18 Patient was seen post hemodialysis and also post angiogram with angioplasty earlier today. Slightly lethargic. by bedside. 01/19/18 Patient lying in bed. Not in respiratory distress. A bit more alert today. was by bedside. 01/20/18 Seen during HD today. Lethargic. 01/22/18 Family member by bedside. She indicated to me that patient was more alert this morning but somewhat more lethargic after receiving analgesia. No verbal complaints. 01/25/18 Patient is just got back from dialysis. Except for discomfort at the operative site no verbal complaints. by bedside. 01/26/18 Pt sleeping deeply. at bedside. Purdy placed this afternoon for ongoing abx. 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 Next HD scheduled 01/27/18 01/27/18 Seen during HD today. Significant edema in hips. Otherwise, no complaints. <Ayala Simmons - Last Filed: 01/27/18 12:20> Physical Exam Vital signs: Vital Signs 01/26/18 16:00 01/26/18 20:00 01/27/18 00:00 Temperature 97.5 F L 97.2 F L 97.7 F Pulse Rate 59 L 60 57 L Respiratory Rate 18 16 16 Blood Pressure 126/60 120/58 L 117/56 L Pulse Oximetry 96 95 92 L 01/27/18 04:00 01/27/18 07:39 01/27/18 08:00 Temperature 97.1 F L 98.0 F Pulse Rate 59 L 56 L Respiratory Rate 16 16 19 Blood Pressure 118/57 L 116/57 L Pulse Oximetry 92 L 91 L Intake & Output 01/26/18 01/27/18 01/27/18 18:59 06:59 18:59 Intake Total 200 / 200 100 / 100 Balance 200 / 200 100 / 100 Weight 115.5 kg Intake: IV 200 / 200 100 / 100 Cubicin Inj 600 MG In NS Inj 100 / 100 100 ML @ 200 mls/hr IV.SIG Q48H RICARDO Rx#:[id number] Diflucan 200 mg Premix Bag 100 100 / 100 ML @ 100 mls/hr IV.SIG Q24H RICARDO Rx#:[id number] Merrem Inj 1,000 MG In NS Inj 100 / 100 100 ML @ 200 mls/hr IV.SIG Q24H RICARDO Rx#:[id number] Other: # Voids 0 Date of Last Bowel Movement 01/24/18 - Constitutional no acute distress - Routine HEENT Exam Head: Present: normocephalic - Routine Neck Exam Present: supple - Routine Respiratory Exam Present: CTA bilaterally - Routine Cardiovascular Exam Present: RRR, S1, S2 - Routine Abdominal Exam Present: soft - Routine Extremities Exam Present: edema (1+ pitting in hips) - Routine Neurological Exam Present: alert - Urinary Catheter Management Straight Cath placed during this visit: no Reason for continuing: Hourly intake/output Indwelling Urethral Catheter Cath placed during this visit: yes, but has since been removed by the nurse Reason for continuing: Decision to DC catheter Insertion date: 01/24/18 Insertion time: 11:30 Removal date: 01/24/18 Removal time: 12:50 <Ayala Simmons - Last Filed: 01/27/18 12:20> Vital signs: Vital Signs 01/27/18 16:00 01/27/18 19:00 01/27/18 20:00 Temperature 98.1 F 97.4 F L Pulse Rate 61 62 55 L Respiratory Rate 19 18 18 Blood Pressure 106/50 L 97/45 L Pulse Oximetry 93 L 93 L 01/28/18 00:00 01/28/18 04:00 01/28/18 08:00 Temperature 97.7 F 97.7 F 97.8 F Pulse Rate 55 L 53 L 62 Respiratory Rate 18 17 17 Blood Pressure 104/48 L 108/64 121/55 L Pulse Oximetry 95 94 L 01/28/18 08:15 01/28/18 11:50 Temperature 97.8 F Pulse Rate 59 L 58 L Respiratory Rate 18 Blood Pressure 107/62 Pulse Oximetry 95 Intake & Output 01/27/18 01/28/18 01/28/18 18:59 06:59 18:59 Intake Total 820 / 820 340 / 340 Output Total 1999 Balance 820 / 820 -1660 / -1660 Weight 115.5 kg Intake: IV 100 / 100 100 / 100 Diflucan 200 mg Premix Bag 100 100 / 100 ML @ 100 mls/hr IV.SIG Q24H RICARDO Rx#:[id number] Merrem Inj 1,000 MG In NS Inj 100 / 100 100 ML @ 200 mls/hr IV.SIG Q24H RICARDO Rx#:[id number] Oral 720 / 720 240 / 240 Output: Urine 0 / 0 Hemodialysis Amount 1999 Other: # Voids 0 # Bowel Movements 0 0 - Urinary Catheter Management Straight Cath placed during this visit: no Indwelling Urethral Catheter Cath placed during this visit: no <Ryan Sampson - Last Filed: 01/28/18 15:03> Assessment and Plan - Assessment (1) ESRD (end stage renal disease) on dialysis Code(s): N18.6 - End stage renal disease; Z99.2 - Dependence on renal dialysis Status: Acute Plan: Seen during HD today. UF 3-3.5L as tolerated. Continue hemodialysis Tuesday. Scheduled right AKA on 01/31/18. Patient's overall condition has been declining over the last several weeks. Patient still with significant comorbidities and increasing debilitation. Prognosis remains guarded to poor. Gadolinium is contraindicated. Medication should be adjusted for the patient's end-stage renal disease when indicated. (2) Peripheral vascular disease of lower extremity with ulceration Code(s): I73.9 - Peripheral vascular disease, unspecified; L97.909 - Non- pressure chronic ulcer of unspecified part of unspecified lower leg with unspecified severity Status: Acute Plan: Unfortunately right lower extremity bypass attempt was unsuccessful and she is now scheduled for amputation 01/31/18. (3) Cellulitis Code(s): L03.90 - Cellulitis, unspecified Status: Acute Qualifiers: Site of cellulitis: extremity Site of cellulitis of extremity: lower extremity Laterality: left Qualified Code(s): L03.116 - Cellulitis of left lower limb Plan: Vascular surgery believes probability of calciphylaxis is very low regarding lesion on L lateral thigh and biopsy associated with significant risk as far as healing is concerned. As mentioned previously laboratory results did not appear to be consistent with significant probability for calciphylaxis and the patient does unfortunately have diffuse atherosclerotic disease which likely accounts for clinical findings. (4) DM (diabetes mellitus) Code(s): E11.9 - Type 2 diabetes mellitus without complications Status: Acute Plan: Mgmt per primary <Ayala Simmons - Last Filed: 01/27/18 12:20> - Assessment (1) ESRD (end stage renal disease) on dialysis Code(s): N18.6 - End stage renal disease; Z99.2 - Dependence on renal dialysis Status: Acute (2) Peripheral vascular disease of lower extremity with ulceration Code(s): I73.9 - Peripheral vascular disease, unspecified; L97.909 - Non- pressure chronic ulcer of unspecified part of unspecified lower leg with unspecified severity Status: Acute (3) Cellulitis Code(s): L03.90 - Cellulitis, unspecified Status: Acute Qualifiers: Site of cellulitis: extremity Site of cellulitis of extremity: lower extremity Laterality: left Qualified Code(s): L03.116 - Cellulitis of left lower limb (4) DM (diabetes mellitus) Code(s): E11.9 - Type 2 diabetes mellitus without complications Status: Acute - Attending Attestation The exam, history, and the medical decision-making described in the above note were completed with the assistance of the RADHA. I reviewed and agree with the findings presented. <Ryan Sampson - Last Filed: 01/28/18 15:03>
--- NOTE | 2018-01-27 17:18 | P.PNIM ---
Subjective Interval history: Patient had dialysis today. She tolerated this well. Complaints of left thigh tenderness. Physical Exam Vital signs: Vital Signs 01/26/18 20:00 01/27/18 00:00 01/27/18 04:00 Temperature 97.2 F L 97.7 F 97.1 F L Pulse Rate 60 57 L 59 L Respiratory Rate 16 16 16 Blood Pressure 120/58 L 117/56 L 118/57 L Pulse Oximetry 95 92 L 92 L 01/27/18 07:39 01/27/18 08:00 01/27/18 12:00 Temperature 98.0 F 97.7 F Pulse Rate 56 L 73 Respiratory Rate 16 19 19 Blood Pressure 116/57 L 114/46 L Pulse Oximetry 91 L 94 L 01/27/18 16:00 Temperature 98.1 F Pulse Rate 61 Respiratory Rate 19 Blood Pressure 106/50 L Pulse Oximetry 93 L Intake & Output 01/26/18 01/27/18 01/27/18 18:59 06:59 18:59 Intake Total 200 / 200 100 / 100 720 / 720 Balance 200 / 200 100 / 100 720 / 720 Weight 115.5 kg Intake: IV 200 / 200 100 / 100 Cubicin Inj 600 MG In NS Inj 100 / 100 100 ML @ 200 mls/hr IV.SIG Q48H [facility] Rx#:[id number] Diflucan 200 mg Premix Bag 100 100 / 100 ML @ 100 mls/hr IV.SIG Q24H [facility] Rx#:[id number] Merrem Inj 1,000 MG In NS Inj 100 / 100 100 ML @ 200 mls/hr IV.SIG Q24H R[facility]ARDO Rx#:[id number] Oral 720 / 720 Other: # Voids 0 0 Date of Last Bowel Movement 01/24/18 # Bowel Movements 0 Narrative: GENERAL: NAD, A&Ox3 HEAD: Normocephalic. NECK: Supple, trachea midline. No lymphadenopathy. EYES: No scleral icterus. No injection or drainage. CARDIOVASCULAR: Regular rate and rhythm without murmurs, gallops, or rubs. RESPIRATORY: Breath sounds equal bilaterally. No accessory muscle use. GASTROINTESTINAL: Abdomen soft, non-tender, nondistended. MUSCULOSKELETAL: No cyanosis, or edema. Right distal leg has poor capillary flow. Right lateral foot is gangrenous. Erythematous induration patch at left thigh with 2 cm area of excoriation which is superficial. SKIN: Warm and dry. NEURO: No focal neurological deficits. - Urinary Catheter Management Straight Cath placed during this visit: no Reason for continuing: Hourly intake/output Indwelling Urethral Catheter Cath placed during this visit: yes, but has since been removed by the nurse Reason for continuing: Decision to DC catheter Insertion date: 01/24/18 Insertion time: 11:30 Removal date: 01/24/18 Removal time: 12:50 Results - Labs CBC & Chem 7: 01/27/18 05:10 01/27/18 05:10 Laboratory Results - last 24 hr 01/26/18 01/27/18 01/27/18 20:48 05:10 05:10 WBC 14.6 H RBC 3.28 L Hgb 9.6 L Hct 30.5 L MCV 92.7 MCH 29.2 MCHC 31.5 L RDW 19.7 H Plt Count 240 MPV 8.0 Neut % (Auto) 69.4 Lymph % (Auto) 13.2 [place] % (Auto) 14.5 H Eos % (Auto) 2.1 Baso % (Auto) 0.8 Neut # (Auto) 10.1 H Lymph # (Auto) 1.9 [place] # (Auto) 2.1 H Eos # (Auto) 0.3 Baso # (Auto) 0.1 WBC Differential . Differential Comment Auto diff final Sodium 135 L Potassium 5.0 Chloride 95 L Carbon Dioxide 30.9 Anion Gap 9 BUN 42 H Creatinine 4.84 H Estimated GFR 9 L POC Glucose 188 H Random Glucose 155 H Calcium 9.0 Phosphorus 6.0 H Total Bilirubin 0.7 AST 10 L ALT Less than 6 L Alkaline Phosphatase 283 H Total Protein 5.2 L Albumin 1.5 L Vitamin D 25-Hydroxy PTH Intact 01/27/18 01/27/18 01/27/18 05:10 05:10 07:57 WBC RBC Hgb Hct MCV MCH MCHC RDW Plt Count MPV Neut % (Auto) Lymph % (Auto) [place] % (Auto) Eos % (Auto) Baso % (Auto) Neut # (Auto) Lymph # (Auto) [place] # (Auto) Eos # (Auto) Baso # (Auto) WBC Differential Differential Comment Sodium Potassium Chloride Carbon Dioxide Anion Gap BUN Creatinine Estimated GFR POC Glucose 226 H Random Glucose Calcium Phosphorus Total Bilirubin AST ALT Alkaline Phosphatase Total Protein Albumin Vitamin D 25-Hydroxy 49.3 PTH Intact 210.1 H 01/27/18 01/27/18 01/27/18 11:34 15:15 16:24 WBC RBC Hgb Hct MCV MCH MCHC RDW Plt Count MPV Neut % (Auto) Lymph % (Auto) [place] % (Auto) Eos % (Auto) Baso % (Auto) Neut # (Auto) Lymph # (Auto) [place] # (Auto) Eos # (Auto) Baso # (Auto) WBC Differential Differential Comment Sodium Potassium Chloride Carbon Dioxide Anion Gap BUN Creatinine Estimated GFR POC Glucose 193 H 81 115 H Random Glucose Calcium Phosphorus Total Bilirubin AST ALT Alkaline Phosphatase Total Protein Albumin Vitamin D 25-Hydroxy PTH Intact Assessment and Plan - Assessment (1) Cellulitis Code(s): L03.90 - Cellulitis, unspecified Status: Acute (2) ESRD (end stage renal disease) on dialysis Code(s): N18.6 - End stage renal disease; Z99.2 - Dependence on renal dialysis Status: Acute (3) HTN (hypertension) Code(s): I10 - Essential (primary) hypertension Status: Acute (4) DM (diabetes mellitus) Code(s): E11.9 - Type 2 diabetes mellitus without complications Status: Acute (5) Gangrene of right foot Code(s): I96 - Gangrene, not elsewhere classified Status: Acute - Plan 72 y/o WF admitted for BL LE pain secondary to infection/gangrene. Right lower extremity cellulitis left groin and left popliteal wounds PAD Right lower extremity gangrene Lower extremity limb ischemia Chronic left thigh wound Stage 1/2 ulcer left thigh Plan for right lower extremity amputation Vascular surgeon following Podiatry following Trauma surgeon following Continue statin Continue pain management Wound care nurse following Antibiotics in place: Meropenem, minocycline, fluconazole Hypertension Continue Coreg Monitor blood pressures Diabetes type I Continue insulin pump Follow blood sugars Insulin sliding scale Diabetic diet End-stage renal disease Continue dialysis Tuesday. Continue dialysis per nephrology Nephrology following Constipation Chronic. Continue Metamucil Chronic pain Continue pain control. Hospital induced delirium/. Supportive care DVT Prophylaxis Heparin Discharge Planning: Limb amputation pending prior to discharge (1) Cellulitis Qualifiers: Site of cellulitis: extremity Site of cellulitis of extremity: lower extremity Laterality: left Qualified Code(s): L03.116 - Cellulitis of left lower limb
[2018-01-27] MEDS: Psyllium Husk SF 3.4 GM in 5.8 GM Packet PO SCH (17:24)
[2018-01-27] MEDS: Ezetimibe 10 MG Tablet PO SCH (17:55)
[2018-01-27] MEDS: Gelatin 12 MM/7 MM Topical Foam TOPICAL PRN (19:10)
[2018-01-28] MEDS: Heparin - SQ 10,000 UNITS/ML Vial SQ SCH ×3 (02:52→23:05)
[2018-01-28] MEDS: Levothyroxine 125 MCG Tablet PO SCH (06:18)
[2018-01-28 07:14] LABS: Baso # (Auto) 0.2 th/mm3 (0.0-0.2); Baso % (Auto) 1.1 % (0.0-2.0); Eos # (Auto) 0.3 th/mm3 (0.0-0.4); Eos % (Auto) 2.1 % (0.0-4.0); Hematocrit 32.6 % (35.0-46.0); Hemoglobin 10.2 gm/dL (11.6-15.3); Lymph # (Auto) 1.7 th/mm3 (1.0-4.8); Lymph % (Auto) 12.5 % (9.0-44.0); Mean Corpuscular HGB Conc 31.3 % (32.0-36.0); Mean Corpuscular Volume 92.8 fL (80.0-100.0); Mono # (Auto) 1.9 th/mm3 (0.0-0.9); Mono % (Auto) 13.9 % (0.0-8.0); Neut # (Auto) 9.9 th/mm3 (1.8-7.7); Neut % (Auto) 70.4 % (16.0-70.0); Platelet Count 235 th/mm3 (150-450); Red Blood Count 3.51 mil/mm3 (4.00-5.30); Red Cell Distribution Width 20.1 % (11.6-17.2)
[2018-01-28 07:40] LABS: Albumin 1.6 g/dL (3.4-5.0); Anion Gap 9 meq/L (5-15); Aspartate Aminotransferase 10 U/L (15-37); Blood Urea Nitrogen 34 mg/dL (7-18); Calcium 8.8 mg/dL (8.5-10.1); Chloride 98 meq/L (98-107); Glomerular Filtration Rate 11 mL/min (>89); Glucose,Random 110 mg/dL (74-106); Potassium 4.6 meq/L (3.5-5.1); Sodium 138 meq/L (136-145)
[2018-01-28 07:42] LABS: Alkaline Phosphatase 294 U/L (45-117); Total Protein 5.4 g/dL (6.4-8.2)
[2018-01-28] MEDS: Minocycline 100 MG Capsule PO SCH ×2 (09:18→22:56)
[2018-01-28] MEDS: Heparin Central Flush 100 UNIT/ML 5 ML Vial IV.FLUSH SCH (09:18)
[2018-01-28] MEDS: Insulin NovoLOG Aspart Correctional Sugar Inj SQ SCH ×4 (09:18→22:48)
[2018-01-28] MEDS: Famotidine 20 MG Tablet PO SCH ×2 (09:18→22:55)
[2018-01-28] MEDS: Gabapentin 100 MG Capsule PO SCH ×2 (09:18→22:56)
[2018-01-28] MEDS: Carvedilol 6.25 MG Tablet PO SCH ×2 (09:19→23:20)
[2018-01-28] MEDS: Insulin Detemir Inj 1,000 UNIT/10 ML Vial SQ SCH ×2 (09:19→22:56)
[2018-01-28] MEDS: Collagenase Oint 30 GM Tube TOPICAL SCH (09:20)
--- NOTE | 2018-01-28 12:36 | P.PNIM ---
Subjective Interval history: No acute changes overnight. No signs of sepsis. Pending amputation of right lower extremity, on 01/31/18. Physical Exam Vital signs: Vital Signs 01/27/18 16:00 01/27/18 19:00 01/27/18 20:00 Temperature 98.1 F 97.4 F L Pulse Rate 61 62 55 L Respiratory Rate 19 18 18 Blood Pressure 106/50 L 97/45 L Pulse Oximetry 93 L 93 L 01/28/18 00:00 01/28/18 04:00 01/28/18 08:00 Temperature 97.7 F 97.7 F 97.8 F Pulse Rate 55 L 53 L 62 Respiratory Rate 18 17 17 Blood Pressure 104/48 L 108/64 121/55 L Pulse Oximetry 95 94 L 01/28/18 08:15 01/28/18 11:50 Temperature 97.8 F Pulse Rate 59 L 58 L Respiratory Rate 18 Blood Pressure 107/62 Pulse Oximetry 95 Intake & Output 01/27/18 01/28/18 01/28/18 18:59 06:59 18:59 Intake Total 820 / 820 340 / 340 Output Total 1999 Balance 820 / 820 -1660 / -1660 Weight 115.5 kg Intake: IV 100 / 100 100 / 100 Diflucan 200 mg Premix Bag 100 100 / 100 ML @ 100 mls/hr IV.SIG Q24H [facility] Rx#:[id number] Merrem Inj 1,000 MG In NS Inj 100 / 100 100 ML @ 200 mls/hr IV.SIG Q24H R[facility]O Rx#:[id number] Oral 720 / 720 240 / 240 Output: Urine 0 / 0 Hemodialysis Amount 1999 Other: # Voids 0 # Bowel Movements 0 0 Narrative: GENERAL: NAD, A&Ox3 HEAD: Normocephalic. NECK: Supple, trachea midline. No lymphadenopathy. EYES: No scleral icterus. No injection or drainage. CARDIOVASCULAR: Regular rate and rhythm without murmurs, gallops, or rubs. RESPIRATORY: Breath sounds equal bilaterally. No accessory muscle use. GASTROINTESTINAL: Abdomen soft, non-tender, nondistended. MUSCULOSKELETAL: No cyanosis, or edema. Right distal leg has poor capillary flow. Right lateral foot is gangrenous. Erythematous induration patch at left thigh with 2 cm area of excoriation which is superficial. SKIN: Warm and dry. NEURO: No focal neurological deficits. - Urinary Catheter Management Straight Cath placed during this visit: no Reason for continuing: Hourly intake/output Indwelling Urethral Catheter Cath placed during this visit: yes, but has since been removed by the nurse Reason for continuing: Decision to DC catheter Insertion date: 01/24/18 Insertion time: 11:30 Removal date: 01/24/18 Removal time: 12:50 Results - Labs CBC & Chem 7: 01/28/18 06:30 01/28/18 06:30 Laboratory Results - last 24 hr 01/27/18 01/27/18 01/27/18 15:15 16:24 19:38 WBC RBC Hgb Hct MCV MCH MCHC RDW Plt Count MPV Neut % (Auto) Lymph % (Auto) [place] % (Auto) Eos % (Auto) Baso % (Auto) Neut # (Auto) Lymph # (Auto) [place] # (Auto) Eos # (Auto) Baso # (Auto) WBC Differential Differential Comment Sodium Potassium Chloride Carbon Dioxide Anion Gap BUN Creatinine Estimated GFR POC Glucose 81 115 H 122 H Random Glucose Calcium Phosphorus Total Bilirubin AST ALT Alkaline Phosphatase Total Protein Albumin 01/28/18 01/28/18 01/28/18 02:54 06:30 06:30 WBC 14.0 H RBC 3.51 L Hgb 10.2 L Hct 32.6 L MCV 92.8 MCH 29.0 MCHC 31.3 L RDW 20.1 H Plt Count 235 MPV 8.0 Neut % (Auto) 70.4 H Lymph % (Auto) 12.5 [place] % (Auto) 13.9 H Eos % (Auto) 2.1 Baso % (Auto) 1.1 Neut # (Auto) 9.9 H Lymph # (Auto) 1.7 [place] # (Auto) 1.9 H Eos # (Auto) 0.3 Baso # (Auto) 0.2 WBC Differential . Differential Comment Auto diff final Sodium 138 Potassium 4.6 Chloride 98 Carbon Dioxide 31.0 Anion Gap 9 BUN 34 H Creatinine 4.10 H Estimated GFR 11 L POC Glucose 129 H Random Glucose 110 H Calcium 8.8 Phosphorus 5.0 H D Total Bilirubin 0.6 AST 10 L ALT Less than 6 L Alkaline Phosphatase 294 H Total Protein 5.4 L Albumin 1.6 L 01/28/18 01/28/18 07:49 11:22 WBC RBC Hgb Hct MCV MCH MCHC RDW Plt Count MPV Neut % (Auto) Lymph % (Auto) [place] % (Auto) Eos % (Auto) Baso % (Auto) Neut # (Auto) Lymph # (Auto) [place] # (Auto) Eos # (Auto) Baso # (Auto) WBC Differential Differential Comment Sodium Potassium Chloride Carbon Dioxide Anion Gap BUN Creatinine Estimated GFR POC Glucose 213 H 312 H Random Glucose Calcium Phosphorus Total Bilirubin AST ALT Alkaline Phosphatase Total Protein Albumin Assessment and Plan - Assessment (1) Cellulitis Code(s): L03.90 - Cellulitis, unspecified Status: Acute (2) ESRD (end stage renal disease) on dialysis Code(s): N18.6 - End stage renal disease; Z99.2 - Dependence on renal dialysis Status: Acute (3) HTN (hypertension) Code(s): I10 - Essential (primary) hypertension Status: Acute (4) DM (diabetes mellitus) Code(s): E11.9 - Type 2 diabetes mellitus without complications Status: Acute (5) Gangrene of right foot Code(s): I96 - Gangrene, not elsewhere classified Status: Acute - Plan 72 y/o WF admitted for BL LE pain secondary to infection/gangrene. Continue antibiotics. Continue monitoring for signs of sepsis or bacteremia. Labs reviewed. Right lower extremity cellulitis left groin and left popliteal wounds PAD Right lower extremity gangrene Lower extremity limb ischemia Chronic left thigh wound Stage 1/2 ulcer left thigh Plan for right lower extremity amputation Vascular surgeon following Podiatry following Trauma surgeon following Continue statin Continue pain management Wound care nurse following Antibiotics in place: Meropenem, minocycline, fluconazole Hypertension Continue Coreg Monitor blood pressures Diabetes type I Continue insulin pump Follow blood sugars Insulin sliding scale Diabetic diet End-stage renal disease Continue dialysis Tuesday. Continue dialysis per nephrology Nephrology following Constipation Chronic. Continue Metamucil Chronic pain Continue pain control. Hospital induced delirium/. Supportive care DVT Prophylaxis Heparin Discharge Planning: Limb amputation pending prior to discharge (1) Cellulitis Qualifiers: Site of cellulitis: extremity Site of cellulitis of extremity: lower extremity Laterality: left Qualified Code(s): L03.116 - Cellulitis of left lower limb
[2018-01-28] MEDS: DAPTOmycin Inj 600 MG in Sodium Chlor 0.9% Inj 100 ML IV.SIG SCH (17:17)
[2018-01-28] MEDS: Psyllium Husk SF 3.4 GM in 5.8 GM Packet PO SCH (17:18)
[2018-01-28] MEDS: Ezetimibe 10 MG Tablet PO SCH (17:18)
[2018-01-29] MEDS: Levothyroxine 125 MCG Tablet PO SCH (05:00)
[2018-01-29] MEDS: Insulin NovoLOG Aspart Correctional Sugar Inj SQ SCH ×4 (08:30→21:18)
[2018-01-29] MEDS: Gabapentin 100 MG Capsule PO SCH ×2 (09:34→21:18)
[2018-01-29] MEDS: Heparin Central Flush 100 UNIT/ML 5 ML Vial IV.FLUSH SCH (09:35)
[2018-01-29] MEDS: Famotidine 20 MG Tablet PO SCH ×2 (09:35→21:19)
[2018-01-29] MEDS: Minocycline 100 MG Capsule PO SCH ×2 (09:35→21:18)
[2018-01-29] MEDS: Insulin Detemir Inj 1,000 UNIT/10 ML Vial SQ SCH ×2 (09:36→21:17)
[2018-01-29] MEDS: Carvedilol 6.25 MG Tablet PO SCH ×2 (09:37→21:16)
[2018-01-29] MEDS: Collagenase Oint 30 GM Tube TOPICAL SCH (09:53)
--- NOTE | 2018-01-29 10:55 | P.PNIM ---
Subjective Interval history: No acute changes overnight. Pain is controlled. Surgery is anticipated in 2 days. Physical Exam Vital signs: Vital Signs 01/28/18 11:50 01/28/18 16:00 01/28/18 18:01 Temperature 97.8 F 98.1 F Pulse Rate 58 L 103 H Respiratory Rate 18 18 Blood Pressure 107/62 124/53 L Pulse Oximetry 95 95 95 01/28/18 20:00 01/29/18 00:00 01/29/18 04:00 Temperature 97.6 F 97.9 F 97 F L Pulse Rate 55 L 56 L 58 L Respiratory Rate 18 17 17 Blood Pressure 113/53 L 110/49 L 100/46 L Pulse Oximetry 94 L 94 L 97 01/29/18 08:00 Temperature 97.3 F L Pulse Rate 58 L Respiratory Rate 19 Blood Pressure 98/46 L Pulse Oximetry 96 Intake & Output 01/28/18 01/29/18 01/29/18 18:59 06:59 18:59 Intake Total 660 / 660 Balance 660 / 660 Weight 115.5 kg Intake: IV 300 / 300 Cubicin Inj 600 MG In NS Inj 100 / 100 100 ML @ 200 mls/hr IV.SIG Q48H [facility] Rx#:[id number] Diflucan 200 mg Premix Bag 100 100 / 100 ML @ 100 mls/hr IV.SIG Q24H [facility] Rx#:[id number] Merrem Inj 1,000 MG In NS Inj 100 / 100 100 ML @ 200 mls/hr IV.SIG Q24H [facility] Rx#:[id number] Oral 360 / 360 Other: # Voids 0 # Urine Diapers 0 # Bowel Movements 0 Narrative: GENERAL: NAD, A&Ox3 HEAD: Normocephalic. NECK: Supple, trachea midline. No lymphadenopathy. EYES: No scleral icterus. No injection or drainage. CARDIOVASCULAR: Regular rate and rhythm without murmurs, gallops, or rubs. RESPIRATORY: Breath sounds equal bilaterally. No accessory muscle use. GASTROINTESTINAL: Abdomen soft, non-tender, nondistended. MUSCULOSKELETAL: No cyanosis, or edema. Right distal leg has poor capillary flow. Right lateral foot is gangrenous. Erythematous induration patch at left thigh with 2 cm area of excoriation which is superficial. SKIN: Warm and dry. NEURO: No focal neurological deficits. - Urinary Catheter Management Straight Cath placed during this visit: no Reason for continuing: Hourly intake/output Indwelling Urethral Catheter Cath placed during this visit: yes, but has since been removed by the nurse Reason for continuing: Decision to DC catheter Insertion date: 01/24/18 Insertion time: 11:30 Removal date: 01/24/18 Removal time: 12:50 Results - Labs CBC & Chem 7: 01/28/18 06:30 01/28/18 06:30 Laboratory Results - last 24 hr 01/28/18 01/28/18 01/28/18 11:22 16:38 22:47 POC Glucose 312 H 115 H 108 01/29/18 01/29/18 04:30 08:29 POC Glucose 156 H 142 H Assessment and Plan - Assessment (1) Cellulitis Code(s): L03.90 - Cellulitis, unspecified Status: Acute (2) ESRD (end stage renal disease) on dialysis Code(s): N18.6 - End stage renal disease; Z99.2 - Dependence on renal dialysis Status: Acute (3) HTN (hypertension) Code(s): I10 - Essential (primary) hypertension Status: Acute (4) DM (diabetes mellitus) Code(s): E11.9 - Type 2 diabetes mellitus without complications Status: Acute (5) Gangrene of right foot Code(s): I96 - Gangrene, not elsewhere classified Status: Acute - Plan 72 y/o WF admitted for BL LE pain secondary to infection/gangrene. No worsening of patient's clinical status. Right lower extremity needs amputation. Continue antibiotics. Continue monitoring for signs of sepsis or bacteremia. Labs reviewed. Right lower extremity cellulitis left groin and left popliteal wounds PAD Right lower extremity gangrene Lower extremity limb ischemia Chronic left thigh wound Stage 1/2 ulcer left thigh Plan for right lower extremity amputation Vascular surgeon following Podiatry following Trauma surgeon following Continue statin Continue pain management Wound care nurse following Antibiotics in place: Meropenem, minocycline, fluconazole Hypertension Continue Coreg Monitor blood pressures Diabetes type I Continue insulin pump Follow blood sugars Insulin sliding scale Diabetic diet End-stage renal disease Continue dialysis Tuesday. Continue dialysis per nephrology Nephrology following Constipation Chronic. Continue Metamucil Chronic pain Continue pain control. Hospital induced delirium/. Supportive care DVT Prophylaxis Heparin Discharge Planning: Limb amputation pending prior to discharge (1) Cellulitis Qualifiers: Site of cellulitis: extremity Site of cellulitis of extremity: lower extremity Laterality: left Qualified Code(s): L03.116 - Cellulitis of left lower limb
[2018-01-29] MEDS: Heparin - SQ 10,000 UNITS/ML Vial SQ SCH (13:23)
--- NOTE | 2018-01-29 15:09 | P.PNNP ---
Subjective Interval history: Patient lethargic secondary to pain medications. No verbal complaints Physical Exam Vital signs: Vital Signs 01/28/18 16:00 01/28/18 18:01 01/28/18 20:00 Temperature 98.1 F 97.6 F Pulse Rate 103 H 55 L Respiratory Rate 18 18 Blood Pressure 124/53 L 113/53 L Pulse Oximetry 95 95 94 L 01/29/18 00:00 01/29/18 04:00 01/29/18 08:00 Temperature 97.9 F 97 F L 97.3 F L Pulse Rate 56 L 58 L 58 L Respiratory Rate 17 17 19 Blood Pressure 110/49 L 100/46 L 98/46 L Pulse Oximetry 94 L 97 96 01/29/18 12:00 Temperature 97.4 F L Pulse Rate 57 L Respiratory Rate 17 Blood Pressure 95/44 L Pulse Oximetry 97 Intake & Output 01/28/18 01/29/18 01/29/18 18:59 06:59 18:59 Intake Total 660 / 660 Balance 660 / 660 Weight 115.5 kg Intake: IV 300 / 300 Cubicin Inj 600 MG In NS Inj 100 / 100 100 ML @ 200 mls/hr IV.SIG Q48H [facility] Rx#:[id number] Diflucan 200 mg Premix Bag 100 100 / 100 ML @ 100 mls/hr IV.SIG Q24H [facility] Rx#:[id number] Merrem Inj 1,000 MG In NS Inj 100 / 100 100 ML @ 200 mls/hr IV.SIG Q24H [facility] Rx#:[id number] Oral 360 / 360 Other: # Voids 0 # Urine Diapers 0 # Bowel Movements 0 Narrative: GENERAL: Patient lying in bed. Not in respiratory distress. SKIN: Warm and dry. HEAD: Normocephalic. EYES: No scleral icterus. No injection or drainage. NECK: Supple, trachea midline. No JVD or lymphadenopathy. CARDIOVASCULAR: Regular rate and rhythm without murmurs, gallops, or rubs. RESPIRATORY: Breath sounds equal bilaterally. No accessory muscle use. GASTROINTESTINAL: Abdomen soft, non-tender, nondistended. MUSCULOSKELETAL: , 2+ pitting edema thighs. Trace edema legs. Erythema left upper thigh. - Urinary Catheter Management Straight Cath placed during this visit: no Reason for continuing: Hourly intake/output Indwelling Urethral Catheter Cath placed during this visit: yes, but has since been removed by the nurse Reason for continuing: Decision to DC catheter Insertion date: 01/24/18 Insertion time: 11:30 Removal date: 01/24/18 Removal time: 12:50 Assessment and Plan - Assessment (1) ESRD (end stage renal disease) on dialysis Code(s): N18.6 - End stage renal disease; Z99.2 - Dependence on renal dialysis Status: Acute Plan: Patient scheduled for amputation next week. Hemodialysis tomorrow per outpatient schedule. Patient's overall condition has been declining over the last several weeks. Patient still with significant comorbidities and increasing debilitation. Prognosis remains guarded to poor. Gadolinium is contraindicated. Medication should be adjusted for the patient's end-stage renal disease when indicated. (2) Peripheral vascular disease of lower extremity with ulceration Code(s): I73.9 - Peripheral vascular disease, unspecified; L97.909 - Non- pressure chronic ulcer of unspecified part of unspecified lower leg with unspecified severity Status: Acute Plan: Unfortunately right lower extremity bypass attempt was unsuccessful and she is now scheduled for amputation 01/31/18. (3) Cellulitis Code(s): L03.90 - Cellulitis, unspecified Status: Acute Qualifiers: Site of cellulitis: extremity Site of cellulitis of extremity: lower extremity Laterality: left Qualified Code(s): L03.116 - Cellulitis of left lower limb Plan: Vascular surgery believes probability of calciphylaxis is very low regarding lesion on L lateral thigh and biopsy associated with significant risk as far as healing is concerned. As mentioned previously laboratory results did not appear to be consistent with significant probability for calciphylaxis and the patient does unfortunately have diffuse atherosclerotic disease which likely accounts for clinical findings. (4) DM (diabetes mellitus) Code(s): E11.9 - Type 2 diabetes mellitus without complications Status: Acute Plan: Mgmt per primary
--- NOTE | 2018-01-29 16:49 | P.PNID ---
Subjective Remarks: Patient states that the pain in the left leg is less. She notes that she only requires the pain medicine once a day. States she feels sleepy. No other complaints. No fever. Patient noted to not have vessel that can be bypassed on attempts at revascularization 01/24/2018. Plans for right AKA on 02/01/2018. HISTORY OF PRESENT ILLNESS: This is a 72-year-old white female who is known to me from previous hospitalizations. The patient was last admitted for a dehisced wound at the left tibia from a vascular procedure at the end of November. She had Pseudomonas aeruginosa cultured from the leg and also Klebsiella pneumoniae. She was discharged on cefepime, which she was receiving at hemodialysis center. She developed redness of her right foot and it became progressively worse with increased erythema and purplish discoloration at the right fifth toe and at the base of the fifth toe as well. Antibiotics: Meropenem Daptomycin Diflucan Doxycycline. 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 Allergies/Adverse Reactions: Allergies amlodipine Allergy (Severe, Verified 12/22/17 22:56) Edema, Generalized adhesive tape Allergy (Unknown, Verified 12/22/17 22:56) Generalized Itching Redness Objective Vital Signs 01/28/18 18:01 01/28/18 20:00 01/29/18 00:00 Temperature 97.6 F 97.9 F Pulse Rate 55 L 56 L Respiratory Rate 18 17 Blood Pressure 113/53 L 110/49 L Pulse Oximetry 95 94 L 94 L 01/29/18 04:00 01/29/18 08:00 01/29/18 12:00 Temperature 97 F L 97.3 F L 97.4 F L Pulse Rate 58 L 58 L 57 L Respiratory Rate 17 19 17 Blood Pressure 100/46 L 98/46 L 95/44 L Pulse Oximetry 97 96 97 Intake & Output 01/28/18 01/29/18 01/29/18 18:59 06:59 18:59 Intake Total 660 / 660 Balance 660 / 660 Weight 115.5 kg Intake: IV 300 / 300 Cubicin Inj 600 MG In NS Inj 100 / 100 100 ML @ 200 mls/hr IV.SIG Q48H RICARDO Rx#:[id number] Diflucan 200 mg Premix Bag 100 100 / 100 ML @ 100 mls/hr IV.SIG Q24H RICARDO Rx#:[id number] Merrem Inj 1,000 MG In NS Inj 100 / 100 100 ML @ 200 mls/hr IV.SIG Q24H RICARDO Rx#:[id number] Oral 360 / 360 Other: # Voids 0 # Urine Diapers 0 # Bowel Movements 0 Lab - Hematology Results 01/28/18 06:30 WBC 14.0 H RBC 3.51 L Hgb 10.2 L Hct 32.6 L MCV 92.8 MCH 29.0 MCHC 31.3 L RDW 20.1 H Plt Count 235 MPV 8.0 Neut % (Auto) 70.4 H Lymph % (Auto) 12.5 [place] % (Auto) 13.9 H Eos % (Auto) 2.1 Baso % (Auto) 1.1 Neut # (Auto) 9.9 H Lymph # (Auto) 1.7 [place] # (Auto) 1.9 H Eos # (Auto) 0.3 Baso # (Auto) 0.2 WBC Differential . Differential Comment Auto diff final Lab - Chemistry Results 01/27/18 01/28/18 01/28/18 19:38 02:54 06:30 Sodium 138 Potassium 4.6 Chloride 98 Carbon Dioxide 31.0 Anion Gap 9 BUN 34 H Creatinine 4.10 H Estimated GFR 11 L POC Glucose 122 H 129 H Random Glucose 110 H Calcium 8.8 Phosphorus 5.0 H D Total Bilirubin 0.6 AST 10 L ALT Less than 6 L Alkaline Phosphatase 294 H Total Protein 5.4 L Albumin 1.6 L 01/28/18 01/28/18 01/28/18 07:49 11:22 16:38 Sodium Potassium Chloride Carbon Dioxide Anion Gap BUN Creatinine Estimated GFR POC Glucose 213 H 312 H 115 H Random Glucose Calcium Phosphorus Total Bilirubin AST ALT Alkaline Phosphatase Total Protein Albumin 01/28/18 01/29/18 01/29/18 22:47 04:30 08:29 Sodium Potassium Chloride Carbon Dioxide Anion Gap BUN Creatinine Estimated GFR POC Glucose 108 156 H 142 H Random Glucose Calcium Phosphorus Total Bilirubin AST ALT Alkaline Phosphatase Total Protein Albumin 01/29/18 13:18 Sodium Potassium Chloride Carbon Dioxide Anion Gap BUN Creatinine Estimated GFR POC Glucose 181 H Random Glucose Calcium Phosphorus Total Bilirubin AST ALT Alkaline Phosphatase Total Protein Albumin Imaging: ITS Impressions Femur CT 01/12/18 00:00 CONCLUSION: 1. Soft tissue defect in the anterior upper left thigh and the medial distal left thigh at the level of the knee. 2. Diffuse subcutaneous soft tissue edema. No drainable abscess identified. Aorta w/Runoff CTA 01/15/18 00:00 CONCLUSION: 1. Diffuse atherosclerotic disease with moderate distal aortic stenosis at the bifurcation. 2. Bilateral moderate common iliac artery stenosis, likely overestimated due to degree of calcified plaque. 3. Left femoral to above-knee popliteal artery bypass graft with critical stenosis of the proximal anastomosis and mild stenosis of the distal anastomosis. 4. Diffuse right SFA disease with tandem moderate stenoses in the proximal thigh and tandem severe stenoses in the distal thigh. Diffuse right popliteal artery disease. 5. Limited single vessel runoff on the right. The peroneal artery with reconstitution of the anterior tibial artery in the distal calf. 6. Limited two-vessel runoff on the left. Diffusely diseased posterior tibial and peroneal arteries. 7. Stable 10 mm nodule in the right lung base. Follow-up examination in 3-6 months is again recommended to document stability. 8. Stable additional ancillary findings, as above. Extremity Arterial Study 01/15/18 00:00 CONCLUSION: Findings of severe disease on the right side with nondiagnostic evaluation on the left. CT angiography of the abdominal aorta and lower extremities is recommended for further evaluation if clinically indicated. Head CT 01/16/18 00:00 CONCLUSION: 1. No acute findings in the brain. . Foot X-Ray 01/20/18 00:00 CONCLUSION: No acute findings. No evidence of bony destruction or new periosteal reaction. Purdy Line Insertion 01/26/18 00:00 CONCLUSION: Uncomplicated ultrasound and fluoroscopic guided Purdy catheter placement as above. Physical Exam: GENERAL: No acute distress. HEENT: Head is atraumatic. Extraocular movements grossly intact. Pupils reactive to light. No icterus. No conjunctival erythema. Oropharynx mucosa moist. NECK: Supple without adenopathy. LUNGS: Clear to auscultation. HEART: Regular S1, S2, without murmurs, rubs or gallops. ABDOMEN: Bowel sounds present, obese, soft, nontender. EXTREMITIES: The left inner thigh has chronic open ulceration with good granulation tissue, mild erythema at the edge of the lower aspect and some necrosis at the lower aspect near the edge. Lateral left thigh erythema slightly decreased. The left inner tibial area where the dehisced surgical incision has few specks of necrosis. Right groin has sponge overlying surgical incision. No surrounding redness. Mild redness at the dorsum of the foot at the base of the toe 2 and 3 and forth to from the mid phalangeal joint to the tip is gangrenous. The right 5th toe and 5th MTP is dry/gangrenous. SKIN: No diffuse rash. NEUROLOGIC: No gross focal finding. PSYCHIATRIC: calm, and cooperative. Assessment and Plan - Plan IMPRESION: 1. Severe peripheral vascular disease, now involving the right foot with gangrene at portion of the right fourth toe and the right fifth toe and base of the right fifth MTP. -Vascular disease not fixable with vascular procedure. Plans for right above- the-knee amputation in progress. 2. Open wound of the left inner tibia which grew out Pseudomonas and Klebsiella, sensitive to cefepime in late November. 3. Chronic open wound of the left inner groin/thigh which has had positive bacteria in the past and was treated with antibiotics and was doing well with dressing changes. 4. Left lateral thigh ecchymosis/cellulitis. Stable. 5. Diabetes mellitus. 6. End-stage renal disease on hemodialysis RECOMMENDATIONS: 1. Continue daptomycin. 2. Continue Meropenem. 3. Continue Diflucan. 4. Continue doxycycline. 5. Monitor wounds and clinical response.
--- NOTE | 2018-01-29 17:07 | P.DIET ---
Nutritional Evaluation Type of nutrition evaluation: follow-up Nutrition consult regarding: Diet Evaluation (MDC for Supplement to Oral Intake) Screening comments: 01/14 MDC for supplement to oral intake Subjective Subjective Comments: Pt. sleeping but woke to speak w/me. Pt says she likes the Butter Pecan flavor Nepro but says it may be too many calories. Pt encouraged to drink the Nepro r/ t she needs the nutrition the supplement provides. MARY Fermin reports pt's brought breakfast in for the pt today and she ate most of it. MARY Fermin says pt's brings food in for the pt including some cookies at bedside and pt has eaten some of these today. Objective - Diagnosis Limb Ischemia, LLE Infection - Objective [place] body weight: 61.8 kg % IBW: 166 (VFY=340#) Body Weight Used for Calculations: IBW (61.4kg) Energy Needs - Lower Range (kCal/kg): 30 Energy Needs - Upper Range (kCal/kg): 35 Lower Limit kCal/kg (kCals): 1,854 Upper Limit kCal/kg (kCals): 2,163 Lower Limit Protein Factor (Grams per Kg): 1.2 Upper Limit Protein Factor (Grams per Kg): 1.5 Lower Protein Needs (Protein): 74 Upper Protein Needs (Protein): 93 Dietitian Reviewed in Medical Record: Current diet, Curent medications, Intake & Output, Labs, Medical history, Wound/DTI Diet Order: Renal, 2g Na Wound Care Note: 01/13 WOCN note-reviewed: Unstageable pressure injury to Right heel Objective Comments: PMH Includes: ESRD HD -W-, high cholesterol, HTN, DM-2 w/Insulin pump inlace POC Glucose 156, 142, 181; BUN 34, Creatinine 4.1, estGFR 11, Phosphorus 5.0 Meds: Lipitor, Zetia, Coreg, Cinacalcet, Catapres, Pepcid, Neurontin, Metamucil Fiber, Synthroid, Renvela, Levemir, Novolog SSI LBM 01/24 Feeding - Current PO Supplement Current Supplement: Nepro Current Frequency of Supplement: Twice daily Current kCals Provided by Supplement: 425 Current Protein Provided by Supplement: 19 Assessment Assessment: Pt continues to be at nutritional risk r/t diagnosis, increased needs for wounds and ESRD on hemodialysis M-W-F. Pt receiving hospice services at home prior to this admission. Variable po intake 50% to 75% for meals. Current diet is a Renal 2g Na diet. Rec diet change to Cardiac to allow for increased menu selections. Continue Nepro supplement BID. Pt is planned for Right AKA 02/01-plan to reassess needs s/p RAKA Labs, electrolytes, fluids reviewed. Wt changes noted. Dietitian following. Recommendations: 1. Rec diet change to Cardiac to allow for increased menu selections 2. Continue Nepro supplement BID 3. Pt receives some food from outside 4. Plan to reassess needs s/p 5. Dietitian following Dietitian to Monitor: Lab values, Electrolytes, Renal labs, Glucose level, Supplement acceptance, Intake & Output, Diet tolerance, Weight change, PO Intake , Wound/skin status, Medical course
[2018-01-29] MEDS: Psyllium Husk SF 3.4 GM in 5.8 GM Packet PO SCH (18:09)
[2018-01-29] MEDS: Ezetimibe 10 MG Tablet PO SCH (18:20)
[2018-01-30] MEDS: Heparin - SQ 10,000 UNITS/ML Vial SQ SCH ×2 (00:28→13:13)
[2018-01-30] MEDS: Levothyroxine 125 MCG Tablet PO SCH (05:26)
[2018-01-30 05:53] LABS: Baso # (Auto) 0.2 th/mm3 (0.0-0.2); Baso % (Auto) 1.2 % (0.0-2.0); Eos # (Auto) 0.3 th/mm3 (0.0-0.4); Hematocrit 29.9 % (35.0-46.0); Hemoglobin 9.7 gm/dL (11.6-15.3); Lymph # (Auto) 1.4 th/mm3 (1.0-4.8); Mean Corpuscular HGB Conc 32.4 % (32.0-36.0); Mean Corpuscular Hemoglobin 29.2 pg (27.0-34.0); Mean Corpuscular Volume 90.3 fL (80.0-100.0); Mono # (Auto) 1.7 th/mm3 (0.0-0.9); Neut # (Auto) 10.7 th/mm3 (1.8-7.7); Neut % (Auto) 74.8 % (16.0-70.0); Platelet Count 240 th/mm3 (150-450); Red Blood Count 3.31 mil/mm3 (4.00-5.30); Red Cell Distribution Width 19.5 % (11.6-17.2); White Blood Count 14.2 th/mm3 (4.0-11.0)
[2018-01-30 06:20] LABS: Albumin 1.5 g/dL (3.4-5.0); Alkaline Phosphatase 298 U/L (45-117); Anion Gap 11 meq/L (5-15); Aspartate Aminotransferase 12 U/L (15-37); Blood Urea Nitrogen 59 mg/dL (7-18); Calcium 8.3 mg/dL (8.5-10.1); Carbon Dioxide 27.5 meq/L (21.0-32.0); Chloride 95 meq/L (98-107); Glomerular Filtration Rate 8 mL/min (>89); Glucose,Random 139 mg/dL (74-106); Potassium 5.1 meq/L (3.5-5.1); Sodium 133 meq/L (136-145); Total Protein 5.2 g/dL (6.4-8.2)
[2018-01-30] MEDS: Insulin NovoLOG Aspart Correctional Sugar Inj SQ SCH ×4 (09:03→19:45)
[2018-01-30] MEDS: Carvedilol 6.25 MG Tablet PO SCH ×2 (09:03→21:37)
[2018-01-30] MEDS: Minocycline 100 MG Capsule PO SCH ×2 (09:04→21:36)
[2018-01-30] MEDS: Heparin Central Flush 100 UNIT/ML 5 ML Vial IV.FLUSH SCH (09:04)
[2018-01-30] MEDS: Insulin Detemir Inj 1,000 UNIT/10 ML Vial SQ SCH ×2 (09:04→21:38)
[2018-01-30] MEDS: Famotidine 20 MG Tablet PO SCH ×2 (09:04→21:37)
[2018-01-30] MEDS: Gabapentin 100 MG Capsule PO SCH ×2 (09:04→21:36)
[2018-01-30] MEDS: Collagenase Oint 30 GM Tube TOPICAL SCH (09:05)
--- NOTE | 2018-01-30 11:20 | P.PNIM ---
Subjective Interval history: No acute changes. Dialysis today. Plan for surgery tomorrow. Physical Exam Vital signs: Vital Signs 01/29/18 12:00 01/29/18 16:00 01/29/18 16:10 Temperature 97.4 F L 97.5 F L Pulse Rate 57 L 57 L Respiratory Rate 17 18 Blood Pressure 95/44 L 85/71 L 99/54 L Pulse Oximetry 97 95 01/29/18 20:00 01/30/18 00:00 01/30/18 04:00 Temperature 97.3 F L 97.7 F 97.5 F L Pulse Rate 56 L 57 L Respiratory Rate 17 16 16 Blood Pressure 97/45 L 99/45 L 112/51 L Pulse Oximetry 97 97 93 L Intake & Output 01/29/18 01/30/18 01/30/18 18:59 06:59 18:59 Intake Total 500 / 500 340 / 340 Balance 500 / 500 340 / 340 Weight 115.5 kg Intake: IV 100 / 100 100 / 100 Diflucan 200 mg Premix Bag 100 100 / 100 ML @ 100 mls/hr IV.SIG Q24H RICARDO Rx#:[id number] Merrem Inj 1,000 MG In NS Inj 100 / 100 100 ML @ 200 mls/hr IV.SIG Q24H RICARDO Rx#:[id number] Oral 400 / 400 240 / 240 Other: # Voids 0 0 Date of Last Bowel Movement 01/29/18 # Bowel Movements 2 0 Narrative: GENERAL: NAD, A&Ox3 HEAD: Normocephalic. NECK: Supple, trachea midline. No lymphadenopathy. EYES: No scleral icterus. No injection or drainage. CARDIOVASCULAR: Regular rate and rhythm without murmurs, gallops, or rubs. RESPIRATORY: Breath sounds equal bilaterally. No accessory muscle use. GASTROINTESTINAL: Abdomen soft, non-tender, nondistended. MUSCULOSKELETAL: No cyanosis, or edema. Right distal leg has poor capillary flow. Right lateral foot is gangrenous. Erythematous induration patch at left thigh with 2 cm area of excoriation which is superficial. SKIN: Warm and dry. NEURO: No focal neurological deficits. - Urinary Catheter Management Straight Cath placed during this visit: no Reason for continuing: Hourly intake/output Indwelling Urethral Catheter Cath placed during this visit: yes, but has since been removed by the nurse Reason for continuing: Decision to DC catheter Insertion date: 01/24/18 Insertion time: 11:30 Removal date: 01/24/18 Removal time: 12:50 Results - Labs CBC & Chem 7: 01/30/18 05:38 01/30/18 05:38 Laboratory Results - last 24 hr 01/29/18 01/29/18 01/29/18 13:18 16:46 19:38 WBC RBC Hgb Hct MCV MCH MCHC RDW Plt Count MPV Neut % (Auto) Lymph % (Auto) [place] % (Auto) Eos % (Auto) Baso % (Auto) Neut # (Auto) Lymph # (Auto) [place] # (Auto) Eos # (Auto) Baso # (Auto) WBC Differential Differential Comment Sodium Potassium Chloride Carbon Dioxide Anion Gap BUN Creatinine Estimated GFR POC Glucose 181 H 147 H 163 H Random Glucose Calcium Total Bilirubin AST ALT Alkaline Phosphatase Total Protein Albumin 01/30/18 01/30/18 01/30/18 05:38 05:38 08:07 WBC 14.2 H RBC 3.31 L Hgb 9.7 L Hct 29.9 L MCV 90.3 MCH 29.2 MCHC 32.4 RDW 19.5 H Plt Count 240 MPV 8.0 Neut % (Auto) 74.8 H Lymph % (Auto) 10.0 [place] % (Auto) 12.0 H Eos % (Auto) 2.0 Baso % (Auto) 1.2 Neut # (Auto) 10.7 H Lymph # (Auto) 1.4 [place] # (Auto) 1.7 H Eos # (Auto) 0.3 Baso # (Auto) 0.2 WBC Differential . Differential Comment Auto diff final Sodium 133 L Potassium 5.1 Chloride 95 L Carbon Dioxide 27.5 Anion Gap 11 BUN 59 H Creatinine 5.33 H Estimated GFR 8 L POC Glucose 170 H Random Glucose 139 H Calcium 8.3 L Total Bilirubin 0.7 AST 12 L ALT Less than 6 L Alkaline Phosphatase 298 H Total Protein 5.2 L Albumin 1.5 L 01/30/18 10:25 WBC RBC Hgb Hct MCV MCH MCHC RDW Plt Count MPV Neut % (Auto) Lymph % (Auto) [place] % (Auto) Eos % (Auto) Baso % (Auto) Neut # (Auto) Lymph # (Auto) [place] # (Auto) Eos # (Auto) Baso # (Auto) WBC Differential Differential Comment Sodium Potassium Chloride Carbon Dioxide Anion Gap BUN Creatinine Estimated GFR POC Glucose 160 H Random Glucose Calcium Total Bilirubin AST ALT Alkaline Phosphatase Total Protein Albumin Assessment and Plan - Assessment (1) Cellulitis Code(s): L03.90 - Cellulitis, unspecified Status: Acute (2) ESRD (end stage renal disease) on dialysis Code(s): N18.6 - End stage renal disease; Z99.2 - Dependence on renal dialysis Status: Acute (3) HTN (hypertension) Code(s): I10 - Essential (primary) hypertension Status: Acute (4) DM (diabetes mellitus) Code(s): E11.9 - Type 2 diabetes mellitus without complications Status: Acute (5) Gangrene of right foot Code(s): I96 - Gangrene, not elsewhere classified Status: Acute - Plan 72 y/o WF admitted for BL LE pain secondary to infection/gangrene. Continue dialysis, patient in dialysis today. No worsening of patient's clinical status. Right lower extremity needs amputation, surgery planned for tomorrow. Continue antibiotics. Continue monitoring for signs of sepsis or bacteremia. Labs reviewed. Right lower extremity cellulitis left groin and left popliteal wounds PAD Right lower extremity gangrene Lower extremity limb ischemia Chronic left thigh wound Stage 1/2 ulcer left thigh Plan for right lower extremity amputation Vascular surgeon following Podiatry following Trauma surgeon following Continue statin Continue pain management Wound care nurse following Antibiotics in place: Meropenem, minocycline, fluconazole Hypertension Continue Coreg Monitor blood pressures Diabetes type I Continue insulin pump Follow blood sugars Insulin sliding scale Diabetic diet End-stage renal disease Continue dialysis Tuesday. Continue dialysis per nephrology Nephrology following Constipation Chronic. Continue Metamucil Chronic pain Continue pain control. Hospital induced delirium/. Supportive care DVT Prophylaxis Heparin Discharge Planning: Limb amputation pending prior to discharge (1) Cellulitis Qualifiers: Site of cellulitis: extremity Site of cellulitis of extremity: lower extremity Laterality: left Qualified Code(s): L03.116 - Cellulitis of left lower limb
--- NOTE | 2018-01-30 15:30 | P.PNNP ---
Subjective Interval history: Patient sitting up in bed eating lunch. No verbal complaints. More alert today. Physical Exam Vital signs: Vital Signs 01/29/18 16:00 01/29/18 16:10 01/29/18 20:00 Temperature 97.5 F L 97.3 F L Pulse Rate 57 L 56 L Respiratory Rate 18 17 Blood Pressure 85/71 L 99/54 L 97/45 L Pulse Oximetry 95 97 01/30/18 00:00 01/30/18 04:00 01/30/18 08:00 Temperature 97.7 F 97.5 F L 97.7 F Pulse Rate 57 L 63 Respiratory Rate 16 16 18 Blood Pressure 99/45 L 112/51 L 115/56 L Pulse Oximetry 97 93 L 95 Intake & Output 01/29/18 01/30/18 01/30/18 18:59 06:59 18:59 Intake Total 500 / 500 340 / 340 Output Total 3000 / 3000 Balance 500 / 500 340 / 340 -3000 / -3000 Weight 115.5 kg Intake: IV 100 / 100 100 / 100 Diflucan 200 mg Premix Bag 100 100 / 100 ML @ 100 mls/hr IV.SIG Q24H RICARDO Rx#:[id number] Merrem Inj 1,000 MG In NS Inj 100 / 100 100 ML @ 200 mls/hr IV.SIG Q24H RICARDO Rx#:[id number] Oral 400 / 400 240 / 240 Output: Hemodialysis Amount 3000 / 3000 Other: # Voids 0 0 Date of Last Bowel Movement 01/29/18 # Bowel Movements 2 0 Narrative: GENERAL: Not in respiratory distress. HEAD: Normocephalic. NECK: Supple, trachea midline. EYES: No scleral icterus. No injection or drainage. CARDIOVASCULAR: Regular rate and rhythm without murmurs, gallops, or rubs. RESPIRATORY: Breath sounds equal bilaterally. No accessory muscle use. GASTROINTESTINAL: Abdomen soft, non-tender, nondistended. MUSCULOSKELETAL: No cyanosis, or edema. Right distal leg has poor capillary flow. Right lateral foot is gangrenous. thigh with 2 cm area of excoriation which is superficial. SKIN: Warm and dry. - Urinary Catheter Management Straight Cath placed during this visit: no Reason for continuing: Hourly intake/output Indwelling Urethral Catheter Cath placed during this visit: yes, but has since been removed by the nurse Reason for continuing: Decision to DC catheter Insertion date: 01/24/18 Insertion time: 11:30 Removal date: 01/24/18 Removal time: 12:50 Assessment and Plan - Assessment (1) ESRD (end stage renal disease) on dialysis Code(s): N18.6 - End stage renal disease; Z99.2 - Dependence on renal dialysis Status: Acute Plan: Patient completed her dialysis today without difficulty. Tentatively for amputation tomorrow. Await surgical input. Patient's overall condition has been declining over the last several weeks. Patient still with significant comorbidities and increasing debilitation. Prognosis remains guarded to poor. Gadolinium is contraindicated. Medication should be adjusted for the patient's end-stage renal disease when indicated. (2) Peripheral vascular disease of lower extremity with ulceration Code(s): I73.9 - Peripheral vascular disease, unspecified; L97.909 - Non- pressure chronic ulcer of unspecified part of unspecified lower leg with unspecified severity Status: Acute Plan: Unfortunately right lower extremity bypass attempt was unsuccessful and she is now scheduled for amputation 01/31/18. (3) Cellulitis Code(s): L03.90 - Cellulitis, unspecified Status: Acute Qualifiers: Site of cellulitis: extremity Site of cellulitis of extremity: lower extremity Laterality: left Qualified Code(s): L03.116 - Cellulitis of left lower limb Plan: Vascular surgery believes probability of calciphylaxis is very low regarding lesion on L lateral thigh and biopsy associated with significant risk as far as healing is concerned. As mentioned previously laboratory results did not appear to be consistent with significant probability for calciphylaxis and the patient does unfortunately have diffuse atherosclerotic disease which likely accounts for clinical findings. (4) DM (diabetes mellitus) Code(s): E11.9 - Type 2 diabetes mellitus without complications Status: Acute Plan: Mgmt per primary
[2018-01-30] MEDS: Ezetimibe 10 MG Tablet PO SCH (17:46)
[2018-01-30] MEDS: DAPTOmycin Inj 600 MG in Sodium Chlor 0.9% Inj 100 ML IV.SIG SCH (17:46)
[2018-01-30] MEDS: Psyllium Husk SF 3.4 GM in 5.8 GM Packet PO SCH (17:47)
[2018-01-31] MEDS: Heparin - SQ 10,000 UNITS/ML Vial SQ SCH ×2 (00:20→12:23)
[2018-01-31 05:24] LABS: Hematocrit 30.3 % (35.0-46.0); Hemoglobin 9.7 gm/dL (11.6-15.3); Mean Corpuscular HGB Conc 31.9 % (32.0-36.0); Mean Corpuscular Volume 90.9 fL (80.0-100.0); Mean Platelet Volume 8.1 fL (7.0-11.0); Platelet Count 229 th/mm3 (150-450); Red Blood Count 3.34 mil/mm3 (4.00-5.30); Red Cell Distribution Width 19.5 % (11.6-17.2); White Blood Count 11.8 th/mm3 (4.0-11.0)
[2018-01-31 06:06] LABS: Albumin 1.4 g/dL (3.4-5.0); Alkaline Phosphatase 363 U/L (45-117); Anion Gap 11 meq/L (5-15); Aspartate Aminotransferase 15 U/L (15-37); Blood Urea Nitrogen 41 mg/dL (7-18); Calcium 7.9 mg/dL (8.5-10.1); Carbon Dioxide 28.9 meq/L (21.0-32.0); Chloride 98 meq/L (98-107); Glomerular Filtration Rate 11 mL/min (>89); Glucose,Random 115 mg/dL (74-106); Potassium 4.5 meq/L (3.5-5.1); Sodium 138 meq/L (136-145); Total Protein 5.1 g/dL (6.4-8.2)
[2018-01-31] MEDS: Levothyroxine 125 MCG Tablet PO SCH (06:12)
[2018-01-31 06:54] LABS: Eosinophils 1 % (0-4); Lymphocytes 14 % (9-44); Monocytes 11 % (0-8)
[2018-01-31 06:55] LABS: Platelet Estimate Normal (Normal); Platelet Morphology Normal (Normal)
[2018-01-31] MEDS ORDERED: Sodium Chlor 0.9% Inj 500 ML IV.SIG SCH (08:00)
[2018-01-31] MEDS: Insulin NovoLOG Aspart Correctional Sugar Inj SQ SCH ×4 (08:40→21:24)
[2018-01-31] MEDS: Carvedilol 6.25 MG Tablet PO SCH ×2 (08:40→21:12)
[2018-01-31] MEDS: Insulin Detemir Inj 1,000 UNIT/10 ML Vial SQ SCH ×2 (08:40→21:24)
[2018-01-31] MEDS: Heparin Central Flush 100 UNIT/ML 5 ML Vial IV.FLUSH SCH (08:40)
[2018-01-31] MEDS: Gabapentin 100 MG Capsule PO SCH ×2 (08:43→21:11)
[2018-01-31] MEDS: Minocycline 100 MG Capsule PO SCH (08:44)
[2018-01-31] MEDS: Collagenase Oint 30 GM Tube TOPICAL SCH (08:47)
[2018-01-31] MEDS: Famotidine 20 MG Tablet PO SCH ×2 (08:49→21:11)
--- NOTE | 2018-01-31 11:07 | P.PNIM ---
Subjective Interval history: Lab work shows stability and patient is medically cleared for amputation of right lower extremity today. She has a planned [id number] amputation of the right leg due to gangrene and poor vasculature. Surgery planned for today, 01/31/2018. Physical Exam Vital signs: Vital Signs 01/30/18 20:00 01/30/18 20:25 01/31/18 00:00 Temperature 99.2 F 98.3 F Pulse Rate 64 63 Respiratory Rate 18 18 18 Blood Pressure 99/46 L 101/46 L Pulse Oximetry 93 L 94 L 01/31/18 00:06 01/31/18 04:00 01/31/18 04:37 Temperature 97.3 F L Pulse Rate 62 Respiratory Rate 18 18 17 Blood Pressure 117/52 L Pulse Oximetry 97 01/31/18 08:00 Temperature 97.8 F Pulse Rate 100 H Respiratory Rate 18 Blood Pressure 118/51 L Pulse Oximetry 94 L Intake & Output 01/30/18 01/31/18 01/31/18 18:59 06:59 18:59 Intake Total 580 / 580 200 / 200 Output Total 3000 / 3000 0 / 0 Balance -2420 / -2420 200 / 200 Weight 115.5 kg Intake: IV 100 / 100 200 / 200 Cubicin Inj 600 MG In NS Inj 100 / 100 100 ML @ 200 mls/hr IV.SIG Q48H RICARDO Rx#:[id number] Diflucan 200 mg Premix Bag 100 100 / 100 ML @ 100 mls/hr IV.SIG Q24H RICARDO Rx#:[id number] Merrem Inj 1,000 MG In NS Inj 100 / 100 100 ML @ 200 mls/hr IV.SIG Q24H RICARDO Rx#:[id number] Oral 480 / 480 0 / 0 Output: Urine 0 / 0 0 / 0 Hemodialysis Amount 3000 / 3000 Other: Date of Last Bowel Movement 01/29/18 01/30/18 # Bowel Movements 0 Narrative: GENERAL: NAD, A&Ox3 HEAD: Normocephalic. NECK: Supple, trachea midline. No lymphadenopathy. EYES: No scleral icterus. No injection or drainage. CARDIOVASCULAR: Regular rate and rhythm without murmurs, gallops, or rubs. RESPIRATORY: Breath sounds equal bilaterally. No accessory muscle use. GASTROINTESTINAL: Abdomen soft, non-tender, nondistended. MUSCULOSKELETAL: No cyanosis, or edema. Right distal leg has poor capillary flow. Right lateral foot is gangrenous. Erythematous induration patch at left thigh with 2 cm area of excoriation which is superficial. SKIN: Warm and dry. NEURO: No focal neurological deficits. - Urinary Catheter Management Straight Cath placed during this visit: no Reason for continuing: Hourly intake/output Indwelling Urethral Catheter Cath placed during this visit: yes, but has since been removed by the nurse Reason for continuing: Decision to DC catheter Insertion date: 01/24/18 Insertion time: 11:30 Removal date: 01/24/18 Removal time: 12:50 Results - Labs CBC & Chem 7: 01/31/18 04:18 01/31/18 04:18 Laboratory Results - last 24 hr 01/30/18 01/30/18 01/30/18 13:16 15:41 19:49 WBC RBC Hgb Hct MCV MCH MCHC RDW Plt Count MPV Prelim Diff (Auto) WBC Differential Seg Neuts % (Manual) Band Neuts % (Manual) Lymphocytes % (Manual) Monocytes % (Manual) Eosinophils % (Manual) Basophils % (Manual) Abs Neuts (Manual) Differential Comment Platelet Estimate Platelet Morphology Sodium Potassium Chloride Carbon Dioxide Anion Gap BUN Creatinine Estimated GFR POC Glucose 125 H 135 H 131 H Random Glucose Calcium Total Bilirubin AST ALT Alkaline Phosphatase Total Protein Albumin 01/31/18 01/31/18 04:18 04:18 WBC 11.8 H RBC 3.34 L Hgb 9.7 L Hct 30.3 L MCV 90.9 MCH 29.0 MCHC 31.9 L RDW 19.5 H Plt Count 229 MPV 8.1 Prelim Diff (Auto) Manual diff required WBC Differential Manual diff final Seg Neuts % (Manual) 72 H Band Neuts % (Manual) 1 Lymphocytes % (Manual) 14 Monocytes % (Manual) 11 H Eosinophils % (Manual) 1 Basophils % (Manual) 1 Abs Neuts (Manual) 8.6 H Differential Comment . Platelet Estimate Normal Platelet Morphology Normal Sodium 138 Potassium 4.5 Chloride 98 Carbon Dioxide 28.9 Anion Gap 11 BUN 41 H Creatinine 4.15 H Estimated GFR 11 L POC Glucose Random Glucose 115 H Calcium 7.9 L Total Bilirubin 0.6 AST 15 ALT Less than 6 L Alkaline Phosphatase 363 H Total Protein 5.1 L Albumin 1.4 L Assessment and Plan - Assessment (1) Cellulitis Code(s): L03.90 - Cellulitis, unspecified Status: Acute (2) ESRD (end stage renal disease) on dialysis Code(s): N18.6 - End stage renal disease; Z99.2 - Dependence on renal dialysis Status: Acute (3) HTN (hypertension) Code(s): I10 - Essential (primary) hypertension Status: Acute (4) DM (diabetes mellitus) Code(s): E11.9 - Type 2 diabetes mellitus without complications Status: Acute (5) Gangrene of right foot Code(s): I96 - Gangrene, not elsewhere classified Status: Acute - Plan 72 y/o WF admitted for BL LE pain secondary to infection/gangrene. Plan for amputation right lower extremity today. Continue dialysis. Continue antibiotics. Continue monitoring for signs of sepsis or bacteremia. Labs reviewed. Right lower extremity cellulitis left groin and left popliteal wounds PAD Right lower extremity gangrene Lower extremity limb ischemia Chronic left thigh wound Stage 1/2 ulcer left thigh Plan for right lower extremity amputation on 01/31/2018 Vascular surgeon following Podiatry following Trauma surgeon following Continue statin Continue pain management Wound care nurse following Antibiotics in place: Meropenem, minocycline, fluconazole Hypertension Continue Coreg Monitor blood pressures Diabetes type I Continue insulin pump Follow blood sugars Insulin sliding scale Diabetic diet End-stage renal disease Continue dialysis Tuesday. Continue dialysis per nephrology Nephrology following Constipation Chronic. Continue Metamucil Chronic pain Continue pain control. Hospital induced delirium/. Supportive care DVT Prophylaxis Heparin Discharge Planning: Limb amputation pending prior to discharge (1) Cellulitis Qualifiers: Site of cellulitis: extremity Site of cellulitis of extremity: lower extremity Laterality: left Qualified Code(s): L03.116 - Cellulitis of left lower limb
--- NOTE | 2018-01-31 12:16 | ECG ---
Date Performed: 01/31/2018 Time Performed: 10:20:17 PTAGE: 72 years EKG: Sinus rhythm WITH FIRST DEGREE AV BLOCK, DIFFICULT TO EXCLUDE VENTRICULAR PACING LEFT AXIS DEVIATION NONSPECIFIC INTRAVENTRICULAR CONDUCTION DELAY POSSIBLE ANTERIOR, LATERAL INFARCTS, AGE UNDETERMINED ABNORMAL ECG PREVIOUS TRACING : 12/22/2017 22.14 No significant change from previous tracing noted. DOCTOR: Sebastian Cintron Interpretating Date/Time 01/31/2018 12:14:24
--- NOTE | 2018-01-31 12:32 | P.OP ---
- Preoperative Diagnosis (1) Peripheral vascular disease of lower extremity with ulceration - Postoperative Diagnosis (1) Peripheral vascular disease of lower extremity with ulceration Date of procedure: 01/31/18 Procedure: R AKA Implants: none Anesthesia: GETA Surgeon: Mukesh Rodrigues MD Manager Cosmetics: Tonia Koenig Estimated blood loss (mL): 100 IV fluids (mL): 300 Pathology: none sent Operation and Findings: decent perfusion at level of amputation
[2018-01-31] MEDS ORDERED: *morphine SULFATE 4 MG/ML PERIprocedure ONLY ONE ×2 (12:55→13:17)
[2018-01-31] MEDS ORDERED: *Meperidine Inj 25 MG/ML Vial PERIprocedural Use ONLY ONE (13:02)
[2018-01-31] MEDS ORDERED: fentaNYL Citrate Inj 100 MCG/2 ML Ampul ONE (13:02)
--- NOTE | 2018-01-31 15:00 | P.PNID ---
Subjective Remarks: Patient back from R. BKA. Notes severe pain in the r. leg. No fever. Patient noted to not have vessel in the RLE that can be bypassed on attempts at revascularization 01/24/2018. Plans for right AKA on 02/01/2018. HISTORY OF PRESENT ILLNESS: This is a 72-year-old white female who is known to me from previous hospitalizations. The patient was last admitted for a dehisced wound at the left tibia from a vascular procedure at the end of November. She had Pseudomonas aeruginosa cultured from the leg and also Klebsiella pneumoniae. She was discharged on cefepime, which she was receiving at hemodialysis center. She developed redness of her right foot and it became progressively worse with increased erythema and purplish discoloration at the right fifth toe and at the base of the fifth toe as well. Antibiotics: Meropenem Daptomycin Diflucan Doxycycline. 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 Allergies/Adverse Reactions: Allergies amlodipine Allergy (Severe, Verified 12/22/17 22:56) Edema, Generalized adhesive tape Allergy (Unknown, Verified 12/22/17 22:56) Generalized Itching Redness Objective Vital Signs 01/30/18 20:00 01/30/18 20:25 01/31/18 00:00 Temperature 99.2 F 98.3 F Pulse Rate 64 63 Respiratory Rate 18 18 18 Blood Pressure 99/46 L 101/46 L Pulse Oximetry 93 L 94 L 01/31/18 00:06 01/31/18 04:00 01/31/18 04:37 Temperature 97.3 F L Pulse Rate 62 Respiratory Rate 18 18 17 Blood Pressure 117/52 L Pulse Oximetry 97 01/31/18 08:00 01/31/18 12:48 01/31/18 13:00 Temperature 97.8 F 98.3 F Pulse Rate 100 H 58 L 59 L Respiratory Rate 18 20 15 Blood Pressure 118/51 L 94/44 L 96/42 L Pulse Oximetry 94 L 100 99 Intake & Output 01/30/18 01/31/18 01/31/18 18:59 06:59 18:59 Intake Total 580 / 580 200 / 200 300 / 300 Output Total 3000 / 3000 0 / 0 100 / 100 Balance -2420 / -2420 200 / 200 200 / 200 Weight 115.5 kg Intake: IV 100 / 100 200 / 200 Cubicin Inj 600 MG In NS Inj 100 / 100 100 ML @ 200 mls/hr IV.SIG Q48H RICARDO Rx#:[id number] Diflucan 200 mg Premix Bag 100 100 / 100 ML @ 100 mls/hr IV.SIG Q24H RICARDO Rx#:[id number] Merrem Inj 1,000 MG In NS Inj 100 / 100 100 ML @ 200 mls/hr IV.SIG Q24H RICARDO Rx#:[id number] Oral 480 / 480 0 / 0 Anesthesia Amount 300 / 300 Output: Urine 0 / 0 0 / 0 Hemodialysis Amount 3000 / 3000 Estimated Blood Loss 100 / 100 Other: Date of Last Bowel Movement 01/29/18 01/30/18 01/31/18 # Bowel Movements 0 Lab - Hematology Results 01/30/18 01/31/18 05:38 04:18 WBC 14.2 H 11.8 H RBC 3.31 L 3.34 L Hgb 9.7 L 9.7 L Hct 29.9 L 30.3 L MCV 90.3 90.9 MCH 29.2 29.0 MCHC 32.4 31.9 L RDW 19.5 H 19.5 H Plt Count 240 229 MPV 8.0 8.1 Prelim Diff (Auto) Manual diff required Neut % (Auto) 74.8 H Lymph % (Auto) 10.0 [place] % (Auto) 12.0 H Eos % (Auto) 2.0 Baso % (Auto) 1.2 Neut # (Auto) 10.7 H Lymph # (Auto) 1.4 [place] # (Auto) 1.7 H Eos # (Auto) 0.3 Baso # (Auto) 0.2 WBC Differential . Manual diff final Seg Neuts % (Manual) 72 H Band Neuts % (Manual) 1 Lymphocytes % (Manual) 14 Monocytes % (Manual) 11 H Eosinophils % (Manual) 1 Basophils % (Manual) 1 Abs Neuts (Manual) 8.6 H Differential Comment Auto diff final . Platelet Estimate Normal Platelet Morphology Normal Lab - Chemistry Results 01/29/18 01/29/18 01/30/18 16:46 19:38 05:38 Sodium 133 L Potassium 5.1 Chloride 95 L Carbon Dioxide 27.5 Anion Gap 11 BUN 59 H Creatinine 5.33 H Estimated GFR 8 L POC Glucose 147 H 163 H Random Glucose 139 H Calcium 8.3 L Total Bilirubin 0.7 AST 12 L ALT Less than 6 L Alkaline Phosphatase 298 H Total Protein 5.2 L Albumin 1.5 L 01/30/18 01/30/18 01/30/18 08:07 10:25 13:16 Sodium Potassium Chloride Carbon Dioxide Anion Gap BUN Creatinine Estimated GFR POC Glucose 170 H 160 H 125 H Random Glucose Calcium Total Bilirubin AST ALT Alkaline Phosphatase Total Protein Albumin 01/30/18 01/30/18 01/31/18 15:41 19:49 04:18 Sodium 138 Potassium 4.5 Chloride 98 Carbon Dioxide 28.9 Anion Gap 11 BUN 41 H Creatinine 4.15 H Estimated GFR 11 L POC Glucose 135 H 131 H Random Glucose 115 H Calcium 7.9 L Total Bilirubin 0.6 AST 15 ALT Less than 6 L Alkaline Phosphatase 363 H Total Protein 5.1 L Albumin 1.4 L 01/31/18 12:54 Sodium Potassium Chloride Carbon Dioxide Anion Gap BUN Creatinine Estimated GFR POC Glucose 147 H Random Glucose Calcium Total Bilirubin AST ALT Alkaline Phosphatase Total Protein Albumin Imaging: ITS Impressions Femur CT 01/12/18 00:00 CONCLUSION: 1. Soft tissue defect in the anterior upper left thigh and the medial distal left thigh at the level of the knee. 2. Diffuse subcutaneous soft tissue edema. No drainable abscess identified. Aorta w/Runoff CTA 01/15/18 00:00 CONCLUSION: 1. Diffuse atherosclerotic disease with moderate distal aortic stenosis at the bifurcation. 2. Bilateral moderate common iliac artery stenosis, likely overestimated due to degree of calcified plaque. 3. Left femoral to above-knee popliteal artery bypass graft with critical stenosis of the proximal anastomosis and mild stenosis of the distal anastomosis. 4. Diffuse right SFA disease with tandem moderate stenoses in the proximal thigh and tandem severe stenoses in the distal thigh. Diffuse right popliteal artery disease. 5. Limited single vessel runoff on the right. The peroneal artery with reconstitution of the anterior tibial artery in the distal calf. 6. Limited two-vessel runoff on the left. Diffusely diseased posterior tibial and peroneal arteries. 7. Stable 10 mm nodule in the right lung base. Follow-up examination in 3-6 months is again recommended to document stability. 8. Stable additional ancillary findings, as above. Extremity Arterial Study 01/15/18 00:00 CONCLUSION: Findings of severe disease on the right side with nondiagnostic evaluation on the left. CT angiography of the abdominal aorta and lower extremities is recommended for further evaluation if clinically indicated. Head CT 01/16/18 00:00 CONCLUSION: 1. No acute findings in the brain. . Foot X-Ray 01/20/18 00:00 CONCLUSION: No acute findings. No evidence of bony destruction or new periosteal reaction. Purdy Line Insertion 01/26/18 00:00 CONCLUSION: Uncomplicated ultrasound and fluoroscopic guided Purdy catheter placement as above. Physical Exam: GENERAL: Distressed by pain. HEENT: Head is atraumatic. Extraocular movements grossly intact. Pupils reactive to light. No icterus. No conjunctival erythema. Oropharynx mucosa moist. NECK: Supple without adenopathy. LUNGS: Clear to auscultation. HEART: Regular S1, S2, without murmurs, rubs or gallops. ABDOMEN: Bowel sounds present, obese, soft, nontender. EXTREMITIES: The left inner thigh has chronic open ulceration with good granulation tissue, mild erythema at the edge of the lower aspect and some necrosis at the lower aspect near the edge. Lateral left thigh erythema slightly decreased. The left inner tibial area where the dehisced surgical incision has few specks of necrosis. Right groin has sponge overlying surgical incision. No surrounding redness. Post R. BKA. SKIN: No diffuse rash. NEUROLOGIC: No gross focal finding. PSYCHIATRIC: calm, and cooperative. Assessment and Plan - Plan IMPRESION: 1. Severe peripheral vascular disease, now involving the right foot with gangrene at portion of the right fourth toe and the right fifth toe and base of the right fifth MTP. -Vascular disease not fixable with vascular procedure. Post right above-the- knee amputation 01/31/18. 2. Open wound of the left inner tibia which grew out Pseudomonas and Klebsiella, sensitive to cefepime in late November. 3. Chronic open wound of the left inner groin/thigh which has had positive bacteria in the past and was treated with antibiotics and was doing well with dressing changes. 4. Left lateral thigh ecchymosis/cellulitis. Stable. 5. Diabetes mellitus. 6. End-stage renal disease on hemodialysis RECOMMENDATIONS: 1. Continue daptomycin. 2. Continue Meropenem. 3. Continue Diflucan. 4. Stop doxycycline. 5. Monitor wounds and clinical response. Scout/Darian MERCADO.
--- NOTE | 2018-01-31 15:09 | MP ---
cc: Mukesh Rodrigues MD DATE OF OPERATION: PREOPERATIVE DIAGNOSIS: Right lower extremity tissue loss, non-reconstructable disease. POSTOPERATIVE DIAGNOSIS: Right lower extremity tissue loss, non-reconstructable disease. PROCEDURE PERFORMED: Right above-knee amputation. ATTENDING SURGEON: Mukesh Rodrigues MD ASSEMBLER TYPE BAR AND SEGMENT SURGEON: Tonia Koenig. ANESTHESIA: General. INDICATIONS: Ms. Jarrell is a 72-year-old female with peripheral arterial disease and end-stage renal disease. She has a profoundly ischemic forefoot and her only revascularization options are a groin reconstruction and femoral to distal anterior tibial artery bypass with cryopreserved conduit. The patient has not ambulated in several months and after discussion was had with the patient and her as well as consultation by second surgeon, she was offered an above-knee amputation. DESCRIPTION OF PROCEDURE: Informed consent was obtained from the patient. She was taken to the operating room and placed supine on the operating table. An appropriate timeout was taken to ensure the patient's identity, the operative site and planned procedure. She was on systemic and therapeutic antibiotics and these will be continued postoperatively for ongoing treatment of her diabetic foot infection. Everyone in the room agreed with our timeout and we proceeded. The right leg was prepped and draped. An incision was made just above the knee, carried down through subcutaneous tissue with electrocautery. The incision was fish-mouthed medially and laterally. The muscle was divided with electrocautery. The bone was divided with an oscillating saw. The posterior muscle was divided with electrocautery and the femoral vein and superficial femoral artery were clamped and suture ligated. The specimen passed off the table. The wound was irrigated and made hemostatic. The fascia was reapproximated with interrupted 2-0 Polysorb and the skin was closed with jessika. The sponge and needle counts were correct at the end of the case. I was present, scrubbed, and performed the entire procedure. Mukesh Rodrigues MD RJF/ld , 02:36 PM , 02:42 PM
[2018-01-31] MEDS: Morphine Sulfate Inj 2 MG/ML Vial IV.PUSH PRN ×2 (15:17→21:00)
[2018-01-31] MEDS: Psyllium Husk SF 3.4 GM in 5.8 GM Packet PO SCH (16:46)
[2018-01-31] MEDS: Ezetimibe 10 MG Tablet PO SCH (18:27)
[2018-02-01] MEDS: Morphine Sulfate Inj 2 MG/ML Vial IV.PUSH PRN (01:02)
[2018-02-01] MEDS: Heparin - SQ 10,000 UNITS/ML Vial SQ SCH ×2 (01:13→16:00)
[2018-02-01] MEDS: Levothyroxine 125 MCG Tablet PO SCH (06:37)
[2018-02-01 07:02] LABS: Baso # (Auto) 0.1 th/mm3 (0.0-0.2); Baso % (Auto) 0.7 % (0.0-2.0); Eos # (Auto) 0.2 th/mm3 (0.0-0.4); Eos % (Auto) 1.1 % (0.0-4.0); Hematocrit 30.9 % (35.0-46.0); Hemoglobin 9.8 gm/dL (11.6-15.3); Lymph # (Auto) 1.5 th/mm3 (1.0-4.8); Lymph % (Auto) 9.5 % (9.0-44.0); Mean Corpuscular HGB Conc 31.7 % (32.0-36.0); Mean Corpuscular Hemoglobin 28.8 pg (27.0-34.0); Mean Corpuscular Volume 90.9 fL (80.0-100.0); Mean Platelet Volume 7.8 fL (7.0-11.0); Mono # (Auto) 1.7 th/mm3 (0.0-0.9); Mono % (Auto) 11.2 % (0.0-8.0); Neut # (Auto) 12.1 th/mm3 (1.8-7.7); Neut % (Auto) 77.5 % (16.0-70.0); Platelet Count 242 th/mm3 (150-450); Red Cell Distribution Width 19.4 % (11.6-17.2); White Blood Count 15.6 th/mm3 (4.0-11.0)
[2018-02-01 07:24] LABS: Albumin 1.4 g/dL (3.4-5.0); Anion Gap 11 meq/L (5-15); Aspartate Aminotransferase 8 U/L (15-37); Blood Urea Nitrogen 48 mg/dL (7-18); Calcium 8.4 mg/dL (8.5-10.1); Carbon Dioxide 28.3 meq/L (21.0-32.0); Chloride 98 meq/L (98-107); Glomerular Filtration Rate 9 mL/min (>89); Glucose,Random 112 mg/dL (74-106); Potassium 5.1 meq/L (3.5-5.1); Sodium 137 meq/L (136-145)
[2018-02-01 07:27] LABS: Alkaline Phosphatase 312 U/L (45-117); Total Protein 5.2 g/dL (6.4-8.2)
--- NOTE | 2018-02-01 09:14 | P.PNNP ---
Subjective Interval history: Pt feeling well today. s/p amputation yesterday. Apparently had a rough night regarding pain control. and sister present in room. Pending HD today. Physical Exam Vital signs: Vital Signs 01/31/18 12:48 01/31/18 13:00 01/31/18 13:15 Temperature 98.3 F Pulse Rate 58 L 59 L 59 L Respiratory Rate 20 15 12 Blood Pressure 94/44 L 96/42 L 99/44 L Pulse Oximetry 100 99 96 01/31/18 13:30 01/31/18 14:33 01/31/18 16:00 Temperature 98.1 F 97.1 F L Pulse Rate 58 L 58 L 58 L Respiratory Rate 12 17 18 Blood Pressure 92/44 L 127/58 L 127/58 L Pulse Oximetry 100 97 97 01/31/18 17:52 01/31/18 20:00 02/01/18 00:00 Temperature 97.2 F L 97.4 F L Pulse Rate 58 L 57 L Respiratory Rate 18 18 Blood Pressure 120/53 L 117/52 L Pulse Oximetry 97 98 99 02/01/18 04:00 Temperature 97.0 F L Pulse Rate 60 Respiratory Rate 18 Blood Pressure 124/60 Pulse Oximetry 99 Intake & Output 01/31/18 02/01/18 02/01/18 18:59 06:59 18:59 Intake Total 740 / 740 680 / 680 Output Total 100 / 100 Balance 640 / 640 680 / 680 Weight 114.2 kg Intake: IV 200 / 200 200 / 200 Diflucan 200 mg Premix Bag 100 100 / 100 ML @ 100 mls/hr IV.SIG Q24H RICARDO Rx#:[id number] Merrem Inj 1,000 MG In NS Inj 100 / 100 100 ML @ 200 mls/hr IV.SIG Q24H RICARDO Rx#:[id number] NS Inj 500 ML @ 30 mls/hr IV. 200 / 200 SIG .Q10H RICARDO Rx#:[id number] Oral 240 / 240 480 / 480 Anesthesia Amount 300 / 300 Output: Estimated Blood Loss 100 / 100 Other: # Voids 0 Date of Last Bowel Movement 01/31/18 # Bowel Movements 2 - Constitutional no acute distress - Routine HEENT Exam Head: Present: normocephalic - Routine Neck Exam Present: supple - Routine Respiratory Exam Present: CTA bilaterally - Routine Cardiovascular Exam Present: RRR, S1, S2 - Routine Abdominal Exam Present: soft - Routine Extremities Exam Present: edema (1+ hips) - Routine Neurological Exam Present: alert - Urinary Catheter Management Straight Cath placed during this visit: no Reason for continuing: Hourly intake/output Indwelling Urethral Catheter Cath placed during this visit: yes, but has since been removed by the nurse Reason for continuing: Decision to DC catheter Insertion date: 01/24/18 Insertion time: 11:30 Removal date: 01/24/18 Removal time: 12:50 Assessment and Plan - Assessment (1) ESRD (end stage renal disease) on dialysis Code(s): N18.6 - End stage renal disease; Z99.2 - Dependence on renal dialysis Status: Acute Plan: Pending HD today. Continue MWF schedule. Prognosis remains guarded to poor. Gadolinium is contraindicated. Medication should be adjusted for the patient's end-stage renal disease when indicated. (2) Peripheral vascular disease of lower extremity with ulceration Code(s): I73.9 - Peripheral vascular disease, unspecified; L97.909 - Non- pressure chronic ulcer of unspecified part of unspecified lower leg with unspecified severity Status: Acute Plan: s/p right AKA 01/31 Worsening reddening of left lateral thigh. Defer to vascular for further management. (3) Cellulitis Code(s): L03.90 - Cellulitis, unspecified Status: Acute Qualifiers: Site of cellulitis: extremity Site of cellulitis of extremity: lower extremity Laterality: left Qualified Code(s): L03.116 - Cellulitis of left lower limb Plan: Vascular surgery believes probability of calciphylaxis is very low regarding lesion on L lateral thigh and biopsy associated with significant risk as far as healing is concerned. As mentioned previously laboratory results did not appear to be consistent with significant probability for calciphylaxis and the patient does unfortunately have diffuse atherosclerotic disease which likely accounts for clinical findings. (4) DM (diabetes mellitus) Code(s): E11.9 - Type 2 diabetes mellitus without complications Status: Acute Plan: Mgmt per primary
[2018-02-01] MEDS: Albumin Human 25% Inj 100 ML IV.SIG PRN ×2 (10:38→10:39)
--- NOTE | 2018-02-01 12:52 | P.PNVS ---
Subjective Post Op Day #: 1 Procedure: R DILEEP Subjective/Hospital Course: resting in HD today she and her (seen in her room) note pain controlled better last night L hip still painful to her . Objective Vital Signs / I&O: Vital Signs 01/31/18 13:00 01/31/18 13:15 01/31/18 13:30 Temperature 98.1 F Pulse Rate 59 L 59 L 58 L Respiratory Rate 15 12 12 Blood Pressure 96/42 L 99/44 L 92/44 L Pulse Oximetry 99 96 100 01/31/18 14:33 01/31/18 16:00 01/31/18 17:52 Temperature 97.1 F L Pulse Rate 58 L 58 L Respiratory Rate 17 18 Blood Pressure 127/58 L 127/58 L Pulse Oximetry 97 97 97 01/31/18 20:00 02/01/18 00:00 02/01/18 04:00 Temperature 97.2 F L 97.4 F L 97.0 F L Pulse Rate 58 L 57 L 60 Respiratory Rate 18 18 18 Blood Pressure 120/53 L 117/52 L 124/60 Pulse Oximetry 98 99 99 02/01/18 08:00 02/01/18 09:45 Temperature 97.9 F Pulse Rate 63 Respiratory Rate 17 Blood Pressure 123/53 L Pulse Oximetry 97 95 Intake & Output 01/31/18 02/01/18 02/01/18 18:59 06:59 18:59 Intake Total 740 / 740 680 / 680 200 / 200 Output Total 100 / 100 Balance 640 / 640 680 / 680 200 / 200 Weight 114.2 kg Intake: IV 200 / 200 200 / 200 200 / 200 Flexbumin 25% Inj 100 ML @ 60 200 / 200 mls/hr IV.SIG WITH DIALYSIS PRN Rx#:[id number] Diflucan 200 mg Premix Bag 100 100 / 100 ML @ 100 mls/hr IV.SIG Q24H RICARDO Rx#:[id number] Merrem Inj 1,000 MG In NS Inj 100 / 100 100 ML @ 200 mls/hr IV.SIG Q24H RICARDO Rx#:[id number] NS Inj 500 ML @ 30 mls/hr IV. 200 / 200 SIG .Q10H RICARDO Rx#:[id number] Oral 240 / 240 480 / 480 Anesthesia Amount 300 / 300 Output: Estimated Blood Loss 100 / 100 Other: # Voids 0 Date of Last Bowel Movement 01/31/18 # Bowel Movements 2 Exam: resting comfortably R AKA dressing in place L hip with skin necrosis Laboratory Results - last 24 hr 01/31/18 01/31/18 02/01/18 12:54 21:04 06:30 WBC 15.6 H RBC 3.40 L Hgb 9.8 L Hct 30.9 L MCV 90.9 MCH 28.8 MCHC 31.7 L RDW 19.4 H Plt Count 242 MPV 7.8 Neut % (Auto) 77.5 H Lymph % (Auto) 9.5 [place] % (Auto) 11.2 H Eos % (Auto) 1.1 Baso % (Auto) 0.7 Neut # (Auto) 12.1 H Lymph # (Auto) 1.5 [place] # (Auto) 1.7 H Eos # (Auto) 0.2 Baso # (Auto) 0.1 WBC Differential . Differential Comment Auto diff final Sodium Potassium Chloride Carbon Dioxide Anion Gap BUN Creatinine Estimated GFR POC Glucose 147 H 121 H Random Glucose Calcium Total Bilirubin AST ALT Alkaline Phosphatase Total Protein Albumin 02/01/18 02/01/18 02/01/18 06:30 08:18 11:40 WBC RBC Hgb Hct MCV MCH MCHC RDW Plt Count MPV Neut % (Auto) Lymph % (Auto) [place] % (Auto) Eos % (Auto) Baso % (Auto) Neut # (Auto) Lymph # (Auto) [place] # (Auto) Eos # (Auto) Baso # (Auto) WBC Differential Differential Comment Sodium 137 Potassium 5.1 Chloride 98 Carbon Dioxide 28.3 Anion Gap 11 BUN 48 H Creatinine 4.94 H Estimated GFR 9 L POC Glucose 130 H 116 H Random Glucose 112 H Calcium 8.4 L Total Bilirubin 0.7 AST 8 L ALT Less than 6 L Alkaline Phosphatase 312 H Total Protein 5.2 L Albumin 1.4 L Assessment and Plan - Assessment (1) Peripheral vascular disease of lower extremity with ulceration Code(s): I73.9 - Peripheral vascular disease, unspecified; L97.909 - Non- pressure chronic ulcer of unspecified part of unspecified lower leg with unspecified severity Status: Acute - Plan y. POD#1 s/p R AKA 1. Dressing down POD#4-5 2. Continue wound care to L hip - I still think this is ischemic in nature 3. Aggressive PT
--- NOTE | 2018-02-01 13:43 | P.PNIM ---
Subjective Interval history: Mrs. Jarrell is seen in dialysis today. She is doing well status post amputation. Pain controlled. Physical Exam Vital signs: Vital Signs 01/31/18 14:33 01/31/18 16:00 01/31/18 17:52 Temperature 97.1 F L Pulse Rate 58 L 58 L Respiratory Rate 17 18 Blood Pressure 127/58 L 127/58 L Pulse Oximetry 97 97 97 01/31/18 20:00 02/01/18 00:00 02/01/18 04:00 Temperature 97.2 F L 97.4 F L 97.0 F L Pulse Rate 58 L 57 L 60 Respiratory Rate 18 18 18 Blood Pressure 120/53 L 117/52 L 124/60 Pulse Oximetry 98 99 99 02/01/18 08:00 02/01/18 09:45 Temperature 97.9 F Pulse Rate 63 Respiratory Rate 17 Blood Pressure 123/53 L Pulse Oximetry 97 95 Intake & Output 01/31/18 02/01/18 02/01/18 18:59 06:59 18:59 Intake Total 740 / 740 680 / 680 200 / 200 Output Total 100 / 100 Balance 640 / 640 680 / 680 200 / 200 Weight 114.2 kg Intake: IV 200 / 200 200 / 200 200 / 200 Flexbumin 25% Inj 100 ML @ 60 200 / 200 mls/hr IV.SIG WITH DIALYSIS PRN Rx#:[id number] Diflucan 200 mg Premix Bag 100 100 / 100 ML @ 100 mls/hr IV.SIG Q24H RICARDO Rx#:[id number] Merrem Inj 1,000 MG In NS Inj 100 / 100 100 ML @ 200 mls/hr IV.SIG Q24H RICARDO Rx#:[id number] NS Inj 500 ML @ 30 mls/hr IV. 200 / 200 SIG .Q10H RICARDO Rx#:[id number] Oral 240 / 240 480 / 480 Anesthesia Amount 300 / 300 Output: Estimated Blood Loss 100 / 100 Other: # Voids 0 Date of Last Bowel Movement 01/31/18 # Bowel Movements 2 Narrative: GENERAL: NAD, A&Ox3 HEAD: Normocephalic. NECK: Supple, trachea midline. No lymphadenopathy. EYES: No scleral icterus. No injection or drainage. CARDIOVASCULAR: Regular rate and rhythm without murmurs, gallops, or rubs. RESPIRATORY: Breath sounds equal bilaterally. No accessory muscle use. GASTROINTESTINAL: Abdomen soft, non-tender, nondistended. MUSCULOSKELETAL: No cyanosis, or edema. Right AKA. SKIN: Warm and dry. NEURO: No focal neurological deficits. - Urinary Catheter Management Straight Cath placed during this visit: no Reason for continuing: Hourly intake/output Indwelling Urethral Catheter Cath placed during this visit: yes, but has since been removed by the nurse Reason for continuing: Decision to DC catheter Insertion date: 01/24/18 Insertion time: 11:30 Removal date: 01/24/18 Removal time: 12:50 Results - Labs CBC & Chem 7: 02/01/18 06:30 02/01/18 06:30 Laboratory Results - last 24 hr 01/31/18 02/01/18 02/01/18 21:04 06:30 06:30 WBC 15.6 H RBC 3.40 L Hgb 9.8 L Hct 30.9 L MCV 90.9 MCH 28.8 MCHC 31.7 L RDW 19.4 H Plt Count 242 MPV 7.8 Neut % (Auto) 77.5 H Lymph % (Auto) 9.5 [place] % (Auto) 11.2 H Eos % (Auto) 1.1 Baso % (Auto) 0.7 Neut # (Auto) 12.1 H Lymph # (Auto) 1.5 [place] # (Auto) 1.7 H Eos # (Auto) 0.2 Baso # (Auto) 0.1 WBC Differential . Differential Comment Auto diff final Sodium 137 Potassium 5.1 Chloride 98 Carbon Dioxide 28.3 Anion Gap 11 BUN 48 H Creatinine 4.94 H Estimated GFR 9 L POC Glucose 121 H Random Glucose 112 H Calcium 8.4 L Total Bilirubin 0.7 AST 8 L ALT Less than 6 L Alkaline Phosphatase 312 H Total Protein 5.2 L Albumin 1.4 L 02/01/18 02/01/18 08:18 11:40 WBC RBC Hgb Hct MCV MCH MCHC RDW Plt Count MPV Neut % (Auto) Lymph % (Auto) [place] % (Auto) Eos % (Auto) Baso % (Auto) Neut # (Auto) Lymph # (Auto) [place] # (Auto) Eos # (Auto) Baso # (Auto) WBC Differential Differential Comment Sodium Potassium Chloride Carbon Dioxide Anion Gap BUN Creatinine Estimated GFR POC Glucose 130 H 116 H Random Glucose Calcium Total Bilirubin AST ALT Alkaline Phosphatase Total Protein Albumin Assessment and Plan - Assessment (1) Cellulitis Code(s): L03.90 - Cellulitis, unspecified Status: Acute (2) ESRD (end stage renal disease) on dialysis Code(s): N18.6 - End stage renal disease; Z99.2 - Dependence on renal dialysis Status: Acute (3) HTN (hypertension) Code(s): I10 - Essential (primary) hypertension Status: Acute (4) DM (diabetes mellitus) Code(s): E11.9 - Type 2 diabetes mellitus without complications Status: Acute (5) Gangrene of right foot Code(s): I96 - Gangrene, not elsewhere classified Status: Acute - Plan 72 y/o WF admitted for BL LE pain secondary to infection/gangrene. Amputation of right lower extremity completed yesterday. Pain control. Some encephalopathy related to narcotics. Continue dialysis. Continue antibiotics. Continue monitoring for signs of sepsis or bacteremia. Labs reviewed. Right lower extremity cellulitis left groin and left popliteal wounds PAD Right lower extremity gangrene Lower extremity limb ischemia Chronic left thigh wound Stage 1/2 ulcer left thigh Plan for right lower extremity amputation on 01/31/2018 Vascular surgeon following Podiatry following Trauma surgeon following Continue statin Continue pain management Wound care nurse following Antibiotics in place: Meropenem, minocycline, fluconazole Hypertension Continue Coreg Monitor blood pressures Diabetes type I Continue insulin pump Follow blood sugars Insulin sliding scale Diabetic diet End-stage renal disease Continue dialysis Tuesday. Continue dialysis per nephrology Nephrology following Constipation Chronic. Continue Metamucil Chronic pain Continue pain control. Hospital induced delirium/. Supportive care DVT Prophylaxis Heparin Discharge Planning: Limb amputation pending prior to discharge (1) Cellulitis Qualifiers: Site of cellulitis: extremity Site of cellulitis of extremity: lower extremity Laterality: left Qualified Code(s): L03.116 - Cellulitis of left lower limb
[2018-02-01] MEDS: Insulin NovoLOG Aspart Correctional Sugar Inj SQ SCH ×4 (15:56→22:06)
[2018-02-01] MEDS: Famotidine 20 MG Tablet PO SCH ×2 (15:57→22:02)
[2018-02-01] MEDS: Gabapentin 100 MG Capsule PO SCH ×2 (15:58→22:02)
[2018-02-01] MEDS: Heparin Central Flush 100 UNIT/ML 5 ML Vial IV.FLUSH SCH (15:59)
[2018-02-01] MEDS: Carvedilol 6.25 MG Tablet PO SCH ×2 (15:59→22:03)
[2018-02-01] MEDS: Insulin Detemir Inj 1,000 UNIT/10 ML Vial SQ SCH ×2 (15:59→22:04)
[2018-02-01] MEDS: Collagenase Oint 30 GM Tube TOPICAL SCH (16:00)
[2018-02-01] MEDS: DAPTOmycin Inj 600 MG in Sodium Chlor 0.9% Inj 100 ML IV.SIG SCH (16:26)
[2018-02-01] MEDS: Psyllium Husk SF 3.4 GM in 5.8 GM Packet PO SCH (16:26)
[2018-02-01] MEDS: Ezetimibe 10 MG Tablet PO SCH (19:00)
[2018-02-02] MEDS: Heparin - SQ 10,000 UNITS/ML Vial SQ SCH ×3 (00:35→23:38)
[2018-02-02] MEDS: Morphine Sulfate Inj 2 MG/ML Vial IV.PUSH PRN (00:35)
[2018-02-02] MEDS: Levothyroxine 125 MCG Tablet PO SCH (05:07)
[2018-02-02 05:53] LABS: Baso # (Auto) 0.1 th/mm3 (0.0-0.2); Eos # (Auto) 0.1 th/mm3 (0.0-0.4); Eos % (Auto) 0.7 % (0.0-4.0); Hematocrit 29.3 % (35.0-46.0); Hemoglobin 9.3 gm/dL (11.6-15.3); Lymph # (Auto) 1.4 th/mm3 (1.0-4.8); Lymph % (Auto) 11.3 % (9.0-44.0); Mean Corpuscular HGB Conc 31.6 % (32.0-36.0); Mean Corpuscular Volume 91.7 fL (80.0-100.0); Mean Platelet Volume 7.8 fL (7.0-11.0); Mono # (Auto) 1.8 th/mm3 (0.0-0.9); Mono % (Auto) 14.4 % (0.0-8.0); Neut # (Auto) 9.1 th/mm3 (1.8-7.7); Neut % (Auto) 72.6 % (16.0-70.0); Platelet Count 208 th/mm3 (150-450); Red Cell Distribution Width 18.9 % (11.6-17.2); White Blood Count 12.6 th/mm3 (4.0-11.0)
[2018-02-02 06:19] LABS: Albumin 2.1 g/dL (3.4-5.0); Alkaline Phosphatase 298 U/L (45-117); Anion Gap 9 meq/L (5-15); Aspartate Aminotransferase 11 U/L (15-37); Blood Urea Nitrogen 30 mg/dL (7-18); Calcium 8.9 mg/dL (8.5-10.1); Carbon Dioxide 32.1 meq/L (21.0-32.0); Chloride 98 meq/L (98-107); Glomerular Filtration Rate 13 mL/min (>89); Glucose,Random 116 mg/dL (74-106); Phosphorus 4.9 mg/dL (2.5-4.9); Sodium 139 meq/L (136-145); Total Protein 5.4 g/dL (6.4-8.2)
[2018-02-02] MEDS: Gabapentin 100 MG Capsule PO SCH ×2 (08:56→20:25)
[2018-02-02] MEDS: Famotidine 20 MG Tablet PO SCH ×2 (08:58→20:26)
[2018-02-02] MEDS: Carvedilol 6.25 MG Tablet PO SCH ×2 (08:58→20:25)
[2018-02-02] MEDS: Collagenase Oint 30 GM Tube TOPICAL SCH (08:59)
[2018-02-02] MEDS: Insulin NovoLOG Aspart Correctional Sugar Inj SQ SCH ×4 (08:59→20:31)
--- NOTE | 2018-02-02 09:36 | P.PNNP ---
Subjective Interval history: Patient status post AKA right lower extremity. Physical Exam Vital signs: Vital Signs 02/01/18 09:45 02/01/18 16:00 02/01/18 20:00 Temperature 97.6 F 98.3 F Pulse Rate 67 65 Respiratory Rate 18 17 Blood Pressure 95/41 L 112/68 Pulse Oximetry 95 96 93 L 02/02/18 00:00 02/02/18 04:00 Temperature 97.5 F L 98.2 F Pulse Rate 63 69 Respiratory Rate 16 17 Blood Pressure 134/60 122/70 Pulse Oximetry 95 93 L Intake & Output 02/01/18 02/02/18 02/02/18 18:59 06:59 18:59 Intake Total 1020 / 1020 440 / 440 Output Total 1999 Balance -980 / -980 440 / 440 Weight 110.6 kg Intake: IV 300 / 300 200 / 200 Flexbumin 25% Inj 100 ML @ 60 200 / 200 mls/hr IV.SIG WITH DIALYSIS PRN Rx#:[id number] Cubicin Inj 600 MG In NS Inj 100 / 100 100 ML @ 200 mls/hr IV.SIG Q48H RICARDO Rx#:[id number] Diflucan 200 mg Premix Bag 100 100 / 100 ML @ 100 mls/hr IV.SIG Q24H RICARDO Rx#:[id number] Merrem Inj 1,000 MG In NS Inj 100 / 100 100 ML @ 200 mls/hr IV.SIG Q24H RICARDO Rx#:[id number] Oral 720 / 720 240 / 240 Output: Hemodialysis Amount 1999 Other: # Voids 0 - Urinary Catheter Management Straight Cath placed during this visit: no Reason for continuing: Hourly intake/output Indwelling Urethral Catheter Cath placed during this visit: yes, but has since been removed by the nurse Reason for continuing: Decision to DC catheter Insertion date: 01/24/18 Insertion time: 11:30 Removal date: 01/24/18 Removal time: 12:50 Assessment and Plan - Assessment (1) ESRD (end stage renal disease) on dialysis Code(s): N18.6 - End stage renal disease; Z99.2 - Dependence on renal dialysis Status: Acute Plan: Continue MWF scheduleA hemodialysis. Prognosis remains guarded to poor. Gadolinium is contraindicated. Medication should be adjusted for the patient's end-stage renal disease when indicated. (2) Peripheral vascular disease of lower extremity with ulceration Code(s): I73.9 - Peripheral vascular disease, unspecified; L97.909 - Non- pressure chronic ulcer of unspecified part of unspecified lower leg with unspecified severity Status: Acute Plan: s/p right AKA 01/31 (3) Cellulitis Code(s): L03.90 - Cellulitis, unspecified Status: Acute Qualifiers: Site of cellulitis: extremity Site of cellulitis of extremity: lower extremity Laterality: left Qualified Code(s): L03.116 - Cellulitis of left lower limb Plan: Vascular surgery believes probability of calciphylaxis is very low regarding lesion on L lateral thigh and biopsy associated with significant risk as far as healing is concerned. As mentioned previously laboratory results did not appear to be consistent with significant probability for calciphylaxis and the patient does unfortunately have diffuse atherosclerotic disease which likely accounts for clinical findings. (4) DM (diabetes mellitus) Code(s): E11.9 - Type 2 diabetes mellitus without complications Status: Acute Plan: Mgmt per primary
[2018-02-02] MEDS: Insulin Detemir Inj 1,000 UNIT/10 ML Vial SQ SCH ×2 (09:45→20:26)
--- NOTE | 2018-02-02 14:17 | P.PN ---
Subjective Interval history: Follow-up right AKA and left thigh cellulitis. Continues to complain of pain controlled with current pain medicines. Seen with . Discussed with nursing Physical Exam Vital signs: Vital Signs 02/01/18 16:00 02/01/18 20:00 02/02/18 00:00 Temperature 97.6 F 98.3 F 97.5 F L Pulse Rate 67 65 63 Respiratory Rate 18 17 16 Blood Pressure 95/41 L 112/68 134/60 Pulse Oximetry 96 93 L 95 02/02/18 04:00 02/02/18 08:00 02/02/18 10:55 Temperature 98.2 F 98.1 F Pulse Rate 69 63 Respiratory Rate 17 18 Blood Pressure 122/70 130/64 Pulse Oximetry 93 L 93 L 95 02/02/18 12:00 Temperature 97.7 F Pulse Rate 63 Respiratory Rate 18 Blood Pressure 128/58 L Pulse Oximetry 95 Intake & Output 02/01/18 02/02/18 02/02/18 18:59 06:59 18:59 Intake Total 1020 / 1020 440 / 440 Output Total 1999 Balance -980 / -980 440 / 440 Weight 110.6 kg Intake: IV 300 / 300 200 / 200 Flexbumin 25% Inj 100 ML @ 60 200 / 200 mls/hr IV.SIG WITH DIALYSIS PRN Rx#:[id number] Cubicin Inj 600 MG In NS Inj 100 / 100 100 ML @ 200 mls/hr IV.SIG Q48H RICARDO Rx#:[id number] Diflucan 200 mg Premix Bag 100 100 / 100 ML @ 100 mls/hr IV.SIG Q24H RICARDO Rx#:[id number] Merrem Inj 1,000 MG In NS Inj 100 / 100 100 ML @ 200 mls/hr IV.SIG Q24H RICARDO Rx#:[id number] Oral 720 / 720 240 / 240 Output: Hemodialysis Amount 1999 Other: # Voids 0 Narrative: GENERAL: NAD, A&Ox3 CARDIOVASCULAR: Regular rate and rhythm without murmurs, gallops, or rubs. RESPIRATORY: Breath sounds equal bilaterally. No accessory muscle use. GASTROINTESTINAL: Abdomen soft, non-tender, nondistended. MUSCULOSKELETAL: No cyanosis, or edema. Right AKA. SKIN: Warm and dry. Skin necrosis left lateral thigh NEURO: No focal neurological deficits. - Urinary Catheter Management Straight Cath placed during this visit: no Reason for continuing: Hourly intake/output Indwelling Urethral Catheter Cath placed during this visit: yes, but has since been removed by the nurse Reason for continuing: Decision to DC catheter Insertion date: 01/24/18 Insertion time: 11:30 Removal date: 01/24/18 Removal time: 12:50 Results - Labs CBC & Chem 7: 02/02/18 05:40 02/02/18 05:40 Laboratory Results - last 24 hr 01/31/18 01/31/18 01/31/18 07:53 10:26 16:19 WBC RBC Hgb Hct MCV MCH MCHC RDW Plt Count MPV Neut % (Auto) Lymph % (Auto) [place] % (Auto) Eos % (Auto) Baso % (Auto) Neut # (Auto) Lymph # (Auto) [place] # (Auto) Eos # (Auto) Baso # (Auto) WBC Differential Differential Comment Sodium Potassium Chloride Carbon Dioxide Anion Gap BUN Creatinine Estimated GFR POC Glucose 134 H 134 H 132 H Random Glucose Calcium Phosphorus Total Bilirubin AST ALT Alkaline Phosphatase Total Protein Albumin 02/01/18 02/01/18 02/02/18 16:07 22:06 05:40 WBC 12.6 H RBC 3.20 L Hgb 9.3 L Hct 29.3 L MCV 91.7 MCH 29.0 MCHC 31.6 L RDW 18.9 H Plt Count 208 MPV 7.8 Neut % (Auto) 72.6 H Lymph % (Auto) 11.3 [place] % (Auto) 14.4 H Eos % (Auto) 0.7 Baso % (Auto) 1.0 Neut # (Auto) 9.1 H Lymph # (Auto) 1.4 [place] # (Auto) 1.8 H Eos # (Auto) 0.1 Baso # (Auto) 0.1 WBC Differential . Differential Comment Auto diff final Sodium Potassium Chloride Carbon Dioxide Anion Gap BUN Creatinine Estimated GFR POC Glucose 113 H 140 H Random Glucose Calcium Phosphorus Total Bilirubin AST ALT Alkaline Phosphatase Total Protein Albumin 02/02/18 02/02/18 02/02/18 05:40 07:56 13:34 WBC RBC Hgb Hct MCV MCH MCHC RDW Plt Count MPV Neut % (Auto) Lymph % (Auto) [place] % (Auto) Eos % (Auto) Baso % (Auto) Neut # (Auto) Lymph # (Auto) [place] # (Auto) Eos # (Auto) Baso # (Auto) WBC Differential Differential Comment Sodium 139 Potassium 4.0 D Chloride 98 Carbon Dioxide 32.1 H Anion Gap 9 BUN 30 H Creatinine 3.36 H Estimated GFR 13 L POC Glucose 114 H 121 H Random Glucose 116 H Calcium 8.9 Phosphorus 4.9 Total Bilirubin 0.8 AST 11 L ALT Less than 6 L Alkaline Phosphatase 298 H Total Protein 5.4 L Albumin 2.1 L D - Imaging ITS Impressions Femur CT 01/12/18 00:00 CONCLUSION: 1. Soft tissue defect in the anterior upper left thigh and the medial distal left thigh at the level of the knee. 2. Diffuse subcutaneous soft tissue edema. No drainable abscess identified. Aorta w/Runoff CTA 01/15/18 00:00 CONCLUSION: 1. Diffuse atherosclerotic disease with moderate distal aortic stenosis at the bifurcation. 2. Bilateral moderate common iliac artery stenosis, likely overestimated due to degree of calcified plaque. 3. Left femoral to above-knee popliteal artery bypass graft with critical stenosis of the proximal anastomosis and mild stenosis of the distal anastomosis. 4. Diffuse right SFA disease with tandem moderate stenoses in the proximal thigh and tandem severe stenoses in the distal thigh. Diffuse right popliteal artery disease. 5. Limited single vessel runoff on the right. The peroneal artery with reconstitution of the anterior tibial artery in the distal calf. 6. Limited two-vessel runoff on the left. Diffusely diseased posterior tibial and peroneal arteries. 7. Stable 10 mm nodule in the right lung base. Follow-up examination in 3-6 months is again recommended to document stability. 8. Stable additional ancillary findings, as above. Extremity Arterial Study 01/15/18 00:00 CONCLUSION: Findings of severe disease on the right side with nondiagnostic evaluation on the left. CT angiography of the abdominal aorta and lower extremities is recommended for further evaluation if clinically indicated. Head CT 01/16/18 00:00 CONCLUSION: 1. No acute findings in the brain. . Foot X-Ray 01/20/18 00:00 CONCLUSION: No acute findings. No evidence of bony destruction or new periosteal reaction. Purdy Line Insertion 01/26/18 00:00 CONCLUSION: Uncomplicated ultrasound and fluoroscopic guided Purdy catheter placement as above. - Procedures r AKa Assessment and Plan - Assessment (1) Cellulitis Code(s): L03.90 - Cellulitis, unspecified Status: Acute (2) ESRD (end stage renal disease) on dialysis Code(s): N18.6 - End stage renal disease; Z99.2 - Dependence on renal dialysis Status: Acute (3) HTN (hypertension) Code(s): I10 - Essential (primary) hypertension Status: Acute (4) DM (diabetes mellitus) Code(s): E11.9 - Type 2 diabetes mellitus without complications Status: Acute (5) Gangrene of right foot Code(s): I96 - Gangrene, not elsewhere classified Status: Acute - Plan 72 y/o WF admitted for BL LE pain secondary to infection/gangrene. Right lower extremity cellulitis left groin and left popliteal wounds PAD Right lower extremity gangrene Lower extremity limb ischemia Chronic left thigh wound Stage 1/2 ulcer left thigh S/p right lower extremity amputation on 01/31/2018 Vascular surgeon following Podiatry following Trauma surgeon following Continue statin Continue pain management consult regarding narcotics Wound care nurse following Antibiotics in place: Meropenem, merrem fluconazole per ID Hypertension Continue Coreg Monitor blood pressures Diabetes type I Continue insulin pump Follow blood sugars Insulin sliding scale Diabetic diet End-stage renal disease Continue dialysis Tuesday. Continue dialysis per nephrology Nephrology following Constipation Chronic. Continue Metamucil Chronic pain Continue pain control. Hospital induced delirium/. Supportive care DVT Prophylaxis Heparin Right lung base nodule. Repeat CT scan in 3-6 months discharge Planning: when cleared by Vasc and ID (1) Cellulitis Qualifiers: Site of cellulitis: extremity Site of cellulitis of extremity: lower extremity Laterality: left Qualified Code(s): L03.116 - Cellulitis of left lower limb
[2018-02-02] MEDS: Heparin Central Flush 100 UNIT/ML 5 ML Vial IV.FLUSH SCH (15:27)
--- NOTE | 2018-02-02 18:22 | P.DIET ---
Nutritional Evaluation Type of nutrition evaluation: follow-up Nutrition consult regarding: Diet Evaluation ([facility] [place] to Oral [place]ake) Screening comments: 02/02/18 [facility] [place] Wound-Multiple Wounds 01/14 [facility] [place] for supplement to oral intake Subjective Subjective Comments: Pt. sleeping during this visit. Pt's and bedside and he reports pt did not sleep well last night. He goes on to say that the pt wont drink Glucerna Shakes or Nepro supplement. Discussed Suraj supplement BID for wound healing and pt's is receptive to mixing the Suraj into a liquid when he visits her daily. Objective - Diagnosis Limb Ischemia, LLE Infection - Objective Part of Body Amputated: Right above knee (12%) (minus 16-lb(7.3 kg)from IBW for an adjusted IBW of 120-lb(54.4kg)) [place] body weight: 54.5 kg % IBW: 202 Body Weight Used for Calculations: IBW (61.4kg) Energy Needs - Lower Range (kCal/kg): 33 Energy Needs - Upper Range (kCal/kg): 38 Lower Limit kCal/kg (kCals): 1,799 Upper Limit kCal/kg (kCals): 2,071 Lower Limit Protein Factor (Grams per Kg): 1.5 Upper Limit Protein Factor (Grams per Kg): 1.8 Lower Protein Needs (Protein): 82 Upper Protein Needs (Protein): 98 Dietitian Reviewed in Medical Record: Current diet, Curent medications, Intake & Output, Labs, Medical history, Wound/DTI Diet Order: Oral Diet Intake Amount: Fair 50-75% Wound Care Note: 01/26 [facility] note-reviewed: wounds to left groin, left medial wound, right heel- please see note in EMR 01/13 [facility] note-reviewed: Unstageable pressure injury to Right heel Objective Comments: PMH Includes: ESRD HD M-W-F, high cholesterol, HTN, DM-2 w/Insulin pump inlace POC Glucose 114, 121; BUN 30, Creatinine 3.36, estGFR 13, Phosphorus 4.9 Meds: Lipitor, Zetia, Coreg, Cinacalcet, Catapres, Pepcid, Neurontin, Metamucil Fiber, Synthroid, Renvela, Levemir, Novolog SSI LBM 01/31 Feeding - Current PO Supplement Current Supplement: Nepro Current Frequency of Supplement: Twice daily Current kCals Provided by Supplement: 425 Current Protein Provided by Supplement: 19 Assessment Assessment: Pt continues to be at nutritional risk r/t diagnosis, increased needs for wounds and ESRD on hemodialysis . Pt receiving hospice services at home prior to this admission. Nutritional needs reassessed this visit s/p TEDDY. Variable po intake 50% to 75% for meals. Continue Nepro supplement BID. Start Suraj 1-packet BID for wound healing; pt's will mix w/liquids daily for this pt. Dietitian following. Recommendations: 1. Pt's nutritional needs reassessed s/p RAKA 2. Continue Nepro supplement BID 3. Pt receives some food from outside 4. Start Suraj 1-packet BID for wound healing 5. Dietitian following Dietitian to Monitor: Lab values, Electrolytes, Renal labs, Glucose level, Supplement acceptance, Intake & Output, Diet tolerance, Weight change, PO Intake , Wound/skin status, Medical course
[2018-02-02] MEDS: Psyllium Husk SF 3.4 GM in 5.8 GM Packet PO SCH (18:49)
[2018-02-02] MEDS: Ezetimibe 10 MG Tablet PO SCH (18:50)
[2018-02-03] MEDS: Levothyroxine 125 MCG Tablet PO SCH (05:42)
[2018-02-03] MEDS: Insulin NovoLOG Aspart Correctional Sugar Inj SQ SCH ×4 (07:57→21:56)
[2018-02-03] MEDS: Carvedilol 6.25 MG Tablet PO SCH ×2 (09:49→21:48)
[2018-02-03] MEDS: Heparin Central Flush 100 UNIT/ML 5 ML Vial IV.FLUSH SCH (09:50)
[2018-02-03] MEDS: Gabapentin 100 MG Capsule PO SCH ×2 (09:51→21:48)
[2018-02-03] MEDS: Insulin Detemir Inj 1,000 UNIT/10 ML Vial SQ SCH ×2 (09:52→21:55)
[2018-02-03] MEDS: Famotidine 20 MG Tablet PO SCH ×2 (09:53→21:47)
[2018-02-03] MEDS: Collagenase Oint 30 GM Tube TOPICAL SCH (09:53)
--- NOTE | 2018-02-03 11:13 | P.PNVS ---
Subjective Post Op Day #: 3 Procedure: R AKA Subjective/Hospital Course: Pt alert in NAD Pain controlled Pt w/o complaints at the BS Left hip wound stable . Objective Vital Signs / I&O: Vital Signs 02/02/18 12:00 02/02/18 16:00 02/02/18 20:00 Temperature 97.7 F 97.2 F L Pulse Rate 63 59 L 55 L Respiratory Rate 18 18 Blood Pressure 128/58 L 123/56 L Pulse Oximetry 95 92 L 02/02/18 20:15 02/03/18 00:05 02/03/18 01:39 Temperature 98.0 F 97.9 F Pulse Rate 59 L 58 L 60 Respiratory Rate 17 17 Blood Pressure 126/60 127/61 Pulse Oximetry 96 96 02/03/18 04:40 02/03/18 09:44 Temperature 97.9 F Pulse Rate 85 Respiratory Rate 18 Blood Pressure 118/69 Pulse Oximetry 92 L 93 L Intake & Output 02/02/18 02/03/18 02/03/18 18:59 06:59 18:59 Intake Total 780 / 780 Output Total 100 / 100 Balance 780 / 780 -100 / -100 Weight 110.8 kg Intake: IV 200 / 200 Diflucan 200 mg Premix Bag 100 100 / 100 ML @ 100 mls/hr IV.SIG Q24H RICARDO Rx#:[id number] Merrem Inj 1,000 MG In NS Inj 100 / 100 100 ML @ 200 mls/hr IV.SIG Q24H RICARDO Rx#:[id number] Oral 580 / 580 Output: Emesis 100 / 100 Other: # Voids 0 Date of Last Bowel Movement 01/31/18 02/02/18 # Bowel Movements 0 Exam: Alert 72/F Dressing to R AKA I/C/D Necrotic L hip wound noted Incision to R groin intact w/o R/D/S/O/hematoma Laboratory Results - last 24 hr 02/02/18 02/02/18 02/02/18 13:34 18:54 20:31 POC Glucose 121 H 118 H 126 H 02/03/18 07:55 POC Glucose 122 H Assessment and Plan - Assessment (1) Peripheral vascular disease of lower extremity with ulceration Code(s): I73.9 - Peripheral vascular disease, unspecified; L97.909 - Non- pressure chronic ulcer of unspecified part of unspecified lower leg with unspecified severity Status: Acute - Plan 72/F s/p R AKA POD 3 Pain controlled Pt w/o complaints Wounds stable Plan Removed Prevena wound vac R groin Keep R groin incision site dry and open to air- Apply sterile 4x4 to R groin incision site Continue PT Continue wound care- Recommend hyperbaric wound care therapy Post operative dressing to be removed tomorrow POD 4 D/C planning- Tim Mariee NP [facility] [phone]
[2018-02-03] MEDS: Heparin - SQ 10,000 UNITS/ML Vial SQ SCH (11:31)
--- NOTE | 2018-02-03 11:54 | P.PN ---
Subjective Interval history: Follow-up PAD and end-stage renal disease preceding during hemodialysis. Denies hip pain. Had nausea and vomited during breakfast states she had too much to eat. At this time improved nausea. No abdominal pain. Stooling. Discussed with vascular surgery and infectious disease, almaay for discharge to rehab Physical Exam Vital signs: Vital Signs 02/02/18 12:00 02/02/18 16:00 02/02/18 20:00 Temperature 97.7 F 97.2 F L Pulse Rate 63 59 L 55 L Respiratory Rate 18 18 Blood Pressure 128/58 L 123/56 L Pulse Oximetry 95 92 L 02/02/18 20:15 02/03/18 00:05 02/03/18 01:39 Temperature 98.0 F 97.9 F Pulse Rate 59 L 58 L 60 Respiratory Rate 17 17 Blood Pressure 126/60 127/61 Pulse Oximetry 96 96 02/03/18 04:40 02/03/18 09:44 Temperature 97.9 F Pulse Rate 85 Respiratory Rate 18 Blood Pressure 118/69 Pulse Oximetry 92 L 93 L Intake & Output 02/02/18 02/03/18 02/03/18 18:59 06:59 18:59 Intake Total 780 / 780 Output Total 100 / 100 Balance 780 / 780 -100 / -100 Weight 110.8 kg Intake: IV 200 / 200 Diflucan 200 mg Premix Bag 100 100 / 100 ML @ 100 mls/hr IV.SIG Q24H RICARDO Rx#:[id number] Merrem Inj 1,000 MG In NS Inj 100 / 100 100 ML @ 200 mls/hr IV.SIG Q24H RICARDO Rx#:[id number] Oral 580 / 580 Output: Emesis 100 / 100 Other: # Voids 0 Date of Last Bowel Movement 01/31/18 02/02/18 # Bowel Movements 0 Narrative: GENERAL: NAD, A&Ox3. Currently is receiving hemodialysis. CARDIOVASCULAR: Regular rate and rhythm without murmurs, gallops, or rubs. RESPIRATORY: Breath sounds equal bilaterally. No accessory muscle use. GASTROINTESTINAL: Abdomen soft, non-tender, nondistended. MUSCULOSKELETAL: No cyanosis, 1+ pitting edema dependent thighs.. Right AKA. SKIN: Warm and dry. Skin necrosis left lateral thigh NEURO: No focal neurological deficits. - Urinary Catheter Management Straight Cath placed during this visit: no Reason for continuing: Hourly intake/output Indwelling Urethral Catheter Cath placed during this visit: yes, but has since been removed by the nurse Reason for continuing: Decision to DC catheter Insertion date: 01/24/18 Insertion time: 11:30 Removal date: 01/24/18 Removal time: 12:50 Results - Labs CBC & Chem 7: 02/02/18 05:40 02/02/18 05:40 Laboratory Results - last 24 hr 02/02/18 02/02/18 02/02/18 13:34 18:54 20:31 POC Glucose 121 H 118 H 126 H 02/03/18 07:55 POC Glucose 122 H - Imaging ITS Impressions Femur CT 01/12/18 00:00 CONCLUSION: 1. Soft tissue defect in the anterior upper left thigh and the medial distal left thigh at the level of the knee. 2. Diffuse subcutaneous soft tissue edema. No drainable abscess identified. Aorta w/Runoff CTA 01/15/18 00:00 CONCLUSION: 1. Diffuse atherosclerotic disease with moderate distal aortic stenosis at the bifurcation. 2. Bilateral moderate common iliac artery stenosis, likely overestimated due to degree of calcified plaque. 3. Left femoral to above-knee popliteal artery bypass graft with critical stenosis of the proximal anastomosis and mild stenosis of the distal anastomosis. 4. Diffuse right SFA disease with tandem moderate stenoses in the proximal thigh and tandem severe stenoses in the distal thigh. Diffuse right popliteal artery disease. 5. Limited single vessel runoff on the right. The peroneal artery with reconstitution of the anterior tibial artery in the distal calf. 6. Limited two-vessel runoff on the left. Diffusely diseased posterior tibial and peroneal arteries. 7. Stable 10 mm nodule in the right lung base. Follow-up examination in 3-6 months is again recommended to document stability. 8. Stable additional ancillary findings, as above. Extremity Arterial Study 01/15/18 00:00 CONCLUSION: Findings of severe disease on the right side with nondiagnostic evaluation on the left. CT angiography of the abdominal aorta and lower extremities is recommended for further evaluation if clinically indicated. Head CT 01/16/18 00:00 CONCLUSION: 1. No acute findings in the brain. . Foot X-Ray 01/20/18 00:00 CONCLUSION: No acute findings. No evidence of bony destruction or new periosteal reaction. Purdy Line Insertion 01/26/18 00:00 CONCLUSION: Uncomplicated ultrasound and fluoroscopic guided Purdy catheter placement as above. - Procedures r AKa Assessment and Plan - Assessment (1) Cellulitis Code(s): L03.90 - Cellulitis, unspecified Status: Acute (2) ESRD (end stage renal disease) on dialysis Code(s): N18.6 - End stage renal disease; Z99.2 - Dependence on renal dialysis Status: Acute (3) HTN (hypertension) Code(s): I10 - Essential (primary) hypertension Status: Acute (4) DM (diabetes mellitus) Code(s): E11.9 - Type 2 diabetes mellitus without complications Status: Acute (5) Gangrene of right foot Code(s): I96 - Gangrene, not elsewhere classified Status: Acute - Plan 72 y/o WF admitted for BL LE pain secondary to infection/gangrene. 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 Continue dialysis per nephrology Nephrology following Constipation Chronic. Continue Metamucil Chronic pain Continue pain control. Hospital induced delirium/. Supportive care DVT Prophylaxis Heparin Right lung base nodule. Repeat CT scan in 3-6 months Discharge Planning: SNF or rehab when arranged (1) Cellulitis Qualifiers: Site of cellulitis: extremity Site of cellulitis of extremity: lower extremity Laterality: left Qualified Code(s): L03.116 - Cellulitis of left lower limb
--- NOTE | 2018-02-03 12:26 | P.PNNP ---
Subjective Interval history: Patient seen during her hemodialysis session today. No verbal complaints. Physical Exam Vital signs: Vital Signs 02/02/18 16:00 02/02/18 20:00 02/02/18 20:15 Temperature 97.2 F L 98.0 F Pulse Rate 59 L 55 L 59 L Respiratory Rate 18 17 Blood Pressure 123/56 L 126/60 Pulse Oximetry 92 L 96 02/03/18 00:05 02/03/18 01:39 02/03/18 04:40 Temperature 97.9 F 97.9 F Pulse Rate 58 L 60 85 Respiratory Rate 17 18 Blood Pressure 127/61 118/69 Pulse Oximetry 96 92 L 02/03/18 09:44 Temperature Pulse Rate Respiratory Rate Blood Pressure Pulse Oximetry 93 L Intake & Output 02/02/18 02/03/18 02/03/18 18:59 06:59 18:59 Intake Total 780 / 780 Output Total 100 / 100 Balance 780 / 780 -100 / -100 Weight 110.8 kg Intake: IV 200 / 200 Diflucan 200 mg Premix Bag 100 100 / 100 ML @ 100 mls/hr IV.SIG Q24H RICARDO Rx#:[id number] Merrem Inj 1,000 MG In NS Inj 100 / 100 100 ML @ 200 mls/hr IV.SIG Q24H RICARDO Rx#:[id number] Oral 580 / 580 Output: Emesis 100 / 100 Other: # Voids 0 Date of Last Bowel Movement 01/31/18 02/02/18 # Bowel Movements 0 Narrative: GENERAL: NAD, A&Ox3. Currently is receiving hemodialysis. CARDIOVASCULAR: Regular rate and rhythm without murmurs, gallops, or rubs. RESPIRATORY: Breath sounds equal bilaterally. No accessory muscle use. GASTROINTESTINAL: Abdomen soft, non-tender, nondistended. MUSCULOSKELETAL: No cyanosis, 1+ pitting edema dependent thighs.. Right AKA. SKIN: Warm and dry. Skin necrosis left lateral thigh NEURO: No focal neurological deficits. - Urinary Catheter Management Straight Cath placed during this visit: no Reason for continuing: Hourly intake/output Indwelling Urethral Catheter Cath placed during this visit: yes, but has since been removed by the nurse Reason for continuing: Decision to DC catheter Insertion date: 01/24/18 Insertion time: 11:30 Removal date: 01/24/18 Removal time: 12:50 Assessment and Plan - Assessment (1) ESRD (end stage renal disease) on dialysis Code(s): N18.6 - End stage renal disease; Z99.2 - Dependence on renal dialysis Status: Acute Plan: Continue MWF scheduleA hemodialysis. Laboratory studies as ordered. Prognosis remains guarded to poor. Gadolinium is contraindicated. Medication should be adjusted for the patient's end-stage renal disease when indicated. (2) Peripheral vascular disease of lower extremity with ulceration Code(s): I73.9 - Peripheral vascular disease, unspecified; L97.909 - Non- pressure chronic ulcer of unspecified part of unspecified lower leg with unspecified severity Status: Acute Plan: s/p right AKA 01/31 (3) Cellulitis Code(s): L03.90 - Cellulitis, unspecified Status: Acute Qualifiers: Site of cellulitis: extremity Site of cellulitis of extremity: lower extremity Laterality: left Qualified Code(s): L03.116 - Cellulitis of left lower limb Plan: Vascular surgery believes probability of calciphylaxis is very low regarding lesion on L lateral thigh and biopsy associated with significant risk as far as healing is concerned. As mentioned previously laboratory results did not appear to be consistent with significant probability for calciphylaxis and the patient does unfortunately have diffuse atherosclerotic disease which likely accounts for clinical findings. (4) DM (diabetes mellitus) Code(s): E11.9 - Type 2 diabetes mellitus without complications Status: Acute Plan: Mgmt per primary
[2018-02-03] MEDS: Psyllium Husk SF 3.4 GM in 5.8 GM Packet PO SCH (16:29)
--- NOTE | 2018-02-03 16:50 | P.PNID ---
Subjective Remarks: Patient notes pain all over. Just returned from dialysis. Not having pain in the right stump. No fever. Patient noted to not have vessel in the RLE that can be bypassed on attempts at revascularization 01/24/2018. Post right AKA on 01/31/2018. HISTORY OF PRESENT ILLNESS: This is a 72-year-old white female who is known to me from previous hospitalizations. The patient was last admitted for a dehisced wound at the left tibia from a vascular procedure at the end of November. She had Pseudomonas aeruginosa cultured from the leg and also Klebsiella pneumoniae. She was discharged on cefepime, which she was receiving at hemodialysis center. She developed redness of her right foot and it became progressively worse with increased erythema and purplish discoloration at the right fifth toe and at the base of the fifth toe as well. Antibiotics: Meropenem Daptomycin Diflucan Doxycycline. 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 Allergies/Adverse Reactions: Allergies amlodipine Allergy (Severe, Verified 12/22/17 22:56) Edema, Generalized adhesive tape Allergy (Unknown, Verified 12/22/17 22:56) Generalized Itching Redness Objective Vital Signs 02/02/18 20:00 02/02/18 20:15 02/03/18 00:05 Temperature 98.0 F 97.9 F Pulse Rate 55 L 59 L 58 L Respiratory Rate 17 17 Blood Pressure 126/60 127/61 Pulse Oximetry 96 96 02/03/18 01:39 02/03/18 04:40 02/03/18 08:00 Temperature 97.9 F 97.6 F Pulse Rate 60 85 58 L Respiratory Rate 18 19 Blood Pressure 118/69 127/59 L Pulse Oximetry 92 L 94 L 02/03/18 09:44 Temperature Pulse Rate Respiratory Rate Blood Pressure Pulse Oximetry 93 L Intake & Output 02/02/18 02/03/18 02/03/18 18:59 06:59 18:59 Intake Total 780 / 780 Output Total 3600 / 3600 Balance 780 / 780 -3600 / -3600 Weight 110.8 kg Intake: IV 200 / 200 Diflucan 200 mg Premix Bag 100 100 / 100 ML @ 100 mls/hr IV.SIG Q24H RICARDO Rx#:[id number] Merrem Inj 1,000 MG In NS Inj 100 / 100 100 ML @ 200 mls/hr IV.SIG Q24H RICARDO Rx#:[id number] Oral 580 / 580 Output: Emesis 100 / 100 Hemodialysis Amount 3500 / 3500 Other: # Voids 0 Date of Last Bowel Movement 01/31/18 02/02/18 # Bowel Movements 0 Lab - Hematology Results 02/02/18 05:40 WBC 12.6 H RBC 3.20 L Hgb 9.3 L Hct 29.3 L MCV 91.7 MCH 29.0 MCHC 31.6 L RDW 18.9 H Plt Count 208 MPV 7.8 Neut % (Auto) 72.6 H Lymph % (Auto) 11.3 Piatt % (Auto) 14.4 H Eos % (Auto) 0.7 Baso % (Auto) 1.0 Neut # (Auto) 9.1 H Lymph # (Auto) 1.4 Piatt # (Auto) 1.8 H Eos # (Auto) 0.1 Baso # (Auto) 0.1 WBC Differential . Differential Comment Auto diff final Lab - Chemistry Results 01/31/18 01/31/18 01/31/18 07:53 10:26 16:19 Sodium Potassium Chloride Carbon Dioxide Anion Gap BUN Creatinine Estimated GFR POC Glucose 134 H 134 H 132 H Random Glucose Calcium Phosphorus Total Bilirubin AST ALT Alkaline Phosphatase Total Protein Albumin 02/01/18 02/02/18 02/02/18 22:06 05:40 07:56 Sodium 139 Potassium 4.0 D Chloride 98 Carbon Dioxide 32.1 H Anion Gap 9 BUN 30 H Creatinine 3.36 H Estimated GFR 13 L POC Glucose 140 H 114 H Random Glucose 116 H Calcium 8.9 Phosphorus 4.9 Total Bilirubin 0.8 AST 11 L ALT Less than 6 L Alkaline Phosphatase 298 H Total Protein 5.4 L Albumin 2.1 L D 02/02/18 02/02/18 02/02/18 13:34 18:54 20:31 Sodium Potassium Chloride Carbon Dioxide Anion Gap BUN Creatinine Estimated GFR POC Glucose 121 H 118 H 126 H Random Glucose Calcium Phosphorus Total Bilirubin AST ALT Alkaline Phosphatase Total Protein Albumin 02/03/18 02/03/18 07:55 14:38 Sodium Potassium Chloride Carbon Dioxide Anion Gap BUN Creatinine Estimated GFR POC Glucose 122 H 99 Random Glucose Calcium Phosphorus Total Bilirubin AST ALT Alkaline Phosphatase Total Protein Albumin Imaging: ITS Impressions Femur CT 01/12/18 00:00 CONCLUSION: 1. Soft tissue defect in the anterior upper left thigh and the medial distal left thigh at the level of the knee. 2. Diffuse subcutaneous soft tissue edema. No drainable abscess identified. Aorta w/Runoff CTA 01/15/18 00:00 CONCLUSION: 1. Diffuse atherosclerotic disease with moderate distal aortic stenosis at the bifurcation. 2. Bilateral moderate common iliac artery stenosis, likely overestimated due to degree of calcified plaque. 3. Left femoral to above-knee popliteal artery bypass graft with critical stenosis of the proximal anastomosis and mild stenosis of the distal anastomosis. 4. Diffuse right SFA disease with tandem moderate stenoses in the proximal thigh and tandem severe stenoses in the distal thigh. Diffuse right popliteal artery disease. 5. Limited single vessel runoff on the right. The peroneal artery with reconstitution of the anterior tibial artery in the distal calf. 6. Limited two-vessel runoff on the left. Diffusely diseased posterior tibial and peroneal arteries. 7. Stable 10 mm nodule in the right lung base. Follow-up examination in 3-6 months is again recommended to document stability. 8. Stable additional ancillary findings, as above. Extremity Arterial Study 01/15/18 00:00 CONCLUSION: Findings of severe disease on the right side with nondiagnostic evaluation on the left. CT angiography of the abdominal aorta and lower extremities is recommended for further evaluation if clinically indicated. Head CT 01/16/18 00:00 CONCLUSION: 1. No acute findings in the brain. . Foot X-Ray 01/20/18 00:00 CONCLUSION: No acute findings. No evidence of bony destruction or new periosteal reaction. Purdy Line Insertion 01/26/18 00:00 CONCLUSION: Uncomplicated ultrasound and fluoroscopic guided Purdy catheter placement as above. Physical Exam: GENERAL: Awake and alert. HEENT: Head is atraumatic. Extraocular movements grossly intact. Pupils reactive to light. No icterus. No conjunctival erythema. Oropharynx mucosa moist. NECK: Supple without adenopathy. LUNGS: Clear to auscultation. HEART: Regular S1, S2, without murmurs, rubs or gallops. ABDOMEN: Bowel sounds present, obese, soft, nontender. EXTREMITIES: The left inner thigh wound has very clean beefy red granulation tissue. Little eschar at the lower edge. The left inner tibial dehisced incision is very clean and has good granulation. 2 tiny specks of necrosis at the edge. Left lateral thigh has redness and scab formation. Post R. BKA. SKIN: No diffuse rash. NEUROLOGIC: No gross focal finding. PSYCHIATRIC: calm, and cooperative. Assessment and Plan - Plan IMPRESION: 1. Severe peripheral vascular disease, now involving the right foot with gangrene at portion of the right fourth toe and the right fifth toe and base of the right fifth MTP. -Vascular disease not fixable with vascular procedure. Post right above-the- knee amputation 01/31/18. 2. Open wound of the left inner tibia which grew out Pseudomonas and Klebsiella, sensitive to cefepime in late November. Wound looks good. 3. Chronic open wound of the left inner groin/thigh which has had positive bacteria in the past and was treated with antibiotics and was doing well with dressing changes. Wound looks good. 4. Left lateral thigh ecchymosis/cellulitis. Stable. 5. Diabetes mellitus. 6. End-stage renal disease on hemodialysis RECOMMENDATIONS: 1. Continue daptomycin. 2. Continue Meropenem. 3. Continue Diflucan. 4. Monitor wounds and clinical response. I plan to continue antibiotics for another 4 weeks. D/W ROGELIO.
[2018-02-03] MEDS: Ezetimibe 10 MG Tablet PO SCH (17:02)
[2018-02-03] MEDS: DAPTOmycin Inj 600 MG in Sodium Chlor 0.9% Inj 100 ML IV.SIG SCH (17:29)
[2018-02-04] MEDS: Heparin - SQ 10,000 UNITS/ML Vial SQ SCH ×2 (00:37→12:05)
[2018-02-04] MEDS: Levothyroxine 125 MCG Tablet PO SCH (06:32)
[2018-02-04 07:34] LABS: Carbon Dioxide 30.9 meq/L (21.0-32.0); Magnesium 1.8 mg/dL (1.5-2.5); Potassium 3.8 meq/L (3.5-5.1)
--- NOTE | 2018-02-04 09:09 | P.PNVS ---
Subjective Post Op Day #: 4 Procedure: R AKA Subjective/Hospital Course: 72/F alert in NAD Pt denied pain Pt w/o complaints at the BS Wounds stable Removed R LE surgical dressing . Objective Vital Signs / I&O: Vital Signs 02/03/18 09:44 02/03/18 20:35 02/04/18 00:15 Temperature 98.0 F 97.7 F Pulse Rate 61 59 L Respiratory Rate 18 17 Blood Pressure 117/52 L 105/52 L Pulse Oximetry 93 L 96 95 02/04/18 04:39 Temperature 97.5 F L Pulse Rate 60 Respiratory Rate 18 Blood Pressure 114/53 L Pulse Oximetry 98 Intake & Output 02/03/18 02/04/18 02/04/18 18:59 06:59 18:59 Intake Total 780 / 780 Output Total 3600 / 3600 Balance -3600 / -3600 780 / 780 Weight 110.8 kg Intake: IV 300 / 300 Cubicin Inj 600 MG In NS Inj 100 / 100 100 ML @ 200 mls/hr IV.SIG Q48H RICARDO Rx#:[id number] Diflucan 200 mg Premix Bag 100 100 / 100 ML @ 100 mls/hr IV.SIG Q24H RICARDO Rx#:[id number] Merrem Inj 1,000 MG In NS Inj 100 / 100 100 ML @ 200 mls/hr IV.SIG Q24H RICARDO Rx#:[id number] Oral 480 / 480 Output: Emesis 100 / 100 Hemodialysis Amount 3500 / 3500 Other: Date of Last Bowel Movement 02/02/18 # Bowel Movements 1 Exam: Alert, speech clear R AKA incision intact, well approximated with jessika intact No erythema, drainage or swelling noted Laboratory Results - last 24 hr 02/03/18 02/03/18 02/03/18 14:38 16:32 21:46 Sodium Potassium Chloride Carbon Dioxide Anion Gap BUN Creatinine Estimated GFR POC Glucose 99 117 H 223 H Random Glucose Calcium Magnesium 02/04/18 02/04/18 06:30 07:56 Sodium 138 Potassium 3.8 Chloride 98 Carbon Dioxide 30.9 Anion Gap 9 BUN 30 H Creatinine 3.20 H Estimated GFR 14 L POC Glucose 146 H Random Glucose 125 H Calcium 8.0 L Magnesium 1.8 Assessment and Plan - Assessment (1) Peripheral vascular disease of lower extremity with ulceration Code(s): I73.9 - Peripheral vascular disease, unspecified; L97.909 - Non- pressure chronic ulcer of unspecified part of unspecified lower leg with unspecified severity Status: Acute - Plan 72/F s/p R AKA POD 4 Pt w/o pain, appears comfortable Pt w/o complaints Wounds stable Plan Removed post operative dressing- R AKA surgical dressing- Apply a dry sterile dressing daily Continue to keep R groin incision site dry and open to air- Apply sterile 4x4 to R groin incision site Continue PT Continue wound care- Recommend hyperbaric wound care therapy D/C planning- Tim Mariee NP [facility] [phone] Discharge Planning: D/C planning- Tim CEBALLOS
[2018-02-04] MEDS: Insulin NovoLOG Aspart Correctional Sugar Inj SQ SCH ×4 (09:18→22:36)
[2018-02-04] MEDS: Heparin Central Flush 100 UNIT/ML 5 ML Vial IV.FLUSH SCH (09:25)
[2018-02-04] MEDS: Carvedilol 6.25 MG Tablet PO SCH ×3 (09:25→21:10)
[2018-02-04] MEDS: Famotidine 20 MG Tablet PO SCH ×2 (09:28→21:05)
[2018-02-04] MEDS: Gabapentin 100 MG Capsule PO SCH ×2 (09:28→21:05)
[2018-02-04] MEDS: Insulin Detemir Inj 1,000 UNIT/10 ML Vial SQ SCH ×2 (09:30→22:41)
[2018-02-04] MEDS: Collagenase Oint 30 GM Tube TOPICAL SCH (09:30)
--- NOTE | 2018-02-04 13:16 | P.PN ---
Subjective Interval history: Follow-up lower extremity wound infection. Patient has no complaints denies pain seen with sister Physical Exam Vital signs: Vital Signs 02/03/18 20:35 02/04/18 00:15 02/04/18 04:39 Temperature 98.0 F 97.7 F 97.5 F L Pulse Rate 61 59 L 60 Respiratory Rate 18 17 18 Blood Pressure 117/52 L 105/52 L 114/53 L Pulse Oximetry 96 95 98 02/04/18 08:00 Temperature 97.4 F L Pulse Rate 62 Respiratory Rate 17 Blood Pressure 104/50 L Pulse Oximetry 94 L Intake & Output 02/03/18 02/04/18 02/04/18 18:59 06:59 18:59 Intake Total 780 / 780 Output Total 3600 / 3600 Balance -3600 / -3600 780 / 780 Weight 110.8 kg Intake: IV 300 / 300 Cubicin Inj 600 MG In NS Inj 100 / 100 100 ML @ 200 mls/hr IV.SIG Q48H [facility] Rx#:[id number] Diflucan 200 mg Premix Bag 100 100 / 100 ML @ 100 mls/hr IV.SIG Q24H [facility] Rx#:[id number] Merrem Inj 1,000 MG In NS Inj 100 / 100 100 ML @ 200 mls/hr IV.SIG Q24H [facility] Rx#:[id number] Oral 480 / 480 Output: Emesis 100 / 100 Hemodialysis Amount 3500 / 3500 Other: Date of Last Bowel Movement 02/02/18 02/04/18 # Bowel Movements 1 Narrative: GENERAL: NAD, A&Ox3. Currently is receiving hemodialysis. CARDIOVASCULAR: Regular rate and rhythm without murmurs, gallops, or rubs. RESPIRATORY: Breath sounds equal bilaterally. No accessory muscle use. GASTROINTESTINAL: Abdomen soft, non-tender, nondistended. MUSCULOSKELETAL: No cyanosis, Right AKA. SKIN: Warm and dry. Left inner thigh and leg wounds with good granulation with small areas of necrosis at the edges NEURO: No focal neurological deficits. - Urinary Catheter Management Straight Cath placed during this visit: no Reason for continuing: Hourly intake/output Indwelling Urethral Catheter Cath placed during this visit: yes, but has since been removed by the nurse Reason for continuing: Decision to DC catheter Insertion date: 01/24/18 Insertion time: 11:30 Removal date: 01/24/18 Removal time: 12:50 Results - Labs CBC & Chem 7: 02/02/18 05:40 02/04/18 06:30 Laboratory Results - last 24 hr 02/03/18 02/03/18 02/03/18 14:38 16:32 21:46 Sodium Potassium Chloride Carbon Dioxide Anion Gap BUN Creatinine Estimated GFR POC Glucose 99 117 H 223 H Random Glucose Calcium Magnesium 02/04/18 02/04/18 02/04/18 06:30 07:56 11:41 Sodium 138 Potassium 3.8 Chloride 98 Carbon Dioxide 30.9 Anion Gap 9 BUN 30 H Creatinine 3.20 H Estimated GFR 14 L POC Glucose 146 H 158 H Random Glucose 125 H Calcium 8.0 L Magnesium 1.8 - Procedures r AKa Assessment and Plan - Assessment (1) Cellulitis Code(s): L03.90 - Cellulitis, unspecified Status: Acute (2) ESRD (end stage renal disease) on dialysis Code(s): N18.6 - End stage renal disease; Z99.2 - Dependence on renal dialysis Status: Acute (3) HTN (hypertension) Code(s): I10 - Essential (primary) hypertension Status: Acute (4) DM (diabetes mellitus) Code(s): E11.9 - Type 2 diabetes mellitus without complications Status: Acute (5) Gangrene of right foot Code(s): I96 - Gangrene, not elsewhere classified Status: Acute - Plan 72 y/o WF admitted for BL LE pain secondary to infection/gangrene. 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 Open wound of the left inner tibia which grew out Pseudomonas and Klebsiella, sensitive to cefepime in late November. Chronic open wound of the left inner groin/thigh Left lateral thigh ecchymosis/cellulitis. Stable. Vascular surgeon following Podiatry following Continue statin Continue pain management counselled regarding narcotics Wound care nurse following Antibiotics in place: Meropenem, merrem fluconazole for 4 weeks per ID Wound care consult for hyperbaric oxygen treatment Hypertension Continue Coreg Monitor blood pressures Diabetes type I Continue insulin pump Follow blood sugars Insulin sliding scale Diabetic diet End-stage renal disease Continue dialysis Tuesday. Continue dialysis per nephrology Nephrology following Constipation Chronic. Continue Metamucil Chronic pain Continue pain control. Hospital induced delirium/. Supportive care Right lung base nodule. Repeat CT scan in 3-6 months DVT Prophylaxis Heparin Discharge Planning: SNF or rehab when arranged (1) Cellulitis Qualifiers: Site of cellulitis: extremity Site of cellulitis of extremity: lower extremity Laterality: left Qualified Code(s): L03.116 - Cellulitis of left lower limb
[2018-02-04] MEDS: Psyllium Husk SF 3.4 GM in 5.8 GM Packet PO SCH (17:32)
[2018-02-04] MEDS: Ezetimibe 10 MG Tablet PO SCH (17:48)
[2018-02-05] MEDS: Heparin - SQ 10,000 UNITS/ML Vial SQ SCH ×2 (00:35→12:04)
[2018-02-05] MEDS: Levothyroxine 125 MCG Tablet PO SCH (05:52)
[2018-02-05] MEDS: Insulin NovoLOG Aspart Correctional Sugar Inj SQ SCH ×4 (07:38→20:41)
[2018-02-05] MEDS: Famotidine 20 MG Tablet PO SCH ×2 (09:03→20:42)
[2018-02-05] MEDS: Carvedilol 6.25 MG Tablet PO SCH ×2 (09:04→20:41)
[2018-02-05] MEDS: Heparin Central Flush 100 UNIT/ML 5 ML Vial IV.FLUSH SCH (09:04)
[2018-02-05] MEDS: Gabapentin 100 MG Capsule PO SCH ×2 (09:04→20:41)
[2018-02-05] MEDS: Insulin Detemir Inj 1,000 UNIT/10 ML Vial SQ SCH ×2 (09:05→20:41)
[2018-02-05] MEDS: Collagenase Oint 30 GM Tube TOPICAL SCH (09:07)
[2018-02-05] MEDS ORDERED: Haloperidol Inj 5 MG/ML Ampul IM PRN (10:05)
--- NOTE | 2018-02-05 11:31 | P.PNPOD ---
Physical Exam Vital signs: Vital Signs 02/04/18 12:00 02/04/18 15:52 02/04/18 16:00 Temperature 97.1 F L 97.7 F Pulse Rate 61 62 Respiratory Rate 17 17 Blood Pressure 130/59 L 111/51 L Pulse Oximetry 98 98 94 L 02/04/18 20:00 02/05/18 00:00 02/05/18 08:00 Temperature 98.1 F 98.5 F 98.0 F Pulse Rate 61 62 106 H Respiratory Rate 20 20 17 Blood Pressure 116/56 L 119/58 L 140/65 Pulse Oximetry 97 97 97 Intake & Output 02/04/18 02/05/18 02/05/18 18:59 06:59 18:59 Intake Total 820 / 820 100 / 100 Balance 820 / 820 100 / 100 Intake: IV 100 / 100 100 / 100 Diflucan 200 mg Premix Bag 100 100 / 100 ML @ 100 mls/hr IV.SIG Q24H [facility] Rx#:[id number] Merrem Inj 1,000 MG In NS Inj 100 / 100 100 ML @ 200 mls/hr IV.SIG Q24H [facility] Rx#:[id number] Oral 720 / 720 Other: Date of Last Bowel Movement 02/04/18 Narrative: Left 5th toe without erythema/edema. Dry and stable Medications and Allergies Active Medications: Active Medications Acetaminophen (Tylenol) 650 mg PO UNSCH PRN PRN Reason: SEE LABEL COMMENTS Atorvastatin Calcium (Lipitor) 40 mg PO QPM [facility] Last Admin: 02/04/18 17:48 Dose: 40 mg Carvedilol (Coreg) 6.25 mg PO BID [facility] Last Admin: 02/05/18 09:04 Dose: 6.25 mg Cinacalcet (Sensipar) 30 mg PO DAILY [facility] Last Admin: 02/05/18 09:04 Dose: 30 mg Clonidine HCl (Catapres) 0.1 mg PO UNSCH PRN PRN Reason: SEE LABEL COMMENTS Collagenase (Santyl Oint) 1 applicatio TOPICAL DAILY [facility] Last Admin: 02/05/18 09:07 Dose: 1 applicatio Dextrose (D50w Vial) 50 ml IV.PUSH UNSCH PRN PRN Reason: PER HYPOGLYCEMIA PROTOCOL Diphenhydramine HCl (Benadryl) 25 mg PO UNSCH PRN PRN Reason: SEE LABEL COMMENTS Ezetimibe (Zetia) 10 mg PO QPM [facility] Last Admin: 02/04/18 17:48 Dose: 10 mg Epoetin Dio (Epogen Inj) 10,000 unit IV.PUSH UNSCH PRN PRN Reason: SEE LABEL COMMENTS Last Admin: 02/01/18 14:31 Dose: 10,000 unit Famotidine (Pepcid) 10 mg PO BID [facility] Last Admin: 02/05/18 09:03 Dose: 10 mg Fentanyl (Duragesic 25 Mcg Patch.72hr) 1 patch T-DERMAL Q72H [facility] Gabapentin (Neurontin) 100 mg PO BID [facility] Last Admin: 02/05/18 09:04 Dose: 100 mg Gelatin (Gelfoam 12 Mm/7 Mm Topical) 1 foam TOPICAL PRN PRN PRN Reason: help stop bleeding from site Last Admin: 01/27/18 19:10 Dose: 1 foam Gentamicin Sulfate (Gentamicin Inj) 20 mg OTHER WITH DIALYSIS PRN PRN Reason: Dwell Gentamycin Lock Last Admin: 01/30/18 13:24 Dose: 20 mg Glucagon (Glucagon Inj) 1 mg OTHER PRN PRN PRN Reason: for Hypoglycemia Protocol Haloperidol Lactate (Haldol Inj) 1 mg IM Q6H PRN PRN Reason: AGITATION Stop: 02/06/18 10:04 Heparin Sodium (Porcine) (Heparin Inj) 1,000 units OTHER WITH DIALYSIS PRN PRN Reason: Dwell Heparin to Fill Catheter Last Admin: 01/30/18 13:25 Dose: 1,000 units Heparin Sodium (Porcine) (Heparin Inj) 8,000 units OTHER WITH DIALYSIS PRN PRN Reason: for machine prime Heparin Sodium (Porcine) (Heparin Inj) 5,000 units SQ Q12H [facility] Last Admin: 02/05/18 00:35 Dose: 5,000 units Heparin Sodium (Porcine) (Heparin Central Flush) 0 unit IV.FLUSH DAILY [facility] Last Admin: 02/05/18 09:04 Dose: 200 unit Heparin Sodium (Porcine) (Heparin Central Flush) 0 unit IV.FLUSH PRN PRN PRN Reason: Flush each lumen Daptomycin 600 mg/ Sodium (Chloride) 100 mls @ 200 mls/hr IV.SIG Q48H [facility] Last Infusion: 02/03/18 20:00 Dose: Infused Fluconazole (Diflucan 200 Mg Premix Bag) 100 mls @ 100 mls/hr IV.SIG Q24H [facility] Last Infusion: 02/05/18 05:42 Dose: Infused Sodium Chloride (Ns Inj) 1,000 mls @ 0 mls/hr OTHER .Q0M PRN PRN Reason: for prime and rinse back Last Infusion: 01/23/18 20:00 Dose: Infused Sodium Chloride (Ns Inj) 1,000 mls @ 200 mls/hr OTHER .Q5H PRN PRN Reason: for dialyzer flush PRN Sodium Chloride (Ns Inj) 1,000 mls @ 0 mls/hr IV.CONT .Q0M PRN PRN Reason: hypotension / volume replace Meropenem 1,000 mg/ Sodium (Chloride) 100 mls @ 200 mls/hr IV.SIG Q24H [facility] Last Infusion: 02/04/18 18:34 Dose: Infused Insulin Aspart (Novolog Insulin Correctional Sugar Inj) 0 unit SQ ACHS [facility]; Protocol Last Admin: 02/05/18 07:38 Dose: Not Given Insulin Detemir (Levemir Inj) 2 unit SQ BID [facility] Last Admin: 02/05/18 09:05 Dose: 2 unit Lactulose (Lactulose Liq) 30 ml PO BID PRN PRN Reason: CONSTIPATION Levothyroxine Sodium (Synthroid) 125 mcg PO DAILY@0600 [facility] Last Admin: 02/05/18 05:52 Dose: 125 mcg Mannitol (Mannitol Inj) 12.5 gm IV.PUSH UNSCH PRN PRN Reason: hypotension / volume replace Morphine Sulfate (Morphine Inj) 2 mg IV.PUSH Q3H PRN PRN Reason: BREAKTHROUGH PAIN Last Admin: 02/02/18 00:35 Dose: 2 mg Naloxone HCl (Narcan Inj) 0.4 mg IV.PUSH Q2M PRN PRN Reason: persistant lethargy Nitroglycerin (Nitrostat Sl) 0.4 mg SL Q5M PRN PRN Reason: CHEST PAIN Ondansetron HCl (Zofran Inj) 4 mg IV.PUSH Q6H PRN PRN Reason: NAUSEA OR VOMITING Oxycodone HCl (Roxicodone) 10 mg PO Q4H PRN PRN Reason: PAIN SCALE 1 TO 10 Last Admin: 02/05/18 09:02 Dose: 10 mg Patch Removal (Remove Old Patch) 1 each T-DERMAL Q3D [facility] Last Admin: 02/02/18 18:49 Dose: Not Given Psyllium Hydrophilic Mucilloid (Metamucil Fiber Sf Pkt) 1 pack PO DAILY@1700 [facility] Last Admin: 02/04/18 17:32 Dose: Not Given Sevelamer Carbonate (Renvela) 800 mg PO QID [facility] Last Admin: 02/05/18 09:04 Dose: 800 mg Sodium Chloride (Ns Flush) 5 ml IV.FLUSH PRN PRN PRN Reason: flush each lumen during HD Last Admin: 02/05/18 09:07 Dose: 5 ml Sodium Chloride (Ns Flush) 0 ml IV.FLUSH DAILY [facility] Last Admin: 02/05/18 09:06 Dose: 2 ml Sodium Chloride (Ns Flush) 2 ml IV.FLUSH BID [facility] Last Admin: 02/05/18 09:08 Dose: 2 ml Sodium Chloride (Ns Flush) 2 ml IV.FLUSH PRN PRN PRN Reason: FLUSH AFTER USING IV ACCESS Last Admin: 02/03/18 09:52 Dose: 2 ml Allergies Allergy/AdvReac Type Severity Reaction Status Date / Time amlodipine Allergy Severe Edema, Verified 12/22/17 22:56 Generalized adhesive tape Allergy Unknown Generalized Verified 12/22/17 22:56 Itching Home Medications Medication Instructions Recorded Confirmed Type carvedilol [Coreg] 6.25 mg PO BID 12/22/17 01/12/18 History cinacalcet [Sensipar] 30 mg PO DAILY 12/22/17 01/12/18 History clopidogrel [Plavix] 75 mg PO DAILY 12/22/17 01/12/18 History ezetimibe-simvastatin [Vytorin 1 tab PO QPM 12/22/17 01/12/18 History 10-80] gabapentin 100 mg PO BID 12/22/17 01/12/18 History insulin pump-infus. set-meter 12/22/17 01/16/18 History levothyroxine 0.125 mg PO DAILY 12/22/17 01/12/18 History ranitidine HCl [Zantac] 150 mg PO BID 12/22/17 01/12/18 History sevelamer carbonate [Renvela] 800 mg PO QID 12/22/17 01/12/18 History clindamycin HCl 300 mg PO TID 01/12/18 01/12/18 History fentanyl 1 patch TRANSDERMAL Q72H 01/12/18 01/12/18 History oxycodone 10 mg PO Q4H PRN 01/12/18 01/12/18 History Results - Labs CBC & Chem 7: 02/02/18 05:40 02/04/18 06:30 Laboratory Results - last 24 hr 02/04/18 02/04/18 02/04/18 11:41 16:53 22:35 POC Glucose 158 H 173 H 151 H 02/05/18 07:21 POC Glucose 131 H - Procedures r AKa Assessment and Plan - Assessment (1) Osteomyelitis of left foot Code(s): M86.9 - Osteomyelitis, unspecified Status: Acute Plan: Bone exposed and amputation of 5th if it becomes acute. Will follow weekly (2) Gangrene of right foot Code(s): I96 - Gangrene, not elsewhere classified Status: Acute Plan: s/p Right AKA
[2018-02-05 11:52] LABS: Baso # (Auto) 0.1 th/mm3 (0.0-0.2); Baso % (Auto) 0.8 % (0.0-2.0); Eos # (Auto) 0.3 th/mm3 (0.0-0.4); Eos % (Auto) 2.1 % (0.0-4.0); Hematocrit 31.2 % (35.0-46.0); Lymph # (Auto) 1.8 th/mm3 (1.0-4.8); Lymph % (Auto) 14.5 % (9.0-44.0); Mean Corpuscular Hemoglobin 28.7 pg (27.0-34.0); Mean Corpuscular Volume 89.5 fL (80.0-100.0); Mean Platelet Volume 8.1 fL (7.0-11.0); Mono # (Auto) 1.6 th/mm3 (0.0-0.9); Neut # (Auto) 8.8 th/mm3 (1.8-7.7); Neut % (Auto) 69.6 % (16.0-70.0); Platelet Count 251 th/mm3 (150-450); Red Blood Count 3.49 mil/mm3 (4.00-5.30); Red Cell Distribution Width 18.6 % (11.6-17.2); White Blood Count 12.6 th/mm3 (4.0-11.0)
[2018-02-05 12:04] LABS: Albumin 1.7 g/dL (3.4-5.0); Anion Gap 9 meq/L (5-15); Aspartate Aminotransferase 10 U/L (15-37); Blood Urea Nitrogen 40 mg/dL (7-18); Calcium 7.9 mg/dL (8.5-10.1); Carbon Dioxide 30.7 meq/L (21.0-32.0); Chloride 96 meq/L (98-107); Glomerular Filtration Rate 11 mL/min (>89); Glucose,Random 103 mg/dL (74-106); Magnesium 1.8 mg/dL (1.5-2.5); Potassium 4.2 meq/L (3.5-5.1); Sodium 136 meq/L (136-145)
[2018-02-05 12:08] LABS: Alkaline Phosphatase 336 U/L (45-117); Total Protein 5.2 g/dL (6.4-8.2)
--- NOTE | 2018-02-05 12:23 | P.PN ---
Subjective Interval history: Follow-up lower extremity wound infection. Patient agitated this morning secondary to urinary retention. Moss catheter has been inserted Physical Exam Vital signs: Vital Signs 02/04/18 15:52 02/04/18 16:00 02/04/18 20:00 Temperature 97.7 F 98.1 F Pulse Rate 62 61 Respiratory Rate 17 20 Blood Pressure 111/51 L 116/56 L Pulse Oximetry 98 94 L 97 02/05/18 00:00 02/05/18 08:00 Temperature 98.5 F 98.0 F Pulse Rate 62 106 H Respiratory Rate 20 17 Blood Pressure 119/58 L 140/65 Pulse Oximetry 97 97 Intake & Output 02/04/18 02/05/18 02/05/18 18:59 06:59 18:59 Intake Total 820 / 820 100 / 100 Balance 820 / 820 100 / 100 Intake: IV 100 / 100 100 / 100 Diflucan 200 mg Premix Bag 100 100 / 100 ML @ 100 mls/hr IV.SIG Q24H [facility] Rx#:[id number] Merrem Inj 1,000 MG In NS Inj 100 / 100 100 ML @ 200 mls/hr IV.SIG Q24H [facility] Rx#:[id number] Oral 720 / 720 Other: Date of Last Bowel Movement 02/04/18 02/05/18 Narrative: GENERAL: NAD, A&Ox3. Currently is receiving hemodialysis. CARDIOVASCULAR: Regular rate and rhythm without murmurs, gallops, or rubs. RESPIRATORY: Breath sounds equal bilaterally. No accessory muscle use. GASTROINTESTINAL: Abdomen soft, non-tender, nondistended. MUSCULOSKELETAL: No cyanosis, Right AKA. SKIN: Warm and dry. Left inner thigh and leg wounds with good granulation with small areas of necrosis at the edges NEURO: No focal neurological deficits. - Urinary Catheter Management Straight Cath placed during this visit: no Reason for continuing: Not indwelling catheter Indwelling Urethral Catheter Cath placed during this visit: yes, but has since been removed by the nurse Reason for continuing: Acute urinary retention Insertion date: 02/05/18 Insertion time: 11:00 Removal date: 01/24/18 Removal time: 12:50 Results - Labs CBC & Chem 7: 02/05/18 11:10 02/05/18 11:10 Laboratory Results - last 24 hr 02/04/18 02/04/18 02/05/18 16:53 22:35 07:21 WBC RBC Hgb Hct MCV MCH MCHC RDW Plt Count MPV Neut % (Auto) Lymph % (Auto) Park % (Auto) Eos % (Auto) Baso % (Auto) Neut # (Auto) Lymph # (Auto) Park # (Auto) Eos # (Auto) Baso # (Auto) WBC Differential Differential Comment Sodium Potassium Chloride Carbon Dioxide Anion Gap BUN Creatinine Estimated GFR POC Glucose 173 H 151 H 131 H Random Glucose Calcium Magnesium Total Bilirubin AST ALT Alkaline Phosphatase Total Protein Albumin 02/05/18 02/05/18 02/05/18 11:10 11:10 11:35 WBC 12.6 H RBC 3.49 L Hgb 10.0 L Hct 31.2 L MCV 89.5 MCH 28.7 MCHC 32.0 RDW 18.6 H Plt Count 251 MPV 8.1 Neut % (Auto) 69.6 Lymph % (Auto) 14.5 Park % (Auto) 13.0 H Eos % (Auto) 2.1 Baso % (Auto) 0.8 Neut # (Auto) 8.8 H Lymph # (Auto) 1.8 Park # (Auto) 1.6 H Eos # (Auto) 0.3 Baso # (Auto) 0.1 WBC Differential . Differential Comment Auto diff final Sodium 136 Potassium 4.2 Chloride 96 L Carbon Dioxide 30.7 Anion Gap 9 BUN 40 H Creatinine 4.01 H Estimated GFR 11 L POC Glucose 115 H Random Glucose 103 Calcium 7.9 L Magnesium 1.8 Total Bilirubin 0.8 AST 10 L ALT Less than 6 L Alkaline Phosphatase 336 H Total Protein 5.2 L Albumin 1.7 L - Procedures r AKa Assessment and Plan - Assessment (1) Cellulitis Code(s): L03.90 - Cellulitis, unspecified Status: Acute (2) ESRD (end stage renal disease) on dialysis Code(s): N18.6 - End stage renal disease; Z99.2 - Dependence on renal dialysis Status: Acute (3) HTN (hypertension) Code(s): I10 - Essential (primary) hypertension Status: Acute (4) DM (diabetes mellitus) Code(s): E11.9 - Type 2 diabetes mellitus without complications Status: Acute (5) Gangrene of right foot Code(s): I96 - Gangrene, not elsewhere classified Status: Acute - Plan 72 y/o WF admitted for BL LE pain secondary to infection/gangrene. Severe peripheral vascular disease Post right [id number] amputation 01/31/18. Open wound of the left inner tibia which grew out Pseudomonas and Klebsiella, sensitive to cefepime in late November. Chronic open wound of the left inner groin/thigh Left lateral thigh ecchymosis/cellulitis. Stable. Vascular surgeon following Podiatry following Continue statin Continue pain management counselled regarding narcotics Wound care nurse following Antibiotics in place: Meropenem, daptomycin and fluconazole for 4 weeks per ID Wound care consult for hyperbaric oxygen treatment Hypertension Continue Coreg Monitor blood pressures Diabetes type I Continue insulin pump Follow blood sugars Insulin sliding scale Diabetic diet End-stage renal disease Continue dialysis Tuesday. Continue dialysis per nephrology Nephrology following Constipation Chronic. Continue Metamucil Chronic pain Continue pain control. Hospital induced delirium/. Supportive care Right lung base nodule. Repeat CT scan in 3-6 months Urinary retention which could be multifactorial from immobilization, constipation and possible UTI. Urinalysis has been ordered. DVT Prophylaxis Heparin Discharge Planning: SNF or rehab when arranged (1) Cellulitis Qualifiers: Site of cellulitis: extremity Site of cellulitis of extremity: lower extremity Laterality: left Qualified Code(s): L03.116 - Cellulitis of left lower limb
[2018-02-05 12:58] LABS: Amorphous Sediment,Urine Few /hpf; Bacteria,Urine Occasional /hpf; Bilirubin,Urine Negative (Negative); Clarity,Urine Hazy (Clear); Glucose,Urine (UA) 50 mg/dL (Negative); Leukocyte Esterase,Urine Moderate (Negative); Nitrite,Urine Negative (Negative); Specific Gravity,Urine 1.019 (1.002-1.035); Squamous Epithelial Cell,Urine <1 /hpf (0-5)
[2018-02-05 12:59] LABS: Color,Urine Brown (Yellw/Straw)
[2018-02-05] MEDS: Psyllium Husk SF 3.4 GM in 5.8 GM Packet PO SCH (16:00)
[2018-02-05] MEDS: Ezetimibe 10 MG Tablet PO SCH (17:11)
[2018-02-05] MEDS: DAPTOmycin Inj 600 MG in Sodium Chlor 0.9% Inj 100 ML IV.SIG SCH (17:11)
--- NOTE | 2018-02-05 18:13 | MB ---
cc: Maricarmen Vega MD DATE: 02/05/2018 REFERRING PHYSICIAN: The patient is being seen at the request of Chetan Sosa MD. REASON FOR CONSULTATION: To review the possibility of hyperbaric oxygen treatment. HISTORY: The patient is a 72-year-old female with a longstanding history of vascular disease, operations and open wounds. The patient was admitted on 01/12/2018. Since that time, the patient, who is on chronic dialysis, has had vascular procedures as well as recently an amputation. Family indicates that the patient's mental status has been declining and she is quite confused. They also indicate that they are her health proxy. They note that it is difficult to transport her from the bed even into a wheelchair. She has not been able to get into a wheelchair. There are also times that she is confused. In addition, they do not want to progress to hyperbaric oxygen treatment, which would be performed as an outpatient. After much discussion and reviewing the chart, I agree with them that the patient is not a candidate for hyperbaric oxygen treatment. Maricarmen Vega MD LHB/rw , 03:57 PM , 04:02 PM
[2018-02-06] MEDS: Heparin - SQ 10,000 UNITS/ML Vial SQ SCH ×2 (00:13→11:20)
[2018-02-06] MEDS: Levothyroxine 125 MCG Tablet PO SCH (05:30)
[2018-02-06] MEDS: Famotidine 20 MG Tablet PO SCH ×2 (09:13→21:08)
[2018-02-06] MEDS: Gabapentin 100 MG Capsule PO SCH ×2 (09:13→21:08)
[2018-02-06] MEDS: Carvedilol 6.25 MG Tablet PO SCH ×2 (09:13→21:09)
[2018-02-06] MEDS: Heparin Central Flush 100 UNIT/ML 5 ML Vial IV.FLUSH SCH (09:13)
[2018-02-06] MEDS: Insulin NovoLOG Aspart Correctional Sugar Inj SQ SCH ×4 (09:13→21:10)
[2018-02-06] MEDS: Insulin Detemir Inj 1,000 UNIT/10 ML Vial SQ SCH ×2 (09:13→21:09)
[2018-02-06] MEDS: Collagenase Oint 30 GM Tube TOPICAL SCH (09:14)
--- NOTE | 2018-02-06 10:07 | IR ---
EXAM DATE: 01/23/2018 10:49 AM EDT AGE/SEX: 72 years / Female INDICATIONS: Patient with right AV fistula in need of evaluation. CLINICAL DATA: This is the patient's initial encounter. Patient reports that signs and symptoms have been present for 1 week and indicates a pain score of 6/10. MEDICAL/SURGICAL HISTORY: Hypercholesterolemia. Hypertension. Diabetes mellitus type II. ESR D on dialysis, Fempop thrombosis of left lower extremity Appendectomy. Cholecystectomy. Heart bypas s surgery, Right AV fistula, Insulin pump COMPARISON: No prior exams available for comparison. FLUORO TIME (min): 1.6 IMAGE SERIES: 9 ACCESS SITE: Right AV fistula SEDATION TIME (min): 30 CONTRAST (cc): 60cc Visipaque (iodixanol) MEDICATION(S): 1.5mg midazolam (Versed) IV 75mcg fentanyl (Sublimaze) IV DEVICE(S): Right AV fistula Syvek pad PROCEDURE: 1. Ultrasound guided puncture of the arterial limb of the fistula. 2. Evaluation of dialysis graft. 3. Upper extremity venogram 4. Superior venacavogram. 5. Conscious sedation with continuous EKG and oximetry monitoring. The risks, benefits and alternatives to the procedure were explained and verbal and written consent w as obtained. The site was prepped in sterile fashion. Full sterile technique was used, including ca p, mask, sterile gloves and gown and a large sterile sheet. Hand hygiene and 2% chlorhexidine and/or betadine/alcohol prep was utilized per protocol for cutaneous antisepsis. Sterile gel and sterile p robe cover were utilized for ultrasound guidance. The skin and subcutaneous tissues were infiltrated with local anesthetic solution. With ultrasound and fluoroscopic guidance the arterial limb of the fistula was punctured directed tow margaret the venous anastomosis. Positive contrast was injected to evaluate the fistula and outflow of th e upper extremity and superior venacava. The arterial inflow was evaluated and is widely patent. There is dilation of proximal outflow vein wi th an area of mild narrowing in its mid aspect. Distally, there is venous outflow predominantly via t he brachial vein however there is significant outflow from the cephalic and basilic venous system as well. Centrally, the subclavian and SVC are widely patent. The patient tolerated the procedure well and there were no complications. Conscious sedation was per formed with the prescribed dosages and duration as above in the presence of an independent trained ra diology nurse to assist in the monitoring of the patient. EKG and oximetry remained stable throughou t the procedure. CONCLUSION: 1. Uncomplicated evaluation of the fistula as above. 2. The arterial inflow, the proximal outflow from the fistula in the venous outflow centrally all ap pear adequate. There are some areas of mild narrowing as described above. Electronically signed by: Satish Sanchez MD 02/06/2018 10:05 AM EDT
--- NOTE | 2018-02-06 11:03 | P.PNVS ---
Subjective Post Op Day #: 6 Procedure: R AKA Subjective/Hospital Course: 72/F alert in NAD, Seen in HD Pt denied pain Pt w/o complaints Wounds stable . Objective Vital Signs / I&O: Vital Signs 02/05/18 16:00 02/05/18 20:00 02/06/18 00:00 Temperature 97.8 F 97.9 F 98.3 F Pulse Rate 58 L 58 L 57 L Respiratory Rate 18 20 20 Blood Pressure 119/58 L 104/50 L 105/56 L Pulse Oximetry 95 96 98 02/06/18 04:00 02/06/18 08:00 Temperature 98.6 F 97.4 F L Pulse Rate 54 L 62 Respiratory Rate 20 18 Blood Pressure 123/58 L 127/63 Pulse Oximetry 98 98 Intake & Output 02/05/18 02/06/18 02/06/18 18:59 06:59 18:59 Intake Total 580 / 580 440 / 440 Output Total 900 / 900 100 / 100 Balance -320 / -320 340 / 340 Weight 113.4 kg Intake: IV 100 / 100 200 / 200 Cubicin Inj 600 MG In NS Inj 100 / 100 100 ML @ 200 mls/hr IV.SIG Q48H RICARDO Rx#:[id number] Diflucan 200 mg Premix Bag 100 100 / 100 ML @ 100 mls/hr IV.SIG Q24H RICARDO Rx#:[id number] Merrem Inj 1,000 MG In NS Inj 100 / 100 100 ML @ 200 mls/hr IV.SIG Q24H RICARDO Rx#:[id number] Oral 480 / 480 240 / 240 Output: Urine 900 / 900 100 / 100 Other: Date of Last Bowel Movement 02/05/18 Exam: L hip wound with narcotic tissue present and erythema periwound R AKA incision intact w/o S/R/D/O- jessika intact R groin incision dry and intact w/o S/O- Redness noted at the incision line Laboratory Results - last 24 hr 02/05/18 02/05/18 02/05/18 10:45 11:10 11:10 WBC 12.6 H RBC 3.49 L Hgb 10.0 L Hct 31.2 L MCV 89.5 MCH 28.7 MCHC 32.0 RDW 18.6 H Plt Count 251 MPV 8.1 Neut % (Auto) 69.6 Lymph % (Auto) 14.5 [place] % (Auto) 13.0 H Eos % (Auto) 2.1 Baso % (Auto) 0.8 Neut # (Auto) 8.8 H Lymph # (Auto) 1.8 [place] # (Auto) 1.6 H Eos # (Auto) 0.3 Baso # (Auto) 0.1 WBC Differential . Differential Comment Auto diff final Sodium 136 Potassium 4.2 Chloride 96 L Carbon Dioxide 30.7 Anion Gap 9 BUN 40 H Creatinine 4.01 H Estimated GFR 11 L POC Glucose Random Glucose 103 Calcium 7.9 L Magnesium 1.8 Total Bilirubin 0.8 AST 10 L ALT Less than 6 L Alkaline Phosphatase 336 H Total Protein 5.2 L Albumin 1.7 L Urine Color Brown H Urine Clarity Hazy H Urine pH 5.0 Ur Specific [place] 1.019 Urine Protein 100 H Urine Glucose (UA) 50 Urine Ketones Trace H Urine Occult Blood Small H Urine Nitrate Negative Urine Bilirubin Negative Urine Urobilinogen 2.0 H Ur Leukocyte Esterase Moderate H Urine RBC Less than 1 Urine WBC 44 H Urine WBC Clumps Moderate H Ur Squamous Epith Cells <1 Amorphous Sediment Few H Urine Bacteria Occasional H Micro UA Comment Culture indicated Ur Microscopic Review Not Reportable Urine Culture Comments Culture indicated 02/05/18 02/05/18 02/05/18 11:35 16:30 20:32 WBC RBC Hgb Hct MCV MCH MCHC RDW Plt Count MPV Neut % (Auto) Lymph % (Auto) [place] % (Auto) Eos % (Auto) Baso % (Auto) Neut # (Auto) Lymph # (Auto) [place] # (Auto) Eos # (Auto) Baso # (Auto) WBC Differential Differential Comment Sodium Potassium Chloride Carbon Dioxide Anion Gap BUN Creatinine Estimated GFR POC Glucose 115 H 112 H 191 H Random Glucose Calcium Magnesium Total Bilirubin AST ALT Alkaline Phosphatase Total Protein Albumin Urine Color Urine Clarity Urine pH Ur Specific [place] Urine Protein Urine Glucose (UA) Urine Ketones Urine Occult Blood Urine Nitrate Urine Bilirubin Urine Urobilinogen Ur Leukocyte Esterase Urine RBC Urine WBC Urine WBC Clumps Ur Squamous Epith Cells Amorphous Sediment Urine Bacteria Micro UA Comment Ur Microscopic Review Urine Culture Comments 02/06/18 07:28 WBC RBC Hgb Hct MCV MCH MCHC RDW Plt Count MPV Neut % (Auto) Lymph % (Auto) [place] % (Auto) Eos % (Auto) Baso % (Auto) Neut # (Auto) Lymph # (Auto) [place] # (Auto) Eos # (Auto) Baso # (Auto) WBC Differential Differential Comment Sodium Potassium Chloride Carbon Dioxide Anion Gap BUN Creatinine Estimated GFR POC Glucose 94 Random Glucose Calcium Magnesium Total Bilirubin AST ALT Alkaline Phosphatase Total Protein Albumin Urine Color Urine Clarity Urine pH Ur Specific [place] Urine Protein Urine Glucose (UA) Urine Ketones Urine Occult Blood Urine Nitrate Urine Bilirubin Urine Urobilinogen Ur Leukocyte Esterase Urine RBC Urine WBC Urine WBC Clumps Ur Squamous Epith Cells Amorphous Sediment Urine Bacteria Micro UA Comment Ur Microscopic Review Urine Culture Comments Assessment and Plan - Assessment (1) Peripheral vascular disease of lower extremity with ulceration Code(s): I73.9 - Peripheral vascular disease, unspecified; L97.909 - Non- pressure chronic ulcer of unspecified part of unspecified lower leg with unspecified severity Status: Acute - Plan 72/F s/p R AKA POD 6 Pt w/o pain, appears comfortable Pt w/o complaints Wounds stable Plan Continue to keep R groin incision site dry and open to air- Apply sterile 4x4 to R groin incision site Continue PT Continue wound care Dorota Mariee NP [facility] [phone] Discharge Planning: D/C planning- [facility] vs SNF
--- NOTE | 2018-02-06 11:19 | P.PNNP ---
Subjective Interval history: Patient was seen during her dialysis session today. Ovid appears to be working well. Patient still somewhat lethargic secondary to narcotics responding to questions appropriately.. Physical Exam Vital signs: Vital Signs 02/05/18 16:00 02/05/18 20:00 02/06/18 00:00 Temperature 97.8 F 97.9 F 98.3 F Pulse Rate 58 L 58 L 57 L Respiratory Rate 18 20 20 Blood Pressure 119/58 L 104/50 L 105/56 L Pulse Oximetry 95 96 98 02/06/18 04:00 02/06/18 08:00 Temperature 98.6 F 97.4 F L Pulse Rate 54 L 62 Respiratory Rate 20 18 Blood Pressure 123/58 L 127/63 Pulse Oximetry 98 98 Intake & Output 02/05/18 02/06/18 02/06/18 18:59 06:59 18:59 Intake Total 580 / 580 440 / 440 Output Total 900 / 900 100 / 100 Balance -320 / -320 340 / 340 Weight 113.4 kg Intake: IV 100 / 100 200 / 200 Cubicin Inj 600 MG In NS Inj 100 / 100 100 ML @ 200 mls/hr IV.SIG Q48H RICARDO Rx#:[id number] Diflucan 200 mg Premix Bag 100 100 / 100 ML @ 100 mls/hr IV.SIG Q24H RICARDO Rx#:[id number] Merrem Inj 1,000 MG In NS Inj 100 / 100 100 ML @ 200 mls/hr IV.SIG Q24H RICARDO Rx#:[id number] Oral 480 / 480 240 / 240 Output: Urine 900 / 900 100 / 100 Other: Date of Last Bowel Movement 02/05/18 Narrative: GENERAL: NAD, A&Ox3. Currently is receiving hemodialysis. CARDIOVASCULAR: Regular rate and rhythm without murmurs, gallops, or rubs. RESPIRATORY: Breath sounds equal bilaterally. No accessory muscle use. GASTROINTESTINAL: Abdomen soft, non-tender, nondistended. MUSCULOSKELETAL: No cyanosis, status post right AKA. SKIN: Warm and dry. Left inner thigh and leg wounds with good granulation with small areas of necrosis at the edges - Urinary Catheter Management Straight Cath placed during this visit: no Reason for continuing: Acute urinary retention Indwelling Urethral Catheter Cath placed during this visit: yes, but has since been removed by the nurse Reason for continuing: Acute urinary retention Insertion date: 02/05/18 Insertion time: 11:00 Removal date: 01/24/18 Removal time: 12:50 Assessment and Plan - Assessment (1) ESRD (end stage renal disease) on dialysis Code(s): N18.6 - End stage renal disease; Z99.2 - Dependence on renal dialysis Status: Acute Plan: Continue MWF scheduleA hemodialysis. The patient will likely have a difficult rehabilitation. Prognosis remains guarded to poor. Gadolinium is contraindicated. Medication should be adjusted for the patient's end-stage renal disease when indicated. (2) Peripheral vascular disease of lower extremity with ulceration Code(s): I73.9 - Peripheral vascular disease, unspecified; L97.909 - Non- pressure chronic ulcer of unspecified part of unspecified lower leg with unspecified severity Status: Acute Plan: s/p right AKA 01/31 (3) DM (diabetes mellitus) Code(s): E11.9 - Type 2 diabetes mellitus without complications Status: Acute Plan: Mgmt per primary
--- NOTE | 2018-02-06 12:25 | P.PN ---
Subjective Interval history: Follow-up lower extremity wound infection. States he is fine today seen in hemodialysis. She is oriented 2. Discussed with case management, she has been declined by [facility]. [facility] can take her if she is not on daptomycin will update infectious disease. She is not a candidate for hyperbaric oxygen therapy per wound care. Moss catheter inserted yesterday secondary to urinary retention. Patient and aware risk of infection Physical Exam Vital signs: Vital Signs 02/05/18 16:00 02/05/18 20:00 02/06/18 00:00 Temperature 97.8 F 97.9 F 98.3 F Pulse Rate 58 L 58 L 57 L Respiratory Rate 18 20 20 Blood Pressure 119/58 L 104/50 L 105/56 L Pulse Oximetry 95 96 98 02/06/18 04:00 02/06/18 08:00 Temperature 98.6 F 97.4 F L Pulse Rate 54 L 62 Respiratory Rate 20 18 Blood Pressure 123/58 L 127/63 Pulse Oximetry 98 98 Intake & Output 02/05/18 02/06/18 02/06/18 18:59 06:59 18:59 Intake Total 580 / 580 440 / 440 Output Total 900 / 900 100 / 100 Balance -320 / -320 340 / 340 Weight 113.4 kg Intake: IV 100 / 100 200 / 200 Cubicin Inj 600 MG In NS Inj 100 / 100 100 ML @ 200 mls/hr IV.SIG Q48H RICARDO Rx#:[id number] Diflucan 200 mg Premix Bag 100 100 / 100 ML @ 100 mls/hr IV.SIG Q24H RICARDO Rx#:[id number] Merrem Inj 1,000 MG In NS Inj 100 / 100 100 ML @ 200 mls/hr IV.SIG Q24H RICARDO Rx#:[id number] Oral 480 / 480 240 / 240 Output: Urine 900 / 900 100 / 100 Other: Date of Last Bowel Movement 02/05/18 Narrative: GENERAL: NAD, A&Ox3. Currently is receiving hemodialysis. CARDIOVASCULAR: Regular rate and rhythm without gallops, or rubs. RESPIRATORY: Breath sounds equal bilaterally. No accessory muscle use. GASTROINTESTINAL: Abdomen soft, non-tender, nondistended. MUSCULOSKELETAL: No cyanosis, status post right AKA. SKIN: Warm and dry. Left inner thigh and leg wounds with good granulation with small areas of necrosis at the edges - Urinary Catheter Management Straight Cath placed during this visit: no Reason for continuing: Acute urinary retention Indwelling Urethral Catheter Cath placed during this visit: yes, but has since been removed by the nurse Reason for continuing: Acute urinary retention Insertion date: 02/05/18 Insertion time: 11:00 Removal date: 01/24/18 Removal time: 12:50 Results - Labs CBC & Chem 7: 02/05/18 11:10 02/05/18 11:10 Laboratory Results - last 24 hr 02/05/18 02/05/18 02/05/18 10:45 16:30 20:32 POC Glucose 112 H 191 H Urine Color Brown H Urine Clarity Hazy H Urine pH 5.0 Ur Specific [place] 1.019 Urine Protein 100 H Urine Glucose (UA) 50 Urine Ketones Trace H Urine Occult Blood Small H Urine Nitrate Negative Urine Bilirubin Negative Urine Urobilinogen 2.0 H Ur Leukocyte Esterase Moderate H Urine RBC Less than 1 Urine WBC 44 H Urine WBC Clumps Moderate H Ur Squamous Epith Cells <1 Amorphous Sediment Few H Urine Bacteria Occasional H Micro UA Comment Culture indicated Ur Microscopic Review Not Reportable Urine Culture Comments Culture indicated 02/06/18 02/06/18 07:28 11:51 POC Glucose 94 89 Urine Color Urine Clarity Urine pH Ur Specific [place] Urine Protein Urine Glucose (UA) Urine Ketones Urine Occult Blood Urine Nitrate Urine Bilirubin Urine Urobilinogen Ur Leukocyte Esterase Urine RBC Urine WBC Urine WBC Clumps Ur Squamous Epith Cells Amorphous Sediment Urine Bacteria Micro UA Comment Ur Microscopic Review Urine Culture Comments - Imaging Impressions Shunt Study 01/23/18 15:58 CONCLUSION: 1. Uncomplicated evaluation of the fistula as above. 2. The arterial inflow, the proximal outflow from the fistula in the venous outflow centrally all appear adequate. There are some areas of mild narrowing as described above. - Procedures r AKa Assessment and Plan - Assessment (1) Cellulitis Code(s): L03.90 - Cellulitis, unspecified Status: Acute (2) ESRD (end stage renal disease) on dialysis Code(s): N18.6 - End stage renal disease; Z99.2 - Dependence on renal dialysis Status: Acute (3) HTN (hypertension) Code(s): I10 - Essential (primary) hypertension Status: Acute (4) DM (diabetes mellitus) Code(s): E11.9 - Type 2 diabetes mellitus without complications Status: Acute (5) Gangrene of right foot Code(s): I96 - Gangrene, not elsewhere classified Status: Acute - Plan 72 y/o WF admitted for BL LE pain secondary to infection/gangrene. Severe peripheral vascular disease Post right [id number] amputation 01/31/18. Open wound of the left inner tibia which grew out Pseudomonas and Klebsiella, sensitive to cefepime in late November. Chronic open wound of the left inner groin/thigh Left lateral thigh ecchymosis/cellulitis. Stable. Vascular surgeon following Podiatry following Continue statin Continue pain management counselled regarding narcotics Wound care nurse following Antibiotics in place: Meropenem, daptomycin and fluconazole for 4 weeks per ID. Per gearcase assembler, [facility] cannot continue IV daptomycin will alert infectious disease. Patient not a candidate for hyperbaric oxygen treatment per wound care physician Hypertension Continue Coreg Monitor blood pressures Diabetes type I Continue insulin pump Follow blood sugars Insulin sliding scale Diabetic diet End-stage renal disease Continue dialysis Tuesday. Continue dialysis per nephrology Nephrology following Constipation Chronic. Continue Metamucil Chronic pain Continue pain control. Hospital induced delirium/. Supportive care Right lung base nodule. Repeat CT scan in 3-6 months Urinary retention which could be multifactorial from immobilization, constipation and possible UTI. Abnormal urinalysis follow-up urine culture. Patient already on antimicrobials DVT Prophylaxis Heparin Discharge Planning: SNF when arranged (1) Cellulitis Qualifiers: Site of cellulitis: extremity Site of cellulitis of extremity: lower extremity Laterality: left Qualified Code(s): L03.116 - Cellulitis of left lower limb
--- NOTE | 2018-02-06 15:13 | P.PNID ---
Subjective Remarks: Patient just returned from dialysis. Family at bedside. Patient is awake and alert. She apparently was in distress and was noted to have urine retention. She was examined along with wound care nurse and dressings were removed. Not having pains at this moment. Family relates that she was very confused earlier before she went to dialysis this morning. Family reported to be more confused over the last couple of days. No fever. Urine culture has no growth in 24 hours. Patient noted to not have vessel in the RLE that can be bypassed on attempts at revascularization 01/24/2018. 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 HISTORY OF PRESENT ILLNESS: This is a 72-year-old white female who is known to me from previous hospitalizations. The patient was last admitted for a dehisced wound at the left tibia from a vascular procedure at the end of November. She had Pseudomonas aeruginosa cultured from the leg and also Klebsiella pneumoniae. She was discharged on cefepime, which she was receiving at hemodialysis center. She developed redness of her right foot and it became progressively worse with increased erythema and purplish discoloration at the right fifth toe and at the base of the fifth toe as well. 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 Allergies/Adverse Reactions: Allergies amlodipine Allergy (Severe, Verified 12/22/17 22:56) Edema, Generalized adhesive tape Allergy (Unknown, Verified 12/22/17 22:56) Generalized Itching Redness Objective Vital Signs 02/05/18 16:00 02/05/18 20:00 02/06/18 00:00 Temperature 97.8 F 97.9 F 98.3 F Pulse Rate 58 L 58 L 57 L Respiratory Rate 18 20 20 Blood Pressure 119/58 L 104/50 L 105/56 L Pulse Oximetry 95 96 98 02/06/18 04:00 02/06/18 08:00 Temperature 98.6 F 97.4 F L Pulse Rate 54 L 62 Respiratory Rate 20 18 Blood Pressure 123/58 L 127/63 Pulse Oximetry 98 98 Intake & Output 02/05/18 02/06/18 02/06/18 18:59 06:59 18:59 Intake Total 580 / 580 440 / 440 Output Total 900 / 900 100 / 100 Balance -320 / -320 340 / 340 Weight 113.4 kg Intake: IV 100 / 100 200 / 200 Cubicin Inj 600 MG In NS Inj 100 / 100 100 ML @ 200 mls/hr IV.SIG Q48H RICARDO Rx#:[id number] Diflucan 200 mg Premix Bag 100 100 / 100 ML @ 100 mls/hr IV.SIG Q24H RICARDO Rx#:[id number] Merrem Inj 1,000 MG In NS Inj 100 / 100 100 ML @ 200 mls/hr IV.SIG Q24H RICARDO Rx#:[id number] Oral 480 / 480 240 / 240 Output: Urine 900 / 900 100 / 100 Other: Date of Last Bowel Movement 02/05/18 02/05/18 10:45 Clean Catch Urine Urine Culture - Preliminary No growth in 24 hours Lab - Hematology Results 02/05/18 11:10 WBC 12.6 H RBC 3.49 L Hgb 10.0 L Hct 31.2 L MCV 89.5 MCH 28.7 MCHC 32.0 RDW 18.6 H Plt Count 251 MPV 8.1 Neut % (Auto) 69.6 Lymph % (Auto) 14.5 [place] % (Auto) 13.0 H Eos % (Auto) 2.1 Baso % (Auto) 0.8 Neut # (Auto) 8.8 H Lymph # (Auto) 1.8 [place] # (Auto) 1.6 H Eos # (Auto) 0.3 Baso # (Auto) 0.1 WBC Differential . Differential Comment Auto diff final Lab - Chemistry Results 02/04/18 02/04/18 02/05/18 16:53 22:35 07:21 Sodium Potassium Chloride Carbon Dioxide Anion Gap BUN Creatinine Estimated GFR POC Glucose 173 H 151 H 131 H Random Glucose Calcium Magnesium Total Bilirubin AST ALT Alkaline Phosphatase Total Protein Albumin 02/05/18 02/05/18 02/05/18 11:10 11:35 16:30 Sodium 136 Potassium 4.2 Chloride 96 L Carbon Dioxide 30.7 Anion Gap 9 BUN 40 H Creatinine 4.01 H Estimated GFR 11 L POC Glucose 115 H 112 H Random Glucose 103 Calcium 7.9 L Magnesium 1.8 Total Bilirubin 0.8 AST 10 L ALT Less than 6 L Alkaline Phosphatase 336 H Total Protein 5.2 L Albumin 1.7 L 02/05/18 02/06/18 02/06/18 20:32 07:28 11:51 Sodium Potassium Chloride Carbon Dioxide Anion Gap BUN Creatinine Estimated GFR POC Glucose 191 H 94 89 Random Glucose Calcium Magnesium Total Bilirubin AST ALT Alkaline Phosphatase Total Protein Albumin Imaging: ITS Impressions Femur CT 01/12/18 00:00 CONCLUSION: 1. Soft tissue defect in the anterior upper left thigh and the medial distal left thigh at the level of the knee. 2. Diffuse subcutaneous soft tissue edema. No drainable abscess identified. Aorta w/Runoff CTA 01/15/18 00:00 CONCLUSION: 1. Diffuse atherosclerotic disease with moderate distal aortic stenosis at the bifurcation. 2. Bilateral moderate common iliac artery stenosis, likely overestimated due to degree of calcified plaque. 3. Left femoral to above-knee popliteal artery bypass graft with critical stenosis of the proximal anastomosis and mild stenosis of the distal anastomosis. 4. Diffuse right SFA disease with tandem moderate stenoses in the proximal thigh and tandem severe stenoses in the distal thigh. Diffuse right popliteal artery disease. 5. Limited single vessel runoff on the right. The peroneal artery with reconstitution of the anterior tibial artery in the distal calf. 6. Limited two-vessel runoff on the left. Diffusely diseased posterior tibial and peroneal arteries. 7. Stable 10 mm nodule in the right lung base. Follow-up examination in 3-6 months is again recommended to document stability. 8. Stable additional ancillary findings, as above. Extremity Arterial Study 01/15/18 00:00 CONCLUSION: Findings of severe disease on the right side with nondiagnostic evaluation on the left. CT angiography of the abdominal aorta and lower extremities is recommended for further evaluation if clinically indicated. Head CT 01/16/18 00:00 CONCLUSION: 1. No acute findings in the brain. . Foot X-Ray 01/20/18 00:00 CONCLUSION: No acute findings. No evidence of bony destruction or new periosteal reaction. Shunt Study 01/23/18 15:58 CONCLUSION: 1. Uncomplicated evaluation of the fistula as above. 2. The arterial inflow, the proximal outflow from the fistula in the venous outflow centrally all appear adequate. There are some areas of mild narrowing as described above. Purdy Line Insertion 01/26/18 00:00 CONCLUSION: Uncomplicated ultrasound and fluoroscopic guided Purdy catheter placement as above. Physical Exam: GENERAL: Awake and alert. HEENT: Head is atraumatic. Extraocular movements grossly intact. Pupils reactive to light. No icterus. No conjunctival erythema. Oropharynx mucosa moist. NECK: Supple without adenopathy. LUNGS: Clear to auscultation. HEART: Regular S1, S2, without murmurs, rubs or gallops. ABDOMEN: Bowel sounds present, obese, soft, nontender. EXTREMITIES: The left inner thigh wound has very clean beefy red granulation tissue. Little eschar at the lower edge. The left inner tibial dehisced incision is very clean and has good granulation. 2 tiny specks of necrosis at the edge. Left lateral thigh has eschar with surrounding redness. Post R. BKA. SKIN: No diffuse rash. NEUROLOGIC: No gross focal finding. PSYCHIATRIC: calm, and cooperative. Assessment and Plan - Plan IMPRESION: 1. Severe peripheral vascular disease, now involving the right foot with gangrene at portion of the right fourth toe and the right fifth toe and base of the right fifth MTP. -Vascular disease not fixable with vascular procedure. Post right below-the- knee amputation 01/31/18. 2. Open wound of the left inner tibia which grew out Pseudomonas and Klebsiella, sensitive to cefepime in late November. Wound looks good. 3. Chronic open wound of the left inner groin/thigh which has had positive bacteria in the past and was treated with antibiotics and was doing well with dressing changes. Wound looks good. 4. Left lateral thigh ecchymosis/cellulitis/eschar. 5. Diabetes mellitus. 6. End-stage renal disease on hemodialysis. 7. Decreased mentation. Appears more alert. She has had pain and has been receiving pain medication and also had urinary retention. Urine culture was obtained and has no growth. RECOMMENDATIONS: 1. Stop Daptomycin. 2. Continue Meropenem. 3. Continue Diflucan. 4. Monitor wounds and clinical response. Wound care following wounds. Discussed with family who agrees to have palliative care involved. She was appearing to be more confused. Discussed with Dr. Sosa.
--- NOTE | 2018-02-06 16:28 | P.PNWCN ---
Wound Care Nurse Consult Description: Wound consult ordered by for wound management. Recommendation: 1. Ensure patient has heel protectors on when in bed avoiding contact with surface. 2. Cleanse all wounds with normal saline only.Pat dry 3. Apply Calazime cream in thin layer to periwound. 4. Apply Santyl 2mm thick to L groin wound base and left medial surgical wound base. 5. Cover with saline moistened gauze cover with ABD secure with rolled gauze and minimal pieces of tape. 6. Sign and date all dressings.Skin prep Right calcaneus and Right 5th digit BID. Wound/Pressure Injury - Patient Status Premedicated for Pain Prior to Dressing Change: No - Wound Left Groin Wound Assessment: Ongoing Wound Type: Traumatic Wound Is This a Chronic Wound: Yes Requested from Provider a Wound Care Consult: No (Markus MERCADO, [facility] seen 02/06) Length: 10 Width: 17.3 Depth: 1.0 Wound Bed Appearance: [place], Red Surrounding Tissue Appearance: [place] Surrounding Tissue Temperature: Warm Drainage Description: Serosanguinous Drainage Amount: Minimal Drainage Odor: No Odor Dressing Status: Dry & Intact, Changed Cleansing Solution: Saline Topical: Enzymatic Debridement Ointment Wound Packing Type: Gauze Pads Primary Dressing: Gauze Pad Cover Dressing: Absorbant Pad Wound Dressing Change Date: 02/06/18 Left Thigh Wound Assessment: Ongoing Wound Type: Traumatic Wound Is This a Chronic Wound: No Requested from Provider a Wound Care Consult: No (Markus MERCADO,[facility] seen 02/06) Wound Bed Appearance: Necrotic, [place], Red Surrounding Tissue Appearance: Bright Red Surrounding Tissue Temperature: Warm Drainage Description: Serosanguinous Drainage Amount: Minimal Drainage Odor: No Odor Dressing Status: Dry & Intact Cleansing Solution: Saline Topical: Enzymatic Debridement Ointment Wound Packing Type: Gauze Pads Primary Dressing: Absorbant Pad Cover Dressing: Gauze Pads Tape Type: Paper Posterior Sacrum Wound Assessment: Ongoing Wound Type: Pressure Injury Drainage Amount: None Drainage Odor: No Odor Dressing Status: Open to Air Topical: Calazime lotion Right Toe - 5th Digit Wound Assessment: Ongoing Wound Type: Traumatic Wound Is This a Chronic Wound: No Requested from Provider a Wound Care Consult: No Wound Bed Appearance: Necrotic Surrounding Tissue Appearance: Blanched/Dull, Bright Red, Dark Red Surrounding Tissue Temperature: Cold Drainage Description: Purulent Drainage Amount: None Drainage Odor: No Odor Dressing Status: Open to Air Cleansing Solution: SKIN PREP Topical: Povidine-Iodine (Betadine) Primary Dressing: Gauze Roll/Wrap Cover Dressing: Transparent Left Forearm Wound Assessment: Ongoing Wound Type: Traumatic Wound Is This a Chronic Wound: Yes Requested from Provider a Wound Care Consult: No Wound Bed Appearance: Red Dressing Status: Open to Air Left medial surgical Wound Assessment: Ongoing Wound Type: Maceration Is This a Chronic Wound: No Requested from Provider a Wound Care Consult: No Length: 14.8 Width: 3.9 Depth: 1.6 Wound Bed Appearance: [place] Surrounding Tissue Appearance: [place] Surrounding Tissue Temperature: Warm Drainage Description: Serosanguinous Drainage Amount: None Drainage Odor: No Odor Dressing Status: Dry & Intact Cleansing Solution: Antibiotic Topical: Enzymatic Debridement Ointment Wound Packing Type: Gauze Pads Primary Dressing: Gauze Roll/Wrap Cover Dressing: Absorbant Pad Tape Type: Paper Wound Dressing Change Date: 01/17/18 Right heel Wound Staging: Unstageable Wound Assessment: Ongoing Wound Type: Abrasion Is This a Chronic Wound: Yes Requested from Provider a Wound Care Consult: No Length: 1.5 Width: 2.0 Wound Bed Appearance: Necrotic Wound Bed Appearance: 100% firmly adhered dry black eschar Surrounding Tissue Appearance: Blanched/Dull Surrounding Tissue Temperature: Warm Drainage Amount: None Drainage Odor: No Odor Dressing Status: Open to Air Cleansing Solution: SKIN PREP Topical: skin prep Wound Packing Type: Gauze Pads Left medial Wound Assessment: Ongoing Wound Type: Traumatic Wound Is This a Chronic Wound: No Requested from Provider a Wound Care Consult: No Length: 12.4 Width: 2.2 Depth: 1.8 Wound Bed Appearance: [place], Red, Yellow Surrounding Tissue Appearance: Bright Red Surrounding Tissue Temperature: Warm Drainage Description: Serosanguinous Drainage Amount: Moderate Drainage Odor: No Odor Dressing Status: Dry & Intact Cleansing Solution: Saline Topical: Enzymatic Debridement Ointment Wound Packing Type: Gauze Pads Primary Dressing: Absorbant Pad Cover Dressing: Absorbant Pad Tape Type: Paper Incision - Patient Status Premedicated for Pain Prior to Dressing Change: No - Incision Left Groin Incision Assessment: Ongoing Incision Type: Incision Incision Description: Open Incision Bed Appearance: [place] Surrounding Tissue Appearance: [place] Surrounding Tissue Temperature: Warm Drainage Description: Purulent Drainage Amount: None Drainage Odor: No Odor Incision Dressing Status: Dry & Intact Incision Cleaning Solution: Saline Topical: Santyl Incision Packing Type: Gauze Pads Primary Dressing: Gauze Pad Cover Dressing: Absorbant Pad Tape Type: Paper Right Groin Incision Assessment: Ongoing Incision Type: Incision Incision Description: Liquid Adhesive Incision Bed Appearance: [place] Surrounding Tissue Appearance: [place] Drainage Amount: None Drainage Odor: No Odor Incision Dressing Status: Dry & Intact Incision Packing Type: Woundvac Sponge Primary Dressing: Gauze Pad Cover Dressing: Absorbant Pad Other Cover Dressing: PREVENA VAC Tape Type: Paper Incision/Surgery Date: 01/24/18 Left Anterior Calf Incision Assessment: Ongoing Incision Type: Incision Incision Description: Steri-Strips Incision Bed Appearance: [place] Surrounding Tissue Appearance: [place] Surrounding Tissue Temperature: Warm Drainage Description: Serosanguinous Drainage Amount: Minimal Drainage Odor: No Odor Incision Dressing Status: Dry & Intact Incision Cleaning Solution: Saline Topical: Santyl Incision Packing Type: Gauze Pads Primary Dressing: Gauze Pad Cover Dressing: Absorbant Pad Tape Type: Paper Right Upper Chest Incision Assessment: Ongoing Incision Type: Incision Incision Description: Approximated, Steri-Strips Surrounding Tissue Temperature: Warm Drainage Amount: None Incision Dressing Status: Dry & Intact Primary Dressing: Steri Strips Cover Dressing: Transparent Tape Type: Transparent Right Leg Incision Assessment: Ongoing Incision Type: Incision Incision Description: Approximated, [place] Incision Bed Appearance: [place] Surrounding Tissue Appearance: [place] Surrounding Tissue Temperature: Warm Drainage Description: Serosanguinous Drainage Amount: Minimal Drainage Odor: No Odor Incision Dressing Status: Dry & Intact Primary Dressing: Gauze Pad Cover Dressing: Absorbant Pad, Gauze Roll/Wrap Other Cover Dressing: [place] Tape Type: Silk
[2018-02-06] MEDS: Psyllium Husk SF 3.4 GM in 5.8 GM Packet PO SCH (16:40)
[2018-02-06] MEDS: Ezetimibe 10 MG Tablet PO SCH (17:05)
--- NOTE | 2018-02-06 17:11 | P.CONPAL ---
Consult Service: Palliative Care . Requesting Physician: Chetan Sosa Reason for Consult: a. To assist with evaluation and management of symptoms including: pain; constipation; delirium b. To assist medical decision maker(s) with: better understanding of current medical conditions; weighing benefits/burdens of medical treatment options; making medical treatment decisions. Primary Care Provider: Garret Samaniego MD History of Present Illness History of Present Illness: Ms. Jarrell is a 72 y/o F with a known medical history which includes type 2 diabetes with retinopathy/nephropathy; end-stage renal disease requiring hemodialysis for 2 years; hypertension; hyperlipidemia; coronary artery disease status post three-vessel coronary artery bypass grafting; hypothyroidism; and severe peripheral vascular disease requiring multiple interventions; who was sent to the emergency department on 01/12/2018 by her vascular surgeon--Dr. Brothers--because of pain and infections secondary to her vascular disease. Dr. Brothers also wanted to get a consultation from Dr. Rodrigues. Over the week leading up to this hospitalization the patient had noted worsening of her bilateral lower extremity pain. Previously she had been able to assist with transfers to her wheelchair. Pain had progressed to the point where she was unable to bear weight at all. She had also experienced increasing erythema over her right lower extremity from ríos down to the right foot. On the left side there was bruising and induration. The patient also vomited 3 times during the week. She was being treated for chronic ischemic wounds over the left lower extremity--1 on the anterior proximal left thigh and another on the medial left calf. She was receiving antibiotics. The pain had become unbearable in spite of being on a fentanyl patch and breakthrough oxycodone. The patient specific vascular lesions are well noted in Dr. Brothers's consultation of 01/12/2018. The patient underwent a below the knee prosthetic femoral-popliteal bypass on due to progressive ischemic necrosis of the left great and fifth toes. Following that procedure the lesions on the toes healed but she developed necrosis within the femoral and popliteal exposure wounds. She required debridement and ongoing wound care in this area. The patient has had little time outside of the hospital or rehab facility since June of this year. The following list demonstrates her recent time in [facility]: * 07/21/17 through 07/23/17 acute-care hospitalization * 09/07/2017 through 09/24/2017 acute-care hospitalization * 09/24/2017 through 10/07/2017 rehabilitation stay * 10/07/2017 through 10/18/2017 acute-care hospitalization * 10/18/17 through 11/12/2017 rehabilitation stay * 11/16/2017 through 11/17/2017 acute-care hospitalization * 12/17/2017 through 12/27/2017 acute-care hospitalization * 12/28/2017 through 12/29/2017 acute-care hospitalization * 01/13/2018 through present acute-care hospitalization. After admission, the patient was seen by Dr. Rodrigues and podiatry to see if there were options available to preserve the right lower extremity. She underwent right femoral artery exploration on 01/24/2018. It was felt that the artery was so calcified that would require arterial recontstruction to do a satisfactory bypass. The patient ultimately went to right [facility] on 01/31/18. Ms. Jarrell has had challenges with pain and delirium since her surgery. Family reports that she is confused and agitated far more than she is cognitively clear. They reports she screams in pain with re-positioning and that it is taking four people to move her. She has to be taken to dialysis in her own bed as it is too painful to transfer her from bed to [facility]. She has hallucinations and paranoia. Family reports that the opiates seem to help with pain but seem to exacerbate her delirium. Wound care saw the patient today. The wound of most concern at this time is the necrotic appearing wound on the left thigh. Dr. Rodrigues feels this is likely from ischemia and if so there are no real interventions that can help and prognosis is quite poor. Infectious Disease is following the patient. The open wound of the left inner tibia grew out Psudomonas and Klebsiella in late November -- that wound appears to be healing. ID has stopped Daptomycin but is continuing the patient on meropenem and diflucan. At time of my visit, patient is able to answer a few simple questions, but has little insight into her current condition and is really unable localize or describe her pain. Patient is unable to provide her own review of systems. 12 point ROS was taken from available family and medical record and the following were noted: * Very poor vision bilaterally due to diabetic retinopathy s/p multiple laser procedures * Occasional SOB * Coughing after eating sometimes leading to vomiting. * Heartburn/reflux symptoms * Has had intermittent diarrhea, but constipation now more common due to opiate needs. No known family history of diabetes; vascular disease; or renal failure. Function/Cognitive Trajectory: The patient had been able to ambulate a little (though painful) up until around May of this year. Family did not feel there was underlying dementia and that the confusion/agitation was unique to this hospitalization. Appetite has been poor. the pain has been incapacitating at times. . 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 (Acute) AV (arteriovenous fistula) - Surgical History Surgical History: Surgical History (Last Updated 02/06/18 @ 17:16 by Chip hSen MD) History of coronary artery bypass graft x 3 (Acute) History of cholecystectomy (Acute) History of appendectomy (Acute) H/O heart bypass surgery (Acute) Hx of AKA (above knee amputation) - Family History Family History: Family History (Last Updated 02/06/18 @ 19:07 by Chip Shen MD) Mother Cancer Lung cancer Sister Uterine cancer Father Congestive heart failure - Tobacco History Second Hand Smoke Exposure: No Tobacco Use In Past 30 Days: No Smoking Status: Former smoker Tobacco Type: Cigarettes - Alcohol History How Often Do You Have a Drink Containing Alcohol: Never - Substance Use History Substance History: No History of Abuse - Travel History Recent Travel in the [place] Within the Last 8 Weeks: No Recent Travel Out of the Country Within the Last 8 Weeks: No - Immunization History Tetanus Immunization: Unsure Hx Influenza Vaccine This Season: Unable to Assess Medications and Allergies Active Medications: Active Medications Acetaminophen (Tylenol) 650 mg PO UNSCH PRN PRN Reason: SEE LABEL COMMENTS Atorvastatin Calcium (Lipitor) 40 mg PO QPM [facility] Last Admin: 02/05/18 17:11 Dose: 40 mg Carvedilol (Coreg) 6.25 mg PO BID [facility] Last Admin: 02/06/18 09:13 Dose: Not Given Cinacalcet (Sensipar) 30 mg PO DAILY [facility] Last Admin: 02/06/18 09:14 Dose: Not Given Clonidine HCl (Catapres) 0.1 mg PO UNSCH PRN PRN Reason: SEE LABEL COMMENTS Clopidogrel Bisulfate (Plavix) 75 mg PO DAILY [facility] Last Admin: 02/06/18 09:13 Dose: Not Given Collagenase (Santyl Oint) 1 applicatio TOPICAL DAILY [facility] Last Admin: 02/06/18 09:14 Dose: Not Given Dextrose (D50w Vial) 50 ml IV.PUSH UNSCH PRN PRN Reason: PER HYPOGLYCEMIA PROTOCOL Diphenhydramine HCl (Benadryl) 25 mg PO UNSCH PRN PRN Reason: SEE LABEL COMMENTS Ezetimibe (Zetia) 10 mg PO QPM [facility] Last Admin: 02/05/18 17:11 Dose: 10 mg Epoetin Dio (Epogen Inj) 10,000 unit IV.PUSH UNSCH PRN PRN Reason: SEE LABEL COMMENTS Last Admin: 02/06/18 12:04 Dose: 10,000 unit Famotidine (Pepcid) 10 mg PO BID [facility] Last Admin: 02/06/18 09:13 Dose: Not Given Gabapentin (Neurontin) 100 mg PO BID [facility] Last Admin: 02/06/18 09:13 Dose: Not Given Gelatin (Gelfoam 12 Mm/7 Mm Topical) 1 foam TOPICAL PRN PRN PRN Reason: help stop bleeding from site Last Admin: 01/27/18 19:10 Dose: 1 foam Gentamicin Sulfate (Gentamicin Inj) 20 mg OTHER WITH DIALYSIS PRN PRN Reason: Dwell Gentamycin Lock Last Admin: 01/30/18 13:24 Dose: 20 mg Glucagon (Glucagon Inj) 1 mg OTHER PRN PRN PRN Reason: for Hypoglycemia Protocol Heparin Sodium (Porcine) (Heparin Inj) 1,000 units OTHER WITH DIALYSIS PRN PRN Reason: Dwell Heparin to Fill Catheter Last Admin: 01/30/18 13:25 Dose: 1,000 units Heparin Sodium (Porcine) (Heparin Inj) 8,000 units OTHER WITH DIALYSIS PRN PRN Reason: for machine prime Heparin Sodium (Porcine) (Heparin Inj) 5,000 units SQ Q12H [facility] Last Admin: 02/06/18 11:20 Dose: Not Given Heparin Sodium (Porcine) (Heparin Central Flush) 0 unit IV.FLUSH DAILY [facility] Last Admin: 02/06/18 09:13 Dose: Not Given Heparin Sodium (Porcine) (Heparin Central Flush) 0 unit IV.FLUSH PRN PRN PRN Reason: Flush each lumen Fluconazole (Diflucan 200 Mg Premix Bag) 100 mls @ 100 mls/hr IV.SIG Q24H [facility] Last Infusion: 02/06/18 06:41 Dose: Infused Sodium Chloride (Ns Inj) 1,000 mls @ 0 mls/hr OTHER .Q0M PRN PRN Reason: for prime and rinse back Last Infusion: 01/23/18 20:00 Dose: Infused Sodium Chloride (Ns Inj) 1,000 mls @ 200 mls/hr OTHER .Q5H PRN PRN Reason: for dialyzer flush PRN Sodium Chloride (Ns Inj) 1,000 mls @ 0 mls/hr IV.CONT .Q0M PRN PRN Reason: hypotension / volume replace Meropenem 1,000 mg/ Sodium (Chloride) 100 mls @ 200 mls/hr IV.SIG Q24H [facility] Last Infusion: 02/05/18 19:08 Dose: Infused Insulin Aspart (Novolog Insulin Correctional Sugar Inj) 0 unit SQ ACHS [facility]; Protocol Last Admin: 02/06/18 11:20 Dose: Not Given Insulin Detemir (Levemir Inj) 2 unit SQ BID [facility] Last Admin: 02/06/18 09:13 Dose: Not Given Lactulose (Lactulose Liq) 30 ml PO BID PRN PRN Reason: CONSTIPATION Levothyroxine Sodium (Synthroid) 125 mcg PO DAILY@0600 [facility] Last Admin: 02/06/18 05:30 Dose: 125 mcg Mannitol (Mannitol Inj) 12.5 gm IV.PUSH UNSCH PRN PRN Reason: hypotension / volume replace Morphine Sulfate (Morphine Inj) 2 mg IV.PUSH Q3H PRN PRN Reason: BREAKTHROUGH PAIN Last Admin: 02/02/18 00:35 Dose: 2 mg Naloxone HCl (Narcan Inj) 0.4 mg IV.PUSH Q2M PRN PRN Reason: persistant lethargy Nitroglycerin (Nitrostat Sl) 0.4 mg SL Q5M PRN PRN Reason: CHEST PAIN Ondansetron HCl (Zofran Inj) 4 mg IV.PUSH Q6H PRN PRN Reason: NAUSEA OR VOMITING Oxycodone HCl (Roxicodone) 10 mg PO Q4H PRN PRN Reason: PAIN SCALE 1 TO 10 Last Admin: 02/06/18 10:53 Dose: 10 mg Patch Removal (Remove Old Patch) 1 each T-DERMAL Q3D [facility] Last Admin: 02/05/18 17:46 Dose: 1 each Psyllium Hydrophilic Mucilloid (Metamucil Fiber Sf Pkt) 1 pack PO DAILY@1700 [facility] Last Admin: 02/05/18 16:00 Dose: Not Given Sevelamer Carbonate (Renvela) 800 mg PO QID [facility] Last Admin: 02/06/18 12:02 Dose: Not Given Sodium Chloride (Ns Flush) 5 ml IV.FLUSH PRN PRN PRN Reason: flush each lumen during HD Last Admin: 02/05/18 09:07 Dose: 5 ml Sodium Chloride (Ns Flush) 0 ml IV.FLUSH DAILY [facility] Last Admin: 02/06/18 09:13 Dose: Not Given Sodium Chloride (Ns Flush) 2 ml IV.FLUSH BID [facility] Last Admin: 02/06/18 09:13 Dose: Not Given Sodium Chloride (Ns Flush) 2 ml IV.FLUSH PRN PRN PRN Reason: FLUSH AFTER USING IV ACCESS Last Admin: 02/03/18 09:52 Dose: 2 ml Allergies Allergy/AdvReac Type Severity Reaction Status Date / Time amlodipine Allergy Severe Edema, Verified 12/22/17 22:56 Generalized adhesive tape Allergy Unknown Generalized Verified 12/22/17 22:56 Itching Home Medications Medication Instructions Recorded Confirmed Type carvedilol [Coreg] 6.25 mg PO BID 12/22/17 01/12/18 History cinacalcet [Sensipar] 30 mg PO DAILY 12/22/17 01/12/18 History clopidogrel [Plavix] 75 mg PO DAILY 12/22/17 01/12/18 History ezetimibe-simvastatin [Vytorin 1 tab PO QPM 12/22/17 01/12/18 History 10-80] gabapentin 100 mg PO BID 12/22/17 01/12/18 History insulin pump-infus. set-meter 12/22/17 01/16/18 History levothyroxine 0.125 mg PO DAILY 12/22/17 01/12/18 History ranitidine HCl [Zantac] 150 mg PO BID 12/22/17 01/12/18 History sevelamer carbonate [Renvela] 800 mg PO QID 12/22/17 01/12/18 History clindamycin HCl 300 mg PO TID 01/12/18 01/12/18 History fentanyl 1 patch TRANSDERMAL Q72H 01/12/18 01/12/18 History oxycodone 10 mg PO Q4H PRN 01/12/18 01/12/18 History Advance Directives Living Will: Yes Healthcare Surrogate: Yes (AD not on file. Family reports spouse is primary and brother is alternate ) Power of Physician Intensivist: No Today's verbally stated goals: Patient unable to verbally state her own health care goals/preferences. . Family/friends goals: Patient's spouse, brother, and cousin fear that patient is no longer able to make her own medical decisions. they feel that unless the doctor's feel she has a reasonable chance of recovering, being relatively free of pain, and being able to get home, she would not want ongoing aggressive care. . Ethical and Legal Issues: Patient appears mostly incapacitated at this time to make her own health care decisions. . Physical Exam Vital Signs: Vital Signs - 24 hr 02/05/18 20:00 02/06/18 00:00 02/06/18 04:00 Temperature 97.9 F 98.3 F 98.6 F Pulse Rate 58 L 57 L 54 L Respiratory Rate 20 20 20 Blood Pressure 104/50 L 105/56 L 123/58 L Pulse Oximetry 96 98 98 02/06/18 08:00 Temperature 97.4 F L Pulse Rate 62 Respiratory Rate 18 Blood Pressure 127/63 Pulse Oximetry 98 I&O: Intake & Output 02/04/18 02/05/18 02/06/18 02/07/18 06:59 06:59 06:59 06:59 Intake Total 780 / 780 920 / 920 1020 / 1020 Output Total 3600 / 3600 1000 / 1000 Balance -2820 / -2820 920 / 920 20 / 20 Weight 110.8 kg 113.4 kg Physical Exam: CONSTITUTIONAL/GENERAL: This is an adequately nourished patient, confused, comfortable appearing while still, but grimacing with any movement. TUBES/LINES/DRAINS: AV fistula RUE; abbott catheter; right subclavian catheter SKIN: No jaundice, rashes. Wounds left groin; left thigh; posterior sacrum . Skin temperature appropriate. Not diaphoretic. HEAD: Atraumatic. Normocephalic. EYES: Pupils equal and round and reactive. Extraocular motions intact. No scleral icterus. No injection or drainage. Fundi not examined. ENT: Hearing grossly normal. Nose without bleeding or purulent drainage. Throat without visible erythema, exudates, masses, or lesions. NECK: Trachea midline. Supple, nontender. No palpable thyroid enlargement or nodularity. CARDIOVASCULAR: Regular rate and rhythm without murmurs, gallops, or rubs. No JVD. Cannot palpate peripheral pulses in left foot. Radial artery pulses are palpable. RESPIRATORY/CHEST: Symmetric, unlabored respirations. Clear to auscultation. Breath sounds equal bilaterally. No wheezes, rales, or rhonchi. GASTROINTESTINAL: Abdomen obese, soft, non-tender, nondistended. No hepato- splenomegaly, or palpable masses. No guarding. Bowel sounds present. GENITOURINARY: Without palpable bladder distension. Abbott catheter in place. MUSCULOSKELETAL: s/p Right AKA. LLE with wounds as noted. No edema. No joint tenderness or effusion noted. LYMPHATICS: No palpable cervical or supraclavicular adenopathy. NEUROLOGICAL: Answers a few simple questions appropriately, but quickly drifts off and thought process derails. Follows simple commands. Llimits movement because of pain. PSYCHIATRIC: No obvious anxiety/depression. No apparent hallucinations or other psychotic thought process. . Diagnostic Tests Laboratory: Laboratory Results - last 72 hr 02/03/18 02/03/18 02/04/18 16:32 21:46 06:30 WBC RBC Hgb Hct MCV MCH MCHC RDW Plt Count MPV Neut % (Auto) Lymph % (Auto) [place] % (Auto) Eos % (Auto) Baso % (Auto) Neut # (Auto) Lymph # (Auto) [place] # (Auto) Eos # (Auto) Baso # (Auto) WBC Differential Differential Comment Sodium 138 Potassium 3.8 Chloride 98 Carbon Dioxide 30.9 Anion Gap 9 BUN 30 H Creatinine 3.20 H Estimated GFR 14 L POC Glucose 117 H 223 H Random Glucose 125 H Calcium 8.0 L Magnesium 1.8 Total Bilirubin AST ALT Alkaline Phosphatase Total Protein Albumin Urine Color Urine Clarity Urine pH Ur Specific [place] Urine Protein Urine Glucose (UA) Urine Ketones Urine Occult Blood Urine Nitrate Urine Bilirubin Urine Urobilinogen Ur Leukocyte Esterase Urine RBC Urine WBC Urine WBC Clumps Ur Squamous Epith Cells Amorphous Sediment Urine Bacteria Micro UA Comment Ur Microscopic Review Urine Culture Comments 02/04/18 02/04/18 02/04/18 07:56 11:41 16:53 WBC RBC Hgb Hct MCV MCH MCHC RDW Plt Count MPV Neut % (Auto) Lymph % (Auto) [place] % (Auto) Eos % (Auto) Baso % (Auto) Neut # (Auto) Lymph # (Auto) [place] # (Auto) Eos # (Auto) Baso # (Auto) WBC Differential Differential Comment Sodium Potassium Chloride Carbon Dioxide Anion Gap BUN Creatinine Estimated GFR POC Glucose 146 H 158 H 173 H Random Glucose Calcium Magnesium Total Bilirubin AST ALT Alkaline Phosphatase Total Protein Albumin Urine Color Urine Clarity Urine pH Ur Specific [place] Urine Protein Urine Glucose (UA) Urine Ketones Urine Occult Blood Urine Nitrate Urine Bilirubin Urine Urobilinogen Ur Leukocyte Esterase Urine RBC Urine WBC Urine WBC Clumps Ur Squamous Epith Cells Amorphous Sediment Urine Bacteria Micro UA Comment Ur Microscopic Review Urine Culture Comments 02/04/18 02/05/18 02/05/18 22:35 07:21 10:45 WBC RBC Hgb Hct MCV MCH MCHC RDW Plt Count MPV Neut % (Auto) Lymph % (Auto) [place] % (Auto) Eos % (Auto) Baso % (Auto) Neut # (Auto) Lymph # (Auto) [place] # (Auto) Eos # (Auto) Baso # (Auto) WBC Differential Differential Comment Sodium Potassium Chloride Carbon Dioxide Anion Gap BUN Creatinine Estimated GFR POC Glucose 151 H 131 H Random Glucose Calcium Magnesium Total Bilirubin AST ALT Alkaline Phosphatase Total Protein Albumin Urine Color Brown H Urine Clarity Hazy H Urine pH 5.0 Ur Specific [place] 1.019 Urine Protein 100 H Urine Glucose (UA) 50 Urine Ketones Trace H Urine Occult Blood Small H Urine Nitrate Negative Urine Bilirubin Negative Urine Urobilinogen 2.0 H Ur Leukocyte Esterase Moderate H Urine RBC Less than 1 Urine WBC 44 H Urine WBC Clumps Moderate H Ur Squamous Epith Cells <1 Amorphous Sediment Few H Urine Bacteria Occasional H Micro UA Comment Culture indicated Ur Microscopic Review Not Reportable Urine Culture Comments Culture indicated 02/05/18 02/05/18 02/05/18 11:10 11:10 11:35 WBC 12.6 H RBC 3.49 L Hgb 10.0 L Hct 31.2 L MCV 89.5 MCH 28.7 MCHC 32.0 RDW 18.6 H Plt Count 251 MPV 8.1 Neut % (Auto) 69.6 Lymph % (Auto) 14.5 [place] % (Auto) 13.0 H Eos % (Auto) 2.1 Baso % (Auto) 0.8 Neut # (Auto) 8.8 H Lymph # (Auto) 1.8 [place] # (Auto) 1.6 H Eos # (Auto) 0.3 Baso # (Auto) 0.1 WBC Differential . Differential Comment Auto diff final Sodium 136 Potassium 4.2 Chloride 96 L Carbon Dioxide 30.7 Anion Gap 9 BUN 40 H Creatinine 4.01 H Estimated GFR 11 L POC Glucose 115 H Random Glucose 103 Calcium 7.9 L Magnesium 1.8 Total Bilirubin 0.8 AST 10 L ALT Less than 6 L Alkaline Phosphatase 336 H Total Protein 5.2 L Albumin 1.7 L Urine Color Urine Clarity Urine pH Ur Specific [place] Urine Protein Urine Glucose (UA) Urine Ketones Urine Occult Blood Urine Nitrate Urine Bilirubin Urine Urobilinogen Ur Leukocyte Esterase Urine RBC Urine WBC Urine WBC Clumps Ur Squamous Epith Cells Amorphous Sediment Urine Bacteria Micro UA Comment Ur Microscopic Review Urine Culture Comments 02/05/18 02/05/18 02/06/18 16:30 20:32 07:28 WBC RBC Hgb Hct MCV MCH MCHC RDW Plt Count MPV Neut % (Auto) Lymph % (Auto) [place] % (Auto) Eos % (Auto) Baso % (Auto) Neut # (Auto) Lymph # (Auto) [place] # (Auto) Eos # (Auto) Baso # (Auto) WBC Differential Differential Comment Sodium Potassium Chloride Carbon Dioxide Anion Gap BUN Creatinine Estimated GFR POC Glucose 112 H 191 H 94 Random Glucose Calcium Magnesium Total Bilirubin AST ALT Alkaline Phosphatase Total Protein Albumin Urine Color Urine Clarity Urine pH Ur Specific [place] Urine Protein Urine Glucose (UA) Urine Ketones Urine Occult Blood Urine Nitrate Urine Bilirubin Urine Urobilinogen Ur Leukocyte Esterase Urine RBC Urine WBC Urine WBC Clumps Ur Squamous Epith Cells Amorphous Sediment Urine Bacteria Micro UA Comment Ur Microscopic Review Urine Culture Comments 02/06/18 11:51 WBC RBC Hgb Hct MCV MCH MCHC RDW Plt Count MPV Neut % (Auto) Lymph % (Auto) [place] % (Auto) Eos % (Auto) Baso % (Auto) Neut # (Auto) Lymph # (Auto) [place] # (Auto) Eos # (Auto) Baso # (Auto) WBC Differential Differential Comment Sodium Potassium Chloride Carbon Dioxide Anion Gap BUN Creatinine Estimated GFR POC Glucose 89 Random Glucose Calcium Magnesium Total Bilirubin AST ALT Alkaline Phosphatase Total Protein Albumin Urine Color Urine Clarity Urine pH Ur Specific [place] Urine Protein Urine Glucose (UA) Urine Ketones Urine Occult Blood Urine Nitrate Urine Bilirubin Urine Urobilinogen Ur Leukocyte Esterase Urine RBC Urine WBC Urine WBC Clumps Ur Squamous Epith Cells Amorphous Sediment Urine Bacteria Micro UA Comment Ur Microscopic Review Urine Culture Comments Result Diagrams: 02/05/18 11:10 02/05/18 11:10 Microbiology: Microbiology 02/05/18 10:45 Urine Culture - Preliminary Clean Catch Urine No growth in 24 hours Imaging: Femur CT 01/12/18 00:00 CONCLUSION: 1. Soft tissue defect in the anterior upper left thigh and the medial distal left thigh at the level of the knee. 2. Diffuse subcutaneous soft tissue edema. No drainable abscess identified. Aorta w/Runoff CTA 01/15/18 00:00 CONCLUSION: 1. Diffuse atherosclerotic disease with moderate distal aortic stenosis at the bifurcation. 2. Bilateral moderate common iliac artery stenosis, likely overestimated due to degree of calcified plaque. 3. Left femoral to above-knee popliteal artery bypass graft with critical stenosis of the proximal anastomosis and mild stenosis of the distal anastomosis. 4. Diffuse right SFA disease with tandem moderate stenoses in the proximal thigh and tandem severe stenoses in the distal thigh. Diffuse right popliteal artery disease. 5. Limited single vessel runoff on the right. The peroneal artery with reconstitution of the anterior tibial artery in the distal calf. 6. Limited two-vessel runoff on the left. Diffusely diseased posterior tibial and peroneal arteries. 7. Stable 10 mm nodule in the right lung base. Follow-up examination in 3-6 months is again recommended to document stability. 8. Stable additional ancillary findings, as above. Extremity Arterial Study 01/15/18 00:00 CONCLUSION: Findings of severe disease on the right side with nondiagnostic evaluation on the left. CT angiography of the abdominal aorta and lower extremities is recommended for further evaluation if clinically indicated. Head CT 01/16/18 00:00 CONCLUSION: 1. No acute findings in the brain. . Foot X-Ray 01/20/18 00:00 CONCLUSION: Multiple bony deformities and subluxations, very similar appearance to 2017. No evidence of new focal bony destruction or periosteal reaction. Foot X-Ray 01/20/18 00:00 CONCLUSION: No acute findings. No evidence of bony destruction or new periosteal reaction. Shunt Study 01/23/18 15:58 CONCLUSION: 1. Uncomplicated evaluation of the fistula as above. 2. The arterial inflow, the proximal outflow from the fistula in the venous outflow centrally all appear adequate. There are some areas of mild narrowing as described above. Purdy Line Insertion 01/26/18 00:00 CONCLUSION: Uncomplicated ultrasound and fluoroscopic guided Purdy catheter placement as above. Procedures: Right AKA 01/31/18 . Patient/Family Conference Present at Family Conference: Ric (spouse); Keyshawn (brother); Snow (cousin) . Family Conference Time: 55 Family Conference Location: Consult Room Issues Discussed: * Palliative care role, purpose, approach * Additional medical, psychosocial, and spiritual history * Patients general health, functional status, and cognitive changes in the months leading up to the current hospitalization * Family understanding of the current medical problems * Family understanding of prognosis * Patients goals of care as best understood from advance directives and/or conversations and/or values * Current medical treatment options and benefits/burdens of those options * Likely scenarios comparing ongoing aggressive care with a transition to comfort measures only * Questions answered to the best of my ability * Palliative care contact information provided . Assessment and Plan - Disease Oriented Problem List (1) Post op infection (2) ESRD (end stage renal disease) on dialysis (3) DM (diabetes mellitus) (4) Peripheral vascular disease of lower extremity with ulceration (5) Osteomyelitis of left foot (6) Coronary artery disease (7) Retinopathy due to secondary diabetes - Symptom Scale (1) Pain 0-10 Scale: 10 (2) Delirium 0-10 Scale: 10 Pertinent Non-Medical Issues: Psychosocial: Born here at [facility]. 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 55 years to Ric.. Two sons-- one lives locally, one in [place]. 2 Grandchildren. 1 brother -- Keyshawn - lives in [facility]. Spiritual: Gnosticism. Pt's brother provides the spiritual support. Legal: Family reports patient has a living will and health care surrogate designation. Ethical issues impacting care: Patient in increasingly confused/delirious. Has occasional more lucid moments at the very least will need decision making to be shared. . Important Contacts: Ric Jarrell (spouse) (reported primary health care surrogate) [phone] Keyshawn (brother) (reported alternate health care surrogate) [phone] Snow (cousin) . Prognosis: Since Februrary this patient with ESRD on dialysis and severe peripheral vascular disease and CAD has spent more time in the hospital than out. She she undergone several vascular surgeries including recent right AKA amputation but continues to suffer from severe pain, infections, delirium. She has a necrotic appearing wound on the left thigh at vascular surgery believes may be ischemic and therefore with a very poor prognosis. Based on the history available to me, goals expressed by family members, and current clinical situation, the chances of her returning to the quality of life that she would feel was worth fighting for is very remote. Patient would be eligible for hospice services at such time that goals are primarily comfort oriented. . Code Status: Full Code Plan: == Code Status: FULL CODE. Patient reportedly elected full code status at time of hospital admission. She has not discussed this recently and has been too confused to truly understand per family. == Decision making: Patient has become increasingly confused and delirious. She has periods of answering simple questions appropriately, but I do not believe she has been able to comprehend her current status, weigh the benefits / burdens of treatment options, and be relatively consistent in her responses. At the very least, all decision making should be shared with her health care surrogate. We do not have copies of the advance directive on file, but family agrees that the patient has listed her spouse as the primary health care surrogate and brother as the alternate. == Goals of medical treatment: Patient is unable to independently guide us regarding goals. Family wants more information on prognosis but at this point are not interested in further surgeries and are contemplating whether or not it is time to withdraw all life prolonging therapies and focus on "comfort measures only." == Symptoms * Pain: Patient cannot quantify or qualify pain . From observers , pain appears to be primarily in the left lower extremity at the different wound sites. She is extremely painful with any movement and cries out per family. Opoids appear to help pain a little but seem to be adding to confusion/delirium. * Delirium: Probably multi-factorial. Contributing factors include infection, medications, uremia,pain, etc. == Plans * I promised family I would try to work with attending and specialists and get them a better sense of overall prognosis and what type of functional status to expect going forward. * I have spoken with Dr. Rodrigues regarding prognosis and wound healing. He feels the left thigh wound is likely ischemic and does not feel there is much to offer to address this. He wants to discuss case with Dr. Brothers who knows patient and family better . * I have placed a call to Dr. Brothers. Family trusts Dr. Brothers implicitly since he has been involved with the patient for so many years. If he recommends ongoing aggressive care or a transition to primarily comfort measures , family is likely going to follow his guidance. * Discussed options, including hospice care, should the patient/family decide to forego further aggressive care. * If vascular surgeons feel that prognosis is poor, would recommend hospice consult -- family is considering cessation of dialysis and hospice care center placement . * May want to consider hydromorphone as her primary opioid rather than oxycodone care giver her renal failure -- 2mg po/sl q 3 hours prn pain/sob * Would try and avoid morphine which family feels is the opioid which most exacerbates her delirium * Recommend DC psyllium. Recommend starting Lucinda-colace scheduled BID * May want to consider scheduling haloperidol 0.5 mg twice daily po/sl to prevent delirium at this time. * If pain remains an issue on hydromorphone, would schedule methadone 2.5 mg po/ sl q 12 hours ATC. == Will readdress code status after vascular surgeons provide updated guidance on prognosis and anticipated functional status. == Palliative care will continue to follow to assist with symptom management and to further clarify goals of medical treatment as the clinical course evolves. . Appreciation Thank you for the opportunity to participate in the care of Mary Jarrell. Attestation Attestation: To help prompt me to consider important information that might be impacting today's encounter and assessment, information from prior notes written by myself or my colleagues may have been "brought forward" into today's note. My signature on this note, however, is an attestation that I personally performed the exam, history, and/or decision-making noted today, and, unless otherwise indicated, the interactions with patient, family, and staff as well as the review of records all occurred today. I also attest that the listed assessment and stated plan reflect my best clinical judgment today based on the combination of historical information, prior notes, and today's exam/ interactions. When time spent is documented, it refers only to time spent today by the signer, or if indicated, combined time spent today by collaborating physician/nurse practitioner.
[2018-02-07] MEDS: Heparin - SQ 10,000 UNITS/ML Vial SQ SCH ×2 (00:36→13:23)
[2018-02-07] MEDS: Levothyroxine 125 MCG Tablet PO SCH (06:06)
[2018-02-07 06:48] LABS: Baso # (Auto) 0.1 th/mm3 (0.0-0.2); Eos # (Auto) 0.3 th/mm3 (0.0-0.4); Eos % (Auto) 2.5 % (0.0-4.0); Hematocrit 30.4 % (35.0-46.0); Hemoglobin 9.7 gm/dL (11.6-15.3); Lymph # (Auto) 1.7 th/mm3 (1.0-4.8); Lymph % (Auto) 13.7 % (9.0-44.0); Mean Corpuscular HGB Conc 31.9 % (32.0-36.0); Mean Corpuscular Hemoglobin 28.6 pg (27.0-34.0); Mean Corpuscular Volume 89.5 fL (80.0-100.0); Mean Platelet Volume 7.9 fL (7.0-11.0); Mono # (Auto) 2.1 th/mm3 (0.0-0.9); Mono % (Auto) 17.1 % (0.0-8.0); Neut # (Auto) 8.2 th/mm3 (1.8-7.7); Neut % (Auto) 65.7 % (16.0-70.0); Platelet Count 257 th/mm3 (150-450); Red Blood Count 3.39 mil/mm3 (4.00-5.30); Red Cell Distribution Width 19.7 % (11.6-17.2); White Blood Count 12.5 th/mm3 (4.0-11.0)
[2018-02-07 07:08] LABS: Calcium 7.9 mg/dL (8.5-10.1); Carbon Dioxide 31.4 meq/L (21.0-32.0); Magnesium 1.7 mg/dL (1.5-2.5); Potassium 3.8 meq/L (3.5-5.1)
[2018-02-07] MEDS: Insulin NovoLOG Aspart Correctional Sugar Inj SQ SCH ×2 (07:26→13:24)
[2018-02-07] MEDS ORDERED: Aspirin 325 MG Tablet PO ONE (08:00)
[2018-02-07] MEDS ORDERED: Aluminum/Magnesium/Simethacone Susp 30 ML UDC PO PRN (08:14)
--- NOTE | 2018-02-07 08:49 | XR ---
EXAM DATE: 02/07/2018 8:22 AM EDT AGE/SEX: 72 years / Female INDICATIONS: Chest pain, shortness of breath, and burning in chest. CLINICAL DATA: This is the patient's subsequent encounter. Patient reports that signs and symptoms h ave been present for 1 day and indicates a pain score of 10/10. MEDICAL/SURGICAL HISTORY: Diabetes. Chronic renal failure. Hypertension. Hypercholesteremia, Le ft groin wound infection. Cholecystectomy. Appendectomy. Popliteal arterial bypass graft, Coronary a rtery bypass graft COMPARISON: [facility], CHEST 1V SINGLE AP, 12/22/2017. . FINDINGS: Significant increase opacity has developed in both lung bases. Heart is moderately to markedly enlarg ed. Right-sided Purdy catheter remains in place. Median sternotomy wires are seen from previous open heart surgery. CONCLUSION: Cardiomegaly with bibasilar opacity and suspected effusions which may indicate the presence of acute congestive heart failure. Purdy catheter in place. Electronically signed by: Red Wesley MD 02/07/2018 8:47 AM EDT
[2018-02-07 09:34] LABS: Troponin I 0.07 ng/mL (0.02-0.05)
[2018-02-07] MEDS: Carvedilol 6.25 MG Tablet PO SCH (10:07)
[2018-02-07] MEDS: Heparin Central Flush 100 UNIT/ML 5 ML Vial IV.FLUSH SCH (10:07)
[2018-02-07] MEDS: Insulin Detemir Inj 1,000 UNIT/10 ML Vial SQ SCH (10:58)
[2018-02-07] MEDS: Gabapentin 100 MG Capsule PO SCH (10:59)
[2018-02-07] MEDS: Famotidine 20 MG Tablet PO SCH (10:59)
[2018-02-07] MEDS: Collagenase Oint 30 GM Tube TOPICAL SCH (11:01)
--- NOTE | 2018-02-07 11:16 | P.PNPAL ---
Reason for Visit Reason for visit: a. To assist with evaluation and management of symptoms including: pain; constipation; delirium b. To assist medical decision maker(s) with: better understanding of current medical conditions; weighing benefits/burdens of medical treatment options; making medical treatment decisions. Subjective Subjective/Interval History: Ms. Jarrell is unable to give me accurate pain reporting this AM. She appears cognitively with it at times but mid conversation hallucinates that she is seeing rabbits in the room. She tells me and her family about the witch that repeatedly comes in the room and "chains her down." She initially tells me she was having chest pain and then tells me she was not. She denies SOB. She ate a reasonable amount of breakfast. Bowels moved today. I have spoken with Dr. Brothers today who visited the patient and spoke to family. Dr. Brothers, like Dr. Rodrigues, does not think the left thigh room can be healed. He feels she would likely have continued issues with severe pain and infection. He agrees with transitioning to "comfort measures only" if family is all in agreement. I attempted a "goals of medical treatment" discussion with patient in front of her family. She remains understandably ambivalent and her confusion makes it difficult to interpret. She says she is "not ready to ," but thinks she will be able to go home and have Xmas there. She likes the idea of not having to go through any more dialysis, but also knows that she won't survive long if she stops. and cousin tell her how hard it is to see her suffering so much every day. She seemed open to the hospice care center but wanted her to visit it first. . Family/Friend Interactions: Spoke with patient in front of and sister, then with alone, then with all together again. Discussed goals of medical treatment; hospice options; prognosis; how best to care for her going forward. Family conference time approximately 40 minutes. . Advance Directives Living Will: Completed, but not made available Health Care Surrogate: Completed, but not made available (Family tells me that patient has completed a directive that is a typical living will and lists spouse as prmiary surrogate and brother as alternate.) Objective Vital Signs: Vital Signs 02/06/18 16:00 02/06/18 20:00 02/07/18 00:00 Temperature 98.4 F 97.9 F 97.2 F L Pulse Rate 62 57 L 55 L Respiratory Rate 18 18 16 Blood Pressure 125/60 112/57 L 107/53 L Pulse Oximetry 95 95 98 02/07/18 04:00 Temperature 97.7 F Pulse Rate 56 L Respiratory Rate 18 Blood Pressure 112/55 L Pulse Oximetry 98 Intake & Output 02/06/18 02/07/18 02/07/18 18:59 06:59 18:59 Intake Total 820 / 820 100 / 100 Output Total 225 / 225 Balance 820 / 820 -125 / -125 Weight 112.6 kg Intake: IV 100 / 100 100 / 100 Diflucan 200 mg Premix Bag 100 100 / 100 ML @ 100 mls/hr IV.SIG Q24H RICARDO Rx#:[id number] Merrem Inj 1,000 MG In NS Inj 100 / 100 100 ML @ 200 mls/hr IV.SIG Q24H RICARDO Rx#:[id number] Oral 720 / 720 Output: Urine Amount (Catheter) 225 / 225 Indwelling Urethral Catheter 225 / 225 Other: # Voids 0 Date of Last Bowel Movement 02/06/18 # Incontinent Bowel Movements 1 Physical Exam: CONSTITUTIONAL/GENERAL: This is an adequately nourished patient, confused, comfortable appearing while still, but grimacing with any movement. TUBES/LINES/DRAINS: AV fistula RUE; abbott catheter; right chest port SKIN: No jaundice, rashes. Ecchymoses on upper extremities. Wounds left groin ; left thigh; posterior sacrum . Skin temperature appropriate. Not diaphoretic. HEAD: Atraumatic. Normocephalic. EYES: Pupils equal and round. Extraocular motions intact. No scleral icterus. No injection or drainage. Fundi not examined. ENT: Hearing grossly normal. Nose without bleeding or purulent drainage. Throat without visible erythema, exudates, masses, or lesions. NECK: Trachea midline. Supple, nontender. CARDIOVASCULAR: Regular rate and rhythm without murmurs, gallops, or rubs. No JVD. Cannot palpate peripheral pulses in left foot. Radial artery pulses are palpable. RESPIRATORY/CHEST: Symmetric, unlabored respirations. Clear to auscultation. Breath sounds equal bilaterally. No wheezes, rales, or rhonchi. GASTROINTESTINAL: Abdomen obese, soft, non-tender, nondistended. No hepato- splenomegaly, or palpable masses. No guarding. Bowel sounds present. GENITOURINARY: Without palpable bladder distension. Abbott catheter in place. MUSCULOSKELETAL: s/p Right AKA. LLE with wounds as noted. No edema. No joint tenderness or effusion noted. LYMPHATICS: Not examined. NEUROLOGICAL: Aome questions answered appropriately but patient having some hallucinations and paranoia. Follows simple commands. Limited movement because of pain. PSYCHIATRIC: Appropriately tearful when considering /dying. Visual hallucinations -- saw bunnies in the room. Some paranoia -- says there is witch that comes in and chains her down at night. . Diagnostic Tests Laboratory: Laboratory Results - last 72 hr 02/04/18 02/04/18 02/04/18 11:41 16:53 22:35 WBC RBC Hgb Hct MCV MCH MCHC RDW Plt Count MPV Neut % (Auto) Lymph % (Auto) [place] % (Auto) Eos % (Auto) Baso % (Auto) Neut # (Auto) Lymph # (Auto) [place] # (Auto) Eos # (Auto) Baso # (Auto) WBC Differential Differential Comment Sodium Potassium Chloride Carbon Dioxide Anion Gap BUN Creatinine Estimated GFR POC Glucose 158 H 173 H 151 H Random Glucose Calcium Magnesium Total Bilirubin AST ALT Alkaline Phosphatase Total Creatine Kinase Troponin I Total Protein Albumin Urine Color Urine Clarity Urine pH Ur Specific [place] Urine Protein Urine Glucose (UA) Urine Ketones Urine Occult Blood Urine Nitrate Urine Bilirubin Urine Urobilinogen Ur Leukocyte Esterase Urine RBC Urine WBC Urine WBC Clumps Ur Squamous Epith Cells Amorphous Sediment Urine Bacteria Micro UA Comment Ur Microscopic Review Urine Culture Comments 02/05/18 02/05/18 02/05/18 07:21 10:45 11:10 WBC 12.6 H RBC 3.49 L Hgb 10.0 L Hct 31.2 L MCV 89.5 MCH 28.7 MCHC 32.0 RDW 18.6 H Plt Count 251 MPV 8.1 Neut % (Auto) 69.6 Lymph % (Auto) 14.5 [place] % (Auto) 13.0 H Eos % (Auto) 2.1 Baso % (Auto) 0.8 Neut # (Auto) 8.8 H Lymph # (Auto) 1.8 [place] # (Auto) 1.6 H Eos # (Auto) 0.3 Baso # (Auto) 0.1 WBC Differential . Differential Comment Auto diff final Sodium Potassium Chloride Carbon Dioxide Anion Gap BUN Creatinine Estimated GFR POC Glucose 131 H Random Glucose Calcium Magnesium Total Bilirubin AST ALT Alkaline Phosphatase Total Creatine Kinase Troponin I Total Protein Albumin Urine Color Brown H Urine Clarity Hazy H Urine pH 5.0 Ur Specific [place] 1.019 Urine Protein 100 H Urine Glucose (UA) 50 Urine Ketones Trace H Urine Occult Blood Small H Urine Nitrate Negative Urine Bilirubin Negative Urine Urobilinogen 2.0 H Ur Leukocyte Esterase Moderate H Urine RBC Less than 1 Urine WBC 44 H Urine WBC Clumps Moderate H Ur Squamous Epith Cells <1 Amorphous Sediment Few H Urine Bacteria Occasional H Micro UA Comment Culture indicated Ur Microscopic Review Not Reportable Urine Culture Comments Culture indicated 02/05/18 02/05/18 02/05/18 11:10 11:35 16:30 WBC RBC Hgb Hct MCV MCH MCHC RDW Plt Count MPV Neut % (Auto) Lymph % (Auto) [place] % (Auto) Eos % (Auto) Baso % (Auto) Neut # (Auto) Lymph # (Auto) [place] # (Auto) Eos # (Auto) Baso # (Auto) WBC Differential Differential Comment Sodium 136 Potassium 4.2 Chloride 96 L Carbon Dioxide 30.7 Anion Gap 9 BUN 40 H Creatinine 4.01 H Estimated GFR 11 L POC Glucose 115 H 112 H Random Glucose 103 Calcium 7.9 L Magnesium 1.8 Total Bilirubin 0.8 AST 10 L ALT Less than 6 L Alkaline Phosphatase 336 H Total Creatine Kinase Troponin I Total Protein 5.2 L Albumin 1.7 L Urine Color Urine Clarity Urine pH Ur Specific [place] Urine Protein Urine Glucose (UA) Urine Ketones Urine Occult Blood Urine Nitrate Urine Bilirubin Urine Urobilinogen Ur Leukocyte Esterase Urine RBC Urine WBC Urine WBC Clumps Ur Squamous Epith Cells Amorphous Sediment Urine Bacteria Micro UA Comment Ur Microscopic Review Urine Culture Comments 02/05/18 02/06/18 02/06/18 20:32 07:28 11:51 WBC RBC Hgb Hct MCV MCH MCHC RDW Plt Count MPV Neut % (Auto) Lymph % (Auto) [place] % (Auto) Eos % (Auto) Baso % (Auto) Neut # (Auto) Lymph # (Auto) [place] # (Auto) Eos # (Auto) Baso # (Auto) WBC Differential Differential Comment Sodium Potassium Chloride Carbon Dioxide Anion Gap BUN Creatinine Estimated GFR POC Glucose 191 H 94 89 Random Glucose Calcium Magnesium Total Bilirubin AST ALT Alkaline Phosphatase Total Creatine Kinase Troponin I Total Protein Albumin Urine Color Urine Clarity Urine pH Ur Specific [place] Urine Protein Urine Glucose (UA) Urine Ketones Urine Occult Blood Urine Nitrate Urine Bilirubin Urine Urobilinogen Ur Leukocyte Esterase Urine RBC Urine WBC Urine WBC Clumps Ur Squamous Epith Cells Amorphous Sediment Urine Bacteria Micro UA Comment Ur Microscopic Review Urine Culture Comments 02/06/18 02/06/18 02/07/18 16:53 19:58 06:12 WBC 12.5 H RBC 3.39 L Hgb 9.7 L Hct 30.4 L MCV 89.5 MCH 28.6 MCHC 31.9 L RDW 19.7 H Plt Count 257 MPV 7.9 Neut % (Auto) 65.7 Lymph % (Auto) 13.7 [place] % (Auto) 17.1 H Eos % (Auto) 2.5 Baso % (Auto) 1.0 Neut # (Auto) 8.2 H Lymph # (Auto) 1.7 [place] # (Auto) 2.1 H Eos # (Auto) 0.3 Baso # (Auto) 0.1 WBC Differential . Differential Comment Auto diff final Sodium Potassium Chloride Carbon Dioxide Anion Gap BUN Creatinine Estimated GFR POC Glucose 140 H 163 H Random Glucose Calcium Magnesium Total Bilirubin AST ALT Alkaline Phosphatase Total Creatine Kinase Troponin I Total Protein Albumin Urine Color Urine Clarity Urine pH Ur Specific [place] Urine Protein Urine Glucose (UA) Urine Ketones Urine Occult Blood Urine Nitrate Urine Bilirubin Urine Urobilinogen Ur Leukocyte Esterase Urine RBC Urine WBC Urine WBC Clumps Ur Squamous Epith Cells Amorphous Sediment Urine Bacteria Micro UA Comment Ur Microscopic Review Urine Culture Comments 02/07/18 02/07/18 02/07/18 06:12 07:25 08:15 WBC RBC Hgb Hct MCV MCH MCHC RDW Plt Count MPV Neut % (Auto) Lymph % (Auto) [place] % (Auto) Eos % (Auto) Baso % (Auto) Neut # (Auto) Lymph # (Auto) [place] # (Auto) Eos # (Auto) Baso # (Auto) WBC Differential Differential Comment Sodium 138 Potassium 3.8 Chloride 98 Carbon Dioxide 31.4 Anion Gap 9 BUN 30 H Creatinine 3.26 H Estimated GFR 14 L POC Glucose 125 H Random Glucose 124 H Calcium 7.9 L Magnesium 1.7 Total Bilirubin AST ALT Alkaline Phosphatase Total Creatine Kinase Troponin I Cancelled Total Protein Albumin Urine Color Urine Clarity Urine pH Ur Specific [place] Urine Protein Urine Glucose (UA) Urine Ketones Urine Occult Blood Urine Nitrate Urine Bilirubin Urine Urobilinogen Ur Leukocyte Esterase Urine RBC Urine WBC Urine WBC Clumps Ur Squamous Epith Cells Amorphous Sediment Urine Bacteria Micro UA Comment Ur Microscopic Review Urine Culture Comments 02/07/18 08:15 WBC RBC Hgb Hct MCV MCH MCHC RDW Plt Count MPV Neut % (Auto) Lymph % (Auto) [place] % (Auto) Eos % (Auto) Baso % (Auto) Neut # (Auto) Lymph # (Auto) [place] # (Auto) Eos # (Auto) Baso # (Auto) WBC Differential Differential Comment Sodium Potassium Chloride Carbon Dioxide Anion Gap BUN Creatinine Estimated GFR POC Glucose Random Glucose Calcium Magnesium Total Bilirubin AST ALT Alkaline Phosphatase Total Creatine Kinase 27 Troponin I 0.07 H Total Protein Albumin Urine Color Urine Clarity Urine pH Ur Specific [place] Urine Protein Urine Glucose (UA) Urine Ketones Urine Occult Blood Urine Nitrate Urine Bilirubin Urine Urobilinogen Ur Leukocyte Esterase Urine RBC Urine WBC Urine WBC Clumps Ur Squamous Epith Cells Amorphous Sediment Urine Bacteria Micro UA Comment Ur Microscopic Review Urine Culture Comments Result Diagrams: 02/07/18 06:12 02/07/18 06:12 Microbiology: Microbiology 02/05/18 10:45 Urine Culture - Final Clean Catch Urine No growth in 48 hours Imaging: ITS Impressions Femur CT 01/12/18 00:00 CONCLUSION: 1. Soft tissue defect in the anterior upper left thigh and the medial distal left thigh at the level of the knee. 2. Diffuse subcutaneous soft tissue edema. No drainable abscess identified. Aorta w/Runoff CTA 01/15/18 00:00 CONCLUSION: 1. Diffuse atherosclerotic disease with moderate distal aortic stenosis at the bifurcation. 2. Bilateral moderate common iliac artery stenosis, likely overestimated due to degree of calcified plaque. 3. Left femoral to above-knee popliteal artery bypass graft with critical stenosis of the proximal anastomosis and mild stenosis of the distal anastomosis. 4. Diffuse right SFA disease with tandem moderate stenoses in the proximal thigh and tandem severe stenoses in the distal thigh. Diffuse right popliteal artery disease. 5. Limited single vessel runoff on the right. The peroneal artery with reconstitution of the anterior tibial artery in the distal calf. 6. Limited two-vessel runoff on the left. Diffusely diseased posterior tibial and peroneal arteries. 7. Stable 10 mm nodule in the right lung base. Follow-up examination in 3-6 months is again recommended to document stability. 8. Stable additional ancillary findings, as above. Extremity Arterial Study 01/15/18 00:00 CONCLUSION: Findings of severe disease on the right side with nondiagnostic evaluation on the left. CT angiography of the abdominal aorta and lower extremities is recommended for further evaluation if clinically indicated. Head CT 01/16/18 00:00 CONCLUSION: 1. No acute findings in the brain. . Foot X-Ray 01/20/18 00:00 CONCLUSION: No acute findings. No evidence of bony destruction or new periosteal reaction. Shunt Study 01/23/18 15:58 CONCLUSION: 1. Uncomplicated evaluation of the fistula as above. 2. The arterial inflow, the proximal outflow from the fistula in the venous outflow centrally all appear adequate. There are some areas of mild narrowing as described above. Purdy Line Insertion 01/26/18 00:00 CONCLUSION: Uncomplicated ultrasound and fluoroscopic guided Purdy catheter placement as above. Chest X-Ray 02/07/18 00:00 CONCLUSION: Cardiomegaly with bibasilar opacity and suspected effusions which may indicate the presence of acute congestive heart failure. Purdy catheter in place. Procedures: Right AKA 01/31/18 . Assessment and Plan - Disease Oriented Problem List (1) Post op infection (2) ESRD (end stage renal disease) on dialysis (3) DM (diabetes mellitus) (4) Peripheral vascular disease of lower extremity with ulceration (5) Coronary artery disease (6) Retinopathy due to secondary diabetes - Symptom Scale (1) Pain 0-10 Scale: Unable to quantify (2) Delirium 0-10 Scale: Unable to quantify Pertinent Non-Medical Issues: Psychosocial: Born here at [facility]. 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 55 years to Ric.. Two sons-- one lives locally, one in [place]. 2 Grandchildren. 1 brother -- Keyshawn - lives in [facility]. Spiritual: Hindu. Pt's brother provides the spiritual support. Legal: Family reports patient has a living will and health care surrogate designation. Ethical issues impacting care: Patient in increasingly confused/delirious. Has occasional more lucid moments at the very least will need decision making to be shared. . Important Contacts: Ric Jarrell (spouse) (reported primary health care surrogate) [phone] Keyshawn (brother) (reported alternate health care surrogate) [phone] Snow (cousin) [phone] . Prognosis: Since Februrary this patient with ESRD on dialysis and severe peripheral vascular disease and CAD has spent more time in the hospital than out. She she undergone several vascular surgeries including recent right AKA amputation but continues to suffer from severe pain, infections, delirium. She has a necrotic appearing wound on the left thigh at vascular surgery believes may be ischemic and therefore with a very poor prognosis. Based on the history available to me, goals expressed by family members, and current clinical situation, the chances of her returning to the quality of life that she would feel was worth fighting for is very remote. Patient would be eligible for hospice services at such time that goals are primarily comfort oriented. . Code Status: Full Code Plan: == Code Status: FULL CODE. Patient reportedly elected full code status at time of hospital admission. She has not discussed this recently and has been too confused to truly understand per family. == Decision making: Patient has become increasingly confused and delirious. She has periods of answering simple questions appropriately, but I do not believe she has been able to comprehend her current status, weigh the benefits / burdens of treatment options, and be relatively consistent in her responses. At the very least, all decision making should be shared with her health care surrogate. We do not have copies of the advance directive on file, but family agrees that the patient has listed her spouse as the primary health care surrogate and brother as the alternate. == Goals of medical treatment: Patient is unable to independently guide us regarding goals. Family has spoken with Dr. Brothers and feel that continued aggressive care will only serve to prolong a painful dying process. They would like hospice care in a hospice care center. == Symptoms * Pain: Patient cannot quantify or qualify pain . From observers , pain appears to be primarily in the left lower extremity at the different wound sites. She is extremely painful with any movement and cries out per family. Opioids appear to help pain a little but seem to be adding to confusion/ delirium. * Delirium: Probably multi-factorial. Contributing factors include infection, medications, uremia,pain, etc. * Constipation -- exacerbated by opioid usage. == Plans * Family is leaning toward hospice enrollment and would like care center. Patient remains ambivalent but is having a very difficult time thinking this through because of confusion and paranoia. * Have asked for a hospice consult with plans to transfer to the [facility] when patient/family ready. * Offered low dose benzo and /or neuroleptic to help with hallucinations / agitation. Family declines -- they are hoping patient will be awake /alert when brother arrives later today. * If patient remains here, may want to consider hydromorphone as her primary opioid rather than oxycodone [employer] her renal failure -- 2mg po/sl q 3 hours prn pain/sob * Would try and avoid morphine which family feels is the opioid which most exacerbates her delirium * Recommend DC psyllium. Recommend starting Lucinda-colace scheduled BID * May want to consider scheduling haloperidol 0.5 mg twice daily po/sl to prevent delirium at this time. * If pain remains an issue on hydromorphone, would schedule methadone 2.5 mg po/ sl q 12 hours ATC. == Will readdress code status if/when hospice decision is made later today. == Palliative care will continue to follow to assist with symptom management and to further clarify goals of medical treatment as the clinical course evolves. . Time Spent Total Floor Time (mins): 50 (Total floor time included chart review; pt exam; above referenced discussion with patients/family; call to hospice) Face to Face Time (mins): 15 >50% Time in Counseling or Coordination of Care: Yes Attestation Attestation: To help prompt me to consider important information that might be impacting today's encounter and assessment, information from prior notes written by myself or my colleagues may have been "brought forward" into today's note. My signature on this note, however, is an attestation that I personally performed the exam, history, and/or decision-making noted today, and, unless otherwise indicated, the interactions with patient, family, and staff as well as the review of records all occurred today. I also attest that the listed assessment and stated plan reflect my best clinical judgment today based on the combination of historical information, prior notes, and today's exam/ interactions. When time spent is documented, it refers only to time spent today by the signer, or if indicated, combined time spent today by collaborating physician/nurse practitioner.
--- NOTE | 2018-02-07 11:16 | P.PNID ---
Subjective Remarks: Patient is awake. Alert. Notes that she continues to have pain. No fever. Urine culture has no growth. Patient noted to not have vessel in the RLE that can be bypassed on attempts at revascularization 01/24/2018. 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 HISTORY OF PRESENT ILLNESS: This is a 72-year-old white female who is known to me from previous hospitalizations. The patient was last admitted for a dehisced wound at the left tibia from a vascular procedure at the end of November. She had Pseudomonas aeruginosa cultured from the leg and also Klebsiella pneumoniae. She was discharged on cefepime, which she was receiving at hemodialysis center. She developed redness of her right foot and it became progressively worse with increased erythema and purplish discoloration at the right fifth toe and at the base of the fifth toe as well. 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 Allergies/Adverse Reactions: Allergies amlodipine Allergy (Severe, Verified 12/22/17 22:56) Edema, Generalized adhesive tape Allergy (Unknown, Verified 12/22/17 22:56) Generalized Itching Redness Objective Vital Signs 02/06/18 16:00 02/06/18 20:00 02/07/18 00:00 Temperature 98.4 F 97.9 F 97.2 F L Pulse Rate 62 57 L 55 L Respiratory Rate 18 18 16 Blood Pressure 125/60 112/57 L 107/53 L Pulse Oximetry 95 95 98 02/07/18 04:00 Temperature 97.7 F Pulse Rate 56 L Respiratory Rate 18 Blood Pressure 112/55 L Pulse Oximetry 98 Intake & Output 02/06/18 02/07/18 02/07/18 18:59 06:59 18:59 Intake Total 820 / 820 100 / 100 Output Total 225 / 225 Balance 820 / 820 -125 / -125 Weight 112.6 kg Intake: IV 100 / 100 100 / 100 Diflucan 200 mg Premix Bag 100 100 / 100 ML @ 100 mls/hr IV.SIG Q24H [facility] Rx#:[id number] Merrem Inj 1,000 MG In NS Inj 100 / 100 100 ML @ 200 mls/hr IV.SIG Q24H [facility] Rx#:[id number] Oral 720 / 720 Output: Urine Amount (Catheter) 225 / 225 Indwelling Urethral Catheter 225 / 225 Other: # Voids 0 Date of Last Bowel Movement 02/06/18 # Incontinent Bowel Movements 1 02/05/18 10:45 Clean Catch Urine Urine Culture - Final No growth in 48 hours Lab - Hematology Results 02/05/18 02/07/18 11:10 06:12 WBC 12.6 H 12.5 H RBC 3.49 L 3.39 L Hgb 10.0 L 9.7 L Hct 31.2 L 30.4 L MCV 89.5 89.5 MCH 28.7 28.6 MCHC 32.0 31.9 L RDW 18.6 H 19.7 H Plt Count 251 257 MPV 8.1 7.9 Neut % (Auto) 69.6 65.7 Lymph % (Auto) 14.5 13.7 [place] % (Auto) 13.0 H 17.1 H Eos % (Auto) 2.1 2.5 Baso % (Auto) 0.8 1.0 Neut # (Auto) 8.8 H 8.2 H Lymph # (Auto) 1.8 1.7 [place] # (Auto) 1.6 H 2.1 H Eos # (Auto) 0.3 0.3 Baso # (Auto) 0.1 0.1 WBC Differential . . Differential Comment Auto diff final Auto diff final Lab - Chemistry Results 02/05/18 02/05/18 02/05/18 11:10 11:35 16:30 Sodium 136 Potassium 4.2 Chloride 96 L Carbon Dioxide 30.7 Anion Gap 9 BUN 40 H Creatinine 4.01 H Estimated GFR 11 L POC Glucose 115 H 112 H Random Glucose 103 Calcium 7.9 L Magnesium 1.8 Total Bilirubin 0.8 AST 10 L ALT Less than 6 L Alkaline Phosphatase 336 H Total Creatine Kinase Troponin I Total Protein 5.2 L Albumin 1.7 L 02/05/18 02/06/18 02/06/18 20:32 07:28 11:51 Sodium Potassium Chloride Carbon Dioxide Anion Gap BUN Creatinine Estimated GFR POC Glucose 191 H 94 89 Random Glucose Calcium Magnesium Total Bilirubin AST ALT Alkaline Phosphatase Total Creatine Kinase Troponin I Total Protein Albumin 02/06/18 02/06/18 02/07/18 16:53 19:58 06:12 Sodium 138 Potassium 3.8 Chloride 98 Carbon Dioxide 31.4 Anion Gap 9 BUN 30 H Creatinine 3.26 H Estimated GFR 14 L POC Glucose 140 H 163 H Random Glucose 124 H Calcium 7.9 L Magnesium 1.7 Total Bilirubin AST ALT Alkaline Phosphatase Total Creatine Kinase Troponin I Total Protein Albumin 02/07/18 02/07/18 02/07/18 07:25 08:15 08:15 Sodium Potassium Chloride Carbon Dioxide Anion Gap BUN Creatinine Estimated GFR POC Glucose 125 H Random Glucose Calcium Magnesium Total Bilirubin AST ALT Alkaline Phosphatase Total Creatine Kinase 27 Troponin I Cancelled 0.07 H Total Protein Albumin Imaging: ITS Impressions Femur CT 01/12/18 00:00 CONCLUSION: 1. Soft tissue defect in the anterior upper left thigh and the medial distal left thigh at the level of the knee. 2. Diffuse subcutaneous soft tissue edema. No drainable abscess identified. Aorta w/Runoff CTA 01/15/18 00:00 CONCLUSION: 1. Diffuse atherosclerotic disease with moderate distal aortic stenosis at the bifurcation. 2. Bilateral moderate common iliac artery stenosis, likely overestimated due to degree of calcified plaque. 3. Left femoral to above-knee popliteal artery bypass graft with critical stenosis of the proximal anastomosis and mild stenosis of the distal anastomosis. 4. Diffuse right SFA disease with tandem moderate stenoses in the proximal thigh and tandem severe stenoses in the distal thigh. Diffuse right popliteal artery disease. 5. Limited single vessel runoff on the right. The peroneal artery with reconstitution of the anterior tibial artery in the distal calf. 6. Limited two-vessel runoff on the left. Diffusely diseased posterior tibial and peroneal arteries. 7. Stable 10 mm nodule in the right lung base. Follow-up examination in 3-6 months is again recommended to document stability. 8. Stable additional ancillary findings, as above. Extremity Arterial Study 01/15/18 00:00 CONCLUSION: Findings of severe disease on the right side with nondiagnostic evaluation on the left. CT angiography of the abdominal aorta and lower extremities is recommended for further evaluation if clinically indicated. Head CT 01/16/18 00:00 CONCLUSION: 1. No acute findings in the brain. . Foot X-Ray 01/20/18 00:00 CONCLUSION: No acute findings. No evidence of bony destruction or new periosteal reaction. Shunt Study 01/23/18 15:58 CONCLUSION: 1. Uncomplicated evaluation of the fistula as above. 2. The arterial inflow, the proximal outflow from the fistula in the venous outflow centrally all appear adequate. There are some areas of mild narrowing as described above. Purdy Line Insertion 01/26/18 00:00 CONCLUSION: Uncomplicated ultrasound and fluoroscopic guided Purdy catheter placement as above. Chest X-Ray 02/07/18 00:00 CONCLUSION: Cardiomegaly with bibasilar opacity and suspected effusions which may indicate the presence of acute congestive heart failure. Purdy catheter in place. Physical Exam: GENERAL: Awake and alert. HEENT: Head is atraumatic. Extraocular movements grossly intact. Pupils reactive to light. No icterus. No conjunctival erythema. Oropharynx mucosa moist. NECK: Supple without adenopathy. LUNGS: Clear to auscultation. HEART: Regular S1, S2, without murmurs, rubs or gallops. ABDOMEN: Bowel sounds present, obese, soft, nontender. EXTREMITIES: The left inner thigh wound has very clean beefy red granulation tissue. Little eschar at the lower edge. The left inner tibial dehisced incision is very clean and has good granulation. 2 tiny specks of necrosis at the edge. Left lateral thigh has eschar and increased redness. Post R. BKA. SKIN: No diffuse rash. NEUROLOGIC: No gross focal finding. PSYCHIATRIC: calm, and cooperative. Assessment and Plan - Plan IMPRESION: 1. Severe peripheral vascular disease, now involving the right foot with gangrene at portion of the right fourth toe and the right fifth toe and base of the right fifth MTP. -Vascular disease not fixable with vascular procedure. 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 2. Open wound of the left inner tibia which grew out Pseudomonas and Klebsiella, sensitive to cefepime in late November. Wound looks good. 3. Chronic open wound of the left inner groin/thigh which has had positive bacteria in the past and was treated with antibiotics and was doing well with dressing changes. Wound looks good. 4. Left lateral thigh ecchymosis/cellulitis/eschar. Does not seem to be improving. 5. Diabetes mellitus. 6. End-stage renal disease on hemodialysis. 7. Decreased mentation. Fluctuating. Urine culture was obtained and has no growth. RECOMMENDATIONS: 1. Continue Meropenem. 2. Continue Diflucan. 3. Monitor wounds and clinical response. 4. Wound care following wounds. Family opting for hospice care. Antibiotics can be stops if she goes to hospice.
--- NOTE | 2018-02-07 12:02 | P.PNNP ---
Subjective Interval history: Patient lying in bed eating popcorn. No verbal complaints. by bedside. Physical Exam Vital signs: Vital Signs 02/06/18 16:00 02/06/18 20:00 02/07/18 00:00 Temperature 98.4 F 97.9 F 97.2 F L Pulse Rate 62 57 L 55 L Respiratory Rate 18 18 16 Blood Pressure 125/60 112/57 L 107/53 L Pulse Oximetry 95 95 98 02/07/18 04:00 Temperature 97.7 F Pulse Rate 56 L Respiratory Rate 18 Blood Pressure 112/55 L Pulse Oximetry 98 Intake & Output 02/06/18 02/07/18 02/07/18 18:59 06:59 18:59 Intake Total 820 / 820 100 / 100 Output Total 225 / 225 Balance 820 / 820 -125 / -125 Weight 112.6 kg Intake: IV 100 / 100 100 / 100 Diflucan 200 mg Premix Bag 100 100 / 100 ML @ 100 mls/hr IV.SIG Q24H [facility] Rx#:[id number] Merrem Inj 1,000 MG In NS Inj 100 / 100 100 ML @ 200 mls/hr IV.SIG Q24H [facility] Rx#:[id number] Oral 720 / 720 Output: Urine Amount (Catheter) 225 / 225 Indwelling Urethral Catheter 225 / 225 Other: # Voids 0 Date of Last Bowel Movement 02/06/18 # Incontinent Bowel Movements 1 Narrative: GENERAL: NAD, CARDIOVASCULAR: Regular rate and rhythm without gallops, or rubs. RESPIRATORY: Breath sounds equal bilaterally. No accessory muscle use. GASTROINTESTINAL: Abdomen soft, non-tender, nondistended. MUSCULOSKELETAL: No cyanosis, status post right AKA. SKIN: Warm and dry. Left inner thigh and leg wounds . - Urinary Catheter Management Straight Cath placed during this visit: no Reason for continuing: Acute urinary retention Indwelling Urethral Catheter Cath placed during this visit: yes, but has since been removed by the nurse Reason for continuing: Acute urinary retention Insertion date: 02/05/18 Insertion time: 11:00 Removal date: 01/24/18 Removal time: 12:50 Assessment and Plan - Assessment (1) ESRD (end stage renal disease) on dialysis Code(s): N18.6 - End stage renal disease; Z99.2 - Dependence on renal dialysis Status: Acute Plan: Continue MWF scheduleA hemodialysis. Palliative care consultation/progress note reviewed. Consensus is patient has a difficult outlook with a poor prognosis because of her current medical issues and peripheral arterial disease as well as ischemic wounds. I discussed with the patient the option of discontinuance of dialysis and end-of -life issues associated with same and potential benefit of hospice. Questions from patient as well as were addressed to their satisfaction. I believe that this patient is an appropriate hospice candidate at this point in time. We will continue dialysis as long as the patient wishes. Should be noted however outpatient dialysis may be very difficult for the patient which will require the patient to be in a chair for prolonged period of time as well as transportation issues there and from with probable associated discomfort. Gadolinium is contraindicated. Medication should be adjusted for the patient's end-stage renal disease when indicated. (2) Peripheral vascular disease of lower extremity with ulceration Code(s): I73.9 - Peripheral vascular disease, unspecified; L97.909 - Non- pressure chronic ulcer of unspecified part of unspecified lower leg with unspecified severity Status: Acute Plan: s/p right AKA 01/31 (3) DM (diabetes mellitus) Code(s): E11.9 - Type 2 diabetes mellitus without complications Status: Acute Plan: Mgmt per primary
--- NOTE | 2018-02-07 13:56 | P.DS ---
Date of admission: 01/13/18 11:10 Primary care physician: Garret Samaniego MD Brief History from admission: 72 y/o WF admitted for intract BL LE pain. Namely right foot and left proximal thigh. Patient was in her usual state of health until about 1 week ago when she began experiencing worsening of the pains in her bilateral lower extremities. She has been unable to bear weight now due to the pain whereas she could normally at least transfer and make to her wheelchair. Now the pain is becoming unbearable. Has associated new onset increasing progressing erythema emerging over RLE from ríos level down covering the right foot. unable to bear wt due to pain. Also has left lateral thigh bruising and induration that is very painful as well. Vomited x3 this week per . no fevers, nor diarrhea. Denies any lower extremity swelling. Denies any shortness of breath. Has been treated for chronic ischemic and infected wounds over her left lower extremity, one that is on anterior proximal left thigh and medial left calf. Is still being treated for them with cefepime with her dialysis sessions for recent klebsiella/ Pseudomonas infection. denies any change in the nature of the drainage from the wounds, no purulence noted. Says that wounds drain on a daily basis. Most recently had multiple hospitalization related to her LE wounds. Had a fempop bypass earlier this summer with subsequent formation of chronic wounds . Family member at bedside states that the patient has been most recently started on [facility] because the pain that she has been having his uncontrolled on the max regimen she can receive not being on hospice. Family member states that she is now on a fentanyl patch and oxycodone. DS: Diagnosis - Discharge Diagnosis (1) Cellulitis Status: Acute (2) ESRD (end stage renal disease) on dialysis Status: Acute (3) HTN (hypertension) Status: Acute (4) DM (diabetes mellitus) Status: Acute (5) Gangrene of right foot Status: Acute DS: Summary Hospital Course: 72 y/o WF admitted for BL LE pain secondary to infection/gangrene. Severe peripheral vascular disease Post right [id number] amputation 01/31/18. Open wound of the left inner tibia which grew out Pseudomonas and Klebsiella, sensitive to cefepime in late November. Chronic open wound of the left inner groin/thigh Left lateral thigh ecchymosis/cellulitis. Stable. Vascular surgeon following Podiatry following Continue statin Continue pain management counselled regarding narcotics Wound care nurse following Antibiotics in place: Meropenem, daptomycin and fluconazole for 4 weeks per ID. Patient not a candidate for hyperbaric oxygen treatment per wound care physician Hypertension Continue Coreg Monitor blood pressures Diabetes type I Continue insulin pump Follow blood sugars Insulin sliding scale Diabetic diet End-stage renal disease Continue dialysis Tuesday. Continue dialysis per nephrology Nephrology following Constipation Chronic. Continue Metamucil Chronic pain Continue pain control. Hospital induced delirium/. Supportive care Right lung base nodule. Repeat CT scan in 3-6 months Urinary retention which could be multifactorial from immobilization, constipation and possible UTI. Abnormal urinalysis follow-up urine culture. Patient already on antimicrobials Atypical CP. Trop .07, chest x-ray independently reviewed by me with congestion and EKG independently reviewed without ST elevation. She is pain-free status post aspirin, sublingual after receiving nitroglycerin and Lasix. Trend cardiac enzymes DVT Prophylaxis Heparin Patient and family sign up for hospice care opted for comfort measures only - Time Spent with Patient Total time spent providing and/or coordinating discharge services: Greater than 30 minutes - Quality: VTE Deep Vein Thrombosis/Pulmonary Embolism Present on Admission: No Exam Vital signs: Vital Signs 02/06/18 16:00 02/06/18 20:00 02/07/18 00:00 Temperature 98.4 F 97.9 F 97.2 F L Pulse Rate 62 57 L 55 L Respiratory Rate 18 18 16 Blood Pressure 125/60 112/57 L 107/53 L Pulse Oximetry 95 95 98 02/07/18 04:00 Temperature 97.7 F Pulse Rate 56 L Respiratory Rate 18 Blood Pressure 112/55 L Pulse Oximetry 98 Intake & Output 02/06/18 02/07/18 02/07/18 18:59 06:59 18:59 Intake Total 820 / 820 100 / 100 Output Total 225 / 225 Balance 820 / 820 -125 / -125 Weight 112.6 kg Intake: IV 100 / 100 100 / 100 Diflucan 200 mg Premix Bag 100 100 / 100 ML @ 100 mls/hr IV.SIG Q24H [facility] Rx#:[id number] Merrem Inj 1,000 MG In NS Inj 100 / 100 100 ML @ 200 mls/hr IV.SIG Q24H [facility] Rx#:[id number] Oral 720 / 720 Output: Urine Amount (Catheter) 225 / 225 Indwelling Urethral Catheter 225 / 225 Other: # Voids 0 Date of Last Bowel Movement 02/06/18 # Incontinent Bowel Movements 1 Narrative: GENERAL: NAD, A&Ox3. CARDIOVASCULAR: Regular rate and rhythm without gallops, or rubs. RESPIRATORY: Breath sounds equal bilaterally. No accessory muscle use. GASTROINTESTINAL: Abdomen soft, non-tender, nondistended. MUSCULOSKELETAL: No cyanosis, status post right AKA. SKIN: Warm and dry. Left inner thigh and leg wounds with good granulation with small areas of necrosis at the edges Results Procedures completed during hospitalization: r AKa Labs on day of discharge: Labs from last 24 hours 02/07/18 02/07/18 02/07/18 11:55 08:15 08:15 WBC RBC Hgb Hct MCV MCH MCHC RDW Plt Count MPV Neut % (Auto) Lymph % (Auto) Saline % (Auto) Eos % (Auto) Baso % (Auto) Neut # (Auto) Lymph # (Auto) Saline # (Auto) Eos # (Auto) Baso # (Auto) WBC Differential Differential Comment Sodium Potassium Chloride Carbon Dioxide Anion Gap BUN Creatinine Estimated GFR POC Glucose 183 H Random Glucose Calcium Magnesium Total Creatine Kinase 27 Troponin I 0.07 H Cancelled 02/07/18 02/07/18 02/07/18 07:25 06:12 06:12 WBC 12.5 H RBC 3.39 L Hgb 9.7 L Hct 30.4 L MCV 89.5 MCH 28.6 MCHC 31.9 L RDW 19.7 H Plt Count 257 MPV 7.9 Neut % (Auto) 65.7 Lymph % (Auto) 13.7 Saline % (Auto) 17.1 H Eos % (Auto) 2.5 Baso % (Auto) 1.0 Neut # (Auto) 8.2 H Lymph # (Auto) 1.7 Saline # (Auto) 2.1 H Eos # (Auto) 0.3 Baso # (Auto) 0.1 WBC Differential . Differential Comment Auto diff final Sodium 138 Potassium 3.8 Chloride 98 Carbon Dioxide 31.4 Anion Gap 9 BUN 30 H Creatinine 3.26 H Estimated GFR 14 L POC Glucose 125 H Random Glucose 124 H Calcium 7.9 L Magnesium 1.7 Total Creatine Kinase Troponin I 02/06/18 02/06/18 19:58 16:53 WBC RBC Hgb Hct MCV MCH MCHC RDW Plt Count MPV Neut % (Auto) Lymph % (Auto) Saline % (Auto) Eos % (Auto) Baso % (Auto) Neut # (Auto) Lymph # (Auto) Saline # (Auto) Eos # (Auto) Baso # (Auto) WBC Differential Differential Comment Sodium Potassium Chloride Carbon Dioxide Anion Gap BUN Creatinine Estimated GFR POC Glucose 163 H 140 H Random Glucose Calcium Magnesium Total Creatine Kinase Troponin I - Impressions ITS Impressions Femur CT 01/12/18 00:00 CONCLUSION: 1. Soft tissue defect in the anterior upper left thigh and the medial distal left thigh at the level of the knee. 2. Diffuse subcutaneous soft tissue edema. No drainable abscess identified. Aorta w/Runoff CTA 01/15/18 00:00 CONCLUSION: 1. Diffuse atherosclerotic disease with moderate distal aortic stenosis at the bifurcation. 2. Bilateral moderate common iliac artery stenosis, likely overestimated due to degree of calcified plaque. 3. Left femoral to above-knee popliteal artery bypass graft with critical stenosis of the proximal anastomosis and mild stenosis of the distal anastomosis. 4. Diffuse right SFA disease with tandem moderate stenoses in the proximal thigh and tandem severe stenoses in the distal thigh. Diffuse right popliteal artery disease. 5. Limited single vessel runoff on the right. The peroneal artery with reconstitution of the anterior tibial artery in the distal calf. 6. Limited two-vessel runoff on the left. Diffusely diseased posterior tibial and peroneal arteries. 7. Stable 10 mm nodule in the right lung base. Follow-up examination in 3-6 months is again recommended to document stability. 8. Stable additional ancillary findings, as above. Extremity Arterial Study 01/15/18 00:00 CONCLUSION: Findings of severe disease on the right side with nondiagnostic evaluation on the left. CT angiography of the abdominal aorta and lower extremities is recommended for further evaluation if clinically indicated. Head CT 01/16/18 00:00 CONCLUSION: 1. No acute findings in the brain. . Foot X-Ray 01/20/18 00:00 CONCLUSION: No acute findings. No evidence of bony destruction or new periosteal reaction. Shunt Study 01/23/18 15:58 CONCLUSION: 1. Uncomplicated evaluation of the fistula as above. 2. The arterial inflow, the proximal outflow from the fistula in the venous outflow centrally all appear adequate. There are some areas of mild narrowing as described above. Purdy Line Insertion 01/26/18 00:00 CONCLUSION: Uncomplicated ultrasound and fluoroscopic guided Purdy catheter placement as above. Chest X-Ray 02/07/18 00:00 CONCLUSION: Cardiomegaly with bibasilar opacity and suspected effusions which may indicate the presence of acute congestive heart failure. Purdy catheter in place. Discharge Plan - Discharge Disposition Patient Disposition: [facility] - Discharge Condition Condition: Stable - Discharge Order Discharge Orders: Discharge Order (Routine); Ordered 02/07/18 Ordered By: Chetan Sosa - Physicians Team Primary Care Provider: Garret Samaniego Attending Provider: Chetan Sosa Other Providers: Richa Gutierrez MD ; Ryan Sampson MD ; Shant Brothers MD ; Remi Jacobs DPM ; Mukesh Rodrigues MD ; Hemant Shell MD ; Maricarmen Vega MD ; [facility] ; Chip Shen MD
--- NOTE | 2018-02-07 14:33 | ECG ---
Date Performed: 02/07/2018 Time Performed: 07:59:06 PTAGE: 72 years EKG: Sinus rhythm WITH FIRST DEGREE AV BLOCK MARKED LEFT AXIS DEVIATION INTRAVENTRICULAR CONDUCTION DELAY Possible ant erior lateral myocardial infarction Possibly paced rhythm Clinical correlation is recommended ABNORMA L ECG PREVIOUS TRACING : 01/31/2018 10.20 DOCTOR: Roberto Merritt Interpretating Date/Time 02/07/2018 14:32:11
--- NOTE | 2018-02-07 14:36 | P.PNVS ---
Subjective Subjective/Hospital Course: Pt well known to me. 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 After a long discussion with the family, they have elected Hospice and I think this is appropriate and reasonable. Ms. Jarrell seems brighter and more comfortable today than I have seen her in days. . Objective Vital Signs / I&O: Vital Signs 02/06/18 16:00 02/06/18 20:00 02/07/18 00:00 Temperature 98.4 F 97.9 F 97.2 F L Pulse Rate 62 57 L 55 L Respiratory Rate 18 18 16 Blood Pressure 125/60 112/57 L 107/53 L Pulse Oximetry 95 95 98 02/07/18 04:00 Temperature 97.7 F Pulse Rate 56 L Respiratory Rate 18 Blood Pressure 112/55 L Pulse Oximetry 98 Intake & Output 02/06/18 02/07/18 02/07/18 18:59 06:59 18:59 Intake Total 820 / 820 100 / 100 Output Total 225 / 225 Balance 820 / 820 -125 / -125 Weight 112.6 kg Intake: IV 100 / 100 100 / 100 Diflucan 200 mg Premix Bag 100 100 / 100 ML @ 100 mls/hr IV.SIG Q24H RICARDO Rx#:[id number] Merrem Inj 1,000 MG In NS Inj 100 / 100 100 ML @ 200 mls/hr IV.SIG Q24H RICARDO Rx#:[id number] Oral 720 / 720 Output: Urine Amount (Catheter) 225 / 225 Indwelling Urethral Catheter 225 / 225 Other: # Voids 0 Date of Last Bowel Movement 02/06/18 # Incontinent Bowel Movements 1 Physical Exam: L hip skin necrosis worse. L foot ok R AKA incision ok R groin incision ok Laboratory Results - last 24 hr 02/06/18 02/06/18 02/07/18 16:53 19:58 06:12 WBC 12.5 H RBC 3.39 L Hgb 9.7 L Hct 30.4 L MCV 89.5 MCH 28.6 MCHC 31.9 L RDW 19.7 H Plt Count 257 MPV 7.9 Neut % (Auto) 65.7 Lymph % (Auto) 13.7 [place] % (Auto) 17.1 H Eos % (Auto) 2.5 Baso % (Auto) 1.0 Neut # (Auto) 8.2 H Lymph # (Auto) 1.7 [place] # (Auto) 2.1 H Eos # (Auto) 0.3 Baso # (Auto) 0.1 WBC Differential . Differential Comment Auto diff final Sodium Potassium Chloride Carbon Dioxide Anion Gap BUN Creatinine Estimated GFR POC Glucose 140 H 163 H Random Glucose Calcium Magnesium Total Creatine Kinase Troponin I 02/07/18 02/07/18 02/07/18 06:12 07:25 08:15 WBC RBC Hgb Hct MCV MCH MCHC RDW Plt Count MPV Neut % (Auto) Lymph % (Auto) [place] % (Auto) Eos % (Auto) Baso % (Auto) Neut # (Auto) Lymph # (Auto) [place] # (Auto) Eos # (Auto) Baso # (Auto) WBC Differential Differential Comment Sodium 138 Potassium 3.8 Chloride 98 Carbon Dioxide 31.4 Anion Gap 9 BUN 30 H Creatinine 3.26 H Estimated GFR 14 L POC Glucose 125 H Random Glucose 124 H Calcium 7.9 L Magnesium 1.7 Total Creatine Kinase Troponin I Cancelled 02/07/18 02/07/18 08:15 11:55 WBC RBC Hgb Hct MCV MCH MCHC RDW Plt Count MPV Neut % (Auto) Lymph % (Auto) [place] % (Auto) Eos % (Auto) Baso % (Auto) Neut # (Auto) Lymph # (Auto) [place] # (Auto) Eos # (Auto) Baso # (Auto) WBC Differential Differential Comment Sodium Potassium Chloride Carbon Dioxide Anion Gap BUN Creatinine Estimated GFR POC Glucose 183 H Random Glucose Calcium Magnesium Total Creatine Kinase 27 Troponin I 0.07 H Microbiology 02/05/18 10:45 Urine Culture - Final Clean Catch Urine No growth in 48 hours Impressions Shunt Study 01/23/18 15:58 CONCLUSION: 1. Uncomplicated evaluation of the fistula as above. 2. The arterial inflow, the proximal outflow from the fistula in the venous outflow centrally all appear adequate. There are some areas of mild narrowing as described above. Chest X-Ray 02/07/18 00:00 CONCLUSION: Cardiomegaly with bibasilar opacity and suspected effusions which may indicate the presence of acute congestive heart failure. Purdy catheter in place. Assessment and Plan - Assessment (1) Peripheral vascular disease of lower extremity with ulceration Code(s): I73.9 - Peripheral vascular disease, unspecified; L97.909 - Non- pressure chronic ulcer of unspecified part of unspecified lower leg with unspecified severity Status: Acute - Plan 72/F s/p R AKA \Agree with Hospital talked with pt, who is appropriately sad but reassured his decision will arrange f/u in 1m he has my numbers if he needs anything. Discharge Planning: D/C planning- [facility] vs SNF
--- NOTE | 2018-02-07 16:25 | P.PNWCN ---
Wound Care Nurse Consult Description: Wound consult ordered by for wound management. Recommendation: 1. Ensure patient has heel protectors on when in bed avoiding contact with surface. 2. Cleanse all wounds with normal saline only.Pat dry 3. Apply Calazime cream in thin layer to periwound. 4. Apply Santyl 2mm thick to L groin left lateral thigh wound base and left medial surgical wound base. 5. Cover with saline moistened gauze cover with ABD secure with rolled gauze and minimal pieces of tape. 6. Sign and date all dressings.Skin prep Right calcaneus and Right 5th digit BID. Additional information: [facility] performed all dressings changes.Patient transferring to [facility] today.Nurses please watch documentation patient no longer has Right 5th digit and heel. Wound/Pressure Injury - Patient Status Premedicated for Pain Prior to Dressing Change: No - Wound Right Foot Surrounding Tissue Appearance: Bright Red Wound Dressing Change Date: 01/13/18 Left Groin Wound Assessment: Ongoing Wound Type: Traumatic Wound Is This a Chronic Wound: Yes Requested from Provider a Wound Care Consult: No (Markus MERCADO, [facility] seen 02/06) Length: 10 Width: 17.3 Depth: 1.0 Wound Bed Appearance: [place], Red Surrounding Tissue Appearance: [place] Surrounding Tissue Temperature: Warm Drainage Description: Serosanguinous Drainage Amount: Minimal Drainage Odor: No Odor Dressing Status: Dry & Intact, Changed Cleansing Solution: Saline Topical: Enzymatic Debridement Ointment Wound Packing Type: Gauze Pads Primary Dressing: Gauze Pad Cover Dressing: Absorbant Pad Tape Type: Elastoplast Wound Dressing Change Date: 02/06/18 Left Thigh Wound Assessment: Ongoing Wound Type: Traumatic Wound Is This a Chronic Wound: No Requested from Provider a Wound Care Consult: No (Markus MERCADO,[facility] seen 02/06) Wound Bed Appearance: Necrotic, [place], Red Surrounding Tissue Appearance: Bright Red Surrounding Tissue Temperature: Warm Drainage Description: Serosanguinous Drainage Amount: Minimal Drainage Odor: No Odor Dressing Status: Dry & Intact Cleansing Solution: Saline Topical: Enzymatic Debridement Ointment Wound Packing Type: Gauze Pads Primary Dressing: Absorbant Pad Cover Dressing: Gauze Pads Tape Type: Paper Left medial surgical Wound Assessment: Ongoing Wound Type: Traumatic Wound Is This a Chronic Wound: No Requested from Provider a Wound Care Consult: No Length: 14.8 Width: 3.9 Depth: 1.6 Wound Bed Appearance: [place] Surrounding Tissue Appearance: Erythema Surrounding Tissue Temperature: Warm Drainage Description: Serosanguinous Drainage Amount: None Drainage Odor: No Odor Dressing Status: Dry & Intact Cleansing Solution: Antibiotic Topical: Enzymatic Debridement Ointment Wound Packing Type: Gauze Pads Primary Dressing: Gauze Roll/Wrap Cover Dressing: Absorbant Pad Tape Type: Paper Wound Dressing Change Date: 02/07/18 Left medial Topical: Enzymatic Debridement Ointment Wound Packing Type: Gauze Pads Primary Dressing: Absorbant Pad Cover Dressing: Absorbant Pad Tape Type: Paper Incision - Patient Status Premedicated for Pain Prior to Dressing Change: No - Incision Right Leg Other Cover Dressing: [place]
== END 2018-02-07 16:58 | disposition hospice, inpatient (51) ==
LOC: NEPC 11:28 → NEDA 11:28 → N07 15:59
PROVIDERS: ADMIT Internal Medicine; ATTEND Internal Medicine
PROC: ANGIOLE (2018-01-18 10:54)